=== PATIENT | female | born 1940 | race Caucasian/White ===

== ENCOUNTER 2023-02-26 08:36 | Outpatient (OUT) | payer MEDICARE, OTHER, SELFPAY ==
--- NOTE | 2023-02-26 09:23 | CA_ITS ---
Patient: JEMIMA BRADFORD Exam Date: 02/26/2023 : 1940 Gender:F Ordering : ARIES LOPEZ Admission #: [id number] Family : Order #: [id number] CLICK HERE TO VIEW EXAM ECHOCARDIOGRAM REPORT PROCEDURE: CA ECHO DOPPLER COMPLETE INDICATIONS: Aortic valve disease (AVR; 23mm Avalus pericardial), CABG, MAZE procedure (11/2019), ablation, breast cancer (05/2020), lumpectomy, radiation (ended 08/19/2020) COMPARISON: None. DESCRIPTION: COMPLETE ECHOCARDIOGRAM Real-time transthoracic echocardiography with 2D, M-mode, spectral and color flow Doppler performed. QUALITY: Technical quality was good. LEFT VENTRICLE: Mild dilatation. Proximal septal hypertrophy (sigmoid septum). LV EF: Normal left ventricular ejection fraction, (>55%). DIASTOLIC: Unable to assess diastolic function. ATRIAL SEPTUM: Visually appears intact. LEFT ATRIUM: Severe dilatation. RIGHT ATRIUM: Moderate dilatation. RIGHT VENTRICLE: Mildly enlarged. Systolic function appears preserved. TRICUSPID VALVE: Normal mobility and thickness. Mild regurgitation. Doppler studies reveal mildly (35-45) elevated right sided pressures. RVSP 35 mmHg MITRAL VALVE: Moderately thickened with decreased mobility. Mild mitral valve stenosis. Moderate mitral annular calcification. Mild mitral regurgitation. AORTIC VALVE: Bio-Prosthetic valve appears well seated in the aortic position with normal Doppler flow. DVI 0.7. Trivial aortic regurgitation. AORTIC ROOT: Normal diameter and appearance. PULMONIC VALVE: Normal thickness and mobility. No stenosis. Trivial regurgitation. PERICARDIUM: No evidence of pericardial effusion. IVC: IVC is normal in size with no collapse. CONCLUSION: 1. Global left ventricular systolic function is normal; visually estimated ejection fraction is 60 to 65%; no significant wall motion abnormalities 2. Unable to assess diastolic function 3. The right ventricle is mildly enlarged with normal systolic function 4. Biatrial enlargement 5. Mild tricuspid regurgitation; mildly elevated right ventricular systolic pressure 6. Mild mitral regurgitation; mild mitral valve stenosis 7. A bioprosthetic aortic valve is seen with normal Doppler flow Adult Echocardiography Procedure Report Left Ventricle LVEDD (3.7 - 5.6 cm): 5.53 cm LVESD (2.2 - 4.0 cm): 4.28 cm LVIVS thickness (0.6 - 1.2 cm): 2.09 cm LVPW thickness (0.5 - 1.0 cm): 1.21 cm LVOT Max Gradient: 5.02 mm[Hg] LVOT Area (cm2): 1.12 m/s Peak Velocity (LVOT): 1.12 m/s Mean Velocity (LVOT): 0.78 m/s LVOT Diameter 1.80 cm Left Atrium LA Volume Index (2D A2C): 50.18 ml/m2 Left Atrium Systolic Dimension: 5.51 cm Mitral Valve MV E to A Ratio: 5.27 Mitral Valve A-Wave Peak Velocity: 0.26 m/s Mitral Valve E-Wave Peak Velocity: 1.38 m/s Right Ventricle Aorta AO Root Diam: 2.98 cm Ascending Ao Diam: 3.04 cm Aortic Valve AoV Area (Peak Roscoe): 1.70 cm2, 1.70 cm2 AoV Area (VTI): 1.75 cm2, 1.75 cm2 Peak Velocity(Antegrade Flow): 1.68 m/s Peak Gradient(Antegrade Flow): 11.30 mm[Hg] Mean Velocity(Antegrade Flow): 1.19 m/s Mean Gradient(Antegrade Flow): 6.30 mm[Hg] Velocity Time Integral: 41.13 cm Tricuspid Valve Peak Velocity (Regurgitant Flow): 2.60 m/s Pulmonic Valve Peak Velocity: 1.20 m/s Peak Gradient: 5.79 mm[Hg], 5.70 mm[Hg] Right Atrium Right Atrium Systolic Pressure: 67.14 ml, 67.14 ml Dictated by: Kendy Wang M.D. on 02/27/2023 at 10:35 Approved by: Kendy Wang M.D. on 02/27/2023 at 10:40
== END 2023-02-26 08:37 | disposition home or self-care (01) ==
LOC: CARD 08:37
PROVIDERS: Visit Provider Nurse Practitioner
DX: I08.3 Combined rheumatic disorders of mitral, aortic and tricuspid valves (principal)
CPT/HCPCS: 93306

== ENCOUNTER 2023-06-26 18:45 | Emergency (ER) | payer MEDICARE, OTHER, SELFPAY ==
[2023-06-26] VITALS (7 sets, daily range): BP systolic 98–112; BP diastolic 54–76; PULSE 62–80; RESP 17–18; TEMP 36.9; O2SAT 97–98
--- NOTE | 2023-06-26 19:10 | ECG_ITS ---
[facility] Test Date: 2023-06-26 Pat Name: JEMIMA BRADFORD Department: Room: - Gender: Female [employer]pper: : 1940 Requested By: [id number] Order Number: [id number] Reading MD: RAIZA CLINTON Measurements Intervals Bude Rate: 67 P: 68 WA: 172 QRS: 46 QRSD: 90 T: 77 QT: 410 QTc: 426 Interpretive Statements 1100 Sinus rhythm 9110 normal ECG No previous ECG available for comparison Electronically Signed On 06-27-2023 7:13:33 EST by RAIZA CLINTON
--- NOTE | 2023-06-26 20:04 | ED_ITS ---
HPI - URI/Sore Throat General Chief Complaint: Upper Respiratory Infection Stated Complaint: SOB COVID + Time Seen by Provider: 06/26/23 19:08 Source: patient and family Limitations: no limitations History of Present Illness HPI Narrative: 83-year-old female with a history of asthma presents for evaluation of headache, body aches, chills and cough. She tested positive for Covid 19. She has had most of the vaccinations but has not had the last vaccination. Her daughter brought her to the emergency department after her father called her stating that he could not get the patient out of bed. The patient states that she took some Tylenol for her headache a while back and her headache is resolving. She has been sipping on 7-Up without recurrent vomiting. Earlier today she cannot keep anything down. She also has some bruising to her right lower extremity after hitting her lower leg on the bed last week. She hit the lower right tibbia- fibula on the bed and bruising has settled down into the foot and ankle area. She has no calf pain or swelling. She is on Eliquis. Related Data Home Medications Medication Instructions Recorded Confirmed anastrozole 1 mg tablet 1 mg PO DAILY 06/26/23 06/26/23 apixaban 5 mg tablet (Eliquis) 5 mg PO DAILY 06/26/23 06/26/23 aspirin 81 mg capsule 81 mg PO DAILY 06/26/23 06/26/23 bumetanide 1 mg tablet 1 mg PO DAILY 06/26/23 06/26/23 esomeprazole magnesium 40 mg 40 mg PO DAILY 06/26/23 06/26/23 capsule,delayed release esomeprazole magnesium 40 mg 40 mg PO DAILY 06/26/23 06/26/23 capsule,delayed release (Nexium) levothyroxine 50 mcg tablet 50 mcg PO DAILY 06/26/23 06/26/23 magnesium 250 mg tablet 250 mg PO DAILY 06/26/23 06/26/23 metoprolol tartrate 50 mg tablet 12.5 mg PO DAILY 06/26/23 06/26/23 (Lopressor) montelukast 10 mg tablet 10 mg PO DAILY 06/26/23 06/26/23 rosuvastatin 40 mg tablet 40 mg PO DAILY 06/26/23 06/26/23 spironolactone 25 mg tablet 25 mg PO DAILY 06/26/23 06/26/23 Allergies Allergy/AdvReac Type Severity Reaction Status Date / Time chlorpromazine Allergy Mild Hives Verified 06/26/23 19:14 [From Thorazine] hylan G-F 20 [From Synvisc] Allergy Mild swelling Verified 06/26/23 19:13 nitrous oxide AdvReac Mild Nausea Verified 06/26/23 19:14 byaxin Allergy Mild Uncoded 06/26/23 19:14 Review of Systems ROS Status of ROS 10 or more systems reviewed and unremark able except as noted in history and below Exam Narrative Exam Narrative: Nurses note and vital signs reviewed and patient is not hypoxic. General: The patient appears well and in no apparent distress. Patient is resting comfortably on cart. Skin: Warm, dry, no pallor noted. There is no rash noted. Head: Normocephalic, atraumatic Eye: Normal conjunctiva, no drainage, EOMI. PERRL Ears, Nose, Mouth, and Throat: Deferred, patient wearing mask Cardiovascular: Regular Rate and Rhythm Ejection murmur grade 2 out of 5, pulses are brisk and equal bilaterally Respiratory: Patient is in no distress, no accessory muscle use, lungs are Clear with occasional expiratory wheezing Back: non-tender, no CVA tenderness bilaterally to percussion. GI: Normal bowel sounds, no tenderness to palpation, no masses appreciated. No rebound, guarding, or rigidity noted. Musculoskeletal: The patient has no evidence of calf tenderness, Pitting edema noted, there is tenderness with bruising to the distal right fibula and lateral malleolus and medial aspect of the midfoot Neurological: A&O x4, normal speech Psychiatric: Cooperative Constitutional Vital Signs, click to edit/add: Last Vital Signs Temp 98.4 F 06/26/23 19:05 Pulse 70 06/26/23 20:04 Resp 18 06/26/23 20:04 BP 104/54 06/26/23 22:36 Pulse Ox 97 06/26/23 20:04 O2 Del Method Room Air 06/26/23 20:04 Course Vital Signs Vital signs: Vital Signs Temperature 98.4 F 06/26/23 19:05 Pulse Rate 62 06/26/23 19:05 Respiratory Rate 18 06/26/23 19:05 Blood Pressure 106/57 06/26/23 19:05 Pulse Oximetry 97 06/26/23 19:05 Oxygen Delivery Method Room Air 06/26/23 19:05 Temperature 98.4 F 06/26/23 19:05 Pulse Rate 70 06/26/23 20:04 Respiratory Rate 18 06/26/23 20:04 Blood Pressure 104/54 06/26/23 22:36 Pulse Oximetry 97 06/26/23 20:04 Oxygen Delivery Method Room Air 06/26/23 20:04 MDM - URI/Sore Throat MDM Narrative Medical decision making narrative: This 83-year-old female with a history of chronic renal disease 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 She tested positive for COVID 19 at home. Her lungs are clear. She have a history of asthma but was not wheezing. Her abdomen was soft. She is not vomiting in the emergency department but had been vomiting earlier in the day and was so weak that she could not get out of bed. She was brought emergency department by private vehicle. Her daughter is at her bedside. EKG done upon arrival was a sinus rhythm with no acute changes. IV was placed and she was medicated with IV fluids and Zofran and Given an albuterol MDI. Routine labs are reviewed. She has a normal white count and hemoglobin. Her creatinine is elevated and consistent with her chronic renal disease. She has an elevated d-dimer and CT of the chest does not show any acute pulmonary embolism but does show chronic changes of her lung resections and some changes in the right middle lobe which could be infectious or part of an atypical inflammatory process. He was given a 1st dose of Zithromax in the e mergency department and will be discharged home with a prescription for Zithromax use for the next 4 days in light of this abnormality in the right lung.I also x-rayed the right lower extremity because the patient had some bruising to the right lower 70 after hitting her leg on her bed frame. On reevaluation she is feeling better and wishes to be discharged home. She does request a prescription for Paxlovid renal dosing. Medical Records Medical records narrative: The [address] [address] XRay Report Signed Patient: JEMIMA BRADFORD MR#: [id number] : 1940 Acct:[id number] Age/Sex: 83 / F ADM Date: 06/26/23 Loc: ER Attending Dr: Ordering Physician: Karla Grace Date of Service: 06/26/23 Procedure(s): XR tibia fibula RT 2V Accession Number(s): [id number] cc: Karla Grace; Physician,Non-Staff Alfred~ [facility] [place] [id number] Patient Name: JEMIMA BRADFORD MRN: [id number] date: 1940 Sex: F Assigned Patient Location: ER Current Patient Location: ER Accession/Order Number: [id number] Exam Date: 06/26/2023 22:05 Report Date: 06/26/2023 22:27 At the request of: KARLA GRACE Procedure: XR tibia fibula RT 2V EXAM: XR tibia fibula RT 2V HISTORY: Leg pain COMPARISON: None. TECHNIQUE: 4 views FINDINGS: Status post long stem total knee replacement arthroplasty. The visualized prosthesis exhibits no abnormality. No lucency at the bone cement or cement prosthetic interfaces. No fracture, dislocation, subluxation or lesion of the osseous structures. The hindfoot joint spaces are unremarkable for patient's age. XR/XR tibia fibula RT 2V IMPRESSION: [place] [address] CT Scan Report Signed Patient: JEMIMA BRADFORD MR#: [id number] : 1940 Acct:[id number] Age/Sex: 83 / F ADM Date: 06/26/23 Loc: ER Attending Dr: Ordering Physician: Karla Grace Date of Service: 06/26/23 Procedure(s): CT angio chest Accession Number(s): [id number] cc: Physician,Non-Staff MKulwinder~ [facility] [place] [id number] Patient Name: JEMIMA BRADFORD MRN: [id number] date: 1940 Sex: F Assigned Patient Location: ER Current Patient Location: ER Accession/Order Number: [id number] Exam Date: 06/26/2023 21:50 Report Date: 06/26/2023 22:37 At the request of: KARLA MARKER Procedure: CT angio chest EXAM: CT angio chest TECHNIQUE: CT angiogram with contrast performed of the chest including multi planar reformatted images and maximum intensity projection images. 3-D volume rendering was created. Dose reduction techniques were achieved by using automated exposure control and/or adjustment of mA and/or kV according to patient size and/or use of iterative reconstruction technique. HISTORY: Covid positive yesterday. Headache. Weakness. Nausea, fatigue and fever. R/O PE COMPARISON: PET scan 04/11/2022 FINDINGS: Neck and Axilla: No lower neck or axillary lymphadenopathy. Mediastinum and Diamond: No hilar or mediastinal lymphadenopathy. Heart and Major Vessels: Coronary calcification. Atrial appendage clip noted. No pericardial effusion. 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 Thoracic aorta is normal caliber. Lung Alexis: Prior partial left pneumonectomy. Linear atelectasis and/or scarring in the lower lobes and right middle lobe. Mild hazy airspace opacity medially in the right middle lobe. Lung field evaluation is limited by breathing motion artifact. Pleural Spaces: No significant pleural effusion. No pneumothorax. Upper Abdomen: No acute abnormality identified. Chest Wall: No acute abnormality. CT/CT angio chest IMPRESSION: No evidence for acute pulmonary embolus. Small hazy airspace opacity medially in the right middle lobe. This is nonspecific but could represent an atypical inflammatory or infectious process. Electronically authenticated by: TAVARES PAYTON Date: 06/26/2023 22:37 Lab Data Labs: Lab Results 06/26/23 Range/Units 19:50 WBC 9.4 (4.0-11.0) 10^3/uL RBC 4.51 (4.20-5.40) 10^6/uL Hgb 12.8 (12.0-16.0) g/dL Hct 40.8 (36.0-48.0) % MCV 90.5 (81.0-99.0) fL MCH 28.4 (26.7-34.0) pg MCHC 31.4 (29.9-35.2) g/dL RDW 16.1 H (11.0-15.0) % Plt Count 135 L (150-450) 10^3/uL MPV 11.0 (9.5-13.5) fL Neut % (Auto) 75.7 H (43.0-75.0) % Lymph % (Auto) 10.7 L (20.5-60.0) % [place] % (Auto) 12.4 H (1.7-12.0) % Eos % (Auto) 0.3 L (0.9-7.0) % Baso % (Auto) 0.5 (0.2-2.0) % Neut # (Auto) 7.1 H (1.4-6.5) 10^3/uL Lymph # (Auto) 1.0 L (1.2-3.8) 10^3/uL [place] # (Auto) 1.2 H (0.3-0.8) 10^3/uL Eos # (Auto) 0.0 (0.0-0.7) 10^3/uL Baso # (Auto) 0.1 (0.0-0.1) 10^3/uL Abs Immat Gran (auto) 0.04 H (0.00-0.03) 10^3/uL Imm/Tot Granulo (auto) 0.4 (0.0-0.5) % D-Dimer 1.25 H* (<=0.59) mg/L FEU Sodium 137 (136-145) mmol/L Potassium 3.4 L (3.5-5.1) mmol/L Chloride 101 (98-107) mmol/L Carbon Dioxide 27.5 (21.0-32.0) mmol/L Anion Gap 11.9 BUN 23.0 H (7.0-18.0) mg/dL Creatinine 1.47 H (0.55-1.02) mg/dL Est GFR ( Amer) 41 L (>=60) Est GFR (Non-Af Amer) 34 L (>=60) BUN/Creatinine Ratio 15.6 Glucose 117 H (74-106) mg/dL Calcium 9.6 (8.5-10.1) mg/dL Total Bilirubin 0.6 (0.2-1.0) mg/dL AST 22 (15-37) U/L ALT 21 (14-59) U/L Alkaline Phosphatase 93 (46-116) U/L Troponin I High Sens 12.8 (4.0-51.3) pg/mL NT-Pro-B Natriuret Pep 1178.0 (<=1800.0) pg/mL Total Protein 7.5 (6.4-8.2) g/dL Albumin 3.7 (3.4-5.0) g/dL Globulin 3.8 g/dL Albumin/Globulin Ratio 1.0 ECG Data Attestation: I personally reviewed and interpreted this ECG as follows: (Sinus rhythm at 67 beats for minute, normal axis, normal intervals, no acute ST segment elevation or T-wave inversion) Discharge Plan Discharge Chief Complaint: Upper Respiratory Infection Clinical Impression: COVID-19, Chronic renal disease Patient Disposition: Home, Self-Care Time of Disposition Decision: 22:54 Condition: Good Prescriptions / Home Meds: No Action metoprolol tartrate [Lopressor] 50 mg tablet 12.5 mg PO DAILY anastrozole 1 mg tablet 1 mg PO DAILY Eliquis 5 mg tablet 5 mg PO DAILY bumetanide 1 mg tablet 1 mg PO DAILY esomeprazole magnesium 40 mg capsule,delayed release(DR/EC) 40 mg PO DAILY levothyroxine 50 mcg tablet 50 mcg PO DAILY montelukast 10 mg tablet 10 mg PO DAILY rosuvastatin 40 mg tablet 40 mg PO DAILY spironolactone 25 mg tablet 25 mg PO DAILY esomeprazole magnesium [Nexium] 40 mg capsule,delayed release(DR/EC) 40 mg PO DAILY aspirin 81 mg capsule 81 mg PO DAILY magnesium 250 mg tablet 250 mg PO DAILY Instructions: Chronic Kidney Disease (ED), COVID-19 (Coronavirus Disease 2019) (ED), COVID-19 and Chronic Health Conditions (ED), COVID-19: Slow the Coronavirus Spread (ED) Stand Alone Forms: Portal Instructions Referrals: Physician,Non-Staff, MD [Primary Care Provider] - 1 week
[2023-06-26] MEDS: 0.9 % SODIUM CHLORIDE 1,000 ML 1000 ML IV (20:17)
[2023-06-26] MEDS: ONDANSETRON PF 4 MG/2 ML VIAL IV (20:18)
[2023-06-26] MEDS: ALBUTEROL SULFATE 200 PUFF/6.7 GM INHALER IH (20:23)
[2023-06-26 20:55] LABS: Troponin I High Sensitivity 12.8 pg/mL (4.0-51.3)
--- NOTE | 2023-06-26 20:56 | XR_ITS ---
[facility] [place] [id number] Patient Name: JEMIMA BRADFORD MRN: [id number] date: 1940 Sex: F Assigned Patient Location: ER Current Patient Location: ER Accession/Order Number: [id number] Exam Date: 06/26/2023 22:05 Report Date: 06/26/2023 22:27 At the request of: LAUREN MARKER Procedure: XR tibia fibula RT 2V EXAM: XR tibia fibula RT 2V HISTORY: Leg pain COMPARISON: None. TECHNIQUE: 4 views FINDINGS: Status post long stem total knee replacement arthroplasty. The visualized prosthesis exhibits no abnormality. No lucency at the bone cement or cement prosthetic interfaces. No fracture, dislocation, subluxation or lesion of the osseous structures. The hindfoot joint spaces are unremarkable for patient's age. XR/XR tibia fibula RT 2V IMPRESSION: No visualized abnormality Electronically authenticated by: DYANA MORGAN Date: 06/26/2023 22:27
[2023-06-26 21:01] LABS: D Dimer 1.25 mg/L FEU (<=0.59)
[2023-06-26 21:12] LABS: Basophils Absolute Auto 0.1 10^3/uL (0.0-0.1); Basophils Percent Auto 0.5 % (0.2-2.0); Eosinophils Percent Auto 0.3 % (0.9-7.0); Hematocrit 40.8 % (36.0-48.0); Hemoglobin 12.8 g/dL (12.0-16.0); Immature Granulocytes Abs Auto 0.04 10^3/uL (0.00-0.03); Immature Granulocytes Pct Auto 0.4 % (0.0-0.5); Lymphocytes Percent Auto 10.7 % (20.5-60.0); Mean Corpuscular HGB Conc 31.4 g/dL (29.9-35.2); Mean Corpuscular Hemoglobin 28.4 pg (26.7-34.0); Mean Corpuscular Volume 90.5 fL (81.0-99.0); Monocytes Absolute Auto 1.2 10^3/uL (0.3-0.8); Monocytes Percent Auto 12.4 % (1.7-12.0); Neutrophils Absolute Auto 7.1 10^3/uL (1.4-6.5); Neutrophils Percent Auto 75.7 % (43.0-75.0); Platelet Count 135 10^3/uL (150-450); Red Blood Count 4.51 10^6/uL (4.20-5.40); Red Cell Distribution Width 16.1 % (11.0-15.0); White Blood Count 9.4 10^3/uL (4.0-11.0)
--- NOTE | 2023-06-26 21:22 | CT_ITS ---
[address] [address] Patient Name: JEMIMA BRADFORD MRN: [id number] date: 1940 Sex: F Assigned Patient Location: ER Current Patient Location: Accession/Order Number: [id number] Exam Date: 06/26/2023 21:50 Report Date: 06/26/2023 22:37 At the request of: LAUREN MARKER Procedure: CT angio chest EXAM: CT angio chest TECHNIQUE: CT angiogram with contrast performed of the chest including multi planar reformatted images and maximum intensity projection images. 3-D volume rendering was created. Dose reduction techniques were achieved by using automated exposure control and/or adjustment of mA and/or kV according to patient size and/or use of iterative reconstruction technique. HISTORY: Covid positive yesterday. Headache. Weakness. Nausea, fatigue and fever. R/O PE COMPARISON: PET scan 04/11/2022 FINDINGS: Neck and Axilla: No lower neck or axillary lymphadenopathy. Mediastinum and Diamond: No hilar or mediastinal lymphadenopathy. Heart and Major Vessels: Coronary calcification. Atrial appendage clip noted. No pericardial effusion. 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 Thoracic aorta is normal caliber. Lung Alexis: Prior partial left pneumonectomy. Linear atelectasis and/or scarring in the lower lobes and right middle lobe. Mild hazy airspace opacity medially in the right middle lobe. Lung field evaluation is limited by breathing motion artifact. Pleural Spaces: No significant pleural effusion. No pneumothorax. Upper Abdomen: No acute abnormality identified. Chest Wall: No acute abnormality. CT/CT angio chest IMPRESSION: No evidence for acute pulmonary embolus. Small hazy airspace opacity medially in the right middle lobe. This is nonspecific but could represent an atypical inflammatory or infectious process. Electronically authenticated by: TAVARES PAYTON Date: 06/26/2023 22:37
[2023-06-26 21:27] LABS: Alanine Aminotransferase 21 U/L (14-59); Albumin Level 3.7 g/dL (3.4-5.0); Alkaline Phosphatase 93 U/L (46-116); Anion Gap 11.9; Aspartate Amino Transferase 22 U/L (15-37); BUN Creatinine Ratio 15.6; Bilirubin Total 0.6 mg/dL (0.2-1.0); Calcium 9.6 mg/dL (8.5-10.1); Carbon Dioxide 27.5 mmol/L (21.0-32.0); Chloride 101 mmol/L (98-107); Estimated GFR (African America 41 (>=60); Estimated GFR (Non-African Ame 34 (>=60); Globulin 3.8 g/dL; Glucose 117 mg/dL (74-106); Potassium 3.4 mmol/L (3.5-5.1); Sodium 137 mmol/L (136-145); Total Protein 7.5 g/dL (6.4-8.2)
[2023-06-26] MEDS: 0.9 % SODIUM CHLORIDE 1,000 ML 125 ML IV (22:39)
[2023-06-26] MEDS: AZITHROMYCIN 250 MG TABLET 500 MG PO (23:40)
== END 2023-06-26 23:47 | disposition home or self-care (01) ==
PROVIDERS: Emergency Provider Emergency Medicine
DX: U07.1 COVID-19 (principal); R06.02 Shortness of breath; Z28.311 Partially vaccinated for COVID-19; Z79.82 Long term (current) use of aspirin; Z79.899 Other long term (current) drug therapy; N18.9 Chronic kidney disease, unspecified; Z85.118 Personal history of other malignant neoplasm of bronchus and lung; R42 Dizziness and giddiness; J45.909 Unspecified asthma, uncomplicated; R79.89 Other specified abnormal findings of blood chemistry
CPT/HCPCS: 36415; 71275; 73590; 80053; 83880; 84484; 85025; 85378; 93005; 94640; 96361; 96374; 99285; Q9967

== ENCOUNTER 2023-09-18 09:58 | Outpatient (OUT) | payer MEDICARE, OTHER, SELFPAY ==
[2023-09-18 11:09] LABS: Anion Gap 12.8; BUN Creatinine Ratio 18.4; Carbon Dioxide 29.6 mmol/L (21.0-32.0); Chloride 105 mmol/L (98-107); Estimated GFR (African America 45 (>=60); Estimated GFR (Non-African Ame 37 (>=60); Glucose 105 mg/dL (74-106); Potassium 4.4 mmol/L (3.5-5.1); Sodium 143 mmol/L (136-145)
[2023-09-18 11:11] LABS: Creatinine Urine Random 35.33 mg/dL (20.00-300.00); Total Protein Urine Random <6.0 mg/dL (<=11.9)
[2023-09-19 13:08] LABS: PTH, Intact 87 pg/mL (15-65)
[2023-09-19 15:08] LABS: Calcium, Ionized, Serum 5.1 mg/dL (4.5-5.6)
== END 2023-09-18 09:59 | disposition home or self-care (01) ==
LOC: LAB 09:59
DX: N18.30 Chronic kidney disease, stage 3 unspecified (principal)
CPT/HCPCS: 36415; 80048; 82306; 82330; 82570; 83970; 84156

== ENCOUNTER 2023-10-29 09:07 | Outpatient (OUT) | payer MEDICARE, OTHER, SELFPAY ==
--- NOTE | 2023-10-29 09:00 | CA_ITS ---
Patient Name: JEMIMA BRADFORD MR#: [id number] : 1940 Exam Date: 10/29/2023 Ordering Doctor: Cameron Pappas ECHOCARDIOGRAM REPORT PROCEDURE: CA ECHO DOPPLER COMPLETE INDICATIONS: AVR 23mm Avalus pericardial, CABG, MAZE procedure, ablations COMPARISON: None. DESCRIPTION: COMPLETE ECHOCARDIOGRAM Real-time transthoracic echocardiography with 2D, M-mode, spectral and color flow Doppler performed. QUALITY: Technical quality was good. 65 , 187#, BSA 1.92 m2 ,BP 138/64 LEFT VENTRICLE: Normal chamber size. Mildly increased left ventricular wall thickness with sigmoid septum. LV EF: Global left ventricular systolic function is normal; visually estimated ejection fraction is 55 to 60%. No obvious wall motion abnormalities. DIASTOLIC: Unable to assess diastolic function. ATRIAL SEPTUM: Visually appears intact. LEFT ATRIUM: Severe dilatation. RIGHT ATRIUM: Mild dilatation. RIGHT VENTRICLE: Normal chamber size. Right ventricular systolic function is reduced. TRICUSPID VALVE: Normal mobility and thickness. Mild regurgitation. Doppler studies reveal mildly (35-45) elevated right sided pressures. RVSP 35 mmHg MITRAL VALVE: Moderately thickened with decreased mobility. Moderate mitral annular calcification. Trivial mitral regurgitation. MVA 2.1 cm2 AORTIC VALVE: Bio-Prosthetic valve appears well seated in the aortic position with normal Doppler flow. No aortic regurgitation. AORTIC ROOT: Normal diameter and appearance. PULMONIC VALVE: Normal thickness and mobility. No stenosis. Trivial regurgitation. PERICARDIUM: No evidence of pericardial effusion. IVC: IVC does not collapse. CONCLUSION: 1. Global left ventricular systolic function is normal; visually estimated ejection fraction is 55 to 60% 2. The right ventricle is normal in size with reduced systolic function 3. Biatrial enlargement 4. Mild tricuspid regurgitation; mildly elevated right ventricular systolic pressure 5. A bioprosthetic aortic valve is seen with normal Doppler flow Adult Echocardiography Procedure Report Left Ventricle LVEDD (3.7 - 5.6 cm): 4.72 cm LVESD (2.2 - 4.0 cm): 2.71 cm LVIVS thickness (0.6 - 1.2 cm): 1.81 cm LVPW thickness (0.5 - 1.0 cm): 1.02 cm e': 0.14 m/s E - e': 8.76 LVOT Max Gradient: 3.12 mm[Hg] LVOT Area (cm2): 0.88 m/s Peak Velocity (LVOT): 0.88 m/s Mean Velocity (LVOT): 0.58 m/s LVOT Diameter 2.09 cm Left Atrium Left Atrium Systolic Dimension: 5.19 cm Mitral Valve MV E to A Ratio: 3.34 Mitral Valve A-Wave Peak Velocity: 0.35 m/s Mitral Valve E-Wave Peak Velocity: 1.18 m/s Right Ventricle Aorta AO Root Diam: 3.31 cm Aortic Valve AoV Area (Peak Roscoe): 1.95 cm2, 1.95 cm2 AoV Area (VTI): 2.40 cm2, 2.40 cm2 Peak Velocity(Antegrade Flow): 1.55 m/s Peak Gradient(Antegrade Flow): 9.57 mm[Hg] Mean Velocity(Antegrade Flow): 0.93 m/s Mean Gradient(Antegrade Flow): 4.28 mm[Hg] Velocity Time Integral: 31.75 cm Tricuspid Valve Peak Velocity (Regurgitant Flow): 2.09 m/s, 2.60 m/s Pulmonic Valve Peak Gradient: 5.88 mm[Hg], 6.63 mm[Hg] Right Atrium Dictated by: Kendy Wang M.D. on 10/31/2023 at 14:16 Approved by: Kendy Wang M.D. on 10/31/2023 at 14:22
== END 2023-10-29 09:08 | disposition home or self-care (01) ==
LOC: CARD 09:07
PROVIDERS: Visit Provider Internal Medicine Cardiovascular Disease
DX: I08.0 Rheumatic disorders of both mitral and aortic valves (principal)
CPT/HCPCS: 93306

== ENCOUNTER 2023-11-21 12:28 | Outpatient (OUT) | payer MEDICARE, OTHER, SELFPAY ==
[2023-11-21 14:46] LABS: Anion Gap 12.4; BUN Creatinine Ratio 16.9; Calcium 9.9 mg/dL (8.5-10.1); Carbon Dioxide 30.2 mmol/L (21.0-32.0); Chloride 102 mmol/L (98-107); Estimated GFR (African America 48 (>=60); Estimated GFR (Non-African Ame 39 (>=60); Glucose 85 mg/dL (74-106); Potassium 3.6 mmol/L (3.5-5.1); Sodium 141 mmol/L (136-145)
== END 2023-11-21 12:29 | disposition home or self-care (01) ==
LOC: LAB 12:30
DX: Z01.89 Encounter for other specified special examinations (principal); N18.9 Chronic kidney disease, unspecified; D63.1 Anemia in chronic kidney disease; E55.9 Vitamin D deficiency, unspecified
CPT/HCPCS: 36415; 80048

== ENCOUNTER 2024-02-11 14:59 | Outpatient (OUT) | payer MEDICARE, OTHER, SELFPAY ==
[2024-02-11 16:09] LABS: Creatinine Urine Random 32.12 mg/dL (20.00-300.00); Protein Creatinine Ratio Urine 0.21; Total Protein Urine Random 6.8 mg/dL (<=11.9)
[2024-02-11 16:22] LABS: BUN Creatinine Ratio 16.2; Calcium 8.8 mg/dL (8.5-10.1); Chloride 103 mmol/L (98-107); Estimated GFR (African America 54 (>=60); Estimated GFR (Non-African Ame 44 (>=60); Glucose 134 mg/dL (74-106); Sodium 141 mmol/L (136-145)
== END 2024-02-11 15:00 | disposition home or self-care (01) ==
LOC: LAB 15:01
DX: Z01.89 Encounter for other specified special examinations (principal); N18.9 Chronic kidney disease, unspecified; D63.1 Anemia in chronic kidney disease; E55.9 Vitamin D deficiency, unspecified
CPT/HCPCS: 36415; 80048; 82570; 84156

== ENCOUNTER 2024-07-08 12:40 | Outpatient (OUT) | payer MEDICARE, OTHER, SELFPAY ==
[2024-07-08 13:24] LABS: Anion Gap 13.8; BUN Creatinine Ratio 20.3; Calcium 9.6 mg/dL (8.5-10.1); Carbon Dioxide 31.6 mmol/L (21.0-32.0); Chloride 101 mmol/L (98-107); Creatinine Urine Random 226.64 mg/dL (20.00-300.00); Estimated GFR (African America 38 (>=60 mL/min/1.73m^2); Estimated GFR (Non-African Ame 31 (>=60 mL/min/1.73m^2); Glucose 128 mg/dL (74-106); Potassium 3.4 mmol/L (3.5-5.1); Sodium 143 mmol/L (136-145); Total Protein Urine Random 33.6 mg/dL (<=11.9)
== END 2024-07-08 12:41 | disposition home or self-care (01) ==
LOC: LAB 12:41
DX: N18.30 Chronic kidney disease, stage 3 unspecified (principal)
CPT/HCPCS: 36415; 80048; 82570; 84156

== ENCOUNTER 2024-11-10 09:43 | Outpatient (OUT) | payer MEDICARE, OTHER, SELFPAY ==
--- NOTE | 2024-11-10 09:00 | CA_ITS ---
Patient Name: JEMIMA BRADFORD MR#: [id number] : 1940 Exam Date: 11/10/2024 Ordering Doctor: SHARLA DE OLIVEIRA CORRECTION Corrected on: 11/16/2024; ECHOCARDIOGRAM REPORT PROCEDURE: CA ECHO DOPPLER COMPLETE INDICATIONS: Aortic valve stenosis COMPARISON: None. DESCRIPTION: COMPLETE ECHOCARDIOGRAM Real-time transthoracic echocardiography with 2D, M-mode, spectral and color flow Doppler performed. QUALITY: Technical quality was good. LEFT VENTRICLE: Normal chamber size. Thickened septal wall (1.6 cm). No significant left ventricular outflow obstruction. Normal systolic function. LV EF: Normal left ventricular ejection fraction, (65-70%). DIASTOLIC: ATRIAL SEPTUM: Visually appears intact. LEFT ATRIUM: Severe dilatation. RIGHT ATRIUM: Mild dilatation. RIGHT VENTRICLE: Normal chamber size. Normal right ventricular systolic function. TRICUSPID VALVE: Normal mobility and thickness. No stenosis with mild regurgitation. Doppler studies reveal moderately (45-60) elevated right sided pressures. RVSP 52 mmHg MITRAL VALVE: Mildly thickened with normal mobility. Mild mitral valve stenosis. MVA by PHT is 1.93 cm2. Moderate mitral annular calcification. Trivial mitral regurgitation. AORTIC VALVE: Normal trileaflet appearance. No visible sclerosis. Normal leaflet mobility. No evidence of aortic valve stenosis. No aortic regurgitation. AORTIC ROOT: Normal diameter and appearance. PULMONIC VALVE: Normal thickness and mobility. No stenosis. Trivial regurgitation. PERICARDIUM: No evidence of pericardial effusion. IVC: IVC is dilated (2.2 cm), does not fully collapse. PLEURA: CONCLUSION: 1. Moderate concentric left ventricular hypertrophy with increased thickness of the basal septum. No left ventricular outflow tract obstruction is seen. LVEF is 65-70%. 2. Normal right ventricular size and systolic function. 3. No aortic valve stenosis. 4. Mild mitral valve stenosis. 5. Severely dilated left atrium. 6. Mild tricuspid regurgitation. 7. Moderately elevated right sided pressures. RVSP is 52 mmHg. Adult Echocardiography Procedure Report Left Ventricle LVEDD (3.7 - 5.6 cm): 3.95 cm LVESD (2.2 - 4.0 cm): 2.60 cm LVIVS thickness (0.6 - 1.2 cm): 1.60 cm LVPW thickness (0.5 - 1.0 cm): 1.12 cm LVOT Max Gradient: 8.76 mm[Hg] LVOT Area (cm2): 1.48 m/s Peak Velocity (LVOT): 1.48 m/s Mean Velocity (LVOT): 1.08 m/s LVOT Diameter 1.86 cm Left Atrium LA Volume Index (2D A2C): 56.88 ml/m2 Left Atrium Systolic Dimension: 4.41 cm Mitral Valve MV E to A Ratio: 2.83 Mitral Valve A-Wave Peak Velocity: 0.50 m/s Mitral Valve E-Wave Peak Velocity: 1.41 m/s Right Ventricle Aorta AO Root Diam: 2.87 cm Aortic Valve AoV Area (Peak Roscoe): 1.95 cm2, 1.95 cm2 AoV Area (VTI): 1.86 cm2, 1.86 cm2 Peak Velocity(Antegrade Flow): 2.08 m/s, 1.79 m/s Peak Gradient(Antegrade Flow): 17.24 mm[Hg], 12.88 mm[Hg] Mean Velocity(Antegrade Flow): 1.39 m/s, 1.23 m/s Mean Gradient(Antegrade Flow): 9.13 mm[Hg], 6.93 mm[Hg] Velocity Time Integral: 51.47 cm, 45.14 cm Tricuspid Valve Peak Velocity (Regurgitant Flow): 2.54 m/s, 3.04 m/s Pulmonic Valve Mean Gradient: 5.47 mm[Hg] Mean Velocity: 1.09 m/s Peak Velocity: 1.65 m/s, 1.39 m/s Peak Gradient: 7.68 mm[Hg], 10.91 mm[Hg] Right Atrium Right Atrium Systolic Pressure: 68.83 ml, 68.83 ml Dictated by: Storm Blunt M.D. on 11/11/2024 at 14:53 Approved by: Storm Blunt M.D. on 11/11/2024 at 15:00 Dictated by: Storm Blunt M.D. on 11/16/2024 at 17:25 Approved by: Storm Blunt M.D. on 11/16/2024 at 17:25
== END 2024-11-10 09:44 | disposition home or self-care (01) ==
LOC: CARD 09:43
PROVIDERS: Visit Provider Internal Medicine Cardiovascular Disease
DX: I08.0 Rheumatic disorders of both mitral and aortic valves (principal); Z95.2 Presence of prosthetic heart valve
CPT/HCPCS: 93306

== ENCOUNTER 2024-11-19 09:44 | Outpatient (OUT) | payer MEDICARE, OTHER, SELFPAY ==
--- OUTSIDE RECORDS SUMMARY | 2023-06-26 15:00 | XMS_ITS ---
Author Organization [facility] Address [address] [place] [address] Care Team Providers Care Outpatient Coding Specialist Name Role Phone [facility], [facility] Unavailable [phone] REASON FOR VISIT COVID-19 Encounters Encounter Location Date Provider Diagnosis [facility] [address] [place] [address] 06/26/2023 [facility] Plan Of Treatment No Information Progress Notes * Lisa KENNYDOB:1940 (84 yo F)Acc No.[id number]:06/26/2023 IMPORT Patient: Lisa ARAIZA Provider: Abida KEVIN :1940 A ge:83 Y S ex:Female Date:06/26/2023 Phone: Address:[address] [place] [facility] Subjective: * Chief Complaints: * 1 . COVID-19. * Medical History: Objective: * Vitals: Assessment: Plan: * Treatment: * Billing Information: * Visit Code: * Procedure Codes: * Electronic signature of [facility] on 11/19/2024 at 09:47 AM EDT Sign off status: Pending * Provider: Abida DEAL [facility] Date: 1 08/27/2022 Generated for Herman flores/Waldemar/eTransmitting on: 0 11/19/2024 09:47 AM EDT
--- OUTSIDE RECORDS SUMMARY | 2024-11-05 10:30 | XMS_ITS | Encounter Summary ---
Author Organization [facility] Address [address] [place] [address] Care Team Providers Care Armature Inspector Name Role Phone Soraida Sethi MD Primary Care Provider [phone] Reason for Visit * Reason Comments Skin Check Encounter Details Date Type Department Care Team (Late st Contact Info) Description 11/05/2024 10:30 AM EDT Office Visit [facility] [address] [facility] [address] [place] [address] Dior Durand MD [address] [facility] [address] [place] [address] Seborrheic keratosis (Primary Dx); Lentigines; Angioma of skin; Capillary angioma; Seborrheic keratosis, inflamed Social History Tobacco Use Types Packs/Day Years Used Date Smoking Tobacco: Former Cigarettes Smokeless Tobacco: Never Alcohol Use Standard Drinks/Week Comments Never 0 (1 standard drink = 0.6 oz pur e alcohol) Comments No Sex and Gender Information Value Date Recorded Sex Assigned at Not on file Legal Sex Female 6:55 PM EDT Gender Identity Not on file Sexual Orientation Not on file documented as of this encounter Progress Notes * Dior Durand MD - 11/05/2024 10:30 AM EDT Skin Check Location: Patient requests a skin examination from the waist up Dermatologic history: no history of skin cancer, no family history of melanoma Last visit: 1 year ago Established patient Lesions: Location: face, neck and back Duration: year ago Quality: itchy Modifying factors: none Associated symptoms: rough Treatments: used OTC freeze off (neck) All pertinent medical history, medications, and allergies were reviewed. General Exam: alert, oriented to person, place, and time, normal affect, well appearing Unaccompanied A complete skin exam was offered, pt declined. Areas not examined despite medical recommendation: From the waist down Scalp, Examined Head, Face Examined Neck Examined Chest Examined Back Examined Abdomen Examined Right arm Examined Left arm Examined Hands Examined Digits,nails: Examined Patient wearing nail emirati, Denies dark streaks under finger nails Lymphatics: Not examined Skin Exam 1. SEBORRHEIC KERATOSIS (5) Chest (Upper Torso, Anterior), Head - Anterior (Face), Left Arm, Right Arm, Torso - Posterior (Back) Stuck on verrucous, davila-brown papules and plaques. Patient was counseled regarding these benign growths. Removal is normally not necessary, but they may be removed if they are symptomatic or for cosmetic reasons. 2. LENTIGINES Head - Anterior (Face) Scattered davila macules in sun-exposed areas. The patient was informed that lentigines are benign pigmented lesions that occur on sun-exposed andsun-damaged skin. No treatment is necessary. Recommended regular use of broad spectrum sunscreen SPF 30 or higher 3. ANGIOMA OF SKIN Generalized Scattered schultz-red papule(s). The patient was informed that angiomas are benign growths on the the skin. No treatment is necessary. 4. CAPILLARY ANGIOMA Left Buccal Cheek Scattered schultz-red papule(s). The patient was informed that angiomas are benign growths on the the skin. No treatment is necessary. 5. SEBORRHEIC KERATOSIS, INFLAMED (9) Left Flank, Left Lower Back (2), Left Congregation, Neck - Anterior, Neck - Posterior (4) Ulen and brown stuck on verrucous scaly papule with surrounding erythema The patient was informed that symptomatic seborrheic keratoses are benign growths that become inflamed, itchy, tender, traumatized, caught on clothing, or bleed. Symptomatic lesions can be treated with cryotherapy or curretage. Thicker lesions treated with cryotherapy may require more than one treatment. The patient was instructed to notify the office if abnormal redness or tenderness develops atthe treatment site. Cryotherapy today, see procedure note. Diagnosis: Inflamed seborrheic keratosis Indication: Inflamed Consent: Verbal consent was obtained and risks were discussed, including, but not limited to risks of scarring, darker or waterside worker pigmentary changes, recurrence, incomplete removal and infection. Method: Liquid nitrogen was used to treat the lesion(s) with two 5-10 second freeze-thaw cycles Number of lesions treated: 9 Post-procedure instructions: Instructions were given orally and in writing. The office will be contacted if the lesion fails to resolve despite treatment, or if a side effect develops such as abnormal crusting, scabbing, redness or tenderness Cryotherapy, skin lesion - Left Flank, Left Lower Back (2), Left Congregation, Neck - Anterior, Neck - Posterior (4) Next Visit: 1 year skin exam documented in this encounter Plan of Treatment Upcoming Encounters Date Type Department Care Team (Late st Contact Info) Description 02/18/2025 10:45 AM EDT Office Visit [facility] [address] [phone] Fred Frey, DO [address] [facility] [address] [place] [address] 11/09/2025 10:15 AM EDT Office Visit [facility] [address] [facility] [address] [place] [id number] Dior Durand MD [address] [facility] [address] [place] [address] documented as of this encounter Procedures Procedure Name Priority Date/Time Associated Diagnosis Comments CRYOTHERAPY SKIN LESION Routine 11/06/19 10:47 AM EDT Seborrheic keratosis, inflamed documented in this encounter Results * Cryotherapy, skin lesion (11/05/2024 10:47 AM EDT) us Dior Durand MD DERM PROCEDURE ORDERABLES Fin al Result documented in this encounter Visit Diagnoses Diagnosis Seborrheic keratosis- Primary Lentigines Angioma of skin Capillary angioma Nevus, non-neoplastic Seborrheic keratosis, inflamed documented in this encounter Care Teams Armature Inspector Relationship Specialty Start Date End Date Soraida Sethi MD [address] [place], [place] [id number] PCP - General Family Medicine 01/15/23 documented as of this encounter
--- OUTSIDE RECORDS SUMMARY | 2024-11-19 09:00 | XMS_ITS | Encounter Summary ---
Author Organization [facility] Address [address] [place] [address] Care Team Providers Care Top Waddy Name Role Phone Jasmyne Casillas MD Primary Care Provider [phone] Encounter Details Date Type Department Care Team (Late st Contact Info) Description 11/19/2024 9:00 AM EDT Office Visit [facility] Heart at [facility] [address] [place] [address] Kendy Wang MD [address] [facility] [place] [place] [address] Coronary arteriosclerosis (Primary Dx); Mitral valve problem; Nonrheumatic aortic valve stenosis; Atypical atrial flutter (CMS/HCC); History of aortic valve replacement; Aortic valve disorder; Shortness of breath Social History Tobacco Use Types Packs/Day Years Used Date Smoking Tobacco: Former Cigarettes 1 1972 Smokeless Tobacco: Never Alcohol Use Standard Drinks/Week Comments Not Currently 0 (1 standard drink = 0.6 oz pur e alcohol) [place] Safety & Environment Answer Date Rec orded Fear of Current or Ex-Partner Not on file Emotionally Abused Not on file 08/22/2023 Physically Abused Not on file 08/22/2023 Sexually Abused Not on file 08/22/2023 Physically or Sexually Abused Not on file Sex and Gender Information Value Date Recorded Sex Assigned at Not on file Gender Identity Not on file Sexual Orientation Not on file documented as of this encounter Last Filed Vital Signs Vital Sign Reading Time Taken Comments Blood Pressure 114/95 11/19/2024 9:08 AM EDT Pulse 55 11/19/2024 9:08 AM EDT Temperature - - Respiratory Rate - - Oxygen Saturation 97% 11/19/2024 9:08 AM EDT Inhaled Oxygen Concentration - - Weight 79.8 kg (176 lb) 11/19/2024 9:08 AM EDT Height 162.6 cm (5' 4 ) 11/19/2024 9:08 AM EDT Body Mass Index 30.21 11/19/2024 9:08 AM EDT documented in this encounter Progress Notes * Kendy Wang MD - 11/19/2024 9:00 AM EDT Images from the original note were not included. [facility] Follow up Prior HPI: Lisa Guzman is a 84 y.o. year old with past medical history of Aortic valve replacement with 23 mm Avalus pericardial valve, Breast CA s/p XRT, Coronary artery bypass grafting x1, LIMAto LAD + Extended left atrial CryoMaze procedure and exclusion of left atrial appendage using 45 mmAtriClip device, Aortic root enlargement with pericardial patch using Nicks technique with h/o of atrial fibrillation/ flutter with RVR who underwent left atrial flutter ablation. She has been in SR since. She was recently Dx with lung CA and BX proven for adeno CA. She is being planned for lobectomy at [facility] AV replacement+ MAZE, s/p Atypical LA flutter ablation 10/20/24 Pt doing well and recovering from knee Sx Pulse check: SR 04/07/24 Pt is here for edema. Pt denies chest pain, palpatations, and dizziness. she is supposed to get some injection for her left knee arthritis. Her pulse check revealed she is in sinus rhythm. She is currently taking Eliquis 5 mg alternating with 2.5 mg. Last creatinine on 02/11/2024 was normal. 01/14/24 Patient here for 3 mo follow up PAF, HFpEF, and valve disorder. She is very bruised from Eliquis and wants to know if she should be on the lower dose since she is over 81 years old. Denies chest pain, palpitations, and lightheadedness/syncope. Denies abnormal bleeding on Eliquis. She is taking Bumex every other day due to constipation she says. C/o worsening ROGEL but denies LE edema. she is planning to get the knee surgery done. patient had an echocardiogram in October 29, 2023 which revealed normal EF of 55 to 60% with mild TR and a bioprosthetic aortic valve was seen with good flow. 11/19/2024 She has noticed increased swelling in the lower extremities, 7 pound weight gain over multiple weeks, and worsening shortness of breath She denies chest pain No orthopnea, no paroxysmal, dyspnea Review of Systems Constitutional: Positive for malaise/fatigue. Cardiovascular: Positive for dyspnea on exertion and leg swelling. Respiratory: Positive for cough, shortness of breath and wheezing. ECHO 10/01) 10/15/23 Patient here for 6 mo follow up PAF, CAD, and hypertension. C/o SOB, LE edema, and weight gain. C/owheezing. Denies chest pain and bleeding on Eliquis. she is on Bumex 1 mg which has been replaced for Lasix. she is also on Aldactone. She states that she is not being diuresing as well and her last creatinine was 1.34 that was done at [facility] on 09/18/2023 Which is an improvement from 1.4 that was done in May 2023. EKG 06/26/23 SR. 04/01/23 Patient for follow-up of her echocardiogram aortic valve replacement is well- seated with no concerns EF 55% shows mildly elevated right-sided pressures. She states she has noticed about 2 to 3 pound weight gain over the last few weeks that she normally weighs about 179 pounds and has been weighing approximately 182 pounds per her home scale and per clinic scale 02/13/23: She is here for follow up d/t pcp noted her mumur sounds worse on ausculatation Discussed with patient we will consider echo to evaluate for worsening valvular abnormalities considering her hx of AVR 12/04/22 Patient had nuclear stress test which was negative for ischemia. she is supposed to follow-up with [facility] for her oncology follow-up. he tells me they have mentioned to him that she does not have any metastasis. 09/18/22 Patient has experienced shortness of breath since she had surgery. she was doing well prior to it but continues to have this. There is no swelling of the feet and she is in sinus rhythm but bradycardic. she has just finished a course of amiodarone. Patient underwent left robotic-assisted anatomic lingular sparing upper lobectomy: S1, S2, S3; Mediastinal lymph node dissection, nodes: 5, 7, 9, 10, 11 and 12; Cryoanalgesia procedure, interspaces 5- 7 on 06/13/22 for a Left upper lobe adenocarcinoma at [facility] ([place] this was complicated by left apical hydropneumothorax for which chest drain was placed. she had developed atrial fibrillation at the time and was discharged on Eliquis. she experienced shortness of breath which seems to have stayed the same. although she does walk on a treadmill she is able to do so for just 4 minutes and pulse oximetry reading at home shows saturation of 94 to 97%. he was evaluated by certified credit counselor for theabove and they had changed her medication from Accolate to Singulair for cost reasons. EKG 09/18/22 SR EK05/15/22 SR 02/27/22 SR 08/11/21 SR 05/30/21 SR 09/04/2020 A. fib 06/14/2020 shows sinus rhythm 03/22/2020 revealed sinus rhythm On prior studies from 2019 up to 2015 in our system reveals sinus rhythm EP Study 1. Persistent mitral isthumus atrial flutter s/p ablation to SR: anterior mitral line and blation of Mitral isthmus line (LIPV to MA). 2. Prior surgical cryo-PVI+ Mitral isthmus line ablation+ posterior box isolation+ JACKY ligation. 3. Ablation of CTI flutter. 4. EP study revealing no retrograde accessory pathway. 5. Elevated LA filling pressures. Echocardiogram 09/14/2020 bioprosthetic aortic valve with with severe left atrial dilatation and moderate right atrial dilatation Reveals ejection fraction of 55% DVI of 0.55 and no evidence of stenosis. Moderate TRseen 02/10/2020 reveals a normal EF of 60% Echocardiogram performed 10/12/2019 reveals a EF of 65% with a left atrium is moderately enlarged moderate to severe aortic stenosis prior to aortic valve replacement Cardiovascular Laboratory Report 11/18/2019 FINAL IMPRESSIONS: 1. Severe aortic valve stenosis as assessed by invasive hemodynamic study. 2. Moderate in-stent restenosis of the left anterior descending coronary artery. 3. Normal global left ventricular systolic function by noninvasive imaging. 4. Normal right-sided heart pressures. 5. Normal cardiac output/cardiac index. FINDINGS: Hemodynamics: RA 6. RV 33/2. RV 33/7 (70). PCWP 11. LV 183/7, 16. AO 129/64, (92). Aortic valve hemodynamics: Peak to peak gradient 51 mmHg. Mean gradient 47.4 mmHg. Aortic valve area 0.85 cm2. Aortic valve area index 0.43 cm2/m2. LEFT VENTRICULOGRAPHY: This was not performed. Ejection fraction is 65% by noninvasive imaging. CORONARY ARTERIES: Left main coronary artery: This arises from the left coronary cusp. It bifurcates into the left anterior descending and left circumflex coronaryartery. It is free of significant stenosis. Left anterior descending coronary artery: This shows mild plaque proximally, there is evidence of apreviously placed stent in the midportion of the vessel with a 50% stenosis just proximal to the stent extending into the stented segment. This appears unchanged when compared to prior angiography. The remainder of the vessel shows luminal irregularities and caliber reduction distally. Left circumflex coronary artery: This shows mild luminal irregularities. It gives rise to 2 small obtuse marginals followed by a moderate-sized 3rd obtuse marginal. There is 40% bifurcation stenosis with the 3rd obtuse marginal. It continues as a small caliber AV groove branch. Right coronary artery: This is a dominant vessel giving rise to the posterior descending and posterolateral branches. It shows proximal luminal irregularities and a 30% to 40% mid vessel stenosis. The distal \ vasculature shows caliber reduction. Limited femoral angiography that shows mild plaque and a low stick and anatomy suitable for closuredevice. Echo 10/12/2019 The right ventricle is normal in size. Normal right ventricular systolic function. Doppler studies suggest normal right side pressures. Left Atrium: The left atrium is moderately enlarged. Aortic Valve: Mild aortic valve regurgitation. Moderate to severe aortic stenosis. Overall Conclusions: Compared tp the previous study of 01/21/2019 there is worsening of aortic stenosis ( PG 65 mm Hg Vmax 4.02 m/s mean PG 37 LEATHA 1.22-1.33 cm^2 and VTI ratio 0.38) compared to current findings ( PG 85.93 Vmax 4.64 m/s mean PG 40.16 LEATHA 1.3cm^2 and VTI ratio 0.41) recommended invasive hemodynamic evaluation for further assessment of the severity of the aortic stenosis. Of notice there is mild dynamic LVOT obstruction. DATE OF SURGERY: 12/03/2019 OPERATIONS: 1. Aortic valve replacement with 23 mm Avalus pericardial valve. 2. Coronary artery bypass grafting x1, MARCUS to LAD. 3. Extended left atrial CryoMaze procedure and exclusion of left atrial appendage using 45 mm AtriClip device. 4. Aortic root enlargement with pericardial patch using Nicks technique. 5. Extra complexity because of the steel and nickel allergy requiring patient to undergo sternal closure with Synthes sternal plating system,which added much time and complexity to the case 6. Intraoperative independent interpretation of transesophageal echocardiogram. PMH: Past Medical History: Diagnosis Date Abnormal ECG Arrhythmia Atrial fibrillation (CMS/HCC) Cancer (CMS/HCC) Carotid artery stenosis Coronary artery disease Heart valve disease Hyperlipidemia Hypertension Sleep apnea Stroke (CMS/HCC) PSH: Past Surgical History: Procedure Laterality Date AORTIC VALVE REPLACEMENT CARDIAC CATHETERIZATION CARDIAC VALVE REPLACEMENT CORONARY STENT PLACEMENT CT GUIDED PERCUTANEOUS BIOPSY LUNG 04/25/2022 CT GUIDED PERCUTANEOUS BIOPSY LUNG 04/25/2022 SH: Social Determinants of Health Tobacco Use: Medium Risk (11/19/2024) Patient History Smoking Tobacco Use: Former Smokeless Tobacco Use: Never Passive Exposure: Not on file Alcohol Use: Not At Risk (11/11/2023) Received from [facility] Frequency of Alcohol Consumption: Never Average Number of Drinks: Patient does not drink Frequency of Binge Drinking: Never Financial Resource Strain: Low Risk (05/11/2024) Received from [facility] Overall Financial Resource Strain (CARDIA) Difficulty of Paying Living Expenses: Not hard at all Food Insecurity: No Food Insecurity (08/10/2024) Received from [facility] Hunger Vital Sign Worried About Running Out of Food in the Last Year: Never true Ran Out of Food in the Last Year: Never true Transportation Needs: No Transportation Needs (08/10/2024) Received from [facility] PRAPARE - Transportation Lack of Transportation (Medical): No Lack of Transportation (Non-Medical): No Physical Activity: Sufficiently Active (11/11/2023) Received from [facility] Exercise Vital Sign Days of Exercise per Week: 7 days Minutes of Exercise per Session: 30 min Stress: Not on file Social Connections: Not on file Intimate Partner Violence: Unknown (08/22/2023) [place] Safety & Environment Fear of Current or Ex-Partner: Not on file Emotionally Abused: Not on file Physically Abused: Not on file Sexually Abused: Not on file Physically or Sexually Abused: Not on file Depression: Not at risk (08/10/2024) Received from [facility] PHQ-2 PHQ-9 Total Score: 0 Housing Stability: Low Risk (08/10/2024) Received from [facility] Housing Stability Vital Sign Unable to Pay for Housing in the Last Year: No Number of Times Moved in the Last Year: 0 Homeless in the Last Year: No Utilities: Not At Risk (08/10/2024) Received from [facility] Utilities Threatened with loss of utilities: No Health Literacy: Not on file Meds: Current Outpatient Medications on File Prior to Visit Medication Sig Dispense Refill acetaminophen (Tylenol) 500 mg tablet Take 500 mg by mouth every 4 (four) hours if needed. albuterol 90 mcg/actuation inhaler INHALE 2 PUFFS BY MOUTH 4 TIMES DAILY NEEDED FOR WHEEZING apixaban (Eliquis) 5 mg tablet Take 1 tablet (5 mg) by mouth in the morning and at bedtime. 180 tablet 3 bumetanide (Bumex) 1 mg tablet Take 1 tablet (1 mg) by mouth in the morning. Take an extra tablet every 2-3 days as needed. (Patient taking differently: Take 1 mg by mouth in the morning.) 135 tablet3 calcium carbonate-vitamin D3 600 mg-5 mcg (200 unit) tablet Take 1 tablet by mouth in the morning. cholecalciferol (Vitamin D-3) 50 MCG (2000 UT) tablet in the morning. esomeprazole (NexIUM) [address] capsule TAKE 1 CAPSULE BY MOUTH ONCE DAILY FOR 90 DAYS fluticasone furoate-vilanteroL (Breo Elipta) 200-25 mcg/dose inhaler Inhale 1 puff in the morning. gabapentin (Neurontin) 300 mg capsule Take 300 mg by mouth two times daily. ipratropium (Atrovent) 0.02 % nebulizer solution 0.5 mg. levothyroxine (Synthroid, Levoxyl) 50 mcg tablet Take 1 tablet by mouth in the morning. magnesium oxide (Mag-Ox) 400 mg (241.3 mg magnesium) tablet Take 1 tablet every day by oral route. melatonin 10 mg capsule Take 1 capsule every day by oral route. metoprolol tartrate (Lopressor) 25 mg tablet Take 0.5 tablets (12.5 mg) by mouth in the morning andat bedtime. 90 tablet 3 montelukast (Singulair) 10 mg tablet Take 10 mg by mouth in the morning. nitroglycerin (Nitrostat) 0.4 mg SL tablet DISSOLVE ONE TABLET UNDER THE TONGUE EVERY 5 MINUTES NEEDED FOR CHEST PAIN. DO NOT EXCEED A TOTAL OF 3 DOSES IN 15 MINUTES CALL 911. rosuvastatin (Crestor) 40 mg tablet Take 1 tablet (40 mg) by mouth at bedtime. 90 tablet 3 spironolactone (Aldactone) 25 mg tablet Take 1 tablet (25 mg) by mouth once daily as directed. 90 tablet 3 Vitamin C 500 mg tablet Take 1 tablet by mouth in the morning. anastrozole (Arimidex) 1 mg chemo tablet Take 1 tablet by mouth in the morning aspirin 81 mg chewable tablet Chew 1 tablet every day by oral route. DULoxetine (Cymbalta) [address] capsule Take 30 mg by mouth in the morning. ferrous sulfate 325 (65 Fe) MG tablet Take 325 mg by mouth with breakfast. furosemide (Lasix) 40 mg tablet Take 1 tablet (40 mg) by mouth in the morning. (Patient not taking:Reported on 11/19/2024) 90 tablet 3 oxyCODONE (Roxicodone) 5 mg immediate release tablet Take 5 mg by mouth every 4 (four) hours if needed. traMADol (Ultram) 50 mg tablet 50 mg every 6 (six) hours if needed. No current facility-administered medications on file prior to visit. Physical Exam: BP (!) 114/95 (BP Location: Left arm, Patient Position: Sitting) Pulse 55 Ht 1.626 m (5' 4 ) Wt 79.8 kg (176 lb) SpO2 97% BMI 30.21 kg/m?? Constitutional General Appearance: well-nourished, well-developed, appears stated age Level of Distress: comfortable Psychiatric Mental Status: alert, normal affect Orientation: oriented to time, place, and person Insight: good judgement Eyes Lids and Conjunctivae: non-injected, no xanthelasma ENMT Ears: no lesions on external ear Nose: no lesions on external nose Oropharynx: no cyanosis, no pallor Neck Neck: supple, trachea midline Carotid Arteries: bilateral normal upstroke, no bruits Jugular Veins: normal jugular venous pressure Thyroid: not enlarged Lungs Respiratory Effort: unlabored Chest Exam: normal curvature, no thoracic deformity Auscultation: clear, no wheezing, no rales, no rhonchi Cardiovascular Precordial scar from CABG Rate And Rhythm: regular Heart Sounds: normal S1, normal s2, no gallop Systolic Murmur: 3/6 Aortic position Diastolic Murmur: not heard Extremities: no cyanosis, no edema, no peripheral signs of emboli Peripheral Pulses Radial Pulse: normal Abdomen Inspection and Palpation: soft, non distended, no bruit, non tender Musculoskeletal Inspection: no joint swelling Neurologic Gait: normal gait Skin Inspection and Palpation: warm and dry Nails: no clubbing Labs: @LABRESULTS@ EKG: No results found for this or any previous visit (from the past 4464 hour(s)). Echo: 01/2023 Echocardiogram 11/17/2024: Global left ventricular systolic function is normal; ejection fraction 65 to 70%. Moderate left ventricular hypertrophy. Normal right ventricular size and systolic function. No aortic valve stenosis.Mild mitral valve stenosis. Severely dilated left atrium. Mild tricuspid regurgitation. Moderately elevated right- sided pressures; RVSP 52 mmHg. Stress test: Coronary angiogram: Diagnostic Imaging: No images are attached to the encounter. Assessment and Plan: - SOB: likely from pulm pulmonary issues/ HFpEF patient is in sinus rhythm today. Stress test neg for ischmia - Atrial fibrillation+ Atypical LA flutter s/p ablation to SR. She is post cryomaze/ JACKY exclusion chads 2 vascular score of 6. She is in SR. She is on DOAC and I have advised her to take Eliquis 5 mg twice daily and will need this lifelong based on guidelines. She had significant scar and would benefit from PPM or PFA if she has recurrence occurs. - HFpEF: CT RF modification. adjust the Bumex dose based on weight. she will need to see a camera person to monitor kidney function - Recent Dx of Lung CA. Will proceed with lobectomy. - History of aortic valve replacement: Pericardial tissue valve.: ECHO to assess AV. -mitral valve regurg: mild per echo 02/26/23 -Obstructive sleep apnea syndrome: compliant w/ therapy - Coronary arteriosclerosis: No chest pain; on ASA/DOAC, statin, BB - Essential hypertension - Hyperlipidemia: Continue statin Plan: Continue optimal medical therapy for coronary artery disease including aspirin, Crestor 40 mg daily, a beta-ubaldo Continue Eliquis for anticoagulation given history of atrial fibrillation She is to take Bumex 1 mg PO BID x 3 days given her symptoms of weight gain and shortness of breath; she is to weigh herself daily and if she notices an increase in weight by 3 pounds or more she is to take an extra dose of Bumex Will check a CMP, CBC, and BNP today and repeat the BMP in a week Treat noncardiac comorbidities as clinically appropriate She will need serial monitoring for her valvular heart disease with annual echocardiograms Return to clinic in 1 month or sooner should problems arise Kendy Wang MD, MPH, [facility], [facility], [facility] Interventional Cardiology Pager Email: [email or web address] documented in this encounter Plan of Treatment Upcoming Encounters Date Type Department Care Team (Late st Contact Info) Description 12/15/2024 2:45 PM EDT Office Visit [facility] Heart [facility] [address] [place] [address] Kendy Wang MD [address] [facility] [address] [facility] [place] [address] Scheduled Orders Name Type Priority Associated Diagnoses Orde r Schedule Comprehensive metabolic panel Lab Routine Coronary arteriosclerosis Expected: 11/19/2024 (Approximate), Expires: 11/19/2025 CBC and differential Lab Routine Coronary arteriosclerosis Expected: 11/19/2024 (Approximate), Expires: 11/19/2025 B-type natriuretic peptide Lab Routine Coronary arteriosclerosis Shortness of breath Expected: 11/19/2024 (Approximate), Expires: 11/19/2025 Basic metabolic panel Lab Routine Coronary arteriosclerosis Shortness of breath Expected: 11/19/2024 (Approximate), Expires: 11/19/2025 documented as of this encounter Visit Diagnoses Diagnosis Coronary arteriosclerosis- Primary Coronary atherosclerosis of unspecified type of vessel, tribal or graft Mitral valve problem Other and unspecified mitral valve diseases Nonrheumatic aortic valve stenosis Atypical atrial flutter (CMS/HCC) History of aortic valve replacement Heart valve replaced by other means Aortic valve disorder Aortic valve disorders Shortness of breath documented in this encounter Care Teams Top Waddy Relationship Specialty Start Date End Date Jasmyne Casillas MD [address] [id number] PCP - General 05/15/22 documented as of this encounter
--- OUTSIDE RECORDS SUMMARY | 2024-11-19 09:47 | XMS_ITS | Encounter Summary ---
Author Organization [facility] Address [address] [place] [address] Care Team Providers Care Rn Mobile Name Role Phone Soraida Sethi MD Primary Care Provider [phone] Encounter Details Date Type Department Care Team (Late st Contact Info) Description 11/05/2024 Bamboo flowsheet [facility] [address] [facility] [address] [place] [address] Dior Durand MD [address] [facility] [address] [place] [address] Social History Tobacco Use Types Packs/Day Years [...] on file documented as of this encounter Plan of Treatment Upcoming Encounters Date Type Department Care Team (Late Contact Info) Description 02/18/2025 10:45 AM EDT Office Visit [facility] [address] [facility] [address] [place] [address] Fred Frey DO [address] [place] [address] 11/09/2025 10:15 AM EDT Office Visit [facility] [address] [place] [address] Dior Durand MD [address] [place] [address] documented as of this encounter Visit Diagnoses Not on filedocumented in this encounter Care Teams Rn Mobile Relationship Specialty Start Date End Date Soraida Sethi MD [address] [place] [address] PCP - General Family Medicine 01/15/23 documented as of this encounter
--- OUTSIDE RECORDS SUMMARY | 2024-11-19 09:47 | XMS_ITS | Encounter Summary ---
Author Organization [facility] Address [address] [place] [address] Care Team Providers Care Medical Radiation Dosimetrist Name Role Phone Vahe Gottlieb MD Unavailable [phone] Storm Alcazar MD, Tuan Gilbert Unavailable [phone] Ky Adan MD Unavailable [phone] Chelle Marin APRN.SHADOWGRAPH SCALE OPERATOR Unavailable [phone] Babatunde Pizarro MD Unavailable Jasmyne Casillas [facility] Primary Care Provider [phone] Cameron Papaps MD Unavailable Source Comments In the event this information is protected by the Federal Confidentiality of Alcohol and Drug AbusePatient Records regulations: The Federal rules restrict any use of the information to criminally investigate or prosecute any alcohol or drug abuse patient.[facility] Encounter Details Date Type Department Care Team (Late st Contact Info) Description 01/25/2023 Lab Requisition [facility] [address] [place] [address] Sai Caputo MD [address] [place] [address] Person encountering health services to consult on behalf of another person Social History Tobacco Use Types Packs/Day Years Used Date Smoking Tobacco: Former Cigarettes 0.5 8 1 08/17/1962 - 06/16/1971 Passive Smoke Exposure: Past Smokeless Tobacco: Never Alcohol Use Standard Drinks/Week Comments No 0 (1 standard drink = 0.6 oz pur e alcohol) Overall Financial Resource Strain (CARDIA) Answe r Date Recorded How hard is it for you to pa y for the very basics like food, housing, medical care, and heating? Not hard at all 06/14/2022 PHQ-2 Answer Date Recorded PHQ-2 score 0 11/13/2022 Hunger Vital Sign Answer Date Recorded Within the past 12 months, y ou worried that your food would run out before you got the money to buy more. Never true 06/14/20 22 Within the past 12 months, t he food you bought just didn't last and you didn't have money to get more. Never true 06/14/2022 PRAPARE - Transportation Answer Date Re corded In the past 12 months, has l ack of transportation kept you from medical appointments or from getting medications? No 05/31 In the past 12 months, has l ack of transportation kept you from meetings, work, or from getting things needed for daily living? No 06/14/2022 Housing Stability Vital Sign Answer Gregor e Recorded In the last 12 months, was t here a time when you were not able to pay the mortgage or rent on time? No 06/14/2022 In the last 12 months, how many places have you lived? 1 06/14/2022 In the last 12 months, was t here a time when you did not have a steady place to sleep or slept in a snf (including now)? No 06/14/2022 Area Deprivation Index Answer Date Juarez rded National Score (1-100), lowe r number is lower risk 39 11/13/2022 State Score (1-10), lower number is lower risk 2 11/13/2022 Data from: https://www.neighborhoodatlas.medicine.[facility].edu /. Last address used for calculation [address] 11/13/2022 Comments No Sex and Gender Information Value Date Recorded Sex Assigned at Not on file Legal Sex Female 2:14 PM EST Gender Identity Not on file Sexual Orientation Not on file Occupation Industry Job Start Date Job End Date retired Not on file Not on file Not on file documented as of this encounter Functional Status * Are you deaf or do you have serious difficulty hearing? Answer Date of Assessment Author No 06/24/2022 1:01 PM Karis Harrison RN * Are you blind or do you have serious difficulty seeing, even when wearing glasses? Answer Date of Assessment Author No 06/24/2022 1:01 PM Karis Harrison RN * Do you have serious difficulty walking or climbing stairs? Answer Date of Assessment Author No 06/24/2022 1:01 PM Karis Harrison RN * Do you have difficulty dressing or bathing? Answer Date of Assessment Author No 06/24/2022 1:01 PM Karis Harrison RN * Because of a physical, mental, or emotional condition, do you have difficulty doing errands alone such as visiting a doctor's office or shopping? Answer Date of Assessment Author No 06/24/2022 1:01 PM Karis Harrison RN documented as of this encounter Mental Status * Because of a physical, mental, or emotional condition, do you have serious difficulty concentrating, remembering, or making decisions? Answer Entry Date Author No 06/24/2022 1:01 PM Karis Harrison RN documented in this encounter Plan of Treatment Upcoming Encounters Date Type Department Care Team (Latest Contact Info) Description 02/15/2025 10:00 AM EDT Appointment Radiology Pet CT [address] [facility] [place] [address] pet 02/22/2025 11:00 AM EDT Visit (SP) Office Hematology/Oncology [address] [place] [address] Herbert Swenson MD [address] [facility] [place] [address] [address] Vernon / SURESH pt documented as of this encounter Procedures Procedure Name Priority Date/Time Associated Diagnosis Comments SURGICAL PATHOLOGY REFERENCE LAB CONSULT Routine 01/25/2023 3:24 PM EDT Person encountering health services to consult on behalf of another person documented in this encounter Results * SURGICAL PATHOLOGY REFERENCE LAB CONSULT (01/25/2023 3:24 PM EDT) Case Report Surgical Pathology Report Case: [id number] Authorizing Provider: Sai Caputo MD Collected: 01/25/2023 03:24 PM Ordering Location: [facility] Lab Main Received: 01/25/2023 03:22 PM Pathologist: Ra Cueva MD Specimen: SLIDE(S), 8 SLIDES ([id number]) 01/28/2023 2:19 PM EDT [facility] FINAL DIAGNOSIS 1. Stomach, antrum, biopsy (A): -Superficial fragment of antral mucosa with reactive gastropathy. -Negative for intestinal metaplasia or dysplasia. -Negative for H. pylori on H&E and immunohistochemical stains. 2. Esophagus, biopsy (B): -Squamous mucosa with active esophagitis, focal erosion and marked epithelial reactive changes. -Cardiofundic-type mucosa with intestinal metaplasia, negative for dysplasia. 01/28/2023 2:19 PM EDT [facility] at 1419 EDT Diagnosis Comment Thank you for allowing us the opportunity to review this case in consultation representing stomach and esophageal biopsies from an 82-year-old female patient with a history of dysphagia and vomiting. Examination of the esophageal biopsy (part B) shows squamous mucosa with active inflammation including intraepithelial neutrophils, associated with focal surface ulceration with fibropurulent debris. There is no fungal organisms or viral cytopathic effects evident on H&E stains. There is cardiofundic-type mucosa with intestinal metaplasia. We note the presence of atypical changes including enlarged and hyperchromatic nuclei, but this is considered to represent the reactive/regenerative type atypia in the context of intestinal metaplasia. Thank you for sending this case in consultation. Please do not hesitate to contact the GI Consultation Service at [phone] with questions or if additional follow up information becomes available. This case was reviewed in conjunction with the GI pathology fellow, Iker Flores MD. 01/28/2023 2:19 PM EDT [facility] Clinical History CONSULT REQUESTED 01/28/2023 2:19 PM EDT [facility] Performing Lab Diagnostic interpretation performed at [facility], [address] [place] [address] CLIA# [id number] Project Architect: Elroy Vuong M.D. 01/28/2023 2:19 PM EDT [facility] Blocks or Slides MICROSCOPE SLIDE / Unknown 01/25/2023 3:24 PM EDT 01/25/2023 3:22 PM EDT us Sai Caputo MD SURGICAL PATHOLOGY Final Resul t [address] [place] [address], documented in this encounter Visit Diagnoses Diagnosis Person encountering health services to consult on behalf of another person Other person consulting on behalf of another person documented in this encounter Care Teams Medical Radiation Dosimetrist Relationship Specialty Start Date End Date Jasmyne Casillas SHADOWGRAPH SCALE OPERATOR [address] [place] [address] PCP - General Family Medicine 04/06/21 Vahe Gottlieb MD [address] [place] [address] Cardiology 10/14/13 Tuan Inman Jr., MD [address] [place] [address] Orthopedics 07/19/15 Ky Adan MD [address] [place] [address] Physician Hematology/Oncology 07/06/20 Chelle Marin APRN.SHADOWGRAPH SCALE OPERATOR [address] [place] [address] Nurse Practitioner Hematology/Oncology 07/06/20 Babatunde Pizarro MD [address] [place] [address] Radiation Oncology 07/07/20 Cameron Pappas MD [address] [place] [phone] Cardiology 05/18/22 documented as of this encounter
--- OUTSIDE RECORDS SUMMARY | 2024-11-19 09:47 | XMS_ITS | Clinical Summary ---
Author Organization [facility] Address [address] [place] [address] Care Team Providers Care Logistics Engineering Manager Name Role Phone Soraida Sethi MD Primary Care Provider [phone] Allergies Active Allergy Reactions Criticality Noted Date Comments Chlorproethazine Unknown 03/29/2022 Other Reaction(s): abdominal pain Chlorpromazine Rash,Unknown Low 08/17/2011 Other Reaction(s): Hives, Not available Other Reaction(s): Hives Clarithromycin Unknown 08/17/2011 Other Reaction(s): Not available, Unknown Reaction Other Reaction(s): Unknown Reaction Collagen 02/07/2023 Other Reaction(s): the Sinvist collagen in the knee Doxycycline 09/09/2017 Other Reaction(s): Unknown Other Reaction(s): Not available Hylan G-F 20 Swelling,Unknown 03/06/2012 Other Reaction(s): Itching, Not available Other Reaction(s): Itching, swelling Iodides Anaphylaxis,Shortne ss of breath High 08/17/2011 Iodinated Contrast Media Shortness of breath High Other Reaction(s): Not available, Rash Other Reaction(s): Rash Leucine Medium 01/04/2021 Metal (Generic) 04/03/2023 Other Reaction(s): Edema Nickel Rash,Unknown Low 07/05/2020 Other Reaction(s): Not available Other Reaction(s): Unknown Reaction Nitrous Oxide GI intolerance,Nausea And Vomiting,Unknown Low 09/10/2012 Other Reaction(s): Not available, Vomiting Other Reaction(s): Vomiting Wound Dressing Adhesive 04/03/2023 Other Reaction(s): abdominal pain, Blister Other Reaction(s): Blister Medications anastrozole (Arimidex) 1 MG chemo tablet Take 1 tablet by mouth Daily. Active Eliquis 5 MG tablet Take 1 tablet by mouth in the morning and 1 tablet before bedtime. Active aspirin 81 MG chewable tablet Chew 1 tablet every day by oral route. Active Calcium Carbonate-Vitam in D 600-5 MG-MCG tablet Take 1 tablet by mouth in the morning. Active cholecalciferol (Vitamin D-3) 50 MCG (1999) tablet Take 1.5 tablets every day by oral route. Active Chromium Picolinate 500 MCG capsule Take 1 tablet by mouth in the morning. Active coenzyme Q-10 10 MG capsule 1 (one) time each day at the same time. Active levothyroxine (Synthroid, Levoxyl) 50 MCG tablet Take 1 tablet by mouth in the morning. 08/13/2022 Active Linzess 290 MCG capsule TAKE 1 CAPSULE BY MOUTH ONCE DAILY AT LEAST 30 MINUTES BEFORE THE FIRST MEAL OF THE DAY ON AN EMPTY STOMACH 03/29/2022 Active magnesium oxide (Mag-Ox) 400 MG tablet Take 1 tablet by mouth in the morning. Active Melatonin 10 MG capsule Take 1 capsule every day by oral route. Active metoprolol tartrate (Lopressor) 25 MG tablet Take 1 tablet by mouth in the morning and 1 tablet before bedtime. Active montelukast (Singulair) 10 MG tablet Take 10 mg by mouth in the morning. 07/23/2022 Active nitroglycerin (Nitrostat) 0.4 MG SL tablet DISSOLVE ONE TABLET UNDER THE TONGUE EVERY 5 MINUTES NEEDED FOR CHEST PAIN. DO NOT EXCEED A TOTAL OF 3 DOSES IN 15 MINUTES CALL 911. Active rosuvastatin (Crestor) 40 MG tablet Take 1 tablet by mouth in the morning. Active spironolactone (Aldactone) 25 MG tablet Take 1 tablet by mouth in the morning. Active bumetanide (Bumex) 1 MG tablet Take 1 mg by mouth in the morning. 2023 Active esomeprazole (NexIUM) [address] capsule TAKE 1 CAPSULE BY MOUTH ONCE DAILY FOR 90 DAYS 06/07/2023 Active acetaminophen (Tylenol) 500 MG tablet Every 6 hours 09/03/2023 Activ e Active Problems Problem Noted Date Diagnosed Date Left posterior capsular opacification 12/31/2023 Dry eyes 12/31/2023 Blepharitis of upper and lower eyelids of both e yes 12/31/2023 Closed left ankle fracture 08/15/2023 Edema leg 08/15/2023 Infection 08/15/2023 Non-healing surgical wound 08/15/2023 Positive colorectal cancer screening using Colog uard test 08/15/2023 Preoperative clearance 08/15/2023 Asymptomatic microscopic hematuria 02/07/2023 Heart disease 02/07/2023 Abnormal mammogram 02/06/2023 Acquired deformity of toe 02/06/2023 Age related osteoporosis 02/06/2023 Asthma 02/06/2023 Breast pain, right 02/06/2023 Callus 02/06/2023 Ductal carcinoma in situ (DCIS) of right breast 02/06/2023 Fibrocystic breast changes 02/06/2023 Hemorrhagic disorder due to extrinsic circulating anticoagulants 02/06/2023 Pain in female genitalia on intercourse 02/07/20 23 Pain in left ankle and joints of left foot 02/06 Postcoital bleeding 02/06/2023 Seroma of breast 02/06/2023 Stress incontinence of urine 12/04/2022 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 History of recurrent urinary tract infection 11/2022 Kidney stones 12/04/2022 Mitral valve problem 12/04/2022 Renal function test abnormal 12/04/2022 Right flank pain 12/04/2022 Obesity, Class I, BMI 30-34.9 06/24/2022 Former smoker 05/30/2022 Hx of aortic valve repair 05/30/2022 Malignant neoplasm of upper lobe of left lung Secondary hyperparathyroidism 2021 Vitamin D deficiency 10/17/2020 PMR (polymyalgia rheumatica) 07/18/2020 HX: breast cancer 07/18/2020 Chronic kidney disease 07/18/2020 Overview (08/15/2023): Baseline creatinine 1.2-1.4 Baseline creatinine 1.2-1.4 Baseline creatinine 1.2-1.4 Baseline creatinine 1.2-1.4 Baseline creatinine 1.2-1.4 History of polymyalgia rheumatica 02/02/2020 Dyspnea 01/21/2020 Low blood pressure 12/31/2019 Chronic diastolic (congestive) heart failure Aortic valve stenosis 11/04/2017 Over weight 11/04/2017 Arthritis 03/16/2016 Overview (08/15/2023): Thoracic Spine, Cervical Spine, Noah Knees Aphasia 03/16/2016 Cerebrovascular accident 03/16/2016 Hyperlipidemia 03/16/2016 Muscle weakness 03/16/2016 JENNIFER (obstructive sleep apnea) 03/16/2016 Current use of residential anticoagulation 016 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 02/23/2016 Prosthetic joint implant failure 07/27/2015 Mild persistent asthma 07/14/2015 Primary osteoarthritis of right knee 05/19/2014 GERD (gastroesophageal reflux disease) 3 Insomnia 01/02/2013 Paroxysmal atrial fibrillation 12/01/2012 Carotid atherosclerosis 12/01/2012 Sleep apnea 08/20/2011 Osteoporosis 07/01/2007 Encounters Date Type Department Care Team Description 11/05/2024 10:30 AM EDT Office Visit [facility] [address] [place] [phone] Dior Durand MD Seborrheic keratosis (Primary Dx); Lentigines; Angioma of skin; Capillary angioma; Seborrheic keratosis, inflamed 11/05/2024 Bamboo flowsheet [facility] [address] [place] [address] Dior Durand MD 11/05/2024 Travel from Last 3 Months Immunizations Immunization Administration Dates Next Due ABRYSVO - Respiratory syncyt ial virus (RSV), vaccine, bivalent, protein subunit RSV prefusion F, diluent reconstituted, 0.5 mL, PF 06/26/2023 AS03 Adjuvant 04/20/2020,04/30/2018 Influenza Nasal, Unspecified 05/01/2019, 04/30/2018,05/02/2015,04/22 Influenza Whole 05/02/2015,04/22/2014 Influenza, High Dose Seasona l, Preservative Free 05/05/2019 Influenza, High-dose Seasona l, Quadrivalent, Preservative Free 04/12/2022 Influenza, Seasonal, Quadriv alent, Adjuvanted 04/29/2023,04/24/2021,03/04/2019 Influenza, Unspecified 05/01/2019,05/10/2017 Influenza, injectable, quadrivalent 03/04/2019 Influenza, injectable, quadr ivalent, preservative free 04/20/2020,05/10/2017,05/28/2016 Influenza, live, intranasal, quadrivalent 04/24/2021 Influenza, seasonal, injectable 05/26/2013 Influenza, trivalent, adjuvanted 04/20/2020,04/02 Moderna Bivalent Booster Vaccination 04/19/2022 Pneumococcal Conjugate PCV 13 01/25/2016 Pneumococcal Conjugate PCV 20 05/29/2022 Pneumococcal Polysaccharide PPSV23 07/25/2017, SARS-CoV-2, Unspecified 08/19/2020,07/19/2020 Tdap 09/06/2021 Zoster, Recombinant 10/01/2018,07/23/2018 Zoster, live 10/26/2013,11/04/2012 Family History Medical History Relation Name Comments Pancreatic cancer Mother Breast cancer Sister Colon cancer Neg Hx Melanoma Neg Hx Ovarian cancer Neg Hx Relation Name Status Comments Brother 2 Father Mother Sister 2 Social History Tobacco Use Types Packs/Day Years Used Date Smoking Tobacco: Former Cigarettes Smokeless Tobacco: Never Tobacco Cessation:Counseling Given: Not Answered Alcohol Use Standard Drinks/Week Comments Never 0 (1 standard drink = 0.6 oz pur e alcohol) Comments No Sex and Gender Information Value Date Recorded Sex Assigned at Not on file Legal Sex Female 6:55 PM EDT Gender Identity Not on file Sexual Orientation Not on file Last Filed Vital Signs Vital Sign Reading Time Taken Comments Blood Pressure 120/66 08/20/2024 10:23 AM EST Pulse - - Temperature - - Respiratory Rate - - Oxygen Saturation - - Inhaled Oxygen Concentration - - Weight 77.3 kg (170 lb 6.4 oz) 08/20/2024 10:23 AM EST Height 165.1 cm (5' 5 ) 08/20/2024 10:23 AM EST Body Mass Index 28.36 08/20/2024 10:23 AM EST Plan of Treatment Upcoming Encounters Date Type Department Care Team (Late st Contact Info) Description 02/18/2025 10:45 AM EDT Office Visit [facility] [address] [place] [id number] Fred Frey DO [address] [place] [address] 11/09/2025 10:15 AM EDT Office Visit [facility] [address] [place] [address] Dior Durand MD [address] [place] [address] Health Maintenance Due Date Last Done Comments Pneumococcal Vaccine: 65+ Years Completed 05/29/2022, 07/25/2017, 01/25/2016, Additional history exists Influenza Vaccine Completed 05/11/2024, , 04/12/2022, Additional history exists Procedures Procedure Name Priority Date/Time Associated Diagnosis Comments CRYOTHERAPY SKIN LESION Routine 11/06/19 10:47 AM EDT Seborrheic keratosis, inflamed from Last 3 Months Results * Cryotherapy, skin lesion (11/05/2024 10:47 AM EDT) Dior Durand MD DERM PROCEDURE ORDERABLES Fin al Result from Last 3 Months [place] [phone] [employer] [id number] Care Teams Logistics Engineering Manager Relationship Specialty Start Date End Date Soraida Sethi MD [address] [place] [phone] PCP - General Family Medicine 01/15/23
--- OUTSIDE RECORDS SUMMARY | 2024-11-19 09:47 | XMS_ITS | Clinical Summary ---
Author Organization [facility] Address [id number] [address] [place] [address] Care Team Providers Care Grain Origination Specialist Name Role Phone Unavailable Primary Care Provider Unavailabl e Social History Tobacco Use Types Packs/Day Years Used Date Smoking Tobacco: Never Assessed Childcare Answer Date Recorded Childcare Unknown 12/08/2018 Employment Answer Date Recorded Employment Unknown 12/08/2018 Comments Unknown Sex and Gender Information Value Date Recorded Sex Assigned at Not on file Legal Sex Female 12:38 PM EDT Gender Identity Not on file Sexual Orientation Not on file Plan of Treatment Not on file Medical Devices Not on file
--- OUTSIDE RECORDS SUMMARY | 2024-11-19 09:47 | XMS_ITS | Clinical Summary ---
Author Organization [facility] Address [address] [place] [address] Care Team Providers Care Back Tacker Name Role Phone No, Physician Primary Care Provider Unavailabl e Allergies Active Allergy Reactions Criticality Noted Date Comments Ct: Iodinated Contrast- Oral And Iv Dye 04/12/2015 Nitrous Oxide 04/12/2015 Hylan G-F 20 04/12/2015 Medications No known medications Social History Tobacco Use Types Packs/Day Years Used Date Smoking Tobacco: Former Comments Unknown Sex and Gender Information Value Date Recorded Sex Assigned at Not on file Legal Sex Female 9:29 AM EDT Gender Identity Not on file Sexual Orientation Not on file Plan of Treatment Health Maintenance Due Date Last Done Comments Dexa Scan 1941 Tetanus: Every 10yrs 1941 Wellness Visit 1944 Depression Screening/Follow-Up (PHQ-2/9) 1953 Pneumococcal Vaccine: Age 50+ (1 of 1 - PCV) 1 Zoster Vaccines (1 of 2) 1991 Falls Risk Assessment 2006 Respiratory Syncytial Virus Immunization: Risk, 60-74 Risk, or 75+ (1 - 1-dose 75+ series) 2016 COVID-19 Vaccine ( - 2023- season) 2024 Influenza Vaccine (Season Ended) 2025 Insurance [employer]-[place] ONLY Care Teams Back Tacker Relationship Specialty Start Date End Date No, Physician [facility] PCP - General 04/12/15
--- OUTSIDE RECORDS SUMMARY | 2024-11-19 09:47 | XMS_ITS | Referral Summary ---
Author Organization [facility] Address [address] [address] Care Team Providers Care Farm Equipment Maintenance Supervisor Name Role Phone Jasmyne Casillas MD Primary Care Provider [phone] Encounters Date Type Department Care Team Description 11/19/2024 9:00 AM EDT Office Visit [address] [address] Kendy Wang MD Coronary arteriosclerosis (Primary Dx); Mitral valve problem; Nonrheumatic aortic valve stenosis; Atypical atrial flutter (CMS/HCC); History of aortic valve replacement; Aortic valve disorder; Shortness of breath 10/20/2024 1:45 PM EDT Office Visit [facility] [address] [place] [address] Cameron Pappas MD History of aortic valve replacement; Mitral valve stenosis and aortic valve stenosis 09/04/2024 Refill [facility] [address] [place] [address] Malina Hurt MA Paroxysmal atrial fibrillation (CMS/HCC) from Last 3 Months Allergies Active Allergy Reactions Criticality Noted Date Comments Adhesive Tape-Silicones Other 03/29/2022 Chlorproethazine Other 03/29/2022 Clarithromycin 03/29/2022 Collagen Unknown 02/07/2023 Other Reaction(s): the Sinvist collagen in the knee Doxycycline 03/29/2022 Iodides Anaphylaxis,Shortne ss of breath High 08/17/2011 Iodinated Contrast Media 03/29/2022 Leucine Unknown Medium 01/04/2021 Nickel 03/29/2022 Nitrous Oxide 03/29/2022 Hylan G-F 20 03/29/2022 Chlorpromazine 03/29/2022 Medications Medication Sig Dispensed Refills Start Date End Date Status albuterol 90 mcg/actuation inhaler INHALE 2 PUFFS BY MOUTH 4 TIMES DAILY NEEDED FOR WHEEZING Active anastrozole (Arimidex) 1 mg chemo tablet Take 1 tablet by mouth in the morning Active aspirin 81 mg chewable tablet Chew 1 tablet every day by oral route. Active levothyroxine (Synthroid, Levoxyl) 50 mcg tablet Take 1 tablet by mouth in the morning. Active magnesium oxide (Mag-Ox) 400 mg (241.3 mg magnesium) tablet Take 1 tablet every day by oral route. Active melatonin 10 mg capsule Take 1 capsule every day by oral route. Active nitroglycerin (Nitrostat) 0.4 mg SL tablet DISSOLVE ONE TABLET UNDER THE TONGUE EVERY 5 MINUTES NEEDED FOR CHEST PAIN. DO NOT EXCEED A TOTAL OF 3 DOSES IN 15 MINUTES CALL 911. Active montelukast (Singulair) 10 mg tablet Take 10 mg by mouth in the morning. 07/23/2022 Active calcium carbonate-vitamin D3 600 mg-5 mcg (200 unit) tablet Take 1 tablet by mouth in the morning. Active cholecalciferol (Vitamin D-3) 50 MCG (2000 UT) tablet in the morning. Active ipratropium (Atrovent) 0.02 % nebulizer solution 0.5 mg. 2021 Active esomeprazole (NexIUM) [address] capsule TAKE 1 CAPSULE BY MOUTH ONCE DAILY FOR 90 DAYS 03/13/2023 Active bumetanide (Bumex) 1 mg tabletIndications :Leg edema Take 1 tablet (1 mg) by mouth in the morning. Take an extra tablet every 2-3 days as needed. 135 tablet 3 10/29/2023 Active Additional Information Patient taking differently:1 mg oral Daily,(No instructions reported), Reported on 11/19/2024 metoprolol tartrate (Lopressor) 25 mg tabletIndications :Paroxysmal atrial fibrillation (CMS/HCC) Take 0.5 tablets (12.5 mg) by mouth in the morning and at bedtime. 90 tablet 3 01/27/2024 Active rosuvastatin (Crestor) 40 mg tabletIndications :Coronary artery disease due to lipid rich plaque Take 1 tablet (40 mg) by mouth at bedtime. 90 tablet 3 04/29/2024 Active spironolactone (Aldactone) 25 mg tabletIndications :Benign hypertensive heart disease with heart failure (CMS/HCC) Take 1 tablet (25 mg) by mouth once daily as directed. 90 tablet 3 05/04/2024 Active apixaban (Eliquis) 5 mg tabletIndications :Paroxysmal atrial fibrillation (CMS/HCC) Take 1 tablet (5 mg) by mouth in the morning and at bedtime. 180 tablet 3 09/04/2024 Active acetaminophen (Tylenol) 500 mg tablet Take 500 mg by mouth every 4 (four) hours if needed. 09/03/2023 Active Vitamin C 500 mg tablet Take 1 tablet by mouth in the morning. 08/14/2024 Active DULoxetine (Cymbalta) [address] capsule Take 30 mg by mouth in the morning. 06/08/2024 Active ferrous sulfate 325 (65 Fe) MG tablet Take 325 mg by mouth with breakfast. 07/30/2024 Active fluticasone furoate-vilantero L (Breo Elipta) 200-25 mcg/dose inhaler Inhale 1 puff in the morning. Active gabapentin (Neurontin) 300 mg capsule Take 300 mg by mouth two times daily. 09/29/2024 Active oxyCODONE (Roxicodone) 5 mg immediate release tablet Take 5 mg by mouth every 4 (four) hours if needed. 07/30/2024 Active traMADol (Ultram) 50 mg tablet 50 mg every 6 (six) hours if needed. 03/23/2024 Active furosemide (Lasix) 40 mg tabletIndications :Edema, unspecified type Take 1 tablet (40 mg) by mouth in the morning. 90 tablet 3 12/26/2022 Discontinue d(Therapy completed) Active Problems Problem Noted Date Diagnosed Date Right hip pain 01/14/2024 Blepharitis of upper and lower eyelids of both e yes 12/31/2023 Dry eyes 12/31/2023 Left posterior capsular opacification 12/31/2023 Chronic pain 10/15/2023 10/15/2023 Left knee pain 10/15/2023 10/15/2023 Adenocarcinoma of left lung 08/26/202309/29 Radiation fibrosis of lung 08/26/202310/14 Closed left ankle fracture 08/15/202310/14 Edema leg 08/15/2023 10/15/2023 Infection 08/15/2023 10/15/2023 Non-healing surgical wound 08/15/202310/14 Positive colorectal cancer screening using Colog uard test 08/15/2023 10/15/2023 Preoperative clearance 08/15/2023 Asymptomatic microscopic hematuria 02/07/2023 04/01/2023 Abnormal mammogram 02/06/2023 04/01/2023 Acquired deformity of toe 02/06/20232022 Age related osteoporosis 02/06/2023 023 Breast pain, right 02/06/2023 04/01/2023 Callus 02/06/2023 04/01/2023 Fibrocystic breast changes 02/06/202304/01 Hemorrhagic disorder due to extrinsic circulating anticoagulants 02/06/2023 04/01/2023 Pain in left ankle and joints of left foot 02/0604/01/2023 Postcoital bleeding 02/06/2023 04/01/2023 Seroma of breast 02/06/2023 04/01/2023 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 Pain in female genitalia on intercourse 12/05/19 Mitral valve problem 12/04/2022 Kidney stones 12/04/2022 History of recurrent urinary tract infection 11/2022 Stress incontinence of urine 12/04/2022 Right flank pain 12/04/2022 Renal function test abnormal 12/04/2022 Obesity, Class I, BMI 30-34.9 06/24/2022 Chronic congestive heart failure 05/30/2022 Hx of aortic valve repair 05/30/2022 Former smoker 05/30/2022 Malignant neoplasm of upper lobe of left lung Secondary hyperparathyroidism 2021 Vitamin D deficiency 10/17/2020 Paroxysmal atrial fibrillation 10/11/2020 PMR (polymyalgia rheumatica) 07/18/2020 HX: breast cancer 07/18/2020 Stage 3 chronic kidney disease 07/18/2020 Overview (12/04/2022): Baseline creatinine 1.2-1.4 Baseline creatinine 1.2-1.4 Ductal carcinoma in situ (DCIS) of right breast 05/31/2020 History of polymyalgia rheumatica 02/02/2020 Dyspnea 01/21/2020 Low blood pressure 12/31/2019 Coronary arteriosclerosis 11/30/2019 Aortic valve stenosis 06/29/2019 Carotid atherosclerosis 06/29/2019 Chronic diastolic (congestive) heart failure Over weight 11/04/2017 Aphasia 03/16/2016 Arthritis 03/16/2016 Asthma 03/16/2016 Cerebrovascular accident 03/16/2016 Gastroesophageal reflux disease 03/16/2016 Hyperlipidemia 03/16/2016 Muscle weakness 03/16/2016 Obstructive sleep apnea syndrome 03/16/2016 Current use of watcher automat long goods anticoagulation 016 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 02/23/2016 Prosthetic joint implant failure 07/27/2015 Mild persistent asthma without complication 07/01 Primary osteoarthritis of right knee 05/19/2014 Insomnia 01/02/2013 Osteoporosis 12/01/2012 Immunizations Name Administration Dates Next Due Influenza, Seasonal, Quadrivalent, Adjuvanted Social History Tobacco Use Types Packs/Day Years Used Date Smoking Tobacco: Former Cigarettes 1 966 - 1973 Smokeless Tobacco: Never Tobacco Cessation:Counseling Given: Not Answered Alcohol Use Standard Drinks/Week Comments Not Currently 0 (1 standard drink = 0.6 oz pur e alcohol) [place] Safety & Environment Answer Date Rec orded [...] Pulse 55 11/19/2024 9:08 AM EDT Temperature 36.7 C (98 F) 09/16/2020 11:22 AM EDT Respiratory Rate 16 09/16/2020 11:22 AM EDT Oxygen Saturation 97% 11/19/2024 9:08 AM EDT Inhaled Oxygen Concentration - - Weight 79.8 kg (176 lb) 11/19/2024 9:08 AM EDT Height 162.6 cm (5' 4 ) 11/19/2024 9:08 AM EDT Body Mass Index 30.21 11/19/2024 9:08 AM EDT Plan of Treatment Upcoming Encounters Date Type Department Care Team (Late st Contact Info) Description 12/15/2024 2:45 PM EDT Office Visit [facility] [address] [place] [address] Kendy Wang MD [address] [facility] [place] [address] Procedures Procedure Name Priority Date/Time Associated Diagnosis Comments HEMOGLOBIN A1C Routine 11/30/2019 12:14 PM EDT from Last 3 Months or Most Recently Relevant to Health Maintenance Results * Hemoglobin A1C (11/30/2019 12:14 PM EDT) Hemoglobin A1C 6.0 4.0 - 6.0 % LAB CONVERSIONS Estimated Average Glucose 126 70 - 126 mg/dL LAB CONVERSIONS 11/30/2019 12:1 4 PM EDT 11/30/2019 12:14 PM EDT Praful aMckay MD LAB BLOOD ORDERABLES LAB CONVERSIONS from Last 3 Months or Most Recently Relevant to Health Maintenance Care Teams Farm Equipment Maintenance Supervisor Relationship Specialty Start Date End Date Jasmyne Casillas MD [address] [place] [phone] PCP - General 05/15/22
--- OUTSIDE RECORDS SUMMARY | 2024-11-19 09:47 | XMS_ITS | Encounter Summary ---
Author Organization [facility] Address [facility] [place] [address] Care Team Providers Care Rn Shift Mgr Name Role Phone Vahe Gottlieb MD Unavailable [phone] Storm Alcazar MD, Tuan Gilbert Unavailable [phone] Ky Adan MD Unavailable [phone] 91 Chelle Marin APRN.MEDICAL REVIEWER Unavailable [phone] Babatunde Pizarro MD Unavailable Jasmyne Casillas [facility] Primary Care Provider [phone] Cameron Pappas MD Unavailable Source Comments In the event this information is protected by the Federal Confidentiality of Alcohol and Drug AbusePatient Records regulations: The Federal rules restrict any use of the information to criminally investigate or prosecute any alcohol or drug abuse patient.[facility] Encounter Details Date Type Department Care Team (Late st Contact Info) Description 06/22/2022 [place] [address] Provider, [facility] Actionable Imaging Result Notification Patient Outreach Social History Tobacco Use Types Packs/Day Years [...] PHQ-2 Answer Date Recorded PHQ-2 score 0 05/10/2022 Hunger Vital Sign Answer Date Recorded Within [...] place to sleep or slept in a long term (including now)? No 06/14/2022 Area Deprivation Index Answer Date Juarez rded National Score (1-100), lowe r number is lower risk 49 02/08/2022 State Score (1-10), lower number is lower risk N ot on file 02/08/2022 Data from: https://www.neighborhoodatlas.medicine.[facility].edu /. Last address used for calculation [address] 02/08/2022 Comments No Sex and Gender Information Value [...] suspected to have Coronavirus/COVID-19? No / Unsure 06/01/2022 8:51 AM EST documented as of this encounter Functional Status * Are you deaf or do you have serious difficulty hearing? Answer Date of Assessment Author No 07/30/2015 11:15 AM Brittany Colin RN * Are you blind or do you have serious difficulty seeing, even when wearing glasses? Answer Date of Assessment Author No 07/30/2015 11:15 AM Brittany Colin RN * Do you have serious difficulty walking or climbing stairs? Answer Date of Assessment Author Yes 07/30/2015 11:15 AM Brittany Colin RN * Do you have difficulty dressing or bathing? Answer Date of Assessment Author No 07/30/2015 11:15 AM Brittany Colin RN * Because of a physical, mental, or emotional condition, do you have difficulty doing errands alone such as visiting a doctor's office or shopping? Answer Date of Assessment Author No 07/30/2015 11:15 AM Brittany Colin RN documented as of this encounter Mental Status * Because of a physical, mental, or emotional condition, do you have serious difficulty concentrating, remembering, or making decisions? Answer Entry Date Author No 07/30/2015 11:15 AM Brittany Colin RN documented in this encounter Plan of Treatment Upcoming Encounters Date Type Department Care Team (Latest Contact Info) Description 02/15/2025 10:00 AM EDT Appointment Radiology Pet CT [address] [facility] [address] pet 02/22/2025 11:00 AM EDT Visit (SP) Office Hematology/Oncology [address] [facility] [place] [address] Herbert Swenson MD [address] [place] [address] [address] Vernon / SURESH pt documented as of this encounter Visit Diagnoses Not on filedocumented in this encounter Care Teams Rn Shift Mgr Relationship Specialty Start Date End Date Jasmyne Casillas MEDICAL REVIEWER [address] [place] [address] PCP - General Family Medicine 04/06/21 Vahe Gottlieb MD [address] [address] Cardiology 10/14/13 Tuan Inman Jr., MD [address] [place] [address] Orthopedics 07/19/15 Ky Adan MD [address] [place] [address] Physician Hematology/Oncology 07/06/20 Chelle Marin APRN.MEDICAL REVIEWER [address] [place] [address] Nurse Practitioner Hematology/Oncology 07/06/20 Babatunde Pizarro MD [address] [place] [address] Radiation Oncology 07/07/20 Cameron Pappas MD [address] [place] [address] Cardiology 05/18/22 documented as of this encounter
--- OUTSIDE RECORDS SUMMARY | 2024-11-19 09:47 | XMS_ITS | Clinical Summary ---
Author Organization [facility] Address [address] [facility] [place] [address] Phone Care Team Providers Care Windscreen Fitter Name Role Phone Unavailable Primary Care Provider Unavailabl e Social History Tobacco Use Types Packs/Day Years Used Date Smoking Tobacco: Never Assessed Comments Unknown Sex and Gender Information Value Date Recorded Sex Assigned at Not on file Legal Sex Female 11:05 PM EST Gender Identity Not on file Sexual Orientation Not on file Plan of Treatment Not on file
--- OUTSIDE RECORDS SUMMARY | 2024-11-19 09:47 | XMS_ITS | Encounter Summary ---
Author Organization [facility] Address [address] [place] [address] Care Team Providers Care Service Person Name Role Phone KarinaEleazar Ajay GONZALEZ Primary Care Provider [phone] Vahe Gottlieb MD Unavailable [phone] Alberto Salamanca Unavailable Storm Alcazar MD, Tuan Gilbert Unavailable [phone] Ky Adan MD Unavailable [phone] Chelle Marin APRN.[facility] Unavailable [phone] Jennifer Welch RN Unavailable [phone] Babatunde Pizarro MD Unavailable Jasmyne Casillas [facility] Primary Care Provider [phone] Cameron Pappas MD Unavailable Source Comments In the event this information is protected by the Federal Confidentiality of Alcohol and Drug AbusePatient Records regulations: The Federal rules restrict any use of the information to criminally investigate or prosecute any alcohol or drug abuse patient.[facility] Encounter Details Date Type Department Care Team (Late st Contact Info) Description 06/23/2015 Patient Msg Medical Records [address] [place] [address] Provider, Masha Your [facility] Procedure Social History Tobacco Use Types Packs/Day Years Used Date Smoking Tobacco: Former Cigarettes 0.5 8 1 08/17/1962 - 06/16/1971 Smokeless Tobacco: Never Alcohol Use Standard Drinks/Week Comments No 0 (1 standard drink = 0.6 oz pur e alcohol) Comments Unknown Sex and Gender Information Value [...] difficulty hearing? Answer Date of Assessment Author Yes 12/21/2014 9:15 AM Sri Curiel Ma * Are you blind or do you have serious difficulty seeing, even when wearing glasses? Answer Date of Assessment Author No 12/21/2014 9:15 AM Sri Curiel Ma * Do you have serious difficulty walking or climbing stairs? Answer Date of Assessment Author Yes 12/21/2014 9:15 AM Sri Curiel Ma * Do you have difficulty dressing or bathing? Answer Date of Assessment Author No 12/21/2014 9:15 AM Sri Curiel Ma * Because of a physical, mental, or emotional condition, do you have difficulty doing errands alone such as visiting a doctor's office or shopping? Answer Date of Assessment Author No 12/21/2014 9:15 AM Sri Curiel Ma documented as of this encounter Mental Status * Because of a physical, mental, or emotional condition, do you have serious difficulty concentrating, remembering, or making decisions? Answer Entry Date Author No 12/21/2014 9:15 AM Sri Curiel Ma documented in this encounter Plan of Treatment Upcoming Encounters Date Type Department Care Team (Latest Contact Info) Description 02/15/2025 10:00 AM EDT Appointment Radiology Pet CT [address] [place] [address] [place] [address] pet 02/22/2025 11:00 AM EDT Visit (SP) Office Hematology/Oncology [address] [place] [address] [place] [address] Herbert Swenson MD [address] [place] [address] [place] [address] [address] Vernon / SURESH pt documented as of this encounter Visit Diagnoses Not on filedocumented in this encounter Additional Health Concerns Infection Onset Date Last Indicated Resolved Time COVID-19 Rule-Out 06/13/2022 06/13/2022 06/13/2022 2:33 PM EST documented as of this encounter Care Teams Service Person Relationship Specialty Start Date End Date Karina Eleazar DO Ajay [address] [place] [address] PCP - General Family Medicine 06/09/13 04/05/21 Jasmyne Casillas CNP [address] [place] [address] [place] [address] PCP - General Family Medicine 04/06/21 Vahe Gottlieb MD [address] [facility] [place] [address] Cardiology 10/14/13 Ablerto Salamanca [address] [facility] [place] [address] Primary Staff Physician Cardiology 09/29/14 6 Tuan Inman Jr., MD [address] [place] [address] Orthopedics 07/19/15 Ky Adan MD [address] [place] [address] [place] [address] Physician Hematology/Oncology 07/06/20 Chelle Marin APRN.COMMUNITY ARTS WORKER [address] [facility] [place] [address] Nurse Practitioner Hematology/Oncology 07/06/20 Jennifer Welch, RN [address] [facility] [place] [address] Specialty Comic Book Designer Hematology/Oncology 07/06/20 11/01/20 Babatunde Pizarro MD [address] [facility] [place] [address] Radiation Oncology 07/07/20 Cameron Pappas MD [address] [place] [address] Cardiology 05/18/22 documented as of this encounter
--- OUTSIDE RECORDS SUMMARY | 2024-11-19 09:47 | XMS_ITS | Encounter Summary ---
Author Organization [facility] Address [address] [place] [address] Care Team Providers Care Engineered Wood Designer Name Role Phone Soraida Sethi MD Primary Care Provider [phone] Encounter Details Date Type Department Care Team (Latest Contact Info) Description 11/05/2024 Travel Social History Tobacco Use Types Packs/Day Years [...] EDT Office Visit [facility] [address] [facility] [address] [place] [address] Fred Frey DO [address] [facility] [address] [place] [address] 11/09/2025 10:15 AM EDT Office Visit [facility] [address] [place] [address] Dior Durand MD [address] [facility] [address] [place] [address] documented as of this encounter Visit Diagnoses Not on filedocumented in this encounter Care Teams Engineered Wood Designer Relationship Specialty Start Date End Date Soraida Sethi MD [address] [place] [address] PCP - General Family Medicine 01/15/23 documented as of this encounter
--- OUTSIDE RECORDS SUMMARY | 2024-11-19 09:47 | XMS_ITS | Encounter Summary ---
Author Organization [facility] Address [facility] [place] [address] Care Team Providers Care Sr. Director Name Role Phone Vahe Gottlieb MD Unavailable [phone] Storm Alcazar MD, Tuan Gilbert Unavailable [phone] Ky Adan MD Unavailable [phone] 27 Chelle Marin APRN.FAMILY COUNSELOR Unavailable [phone] Babatunde Pizarro MD Unavailable Jasmyne Casillas [facility] Primary Care Provider [phone] Cameron Pappas MD Unavailable Source Comments In the event this information is protected by the Federal Confidentiality of Alcohol and Drug AbusePatient Records regulations: The Federal rules restrict any use of the information to criminally investigate or prosecute any alcohol or drug abuse patient.[facility] Encounter Details Date Type Department Care Team (Late st Contact Info) Description 05/20/2024 [place] [address] Provider, [facility] Actionable Imaging Result Notification Patient [...] PHQ-2 Answer Date Recorded PHQ-2 score 0 05/28/2023 Hunger Vital Sign Answer Date Recorded Within [...] is lower risk 2 11/13/2022 Data from: https://www.neighborhoodatlas.medicine.[facility].edu /. Last address used for calculation [address] 11/13/2022 Comments No [...] AM EDT Appointment Radiology Pet CT [address] [place] [address] pet 02/22/2025 11:00 AM EDT Visit (SP) Office Hematology/Oncology [address] [place] [address] Herbert Sewnson MD [address] [place] [address] [address] Vernon / SURESH pt documented as of this encounter Visit Diagnoses Not on filedocumented in this encounter Care Teams Sr. Director Relationship Specialty Start Date End Date Jasmyne Casillas, FAMILY COUNSELOR [address] [place] [address] PCP - General Family Medicine 04/06/21 Vahe Gottlieb MD [address] [place] [address] Cardiology 10/14/13 Tuan Inman Jr., MD [address] [place] [address] Orthopedics 07/19/15 Ky Adan MD [address] [facility] [place] [address] Physician Hematology/Oncology 07/06/20 Chelle Marin APRN.FAMILY COUNSELOR [address] [facility] [place] [address] Nurse Practitioner Hematology/Oncology 07/06/20 Babatunde Pizarro MD [address] [facility] [place] [address] Radiation Oncology 07/07/20 Cameron Pappas MD [address] [place] [address] Cardiology 05/18/22 documented as of this encounter
--- OUTSIDE RECORDS SUMMARY | 2024-11-19 09:47 | XMS_ITS | Clinical Summary ---
Author Organization [facility] Address [address] [place] [address] Care Team Providers Care Manager Technical Support Name Role Phone Jasmyne Casillas MD Primary Care Provider Allergies Active Allergy Reactions Criticality Noted Date [...] mouth at bedtime. 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 02/23/2016 Prosthetic joint implant failure 07/27/2015 Mild persistent asthma without complication 07/01 Primary osteoarthritis of right knee 05/19/2014 Insomnia 01/02/2013 Osteoporosis 12/01/2012 Encounters Date Type Department Care Team Description 11/19/2024 9:00 AM EDT Office Visit [address] [address] Kendy Wang MD Coronary arteriosclerosis (Primary Dx); Mitral valve problem; Nonrheumatic aortic valve stenosis; Atypical atrial flutter (CMS/HCC); History of aortic valve replacement; Aortic valve disorder; Shortness of breath 10/20/2024 1:45 PM EDT Office Visit [address] [address] Cameron Pappas MD History of aortic valve replacement; Mitral valve stenosis and aortic valve stenosis 09/04/[address] [address] Malina Hurt MA Paroxysmal atrial fibrillation (CMS/HCC) from Last 3 Months Immunizations Name Administration Dates Next Due Influenza, Seasonal, Quadrivalent, Adjuvanted Family History Medical History Relation Name Comments CABG Brother pacemaker Brother CABG x5 Father Stroke Father carotid artery disease Father carotid artery disease Mother Breast cancer Sister Relation Name Status Comments Brother Alive Father Mother Sister Alive Social History Tobacco Use Types Packs/Day Years Used Date Smoking Tobacco: Former Cigarettes 1 966 - 1972 Smokeless Tobacco: Never Tobacco Cessation:Counseling Given: Not [...] Description 12/15/2024 2:45 PM EDT Office Visit [facility] [address] [place] [address] Kendy Wang MD [address] [facility] [place] [address] Health Maintenance Due Date Last Done Comments Medicare Annual Wellness (AWV) 1940 Diabetes: Retinopathy Screening 1951 Depression Screening 1953 Diabetes: Urine Protein Screening 1960 Fall Risk Screening 2006 Diabetes: Hemoglobin A1C 03/01/2020 11/30/2019 COVID-19 Vaccine ( season) 2024 03/10/2024, 04/19/2022, 01/19/2022, Additional history exists Adult Tetanus 09/07/2031 09/06/2021 Zoster Vaccines Completed 10/01/2018, 07/02, 10/26/2013, Additional history exists Pneumococcal Vaccine: 65+ Years Completed 05/29/2022, 07/25/2017, 01/25/2016, Additional history exists Influenza Vaccine Completed 05/11/2024, , 04/12/2022, Additional history exists HIB Vaccines Aged Out No longer eligi ble based on patient's age to complete this topic HPV Vaccines Aged Out No longer eligi ble based on patient's age to complete this topic IPV Vaccines Aged Out No longer eligi ble based on patient's age to complete this topic Meningococcal B Vaccine Aged Out No l onger eligible based on patient's age to complete this topic Meningococcal Vaccine Aged Out No miko kunal eligible based on patient's age to complete this topic Rotavirus Vaccines Aged Out No longer eligible based on patient's age to complete this topic Procedures Procedure Name Priority Date/Time Associated Diagnosis Comments HEMOGLOBIN A1C Routine 11/30/2019 12:14 PM EDT from Last 3 Months or Most Recently Relevant to Health Maintenance Results * Hemoglobin A1C (11/30/2019 12:14 PM EDT) Hemoglobin A1C 6.0 4.0 - 6.0 % LAB CONVERSIONS Estimated Average Glucose 126 70 - 126 mg/dL LAB CONVERSIONS 11/30/2019 12:1 4 PM EDT 11/30/2019 12:14 PM EDT Praful Mackay MD LAB BLOOD ORDERABLES LAB CONVERSIONS from Last 3 Months or Most Recently Relevant to Health Maintenance Care Teams Manager Technical Support Relationship Specialty Start Date End Date Jasmyne Casillas MD [address] [place] [address] PCP - General 05/15/22
--- OUTSIDE RECORDS SUMMARY | 2024-11-19 09:48 | XMS_ITS ---
Author Organization [facility] Address [address] [place] [address] Care Team Providers Care Vegetable Tier Name Role Phone Vahe Gottlieb MD Unavailable [phone] Storm Alcazar MD, Tuan Gilbert Unavailable [phone] Ky Adan MD Unavailable [phone] Chelle Marin APRN.SENIOR MAINTENANCE MECHANIC Unavailable Babatunde Pizarro MD Unavailable Jasmyne Casillas SENIOR MAINTENANCE MECHANIC Primary Care Provider [phone] Cameron Pappas MD Unavailable Active Problems Problem Noted Date Diagnosed Date Obesity, Class I, BMI 30-34.9 06/24/2022 Cerebrovascular accident (CVA) 05/30/2022 Former smoker 05/30/2022 JENNIFER (obstructive sleep apnea) 05/30/2022 Chronic congestive heart failure 05/30/2022 Chronic kidney disease 05/30/2022 Hx of aortic valve repair 05/30/2022 Malignant neoplasm of 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 Past Treatment and Therapy Plans No past plan information found. Treatment Summaries Ductal carcinoma in situ (DCIS) of right breast* Treatment Summary and Survivorship Care Plan for Breast Cancer Provided by: Chelle Marin APRN.CURTIS General Information Patient Name: Lisa Guzman Patient : 1940 Health Care Providers Primary Care Provider: Jasmyne Casillas NP, SENIOR MAINTENANCE MECHANIC Surgeon: Dr. Fred Frey Radiation Oncologist: Dr. Babatunde Pizarro Medical Oncologist: Dr. Ky Adan Other Providers: Chelle Marin APRN.CURTIS Treatment Summary Diagnosis Cancer Type/Histology Subtype: Right Breast Cancer- Ductal carcinoma in situ (DCIS) Diagnosis Date (year): May 25, 2020 Receptors: Estrogen positive and Progesterone positive Stage: Not applicable Treatment Completed Surgery: Yes Surgery Date(s) (year): June 21, 2020 Surgical procedure/findings: Right breast lumpectomy/wide local excision on 06/21/2020, and pathology confirmed a 1.3 cm low-grade DCIS that was ER/KY positive with negative but close margins (<1 millimeter posterior). Lymph node removal: No Radiation: Yes- Accelerated partial breast radiation (APBI) Body area treated: Right partial breast (E lower)/Lumpectomy cavity End Date (year): August 19, 2020 (August 08, 2020 through August 19, 2020) DELIVERED DOSE: Area: Right Partial Breast (Lower)/Lumpectomy Cavity 3000 cGy in 5 fractions, 2 VMAT/IMRT Alexis, 6X with CBCT guidance and DIBH delivered every other day. TOTAL : 3000 cGy in 5 fractions (APBI) Systemic Therapy (chemotherapy, hormonal therapy, other): Yes: After surgery Treatment Ongoing Endocrine Treatment: Anastrozole- Possible side effects: hot flashes, joint/muscle aches, vaginal dryness, bone loss, and hair thinning Persistent symptoms or side effects at completion of treatments: No Familial Cancer Risk Assessment Breast and or ovarian cancer in 1st or 2nd degree relatives: Unknown Received Genetic counseling: Yes Genetic testing: Yes Genetic testing results: Genetic testing revealed no evidence of deleterious mutations. Follow-up Care Plan Your follow-up care plan is design to inform you and primary care providers regarding the recommended and required follow-up, cancer screening and routine health maintenance that is needed to maintain optimal health. Possible late- and long-term effects that someone with this type of cancer and treatment may experience: Bones become weak and at risk for fracture (osteoporosis) It is important to remember that these symptoms can be due to other causes like diabetes or with normal age. If these or any other new symptoms occur bring these to attention of your health care provider. These symptoms should be brought to the attention of your provider: 1. Anything that represents a brand new symptom; 2. Anything that represents a persistent symptom; 3. Anything you are worried about that might be related to the cancer coming back. Please continue to see your primary care provider for all general health care recommended for a women your age such as routine immunizations, and routine non- breast cancer screening like colonoscopy or bone density exams. Consult with your health care provider about prevention and screening for bone loss using bone density tests. Schedule of clinical visits for cancer follow-up Follow-Up Item How often? Who's Responsible? Breast self-exam Monthly Patient Clinical breast exams Years from diagnosis 0-3 Every 3-6 months 3-5 Every 6 months Beyond 5 Annually Oncology Team (okay to alternate with oncology providers) Breast imaging (Mammogram unless otherwise indicated) Annually Medical Oncology Bone density (if on aromatase inhibitor or older than 65 years old) Every 2 years Medical oncology Cancer surveillance or other recommended related tests Coordinating Provider Test How Often Oncology Team Mammogram Annually RETORT FEEDER GROUND BONE or PCP Pap/pelvic exam As indicated by provider PCP Colonoscopy As indicated by provider PCP or Oncology Team- if on Aromatase Inhibitors Bone Density Every 2 years if on an aromatase inhibitor or as indicated by your provider. Breast cancer survivors may experience issues with the areas listed below. If you have any concernsin these or other areas, please speak with your doctors or nurses to find out how you can get help with them: anxiety or depression , emotional or mental health, fatigue, fertility, financial advice or assistance, insurance, memory or concentration loss, parenting, physicial functioning, school/work, and sexual functioning A number of lifestyle/behaviors can affect your ongoing health, including the risk for the cancer coming back or developing another cancer. Discuss these recommendations with your doctor or nurse: alcohol use, diet, management of medications, management of other illnesses, physical activity, sun screen use, tobacco use/cessation, and weight management (loss/gain) Resources you may be interested in: [employer] Entry Level Installation Technician Biomedical Technician Art Therapy [facility] [phone] Support Groups- Contact psychotherapist social worker for dates and times. Prepared by: Chelle Marin APRN.SENIOR MAINTENANCE MECHANIC Delivered on: April 06, 2021 - This Survivorship Care Plan is a cancer treatment summary and follow-up plan is provided to you to keep with your health care records and to share with your primary care provider. - This summary is a brief record of major aspects of your cancer treatment. You can share your copywith any of your doctors or nurses. However, this is not a detailed or comprehensive record of yourcare. Resolved Problems Problem Noted Date Diagnosed Date Resolved Date Mass of upper lobe of left lung 06/13/2022 06/22/2022
--- OUTSIDE RECORDS SUMMARY | 2024-11-19 09:48 | XMS_ITS | Clinical Summary ---
Author Organization [facility] Address [address] [place] [address] Care Team Providers Care Tractor Trailer Mechanic Name Role Phone Vahe Gottlieb MD Unavailable [phone] Storm Alcazar MD, Tuan Gilbert Unavailable [phone] Ky Adan MD Unavailable [phone] Chelle Marin APRN.DRY CLEANING TEACHER Unavailable [phone] Babatunde Pizarro MD Unavailable Jasmyne Casillas DRY CLEANING TEACHER Primary Care Provider [phone] Cameron Pappas MD Unavailable Allergies Active Allergy Reactions Criticality Noted Date Comments Clarithromycin Unknown 06/16/2013 Contrast Dye Shortness of Breath 06/16/2013 Nickel Unknown 07/05/2020 Nitrous Oxide Vomiting 12/21/2014 Hylan G-F 20 Swelling 06/16/2013 Chlorpromazine Rash 06/16/2013 Medications COQ10, UBIQUINOL, ORAL Take 1 tablet by mouth once daily. Active Chromium Picolinate 500 mcg cap Take 1 tablet by mouth once daily. Active MAGNESIUM ORAL Take 1 tablet by mouth once daily. 600mg Active nitroglycerin sublingual (NITROQUICK) 0.4 mg SL tablet Dissolve 1 tablet under the tongue every 5 minutes as needed. 1 Bottle of 25 0 5 Active esomeprazole (NEXIUM) 40 mg capsule Take 40 mg by mouth as directed. Twice per week Active rosuvastatin (CRESTOR) 40 mg tablet Take 40 mg by mouth once daily. Active spironolactone (ALDACTONE) 25 mg tablet Take 25 mg by mouth once daily. Active apixaban (ELIQUIS) 5 mg tab(s) Eliquis 5 mg tablet Take 1 tablet twice a day by oral route for 90 days. 1 Active calcium carbonate (CALTRATE) 600 mg calcium (1,500 mg) tab 600 mg. 0 Active melatonin 10 mg tab 10 mg. 8 Active levothyroxine (SYNTHROID) 50 mcg tablet levothyroxine 50 mcg tablet TAKE 1 TABLET BY MOUTH DAILY FOR HYPOTHYROIDISM 1 Active metoprolol tartrate, short acting, (LOPRESSOR) 25 mg tablet Take 1/2 tablet by mouth twice daily. 180 tablet 3 2 Active montelukast (SINGULAIR) 10 mg tablet Take 10 mg by mouth once daily. 3 Active bumetanide (BUMEX) 1 mg tablet Take 1 mg by mouth two times a day. 3 Active oxyCODONE IR (ROXICODONE) 5 mg immediate release tablet TAKE ONE TABLET BY MOUTH EVERY 6 HOURS NEEDED FOR MORE SEVERE PAIN 5 Active Active Problems Problem Noted Date Diagnosed Date Obesity, Class I, BMI 30-34.9 06/24/2022 Cerebrovascular accident (CVA) 05/30/2022 Former smoker 05/30/2022 JENNIFER (obstructive sleep apnea) 05/30/2022 Chronic congestive heart failure 05/30/2022 Chronic kidney disease 05/30/2022 Hx of aortic valve repair 05/30/2022 Malignant neoplasm of upper lobe of left lung Ductal carcinoma in situ (DCIS) of right breast 04/07/2021 Coronary artery disease invo lving [place] coronary artery without angina pectoris 07/28/2015 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 07/27/2015 Mild persistent asthma without complication 07/01 Atherosclerosis of [place] co ronary artery of [place] heart without angina pectoris 07/14/2015 Atrial fibrillation 06/15/2014 Arthritis Hypercholesteremia Mitral valve problem Kidney stones Resolved Problems Problem Noted Date Diagnosed Date Resolved Date Mass of upper lobe of left lung 06/13/2022 06/22/2022 Encounters Date Type Department Care Team Description 09/21/2024 11:00 AM EDT Visit (SP) Office Hematology/Oncology [address] [place] [address] [place] [address] Ky Adan MD Malignant neoplasm of upper lobe of left lung (HCC) (Primary Dx); Ductal carcinoma in situ (DCIS) of right breast; Age-related osteoporosis without current pathological fracture 09/21/2024 Travel from Last 3 Months Immunizations Immunization Administration Dates Next Due AS03 adjuvant 04/20/2020,04/30/2018 COVID-19 original vaccine, a ge 12+ yr, monovalent (PFIZER-BIONTECH - RAZO TOP) 01/19/2022 COVID-19 original vaccine, a ge 12+ yr, monovalent (PFIZER-BIONTECH - PURPLE TOP) 03/28/2021,08/19/2020,07/29/2020 COVID-19 vaccine, unspecifie d formulation 08/19/2020,07/19/2020 influenza (HD-IIV3) vaccine, age 65+ yr, high dose, trivalent, PF (FLUZONE HIGH-DOSE) 05/05/2019 influenza (HD-IIV4) vaccine, age 65+ yr, high dose, quadrivalent, PF (FLUZONE HIGH-DOSE) 04/12/2022 influenza (IIV3) vaccine, tr ivalent (AFLURIA, FLULAVAL, FLUVIRIN, FLUZONE) 05/26/2013 influenza (IIV4) vaccine, ag e 6 mo - 64 yr, quadrivalent (AFLURIA, FLULAVAL, FLUZONE) 03/04/2019 influenza (IIV4) vaccine, ag e 6 mo - 64 yr, quadrivalent, PF (AFLURIA, FLUARIX, FLULAVAL, FLUZONE) 04/20/2020,05/08/2017,05/28/2016 influenza (LAIV) vaccine, na brian, unspecified formulation 05/01/2019,04/30/2018,05/10/2017,05/02,04/22/2014 influenza (LAIV4) vaccine, quadrivalent, live, intranasal (FLUMIST) 04/24/2021 influenza (aIIV3) vaccine, a ge 65+ yr, trivalent, PF (FLUAD) 04/30/2018 influenza (aIIV4) vaccine, a ge 65+ yr, quadrivalent, PF (FLUAD QUAD) 04/29/2023,04/24/2021,03/04/2019 influenza vaccine, unspecifi ed formulation 05/01/2019 influenza vaccine, whole virus 05/02/2015,2013 pneumococcal conjugate (PCV1 3) vaccine, 13 valent (PREVNAR 13) 01/25/2016 pneumococcal conjugate (PCV2 0) vaccine, 20 valent (PREVNAR 20) 05/29/2022 pneumococcal polysaccharide (PPV23) vaccine, 23 valent (PNEUMOVAX 23) 07/25/2017,05/07/2014 tetanus diphtheria pertussis (Tdap) vaccine, age 7+ yr (ADACEL, BOOSTRIX) 09/06/2021 zoster (RZV) vaccine, recomb inant (SHINGRIX) 10/01/2018,07/23/2018 zoster (ZVL) vaccine, live (ZOSTAVAX) 10/26/2013 ,11/04/2012 Family History Medical History Relation Comments Arthritis Brother 1 Diabetes Brother 1 Bladder cancer Brother 2 Heart disease Brother 2 Diabetes Father Heart Father age 75 Stroke Father Pancreatic Cancer Maternal Aunt Coronary Artery Disease Mother Diabetes Mother Heart Mother age 89 Pancreatic Cancer Mother Breast Cancer Sister 1 Breast Cancer Sister 2 Relation Status Comments Brother 1 Brother 2 Father Maternal Aunt Mother Sister 1 Alive Sister 2 Alive Social History Tobacco Use Types Packs/Day Years Used Date Smoking Tobacco: Former Cigarettes 0.5 8 1 08/17/1962 - 06/16/1971 Passive Smoke Exposure: Past Smokeless Tobacco: Never Tobacco Cessation:Counseling Given: No Alcohol Use Standard Drinks/Week Comments No 0 [...] place to sleep or slept in a custodial (including now)? No 06/14/2022 Area Deprivation Index Answer Date Juarez rded National Score (1-100), lowe r number is lower risk 39 11/13/2022 State Score (1-10), lower number is lower risk 2 11/13/2022 Data from: https://www.neighborhoodatlas.medicine.[facility].edu /. Last address used for calculation [address] 11/13/2022 Comments No Sex and Gender Information Value Date Recorded Sex Assigned at Not on file Legal Sex Female 2:14 PM EST Gender Identity Not on file Sexual Orientation Not on file Occupation Industry Job Start Date Job End Date retired Not on file Not on file Not on file Last Filed Vital Signs Vital Sign Reading Time Taken Comments Blood Pressure 124/58 09/21/2024 10:57 AM EDT Pulse 68 09/21/2024 10:57 AM EDT Temperature 36.3 C (97.3 F) 09/21/2024 10:57 AM EDT Respiratory Rate 18 09/21/2024 10:5 7 AM EDT Oxygen Saturation 98% 09/21/2024 10: 57 AM EDT Inhaled Oxygen Concentration - - Weight 76.6 kg (168 lb 12.8 oz) 09/21/2024 10:57 AM EDT pt reported Height 165.1 cm (5' 5 ) 11/26/2023 10:0 8 AM EDT Body Mass Index 28.09 11/26/2023 10:08 AM EDT Plan of Treatment Upcoming Encounters Date Type Department Care Team (Latest Contact Info) Description 02/15/2025 10:00 AM EDT Appointment Radiology Pet [facility] [address] [facility] [place] [address] pet 02/22/2025 11:00 AM EDT Visit (SP) Office Hematology/Oncology [address] [facility] [address] Herbert Swenson MD [address] [facility] [place] [address] [address] Vernon / SURESH pt Health Maintenance Due Date Last Done Comments Anxiety Screening 1958 Depression Screening 1958 Advance Directive Discussion 07/01/2024 Covid-19 Vaccine (2023-2 5 season) 2024 03/10/2024, 04/19/2022, 01/19/2022, Additional history exists LDL Cholesterol 05/11/2025 05/11/2024, 10/29, 04/29/2023, Additional history exists Diabetes Screening 08/17/2027 08/17/2024, 1 07/11/2023, 11/26/2023, Additional history exists DTaP,Tdap,Td Vaccine (2 - Td or Tdap) 09/07/2031 09/06/2021 Cologuard (FIT-DNA) Discontinued 09/24/2018 Colorectal Cancer Screening Discontinued Shingrix Vaccine Completed 10/01/2018, , 10/26/2013, Additional history exists Pneumococcal Vaccine: 50+ Completed 2021, 07/25/2017, 01/25/2016, Additional history exists Bone Density Screening Completed , 05/31/2021, 05/31/2021, Additional history exists RSV Vaccine Completed 06/26/2023 Influenza Vaccine Completed 05/11/2024, , 04/12/2022, Additional history exists CT Colonography Discontinued Colonoscopy Discontinued Fecal Occult Blood Discontinued Sigmoidoscopy Discontinued Medical Devices Implanted Type Area Children'S Nursery Assistant Device Identifier Shelf Expiration Date Model / Serial / Lot Xtn-Wn-I-Kind Implant - [id number] Implanted:Qty: 3 on 07/27/2015 at [facility] Cement / Putty Right: Bone - Knee [employer] 01/28/2017 [id number] / / [id number] Description:Bone Cement Kml-Dc-C-Kind Implant - [id number] Implanted:Qty: 1 on 07/27/2015 at [facility] Implant Right: Bone - Knee [employer] 12/18/2024 [id number] / / [id number] Description:4mm Legion Offse t Fishing Floats Assembler Bix-Hj-A-Kind Implant - [id number] Implanted:Qty: 1 on 07/27/2015 at [facility] Implant Right: Bone - Knee [employer] 10/28/2024 [id number] / / [id number] Description:Legion Offset Co upler Vzf-Fp-X-Kind Implant - [id number] Implanted:Qty: 1 on 07/27/2015 at [facility] Implant Right: Bone - Knee [employer] 09/28/2023 [id number] / / [id number] Description:Femoral Componen t Wedge Legion 4 5mm Femoral Screw Knee - [id number] Implanted:Qty: 1 on 07/27/2015 at [facility] Implant Right: Bone - Knee [employer] 12/29/2023 [id number] / / [id number] Description:Femoral Screw Swx-Yd-P-Kind Implant - [id number] Implanted:Qty: 1 on 07/27/2015 at [facility] Implant Right: Bone - Knee [employer] 08/28/2024 [id number] / / [id number] Zfz-Cm-H-Kind Implant - [id number] Implanted:Qty: 1 on 07/27/2015 at [facility] Implant Right: Bone - Knee [employer] 09/27/2024 [id number] / / [id number] Description:Screw on tibial wedge Oqe-Cz-W-Kind Implant - [id number] Implanted:Qty: 1 on 06/13/2022 by Jacques Amaral MD at [facility] Implant Left: Lung [employer] 11/19/2022 [id number] / / [id number] Stem Legion 12mm 120mm Femoral Press Fit Knee - [id number] Implanted:Qty: 1 on 07/27/2015 at [facility] Joint - Knee Right: Bone - Knee [employer] 01/27/2025 [id number] / / [id number] Description:Stem Stem Legion 16mm 120mm Femoral Press Fit Knee - [id number] Implanted:Qty: 1 on 07/27/2015 at [facility] Joint - Knee Right: Bone - Knee [employer] 09/27/2021 [id number] / / [id number] Description:Stem Insert Legion 1-2 Xlpe 15mm Tibial Posterior Stabilized High Flexion Knee - [id number] Implanted:Qty: 1 on 07/27/2015 at [facility] Joint - Knee Right: Bone - Knee [employer] 02/27/2023 [id number] / / [id number] Description:Articular Insert Baseplate Legion 2 Tibial Revision Knee Right - [id number] Implanted:Qty: 1 on 07/27/2015 at [facility] Joint - Knee Right: Bone - Knee [employer] 04/30/2024 [id number] / / [id number] Description:Tibial Baseplate Restrictor Anderson 18.5mm 18.5 Cement Sterile Latex Free Femur Hip - [id number] Implanted:Qty: 1 on 07/27/2015 at [facility] Joint Right: Bone - Knee [employer] 04/14/2025 [id number] / / [id number] Description:Cement Restricto r Procedures Procedure Name Priority Date/Time Associated Diagnosis Comments COMPREHENSIVE METABOLIC PANEL Routine 08/17/2024 9:39 AM EST Malignant neoplasm of upper lobe of left lung (HCC) from Last 3 Months or Most Recently Relevant to Health Maintenance Results * (ABNORMAL) COMPREHENSIVE METABOLIC PANEL (08/17/2024 9:39 AM EST) Pathologist [facility] [place] Protein, Total 6.5 6.3 - 8.0 g/dL 08/17/2024 11:48 AM EST [facility] Albumin 4.3 3.9 - 4.9 g/dL 08/17/2024 11:48 AM [facility] Calcium, Total 10.0 8.5 - 10.2 mg/dL 08/17/2024 11:48 AM [facility] Bilirubin, Total 0.5 0.2 - 1.3 mg/dL 08/17/2024 11:48 AM [facility] Alkaline Phosphatase 118 34 - 123 U/L 08/17/2024 11:48 AM [facility] AST 17 13 - 35 U/L 08/17/2024 11:48 AM [facility] ALT 7 7 - 38 U/L 08/17/2024 11:48 AM [facility] Glucose 127(H) 74 - 99 mg/dL 08/17/2024 11:48 AM [facility] Comment: The [place] Diabetes Association (ADA) provides guidance for cutoff values for fasting glucose and random glucose. The ADA defines fasting as no caloric intake for at least 8 hours. Fasting plasma glucose results between 100 to 125 mg/dL indicate increased risk for diabetes (prediabetes). Fasting plasma glucose results greater than or equal to 126 mg/dL meet the criteria for diagnosis of diabetes. In the absence of unequivocal hyperglycemia, results should be confirmed by repeat testing. In a patient with classic symptoms of hyperglycemia or hyperglycemic crisis, random plasma glucose results greater than or equal to 200 mg/dL meet the criteria for diagnosis of diabetes. Reference: Standards of Medical Care in Diabetes 2016, [place] Diabetes Association. Diabetes Care. 2016.39(Suppl 1). BUN 20 7 - 21 mg/dL 08/17/2024 11:48 AM [facility] Creatinine 1.15(H) 0.58 - 0.96 mg/dL 08/17/2024 11:48 AM [facility] Sodium 143 136 - 144 mmol/L 08/17/2024 11:48 AM [facility] Potassium 3.6(L) 3.7 - 5.1 mmol/L 08/17/2024 11:48 AM [facility] Chloride 104 98 - 107 mmol/L 08/17/2024 11:48 AM EST [facility] CO2 27 22 - 30 mmol/L 08/17/2024 11:48 AM EST [facility] Anion Gap 12 8 - 15 mmol/L 08/17/2024 11:48 AM EST [facility] Estimated Glomerular Filtration Rate 47(L) >=60 mL/min/1. 73m 08/17/2024 11:48 AM EST [facility] Comment:Estimated Glomerular Filtration Rate (eGFR) is calculated using the 2020 CKD-EPI creatinine equation. This equation utilizes serum creatinine, sex, and age as parameters. The creatinine assay has traceable calibration to isotope dilution- mass spectrometry. Refer to KDIGO guidelines for clinical interpretation. In patients with unstable renal function, e.g. those with acute kidney injury, the eGFR may not accurately reflect actual GFR. Blood BLOOD SPECIMEN / Unknown Venipuncture / Unknown 08/17/2024 9:39 AM EST 08/17/2024 9:39 AM EST Ky Adan MD LABORATORY Final Result [facility] [address] [place] [address] from Last 3 Months or Most Recently Relevant to Health Maintenance Insurance MEDICARE RAILROAD MEDICARE [employer] PROTECT [place] [id number] Advance Directives Documents on File Type Date Recorded Patient Button Inspector Expl anation Advance Directive(s) 06/14/2022 2:09 PM Advance Directive(s) 07/27/2015 6:39 AM * Full Code (Latest Code Status on File) Date Activated Date Inactivated Comments 06/13/2022 5:25 PM 06/24/2022 4:08 PM Question Answer Comments Full Code Order Discussed With: Patient Care Teams Tractor Trailer Mechanic Relationship Specialty Start Date End Date Jasmyne Casillas CNP [address] [place] [address] PCP - General Family Medicine 04/06/21 Vahe Gottlieb MD [address] [place] [address] Cardiology 10/14/13 Tuan Inman Jr., MD [address] [place] [address] Orthopedics 07/19/15 Ky Adan MD [address] [facility] [place] [address] Physician Hematology/Oncology 07/06/20 Chelle Marin APRN.DRY CLEANING TEACHER [address] [facility] [place] [address] Nurse Practitioner Hematology/Oncology 07/06/20 Babatunde Pizarro MD [address] [facility] [place] [address] Radiation Oncology 07/07/20 Cameron Pappas MD [address] [place], [place] [address] [address] Cardiology 05/18/22
[2024-11-19 10:04] LABS: Basophils Absolute Auto 0.1 10^3/uL (0.0-0.1); Basophils Percent Auto 1.2 % (0.2-2.0); Eosinophils Absolute Auto 0.4 10^3/uL (0.0-0.7); Eosinophils Percent Auto 5.5 % (0.9-7.0); Hematocrit 28.5 % (36.0-48.0); Hemoglobin 8.7 g/dL (12.0-16.0); Immature Granulocytes Abs Auto 0.02 10^3/uL (0.00-0.03); Immature Granulocytes Pct Auto 0.3 % (0.0-0.5); Lymphocytes Absolute Auto 1.6 10^3/uL (1.2-3.8); Lymphocytes Percent Auto 23.5 % (20.5-60.0); Mean Corpuscular HGB Conc 30.5 g/dL (29.9-35.2); Mean Corpuscular Hemoglobin 27.2 pg (26.7-34.0); Mean Corpuscular Volume 89.1 fL (81.0-99.0); Mean Platelet Volume 9.9 fL (9.5-13.5); Monocytes Absolute Auto 0.6 10^3/uL (0.3-0.8); Monocytes Percent Auto 8.8 % (1.7-12.0); Neutrophils Absolute Auto 4.1 10^3/uL (1.4-6.5); Neutrophils Percent Auto 60.7 % (43.0-75.0); Platelet Count 229 10^3/uL (150-450); Red Cell Distribution Width 15.4 % (11.0-15.0); White Blood Count 6.7 10^3/uL (4.0-11.0)
[2024-11-19 10:54] LABS: Alanine Aminotransferase 21 U/L (14-59); Albumin Level 3.4 g/dL (3.4-5.0); Alkaline Phosphatase 100 U/L (46-116); Anion Gap 13.1; Aspartate Amino Transferase 24 U/L (15-37); BUN Creatinine Ratio 23.8; Bilirubin Total 0.3 mg/dL (0.2-1.0); Carbon Dioxide 29.4 mmol/L (21.0-32.0); Chloride 108 mmol/L (98-107); Estimated GFR (African America 49 (>=60 mL/min/1.73m^2); Estimated GFR (Non-African Ame 41 (>=60 mL/min/1.73m^2); Globulin 3.5 g/dL; Glucose 104 mg/dL (74-106); Potassium 4.5 mmol/L (3.5-5.1); Sodium 146 mmol/L (136-145); Total Protein 6.9 g/dL (6.4-8.2)
== END 2024-11-19 09:45 | disposition home or self-care (01) ==
LOC: LAB 09:45
PROVIDERS: Visit Provider Internal Medicine Interventional Cardiology
DX: I25.10 Atherosclerotic heart disease of native coronary artery without angina pectoris (principal); R06.02 Shortness of breath
CPT/HCPCS: 36415; 80053; 83880; 85025

== ENCOUNTER 2024-11-26 11:34 | Outpatient (OUT) | payer MEDICARE, OTHER, SELFPAY ==
--- OUTSIDE RECORDS SUMMARY | 2011-12-12 | XMS_ITS | Encounter Summary ---
Author Organization [facility] Address [address] [place] [address] Care Team Providers Care Supplier Diversity Director Name Role Phone Kenan Dias Primary Care Provider Jerrell muniz Encounter Details Date Type Department Care Team (Late st Contact Info) Description 12/12/2011 Hospital Encounter [facility] Department [address] [place] [address] Alberto Knowles, DO [address] [phone] Social History Tobacco Use Types Packs/Day Years Used Date Smoking Tobacco: Former Cigarettes 0.5 7 0 07/01/1963 - 07/01/1970 Smokeless Tobacco: Never Alcohol Use Standard Drinks/Week Comments No 0 (1 standard drink = 0.6 oz pur e alcohol) [facility] Utilities Answer Date Recorded In the past 12 months has [employer], gas, oil, or water [employer] threatened to shut off services in your home? No 08/10/2024 AUDIT-C Answer Date Recorded Q1: How often do you have a drink containing alcohol? Never 11/11/2023 Q2: How many drinks containi ng alcohol do you have on a typical day when you are drinking? Patient does not drink Q3: How often do you have si x or more drinks on one occasion? Never 11/11/2023 Overall Financial Resource Strain (CARDIA) Answe r Date Recorded How hard is it for you to pa y for the very basics like food, housing, medical care, and heating? Not hard at all 05/11/2024 PHQ-2 Answer Date Recorded PHQ-9 Total Score 0 08/10/2024 Exercise Vital Sign Answer Date Recorde d On average, how many days pe r week do you engage in moderate to strenuous exercise (like a brisk walk)? 7 days 11/11/2023 On average, how many minutes do you engage in exercise at this level? 30 min 11/11/2023 Hunger Vital Sign Answer Date Recorded Within the past 12 months, y ou worried that your food would run out before you got the money to buy more. Never true 08/10/19 25 Within the past 12 months, t he food you bought just didn't last and you didn't have money to get more. Never true 08/10/2024 PRAPARE - Transportation Answer Date Re corded In the past 12 months, has l ack of transportation kept you from medical appointments or from getting medications? No 08/01 In the past 12 months, has l ack of transportation kept you from meetings, work, or from getting things needed for daily living? No 08/10/2024 Housing Stability Vital Sign Answer Gregor e Recorded Unable to Pay for Housing in the Last Year Not o n file 04/29/2023 Number of Places Lived in the Last Year Not on f ile 04/29/2023 In the last 12 months, was t here a time when you did not have a steady place to sleep or slept in a prison (including now)? No 04/29/2023 Housing Stability Vital Sign Answer Gregor e Recorded In the last 12 months, was t here a time when you were not able to pay the mortgage or rent on time? No 08/10/2024 In the past 12 months, how m any times have you moved where you were living? 0 08/10/2024 At any time in the past 12 m [facility], were you homeless or living in a prison (including now)? No 08/10/2024 Food Insecurity Answer Date Recorded Within the past 12 months, y ou worried that your food would run out before you got the money to buy more. 1 08/10/2024 Within the past 12 months, t he food you bought just didn't last and you didn't have money to get more. 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 No / Unsure 04/25/2022 9:17 AM EDT documented as of this encounter Functional Status * Question Answer Date of Assessment Author Q1: How often do you have a drink containing alcohol? Never 11/11/2023 9:19 AM EDT Melisa Ogden LP N Q2: How many drinks containing alcohol do you have on a typical day when you are drinking? Patient does not drink 11/11/2023 9:19 AM EDT Melisa Ogden LPN Q3: How often do you have six or more drinks on one occasion? Never 11/11/2023 9:19 AM EDT Melisa Ogden LP N * Audit-C Score Answer Date of Assessment Author 0 11/11/2023 9:19 AM EDT Theo Ogden LPN documented as of this encounter Plan of Treatment Upcoming Encounters Date Type Department Care Team (Late st Contact Info) Description 11/30/2024 9:20 AM EDT Office Visit [facility] [address] [place] [phone] Jasmyne Casillas, ACID CONDITIONING WORKER - DISTANCE [place] [address] Yearly AWV 01/04/2025 9:45 AM EDT Office Visit [facility] PUL Part of [facility] [address] [place] [address] Tapan Ellsworth MD [address] [address] 6m f/u with download documented as of this encounter Visit Diagnoses Not on filedocumented in this encounter Additional Health Concerns Infection Onset Date Last Indicated Resolved Time COVID-19 (Rule Out) 11/11/2019 11/13/2019 11/13/19 20 10:14 PM EDT documented as of this encounter Care Teams Supplier Diversity Director Relationship Specialty Start Date End Date Kenan Dias [address] [place] [address] PCP - General 08/20/11 03/17/12 documented as of this encounter
--- OUTSIDE RECORDS SUMMARY | 2012-09-02 10:00 | XMS_ITS | Encounter Summary ---
Author Organization [facility] Address [address] [place] [address] Care Team Providers Care Greeting Card Maker Name Role Phone Eleazar Collins DO Primary Care Provider Unavailab le Encounter Details Date Type Department Care Team (Late st Contact Info) Description 09/02/2012 9:00 AM [facility] Hospital Encounter [facility] PRE ADMIT [address] [place] [address] Alberto Knowles DO [address] [phone] Social History Tobacco Use Types Packs/Day Years Used Date Smoking Tobacco: Former Cigarettes 0.5 7 0 07/01/1963 - 07/01/1970 Smokeless Tobacco: Never Alcohol Use Standard Drinks/Week Comments No 0 (1 standard drink = 0.6 oz pur e alcohol) [facility] Utilities Answer Date Recorded In the past 12 months has [email or web address], gas, oil, or water [employer] threatened to shut off services in your [...] place to sleep or slept in a alf (including now)? No 04/29/2023 Housing Stability Vital Sign Answer Gregor e Recorded In the last 12 months, was t here a time when you were not able to pay the mortgage or rent on time? No 08/10/2024 In the past 12 months, how m any times have you moved where you were living? 0 08/10/2024 At any time in the past 12 m [facility], were you homeless or living in a alf (including now)? No 08/10/2024 Food Insecurity Answer [...] AM EDT documented as of this encounter Last Filed Vital Signs Vital Sign Reading Time Taken Comments Blood Pressure 132/68 09/02/2012 9:36 AM EST Pulse 64 09/02/2012 9:36 AM EST Temperature 36.9 C (98.4 F) 09/02/2012 9:36 AM EST Respiratory Rate 16 09/02/2012 9:36 AM EST Oxygen Saturation 97% 09/02/2012 9:36 AM EST Inhaled Oxygen Concentration - - Weight 86.2 kg (190 lb) 09/02/2012 9:36 AM EST Height 165.1 cm (5' 5 ) 09/02/2012 9:36 AM EST Body Mass Index 31.62 09/02/2012 9:36 AM EST documented in this encounter Functional Status * Question Answer [...] occasion? Never 11/11/2023 9:19 AM EDT Melisa Ogdne LP N * Audit-C Score Answer Date of Assessment Author 0 11/11/2023 9:19 AM EDT Theo Ogden LPN documented as of this encounter Plan of Treatment Upcoming Encounters Date Type Department Care Team (Late st Contact Info) Description 11/30/2024 9:20 AM EDT Office Visit [address] [phone] Jasmyne Casillas, LANGUAGE TEACHER - PACKING MACHINE FEEDER [address] [place] [address] Yearly AWV 01/04/2025 9:45 AM EDT Office Visit [facility] PUL Part of [facility] [address] [place] [address] Tapan Ellsworth MD 2[address] [facility] [address] [place] [address] 6m f/u with download documented as of this encounter Visit Diagnoses Not on filedocumented in this encounter Additional Health Concerns Infection Onset Date Last Indicated Resolved Time COVID-19 (Rule Out) 11/11/2019 11/13/2019 11/13/19 20 10:14 PM EDT documented as of this encounter Care Teams Greeting Card Maker Relationship Specialty Start Date End Date Eleazar Collins DO PCP - General 09/02/12 06/14/14 documented as of this encounter
--- OUTSIDE RECORDS SUMMARY | 2013-05-14 09:44 | XMS_ITS | Encounter Summary ---
Author Organization [facility] [employer] [facility] Address [address] [place] [address] Care Team Providers Care Queen'S Counsel Name Role Phone Eleazar Collins DO Primary Care Provider Unavail le Encounter Details Date Type Department Care Team (Late st Contact Info) Description 05/14/2013 8:44 AM EST Hospital Encounter [facility] [address] [place] [address] Edmundo Miller MD [address] [phone] Social History Tobacco Use Types Packs/Day Years Used Date Smoking Tobacco: Former Cigarettes 0.5 7 0 07/01/1963 - 07/01/1970 Smokeless Tobacco: Never Alcohol Use Standard Drinks/Week Comments No 0 (1 standard drink = 0.6 oz pur e alcohol) [facility] Utilities Answer Date Recorded In the past 12 months has [employer], gas, oil, or water [employer] threatened to shut off services in your [...] place to sleep or slept in a care home (including now)? No 04/29/2023 Housing Stability Vital Sign Answer Gregor e Recorded In the last 12 months, was t here a time when you were not able to pay the mortgage or rent on time? No 08/10/2024 In the past 12 months, how m any times have you moved where you were living? 0 08/10/2024 At any time in the past 12 m [facility], were you homeless or living in a care home (including now)? No 08/10/2024 Food Insecurity Answer [...] Description 11/30/2024 9:20 AM EDT Office Visit [facility] [address] [place] [address] Jasmyne Casillas, BAILER OPERATORS SUPERVISOR - DIRECTOR OF [place] [address] Yearly AWV 01/04/2025 9:45 AM EDT Office Visit [facility] PUL Part of [address] [address] Tapan Ellsworth MD [address] [facility] [address] [place] [phone] 6m f/u with download documented as of this encounter Procedures Procedure Name Priority Date/Time Associated Diagnosis Comments GIAN DIGITAL SCREEN W OR WO CAD BILATERAL Routine 05/14/2013 9:15 AM EST documented in this encounter Results * GIAN Digital Screen Bilateral (05/14/2013 9:15 AM EST) Anatomical Region Laterality Modality Breast Bilateral Mammography 05/14/2013 9:15 AM EST Narrative 05/14/2013 7:12 PM EST FINAL Procedure: [facility] May 14 2013 9:15AM [id number] MAMMOGRAM DIGITAL SCREEN BILAT Reason for Exam: Screening FULL RESULT: HISTORY: Screening. Family history of breast carcinoma in patient's sister. TECHNIQUE: Bilateral digital screening mammogram with CAD. COMPARISON: 04/28/2012, 07/06/2010. FINDINGS: Heterogeneously dense fibroglandular tissue bilaterally symmetric. Scattered benign calcifications. No dominant mass or suspicious microcalcification. IMPRESSION: BI-RADS 2 - Benign, no evidence of malignancy. Normal interval followup is recommended in 12 months. OVERALL ASSESSMENT- BENIGN A letter of notification will be sent to the patient regarding the results. Transcribed by: [facility] on May 14 2013 7:09P Read by: Anjelica WHITEHEAD M.D. [id number] on May 14 2013 7:09P Electronically Signed by: DR. Anjelica WHITEHEAD M.D. on: May 14 2013 7:09P Procedure Note Colten Whitehead Jr., MD - 05/14/2013 FINAL Procedure: [facility] May 14 2013 9:15AM [id number] MAMMOGRAM DIGITAL SCREEN BILAT Reason for Exam: Screening FULL RESULT: HISTORY: Screening. Family history of breast carcinoma in patient's sister. TECHNIQUE: Bilateral digital screening mammogram with CAD. COMPARISON: 04/28/2012, 07/06/2010. FINDINGS: Heterogeneously dense fibroglandular tissue bilaterally symmetric. Scattered benign calcifications. No dominant mass or suspicious microcalcification. IMPRESSION: BI-RADS 2 - Benign, no evidence of malignancy. Normal interval followup is recommended in 12 months. OVERALL ASSESSMENT- BENIGN A letter of notification will be sent to the patient regarding the results. Transcribed by: [facility] on May 14 2013 7:09P Read by: Anjelica WHITEHEAD M.D. [id number] on May 14 2013 7:09P Electronically Signed by: DR. Anjelica WHITEHEAD M.D. on: May 14 2013 7:09P us Edmundo Miller MD IMG MAMMOGRAPHY ORDERABLES E dited Result - Final documented in this encounter Visit Diagnoses Not on filedocumented in this encounter Additional Health Concerns Infection Onset Date Last Indicated Resolved Time COVID-19 (Rule Out) 11/11/2019 11/13/2019 11/13/19 20 10:14 PM EDT documented as of this encounter Care Teams Queen'S Counsel Relationship Specialty Start Date End Date Eleazar Collins DO PCP - General 09/02/12 06/14/14 documented as of this encounter
--- OUTSIDE RECORDS SUMMARY | 2013-10-21 09:28 | XMS_ITS | Encounter Summary ---
Author Organization [facility] Address [address] [place] [address] Care Team Providers Care Hog Confinement System Manager Name Role Phone Eleazar Collins DO Primary Care Provider Unavailab le Encounter Details Date Type Department Care Team (Late st Contact Info) Description 10/21/2013 9:28 AM EDT Hospital Encounter [facility] RAD[facility] [address] [place] [address] Kaden Akers MD [address] [place] [address] Social History Tobacco Use Types Packs/Day Years Used Date Smoking Tobacco: Former Cigarettes 0.5 7 0 07/01/1963 - 07/01/1970 Smokeless Tobacco: Never Alcohol Use Standard Drinks/Week Comments No 0 (1 standard drink = 0.6 oz pur e alcohol) [facility] Utilities Answer Date Recorded In the past 12 months has [employer], gas, oil, or water [employer] threatened to shut off services in your [...] place to sleep or slept in a snf (including now)? No 04/29/2023 Housing Stability Vital Sign Answer Gregor e Recorded In the last 12 months, was t here a time when you were not able to pay the mortgage or rent on time? No 08/10/2024 In the past 12 months, how m any times have you moved where you were living? 0 08/10/2024 At any time in the past 12 m [facility], were you homeless or living in a snf (including now)? No 08/10/2024 Food Insecurity Answer [...] Description 11/30/2024 9:20 AM EDT Office Visit [facility] [address] [place] [phone] Jasmyne Casillas, ATLASSIAN ADMINISTRATOR - CERTIFIED MASTER SAFE TECHNICIAN [address] [phone] Yearly AWV 01/04/2025 9:45 AM EDT Office Visit [facility] PUL Part of [address] [address] Tapan Ellsworth MD [address] [facility] [address] [place] [address] 6m f/u with download documented as of this encounter Procedures Procedure Name Priority Date/Time Associated Diagnosis Comments RADIOLOGY REPORT 10/22/2013 10:5 1 AM EDT US RENAL COMPLETE Routine 10/21/2013 10: 02 AM EDT documented in this encounter Results * RADIOLOGY REPORT (10/22/2013 10:51 AM EDT) Anatomical Region Laterality Modality Radiographic Lolis ging Narrative Procedure Note SCANNING, [facility] - 10/22/2013 10:51 AM EDT us [facility] Scanning IMG DIAGNOSTIC IMAGING ORDERABLE S Final Result * US Renal Complete (10/21/2013 10:02 AM EDT) Anatomical Region Laterality Modality Abdomen Other 10/21/2013 10:0 2 AM EDT Narrative 10/21/2013 1:37 PM EDT FINAL Procedure: [facility] Oct 21 2013 10:02AM [id number] US RENAL KIDNEY Reason for Exam: renal calculus FULL RESULT: HISTORY: Renal calculus. TECHNIQUE: Renal ultrasound. COMPARISON: Renal ultrasound 04/09/2013. FINDINGS: RIGHT KIDNEY: 10 cm in length x 4.3 x 6.1 cm with resistive index 0.64, which is normal. Cortical thickness 13 mm. LEFT KIDNEY: 10.7 x 5.9 x 5.1 cm with mild elevation of resistive index 0.73. Cortical thickness 20 mm. No hydronephrosis. A 2.3 cm in greatest diameter cyst containing calcification is not significantly changed from a CT scan of 05/11/2011. IMPRESSION: Benign-appearing cyst with dependent calcification middle third right kidney not significantly changed. Transcribed by: [facility] on Oct 21 2013 1:35P Read by: Anjelica WHITEHEAD M.D. [id number] on Oct 21 2013 1:35P Electronically Signed by: DR. Anjelica WHITEHEAD M.D. on: Oct 21 2013 1:35P Procedure Note Colten Whitehead Jr., MD - 10/21/2013 FINAL Procedure: [facility] Oct 21 2013 10:02AM [id number] US RENAL KIDNEY Reason for Exam: renal calculus FULL RESULT: HISTORY: Renal calculus. TECHNIQUE: Renal ultrasound. COMPARISON: Renal ultrasound 04/09/2013. FINDINGS: RIGHT KIDNEY: 10 cm in length x 4.3 x 6.1 cm with resistive index 0.64, which is normal. Cortical thickness 13 mm. LEFT KIDNEY: 10.7 x 5.9 x 5.1 cm with mild elevation of resistive index 0.73. Cortical thickness 20 mm. No hydronephrosis. A 2.3 cm in greatest diameter cyst containing calcification is not significantly changed from a CT scan of 05/11/2011. IMPRESSION: Benign-appearing cyst with dependent calcification middle third right kidney not significantly changed. Transcribed by: [facility] on Oct 21 2013 1:35P Read by: Anjelica WHITEHEAD M.D. [id number] on Oct 21 2013 1:35P Electronically Signed by: DR. Anjelica WHITEHEAD M.D. on: Oct 21 2013 1:35P us Kaden Akers MD [facility] US ORDERABLES Edited Res ult - Final documented in this encounter Visit Diagnoses Not on filedocumented in this encounter Additional Health Concerns Infection Onset Date Last Indicated Resolved Time COVID-19 (Rule Out) 11/11/2019 11/13/2019 11/13/19 20 10:14 PM EDT documented as of this encounter Care Teams Hog Confinement System Manager Relationship Specialty Start Date End Date Eleazar Collins DO PCP - General 09/02/12 06/14/14 documented as of this encounter
--- OUTSIDE RECORDS SUMMARY | 2013-12-24 09:29 | XMS_ITS | Encounter Summary ---
Author Organization [facility] Address [address] [place] [address] Care Team Providers Care Regional Education Coordinator Name Role Phone Eleazar Collins DO Primary Care Provider Unavailab le Encounter Details Date Type Department Care Team (Late st Contact Info) Description 12/24/2013 9:29 AM EDT Hospital Encounter [facility] RADIOLOGY [address] [place] [address] Edmundo Miller MD [address] [phone] Social History Tobacco Use Types Packs/Day Years Used Date Smoking Tobacco: Former Cigarettes 0.5 7 0 07/01/1963 - 07/01/1970 Smokeless Tobacco: Never Alcohol Use Standard Drinks/Week Comments No 0 (1 standard drink = 0.6 oz pur e alcohol) [facility] Utilities Answer Date Recorded In the past 12 months has [employer], gas, oil, or water [employer] threatened to shut off services in your [...] place to sleep or slept in a retirement (including now)? No 04/29/2023 Housing Stability Vital Sign Answer Gregor e Recorded In the last 12 months, was t here a time when you were not able to pay the mortgage or rent on time? No 08/10/2024 In the past 12 months, how m any times have you moved where you were living? 0 08/10/2024 At any time in the past 12 m [facility], were you homeless or living in a retirement (including now)? No 08/10/2024 Food Insecurity Answer [...] Description 11/30/2024 9:20 AM EDT Office Visit [facility] [address] [place] [phone] Jasmyne Casillas, REFERRAL AND INFORMATION AIDE - [place] [address] Yearly AWV 01/04/2025 9:45 AM EDT Office Visit [facility] PUL Part of [facility] [address] [place] [address] Tapan Ellsworth MD [address] [facility] [address] [place] [phone] 6m f/u with download documented as of this encounter Procedures Procedure Name Priority Date/Time Associated Diagnosis Comments RADIOLOGY REPORT 12/25/2013 1:02 PM EDT US BREAST COMPLETE RIGHT Routine 12/24/2013 10:02 AM EDT documented in this encounter Results * RADIOLOGY REPORT (12/25/2013 1:02 PM EDT) Anatomical Region Laterality Modality Radiographic Lolis ging Narrative Procedure Note SCANNING, [facility] - 12/25/2013 1:02 PM EDT us [facility] Scanning IMG DIAGNOSTIC IMAGING ORDERABLE S Final Result * US Breast Right (12/24/2013 10:02 AM EDT) Anatomical Region Laterality Modality Breast Right Other 12/24/2013 10:0 2 AM EDT Narrative 12/24/2013 1:12 PM EDT FINAL Procedure: [facility] Dec 24 2013 10:02AM [id number] US BREAST RT Reason for Exam: MASTODYNIA FULL RESULT: HISTORY: Tenderness beneath the right areola, medially. TECHNIQUE: Focused right breast ultrasound. COMPARISON: Bilateral mammogram 05/14/2013. FINDINGS: There is no cyst, mass, or shadowing to suggest a malignancy or a cyst as the cause for the patient's pain. IMPRESSION: Normal focused right breast ultrasound over an area of tenderness beneath the medial right areola. I do not feel a definite lump on my physical exam. If this area persists, a mammogram can be obtained. The findings were discussed with the patient. Transcribed by: [facility] on Dec 24 2013 1:10P Read by: Anjelica WHITEHEAD M.D. [id number] on Dec 24 2013 1:10P Electronically Signed by: DR. Anjelica WHITEHEAD M.D. on: Dec 24 2013 1:10P Procedure Note Colten Whitehead Jr., MD - 12/24/2013 FINAL Procedure: [facility] Dec 24 2013 10:02AM [id number] US BREAST RT Reason for Exam: MASTODYNIA FULL RESULT: HISTORY: Tenderness beneath the right areola, medially. TECHNIQUE: Focused right breast ultrasound. COMPARISON: Bilateral mammogram 05/14/2013. FINDINGS: There is no cyst, mass, or shadowing to suggest a malignancy or a cyst as the cause for the patient's pain. IMPRESSION: Normal focused right breast ultrasound over an area of tenderness beneath the medial right areola. I do not feel a definite lump on my physical exam. If this area persists, a mammogram can be obtained. The findings were discussed with the patient. Transcribed by: [facility] on Dec 24 2013 1:10P Read by: Anjelica WHITEHEAD M.D. [id number] on Dec 24 2013 1:10P Electronically Signed by: DR. Anjelica WHITEHEAD M.D. on: Dec 24 2013 1:10P us Edmundo Miller MD G US ORDERABLES Edited Res ult - Final documented in this encounter Visit Diagnoses Not on filedocumented in this encounter Additional Health Concerns Infection Onset Date Last Indicated Resolved Time COVID-19 (Rule Out) 11/11/2019 11/13/2019 11/13/19 20 10:14 PM EDT documented as of this encounter Care Teams Regional Education Coordinator Relationship Specialty Start Date End Date Eleazar Collins DO PCP - General 09/02/12 06/14/14 documented as of this encounter
--- OUTSIDE RECORDS SUMMARY | 2014-04-20 09:00 | XMS_ITS | Encounter Summary ---
Author Organization [facility] Address [address] [place] [address] Care Team Providers Care Scientific Helper Name Role Phone Eleazar Collins DO Primary Care Provider Unavailab le Encounter Details Date Type Department Care Team (Late st Contact Info) Description 04/20/2014 9:00 AM EDT Hospital Encounter [facility] PRE ADMIT [address] [place] [address] Alberto Knowles DO [address] [phone] Social History Tobacco Use Types Packs/Day Years Used Date Smoking Tobacco: Former Cigarettes 0.5 7 0 07/01/1963 - 07/01/1970 Smokeless Tobacco: Never Alcohol Use Standard Drinks/Week Comments No 0 (1 standard drink = 0.6 oz pur e alcohol) [facility] Utilities Answer Date Recorded In the past 12 months has [employer], gas, oil, or water [employer] threatened to shut off services in your [...] place to sleep or slept in a skilled nursing (including now)? No 04/29/2023 Housing Stability Vital Sign Answer Gregor e Recorded In the last 12 months, was t here a time when you were not able to pay the mortgage or rent on time? No 08/10/2024 In the past 12 months, how m any times have you moved where you were living? 0 08/10/2024 At any time in the past 12 m [facility], were you homeless or living in a skilled nursing (including now)? No 08/10/2024 Food Insecurity Answer [...] Sign Reading Time Taken Comments Blood Pressure 153/73 04/20/2014 9:19 AM EDT Pulse 53 04/20/2014 9:19 AM EDT Temperature - - Respiratory Rate 20 04/20/2014 9:19 AM EDT Oxygen Saturation - - Inhaled Oxygen Concentration - - Weight 86.2 kg (190 lb) 04/20/2014 9:19 AM EDT Height 165.1 cm (5' 5 ) 04/20/2014 9:19 AM EDT Body Mass Index 31.62 04/20/2014 9:19 AM EDT documented in this encounter Functional Status * [...] Description 11/30/2024 9:20 AM EDT Office Visit [facility] [place] [address] [place] [phone] Jasmyne Casillas, DIE MAKER BENCH STAMPING - DIGITAL SALES EXECUTIVE [address] [place] [address] Yearly AWV 01/04/2025 9:45 AM EDT Office Visit [facility] Part of [facility] [address] [place] [address] Tapan Ellsworth MD [address] [facility] [address] [place] [address] 6m f/u with download documented as of this encounter Visit Diagnoses Not on filedocumented in this encounter Additional Health Concerns Infection Onset Date Last Indicated Resolved Time COVID-19 (Rule Out) 11/11/2019 11/13/2019 11/13/19 20 10:14 PM EDT documented as of this encounter Care Teams Scientific Helper Relationship Specialty Start Date End Date Eleazar Collins DO PCP - General 09/02/12 06/14/14 documented as of this encounter
--- OUTSIDE RECORDS SUMMARY | 2014-04-22 10:10 | XMS_ITS | Encounter Summary ---
Author Organization [facility] Address [address] [place] [address] Care Team Providers Care Tool Liaison Name Role Phone Eleazar Collins DO Primary Care Provider Unavailab le Encounter Details Date Type Department Care Team (Late st Contact Info) Description 04/22/2014 10:10 AM EDT Hospital Encounter [facility] [address] [place] [address] Kaden Akers MD [address] [place] [address] Social History Tobacco Use Types Packs/Day Years Used Date Smoking Tobacco: Former Cigarettes 0.5 7 0 07/01/1963 - 07/01/1970 Smokeless Tobacco: Never Alcohol Use Standard Drinks/Week Comments No 0 (1 standard drink = 0.6 oz pur e alcohol) [facility] Utilities Answer Date Recorded In the past 12 months has [employer], gas, oil, or water [employer] threatened to shut off services in your [...] place to sleep or slept in a longterm (including now)? No 04/29/2023 Housing Stability Vital Sign Answer Gregor e Recorded In the last 12 months, was t here a time when you were not able to pay the mortgage or rent on time? No 08/10/2024 In the past 12 months, how m any times have you moved where you were living? 0 08/10/2024 At any time in the past 12 m [facility], were you homeless or living in a longterm (including now)? No 08/10/2024 Food Insecurity Answer [...] Description 11/30/2024 9:20 AM EDT Office Visit [facility] [place] [address] [place] [phone] Jasmyne Casillas, EQUINE INTERNSHIP - CHEMIST ASSISTANT [address] [phone] Yearly AWV 01/04/2025 9:45 AM EDT Office Visit [facility] PUL Part of [address] [address] Tapan Ellsworth MD [address] [facility] [address] [place] [address] 6m f/u with download documented as of this encounter Procedures Procedure Name Priority Date/Time Associated Diagnosis Comments RADIOLOGY REPORT 04/23/2014 12:4 9 PM EDT US RENAL COMPLETE Routine 04/22/2014 11: 11 AM EDT documented in this encounter Results * RADIOLOGY REPORT (04/23/2014 12:49 PM EDT) Anatomical Region Laterality Modality Radiographic Lolis ging us IMG DIAGNOSTIC IMAGING ORDERABLE S Final Result * US Renal Complete (04/22/2014 11:11 AM EDT) Anatomical Region Laterality Modality Abdomen Other 04/22/2014 11:1 1 AM EDT Narrative 04/22/2014 1:41 PM EDT FINAL Procedure: WUS Apr 22 2014 11:11AM [id number] US RENAL KIDNEY Reason for Exam: renal calculus, renal cyst FULL RESULT: HISTORY: Renal calculus, renal cyst. Patient states prior lithotripsy right kidney. TECHNIQUE: Renal ultrasound. COMPARISON: 10/21/2013, 04/09/2013. FINDINGS: RIGHT KIDNEY: 9.8 cm in length x 4.7 x 5.2 cm with resistive index slightly elevated at 0.70. Cortical thickness, 11 mm. LEFT KIDNEY: 10.3 x 5.8 x 6.3 cm with resistive index normal at 0.67. Cortical thickness, 16 mm. Previously seen right renal cyst with layering dependent calcifications is completely stable with a smooth wall. It measures 1.5 cm in diameter. The technologist measured a subtle area of decreased echogenicity in the midpole left kidney but I do not believe this represents a true cyst or mass. No significant change from prior study. IMPRESSION: 1. Benign cyst in the right kidney, unchanged with dependent calcifications. 2. The technologist measured a subtle area of decreased echogenicity in the midpole left kidney but I do not believe this represents a true cyst or mass. 3. Overall, no significant change from previous study. Transcribed by: [facility] on Apr 22 2014 1:37P Read by: Anjelica WHITEHEAD M.D. [id number] on Apr 22 2014 1:37P Electronically Signed by: DR. Anjelica WHITEHEAD M.D. on: Apr 22 2014 1:37P Procedure Note Colten Whitehead Jr., MD - 04/22/2014 FINAL Procedure: WUS Apr 22 2014 11:11AM [id number] US RENAL KIDNEY Reason for Exam: renal calculus, renal cyst FULL RESULT: HISTORY: Renal calculus, renal cyst. Patient states prior lithotripsy right kidney. TECHNIQUE: Renal ultrasound. COMPARISON: 10/21/2013, 04/09/2013. FINDINGS: RIGHT KIDNEY: 9.8 cm in length x 4.7 x 5.2 cm with resistive index slightly elevated at 0.70. Cortical thickness, 11 mm. LEFT KIDNEY: 10.3 x 5.8 x 6.3 cm with resistive index normal at 0.67. Cortical thickness, 16 mm. Previously seen right renal cyst with layering dependent calcifications is completely stable with a smooth wall. It measures 1.5 cm in diameter. The technologist measured a subtle area of decreased echogenicity in the midpole left kidney but I do not believe this represents a true cyst or mass. No significant change from prior study. IMPRESSION: 1. Benign cyst in the right kidney, unchanged with dependent calcifications. 2. The technologist measured a subtle area of decreased echogenicity in the midpole left kidney but I do not believe this represents a true cyst or mass. 3. Overall, no significant change from previous study. Transcribed by: [facility] on Apr 22 2014 1:37P Read by: Anjelica WHITEHEAD M.D. [id number] on Apr 22 2014 1:37P Electronically Signed by: DR. Anjelica WHITEHEAD M.D. on: Apr 22 2014 1:37P us Kaden Akers MD [facility] US ORDERABLES Final Resu lt documented in this encounter Visit Diagnoses Not on filedocumented in this encounter Additional Health Concerns Infection Onset Date Last Indicated Resolved Time COVID-19 (Rule Out) 11/11/2019 11/13/2019 11/13/19 20 10:14 PM EDT documented as of this encounter Care Teams Tool Liaison Relationship Specialty Start Date End Date Eleazar Collins DO PCP - General 09/02/12 06/14/14 documented as of this encounter
--- OUTSIDE RECORDS SUMMARY | 2014-12-30 13:45 | XMS_ITS | Encounter Summary ---
Author Organization [facility] Address [address] [place] [address] Care Team Providers Care Farmworker Bulbs Name Role Phone Eleazar Collins DO Primary Care Provider Unavailab le Encounter Details Date Type Department Care Team (Late st Contact Info) Description 12/30/2014 1:45 PM EDT Hospital Encounter [facility] Physical Therapy [address] [place] [address] Alberto Knowles, DO [address] [place] [address] Lauren Sinclair, PT [address] [place] [address] Social History Tobacco Use Types Packs/Day Years Used Date Smoking Tobacco: Former Cigarettes 0.5 7 0 07/01/1963 - 07/01/1970 Smokeless Tobacco: Never Alcohol Use Standard Drinks/Week Comments No 0 (1 standard drink = 0.6 oz pur e alcohol) [facility] Utilities Answer Date Recorded In the past 12 months has [employer], gas, oil, or water company threatened to shut off services in your [...] any time in the past 12 m [facility], were you homeless or living in a [...] Recorded In the last 10 days, have sandhya u been in contact with someone who [...] [place] LPN documented as of this encounter Progress Notes * Lauren Sinclair, PT - 12/30/2014 3:30 PM EDT Images from the original note were not included. [facility] Outpatient Physical Therapy Daily Note Date: 12/30/2014 Patient Name: Lisa Guzman : 1940 (74 y.o.) Referring Practitioner: Dr. Knowles Referral Date : 12/22/14 Diagnosis: Right TKR; lumbar radiculopathy Treatment Diagnosis: Right TKR; lumbar radiculopathy Onset Date: 12/22/14 Per Physician Order Total # of Visits to Date: 3 No Show: 0 Canceled Appointment: 0 Pre-Treatment Pain: 07/10 Assessment Assessment: Noted increased soreness following last visit but decreased today. Tolerates prone quadstretch well with combined knee distraction. PROM pre treatment seated 102 deg.; post treatment 110deg. AROM seated 95 deg. Plan Plan: Continue with current plan Exercises/Modalities/Manual: See DocFlow Sheet Goals (Total # of Visits to Date: 3) Short Term Goals - Time Frame for Short term goals: 6 visits Short term goal 1: Educate on home program of lumbar stretches; right knee stretches Short term goal 2: AAROM right knee seated to 100 deg. to transfer sit to stand without deviation Medicine Aide Goals - Time Frame for skilled nursing goals : 12 visits skilled nursing goal 1: Upgrade home program to include trunk stab ex skilled nursing goal 2: AAROM seated right knee flexion 110 deg.so patient can climb steps reciprically without deviation skilled nursing goal 3: AAROM right knee 0 deg extension Post Treatment Pain: 07/10 Time In: 1340 Time Out: 1425 Timed Code Treatment Minutes: 40 Minutes Total Treatment Time: 45 Minutes LAUREN SINCLAIR Therapy License Number: [id number] Date: 12/30/2014 documented in this encounter Plan of Treatment Upcoming Encounters Date Type Department Care Team (Late st Contact Info) Description 11/30/2024 9:20 AM EDT Office Visit [facility] [address] [place] [phone] Jasmyne Casillas, SEWER AND DRAIN TECHNICIAN - MICROELECTRONICS TECHNICIAN [address] [phone] Yearly AWV 01/04/2025 9:45 AM EDT Office Visit [facility] Part of [facility] [address] [place] [address] Tapan Ellsworth MD [address] [facility] [address] [place] [phone] 6m f/u with download documented as of this encounter Visit Diagnoses Not on filedocumented in this encounter Additional Health Concerns Infection Onset Date Last Indicated Resolved Time COVID-19 (Rule Out) 11/11/2019 11/13/2019 11/13/19 20 10:14 PM EDT documented as of this encounter Care Teams Farmworker Bulbs Relationship Specialty Start Date End Date Eleazar Collins DO PCP - General 07/02/14 12/26/15 documented as of this encounter
--- OUTSIDE RECORDS SUMMARY | 2015-01-18 09:00 | XMS_ITS | Encounter Summary ---
Author Organization [facility] Address [address] [place] [address] Care Team Providers Care Tree Warden Name Role Phone Eleazar Collins DO Primary Care Provider Unavailab le Encounter Details Date Type Department Care Team (Late st Contact Info) Description 01/18/2015 9:00 AM EDT Hospital Encounter [facility] Physical Therapy [address] [place] [address] Alberto Knowles, DO [address] [place] [address] Lauren Sinclair, PT [address] [place] [address] Social History Tobacco Use Types Packs/Day Years Used Date Smoking Tobacco: Former Cigarettes 0.5 7 0 07/01/1963 - 07/01/1970 Smokeless Tobacco: Never Alcohol Use Standard Drinks/Week Comments No 0 (1 standard drink = 0.6 oz pur e alcohol) [facility] Utilities Answer Date Recorded In the past 12 months has [employer] gas, oil, or water company threatened to [...] place to sleep or slept in a jail (including now)? No 04/29/2023 Housing Stability Vital Sign Answer Gregor e Recorded In the last 12 months, was t here a time when you were not able to pay the mortgage or rent on time? No 08/10/2024 In the past 12 months, how m any times have you moved where you were living? 0 08/10/2024 At any time in the past 12 m [facility], were you homeless or living in a jail (including now)? No 08/10/2024 Food Insecurity Answer [...] Progress Notes * Lauren Sinclair, PT - 01/18/2015 10:00 AM EDT Images from the original note were not included. [facility] Outpatient Physical Therapy Daily Note Date: 01/18/2015 Patient Name: Lisa Guzman : 1940 (74 y.o.) Referring Practitioner: Dr. Knowles Referral Date : 12/22/14 Diagnosis: Right TKR; lumbar radiculopathy Treatment Diagnosis: Right TKR; lumbar radiculopathy Onset Date: 12/22/14 Per Physician Order Total # of Visits to Date: 6 No Show: 0 Canceled Appointment: 0 Pre-Treatment Pain: 08/10 Assessment Assessment: Patient noting increased lumbar discomfort with standing household tasks. Also reports right lateral calf pain intermittently. PROM seated 110 deg. ; AROM 100 deg. Discussed HS strengthening Plan Plan: Continue with current plan Exercises/Modalities/Manual: See DocFlow Sheet Goals (Total # of Visits to Date: 6) Short Term Goals - Time Frame for Short term goals: 6 visits Short term goal 1: Educate on home program of lumbar stretches; right knee stretches-met Short term goal 2: AAROM right knee seated to 100 deg. to transfer sit to stand without deviation-met Half-Way Goals - Time Frame for [facility] goals : 12 visits [facility] goal 1: Upgrade home program to include trunk stab ex extermination supervisor goal 2: AAROM seated right knee flexion 110 deg.so patient can climb steps reciprically without deviation [facility] goal 3: AAROM right knee 0 deg extension Post Treatment Pain: 08/10 Time In: 0900 Time Out: 0945 Timed Code Treatment Minutes: 40 Minutes Total Treatment Time: 45 Minutes LAUREN SINCLAIR Therapy License Number: [id number] Date: 01/18/2015 documented in this encounter Plan of Treatment Upcoming Encounters Date Type Department Care Team (Late st Contact Info) Description 11/30/2024 9:20 AM EDT Office Visit [facility] [address] [place] [phone] Jasmyne Casillas, WIRE ROLLER - JAVA PROGRAMMING PROFESSOR [address] [phone] Yearly AWV 01/04/2025 9:45 AM EDT Office Visit [facility] Part of [facility] [address] [place] [address] Tapan Ellsworth MD [address] [facility] [address] [place] [phone] 6m f/u with download documented as of this encounter Visit Diagnoses Not on filedocumented in this encounter Additional Health Concerns Infection Onset Date Last Indicated Resolved Time COVID-19 (Rule Out) 11/11/2019 11/13/2019 11/13/19 20 10:14 PM EDT documented as of this encounter Care Teams Tree Warden Relationship Specialty Start Date End Date Eleazar Collins DO PCP - General 07/02/14 12/26/15 documented as of this encounter
--- OUTSIDE RECORDS SUMMARY | 2016-01-11 10:23 | XMS_ITS | Encounter Summary ---
Author Organization [facility] Address [address] [place] [address] Care Team Providers Care Business Mgr Name Role Phone Jasmyne Casillas APRN - CURTIS Primary Care Provider Reason for Referral * Outpatient Service (Routine) - Closed Specialty Diagnoses / Procedures Referred By Franecs hayes Referred To Contact Cardiology Diagnoses Coronary artery disease due to lipid rich plaque Aortic stenosis, mild Procedures Echocardiogram complete Jasmyne Casillas APRN - CURTIS [address] [place] [address] Phone: tel: fax: Referral ID Status Reason Start Date Expiration Date Visits Re quested Visits Authorized [id number] Closed 01/09/2016 07/07/2016 1 1 Encounter Details Date Type Department Care Team (Latest Contact Info) Description 01/11/2016 10:23 AM EDT Hospital Encounter [facility] [address] [place] [address] Jasmyne Casillas APRN - NIGHT CLERK [address] [place] [address] Coronary artery disease due to lipid rich plaque; Aortic stenosis, mild Social History Tobacco Use Types Packs/Day Years Used Date Smoking Tobacco: Former Cigarettes 0.5 7 0 07/01/1963 - 07/01/1970 Smokeless Tobacco: Never Alcohol Use Standard Drinks/Week Comments No 0 (1 standard drink = 0.6 oz pur e alcohol) [facility] Utilities Answer Date Recorded In the past 12 months has th e electric, gas, oil, or water company threatened to [...] place to sleep or slept in a residential (including now)? No 04/29/2023 Housing Stability Vital Sign Answer Gregor e Recorded In the last 12 months, was t here a time when you were not able to pay the mortgage or rent on time? No 08/10/2024 In the past 12 months, how m any times have you moved where you were living? 0 08/10/2024 At any time in the past 12 m [facility], were you homeless or living in a residential (including now)? No 08/10/2024 Food Insecurity Answer [...] Description 11/30/2024 9:20 AM EDT Office Visit [address] [address] Jasmyne Casillas PAPER CONE MAKER - NIGHT CLERK [address] [place] [address] Yearly AWV 01/04/2025 9:45 AM EDT Office Visit [facility] [address] [place] [address] Tapan Ellsworth MD [address] [place] [address] 6m f/u with download documented as of this encounter Procedures Procedure Name Priority Date/Time Associated Diagnosis Comments ECHOCARDIOGRAM COMPLETE 2D W DOPPLER W COLOR Routine 01/11/2016 10:37 AM EDT Coronary artery disease due to lipid rich plaque Aortic stenosis, mild documented in this encounter Results * Echocardiogram complete (01/11/2016 10:37 AM EDT) 01/11/2016 10:3 7 AM EDT Narrative [facility] - 01/12/2016 6:26 AM EDT [facility] Transthoracic Echocardiography Report (TTE) Patient Name BORES Date of Study 01/11/2016 JEMIMA Rios Date of 1940 Gender Female Age 75 year(s) Race Room Number Height: 65 inch, 165.1 cm Corporate ID [id number] Weight: 183 pounds, 83 kg # Patient Acct [id number] BSA: 1.9 m^2 BMI: 30.45 # kg/m^2 MR # [id number] Multigrapher Marilou Daly, RT Interpreting Physician Chery Cotter Fellow Referring Nurse Practitioner Jasmyne Casillas CNP Interpreting Referring Physician Fellow Type of Study TTE procedure:2D Echocardiogram, M-Mode, Doppler, Color Doppler. Procedure Date Date: 01/11/2016 Start: 10:37 AM Study Location: [facility] Indications:Coronary artery disease and Aortic stenosis. Patient Status: Outpatient Height: 65 inches Weight: 183.01 pounds BSA: 1.9 m^2 BMI: 30.45 kg/m^2 CONCLUSIONS Summary Left ventricle is normal in size. Moderate to severe left ventricular hypertrophy. Asymmetric septal hypertrophy (ENRIQUETA) without left ventricular outflow obstruction. Left atrium is mildly dilated. Right atrium is normal in size. Normal right ventricular size and function. Aortic leaflet calcification with mild stenosis. Thickened mitral valve leaflets. Mild to moderate mitral regurgitation. She has very calcified AV, but still does not appear to have significant . She does have LVH, with ENRIQUETA, although does not appear to be obstructing outflow. Continue to monitor AV. Signature FINDINGS Left Atrium Left atrium is mildly dilated. Left Ventricle Left ventricle is normal in size. Moderate to severe left ventricular hypertrophy. Asymmetric septal hypertrophy (ENRIQUETA) without left ventricular outflow obstruction. Right Atrium Right atrium is normal in size. Right Ventricle Normal right ventricular size and function. Mitral Valve Thickened mitral valve leaflets. Mild to moderate mitral regurgitation. Aortic Valve Aortic leaflet calcification with mild stenosis. Tricuspid Valve Normal tricuspid valve leaflets. Mild tricuspid regurgitation. Pulmonic Valve The pulmonic valve is normal in structure. Pericardial Effusion No significant pericardial effusion is seen. Pleural Effusion No pleural effusion seen. Miscellaneous Normal aortic root dimension. M-mode / 2D Measurements & Calculations: LVIDd:4.72 cm(3.7 - 5.6 cm) Diastolic Volume:103.39 ml LVIDs:2.07 cm(2.2 - 4.0 cm) Aortic Root:2.58 cm(2.0 - 3.7 cm) IVSd:1.44 cm(0.6 - 1.1 cm) LA Dimension: 4.2 cm(1.9 - 4.0 cm) LVPWd:1.36 cm(0.6 - 1.1 cm) AV Cusp Separation: 1.64 cm Fractional Shortenin.14 % LVOT:2.37 cm Mitral: Aortic Valve Area (P1/2-Time): 2.03 cm^2 Peak Velocity: 1.92 m/s Peak E-Wave: 0.86 m/s Mean Velocity: 1.49 m/s Peak A-Wave: 1.13 m/s Peak Gradient: 14.69 mmHg E/A Ratio: 0.76 Mean Gradient: 9.41 mmHg Peak Gradient: 2.96 mmHg Deceleration Time: 374.09 msec P1/2t: 108.49 msec Area (continuity): 3.12 cm^2 AV VTI: 51.57 cm Tricuspid: Pulmonic: Estimated RVSP: 22.23 mmHg Peak Velocity: 1.14 m/s Peak TR Velocity: 2.06 m/s Peak Gradient: 5.24 mmHg Peak TR Gradient: 16.97255 mmHg Estimated RA Pressure: 5 mmHg Estimated PASP: 21.98 mmHg Diastology / Tissue Doppler Lateral Wall E' velocity:0.08 m/s Lateral Wall E/E':10.97 Procedure Note Camron Gottlieb MD - 01/12/2016 [facility] Transthoracic Echocardiography Report (TTE) Patient Name SUZETTE Date of Study 01/11/2016 JEMIMA Rios Date of 1940 Gender Female Age 75 year(s) Race Room Number Height: 65 inch, 165.1cm Corporate ID [id number] Weight: 183 pounds, 83kg # Patient Acct [id number] BSA: 1.9 m^2 BMI: 30.45 # kg/m^2 MR # [id number] Multigrapher RT Ayleen Interpreting Physician Chery Cotter Fellow Referring Nurse Practitioner Jasmyne Casillas CNP Interpreting Referring Physician Fellow Type of Study TTE procedure:2D Echocardiogram, M-Mode, Doppler, Color Doppler. Procedure Date Date: 01/11/2016 Start: 10:37 AM Study Location: [facility] Indications:Coronary artery disease and Aortic stenosis. Patient Status: Outpatient Height: 65 inches Weight: 183.01 pounds BSA: 1.9 m^2 BMI: 30.45 kg/m^2 CONCLUSIONS Summary Left ventricle is normal in size. Moderate to severe left ventricular hypertrophy. Asymmetric septal hypertrophy (ENRIQUETA) without left ventricular outflow obstruction. Left atrium is mildly dilated. Right atrium is normal in size. Normal right ventricular size and function. Aortic leaflet calcification with mild stenosis. Thickened mitral valve leaflets. Mild to moderate mitral regurgitation. She has very calcified AV, but still does not appear to have significantAS. She does have LVH, with ENRIQUETA, although does not appear to be obstructing outflow. Continue to monitor AV. Signature Electronically signed by RT Ayleen(R)(M)(CT)([facility])(Multigrapher)on 01/11/2016 11:20 AM FINDINGS Left Atrium Left atrium is mildly dilated. Left Ventricle Left ventricle is normal in size. Moderate to severe left ventricular hypertrophy. Asymmetric septal hypertrophy (ENRIQUETA) without left ventricular outflow obstruction. Right Atrium Right atrium is normal in size. Right Ventricle Normal right ventricular size and function. Mitral Valve Thickened mitral valve leaflets. Mild to moderate mitral regurgitation. Aortic Valve Aortic leaflet calcification with mild stenosis. Tricuspid Valve Normal tricuspid valve leaflets. Mild tricuspid regurgitation. Pulmonic Valve The pulmonic valve is normal in structure. Pericardial Effusion No significant pericardial effusion is seen. Pleural Effusion No pleural effusion seen. Miscellaneous Normal aortic root dimension. M-mode / 2D Measurements & Calculations: LVIDd:4.72 cm(3.7 - 5.6 cm) Diastolic Volume:103.39 ml LVIDs:2.07 cm(2.2 - 4.0 cm) Aortic Root:2.58 cm(2.0 - 3.7 cm) IVSd:1.44 cm(0.6 - 1.1 cm) LA Dimension: 4.2 cm(1.9 - 4.0 cm) LVPWd:1.36 cm(0.6 - 1.1 cm) AV Cusp Separation: 1.64 cm Fractional Shortenin.14 % LVOT:2.37 cm Mitral: Aortic Valve Area (P1/2-Time): 2.03 cm^2 Peak Velocity: 1.92 m/s Peak E-Wave: 0.86 m/s Mean Velocity: 1.49 m/s Peak A-Wave: 1.13 m/s Peak Gradient: 14.69 mmHg E/A Ratio: 0.76 Mean Gradient: 9.41 mmHg Peak Gradient: 2.96 mmHg Deceleration Time: 374.09 msec P1/2t: 108.49 msec Area (continuity): 3.12 cm^2 AV VTI: 51.57 cm Tricuspid: Pulmonic: Estimated RVSP: 22.23 mmHg Peak Velocity: 1.14 m/s Peak TR Velocity: 2.06 m/s Peak Gradient: 5.24 mmHg Peak TR Gradient: 16.73811 mmHg Estimated RA Pressure: 5 mmHg Estimated PASP: 21.98 mmHg Diastology / Tissue Doppler Lateral Wall E' velocity:0.08 m/s Lateral Wall E/E':10.97 Jasmyne Aguilera CNP ECHO ORDERABLES Final R esult [facility] documented in this encounter Visit Diagnoses Diagnosis Coronary artery disease due to lipid rich plaque Aortic stenosis, mild Aortic valve disorders documented in this encounter Additional Health Concerns Infection Onset Date Last Indicated Resolved Time COVID-19 (Rule Out) 11/11/2019 11/13/2019 11/13/19 20 10:14 PM EDT Assessment Noted Time A fall risk assessment has been complete d for the patient 11/09/2015 9:05 AM EDT documented as of this encounter Care Teams Business Mgr Relationship Specialty Start Date End Date Jasmyne Casillas APRN - CNP [address] [place] [address] PCP - General 12/27/15 documented as of this encounter
--- OUTSIDE RECORDS SUMMARY | 2023-06-26 15:00 | XMS_ITS ---
Author Organization [facility] Address [address] [place] [address] Care Team Providers Care Girl Friday Name Role Phone [facility], [facility] Unavailable [phone] REASON FOR VISIT COVID-19 Encounters Encounter Location Date Provider Diagnosis [facility] [address] [place] [address] 06/26/2023 [facility] Plan Of Treatment No Information Progress Notes * Lisa KENNYDOB:1940 (84 yo F)Acc No.[id number]:06/26/2023 IMPORT Patient: Lisa ARAIZA Provider: Abida KEVIN :1940 A ge:83 Y S ex:Female Date:06/26/2023 Phone: Address:[address] [place] [facility] Subjective: * Chief Complaints: * 1 . COVID-19. * Medical History: Objective: * Vitals: Assessment: Plan: * Treatment: * Billing Information: * Visit Code: * Procedure Codes: * Electronic signature of [facility] on 11/26/2024 at 11:39 AM EDT Sign off status: Pending * Provider: Abida DEAL [facility] Date: 1 08/27/2022 Generated for Herman ng/Fajc/eTransmitting on: 0 11/26/2024 11:39 AM EDT
--- OUTSIDE RECORDS SUMMARY | 2024-11-19 09:00 | XMS_ITS | Encounter Summary ---
Author Organization [facility] Address [address] [place] [address] Care Team Providers Care Charhouse Worker Name Role Phone Jasmyne Casillas MD Primary Care Provider [phone] Encounter Details Date Type Department Care Team (Late st Contact Info) Description 11/19/2024 9:00 AM EDT Office Visit [facility] [address] [place] [address] Kendy Wang [facility] [address] [facility] [address] [place] [address] Coronary arteriosclerosis (Primary Dx); Mitral valve problem; Nonrheumatic aortic valve stenosis; Atypical atrial flutter (CMS/HCC); History of aortic valve replacement; Aortic valve disorder; Shortness of breath Social History Tobacco Use Types Packs/Day Years Used Date Smoking Tobacco: Former Cigarettes 1 1972 Smokeless Tobacco: Never Alcohol Use Standard Drinks/Week Comments Not Currently 0 (1 standard drink = 0.6 oz pur e alcohol) [place] Safety & Environment Answer Date Rec orded [...] from the original note were not included. [facility] Follow up Prior HPI: Lisa Guzman is [...] planned for lobectomy at [facility] ([place]). AV replacement+ MAZE, s/p Atypical [place] flutter [...] creatinine was 1.34 that was done at [facility] on 09/18/2023 Which is an improvement from [...] ischemia. she is supposed to follow-up with [facility] for her oncology follow-up. 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 he was evaluated by parachute manufacturing supervisor for theabove and they had changed her [...] Use: Not At Risk (11/11/2023) Received from [facility] Frequency of Alcohol Consumption: Never Average Number of Drinks: Patient does not drink Frequency of Binge Drinking: Never Financial Resource Strain: Low Risk (05/11/2024) Received from [facility] Overall Financial Resource Strain (CARDIA) Difficulty of Paying Living Expenses: Not hard at all Food Insecurity: No Food Insecurity (08/10/2024) Received from [facility] Hunger Vital Sign Worried About Running Out of Food in the Last Year: Never true Ran Out of Food in the Last Year: Never true Transportation Needs: No Transportation Needs (08/10/2024) Received from [facility] PRAPARE - Transportation Lack of Transportation (Medical): No Lack of Transportation (Non-Medical): No Physical Activity: Sufficiently Active (11/11/2023) Received from [facility] Exercise Vital Sign Days of Exercise per Week: 7 days Minutes of Exercise per Session: 30 min Stress: Not on file Social Connections: Not on file Intimate Partner Violence: Unknown (08/22/2023) [place] Safety & Environment Fear of Current or Ex-Partner: Not on file Emotionally Abused: Not on file Physically Abused: Not on file Sexually Abused: Not on file Physically or Sexually Abused: Not on file Depression: Not at risk (08/10/2024) Received from [facility] PHQ-2 PHQ-9 Total Score: 0 Housing Stability: Low Risk (08/10/2024) Received from [facility] Housing Stability Vital Sign Unable to Pay for Housing in the Last Year: No Number of Times Moved in the Last Year: 0 Homeless in the Last Year: No Utilities: Not At Risk (08/10/2024) Received from [facility] Utilities Threatened with loss of utilities: [...] weight. she will need to see a pipe cleaning machine operator to monitor kidney function - Recent Dx [...] problems arise Kendy Wang MD, MPH, [facility], [facility], [facility] Interventional Cardiology Pager Email: [email or web address] documented in this encounter Plan of Treatment Upcoming Encounters Date Type Department Care Team (Late st Contact Info) Description 12/15/2024 2:45 PM EDT Office Visit [facility] [address] [place] [address] Kendy Wang MD [address] [facility] [address] [place] [address] Scheduled Orders Name Type Priority [...] Coronary atherosclerosis of unspecified type of vessel, afognak or graft Mitral valve problem Other and unspecified mitral valve diseases Nonrheumatic aortic valve stenosis Atypical atrial flutter (CMS/HCC) History of aortic valve replacement Heart valve replaced by other means Aortic valve disorder Aortic valve disorders Shortness of breath documented in this encounter Care Teams Charhouse Worker Relationship Specialty Start Date End Date Jasmyne Casillas MD [address] [id number] PCP - General 05/15/22 documented as of this encounter
--- OUTSIDE RECORDS SUMMARY | 2024-11-20 15:20 | XMS_ITS | Encounter Summary ---
Author Organization [facility]ier[facility] Address [address] [place] [address] Care Team Providers Care Lab Assistant Name Role Phone Jasmyne Casillas Ramy SHAH - HEALTH EDUCATION TEACHER Primary Care Provider Reason for Visit * Reason Comments Discuss Labs Patient is concerned with her elevated hemoglobin it is at 8.7 test was done 11/19/24. Patient did have a colonoscopy on 10/26 and had 8 polyps removed. Encounter Details Date Type Department Care Team (Late st Contact Info) Description 11/20/2024 3:20 PM EDT Office Visit [facility] [address] [place] [address] Nomi Beauchamp, DO [address] [place] [address] Normocytic anemia (Primary Dx) Social History Tobacco Use Types Packs/Day Years Used Date Smoking Tobacco: Former Cigarettes 0.5 7 0 07/01/1963 - 07/01/1970 Smokeless Tobacco: Never Alcohol Use Standard Drinks/Week Comments No 0 (1 standard drink = 0.6 oz pur e alcohol) [facility] Utilities Answer Date Recorded In [...] any time in the past 12 m [facility], were you homeless or living in [...] Sign Reading Time Taken Comments Blood Pressure 102/60 11/20/2024 3:25 PM EDT Pulse 59 11/20/2024 3:25 PM EDT Temperature - - Respiratory Rate - - Oxygen Saturation 94% 11/20/2024 3:25 PM EDT Inhaled Oxygen Concentration - - Weight 79.4 kg (175 lb) 11/20/2024 3:25 PM EDT Height - - Body Mass Index 29.12 09/07/2024 9:17 AM EDT documented in this encounter Patient Instructions * Patient Instructions* Camilla Medrano LPN - 11/20/2024 3:27 PM EDT SURVEY: You may be receiving a survey [facility] your [facility] today. You may get this in the mail, through your MyChart or in your email. Please complete the survey to enable us to provide the highest quality of care to you and your family. If you cannot score us as very good ( 5 Stars) on any question, please feel free to call the officeto discuss how we could have made your experience exceptional. Thank you. Clinical Care Team: DO Camilla Abernathy LPN Triage: Manisha Josue CMA Clerical Team: Manisha Huynh documented in this encounter Progress Notes * Nomi Beauchamp DO - 11/20/2024 3:37 PM EDT HPI Notes Name: Lisa Guzman : 1940 Chief Complaint: Chief Complaint Patient presents with Discuss Labs Patient is concerned with her elevated hemoglobin it is at 8.7 test was done 11/19/24. Patient did have a colonoscopy on 10/26 and had 8 polyps removed. History of Present Illness: HPI This is a 84-year-old woman presenting to discuss abnormal laboratory studies. She had laboratory studies done today which allegedly demonstrated a low hemoglobin of 8.7 g/dL. VS normal and patient feels well otherwise. Of note she recently had a colonoscopy on 10/26/2024 and had 8 polyps removed. Past Medical History: Past Medical History: Diagnosis Date A-fib ([facility]) Dr. Sena at [facility] with [facility] on Eliquis Achilles bursitis left Aortic stenosis, mild 11/30/2013 Asthma Atrial fibrillation ([facility]) Breast cancer ([facility]) Bronchial asthma 08/20/2011 CAD (coronary artery disease) Ductal carcinoma in situ (DCIS) of right breast 05/[address] 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, in utero ([facility]) 02/12/2016 [facility] and mechanical Thrombectomy MVP (mitral valve prolapse) Osteoarthritis Thoracic Spine, Cervical Spine, Noah Knees Osteopenia Osteopenia Dexa 10/2014 Sleep apnea 08/20/2011 uses CPap full mask Stroke ([facility]) 2016 is s/p thrombectomy, says only deficit is some voice changes at times Under care of team [facility] cardiology Unspecified sleep apnea Reviewed all health maintenance requirements and ordered appropriate tests Health Maintenance Due Topic Date Due Diabetic Alb to Cr ratio (uACR) test Never done COVID-19 Vaccine ( season) 2024 Annual Wellness Visit (Medicare) 11/11/2024 Past Surgical History: Past Surgical History: Procedure Laterality Date ANKLE FRACTURE SURGERY Left 02/07/[address] Aparicio [facility] APPENDECTOMY APPENDECTOMY 1972 ATRIAL ABLATION SURGERY 01/04/2021 BREAST LUMPECTOMY Right 06/21/2020 BUNIONECTOMY CABG WITH AORTIC VALVE REPLACEMENT 12/03/2019 [facility] CARPAL TUNNEL RELEASE Bilateral CARPAL TUNNEL RELEASE Bilateral CATARACT REMOVAL CATARACT REMOVAL WITH IMPLANT Right 2008 Dr. Moss CHOLECYSTECTOMY 2006 lap COLONOSCOPY 08/25/[address] Pierre due 08/2016 COLONOSCOPY W/ POLYPECTOMY 10/26/2024 8 polyps, severe melanosis coli, hemorrhoids, Dr. Domonique Taylor CORONARY ANGIOPLASTY WITH STENT PLACEMENT 2003 1 stent-LAD COSMETIC SURGERY [address] NEEDLE BIOPSY LUNG PERCUTANEOUS W IMAGING GUIDANCE 04/25/2022 CT NEEDLE BIOPSY LUNG PERCUTANEOUS 04/25/[address] SCAN CYSTOSCOPY DILATION AND CURETTAGE OF UTERUS ESOPHAGOGASTRODUODENOSCOPY 01/17/2023 esophageal dysmotility/spasm, large hiatal hernia, gastric polyp- Dr. Pierre ESOPHAGOGASTRODUODENOSCOPY 10/26/2024 Beck's, multiple gastric polyps , small hiatal hernia, Dr. Domonique Taylor FINGER TRIGGER RELEASE Left 09/10/2012 JOINT REPLACEMENT Right 07/27/2015 total knee-redone Dr. Inman [facility] KNEE ARTHROSCOPY Bilateral KNEE ARTHROSCOPY left KNEE ARTHROSCOPY Left Knowles-torn meniscus LITHOTRIPSY LUNG REMOVAL, PARTIAL Left 06/19/2022 TIMUR, Left robotic-assisted pneumolysis and anatomic lingular sparring upper lobectomy: S1, S2, S3. OTHER SURGICAL HISTORY R index finger [place] node removed TONSILLECTOMY AND ADENOIDECTOMY 2nd grade TOTAL KNEE ARTHROPLASTY Right 05/19/2014 Dr. Knowles TUBAL LIGATION 1976 UPPER GASTROINTESTINAL ENDOSCOPY Medications: Prior to Admission medications Medication Sig Start Date End Date Taking? Authorizing Provider gabapentin (NEURONTIN) 300 MG capsule Take 1 capsule by mouth nightly for 90 days. 11/05/24 02/03/25 Yes Jasmyne Casillas, MACHINE MAINTENANCE SUPERVISOR - HEALTH EDUCATION TEACHER DULoxetine (CYMBALTA) 30 MG extended release capsule Take 1 capsule by mouth daily Chronic musculoskeletal pain, insomnia, anxiety 09/07/24 Yes Jasmyne Casillas, MACHINE MAINTENANCE SUPERVISOR - HEALTH EDUCATION TEACHER FEROSUL 325 (65 Fe) MG tablet TAKE 1 TABLET BY MOUTH THREE TIMES DAILY FOR 30 DAYS 07/30/24 Yes ProviderJosé Miguel MD vitamin D (CHOLECALCIFEROL) 50 MCG (1999 UT) TABS tablet TAKE 1/2 (ONE-HALF) TABLET BY MOUTH ONCE DAILY 07/31/24 Yes Provider, MD José Miguel vitamin C (ASCORBIC ACID) 500 MG tablet Take 1 tablet by mouth daily 07/04/24 Yes Provider, MD José Miguel LINZESS 72 MCG CAPS capsule TAKE 1 CAPSULE BY MOUTH ONCE DAILY IN THE MORNING FOR 30 DAYS 06/16/24 Yes Provider, MD José Miguel blood glucose test strips (ASCENSIA AUTODISC ;ONE TOUCH ULTRA TEST ) strip 1 each by In Vitro route daily Contour one monitor checks daily and prn E 11.9 06/08/24 Yes Jasmyne Casillas APRN - CNP montelukast (SINGULAIR) 10 MG tablet Take 1 tablet by mouth daily 06/01/24 Yes Tapan Ellsworth MD Psyllium (ONELAX DAILY FIBER PO) Fiberone gummy- takes 1 per day Yes Provider, MD José Miguel levothyroxine (SYNTHROID) 50 MCG tablet Take 1 tablet by mouth daily For hypothyroidism 05/11/24 Yes Jasmyne Casillas APRN - CNP albuterol sulfate HFA (PROVENTIL;VENTOLIN;PROAIR) 108 (90 Base) MCG/ACT inhaler Inhale 2 puffs intothe lungs 4 times daily as needed for Wheezing 02/17/24 Yes Tapan Ellsworth MD fluticasone furoate-vilanterol (BREO ELLIPTA) 200-25 MCG/ACT AEPB inhaler Inhale 1 puff into the lungs daily 02/17/24 Yes Tapan Ellsworth MD esomeprazole (NEXIUM) 40 MG delayed release capsule TAKE 1 CAPSULE BY MOUTH ONCE DAILY FOR 90 DAYS 03/13/23 Yes Provider, MD José Miguel bumetanide (BUMEX) 1 MG tablet Take 1 tablet by mouth every morning 04/17/23 Yes Provider, HistoricalMD albuterol (PROVENTIL) (2.5 MG/3ML) 0.083% nebulizer solution Take 3 mLs by nebulization every 6 hours as needed for Wheezing or Shortness of Breath 04/17/21 Yes Jasmyne Casillas APRN - CNP ipratropium (ATROVENT) 0.02 % nebulizer solution Take 2.5 mLs by nebulization 4 times daily 04/17/21 Yes Jasmyne Casillas APRN - CNP apixaban (ELIQUIS) 5 MG TABS tablet Eliquis 5 mg tablet Take 1 tablet twice a day by oral route for 90 days. 09/14/20 Yes Provider, MD José Miguel spironolactone (ALDACTONE) 25 MG tablet TAKE 1 TABLET BY MOUTH ONCE DAILY 03/17/20 Yes José Miguel Becker MD Melatonin 5 MG CAPS 10 mg daily Yes José Miguel Becker MD rosuvastatin (CRESTOR) 40 MG tablet Crestor 40 mg tablet Take 1 tablet every day by oral route. Yes José Miguel Becker MD metoprolol tartrate (LOPRESSOR) 25 MG tablet Take 1 tablet by mouth 2 times daily Patient taking differently: Take 0.5 tablets by mouth 2 times daily 05/23/16 Yes Jasmyne Casillas APRN - CURTIS Magnesium 500 MG CAPS Take 1 tablet by mouth nightly. Yes José Miguel Becker MD Calcium Carb-Cholecalciferol (CALCIUM + D3) 600-200 MG-UNIT TABS Take 1 tablet by mouth daily Yes José Miguel Becker MD Chromium Picolinate 500 MCG CAPS Take 1 tablet by mouth daily. Yes José Miguel Becker MD Coenzyme Q10 (COQ-10 PO) Take 200 mg by mouth daily. Yes José Miguel Becker MD Allergies: Dye [iodides], Leucine, Biaxin [clarithromycin], Iodinated contrast media, Nickel, Other/food, Synvisc [hylan g-f 20], Nitrous oxide, Tape [adhesive tape], and Thorazine [chlorpromazine hcl] Social History: Tobacco: reports that she quit smoking about 54 years ago. Her smoking use included cigarettes. Shestarted smoking about 61 years ago. She has a 3.5 pack- year smoking history. She has never used smokeless tobacco. Alcohol: reports no history of alcohol use. Drug Use: reports no history of drug use. Family History: Family History Problem Relation Age of Onset High Cholesterol Mother High Cholesterol Father Heart Attack Father High Cholesterol Sister Breast Cancer Sister age 53 High Cholesterol Brother Other Brother agent [place] from [place] Diabetes type 2 Brother Heart Surgery Brother 48 High Cholesterol Brother Cancer Brother bladder High Cholesterol Sister Breast Cancer Sister age 67 Review of Systems: Review of Systems Constitutional: Negative for fever. HENT: Negative for rhinorrhea, sinus pain and sneezing. Respiratory: Negative for cough and wheezing. Cardiovascular: Negative for chest pain. Gastrointestinal: Negative for abdominal pain, diarrhea, nausea and vomiting. Musculoskeletal: Negative for back pain. Skin: Negative for rash. Neurological: Negative for headaches. Psychiatric/Behavioral: Negative for sleep disturbance. Physical Exam: Vitals: BP 102/60 Pulse 59 Wt 79.4 kg (175 lb) SpO2 94% BMI 29.12 kg/m?? Physical Exam Vitals and nursing note reviewed. Constitutional: General: She is not in acute distress. Appearance: Normal appearance. She is normal weight. Skin: General: Skin is warm and dry. Capillary Refill: Capillary refill takes less than 2 seconds. Neurological: General: No focal deficit present. Mental Status: She is alert and oriented to person, place, and time. Mental status is at baseline. Cranial Nerves: No cranial nerve deficit. Psychiatric: Mood and Affect: Mood normal. Behavior: Behavior normal. Thought Content: Thought content normal. Data: Lab Results Component Value Date/Time NA 139 07/28/2024 05:25 AM K 3.9 07/28/2024 05:25 AM CL 105 07/28/2024 05:25 AM CO2 26.8 07/28/2024 05:25 AM BUN 26 07/28/2024 05:25 AM CREATININE 1.37 07/28/2024 05:25 AM GLUCOSE 122 07/28/2024 05:25 AM GLUCOSE 119 01/12/2020 01:17 PM BILITOT 0.5 05/11/2024 11:16 AM ALKPHOS 91 05/11/2024 11:16 AM AST 24 05/11/2024 11:16 AM ALT 13 05/11/2024 11:16 AM Lab Results Component Value Date/Time WBC 7.7 07/28/2024 05:25 AM RBC 3.29 07/28/2024 05:25 AM RBC 4.72 11/30/2019 12:14 PM RBC 0-2 11/30/2019 12:14 PM HGB 9.4 07/28/2024 05:25 AM HCT 27.3 07/28/2024 05:25 AM MCV 83.0 07/28/2024 05:25 AM MCH 28.4 07/28/2024 05:25 AM MCHC 34.2 07/28/2024 05:25 AM RDW 17.6 07/28/2024 05:25 AM PLT 156 07/28/2024 05:25 AM MPV 7.9 07/28/2024 05:25 AM Lab Results Component Value Date/Time TSH 1.51 05/11/2024 11:16 AM Lab Results Component Value Date/Time CHOL 161 05/11/2024 11:16 AM LDL 85 05/11/2024 11:16 AM LDL 134.8 06/09/2019 12:00 AM HDL 44 05/11/2024 11:16 AM LABA1C 6.0 04/29/2023 09:29 AM Assessment & Plan Diagnosis Orders 1. Normocytic anemia Blood Occult Stool #1 Overall Lisa's vital signs are very healthy and her physical exam is surprisingly robust for such a low Hb value. I do not believe there is a brisk active bleed occurring and that we have time to work this up on an urgent but not emergent basis. Will have her get vitamin and iron studies from Jasmyne and add Hemoccult to check for microcytic blood in the stool as the normocytic component suggests anemia due to blood loss. Completed Refills Requested Prescriptions No prescriptions requested or ordered in this encounter No follow-ups on file. No orders of the defined types were placed in this encounter. Orders Placed This Encounter Procedures Blood Occult Stool #1 Standing Status: Future Expected Date: 12/11/2024 Expiration Date: 11/20/2025 Patient Instructions SURVEY: You may be receiving a survey from [facility] regarding your visit today. You may get this in the mail, through your MyChart or in your email. Please complete the survey to enable us to provide the highest quality of care to you and your family. If you cannot score us as very good ( 5 Stars) on any question, please feel free to call the officeto discuss how we could have made your experience exceptional. Thank you. Clinical Care Team: DO Camilla Abernathy LPN Triage: Manisha Josue CMA Clerical Team: Manisha Huynh Completed Refills Requested Prescriptions No prescriptions requested or ordered in this encounter documented in this encounter Plan of Treatment Upcoming Encounters Date Type Department Care Team (Late st Contact Info) Description 11/30/2024 9:20 AM EDT Office Visit [address] [address] Jasmyne Casillas, MACHINE MAINTENANCE SUPERVISOR - HEALTH EDUCATION TEACHER [address] [phone] Yearly AWV 01/04/2025 9:45 AM EDT Office Visit [facility] [address] [place] [address] Tapan Ellsworth MD [address] [facility] [address] [place] [address] 6m f/u with download documented as of this encounter Results * (ABNORMAL) Blood Occult Stool #1 (11/20/2024 4:15 PM EDT) Occult Blood, Stool #1 NEGATIVE NEGATIVE 11/20/2024 4:15 PM EDT [facility] Date, Stool #1 11/20/24 11/20/2024 4:15 PM EDT [facility] Time, Stool #1 1615 11/20/2024 4:15 PM EDT [facility] Occult Blood, Stool #2 NOT DONE(A) NEGATIVE 11/20/2024 4:15 PM EDT [facility] Occult Blood, Stool #3 NOT DONE(A) NEGATIVE 11/20/2024 4:15 PM EDT [facility] STOOL SPECIMEN / Unknown 11/20/2024 4:15 PM EDT 11/20/2024 4:16 PM EDT Nomi Beauchamp DO BODY FLUIDS AND STOOLS ZACK DE LA CRUZ Final Result [facility] [address] [place] [address], [facility] [phone] documented in this encounter Visit Diagnoses Diagnosis Normocytic anemia- Primary Anemia, unspecified documented in this encounter Additional Health Concerns Assessment Noted Time A fall risk assessment has been complete d for the patient 11/11/2023 9:17 AM EDT A Body Mass Index follow-up plan has been documented for the patient 07/24/2022 11:38 AM EST documented as of this encounter Care Teams Lab Assistant Relationship Specialty Start Date End Date Jasmyne Casillas, MACHINE MAINTENANCE SUPERVISOR - [place] [address] PCP - General 12/27/15 documented as of this encounter
--- OUTSIDE RECORDS SUMMARY | 2024-11-20 16:13 | XMS_ITS | Encounter Summary ---
Author Organization [facility] Address [address] [place] [address] Care Team Providers Care Pierogi Maker Name Role Phone Jasmyne Casillas APRN - HOSIERY REPAIRER Primary Care Provider Encounter Details Date Type Department Care Team (Latest Contact Info) Description 11/20/2024 4:13 PM EDT - 11/20/2024 11:59 PM EDT Hospital Encounter [facility] [address] [place] [address] Normocytic anemia; Other iron deficiency anemia Discharge Disposition: Home or Self Care Social History Tobacco Use Types Packs/Day Years Used Date Smoking Tobacco: Former Cigarettes 0.5 7 0 07/01/1963 - 07/01/1970 Smokeless Tobacco: Never Alcohol Use Standard Drinks/Week Comments No 0 (1 standard drink = 0.6 oz pur e alcohol) [facility] Utilities Answer Date Recorded In the past 12 months has [employer], gas, oil, or water [employer] threatened to shut off services in your [...] place to sleep or slept in a detention (including now)? No 04/29/2023 Housing Stability Vital Sign Answer Gregor e Recorded In the last 12 months, was t here a time when you were not able to pay the mortgage or rent on time? No 08/10/2024 In the past 12 months, how m any times have you moved where you were living? 0 08/10/2024 At any time in the past 12 m [facility], were you homeless or living in a detention (including now)? No 08/10/2024 Food Insecurity Answer [...] on file documented as of this encounter Medications at Time of Discharge gabapentin (NEURONTIN) 300 MG capsule Take 1 capsule by mouth nightly for 90 days. 90 capsule 5 02/04/20 25 DULoxetine (CYMBALTA) 30 MG extended release capsule Take 1 capsule by mouth daily Chronic musculoskeletal pain, insomnia, anxiety 30 capsule 1 5 FEROSUL 325 (65 Fe) MG tablet TAKE 1 TABLET BY MOUTH THREE TIMES DAILY FOR 30 DAYS 5 vitamin D (CHOLECALCIFEROL) 50 MCG (2000 UT) TABS tablet TAKE 1/2 (ONE-HALF) TABLET BY MOUTH ONCE DAILY 5 vitamin C (ASCORBIC ACID) 500 MG tablet Take 1 tablet by mouth daily 5 LINZESS 72 MCG CAPS capsule TAKE 1 CAPSULE BY MOUTH ONCE DAILY IN THE MORNING FOR 30 DAYS 4 blood glucose test strips (ASCENSIA AUTODISC ;ONE TOUCH ULTRA TEST ) stripIndications: Controlled type 2 diabetes mellitus without complication, without long-term current use of insulin (HCC) 1 each by In Vitro route daily Contour one monitor checks daily and prn E 11.9 200 each 3 4 montelukast (SINGULAIR) 10 MG tablet Take 1 tablet by mouth daily 90 tablet 3 4 Psyllium (ONELAX DAILY FIBER PO) Fiberone gummy- takes 1 per day levothyroxine (SYNTHROID) 50 MCG tablet Take 1 tablet by mouth daily For hypothyroidism 90 tablet 3 4 albuterol sulfate HFA (PROVENTIL;VENTOL IN;PROAIR) 108 (90 Base) MCG/ACT inhalerIndication s:Mild persistent asthma without complication Inhale 2 puffs into the lungs 4 times daily as needed for Wheezing 1 each 5 4 fluticasone furoate-vilantero l (BREO ELLIPTA) 200-25 MCG/ACT AEPB inhaler Inhale 1 puff into the lungs daily 1 each 5 4 esomeprazole (NEXIUM) 40 MG delayed release capsule TAKE 1 CAPSULE BY MOUTH ONCE DAILY FOR 90 DAYS 3 bumetanide (BUMEX) 1 MG tablet Take 1 tablet by mouth every morning 3 albuterol (PROVENTIL) (2.5 MG/3ML) 0.083% nebulizer solution Take 3 mLs by nebulization every 6 hours as needed for Wheezing or Shortness of Breath 125 each 1 1 ipratropium (ATROVENT) 0.02 % nebulizer solution Take 2.5 mLs by nebulization 4 times daily 150 mL 1 1 apixaban (ELIQUIS) 5 MG TABS tabletIndications :Paroxysmal atrial fibrillation (HCC) Eliquis 5 mg tablet Take 1 tablet twice a day by oral route for 90 days. 1 spironolactone (ALDACTONE) 25 MG tablet TAKE 1 TABLET BY MOUTH ONCE DAILY 0 Melatonin 5 MG CAPS 10 mg daily rosuvastatin (CRESTOR) 40 MG tablet Crestor 40 mg tablet Take 1 tablet every day by oral route. metoprolol tartrate (LOPRESSOR) 25 MG tablet Take 1 tablet by mouth 2 times daily 180 tablet 1 6 Magnesium 500 MG CAPS Take 1 tablet by mouth nightly. Calcium Carb-Cholecalcife rol (CALCIUM + D3) 600-200 MG-UNIT TABS Take 1 tablet by mouth daily Chromium Picolinate 500 MCG CAPS Take 1 tablet by mouth daily. Coenzyme Q10 (COQ-10 PO) Take 200 mg by mouth daily. documented as of this encounter Plan of Treatment Upcoming Encounters Date Type Department Care Team (Late st Contact Info) Description 11/30/2024 9:20 AM EDT Office Visit [facility] [address] [place] [address] Jasmyne Casillas, CERTIFIED LEGAL INVESTIGATOR - [place] [address] Yearly AWV 01/04/2025 9:45 AM EDT Office Visit [facility] Part of [address] [address] Tapan Ellsworth MD [address] [facility] [address] [place], [place] [id number] 6m f/u with download documented as of this encounter Procedures Procedure Name Priority Date/Time Associated Diagnosis Comments VITAMIN B12 & FOLATE Routine 11/20/2024 4:15 PM EDT Other iron deficiency anemia BLOOD OCCULT STOOL DIAGNOSTIC Routine 11/20/2024 4:15 PM EDT Normocytic anemia CBC WITH AUTO DIFFERENTIAL Routine 11/20/2024 4:15 PM EDT Other iron deficiency anemia IRON AND TIBC Routine 11/20/2024 4:15 PM EDT Other iron deficiency anemia FERRITIN Routine 11/20/2024 4:15 PM EDT Other iron deficiency anemia documented in this encounter Results * (ABNORMAL) CBC with Auto Differential (11/20/2024 4:15 PM EDT) WBC 6.5 3.5 - 11.0 k/uL 11/20/2024 4:15 PM EDT [facility] RBC 3.25(L) 4.00 - 5.20 m/uL 11/20/2024 4:15 PM EDT [facility] Hemoglobin 8.5(L) 12.0 - 16.0 g/dL 11/20/2024 4:15 PM EDT [facility] Hematocrit 27.7(L) 36.0 - 46.0 % 11/20/2024 4:15 PM EDT [facility] MCV 85.2 80.0 - 100.0 fL 11/20/2024 4:15 PM EDT [facility] MCH 26.2 26.0 - 34.0 pg 11/20/2024 4:15 PM EDT [facility] MCHC 30.7(L) 31.0 - 37.0 g/dL 11/20/2024 4:15 PM EDT [facility] RDW 15.6(H) 12.1 - 15.2 % 11/20/2024 4:15 PM EDT [facility] Platelets 229 140 - 450 k/uL 11/20/2024 4:15 PM EDT [facility] MPV 9.5 6.0 - 12.0 fL 11/20/2024 4:15 PM EDT [facility] Neutrophils % 58 47 - 75 % 11/20/2024 4:15 PM EDT [facility] Lymphocytes % 27 15 - 40 % 11/20/2024 4:15 PM EDT [facility] Monocytes % 10(H) 4 - 8 % 11/20/2024 4:15 PM EDT [facility] Eosinophils % 4 0 - 5 % 11/20/2024 4:15 PM EDT [facility] Basophils % 1 0 - 2 % 11/20/2024 4:15 PM EDT [facility] Immature Granulocytes % 0 0 - 5 % 11/20/2024 4:15 PM EDT [facility] Neutrophils Absolute 3.84 2.5 - 7.0 k/uL 11/20/2024 4:15 PM EDT [facility] Lymphocytes Absolute 1.76 1.00 - 4.80 k/uL 11/20/2024 4:15 PM EDT [facility] Monocytes Absolute 0.62 0.00 - 1.00 k/uL 11/20/2024 4:15 PM EDT [facility] Eosinophils Absolute 0.24 0.00 - 0.40 k/uL 11/20/2024 4:15 PM EDT [facility] Basophils Absolute 0.05 0.00 - 0.20 k/uL 11/20/2024 4:15 PM EDT [facility] Immature Granulocytes Absolute 0.01 0.00 - 0.30 k/uL 11/20/2024 4:15 PM EDT [facility] Blood BLOOD SPECIMEN / Unknown 11/20/2024 4:15 PM EDT 11/20/2024 4:17 PM EDT Jasmyne Casillas APRN - [facility] HEMATOLOGY ORDERABLES F inal Result Performing Organization Address City/[facility]/ZIP Co de Phone Number [facility] [address] [place] [address], [facility] [phone] * (ABNORMAL) Iron and TIBC (11/20/2024 4:15 PM EDT) Iron 179(H) 37 - 145 ug/dL 11/20/2024 4:15 PM EDT [facility] TIBC 367 250 - 450 ug/dL 11/20/2024 4:15 PM EDT [facility] Iron % Saturation 49 20 - 55 % 11/20/2024 4:15 PM EDT [facility] UIBC 188 112 - 347 ug/dL 11/20/2024 4:15 PM EDT [facility] Blood BLOOD SPECIMEN / Unknown 11/20/2024 4:15 PM EDT 11/20/2024 4:17 PM EDT Jasmyne Casillas CERTIFIED LEGAL INVESTIGATOR - HOSIERY REPAIRER CHEMISTRY ORDERABLES Fi nal Result Performing Organization Address [facility]/ZIP Co de Phone Number [facility] [address] [place] [address], [facility] [phone] [facility] [address] [place] [address], [facility] [phone] * Ferritin (11/20/2024 4:15 PM EDT) Ferritin 46 ng/mL 11/20/2024 4:15 PM EDT [facility] Comment:No reference range e stablished for this age/gender. Blood BLOOD SPECIMEN / Unknown 11/20/2024 4:15 PM EDT 11/20/2024 4:17 PM EDT Jasmyne Casillas CERTIFIED LEGAL INVESTIGATOR - HOSIERY REPAIRER CHEMISTRY ORDERABLES Fi nal Result Performing Organization Address City/[facility]/ZIP Co de Phone Number [facility] [address] [place] [address], [facility] [phone] [facility] [address] [place] [address], [facility] [phone] * Vitamin B12 & Folate (11/20/2024 4:15 PM EDT) Vitamin B-12 697 232 - 1245 pg/mL 11/20/2024 4:15 PM EDT [facility] Folate 11.2 4.8 - 24.2 ng/mL 11/20/2024 4:15 PM EDT [facility] Blood BLOOD SPECIMEN / Unknown 11/20/2024 4:15 PM EDT 11/20/2024 4:17 PM EDT Jasmyne Casillas APRN - HOSIERY REPAIRER CHEMISTRY ORDERABLES Fi nal Result [facility] [address] [place] [address], [facility] [phone] [place] [address], [facility] [phone] * (ABNORMAL) Blood Occult Stool #1 (11/20/2024 4:15 PM EDT) Occult Blood, Stool #1 NEGATIVE NEGATIVE 11/20/2024 4:15 PM EDT [facility] Date, Stool #1 11/20/24 11/20/2024 4:15 PM EDT [facility] Time, Stool #1 1615 11/20/2024 4:15 PM EDT [facility] Occult Blood, Stool #2 NOT DONE(A) NEGATIVE 11/20/2024 4:15 PM EDT [facility] Occult Blood, Stool #3 NOT DONE(A) NEGATIVE 11/20/2024 4:15 PM EDT [facility] STOOL SPECIMEN / Unknown 11/20/2024 4:15 PM EDT 11/20/2024 4:16 PM EDT Nomi Beauchamp DO BODY FLUIDS AND STOOLS ORDE RABLES Final Result [facility] [address] [place] [address] [phone] documented in this encounter Visit Diagnoses Diagnosis Normocytic anemia Anemia, unspecified Other iron deficiency anemia documented in this encounter Additional Health Concerns Assessment Noted Time A fall risk assessment has been complete d for the patient 11/11/2023 9:17 AM EDT A Body Mass Index follow-up plan has been documented for the patient 07/24/2022 11:38 AM EST documented as of this encounter Care Teams Pierogi Maker Relationship Specialty Start Date End Date Jasmyne Casillas APRN - HOSIERY REPAIRER [address] [place] [id number] PCP - General 12/27/15 documented as of this encounter
--- OUTSIDE RECORDS SUMMARY | 2024-11-26 11:37 | XMS_ITS | Encounter Summary ---
Author Organization [facility] Address [address] [place] [address] Care Team Providers Care Care Manager Cna Name Role Phone Sonja Jasmynestephen Mccann APRN - [employer] Primary Care Provider Reason for Referral * Imaging (Routine) - Closed Specialty Diagnoses / Procedures Referred By Contac t Referred To Contact Radiology Diagnoses Kidney stones N20.0 (ICD-10-CM) - Kidney stones Procedures US RENAL COMPLETE [place] US,RETROPERIT,REAL TIME,COMPLETE [address]9450 - [place] US,RETROPERIT,REAL TIME,COMPLETE Vahe Llanos MD [address] [place] [address] Phone: tel: fax: Referral ID Status Reason Start Date Expiration Date Visits Re quested Visits Authorized [id number] Closed 09/13/2021 09/13/2022 1 1 Encounter Details Date Type Department Care Team (Latest Contact Info) Description 09/13/2021 Transcribe Orders Latif Pre Access [address] [place] [address] Vahe Llanos MD [address] [place] [address] Kidney stones (Primary Dx) Social History Tobacco Use Types [...] care, and heating? Not hard at all 07/18/2020 PHQ-2 Answer Date Recorded PHQ-9 Total Score 0 2021 Hunger Vital Sign Answer Date Recorded Within the past 12 months, y ou worried that your food would run out before you got the money to buy more. Never true 07/18/19 21 Within the past 12 months, t he food you bought just didn't last and you didn't have money to get more. Never true 07/18/2020 PRAPARE - Transportation Answer Date Re corded In the past 12 months, has l ack of transportation kept you from medical appointments or from getting medications? No 07/01 In the past 12 months, has l ack of transportation kept you from meetings, work, or from getting things needed for daily living? No 07/18/2020 Comments No Sex and Gender Information Value [...] Description 11/30/2024 9:20 AM EDT Office Visit [facility] [address] [place] [address] Jasmyne Casillas, BARREL ENDSHAKER ADJUSTER - [employer] [address] [phone] Yearly AWV 01/04/2025 9:45 AM EDT Office Visit [facility] Part of [facility] [address] [place] [address] Tapan Ellsworth MD [address] [facility] [address] [place] [address] 6m f/u with download documented as of this encounter Results * US RENAL COMPLETE (10/04/2021 9:28 AM EDT) Anatomical Region Laterality Modality Abdomen Ultrasound 10/04/2021 10:0 1 AM EDT Impressions 10/04/2021 10:16 AM EDT Prevoid volume was 142 cc and post void residual was 11 cc. Graph impression: 1. Normal left kidney. 2. 1.1 cm cyst involving the midpole of the right kidney. There is also a 1.3 cm nonobstructing right renal calculus. A similar finding was noted on the previous exam. There does appear be an element of renal cortical thinning of the right kidney. 3. Normal-appearing filled bladder with bilateral ureteral jets. 4. Post void residual was 11 cc for a post void residual of approximately 8%. Narrative 10/04/2021 10:16 AM EDT EXAM: US RENAL COMPLETE HISTORY: N20.0 . COMPARISON: 05/06/2020 TECHNIQUE: James scale and color imaging was performed FINDINGS: Scanning of the right kidney demonstrates right kidney to measure 9 x 3.9 x 5.4 cm. There is a 1.1 x 1 cm cyst involving the midportion of the right kidney. There is a 1.3 cm echogenic focus with shadowing consistent with a nonobstructing calculus. No hydronephrosis is noted. There appears to be an element of renal cortical thinning of the right kidney. Left kidney measures 10 x 5.5 x 4.8 cm. No solid renal cortical masses or hydronephrosis is noted. The bladder appears normal with no masses or bladder wall thickening. Bilateral ureteral jets were noted. Procedure Note Eleazar Jacobs MD - 10/04/2021 EXAM: US RENAL COMPLETE HISTORY: N20.0 . COMPARISON: 05/06/2020 TECHNIQUE: James scale and color imaging was performed FINDINGS: Scanning of the right kidney demonstrates right kidney tomeasure 9 x 3.9 x 5.4 cm. There is a 1.1 x 1 cm cyst involving the midportion of theright kidney. There is a 1.3 cm echogenic focus with shadowing consistent with a nonobstructing calculus. No hydronephrosis is noted. There appears to toney element of renal cortical thinning of the right kidney. Left kidney measures 10 x 5.5 x 4.8 cm. No solid renal cortical masses or hydronephrosis is noted. The bladder appears normal with no masses or bladder wall thickening.Bilateral ureteral jets were noted. IMPRESSION: Prevoid volume was 142 cc and post void residual was 11 cc. Graphimpression: 1. Normal left kidney. 2. 1.1 cm cyst involving the midpole of the right kidney. There is also a1.3 cm nonobstructing right renal calculus. A similar finding was noted on the previous exam. There does appear be an element of renal cortical thinningof the right kidney. 3. Normal-appearing filled bladder with bilateral ureteral jets. 4. Post void residual was 11 cc for a post void residual of approximately8%. us Vahe Llanos MD IMG US ORDERABLES Final Res ult documented in this encounter Visit Diagnoses Diagnosis Kidney stones- Primary Calculus of kidney Kidney stones Calculus of kidney documented in this encounter Additional Health Concerns Assessment Noted Time A fall risk assessment has been complete d for the patient 2021 8:04 AM EDT A Body Mass Index follow-up plan has been documented for the patient 04/24/2021 11:32 AM EDT documented as of this encounter Care Teams Care Manager Cna Relationship Specialty Start Date End Date Jasmyne Casillas APRN - [employer] [address] [place] [address] PCP - General 12/27/15 documented as of this encounter
--- OUTSIDE RECORDS SUMMARY | 2024-11-26 11:37 | XMS_ITS | Encounter Summary ---
[facility] Organization [facility] Address [address] [place] [address] Care Team Providers [facility] Name Role Phone Jasmyne Casillas APRN - TELEMETRY TECH Primary Care Provider Reason for Referral * Outpatient Service (Routine) - Closed Specialty Diagnoses / Procedures Referred By Contmauri t Referred To Contact Cardiology Diagnoses Other form of dyspnea R06.09 (ICD-10-CM) - Other form of dyspnea Procedures ECHO Complete 2D W Doppler W Color PA ECHO HEART XTHORACIC,COMPLETE W DOPPLER [id number] - PA ECHO HEART XTHORACIC,COMPLETE W DOPPLER Karla Peña APRN - CNP [address] [place] [address] Phone: tel: fax: Referral ID Status Reason Start Date Expiration Date Visits Re quested Visits Authorized [id number] Closed 09/27/2021 09/27/2022 1 1 Encounter Details Date Type Department Care Team (Late st Contact Info) Description 09/27/2021 Transcribe Orders Bhavya Pre Access [address] [place] [id number] Karla Peña APRN - TELEMETRY TECH [address] [place] [address] Other form of dyspnea (Primary Dx) Social History Tobacco Use Types [...] Description 11/30/2024 9:20 AM EDT Office Visit [facility] [address] [place] [phone] Jasmyne Casillas, TEST PULLER [place] [address] Yearly AWV 01/04/2025 9:45 AM EDT Office Visit [facility] [place] [id number] Tapan Ellsworth MD [address] [facility] [address] [place] [address] 6m f/u with download documented as of this encounter Results * ECHO Complete 2D W Doppler W Color (10/04/2021 8:53 AM EDT) Left Ventricular Ejection Fraction 53 MH LVEF LVEF MODALITY ECHO LVEF 10/04/2021 8:53 AM EDT Narrative MH LVEF - 10/05/2021 6:[address] [facility] Transthoracic Echocardiography Report (TTE) Patient Name SUZETTE Date of Study 10/04/2021 JEMIMA Rios Date of 1940 Gender Female Age 81 year(s) Race Room Number Height: 66 inch, 167.64 cm Corporate ID [id number] Weight: 186 pounds, 84.4 kg # Patient Acct [id number] BSA: 1.94 m^2 BMI: 30.02 kg/m^2 # MR # [id number] [employer] Professional Marilou Daly, RT Interpreting Physician Chery Cotter Fellow Referring Nurse Jasmyne Casillas TELEMETRY TECH Practitioner Mariana Gomez NP Interpreting Referring Physician Fellow Type of Study TTE procedure:2D Echocardiogram, M-Mode, Doppler, Color Doppler. Procedure Date Date: 10/04/2021 Start: 08:53 AM Study Location: [facility] Indications:Dyspnea/SOB. Patient Status: Routine Height: 66 inches Weight: 186 pounds BSA: 1.94 m^2 BMI: 30.02 kg/m^2 CONCLUSIONS Summary Left ventricle is normal in size. Moderate to severe left ventricular hypertrophy. Global left ventricular systolic function is normal with an estimated ejection fraction of 50-55 % . Left atrium is severely dilated. Right atrium is moderately-severely dilated . Mildly dilated right ventricular cavity. Aortic leaflet calcification with mild stenosis. Peak instantaneous gradient 24 mmHg and mean gradient 14 mmHg. Thickened mitral valve leaflets. Mitral annular calcification is seen. Moderate to severe mitral regurgitation. Normal tricuspid valve leaflets. Moderate to severe tricuspid regurgitation. Estimated right ventricular systolic pressure is 45 mmHg. In summary, she has normal LV function with EF 50-55% Moderate severe LVH with diastolic dysfunction Mod-severe MR and TR Mild aortic stenosis with mean gradient of 14 mmHg Would repeat echo in 1 year. Signature Electronically signed by JENNIE Abbasi)Theresa)TAL)([facility])([employer] Professional) on 10/04/2021 11:36 AM FINDINGS Left Atrium Left atrium is severely dilated. Left Ventricle Left ventricle is normal in size. Moderate to severe left ventricular hypertrophy. Global left ventricular systolic function is normal with an estimated ejection fraction of 50-55 % . Right Atrium Right atrium is moderately-severely dilated . Right Ventricle Mildly dilated right ventricular cavity. Mitral Valve Thickened mitral valve leaflets. Mitral annular calcification is seen. Moderate to severe mitral regurgitation. Aortic Valve Aortic leaflet calcification with mild stenosis. Peak instantaneous gradient 24 mmHg and mean gradient 14 mmHg. Tricuspid Valve Normal tricuspid valve leaflets. Moderate to severe tricuspid regurgitation. Estimated right ventricular systolic pressure is 45 mmHg. Pulmonic Valve Technically difficult visualization of the pulmonic valve, no abnormality seen. Pericardial Effusion No significant pericardial effusion is seen. Pleural Effusion No pleural effusion seen. Miscellaneous Normal aortic root dimension. M-mode / 2D Measurements & Calculations: LVIDd:5.06 cm(3.7 - 5.6 cm) Diastolic Volume:121.73 ml LVIDs:2.84 cm(2.2 - 4.0 cm) Aortic Root:2.36 cm(2.0 - 3.7 cm) IVSd:0.98 cm(0.6 - 1.1 cm) LA Dimension: 5.32 cm(1.9 - 4.0 cm) LVPWd:1.09 cm(0.6 - 1.1 cm) AV Cusp Separation: 1.61 cm Fractional Shortenin.87 % LVOT:1.57 cm RVDd:3.53 cm Mitral: Aortic Valve Area (P1/2-Time): 1.44 cm^2 Peak Velocity: 2.47 m/s Peak E-Wave: 1.80 m/s Mean Velocity: 1.80 m/s Peak A-Wave: 0.01 m/s Peak Gradient: 24.4 mmHg E/A Ratio: 346.13 Mean Gradient: 14.16 mmHg Peak Gradient: 12.96 mmHg Deceleration Time: 526.2 msec P1/2t: 152.6 msec Area (continuity): 1.24 cm^2 AV VTI: 65.52 cm Tricuspid: Pulmonic: Estimated RVSP: 42.08 mmHg Peak Velocity: 1.35 m/s Peak TR Velocity: 3.04 m/s Peak Gradient: 7.29 mmHg Peak TR Gradient: 37.25261 mmHg Estimated RA Pressure: 5 mmHg Estimated PASP: 42.02 mmHg Diastology / Tissue Doppler Septal Wall E' velocity:0.06 m/s Lateral Wall E' velocity:0.09 m/s Lateral Wall E/E':20.29 Procedure Note Camron Gottlieb MD / Result, Unknown Provider - 10/05/[address] [facility] Transthoracic Echocardiography Report (TTE) Patient Name SUZETTE Date of Study 10/04/2021 JEMIMA Rios Date of 1940 Gender Female Age 81 year(s) Race Room Number Height: 66 inch, 167.64 cm Corporate ID [id number] Weight: 186 pounds, 84.4kg # Patient Acct [id number] BSA: 1.94 m^2 BMI: 30.02kg/m^2 # MR # [id number] [employer] Professional Marilou Daly, RT Interpreting Physician Chery Cotter Fellow Referring Nurse Jasmyne Casillas TELEMETRY TECH Practitioner Mariana Gomez NP Interpreting Referring Physician Fellow Type of Study TTE procedure:2D Echocardiogram, M-Mode, Doppler, Color Doppler. Procedure Date Date: 10/04/2021 Start: 08:53 AM Study Location: [facility] Indications:Dyspnea/SOB. Patient Status: Routine Height: 66 inches Weight: 186 pounds BSA: 1.94 m^2 BMI: 30.02 kg/m^2 CONCLUSIONS Summary Left ventricle is normal in size. Moderate to severe left ventricular hypertrophy. Global left ventricular systolic function is normal with an estimated ejection fraction of 50-55 % . Left atrium is severely dilated. Right atrium is moderately-severely dilated . Mildly dilated right ventricular cavity. Aortic leaflet calcification with mild stenosis. Peak instantaneous gradient 24 mmHg and mean gradient 14 mmHg. Thickened mitral valve leaflets. Mitral annular calcification is seen. Moderate to severe mitral regurgitation. Normal tricuspid valve leaflets. Moderate to severe tricuspid regurgitation. Estimated right ventricular systolic pressure is 45 mmHg. In summary, she has normal LV function with EF 50-55% Moderate severe LVH with diastolic dysfunction Mod-severe MR and TR Mild aortic stenosis with mean gradient of 14 mmHg Would repeat echo in 1 year. Signature Electronically signed by JENNIE Abbasi)Theresa)(MANN)(IBAN)([employer] Professional)on 10/04/2021 11:36 AM FINDINGS Left Atrium Left atrium is severely dilated. Left Ventricle Left ventricle is normal in size. Moderate to severe left ventricular hypertrophy. Global left ventricular systolic function is normal with an estimated ejection fraction of 50-55 % . Right Atrium Right atrium is moderately-severely dilated . Right Ventricle Mildly dilated right ventricular cavity. Mitral Valve Thickened mitral valve leaflets. Mitral annular calcification is seen. Moderate to severe mitral regurgitation. Aortic Valve Aortic leaflet calcification with mild stenosis. Peak instantaneous gradient 24 mmHg and mean gradient 14 mmHg. Tricuspid Valve Normal tricuspid valve leaflets. Moderate to severe tricuspid regurgitation. Estimated right ventricular systolic pressure is 45 mmHg. Pulmonic Valve Technically difficult visualization of the pulmonic valve, noabnormality seen. Pericardial Effusion No significant pericardial effusion is seen. Pleural Effusion No pleural effusion seen. Miscellaneous Normal aortic root dimension. M-mode / 2D Measurements & Calculations: LVIDd:5.06 cm(3.7 - 5.6 cm) Diastolic Volume:121.73 ml LVIDs:2.84 cm(2.2 - 4.0 cm) Aortic Root:2.36 cm(2.0 - 3.7 cm) IVSd:0.98 cm(0.6 - 1.1 cm) LA Dimension: 5.32 cm(1.9 - 4.0 cm) LVPWd:1.09 cm(0.6 - 1.1 cm) AV Cusp Separation: 1.61 cm Fractional Shortenin.87 % LVOT:1.57 cm RVDd:3.53 cm Mitral: Aortic Valve Area (P1/2-Time): 1.44 cm^2 Peak Velocity: 2.47 m/s Peak E-Wave: 1.80 m/s Mean Velocity: 1.80 m/s Peak A-Wave: 0.01 m/s Peak Gradient: 24.4 mmHg E/A Ratio: 346.13 Mean Gradient: 14.16 mmHg Peak Gradient: 12.96 mmHg Deceleration Time: 526.2 msec P1/2t: 152.6 msec Area (continuity): 1.24 cm^2 AV VTI: 65.52 cm Tricuspid: Pulmonic: Estimated RVSP: 42.08 mmHg Peak Velocity: 1.35 m/s Peak TR Velocity: 3.04 m/s Peak Gradient: 7.29 mmHg Peak TR Gradient: 37.46518 mmHg Estimated RA Pressure: 5 mmHg Estimated PASP: 42.02 mmHg Diastology / Tissue Doppler Septal Wall E' velocity:0.06 m/s Lateral Wall E' velocity:0.09 m/s Lateral Wall E/E':20.29 us Karla Aguilera CNP ECHO ORDERABLES Edited Result - Final LVEF documented in this encounter Visit Diagnoses Diagnosis Other form of dyspnea- Primary Other form of dyspnea documented in this encounter Additional Health Concerns Assessment Noted Time A fall risk assessment has been complete d for the patient 2021 8:04 AM EDT A Body Mass Index follow-up plan has been documented for the patient 04/24/2021 11:32 AM EDT documented as of this encounter Care Teams [employer] Relationship Specialty Start Date End Date Jasmyne Casillas APRN - CNP [address] [place] [address] PCP - General 12/27/15 documented as of this encounter
--- OUTSIDE RECORDS SUMMARY | 2024-11-26 11:38 | XMS_ITS | Clinical Summary ---
Author Organization [facility] Address [address] [place] [address] Care Team Providers Care Set Up Mechanic Automatic Line Name Role Phone Jasmyne Casillas APRN - HEALTHCARE ADMINISTRATOR Primary Care Provider Allergies Active Allergy Reactions Criticality Noted Date Comments Clarithromycin 08/17/2011 Iodides Anaphylaxis,Shortne ss Of Breath High 08/17/2011 Iodinated Contrast Media 03/29/2022 Leucine Medium 01/04/2021 Nickel 03/29/2022 Nitrous Oxide Nausea And Vomiting Low 09/10/2012 Other/Food 04/22/2014 Nickel- swelling fingers and knees, causes itching Hylan G-F 20 Swelling 03/06/2012 Adhesive Tape Rash Low 08/17/2011 Chlorpromazine Hcl Rash Low 08/17/2011 Medications Coenzyme Q10 (COQ-10 PO) Take 200 mg by mouth daily. Active Calcium Carb-Cholecalci ferol (CALCIUM + D3) 600-200 MG-UNIT TABS Take 1 tablet by mouth daily Active Chromium Picolinate 500 MCG CAPS Take 1 tablet by mouth daily. Active Magnesium 500 MG CAPS Take 1 tablet by mouth nightly. Active metoprolol tartrate (LOPRESSOR) 25 MG tablet Take 1 tablet by mouth 2 times daily 180 tablet 1 05/23/20 16 Active Additional Information Patient taking differently: 12.5 mgOral 2 TIMES DAILY, Reported on 11/20/2024 rosuvastatin (CRESTOR) 40 MG tablet Crestor 40 mg tablet Take 1 tablet every day by oral route. Active Melatonin 5 MG CAPS 10 mg daily Active spironolactone (ALDACTONE) 25 MG tablet TAKE 1 TABLET BY MOUTH ONCE DAILY 03/17/20 20 Active apixaban (ELIQUIS) 5 MG TABS tabletIndicatio ns:Paroxysmal atrial fibrillation (HCC) Eliquis 5 mg tablet Take 1 tablet twice a day by oral route for 90 days. 09/15/19 21 Active albuterol (PROVENTIL) (2.5 MG/3ML) 0.083% nebulizer solution Take 3 mLs by nebulization every 6 hours as needed for Wheezing or Shortness of Breath 125 each 1 04/17/20 21 Active ipratropium (ATROVENT) 0.02 % nebulizer solution Take 2.5 mLs by nebulization 4 times daily 150 mL 1 04/17/20 21 Active esomeprazole (NEXIUM) 40 MG delayed release capsule TAKE 1 CAPSULE BY MOUTH ONCE DAILY FOR 90 DAYS 03/13/20 23 Active bumetanide (BUMEX) 1 MG tablet Take 1 tablet by mouth every morning 04/17/20 23 Active albuterol sulfate HFA (PROVENTIL;VENT OBI;PROAIR) 108 (90 Base) MCG/ACT inhalerIndicati ons:Mild persistent asthma without complication Inhale 2 puffs into the lungs 4 times daily as needed for Wheezing 1 each 5 02/17/20 24 Active fluticasone furoate-vilante rol (BREO ELLIPTA) 200-25 MCG/ACT AEPB inhaler Inhale 1 puff into the lungs daily 1 each 5 02/17/20 24 Active levothyroxine (SYNTHROID) 50 MCG tablet Take 1 tablet by mouth daily For hypothyroidism 90 tablet 3 05/11/20 24 Active Psyllium (ONELAX DAILY FIBER PO) Fiberone gummy- takes 1 per day Active montelukast (SINGULAIR) 10 MG tablet Take 1 tablet by mouth daily 90 tablet 3 06/01/20 24 Active blood glucose test strips (ASCENSIA AUTODISC ;ONE TOUCH ULTRA TEST ) stripIndication s:Controlled type 2 diabetes mellitus without complication, without long-term current use of insulin (HCC) 1 each by In Vitro route daily Contour one monitor checks daily and prn E 11.9 200 each 3 06/08/20 24 Active FEROSUL 325 (65 Fe) MG tablet TAKE 1 TABLET BY MOUTH THREE TIMES DAILY FOR 30 DAYS 07/30/19 25 Active vitamin D (CHOLECALCIFERO L) 50 MCG (2000 UT) TABS tablet TAKE 1/2 (ONE-HALF) TABLET BY MOUTH ONCE DAILY 07/31/19 25 Active vitamin C (ASCORBIC ACID) 500 MG tablet Take 1 tablet by mouth daily 07/04/19 25 Active LINZESS 72 MCG CAPS capsule TAKE 1 CAPSULE BY MOUTH ONCE DAILY IN THE MORNING FOR 30 DAYS 06/16/20 24 Active DULoxetine (CYMBALTA) 30 MG extended release capsule Take 1 capsule by mouth daily Chronic musculoskeletal pain, insomnia, anxiety 30 capsule 1 09/08/19 25 Active gabapentin (NEURONTIN) 300 MG capsule Take 1 capsule by mouth nightly for 90 days. 90 capsule 11/06/19 25 025 Active gabapentin (NEURONTIN) 300 MG capsule Take 1 capsule by mouth nightly for 30 days. Intended supply: 30 days 30 capsule 09/30/19 25 025 Discontin ued([facility]) Active Problems Problem Noted Date Diagnosed Date Adenocarcinoma of left lung 08/26/2023 Radiation fibrosis of lung 08/26/2023 Chronic renal disease, stage III ([facility]) [617483] 10/23/2021 CKD (chronic kidney disease), stage III 04/24/20 21 Overview (04/24/2021): Baseline creatinine 1.2-1.4 Secondary hyperparathyroidism 2021 Vitamin D deficiency 10/17/2020 Hypercholesterolemia 10/17/2020 Chronic renal insufficiency, stage 3 (moderate) 07/18/2020 PMR (polymyalgia rheumatica) 07/18/2020 Mild persistent asthma 07/18/2020 HX: breast cancer 07/18/2020 Ductal carcinoma in situ (DCIS) of right breast 05/31/2020 Chronic diastolic (congestive) heart failure Aortic stenosis, moderate 11/04/2017 Over weight 11/04/2017 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 02/23/2016 Current use of intermediate accountant anticoagulation 016 Primary osteoarthritis of right knee 05/19/2014 Insomnia 01/02/2013 GERD (gastroesophageal reflux disease) 3 CAD (coronary artery disease) 12/01/2012 Osteoporosis 12/01/2012 Atrial fibrillation 12/01/2012 Sleep apnea 08/20/2011 Osteoarthritis Overview (07/18/2012): Thoracic Spine, Cervical Spine, Noah Knees Resolved Problems Problem Noted Date Diagnosed Date Resolved Date Pelvic lymphadenopathy 07/18/202010/17 Mastalgia 12/30/2013 02/27/2018 Aortic stenosis, mild 11/30/20132017 Constipation 01/02/2013 10/17/2020 Trigger finger, acquired 09/10/201201/2017 Bronchial asthma 08/20/2011 10/17/2020 Osteoarthritis 02/27/2018 Overview (07/18/2012): Thoracic Spine, Cervical Spine, Noah Knees Encounters Date Type Department Care Team Description 11/24/2024 Results Follow-Up [facility] [address] [place] [address] Nomi Beauchamp DO 11/24/2024 Orders Only [facility] [address] [place] [address] José Miguel Becker MD 11/20/2024 4:13 PM EDT - 11/20/2024 11:59 PM EDT Hospital Encounter [facility] [address] [place] [address] Normocytic anemia; Other iron deficiency anemia Discharge Disposition: Home or Self Care 11/20/2024 3:20 PM EDT Office Visit [facility] [address] [place] [address] Nomi Beauchamp DO Normocytic anemia (Primary Dx) 11/04/2024 Refill [facility] [address] [facility] [place] [address] Jasmyne Casillas APRN - CURTIS Medication Refill 10/27/2024 Orders Only [facility] [address] [place] [facility] [place] [address] José Miguel Becker MD 10/27/2024 Abstract [facility] [address] [place] [facility] [place] [address] Jasmyne Casillas, OPERATOR TECHNICIAN - HEALTHCARE ADMINISTRATOR 10/21/2024 Abstract [facility] [address] [place] [facility] [place] [address] Jasmyne Casillas, OPERATOR TECHNICIAN - HEALTHCARE ADMINISTRATOR 10/19/2024 Abstract [facility] [address] [place] [address] Jasmyne Casillas, OPERATOR TECHNICIAN - HEALTHCARE ADMINISTRATOR 09/29/2024 Abstract [facility] [address] [place] [address] Aaron Roberts MD 09/28/2024 Telephone [facility] [address] [place] [phone] Jasmyne Casillas, OPERATOR TECHNICIAN - HEALTHCARE ADMINISTRATOR Gabapentin 09/25/2024 Orders Only [facility] [address] [place] [facility] [place] [address] Jasmyne Casillas, OPERATOR TECHNICIAN - HEALTHCARE ADMINISTRATOR 09/25/2024 Telephone [facility] [address] [place] [facility] [place] [address] Jasmyne Casillas, OPERATOR TECHNICIAN - HEALTHCARE ADMINISTRATOR Restless legs 09/21/2024 Telephone [facility] [address] [place] [address] Jasmyne Casillas, OPERATOR TECHNICIAN - HEALTHCARE ADMINISTRATOR RLS 09/14/2024 Abstract [facility] [address] [place] [address] Jasmyne Casillas, OPERATOR TECHNICIAN - HEALTHCARE ADMINISTRATOR 09/14/2024 Abstract [facility] [address] [place] [address] Jasmyne Casillas, OPERATOR TECHNICIAN - HEALTHCARE ADMINISTRATOR 09/14/2024 Abstract [facility] [address] [place] [address] Jasmyne Casillas, OPERATOR TECHNICIAN - HEALTHCARE ADMINISTRATOR 09/14/2024 Orders Only [facility] [address] [place] [address] Kaden Tovar II, MD 09/09/2024 Abstract [facility] [address] [facility] [place] [address] Jasmyne Casillas APRN - CURTIS 09/09/2024 Abstract [facility] [address] [facility] [place] [address] Jasmyne Casillas APRN - CURTIS 09/07/2024 9:00 AM EDT Office Visit [facility] [address] [place] [phone] Jasmyne Casillas OPERATOR TECHNICIAN - CURTIS Paroxysmal atrial fibrillation (HCC) (Primary Dx); Stage 3 chronic kidney disease, unspecified whether stage 3a or 3b CKD (HCC); Hx of aortic valve replacement; S/P total knee arthroplasty, left; Mild persistent asthma without complication; Controlled type 2 diabetes mellitus without complication, without long-term current use of insulin (HCC); Hypercholesterolemia ; Adenocarcinoma of left lung (HCC); Hx of ischemic left MCA stroke; Hx of cancer of lung; Acquired hypothyroidism; Heart failure with preserved ejection fraction, unspecified HF chronicity (HCC); Primary hypertension; History of right breast cancer; Caregiver stress 09/07/2024 Refill [facility] [address] [facility] [place] [address] Jasmyne Casillas APRN - CURTIS Medication Refill 08/28/2024 Abstract [facility] [address] [facility] [place] [address] Jasmyne Casillas OPERATOR TECHNICIAN - CURTIS from Last 3 Months Immunizations Immunization Administration Dates Next Due COVID-19, PFIZER PURPLE top, DILUTE for use, (age 12 y+), 30mcg/0.3mL 03/28/2021,08/19/2020,07/29/2020 COVID-19, PFIZER, , ( age 12y+), IM, 30mcg/0.3mL 03/10/2024 Influenza 05/26/2013 Influenza Virus Vaccine 05/01/2019,04/30,05/10/2017,2014,04/22/2014,05/26/2013 Influenza, FLUAD, (age 65 y+ ), IM, Quadv, 0.5mL 04/29/2023,04/24/2021,03/04/2019 Influenza, FLUAD, (age 65 y+ ), IM, Trivalent PF, 0.5mL 05/11/2024,04/20/2020 Influenza, FLUARIX, FLULAVAL , FLUZONE (age 6 mo+) and AFLURIA, (age 3 y+), Quadv PF, 0.5mL 05/08/2017,05/28/2016 Influenza, FLUZONE High Dose (age 65 y+), IM, Quadv, 0.7mL 04/12/2022 Influenza, FLUZONE High Dose , (age 65 y+), IM, Trivalent PF, 0.5mL 05/05/2019 Pneumococcal, PCV-13, PREVNA R 13, (age 6w+), IM, 0.5mL 01/25/2016 Pneumococcal, PCV20, PREVNAR 20, (age 6w+), IM, 0.5mL 05/29/2022 Pneumococcal, PPSV23, PNEUMO VAX 23, (age 2y+), SC/IM, 0.5mL 07/25/2017,05/07/2014 RSV, ABRYSVO, ( or a ge 60y+), PF, IM, 0.5mL 06/26/2023 TDaP, ADACEL (age 10y-64y), BOOSTRIX (age 10y+), IM, 0.5mL 09/06/2021 Zoster Live (Zostavax) 10/26/2013,11/04/2012 Zoster Recombinant (Shingrix) 10/01/2018, 019 Family History Medical History Relation Name Comments Diabetes type 2 Brother 1 Michael High Cholesterol Brother 1 Michael Other Brother 1 Michael agent [place] Cancer Brother 2 Alfredo bladder Heart Surgery Brother 2 Alfredo High Cholesterol Brother 2 Alfredo Heart Attack Father Abdirahman High Cholesterol Father Abdirahman High Cholesterol Mother [place] Breast Cancer Sister 1 Gabriela age 53 High Cholesterol Sister 1 [place] Breast Cancer Sister 2 Coby age 67 High Cholesterol Sister 2 Coby Relation Name Status Comments Brother 1 Michael Alive Brother 2 Alfredo Alive Father Abdirahman (Age 76) heart Mother Tayler (Age 89) Cancer weeks creas Sister 1 Gabriela Alive Sister 2 Coby Alive Social History Tobacco Use Types Packs/Day Years Used Date Smoking Tobacco: Former Cigarettes 0.5 7 0 07/01/1963 - 07/01/1970 Smokeless Tobacco: Never Tobacco Cessation:Counseling Given: Not Answered Alcohol Use Standard Drinks/Week Comments No 0 (1 standard drink = 0.6 oz pur e alcohol) [facility] Utilities Answer Date Recorded In the past 12 months has th e [employer], gas, oil, or water [employer] threatened to shut off services in your [...] any time in the past 12 m [facility], were you homeless or living [...] Pulse 59 11/20/2024 3:25 PM EDT Temperature 36.2 C (97.1 F) 06/01/2024 1:47 PM EST Respiratory Rate 20 06/01/2024 1:47 PM EST Oxygen Saturation 94% 11/20/2024 3:25 PM EDT Inhaled Oxygen Concentration - - Weight 79.4 kg (175 lb) 11/20/2024 3:25 PM EDT Height 165.1 cm (5' 5 ) 09/07/2024 9:17 AM EDT Body Mass Index 29.12 09/07/2024 9:17 AM EDT Plan of Treatment Upcoming Encounters Date Type Department Care Team (Late st Contact Info) Description 11/30/2024 9:20 AM EDT Office Visit [facility] [address] [place] [address] Jasmyne Casillas, OPERATOR TECHNICIAN - HEALTHCARE ADMINISTRATOR [address] [place] [address] Yearly AWV 01/04/2025 9:45 AM EDT Office Visit [facility] [address] [place] [address] Tapan Ellsworth MD [address] [facility] [address] [place] [address] 6m f/u with download Health Maintenance Due Date Last Done Comments Diabetic Alb to Cr ratio (uACR) test 1959 COVID-19 Vaccine ( season) 2024 03/10/2024, 04/19/2022, 01/19/2022, Additional history exists Annual Wellness Visit (Medicare) 11/11/2024 11/11/2023, 04/29/2023, 04/23/2022, Additional history exists Lipids 05/11/2025 05/11/2024, 10/29, 04/29/2023, Additional history exists GFR test (Diabetes, CKD 3-4, OR last GFR 15-59) 07/28/2025 07/28/2024, 05/11/2024, 04/08/2023, Additional history exists Depression Screen 08/10/2025 08/10/2024, 08/10/2024 DTaP/Tdap/Td vaccine (2 - Td or Tdap) 09/07/2031 09/06/2021 Shingles vaccine Completed 10/01/2018, , 10/26/2013, Additional history exists Pneumococcal 50+ years Vaccine Completed 05/29/2022, 07/25/2017, 01/25/2016, Additional history exists DEXA (modify frequency per FRAX score) Completed 06/04/2023, 05/31/2021, 05/31/2021, Additional history exists Respiratory Syncytial Virus (RSV) or age 60 yrs+ Completed 06/26/2023 Flu vaccine Completed 05/11/2024, 04/02, 04/12/2022, Additional history exists Hepatitis A vaccine Aged Out No longe r eligible based on patient's age to complete this topic Hepatitis B vaccine Aged Out No longe r eligible based on patient's age to complete this topic Hib vaccine Aged Out No longer eligi ble based on patient's age to complete this topic Meningococcal (ACWY) vaccine Aged Out No longer eligible based on patient's age to complete this topic Meningococcal B vaccine Aged Out No l onger eligible based on patient's age to complete this topic Polio vaccine Aged Out No longer elig ible based on patient's age to complete this topic Procedures Procedure Name Priority Date/Time Associated Diagnosis Comments CBC WITH AUTO DIFFERENTIAL Routine 11/20/2024 4:15 PM EDT Other iron deficiency anemia IRON AND TIBC Routine 11/20/2024 4:15 PM EDT Other iron deficiency anemia FERRITIN Routine 11/20/2024 4:15 PM EDT Other iron deficiency anemia VITAMIN B12 & FOLATE Routine 11/20/2024 4:15 PM EDT Other iron deficiency anemia BLOOD OCCULT STOOL DIAGNOSTIC Routine 11/20/2024 4:15 PM EDT Normocytic anemia LAB RESULT Routine 11/19/2024 7:27 AM EDT EGD Routine 10/26/2024 12:10 PM EDT HM COLONOSCOPY Routine 10/26/2024 12:09 PM EDT BASIC METABOLIC PANEL Routine 07/28/2024 5:25 AM EST LIPID PANEL Routine 05/11/2024 11:16 AM EST Hypercholesterolemi a DEXA BONE DENSITY 2 SITES Routine 06/04/2023 10:03 AM EST Screening for osteoporosis Postmenopausal estrogen deficiency from Last 3 Months or Most Recently Relevant to Health Maintenance Results * Vitamin B12 & Folate (11/20/2024 4:15 PM EDT) Vitamin B-12 697 232 - 1245 pg/mL 11/20/2024 4:15 PM EDT [facility] Folate 11.2 4.8 - 24.2 ng/mL 11/20/2024 4:15 PM EDT [facility] Blood BLOOD SPECIMEN / Unknown 11/20/2024 4:15 PM EDT 11/20/2024 4:17 PM EDT Jasmyne Casillas APRN - HEALTHCARE ADMINISTRATOR CHEMISTRY ORDERABLES Fi nal Result Performing Organization Address City/[facility]/ZIP Co de Phone Number [facility] [address] [place] [address], [facility] [phone] [facility] [employer] [address] [place] [address] * (ABNORMAL) Blood Occult Stool #1 (11/20/2024 4:15 PM EDT) Pathologist [facility] Occult Blood, Stool #1 NEGATIVE NEGATIVE 11/20/2024 4:15 PM EDT [facility] Date, Stool #1 11/20/24 11/20/2024 4:15 PM EDT [facility] Time, Stool #1 [id number] 11/20/2024 4:15 PM EDT [facility] Occult Blood, Stool #2 NOT DONE(A) NEGATIVE 11/20/2024 4:15 PM EDT [facility] Occult Blood, Stool #3 NOT DONE(A) NEGATIVE 11/20/2024 4:15 PM EDT [facility] STOOL SPECIMEN / Unknown 11/20/2024 4:15 PM EDT 11/20/2024 4:16 PM EDT Nomi Beauchamp DO BODY FLUIDS AND STOOLS ORDE RABLES Final Result Performing Organization Address City/[facility]/ZIP Co de Phone Number [facility] [address] [place] [address], [facility] [phone] * (ABNORMAL) CBC with Auto Differential (11/20/2024 4:15 PM EDT) [facility] Signature WBC 6.5 3.5 - 11.0 k/uL 11/20/2024 4:15 PM EDT [facility] RBC 3.25(L) 4.00 - 5.20 m/uL 11/20/2024 4:15 PM EDT [facility] Hemoglobin 8.5(L) 12.0 - 16.0 g/dL 11/20/2024 4:15 PM EDT [facility] Hematocrit 27.7(L) 36.0 - 46.0 % 11/20/2024 4:15 PM EDT [facility] MCV 85.2 80.0 - 100.0 fL 11/20/2024 4:15 PM EDT [facility] MCH 26.2 26.0 - 34.0 pg 11/20/2024 4:15 PM EDT [facility] MCHC 30.7(L) 31.0 - 37.0 g/dL 11/20/2024 4:15 PM [facility] RDW 15.6(H) 12.1 - 15.2 % 11/20/2024 4:15 PM EDT [facility] Platelets 229 140 - 450 k/uL [facility]/20[facility] MPV 9.5 6.0 - 12.0 fL 11/20/2024 4:15 PM [facility] Neutrophils % 58 47 - 75 % 11/20/2024 4:15 PM EDT [facility] Lymphocytes % 27 15 - 40 % 11/20/2024 4:15 PM EDT [facility] [address] Monocytes % 10(H) 4 - 8 % 11/20/2024 4:15 PM EDT [facility] [address] Eosinophils % 4 0 - 5 % 11/20/2024 4[facility] Basophils % 1 0 - 2 % 11/20/2024 4:15 PM [facility] Immature Granulocytes % 0 0 - 5 % 11/20/2024 4:15 PM [facility] Neutrophils Absolute 3.84 2.5 - 7.0 k/uL 11/20/2024 4:15 PM EDT [facility] Lymphocytes Absolute 1.76 1.00 - 4.80 k/uL 11/20/2024 4:15 PM EDT [facility] Monocytes Absolute 0.62 0.00 - 1.00 k/uL 11/20/2024 4:15 PM EDT [facility] Eosinophils Absolute 0.24 0.00 - 0.40 k/uL 11/20/2024 4:15 PM EDT [facility] Basophils Absolute 0.05 0.00 - 0.20 k/uL 11/20/2024 4:15 PM EDT [facility] Immature Granulocytes Absolute 0.01 0.00 - 0.30 k/uL 11/20/2024 4:15 PM EDT [facility] Blood BLOOD SPECIMEN / Unknown 11/20/2024 4:15 PM EDT 11/20/2024 4:17 PM EDT Jasmyne Casillas OPERATOR TECHNICIAN - HEALTHCARE ADMINISTRATOR HEMATOLOGY ORDERABLES F inal Result Performing Organization Address City/State/[facility] Co de Phone Number [facility] [address] [place] [address], [facility] [phone] * (ABNORMAL) Iron and TIBC (11/20/2024 4:15 PM EDT) Iron 179(H) 37 - 145 ug/dL 11/20/2024 4:15 PM EDT [email or web address] TIBC 367 250 - 450 ug/dL 11/20/2024 4:15 PM EDT [facility] Iron % Saturation 49 20 - 55 % 11/20/2024 4:15 PM EDT [email or web address] UIBC 188 112 - 347 ug/dL 11/20/2024 4:15 PM EDT [facility] Blood BLOOD SPECIMEN / Unknown 11/20/2024 4:15 PM EDT 11/20/2024 4:17 PM EDT Jasmyne Casillas OPERATOR TECHNICIAN - HEALTHCARE ADMINISTRATOR CHEMISTRY ORDERABLES Fi nal Result Performing Organization Address City/[facility]/ZIP Co de Phone Number [facility] [address] [place] [address], [facility] [phone] [facility] [address] [place] [address], [facility] [phone] * Ferritin (11/20/2024 4:15 PM EDT) Ferritin 46 ng/mL 11/20/2024 4:15 PM EDT [facility] Comment:No reference range e stablished for this age/gender. Blood BLOOD SPECIMEN / Unknown 11/20/2024 4:15 PM EDT 11/20/2024 4:17 PM EDT Jasmyne Casillas APRN - [facility] CHEMISTRY ORDERABLES Fi nal Result Performing Organization Address [facility] Co de Phone Number [facility] [address] [place] [address], [facility] [phone] [facility] [address] [place] [address] * LAB RESULT (11/19/2024 7:27 AM EDT) Historical Provider CHEMISTRY ORDERABLES Dinorah l Result * EGD Routine (10/26/2024 12:10 PM EDT) Historical Provider ENDOSCOPY ORDERABLES Dinorah l Result * HM COLONOSCOPY (10/26/2024 12:09 PM EDT) Historical Provider HEALTH MAINTENANCE Final Result * Basic Metabolic Panel (07/28/2024 5:25 AM EST) Sodium 139 mmol/L Chloride 105 mmol/L Potassium 3.9 mmol/L BUN 26 mg/dL Creatinine 1.37 mg/dL Glucose 122 mg/dL CO2 26.8 mmol/L Calcium 8.9 mg/dL Est, Glom Filt Rate 38.312 Blood BLOOD SPECIMEN / Unknown 07/28/2024 5:25 AM EST Kaden Tovar II, MD CHEMISTRY ORDERABLE S Edited Result - Final * (ABNORMAL) Lipid Panel (05/11/2024 11:16 AM EST) Cholesterol, Total 161 0 - 199 mg/dL 05/11/2024 11:16 AM EST [facility] Comment: Cholesterol Guidelines: <200 Desirable 200-240 Borderline >240 Undesirable HDL 44 >40 mg/dL 05/11/2024 11:16 AM EST [facility] Comment: HDL Guidelines: <40 Undesirable 40-59 Borderline >59 Desirable LDL Cholesterol 85 0 - 100 mg/dL 05/11/2024 11:16 AM EST [facility] Comment: LDL Guidelines: <100 Desirable 100-129 Near to/above Desirable 130-159 Borderline >159 Undesirable Direct (measured) LDL and calculated LDL are not interchangeable tests. Chol/HDL Ratio 3.7 05/11/2024 11:16 AM EST [facility] Triglycerides 159(H) <150 mg/dL 05/11/2024 11:16 AM EST [facility] Comment: Triglyceride Guidelines: <150 Desirable 150-199 Borderline 200-499 High >499 Very high Based on AHA Guidelines for fasting triglyceride, March 2012. VLDL 32(H) 1 - 30 mg/dL 05/11/2024 11:16 AM EST [facility] Blood BLOOD SPECIMEN / Unknown 05/11/2024 11:16 AM EST 05/11/2024 11:17 AM EST Jasmyne Casillas OPERATOR TECHNICIAN - HEALTHCARE ADMINISTRATOR CHEMISTRY ORDERABLES Fi nal Result [facility] [address] [place] [address], [facility] [phone] [facility] [employer] [address] [place] [address], [facility] [phone] * DEXA BONE DENSITY 2 SITES (06/04/2023 10:03 AM EST) Anatomical Region Laterality Modality Radiographic Lolis ging 06/04/2023 10:0 3 AM EST Impressions 06/09/2023 8:29 AM EST 1. Bone mineral density by WHO criteria: Osteoporosis. Fracture risk high. WHO 10-year fracture risk assessment described above. 2. When compared with the most recent study 05/31/2021, there has been a 7.3% increase in bone mineral density of the lumbar spine, and a 3.1% decrease in bone mineral density at the left hip. REFERENCE: In postmenopausal women and males 50 or over, comparison of the measured bone mineral density with the average value in young normal subjects (the T-Score) has been found to be useful in assessing fracture risk. Fracture risk approximately doubles for each 1.0 standard deviation (SD) that the individuals hip or spine bone mineral density is below the average value of young normal subjects. The World Health Organization (WHO) has provided the following definitions: 1. Normal: T-Score within one standard deviation of young adult mean value (T-Score at or above -1.0). 2. Osteopenia (low bone mass): T-Score more than one standard deviation below the young adult mean but less than 2.5 standard deviations below the young adult mean (T-Score between -1.0 and -2.5). 3. Osteoporosis: T-Score at or more than 2.5 standard deviations below the young adult mean (T-Score at or less than -2.5). 4. Severe Osteoporosis (established osteoporosis): T-Score more than 2.5 standard deviations below young adult and one or more fragility fracture (T-Score less than -2.5 plus fragility fractures). FRAX assessment calculated fracture probability for an untreated patient. Fracture probability may be lower if the patient has received treatment. WHO Fracture risk assessment tool (FRAX) is typically not reported in patients already receiving therapy for osteoporosis, in patients with known vertebral or hip fractures, or in patients younger than 50. Narrative 06/09/2023 8:29 AM EST DEXA Bone Density Study with FRAX analysis CLINICAL:83 years Female. Evaluate bone mineral density. FINDINGS: The bone density study was assessed by dual-energy x-ray absorptiometry with the HoloKofikafe scanner. FRAX analysis also performed. The test results are expressed in T-Score, which is used for diagnosis for osteoporosis, and reflects the standard deviations from the mean peak bone mineral density in young adults. Additional information regarding the Z-Score reflects the standard deviations from the mean peak bone mineral density for age- and gender- matched subject. Lumbar Spine (L1-L4): BMD (gm/cm2): 1.261 T-Score: 0.7 Left TOTAL Hip: BMD (gm/cm2): 0.771 T-Score: -1.9 Left hip, NECK: BMD (gm/cm2): 0.754 T-Score: -2.0 Right TOTAL Hip: BMD (gm/cm2): 0.767 T-Score: -1.9 Right hip, NECK: BMD (gm/cm2): 0.695 T-Score: -2.5 FRAX analysis of 10-year fracture risk: Major osteoporotic fracture: 27.1% Hip fracture: 11.0% Fracture probability calculated for an untreated patient. Fracture probability may be lower if the patient has received treatment. Procedure Note Rudi Read MD - 06/09/2023 DEXA Bone Density Study with FRAX analysis CLINICAL:83 years Female. Evaluate bone mineral density. FINDINGS: The bone density study was assessed by dual-energy x-ray absorptiometry with the Hologic scanner. FRAX analysis also performed. The test results are expressed in T-Score, which is used for diagnosis for osteoporosis, and reflects the standard deviations from the mean peak bone mineral density in young adults. Additional information regarding theZ-Score reflects the standard deviations from the mean peak bone mineral densityfor age- and gender- matched subject. Lumbar Spine (L1-L4): BMD (gm/cm2): 1.261 T-Score: 0.7 Left TOTAL Hip: BMD (gm/cm2): 0.771 T-Score: -1.9 Left hip, NECK: BMD (gm/cm2): 0.754 T-Score: -2.0 Right TOTAL Hip: BMD (gm/cm2): 0.767 T-Score: -1.9 Right hip, NECK: BMD (gm/cm2): 0.695 T-Score: -2.5 FRAX analysis of 10-year fracture risk: Major osteoporotic fracture: 27.1% Hip fracture: 11.0% Fracture probability calculated for an untreated patient. Fractureprobability may be lower if the patient has received treatment. IMPRESSION: 1. Bone mineral density by WHO criteria: Osteoporosis. Fracture risk high.WHO 10-year fracture risk assessment described above. 2. When compared with the most recent study 05/31/2021, there has been a7.3% increase in bone mineral density of the lumbar spine, and a 3.1% decreasein bone mineral density at the left hip. REFERENCE: In postmenopausal women and males 50 or over, comparison of the measuredbone mineral density with the average value in young normal subjects (theT-Score) has been found to be useful in assessing fracture risk. Fracture risk approximately doubles for each 1.0 standard deviation (SD) that theindividuals hip or spine bone mineral density is below the average value of youngnormal subjects. The World Health Organization (WHO) has provided the following definitions: 1. Normal: T-Score within one standard deviation of young adult mean value (T-Score at or above -1.0). 2. Osteopenia (low bone mass): T-Score more than one standard deviationbelow the young adult mean but less than 2.5 standard deviations below the young adult mean (T-Score between -1.0 and -2.5). 3. Osteoporosis: T-Score at or more than 2.5 standard deviations below the young adult mean (T-Score at or less than -2.5). 4. Severe Osteoporosis (established osteoporosis): T-Score more than 2.5 standard deviations below young adult and one or more fragility fracture (T-Score less than -2.5 plus fragility fractures). FRAX assessment calculated fracture probability for an untreated patient. Fracture probability may be lower if the patient has received treatment. WHO Fracture risk assessment tool (FRAX) is typically not reported inpatients already receiving therapy for osteoporosis, in patients with knownvertebral or hip fractures, or in patients younger than 50. 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 Expl anation ACP-Do Not Resuscitate 05/14/2022 9:42 AM 05/14/22 DNR Comfort Care ACP-Advance Directive 05/24/2014 5:29 PM ACP-Power of Bull Gang Supervisor 05/24/2014 5:29 PM * Full Code (Latest Code Status on File) Date Activated Date Inactivated Comments 05/19/2014 3:15 PM 05/22/2014 6:14 PM * Full Code Date Activated Date Inactivated Comments 05/19/2014 8:24 AM 05/19/2014 3:07 PM * Full Code Date Activated Date Inactivated Comments 09/10/2012 1:53 PM 09/10/2012 5:09 PM Care Teams Set Up Mechanic Automatic Line Relationship Specialty Start Date End Date Jasmyne Casillas, OPERATOR TECHNICIAN - HEALTHCARE ADMINISTRATOR [address] [id number] PCP - General 12/27/15
--- OUTSIDE RECORDS SUMMARY | 2024-11-26 11:38 | XMS_ITS | Patient Health Record ---
Author Organization [facility] Address [address] [place] [address] Support Name Relationship Address Phone Lisa Botello Guarantor Unknown Unavailable Reason For Referral No Information Plan Of Treatment No Information
--- OUTSIDE RECORDS SUMMARY | 2024-11-26 11:38 | XMS_ITS | Encounter Summary ---
Author Organization [facility] Address [address] [place] [address] Care Team Providers Care Neonatal Nurse Name Role Phone Jasmyne Casillas APRN - NEWSPAPER PHOTO EDITOR Primary Care Provider Encounter Details Date Type Department Care Team (Late st Contact Info) Description 06/21/2021 Transcribe Orders Latif Pre Access [address] [id number] Edmundo Miller MD [address] [id number] Breast lump (Primary Dx) Social History Tobacco Use Types [...] Description 11/30/2024 9:20 AM EDT Office [place] [facility] [address] [place] [address] Jasmyne Casillas, EARLY CHILDHOOD SPECIALIST - NEWSPAPER PHOTO EDITOR [address] [place] [address] Yearly AWV 01/04/2025 9:45 AM EDT Office Visit [facility] of [facility] [address] [place] [address] Tapan Ellsworth MD [address] [address] 6m f/u with download documented as of this encounter Visit Diagnoses Diagnosis Breast lump- Primary Lump or mass in breast documented in this encounter Additional Health Concerns Assessment Noted Time A fall risk assessment has been complete d for the patient 2021 8:04 AM EDT A Body Mass Index follow-up plan has been documented for the patient 04/24/2021 11:32 AM EDT documented as of this encounter Care Teams Neonatal Nurse Relationship Specialty Start Date End Date Jasmyne Casillas, EARLY CHILDHOOD SPECIALIST - NEWSPAPER PHOTO EDITOR [address] [place] [address] PCP - General 12/27/15 documented as of this encounter
--- OUTSIDE RECORDS SUMMARY | 2024-11-26 11:38 | XMS_ITS | Encounter Summary ---
Author Organization [facility] Address [address] [place] [address] Care Team Providers Care Diesel Fleet Mechanic Name Role Phone Jasmyne Casillas APRN - SPECIAL FORCES MEDICAL SERGEANT Primary Care Provider Encounter Details Date Type Department Care Team (Late st Contact Info) Description 01/07/2020 Telephone [facility] [address] [place] [address] Selvin Johnston, RN Social History Tobacco Use Types Packs/Day Years Used Date Smoking Tobacco: Former Cigarettes 0.5 7 0 07/01/1963 - 07/01/1970 Smokeless Tobacco: Never Alcohol Use Standard Drinks/Week Comments No 0 (1 standard drink = 0.6 oz pur e alcohol) PHQ-2 Answer Date Recorded PHQ-2 Score 0 10/01/2018 Comments No Sex and Gender Information Value [...] Description 11/30/2024 9:20 AM EDT Office Visit [facility] [address] [place] [address] Jasmyne Casillas, CORE DRILL OPERATOR HELPER - SPECIAL FORCES MEDICAL SERGEANT [address] [place], [place] [phone] Yearly AWV 01/04/2025 9:45 AM EDT Office Visit [facility] of [facility] [address] [place] [address] Tapan Ellsworth MD [address] [address] 6m f/u with download documented as of this encounter Visit Diagnoses Not on filedocumented in this encounter Additional Health Concerns Assessment Noted Time A fall risk assessment has been complete d for the patient 09/10/2018 8:12 AM EDT documented as of this encounter Care Teams Diesel Fleet Mechanic Relationship Specialty Start Date End Date Jasmyne Casillas APRN - SPECIAL FORCES MEDICAL SERGEANT [address] [place] [id number] PCP - General 12/27/15 documented as of this encounter
--- OUTSIDE RECORDS SUMMARY | 2024-11-26 11:38 | XMS_ITS | Encounter Summary ---
Author Organization [facility] Address [facility] [place] [address] Care Team Providers Care Reclamation Furnace Operator Name Role Phone Vahe Gottlieb MD Unavailable [phone] Storm Alcazar MD, Tuan Gilbert Unavailable [phone] Ky Adan MD Unavailable [phone] Chelle Marin APRN.ELEVATOR TROUBLESHOOTER Unavailable [phone] Babatunde Pizarro MD Unavailable Jasmyne Casillas [facility] Primary Care Provider [phone] Cameron Pappas MD Unavailable Source Comments In the event this information is protected by the Federal Confidentiality of Alcohol and Drug AbusePatient Records regulations: The Federal rules restrict any use of the information to criminally investigate or prosecute any alcohol or drug abuse patient.[facility] Encounter Details Date Type Department Care Team (Late st Contact Info) Description 05/20/2024 [place] [address] Provider, Ccf Actionable Imaging Result Notification Patient [...] place to sleep or slept in a mcc (including now)? No 06/14/2022 Area Deprivation Index Answer Date Juarez rded National Score (1-100), lowe r number is lower risk 39 11/13/2022 State Score (1-10), lower number is lower risk 2 11/13/2022 Data from: https://www.neighborhoodatlas.medicine.[facility].edu /. Last address used for calculation [address] [...] Appointment Radiology [address] [place] [address] pet 02/22/2025 11:00 AM EDT Visit (SP) Office Hematology/Oncology [address] [place] [address] Herbert Swenson MD [address] [place] [address] [address] Vernon / SURESH pt documented as of this encounter Visit Diagnoses Not on filedocumented in this encounter Care Teams Reclamation Furnace Operator Relationship Specialty Start Date End Date Jasmyne Casillas, ELEVATOR TROUBLESHOOTER [address] [place] [address] PCP - General Family Medicine 04/06/21 Vahe Gottlieb MD [address] [place] [address] Cardiology 10/14/13 Tuan Inman Jr., MD [address] [place] [place] [address] Orthopedics 07/19/15 Ky Adan MD [address] [facility] [place] [address] Physician Hematology/Oncology 07/06/20 Chelle Marin APRN.ELEVATOR TROUBLESHOOTER [address] [facility] [place] [address] Nurse Practitioner Hematology/Oncology 07/06/20 Babatunde Pizarro MD [address] [facility] [place] [address] Radiation Oncology 07/07/20 Cameron Pappas MD [address] [place] [address] Cardiology 05/18/22 documented as of this encounter
--- OUTSIDE RECORDS SUMMARY | 2024-11-26 11:38 | XMS_ITS | Encounter Summary ---
Author Organization [facility] Address [address] [place] [address] Care Team Providers Care Mine Wedge Sawyer Name Role Phone Jasmyne Casillas APRN - PRODUCTION HONING MACHINE OPERATOR Primary Care Provider Encounter Details Date Type Department Care Team (Late st Contact Info) Description 06/21/2021 Transcribe Orders Latif Pre Access [address] [phone] Edmundo Miller MD [address] [phone] Breast lump (Primary Dx) Social History Tobacco [...] Description 11/30/2024 9:20 AM EDT Office Visit [facility] [address] [place] [address] Jasmyne Casillas, SPRINKLER FITTER - PRODUCTION HONING MACHINE OPERATOR [address] [place] [address] Yearly AWV 01/04/2025 9:45 AM EDT Office Visit [facility] Part of [facility] [address] [place] [address] Tapan Ellsworth MD [address] [address] 6m f/u with download documented as of [...] documented as of this encounter Care Teams Mine Wedge Sawyer Relationship Specialty Start Date End Date Jasmyne Casillas, SPRINKLER FITTER - PRODUCTION HONING MACHINE OPERATOR [address] [place] [address] PCP - General 12/27/15 documented as of this encounter
--- OUTSIDE RECORDS SUMMARY | 2024-11-26 11:38 | XMS_ITS | Encounter Summary ---
Author Organization [facility] Address [address] [place] [address] Care Team Providers Care Garment Worker Name Role Phone Vahe Gottlieb MD Unavailable [phone] Storm Alcazar MD, Tuan Gilbert Unavailable [phone] Ky Adan MD Unavailable [phone] Chelle Marin APRN.PLANT PHYSIOLOGY TEACHER Unavailable [phone] Babatunde Pizarro MD Unavailable Jasmyne Casillas [facility] Primary Care Provider [phone] Cameron Pappas MD Unavailable Source Comments In the event this information is protected by the Federal Confidentiality of Alcohol and Drug AbusePatient Records regulations: The Federal rules restrict any use of the information to criminally investigate or prosecute any alcohol or drug abuse patient.[facility] Encounter Details Date Type Department Care Team (Late st Contact Info) Description 01/25/2023 Lab Requisition [facility] [address] [place] [address] Sai Caputo MD [address] [place] [address] Person encountering health services to consult on [...] place to sleep or slept in a fpc (including now)? No 06/14/2022 Area Deprivation Index Answer Date Juarez rded National Score (1-100), lowe r number is lower risk 39 11/13/2022 State Score (1-10), lower number is lower risk 2 11/13/2022 Data from: https://www.neighborhoodatlas.medicine.[facility].edu /. Last address used for calculation [address] 11/13/2022 Comments No [...] AM EDT Appointment Radiology Pet CT [address] [facility] [employer] [employer] [facility] [place] [place] [address] pet 02/22/2025 11:00 AM EDT Visit (SP) Office Hematology/Oncology [address] [place] [address] Herbert Swenson MD [address] [facility] [place] [address] [address] Vernon / [...] EDT) Case Report Surgical Pathology Report Case: [id number] Authorizing Provider: Sai Caputo MD Collected: 01/25/2023 03:24 PM Ordering Location: [facility] Received: 01/25/2023 03:22 PM Pathologist: Ra Cueva MD Specimen: SLIDE(S), 8 SLIDES ([id number]) 01/28/2023 2:19 PM EDT [facility] FINAL DIAGNOSIS 1. Stomach, antrum, biopsy (A): -Superficial fragment of antral mucosa with reactive gastropathy. -Negative for intestinal metaplasia or dysplasia. -Negative for H. pylori on H&E and immunohistochemical stains. 2. Esophagus, biopsy (B): -Squamous mucosa with active esophagitis, focal erosion and marked epithelial reactive changes. -Cardiofundic-type mucosa with intestinal metaplasia, negative for dysplasia. 01/28/2023 2:19 PM EDT [facility] at 1419 EDT Diagnosis Comment [...] to contact the GI Consultation Service at [phone] with questions or if additional follow up information becomes available. This case was reviewed in conjunction with the GI pathology fellow, Iker Flores MD. 01/28/2023 2:19 PM EDT [facility] Clinical History CONSULT REQUESTED 01/28/2023 2:19 PM EDT [facility] Performing Lab Diagnostic interpretation performed at [facility], [address] [place] [address] CLIA# [id number] Welder And Fitter: Elroy Vuong M.D. 01/28/2023 2:19 PM EDT [facility] Blocks or Slides MICROSCOPE SLIDE / Unknown 01/25/2023 3:24 PM EDT 01/25/2023 3:22 PM EDT us Sai Caputo MD SURGICAL PATHOLOGY Final Resul t [address] [place] [address], documented in this encounter Visit Diagnoses Diagnosis Person encountering health services to consult on behalf of another person Other person consulting on behalf of another person documented in this encounter Care Teams Garment Worker Relationship Specialty Start Date End Date Jasmyne Casillas PLANT PHYSIOLOGY TEACHER [address] [place] [address] PCP - General Family Medicine 04/06/21 Vahe Gottlieb MD [address] [place] [address] Cardiology 10/14/13 Tuan Inman Jr., MD [address] [place] [address] Orthopedics 07/19/15 Ky Adan MD [address] [facility] [place] [place] [address] Physician Hematology/Oncology 07/06/20 Chelle Marin APRN.PLANT PHYSIOLOGY TEACHER [address] [facility] [place] [address] Nurse Practitioner Hematology/Oncology 07/06/20 Babatunde Pizarro MD [address] [facility] [place] [place] [address] Radiation Oncology 07/07/20 Caemron Pappas MD [address] [place] [phone] Cardiology 05/18/22 documented as of this encounter
--- OUTSIDE RECORDS SUMMARY | 2024-11-26 11:39 | XMS_ITS | Encounter Summary ---
Author Organization [facility] Address [address] [place] [address] Care Team Providers Care Trust Vault Clerk Name Role Phone Jasmyne Casillas APRN - WOUND CARE TECHNICIAN Primary Care Provider Encounter Details Date Type Department Care Team (Late st Contact Info) Description 11/24/2024 Results Follow-Up [facility] [address] [place] [address] Nomi Beauchamp, DO [address] [place] [address] Social History Tobacco Use Types Packs/Day Years Used Date Smoking Tobacco: Former Cigarettes 0.5 7 0 07/01/1963 - 07/01/1970 Smokeless Tobacco: Never Alcohol Use Standard Drinks/Week Comments No 0 (1 standard drink = 0.6 oz pur e alcohol) [facility] Utilities Answer Date Recorded In the past 12 months has [employer], gas, oil, or water [employer] threatened to shut off services in your [...] place to sleep or slept in a fci (including now)? No 04/29/2023 Housing Stability Vital Sign Answer Gregor e Recorded In the last 12 months, was t here a time when you were not able to pay the mortgage or rent on time? No 08/10/2024 In the past 12 months, how m any times have you moved where you were living? 0 08/10/2024 At any time in the past 12 m [facility], were you homeless or living in a fci (including now)? No 08/10/2024 Food Insecurity Answer [...] Description 11/30/2024 9:20 AM EDT Office Visit [facility] [address] [place] [address] Jasmyne Casillas APRN - W[place] [address] Yearly AWV 01/04/2025 9:45 AM EDT Office Visit [facility] Part of [facility] [address] [place] [address] Tapan Ellsworth MD [address] [facility] [address] [place] [address] 6m f/u with download Scheduled Orders Name Type Priority Associated Diagnoses Orde r Schedule Hemoglobin and Hematocrit Lab Routine Normocytic anemia Expected: 11/24/2024, Expires: 11/24/2025 documented as of this encounter Visit Diagnoses Diagnosis Normocytic anemia- Primary Anemia, unspecified documented in this encounter Additional Health Concerns Assessment Noted Time A fall risk assessment has been complete d for the patient 11/11/2023 9:17 AM EDT A Body Mass Index follow-up plan has been documented for the patient 07/24/2022 11:38 AM EST documented as of this encounter Care Teams Trust Vault Clerk Relationship Specialty Start Date End Date Jasmyne Casillas APRN - [place] [address] PCP - General 12/27/15 documented as of this encounter
--- OUTSIDE RECORDS SUMMARY | 2024-11-26 11:39 | XMS_ITS | Referral Summary ---
Author Organization [facility] Address [address] [place] [address] Care Team Providers Care Transplant Immunologist Name Role Phone Jasmyne Casillas MD Primary Care Provider [phone] Encounters Date Type Department Care Team Description 11/20/[address] [address] Malina Hurt MA 11/19/[address] [facility] Cardiology [address] [place] [address] Kendy Wang MD 11/19/2024 Orders Only [address] [address] Malina Hurt MA Coronary artery disease due to lipid rich plaque 11/19/[address] [address] Malina Hurt MA 11/19/2024 9:00 AM EDT Office Visit [address] [address] Kendy Wang MD Coronary arteriosclerosis (Primary Dx); Mitral valve problem; Nonrheumatic aortic valve stenosis; Atypical atrial flutter (CMS/HCC); History of aortic valve replacement; Aortic valve disorder; Shortness of breath 10/20/2024 1:45 PM EDT Office Visit [address] [address] Cameron Pappas MD History of aortic valve replacement; Mitral valve stenosis and aortic valve stenosis 09/04/2024 Refill [facility] Heart at [facility] [address] [place] [address] Malina Hurt MA Paroxysmal atrial [...] 6 (six) hours if needed. 03/23/2024 Active atorvastatin (Lipitor) 80 mg tabletIndications :Coronary artery disease due to lipid rich plaque Take 1 tablet (80 mg) by mouth in the morning. 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 Mild persistent asthma without complication 07/01 Primary osteoarthritis of right knee 05/19/2014 Insomnia 01/02/2013 Osteoporosis 12/01/2012 Immunizations Name Administration Dates Next Due Influenza, Seasonal, Quadrivalent, Adjuvanted Social History Tobacco Use Types Packs/Day Years Used Date Smoking Tobacco: Former Cigarettes 1 966 - 6787 Smokeless Tobacco: Never Tobacco Cessation:Counseling Given: Not [...] Description 12/15/2024 2:45 PM EDT Office Visit [facility] Heart at [facility] [address] [place] [address] Kendy Wang MD [address] [facility] [place] [address] Procedures Procedure Name Priority Date/Time Associated Diagnosis Comments COMPREHENSIVE METABOLIC PANEL Routine 11/19/2024 3:53 PM EDT B-TYPE NATRIURETIC PEPTIDE Routine 11/19/2024 3:53 PM EDT CBC Routine 11/19/2024 3:53 PM EDT HEMOGLOBIN A1C Routine 11/30/2019 12:14 PM EDT from Last 3 Months or Most Recently Relevant to Health Maintenance Results * CBC (11/19/2024 3:53 PM EDT) Blood Venous blood specimen / Unknown Kendy Wang MD LAB BLOOD ORDERABLES * B-type natriuretic peptide (11/19/2024 3:53 PM EDT) Blood Venous blood specimen / Unknown Kendy Wang MD LAB BLOOD ORDERABLES * Comprehensive metabolic panel (11/19/2024 3:53 PM EDT) Blood Venous blood specimen / Unknown Kendy Wang MD LAB BLOOD ORDERABLES * Hemoglobin A1C (11/30/2019 12:14 PM EDT) [facility] Hemoglobin A1C 6.0 4.0 - 6.0 % LAB CONVERSIONS Estimated Average Glucose 126 70 - 126 mg/dL LAB CONVERSIONS 11/30/2019 12:1 4 PM EDT 11/30/2019 12:14 PM EDT Praful Mackay MD LAB BLOOD ORDERABLES LAB CONVERSIONS from Last 3 Months or Most Recently Relevant to Health Maintenance Care Teams Transplant Immunologist Relationship Specialty Start Date End Date Jasmyne Casillas MD [address] [place] [address] PCP - General 05/15/22
--- OUTSIDE RECORDS SUMMARY | 2024-11-26 11:39 | XMS_ITS | Clinical Summary ---
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 Mild persistent asthma without complication 07/01 Primary osteoarthritis of right knee 05/19/2014 Insomnia 01/02/2013 Osteoporosis 12/01/2012 Encounters Date Type Department Care Team Description 11/20/[address] [address] Malina Hurt MA 11/19/2024 9:00 AM EDT Office Visit [address] [address] Kendy Wang MD Coronary arteriosclerosis (Primary Dx); Mitral valve problem; Nonrheumatic aortic valve stenosis; Atypical atrial flutter (CMS/HCC); History of aortic valve replacement; Aortic valve disorder; Shortness of breath 11/19/2024 Orders Only [facility] Cardiology [address] [place] [address] Kendy Wang MD 11/19/2024 Orders Only [address] [address] Malina Hurt MA Coronary artery disease due to lipid rich plaque 11/19/[address] [address] Malina Hurt MA 10/20/2024 1:45 PM EDT Office Visit [address] [address] Cameron Pappas MD History of aortic valve replacement; Mitral valve stenosis and aortic valve stenosis 09/04/[address] [address] Malina Hurt MA Paroxysmal atrial fibrillation [...] Former Cigarettes 1 1972 Smokeless Tobacco: Never Tobacco Cessation:Counseling Given: [...] Description 12/15/2024 2:45 PM EDT Office Visit [facility] Heart at [facility] [address] [place] [address] Kendy Wang MD [address] [facility] [place] [address] Health Maintenance Due Date Last Done Comments [...] Recently Relevant to Health Maintenance Care Teams Rv Mechanic Relationship Specialty Start Date End Date Jsamyne Casillas MD [address] [place] [address] PCP - General 05/15/22
--- OUTSIDE RECORDS SUMMARY | 2024-11-26 11:39 | XMS_ITS | Encounter Summary ---
Author Organization [facility] Address [address] [place] [address] Care Team Providers Care Car Shifter Name Role Phone Jasmyne Casillas APRN - EMPLOYMENT ADVISOR Primary Care Provider Encounter Details Date Type Department Care Team (Latest Contact Info) Description 01/23/2021 Transcribe Orders Lat[facility] Pre Access [address] [place] [address] Vahe Llanos MD [address] [place] [address] History of urinary tract infection (Primary Dx); Kidney stones; Chronic kidney disease, stage 3a (HCC) Social History Tobacco Use Types Packs/Day Years [...] Answer Date Recorded PHQ-9 Total Score 0 07/18/2020 Hunger Vital Sign Answer Date Recorded Within [...] Visit [facility] [address] [place] [phone] Jasmyne Casillas, SITE SUPERVISOR - EMPLOYMENT ADVISOR [address] [place] [address] Yearly AWV 01/04/2025 9:45 AM EDT Office Visit [facility] Part of [address] [address] Tapan Ellsworth MD [address] [facility] [address] [place] [address] 6m f/u with download documented as of this encounter Visit Diagnoses Diagnosis History of urinary tract infection- Primary Personal history of urinary (tract) infection Kidney stones Calculus of kidney Chronic kidney disease, stage 3a (HCC) documented in this encounter Additional Health Concerns Assessment Noted Time A fall risk assessment has been complete d for the patient 04/11/2020 6:33 PM EDT A Body Mass Index follow-up plan has been documented for the patient 10/17/2020 8:52 AM EDT documented as of this encounter Care Teams Car Shifter Relationship Specialty Start Date End Date Jasmyne Casillas APRN - EMPLOYMENT ADVISOR [address] [place] [address] PCP - General 12/27/15 documented as of this encounter
--- OUTSIDE RECORDS SUMMARY | 2024-11-26 11:39 | XMS_ITS | Encounter Summary ---
Author Organization [facility] Address [address] [place] [address] Care Team Providers Care Licensed Marriage And Family Therapist Name Role Phone Jasmyne Casillas Ramy SHAH - ELECTRIC FRYING PAN REPAIRER Primary Care Provider Reason for Referral * Imaging (Routine) - Closed Specialty Diagnoses / Procedures Referred By Contac t Referred To Contact Radiology Diagnoses Ductal carcinoma in situ of right breast Procedures GIAN CHRISSY DIGITAL DIAGNOSTIC BILATERAL GIAN DIGITAL DIAGNOSTIC W OR WO CAD BILATERAL Ky Adan MD [address] [place] [address] [place] [address] Phone: tel: fax: Referral ID Status Reason Start Date Expiration Date Visits Re quested Visits Authorized [id number] Closed 11/27/2023 11/26/2024 1 1 Encounter Details Date Type Department Care Team (Latest Contact Info) Description 11/27/2023 Transcribe Orders Latif Pre Access [address] [place], [place] [phone] Ky Adan MD [address] [place] [address] [place] [address] 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 Not hard at all 04/29/2023 PHQ-2 Answer Date Recorded PHQ-9 Total Score 0 11/11/2023 Exercise Vital Sign Answer Date Recorde d [...] the money to buy more. Never true 04/29/20 23 Within the past 12 months, t he food you bought just didn't last and you didn't have money to get more. Never true 04/29/2023 PRAPARE - Transportation Answer Date Re corded Lack of Transportation (Medical) Not on file 04/29/2023 In the past 12 months, has l ack of transportation kept you from meetings, work, or from getting things needed for daily living? No 04/29/2023 Housing Stability Vital Sign Answer Gregor e Recorded Unable to Pay for Housing in the Last Year Not o n file 04/29/2023 Number of Places Lived in the Last Year Not on f ile 04/29/2023 In the last 12 months, was t here a time when you did not have a steady place to sleep or slept in a half-way (including now)? No 04/29/2023 Food Insecurity Answer Date Recorded Within the past 12 months, y ou worried that your food would run out before you got the money to buy more. 1 04/29/2023 Within the past 12 months, t he food you bought just didn't last and you didn't have money to get more. 1 04/29/2023 Comments No Sex and Gender Information Value [...] Description 11/30/2024 9:20 AM EDT Office Visit [facility] [address] [place] [address] Jasmyne Casillas, VICE PRESIDENT RISK MANAGEMENT - ELECTRIC FRYING PAN REPAIRER [address] [place] [address] Yearly AWV 01/04/2025 9:45 AM EDT Office Visit [facility] Part of [facility] [address] [phone] Tapan Ellsworth MD [address] [facility] [address] [place] [address] 6m f/u with download documented as of this encounter Results * [facility] CHRISSY DIGITAL DIAGNOSTIC BILATERAL (04/28/2024 9:11 AM EDT) Anatomical Region Laterality Modality Breast Bilateral Mammography 04/28/2024 9:11 AM EDT Impressions 04/28/2024 4:18 PM EDT BIRADS: 2 - Benign, no evidence of malignancy. Normal interval followup is recommended in 12 months. OVERALL ASSESSMENT- BENIGN A letter of notification will be sent to the patient regarding the results. Performing Facility: [facility] [address] [phone] Narrative 04/28/2024 4:18 PM EDT EXAM: GIAN CHRISSY DIGITAL DIAGNOSTIC BILATERAL HISTORY: Ductal carcinoma in situ of right breast COMPARISON: Prior studies most recent of 04/30/2023, 04/05/2022 TECHNIQUE: 2-D images with 3-D tomography. CAD. FINDINGS: The breasts are heterogeneously dense, which may obscure small masses. Postoperative changes right breast without evidence of recurrent malignancy. Scattered benign calcifications bilaterally. Biopsy clip left breast. us Ky Adan MD IMG MAMMOGRAPHY ORDERABLES Fin al Result documented in this encounter Visit Diagnoses Diagnosis Ductal carcinoma in situ of right breast- Primary Carcinoma in situ of breast Ductal carcinoma in situ of right breast Carcinoma in situ of breast documented in this encounter Additional Health Concerns Assessment Noted Time A fall risk assessment has been complete d for the patient 11/11/2023 9:17 AM EDT A Body Mass Index follow-up plan has been documented for the patient 07/24/2022 11:38 AM EST documented as of this encounter Care Teams Licensed Marriage And Family Therapist Relationship Specialty Start Date End Date Jasymne Casillas, VICE PRESIDENT RISK MANAGEMENT - ELECTRIC FRYING PAN REPAIRER [address] [place], [place] [phone] PCP - General 12/27/15 documented as of this encounter
--- OUTSIDE RECORDS SUMMARY | 2024-11-26 11:39 | XMS_ITS | Encounter Summary ---
Author Organization [facility] Address [address] [place] [address] Care Team Providers Care Water Treatment Plant Mechanic Name Role Phone Jasmyne Casillas APRN - GAS FLOW REGULATOR Primary Care Provider Encounter Details Date Type Department Care Team ([facility] st Contact Info) Description 10/27/2024 Orders Only [facility] Primary Care [place] [address] [phone] Provider, MD José Miguel Social History Tobacco Use Types Packs/Day Years Used Date Smoking Tobacco: Former Cigarettes 0.5 7 0 07/01/1963 - 07/01/1970 Smokeless Tobacco: Never Alcohol Use Standard Drinks/Week Comments No 0 (1 standard drink = 0.6 oz pur e alcohol) [facility] Utilities Answer Date Recorded In the past 12 months has [employer], gas, oil, or water company threatened to [...] place to sleep or slept in a assisted (including now)? No 04/29/2023 Housing Stability Vital Sign Answer Gregor e Recorded In the last 12 months, was t here a time when you were not able to pay the mortgage or rent on time? No 08/10/2024 In the past 12 months, how m any times have you moved where you were living? 0 08/10/2024 At any time in the past 12 m [facility], were you homeless or living in a assisted (including now)? No 08/10/2024 Food Insecurity Answer [...] Upcoming Encounters Date Type Department Care Team ([facility] st Contact Info) Description 11/30/2024 9:20 AM EDT Office Visit [facility] [address] [place] [phone] Jasmyne Casillas, PARING MACHINE OPERATOR [place] [address] Yearly AWV 01/04/2025 9:45 AM EDT Office Visit [facility] Part of [address] [address] Tapan Ellsworth MD [address] [facility] [address] [place], [place] [phone] 6m f/u with download documented as of this encounter Procedures Procedure Name Priority Date/Time Associated Diagnosis Comments EGD Routine 10/26/2024 12:10 PM EDT HM COLONOSCOPY Routine 10/26/2024 12:09 PM EDT documented in this encounter Results * EGD Routine (10/26/2024 12:10 PM EDT) us Historical Provider ENDOSCOPY ORDERABLES Dinorah l Result * COLONOSCOPY (10/26/2024 12:09 PM EDT) us Historical Provider HEALTH MAINTENANCE Final Result documented in this encounter Visit Diagnoses Not on filedocumented in this encounter Additional Health Concerns Assessment Noted Time A fall risk assessment has been complete d for the patient 11/11/2023 9:17 AM EDT A Body Mass Index follow-up plan has been documented for the patient 07/24/2022 11:38 AM EST documented as of this encounter Care Teams Water Treatment Plant Mechanic Relationship Specialty Start Date End Date Jasmyne Casillas, PARING MACHINE OPERATOR [place] [address] PCP - General 12/27/15 documented as of this encounter
--- OUTSIDE RECORDS SUMMARY | 2024-11-26 11:39 | XMS_ITS | Encounter Summary ---
Author Organization [facility] Address [address] [place] [address] Care Team Providers Care Clothing Examiner Name Role Phone Jasmyne Casillas APRN - MIXER MACHINE FEEDER Primary Care Provider Encounter Details Date Type Department Care Team (Late st Contact Info) Description 11/24/2024 Orders Only [facility] [address] [place] [address] Provider, MD José Miguel Social History Tobacco Use Types Packs/Day Years Used Date Smoking Tobacco: Former Cigarettes 0.5 7 0 07/01/1963 - 07/01/1970 Smokeless Tobacco: Never Alcohol Use Standard Drinks/Week Comments No 0 (1 standard drink = 0.6 oz pur e alcohol) [facility] Utilities Answer Date Recorded In the past 12 months has [employer], gas, oil, or water company threatened [...] in a long term (including now)? No 04/29/2023 Housing Stability Vital [...] were you homeless or living in a long term (including now)? No 08/10/2024 Food Insecurity Answer [...] Description 11/30/2024 9:20 AM EDT Office [place] [facility] [address] [place] [address] Jasmyne Casillas, TRANSPLANT CASE MANAGER - [place] [address] Yearly AWV 01/04/2025 9:45 AM EDT Office Visit [facility] Part of [address] [address] Tapan Ellsworth MD [address] [facility] [address] [place], [place] [phone] 6m f/u with download documented as of this encounter Procedures Procedure Name Priority Date/Time Associated Diagnosis Comments LAB RESULT Routine 11/19/2024 7:27 AM EDT documented in this encounter Results * LAB RESULT (11/19/2024 7:27 AM EDT) us Historical Provider CHEMISTRY ORDERABLES Dinorah l Result documented in this encounter Visit Diagnoses Not on filedocumented in this encounter Additional Health Concerns Assessment Noted Time A fall risk assessment has been complete d for the patient 11/11/2023 9:17 AM EDT A Body Mass Index follow-up plan has been documented for the patient 07/24/2022 11:38 AM EST documented as of this encounter Care Teams Clothing Examiner Relationship Specialty Start Date End Date Jasmyne Casillas APRN - [place] [address] PCP - General 12/27/15 documented as of this encounter
--- OUTSIDE RECORDS SUMMARY | 2024-11-26 11:39 | XMS_ITS | Encounter Summary ---
Author Organization [facility] Address [address] [place] [address] Care Team Providers Care Operator Automated Process Name Role Phone Jasmyne Casillas APRN - WEAVER WIRE LOOM Primary Care Provider Encounter Details Date Type Department Care Team (Late st Contact Info) Description 06/05/2021 Transcribe Orders Latif Pre Access [address] [phone] Edmundo Miller MD [address] [phone] Breast lump (Primary Dx); Solitary cyst of right breast Social History Tobacco Use Types Packs/Day Years [...] Visit [facility] [address] [place] [address] Jasmyne Casillas, SNAKER TRACTOR DRIVER - WEAVER WIRE LOOM [address] [place] [address] Yearly AWV 01/04/2025 9:45 AM EDT Office Visit [facility] Part of [facility] [address] [place] [address] Tapan Ellsworth MD [address] [facility] [address] [place] [address] 6m f/u with download documented as of this encounter Visit Diagnoses Diagnosis Breast lump- Primary Lump or mass in breast Solitary cyst of right breast Solitary cyst of breast documented in this encounter Additional Health Concerns Assessment Noted Time A fall risk assessment has been complete d for the patient 2021 8:04 AM EDT A Body Mass Index follow-up plan has been documented for the patient 04/24/2021 11:32 AM EDT documented as of this encounter Care Teams Operator Automated Process Relationship Specialty Start Date End Date Jasmyne Casillas, SNAKER TRACTOR DRIVER - WEAVER WIRE LOOM [address] [place] [address] PCP - General 12/27/15 documented as of this encounter
--- OUTSIDE RECORDS SUMMARY | 2024-11-26 11:39 | XMS_ITS | Encounter Summary ---
Author Organization [facility] Address [address] [place] [address] Care Team Providers Care Template Storage Clerk Name Role Phone Jasmyne Casillas APRN - SHEAR GRINDER OPERATOR HELPER Primary Care Provider Encounter Details Date Type Department Care Team (Late st Contact Info) Description 06/05/2021 Transcribe Orders Latif Pre Access [address] [phone] Edmundo Miller MD [address] [phone] Breast lump (Primary Dx) Social History Tobacco [...] 9:20 AM EDT Office [place] [facility] [address] [place] [address] Jasmyne Casillas, SOCIAL WORK INSTRUCTOR - SHEAR GRINDER OPERATOR HELPER [address] [place] [address] Yearly AWV 01/04/2025 9:45 AM EDT Office Visit [facility] Part of [facility] [address] [place] [address] Tapan Ellsworth MD [address] [address] 6m f/u with download documented as of [...] documented as of this encounter Care Teams Template Storage Clerk Relationship Specialty Start Date End Date Jasmyne Casillas, SOCIAL WORK INSTRUCTOR - SHEAR GRINDER OPERATOR HELPER [address] [place] [address] PCP - General 12/27/15 documented as of this encounter
--- OUTSIDE RECORDS SUMMARY | 2024-11-26 11:39 | XMS_ITS | Encounter Summary ---
Author Organization [facility] Address [facility] [place] [address] Care Team Providers Care Pipeline Superintendent Name Role Phone Vahe Gottlieb MD Unavailable [phone] Storm Alcazar MD, Tuan Gilbert Unavailable [phone] Ky Adan MD Unavailable [phone] Chelle Marin APRN.DOCUMENT SCANNER Unavailable [phone] Babatunde Pizarro MD Unavailable Jasmyne Casillas [facility] Primary Care Provider [phone] Cameron Pappas MD Unavailable Source Comments In the event this information is protected by the Federal Confidentiality of Alcohol and Drug AbusePatient Records regulations: The Federal rules restrict any use of the information to criminally investigate or prosecute any alcohol or drug abuse patient.[facility] Encounter Details Date Type Department Care Team (Late st Contact Info) Description 06/22/2022 [place] [address] Provider, [facility] Actionable Imaging Result Notification Patient [...] slept in a jail (including now)? No 06/14/2022 Area Deprivation Index Answer Date Juarez rded National Score (1-100), lowe r number is lower risk 49 02/08/2022 State Score (1-10), lower number is lower risk N ot on file 02/08/2022 Data from: https://www.neighborhoodatlas.medicine.[facility].edu /. Last address used for calculation [...] AM EDT Appointment Radiology Pet CT [address] [facility] [place] [address] pet 02/22/2025 11:00 AM EDT Visit (SP) Office Hematology/Oncology [address] [place] [address] Herbert Sewnson MD [address] [facility] [address] [place] [address] Vernon / SURESH pt documented as of this encounter Visit Diagnoses Not on filedocumented in this encounter Care Teams Pipeline Superintendent Relationship Specialty Start Date End Date Jasmyne Casillas DOCUMENT SCANNER [address] [facility] [address] [place] [address] PCP - General Family Medicine 04/06/21 Vahe Gottlieb MD [address] [place] [address] Cardiology 10/14/13 Tuan Inman Jr., MD [address] [place] [address] Orthopedics 07/19/15 Ky Adan MD [address] [facility] [address] [place] [address] Physician Hematology/Oncology 07/06/20 Chelle Marin APRN.DOCUMENT SCANNER [address] [facility] [place] [address] Nurse Practitioner Hematology/Oncology 07/06/20 Babatunde Pizarro MD [address] [place] [address] Radiation Oncology 07/07/20 Cameron Pappas MD [address] [place] [phone] Cardiology 05/18/22 documented as of this encounter
--- OUTSIDE RECORDS SUMMARY | 2024-11-26 11:39 | XMS_ITS | Encounter Summary ---
Author Organization [facility] Address [address] [place] [address] Care Team Providers Care Maintenance Parts Technician Name Role Phone Sonja Jasmynestephen Mccann APRN - RESEARCH SUBJECT Primary Care Provider Reason for Referral * Imaging (Routine) - Closed Specialty Diagnoses / Procedures Referred By Contac t Referred To Contact Radiology Diagnoses Ductal carcinoma in situ of right breast Procedures GIAN DIGITAL DIAGNOSTIC W OR WO CAD BILATERAL Babatunde Pizarro MD [facility] [place] [address] Phone: tel: Referral ID Status Reason Start Date Expiration Date Visits Re quested Visits Authorized [id number] Closed 02/09/2021 02/09/2022 1 1 Encounter Details Date Type Department Care Team (Latest Contact Info) Description 02/09/2021 Transcribe Orders Latif Pre Access [address] [place] [address] Babatunde Pizarro MD [facility] [place] [address] Ductal carcinoma in situ of [...] Description 11/30/2024 9:20 AM EDT Office Visit [facility] [place] [address] [place] [phone] Jasmyne Casillas, RACEHORSE TRAINER - RESEARCH SUBJECT [address] [phone] Yearly AWV 01/04/2025 9:45 AM EDT Office Visit [facility] Part of [facility] [address] [place] [address] Tapan Ellsworth MD 2[address] [facility] [address] [place] [address] 6m f/u with download Scheduled Orders Name Type Priority Associated Diagnoses Orde r Schedule GIAN DIGITAL DIAGNOSTIC W OR WO CAD BILATERAL Imaging Routine Ductal carcinoma in situ of right breast Expected: 02/09/2021, Expires: 04/11/2022 documented as of this encounter Visit Diagnoses Diagnosis Ductal carcinoma in situ of right breast- Primary Carcinoma in situ of breast documented in this encounter Additional Health Concerns Assessment Noted Time A fall risk assessment has been complete d for the patient 04/11/2020 6:33 PM EDT A Body Mass Index follow-up plan has been documented for the patient 01/30/2021 3:00 PM EDT documented as of this encounter Care Teams Maintenance Parts Technician Relationship Specialty Start Date End Date Jasmyne Casillas [place] [address] PCP - General 12/27/15 documented as of this encounter
--- OUTSIDE RECORDS SUMMARY | 2024-11-26 11:39 | XMS_ITS | Encounter Summary ---
Author Organization Mik [facility] [employer]eli [facility] Address [address] [place] [address] Care Team Providers Care Secondary Set Up Man Name Role Phone Jasmyne Casillas APRN - TELEGRAPH AND TELETYPE OPERATOR Primary Care Provider Reason for Referral * Imaging (Routine) - Closed Specialty Diagnoses / Procedures Referred By Contac t Referred To Contact Radiology Diagnoses Osteoporosis screening Asymptomatic menopausal state Procedures DEXA BONE DENSITY AXIAL SKELETON Edmundo Miller MD [address] [place] [address] Phone: tel: Referral ID Status Reason Start Date Expiration Date Visits Re quested Visits Authorized [id number] Closed 05/17/2021 05/17/2022 1 1 Encounter Details Date Type Department Care Team (Late st Contact Info) Description 05/17/2021 Transcribe Orders Latif Pre Access [address] [place], [place] [phone] Edmundo Miller MD [address] [place] [address] Osteoporosis screening (Primary Dx); Asymptomatic menopausal state Social History Tobacco Use Types Packs/Day Years [...] Exposure Response Date Recorded In the last month, have you been in contact with someone who was confirmed or suspected to have Coronavirus / COVID-19? No / Unsure 05/01/2021 11:00 AM EDT documented as of this encounter Plan of Treatment Upcoming Encounters Date Type Department Care Team (Late st Contact Info) Description 11/30/2024 9:20 AM EDT Office Visit [facility] [address] [place] [address] Jasmyne Casillas, ENVIRONMENTAL CONSERVATION OFFICER - TELEGRAPH AND TELETYPE OPERATOR [address] [phone] Yearly AWV 01/04/2025 9:45 AM EDT Office Visit [facility] Part of [facility] [address] [place] [address] Tapan Ellsworth MD [address] [facility] [address] [place] [address] 6m f/u with download documented as of this encounter Results * DEXA BONE DENSITY AXIAL SKELETON (05/31/2021 9:54 AM EST) Anatomical Region Laterality Modality Head, C-spine, T-spine, L-spine, Chest Radiographic Imaging 05/31/2021 9:56 AM EST Impressions 05/31/2021 11:25 AM EST Increasing osteopenia in the hips. Significant loss of bone in the lumbar spine, while remaining within normal limits. The 10 year probability of major osteoporotic fracture is 24.1% and hip fracture risk is 8.4% with the included risk factor of chronic glucocorticoid therapy. This is elevated fracture risk. Narrative 05/31/2021 11:25 AM EST EXAM: DEXA BONE DENSITY AXIAL SKELETON HISTORY: Z13.820 81-year-old female, chronic glucocorticoids. COMPARISON: Prior studies most recent of 05/08/2019. TECHNIQUE: DXA scan lumbar spine and bilateral hips. Study obtained on Seatwave scanner 00510. FINDINGS: L1 through L4 bone mineral density 1.175 g/sq cm with a T-score of 0.0. This is normal, but shows a 9.3% decrease from the prior study. The bone mineral density of the hips is osteopenic at 0.794 g/sq cm with a T-score of -1.7. This shows a 4.9% decrease from 2019. Procedure Note Colten Whitehead Jr., MD - 05/31/2021 EXAM: DEXA BONE DENSITY AXIAL SKELETON HISTORY: Z13.820 81-year-old female, chronic glucocorticoids. COMPARISON: Prior studies most recent of 05/08/2019. TECHNIQUE: DXA scan lumbar spine and bilateral hips. Study obtained onMagnolia SolarF scanner [id number]. FINDINGS: L1 through L4 bone mineral density 1.175 g/sq cm with a T-scoreof 0.0. This is normal, but shows a 9.3% decrease from the prior study. The bone mineral density of the hips is osteopenic at 0.794 g/sq cm with a T-score of -1.7. This shows a 4.9% decrease from 2019. IMPRESSION: Increasing osteopenia in the hips. Significant loss of bone in the lumbar spine, while remaining within normal limits. The 10 year probability of major osteoporotic fracture is 24.1% and hip fracture risk is 8.4% with the included risk factor of chronicglucocorticoid therapy. This is elevated fracture risk. us Edmundo Miller MD IMG DEXA ORDERABLES Final Re sult documented in this encounter Visit Diagnoses Diagnosis Osteoporosis screening- Primary Special screening for osteoporosis Asymptomatic menopausal state Asymptomatic postmenopausal status (age-related) (natural) Osteoporosis screening Special screening for osteoporosis Asymptomatic menopausal state Asymptomatic postmenopausal status (age-related) (natural) documented in this encounter Additional Health Concerns Assessment Noted Time A fall risk assessment has been complete d for the patient 2021 8:04 AM EDT A Body Mass Index follow-up plan has been documented for the patient 04/24/2021 11:32 AM EDT documented as of this encounter Care Teams Secondary Set Up Man Relationship Specialty Start Date End Date Jasmyne Casillas, ENVIRONMENTAL CONSERVATION OFFICER - TELEGRAPH AND TELETYPE OPERATOR [address] [place] [address] PCP - General 12/27/15 documented as of this encounter
--- OUTSIDE RECORDS SUMMARY | 2024-11-26 11:39 | XMS_ITS | Encounter Summary ---
Author Organization [facility] Address [address] [place] [address] Care Team Providers Care Envelope Stuffer Name Role Phone Jasmyne Casillas APRN - BOX PULLER Primary Care Provider Encounter Details Date Type Department Care Team ([facility] st Contact Info) Description 04/07/2021 Abstract [facility] [place] [address] [place] [address] Ky Adan MD [address] [place] [address] [place] [address] Social History Tobacco Use Types [...] [facility] [address] [place] [address] Jasmyne Casillas, DAMPER MAKER - BOX PULLER [address] [place] [address] Yearly AWV 01/04/2025 9:45 AM EDT Office Visit [facility] Part of [facility] [address] [place] [address] Tapan Ellsworth MD [address] [facility] [address] [place] [address] 6m f/u with download documented as of this encounter Visit Diagnoses Not on filedocumented in this encounter Additional Health Concerns Assessment Noted Time A fall risk assessment has been complete d for the patient 04/11/2020 6:33 PM EDT A Body Mass Index follow-up plan has been documented for the patient 01/30/2021 3:00 PM EDT documented as of this encounter Care Teams Envelope Stuffer Relationship Specialty Start Date End Date Jasmyne Casillas, DAMPER MAKER - BOX PULLER [address] [place] [address] PCP - General 12/27/15 documented as of this encounter
--- OUTSIDE RECORDS SUMMARY | 2024-11-26 11:39 | XMS_ITS | Clinical Summary ---
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 Mild persistent asthma 07/14/2015 Primary osteoarthritis of right knee 05/19/2014 GERD (gastroesophageal reflux disease) 3 Insomnia 01/02/2013 Paroxysmal atrial fibrillation 12/01/2012 Carotid atherosclerosis 12/01/2012 Sleep apnea 08/20/2011 Osteoporosis 07/01/2007 Encounters Date Type Department Care Team Description 11/05/2024 10:30 AM EDT Office Visit [facility] [address] [place] [address] Dior Durand MD Seborrheic keratosis (Primary Dx); Lentigines; Angioma of skin; Capillary angioma; Seborrheic keratosis, inflamed 11/05/2024 Bamboo flowsheet [facility] [address] [place] [address] Dior Durand MD 11/05/2024 Travel from Last [...] [facility] [address] [place] [phone] Fred Frey DO [address] [place] [address] 11/09/2025 10:15 AM EDT Office Visit [facility] [address] [place] [address] Dior Durand MD [address] [place] [address] Health Maintenance Due Date Last [...] Result from Last 3 [place] [phone] [employer] [id number] Care Teams Property Supervisor Relationship Specialty Start Date End Date Soraida Sethi MD [address] [place] [address] PCP - General Family Medicine 01/15/23
--- OUTSIDE RECORDS SUMMARY | 2024-11-26 11:39 | XMS_ITS | Encounter Summary ---
Author Organization [facility] Address [address] [place] [address] Care Team Providers Care Hotshot Superintendent Name Role Phone Jasmyne Casillas APRN - BOILERS AND PRESSURE VESSELS INSPECTOR Primary Care Provider Encounter Details Date Type Department Care Team ([facility] st Contact Info) Description 03/31/2021 Abstract [facility] [place] [address] [place] [address] Mohamud Frey, DO [address] [address] Social History Tobacco Use Types Packs/Day Years [...] Description 11/30/2024 9:20 AM EDT Office Visit [facility] [address] [place] [address] Jasmyne Casillas, RN SUPPLEMENTAL - BOILERS AND PRESSURE VESSELS INSPECTOR [address] [place] [address] Yearly AWV 01/04/2025 9:45 AM EDT Office Visit [facility] of [facility] [address] [place] [address] Tapan Ellsworth MD 2222 [facility] [address] [place] [address] 6m f/u with download documented as of this encounter Visit Diagnoses Not on filedocumented in this encounter Additional Health Concerns Assessment Noted Time A fall risk assessment has been complete d for the patient 04/11/2020 6:33 PM EDT A Body Mass Index follow-up plan has been documented for the patient 01/30/2021 3:00 PM EDT documented as of this encounter Care Teams Hotshot Superintendent Relationship Specialty Start Date End Date Jasmyne Casillas, RN SUPPLEMENTAL - BOILERS AND PRESSURE VESSELS INSPECTOR [address] [place] [address] PCP - General 12/27/15 documented as of this encounter
--- OUTSIDE RECORDS SUMMARY | 2024-11-26 11:39 | XMS_ITS | Encounter Summary ---
Author Organization [facility] Address [address] [place] [address] Care Team Providers Care Auction Block Clerk Name Role Phone Jasmyne Casillas Ramy SHAH - FIVE PIECE EXPANSION MAKER HAND Primary Care Provider Reason for Referral * Imaging (Routine) - Closed Specialty Diagnoses / Procedures Referred By Contac t Referred To Contact Radiology Diagnoses Malignant neoplasm of lung, unspecified laterality, unspecified part of lung (HCC) Procedures MRI BRAIN W WO CONTRAST Ky Adan MD [address] [place] [address] [place] [address] Phone: tel: fax: Referral ID Status Reason Start Date Expiration Date Visits Re quested Visits Authorized [id number] Closed 05/01/2022 05/01/2023 1 1 Encounter Details Date Type Department Care Team (Latest Contact Info) Description 05/01/2022 Transcribe Orders Latif Pre Access [address] [place], [place] [phone] Ky Adan MD [address] [place] [address] [place] [address] Malignant neoplasm of lung, unspecified laterality, unspecified part of lung (HCC) (Primary Dx) Social History Tobacco Use Types Packs/Day Years Used Date Smoking Tobacco: Former Cigarettes 0.5 7 0 07/01/1963 - 07/01/1970 Smokeless Tobacco: Never Alcohol Use Standard Drinks/Week Comments No 0 (1 standard drink = 0.6 oz pur e alcohol) AUDIT-C Answer Date Recorded Q1: How often do you have a drink containing alcohol? Never 04/23/2022 Q2: How many drinks containi ng alcohol do you have on a typical day when you are drinking? Patient does not drink Q3: How often do you have si x or more drinks on one occasion? Never 04/23/2022 Overall Financial Resource Strain (CARDIA) Answe r Date Recorded How hard is it for you to pa y for the very basics like food, housing, medical care, and heating? Not hard at all 02/01/2022 PHQ-2 Answer Date Recorded PHQ-9 Total Score 0 04/23/2022 Exercise Vital Sign Answer Date Recorde d On average, how many days pe r week do you engage in moderate to strenuous exercise (like a brisk walk)? 7 days 04/23/2022 On average, how many minutes do you engage in exercise at this level? 30 min 04/23/2022 Hunger Vital Sign Answer Date Recorded Within the past 12 months, y ou worried that your food would run out before you got the money to buy more. Never true 02/02/20 22 Within the past 12 months, t he food you bought just didn't last and you didn't have money to get more. Never true 02/01/2022 PRAPARE - Transportation Answer Date Re corded [...] Description 11/30/2024 9:20 AM EDT Office Visit [facility] [place] [address] [place] [phone] Jasmyne Casillas, EXHAUST EMISSIONS AUTOMOTIVE TECHNICIAN - FIVE PIECE EXPANSION MAKER HAND [address] [place] [address] Yearly AWV 01/04/2025 9:45 AM EDT Office Visit [facility] Part of [facility] [address] [place], [place] [phone] Tapan Ellsworth MD 2[address] [facility] [address] [place], [place] [phone] 6m f/u with download documented as of this encounter Results * MRI BRAIN W WO CONTRAST (05/02/2022 2:03 PM EDT) Anatomical Region Laterality Modality Head Magnetic Resonan ce 05/02/2022 2:32 PM EDT Impressions 05/03/2022 1:41 PM EDT Brain MRI within limits of normal. No signs of acute restricted water diffusion focus, intracranial mass, hydrocephalus, or abnormal enhancement. Narrative 05/03/2022 1:41 PM EDT EXAM: MRI BRAIN W WO CONTRAST HISTORY: Malignant neoplasm of lung. Staging. COMPARISON: Imported images of prior brain MRI March 01, [address] head same date are reviewed. These were studies performed at [facility]. TECHNIQUE: Multisequence, multiplanar MRI studies of the brain were acquired including diffusion scans, standard T2-weighted images, with additional postcontrast enhanced images acquired after intravenous gadolinium contrast administration. FINDINGS: The intracranial midline markers are appropriately positioned and configured. Ventricles and cisterns appear to be normal size for age group. I am not identifying any restricted water diffusion focus. There are no signs of abnormal signal focus within the hemispheric eubanks matter or white matter, the brainstem, or posterior fossa structures. The postcontrast studies showed no signs of abnormal brain parenchymal, or extra-axial tissue enhancements. Procedure Note Derrick Muse DO - 05/03/2022 EXAM: MRI BRAIN W WO CONTRAST HISTORY: Malignant neoplasm of lung. Staging. COMPARISON: Imported images of prior brain MRI March 01, 2016 and CThead same date are reviewed. These were studies performed at [facility]. TECHNIQUE: Multisequence, multiplanar MRI studies of the brain wereacquired including diffusion scans, standard T2-weighted images, with additional postcontrast enhanced images acquired after intravenous gadoliniumcontrast administration. FINDINGS: The intracranial midline markers are appropriately positionedand configured. Ventricles and cisterns appear to be normal size for agegroup. I am not identifying any restricted water diffusion focus. There are nosigns of abnormal signal focus within the hemispheric eubanks matter or white matter,the brainstem, or posterior fossa structures. The postcontrast studies showedno signs of abnormal brain parenchymal, or extra-axial tissue enhancements. IMPRESSION: Brain MRI within limits of normal. No signs of acute restricted waterdiffusion focus, intracranial mass, hydrocephalus, or abnormal enhancement. us Ky Adan MD IMG MRI ORDERABLES Final Resul t documented in this encounter Visit Diagnoses Diagnosis Malignant neoplasm of lung, unspecified laterality, unspecified part of lung (HCC)- Primary Malignant neoplasm of lung, unspecified laterality, unspecified part of lung (HCC) documented in this encounter Additional Health Concerns Assessment Noted Time A fall risk assessment has been complete d for the patient 04/23/2022 8:11 AM EDT A Body Mass Index follow-up plan has been documented for the patient 03/19/2022 11:53 AM EDT documented as of this encounter Care Teams Auction Block Clerk Relationship Specialty Start Date End Date Jasmyne Casillas APRN - FIVE PIECE EXPANSION MAKER HAND [address] [place] [address] PCP - General 12/27/15 documented as of this encounter
--- OUTSIDE RECORDS SUMMARY | 2024-11-26 11:40 | XMS_ITS | Encounter Summary ---
Author Organization Mik [facility] Address [address] [place] [address] Care Team Providers Care Director Of Optimization Name Role Phone Jasmyne Casillas APRN - TOOL DESIGN ENGINEER Primary Care Provider Encounter Details Date Type Department Care Team (Latest Contact Info) Description 08/18/2020 Transcribe Orders Latif Pre Access [address] [place] [address] Babatunde Pizarro MD [address] [place] [address] [place] [address] Ductal carcinoma in situ of [...] or suspected to have Coronavirus / COVID-19? Unable to assess 08/19/2020 10:28 AM EST documented as of this encounter Plan of Treatment Upcoming Encounters Date Type Department Care Team ([facility] st Contact Info) Description 11/30/2024 9:20 AM EDT Office Visit [facility] [address] [place] [phone] Jasmyne Casillas, SUGAR GRINDER - TOOL DESIGN ENGINEER [address] [place] [address] Yearly AWV 01/04/2025 9:45 AM EDT Office Visit [facility] Part of [address] [address] Tapan Ellsworth MD 2[address] [facility] [address] [place] [address] 6m f/u with download documented as of this encounter Visit Diagnoses Diagnosis 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
--- OUTSIDE RECORDS SUMMARY | 2024-11-26 11:40 | XMS_ITS | Clinical Summary ---
Author Organization [facility] Address [address] [place] [address] Care Team Providers Care Outsole Paraffiner Name Role Phone Vahe Gottlieb MD Unavailable Storm Alcazar MD, Tuan Gilbert Unavailable [phone] Ky Adan MD Unavailable [phone] Chelle Marin APRN.AUTO ACCESSORIES INSTALLER Unavailable [phone] Babatunde Pizarro MD Unavailable Jasmyne Casillas AUTO ACCESSORIES INSTALLER Primary Care Provider [phone] Cameron Pappas MD Unavailable Allergies Active Allergy [...] breast 04/07/2021 Coronary artery disease invo lving [place] coronary artery without angina pectoris 07/28/2015 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 07/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 Mild persistent asthma without complication 07/01 Atherosclerosis of [place] co ronary artery of [place] heart without angina pectoris 07/14/2015 Atrial fibrillation 06/15/2014 Arthritis Hypercholesteremia Mitral valve problem Kidney stones Resolved Problems Problem Noted Date Diagnosed Date Resolved Date Mass of upper lobe of left lung 06/13/2022 06/22/2022 Encounters Date Type Department Care Team Description 09/21/2024 11:00 AM EDT Visit (SP) Office Hematology/Oncology [address] [place] [address] [place] [address] Ky Adan MD Malignant neoplasm of upper [...] place to sleep or slept in a [place] health care facility (including now)? No 06/14/2022 Area Deprivation Index Answer Date Juarez rded National Score (1-100), lowe r number is lower risk 39 11/13/2022 State Score (1-10), lower number is lower risk 2 11/13/2022 Data from: https://www.neighborhoodatlas.medicine.[facility].edu /. Last address used for calculation [...] AM EDT Appointment Radiology Pet CT [address] [place] [address] pet 02/22/2025 11:00 AM EDT Visit (SP) Office Hematology/Oncology [address] [place] [address] Herbert Swenson MD [address] [place] [address] [...] Sigmoidoscopy Discontinued Medical Devices Implanted Type Area Family Practice Physician Device Identifier Shelf Expiration Date Model / Serial / Lot Qon-Qr-F-Kind Implant - [id number] Implanted:Qty: 3 on 07/27/[address] [facility] Cement / Putty Right: Bone - Knee [employer] 01/28/2017 [id number] / / [id number] Description:Bone Cement Lrd-Xi-L-Kind Implant - [id number] Implanted:Qty: 1 on 07/27/[address] [facility] Implant Right: Bone - Knee [employer] 12/18/2024 [id number] / / [id number] Description:4mm Legion Offse t Trouble Shooting Mechanic Vug-On-Z-Kind Implant - [id number] Implanted:Qty: 1 on 07/27/[address] [facility] Implant Right: Bone - Knee [employer] 10/28/2024 [id number] / / [id number] Description:Legion Offset Co upler Mbv-Yb-P-Kind Implant - [id number] Implanted:Qty: 1 on 07/27/[address] [facility] Implant Right: Bone - Knee [employer] 09/28/2023 [id number] / / [id number] Description:Femoral Componen t Wedge Legion 4 5mm Femoral Screw Knee - [id number] Implanted:Qty: 1 on 07/27/[address] [facility] Implant Right: Bone - Knee [employer] 12/29/2023 [id number] / / [id number] Description:Femoral Screw Ysu-Jr-W-Kind Implant - [id number] Implanted:Qty: 1 on 07/27/[address] [facility] Implant Right: Bone - Knee [employer] 08/28/2024 [id number] / / [id number] Cmb-Eo-M-Kind Implant - [id number] Implanted:Qty: 1 on 07/27/[address] [facility] Implant Right: Bone - Knee [employer] 09/27/2024 [id number] / / [id number] Description:Screw on tibial wedge Hmt-Ut-V-Kind Implant - [id number] Implanted:Qty: 1 on 06/13/2022 by Jacques Amaral MD at [facility] Implant Left: Lung [employer] 11/19/2022 [id number] / / [id number] Stem Legion 12mm 120mm Femoral Press Fit Knee - [id number] Implanted:Qty: 1 on 07/27/[address] [facility] Joint - Knee Right: Bone - Knee [employer] 01/27/2025 [id number] / / [id number] Description:Stem Stem Legion 16mm 120mm Femoral Press Fit Knee - [id number] Implanted:Qty: 1 on 07/27/[address] [facility] Joint - Knee Right: Bone - Knee [employer] 09/27/2021 [id number] / / [id number] Description:Stem Insert Legion 1-2 Xlpe 15mm Tibial Posterior Stabilized High Flexion Knee - [id number] Implanted:Qty: 1 on 07/27/[address] [facility] Joint - Knee Right: Bone - Knee [employer] 02/27/2023 [id number] / / [id number] Description:Articular Insert Baseplate Legion 2 Tibial Revision Knee Right - [id number] Implanted:Qty: 1 on 07/27/[address] [facility] Joint - Knee Right: Bone - Knee [employer] 04/30/2024 [id number] / / [id number] Description:Tibial Baseplate Restrictor Anderson 18.5mm 18.5 Cement Sterile Latex Free Femur Hip - [id number] Implanted:Qty: 1 on 07/27/[address] [facility] Joint Right: Bone - Knee [employer] 04/14/2025 [id number] / / [id number] Description:Cement Restricto r Procedures Procedure Name Priority [...] - 8.0 g/dL 08/17/2024 11:48 AM EST [facility] Albumin 4.3 3.9 - 4.9 g/dL 08/17/2024 11:48 AM [facility] Calcium, Total 10.0 8.5 - 10.2 mg/dL 08/17/2024 11:48 AM [facility] Bilirubin, Total 0.5 0.2 - 1.3 mg/dL 08/17/2024 11:48 AM [facility] Alkaline Phosphatase 118 34 - 123 U/L 08/17/2024 11:48 AM [facility] AST 17 13 - 35 U/L 08/17/2024 11:48 AM [facility] ALT 7 7 - 38 U/L 08/17/2024 11:48 AM [facility] Glucose 127(H) 74 - 99 mg/dL 08/17/2024 11:48 AM [facility] Comment: The [place] Diabetes Association (ADA) provides guidance for cutoff [...] Standards of Medical Care in Diabetes 2016, Swedish Diabetes Association. Diabetes Care. 2016.39(Suppl 1). BUN 20 7 - 21 mg/dL 08/17/2024 11:48 AM [facility] Creatinine 1.15(H) 0.58 - 0.96 mg/dL 08/17/2024 11:48 AM [facility] Sodium 143 136 - 144 mmol/L 08/17/2024 11:48 AM [facility] Potassium 3.6(L) 3.7 - 5.1 mmol/L 08/17/2024 11:48 AM [facility] Chloride 104 98 - 107 mmol/L 08/17/2024 11:48 AM EST [facility] CO2 27 22 - 30 mmol/L 08/17/2024 11:48 AM EST [facility] Anion Gap 12 8 - 15 mmol/L 08/17/2024 11:48 AM EST [facility] Estimated Glomerular Filtration Rate 47(L) >=60 mL/min/1. 73m 08/17/2024 11:48 AM EST [facility] Comment:Estimated Glomerular Filtration Rate [...] EST Ky Adan MD LABORATORY Final Result [facility] [address] [place] [address] from Last 3 Months or Most Recently Relevant to Health Maintenance Insurance MEDICARE RAILROAD MEDICARE MED[employer] PROTECT LILOLINUS [id number] Advance Directives Documents on File Type Date Recorded Patient Cyanide Pot Tender Expl anation Advance Directive(s) 06/14/2022 2:09 PM Advance Directive(s) 07/27/2015 6:39 AM * Full Code (Latest Code Status on File) Date Activated Date Inactivated Comments 06/13/2022 5:25 PM 06/24/2022 4:08 PM Question Answer Comments Full Code Order Discussed With: Patient Care Teams Outsole Paraffiner Relationship Specialty Start Date End Date Jasmyne Casillas CNP [address] [place] [address] PCP - General Family Medicine 04/06/21 Vahe Gottlieb MD [address] [place] [address] Cardiology 10/14/13 Tuan Inman Jr., MD [address] [place] [address] Orthopedics 07/19/15 Ky Adan MD [address] [place] [address] Physician Hematology/Oncology 07/06/20 Chelle Marin APRN.AUTO ACCESSORIES INSTALLER [address] [place] [address] Nurse Practitioner Hematology/Oncology 07/06/20 Babatunde Pizarro MD [address] [place] [address] Radiation Oncology 07/07/20 Cameron Pappas MD [address] [place], [place] [address] [address] Cardiology 05/18/22
--- OUTSIDE RECORDS SUMMARY | 2024-11-26 11:40 | XMS_ITS | Encounter Summary ---
Author Organization [facility] Address [address] [place] [address] Care Team Providers Care Insurance Adjuster Name Role Phone Jasmyne Casillas MD Primary Care Provider [phone] Encounter Details Date Type Department Care Team (Late st Contact Info) Description 11/19/2024 Telephone [place] [address] [place] [address] Malina Hurt MA Social History Tobacco Use Types Packs/Day Years Used Date Smoking Tobacco: Former Cigarettes 1972 Smokeless Tobacco: Never Alcohol Use Standard [...] Description 12/15/2024 2:45 PM EDT Office Visit [place] [address] [place] [address] Kendy Wang MD [address] [place] [address] [facility] [place] [address] documented as of this encounter Visit Diagnoses Not on filedocumented in this encounter Care Teams Insurance Adjuster Relationship Specialty Start Date End Date Jasmyne Casillas MD [address] [place], [place] [phone] PCP - General 05/15/22 documented as of this encounter
--- OUTSIDE RECORDS SUMMARY | 2024-11-26 11:40 | XMS_ITS | Encounter Summary ---
Author Organization [facility] Address [address] [place] [address] Care Team Providers Care Line Up Machine Operator Name Role Phone Jasmyne Casillas APRN - TICKET CHOPPER ASSEMBLER Primary Care Provider Encounter Details Date Type Department Care Team (Late st Contact Info) Description 01/17/2023 Transcribe Orders [facility] General Surgery [address] [place] [address] Zaheer Zuñiga DO [address] [facility] [address] [facility] [address] [place] [address] Social History Tobacco Use Types Packs/Day Years [...] Description 11/30/2024 9:20 AM EDT Office Visit [facility] [address] [place] [address] Jasmyne Casillas, DOMESTIC TECHNICIAN - TICKET CHOPPER ASSEMBLER [address] [place] [address] Yearly AWV 01/04/2025 9:45 AM EDT Office Visit [facility] Part of [facility] [address] [place] [address] Tapan Ellsworth MD [address] [facility] [address] [place] [address] 6m f/u with download documented as of this encounter Visit Diagnoses Not on filedocumented in this encounter Additional Health Concerns Assessment Noted Time A fall risk assessment has been complete d for the patient 04/23/2022 8:11 AM EDT A Body Mass Index follow-up plan has been documented for the patient 07/24/2022 11:38 AM EST documented as of this encounter Care Teams Line Up Machine Operator Relationship Specialty Start Date End Date Jasmyne Casillas APRN - TICKET CHOPPER ASSEMBLER [address] [place] [phone] PCP - General 12/27/15 documented as of this encounter
--- OUTSIDE RECORDS SUMMARY | 2024-11-26 11:40 | XMS_ITS | Encounter Summary ---
Author Organization [facility] Address [address] [place] [address] Care Team Providers Care Tankage Grinder Operator Name Role Phone Jasmyne Casillas APRN - WELFARE ANALYST Primary Care Provider Encounter Details Date Type Department Care Team (Late st Contact Info) Description 03/12/2024 Orders Only [facility] [address] [place] [address] [place] [address] Provider, MD José Miguel Social History Tobacco [...] place to sleep or slept in a intermediate (including now)? No 04/29/2023 Food Insecurity Answer [...] 11/30/2024 9:20 AM EDT Office Visit [facility] [address] [place] [address] Jasmyne Casillas, SENIOR CREDIT OFFICER - WELFARE ANALYST [address] [place] [phone] Yearly AWV 01/04/2025 9:45 AM EDT Office Visit [facility] Part of [address] [address] Tapan Ellsworth MD [address] [facility] [address] [place] [address] 6m f/u with download documented as of this encounter Procedures Procedure Name Priority Date/Time Associated Diagnosis Comments BASIC METABOLIC PANEL Routine 02/12/2024 9:03 AM EDT documented in this encounter Results * Basic Metabolic Panel (02/12/2024 9:03 AM EDT) Blood BLOOD SPECIMEN / Unknown us Historical Provider CHEMISTRY ORDERABLES Dinorah l [...] documented as of this encounter Care Teams Tankage Grinder Operator Relationship Specialty Start Date End Date Jasmyne Casillas APRN - WELFARE ANALYST [address] [place] [address] PCP - General 12/27/15 documented as of this encounter
--- OUTSIDE RECORDS SUMMARY | 2024-11-26 11:40 | XMS_ITS ---
Author Organization [facility] Address [facility] [place] [address] Care Team Providers Care Technician Biological Health Name Role Phone Vahe Gottlieb MD Unavailable [phone] Storm Alcazar MD, Tuan Gilbert Unavailable [phone] Ky Adan MD Unavailable [phone] Chelle Marin APRN.MAINTENANCE GROUNDSKEEPER Unavailable Babatunde Pizarro MD Unavailable Jasmyne Casillas MAINTENANCE GROUNDSKEEPER Primary Care Provider Cameron Pappas MD Unavailable Active Problems Problem [...] breast 04/07/2021 Coronary artery disease invo lving [place] coronary artery without angina pectoris 07/28/2015 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 Fred Frey Radiation Oncologist: Dr. 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 Prepared by: Chelle Marin APRN.MAINTENANCE GROUNDSKEEPER Delivered on: April 06, 2021 - This [...]
--- OUTSIDE RECORDS SUMMARY | 2024-11-26 11:40 | XMS_ITS | Encounter Summary ---
Author Organization [facility] Address [address] [email or web address] [address] Care Team Providers Care Safety Trainer Name Role Phone Sonja Jasmynestephen Mccann APRN - ASBESTOS HANDLER Primary Care Provider Reason for Referral * Other (Routine) - Closed Specialty Diagnoses / Procedures Referred By Contac t Referred To Contact Radiology Diagnoses Intraductal carcinoma in situ of right breast Procedures GINA CHRISSY DIGITAL DIAGNOSTIC BILATERAL Babatunde Pizarro MD [facility] [place] [address] Phone: tel: Referral ID Status Reason Start Date Expiration Date Visits Re quested Visits Authorized [id number] Closed 02/20/2022 02/20/2023 1 1 Encounter Details Date Type Department Care Team (Latest Contact Info) Description 02/20/2022 Transcribe Orders [facility] [address] [place] [address] Babatunde Pizarro MD [facility] [place] [address] Intraductal carcinoma in situ of right breast (Primary [...] Answer Date Recorded PHQ-9 Total Score 0 02/01/2022 Hunger Vital Sign Answer Date Recorded Within [...] Description 11/30/2024 9:20 AM EDT Office Visit [facility] [address] [place] [address] Jasmyne Casillas, SALES COMPENSATION ANALYST - ASBESTOS HANDLER [address] [phone] Yearly AWV 01/04/2025 9:45 AM EDT Office Visit [facility] Part of [facility] [address] [place] [address] Tapan [place] MD [address] [facility] [address] [place], [place] [id number] 6m f/u with download documented as of this encounter Results * GIAN CHRISSY DIGITAL DIAGNOSTIC BILATERAL (04/05/2022 10:44 AM EDT) Anatomical Region Laterality Modality Breast Bilateral Mammography 04/05/2022 10:4 4 AM EDT Impressions 04/05/2022 3:30 PM EDT BI-RADS 2 - Benign, no evidence of malignancy. Normal interval followup is recommended in 12 months. OVERALL ASSESSMENT- BENIGN A letter of notification will be sent to the patient regarding the results. Narrative 04/05/2022 3:30 PM EDT EXAM: US BREAST LIMITED RIGHT, [facility] CHRISSY DIGITAL DIAGNOSTIC BILATERAL HISTORY: D05.11 Lump right breast at the site of prior treated breast carcinoma inferior right breast 5 o'clock 5 cm from the nipple. COMPARISON: Right breast ultrasound of the same region 06/08/2021. Bilateral mammogram 06/08/2021, CT chest 04/04/2022. TECHNIQUE: Right breast ultrasound. Bilateral digital diagnostic mammogram with CAD. 2-D images with 3-D tomography. FINDINGS: At the site of operative change 5 o'clock right breast. Corresponding with the palpable abnormality there is a solid 1.9 x 1.9 x 1.9 cm irregular hypoechoic mass with no internal color Doppler flow. This is minimally smaller in size compared to the ultrasound of 06/08/2021 at which time a considerable amount of fluid was contained within the structure. There is no internal color Doppler flow. There is some posterior side lobe shadowing and shadowing from surgical clips. The axilla was normal on ultrasound. The breasts otherwise show heterogeneously dense fibroglandular tissue which could obscure small masses. Scattered benign calcifications. Left breast negative. Procedure Note Colten Whitehead Jr., MD - 04/11/2022 EXAM: US BREAST LIMITED RIGHT, [facility] CHRISSY DIGITAL DIAGNOSTIC BILATERAL HISTORY: D05.11 Lump right breast at the site of prior treated breastcarcinoma inferior right breast 5 o'clock 5 cm from the nipple. COMPARISON: Right breast ultrasound of the same region 06/08/2021.Bilateral mammogram 06/08/2021, CT chest 04/04/2022. TECHNIQUE: Right breast ultrasound. Bilateral digital diagnostic mammogramwith CAD. 2-D images with 3-D tomography. FINDINGS: At the site of operative change 5 o'clock right breast.Corresponding with the palpable abnormality there is a solid 1.9 x 1.9 x 1.9 cmirregular hypoechoic mass with no internal color Doppler flow. This is minimallysmaller in size compared to the ultrasound of 06/08/2021 at which time aconsiderable amount of fluid was contained within the structure. There is no internalcolor Doppler flow. There is some posterior side lobe shadowing and shadowingfrom surgical clips. The axilla was normal on ultrasound. The breasts otherwise show heterogeneously dense fibroglandular tissuewhich could obscure small masses. Scattered benign calcifications. Left breast negative. IMPRESSION: BI-RADS 2 - Benign, no evidence of malignancy. Normal interval followup is recommended in 12 months. OVERALL ASSESSMENT- BENIGN A letter of notification will be sent to the patient regarding theresults. Babatunde Pizarro MD IMG MAMMOGRAPHY ORDERABLES Edite d Result - Final documented in this encounter Visit Diagnoses Diagnosis Intraductal carcinoma in situ of right breast- Primary Carcinoma in situ of breast Intraductal carcinoma in situ of right breast Carcinoma in situ of breast documented in this encounter Additional Health Concerns Assessment Noted Time A fall risk assessment has been complete d for the patient 2021 8:04 AM EDT A Body Mass Index follow-up plan has been documented for the patient 04/24/2021 11:32 AM EDT documented as of this encounter Care Teams Safety Trainer Relationship Specialty Start Date End Date Jasmyne Casillas APRN - [place] [address] [place] [address] PCP - General 12/27/15 documented as of this encounter
--- OUTSIDE RECORDS SUMMARY | 2024-11-26 11:40 | XMS_ITS | Encounter Summary ---
Author Organization [facility] Address [address] [place] [address] Care Team Providers Care Communications Tech Name Role Phone KarinaEleazar Ajay GONZALEZ Primary Care Provider [phone] Vahe Gottlieb MD Unavailable [phone] Alberto Salamanca Unavailable Storm Alcazar MD, Tuan Gilbert Unavailable [phone] Ky Adan MD Unavailable [phone] Chelle Marin APRN.[facility] Unavailable [phone] Jennifer Welch RN Unavailable [phone] Babatunde Pizarro MD Unavailable Jasmyne Casillas [facility] Primary Care Provider [phone] Cameron Pappas MD Unavailable Source Comments In the event this information is protected by the Federal Confidentiality of Alcohol and Drug AbusePatient Records regulations: The Federal rules restrict any use of the information to criminally investigate or prosecute any alcohol or drug abuse patient.[facility] Encounter Details Date Type Department Care Team (Late st Contact Info) Description 06/23/2015 Patient Msg Medical Records [address] [place] [address] Provider, Masha Your [facility]rella Medical Procedure Social [...] 10:00 AM EDT Appointment Radiology Pet CT [address] [place] [address] [place] [address] pet 02/22/2025 11:00 AM EDT Visit (SP) Office Hematology/Oncology [address] [place] [address] [place] [address] Herbert Swenson MD [address] [place] [address] [place] [address] [address] Vernon / SURESH pt documented as of this encounter Visit Diagnoses Not on filedocumented in this encounter Additional Health Concerns Infection Onset Date Last Indicated Resolved Time COVID-19 Rule-Out 06/13/2022 06/13/2022 06/13/2022 2:33 PM EST documented as of this encounter Care Teams Communications Tech Relationship Specialty Start Date End Date Karina Eleazar DO Ajay [address] [place] [address] PCP - General Family Medicine 06/09/13 04/05/21 Jasmyne Casillas CNP [address] [place] [address] [place] [address] PCP - General Family Medicine 04/06/21 Vahe Gottlieb MD [address] [facility] [address] Cardiology 10/14/13 Alberto Salamanca [address] [facility] [address] Primary Staff Physician Cardiology 09/29/14 6 Tuan Inman Jr., MD [address] [place] [address] Orthopedics 07/19/15 Ky Adan MD [address] [place] [address] [place] [address] Physician Hematology/Oncology 07/06/20 Chelle Marin APRN.STAFF NUCLEAR WEAPONS OFFICER [address] [place] [address] Nurse Practitioner Hematology/Oncology 07/06/20 Jennifer [place], RN [address] [place] [address] Specialty Commodity Analyst Hematology/Oncology 07/06/20 11/01/20 Babatunde Pizarro MD [address] [place] [address] Radiation Oncology 07/07/20 Cameron Pappas MD [address] [place] [address] Cardiology 05/18/22 documented as of this encounter
--- OUTSIDE RECORDS SUMMARY | 2024-11-26 11:40 | XMS_ITS | Encounter Summary ---
Author Organization [facility] Address [address] [place] [address] Care Team Providers Care Software Engineer Sales Name Role Phone Jasmyne Casillas APRN - SURGICAL SUPPLIES STERILIZER Primary Care Provider Encounter Details Date Type Department Care Team (Latest Contact Info) Description 02/20/2022 Transcribe Orders Latif Pre Access [address] [place] [address] Babatunde Pizarro MD [address] [place] [address] [place] [address] Intraductal carcinoma in situ of [...] Description 11/30/2024 9:20 AM EDT Office Visit [facility] [address] [place] [address] Jasmyne Casillas, EDUCATION SITE MANAGER - SURGICAL SUPPLIES STERILIZER [address] [place] [address] Yearly AWV 01/04/2025 9:45 AM EDT Office Visit [facility] Part of [facility] [address] [place] [address] Tapan Ellsworth MD [address] [facility] [address] [place], [place] [id number] 6m f/u with download documented as of this encounter Visit Diagnoses Diagnosis Intraductal carcinoma [...] documented as of this encounter Care Teams Software Engineer Sales Relationship Specialty Start Date End Date Jasmyne Casillas, EDUCATION SITE MANAGER - SURGICAL SUPPLIES STERILIZER [address] [place] [address] PCP - General 12/27/15 documented as of this encounter
--- OUTSIDE RECORDS SUMMARY | 2024-11-26 11:40 | XMS_ITS | Clinical Summary ---
Author Organization [facility] Address [id number] [address] [place] [address] Care Team Providers Care Alligator Hunter Name Role Phone Unavailable Primary Care Provider [...]
--- OUTSIDE RECORDS SUMMARY | 2024-11-26 11:40 | XMS_ITS | Encounter Summary ---
Author Organization [facility] Address [address] [place] [address] Care Team Providers Care Airport Location Manager Name Role Phone Jasmyne Casillas MD Primary Care Provider [phone] Encounter Details Date Type Department Care Team (Late st Contact Info) Description 11/19/2024 Orders Only [address] [address] Malina Hurt MA Coronary artery disease due to lipid rich plaque Social History Tobacco Use Types Packs/Day Years [...] Description 12/15/2024 2:45 PM EDT Office Visit [place] [address] [place] [address] Kendy Wang MD [address] [facility] [address] [facility] [place] [address] documented as of this encounter Procedures Procedure Name Priority Date/Time Associated Diagnosis Comments CBC Routine 11/19/2024 3:53 PM EDT B-TYPE NATRIURETIC PEPTIDE Routine 11/19/2024 3:53 PM EDT COMPREHENSIVE METABOLIC PANEL Routine 11/19/2024 3:53 PM EDT documented in this encounter Results * Comprehensive metabolic panel (11/19/2024 3:53 PM EDT) Blood Venous blood specimen / Unknown Kendy Wang MD LAB BLOOD ORDERABLES * B-type natriuretic peptide (11/19/2024 3:53 PM EDT) Blood Venous blood specimen / Unknown Kendy Wang MD LAB BLOOD ORDERABLES * CBC (11/19/2024 3:53 PM EDT) Blood Venous blood specimen / Unknown Kendy Wang MD LAB BLOOD ORDERABLES documented in this encounter Visit Diagnoses Diagnosis Coronary artery disease due to lipid rich plaque documented in this encounter Care Teams Airport Location Manager Relationship Specialty Start Date End Date Jasmyne Casillas MD [address] [place] [address] PCP - General 05/15/22 documented as of this encounter
--- OUTSIDE RECORDS SUMMARY | 2024-11-26 11:40 | XMS_ITS | Encounter Summary ---
Author Organization [facility] Address [address] [place] [address] Care Team Providers Care Heel Seater Name Role Phone Jasmyne Casillas MD Primary Care Provider [phone] Encounter Details Date Type Department Care Team (Late st Contact Info) Description 11/20/2024 Telephone [place] [address] [place] [address] Malina Hurt MA Social History [...] Description 12/15/2024 2:45 PM EDT Office Visit [place] [address] [place] [address] Kendy Wang MD [address] [facility] [place] [address] documented as of this encounter Visit Diagnoses Not on filedocumented in this encounter Care Teams Heel Seater Relationship Specialty Start Date End Date Jasmyne Casillas MD [address] [place], [place] [id number] PCP - General 05/15/22 documented as of this encounter
--- OUTSIDE RECORDS SUMMARY | 2024-11-26 11:40 | XMS_ITS | Encounter Summary ---
Author Organization [facility] Address [address] [place] [address] Care Team Providers Care Supervisor Bottle House Cleaners Name Role Phone Sonja Jasmynestephen Mccann APRN - TACTICAL DECEPTION PLANS OFFICER Primary Care Provider Reason for Referral * Other (Routine) - Closed Specialty Diagnoses / Procedures Referred By Contac t Referred To Contact Radiology Diagnoses Ductal carcinoma in situ of right breast Procedures GIAN CHRISSY DIGITAL DIAGNOSTIC BILATERAL Ky Adan MD [facility] [place] [address] Phone: tel: fax: Referral ID Status Reason Start Date Expiration Date Visits Re quested Visits Authorized [id number] Closed 01/18/2023 01/18/2024 1 1 Encounter Details Date Type Department Care Team (Latest Contact Info) Description 01/18/2023 Transcribe Orders Latif Pre Access [address] [place], [place] [id number] Ky Adan MD [facility] [address] [facility] [place] [address] Ductal carcinoma in situ of [...] Description 11/30/2024 9:20 AM EDT Office Visit [address] [address] Jasmyne Casillas, PICKER/PULLER - TACTICAL DECEPTION PLANS OFFICER [address] [place] [address] Yearly AWV 01/04/2025 9:45 AM EDT Office Visit [facility] Part of [address] [address] Tapan Ellsworth MD [address] [facility] [address] [place] [address] 6m f/u with download documented as of this encounter Results * [facility] CHRISSY DIGITAL DIAGNOSTIC BILATERAL (04/30/2023 12:10 PM EDT) Anatomical Region Laterality Modality Breast Bilateral Mammography 04/30/2023 12:2 6 PM EDT Impressions 04/30/2023 4:32 PM EDT BIRADS: 2 - Benign, no evidence of malignancy. Normal interval followup is recommended in 12 months. OVERALL ASSESSMENT- BENIGN A letter of notification will be sent to the patient regarding the results. No ultrasound needed Narrative 04/30/2023 4:32 PM EDT EXAM: GIAN CHRISSY DIGITAL DIAGNOSTIC BILATERAL HISTORY: Ductal carcinoma in situ of right breast COMPARISON: Prior studies most recent of 04/05/2022 TECHNIQUE: 2-D images with 3-D tomography. CAD. FINDINGS: Heterogeneously dense fibroglandular tissue bilaterally which could obscure small masses. Postoperative changes right breast without evidence of recurrent malignancy. Scattered benign calcifications bilaterally. us Ky Adan MD IM MAMMOGRAPHY ORDERABLES Fin al Result documented in [...] documented as of this encounter Care Teams Supervisor Bottle House Cleaners Relationship Specialty Start Date End Date Jasmyne Casillas APRN - TACTICAL [place]ION [place] [address] PCP - General 12/27/15 documented as of this encounter
--- OUTSIDE RECORDS SUMMARY | 2024-11-26 11:40 | XMS_ITS | Clinical Summary ---
Author Organization [facility] Address [address] [place] [address] Phone Care Team Providers Care Hydroelectric Station Operator Name Role Phone Unavailable Primary Care Provider [...]
--- OUTSIDE RECORDS SUMMARY | 2024-11-26 11:40 | XMS_ITS | Encounter Summary ---
Author Organization [facility] Address [address] [place] [address] Care Team Providers Care Light Bulb Tester Name Role Phone Sonja Jasmynestephen Mccann APRN - PRODUCT OPERATIONS ASSOCIATE Primary Care Provider Encounter Details Date Type Department Care Team (Latest Contact Info) Description 04/09/2023 Transcribe Orders Latif Pre Access [address] [place] [address] Ky Adan MD [address] [place] [address] [place] [address] Ductal carcinoma in situ of right breast (Primary Dx); Abnormal mammogram Social History Tobacco Use Types Packs/Day Years [...] Description 11/30/2024 9:20 AM EDT Office Visit [facility] [address] [place] [address] Jasmyne Casillas, MINING TECHNICIAN - PRODUCT OPERATIONS ASSOCIATE [address] [place] [address] Yearly AWV 01/04/2025 9:45 AM EDT Office Visit [facility] Part of [facility] [address] [place] [address] Tapan Ellsworth MD [address] [facility] [address] [place] [address] 6m f/u with download documented as of this encounter Visit Diagnoses Diagnosis Ductal carcinoma in situ of right breast- Primary Carcinoma in situ of breast Abnormal mammogram Abnormal mammogram, unspecified documented in this encounter Additional Health Concerns Assessment Noted Time A fall risk assessment has been complete d for the patient 04/23/2022 8:11 AM EDT A Body Mass Index follow-up plan has been documented for the patient 07/24/2022 11:38 AM EST documented as of this encounter Care Teams Light Bulb Tester Relationship Specialty Start Date End Date Jasmyne Casillas APRN - PRODUCT OPERATIONS ASSOCIATE [address] [place] [id number] PCP - General 12/27/15 documented as of this encounter
--- OUTSIDE RECORDS SUMMARY | 2024-11-26 11:40 | XMS_ITS | Encounter Summary ---
Author Organization [facility] Address [address] [place] [address] Care Team Providers Care Paid Search Manager Name Role Phone Jasmyne Casillas MD Primary Care Provider [phone] Encounter Details Date Type Department Care Team (Late st Contact Info) Description 11/19/2024 Orders Only [facility] [address] [address] Kendy Wang MD [address] [facility] [place] [address] Social History Tobacco Use Types Packs/Day Years Used Date Smoking Tobacco: Former Cigarettes 1 6 1972 Smokeless Tobacco: Never Alcohol Use Standard [...] Description 12/15/2024 2:45 PM EDT Office Visit [facility] [address] [place] [address] Kendy Wang MD [address] [facility] [place] [address] documented as of this encounter Visit Diagnoses Not on filedocumented in this encounter Care Teams Paid Search Manager Relationship Specialty Start Date End Date Jasmyne Casillas MD [address] [place], [place] [phone] PCP - General 05/15/22 documented as of this encounter
--- OUTSIDE RECORDS SUMMARY | 2024-11-26 11:40 | XMS_ITS | Encounter Summary ---
Author Organization [facility] 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 Procedures GIAN CHRISSY DIGITAL DIAGNOSTIC UNILATERAL RIGHT Mohamud Frey DO [address] [address] Phone: tel: fax: Referral ID Status Reason Start Date Expiration Date Visits Re quested Visits Authorized [id number] Closed 11/13/2021 11/13/2022 1 1 Encounter Details Date Type Department Care Team (Latest Contact Info) Description 11/13/2021 Transcribe Orders Latif Pre Access [address] [place] [id number] Mohamud Frey DO [address] [address] Intraductal carcinoma in situ of right breast (Primary Dx); Seroma of breast Social History Tobacco Use Types Packs/Day [...] suspected to have Coronavirus/COVID-19? No / Unsure 10/30/2021 10:23 AM EDT documented as of this encounter Plan of Treatment Upcoming Encounters Date Type Department Care Team (Late st Contact Info) Description 11/30/2024 9:20 AM EDT Office Visit [facility] [address] [place] [address] Jasmyne Casillas, SWIMMING COACH [place] [address] Yearly AWV 01/04/2025 9:45 AM EDT Office Visit [facility] Part of [address] [address] Tapan Ellsworth MD [address] [facility] [address] [place] [address] 6m f/u with download Scheduled Orders Name Type Priority Associated Diagnoses Orde r Schedule GIAN CHRISSY DIGITAL DIAGNOSTIC UNILATERAL RIGHT Imaging Routine 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 Expected: 11/13/2021, Expires: 11/13/2022 documented as of this encounter Visit Diagnoses Diagnosis Intraductal carcinoma in situ of right breast- Primary Carcinoma in situ of breast Seroma of breast documented in this encounter Additional Health Concerns Assessment Noted Time A fall risk assessment has been complete d for the patient 2021 8:04 AM EDT A Body Mass Index follow-up plan has been documented for the patient 04/24/2021 11:32 AM EDT documented as of this encounter Care Teams Clinical Laboratory Technician Relationship Specialty Start Date End Date Jasmyne Casillas APRN - PRODUCTION PROOFREADER [address] [place] [id number] PCP - General 12/27/15 documented as of this encounter
[2024-11-26 12:14] LABS: Anion Gap 14.2; BUN Creatinine Ratio 32.5; Calcium 9.4 mg/dL (8.5-10.1); Chloride 105 mmol/L (98-107); Estimated GFR (African America 51 (>=60 mL/min/1.73m^2); Estimated GFR (Non-African Ame 42 (>=60 mL/min/1.73m^2); Glucose 113 mg/dL (74-106); Potassium 4.2 mmol/L (3.5-5.1); Sodium 146 mmol/L (136-145)
== END 2024-11-26 11:35 | disposition home or self-care (01) ==
PROVIDERS: Visit Provider Internal Medicine Interventional Cardiology
DX: I25.10 Atherosclerotic heart disease of native coronary artery without angina pectoris (principal); R06.02 Shortness of breath
CPT/HCPCS: 36415; 80048

== ENCOUNTER 2025-04-07 10:39 | Outpatient (OUT) | payer MEDICARE, OTHER, SELFPAY ==
--- OUTSIDE RECORDS SUMMARY | 2025-04-07 10:52 | XMS_ITS | CCD ---
Author Organization [facility] Care Team Providers Care Histology Technician Name Role Phone Jasmyne Casillas Primary Care Provider [phone] Kosta Keene Attending Provider Jasmyne Casillas Primary Care Provider [phone] Sridevi Arguelles Attending Provider [phone] Sonja SWING FRAME GRINDER OPERATORJasmyne Manzanares CNP Primary Care Provider SHARLA DE OLIVEIRA Admitting Unavailable SHARLA DE OLIVEIRA Attending Unavailable JASMYNE CASILLAS Primary Care Unavailable JASMYNE CASILLAS Referring Unavailable UNKNOWN, PHYSICIAN Primary Care Unavailable AL-HOURSULY COELLO Admitting Unavailable AL-SULY LEIJA Attending Unavailable SELF, REFERRED Referring Unavailable Jasmyne Danielle APRN, CNP Primary Care Provider aJsmyne Danielle APRN, CNP Primary Care Provider JASMYNE CASILLAS Primary Care Physician Taz Pierre Unavailable Jasmyne Danielle APRN, CNP Primary Care Provider Vahe Gottlieb Unavailable [phone] Storm Alcazar MD, Tuan Gilbert Unavailable Loco PAPPAS, Bryanna Bach Unavailable Chelle Marin APRN.CNP Unavailable Juarez PAPPAS, Babatunde Unavailable Jasmyne Casillas CNP Primary Care Provider Linda Lobo Unavailable Jasmnye Danielle APRN, CNP Primary Care Provider MIGUEL, SHANIQUA Referring Unavailable JASMYNE CASILLAS Primary Care Unavailable Storm Alcazar MD, Tuan Gilbert Unavailable Sonja LAMBSKIN TRIMMERJasmyne Primary Care Provider Storm Alcazar MD, Tuan Gilbert Unavailable Vahe Gottlieb Unavailable Storm Alcazar MD, Tuan Gilbert Unavailable Bryanna Adan MD Unavailable [phone] Tomas SWING FRAME GRINDER OPERATOR.LAMBSKIN TRIMMER, Chelle Unavailable Juarez PAPPAS, Babatunde Unavailable Sonja LAMBSKIN TRIMMERJsamyne Primary Care Provider Sharla De Oliveira MD Unavailable JASMYNE CASILLAS Primary Care Unavailable WUDEL, MITZI Referring Unavailable JASMYNE CASILLAS Primary Care Unavailable WUCHELSEY, MITZI Referring Unavailable JASMYNE CASILLAS Primary Care Unavailable WUDEL MITZI Attending Unavailable JASMYNE CASILLAS Primary Care Unavailable WUDEL, IMTZI Referring Unavailable JASMYNE CASILLAS Primary Care Unavailable WUDEL, MITZI Admitting Unavailable JOEY, MITZI Attending Unavailable JASMYNE CASILLAS Primary Care Unavailable Delta SWING FRAME GRINDER OPERATOR - Jasmyne ACEVEDO Primary Care Provider ALYSSA Casillas Jasmyne Mccann Primary Care Provider MD Sridevi Arguelles Attending Provider MISC, DR MELGOZA Admitting Unavailable MISC, DR MELGOZA Attending Unavailable MISC, DR MELGOZA Primary Care Unavailable MISC, DR MELGOZA Consulting Unavailable ELTAHAWY, DR HARE Admitting Unavailable ELTAHAWY, DR HARE Attending Unavailable MISC, DR MELGOZA Primary Care Unavailable ELTAHAWY, DR HARE Consulting Unavailable REQUEST, DR WORRELL LISTED Consulting Unavaila ble MISC, DR MELGOZA Admitting Unavailable MISC, DR MELGOZA Attending Unavailable MISC, DR MELGOZA Primary Care Unavailable MISC, DR MELGOZA Consulting Unavailable SHARLA DE OLIVEIRA Admitting Unavailable SHARLA DE OLIVEIRA Attending Unavailable MISC, DR MELGOZA Primary Care Unavailable MARKO, DR ALISON Bach Consulting Unavailable SHARLA DE OLIVEIRA Consulting Unavailable Sridevi Tovar II Unavailable MIGUEL, SHANIQUA Referring Unavailable JASMYNE CASILLAS Primary Care Unavailable JASMYNE CASILLAS Primary Care Unavailable MIGUEL, SHANIQUA Referring Unavailable Shaniqua Ellsworth MD Referring Unavailaz Rose MD, Morales Barton Attending Unavailable Sonja SWING FRAME GRINDER OPERATOR Jasmyne Primary Care Provider MD Sridevi Tovar II Attending Provider MD Taz Pierre Attending Provider Delta [facility] Jasmyne Primary Care Provider MD Taz Pierre Attending Provider Eugene Mims Unavailable Jossie PAPPAS, Soraida Gomez Primary Care Provider Sonja Jasmyne ACEVEDO Primary Care Provider [phone] Sonja [facility] Jasmyne Primary Care Provider MD Eugene Mims Attending Provider Vahe Gottlieb MD Unavailable Delta [facility] Jasmyne Primary Care Provider MD Eugene Mims Attending Provider Sonja [facility] Jasmyne Primary Care Provider MD Eugene Mims Attending Provider Sonja SWING FRAME GRINDER OPERATOR Jasmyne ACEVEDO Primary Care Provider Sonja [facility] Jasmyne Primary Care Provider MD Eugene Mims Attending Provider Delta SWING FRAME GRINDER OPERATORJasmyne Primary Care Provider Eugene Mims MD Attending Provider Sridevi Tovar MD Attending Provider Domonique Taylor DO Attending Provider Sonja [facility] Primary Care Provider Angelita Duncan RN Other Provider Unavailable Keyona FERNANDEZ, Crarie Other Provider Unavailable Malissa Garcia RN Other Provider Unavailable Asya Cui RN Other Provider Unavailable Ada Hsu RN Other Provider Unavailable Jean Paul Chong DO Other Provider Rudolph PAPPAS, Samson Other Provider Zeus Gates DO Other Provider Jason Villanueva MD Other Provider Lilliam Stern MD Other Provider Giovani GONZALEZ, Roland Other Provider [phone] Redd PAPPAS, Dominic Other Provider Unavailable Melinda SHAH, Emily Other Provider Bennie PAPPAS, Agusto Other Provider Nick Hernández MD Other Provider Jv Rankin MD Other Provider Alma Delia Hazel MD Other Provider Kristi GONZALEZ, Roland Other Provider Mercedes Palumbo MD Other Provider Fermin Paredes MD Other Provider Debbie DRESSING ROOM ATTENDANT-C, Manisha Rios Other Provider Ahmet Castillo APRN Other Provider Unavailable Jose Thacker MD Other Provider Beau Valentine MD Other Provider Darnell Schofield MD Other Provider Mesha Asencio MD Other Provider Unavailable Otoniel Benavides MD Other Provider Marnie Aguilar DO Other Provider Vasyl Lynn DO Other Provider Jacquie Aggarwal APRN Other Provider Bib Lynne DO Other Provider [phone] Braeden PAPPAS, Emelia Mccann Other Provider [phone] Chyna Gannon APRN Other Provider Mohamed SWING FRAME GRINDER OPERATOR, Melisa C Other Provider [phone] Saleem PAPPAS, Brian Other Provider Azra PAPPAS, Jefry Rios Other Provider Chapman DO, Louis T Other Provider Edwin DOAndreina Other Provider Kanwal PAPPAS, Mitchell Daniel Other Provider Cheikh PAPPAS, Dino Moore Other Provider Borisoashanti SWING FRAME GRINDER OPERATOR, Emy Other Provider David PAPPAS, Bernadette Other Provider Jim PAPPAS, Dieter Other Provider Lorene PAPPAS, Tuan Mahoney Other Provider [phone] Deisi PAPPAS, Dominic Soto Other Provider Alexa PAPPAS, Froylan Other Provider Emmanuel SHAH, Apple Vinson Other Provider Bolzan-Brissa SHAH, Nicomykel Other Provider Melissa FERNANDEZ, Chhaya Other Provider Unavailable Tuan Farrell MD Other Provider Martha Haas MD Other Provider Celina SHAH, Alysia Other Provider [phone] Zack Belcher DO Other Provider Herb Lara MD Other Provider Jv Rankin MD Other Provider Unavailable Tuan Farrell MDit Provider Tuan Farrell MD Attending Provider [phone] Manny Dupree MD Other Provider Jasmyne Casillas APRN Primary Care Provider Domonique Taylor DO Attending Provider Sridevi Tovar MD Attending Provider Perla FERNANDEZ, Angelita Other Provider Unavailable Keyona FERNANDEZ, Carrie Other Provider Unavailable Jose RN, Malissa Other Provider Unavailable Basilia RN, Asya Other Provider Unavailable Shadi RN, Ada Other Provider Unavailable Jean Paul Chong DO Other Provider [phone] Samson Galdamez MD Other Provider Zeus Gates DO Other Provider [phone] Rich PAPPAS, Jason Other Provider Lilliam Stern MD Other Provider Roland Matute DO Other Provider Redd PAPPAS, Dominic Other Provider Unavailable Emily Lawrence APRN Other Provider Bennie PAPPAS, Agusto Other Provider Betty PAPPAS, Nick Other Provider Chucho PAPPAS, Jv Other Provider Unavailable Alma Delia Hazel MD Other Provider Roland Berry DO Other Provider Linwood PAPPAS, Mercedes Other Provider Lena PAPPAS, Fermin Other Provider Debbie DRESSING ROOM ATTENDANT-C, Manisha Rios Other Provider Ahmet Castillo APRN Other Provider Unavailable Kedar PAPPAS, Jose Frost Other Provider Beau Valentine MD Other Provider Darnell Schofield MD Other Provider Mesha Asencio MD Other Provider Unavailable Otoniel Benavides MD Other Provider Marnie Aguilar DO Other Provider Vasyl Lynn DO Other Provider Jacquie Aggarwal APRN Other Provider Bib Lynne DO Other Provider Braeden PAPPAS, Emelia Mccann Other Provider Chyna Gannon APRN Other Provider Melisa Melissa APRN Other Provider [phone] Saleem PAPPAS, Brian Other Provider Jefry Oquendo MD Other Provider Chapman DO, Louis T Other Provider Edwin DO Hildaantoinette Other Provider Kanwal PAPPAS, Mitchell Daniel Other Provider Dino Salamanca MD Other Provider Veronica SHAH, Emy Other Provider David PAPPAS, Bernadette Other Provider Jim PAPPAS, Dieter Other Provider Lorene PAPPAS, Tuan Mahoney Other Provider Deisi PAPPAS, Dominic Soto Other Provider Froylan Argueta MD Other Provider Emmanuel SHAH, Apple Vinson Other Provider [phone] Mellissa Lewis APRN Other Provider Melissa FERNANDEZ, Chhaya Other Provider Unavailable Tuan Farrell MD Other Provider Martha Haas MD Other Provider Alysia Patrick APRN Other Provider Zack Belcher DO Other Provider [phone] Herb Lara MD Other Provider Bud PAPPAS, Tuan Mclaughlinit Provider Tuan Farrell MD Attending Provider Manny Dupree MD Other Provider Sonja SHAH, Jasmyne Mccann Primary Care Provider Saleem PAPPAS, Brian Other Provider Unavailable Veronica SHAH, Emy Other Provider Unavailable Jasmyne Casillas APRN Primary Care Provider Guy PAPPAS, Sridevi Mccann Attending Provider Sonja SHAH, Jasmyne M Primary Care Provider Perla RN, Angelita Other Provider Unavailable Keyona RN, Carrie Other Provider Unavailable Jose RN, Malissa Other Provider Unavailable Basilia RN, Asya Other Provider Unavailable Shadi RN, Ada Other Provider Unavailable Jean Paul Chong DO Other Provider Rudolph PAPPAS, Samson Other Provider Zeus Gates DO Other Provider Rich PAPPAS, Jason Other Provider Leena PAPPAS, Lilliam Other Provider Roland Matute DO Other Provider Redd PAPPAS, Dominic Other Provider Unavailable Melinda SHAH, Emily Other Provider Bennie PAPPAS, Agusto Other Provider Nick Hernández MD Other Provider Chucho PAPPAS, Jv Other Provider Unavailable Alma Delia Hazel MD Other Provider Roland Berry DO Other Provider Linwood PAPPAS, Mercedes Other Provider Fermin Paredes MD Other Provider Debbie DRESSING ROOM ATTENDANT-C, Manisha Rios Other Provider Jonathan SWING FRAME GRINDER OPERATOR, Ahmet Mccann Other Provider Unavailable Kedar PAPPAS, Jose Frost Other Provider Beau Valentine MD Other Provider Darnell Scohfield MD Other Provider Mesha Asencio MD Other Provider Unavailable Makayla PAPPAS, Otoniel Other Provider Marnie Aguilar DO Other Provider Leah DO, Vasyl R Other Provider Jasen SHAH, Jacquie Other Provider Maged DOBib Other Provider Braeden PAPPAS, Emelia Mccann Other Provider Chyna Gannon APRN Other Provider Colin SHAH, Melisa Ferrer Other Provider Saleem PAPPAS, Brian Other Provider Unavailable Azra PAPPAS, Jefry Rios Other Provider Chapman DO, Louis T Other Provider Edwin DO, Yaantoinette Other Provider Kanwal PAPPAS, Mitchell Daniel Other Provider Dino Salamanca MD Other Provider Veronica SHAH, Emy Other Provider Unavailable David PAPPAS, Bernadette Other Provider Jim PAPPAS, Dieter Other Provider Tuan Paulson MD Other Provider Deisi PAPPAS, Dominic Soto Other Provider Froylan Argueta MD Other Provider Apple Benitez APRN Other Provider Mellissa Lewis APRN Other Provider [phone] Melissa FERNANDEZ, Chhaya Other Provider Unavailable Guy PAPPAS, Sridevi Mccann Attending Provider Domonique Taylor DO Attending Provider Sonja SWING FRAME GRINDER OPERATOR - Jasmyne ACEVEDO Primary Care Provider JAMES POSADAS Referring Unavailable JASMYNE CASILLAS Primary Care Unavailable JASMYNE CASILLAS Referring Unavailable JASMYNE CASILLAS Primary Care Unavailable LYNN ELLSWORTHNIVAS Referring Unavailable JASMYNE CASILLAS Primary Care Unavailable BRYANNA ADAN Referring Unavailable JASMYNE CASILLAS Primary Care Unavailable MIGUEL, SHANIQUA Referring Unavailable JASMYNE CASILLAS Primary Care Unavailable JASMYNE CASILLAS Referring Unavailable JASMYNE CASILLAS Primary Care Unavailable Storm Alcazar MD, Tuan Gilbert Unavailable GEMA SALAS Attending Unavailable JASMYNE CASILLAS Primary Care Unavailable Loco PAPPAS, Bryanna Unavailable Vahe Gottlieb MD Unavailable SHARLA DE OLIVEIRA Attending Unavailable KENDY FERRARI Attending Unavailable KENDY FERRARI Attending Unavailable SHARLA DE OLIVEIRA Attending Unavailable SHARLA DE OLIVEIRA Attending Unavailable Sonja SWING FRAME GRINDER OPERATORJasmyne Aparicio Primary Care Provider Katie Cook PA-C Attending Provider [phone] Eugene Mims Attending Unavailable Jasmyne Casillas Primary Care Unavailable Eugene Mims Admitting Unavailable Ly, Domonique Gomez Admitting Unavailable Ly, Domonique Gomez Attending Unavailable aJsmyne Casillas Primary Care Unavailable Converse II, Sridevi Ramy Admitting Unavailabl e Converse II, Sridevi Mccann Attending Unavailabl e Jasmyne Casillas Primary Care Unavailable Guy II, Sridevi Mccann Attending Unavailabl e Converse II, Sridevi Mccann Admitting Unavailabl e Jasmyne Casillas Primary Care Unavailable Ly, Domonique Gomez Attending Unavailable Ly, Domonique Gomez Admitting Unavailable Jasmyne Casillas Primary Care Unavailable Converse II, Sridevi M Admitting Unavailabl e Angelita Duncan Consulting Unavailable Converse II, Sridevi Mccann Attending Unavailabl e Jasmyne Casillas Primary Care Unavailable Carrie Rand Consulting Unavailable Malissa Garcia Consulting Unavailable Asya Cui Consulting Unavailable Ada Hsu Consulting Unavailable Jean Paul Chong Consulting Unavailable Samson Galdamez Consulting Unavailable Zeus Gates Consulting Unavailabl e Jason Villanueva Consulting Unavailable Lilliam Stern Consulting Unavailable Roland Matute Consulting Unavailable Dominic Rainey Consulting Unavailable Emily Lawrence Consulting Unavailabl e Agusto Avery Consulting Unavailable Nick Hernández Consulting Unavailable Jv Rankin Consulting Unavailable Alma Delia Hazel Consulting Unavailable Roland Berry Consulting Unavailable Mercedes Palumbo Consulting Unavailable Fermin Paredes Consulting Unavailable Manisha Lewis Consulting Unavailable Ahmet Castillo Consulting Unavailable Doamekpor, Jose E Consulting Unavailab Beau Small Consulting Unavailable Darnell Schofield Consulting Unavailable Mesha Asencio Consulting Unavailable Otoniel Benavides Consulting Unavailable Marnie Aguilar Consulting Unavailable Vasyl Lynn Consulting Unavailable Jacquie Aggarwal Consulting Unavailable Bib Lynne Consulting Unavailable DaromaEmelia bach Consulting Unavailable Chyna Gannon Consulting Unavailable Melisa Melissa Consulting Unavailable Brian Monge Consulting Unavailable Jefry Oquendo Consulting Unavailable Louis Chapman Consulting Unavailable Andreina Pineda Consulting Unavailable Mitchell Schofield Consulting Unavailable Dino Salamanca Consulting Unava michaelable Emy Martin Consulting Unavailable Bernadette Hernandez Consulting Unavailable Dieter Fernandez Consulting Unavailable Tuan Paulson Consulting Unavailable Dominic Lipscomb Consulting Unavailable Froylan Agrueta Consulting Unavailable Apple Benitez Consulting Unavailable BolMellissa Zuleta Consulting Unavaila Chhaya Agudelo Consulting Unavailable Tuan Farrell Consulting Unavailable Martha Haas Consulting Unavailable Alysia Patrick Consulting Unavailable Zack Belcher Jr Consulting UnavailHerb Ta Consulting Unavaila josemanuel Tovar II, Sridevi Mccann Attending Unavailmarisa Tovar II, Sridevi Mccann Admitting Unavailabl e Jasmyne Casillas Primary Care Unavailable Guy [place], Sridevi Mccann Attending Unavailabl santosh Tovar II, Sridevi Mccann Admitting Unavailabl e Jasmyne Casillas Primary Care Unavailable Guy [place], Sridevi Mccann Admitting Unavailabl e Converse II, Sridevi Mccann Attending Unavailabl e Jasmyne Casillas Primary Care Unavailable Katie Cook Admitting Unavailable Jasmyne Casillas Primary Care Unavailable Katie Cook Attending Unavailable Guy [place], Sridevi Mccann Attending Unavailmarisa e Guy [place], Sridevi Mccann Admitting Unavailabl e Jasmyne Casillas Primary Care Unavailable Tuan Farrell Admitting Unavailable Sonja, Jasmyne M Primary Care Unavailable Tuan Farrell Attending Unavailable Angelita Duncan Consulting Unavailable Carrie Rand Consulting Unavailable Malissa Garcia Consulting Unavailable Asya Cui Consulting Unavailable Ada Hsu Consulting Unavailable Manny Dupree Consulting Unavailable Jean Paul Chong Consulting Unavailable Samson Galdamez Consulting Unavailable Zeus Gates Consulting UnavailJason Smith Consulting Unavailable Lilliam Stern Consulting Unavailable Roland Matute Consulting Unavailable Dominic Rainey Consulting Unavailable Emily Lawrence Consulting Unavailabl Agusto Perdue Consulting Unavailable Nick Hernández Consulting Unavailable Jv Rankin Consulting Unavailable Alma Delia Hazel Consulting Unavailable Roland Berry Consulting Unavailable Mercedes Palumbo Consulting Unavailable Fermin Paredes Consulting Unavailable Manisha Lewis Consulting Unavailable Ahmet Castillo Consulting Unavailable Jose Thacker Consulting Unavailab Beau Small Consulting Unavailable Dranell Schofield Consulting Unavailable Mesha Asencio Consulting Unavailable Otoniel Benavides Consulting Unavailable Marnie Aguilar Consulting Unavailable Vasyl Lynn Consulting Unavailable ObJacquie de Consulting Unavailable Bib Lynne Consulting Unavailable Emelia Deras Consulting Unavailable Chyna Gannon Consulting Unavailable Melisa Melissa Consulting Unavailable Alahmad Alaa Consulting Unavailable Jefry Oquendo Consulting Unavailable Louis Chapman Consulting Unavailable Andreina Pineda Consulting Unavailable Mitchell Schofield Consulting Unavailable Dino Salamanca Consulting Unava ilable Emy Martin Consulting Unavailable Bernadette Hernandez Consulting Unavailable Dieter Fernandez Consulting Unavailable Tuan Paulson Consulting Unavailable Dominic Lipscomb S Consulting Unavailable Froylan Argueta Consulting Unavailable Apple Benitez Consulting Unavailable Bolzan-Brissa Nicolettgray Consulting Unavaila Chhaya Agudelo Consulting Unavailable JASMYNE CASILLAS Primary Care Unavailable KATIE COOK Referring Unavailable [facility] [place] Attending Unavailable JASMYNE CASILLAS Primary Care Unavailable BRYANNA ADAN Referring Unavailabl e JASMYNE CASILLAS Primary Care Unavailable BRYANNA ADAN Attending Unavailabl JASMYNE Awan Primary Care Unavailable JASMYNE CASILLAS Referring Unavailable KATIE COOK Attending Unavailable JASMYNE CASILLAS Primary Care Unavailable BRYANNA ADAN Referring Unavailabl BRYANNA Stokes Attending Unavailabl e JASMYNE CASILLAS Primary Care Unavailable BRYANNA ADAN Referring Unavailabl e KATIE COOK Referring Unavailable SONJA, JASMYNE M Primary Care Unavailable SONJA, JASMYNE M Primary Care Unavailable SONJA, JASMYNE M Primary Care Unavailable BRYANNA ADAN Referring Unavailabl e SONJA, JASMYNE M Primary Care Unavailable SONJA, JASMYNE M Referring Unavailable SONJA, JASMYNE M Primary Care Unavailable SONJA, JASMYNE M Primary Care Unavailable KATIE COOK Attending Unavailable KATIE COOK Referring Unavailable SONJA, JASMYNE M Primary Care Unavailable KATIE COOK Referring Unavailable SONJA, JASMYNE M Primary Care Unavailable SONJA, JASMYNE M Primary Care Unavailable KATIE COOK Attending Unavailable SONJA, JASMYNE M Primary Care Unavailable BRYANNA ADAN Referring Unavailabl e SONJA, JASMYNE M Primary Care Unavailable BRYANNA ADAN Referring Unavailabl e KARLEE KELLY Attending Unavailable SONJA, JASMYNE M Primary Care Unavailable SONJA, JASMYNE M Primary Care Unavailable BRYANNA ADAN Referring Unavailabl e BRYANNA ADAN Attending Unavailabl e SONJA, JASMYNE M Primary Care Unavailable BRYANNA ADAN Referring Unavailabl e KOSTA KEENE Attending Unavailable SUNITHA DURAND Attending Unavailable KOSTA KEENE Attending Unavailable JOVAN LEMA Attending Unavailable JOVAN ELMA Attending Unavailable SONJA, JASMYNE Primary Care Unavailable Jovan Lema Admitting Unavailable Jovan Lema Attending Unavailable Unavailable Unavailable Unavailable Allergies Allergy Classification Reported Allergen(s) Allergy Type Date of Onset Reaction(s) Facility Adhesive Tape (6 sources) Adhesive Tape Substance Allergy Rash [facility] chlorproMAZINE (6 sources) chlorproMAZINE Drug Allergy Rash [facility] Leucine (2 sources) Leucine Drug Allergy 021 [facility] Macrolides (antibiotic) (6 sources) Clarithromycin Drug Allergy Unknown Reaction [facility] nickel (1 source) nickel Drug Allergy 024 Unknown Reaction [facility] Nitrous Oxide (6 sources) Nitrous Oxide Drug Allergy 013 Nausea And Vomiting [facility] (20 sources) Adhesive Tape; Translations: [adhesive tape] Propensity to adverse reactions to drug Rash [facility] (20 sources) chlorproMAZINE; Translations: [chlorpromazine] Drug Allergy 012 Rash, Unknown [place], [place] (20 sources) Clarithromycin; Translations: [clarithromycin] Drug Allergy Unknown [place] (20 sources) Nitrous Oxide; Translations: [nitrous oxide] Drug Allergy Nausea And Vomiting, Vomiting [place] (20 sources) Iodides; Translations: [IODIDES] Propensity to adverse reactions to drug Anaphylaxis, Shortness Of Breath [place] (14 sources) Other Propensity to adverse reactions [place] (20 sources) Hylan G-F 20; Translations: [HYLAN G-F 20] Propensity to adverse reactions to drug 012 Swelling, Unknown [place] (20 sources) chlorproMAZINE; Translations: [CHLORPROMAZINE] Drug Allergy [facility] Repository (20 sources) Iodinated Contrast Media; Translations: [IODINATED CONTRAST MEDIA] Allergy to substance Shortness of breath [facility] Comment on above: breathing problems (20 sources) metal Allergy to substance [facility] (20 sources) Leucine; Translations: [LEUCINE] Drug Allergy [facility] (2 sources) chlorproethazine; Translations: [CHLORPROETHAZINE] Drug Allergy [facility] Repository (20 sources) chlorproMAZINE; Translations: [Thorazine] Drug Allergy Unknown [facility] Rep[facility] (3 sources) Clarithromycin; Translations: [Biaxin] Drug Allergy [facility] Rep[facility] (1 source) Contrast media Drug allergy (disorder) [facility] Rep[facility] (4 sources) Doxycycline; Translations: [DOXYCYCLINE] Drug Allergy [facility] (2 sources) HYLAN G-F 20 Drug Allergy [facility] (2 sources) Nitrous Oxide Drug Allergy 016 [facility] (2 sources) Adhesive bandage; Translations: [Adhesive Bandage] Drug allergy tape [facility] (16 sources) Collagen; Translations: [collagen] Drug Allergy 023 the Sinvist collagen in the knee [facility] (20 sources) Contrast media; Translations: [CONTRAST DYE] Drug allergy 013 Shortness of Breath [facility] (14 sources) Doxycycline; Translations: [doxycycline] Drug Allergy 018 Unknown [facility] (20 sources) nickel; Translations: [NICKEL] Drug Allergy 021 Cutaneous eruption (morphologic abnormality), Unknown, Rash, Swelling [facility] (19 sources) michael Propensity to adverse reactions Unknown [facility] Other (2 sources) nitrousoxyize Propensity to adverse reactions Unknown [facility] Other (2 sources) Most Tape Types Propensity to adverse reactions (Kaushal) 10/08/2011 welts/rash welts/rash [facility] Other (2 sources) Biaxin, Ivp Dye,thorazine Propensity to adverse reactions ([facility]) 06/08/2011 Asthma Asthma [facility] Other (20 sources) simvus Propensity to adverse reactions 024 Unknown, Unknown Reaction [facility] (20 sources) HYLAN G-F 20 Drug Allergy 013 Swelling [facility] (17 sources) Adhesive Tape Drug allergy Unknown [facility] [employer] Other (15 sources) Iodides Propensity to adverse reactions to drug 012 Anaphylaxis, Shortness Of Breath [facility] Work Phone: (1 source) Iodine (And Iodine Containting Drugs) Drug allergy (disorder) [facility] (13 sources) chlorproethazine Drug Allergy Unknown [facility] (13 sources) Clarithromycin Allergy to substance 012 Unknown [facility] (13 sources) Leucine Drug Allergy [facility] (13 sources) Nitrous Oxide Drug Allergy 013 Unknown, Nausea And Vomiting, GI intolerance [facility] (12 sources) Wound Dressing Adhesive Drug Allergy [facility] (10 sources) Metal (Generic) Environmental allergy [facility] (1 source) Other/Food Propensity to adverse reactions [facility] (1 source) ADHESIVE TAPE-SILICONES; Translations: [ADHESIVE TAPE-SILICONES] Propensity to adverse reactions to drug (disorder) [facility] Rep[facility] NEGATED: Highlighted row has been ruled out!Unclassified (20 sources) Other Propensity to adverse reactions [facility] Medications Current Medications Medication Drug Class(es) Dates Sig (Normalized) Sig (Original) acetaminophen 500 mg oral tablet (20 sources) Start: 09-09-2024 Start: 07-16-2024 End: 09-09-2024 take 2 tablets by mouth every eight hours Acetaminophen 500 mg tablet Discontinued 1000 MG PO Q8H 180 30 July 16, 2024 1:00am September 09, 2024 10:59am do not reconcile until DOS:07/27/24. MED TO BED Start: 07-13-2024 End: 07-30-2024 Acetaminophen (8 Hour Pain R eliever) 650 mg tablet extended release Discontinued 1300 MG PO Every 12 hours as needed for fever or pain July 13, 2024 1:00am July 30, 2024 2:09pm On Hold: Resume on 08/27/24. Start: 09-03-2023 End: 07-13-2024 acetaminophen (Tylenol) 500 MG tablet 09/03/2023 Active acetaminophen 500 mg / diphenhydrAMINE hydrochloride 25 mg oral tablet (1 source) Histamine-1 Receptor Antagonist take 25-500 mg by mouth once daily diphenhydrAMINE-APAP, sleep, (TYLENOL PM EXTRA STRENGTH) 25-500 MG tablet Take 1 tablet by mouth nightly 0 Active [id number] 200 actuat albuterol 0.09 mg/actuat metered dose inhaler (20 sources) beta2-Adrenergic Agonist Start: 2023 take 2 puff(s) by inhalation four times daily as needed for wheezing albuterol sulfate HFA (PROVENTIL;VENTOLIN;PROAIR ) 108 (90 Base) MCG/ACT inhaler Indications: Mild persistent asthma without complication Inhale 2 puffs into the lungs 4 times daily as needed for Wheezing 1 each 5 02/17/2024 Active Start: 01-14-2023 End: 08-15-2023 take 2 puff(s) by mouth four times daily as needed for wheezing albuterol HFA 90 mcg/act inhaler INHALE 2 PUFFS BY MOUTH 4 TIMES DAILY NEEDED FOR WHEEZING 0 01/14/2023 08/15/2023 Discontinued Start: 2021 End: 04-03-2023 take 2.5 mg by inhalation every six hours as needed for wheezing Albuterol Sulfate 2.5 mg /3 mL (0.083 %) Solution For Nebulization Discontinued 2.5 MG INHALATION Q6H as needed for Wheezing January 16, 2023 12:00am April 03, 2023 12:14pm Start: 10-17-2020 take 2 puff(s) by in halation four times daily as needed for wheezing albuterol sulfate HFA 108 (90 Base) MCG/ACT inhaler Indications: Mild persistent asthma without complication Inhale 2 puffs into the lungs 4 times daily as needed for Wheezing 1 Inhaler 3 10/17/2020 Active Start: 05-31-2019 take 2 puff(s) by in halation four times daily as needed for wheezing albuterol sulfate HFA 108 (90 Base) MCG/ACT inhaler Inhale 2 puffs into the lungs 4 times daily as needed for Wheezing 1 Inhaler 3 05/31/2019 Active Start: 02-06-2018 take 1 puff(s) by in halation every four to six hours Albuterol Sulfate Active 1 PUFF INHALATION EVERY 4-6 HOURS February 06, 2018 5:01pm Start: 02-06-2018 take 1 puff(s) by in halation every four to six hours as needed for wheezing Start: 02-06-2018 take 1 puff(s) by in halation every four to six hours Albuterol Sulfate Active 1 PUFF INHALATION EVERY 4-6 HOURS February 06, 2018 12:00am Start: 02-06-2018 take 1 puff(s) by in halation every four to six hours Albuterol Sulfate Active 1 PUFF INHALATION EVERY 4-6 HOURS February 05, 2018 11:00pm Start: 09-25-2017 take 2 puff(s) by in halation every six hours as needed for wheezing albuterol sulfate HFA (PROAIR HFA) 108 (90 Base) MCG/ACT inhaler Inhale 2 puffs into the lungs every 6 hours as needed for Wheezing 1 Inhaler 3 09/25/2017 Active Start: 07-06-2011 albuterol = 2 puff(s), PRN Wheezing, Refills(s) 0 Start Date: 07/06/11 Status: Ordered Comment on above: Use 2.5 mg via nebul izer every 6 hours as needed. Albuterol Sulfate 108 (90 Base) MCG/ACT (19 sources) take 1 puff(s) by inhalation every four hours as needed Albuterol Sulfate 108 (90 Base) MCG/ACT 1 puff as needed Inhalation every 4 hrs PRN Active take 1 puff(s) by in halation every four hours as needed Albuterol Sulfate 108 (90 Base) MCG/ACT 1 puff as needed Inhalation every 4 hrs Active Albuterol Sulfate 90 mcg/actuation Hfa Aerosol Inhaler (16 sources) Start: 02-06-2018 take 1 puff(s) by inhalation every four to six hours as needed for wheezing Albuterol Sulfate 90 mcg/actuation Hfa Aerosol Inhaler Active 1 PUFF INHALATION EVERY 4-6 HOURS as needed for Shortness Of Breath Or Wheezing February 06, 2018 12:00am Start: 02-06-2018 take 1 puff(s) by in halation every four to six hours as needed for wheezing Albuterol Sulfate 90 mcg/actuation Hfa Aerosol Inhaler Active 1 PUFF INHALATION EVERY 4-6 HOURS as needed for Shortness Of Breath Or Wheezing February 05, 2018 11:00pm albuterol sulfate HFA 108 (90 Base) MCG/ACT inhaler (11 sources) Start: 05-31-2019 take 2 puff(s) by inhalation four times daily as needed for wheezing albuterol sulfate HFA 108 (90 Base) MCG/ACT inhaler Inhale 2 puffs into the lungs 4 times daily as needed for Wheezing 1 Inhaler 3 05/31/2019 Active amiodarone hydrochloride 200 mg oral tablet (20 sources) Antiarrhythmic Start: 06-22-2022 take 1 tablet by mouth once daily amiodarone (CORDARONE) 200 MG tablet Take 1 tablet by mouth daily 06/22/2022 Active Start: 06-22-2022 End: 11-26-2023 take 2 tablets by mouth twice daily, then take 1 tablet by mouth twice daily, then take 1 tablet by mouth once daily amiodarone (PACERONE) 200 mg tablet Take 2 tablets by mouth twice daily for 5 days, THEN 1 tablet twice daily for 5 days, THEN 1 tablet once daily. 60 tablet 06/22/2022 11/26/2023 Discontinued (Discontinued by another Health Care Provider) Start: 09-16-2020 amiodarone (CO RDARONE) 200 MG tablet Indications: Paroxysmal atrial fibrillation (HCC) 200 mg daily 0 09/16/2020 Active Comment on above: Take 2 tablets by mo ut twice daily for 5 days, THEN 1 tablet twice daily for 5 days, THEN 1 tablet once daily. apixaban 5 mg oral tablet (20 sources) Factor Xa Inhibitor Start: 09-14-2020 take 1 tablet by mouth twice daily apixaban (ELIQUIS) 5 mg tab(s) Eliquis 5 mg tablet Take 1 tablet twice a day by oral route for 90 days. 09/14/2020 Active Start: 02-06-2018 End: 06-21-2020 take 1 tablet by mouth once daily Apixaban 5 mg tablet Discontinued 5 MG PO Daily February 06, 2018 12:00am June 21, 2020 12:18pm Comment on above: Eliquis 5 mg tablet Take 1 tablet twice a day by oral route for 90 days. Aspir-81 81 MG (19 sources) take 1 tablet by mouth once daily Aspir-81 81 MG 1 tablet Orally Once a day Active atorvastatin 80 mg oral tablet (20 sources) HMG-CoA Reductase Inhibitor Start: atorvastatin (Lipitor) 80 MG tablet Take 40 mg by mouth Daily 11/19/2024 Active Start: 11-19-2024 End: 11-19-2025 atorvastatin (LIPITOR) 80 mg tablet Take 80 mg by mouth. 11/19/2024 11/19/2025 Active Start: 02-06-2018 End: 11-10-2018 take 4 tablets by mouth once daily Atorvastatin 20 mg Tablet Discontinued 80 MG PO Daily February 06, 2018 12:00am November 10, 2018 11:19am Start: 02-06-2018 End: 11-10-2018 take 80 mg by mouth once daily Atorvastatin Discontinu ed 80 MG PO Daily February 05, 2018 11:00pm November 10, 2018 10:19am B Complex 100 oral tablet (1 source) Start: 07-06-2011 B Complex 100 oral tablet Oral, Daily, Refill(s) 0 Start Date: 07/06/11 Status: Ordered B Complex Vitamins (VITAMIN B COMPLEX) TABS (14 sources) take 1 tablet by mouth once daily B Complex Vitamins (VITAMIN B COMPLEX) TABS Take 1 tablet by mouth daily 0 Active B Complex Vitami ns (VITAMIN B COMPLEX) TABS Take 1 tablet by mouth 0 Active bumetanide 1 mg oral tablet (20 sources) Loop Diuretic Start: 09-04-2023 bumetanide Act jacinto 1 TAB PO September 04, 2023 12:00am orally once in the morning then everyother night; Start: 09-04-2023 bumetanide Act jacinto 1 TAB PO September 04, 2023 1:00am orally once in the morning then everyother night; Start: 09-04-2023 bumetanide (Bu carmencita) Active PO September 04, 2023 1:00am Start: 2023 End: 10-28-2024 take 1 tablet by mouth in the morning bumetanide (Bumex) 1 MG tablet Take 1 mg by mouth in the morning. 2023 Active Start: 2023 Calcium + D3 600-800 MG-UNIT (19 sources) take 600-800 tablets by mouth once daily Calcium + D3 600-800 MG-UNIT 1 tablet with a meal Orally Once a day Active calcium carbonate 1500 mg oral tablet (20 sources) Start: 06-13-2020 End: 07-13-2024 calcium carbonate (CALTRATE) 600 mg calcium (1,500 mg) tab 600 mg. 06/13/2020 Active Comment on above: 600 mg. calcium carbonate 1500 mg / cholecalciferol 200 unt oral capsule (20 sources) Vitamin D Start: 01-16-2023 take 1 capsule by mouth once daily Start: 02-06-2018 End: 06-13-2020 take 1200 mg by mouth once daily Calcium Carbonate-Vitamin D3 Discontinued 1200 MG PO Daily February 06, 2018 5:01pm June 13, 2020 5:17pm Start: 02-06-2018 End: 06-13-2020 take 1 tablet by mouth once daily Calcium Carbonate-Vitamin D3 500 mg(1,250mg) -400 unit Tablet Discontinued 1200 MG PO Daily February 06, 2018 12:00am June 13, 2020 6:17pm take 1 tablet by [place] [facility] once daily Calcium Carbonate-Vitamin D 600-5 MG-MCG tablet Take 1 tablet by mouth Daily Active take 1 tablet by [place] th once in the morning Calcium Carbonate-Vitamin D 600-5 MG-MCG tablet Take 1 tablet by mouth in the morning. Active cholecalciferol 0.05 mg oral capsule (20 sources) Vitamin D Start: 07-13-2024 End: 07-30-2024 take 1 capsule by mouth once daily Start: 07-13-2024 take 1 capsule by mo uth once daily Cholecalciferol (Vitamin D3) (Vitamin D3) 50 mcg (2,000 unit) capsule Active 50 MCG PO Daily July 13, 2024 12:00am Start: 02-06-2018 End: 01-16-2023 take 1 tablet by mouth once daily Cholecalciferol (Vitamin D3) (Vitamin D3) 1,000 unit Tablet Discontinued 1000 UNIT PO Daily February 06, 2018 12:00am January 16, 2023 11:59am cholecalciferol (Vitamin D-3) 50 MCG (2000 UT) tablet Active take 1.5 tablets by mouth once daily cholecalciferol (Vitamin D-3) 50 MCG (2000 UT) tablet Take 1.5 tablets every day by oral route. Active chromium picolinate 1 mg ora l tablet (20 sources) Start: 02-06-2018 take 1 tablet by [place] th once daily Start: 02-06-2018 take 500 ug by mouth once nadiya y Chromium Picolinate Active 500 MCG PO Daily February 05, 2018 11:00pm Start: 01-27-2015 chromium picol inate 500 microgram, Oral, Daily, Refills(s) 0 Start Date: 01/27/15 Status: Ordered take 1 tablet by [place] th in the morning Chromium Picolinate 500 MCG capsule Take 1 tablet by mouth in the morning. Active take 1 tablet by [place] th once daily Chromium Picolinate 500 MCG CAPS Take 1 tablet by mouth daily. Active take 1 tablet by [place] th once daily Chromium Picolinate 500 mcg cap Take 1 tablet by mouth once daily. Active take 1 tablet by [place] th in the morning Chromium Picolinate 500 MCG capsule Take 1 tablet by mouth in the morning. 0 Active Chromium Picolin ate 500 MCG Orally Active take 1 tablet by [place] th once daily Chromium Picolinate 500 mcg cap Take 1 tablet by mouth once daily. 0 Suspended take 1 tablet by [place] th once daily Chromium Picolinate 500 mcg cap Take 1 tablet by mouth once daily. 0 Active Chromium Picolin ate 500 MCG Orally Active take 1 tablet by [place] th once daily Chromium Picolinate 500 MCG CAPS Take 1 tablet by mouth daily. 0 Active Comment on above: Take 1 tablet by [place] once daily. clotrimazole 0.01 mg/mg topical ointment (3 sources) Azole Antifungal Start: 04-11-20 apply 56.7 g topically once daily Clotrimazole 1 % OINT Use topical to bilateral ears and hairline rash daily x 14 days. 56.7 g 0 04/11/2020 Active ubidecarenone 100 mg oral capsule (20 sources) Start: 06-13-20 20 Start: 02-06-2018 End: 06-13-2020 take 10 capsules by mouth once daily Coenzyme Q10 200 mg Capsule Discontinued 100 MG PO Daily February 06, 2018 12:00am June 13, 2020 6:18pm coenzyme Q-10 10 MG capsule 1 (one) time each day at the same time Active take 1 capsule by mo [facility] every twenty-four hours Coenzyme Q-10 200 MG 1 capsule with a meal Orally Once a day Active Coenzyme Q10 (COQ-10 PO) (20 sources) Coenzyme Q10 (CO Q-10 PO) Take 100 mg by mouth daily Active Coenzyme Q10 (CO Q-10 PO) Take 200 mg by mouth daily. Active Coenzyme Q10 (CO Q-10 PO) Take 200 mg by mouth daily. 0 Active CoQ10 (1 source) Start: 01-27-2015 take 100 mg by mouth once daily CoQ10 100 mg, Oral, Daily, Refills(s) 0 Start Date: 01/27/15 Status: Ordered dicyclomine hydrochloride 10 mg oral capsule (1 source) Anticholinergic Start: 12-19-2022 take 1 capsule by mouth every six hours Dicyclomine HCl 10 MG 1 capsule Orally Four times a day for 30 days Nov, Active diphenhydrAMINE hydrochloride 50 mg oral capsule (6 sources) Histamine-1 Receptor Antagonist Start: 02-16-2025 diphenhydrAMINE (BENADryl) 50 MG capsule Take 50 mg by mouth if needed 02/16/2025 Active DULoxetine 30 mg delayed release oral capsule (17 sources) Serotonin and Norepinephrine Reuptake Inhibitor Start: 07-13-2024 take 1 capsule by mouth once daily in the evening enteric contrast (will be provided with radiology test) (2 sources) Start: 08-17-2024 End: 08-17-2024 take 1 dose by mouth once, then take 1 dose by mouth once enteric contrast (will be provided with radiology test) Take 1 Each by mouth one time only for [address] Chest ABD/PEL WO Routine order Administer, As Directed One Time Only, via Oral, Rectal, both Oral and Rectal, Enteric Tube, Stoma or Indwelling Catheter, Enteric Contrast as designated per enteric contrast guidelines 1 Each 08/17/2024 08/17/2024 Active Start: 08-17-2024 End: 08-17-2024 enteric contrast (will be pr ovided with radiology test) For CT CHESTABD/PEL W IVCON Routine order Administer, As Directed One Time Only, via Oral, Rectal, both Oral and Rectal, Enteric Tube, Stoma or Indwelling Catheter, Enteric Contrast as designated per enteric contrast guidelines 1 Each 08/17/2024 08/17/2024 Discontinued esomeprazole 40 mg delayed release oral capsule (20 sources) Proton Pump Inhibitor Start: 03-13-2023 End: 12-14-2024 esomeprazole (NexIUM) [address] capsule 06/07/2023 Active Start: 07-18-2020 Nexium Oral, D aily, Refills(s) 0 Start Date: 07/18/20 Status: Ordered Start: 06-13-2020 End: 08-15-2023 take 1 capsule by mouth three times weekly Esomeprazole Magnesium (Nexium) 20 mg Capsule,Delayed Release(Dr/Ec) Discontinued 20 MG PO 3 Times a week June 13, 2020 1:00am January 16, 2023 11:59am Saturday, Saturday, Saturday take 1 capsule by mo ut two times weekly esomeprazole (NEXIUM) 40 mg capsule Take 40 mg by mouth as directed. Twice per week Active take 1 capsule by mo ut every twenty-four hours NexIUM 24HR 20 MG 1 capsule Orally Once a day Active take 1 capsule by mo uth two times weekly esomeprazole (NEXIUM) 20 mg capsule Take 20 mg by mouth as directed. Twice per week 0 Active take 20 mg by mouth once daily e someprazole Magnesium (NEXIUM) 20 MG PACK Take 20 mg by mouth daily 2 days a week. 0 Active Comment on above: Take 20 mg by mouth as directed. Twice per week Take 40 mg by mouth as directed. Twice per week estrogens, conjugated (residential) 0.625 mg/ml vaginal cream (14 sources) Estrogen Start: 05-12-2013 PREMARIN vaginal cream as needed. 0 05/12/2013 Active famotidine 40 mg oral tablet (1 source) Histamine-2 Receptor Antagonist Start: 01-23-2021 take 1 mg by mouth twice daily Pepcid 40 mg Tab mg tab(s), Oral, BID Start Date: 01/23/21 Status: Ordered ferrous sulfate 324 mg delayed release oral tablet (20 sources) Start: 07-30-2024 End: 09-09-2024 take 1 tablet by mouth once daily Start: 06-15-2024 End: 01-26-2025 take 1 tablet by mouth three times daily Ferrous Sulfate (Iron (Ferrous Sulfate)) 325 mg (65 mg iron) tablet Discontinued 325 MG PO tid 90 June 15, 2024 1:00am July 30, 2024 2:09pm Fluticasone Furoate-Vilanter ol (20 sources) Corticosteroid, beta2-Adrenergic Agonist Start: 07-13-2024 Start: 07-13-2024 Fluticasone Fu roate-Vilanterol (Breo Ellipta) 200-25 mcg/dose blister with device Active 1 INH INHALATION Every morning July 13, 2024 1:00am Start: 07-13-2024 Fluticasone Fu roate-Vilanterol (Breo Ellipta) 200-25 mcg/dose blister with device Active 1 INH INHALATION Every morning July 13, 2024 12:00am Start: 02-17-2024 take 1 puff(s) by in halation once daily fluticasone furoate-vilanterol (BREO ELLIPTA) 200-25 MCG/ACT AEPB inhaler Inhale 1 puff into the lungs daily 1 each 5 02/17/2024 Active 60 actuat formoterol fumarate 0.005 mg/actuat / mometasone furoate 0.2 mg/actuat metered dose inhaler (3 sources) Corticosteroid, beta2-Adrenergic Agonist Start: 02-17-2024 take 2 puff(s) by inhalation in the morning mometasone-formoterol (DULERA) 200-5 MCG/ACT inhaler Inhale 2 puffs into the lungs in the morning and 2 puffs in the evening. 1 each 02/17/2024 Active furosemide 40 mg oral tablet (20 sources) Loop Diuretic Start: 01-23-2021 End: 11-26-2023 take 1 tablet by mouth in the morning furosemide (Lasix) 40 MG tablet Take 1 tablet by mouth in the morning. 0 03/07/2022 08/15/2023 Discontinued Start: 11-11-2019 End: 09-04-2023 take 2 tablets by mouth once daily Furosemide (Lasix) 20 mg Tablet Discontinued 40 MG PO Daily June 13, 2020 1:00am September 04, 2023 10:41am Start: 11-11-2019 take 1 tablet by [place] th once daily Furosemide (Lasix) 20 mg Tablet Active 20 MG PO Daily June 13, 2020 12:00am Comment on above: Take 40 mg by mouth once daily. gabapentin 300 mg oral capsule (20 sources) Anti-epileptic Agent Start: 09-29-2024 End: 05-21-2025 take 1 capsule by mouth at bedtime gabapentin (Neurontin) 300 MG capsule Take 300 mg by mouth at bedtime 09/29/2024 05/21/2025 Active Start: 06-23-2022 End: 10-01-2022 take 1 capsule by mouth three times daily gabapentin (NEURONTIN) 300 mg capsule Take 1 capsule by mouth three times daily for 60 days. 90 capsule 1 06/23/2022 10/01/2022 Discontinued Start: 06-23-2022 End: 11-26-2023 take 1 capsule by mouth once daily at bedtime gabapentin (NEURONTIN) 300 mg capsule Take 1 capsule by mouth daily at bedtime for 90 days. 90 capsule 1 10/01/2022 11/26/2023 Discontinued (Discontinued by another Health Care Provider) Start: 06-22-2022 End: 06-23-2022 take 1 capsule by mouth twice daily gabapentin (NEURONTIN) 300 mg capsule Take 1 capsule by mouth twice daily for 30 days. 60 capsule 0 06/22/2022 06/23/2022 Discontinued Comment on above: Take 1 capsule by mo [facility] twice daily for 30 days. Take 1 capsule by [facility] three times daily for 60 days. Take 1 capsule by [facility] daily at bedtime for 90 days. Handicap Placard MISC (14 sources) Start: 019 Handicap Placard MISC Indications: Mild persistent asthma without complication , Aortic stenosis, moderate by Does not apply route 1 each 0 11/17/2018 Active hydroCHLOROthiazide 25 mg / spironolactone 25 mg oral tablet (1 source) Thiazide Diuretic, Aldosterone Antagonist Start: take 1 tablet by mouth once daily Aldactazide 25 mg-25 mg oral tablet tab(s), Oral, Daily, Refill(s) 0 Start Date: 03/09/20 Status: Ordered levothyroxine sodium 0.05 mg oral tablet (20 sources) l-Thyroxine Start: 021 take 1 tablet by mouth once daily levothyroxine (Synthroid, Levoxyl) 50 MCG tablet Take 1 tablet by mouth Daily 08/13/2022 Active take [facility] once daily in the morning Levothyroxine Sodium 50 MCG 1 tablet in the morning on an empty stomach Orally Once a day Active Comment on above: levothyroxine 50 mcg tablet TAKE 1 TABLET BY MOUTH DAILY FOR HYPOTHYROIDISM Magnesium (20 sources) Start: 01-16-2023 Start: 01-16-2023 Magnesium 250 mg Tablet Active 600 MG PO Daily January 16, 2023 12:00am Start: 01-16-2023 Magnesium 250 mg Tablet Active 600 MG PO Daily January 15, 2023 11:00pm Start: 01-16-2023 take 600 mg by mouth once nadiya y Magnesium Active 600 MG PO Daily January 15, 2023 11:00pm Start: 01-16-2023 take 600 mg by mouth once nadiya y Magnesium Active 600 MG PO Daily January 16, 2023 12:00am Start: 01-16-2023 take 500 mg by mouth once nadiya y Magnesium Active 500 MG PO Daily January 16, 2023 12:00am take 1 tablet by [place] th once daily MAGNESIUM ORAL Take 1 tablet by mouth once daily. 600mg Active take 1 tablet by [place] th once daily MAGNESIUM ORAL Take 1 tablet by mouth once daily. 600mg 0 Suspended take 1 tablet by [place] th once daily MAGNESIUM ORAL Take 1 tablet by mouth once daily. 600mg 0 Active take 1 tablet by [place] th once daily Magnesium 500 MG 1 tablet with a meal Orally Once a day Active Comment on above: Take 1 tablet by [place] th once daily. 600mg magnesium oxide 500 mg oral tablet (20 sources) Start: 01-27-2015 take 500 mg by mouth once daily at bedtime magnesium oxide 500 mg, Oral, Once a day (at bedtime), Refills(s) 0 Start Date: 01/27/15 Status: Ordered take 1 tablet by mouth once nadiya y magnesium oxide (Mag-Ox) 400 MG tablet Take 1 tablet by mouth Daily Active take 1 tablet by mouth once nadiya y Magnesium 500 MG CAPS Take 1 tablet by mouth nightly. Active melatonin 10 mg oral tablet (20 sources) Start: 02-06-2018 melatonin 10 m g tab 10 mg. 02/06/2018 Active Start: 02-06-2018 take 5 mg by mouth a t bedtime as needed for sleep Start: 02-06-2018 take 5 mg by mouth at bedtime Melatonin Active 5 MG PO Bedtime February 05, 2018 11:00pm Start: 01-27-2015 take 5 mg by mouth o nce daily at bedtime melatonin 5 mg, Oral, Once a day (at bedtime), Refills(s) 0 Start Date: 01/27/15 Status: Ordered Melatonin 10 MG capsule Active Melatonin 5 MG C APS 10 mg daily Active Melatonin 10 MG as directed Orally Active take 1 capsule by mo [facility] once daily Melatonin 5 MG CAPS Melatonin 5 mg capsule Take 1 capsule every day by oral route. 0 Active Comment on above: 10 mg. metoprolol tartrate 25 mg oral tablet (20 sources) beta-Adrenergic Choco Start: 06-26-2022 take 1 tablet by mouth twice daily metoprolol tartrate, short acting, (LOPRESSOR) 25 mg tablet Take 1/2 tablet by mouth twice daily. 180 tablet 3 06/26/2022 Active Start: 02-06-2018 Start: 02-06-2018 take 12.5 mg by mout h twice daily Metoprolol Tartrate Active 12.5 MG PO Twice daily February 05, 2018 11:00pm Start: 01-27-2015 End: 06-23-2022 take 1 tablet by mouth twice daily metoprolol tartrate, short acting, (LOPRESSOR) 25 mg tablet Take 1/2 tablet by mouth twice daily. 180 tablet 3 06/26/2022 Active take 0.5 tablet by m outh twice daily Metoprolol Tartrate 25 MG 1/2 tablet Orally Twice a day Active Comment on above: Take 1 tablet by [place] th twice daily. Take 1/2 tablet by m outh twice daily. metroNIDAZOLE 500 mg oral tablet (3 sources) Nitroimidazole Antimicrobial Start: 12-28-19 22 take 1 tablet by mouth every eight hours metroNIDAZOLE 500 MG 1 tablet Orally Three times a day for 10 day(s) Nov, Active montelukast 10 mg oral tablet (20 sources) Leukotriene Receptor Antagonist Start: 07-23-19 23 take 1 tablet by mouth in the morning montelukast (Singulair) 10 MG tablet Take 10 mg by mouth in the morning. 07/23/2022 Active Comment on above: Take 10 mg by mouth once daily. 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 1 Bottle of 25 0 12/24/2014 Active nitroglycerin (N itrostat) 0.4 MG SL tablet Active Comment on above: Dissolve 1 tablet un gwendolyn the tongue every 5 minutes as needed. omeprazole 40 mg oral tablet (20 sources) Proton Pump Inhibitor Start: 01-23-2021 take 40 mg by mouth once daily Prilosec 40 mg, Oral, Daily Start Date: 01/23/21 Status: Ordered Start: 02-06-2018 End: 06-13-2020 take 1 tablet by mouth once daily Omeprazole Magnesium (Prilosec Otc) 20 mg Tablet,Delayed Release (Dr/Ec) Discontinued 20 MG PO Daily February 06, 2018 12:00am June 13, 2020 6:20pm Start: 01-02-2013 take 1 capsule by de ut once daily omeprazole (PRILOSEC) 20 MG capsule Take 1 capsule by mouth daily. 90 capsule 1 01/02/2013 Active Outpatient PT (1 source) Start: 03-02-2016 Outpatient PT Outpatient PT, Eval and Tx Dx: Dizzyness, recent CVA, Right knee pain s/p TKA, Print Requisition, Supply Start Date: 03/02/16 Status: Ordered Mingleverse (16 sources) Synovex [facility] Active prednisoLONE 5 mg oral tablet (15 sources) Corticosteroid prednisoLONE 5 M G TABS Take by mouth 0 Active prednisoLONE (MO LLIPRED PO) Indications: PMR (polymyalgia rheumatica) ([facility]) prednisolone 4 mg 0 Active predniSONE 50 mg oral tablet (20 sources) Start: 02-16-2025 take 1 tablet by mouth once daily predniSONE (Deltasone) 50 MG tablet Take 50 mg by mouth Daily 02/16/2025 Active Start: 02-16-2025 End: 02-17-2025 predniSONE (DELTASONE) 50 mg Take 1 tablet by mouth every 6 hours for 3 doses. For prevention of contrast allergy given 13 hrs, 7 hrs, and 1 hr prior to exam. 3 tablet 02/16/2025 02/17/2025 Start: 07-16-2024 End: 07-30-2024 take 1 tablet by mouth once daily Prednisone 10 mg tablet Discontinued 10 MG PO daily 04 09July 16, 2024 1:00am July 30, 2024 2:09pm do not reconcile until DOS:07/27/24. MED TO BED Start: 10-11-2021 take 1 tablet by garland th once daily predniSONE 1 mg Tab 1 mg = 1 tab(s), Oral, Daily Start Date: 10/11/21 Status: Ordered Start: 01-17-2021 predniSONE (DE LTASONE) 1 MG tablet 1 mg daily 0 01/17/2021 Active Start: 01-17-2021 predniSONE (DE LTASONE) 1 MG tablet 2 mg daily 0 01/17/2021 Active Start: 07-20-2019 End: 01-16-2023 take 1 tablet by mouth once daily Prednisone 5 mg Tablet Discontinued 5 MG PO Daily June 13, 2020 1:00am January 16, 2023 11:59am take 1 tablet by garland th every other day predniSONE 2.5 MG 1 tablet Orally EVERY OTHER DAY 2 MG Active Comment on above: Take 1 mg by mouth o nce daily. 1 every other day Respiratory Therapy Supplies (NEBULIZER/TUBING/GARLAND THPIECE) KIT (12 sources) Start: 04-17-20 Respiratory Therapy Supplies (NEBULIZER/TUBING/M OUTHPIECE) KIT 1 kit by Does not apply route daily as needed (asthma shortness of breath) 1 kit 0 2021 Active rifAXIMin 550 mg oral tablet (3 sources) Rifamycin Antibacterial Start: 12-28-19 take 1 tablet by mouth every eight hours Xifaxan 550 MG 1 tablet Orally Three times a day for 14 day(s) Nov, Active rosuvastatin calcium 40 mg oral tablet (20 sources) HMG-CoA Reductase Inhibitor Start: 11-11-19 End: 12-08-19 take 1 tablet by mouth at bedtime Start: 01-27-2015 take 1 tablet by garland th once daily at bedtime Crestor 5 mg Tab 5 mg = 1 tab(s), Oral, Once a day (at bedtime), Refills(s) 0 Start Date: 01/27/15 Status: Suspended Comment on above: Take 40 mg by mouth once daily. spironolactone 25 mg oral tablet (20 sources) Aldosterone Antagonist Start: 0 take 1 tablet by mouth once daily Comment on above: Take 25 mg by mouth once daily. Stool Softener (19 sources) Stool Softener Active Sucralfate (1 source) Aluminum Complex Start: 1 take 1 g by mouth three times daily Carafate gm, Oral, TID Start Date: 01/23/21 Status: Ordered ubiquinol (20 sources) take 1 tablet by mouth once daily COQ10, UBIQUINOL, ORAL Take 1 tablet by mouth once daily. Active take 1 tablet by mouth once nadiya y COQ10, UBIQUINOL, ORAL Take 1 tablet by mouth once daily. 0 Suspended take 1 tablet by mouth once nadiya y COQ10, UBIQUINOL, ORAL Take 1 tablet by mouth once daily. 0 Active Comment on above: Take 1 tablet by garland th once daily. Vitamin B Complex (13 sources) Start: 02-06-2018 take 1 tablet by mouth once daily Vitamin B Complex Active 1 TAB PO Daily February 06, 2018 5:01pm Start: 02-06-2018 End: 01-16-2023 take 1 tablet by mouth once daily Vitamin B Complex Discontinued 1 TAB PO Daily February 05, 2018 11:00pm January 16, 2023 10:59am Start: 02-06-2018 End: 01-16-2023 take 1 tablet by mouth once daily Vitamin B Complex Discontinued 1 TAB PO Daily February 06, 2018 12:00am January 16, 2023 11:59am Start: 02-06-2018 take 1 tablet by garland th once daily Vitamin B Complex Active 1 TAB PO Daily February 05, 2018 11:00pm zafirlukast 20 mg oral tablet (20 sources) Leukotriene Receptor Antagonist Start: 04-22-2019 End: 01-25-2021 take 1 tablet by mouth twice daily zafirlukast (ACCOLATE) 20 MG tablet Indications: Mild persistent asthma without complication Take 1 tablet by mouth 2 times daily 60 tablet 3 01/26/2020 01/25/2021 Active Start: 07-06-2011 End: 01-16-2023 take 1 tablet by mouth once daily Zafirlukast 20 mg Tablet Discontinued 20 MG PO Daily February 06, 2018 12:00am January 16, 2023 12:02pm Comment on above: Take 20 mg by mouth once daily. Completed/Discontinued Medications Medication Drug Class(es) Dates Sig (Normalized) Sig (Original) acetaminophen 325 mg / oxyCODONE hydrochloride 5 mg oral tablet (20 sources) Opioid Agonist Start: 02-09-2018 End: 11-10-2018 take 1 tablet by mouth every four to six hours as needed for pain Oxycodone-Acetamin ophen 5-325 mg Tablet Discontinued 2 TAB PO Q4H as needed for Pain scale 6-10 February 09, 2018 November 10, 2018 11:21am 1 or 2 p.o. every 4-6 hours as needed ampicillin 500 mg oral capsule (20 sources) Penicillin-class Antibacterial Start: 03-24-2018 End: 04-03-2018 take 1 capsule by mouth every six hours Ampicillin 500 mg capsule Discontinued 500 MG PO Q6H 40 March 24, 2018 12:00am April 02, 2018 12:00am April 03, 2018 12:02am anastrozole 1 mg oral tablet (20 sources) Aromatase Inhibitor Start: 07-05-2020 End: 10-26-2024 take 1 tablet by mouth once daily Anastrozole 1 mg tablet Discontinued 1 MG PO Daily January 16, 2023 12:00am October 26, 2024 9:49am Comment on above: Take 1 tablet by garland th once daily. ascorbic acid 500 mg oral tablet (20 sources) Vitamin C Start: 06-15-2024 End: 10-15-2024 take 1 tablet by mouth once daily Ascorbic Acid (Vitamin C) (Vitamin C) 500 mg tablet Discontinued 500 MG PO daily 90 90 July 30, 2024 2:07pm October 15, 2024 7:55am aspirin 81 mg delayed release oral tablet (20 sources) Platelet Aggregation Inhibitor, Nonsteroidal Anti-inflammatory Drug Start: 02-06-2018 End: 05-26-2024 Aspirin (Caitie Low Dose Aspirin) 81 mg Tablet,Delayed Release (Dr/Ec) Discontinued 81 MG PO Daily February 06, 2018 12:00am April 21, 2024 7:41am Start: 07-06-2011 take 1 tablet by garland th at bedtime aspirin 81 mg oral tablet 81 mg = 1 tab(s), Oral, Bedtime, tab(s), Refills(s) 0 Start Date: 07/06/11 Status: Ordered aspirin 81 MG ch ewable tablet Active Comment on above: Take 81 mg by mouth once daily. cefadroxil 500 mg oral capsule (20 sources) Cephalosporin Antibacterial Start: End: take 1 capsule by mouth every twelve hours Cefadroxil 500 mg capsule Discontinued 500 MG PO Q12H 6 3 October 01, 2024 12:00am October 15, 2024 7:55am Start: 07-16-2024 End: 07-30-2024 take 1 capsule by mouth every twelve hours Cefadroxil 500 mg capsule Discontinued 500 MG PO Q12H 14 July 16, 2024 1:00am July 30, 2024 2:09pm do not reconcile until DOS:07/27/24. MED TO BED cetirizine hydrochloride 10 mg oral tablet (20 sources) Histamine-1 Receptor Antagonist Start: 02-06-2018 End: 01-16-2023 take 1 tablet by mouth once daily as needed Cetirizine (Zyrtec) 10 mg Tablet Discontinued 10 MG PO Daily as needed for allergies February 06, 2018 12:00am January 16, 2023 11:59am Comment on above: Cetirizine (Zyrtec) 10 mg Tablet Active 10 MG PO Daily February 06, 2018 5:01pm 24 hr dilTIAZem hydrochloride 180 mg extended release oral capsule (20 sources) Calcium Channel Choco Start: 02-06-2018 End: 02-10-2018 take 1 capsule by mouth once daily, then take 1 capsule by mouth every twenty-four hours Diltiazem Hcl (Cardizem Cd) 180 mg Capsule,Extended Release 24hr Discontinued 180 MG PO Daily February 06, 2018 12:00am February 10, 2018 4:13pm docusate sodium 50 mg / sennosides, residential 8.6 mg oral tablet (20 sources) Start: 07-16-2024 End: 10-15-2024 take 2 tablets by mouth once daily Sennosides-Docusate Sodium (Senokot-S) 8.6-50 mg tablet Discontinued 2 TAB PO daily 60 July 30, 2024 2:07pm October 15, 2024 7:58am do not reconcile until DOS:07/27/24. MED TO BED doxycycline hyclate 100 mg oral capsule (20 sources) Tetracycline-clas s Drug Start: 03-20-2018 End: 04-03-2018 take 1 capsule by mouth twice daily Doxycycline Hyclate 100 mg capsule Discontinued 100 MG PO Twice daily March 20, 2018 12:00am April 02, 2018 12:00am April 03, 2018 12:02am fludeoxyglucose F 18 injection 16.1 millicurie (1 source) Start: 04-11-2022 End: 04-11-2022 fludeoxyglucose F 18 injection 16.1 millicurie hyaluronate (20 sources) Start: 10-01-2018 Euflexxa Sep, 2 mL Start: 09-24-2018 Euflexxa 27 Ma r, 2018 2 mL Start: 09-17-2018 Euflexxa 20 Ma r, 2018 2 mL hydroxychloroquine sulfate 200 mg oral tablet (20 sources) Antimalarial, Antirheumatic Agent Start: 01-10-2022 End: 05-30-2022 take 1 tablet by mouth twice daily, then take 1 tablet by mouth once daily at mealtime hydrOXYchloroQUINE (PLAQUENIL) 200 mg tablet ALTERNATE BETWEEN 1 TABLET BY MOUTH TWICE DAILY AND 1 TABLET ONCE DAILY WITH FOOD. GET YEARLY EYE EXAM. 0 01/10/2022 05/30/2022 Discontinued (Course of therapy completed) Comment on above: ALTERNATE BETWEEN 1 TABLET BY MOUTH TWICE DAILY AND 1 TABLET ONCE DAILY WITH FOOD. GET YEARLY EYE EXAM. ibuprofen 600 mg oral tablet (20 sources) Nonsteroidal Anti-inflammatory Drug Start: 06-21-2020 End: 04-03-2023 take 4 tablets by mouth every twenty-four hours for pain Ibuprofen 600 mg tablet Discontinued 600 MG PO EVERY 4-6 HOURS as needed for pain 19 04June 21, 2020 1:00am April 03, 2023 12:15pm do not exceed 4 doses in a 24 hour period Inulin-Sorbitol (Fiber Supplement (Inulin)) 2 gram tablet,chewable (17 sources) Start: 07-13-2024 End: 09-09-2024 take 1 tablet by mouth once daily Inulin-Sorbitol (Fiber Supplement (Inulin)) 2 gram tablet,chewable Discontinued 5 TAB PO Daily July 13, 2024 1:00am September 09, 2024 10:57am Start: 07-13-2024 take 1 tablet by garland once daily Inulin-Sorbitol (Fiber Supplement (Inulin)) 2 gram tablet,chewable Active 5 TAB PO Daily July 13, 2024 12:00am ipratropium bromide 0.2 mg/ml inhalation solution (20 sources) Anticholinergic Start: 01-16-2023 End: 04-03-2023 take 1 mL by inhalation four times daily Ipratropium [place] 0.02 % Solution Discontinued 2.5 ML INHALATION Four times daily January 16, 2023 12:00am April 03, 2023 12:15pm Start: 01-16-2023 End: 04-03-2023 take 1 mL by inhalation four times daily Ipratropium [place] Discontinued 2.5 ML INHALATION Four times daily January 15, 2023 11:00pm April 03, 2023 11:15am Start: 2021 ipratropium (A TROVENT) 0.02 % nebulizer solution Take 2.5 mLs by nebulization 4 times daily 150 mL 1 2021 Active iron sucrose 300 mg in NaCl 0.9% 250 mL (VENOFER) (3 sources) Start: 01-06-2025 End: 01-06-2025 300 mg, INTRAVENOUS, at 166. 67 mL/hr, Administer over 90 Minutes, ONCE, 1 dose, On Sat01/06/25 at 1000, Please conduct a 30 minute post dose observation. Start: 12-30-2024 End: 12-30-2024 300 mg, INTRAVENOUS, at 166. 67 mL/hr, Administer over 90 Minutes, ONCE, 1 dose, On Sat12/30/24 at 0930, Please conduct a 30 minute post dose observation. Start: 12-22-2024 End: 12-22-2024 300 mg, INTRAVENOUS, at 166. 67 mL/hr, Administer over 90 Minutes, ONCE, 1 dose, On Sat12/22/24 at 1130, Please conduct a 30 minute post dose observation. iv contrast (will be provided with radiology test) (4 sources) Start: 02-16-2025 End: 02-17-2025 inject 1 dose intravenously once iv contrast (will be provided with radiology test) CTA ABD/PEL - No IV access, insert saline lock prior to the sedation, infusion, injection for imaging exam. Discontinue saline lock post exam. If Pt. has a central line or IVAD, may access for administration according to line specific nursing protocol. Once exam is complete flush line and de-access according to line specific nursing protocol in the CT contrast administration guidelines link. 1 each 02/16/2025 02/17/2025 Start: 08-17-2024 End: 08-17-2024 iv contrast (will be provide d with radiology test) CT Chest ABD/PEL-Inject, intravenously, once for 1 dose.No IV access, insert saline lock prior to the beginning of sedation, infusion, injection of imaging exam. Discontinue saline lock post exam. If Pt. has a central line or IVAD, may access for administration according to line specific nursing protocol. Once exam is complete flush line and de-access according to line specific nursing protocol in the CT contrast administration guidelines link. 1 Each 08/17/2024 08/17/2024 Discontinued Start: 05-01-2022 End: 05-02-2022 inject 1 dose intravenously once iv contrast (will be provided with radiology test) MRI Brain Inject, intravenously, once for 1 dose.No IV access, insert saline lock prior to beginning of sedation, infusion, injection of imaging exam.Discontinue saline lock post exam. If Pt. has a central line or IVAD, may access for administration according to line specific nursing protocol.Once exam is complete flush line and de-access according to line specific nursing protocol in the MR contrast administration guidelines link 1 Each 0 05/01/2022 05/02/2022 Active Comment on above: MRI Brain Inject, intravenously, once fo r 1 dose.No IV access, insert saline lock prior to beginning of sedation, infusion, injection of imaging exam.Discontinue saline lock post exam. If Pt. has a central line or IVAD, may access for administration according to line specific nursing protocol.Once exam is complete flush line and de-access according to line specific nursing protocol in the MR contrast administration guidelines link L.Rhamnosus-B.An imalis (Weave) 3 billion cell capsule (17 sources) Start: 06-15-20 24 End: 10-16-19 25 take 3 capsules by mouth once daily L.Rhamnosus-B.Animal is (Weave) 3 billion cell capsule Discontinued 1 CAP PO Daily June 15, 2024 1:00am October 15, 2024 7:57am Start: 06-15-2024 take 3 capsules by m outh once daily L.Rhamnosus-B.Animalis (IronPlanet [facility]) 3 billion cell capsule Active 1 CAP PO Daily June 15, 2024 1:00am Start: 06-15-2024 take 3 capsules by m outh once daily L.Rhamnosus-B.Animalis ([facility] [employer]) 3 billion cell capsule Active 1 CAP PO Daily June 15, 2024 12:00am linaclotide 0.072 mg oral capsule (20 sources) Guanylate Cyclase-C Agonist Start: 06-15-2024 End: 07-13-2024 take 1 capsule by mouth once daily in the morning Linaclotide (Linzess) 72 mcg capsule Discontinued 72 MCG PO Every morning June 15, 2024 1:00am July 13, 2024 12:48pm Start: 03-29-2022 End: 10-01-2024 Linzess 290 MCG capsule 03/02 Active Start: 03-28-2022 Linzess 290 MC G 1 capsule at least 30 minutes before the first meal of the day on an empty stomach Orally Once a day for 30 day(s) prn Mar, Active Linzess 72 MCG 1 capsule at least 30 minutes before the first meal of the day on an empty stomach Orally Once a day Active Linzess 72 MCG 1 capsule at least 30 minutes before the first meal of the day on an empty stomach Orally Once a day Active magnesium glycinate 100 mg oral tablet (20 sources) Start: 02-06-2018 End: 01-16-2023 Magnesium Glycinate 100 mg T ablet Discontinued 600 MG PO Daily at bedtime February 06, 2018 12:00am January 16, 2023 11:55am Start: 02-06-2018 End: 01-16-2023 take 600 mg by mouth once daily at bedtime Magnesium Glycinate Discontinued 600 MG PO Daily at bedtime February 05, 2018 11:00pm January 16, 2023 10:55am metFORMIN hydrochloride 500 mg oral tablet (20 sources) Biguanide Start: 02-06-2018 End: 11-10-2018 take 1 tablet by mouth once daily Metformin 500 mg Tablet Discontinued 500 MG PO Daily February 06, 2018 12:00am November 10, 2018 11:21am methylPREDNISolone 4 mg oral tablet (9 sources) Corticosteroid Start: 08-20-2024 End: 09-09-2024 Methylprednisolone (Medrol (Ranjith)) 4 mg tablets,dose pack Discontinued 4 MG PO as directed August 20, 2024 1:00am September 09, 2024 10:58am ondansetron 4 mg oral tablet (16 sources) Serotonin-3 Receptor Antagonist Start: 07-16-2024 End: 07-30-2024 take 1 tablet by mouth every eight hours as needed for nausea Ondansetron Hcl 4 mg tablet Discontinued 4 MG PO Q8H as needed for Nausea July 16, 2024 1:00am July 30, 2024 2:09pm do not reconcile until DOS:07/27/24. MED TO BED oxyCODONE hydrochloride 5 mg oral tablet (20 sources) Opioid Agonist Start: 07-30-2024 End: 12-07-2024 take 1 tablet by mouth every six hours as needed for pain Oxycodone 5 mg tablet Discontinued 5 MG PO Q6H as needed for Pain 20 August 07, 2024 October 01, 2024 9:44am Start: 07-16-2024 End: 07-30-2024 take 1 tablet by mouth every four hours as needed for pain Oxycodone 5 mg tablet Discontinued 5 MG PO Q4H as needed for Pain 42 July 16, 2024 July 30, 2024 2:08pm do not reconcile until DOS:07/27/24. MED TO BED polyethylene glycol 3350 81152 mg powder for oral solution (20 sources) Osmotic Laxative Start: 07-16-2024 End: 10-15-2024 Polyethylene Glycol 3350 (Miralax) 17 gram/dose powder Discontinued 17 GM PO daily 07 30July 30, 2024 2:07pm October 15, 2024 7:58am 1 packed mixed with 8 ounces of fluid. Rx Discharge Order Notice (11 sources) Start: 07-30-2024 End: 09-09-2024 Rx Discharge Order Notice Discontinued 1 EACH MISCELLANE Once July 30, 2024 1:00am September 09, 2024 10:59am Start: 07-30-2024 Rx Discharge O rder Notice Active 1 EACH MISCELLANE Once July 30, 2024 12:00am Start: 07-30-2024 Rx Discharge O rder Notice Active 1 ea miscellaneous Once July 30, 2024 12:00am sodium chloride 9 mg/ml inhalation solution (16 sources) End: 05-30-2022 sodium chloride 0.9 % nebulizer solution Use 3 mL via nebulizer as needed. 0 05/30/2022 Discontinued (Course of therapy completed) Comment on above: Use 3 mL via nebuliz er as needed. technetium 99m DTPA solution 35 millicurie (1 source) Start: 04-04-2022 End: 04-04-2022 technetium 99m DTPA solution 35 millicurie technetium albumin aggregated (MAA) solution 4 millicurie (1 source) Start: 04-04-2022 End: 04-04-2022 technetium albumin aggregated (MAA) solution 4 millicurie traMADol hydrochloride 50 mg oral tablet (20 sources) Opioid Agonist Start: 08-07-2024 End: 09-21-2024 take 1 tablet by mouth every six hours as needed for pain Tramadol 50 mg tablet Discontinued 50 MG PO q6h as needed for moderate Pain 30 August 07, 2024 1:00am September 09, 2024 10:59am Start: 07-16-2024 End: 07-30-2024 take 1 tablet by mouth every six hours as needed for pain Tramadol 50 mg tablet Discontinued 50 MG PO q6h as needed for Pain 28 July 16, 2024 1:00am July 30, 2024 2:09pm do not reconcile until DOS:07/27/24. MED TO BED Start: 03-23-2024 End: 04-21-2024 take 1 tablet by mouth twice daily as needed for pain Tramadol 50 mg tablet Discontinued 50 MG PO Twice daily as needed for pain 30 March 23, 2024 11:08am April 21, 2024 7:45am traZODone hydrochloride 50 mg oral tablet (20 sources) Serotonin Reuptake Inhibitor Start: 02-06-2018 End: 11-10-2018 take 1 tablet by mouth once daily at bedtime Trazodone 50 mg Tablet Discontinued 50 MG PO Daily at bedtime February 06, 2018 12:00am November 10, 2018 11:22am triamcinolone acetonide 40 mg/ml injectable suspension (20 sources) Corticosteroid Start: 01-10-2023 Kenalog-40 Mar, 120 mg Start: 11-16-2020 Kenalog -40 mg October, 40 mg Start: 10-01-2018 Kenalog -40 mg Sep, 40 mg Start: 08-05-2018 Kenalog -40 mg Aug, 40 mg Vitamin B Complex Tablet (17 sources) Start: 02-06-2018 End: 01-16-2023 take 1 tablet by mouth once daily Vitamin B Complex Tablet Discontinued 1 TAB PO Daily February 06, 2018 12:00am January 16, 2023 11:59am Start: 02-06-2018 End: 01-16-2023 take 1 tablet by mouth once daily Vitamin B Complex Tablet Discontinued 1 TAB PO Daily February 05, 2018 11:00pm January 16, 2023 10:59am Problems Active Problems Problem Classification Problem Date Documented Date Episodic/Chronic Abdominal hernia (1 source) Diaphragmatic hernia without obstruction or gangrene Episodic Acute and unspecified renal failure (2 sources) Acute injury of kidney; Translations: [JIMMIE (acute kidney injury) (HCC)] Acute cerebrovascular disease (20 sources) Cerebrovascular accident; Translations: [Cerebral infarction, unspecified] Onset: 6 03-01-2016 Chronic Aortic; peripheral; and visceral artery aneurysms (5 sources) Aneurysm of infrarenal abdominal aorta ; Translations: [Infrarenal abdominal aortic aneurysm (AAA) without rupture] 02-22-2025 Chronic Asthma (20 sources) Asthma; Translations: [Mild persistent asthma] Onset: 2 Resolved: 1 08-20-2011 Chronic Cancer of breast (20 sources) Intraductal carcinoma in situ of right breast; Translations: [Intraductal carcinoma in situ of right breast] Onset: 0 07-27-2020 Chronic Cancer of breast (2 sources) Intraductal carcinoma in situ of right breast; Translations: [Ductal carcinoma in situ (DCIS) of right breast] Onset: 0 07-27-2020 Cancer of bronchus; lung (20 sources) Malignant tumor of lung; Translations: [Malignant neoplasm of unspecified part of unspecified bronchus or lung] Onset: 2 Chronic Cancer of bronchus; lung (2 sources) History of malignant neoplasm of thoracic cavity structure; Translations: [Personal history of other malignant neoplasm of bronchus and lung] Onset: 5 02-22-2025 Episodic Cancer; other respiratory and intrathoracic (4 sources) Malignant neoplasm of lower respiratory tract 08-10-2024 Chronic Cardiac dysrhythmias (20 sources) Atrial fibrillation; Translations: [Unspecified atrial fibrillation] Onset: 3 12-01-2012 Chronic Cataract (11 sources) After-cataract of left eye; Translations: [Other secondary cataract, left eye] Onset: 4 12-31-2023 Chronic Chronic kidney disease (20 sources) Chronic kidney disease stage 3; Translations: [Chronic renal insufficiency, stage 3 (moderate)] Onset: 1 07-18-2020 Chronic Chronic kidney disease (2 sources) Chronic kidney disease; Translations: [Chronic kidney disease, stage 3 unspecified (HCC)] Onset: 2 Coagulation and hemorrhagic disorders (13 sources) Hemorrhagic disorder due to circulating anticoagulants; Translations: [Hemorrhagic disorder due to extrinsic circulating anticoagulants] Onset: 3 02-06-2023 Chronic Congestive heart failure; nonhypertensive (20 sources) Chronic diastolic heart failure; Translations: [Chronic diastolic (congestive) heart failure] Onset: 9 05-18-2019 Chronic Comment on above: since having the CAB G Coronary atherosclerosis and other heart disease (20 sources) Coronary arteriosclerosis; Translations: [Atherosclerotic heart disease of elem coronary artery without angina pectoris] Onset: 3 12-01-2012 Chronic Comment on above: Problem List clean-u p per request of Phys. EHR Cmte Deficiency and other anemia (6 sources) Iron deficiency anemia due to blood loss; Translations: [Iron deficiency anemia secondary to blood loss (chronic)] 12-14-2024 Chronic Deficiency and other anemia (1 source) Iron deficiency anemia secondary to blood loss (chronic); Translations: [Iron deficiency anemia due to chronic blood loss] Onset: 5 Chronic Deficiency and other anemia (20 sources) Anemia; Translations: [Anemia, unspecified] 06-15-2024 Episodic Deficiency and other anemia (20 sources) Anemia, unspecified; Translations: [Anemia, unspecified] Onset: 4 06-15-2024 Episodic Deficiency and other anemia (1 source) Normocytic anemia; Translations: [Anemia, unspecified] 11-30-2024 Episodic Deficiency and other anemia (15 sources) Iron deficiency anemia; Translations: [Other iron deficiency anemias] Onset: 5 11-30-2024 Episodic Deficiency and other anemia (1 source) Other iron deficiency anemias; Translations: [Other iron deficiency anemias] Onset: 5 Episodic Deficiency and other anemia (1 source) Iron deficiency anemia, unspecified; Translations: [Iron deficiency anemia, unspecified iron deficiency anemia type] Onset: 5 Episodic Diabetes mellitus without complication (2 sources) Type 2 diabetes mellitus; Translations: [Type 2 diabetes mellitus without complications] Onset: 5 11-30-2024 Chronic Disorders of lipid metabolism (20 sources) Hypercholesterolemia; Translations: [Pure hypercholesterolemia, unspecified] Onset: 3 10-17-2020 Chronic Esophageal disorders (20 sources) Gastroesophageal reflux disease; Translations: [Gastro-esophageal reflux disease without esophagitis] Onset: 3 01-02-2013 Chronic Essential hypertension (20 sources) Hypertensive disorder; Translations: [Essential (primary) hypertension] Onset: 5 01-28-2019 Chronic Gastritis and duodenitis (7 sources) Atrophic gastritis; Translations: [Unspecified chronic gastritis without bleeding] Chronic Gastrointestinal hemorrhage (19 sources) Gastrointestinal hemorrhage; Translations: [Hemorrhage of anus and rectum] Episodic Genitourinary symptoms and ill-defined conditions (17 sources) Stress incontinence (female) (male); Translations: [Urge incontinence] Onset: 2 Chronic Heart valve disorders (20 sources) Aortic valve stenosis; Translations: [Nonrheumatic aortic (valve) stenosis] Onset: 3 Resolved: 8 11-04-2017 Chronic Comment on above: Problem List clean-u p per request of Phys. 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; Translations: [Chronic and other pulmonary manifestations due to radiation] Onset: 4 08-26-2023 Chronic Nausea and vomiting (1 source) Vomiting, unspecified Episodic Nonmalignant breast conditions (13 sources) Fibrocystic disease of breast; Translations: [Diffuse cystic mastopathy of unspecified breast] Onset: 3 02-06-2023 Chronic Nonmalignant breast conditions (2 sources) Mastodynia of right breast; Translations: [Breast pain, right] Nonspecific chest pain (1 source) Chest wall pain; Translations: [Other chest pain] Episodic Nutritional deficiencies (20 sources) Vitamin D deficiency; Translations: [Vitamin D deficiency, unspecified] Onset: 1 10-17-2020 Chronic Occlusion or stenosis of precerebral arteries (15 sources) Bilateral stenosis of carotid arteries; Translations: [Occlusion and stenosis of bilateral carotid arteries] Onset: 3 Chronic Osteoarthritis (20 sources) Osteoarthritis; Translations: [Unspecified osteoarthritis, unspecified site] Onset: 4 Resolved: 8 02-27-2018 Chronic Comment on above: Risks, benefits, and alternatives of the procedure we explained to patient. Patient agrees to proceed. The skin over the left knee joint, was prepped using standard sterile technique. Using a 20g needle, Zilretta 32 MG was injected. Patient tolerated procedure well with no apparent complications. Osteoarthritis (13 sources) Osteoarthritis of right knee joint; Translations: [Primary osteoarthritis of right knee] Onset: 4 05-19-2014 Osteoporosis (20 sources) Osteoporosis; Translations: [Age-related osteoporosis without current pathological fracture] Onset: 8 12-01-2012 Chronic Other aftercare (10 sources) Patient encounter status; Translations: [Aftercare following joint replacement surgery] 08-17-2024 Chronic Other aftercare (20 sources) Aftercare following joint replacement surgery; Translations: [Aftercare following joint replacement] Onset: 5 08-19-2024 Chronic Other aftercare (2 sources) Patient encounter status; Translations: [Encounter for therapeutic drug level monitoring] Episodic Other aftercare (1 source) Post-discharge follow-up; Translations: [Encounter for follow-up examination after completed treatment for conditions other than malignant neoplasm] Episodic Other aftercare (17 sources) Long-term current use of drug therapy; Translations: [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] 06-02-2024 Episodic Other aftercare (1 source) [facility] (current) use of anticoagulants; Translations: [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] Onset: 5 Episodic Other and ill-defined heart disease (14 sources) Heart disease; Translations: [Heart disease, unspecified] Onset: 3 01-28-2019 Chronic Other and unspecified benign neoplasm (19 sources) Gastric polyp; Translations: [Polyp of stomach and duodenum] Episodic Other and unspecified benign neoplasm (19 sources) History of polyp of colon; Translations: [Personal history of colonic polyps] Episodic Other and unspecified benign neoplasm (1 source) Polyp of stomach and duodenum Episodic Other and unspecified benign neoplasm (2 sources) Skin lesion; Translations: [Hemangioma of skin and subcutaneous tissue] 11-05-2024 Episodic Other bone disease and musculoskeletal deformities (1 source) Osteochondropathy; Translations: [Osteochondropathy, unspecified of unspecified site] Onset: 8 02-06-2023 Chronic Other circulatory disease (1 source) Personal history of other diseases of the circulatory system; Translations: [Hx of aortic valve repair] Onset: 2 Episodic Other circulatory disease (2 sources) Spider nevus; Translations: [Nevus, non-neoplastic] 11-05-2024 Episodic Other connective tissue disease (20 sources) Polymyalgia rheumatica; Translations: [Polymyalgia rheumatica] Onset: 1 07-18-2020 Chronic Other connective tissue disease (20 sources) History of total knee arthroplasty; Translations: [Presence of unspecified artificial knee joint] 07-28-2024 Chronic Other connective tissue disease (11 sources) Presence of unspecified artificial knee joint; Translations: [Knee joint replacement] Onset: 5 07-28-2024 Chronic Other connective tissue disease (11 sources) History of revision of right total knee arthroplasty; Translations: [Presence of right artificial knee joint] 07-29-2024 Chronic Other connective tissue disease (20 sources) Presence of left artificial knee joint; Translations: [Knee joint replacement] Onset: 5 07-28-2024 Chronic Other connective tissue disease (11 sources) Presence of right artificial knee joint; Translations: [Knee joint replacement] Onset: 5 08-02-2024 Chronic Other connective tissue disease (1 source) Polymyalgia rheumatica; Translations: [Polymyalgia rheumatica] Onset: 1 Chronic Other diseases of kidney and ureters (20 sources) Secondary hyperparathyroidism; Translations: [Secondary hyperparathyroidism of renal origin] Onset: 1 2021 Chronic Other diseases of kidney and ureters (1 source) Acquired renal cyst without neoplastic change; Translations: [Cyst of kidney, acquired] Onset: 2 Episodic Other eye disorders (4 sources) Cyst of left lower eyelid; Translations: [Cysts of left lower eyelid] Onset: 5 03-09-2025 Episodic Other eye disorders (4 sources) Disorder of eyelid; Translations: [Other specified disorders of eyelid] Onset: 5 03-09-2025 Episodic Other female genital disorders (13 sources) Pain in female genitalia on intercourse; Translations: [Unspecified dyspareunia] Onset: 3 02-06-2023 Chronic Other female genital disorders (13 sources) Postcoital bleeding; Translations: [Postcoital and contact bleeding] Onset: 3 02-06-2023 Chronic Other gastrointestinal disorders (20 sources) Irritable bowel syndrome characterized by constipation; Translations: [Irritable bowel syndrome with constipation] 06-15-2024 Chronic Other gastrointestinal disorders (20 sources) Irritable bowel syndrome with constipation; Translations: [Irritable bowel syndrome] Onset: 5 Chronic Other gastrointestinal disorders (19 sources) Incontinence of feces; Translations: [Full incontinence of feces] Episodic Other gastrointestinal disorders (19 sources) Flatulence, eructation and gas pain; Translations: [Gas pain] Episodic Other gastrointestinal disorders (19 sources) Abnormal feces; Translations: [Other fecal abnormalities] Episodic Other gastrointestinal disorders (3 sources) Abdominal distension (gaseous) Episodic Other gastrointestinal disorders (1 source) Flatulence Episodic Other gastrointestinal disorders (12 sources) Dysphagia; Translations: [Dysphagia, unspecified] Episodic Other gastrointestinal disorders (1 source) Dysphagia, unspecified Episodic Other lower respiratory disease (2 sources) Nodule of lung; Translations: [Solitary pulmonary nodule] Episodic Other lower respiratory disease (2 sources) Solitary pulmonary nodule; Translations: [Solitary pulmonary nodule] Onset: 2 Episodic Other lower respiratory disease (7 sources) Shortness of breath; Translations: [Shortness of breath] Onset: 2 Episodic Other lower respiratory disease (1 source) Dyspnea on exertion; Translations: [Other forms of dyspnea] Episodic Other lower respiratory disease (2 sources) Other forms of dyspnea; Translations: [Other forms of dyspnea] Onset: 2 Episodic Other nervous system disorders (19 sources) Lesion of ulnar nerve, right upper limb; Translations: [Cubital tunnel syndrome on right] Chronic Other nervous system disorders (17 sources) Bilateral carpal tunnel syndrome; Translations: [Carpal tunnel syndrome, bilateral upper limbs] Chronic Other nervous system disorders (2 sources) Carpal tunnel syndrome, bilateral upper limbs Chronic Other nervous system disorders (20 sources) Chronic pain; Translations: [Other chronic pain] 09-10-2023 Chronic Other nervous system disorders (20 sources) Other chronic pain; Translations: [Other chronic pain] Onset: 5 Chronic Other nervous system disorders (13 sources) Aphasia; Translations: [Aphasia] Onset: 6 02-07-2023 Chronic Other nervous system disorders (1 source) Other acute postprocedural pain; Translations: [Post-op pain] Onset: 2 Episodic Other non-epithelial cancer of skin (2 sources) Basal cell carcinoma of lower eyelid; Translations: [Basal cell carcinoma of skin of left lower eyelid, including canthus] Onset: 5 03-26-2025 Episodic Other non-traumatic joint disorders (1 source) Acute arthritis 09-11-2013 Chronic Other non-traumatic joint disorders (1 source) Acute arthropathy; Translations: [Arthropathy, unspecified] Onset: 3 02-06-2023 Chronic Other non-traumatic joint disorders (1 source) Chronic ankle pain; Translations: [Pain in left ankle and joints of left foot] Episodic Other non-traumatic joint disorders (20 sources) Hip pain; Translations: [Pain in right hip] Episodic Other non-traumatic joint disorders (1 source) Finger joint stiff; Translations: [Stiffness of right hand, not elsewhere classified] Episodic Other non-traumatic joint disorders (4 sources) Pain in right hip; Translations: [Pain in joint, pelvic region and thigh] 12-12-2023 Episodic Other nutritional; endocrine; and metabolic disorders (13 sources) Overweight; Translations: [Over weight] Onset: 8 11-04-2017 Chronic Other nutritional; endocrine; and metabolic disorders (20 sources) Obese class I; Translations: [Body mass index (BMI) 31.0-31.9, adult] Onset: 2 Chronic Other nutritional; endocrine; and metabolic disorders (20 sources) Body mass index 30+ - obesity; Translations: [Body mass index (BMI) 32.0-32.9, adult] Onset: 3 10-11-2021 Chronic Other skin disorders (2 sources) Seborrheic keratosis; Translations: [Other seborrheic keratosis] 11-05-2024 Episodic Other skin disorders (2 sources) Lentiginosis; Translations: [Other melanin hyperpigmentation] 11-05-2024 Episodic Other skin disorders (2 sources) Inflamed seborrheic keratosis; Translations: [Inflamed seborrheic keratosis] 11-05-2024 Episodic Residual codes; unclassified (20 sources) Sleep apnea; Translations: [Sleep apnea, unspecified] Onset: 2 08-20-2011 Chronic Comment on above: uses C PAP cpap Residual codes; unclassified (20 sources) Obstructive sleep apnea syndrome; Translations: [Obstructive sleep apnea (adult) (pediatric)] Onset: 6 05-30-2022 Chronic Residual codes; unclassified (2 sources) Obstructive sleep apnea (adult) (pediatric); Translations: [JENNIFER (obstructive sleep apnea)] Onset: 2 Chronic Residual codes; unclassified (11 sources) Sleep apnea, unspecified; Translations: [Unspecified sleep apnea] Onset: 5 08-02-2024 Chronic Residual codes; unclassified (1 source) Postmenopausal state; Translations: [Asymptomatic age-related postmenopausal state] Episodic Residual codes; unclassified (1 source) Preoperative state; Translations: [Pre-operative clearance] Episodic Residual codes; unclassified (19 sources) Postprocedural state finding; Translations: [Other specified postprocedural states] Episodic Residual codes; unclassified (1 source) Other specified postprocedural states; Translations: [Hx of aortic valve repair] Onset: 2 Episodic Residual codes; unclassified (2 sources) Postoperative state; Translations: [Other specified postprocedural states] Episodic Residual codes; unclassified (2 sources) Localized edema; Translations: [Localized edema] Onset: 5 Episodic Residual codes; unclassified (1 source) Estrogen receptor positive status [ER+]; Translations: [Malignant neoplasm of right breast in female, estrogen receptor positive, unspecified site of breast (HCC)] Onset: 5 Episodic Thyroid disorders (20 sources) Acquired hypothyroidism; Translations: [Hypothyroidism, unspecified] Onset: 4 Chronic Unclassified (1 source) Asymptomatic microscopic hematuria 10-11-2021 Unclassified (1 source) Drug therapy finding 03-09-2020 Unclassified (3 sources) CHRN KIDNEY DISEASE STG 3 UNSP; Translations: [CHRN KIDNEY DISEASE STG 3 UNSP] Onset: 3 Unclassified (1 source) CONTACT W/AND (SUSP) EXPOS COVID-19; Translations: [CONTACT W/AND (SUSP) EXPOS COVID-19] Onset: 2 Unclassified (2 sources) Other persistent atrial fibrillation; Translations: [Other persistent atrial fibrillation] Onset: 4 Unclassified (1 source) Infrarenal abdominal aortic aneurysm (AAA) without rupture; Translations: [Infrarenal abdominal aortic aneurysm (AAA) without rupture] Onset: 5 Unclassified (1 source) Abdominal aortic aneurysm (AAA) without rupture, unspecified part; Translations: [Abdominal aortic aneurysm (AAA) without rupture, unspecified part] Onset: 5 Urinary tract infections (1 source) Chronic urinary tract infection 03-01-2016 Episodic Past or Other Problems Problem Classification Problem Date Documented Da te Episodic/Chronic Abdominal pain (16 sources) Right flank pain; Translations: [Unspecified abdominal pain] Onset: 12-04-2022 07-18-2020 Episodic Acquired foot deformities (13 sources) Acquired deformity of toe; Translations: [Acquired deformities of toe(s), unspecified, unspecified foot] Onset: 02-06-2023 02-06-2023 Episodic Administrative/social admission (20 sources) Other reduced mobility; Translations: [Impaired mobility and activities of daily living] Onset: 07-27-2024 07-28-2024 Episodic Calculus of urinary tract (20 sources) Kidney stone; Translations: [Calculus of kidney] Onset: 10-11-2021 Episodic Cancer of breast (20 sources) History of malignant neoplasm of breast; Translations: [Personal history of malignant neoplasm of breast] Onset: 07-18-2020 07-18-2020 Episodic Complication of device; implant or graft (20 sources) Prosthetic joint mechanical failure; Translations: [Broken internal joint prosthesis, other site, initial encounter] Onset: 07-27-2015 07-28-2015 Episodic Complications of surgical procedures or medical care (20 sources) Other complications of procedures, not elsewhere classified, initial encounter; Translations: [Non-healing surgical wound] Onset: 08-15-2023 03-18-2018 Episodic Fracture of lower limb (20 sources) Closed fracture of ankle; Translations: [Closed bimalleolar fracture] Onset: 08-15-2023 02-07-2018 Episodic Comment on above: Problem List clean-u p per request of Phys. EHR Cmte Genitourinary symptoms and ill-defined conditions (20 sources) Microscopic hematuria; Translations: [Other microscopic hematuria] Onset: 10-11-2021 Episodic Inflammation; infection of eye (except that caused by tuberculosis or sexually transmitteddisease) (11 sources) Blepharitis of upper and lower eyelids of bilateral eyes; Translations: [Unspecified blepharitis right eye, upper and lower eyelids] Onset: 12-31-2023 12-31-2023 Episodic Lymphadenitis (20 sources) Pelvic lymphadenopathy; Translations: [Lymphadenopathy] Onset: 07-18-2020 Resolved: 10-17-2020 07-18-2020 Episodic Nonmalignant breast conditions (20 sources) Pain of breast; Translations: [Mastodynia] Onset: 12-30-2013 Resolved: 02-27-2018 02-27-2018 Episodic Other aftercare (20 sources) Long-term current use of anticoagulant; Translations: [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] Onset: 02-23-2016 02-23-2016 Episodic Other aftercare (1 source) Other chcf (current) drug therapy; Translations: [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] Onset: 06-10-2024 Episodic Other circulatory disease (20 sources) History of cerebrovascular accident; Translations: [Personal history of transient ischemic attack (TIA), and cerebral infarction without residual deficits] Onset: 02-23-2016 02-23-2016 Episodic Other circulatory disease (12 sources) Low blood pressure; Translations: [Hypotension, unspecified] Onset: 12-31-2019 08-15-2023 Episodic Other connective tissue disease (20 sources) Acquired trigger finger; Translations: [Trigger finger, unspecified finger] Onset: 09-10-2012 Resolved: 05-08-2017 05-08-2017 Episodic Other connective tissue disease (1 source) Muscle pain Episodic Other connective tissue disease (1 source) Pain in limb; Translations: [Pain in unspecified limb] Onset: 02-06-2023 02-06-2023 Episodic Other connective tissue disease (13 sources) History of polymyalgia rheumatica; Translations: [Personal history of other diseases of the musculoskeletal system and connective tissue] Onset: 02-02-2020 02-07-2023 Episodic Other connective tissue disease (13 sources) Muscle weakness; Translations: [Muscle weakness (generalized)] Onset: 03-16-2016 02-07-2023 Episodic Other diseases of kidney and ureters (14 sources) Acquired renal cystic disease; Translations: [Cyst of kidney, acquired] Onset: 12-04-2022 10-11-2021 Episodic Other eye disorders (11 sources) Dry eyes; Translations: [Dry eye syndrome of bilateral lacrimal glands] Onset: 12-31-2023 12-31-2023 Episodic Other gastrointestinal disorders (20 sources) Constipation; Translations: [Constipation, unspecified] Onset: 01-02-2013 Resolved: 10-17-2020 01-02-2013 Episodic Other gastrointestinal disorders (1 source) Gas pain Onset: 12-27-2021 Resolved: 12-27-2021 Episodic Other gastrointestinal disorders (20 sources) Stool DNA-based colorectal cancer screening positive; Translations: [Other fecal abnormalities] Onset: 08-15-2023 11-19-2018 Episodic Comment on above: Problem List clean-u p per request of Phys. EHR Cmte Other infections; including parasitic (20 sources) Disorder due to infection; Translations: [Unspecified infectious disease] Onset: 08-15-2023 04-15-2018 Episodic Other lower respiratory disease (15 sources) Dyspnea; Translations: [Other forms of dyspnea] Onset: 01-21-2020 Episodic Other lower respiratory disease (20 sources) Lung mass; Translations: [Other nonspecific abnormal finding of lung field] Onset: 06-13-2022 Resolved: 06-22-2022 Episodic Other lower respiratory disease (4 sources) Dyspnea, unspecified; Translations: [DYSPNEA UNSPECIFIED] Onset: 11-08-2021 Episodic Other lower respiratory disease (1 source) Other nonspecific abnormal finding of lung field; Translations: [Other nonspecific abnormal finding of lung field] Onset: 04-25-2022 Episodic Other non-traumatic joint disorders (1 source) Shoulder pain Episodic Other non-traumatic joint disorders (20 sources) Pain in left knee; Translations: [Left knee pain] Onset: 07-27-2024 Episodic Other non-traumatic joint disorders (13 sources) Arthralgia of the ankle and/or foot; Translations: [Pain in left ankle and joints of left foot] Onset: 02-06-2023 02-06-2023 Episodic Other nutritional; endocrine; and metabolic disorders (20 sources) Overweight; Translations: [Overweight] Onset: 11-04-2017 11-04-2017 Episodic Other screening for suspected conditions (not mental disorders or infectious disease) (20 sources) Abnormal renal function; Translations: [Stool DNA-based colorectal cancer screening positive] Onset: 12-04-2022 03-09-2020 Episodic Other skin disorders (13 sources) Callosity; Translations: [Corns and callosities] Onset: 02-06-2023 02-06-2023 Episodic Residual codes; unclassified (20 sources) Insomnia; Translations: [Insomnia, unspecified] Onset: 01-02-2013 01-02-2013 Episodic Residual codes; unclassified (20 sources) Edema of lower extremity; Translations: [Localized edema] Onset: 08-15-2023 03-18-2018 Episodic Residual codes; unclassified (20 sources) History of aortic valve repair; Translations: [Other specified postprocedural states] Onset: 05-30-2022 05-30-2022 Episodic Residual codes; unclassified (1 source) Other specified health status; Translations: [Other specified health status] Onset: 07-27-2024 Episodic Screening and history of mental health and substance abuse codes (20 sources) Ex-smoker; Translations: [Personal history of nicotine dependence] Onset: 05-30-2022 03-09-2020 Episodic Unclassified (3 sources) Patient encounter status; Translations: [Encounter for imaging to assess osteoporosis] 02-24-2025 Unclassified (1 source) CHRN KIDNEY DISEASE STG 3 UNSP; Translations: [CHRN KIDNEY DISEASE STG 3 UNSP] Onset: 10-18-2022 Unclassified (1 source) Esophagitis K20.90 Unclassified (8 sources) Onset: 07-24-2022 Resolved: 11-11-2023 11-11-2023 Results Test Name Value Interpretation Reference Range Facility Surgical Pathology Reporton 03-31-2025 Surgical Pathology Report [address] [address]- Surgical Pathology Report Collected Date/Time: 03/26/2025 13:30 EDT Pathologist: Nico PAPPAS PhD, Mark Gomez Received Date/Time: 03/28/2025 18:00 EDT Jovan Lema DO, DO, Jonathan 07 Surgical Pathology Report - 03/31/2025 12:41 EDT - Auth (Verified) Final Diagnosis LESION, LEFT UPPER CHEEK, EXCISION: - BASAL CELL CARCINOMA, MICRONODULAR. - EXTENDING TO PERIPHERAL AND DEEP MARGIN. Comment: Tumor invades reticular dermis. No lymphovascular invasion is identified on submitted sections. This report was communicated to physicians office within 7 days after the procedure. PQRS: [id number] (Electronic Signature) Mark Walsh MD PhD 03/31/2025 12:41 Clinical Information Increased growth/scabbing - LLL Pre-Op Diagnosis: Suspicious lesion left upper cheek Procedure: Wedge incisional biopsy Post-Op Diagnosis: _ Specimen(s) Received Skin Lesion, left upper cheek Gross Description Received in formalin labeled with patient name, number, and no site identification is a partial ellipse of davila skin and soft tissue measuring 0.5 x 0.2 cm and contains approximately 0.1 cm of underlying tissue. The tissue has a davila smooth appearance. It is entirely submitted in one cassette. (DC) DC:[facility] Microscopic Description Microscopic examination performed unless gross only specified. Quality was accessed and acceptable. This report was transcribed using voice recognition technology and might contain unintended computerized sanforizer errors. Normal [facility] Comment on above: Performed By: #### [id number] #### [facility] [address] [place] [address] Excision of Benign Lesion < 0.5 cmon 03-26-2025 [facility] Radiology Study observation (narrative) [facility] CNOVon 02-26-2025 CNOV Office Visit ([facility] ) ----- JEMIMA BRADFORD ([id number]) 1940 F Date Time Provider Department 02/26/25 9:45 AM [facility] During your visit today, we recorded the following information about you: Binu Upton MD 02/26/2025 10:23 AM Signed [facility] [place] DEPARTMENT OF VASCULAR SURGERY OUTPATIENT VISIT TYPE CONSULTATION PRIMARY CARE PHYSICIAN: Jasmyne Casillas, JADON, LAMBSKIN TRIMMER REFERRING PROVIDER: Katie Cook [address] [place] [address] [place] [address] Consult requested for an opinion regarding the evaluation and treatment of the above. My final impression and recommendations will be communicated back to the requesting physician by way of the shared medical record or letter via US mail. CHIEF COMPLAINT AAA HISTORY OF PRESENT ILLNESS: The patient is an 84-year-old female with a history of cancer, presenting for evaluation of a penetrating atherosclerotic ulcer (KARINE) identified on a recent CT scan. The patient underwent a PET scan in 2021 for cancer follow-up, which revealed a KARINE. A recent CT scan confirmed the presence of the KARINE, measuring 8 mm in depth and 13 mm in length, with no significant growth observed over the past three years. She denies any symptoms such as abdominal pain, back pain, or flank pain. She has a history of smoking but has since quit. She denies any history of hypertension or diabetes. Tobacco Use: .5 packs/day, for 7 years. Quit 06/16/1971. 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 Aortic valve stenosis mild Arthritis Asthma controlled no inhalers Coronary artery disease Hypercholesteremia Hypertension Polymyalgia rheumatica (HCC) PAST SURGICAL HISTORY Procedure Laterality Date APPENDECTOMY 07/01/1978 ARTHROSCOPY KNEE MEDIAL RELEASE 2002,2010 rt AND Lt knee ARTHRP KNE CONDYLEANDPLATU MEDIALANDLAT COMPARTMENTS Right 07/01/2013 right x2 BREAST LUMPECTOMY HX BUNIONECTOMY, LAPIDUS-TYPE 07/01/2010 rt toe CHOLECYSTECTOMY 07/01/2005 COLONOSCOPY AND POLYPECTOMY 2004, 2005, 2009 x 3 CYSTO LASER TX URETERAL CALC 07/01/2009 stent placement CYSTO W/RETROGRADE x 6 DANDC (INCOMPLETE AB), ANY TRIMESTER 07/01/1974 EXCISE EXCESS SKIN TISSUE,ABDOMEN 07/01/1994 Abdominalplasty KNEE SURGERY HX Left 07/27/2024 LITHOTRIPSY PROC UNILATERAL 07/01/1985 rt kidney PAST SURGICAL HISTORY OF 12/03/2019 CABG 1v, cryomaze and AVr REMV CATARACT EXTRACAP,INSERT LENS STENT PLACEMENT 07/01/2003 LAD TONSILLECTOMY HX as child FAMILY HISTORY Problem Relation Age of Onset Heart Mother age 89 Diabetes Mother Coronary Artery Disease Mother Pancreatic Cancer Mother Heart Father age 75 Diabetes Father Stroke Father Breast Cancer Sister Breast Cancer Sister Arthritis Brother Diabetes Brother Heart disease Brother other (Bladder cancer) Brother Pancreatic Cancer Maternal Aunt SOCIAL HISTORY[1] Current Outpatient Medications Medication Sig Dispense Refill gabapentin (NEURONTIN) 300 mg capsule Take 300 mg by mouth. diphenhydrAMINE (BENADRYL) 50 mg capsule Take 1 capsule by mouth as directed for 1 dose. one (1) hour prior to exam. 1 capsule 0 atorvastatin (LIPITOR) 80 mg tablet Take 80 mg by mouth. bumetanide (BUMEX) 1 mg tablet Take 1 mg by mouth two times a day. montelukast (SINGULAIR) 10 mg tablet Take 10 mg by mouth once daily. metoprolol tartrate, short acting, (LOPRESSOR) 25 mg tablet Take 1/2 tablet by mouth twice daily. 180 tablet 3 levothyroxine (SYNTHROID) 50 mcg tablet levothyroxine 50 mcg tablet TAKE 1 TABLET BY MOUTH DAILY FOR HYPOTHYROIDISM apixaban (ELIQUIS) 5 mg tab(s) Eliquis 5 mg tablet Take 1 tablet twice a day by oral route for 90 days. calcium carbonate (CALTRATE) 600 mg calcium (1,500 mg) tab 600 mg. melatonin 10 mg tab 10 mg. spironolactone (ALDACTONE) 25 mg tablet Take 25 mg by mouth once daily. esomeprazole (NEXIUM) 40 mg capsule Take 40 mg by mouth as directed. Twice per week nitroglycerin sublingual (NITROQUICK) 0.4 mg SL tablet Dissolve 1 tablet under the tongue every 5 minutes as needed. 1 Bottle of 25 0 COQ10, UBIQUINOL, ORAL Take 1 tablet by mouth once daily. Chromium Picolinate 500 mcg cap Take 1 tablet by mouth once daily. MAGNESIUM ORAL Take 1 tablet by mouth once daily. 600mg No current facility-administered medications for this visit. ALLERGIES Allergen Reactions Biaxin [Clarithromy* Unknown Contrast Dye Shortness of Breath Nickel Unknown Nitrous Oxide Vomiting Synvisc [Hylan G-F * Swelling Thorazine [Chlorpro* Rash REVIEW OF SYSTEMS Negative unless specified in the HPI PHYSICAL EXAM Vitals: There were no vitals taken for this visit. General: Well developed, no acute distress Skin: No lesions; normal color, turgor HEENT: Normocephalic, atraumatic, e (more content not included)... Normal [facility] CT angio abdomen pelvison CT angio abdomen pelvis [facility] Main [place] [address] [place] [address] CT Scan Report Signed Patient: Jemima Bradford MR#: [id number] : 1940 Acct:[id number] Age/Sex: 84 / F ADM Date: 02/24/25 Loc: CT Room: Type: [facility] Attending Dr: Katie Cook PA-C Copies to: KATIE COOK PA-C Ordering Provider: KATIE COOK PA-C Date of Service: 02/24/25 CT/CT angio abdomen pelvis: Z01.818 CTA abdomen and pelvis . CLINICAL DATA: Newly diagnosed abdominal aortic aneurysm.. TECHNIQUE: CT of the abdomen and pelvis was initially performed without contrast. Intravenous contrast-enhanced CT angiography of the abdomen and pelvis was then performed. Axial, sagittal, coronal and volume-rendered three-dimensional reconstructions were created and reviewed. This CT exam was performed using one or more of the following dose reduction techniques: Automated exposure control, adjustment of the mA and/or kV according to patient size, or use of iterative reconstruction technique. COMPARISON: None. FINDINGS: Lung Bases: Respiratory motion. Bibasilar scarring. Organs:Gallbladder has been removed. Liver pancreas spleen and adrenal glands all appear unremarkable. Small cyst with layering calcification versus calyceal diverticulum right kidney. Left kidney demonstrates subcentimeter low attenuating lesion too small for accurate characterization. The abdominal aorta demonstrates moderate calcification with ectasia of the infrarenal abdominal aorta measuring 2.6 cm. No dissection or rupture is seen. No critical stenosis or occlusion is seen involving the major branch vessels of the abdominal aorta. There is mild diffuse sclerotic calcification of the branch vessels.[ GI: Small hiatal hernia. Distal stomach is grossly unremarkable. Small bowel appears nondilated. No acute colonic abnormality.[ Pelvis:[Urinary bladder is grossly unremarkable. Uterus is atrophic.] Peritoneum/Retroperitoneu m:No free air or free fluid or lymphadenopathy.[ Abd wall/Bones:No acute findings. Osseous structures demonstrate degenerative change.[ CT/CT angio abdomen pelvis IMPRESSION: Ectasia of the infrarenal abdominal aorta measuring 2.6 cm. No dissection or rupture is seen. No acute intra-abdominal pathology. Impression dictated by: Tuan Stubbs Jr., BekaOYasmin 02/24/2025 10:23 AM Dictation Location: [place] [address] Transcribed By: [facility] 02/24/25 1023 Dictated By: Tuan Stubbs Jr, DO 02/24/25 1019 Signed By: 02/24/25 1023 Normal [facility] Creatinineon 02-24-2025 GFR/1.73 sq M.predicted MDRD (S/P/Bld) [Vol rate/Area] 44.914 mL/min/{1.73_m2} Normal [facility] Comment on above: Result Comment: PERF ORMED BY: [place] [address] PATHOLOGIST TISSUE COORDINATOR CARLOS DE GUZMAN M.D. Performed By: #### C BC #### [address] #### FRUC #### [facility] , Creatinine [Mass/volume] in Serum or PlasmaOrdered By: KATIE COOK on 02-24-2025 Creatinine [Mass/Vol] 1.20 mg/dL Normal 0.60-1.20 [facility] Comment on above: Performed By: #### C BC #### [address] #### FRUC #### [facility] , Glomerular filtration rate [ Volume Rate/Area] in Serum, Plasma or Blood by CreatinineOrdered By: KATIE COOK on 02-24-2025 Glomerular filtration rate [Volume Rate/Area] in Serum, Plasma or Blood by Creatinine 44.914 mL/Min [facility] No Panel InformationOrdered By: KATIE COOK on 02-24-2025 Pharmacy Creatinine Clearance (Chem N/A [facility] CBC W Auto Differential pane l (Bld)on 02-22-2025 Basophils (Bld) [#/Vol] 0.05 10*3/uL [facility] Basophils/100 WBC (Bld) 0.7 % [facility] Differential cell count method Nom (Bld) Auto [facility] Eosinophils (Bld) [#/Vol] 0.20 10*3/uL [facility] Eosinophils/100 WBC (Bld) 3.0 % [facility] Erythrocyte distribution width (RBC) [Ratio] 17.5 % High 11.5 - 15.0 % [facility] Hematocrit (Bld) [Volume fraction] 28.3 % Low 36.0 - 46.0 % [facility] Hemoglobin (Bld) [Mass/Vol] 8.9 g/dL Low 11.5 - 15.5 g/dL [facility] Immature granulocytes (Bld) [#/Vol] [facility] Immature granulocytes/100 WBC (Bld) 0.1 % [facility] Lymphocytes (Bld) [#/Vol] 1.93 10*3/uL [facility] Lymphocytes/100 WBC (Bld) 28.7 % [facility] MCH (RBC) [Entitic mass] 27.3 pg 26.0 - 34.0 pg [facility] MCHC (RBC) [Mass/Vol] 31.4 g/dL 30.5 - 36.0 g/dL [facility] MCV (RBC) [Entitic vol] 86.8 fL 80.0 - 100.0 fL [facility] Monocytes (Bld) [#/Vol] 0.68 10*3/uL [facility] Monocytes/100 WBC (Bld) 10.1 % [facility] Neutrophils (Bld) [#/Vol] 3.85 10*3/uL [facility] Neutrophils/100 WBC (Bld) 57.4 % [facility] Nucleated RBC (Bld) [#/Vol] [facility] Nucleated RBC/100 WBC (Bld) [Ratio] 0.0 % /100 WBC [facility] Platelet mean volume (Bld) [Entitic vol] 9.4 fL 9.0 - 12.7 fL [facility] Platelets (Bld) [#/Vol] 208 10*3/uL [facility] Comment on above: Results checked and verified.No clot detected. RBC (Bld) [#/Vol] 3.26 10*6/uL Low 3.90 - 5.2 0 m/uL [facility] WBC (Bld) [#/Vol] 6.72 10*3/uL [facility] Basophils (Bld) [#/Vol] 0.05 10*3/uL Normal <0.11 [facility] Comment on above: Order Comment: Speci men Type: BLOOD SPECIMENOrdering Facility: [facility] Address: [address] [place] [address] Performed By: #### 5 7021-8, 21781-1 ####[facility] LABCLIA [id number] [place] [address] Basophils/100 WBC (Bld) 0.7 % Normal [facility] Comment on above: Order Comment: Speci men Type: BLOOD SPECIMENOrdering Facility: [facility] Address: [address] [place] [address] Performed By: #### 5 7021-8, 90685-3 ####[facility] LABCLIA [id number] [place] [address] Differential cell count method Nom (Bld) Auto Normal [facility] Comment on above: Order Comment: Speci men Type: BLOOD SPECIMENOrdering Facility: [facility] Address: [address] [place] [address] Performed By: #### 5 7021-8, 15792-7 ####[facility] LABCLIA [id number] [place] [address] Eosinophils (Bld) [#/Vol] 0.20 10*3/uL Normal <0.46 [facility] Comment on above: Order Comment: Speci men Type: BLOOD SPECIMENOrdering Facility: [facility] Address: [address] [place] [address] Performed By: #### 5 7021-8, 36276-7 ####[facility] LABCLIA [id number] [place] [address] Eosinophils/100 WBC (Bld) 3.0 % Normal [facility] Comment on above: Order Comment: Speci men Type: BLOOD SPECIMENOrdering Facility: [facility] Address: [address] [place] [address] Performed By: #### 5 7021-8, 77311-7 ####[facility] LABCLIA [id number] [place] [address] Erythrocyte distribution width (RBC) [Ratio] 17.5 % High 11.5-15.0 [facility] Comment on above: Order Comment: Speci men Type: BLOOD SPECIMENOrdering Facility: [facility] Address: [address] [place] [address] Performed By: #### 5 7021-8, 36462-5 ####[facility] LABCLIA [id number] [place] [address] Hematocrit (Bld) [Volume fraction] 28.3 % Low 36.0-46.0 [facility] Comment on above: Order Comment: Speci men Type: BLOOD SPECIMENOrdering Facility: [facility] Address: [address] [place] [address] Performed By: #### 5 7021-8, 63292-2 ####[facility] LABCLIA [id number] [place] [address] Hemoglobin (Bld) [Mass/Vol] 8.9 g/dL Low 11.5-15.5 [facility] Comment on above: Order Comment: Speci men Type: BLOOD SPECIMENOrdering Facility: [facility] Address: [address] [place] [address] Performed By: #### 5 7021-8, 06253-5 ####[facility] LABCLIA [id number] [place] [address] Immature granulocytes (Bld) [#/Vol] 10*3/uL Normal <0.10 [facility] Comment on above: Order Comment: Speci men Type: BLOOD SPECIMENOrdering Facility: [facility] Address: [address] [place] [address] Performed By: #### 5 7021-8, 50292-7 ####[facility] LABCLIA [id number] [place] [address] Immature granulocytes/100 WBC (Bld) 0.1 % Normal [facility] Comment on above: Order Comment: Speci men Type: BLOOD SPECIMENOrdering Facility: [facility] Address: [address] [place] [address] Performed By: #### 5 7021-8, 31168-3 ####[facility] LABCLIA [id number] [place] [address] Lymphocytes (Bld) [#/Vol] 1.93 10*3/uL Normal 1.00-4.00 [facility] Comment on above: Order Comment: Speci men Type: BLOOD SPECIMENOrdering Facility: [facility] Address: [address] [place] [address] Performed By: #### 5 7021-8, 35413-7 ####[facility] LABCLIA [id number] [place] [address] Lymphocytes/100 WBC (Bld) 28.7 % Normal [facility] Comment on above: Order Comment: Speci men Type: BLOOD SPECIMENOrdering Facility: [facility] Address: [address] [place] [address] Performed By: #### 5 7021-8, 17053-3 ####[facility] LABCLIA [id number] [place] [address] MCH (RBC) [Entitic mass] 27.3 pg Normal 26.0-34.0 [facility] Comment on above: Order Comment: Speci men Type: BLOOD SPECIMENOrdering Facility: [facility] Address: [address] [place] [address] Performed By: #### 5 7021-8, 78887-8 ####[facility] LABIA [id number] [place] [address] MCHC (RBC) [Mass/Vol] 31.4 g/dL Normal 30.5-36.0 [facility] Comment on above: Order Comment: Speci men Type: BLOOD SPECIMENOrdering Facility: [facility] Address: [address] [place] [address] Performed By: #### 5 7021-8, 26302-1 ####[facility] LABIA [id number] [place] [address] MCV (RBC) [Entitic vol] 86.8 fL Normal 80.0-100.0 [facility] Comment on above: Order Comment: Speci men Type: BLOOD SPECIMENOrdering Facility: [facility] Address: [address] [place] [address] Performed By: #### 5 7021-8, 88974-4 ####[facility] LABIA [id number] [place] [address] Monocytes (Bld) [#/Vol] 0.68 10*3/uL Normal <0.87 [facility] Comment on above: Order Comment: Speci men Type: BLOOD SPECIMENOrdering Facility: [facility] Address: [address] [place] [address] Performed By: #### 5 7021-8, 99763-8 ####[facility] LABCLIA [id number] [place] [address] Monocytes/100 WBC (Bld) 10.1 % Normal [facility] Comment on above: Order Comment: Speci men Type: BLOOD SPECIMENOrdering Facility: [facility] Address: [address] [place] [address] Performed By: #### 5 7021-8, 42391-1 ####[facility] LABCLIA [id number] [place] [address] Neutrophils (Bld) [#/Vol] 3.85 10*3/uL Normal 1.45-7.50 [facility] Comment on above: Order Comment: Speci men Type: BLOOD SPECIMENOrdering Facility: [facility] Address: [address] [place] [address] Performed By: #### 5 7021-8, 32138-0 ####[facility] LABIA [id number] [place] [address] Neutrophils/100 WBC (Bld) 57.4 % Normal [facility] Comment on above: Order Comment: Speci men Type: BLOOD SPECIMENOrdering Facility: [facility] Address: [address] [place], [place] [address] Performed By: #### 5 7021-8, 01466-3 ####[facility] LABCLIA [id number] [place] [address] Nucleated RBC (Bld) [#/Vol] 10*3/uL Normal <0.01 [facility] Comment on above: Order Comment: Speci men Type: BLOOD SPECIMENOrdering Facility: [facility] Address: [address] [place], [place] [address] Performed By: #### 5 7021-8, 86676-7 ####[facility] LABCLIA [id number] [place] [address] Nucleated RBC/100 WBC (Bld) [Ratio] 0.0 /100 WBC Normal [facility] Comment on above: Order Comment: Speci men Type: BLOOD SPECIMENOrdering Facility: [facility] Address: [address] [place] [address] Performed By: #### 5 7021-8, 29871-9 ####[facility] LABCLIA [id number] [place] [address] Platelet mean volume (Bld) [Entitic vol] 9.4 fL Normal 9.0-12.7 [facility] Comment on above: Order Comment: Speci men Type: BLOOD SPECIMENOrdering Facility: [facility] Address: [address] [place] [address] Performed By: #### 5 7021-8, 12763-2 ####[facility] LABCLIA [id number] [place] [address] Platelets (Bld) [#/Vol] 208 10*3/uL Normal 150-400 [facility] Comment on above: Order Comment: Speci men Type: BLOOD SPECIMENOrdering Facility: [facility] Address: [address] [place] [address] Result Comment: Resu lts checked and verified.No clot detected. Performed By: #### 5 7021-8, 79886-6 ####QUINEBAUGWILLIAM [facility] LABCLIA [id number] [place] [address] RBC (Bld) [#/Vol] 3.26 10*6/uL Low 3.90-5.20 [facility] Comment on above: Order Comment: Speci men Type: BLOOD SPECIMENOrdering Facility: [facility] Address: [address] [place] [address] Performed By: #### 5 7021-8, 36129-2 ####[facility] LABCLIA [id number] [place] [address] WBC (Bld) [#/Vol] 6.72 10*3/uL Normal 3.70-11.00 [facility] Comment on above: Order Comment: Speci men Type: BLOOD SPECIMENOrdering Facility: [facility] Address: [address] [place] [address] Performed By: #### 5 7021-8, 41922-1 ####[facility] LABCLIA [id number] [place] [address] CNOVSPon 02-22-2025 CNOVSP Visit (SP) Office (HEMASA) ----- SUZETTEJEMIMA J ([id number]) 1940 F Date Time Provider Department 02/22/25 3:00 PM KARLEE KELLY During your visit today, we recorded the following information about you: Temperature Pulse Respiration Blood pressure 97.7 degrees 74/minute 16/minute 132/72 Weight Height 75.9 kg 1.651 m Karlee Kelly MD 02/22/2025 8:55 PM Signed NAME: Jemima Bradford CLINIC NO.: [id number] DATE OF SERVICE: February 22, 2025 (Messi) Some elements in this clinic note that are critical to medical decision making have been carefully reviewed and included from a prior clinic note dated: January 26, 2025 (Joyce). Referring Provider: BRM Additional Clinicians involved in Jemima Bradford's care: Jasmyne Casillas CNP ([facility]), Dr. Keene, Dr. Ferrari ([facility] Cardiology, [place]), Dr. Pizarro, Dr. Arguelles, Dr. Shaniqua Ellsworth (Pulmonary, [place]), Dr. Mitzi Amaral, Dr. Tovar ([facility] orthopedic surgery) DIAGNOSIS: CASE SUMMARY / ASSESSMENT: 84 year old woman with: 1. 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 Status post lingular sparing left upper lobectomy and mediastinal lymph node dissection 06/13/2022. Pathology revealed the primary tumor was 2 cm, 0 of 15 lymph nodes involved, margins negative. The primary tumor was positive for ALK mutation, plus elevated PD-L1 expression. Postop it was elected not to treat with adjuvant chemotherapy or adjuvant radiation therapy, and routine follow-up recommended. Since initial diagnosis and surgery the patient has had no documented recurrence. Restaging chest CT 05/19/2024 revealed small left supraclavicular lymph nodes. Although subcentimeter in size, these were slightly increased in size when compared to 11/19/2023. The possibility of this representing metastatic adenopathy cannot be excluded given the change in size. Repeat chest CT 08/10/2024 stable. At this time, we plan to restage again at 6 months (January 2025) with a PET scan at her request. This is scheduled and she will need a transition of care visit following the PET scan. 2. 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 The patient presented with right breast pain and was found to have an abnormality in the retroareolar area of the right breast. A right breast breast biopsy obtained 05/25/2020 revealed a low-grade ER/HI positive DCIS. The patient also underwent a left breast biopsy on 06/06/2020 which was benign. Genetic testing revealed no evidence of deleterious mutations. The patient subsequently underwent a right breast lumpectomy on 06/21/2020, and pathology confirmed a 1.3 cm low-grade DCIS with negative margins. Adjuvant hormonal therapy with anastrozole started July 2020. The patient received adjuvant radiation therapy to the right breast 08/08/2020 through 08/19/2020 (3000 cGy in 5 fractions). Due to adverse effects (joint pain, restless legs) the patient discontinued anastrozole August 2024. Currently no evidence of disease. At this time will continue routine observation. Next surveillance mammogram due March 2025. 3. Heart disease - ICD9: 429.9, ICD10: I51.9 History of coronary artery disease and aortic valve stenosis. Status post CABG, aortic valve replacement and cardiac ablation November 2019. History of paroxysmal atrial fibrillation - resolved after her initial cardiac procedure in November 2019. Apparently the patient developed recurrent atrial fibrillation in August 2020 and underwent an additional ablation 01/04/2021. Currently on Eliquis and aspirin. Continue management per PCP/cardiology. 4. 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 Currently on Eliquis and aspirin. Continue management per PCP/neurology. 5. PMR Diagnosed approximately 2018. Currently not on treatment. Continue management per rheumatology. 6. Age-related osteoporosis - ICD9: 733.01, ICD10: M81.0 The patient has a long history of osteopenia. Most recent bone density DEXA May 2023 revealed bone loss in the left hip consistent with osteoporosis. Reviewed the need for Calcium and Vitamin D supplements and weight bearing exercise as tolerated. The patient will discuss with her PCP options for additional therapy including antiresorptive agents. 7. Normocytic anemia She has a worsening anemia, initially discovered in May 2024. Iron studies at that time were borderline low. She has been taking oral iron daily since that time, with her hemoglobin dropping from 11.3 in May 2024 to 8. (more content not included)... [facility] CNPN Telephone (NCCAP) ----- JEMIMA BRADFORD ([id number]) 1940 F Date Time Provider Department 02/22/25 KARLEE KELLY During your visit today, we recorded the following information about you: Adina Jenkins 02/22/2025 3:54 PM Signed Gia Clayton, REBECCA 02/24/2025 8:19 AM Signed Please review labs and advise. Last 3 dose Iron (300 mg/each) completed 01/06/25. REBECCA Messina Natalie, RN 02/24/2025 1:48 PM Signed Reviewed with Saulo. Pt will need additional IV Iron, as ordered. Repeat labs and see MARLYS in 8 weeks. Pt aware and agreeable to plan of care. Denies any questions, needs at this time. She completed her CTA today at [facility]. Toshia gave report to MM, and has requested the imaging. Pt Vascular surgeon appt Saturday02/26/25 at [facility]. Yas/Adina: Please call to schedule IV Iron, RTC with Labs 8 weeks REBECCA Messina Brittany 02/24/2025 5:07 PM Signed Can we changed orders for patient to receive Monoferric instead? Medicare insurance. Chelle Rondon APRN.CNP 02/24/2025 10:40 PM Signed Changed to Monoferric. Chelle Marin APRN.Kerry Padgett 02/25/2025 8:44 AM Addendum Call placed to patient - she states she does not want to schedule for Iron at this time stating she is seeing Vascular on Saturday and is pretty sure she will be scheduled for surgery after seeing her scan results. She will call back when she is ready to schedule. Kerry Ward Allergies As of Date: 02/22/2025 Noted Allergy Reaction BIAXIN (CLARITHROMYCIN) 06/16/2013 16 - Unknown CONTRAST DYE 06/16/2013 12 - Shortness of Breath NICKEL 07/05/2020 16 - Unknown NITROUS OXIDE 12/21/2014 11 - Vomiting SYNVISC (HYLAN G-F 20) 06/16/2013 7 - Swelling THORAZINE (CHLORPROMAZINE) 06/16/2013 2 - Rash Date Reviewed: 02/22/2025 Reviewed by: Terri Gannon MA - Fully Assessed Reason for Visit: Results [95] Prescriptions as of 03/04/2025 - gabapentin (NEURONTIN) 300 mg capsule Take 300 mg by mouth. - diphenhydrAMINE (BENADRYL) 50 mg capsule Take 1 capsule by mouth as directed for 1 dose. one (1) hour prior to exam. - atorvastatin (LIPITOR) 80 mg tablet Take 80 mg by mouth. - bumetanide (BUMEX) 1 mg tablet Take 1 mg by mouth two times a day. - montelukast (SINGULAIR) 10 mg tablet Take 10 mg by mouth once daily. - metoprolol tartrate, short acting, (LOPRESSOR) 25 mg tablet Take 1/2 tablet by mouth twice daily. - levothyroxine (SYNTHROID) 50 mcg tablet levothyroxine 50 mcg tablet TAKE 1 TABLET BY MOUTH DAILY FOR HYPOTHYROIDISM - apixaban (ELIQUIS) 5 mg tab(s) Eliquis 5 mg tablet Take 1 tablet twice a day by oral route for 90 days. - calcium carbonate (CALTRATE) 600 mg calcium (1,500 mg) tab 600 mg. - melatonin 10 mg tab 10 mg. - spironolactone (ALDACTONE) 25 mg tablet Take 25 mg by mouth once daily. - esomeprazole (NEXIUM) 40 mg capsule Take 40 mg by mouth as directed. Twice per week - nitroglycerin sublingual (NITROQUICK) 0.4 mg SL tablet Dissolve 1 tablet under the tongue every 5 minutes as needed. - COQ10, UBIQUINOL, ORAL Take 1 tablet by mouth once daily. - Chromium Picolinate 500 mcg cap Take 1 tablet by mouth once daily. - MAGNESIUM ORAL Take 1 tablet by mouth once daily. 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,*07/27/2015 Coronary artery disease involving elem ferguson*07/28/2015 Ductal carcinoma in situ (DCIS) of right breast*04/07/2021 Malignant neoplasm of upper lobe of left lung (*05/16/2022 Cerebrovascular accident (CVA) (HCC) [I63.9] 05/30/2022 Former smoker [Z87.891] 05/30/2022 JENNIFER (obstructive sleep apnea) [G47.33] 05/30/2022 Chronic congestive heart failure (HCC) [I50.9] 05/30/2022 Chronic kidney disease [N18.9] 05/30/2022 Hx of aortic valve repair [Z98.890, Z86.79] 05/30/2022 Mass of upper lobe of left lung [R91.8] 06/13/2022 06/22/2022 Obesity, Class I, BMI 30-34.9 [E66.811] 06/24/2022 Iron deficiency anemia [D50.9] 12/14/2024 Stage 3a chronic kidney disease (HCC) [N18.31] 01/26/2025 Encounter Status:Closed by ADINA JENKINS on 03/04/25 Normal [facility] Comprehensive metabolic 2000 panelon 02-22-2025 Albumin [Mass/Vol] 4.5 g/dL Normal 3.9-4.9 [facility] Comment on above: Order Comment: Speci men Type: BLOOD SPECIMENOrdering Facility: [facility] Address: [address] [place] [address] Performed By: #### 2 4323-8 ####[facility] [id number] [place] [address] ALP [Catalytic activity/Vol] 107 U/L Normal 34-123 [facility] Comment on above: Order Comment: Speci men Type: BLOOD SPECIMENOrdering Facility: [facility] Address: [address] [place] [address] Performed By: #### 2 4323-8 ####[facility]IA [id number] [place] [address] ALT [Catalytic activity/Vol] 13 U/L Normal 7-38 [facility] Comment on above: Order Comment: Speci men Type: BLOOD SPECIMENOrdering Facility: [facility] Address: [address] [place] [address] Performed By: #### 2 4323-8 ####[facility] [id number] [place] [address] Anion gap [Moles/Vol] 12 mmol/L Normal 8-15 [facility] Comment on above: Order Comment: Speci men Type: BLOOD SPECIMENOrdering Facility: [facility] Address: [address] [place] [address] Performed By: #### 2 4323-8 ####[facility]IA [id number] [place] [address] AST [Catalytic activity/Vol] 21 U/L Normal 13-35 [facility] Comment on above: Order Comment: Speci men Type: BLOOD SPECIMENOrdering Facility: [facility] Address: [address] [place] [address] Performed By: #### 2 4323-8 ####[facility] [id number] [place] [address] Bilirubin [Mass/Vol] 0.3 mg/dL Normal 0.2-1.3 [facility] Comment on above: Order Comment: Speci men Type: BLOOD SPECIMENOrdering Facility: [facility] Address: [address] [place] [address] Performed By: #### 2 4323-8 ####[facility] [id number] [place] [address] Calcium [Mass/Vol] 9.8 mg/dL Normal 8.5-10.2 [facility] Comment on above: Order Comment: Speci men Type: BLOOD SPECIMENOrdering Facility: [facility] Address: [address] [place] [address] Performed By: #### 2 4323-8 ####[facility]IA [id number] [place] [address] Chloride [Moles/Vol] 106 mmol/L Normal 98-107 [facility] Comment on above: Order Comment: Speci men Type: BLOOD SPECIMENOrdering Facility: [facility] Address: [address] [place] [address] Performed By: #### 2 4323-8 ####[facility] [id number] [place] [address] CO2 [Moles/Vol] 24 mmol/L Normal 22-30 [facility] Comment on above: Order Comment: Speci men Type: BLOOD SPECIMENOrdering Facility: [facility] Address: [address] [place] [address] Performed By: #### 2 4323-8 ####[facility]IA [id number] [place] [address] Creatinine [Mass/Vol] 1.24 mg/dL High 0.58-0.96 [facility] Comment on above: Order Comment: Speci men Type: BLOOD SPECIMENOrdering Facility: [facility] Address: [address] [place] [address] Performed By: #### 2 4323-8 ####[facility]IA [id number] [place] [address] eGFRcr SerPlBld CKD-EPI 2020 43 mL/min/1.73m??? Low >=60 [facility] Comment on above: Order Comment: Speci men Type: BLOOD SPECIMENOrdering Facility: [facility] Address: [address] [place] [address] Result Comment: Dee mated Glomerular Filtration Rate (eGFR) is calculated using the 2020 CKD-EPI creatinine equation. This equation utilizes serum creatinine, sex, and age as parameters. The creatinine assay has traceable calibration to isotope dilution-mass spectrometry. Refer to KDIGO guidelines for clinical interpretation. In patients with unstable renal function, e.g. those with acute kidney injury, the eGFR may not accurately reflect actual GFR. Performed By: #### 2 4323-8 ####[facility]CLIA [id number] [place] [address] Glucose [Mass/Vol] 113 mg/dL High 74-99 [facility] Comment on above: Order Comment: Speci men Type: BLOOD SPECIMENOrdering Facility: [facility] Address: [address] [place] [id number] Result Comment: The [place] Diabetes Association (ADA) provides guidance for cutoff [...] Standards of Medical Care in Diabetes 2016, [place] [employer]. Diabetes Care. 2016.39(Suppl 1). Performed By: #### 2 4323-8 ####[facility]CLIA [id number] [place] [address] Potassium [Moles/Vol] 4.2 mmol/L Normal 3.7-5.1 [facility] Comment on above: Order Comment: Speci men Type: BLOOD SPECIMENOrdering Facility: [facility] Address: [address] [place] [address] Performed By: #### 2 4323-8 ####[facility]CLIA [id number] [place] [address] Protein [Mass/Vol] 6.8 g/dL Normal 6.3-8.0 [facility] Comment on above: Order Comment: Speci men Type: BLOOD SPECIMENOrdering Facility: [facility] Address: [address] [place] [address] Performed By: #### 2 4323-8 ####[facility]CLIA [id number] [place] [address] Sodium [Moles/Vol] 142 mmol/L Normal 136-144 [facility] Comment on above: Order Comment: Speci men Type: BLOOD SPECIMENOrdering Facility: [facility] Address: [address] [id number] Performed By: #### 2 4323-8 ####[facility]CLIA [id number] [place] [address] Urea nitrogen [Mass/Vol] 42 mg/dL High 7-21 [facility] Comment on above: Order Comment: Speci men Type: BLOOD SPECIMENOrdering Facility: [facility] Address: [address] [place] [address] Performed By: #### 2 4323-8 ####[facility]CLIA [id number] [place] [address] EPO SerPl-aCncon 02-22-2025 Erythropoietin (EPO) Qn 44.9 mIU/mL High 2.6-18.5 [facility] Comment on above: Order Comment: Speci men Type: BLOOD SPECIMEN Ordering Facility: [facility] Address: [address] [place] [address] Performed By: #### 1 5061-5 #### [facility] CLIA [id number] [address] [place] [address] [place] Ferritin SerPl-mCncon 2024 Ferritin [Mass/Vol] 81.1 ng/mL Normal 14.7-205.1 [facility] Comment on above: Order Comment: Speci men Type: BLOOD SPECIMENOrdering Facility: [facility] Address: [address] [place] [address] Performed By: #### 5 0190-8, 2276-4, 4542-7 ####[facility]CLIA [id number] [place] [address] [place] Folate SerPl-mCncon 02-23-20 25 Folate [Mass/Vol] 13.4 ng/mL Normal >4.7 [facility] Comment on above: Order Comment: Speci men Type: BLOOD SPECIMEN Ordering Facility: [facility] Address: [address] [place] [address] Performed By: #### 1 5061-5 #### [facility] CLIA [id number] [address] [place], [place] [address] [place] Haptoglob SerPl-mCncon 02-22 Haptoglobin [Mass/Vol] 100 mg/dL Normal 31-238 [facility] Comment on above: Order Comment: Speci men Type: BLOOD SPECIMEN Ordering Facility: [facility] Address: [address] [place] [address] Performed By: #### 1 5061-5 #### [facility] CLIA [id number] [address] [place], [place] [address] [place] Iron and Iron binding capaci ty panelon 02-22-2025 Iron [Mass/Vol] 38 ug/dL Low 41-186 [facility] Comment on above: Order Comment: Speci men Type: BLOOD SPECIMENOrdering Facility: [facility] Address: [address] [place] [address] Performed By: #### 5 0190-8, 6-4, 454-7 ####[facility] LABCLIA [id number] [place] [address] [place] Iron binding capacity [Mass/Vol] 350 ug/dL Normal 232-386 [facility] Comment on above: Order Comment: Speci men Type: BLOOD SPECIMENOrdering Facility: [facility] Address: [address] [place] [address] Performed By: #### 5 0190-8, 6-4, 454-7 ####[facility] LABCLIA [id number] [place] [id number] [place] Iron/TIBC [Molar ratio] 10.9 % Low 15.0-57.0 [facility] Comment on above: Order Comment: Speci men Type: BLOOD SPECIMENOrdering Facility: [facility] Address: [address] [place] [address] Performed By: #### 5 0190-8, 6-4, 454-7 ####[facility]CLIA [id number] [facility]jel[facility] [place] [address] [place] No Panel Informationon 02-22 Interpretation and review of laboratory results Abnormal [facility] RETICULOCYTE COUNTon 025 Reticulocytes (Bld) [#/Vol] 0.086 10*3/uL [facility] Retics #on 02-22-2025 Reticulocytes (Bld) [#/Vol] 0.60311 10*3/uL Normal 0.018-0.100 [facility] Comment on above: Order Comment: Speci men Type: BLOOD SPECIMENOrdering Facility: [facility] Address: [address] [place] [address] Performed By: #### 5 7021-8, 86370-4 ####[facility] LABIA [id number] [place] [address] Reticulocytes (Bld) [#/Vol]o n 02-22-2025 Reticulocytes/100 RBC (Bld) 2.6 % High 0.4 - 2.0 % [facility] Reticulocytes/100 RBC (Bld) 2.6 % High 0.4-2.0 [facility] Comment on above: Order Comment: Speci men Type: BLOOD SPECIMENOrdering Facility: [facility] Address: [address] [place] [address] Performed By: #### 5 7021-8, 92099-8 ####[facility] LABIA [id number] [place] [address] Urinalysis complete panel (U )on 02-22-2025 Bacteria LM.HPF (Urine sed) [#/Area] Negative Negative /HPF [facility] Bilirubin Ql (U) Negative [facility] Clarity (Unsp spec) Clear Clear [facility] Color (U) Yellow Yellow [facility] Epithelial cells LM.HPF (Urine sed) [#/Area] None Seen /HPF [facility] Glucose Test strip (U) [Mass/Vol] Negative Negative [facility] Hemoglobin Ql (U) Negative [facility] Hyaline casts (Urine sed) [#/Area] 1-3 /LPF Abnormal 0 /LPF [facility] Interpretation and review of laboratory results Abnormal [facility] Ketones Ql (U) Negative Negative [facility] Leukocyte esterase Test strip Ql (U) Trace Abnormal Negative [facility] Nitrite Ql (U) Negative Negative [facility] pH (U) 6.0 [pH] 5.0 - 8.0 [facility] Protein (U) [Mass/Vol] Negative Negative [facility] RBC LM.HPF (Urine sed) [#/Area] 0-2 /HPF 0-2 /HPF [facility] Specific gravity (U) [Rel density] 1.013 1.005 - 1.030 [facility] Urobilinogen Ql (U) 0.2 EU/dL 0.2-1.0 EU/dL [facility] WBC LM.HPF (Urine sed) [#/Area] 0-5 /HPF 0-5 /HPF [facility] This test was develo ped and its performance characteristics determined by [facility]'s [facility] [place] ([facility]). It has not been cleared or approved by the FDA. [facility] is regulated under CLIA as qualified to perform high-complexity testing. This test is used for clinical purposes. It should not be regarded as investigational or for research. [facility] Bacteria LM.HPF (Urine sed) [#/Area] Negative Normal Negative [facility] Comment on above: Order Comment: Speci men Type: URINE SPECIMENOrdering Facility: [facility] Address: [address] [place] [address] Performed By: #### 2 4356-8 ####[facility] LABIA [id number] [place] [address] [place] Bilirubin Ql (U) Negative Normal Negative [facility] Comment on above: Order Comment: Speci men Type: URINE SPECIMENOrdering Facility: [facility] Address: [address] [place] [address] Performed By: #### 2 4356-8 ####[facility] LABIA [id number] [place] [address] [place] Clarity (Unsp spec) Clear Normal Clear [facility] Comment on above: Order Comment: Speci men Type: URINE SPECIMENOrdering Facility: [facility] Address: [address] [place] [address] Performed By: #### 2 4356-8 ####[facility] LABCLIA [id number] [facility] [address] [place] [address] [place] Color (U) Yellow Normal Yellow [facility] Comment on above: Order Comment: Speci men Type: URINE SPECIMENOrdering Facility: [facility] Address: [address] [place] [address] Performed By: #### 2 4356-8 ####[facility]CLIA [id number] [address] [place] [address] [place] Epithelial cells LM.HPF (Urine sed) [#/Area] None Seen Normal [facility] Comment on above: Order Comment: Speci men Type: URINE SPECIMENOrdering Facility: [facility] Address: [address] [place] [address] Performed By: #### 2 4356-8 ####[facility]CLIA [id number] [address] [place] [address] [place] Glucose Test strip (U) [Mass/Vol] Negative Normal Negative [facility] Comment on above: Order Comment: Speci men Type: URINE SPECIMENOrdering Facility: [facility] Address: [address] [place] [address] Performed By: #### 2 4356-8 ####[facility] LABCLIA [id number] [facility] [address] [place] [address] [place] Hemoglobin Ql (U) Negative Normal Negative [facility] Comment on above: Order Comment: Speci men Type: URINE SPECIMENOrdering Facility: [facility] Address: [address] [place], [place] [address] Performed By: #### 2 4356-8 ####[facility] LABCLIA [id number] [place] [address] [place] Hyaline casts (Urine sed) [#/Area] 1-3 /LPF Abnormal 0 /LPF [facility] Comment on above: Order Comment: Speci men Type: URINE SPECIMENOrdering Facility: [facility] Address: [address] [place] [address] Performed By: #### 2 4356-8 ####[facility]CLIA [id number] [address], [place] [address] [place] Ketones Ql (U) Negative Normal Negative [facility] Comment on above: Order Comment: Speci men Type: URINE SPECIMENOrdering Facility: [facility] Address: [address] [place] [address] Performed By: #### 2 4356-8 ####[facility]CLIA [id number] [place] [address] [place] Leukocyte esterase Test strip Ql (U) Trace Abnormal Negative [facility] Comment on above: Order Comment: Speci men Type: URINE SPECIMENOrdering Facility: [facility] Address: [address] [place] [address] Performed By: #### 2 4356-8 ####[facility]CLIA [id number] [address], [place] [address] [place] Nitrite Ql (U) Negative Normal Negative [facility] Comment on above: Order Comment: Speci men Type: URINE SPECIMENOrdering Facility: [facility] Address: [address] [place] [address] Performed By: #### 2 4356-8 ####[facility] LABCLIA [id number] [place] [id number] [place] pH (U) 6.0 [pH] Normal 5.0-8.0 [facility] Comment on above: Order Comment: Speci men Type: URINE SPECIMENOrdering Facility: [facility] Address: [address] [place] [address] Performed By: #### 2 4356-8 ####[facility] LABIA [id number] [place] [address] [place] Protein (U) [Mass/Vol] Negative Normal Negative [facility] Comment on above: Order Comment: Speci men Type: URINE SPECIMENOrdering Facility: [facility] Address: [address] [place] [address] Performed By: #### 2 4356-8 ####[facility] LABIA [id number] [place] [address] [place] RBC LM.HPF (Urine sed) [#/Area] 0-2 /HPF Normal 0-2 /HPF [facility] Comment on above: Order Comment: Speci men Type: URINE SPECIMENOrdering Facility: [facility] Address: [address] [place] [address] Performed By: #### 2 4356-8 ####[facility] [id number] [place] [address] [place] Specific gravity (U) [Rel density] 1.013 Normal 1.005-1.030 [facility] Comment on above: Order Comment: Speci men Type: URINE SPECIMENOrdering Facility: [facility] Address: [address] [place] [address] Performed By: #### 2 4356-8 ####[facility] [id number] [address] [place] Urobilinogen Ql (U) 0.2 EU/dL Normal 0.2-1.0 EU/dL [facility] Comment on above: Order Comment: Speci men Type: URINE SPECIMENOrdering Facility: [facility] Address: [address] [place] [address] Performed By: #### 2 4356-8 ####[facility] LABIA [id number] [place] [address] [place] WBC LM.HPF (Urine sed) [#/Area] 0-5 /HPF Normal 0-5 /HPF [facility] Comment on above: Order Comment: Speci men Type: URINE SPECIMENOrdering Facility: [facility] Address: [address] [place] [address] Performed By: #### 2 4356-8 ####[facility]CLIA [id number] [place] [address] [place] Vit B12 SerPl-mCncon 025 Cobalamin (Vitamin B12) [Mass/Vol] 663 pg/mL Normal 232-1245 [facility] Comment on above: Order Comment: Speci men Type: BLOOD SPECIMEN Ordering Facility: [facility] Address: [address] [place] [address] Performed By: #### 1 5061-5 #### [facility] CLIA [id number] [address] [place] [address] [place] GLUCOSE, BLOOD (POC)on 02-15 Glucose [Mass/Vol] 114 mg/dL Abnormal 74 - 99 mg/dL [facility] Comment on above: Location:[facility], [address] [place] [address] , [place], [place], [facility] The Accu-Chek Inform II glucose meter has not been approved for testing on patients receiving intensive medical intervention or therapy and results from this point of care glucose test should not be used for patient management decisions in these cases. Inaccurate results may also occur from other interfering factors, such as N-acetylcysteine (blood concentrations of greater than 5mg/dL), galactose, extremes of hematocrit (<10 or >65), or high doses of ascorbic acid (vitamin C) greater than 3mg/dL. Consider alternate testing mechanisms (e.g. core lab, blood gas instrument) in the above situations. Interpretation and review of laboratory results Abnormal [facility] NM PET/CT SKULL-THIGH SUBQon 02-15-2025 NM PET/CT SKULL-THIGH SUBQ * * *Final Report* * * DATE OF EXAM: Feb 15 2025 11:41AM NRN [id number] - NM PET/CT SKULL-THIGH SUBQ / PROCEDURE REASON: Malignant neoplasm of unspecified part of unspecified bronchus or lung (HCC) * * * * Physician Interpretation * * * * RESULT: EXAMINATION: BODY FDG PET-CT CLINICAL HISTORY: History of left upper lobe lung cancer status post lingular sparing left upper lobectomy and mediastinal lymph node dissection with postoperative adjuvant chemotherapy and radiation. EXAM CATEGORY: Subsequent treatment strategy. TECHNIQUE: Radiopharmaceutical was administered intravenously followed by PET imaging from the eyes to thighs. Free breathing, low dose CT of the same body region was acquired without IV contrast for attenuation correction and anatomic localization. Unenhanced imaging is limited for the evaluation of some pathology and the acquired CT was not designed to produce diagnostic CT scan quality. Physiologic/non-pathologi c uptake in some body regions could confound or obscure some pathology. * CT Dose-Length Product (DLP): 241 mGy*cm * CT Dose Reduction Employed: Yes * Blood glucose: 114 mg/dL * Injection site: Right Forearm-Antecubital * Injected activity: 9.5 mCi * Uptake Time: 0 minutes * Radiopharmaceutical: L04-Fnqdxzrswrqezdlopu (FDG) COMPARISON: Outside PET/CT 04/11/2022. CORRELATION: CT chest 08/10/2024 RESULT: REFERENCES: FDG uptake is used as a surrogate marker for glucose metabolism. All reported standardized uptake values represent maximum SUV (SUVmax) per body weight, unless otherwise specified. SUV reference values, as follows: * Blood Pool (Descending Aorta): SUVmax 2.6 * Background Liver: SUVmax 3.4; SUVmean 2.5 Localizer Images: No additional findings. HEAD AND NECK: Head: No radiotracer avid lesion or mass effect in the imaged intracranial compartment. Aerodigestive Tract: No radiotracer avid lesion along the mucosal space. Patent airway without an obstructive lesion. Lymph Nodes: No radiotracer avid lymphadenopathy. Neck Soft Tissues: No radiotracer avid thyroid nodule. CHEST: Lungs and Pleura: No radiotracer avid mass, nodule, or consolidation. No pleural effusion. Postsurgical changes from left upper lobe lobectomy Note, PET is often not sensitive for lung nodules smaller than 8 mm. Lymph Nodes: No radiotracer avid lymphadenopathy. Mediastinum: No radiotracer avid mass. Mediastinal surgical clips. Cardiovascular: Blood pool activity. No pericardial effusion. Normal heart size. Thoracic aortic and coronary artery calcifications. Left atrial appendage clip. Replaced aortic valve. Focal calcification in the right superior pulmonary vein is likely postoperative change from past ablations, with associated increased radiotracer uptake with maximal SUV 5.6 (6:34). Calcification appears stable on exams dating back to 2021. Chest Wall: No radiotracer avid soft tissue lesion. Median sternotomy with associated increased radiotracer uptake. Surgical changes from right breast lumpectomy. ABDOMEN AND PELVIS: Hepatobiliary: No radiotracer avid lesion. No measurable mass. Cholecystectomy. Spleen: No radiotracer avid lesion. No splenomegaly. Pancreas: No radiotracer avid lesion. Adrenals: No radiotracer avid nodule. Urinary Tract: Physiologic radiotracer excretion in the renal collecting systems and urinary bladder. No hydronephrosis. GI Tract: No radiotracer avid lesion. No bowel dilation. Small hiatal hernia. Peritoneum: No radiotracer avid lesion. No ascites. Lymph Nodes: No radiotracer avid lymphadenopathy. Vasculature: Blood pool activity. Focal soft tissue thickening/outpouching of the left infrarenal abdominal aorta beyond the intraluminal vascular calcifications measures approximately 7 mm and is concerning for possible penetrating atherosclerotic ulcer (6:174). Pelvic Organs: No radiotracer avid lesion. MUSCULOSKELETAL: Bones: No radiotracer avid lesion. No lytic or sclerotic lesion. Degenerative changes. Soft Tissues: No radiotracer avid lesion. IMPRESSION PRIMARY DISEASE SITE: * No evidence of metabolic recurrence. CARI DISEASE: * No metabolically active regional lymphadenopathy. METASTATIC DISEASE: * No metabolically active distant metastases. ADDITIONAL FINDINGS: * Focal outpouching in the left infrarenal abdominal aorta which extends beyond the intraluminal calcifications is concerning for possible penetrating atherosclerotic ulcer. Recommend dedicated CTA for better characterization. ACTIONABLE RESULT: FOLLOW-UP Acuity: Actionable Findings: Heart and Vascular system Routing Code: CV_1 Recommendation: CTA Abd/Pelvis Time Frame: At the discretion of the clinical team. COMMUNICATION: Results will be communicated with the ordering provider via [employer] staff message or phone message by [facility] within 2 business days of report finalization. --END OF FINDING-- (more content not included)... Invalid Interpretation Code [facility] ----- SUZETTEJEMIMA Rios ([id number]) 1940 F Date Time Provider Department 02/12/25 KATIE COOK During your visit today, we recorded the following information about you: Natalia Mcdonald RN 02/12/2025 11:51 AM Signed Please sign pended PET-MAGGIE from Dr. Adan Thank You! Natalia Mcdonald RN Allergies As of Date: 02/12/2025 Noted Allergy Reaction BIAXIN (CLARITHROMYCIN) 06/16/2013 16 - Unknown CONTRAST DYE 06/16/2013 12 - Shortness of Breath NICKEL 07/05/2020 16 - Unknown NITROUS OXIDE 12/21/2014 11 - Vomiting SYNVISC (HYLAN G-F 20) 06/16/2013 7 - Swelling THORAZINE (CHLORPROMAZINE) 06/16/2013 2 - Rash Date Reviewed: 01/26/2025 Reviewed by: Katie Cook, PAWillyC - Fully Assessed Reason for Visit: Orders [681] Primary Visit Diagnosis:Malignant neoplasm of unspecified part of unspecified bronchus or lung (HCC) [C34.90] Order(s):NM PET/CT SKULL-THIGH SUBSEQUENT [[id number]] Order #: [id number] FUTURE Prescriptions as of 02/12/2025 - atorvastatin (LIPITOR) 80 mg tablet Take 80 mg by mouth. - bumetanide (BUMEX) 1 mg tablet Take 1 mg by mouth two times a day. - montelukast (SINGULAIR) 10 mg tablet Take 10 mg by mouth once daily. - metoprolol tartrate, short acting, (LOPRESSOR) 25 mg tablet Take 1/2 tablet by mouth twice daily. - levothyroxine (SYNTHROID) 50 mcg tablet levothyroxine 50 mcg tablet TAKE 1 TABLET BY MOUTH DAILY FOR HYPOTHYROIDISM - apixaban (ELIQUIS) 5 mg tab(s) Eliquis 5 mg tablet Take 1 tablet twice a day by oral route for 90 days. - calcium carbonate (CALTRATE) 600 mg calcium (1,500 mg) tab 600 mg. - melatonin 10 mg tab 10 mg. - spironolactone (ALDACTONE) 25 mg tablet Take 25 mg by mouth once daily. - esomeprazole (NEXIUM) 40 mg capsule Take 40 mg by mouth as directed. Twice per week - nitroglycerin sublingual (NITROQUICK) 0.4 mg SL tablet Dissolve 1 tablet under the tongue every 5 minutes as needed. - COQ10, UBIQUINOL, ORAL Take 1 tablet by mouth once daily. - Chromium Picolinate 500 mcg cap Take 1 tablet by mouth once daily. - MAGNESIUM ORAL Take 1 tablet by mouth once daily. 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 Malignant neoplasm of upper lobe of left lung (*05/16/2022 Cerebrovascular accident (CVA) (HCC) [I63.9] 05/30/2022 Former smoker [Z87.891] 05/30/2022 JENNIFER (obstructive sleep apnea) [G47.33] 05/30/2022 Chronic congestive heart failure (HCC) [I50.9] 05/30/2022 Chronic kidney disease [N18.9] 05/30/2022 Hx of aortic valve repair [Z98.890, Z86.79] 05/30/2022 Mass of upper lobe of left lung [R91.8] 06/13/2022 06/22/2022 Obesity, Class I, BMI 30-34.9 [E66.811] 06/24/2022 Iron deficiency anemia [D50.9] 12/14/2024 Stage 3a chronic kidney disease (HCC) [N18.31] 01/26/2025 Encounter Status:Closed by KELSEY STUART on 02/12/25 Normal [facility] Office Visiton 02-09-2025 Follow-up visit [id number] Kaushal Bradford ra 1940 F Date Provider Department Center 02/09/2025 SHARLA LEON [facility] Family History Problem Relation Age of Onset Other Mother Stroke Father Other Father Other Father Breast cancer Sister Other Brother 50 Other Brother Family Status - Relation Status Age at Mother Father Sister Alive Brother Alive Level of Service:12220 HI OFFICE/OUTPATIENT ESTABLISHED LOW MDM 20 MIN Normal [facility] CBC W Auto Differential pane l (Bld)on 01-26-2025 Basophils (Bld) [#/Vol] 0.07 10*3/uL Normal <0.11 [facility] Comment on above: Order Comment: Speci men Type: BLOOD SPECIMENOrdering Facility: [facility] Address: [address] [place] [address] Performed By: #### 5 7021-8 ####[facility] LABCLIA [id number] [place] [address] Basophils/100 WBC (Bld) 1.3 % Normal [facility] Comment on above: Order Comment: Speci men Type: BLOOD SPECIMENOrdering Facility: [facility] Address: [address] [place] [address] Performed By: #### 5 7021-8 ####[facility] LABCLIA [id number] [place] [address] Differential cell count method Nom (Bld) Auto Normal [facility] Comment on above: Order Comment: Speci men Type: BLOOD SPECIMENOrdering Facility: [facility] Address: [address] [place] [address] Performed By: #### 5 7021-8 ####[facility] LABCLIA [id number] [place] [address] Eosinophils (Bld) [#/Vol] 0.26 10*3/uL Normal <0.46 [facility] Comment on above: Order Comment: Speci men Type: BLOOD SPECIMENOrdering Facility: [facility] Address: [address] [place] [address] Performed By: #### 5 7021-8 ####[facility] LABCLIA [id number] [place] [address] Eosinophils/100 WBC (Bld) 5.0 % Normal [facility] Comment on above: Order Comment: Speci men Type: BLOOD SPECIMENOrdering Facility: [facility] Address: [address] [place] [address] Performed By: #### 5 7021-8 ####[facility] LABCLIA [id number] [place] [address] Erythrocyte distribution width (RBC) [Ratio] 17.8 % High 11.5-15.0 [facility] Comment on above: Order Comment: Speci men Type: BLOOD SPECIMENOrdering Facility: [facility] Address: [address] [place] [address] Performed By: #### 5 7021-8 ####[facility] LABCLIA [id number] [place] [address] Hematocrit (Bld) [Volume fraction] 31.0 % Low 36.0-46.0 [facility] Comment on above: Order Comment: Speci men Type: BLOOD SPECIMENOrdering Facility: [facility] Address: [address] [place] [address] Performed By: #### 5 7021-8 ####[facility] LABCLIA [id number] [place] [address] Hemoglobin (Bld) [Mass/Vol] 9.8 g/dL Low 11.5-15.5 [facility] Comment on above: Order Comment: Speci men Type: BLOOD SPECIMENOrdering Facility: [facility] Address: [address] [place] [address] Performed By: #### 5 7021-8 ####[facility] LABCLIA [id number] [place] [address] Immature granulocytes (Bld) [#/Vol] 10*3/uL Normal <0.10 [facility] Comment on above: Order Comment: Speci men Type: BLOOD SPECIMENOrdering Facility: [facility] Address: [address] [place] [address] Performed By: #### 5 7021-8 ####[facility] LABCLIA [id number] [place] [address] Immature granulocytes/100 WBC (Bld) 0.4 % Normal [facility] Comment on above: Order Comment: Speci men Type: BLOOD SPECIMENOrdering Facility: [facility] Address: [address] [place] [address] Performed By: #### 5 7021-8 ####[facility] LABIA [id number] [place] [address] Lymphocytes (Bld) [#/Vol] 1.57 10*3/uL Normal 1.00-4.00 [facility] Comment on above: Order Comment: Speci men Type: BLOOD SPECIMENOrdering Facility: [facility] Address: [address] [place] [address] Performed By: #### 5 7021-8 ####[facility] LABCLIA [id number] [place] [address] Lymphocytes/100 WBC (Bld) 30.1 % Normal [facility] Comment on above: Order Comment: Speci men Type: BLOOD SPECIMENOrdering Facility: [facility] Address: [address] [place] [address] Performed By: #### 5 7021-8 ####[facility] LABIA [id number] [place] [address] MCH (RBC) [Entitic mass] 27.4 pg Normal 26.0-34.0 [facility] Comment on above: Order Comment: Speci men Type: BLOOD SPECIMENOrdering Facility: [facility] Address: [address] [place] [address] Performed By: #### 5 7021-8 ####[facility] LABCLIA [id number] [place] [address] MCHC (RBC) [Mass/Vol] 31.6 g/dL Normal 30.5-36.0 [facility] Comment on above: Order Comment: Speci men Type: BLOOD SPECIMENOrdering Facility: [facility] Address: [address] [place] [address] Performed By: #### 5 7021-8 ####[facility] LABCLIA [id number] [place] [address] MCV (RBC) [Entitic vol] 86.6 fL Normal 80.0-100.0 [facility] Comment on above: Order Comment: Speci men Type: BLOOD SPECIMENOrdering Facility: [facility] Address: [address] [place] [address] Performed By: #### 5 7021-8 ####[facility] LABCLIA [id number] [place] [address] Monocytes (Bld) [#/Vol] 0.48 10*3/uL Normal <0.87 [facility] Comment on above: Order Comment: Speci men Type: BLOOD SPECIMENOrdering Facility: [facility] Address: [address] [place] [address] Performed By: #### 5 7021-8 ####[facility] LABCLIA [id number] [place] [address] Monocytes/100 WBC (Bld) 9.2 % Normal [facility] Comment on above: Order Comment: Speci men Type: BLOOD SPECIMENOrdering Facility: [facility] Address: [address] [place] [address] Performed By: #### 5 7021-8 ####[facility] LABCLIA [id number] [place] [address] Neutrophils (Bld) [#/Vol] 2.81 10*3/uL Normal 1.45-7.50 [facility] Comment on above: Order Comment: Speci men Type: BLOOD SPECIMENOrdering Facility: [facility] Address: [address] [place] [address] Performed By: #### 5 7021-8 ####[facility] LABCLIA [id number] [place] [address] Neutrophils/100 WBC (Bld) 54.0 % Normal [facility] Comment on above: Order Comment: Speci men Type: BLOOD SPECIMENOrdering Facility: [facility] Address: [address] [place] [address] Performed By: #### 5 7021-8 ####[facility] LABCLIA [id number] [place] [address] Nucleated RBC (Bld) [#/Vol] 10*3/uL Normal <0.01 [facility] Comment on above: Order Comment: Speci men Type: BLOOD SPECIMENOrdering Facility: [facility] Address: [address] [place] [address] Performed By: #### 5 7021-8 ####[facility] LABCLIA [id number] [place] [address] Nucleated RBC/100 WBC (Bld) [Ratio] 0.0 /100 WBC Normal [facility] Comment on above: Order Comment: Speci men Type: BLOOD SPECIMENOrdering Facility: [facility] Address: [address] [place] [address] Performed By: #### 5 7021-8 ####[facility] LABCLIA [id number] [place] [address] Platelet mean volume (Bld) [Entitic vol] 9.7 fL Normal 9.0-12.7 [facility] Comment on above: Order Comment: Speci men Type: BLOOD SPECIMENOrdering Facility: [facility] Address: [address] [place] [address] Performed By: #### 5 7021-8 ####[facility] LABIA [id number] [place] [address] Platelets (Bld) [#/Vol] 158 10*3/uL Normal 150-400 [facility] Comment on above: Order Comment: Speci men Type: BLOOD SPECIMENOrdering Facility: [facility] Address: [address] [place] [address] Performed By: #### 5 7021-8 ####[facility] LABIA [id number] [place] [address] RBC (Bld) [#/Vol] 3.58 10*6/uL Low 3.90-5.20 [facility] Comment on above: Order Comment: Speci men Type: BLOOD SPECIMENOrdering Facility: [facility] Address: [address] [place] [address] Performed By: #### 5 7021-8 ####[facility] [id number] [place] [address] WBC (Bld) [#/Vol] 5.21 10*3/uL Normal 3.70-11.00 [facility] Comment on above: Order Comment: Speci men Type: BLOOD SPECIMENOrdering Facility: [facility] Address: [address] [place] [address] Performed By: #### 5 7021-8 ####[facility] [id number] [place] [address] CNOVSPon 01-26-2025 CNOVS Visit (SP) Office ([facility]) ----- JEMIMA BRADFORD ([id number]) 1940 F Date Time Provider Department 7/29/25 10:30 AM KATIE COOK During your visit today, we recorded the following information about you: Temperature Pulse Respiration Blood pressure 97.1 degrees 61/minute 16/minute 108/45 Weight Height 77.4 kg 1.651 m Katie Cook PA-C 01/26/2025 12:17 PM Signed PATIENT NAME: Jemima Bradford DATE: 01/26/2025 PRIMARY CARE PHYSICIAN: Jasmyne Casillas, [place] ([facility]) OTHER PHYSICIANS: Dr. Keene, Dr. Ferrari ([facility] Cardiology, [place]), Dr. Pizarro, Dr. Arguelles, Dr. Shaniqua Ellsworth (Pulmonary, [place]), Dr. Mitzi Amaral, Dr. Tovar ([facility] orthopedic surgery) Portions of this encounter note have been copied from the note from 12/14/2024 and has been updated where appropriate, and reflect my current medical decision making from today. 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 INTERIM HISTORY: Patient is an 84-year-old female with a history of DCIS, lung cancer, and mild renal insufficiency. Recently found to have iron deficiency anemia and she received Venofer 300 mg x 3 doses December 22-January 06, 2025. She feels better after receiving the iron. She does report that every 10-14 days she feels like her head swims and she has to hold on to something. She describes it as feeling like her head is going around and it lasts about 45 seconds. It has happened 5-6 times over the last few months. No headaches, double vision. MEDICATIONS: atorvastatin (LIPITOR) 80 mg tablet Take 80 mg by mouth. ferrous sulfate 325 mg (65 mg iron) tablet Take 325 mg by mouth. gabapentin (NEURONTIN) 300 mg capsule Take 300 mg by mouth. bumetanide (BUMEX) 1 mg tablet Take 1 mg by mouth two times a day. montelukast (SINGULAIR) 10 mg tablet Take 10 mg by mouth once daily. metoprolol tartrate, short acting, (LOPRESSOR) 25 mg tablet Take 1/2 tablet by mouth twice daily. levothyroxine (SYNTHROID) 50 mcg tablet levothyroxine 50 mcg tablet TAKE 1 TABLET BY MOUTH DAILY FOR HYPOTHYROIDISM apixaban (ELIQUIS) 5 mg tab(s) Eliquis 5 mg tablet Take 1 tablet twice a day by oral route for 90 days. calcium carbonate (CALTRATE) 600 mg calcium (1,500 mg) tab 600 mg. melatonin 10 mg tab 10 mg. spironolactone (ALDACTONE) 25 mg tablet Take 25 mg by mouth once daily. esomeprazole (NEXIUM) 40 mg capsule Take 40 mg by mouth as directed. Twice per week nitroglycerin sublingual (NITROQUICK) 0.4 mg SL tablet Dissolve 1 tablet under the tongue every 5 minutes as needed. COQ10, UBIQUINOL, ORAL Take 1 tablet by mouth once daily. Chromium Picolinate 500 mcg cap Take 1 tablet by mouth once daily. MAGNESIUM ORAL Take 1 tablet by mouth once daily. 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 Aortic valve stenosis mild Arthritis Asthma controlled no inhalers Coronary artery disease Hypercholesteremia Hypertension Polymyalgia rheumatica (HCC) PAST SURGICAL HISTORY: PAST SURGICAL HISTORY Procedure Laterality Date APPENDECTOMY 07/01/1978 ARTHROSCOPY KNEE MEDIAL RELEASE 2002,2010 rt AND Lt knee ARTHRP KNE CONDYLEANDPLATU MEDIALANDLAT COMPARTMENTS Right 07/01/2013 right x2 BREAST LUMPECTOMY HX BUNIONECTOMY, LAPIDUS-TYPE 07/01/2010 rt toe CHOLECYSTECTOMY 07/01/2005 COLONOSCOPY AND POLYPECTOMY 2004, 2005, 2009 x 3 CYSTO LASER TX URETERAL CALC 07/01/2009 stent placement CYSTO W/RETROGRADE x 6 DANDC (INCOMPLETE AB), ANY TRIMESTER 07/01/1974 EXCISE EXCESS SKIN TISSUE,ABDOMEN 07/01/1994 Abdominalplasty KNEE SURGERY HX Left 07/27/2024 LITHOTRIPSY PROC UNILATERAL 07/01/1985 rt kidney PAST SURGICAL HISTORY OF 12/03/2019 CABG 1v, cryomaze and AVr REMV CATARACT EXTRACAP,INSERT LENS STENT PLACEMENT 07/01/2003 LAD TONSILLECTOMY HX as child REVIEW OF SYSTEMS: GENERAL: No weight loss, malaise or fevers. +weakness and fatigue HEENT: Negative for frequent or significant headaches, No changes in hearing or vision, no nose bleeds or other nasal problems RESPIRATORY: Negative for cough, wheezing + ROGEL CARDIOVASCULAR: Negative for chest pain, leg swelling or palpitations. GI: Negative for abdominal discomfort, blood in stools or black stools or change in bowel habits : No history of dysuria, frequency or incontinence MUSCULOSKELETAL: Negative for: joint pain or swelling, back pain and muscle pain SKIN: Negative for lesions, rash, and itching. HEMATOLOGY/LYMPHOLOGY: Negative for prolonged bleeding, bruising easily or swollen nodes. NEURO: No history of headaches, syncope, paralysis, seizures or (more content not included)... Normal [facility] CNPNon 01-26-2025 CNPN Telephone ([facility]) ----- JEMIMA BRADFORD ([id number]) 1940 F Date Time Provider Department 01/26/25 GIA CLAYTON During your visit today, we recorded the following information about you: Gia Clayton RN 01/26/2025 2:00 PM Signed REBECCA Florez from [place] [facility] group at [facility] calling to clarify urgent visit to sales office manager, Dr Dan. Pt called to report Katie recommended pt to see them brenda, but pt could not explain why. Pt is scheduled with her regular cash posting specialist, Dr Ricci, Mar 29. MM: Please advise REBECCA Messina Mindy M, PA-C 01/26/2025 2:29 PM Signed I told the patient it would be a good idea to call her cash posting specialist with her new symptoms. She does report that every 10-14 days she feels like her head swims and she has to hold on to something. She describes it as feeling like her head is going around and it lasts about 45 seconds. It has happened 5-6 times over the last few months. I told her she should make sure cash posting specialist didn't feel it may be due to her underlying arrhythmia and/or leaky heart valve. HALI Montana Natalie, RN 01/26/2025 2:37 PM Signed VM left with response. Gia Clayton RN Allergies As of Date: 01/26/2025 Noted Allergy Reaction BIAXIN (CLARITHROMYCIN) 06/16/2013 16 - Unknown CONTRAST DYE 06/16/2013 12 - Shortness of Breath NICKEL 07/05/2020 16 - Unknown NITROUS OXIDE 12/21/2014 11 - Vomiting SYNVISC (HYLAN G-F 20) 06/16/2013 7 - Swelling THORAZINE (CHLORPROMAZINE) 06/16/2013 2 - Rash Date Reviewed: 01/26/2025 Reviewed by: Katie Cook PA-C - Fully Assessed Reason for Visit: Urgent visit [Other] Prescriptions as of 01/26/2025 - atorvastatin (LIPITOR) 80 mg tablet Take 80 mg by mouth. - gabapentin (NEURONTIN) 300 mg capsule Take 300 mg by mouth. - bumetanide (BUMEX) 1 mg tablet Take 1 mg by mouth two times a day. - montelukast (SINGULAIR) 10 mg tablet Take 10 mg by mouth once daily. - metoprolol tartrate, short acting, (LOPRESSOR) 25 mg tablet Take 1/2 tablet by mouth twice daily. - levothyroxine (SYNTHROID) 50 mcg tablet levothyroxine 50 mcg tablet TAKE 1 TABLET BY MOUTH DAILY FOR HYPOTHYROIDISM - apixaban (ELIQUIS) 5 mg tab(s) Eliquis 5 mg tablet Take 1 tablet twice a day by oral route for 90 days. - calcium carbonate (CALTRATE) 600 mg calcium (1,500 mg) tab 600 mg. - melatonin 10 mg tab 10 mg. - spironolactone (ALDACTONE) 25 mg tablet Take 25 mg by mouth once daily. - esomeprazole (NEXIUM) 40 mg capsule Take 40 mg by mouth as directed. Twice per week - nitroglycerin sublingual (NITROQUICK) 0.4 mg SL tablet Dissolve 1 tablet under the tongue every 5 minutes as needed. - COQ10, UBIQUINOL, ORAL Take 1 tablet by mouth once daily. - Chromium Picolinate 500 mcg cap Take 1 tablet by mouth once daily. - MAGNESIUM ORAL Take 1 tablet by mouth once daily. 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,*07/27/2015 Coronary artery disease involving elem ferguson*07/28/2015 Ductal carcinoma in situ (DCIS) of right breast*04/07/2021 Malignant neoplasm of upper lobe of left lung (*05/16/2022 Cerebrovascular accident (CVA) (HCC) [I63.9] 05/30/2022 Former smoker [Z87.891] 05/30/2022 JENNIFER (obstructive sleep apnea) [G47.33] 05/30/2022 Chronic congestive heart failure (HCC) [I50.9] 05/30/2022 Chronic kidney disease [N18.9] 05/30/2022 Hx of aortic valve repair [Z98.890, Z86.79] 05/30/2022 Mass of upper lobe of left lung [R91.8] 06/13/2022 06/22/2022 Obesity, Class I, BMI 30-34.9 [E66.811] 06/24/2022 Iron deficiency anemia [D50.9] 12/14/2024 Stage 3a chronic kidney disease (HCC) [N18.31] 01/26/2025 Encounter Status:Closed by GIA CLAYTON on 01/26/25 Normal [facility] Comprehensive metabolic 2000 panelon 01-26-2025 Albumin [Mass/Vol] 4.2 g/dL Normal 3.9-4.9 [facility] Comment on above: Order Comment: Speci men Type: BLOOD SPECIMENOrdering Facility: [facility] Address: [address] [place] [address] [place] [address] Performed By: #### 2 4323-8 ####[facility] LABCLIA [id number] [place] [address] ALP [Catalytic activity/Vol] 114 U/L Normal 34-123 [facility] Comment on above: Order Comment: Speci men Type: BLOOD SPECIMENOrdering Facility: [facility] Address: [address] [place] [address] Performed By: #### 2 4323-8 ####[facility] LABCLIA [id number] [place] [address] ALT [Catalytic activity/Vol] 13 U/L Normal 7-38 [facility] Comment on above: Order Comment: Speci men Type: BLOOD SPECIMENOrdering Facility: [facility] Address: [address] [place] [address] Performed By: #### 2 4323-8 ####[facility] LABCLIA [id number] [place] [address] Anion gap [Moles/Vol] 10 mmol/L Normal 8-15 [facility] Comment on above: Order Comment: Speci men Type: BLOOD SPECIMENOrdering Facility: [facility] Address: [address] [place] [address] Performed By: #### 2 4323-8 ####[facility] LABCLIA [id number] [place] [address] AST [Catalytic activity/Vol] 21 U/L Normal 13-35 [facility] Comment on above: Order Comment: Speci men Type: BLOOD SPECIMENOrdering Facility: [facility] Address: [address] [place] [address] Performed By: #### 2 4323-8 ####[facility] LABCLIA [id number] [place] [address] Bilirubin [Mass/Vol] 0.4 mg/dL Normal 0.2-1.3 [facility] Comment on above: Order Comment: Speci men Type: BLOOD SPECIMENOrdering Facility: [facility] Address: [address] [place], [place] [address] Performed By: #### 2 4323-8 ####[facility] LABCLIA [id number] [place] [address] Calcium [Mass/Vol] 9.5 mg/dL Normal 8.5-10.2 [facility] Comment on above: Order Comment: Speci men Type: BLOOD SPECIMENOrdering Facility: [facility] Address: [address] [place] [address] Performed By: #### 2 4323-8 ####[facility] LABCLIA [id number] [place] [address] Chloride [Moles/Vol] 104 mmol/L Normal 98-107 [facility] Comment on above: Order Comment: Speci men Type: BLOOD SPECIMENOrdering Facility: [facility] Address: [address] [place] [address] Performed By: #### 2 4323-8 ####[facility] LABCLIA [id number] [place] [address] CO2 [Moles/Vol] 27 mmol/L Normal 22-30 [facility] Comment on above: Order Comment: Speci men Type: BLOOD SPECIMENOrdering Facility: [facility] Address: [address] [place], [place] [address] Performed By: #### 2 4323-8 ####[facility] LABCLIA [id number] [place] [address] Creatinine [Mass/Vol] 1.26 mg/dL High 0.58-0.96 [facility] Comment on above: Order Comment: Speci men Type: BLOOD SPECIMENOrdering Facility: [facility] Address: [address] [place] [address] Performed By: #### 2 4323-8 ####[facility] LABCLIA [id number] [place] [address] eGFRcr SerPlBld CKD-EPI 2020 42 mL/min/1.73m??? Low >=60 [facility] Comment on above: Order Comment: Mary Kay rausch Type: BLOOD SPECIMENOrdering Facility: [facility] Address: [address] [place] [address] Result Comment: Dee mated Glomerular Filtration Rate (eGFR) is calculated using the 2020 CKD-EPI creatinine equation. This equation utilizes serum creatinine, sex, and age as parameters. The creatinine assay has traceable calibration to isotope dilution-mass spectrometry. Refer to KDIGO guidelines for clinical interpretation. In patients with unstable renal function, e.g. those with acute kidney injury, the eGFR may not accurately reflect actual GFR. Performed By: #### 2 4323-8 ####[facility] LABCLIA [id number] [place] [address] Glucose [Mass/Vol] 129 mg/dL High 74-99 [facility] Comment on above: Order Comment: Mary Kay rausch Type: BLOOD SPECIMENOrdering Facility: [facility] Address: [address] [id number] Result Comment: The [place] Diabetes Association (ADA) provides guidance for cutoff [...] Standards of Medical Care in Diabetes 2016, [place] [employer]. Diabetes Care. 2016.39(Suppl 1). Performed By: #### 2 4323-8 ####[facility] LABCLIA [id number] [place] [address] Potassium [Moles/Vol] 4.1 mmol/L Normal 3.7-5.1 [facility] Comment on above: Order Comment: Mary Kay rausch Type: BLOOD SPECIMENOrdering Facility: [facility] Address: [address] [place] [address] Performed By: #### 2 4323-8 ####[facility] LABCLIA [id number] [place] [address] Protein [Mass/Vol] 6.6 g/dL Normal 6.3-8.0 [facility] Comment on above: Order Comment: Speci men Type: BLOOD SPECIMENOrdering Facility: [facility] Address: [address] [place] [address] Performed By: #### 2 4323-8 ####[facility] LABCLIA [id number] [place] [address] Sodium [Moles/Vol] 141 mmol/L Normal 136-144 [facility] Comment on above: Order Comment: Speci men Type: BLOOD SPECIMENOrdering Facility: [facility] Address: [address] [place] [address] Performed By: #### 2 4323-8 ####[facility] LABCLIA [id number] [place] [address] Urea nitrogen [Mass/Vol] 33 mg/dL High 7-21 [facility] Comment on above: Order Comment: Speci men Type: BLOOD SPECIMENOrdering Facility: [facility] Address: [address] [place] [address] Performed By: #### 2 4323-8 ####[facility] LABCLIA [id number] [place] [address] Ferritin SerPl-mCnc 2024 Ferritin [Mass/Vol] 183.0 ng/mL Normal 14.7-205.1 [facility] Comment on above: Order Comment: Speci men Type: BLOOD SPECIMENOrdering Facility: [facility] Address: [address] [place] [address] Performed By: #### 5 0190-8, 2276-4 ####[facility] LABCLIA [id number] [place] [address] [place] Iron and Iron binding capaci ty panelon 01-26-2025 Iron [Mass/Vol] 48 ug/dL Normal 41-186 [facility] Comment on above: Order Comment: Speci men Type: BLOOD SPECIMENOrdering Facility: [facility] Address: [address] [place] [address] Performed By: #### 5 0190-8, 2276-4 ####[facility] LABCLIA [id number] [address] Iron binding capacity [Mass/Vol] 288 ug/dL Normal 232-386 [facility] Comment on above: Order Comment: Speci men Type: BLOOD SPECIMENOrdering Facility: [facility] Address: [address] [place] [address] Performed By: #### 5 0190-8, 6-4 ####[facility] LABIA [id number] [address] Iron/TIBC [Molar ratio] 16.7 % Normal 15.0-57.0 [facility] Comment on above: Order Comment: Speci men Type: BLOOD SPECIMENOrdering Facility: [facility] Address: [address] [place] [address] Performed By: #### 5 0190-8, 6-4 ####[facility] LABIA [id number] [address] [facility] Office Visiton 12-15-2024 Follow-up visit [id number] Kaushal Bradford ra 1940 F Date Provider Department Center 12/15/2024 271-VONDA, KENDY CARD Arianna Hos Family History Problem Relation Age of Onset Other Mother Stroke Father Other Father Other Father Breast cancer Sister Other Brother 50 Other Brother Family Status - Relation Status Age at Mother Father Sister Alive Brother Alive Level of Service:78740 HI OFFICE/OUTPATIENT ESTABLISHED MOD MDM 30 MIN Normal [facility] CBC W Auto Differential pane l (Bld)on 12-14-2024 Basophils (Bld) [#/Vol] 0.05 10*3/uL Normal <0.11 [facility] Comment on above: Order Comment: Speci men Type: BLOOD SPECIMENOrdering Facility: [facility] Address: [address] [place] [address] Performed By: #### 5 7021-8 ####[facility] LABCLIA [id number] [place] [address] Basophils/100 WBC (Bld) 0.8 % Normal [facility] Comment on above: Order Comment: Speci men Type: BLOOD SPECIMENOrdering Facility: [facility] Address: [address] [place] [address] Performed By: #### 5 7021-8 ####[facility] LABCLIA [id number] [place] [address] Differential cell count method Nom (Bld) Auto Normal [facility] Comment on above: Order Comment: Speci men Type: BLOOD SPECIMENOrdering Facility: [facility] Address: [address] [place] [address] Performed By: #### 5 7021-8 ####[facility] LABCLIA [id number] [place] [address] Eosinophils (Bld) [#/Vol] 0.30 10*3/uL Normal <0.46 [facility] Comment on above: Order Comment: Speci men Type: BLOOD SPECIMENOrdering Facility: [facility] Address: [address] [place] [address] Performed By: #### 5 7021-8 ####[facility] LABCLIA [id number] [place] [address] Eosinophils/100 WBC (Bld) 5.0 % Normal [facility] Comment on above: Order Comment: Speci men Type: BLOOD SPECIMENOrdering Facility: [facility] Address: [address] [place] [address] Performed By: #### 5 7021-8 ####[facility] LABCLIA [id number] [place] [address] Erythrocyte distribution width (RBC) [Ratio] 17.1 % High 11.5-15.0 [facility] Comment on above: Order Comment: Speci men Type: BLOOD SPECIMENOrdering Facility: [facility] Address: [address] [place] [address] Performed By: #### 5 7021-8 ####[facility] LABCLIA [id number] [place] [address] Hematocrit (Bld) [Volume fraction] 27.5 % Low 36.0-46.0 [facility] Comment on above: Order Comment: Speci men Type: BLOOD SPECIMENOrdering Facility: [facility] Address: [address] [place] [address] Performed By: #### 5 7021-8 ####[facility] LABCLIA [id number] [place] [address] Hemoglobin (Bld) [Mass/Vol] 8.4 g/dL Low 11.5-15.5 [facility] Comment on above: Order Comment: Speci men Type: BLOOD SPECIMENOrdering Facility: [facility] Address: [address] [place] [address] Performed By: #### 5 7021-8 ####[facility] LABCLIA [id number] [place] [address] Immature granulocytes (Bld) [#/Vol] 10*3/uL Normal <0.10 [facility] Comment on above: Order Comment: Speci men Type: BLOOD SPECIMENOrdering Facility: [facility] Address: [address] [place] [address] Performed By: #### 5 7021-8 ####[facility] LABIA [id number] [place] [address] Immature granulocytes/100 WBC (Bld) 0.2 % Normal [facility] Comment on above: Order Comment: Speci men Type: BLOOD SPECIMENOrdering Facility: [facility] Address: [address] [place] [address] Performed By: #### 5 7021-8 ####[facility] LABCLIA [id number] [place] [address] Lymphocytes (Bld) [#/Vol] 1.34 10*3/uL Normal 1.00-4.00 [facility] Comment on above: Order Comment: Speci men Type: BLOOD SPECIMENOrdering Facility: [facility] Address: [address] [place] [address] Performed By: #### 5 7021-8 ####[facility] LABCLIA [id number] [place] [address] Lymphocytes/100 WBC (Bld) 22.2 % Normal [facility] Comment on above: Order Comment: Speci men Type: BLOOD SPECIMENOrdering Facility: [facility] Address: [address] [place] [address] Performed By: #### 5 7021-8 ####[facility] LABCLIA [id number] [place] [address] MCH (RBC) [Entitic mass] 26.3 pg Normal 26.0-34.0 [facility] Comment on above: Order Comment: Speci men Type: BLOOD SPECIMENOrdering Facility: [facility] Address: [address] [place] [address] Performed By: #### 5 7021-8 ####[facility] LABCLIA [id number] [place] [address] MCHC (RBC) [Mass/Vol] 30.5 g/dL Normal 30.5-36.0 [facility] Comment on above: Order Comment: Speci men Type: BLOOD SPECIMENOrdering Facility: [facility] Address: [address] [place] [address] Performed By: #### 5 7021-8 ####[facility] LABCLIA [id number] [place] [address] MCV (RBC) [Entitic vol] 85.9 fL Normal 80.0-100.0 [facility] Comment on above: Order Comment: Speci men Type: BLOOD SPECIMENOrdering Facility: [facility] Address: [address] [place] [address] Performed By: #### 5 7021-8 ####[facility] LABCLIA [id number] [place] [address] Monocytes (Bld) [#/Vol] 0.49 10*3/uL Normal <0.87 [facility] Comment on above: Order Comment: Speci men Type: BLOOD SPECIMENOrdering Facility: [facility] Address: [address] [place] [address] Performed By: #### 5 7021-8 ####[facility] LABCLIA [id number] [place] [address] Monocytes/100 WBC (Bld) 8.1 % Normal [facility] Comment on above: Order Comment: Speci men Type: BLOOD SPECIMENOrdering Facility: [facility] Address: [address] [place] [address] Performed By: #### 5 7021-8 ####[facility] LABCLIA [id number] [place] [address] Neutrophils (Bld) [#/Vol] 3.85 10*3/uL Normal 1.45-7.50 [facility] Comment on above: Order Comment: Speci men Type: BLOOD SPECIMENOrdering Facility: [facility] Address: [address] [place] [address] Performed By: #### 5 7021-8 ####[facility] LABCLIA [id number] [place] [address] Neutrophils/100 WBC (Bld) 63.7 % Normal [facility] Comment on above: Order Comment: Speci men Type: BLOOD SPECIMENOrdering Facility: [facility] Address: [address] [place] [address] Performed By: #### 5 7021-8 ####[facility] LABCLIA [id number] [place] [address] Nucleated RBC (Bld) [#/Vol] 10*3/uL Normal <0.01 [facility] Comment on above: Order Comment: Speci men Type: BLOOD SPECIMENOrdering Facility: [facility] Address: [address] [place] [address] Performed By: #### 5 7021-8 ####[facility] LABCLIA [id number] [place] [address] Nucleated RBC/100 WBC (Bld) [Ratio] 0.0 /100 WBC Normal [facility] Comment on above: Order Comment: Speci men Type: BLOOD SPECIMENOrdering Facility: [facility] Address: [address] [place] [address] Performed By: #### 5 7021-8 ####[facility] LABCLIA [id number] [place] [address] Platelet mean volume (Bld) [Entitic vol] 10.1 fL Normal 9.0-12.7 [facility] Comment on above: Order Comment: Speci men Type: BLOOD SPECIMENOrdering Facility: [facility] Address: [address] [place] [address] Performed By: #### 5 7021-8 ####[facility] LABCLIA [id number] [place] [address] Platelets (Bld) [#/Vol] 196 10*3/uL Normal 150-400 [facility] Comment on above: Order Comment: Speci men Type: BLOOD SPECIMENOrdering Facility: [facility] Address: [address] [place] [address] Performed By: #### 5 7021-8 ####[facility] LABCLIA [id number] [place] [address] RBC (Bld) [#/Vol] 3.20 10*6/uL Low 3.90-5.20 [facility] Comment on above: Order Comment: Speci men Type: BLOOD SPECIMENOrdering Facility: [facility] Address: [address] [place] [address] Performed By: #### 5 7021-8 ####[facility]ITAL[facility]ENTERIA [id number] [place] [address] WBC (Bld) [#/Vol] 6.04 10*3/uL Normal 3.70-11.00 [facility] Comment on above: Order Comment: Speci men Type: BLOOD SPECIMENOrdering Facility: [facility] Address: [address] [place] [address] Performed By: #### 5 7021-8 ####[facility] LABIA [id number] [place] [address] CNOVSPon 12-14-2024 CNOVSP Visit (SP) Office (HE[place]AS[place]) ----- JEMIMA BRADFORD ([id number]) 1940 F Date Time Provider Department 12/14/24 10:00 AM KATIE COOK HEMASA During your visit today, we recorded the following information about you: Temperature Pulse Respiration Blood pressure 97.5 degrees 70/minute 16/minute 115/73 Weight Height 78.2 kg 1.651 m Katie Cook PA-C 12/14/2024 10:46 AM Signed PATIENT NAME: Jemima Bradford DATE: 12/14/2024 PRIMARY CARE PHYSICIAN: Jasmyne Casillas, [place] ([facility]) OTHER PHYSICIANS: Dr. Keene, Dr. Ferrari ([facility] Cardiology, [place]), Dr. Pizarro, Dr. Arguelles, Dr. Shaniqua Ellsworth (Pulmonary, [place]), Dr. Mitzi Dr. Guy Amaral ([facility] orthopedic surgery) Portions of this encounter note have been copied from the note from 12/07/2024 and has been updated where appropriate, and reflect my current medical decision making from today. 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 INTERIM HISTORY: Patient is an 84-year-old female with a history of DCIS, lung cancer, and mild renal insufficiency, currently managed with oral iron supplementation, presenting for evaluation of worsening anemia. In May 2024, labs revealed iron deficiency with a hemoglobin level of 11.4 g/dL. She was started on oral iron supplementation. By August, her hemoglobin decreased to 10.2 g/dL, and further declined to the 8 g/dL range during a cardiology visit in October 2024. A comprehensive GI workup, including endoscopy and colonoscopy, showed no significant findings to explain the anemia. Recent labs showed normal B12 and folate levels, and no evidence of hemolysis. M protein was negative. Iron studies were essentially normal, but ferritin was on the low end of normal. EPO level is pending. Patient reports no significant changes in how she feels and denies any new symptoms. She is scheduled to see her shake cutter this week. MEDICATIONS: atorvastatin (LIPITOR) 80 mg tablet Take 80 mg by mouth. ferrous sulfate 325 mg (65 mg iron) tablet Take 325 mg by mouth. gabapentin (NEURONTIN) 300 mg capsule Take 300 mg by mouth. bumetanide (BUMEX) 1 mg tablet Take 1 mg by mouth two times a day. montelukast (SINGULAIR) 10 mg tablet Take 10 mg by mouth once daily. metoprolol tartrate, short acting, (LOPRESSOR) 25 mg tablet Take 1/2 tablet by mouth twice daily. levothyroxine (SYNTHROID) 50 mcg tablet levothyroxine 50 mcg tablet TAKE 1 TABLET BY MOUTH DAILY FOR HYPOTHYROIDISM apixaban (ELIQUIS) 5 mg tab(s) Eliquis 5 mg tablet Take 1 tablet twice a day by oral route for 90 days. calcium carbonate (CALTRATE) 600 mg calcium (1,500 mg) tab 600 mg. melatonin 10 mg tab 10 mg. spironolactone (ALDACTONE) 25 mg tablet Take 25 mg by mouth once daily. esomeprazole (NEXIUM) 40 mg capsule Take 40 mg by mouth as directed. Twice per week nitroglycerin sublingual (NITROQUICK) 0.4 mg SL tablet Dissolve 1 tablet under the tongue every 5 minutes as needed. COQ10, UBIQUINOL, ORAL Take 1 tablet by mouth once daily. Chromium Picolinate 500 mcg cap Take 1 tablet by mouth once daily. MAGNESIUM ORAL Take 1 tablet by mouth once daily. 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 Aortic valve stenosis mild Arthritis Asthma controlled no inhalers Coronary artery disease Hypercholesteremia Hypertension Polymyalgia rheumatica (HCC) PAST SURGICAL HISTORY: PAST SURGICAL HISTORY Procedure Laterality Date APPENDECTOMY 07/01/1978 ARTHROSCOPY KNEE MEDIAL RELEASE 2002,2010 rt AND Lt knee ARTHRP KNE CONDYLEANDPLATU MEDIALANDLAT COMPARTMENTS Right 07/01/2013 right x2 BREAST LUMPECTOMY HX BUNIONECTOMY, LAPIDUS-TYPE 07/01/2010 rt toe CHOLECYSTECTOMY 07/01/2005 COLONOSCOPY AND POLYPECTOMY 2004, 2005, 2009 x 3 CYSTO LASER TX URETERAL CALC 07/01/2009 stent placement CYSTO W/RETROGRADE x 6 DANDC (INCOMPLETE AB), ANY TRIMESTER 07/01/1974 EXCISE EXCESS SKIN TISSUE,ABDOMEN 07/01/1994 Abdominalplasty KNEE SURGERY HX Left 07/27/2024 LITHOTRIPSY PROC UNILATERAL 07/01/1985 rt kidney PAST SURGICAL HISTORY OF 12/03/2019 CABG 1v, cryomaze and AVr REMV CATARACT EXTRACAP,INSERT LENS STENT PLACEMENT 07/01/2003 LAD TONSILLECTOMY HX as child REVIEW OF SYSTEMS: GENERAL: No weight loss, malaise or fevers. +weakness and fatigue HEENT: Negative for frequent or significant headaches, No changes in hearing or vision, no nose bleeds or other nasal problems RESPIRATORY: Negative for cough, wheezing + ROGEL CARDIOVASCULAR: Negative for chest pain, leg swelling or palpitations. GI: Negative for abdominal discomfort, blood i (more content not included)... Normal [facility] Comprehensive metabolic 2000 panelon 12-14-2024 Albumin [Mass/Vol] 4.4 g/dL Normal 3.9-4.9 [facility] Comment on above: Order Comment: Speci men Type: BLOOD SPECIMENOrdering Facility: [facility] Address: [address] [place] [address] Performed By: #### 2 4323-8 ####[facility] LABCLIA [id number] [place] [address] ALP [Catalytic activity/Vol] 114 U/L Normal 34-123 [facility] Comment on above: Order Comment: Speci men Type: BLOOD SPECIMENOrdering Facility: [facility] Address: [address] [place] [address] Performed By: #### 2 4323-8 ####[facility] LABCLIA [id number] [place] [address] ALT [Catalytic activity/Vol] 11 U/L Normal 7-38 [facility] Comment on above: Order Comment: Speci men Type: BLOOD SPECIMENOrdering Facility: [facility] Address: [address] [place] [address] Performed By: #### 2 4323-8 ####[facility] LABCLIA [id number] [place] [address] Anion gap [Moles/Vol] 12 mmol/L Normal 8-15 [facility] Comment on above: Order Comment: Speci men Type: BLOOD SPECIMENOrdering Facility: [facility] Address: [address] [place] [address] Performed By: #### 2 4323-8 ####[facility] LABCLIA [id number] [place] [address] AST [Catalytic activity/Vol] 20 U/L Normal 13-35 [facility] Comment on above: Order Comment: Speci men Type: BLOOD SPECIMENOrdering Facility: [facility] Address: [address] [place] [address] Performed By: #### 2 4323-8 ####[facility] LABCLIA [id number] [place] [address] Bilirubin [Mass/Vol] 0.4 mg/dL Normal 0.2-1.3 [facility] Comment on above: Order Comment: Speci men Type: BLOOD SPECIMENOrdering Facility: [facility] Address: [address] [place] [address] Performed By: #### 2 4323-8 ####[facility]ITAL[facility] LABCLIA [id number] [place] [address] Calcium [Mass/Vol] 9.6 mg/dL Normal 8.5-10.2 [facility] Comment on above: Order Comment: Speci men Type: BLOOD SPECIMENOrdering Facility: [facility] Address: [address] [place] [address] Performed By: #### 2 4323-8 ####[facility]ITAL[facility] LABCLIA [id number] [place] [address] Chloride [Moles/Vol] 104 mmol/L Normal 98-107 [facility] Comment on above: Order Comment: Speci men Type: BLOOD SPECIMENOrdering Facility: [facility] Address: [address] [place] [address] Performed By: #### 2 4323-8 ####[facility]CHIC[facility] LABCLIA [id number] [place] [address] CO2 [Moles/Vol] 25 mmol/L Normal 22-30 [facility] Comment on above: Order Comment: Speci men Type: BLOOD SPECIMENOrdering Facility: [facility] Address: [address] [place] [address] Performed By: #### 2 4323-8 ####[facility] LABCLIA [id number] [place] [address] Creatinine [Mass/Vol] 1.20 mg/dL High 0.58-0.96 [facility] Comment on above: Order Comment: Speci men Type: BLOOD SPECIMENOrdering Facility: [facility] Address: [address] [place] [address] Performed By: #### 2 4323-8 ####[facility] LABCLIA [id number] [place] [address] Creatinine and Glomerular filtration rate.predicted panel (S/P/Bld) 45 mL/min/1.73m??? Low >=60 [facility] Comment on above: Order Comment: Mary Kay rausch Type: BLOOD SPECIMENOrdering Facility: [facility] Address: [address] [place] [address] Result Comment: Dee mated Glomerular Filtration Rate (eGFR) is calculated using the 2020 CKD-EPI creatinine equation. This equation utilizes serum creatinine, sex, and age as parameters. The creatinine assay has traceable calibration to isotope dilution-mass spectrometry. Refer to KDIGO guidelines for clinical interpretation. In patients with unstable renal function, e.g. those with acute kidney injury, the eGFR may not accurately reflect actual GFR. Performed By: #### 2 4323-8 ####[facility] LABCLIA [id number] [place] [address] Glucose [Mass/Vol] 125 mg/dL High 74-99 [facility] Comment on above: Order Comment: Specjose rausch Type: BLOOD SPECIMENOrdering Facility: [facility] Address: [address] [place] [address] Result Comment: The [place] Diabetes Association (ADA) provides guidance for cutoff [...] Standards of Medical Care in Diabetes 2016, [place] [employer]. Diabetes Care. 2016.39(Suppl 1). Performed By: #### 2 4323-8 ####[facility] LABCLIA [id number] [place] [address] Potassium [Moles/Vol] 4.1 mmol/L Normal 3.7-5.1 [facility] Comment on above: Order Comment: Speci men Type: BLOOD SPECIMENOrdering Facility: [facility] Address: [address] [place] [address] Performed By: #### 2 4323-8 ####[facility] LABCLIA [id number] [place] [address] Protein [Mass/Vol] 6.7 g/dL Normal 6.3-8.0 [facility] Comment on above: Order Comment: Speci men Type: BLOOD SPECIMENOrdering Facility: [facility] Address: [address] [place] [address] Performed By: #### 2 4323-8 ####[facility] LABCLIA [id number] [place] [address] Sodium [Moles/Vol] 141 mmol/L Normal 136-144 [facility] Comment on above: Order Comment: Speci men Type: BLOOD SPECIMENOrdering Facility: [facility] Address: [address] [place] [address] Performed By: #### 2 4323-8 ####[facility] LABIA [id number] [place] [address] Urea nitrogen [Mass/Vol] 32 mg/dL High 7-21 [facility] Comment on above: Order Comment: Speci men Type: BLOOD SPECIMENOrdering Facility: [facility] Address: [address] [place] [address] Performed By: #### 2 4323-8 ####[facility] LABCLIA [id number] [place] [address] EPO SerPl[facility]Cn[facility] 12-14-2024 Erythropoietin (EPO) Qn 37.1 mIU/mL High 2.6-18.5 [facility] Comment on above: Order Comment: Speci men Type: BLOOD SPECIMEN [facility]ing [facility] Address: [address] [place] [address] Performed By: #### 1 5061-5 #### [facility] CLIA [id number] [address] [place] [address] [place] CBC W Auto Differential pane l (Bld)on 12-07-2024 Basophils (Bld) [#/Vol] 0.06 10*3/uL Normal <0.11 [facility] Comment on above: Order Comment: Speci men Type: BLOOD SPECIMEN [facility]ing [facility] Address: [address] [place] [address] Performed By: #### 1 5061-5 #### [facility] CLIA [id number] [address] [place] [address] [place] Basophils/100 WBC (Bld) 0.9 % Normal [facility] Comment on above: Order Comment: Speci men Type: BLOOD SPECIMEN [facility]ing [facility] Address: [address] [place] [address] Performed By: #### 1 506-5 #### [facility] CLIA [id number] [address] [place] [address] [place] Differential cell count method Nom (Bld) Auto Normal [facility] Comment on above: Order Comment: Speci men Type: BLOOD SPECIMEN [facility] Address: [address] [place] [address] Performed By: #### 1 5061-5 #### [facility] CLIA [id number] [address] [place] [address] [place] Eosinophils (Bld) [#/Vol] 0.22 10*3/uL Normal <0.46 [facility] Comment on above: Order Comment: Speci men Type: BLOOD SPECIMEN [facility] Address: [address] [place] [address] Performed By: #### 1 5061-5 #### [facility] CLIA [id number] [address] [id number] [address] [place] Eosinophils/100 WBC (Bld) 3.4 % Normal [facility] Comment on above: Order Comment: Speci men Type: BLOOD SPECIMEN [facility]ing Facility: [facility] Address: [address] [place] [address] Performed By: #### 1 5061-5 #### [facility] CLIA [id number] [address] [place] [address] [place] Erythrocyte distribution width (RBC) [Ratio] 16.5 % High 11.5-15.0 [facility] Comment on above: Order Comment: Speci men Type: BLOOD SPECIMEN [facility]ing [facility]: [facility] Address: [address] [place] [address] Performed By: #### 1 5061-5 #### [facility] CLIA [id number] [address] [place] [address] [place] Hematocrit (Bld) [Volume fraction] 27.6 % Low 36.0-46.0 [facility] Comment on above: Order Comment: Speci men Type: BLOOD SPECIMEN [facility]ing Facility: [facility] Address: [address] [place] [address] Performed By: #### 1 5061-5 #### [facility] CLIA [id number] [address] [place] [address] [place] Hemoglobin (Bld) [Mass/Vol] 8.4 g/dL Low 11.5-15.5 [facility] Comment on above: Order Comment: Speci men Type: BLOOD SPECIMEN [facility] Address: [address] [place] [address] Performed By: #### 1 5061-5 #### [facility] CLIA [id number] [address] [place] [address] [place] Immature granulocytes (Bld) [#/Vol] 10*3/uL Normal <0.10 [facility] Comment on above: Order Comment: Speci men Type: BLOOD SPECIMEN Ordering Facility: [facility] Address: [address] [place] [address] Performed By: #### 1 5061-5 #### [facility] CLIA [id number] [address] [place] [address] [place] Immature granulocytes/100 WBC (Bld) 0.3 % Normal [facility] Comment on above: Order Comment: Speci men Type: BLOOD SPECIMEN [facility]ing Facility: [facility] Address: [address] [place] [address] Performed By: #### 1 5061-5 #### [facility] CLIA [id number] [address] [place] [address] [place] Lymphocytes (Bld) [#/Vol] 1.62 10*3/uL Normal 1.00-4.00 [facility] Comment on above: Order Comment: Speci men Type: BLOOD SPECIMEN [facility]ing [facility]: [facility] Address: [address] [place] [address] Performed By: #### 1 506-5 #### [facility] CLIA [id number] [address] [place] [address] [place] Lymphocytes/100 WBC (Bld) 25.4 % Normal [facility] Comment on above: Order Comment: Speci men Type: BLOOD SPECIMEN [facility] Facility: [facility] Address: [address] [place] [address] Performed By: #### 1 5061-5 #### [facility] CLIA [id number] [address] [place] [address] [place] MCH (RBC) [Entitic mass] 26.0 pg Normal 26.0-34.0 [facility] Comment on above: Order Comment: Speci men Type: BLOOD SPECIMEN [facility] Address: [address] [place] [address] Performed By: #### 1 5061-5 #### [facility] CLIA [id number] [address] [place] [address] [place] MCHC (RBC) [Mass/Vol] 30.4 g/dL Low 30.5-36.0 [facility] Comment on above: Order Comment: Speci men Type: BLOOD SPECIMEN [facility] Facility: [facility] Address: [address] [place] [address] Performed By: #### 1 5061-5 #### [facility] CLIA [id number] [address] [place] [address] [place] MCV (RBC) [Entitic vol] 85.4 fL Normal 80.0-100.0 [facility] Comment on above: Order Comment: Speci men Type: BLOOD SPECIMEN [facility] Address: [address] [place] [address] Performed By: #### 1 5061-5 #### [facility] CLIA [id number] [address] [place] [address] [place] Monocytes (Bld) [#/Vol] 0.72 10*3/uL Normal <0.87 [facility] Comment on above: Order Comment: Speci men Type: BLOOD SPECIMEN [facility] Address: [address] [place] [address] Performed By: #### 1 5061-5 #### [facility] CLIA [id number] [address] [place] [address] [place] Monocytes/100 WBC (Bld) 11.3 % Normal [facility] Comment on above: Order Comment: Speci men Type: BLOOD SPECIMEN [facility] Address: [address] [place] [address] Performed By: #### 1 5061-5 #### [facility] CLIA [id number] [address] [place] [address] [place] Neutrophils (Bld) [#/Vol] 3.74 10*3/uL Normal 1.45-7.50 [facility] Comment on above: Order Comment: Speci men Type: BLOOD SPECIMEN [facility] Address: [address] [place] [address] Performed By: #### 1 5061-5 #### [facility] CLIA [id number] [address] [place] [address] [place] Neutrophils/100 WBC (Bld) 58.7 % Normal [facility] Comment on above: Order Comment: Speci men Type: BLOOD SPECIMEN [facility] Address: [address] [place] [address] Performed By: #### 1 5061-5 #### [facility] CLIA [id number] [address] [place] [address] [place] Nucleated RBC (Bld) [#/Vol] 10*3/uL Normal <0.01 [facility] Comment on above: Order Comment: Speci men Type: BLOOD SPECIMEN [facility] Address: [address] [place] [address] Performed By: #### 1 5061-5 #### [facility] CLIA [id number] [address] [place] [address] [place] Nucleated RBC/100 WBC (Bld) [Ratio] 0.0 /100 WBC Normal [facility] Comment on above: Order Comment: Speci men Type: BLOOD SPECIMEN [facility] Address: [address] [place] [address] Performed By: #### 1 5061-5 #### [facility] CLIA [id number] [address] [place] [address] [place] Platelet mean volume (Bld) [Entitic vol] 9.4 fL Normal 9.0-12.7 [facility] Comment on above: Order Comment: Speci men Type: BLOOD SPECIMEN [facility] Address: [address] [place] [address] Performed By: #### 1 5061-5 #### [facility] CLIA [id number] [address] [place] [address] [place] Platelets (Bld) [#/Vol] 212 10*3/uL Normal 150-400 [facility] Comment on above: Order Comment: Speci men Type: BLOOD SPECIMEN [facility] Address: [address] [place] [address] Performed By: #### 1 5061-5 #### [facility] CLIA [id number] [address] [place] [address] [place] RBC (Bld) [#/Vol] 3.23 10*6/uL Low 3.90-5.20 [facility] Comment on above: Order Comment: Speci men Type: BLOOD SPECIMEN [facility] Address: [address] [place] [address] Performed By: #### 1 5061-5 #### [facility] CLIA [id number] [address] [place] [address] [place] WBC (Bld) [#/Vol] 6.38 10*3/uL Normal 3.70-11.00 [facility] Comment on above: Order Comment: Speci men Type: BLOOD SPECIMEN [facility] Address: [address] [place] [address] Performed By: #### 1 5061-5 #### [facility] CLIA [id number] [address] [place] [address] [place] CNOVSPon 12-07-2024 CNOVSP Visit (SP) Office ([facility]) ----- JEMIMA BRADFORD ([id number]) 1940 F Date Time Provider Department 12/07/24 2:00 PM KATIE COOK During your visit today, we recorded the following information about you: Temperature Pulse Respiration Blood pressure 97.2 degrees 78/minute 18/minute 111/62 Weight 78.6 kg Katie Cook PA-C 12/07/2024 4:14 PM Signed PATIENT NAME: Jemima Bradford DATE: 12/07/2024 PRIMARY CARE PHYSICIAN: Jasmyne Casillas, [place] ([facility]) OTHER PHYSICIANS: Dr. Keene, Dr. Ferrari ([facility] Cardiology, [place]), Dr. Pizarro, Dr. Arguelles, Dr. Shaniqua Ellsworth (Pulmonary, [place]), Dr. Mitzi Amaral, Dr. Tovar ([facility] orthopedic surgery) Portions of this encounter note have been copied from the note from 09/21/2024 and has been updated where appropriate, and reflect my current medical decision making from today. 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 INTERIM HISTORY: Henrietta returns at the request of her PCP for worsening anemia. The patient reports that on June 10, 2024 her orthopedic surgeon noticed she was anemic with a pre-op hemoglobin of 11.3. He started her on OTC iron three times a day. She then saw Dr. Taylor who reportedly ordered iron studies, on 06/15/24 which showed a low iron saturation at 8.6%, ferritin of 20.3 and TIBC of 441. Her iron was decreased to once a day as well and she remains on that and is tolerating it well. Her anemia continued to worsen and on 10/26/24, Dr. Taylor did an EGD and colonoscopy. 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 Pathology with mild chronic gastritis and negative for helicobacter pylori and no evidence of celiac disease. The colonoscopy revealed three 3-5 mm sessile polyps in the transverse colon, five 3-5 mm sessile polyps in the descending colon and small internal hemorrhoids in the rectum. 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 She then had a negative stool for occult blood on 11/20/24. Her recent hemoglobin at her PCP office was 8.1 on 11/30/2024 with normal MCV of 85.2. Reticulocyte count of 2.8%, B12 697, folate 11.2, ferritin 46, iron saturation was improved to 49%. Today she reports that she has worsening shortness of breath with exertion and fatigue. Denies any dizziness, but has occasional lightheadedness. She was having some swelling in her legs, but this has improved. She denies any bleeding, but she is on Eliquis for her history of atrial fibrillation. She does report having had restless legs for 4-5 months. Her PCP gave her gabapentin for that which has helped. She is currently on On nexium 40 mg daily and has not started the Pepcid 40 mg daily recommended by her PCP. She denies any pain, cough, fever, chills, night sweats or weight loss. She denies any early satiety, except for last night. No diarrhea, constipation, nausea, vomiting, hematuria or other bleeding to report. She denies any chest pain. MEDICATIONS: oxyCODONE IR (ROXICODONE) 5 mg immediate release tablet TAKE ONE TABLET BY MOUTH EVERY 6 HOURS NEEDED FOR MORE SEVERE PAIN bumetanide (BUMEX) 1 mg tablet Take 1 mg by mouth two times a day. montelukast (SINGULAIR) 10 mg tablet Take 10 mg by mouth once daily. metoprolol tartrate, short acting, (LOPRESSOR) 25 mg tablet Take 1/2 tablet by mouth twice daily. levothyroxine (SYNTHROID) 50 mcg tablet levothyroxine 50 mcg tablet TAKE 1 TABLET BY MOUTH DAILY FOR HYPOTHYROIDISM apixaban (ELIQUIS) 5 mg tab(s) Eliquis 5 mg tablet Take 1 tablet twice a day by oral route for 90 days. calcium carbonate (CALTRATE) 600 mg calcium (1,500 mg) tab 600 mg. melatonin 10 mg tab 10 mg. rosuvastatin (CRESTOR) 40 mg tablet Take 40 mg by mouth once daily. spironolactone (ALDACTONE) 25 mg tablet Take 25 mg by mouth once daily. esomeprazole (NEXIUM) 40 mg capsule Take 40 mg by mouth as directed. Twice per week nitroglycerin sublingual (NITROQUICK) 0.4 mg SL tablet Dissolve 1 tablet under the tongue every 5 minutes as needed. COQ10, UBIQUINOL, ORAL Take 1 tablet by mouth once daily. Chromium Picolinate 500 mcg cap Take 1 tablet by mouth once daily. MAGNESIUM ORAL Take 1 tablet by mouth once daily. 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 Normal [facility] Comprehensive metabolic 2000 panelon 12-07-2024 Albumin [Mass/Vol] 4.4 g/dL Normal 3.9-4.9 [facility] Comment on above: Order Comment: Speci men Type: BLOOD SPECIMENOrdering Facility: [facility] Address: [address] [place] [address] Performed By: #### 2 532-0, 77347-5 ####[facility] [id number] [place] [address] ALP [Catalytic activity/Vol] 104 U/L Normal 34-123 [facility] Comment on above: Order Comment: Speci men Type: BLOOD SPECIMENOrdering Facility: [facility] Address: [address] [place] [address] Performed By: #### 2 532-0, ####[facility]CLIA [id number] [place] [address] ALT [Catalytic activity/Vol] 9 U/L Normal 7-38 [facility] Comment on above: Order Comment: Speci men Type: BLOOD SPECIMENOrdering Facility: [facility] Address: [address] [place] [address] Performed By: #### 2 532-0, 42339-0 ####[facility]CLIA [id number] [place] [address] Anion gap [Moles/Vol] 11 mmol/L Normal 8-15 [facility] Comment on above: Order Comment: Speci men Type: BLOOD SPECIMENOrdering Facility: [facility] Address: [address] [place] [address] Performed By: #### 2 532-0, ####[facility]IA [id number] [place] [address] AST [Catalytic activity/Vol] 17 U/L Normal 13-35 [facility] Comment on above: Order Comment: Speci men Type: BLOOD SPECIMENOrdering Facility: [facility] Address: [address] [place] [address] Performed By: #### 2 532-0, ####[facility] [id number] [place] [address] Bilirubin [Mass/Vol] 0.4 mg/dL Normal 0.2-1.3 [facility] Comment on above: Order Comment: Speci men Type: BLOOD SPECIMENOrdering Facility: [facility] Address: [address] [place] [address] Performed By: #### 2 532-0, ####[facility] [id number] [place] [address] Calcium [Mass/Vol] 9.5 mg/dL Normal 8.5-10.2 [facility] Comment on above: Order Comment: Speci men Type: BLOOD SPECIMENOrdering Facility: [facility] Address: [address] [place] [address] Performed By: #### 2 532-0, ####[facility] [id number] [place] [address] Chloride [Moles/Vol] 107 mmol/L Normal 98-107 [facility] Comment on above: Order Comment: Speci men Type: BLOOD SPECIMENOrdering Facility: [facility] Address: [address] [place] [address] Performed By: #### 2 532-0, 39028-3 ####[facility] [id number] [place] [address] CO2 [Moles/Vol] 25 mmol/L Normal 22-30 [facility] Comment on above: Order Comment: Speci men Type: BLOOD SPECIMENOrdering Facility: [facility] Address: [address] [place] [address] Performed By: #### 2 532-0, ####[facility] [id number] [place] [address] Creatinine [Mass/Vol] 1.22 mg/dL High 0.58-0.96 [facility] Comment on above: Order Comment: Speci men Type: BLOOD SPECIMENOrdering Facility: [facility] Address: [address] [place] [address] Performed By: #### 2 532-0, ####[facility] [id number] [place] [address] Creatinine and Glomerular filtration rate.predicted panel (S/P/Bld) 44 mL/min/1.73m??? Low >=60 [facility] Comment on above: Order Comment: Speci men Type: BLOOD SPECIMENOrdering Facility: [facility] Address: [address] [place] [address] Result Comment: Dee mated Glomerular Filtration Rate (eGFR) is calculated using the 2020 CKD-EPI creatinine equation. This equation utilizes serum creatinine, sex, and age as parameters. The creatinine assay has traceable calibration to isotope dilution-mass spectrometry. Refer to KDIGO guidelines for clinical interpretation. In patients with unstable renal function, e.g. those with acute kidney injury, the eGFR may not accurately reflect actual GFR. Performed By: #### 2 532-0, ####[facility] LABCLIA [id number] [place] [address] Glucose [Mass/Vol] 105 mg/dL High 74-99 [facility] Comment on above: Order Comment: Mary Kay rausch Type: BLOOD SPECIMENOrdering Facility: [facility] Address: [address] [place] [address] Result Comment: The [place] Diabetes Association (ADA) provides guidance for cutoff [...] Standards of Medical Care in Diabetes 2016, [place] [employer]. Diabetes Care. 2016.39(Suppl 1). Performed By: #### 2 532-0, 52007-6 ####[facility]CLIA [id number] [place] [address] Potassium [Moles/Vol] 4.1 mmol/L Normal 3.7-5.1 [facility] Comment on above: Order Comment: Mary Kay miracle Type: BLOOD SPECIMENOrdering Facility: [facility] Address: [address] [place] [address] Performed By: #### 2 532-0, ####[facility] LABCLIA [id number] [place] [address] Protein [Mass/Vol] 6.8 g/dL Normal 6.3-8.0 [facility] Comment on above: Order Comment: Mary Kay miracle Type: BLOOD SPECIMENOrdering Facility: [facility] Address: [address] [place], [place] [address] Performed By: #### 2 532-0, ####[facility] LABCLIA [id number] [place] [address] Sodium [Moles/Vol] 143 mmol/L Normal 136-144 [facility] Comment on above: Order Comment: Speci men Type: BLOOD SPECIMENOrdering Facility: [facility] Address: [address] [place] [address] Performed By: #### 2 532-0, 95261-1 ####[facility]CLIA [id number] [place] [address] Urea nitrogen [Mass/Vol] 32 mg/dL High 7-21 [facility] Comment on above: Order Comment: Speci men Type: BLOOD SPECIMENOrdering Facility: [facility] Address: [address] [place] [address] Performed By: #### 2 532-0, 53473-7 ####[facility]CLIA [id number] [place] [address] Ferritin SerPl-mCncon 2024 Ferritin [Mass/Vol] 43.7 ng/mL Normal 14.7-205.1 [facility] Comment on above: Order Comment: Speci men Type: BLOOD SPECIMENOrdering Facility: [facility] Address: [address] [place] [address] Performed By: #### 5 0190-8, 2276-4, 3016-3, 4542-7 ####[facility] LABCLIA [id number] [place] [address] [place] Folate SerPl-mCncon 12-08-19 25 Folate [Mass/Vol] 15.1 ng/mL Normal >4.7 [facility] Comment on above: Order Comment: Speci men Type: BLOOD SPECIMENOrdering Facility: [facility] Address: [address] [place], [place] [address] Performed By: #### 2 885-2, 2132-9, 2284-8 ####[facility] LABCLIA [id number] [place] [id number] [place] Haptoglob SerPl-mCncon 12-07 Haptoglobin [Mass/Vol] 157 mg/dL Normal 31-238 [facility] Comment on above: Order Comment: Speci men Type: BLOOD SPECIMENOrdering Facility: [facility] Address: [address] [place] [address] Performed By: #### 5 0190-8, 2276-4, 3016-3, 4542-7 ####[facility] LABCLIA [id number] [address] [place] [address] [place] IMMUNOFIXATION SCREEN, SERUM on 12-07-2024 INTERPRETATION (MPA) Poorly defined hannah on of restricted mobility in the lambda aryan. Pattern is less well defined or fainter than typically seen in monoclonal gammopathy. This could represent either an atypical presentation of polyclonal immunoglobulins or the presence of a low level lambda containing monoclonal gammopathy. If clinically indicated, urine monoclonal protein analysis and serum free light chain measurements are recommended to evaluate further for monoclonal gammopathy. Clinical correlation is necessary. Normal [facility] Comment on above: Order Comment: Specjose [facility] Type: BLOOD SPECIMENOrdering Facility: [facility] Address: [address] [place] [address] Performed By: #### I FESC ####[facility] LABIA [id number] [address] [address] [place] MPA RESULT A poorly defined reg ion of restricted mobility is present that may represent an M protein. Abnormal No M protein is identified. [facility] Comment on above: Order Comment: Speci men Type: BLOOD SPECIMENOrdering Facility: [facility] Address: [address] [place] [address] Performed By: #### I FESC ####[facility] LABCLIA [id number] [address] [place] [address] [facility] [place] STAFF REVIEW (MPA) Reviewed by Dr. Brooke Nevarez MD Normal [facility] Comment on above: Order Comment: Mary Kay men Type: BLOOD SPECIMENOrdering Facility: [facility] Address: [address] [place] [address] Performed By: #### I FESC ####[facility] LABIA [id number] [place] [address] [place] IMMUNOGLOBULINS,IGG,IGA,IGMo n 12-07-2024 IgA [Mass/Vol] 219 mg/dL Normal 70-400 [facility] Comment on above: Order Comment: Speci men Type: BLOOD SPECIMEN Ordering Facility: [facility] Address: [address] [place] [address] Performed By: #### 1 5061-5 #### [facility] CLIA [id number] [address] [place] [address] [place] IgG [Mass/Vol] 641 mg/dL Low 700-1600 [facility] Comment on above: Order Comment: Speci men Type: BLOOD SPECIMEN Ordering Facility: [facility] Address: [address] [place] [address] Performed By: #### 1 5061-5 #### [facility] CLIA [id number] [address] [place] [address] [place] IgM [Mass/Vol] 84 mg/dL Normal 40-230 [facility] Comment on above: Order Comment: Speci men Type: BLOOD SPECIMEN Ordering Facility: [facility] Address: [address] [place] [address] Performed By: #### 1 5061-5 #### [facility] CLIA [id number] [address] [place] [address] [place] Iron and Iron binding capaci ty panelon 12-07-2024 Iron [Mass/Vol] 218 ug/dL High 41-186 [facility] Comment on above: Order Comment: Speci men Type: BLOOD SPECIMENOrdering Facility: [facility] Address: [address] [place] [address] Performed By: #### 5 0190-8, 2276-4, 3016-3, 4542-7 ####[facility] LABCLIA [id number] [place] [address] [place] Iron binding capacity [Mass/Vol] 377 ug/dL Normal 232-386 [facility] Comment on above: Order Comment: Speci men Type: BLOOD SPECIMENOrdering Facility: [facility] Address: [address] [place] [address] Performed By: #### 5 0190-8, 2276-4, 3016-3, 4542-7 ####[facility] LABCLIA [id number] [place] [address] [place] Iron/TIBC [Molar ratio] 57.8 % High 15.0-57.0 [facility] Comment on above: Order Comment: Speci men Type: BLOOD SPECIMENOrdering Facility: [facility] Address: [address] [place] [address] Performed By: #### 5 0190-8, 2276-4, 3016-3, 4542-7 ####[facility] LABCLIA [id number] [place] [address] [place] KAPPA/ELIZALDE,FREE,SERon 2024 Immunoglobulin light chains.kappa.free (S) [Mass/Vol] 25.8 mg/L High 3.3-19.4 [facility] Comment on above: Order Comment: Speci men Type: BLOOD SPECIMEN Ordering Facility: [facility] Address: [address] [place] [address] Result Comment: Rare ly, increased serum free light chains levels may not be detected or accurately quantified due to prozone phenomenon or in high viscosity samples using this immunoturbidimetric assay. Correlation with other laboratory results and clinical findings is recommended. The Panacea Free Light Chain was performed using the Binding Site Optilite immunoturbidimetric method. Result obtained with different assay methods or kits cannot be used interchangeably. Performed By: #### K LFRS #### [facility] CLIA [id number] [address] [place] [address] [place] Immunoglobulin light chains.kappa/Immunogl obulin light chains.lambda (S) [Mass ratio] 1.44 Normal 0.26-1.65 [facility] Comment on above: Order Comment: Speci men Type: BLOOD SPECIMEN Ordering Facility: [facility] Address: [address] [place] [address] Performed By: #### K LFRS #### [facility] CLIA [id number] [address] [place] [address] [place] Immunoglobulin light chains.lambda.free [Mass/Vol] 17.9 mg/L Normal 5.7-26.3 [facility] Comment on above: Order Comment: Speci men Type: BLOOD SPECIMEN Ordering Facility: [facility] Address: [address] [place] [address] Result Comment: Rare ly, increased serum free light chains levels may not be detected or accurately quantified due to prozone phenomenon or in high viscosity samples using this immunoturbidimetric assay. Correlation with other laboratory results and clinical findings is recommended. The Lambda Free Light Chain was performed using the Binding Site Optilite immunoturbidimetric method. Result obtained with different assay methods or kits cannot be used interchangeably. Performed By: #### K LFRS #### [facility] CLIA [id number] [address] [place] [address] [place] LDH SerPl-cCncon 12-07-2024 LDH [Catalytic activity/Vol] 302 U/L High 135-214 [facility] Comment on above: Order Comment: Speci men Type: BLOOD SPECIMENOrdering Facility: [facility] Address: [address] [place] [address] Performed By: #### 2 532-0, 43736-1 ####[facility] LABCLIA [id number] [place] [id number] PROTEIN ELECTROPHORESIS SERU M (P)on 12-07-2024 Albumin [Mass/Vol] 3.99 g/dL Normal 3.43-5.41 [facility] Comment on above: Order Comment: Speci men Type: BLOOD SPECIMEN Ordering Facility: [facility] Address: [address] [place] [address] Performed By: #### 1 5061-5 #### [facility] CLIA [id number] [address] [place] [address] [place] Alpha 1 globulin Elph [Mass/Vol] 0.35 g/dL Normal 0.18-0.43 [facility] Comment on above: Order Comment: Speci men Type: BLOOD SPECIMEN Ordering Facility: [facility] Address: [address] [place] [address] Performed By: #### 1 5061-5 #### [facility] CLIA [id number] [address] [place] [address] [place] Alpha 2 globulin Elph [Mass/Vol] 0.81 g/dL Normal 0.42-0.98 [facility] Comment on above: Order Comment: Speci men Type: BLOOD SPECIMEN Ordering Facility: [facility] Address: [address] [place] [address] Performed By: #### 1 5061-5 #### [facility] CLIA [id number] [address] [place] [address] [place] Beta globulin Elph [Mass/Vol] 0.83 g/dL Normal 0.61-1.17 [facility] Comment on above: Order Comment: Speci men Type: BLOOD SPECIMEN Ordering Facility: [facility] Address: [address] [place] [address] Performed By: #### 1 5061-5 #### [facility] CLIA [id number] [address] [place] [address] [place] Gamma globulin Elph [Mass/Vol] 0.52 g/dL Low 0.53-1.51 [facility] Comment on above: Order Comment: Speci men Type: BLOOD SPECIMEN Ordering Facility: [facility] Address: [address] [place] [address] Performed By: #### 1 5061-5 #### [facility] CLIA [id number] [address] [place] [address] [place] INTERPRETATION COMMENT FOR PROTEIN ELECTROPHORESIS Hypogammaglobulinemia is present, which can be seen in the setting of monoclonal gammopathy. If clinically indicated, monoclonal protein analysis and serum free light chain analysis are suggested to evaluate further for monoclonal gammopathy. Normal [facility] Comment on above: Order Comment: Speci men Type: BLOOD SPECIMEN Ordering Facility: [facility] Address: [address] [place] [address] Performed By: #### 1 5061-5 #### [facility] CLIA [id number] [address] [place] [address] [place] M-PROTEIN LOCATION Normal [facility] Comment on above: Order Comment: Speci men Type: BLOOD SPECIMEN Ordering Facility: [facility] Address: [address] [place] [address] Result Comment: Not Applicable. Performed By: #### 1 5061-5 #### [facility] CLIA [id number] [address] [place] [address] [place] Protein Fractions [Interp] No definitive M protein is identified on protein electrophoresis. Normal No definitive M protein is identified on protein electrophor esis. [facility] Comment on above: Order Comment: Speci men Type: BLOOD SPECIMEN Ordering Facility: [facility] Address: [address] [place] [address] Performed By: #### 1 5061-5 #### [facility] CLIA [id number] [address] [place] [address] [place] Protein.monoclonal Elph [Mass/Vol] 0.00 g/dL Normal <=0.00 [facility] Comment on above: Order Comment: Speci men Type: BLOOD SPECIMEN Ordering Facility: [facility] Address: [address] [place] [address] Performed By: #### 1 5061-5 #### [facility] CLIA [id number] [address] [place] [address] [place] SPE STAFF REVIEW Reviewed by Dr. Brooke Nevarez MD Normal [facility] Comment on above: Order Comment: Speci men Type: BLOOD SPECIMEN Ordering Facility: [facility] Address: [address] [place] [address] Performed By: #### 1 5061-5 #### [facility] CLIA [id number] [address] [place] [address] [place] Prot SerPl-mCncon 12-07-2024 Protein [Mass/Vol] 6.5 g/dL Normal 6.3-8.0 [facility] Comment on above: Order Comment: Speci men Type: BLOOD SPECIMENOrdering Facility: [facility] Address: [address] [place] [address] Performed By: #### 2 885-2, 2132-03, 2284-01 ####[facility] LABCLIA [id number] [place] [address] [place] TSH SerPl-aCncon 12-07-2024 TSH Qn 1.190 m[IU]/L Normal 0.270-4.200 [facility] Comment on above: Order Comment: Speci men Type: BLOOD SPECIMENOrdering Facility: [facility] Address: [address] [place] [address] Performed By: #### 5 0190-8, 2276-4, 3016-3, 4542-7 ####[facility] LABCLIA [id number] [place] [id number] [place] Vit B12 SerPl-mCncon 025 Cobalamin (Vitamin B12) [Mass/Vol] 607 pg/mL Normal 232-1245 [facility] Comment on above: Order Comment: Speci men Type: BLOOD SPECIMENOrdering Facility: [facility] Address: [address] [place] [address] Performed By: #### 2 885-2, 2132-03, 2284-01 ####[facility] LABCLIA [id number] [place] [id number] [place] Orders Onlyon 12-03-2024 Orders Only [id number] Kaushal Bradford ra Rios 1940 F Date Provider Department Center 12/03/2024 Kandace-MALINA PALACIOS CARD [facility] Family History Problem Relation Age of Onset Other Mother Stroke Father Other Father Other Father Breast cancer Sister Other Brother 50 Other Brother Family Status - Relation Status Age at Mother Father Sister Alive Brother Alive Normal [facility] Albumin/Creat Ratio, Urineon 11-30-2024 Albumin,conc.[place] U <12 Normal 0-20 [facility] Comment on above: Performed By: #### U RNMAB #### [employer] [address] [place] [address] Geothermal Plant Manager: Mitzi Pack MD Albumin/Creat Ratio Can not be calculated Normal 0.0-2 5.0 [facility] Comment on above: Performed By: #### U RNMAB #### [employer] [address] [place], [place] [id number] Geothermal Plant Manager: Mitzi Pack MD Creatinine Conc. 25.9 mg/dL Low 28.0-217.0 [facility] Comment on above: Result Comment: Refe rence range defined for 1st morning urine Performed By: #### U RNMAB #### [facility] [employer] [address] [place] [address] Geothermal Plant Manager: Mitzi Pack MD Albumin/Creatinine Ratio, Ur ineon 11-30-2024 Albumin DL <= 20 mg/L (U) [Mass/Vol] mg/L 0 - 20 mg/L [facility] Albumin/Creatinine DL <= 20 mg/L (U) [Ratio] Can not be calculated [facility] Creatinine (U) [Mass/Vol] 25.9 mg/dL Low 28.0 - 217.0 mg/dL [facility] Comment on above: Reference range defi howard for 1st morning urine Interpretation and review of laboratory results Abnormal [facility] CNPStephanie 11-30-2024 CNPN Telephone (PATRICIA) ----- JEMIMA BRADFORD ([id number]) 1940 F Date Time Provider Department 11/30/24 GIA CLAYTON During your visit today, we recorded the following information about you: Gia Clayton, REBECCA 11/30/2024 1:32 PM Signed Jasmyne Casillas NP calling for pt to be seen for low Hgb: 8.1 today. Pt had recent scopes (EGD/Colonoscopy resulted Gaviria's esophagus/multiple polyps upper and lower without active bleeding ). Pt takes Nexium and Pepcid added today. Occult blood stools negative. Pt takes oral iron supplements daily. Recent iron labs normal. Pt has CKD and sees nephrology. Recent renal function unchanged from previous. 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 Records rec'd; Toshia scanning for review BRM: Please advise REBECCA Messina Natalie, REBECCA 11/30/2024 3:49 PM Signed PSS: Please call pt to schedule with BRM/MARLYS to discuss. REBECCA Messina Trisha 12/01/2024 10:21 AM Signed Patient is scheduled with Katie BLOOM on 12/07/24 at 2:00 PM [facility] PSS Gia Clayton RN 12/01/2024 10:24 AM Signed MM: Katie Vizcaino PA-C 12/01/2024 11:07 AM Signed Addended by: KATIE COOK on: 12/01/2024 11:07 AM Modules accepted: Orders Allergies As of Date: 11/30/2024 Noted Allergy Reaction BIAXIN (CLARITHROMYCIN) 06/16/2013 16 - Unknown CONTRAST DYE 06/16/2013 12 - Shortness of Breath NICKEL 07/05/2020 16 - Unknown NITROUS OXIDE 12/21/2014 11 - Vomiting SYNVISC (HYLAN G-F 20) 06/16/2013 7 - Swelling THORAZINE (CHLORPROMAZINE) 06/16/2013 2 - Rash Date Reviewed: 09/21/2024 Reviewed by: Maylin Black MA - Fully Assessed Reason for Visit: Hgb low [Other] Primary Visit Diagnosis:Anemia, unspecified type [D64.9] Order(s):COMPREHENSIVE METABOLIC PANEL [SQCMP] Order #: [id number] FUTURE IRON AND TIBC [SQIRON] Order #: [id number] FUTURE COMPLETE BLOOD COUNT AND DIFFERENTIAL [SQCBCDIF] Order #: [id number] FUTURE FERRITIN [SQFERR] Order #: [id number] FUTURE FOLATE, SERUM [SQSERFOL] Order #: [id number] FUTURE MONOCLONAL PROTEIN, SERUM (BLOOD) [SQSERMPA] Order #: [id number] FUTURE PROTEIN ELECTROPHORESIS SERUM W/INTERP [SQSEPG] Order #: [id number] FUTURE VITAMIN B12 [SQB12] Order #: [id number] FUTURE THYROID STIMULATING HORMONE [SQTSH] Order #: [id number] FUTURE HAPTOGLOBIN [SQHAPTO] Order #: [id number] FUTURE LACTATE DEHYDROGENASE [SQLD6] Order #: [id number] FUTURE Prescriptions as of 12/01/2024 - oxyCODONE IR (ROXICODONE) 5 mg immediate release tablet TAKE ONE TABLET BY MOUTH EVERY 6 HOURS NEEDED FOR MORE SEVERE PAIN - bumetanide (BUMEX) 1 mg tablet Take 1 mg by mouth two times a day. - montelukast (SINGULAIR) 10 mg tablet Take 10 mg by mouth once daily. - metoprolol tartrate, short acting, (LOPRESSOR) 25 mg tablet Take 1/2 tablet by mouth twice daily. - levothyroxine (SYNTHROID) 50 mcg tablet levothyroxine 50 mcg tablet TAKE 1 TABLET BY MOUTH DAILY FOR HYPOTHYROIDISM - apixaban (ELIQUIS) 5 mg tab(s) Eliquis 5 mg tablet Take 1 tablet twice a day by oral route for 90 days. - calcium carbonate (CALTRATE) 600 mg calcium (1,500 mg) tab 600 mg. - melatonin 10 mg tab 10 mg. - rosuvastatin (CRESTOR) 40 mg tablet Take 40 mg by mouth once daily. - spironolactone (ALDACTONE) 25 mg tablet Take 25 mg by mouth once daily. - esomeprazole (NEXIUM) 40 mg capsule Take 40 mg by mouth as directed. Twice per week - nitroglycerin sublingual (NITROQUICK) 0.4 mg SL tablet Dissolve 1 tablet under the tongue every 5 minutes as needed. - COQ10, UBIQUINOL, ORAL Take 1 tablet by mouth once daily. - Chromium Picolinate 500 mcg cap Take 1 tablet by mouth once daily. - MAGNESIUM ORAL Take 1 tablet by mouth once daily. 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,*07/27/2015 Coronary artery disease involving elem ferguson*07/28/2015 Ductal carcinoma in situ (DCIS) of right breast*04/07/2021 Malignant neoplasm of upper lobe of left lung (*05/16/2022 Cerebrovascular accident (CVA) (HCC) [I63.9] 05/30/2022 Former smoker [Z87.891] 05/30/2022 JENNIFER (obstructive sleep apnea) [G47.33] 05/30/2022 Chronic congestive heart failure (HCC) [I50.9] 05/30/2022 Chronic kidney disease [N18.9] 05/30/2022 Hx of aortic valve repair [Z98.890, Z86.79] 05/30/2022 Mass of upper lobe of left lung [R91.8] 06/13/2022 06/22/2022 Obesity, Class I, BMI 30-34.9 [E66.811] 06/24/2022 Encounter Sta (more content not included)... Normal [facility] Comp Metabolic Profon 2024 Albumin [Mass/Vol] 4.5 g/dL Normal 3.5-5.2 [facility] Comment on above: Performed By: #### R ETCT #### [place] [address] [place] [address] Geothermal Plant Manager: Mitzi Pack MD #### CP #### [facility] [address] [place] [address] Geothermal Plant Manager: Eleazar Olivia MD Albumin/Glob Ratio 1.7 Normal 1.0-2.5 [facility] Comment on above: Performed By: #### R ETCT #### [address] [address] Geothermal Plant Manager: Mitzi Pack MD #### CP #### [facility] [address] [place] [address] Geothermal Plant Manager: Eleazar Olivia MD Alkaline Phos 102 U/L Normal 35-104 [facility] Comment on above: Performed By: #### R ETCT #### [address] [address] Geothermal Plant Manager: Mitzi Pack MD #### CP #### [facility] [address] [place] [address] Geothermal Plant Manager: Eleazar Olivia MD ALT [Catalytic activity/Vol] 12 U/L Normal 5-33 [facility] Comment on above: Performed By: #### R ETCT #### [address] [address] Geothermal Plant Manager: Mitzi Pack MD #### CP #### [facility] [address] [place] [address] Geothermal Plant Manager: Eleazar Olivia MD Anion gap [Moles/Vol] 12 mmol/L Normal 9-[address] [facility] Comment on above: Performed By: #### R ETCT #### [address] [address] [address] [employer] Manager: Mitzi Pack MD #### CP #### [facility] [address] [place], [place] [id number] [employer]othermal Plant Manager: Eleazar Olivia MD AST [Catalytic activity/Vol] 26 U/L Normal <32 [facility] Comment on above: Performed By: #### R ETCT #### [address] [place] [address] [employer]othermal Plant Manager: Mitzi Pack MD #### CP #### [facility] [address] [place] [address] [employer]othermal Plant Manager: Eleazar Olivia MD Bilirubin [Mass/Vol] 0.4 mg/dL Normal 0.3-1.2 [facility] Comment on above: Performed By: #### R ETCT #### [address] [id number] [employer] Plant Manager: Mitzi Pack MD #### CP #### [facility] [address] [place] [address] [employer]othermal Plant Manager: Eleazar Olivia MD Calcium [Mass/Vol] 9.7 mg/dL Normal 8.6-10.4 [facility] Comment on above: Performed By: #### R ETCT #### [address] [address] [employer]othermal Plant Manager: Mitzi Pack MD #### CP #### [facility] [address] [place] [address] Geothermal Plant Manager: Eleazar Olivia MD Chloride [Moles/Vol] 106 mmol/L Normal 98-107 [facility] Comment on above: Performed By: #### R ETCT #### [address] [address] [employer]othermal Plant Manager: Mitzi Pack MD #### CP #### [facility] [address] [place], [place] [phone] Geothermal Plant Manager: Eleazar Olivia MD CO2 [Moles/Vol] 26 mmol/L Normal 20-31 [facility] Comment on above: Performed By: #### R ETCT #### [facility] [address] [place] [address] [employer]othermal Plant Manager: Mitzi Pack MD #### CP #### [facility] [address] [place], [place] [phone] [employer]othermal Plant Manager: Eleazar Olivia MD Creatinine [Mass/Vol] 1.3 mg/dL High 0.5-0.[address] [facility] Comment on above: Performed By: #### R ETCT #### [facility] [address] [place] [address] Geothermal Plant Manager: Mitzi Pack MD #### CP #### [facility] [address] [place], [place] [phone] [employer] Plant Manager: Eleazar Olivia MD GFR/1.73 sq M.predicted among non-blacks MDRD (S/P/Bld) [Vol rate/Area] 41 mL/min/{1.73_m2} Low >60 [facility] Comment on above: Result Comment: These results are not intended for use in patients <18 years of age. eGFR results are calculated without a race factor using the 2020 CKD-EPI equation. Careful clinical correlation is recommended, particularly when comparing to results calculated using previous equations. The CKD-EPI equation is less accurate in patients with extremes of muscle mass, extra-renal metabolism of creatine, excessive creatine ingestion, or following therapy that affects renal tubular secretion. Performed By: #### R ETCT #### [facility] [address] [place] [address] Geothermal Plant Manager: Mitzi Pack MD #### CP #### [facility] [address] [place], [place] [phone] Geothermal Plant Manager: Eleazar Olivia MD Glucose [Mass/Vol] 114 mg/dL High 70-99 [facility] Comment on above: Performed By: #### R ETCT #### [address] [address] Geothermal Plant Manager: Mitzi Pack MD #### CP #### [facility] [address] [place], [place] [phone] Geothermal Plant Manager: Eleazar Olivia MD Potassium [Moles/Vol] 4.6 mmol/L Normal 3.7-5.[address] [facility] Comment on above: Performed By: #### R ETCT #### [address] [address] Geothermal Plant Manager: Mitzi Pack MD #### CP #### [facility] [address] [place], [place] [id number] Geothermal Plant Manager: Eleazar Olivia MD Protein [Mass/Vol] 7.1 g/dL Normal 6.4-8.3 [facility] Comment on above: Performed By: #### R ETCT #### [address] [address] Geothermal Plant Manager: Mitzi Pack MD #### CP #### [facility] [address] [place] [address] Geothermal Plant Manager: Eleazar Olivia MD Sodium [Moles/Vol] 144 mmol/L Normal 135-144 [facility] Comment on above: Performed By: #### R ETCT #### [address] [address] Geothermal Plant Manager: Mitzi Pack MD #### CP #### [facility] [address] [place], [place] 0626[address] Geothermal Plant Manager: Eleazar Olivia MD Urea nitrogen [Mass/Vol] 36 mg/dL High 8-23 [facility] Comment on above: Performed By: #### R ETCT #### [address] [address] [employer]othermal Plant Manager: Mitzi Pack MD #### CP #### [facility] [address] [place] [address] [employer]othermal Plant Manager: Eleazar Olivia MD [facility] Metabolic [facility] 11-30-2024 Albumin [Mass/Vol] 4.5 g/dL 3.5 - 5.2 g/dL [facility] Albumin/Globulin [Mass ratio] 1.7 {ratio} 1.0 - 2.5 [facility] ALP [Catalytic activity/Vol] 102 U/L 35 - 104 U/L [facility] ALT [Catalytic activity/Vol] 12 U/L 5 - 33 U/L [facility] Anion gap [Moles/Vol] 12 mmol/L 9 - 17 mmol/L [facility] AST [Catalytic activity/Vol] 26 U/L NINF - 32 U/L [facility] Bilirubin [Mass/Vol] 0.4 mg/dL 0.3 - 1 .2 mg/dL [facility] Calcium [Mass/Vol] 9.7 mg/dL 8.6 - 10. 4 mg/dL [facility] Chloride [Moles/Vol] 106 mmol/L 98 - 10 7 mmol/L [facility] CO2 [Moles/Vol] 26 mmol/L 20 - 31 mmol/L [facility] Creatinine [Mass/Vol] 1.3 mg/dL High 0.5 - 0.9 mg/dL [facility] Est, Glom Filt Rate 41 Low - PINF [facility] Comment on above: These results are not intended for use in patients <18 years of age. eGFR results are calculated without a race factor using the 2020 CKD-EPI equation. Careful clinical correlation is recommended, particularly when comparing to results calculated using previous equations. The CKD-EPI equation is less accurate in patients with extremes of muscle mass, extra-renal metabolism of creatine, excessive creatine ingestion, or following therapy that affects renal tubular secretion. Glucose [Mass/Vol] 114 mg/dL High 70 - 99 mg/dL [facility] Interpretation and review of laboratory results Abnormal [facility] Potassium [Moles/Vol] 4.6 mmol/L 3.7 - 5.3 mmol/L [facility] Protein [Mass/Vol] 7.1 g/dL 6.4 - 8.3 g/dL [facility] Sodium [Moles/Vol] 144 mmol/L 135 - 144 mmol/L [facility] Urea nitrogen [Mass/Vol] 36 mg/dL High 8 - 23 mg/dL [facility] Hemoglobin and Hematocriton 11-30-2024 Hematocrit (Bld) [Volume fraction] 26.5 % Low 36.0 - 46.0 % [facility] Hemoglobin (Bld) [Mass/Vol] 8.1 g/dL Low 12.0 - 16.0 g/dL [facility] Interpretation and review of laboratory results Abnormal [facility] Hgb/Hcton 11-30-2024 Hematocrit (Bld) [Volume fraction] 26.5 % Low 36.0-46.0 [facility] Comment on above: Performed By: #### U RNMAB #### [address] [address] Geothermal Plant Manager: Mitzi Pack MD Hemoglobin (Bld) [Mass/Vol] 8.1 g/dL Low 12.0-16.0 [facility] Comment on above: Performed By: #### U RNMAB #### [address] [address] Geothermal Plant Manager: Mitzi Pack MD Retic Counton 11-30-2024 Absolute Retic 0.092 M/uL High 0.030-0.080 [facility] Comment on above: Performed By: #### R ETCT #### [address] [id number] [employer] Plant Manager: Mitzi Pack MD #### CP #### [facility] [address] [place] [address] Geothermal Plant Manager: Eleazar Olivia MD IRF 24.4 % High 2.7-18.3 [facility] Comment on above: Performed By: #### R ETCT #### [facility] [address] [place] [address] Geothermal Plant Manager: Mitzi Pack MD #### CP #### [facility] [address] [place], [place] [phone] Geothermal Plant Manager: Eleazar Olivia MD Retic Count 2.8 % High 0.5-1.9 [facility] Comment on above: Performed By: #### R ETCT #### [facility] [address] [place] [address] Geothermal Plant Manager: Mitzi Pack MD #### CP #### [facility] [address] [place], [place] [phone] Geothermal Plant Manager: Eleazar Olivia MD Retic Hemoglobin 23.5 pg Low 28.2-35.7 [facility] Comment on above: Performed By: #### R ETCT #### [facility] [address] [place] [address] Geothermal Plant Manager: Mitzi Pack MD #### CP #### [facility] [address] [place], [place] [phone] Geothermal Plant Manager: Eleazar Olivia MD Reticulocyteson 11-30-2024 Immature reticulocytes/Total reticulocytes (Bld) 24.4 % High 2.7 - 18.3 % [facility] Interpretation and review of laboratory results Abnormal [facility] Retic Hemoglobin 23.5 pg Low 28.2 - 35.7 pg [facility] Reticulocytes (Bld) [#/Vol] 0.092 10*3/uL High [facility] Reticulocytes/100 RBC (Bld) 2.8 % High 0.5 - 1.9 % [facility] 36on 11-26-2024 36 Regarding lab result s from 11/26/2024: MD Karis Bueno MA Let's please make sure she is back on the Bumex only once a day. Please repeat the BMP in 2 weeks. Thanks Spoke with patient and confirmed she is only taking Bumex once daily. She will have repeat BMP in 2 weeks. Order faxed to [facility]. Patient verbalized understanding. Normal [facility] Orders Onlyon 11-26-2024 Orders Only [id number] Kaushal Bradford ra Rios 1940 F Date Provider Department Center 11/26/2024 [id number], HISTORICAL CARD [facility] Family History Problem Relation Age of Onset Other Mother Stroke Father Other Father Other Father Breast cancer Sister Other Brother 50 Other Brother Family Status - Relation Status Age at Mother Father Sister Alive Brother Alive Normal [facility] B12/Folate Panelon Cobalamin (Vitamin B12) [Mass/Vol] 697 pg/mL Normal 232-1245 [facility] Comment on above: Performed By: #### F GUADALUPE, FEBC, B12FOL #### [facility] [address] [place] [address] [id number] [employer] Manager: Mitzi Pack MD #### CDP #### [facility] [address] [place] [address] Geothermal Plant Manager: Eleazar Olivia MD Folic Acid 11.2 ng/mL Normal 4.8-24.2 [facility] Comment on above: Performed By: #### F GUADALUPE, FEBC, B12FOL #### [address] [id number] Geothermal Plant Manager: Mitzi Pack MD #### CDP #### [facility] [address] [place], [place] [phone] Geothermal Plant Manager: Eleazar Olivia MD CBC with Diffon 11-20-2024 Abs. Basophil 0.05 k/uL Normal 0.00-0.20 [facility] Comment on above: Performed By: #### F GUADALUPE, FEBC, B12FOL #### [address] [id number] Geothermal Plant Manager: Mitzi Pack MD #### CDP #### [facility] [address] [place] [address] Geothermal Plant Manager: Eleazar Olivia MD Abs.Imm.Granulocyte 0.01 k/uL Normal 0.00-0.30 [facility] Comment on above: Performed By: #### F GUADALUPE, FEBC, B12FOL #### [address] [phone] Ge[employer] Plant Manager: Mitzi Pack MD #### CDP #### [facility] [address] [place] [address] Geothermal Plant Manager: Eleazar Olivia MD Abs.Neutrophil (Seg) 3.84 k/uL Normal 2.5-7.0 [facility] Comment on above: Performed By: #### F GUADALUPE, FEBC, B12FOL #### [address] [phone] Geothermal Plant Manager: Mitzi Pack MD #### CDP #### [facility] [address] [place] [address] ( Geothermal Plant Manager: Eleazar Olivia MD Basophils/100 WBC (Bld) 1 % Normal 0-2 [facility] Comment on above: Performed By: #### F GUADALUPE, FEBC, B12FOL #### [place] [id number] Geothermal Plant Manager: Mitzi Pack MD #### CDP #### [facility] [address] [place] [phone] Geothermal Plant Manager: Eleazar Olivia MD Eosinophils (Bld) [#/Vol] 0.24 10*3/uL Normal 0.00-0.40 [facility] Comment on above: Performed By: #### F GUADALUPE, FEBC, B12FOL #### [address] [phone] Ge[employer] Plant Manager: Mitzi Pack MD #### CDP #### [facility] [address] [place] [address] Geothermal Plant Manager: Eleazar Olivia MD Eosinophils/100 WBC (Bld) 4 % Normal 0-5 [facility] Comment on above: Performed By: #### F GUADALUPE, FEBC, B12FOL #### [address] [phone] Ge[employer] Plant Manager: Mitzi Pack MD #### CDP #### [facility] [address] [place] [address] Geothermal Plant Manager: Eleazar Olivia MD Erythrocyte distribution width (RBC) [Ratio] 15.6 % High 12.1-15.2 [facility] Comment on above: Performed By: #### F GUADALUPE, FEBC, B12FOL #### [address] [id number] Ge[employer] Plant Manager: Mitzi Pack MD #### CDP #### [facility] [address] [place] [address] Geothermal Plant Manager: Eleazar Olivia MD Hematocrit (Bld) [Volume fraction] 27.7 % Low 36.0-46.0 [facility] Comment on above: Performed By: #### F GUADALUPE, FEBC, B12FOL #### [address] [id number] Ge[employer] Plant Manager: Mitzi Pack MD #### CDP #### [facility] [address] [place] [address] Geothermal Plant Manager: Eleazar Olivia MD Hemoglobin (Bld) [Mass/Vol] 8.5 g/dL Low 12.0-16.0 [facility] Comment on above: Performed By: #### F GUADALUPE, FEBC, B12FOL #### [address] [id number] [employer] Plant Manager: Mitzi Pack MD #### CDP #### [facility] [address] [place] [address] Geothermal Plant Manager: Eleazar Olivia MD Immature granulocytes/100 WBC (Bld) 0 % Normal 0-5 [facility] Comment on above: Performed By: #### F GUADALUPE, FEBC, B12FOL #### [address] [phone] Ge[employer] Plant Manager: Mitzi Pack MD #### CDP #### [facility] [address] [place] [address] Geothermal Plant Manager: Eleazar Olivia MD Lymphocytes (Bld) [#/Vol] 1.76 10*3/uL Normal 1.00-4.80 [facility] Comment on above: Performed By: #### F GUADALUPE, FEBC, B12FOL #### [address] [id number] Geothermal Plant Manager: Mitzi Pack MD #### CDP #### [facility] [address] [place] [phone] Geothermal Plant Manager: Eleazar Olivia MD Lymphocytes/100 WBC (Bld) 27 % Normal 15-40 [facility] Comment on above: Performed By: #### F GUADALUPE, FEBC, B12FOL #### [address] [id number] Geothermal Plant Manager: Mitzi Pack MD #### CDP #### [facility] [address] [place], [place] [phone] Geothermal Plant Manager: Eleazar Olivai MD MCH (RBC) [Entitic mass] 26.2 pg Normal 26.0-34.0 [facility] Comment on above: Performed By: #### F GUADALUPE, FEBC, B12FOL #### [address] [phone] Ge[employer] Plant Manager: Mitzi Pack MD #### CDP #### [facility] [address] [place] [phone] Geothermal Plant Manager: Eleazar Olivia MD MCHC (RBC) [Mass/Vol] 30.7 g/dL Low 31.0-37.[address] [facility] Comment on above: Performed By: #### F GUADALUPE, FEBC, B12FOL #### [address] [id number] Geothermal Plant Manager: Mitzi Pack MD #### CDP #### [facility] [address] [place] [phone] Geothermal Plant Manager: Eleazar Olivia MD MCV (RBC) [Entitic vol] 85.2 fL Normal 80.0-100.0 [facility] Comment on above: Performed By: #### F GUADALUPE, FEBC, B12FOL #### [address] [phone] Ge[employer] Plant Manager: Mitzi Pack MD #### CDP #### [facility] [address] [place] [phone] Geothermal Plant Manager: Eleazar Olivia MD Monocytes (Bld) [#/Vol] 0.62 10*3/uL Normal 0.00-1.00 [facility] Comment on above: Performed By: #### F GUADALUPE, FEBC, B12FOL #### [address] [phone] Geothermal Plant Manager: Mitzi Pack MD #### CDP #### [facility] [address] [place] [phone] Geothermal Plant Manager: Eleazar Olivia MD Monocytes/100 WBC (Bld) 10 % High 4-8 [facility] Comment on above: Performed By: #### F GUADALUPE, FEBC, B12FOL #### [address] [phone] Geothermal Plant Manager: Mitzi Pack MD #### CDP #### [facility] [address] [place] [address] Geothermal Plant Manager: Eleazar Olivia MD Neutrophil (Seg) 58 % Normal 47-75 [facility] Comment on above: Performed By: #### F GUADALUPE, FEBC, B12FOL #### [address] [phone] Geothermal Plant Manager: Mitzi Pack MD #### CDP #### [facility] [address] [place], [place] [phone] Geothermal Plant Manager: Eleazar Olivia MD Platelet mean volume (Bld) [Entitic vol] 9.5 fL Normal 6.0-12.0 [facility] Comment on above: Performed By: #### F GUADALUPE, FEBC, B12FOL #### [address] [id number] Geothermal Plant Manager: Mitzi Pack MD #### CDP #### [facility] [address] [place], [place] 2052190 Geothermal Plant Manager: Eleazar Olivia MD Platelets (Bld) [#/Vol] 229 10*3/uL Normal 140-450 [facility] Comment on above: Performed By: #### F GUADALUPE, FEBC, B12FOL #### [address] [phone] Geothermal Plant Manager: Mitzi Pack MD #### CDP #### [facility] [address] [place], [place] [phone] Geothermal Plant Manager: Eleazar Olivia MD RBC (Bld) [#/Vol] 3.25 10*6/uL Low 4.00-5.20 [facility] Comment on above: Performed By: #### F GUADALUPE, FEBC, B12FOL #### [address] [place] [address] Geothermal Plant Manager: Mitzi Pack MD #### CDP #### [facility] [address] [place], [place] [phone] Geothermal Plant Manager: Eleazar Olivia MD WBC (Bld) [#/Vol] 6.5 10*3/uL Normal 3.5-11.0 [facility] Comment on above: Performed By: #### F GUADALUPE, FEBC, B12FOL #### [facility] [address] [place] [address] Geothermal Plant Manager: Mitzi Pack MD #### CDP #### [facility] [address] [place], [place] [phone] Geothermal Plant Manager: Eleazar Olivia MD Ferritinon 11-20-2024 Ferritin [Mass/Vol] 46 ng/mL Normal [facility] Comment on above: Result Comment: No r eference range established for this age/gender. Performed By: #### F GUADALUPE, FEBC, B12FOL #### [address] [place] [address] Geothermal Plant Manager: Mitzi Pack MD #### CDP #### [facility] [address] [place], [place] [phone] Geothermal Plant Manager: Eleazar Olivia MD Iron Binding Cap.on 11-21-19 25 % Fe Saturation 49 % Normal 20-55 [facility] Comment on above: Performed By: #### F GUADALUPE, FEBC, B12FOL #### [facility] [address] [place], [place] [phone] Geothermal Plant Manager: Mitzi Pack MD #### CDP #### [facility] [address] [place], [place] [phone] Geothermal Plant Manager: Eleazar Olivia MD Iron [Mass/Vol] 179 ug/dL High 37-145 [facility] Comment on above: Performed By: #### F GUADALUPE, FEBC, B12FOL #### [facility] [address] [place] [address] Geothermal Plant Manager: Mitzi Pack MD #### CDP #### [facility] [address] [place] [address] Geothermal Plant Manager: Eleazar Olivia MD Total Fe Binding Cap 367 ug/dL Normal 250-450 [facility] Comment on above: Performed By: #### F GUADALUPE, FEBC, B12FOL #### [facility] [address] [place] [address] Geothermal Plant Manager: Mitzi Pack MD #### CDP #### [facility] [address] [place] [address] Geothermal Plant Manager: Eleazar Olivia MD Unbound Fe Bind Cap 188 ug/dL Normal 112-347 [facility] Comment on above: Performed By: #### F GUADALUPE, FEBC, B12FOL #### [address] [address] Geothermal Plant Manager: Mitzi Pack MD #### CDP #### [facility] [address] [place] [address] Geothermal Plant Manager: Eleazar Olivia MD Occult Blood, Fecalon 2024 Occult Blood 1 Negative Normal [facility] Comment on above: Performed By: #### U RNMAB #### [address] [address] Geothermal Plant Manager: Mitzi Pack MD Occult Blood 2 NOT DONE Abnormal NEG [facility] Comment on above: Performed By: #### U RNMAB #### [facility] [address] [place] [address] Geothermal Plant Manager: Mitzi Pack MD Occult Blood 3 NOT DONE Abnormal NEG [facility] Comment on above: Performed By: #### U RNMAB #### [place] [place] [address] Geothermal Plant Manager: Mitzi Pack MD Specimen 1 Date 11/20/24 [facility] Comment on above: Performed By: #### U RNMAB #### [facility] [address] [place] [address] Geothermal Plant Manager: Mitzi Pack MD Specimen 1 Time 1615 Normal [facility] Comment on above: Performed By: #### U RNMAB #### [facility] [address] [place] [address] Geothermal Plant Manager: Mitzi Pack MD Office Visiton 11-19-2024 Follow-up visit [id number] Kaushal Bradford ra 1940 Date Provider Department Center 11/19/2024 KENDY RON MIKY [facility] Family History Problem Relation Age of Onset Other Mother Stroke Father Other Father Other Father Breast cancer Sister Other Brother 50 Other Brother Family Status - Relation Status Age at Mother Father Sister Alive Brother Alive Level of Service:50575 HI OFFICE/OUTPATIENT ESTABLISHED MOD MDM 30 MIN Normal [facility] Orders Onlyon 11-19-2024 Orders Only [id number] Kaushal Bradford ra 1940 Provider Department Center 11/19/2024 KENDY RON MIKY [facility] Family History Problem Relation Age of Onset Other Mother Stroke Father Other Father Other Father Breast cancer Sister Other Brother 50 Other Brother Family Status - Relation Status Age at Mother Father Sister Alive Brother Alive Normal [facility] No Panel Informationon 11-05 [facility] Pathology Request for Lab Co rpon 10-26-2024 Pathology Request for Lab Crista Normal [facility] Comment on above: Order Comment: GI SP ECIMEN Result Comment: See report. Scanned copy available in EMR. PERFORMED BY: [address] [place] [address] PATHOLOGIST TISSUE COORDINATOR COLIN MORGAN M.D. Performed By: #### C BC #### [facility] [address] [place] [id number] [facility] #### FRUC #### [facility] , X-ray reportOrdered By: Butch Chowdhury on 10-21-2024 Study report [facility] [address] [place] [id number] XRay Report Signed Patient: Jemima Bradford MR#: [id number] : 1940 Acct:[id number] Age/Sex: 84 / F ADM Date: 5 Loc: [facility] Room: Type: [facility] Attending Dr: Sridevi Tovar II, MD Copies to: Sridevi Tovar MD~ Ordering Provider: Sridevi Tovar MD Date of Service: 10/21/24 XR/XR tibia fibula LT 2V*: Z47.1 - Aftercare following joint replacement surgery ([id number]) XR/XR knee LT 2V: Z47.1 - Aftercare following joint replacement surgery ([id number]) XR/XR femur LT 2V*: Z47.1 - Aftercare following joint replacementsurgery Single frontal view left femur and left tibia-fibula and 2 views of the left knee. CLINICAL HISTORY: Left total knee arthroplasty 07/27/2024 COMPARISON: No recent comparisons FINDINGS: Total knee arthroplasty with well aligned osseous components. No periprosthetic lucency identified. Patellar resurfacing noted. Frontal view ofthe femur and the tibia demonstrate no fracture. Slight valgus deformity at theleft knee noted. The postsurgical changes at the level ankle status post placement of surgical screws right medial malleolus and surgical plate and screws lateral malleolus/fibula. XR/XR tibia fibula LT 2V* IMPRESSION: Posterior changes left total knee arthroplasty with slight valgus deformity. No fracture dislocation of the left femur or tibia-fibula on the single frontal projection. Impression dictated by: Anders Chowdhury M.D.10/21/2024 2:08 PM Dictation Location: [place] [address] Transcribed By: [facility] 10/21/24 1408 Dictated By: Anders Chowdhury MD 10/21/24 1405 Signed By: 10/21/24 1408 [facility] Work Phone: XR knee LT 2Von 10-21-2024 XR knee LT 2V [facility] [address] [place] [address] XRay Report Signed Patient: Jemima Bradford MR#: [id number] : 1940 Acct:[id number] Age/Sex: 84 / F ADM Date: 10/21/24 Loc: [facility] Room: Type: [facility] Attending Dr: Sridevi Tovar II, MD Copies to: Sridevi Tovar MD Ordering Provider: Sridevi Tovar MD Date of Service: 10/21/24 XR/XR tibia fibula LT 2V*: Z47.1 - Aftercare following joint replacement surgery ([id number]) XR/XR knee LT 2V: Z47.1 - Aftercare following joint replacement surgery ([id number]) XR/XR femur LT 2V*: Z47.1 - Aftercare following joint replacement surgery Single frontal view left femur and left tibia-fibula and 2 views of the left knee. CLINICAL HISTORY: Left total knee arthroplasty 07/27/2024 COMPARISON: No recent comparisons FINDINGS: Total knee arthroplasty with well aligned osseous components. No periprosthetic lucency identified. Patellar resurfacing noted. Frontal view of the femur and the tibia demonstrate no fracture. Slight valgus deformity at the left knee noted. The postsurgical changes at the level ankle status post placement of surgical screws right medial malleolus and surgical plate and screws lateral malleolus/fibula. XR/XR tibia fibula LT 2V* IMPRESSION: Posterior changes left total knee arthroplasty with slight valgus deformity. No fracture dislocation of the left femur or tibia-fibula on the single frontal projection. Impression dictated by: Anders Chowdhury M.D.10/21/2024 2:08 PM Dictation Location: [place] [address] Transcribed By: [facility] 10/21/24 1408 Dictated By: Anders Chowdhury MD 10/21/24 140 Signed By: 10/21/24 1408 Normal [facility] Office Visiton 10-20-2024 Follow-up visit [id number] Kaushal Bradford ra 1940 F Date Provider Department Center 10/20/2024 SHARLA LEON [facility] Arianna Hos Family History Problem Relation Age of Onset Other Mother Stroke Father Other Father Other Father Breast cancer Sister Other Brother 50 Other Brother Family Status - Relation Status Age at Mother Father Sister Alive Brother Alive Level of Service:60722 HI OFFICE/OUTPATIENT ESTABLISHED LOW MDM 20 MIN Normal [facility] CNOVSPon 09-21-2024 CNOVSP Visit (SP) Office ([place]) ----- JEMIMA BRADFORD ([id number]) 1940 F Date Time Provider Department 09/21/24 11:00 AM BRYANNA ADAN During your visit today, we recorded the following information about you: Temperature Pulse Respiration Blood pressure 97.3 degrees 68/minute 18/minute 124/58 Weight 76.6 kg Bryanna Adan MD 09/21/2024 8:43 PM Signed PATIENT NAME: Jemima Bradford DATE: 09/21/2024 PRIMARY CARE PHYSICIAN: Jasmyne Casillas CNP ([facility]) OTHER PHYSICIANS: Dr. Keene, Dr. Ferrari ([facility], [place]), Dr. Pizarro, Dr. Arguelles, [facility] Dr. Mitzi Amaral, Dr. Tovar ([facility] orthopedic surgery) Portions of this encounter note have been copied from the note from 08/17/2024 and has been updated where appropriate, and reflect my current medical decision making from today. 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 INTERIM HISTORY: Since the patient's last visit here she has remained on anastrozole for breast cancer risk reduction after the diagnosis of DCIS. Since her knee surgery July 2024 she has had significant restless legs . Apparently medications her PCP wishes to prescribe are not compatible with anastrozole. Subsequently the patient elected to discontinue anastrozole after completing slightly more than 4 years of treatment. Other than restless legs and joint pain she feels well. No changes in her breast. Mild shortness of breath is unchanged. No new pulmonary symptoms. MEDICATIONS: anastrozole (ARIMIDEX) 1 mg tablet Take 1 tablet by mouth once daily. oxyCODONE IR (ROXICODONE) 5 mg immediate release tablet TAKE ONE TABLET BY MOUTH EVERY 6 HOURS NEEDED FOR MORE SEVERE PAIN traMADol (ULTRAM) 50 mg tablet TAKE ONE TABLET BY MOUTH EVERY 6 HOURS NEEDED FOR MODERATE PAIN FOR 7 DAYS bumetanide (BUMEX) 1 mg tablet Take 1 mg by mouth two times a day. montelukast (SINGULAIR) 10 mg tablet Take 10 mg by mouth once daily. metoprolol tartrate, short acting, (LOPRESSOR) 25 mg tablet Take 1/2 tablet by mouth twice daily. levothyroxine (SYNTHROID) 50 mcg tablet levothyroxine 50 mcg tablet TAKE 1 TABLET BY MOUTH DAILY FOR HYPOTHYROIDISM apixaban (ELIQUIS) 5 mg tab(s) Eliquis 5 mg tablet Take 1 tablet twice a day by oral route for 90 days. calcium carbonate (CALTRATE) 600 mg calcium (1,500 mg) tab 600 mg. melatonin 10 mg tab 10 mg. rosuvastatin (CRESTOR) 40 mg tablet Take 40 mg by mouth once daily. spironolactone (ALDACTONE) 25 mg tablet Take 25 mg by mouth once daily. esomeprazole (NEXIUM) 40 mg capsule Take 40 mg by mouth as directed. Twice per week nitroglycerin sublingual (NITROQUICK) 0.4 mg SL tablet Dissolve 1 tablet under the tongue every 5 minutes as needed. COQ10, UBIQUINOL, ORAL Take 1 tablet by mouth once daily. Chromium Picolinate 500 mcg cap Take 1 tablet by mouth once daily. MAGNESIUM ORAL Take 1 tablet by mouth once daily. 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 Aortic valve stenosis mild Arthritis Asthma controlled no inhalers Coronary artery disease Hypercholesteremia Hypertension Polymyalgia rheumatica (HCC) PAST SURGICAL HISTORY: PAST SURGICAL HISTORY Procedure Laterality Date APPENDECTOMY 07/01/1978 ARTHROSCOPY KNEE MEDIAL RELEASE 2002,2010 rt AND Lt knee ARTHRP KNE CONDYLEANDPLATU MEDIALANDLAT COMPARTMENTS Right 07/01/2013 right x2 BREAST LUMPECTOMY HX BUNIONECTOMY, LAPIDUS-TYPE 07/01/2010 rt toe CHOLECYSTECTOMY 07/01/2005 COLONOSCOPY AND POLYPECTOMY 2004, 2005, 2009 x 3 CYSTO LASER TX URETERAL CALC 07/01/2009 stent placement CYSTO W/RETROGRADE x 6 DANDC (INCOMPLETE AB), ANY TRIMESTER 07/01/1974 EXCISE EXCESS SKIN TISSUE,ABDOMEN 07/01/1994 Abdominalplasty KNEE SURGERY HX Left 07/27/2024 LITHOTRIPSY PROC UNILATERAL 07/01/1985 rt kidney PAST SURGICAL HISTORY OF 12/03/2019 CABG 1v, cryomaze and AVr REMV CATARACT EXTRACAP,INSERT LENS STENT PLACEMENT 07/01/2003 LAD TONSILLECTOMY HX as child REVIEW OF SYSTEMS: GENERAL: No weight loss, malaise or fevers. HEENT: Negative for frequent or significant headaches, No changes in hearing or vision, no nose bleeds or other nasal problems RESPIRATORY: Negative for cough, wheezing or shortness of breath. CARDIOVASCULAR: Negative for chest pain, leg swelling or palpitations. GI: Negative for abdominal discomfort, blood in stools or black stools or change in bowel habits : No history of dysuria, frequency or incontinence MUSCULOSKELETAL: Negative for: joint pain or swelling, back pain and muscle pain SK (more content not included)... Normal [facility] X-ray reportOrdered By: David Stubbs on 09-09-2024 Study report [facility] [address] [place] [address] XRay Report Signed Patient: Jemima Bradford MR#: [id number] : 1940 Acct:[id number] Age/Sex: 84 / F ADM Date: 5 Loc: SOXD Room: Type: REG CLI Attending Dr: Sridevi Tovar II, MD Copies to: Sridevi Tovar MD~ Ordering Provider: Sridevi Tovar MD Date of Service: 09/09/24 XR/XR knee LT 3V - NOT FOR ER USE: Z96.652 - Presenceof left artificial knee joint LEFT KNEE - 3 views CLINICAL HISTORY: Follow-up left TKA. COMPARISON: Left knee 07/27/2024 FINDINGS: No hardware complication or acute bony process. XR/XR knee LT 3V - NOT FOR ER USE IMPRESSION: NO HARDWARE COMPLICATION. Impression dictated by: Tuan Stubbs Jr. D.O.09/09/2024 4:15 PM Dictation Location: RADIO-PC-19 Transcribed By: PWS 09/09/241614 Dictated By: Tuan Stubbs Jr, DO 09/09/241614 Signed By: 09/09/24 1615 [facility] XR knee LT 3V - NOT FOR ER U Malik 09-09-2024 XR knee LT 3V - NOT FOR ER USE [facility] [address] [place] [address] XRay Report Signed Patient: Jemima Bradford MR#: [id number] : 1940 Acct:[id number] Age/Sex: 84 / F ADM Date: 09/09/24 Loc: [facility] Room: Type: [facility] CLI Attending Dr: Sridevi Tovar II, MD Copies to: Sridevi Tovar MD Ordering Provider: Sridevi Tovar MD Date of Service: 09/09/24 XR/XR knee LT 3V - NOT FOR ER USE: Z96.652 - Presence of left artificial knee joint LEFT KNEE - 3 views CLINICAL HISTORY: Follow-up left TKA. COMPARISON: Left knee 07/27/2024 FINDINGS: No hardware complication or acute bony process. XR/XR knee LT 3V - NOT FOR ER USE IMPRESSION: NO HARDWARE COMPLICATION. Impression dictated by: Tuan Stubbs Jr. D.O.09/09/2024 4:15 PM Dictation Location: RADIO-PC-19 Transcribed By: PWS 09/09/241614 Dictated By: Tuan Stubbs Jr, 09/09/241614 Signed By: 09/09/24 161 Normal [facility] CBC W Auto Differential pane l (Bld)on 08-17-2024 Basophils (Bld) [#/Vol] 0.06 10*3/uL [facility] Basophils/100 WBC (Bld) 1 % [facility] Differential cell count method Nom (Bld) Auto [facility] Eosinophils (Bld) [#/Vol] 0.21 10*3/uL [facility] Eosinophils/100 WBC (Bld) 3.4 % [facility] Erythrocyte distribution width (RBC) [Ratio] 17.6 % High 11.5 - 15.0 % [facility] Hematocrit (Bld) [Volume fraction] 32.6 % Low 36.0 - 46.0 % [facility] Hemoglobin (Bld) [Mass/Vol] 10.2 g/dL Low 11.5 - 15.5 g/dL [facility] Immature granulocytes (Bld) [#/Vol] [facility] Immature granulocytes/100 WBC (Bld) 0.3 % [facility] Interpretation and review of laboratory results Abnormal [facility] Lymphocytes (Bld) [#/Vol] 1.67 10*3/uL [facility] Lymphocytes/100 WBC (Bld) 27.1 % [facility] MCH (RBC) [Entitic mass] 28 pg 26.0 - 34.0 pg [facility] MCHC (RBC) [Mass/Vol] 31.3 g/dL 30.5 - 36.0 g/dL [facility] MCV (RBC) [Entitic vol] 89.6 fL 80.0 - 100.0 fL [facility] Monocytes (Bld) [#/Vol] 0.37 10*3/uL [facility] Monocytes/100 WBC (Bld) 6 % [facility] Neutrophils (Bld) [#/Vol] 3.83 10*3/uL [facility] Neutrophils/100 WBC (Bld) 62.2 % [facility] Nucleated RBC (Bld) [#/Vol] [facility] Nucleated RBC/100 WBC (Bld) [Ratio] 0 % /100 WBC [facility] Platelet mean volume (Bld) [Entitic vol] 9.3 fL 9.0 - 12.7 fL [facility] Platelets (Bld) [#/Vol] 256 10*3/uL [facility] RBC (Bld) [#/Vol] 3.64 10*6/uL Low 3.90 - 5.2 0 m/uL [facility] WBC (Bld) [#/Vol] 6.16 10*3/uL [facility] Basophils (Bld) [#/Vol] 0.06 10*3/uL Normal <0.11 [facility] Comment on above: Order Comment: Speci men Type: BLOOD SPECIMEN Ordering Facility: [facility] Address: [address] [place] [address] Performed By: #### 1 5061-5 #### [facility] CLIA [id number] [address] [place] [address] [place] Basophils/100 WBC (Bld) 1.0 % Normal [facility] Comment on above: Order Comment: Speci men Type: BLOOD SPECIMEN Ordering Facility: [facility] Address: [address] [place] [address] Performed By: #### 1 5061-5 #### [facility] CLIA [id number] [address] [place] [address] [place] Differential cell count method Nom (Bld) Auto Normal [facility] Comment on above: Order Comment: Speci men Type: BLOOD SPECIMEN Ordering Facility: [facility] Address: [address] [place] [address] Performed By: #### 1 5061-5 #### [facility] CLIA [id number] [address] [place] [address] [place] Eosinophils (Bld) [#/Vol] 0.21 10*3/uL Normal <0.46 [facility] Comment on above: Order Comment: Speci men Type: BLOOD SPECIMEN Ordering Facility: [facility] Address: [address] [place] [address] Performed By: #### 1 5061-5 #### [facility] CLIA [id number] [address] [place] [address] [place] Eosinophils/100 WBC (Bld) 3.4 % Normal [facility] Comment on above: Order Comment: Speci men Type: BLOOD SPECIMEN Ordering Facility: [facility] Address: [address] [place] [address] Performed By: #### 1 5061-5 #### [facility] CLIA [id number] [address] [place] [address] [place] Erythrocyte distribution width (RBC) [Ratio] 17.6 % High 11.5-15.0 [facility] Comment on above: Order Comment: Speci men Type: BLOOD SPECIMEN Ordering Facility: [facility] Address: [address] [place] [address] Performed By: #### 1 5061-5 #### [facility] CLIA [id number] [address] [place] [address] [place] Hematocrit (Bld) [Volume fraction] 32.6 % Low 36.0-46.0 [facility] Comment on above: Order Comment: Speci men Type: BLOOD SPECIMEN Ordering Facility: [facility] Address: [address] [place] [address] Performed By: #### 1 5061-5 #### [facility] CLIA [id number] [address] [place] [address] [place] Hemoglobin (Bld) [Mass/Vol] 10.2 g/dL Low 11.5-15.5 [facility] Comment on above: Order Comment: Speci men Type: BLOOD SPECIMEN Ordering Facility: [facility] Address: [address] [place] [address] Performed By: #### 1 5061-5 #### [facility] CLIA [id number] [address] [place] [address] [place] Immature granulocytes (Bld) [#/Vol] 10*3/uL Normal <0.10 [facility] Comment on above: Order Comment: Speci men Type: BLOOD SPECIMEN Ordering Facility: [facility] Address: [address] [place] [address] Performed By: #### 1 5061-5 #### [facility] CLIA [id number] [address] [place] [address] [place] Immature granulocytes/100 WBC (Bld) 0.3 % Normal [facility] Comment on above: Order Comment: Speci men Type: BLOOD SPECIMEN Ordering Facility: [facility] Address: [address] [place] [address] Performed By: #### 1 5061-5 #### [facility] CLIA [id number] [address] [place] [address] [place] Lymphocytes (Bld) [#/Vol] 1.67 10*3/uL Normal 1.00-4.00 [facility] Comment on above: Order Comment: Speci men Type: BLOOD SPECIMEN Ordering Facility: [facility] Address: [address] [place] [address] Performed By: #### 1 5061-5 #### [facility] CLIA [id number] [address] [place] [address] [place] Lymphocytes/100 WBC (Bld) 27.1 % Normal [facility] Comment on above: Order Comment: Speci men Type: BLOOD SPECIMEN Ordering Facility: [facility] Address: [address] [place] [address] Performed By: #### 1 5061-5 #### [facility] CLIA [id number] [address] [place] [address] [place] MCH (RBC) [Entitic mass] 28.0 pg Normal 26.0-34.0 [facility] Comment on above: Order Comment: Speci men Type: BLOOD SPECIMEN Ordering Facility: [facility] Address: [address] [place] [address] Performed By: #### 1 5061-5 #### [facility] CLIA [id number] [address] [place] [address] [place] MCHC (RBC) [Mass/Vol] 31.3 g/dL Normal 30.5-36.0 [facility] Comment on above: Order Comment: Speci men Type: BLOOD SPECIMEN Ordering Facility: [facility] Address: [address] [place] [address] Performed By: #### 1 5061-5 #### [facility] CLIA [id number] [address] [place] [address] [place] MCV (RBC) [Entitic vol] 89.6 fL Normal 80.0-100.0 [facility] Comment on above: Order Comment: Speci men Type: BLOOD SPECIMEN Ordering Facility: [facility] Address: [address] [place] [address] Performed By: #### 1 5061-5 #### [facility] CLIA [id number] [address] [place] [address] [place] Monocytes (Bld) [#/Vol] 0.37 10*3/uL Normal <0.87 [facility] Comment on above: Order Comment: Speci men Type: BLOOD SPECIMEN Ordering Facility: [facility] Address: [address] [place] [address] Performed By: #### 1 5061-5 #### [facility] CLIA [id number] [address] [place] [address] [place] Monocytes/100 WBC (Bld) 6.0 % Normal [facility] Comment on above: Order Comment: Speci men Type: BLOOD SPECIMEN Ordering Facility: [facility] Address: [address] [place] [address] Performed By: #### 1 5061-5 #### [facility] CLIA [id number] [address] [place] [address] [place] Neutrophils (Bld) [#/Vol] 3.83 10*3/uL Normal 1.45-7.50 [facility] Comment on above: Order Comment: Speci men Type: BLOOD SPECIMEN Ordering Facility: [facility] Address: [address] [place] [address] Performed By: #### 1 5061-5 #### [facility] CLIA [id number] [address] [place] [address] [place] Neutrophils/100 WBC (Bld) 62.2 % Normal [facility] Comment on above: Order Comment: Speci men Type: BLOOD SPECIMEN Ordering Facility: [facility] Address: [address] [place] [address] Performed By: #### 1 5061-5 #### [facility] CLIA [id number] [address] [place] [address] [place] Nucleated RBC (Bld) [#/Vol] 10*3/uL Normal <0.01 [facility] Comment on above: Order Comment: Speci men Type: BLOOD SPECIMEN Ordering Facility: [facility] Address: [address] [place] [address] Performed By: #### 1 5061-5 #### [facility] CLIA [id number] [address] [place] [address] [place] Nucleated RBC/100 WBC (Bld) [Ratio] 0.0 /100 WBC Normal [facility] Comment on above: Order Comment: Speci men Type: BLOOD SPECIMEN Ordering Facility: [facility] Address: [address] [place] [address] Performed By: #### 1 5061-5 #### [facility] CLIA [id number] [address] [place] [address] [place] Platelet mean volume (Bld) [Entitic vol] 9.3 fL Normal 9.0-12.7 [facility] Comment on above: Order Comment: Speci men Type: BLOOD SPECIMEN Ordering Facility: [facility] Address: [address] [place] [address] Performed By: #### 1 5061-5 #### [facility] CLIA [id number] [address] [place] [address] [place] Platelets (Bld) [#/Vol] 256 10*3/uL Normal 150-400 [facility] Comment on above: Order Comment: Speci men Type: BLOOD SPECIMEN Ordering Facility: [facility] Address: [address] [place] [address] Performed By: #### 1 5061-5 #### [facility] CLIA [id number] [address] [place] [address] [place] RBC (Bld) [#/Vol] 3.64 10*6/uL Low 3.90-5.20 [facility] Comment on above: Order Comment: Speci men Type: BLOOD SPECIMEN Ordering Facility: [facility] Address: [address] [place] [address] Performed By: #### 1 5061-5 #### [facility] IA [id number] [address] [place] [address] [place] WBC (Bld) [#/Vol] 6.16 10*3/uL Normal 3.70-11.00 [facility] Comment on above: Order Comment: Speci men Type: BLOOD SPECIMEN Ordering Facility: [facility] Address: [address] [place] [address] Performed By: #### 1 5061-5 #### [facility] IA [id number] [address] [place] [address] [place] CNOVSPon 08-17-2024 CNOVSP Visit (SP) Office ([place]) ----- JEMIMA BRADFORD ([id number]) 1940 F Date Time Provider Department 08/17/24 10:00 AM BRYANNA ADAN During your visit today, we recorded the following information about you: Temperature Pulse Respiration Blood pressure 97.1 degrees 76/minute 18/minute 130/76 Weight 77.1 kg Bryanna Adan MD 08/17/2024 7:22 PM Signed PATIENT NAME: Jemima Bradford DATE: 08/17/2024 PRIMARY CARE PHYSICIAN: Jasmyne Casillas, CUR[place] ([facility]) OTHER PHYSICIANS: Dr. Keene, Dr. Ferrari ([facility], [place]), Dr. Pizarro, Dr. Arguelles, Dr. Shaniqua Ellsworth (Pulmonary, [place]), Dr. Mitzi Amaral, Dr. Tovar ([facility] orthopedic surgery) Portions of this encounter note have been copied from my note from 05/25/2024 and has been updated where appropriate, and reflect my current medical decision making from today. 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 INTERIM HISTORY: Since the patient's last visit here she underwent left knee replacement at [facility] per Dr. Tovar on 07/27/2024. She tolerated surgery well with no immediate complications. She has ongoing pain and swelling in the area, but symptoms not severe. Otherwise no significant medical changes. Chronic shortness of breath is unchanged. No new pulmonary symptoms. She has noticed no changes in her breasts. She remains on anastrozole and is tolerating it well. MEDICATIONS: oxyCODONE IR (ROXICODONE) 5 mg immediate release tablet TAKE ONE TABLET BY MOUTH EVERY 6 HOURS NEEDED FOR MORE SEVERE PAIN traMADol (ULTRAM) 50 mg tablet TAKE ONE TABLET BY MOUTH EVERY 6 HOURS NEEDED FOR MODERATE PAIN FOR 7 DAYS bumetanide (BUMEX) 1 mg tablet Take 1 mg by mouth two times a day. anastrozole (ARIMIDEX) 1 mg tablet Take 1 tablet by mouth once daily. montelukast (SINGULAIR) 10 mg tablet Take 10 mg by mouth once daily. metoprolol tartrate, short acting, (LOPRESSOR) 25 mg tablet Take 1/2 tablet by mouth twice daily. levothyroxine (SYNTHROID) 50 mcg tablet levothyroxine 50 mcg tablet TAKE 1 TABLET BY MOUTH DAILY FOR HYPOTHYROIDISM apixaban (ELIQUIS) 5 mg tab(s) Eliquis 5 mg tablet Take 1 tablet twice a day by oral route for 90 days. calcium carbonate (CALTRATE) 600 mg calcium (1,500 mg) tab 600 mg. melatonin 10 mg tab 10 mg. rosuvastatin (CRESTOR) 40 mg tablet Take 40 mg by mouth once daily. spironolactone (ALDACTONE) 25 mg tablet Take 25 mg by mouth once daily. esomeprazole (NEXIUM) 40 mg capsule Take 40 mg by mouth as directed. Twice per week nitroglycerin sublingual (NITROQUICK) 0.4 mg SL tablet Dissolve 1 tablet under the tongue every 5 minutes as needed. COQ10, UBIQUINOL, ORAL Take 1 tablet by mouth once daily. Chromium Picolinate 500 mcg cap Take 1 tablet by mouth once daily. MAGNESIUM ORAL Take 1 tablet by mouth once daily. 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 Aortic valve stenosis mild Arthritis Asthma controlled no inhalers Coronary artery disease Hypercholesteremia Hypertension Polymyalgia rheumatica (HCC) PAST SURGICAL HISTORY: PAST SURGICAL HISTORY Procedure Laterality Date APPENDECTOMY 07/01/1978 ARTHROSCOPY KNEE MEDIAL RELEASE 2002,2010 rt AND Lt knee ARTHRP KNE CONDYLEANDPLATU MEDIALANDLAT COMPARTMENTS Right 07/01/2013 right x2 BREAST LUMPECTOMY HX BUNIONECTOMY, LAPIDUS-TYPE 07/01/2010 rt toe CHOLECYSTECTOMY 07/01/2005 COLONOSCOPY AND POLYPECTOMY 2004, 2005, 2009 x 3 CYSTO LASER TX URETERAL CALC 07/01/2009 stent placement CYSTO W/RETROGRADE x 6 DANDC (INCOMPLETE AB), ANY TRIMESTER 07/01/1974 EXCISE EXCESS SKIN TISSUE,ABDOMEN 07/01/1994 Abdominalplasty KNEE SURGERY HX Left 07/27/2024 LITHOTRIPSY PROC UNILATERAL 07/01/1985 rt kidney PAST SURGICAL HISTORY OF 12/03/2019 CABG 1v, cryomaze and AVr REMV CATARACT EXTRACAP,INSERT LENS STENT PLACEMENT 07/01/2003 LAD TONSILLECTOMY HX as child REVIEW OF SYSTEMS: GENERAL: No weight loss, malaise or fevers. HEENT: Negative for frequent or significant headaches, No changes in hearing or vision, no nose bleeds or other nasal problems RESPIRATORY: Negative for cough, wheezing or shortness of breath. CARDIOVASCULAR: Negative for chest pain, leg swelling or palpitations. GI: Negative for abdominal discomfort, blood in stools or black stools or change in bowel habits : No history of dysuria, frequency or incontinence MUSCULOSKELETAL: Negative for: joint pain or swelling, back pain and muscle pain SKIN: Negative for lesions, rash, and itching. HEMATOLOGY/LYMPHOLOGY: Negative for prolonged bleeding, bruising (more content not included)... Normal [facility] Comprehensive metabolic 2000 panelOrdered By: Manisha Dover on 08-17-2024 Albumin [Mass/Vol] 4.3 g/dL 3.9 - 4.9 g/dL [facility] ALP [Catalytic activity/Vol] 118 U/L 34 - 123 U/L [facility] ALT [Catalytic activity/Vol] 7 U/L 7 - 38 U/L [facility] Anion gap [Moles/Vol] 12 mmol/L 8 - 15 mmol/L [facility] AST [Catalytic activity/Vol] 17 U/L 13 - 35 U/L [facility] Bilirubin [Mass/Vol] 0.5 mg/dL 0.2 - 1 .3 mg/dL [facility] Calcium [Mass/Vol] 10 mg/dL 8.5 - 10. 2 mg/dL [facility] Chloride [Moles/Vol] 104 mmol/L 98 - 10 7 mmol/L [facility] CO2 [Moles/Vol] 27 mmol/L 22 - 30 mmol/L [facility] Creatinine [Mass/Vol] 1.15 mg/dL High 0.58 - 0.96 mg/dL [facility] GFR/1.73 sq M.predicted among non-blacks MDRD (S/P/Bld) [Vol rate/Area] 47 mL/min/{1.73_m2} Low - PINF [facility] Comment on above: Estimated Glomerular Filtration Rate (eGFR) is calculated using the 2020 CKD-EPI creatinine equation. This equation utilizes serum creatinine, sex, and age as parameters. The creatinine assay has traceable calibration to isotope dilution-mass spectrometry. Refer to KDIGO guidelines for clinical interpretation. In patients with unstable renal function, e.g. those with acute kidney injury, the eGFR may not accurately reflect actual GFR. Glucose [Mass/Vol] 127 mg/dL High 74 - 99 mg/dL [facility] Comment on above: The [place] Diabete s Association (ADA) provides guidance for cutoff values [...] Standards of Medical Care in Diabetes 2016, [place] Diabetes Association. Diabetes Care. 2016.39(Suppl 1). Interpretation and review of laboratory results Abnormal [facility] Potassium [Moles/Vol] 3.6 mmol/L Low 3.7 - 5.1 mmol/L [facility] Protein [Mass/Vol] 6.5 g/dL 6.3 - 8.0 g/dL [facility] Sodium [Moles/Vol] 143 mmol/L 136 - 144 mmol/L [facility] Urea nitrogen [Mass/Vol] 20 mg/dL 7 - 21 mg/dL [facility] Comprehensive metabolic 2000 panelon 08-17-2024 Albumin [Mass/Vol] 4.3 g/dL Normal 3.9-4.9 [facility] Comment on above: Order Comment: Speci men Type: BLOOD SPECIMENOrdering Facility: [facility] Address: [address] [place] [address] Performed By: #### 2 4323-8 ####[facility] LABCLIA [id number] [place] [address] ALP [Catalytic activity/Vol] 118 U/L Normal 34-123 [facility] Comment on above: Order Comment: Shadii men Type: BLOOD SPECIMENOrdering Facility: [facility] Address: [address] [place] [address] Performed By: #### 2 4323-8 ####[facility] LABCLIA [id number] [place] [address] ALT [Catalytic activity/Vol] 7 U/L Normal 7-38 [facility] Comment on above: Order Comment: Speci men Type: BLOOD SPECIMENOrdering Facility: [facility] Address: [address] [place] [address] Performed By: #### 2 4323-8 ####[facility] LABCLIA [id number] [place] [address] Anion gap [Moles/Vol] 12 mmol/L Normal 8-15 [facility] Comment on above: Order Comment: Speci men Type: BLOOD SPECIMENOrdering Facility: [facility] Address: [address] [place] [address] Performed By: #### 2 4323-8 ####[facility] LABCLIA [id number] [place] [address] AST [Catalytic activity/Vol] 17 U/L Normal 13-35 [facility] Comment on above: Order Comment: Speci men Type: BLOOD SPECIMENOrdering Facility: [facility] Address: [address] [place] [address] Performed By: #### 2 4323-8 ####[facility] LABCLIA [id number] [place] [address] Bilirubin [Mass/Vol] 0.5 mg/dL Normal 0.2-1.3 [facility] Comment on above: Order Comment: Speci men Type: BLOOD SPECIMENOrdering Facility: [facility] Address: [address] [place], [place] [id number] Performed By: #### 2 4323-8 ####[facility] LABCLIA [id number] [place] [address] Calcium [Mass/Vol] 10.0 mg/dL Normal 8.5-10.2 [facility] Comment on above: Order Comment: Speci men Type: BLOOD SPECIMENOrdering Facility: [facility] Address: [address] [place] [address] Performed By: #### 2 4323-8 ####[facility] LABCLIA [id number] [place] [address] Chloride [Moles/Vol] 104 mmol/L Normal 98-107 [facility] Comment on above: Order Comment: Speci men Type: BLOOD SPECIMENOrdering Facility: [facility] Address: [address] [place] [address] Performed By: #### 2 4323-8 ####[facility] LABCLIA [id number] [place] [address] CO2 [Moles/Vol] 27 mmol/L Normal 22-30 [facility] Comment on above: Order Comment: Speci men Type: BLOOD SPECIMENOrdering Facility: [facility] Address: [address] [place] [address] Performed By: #### 2 4323-8 ####[facility] LABCLIA [id number] [place] [address] Creatinine [Mass/Vol] 1.15 mg/dL High 0.58-0.96 [facility] Comment on above: Order Comment: Speci men Type: BLOOD SPECIMENOrdering Facility: [facility] Address: [address] [place] [address] Performed By: #### 2 4323-8 ####[facility] LABCLIA [id number] [place] [address] Creatinine and Glomerular filtration rate.predicted panel (S/P/Bld) 47 mL/min/1.73m??? Low >=60 [facility] Comment on above: Order Comment: Speci men Type: BLOOD SPECIMENOrdering Facility: [facility] Address: [address] [place] [address] Result Comment: Dee mated Glomerular Filtration Rate (eGFR) is calculated using the 2020 CKD-EPI creatinine equation. This equation utilizes serum creatinine, sex, and age as parameters. The creatinine assay has traceable calibration to isotope dilution-mass spectrometry. Refer to KDIGO guidelines for clinical interpretation. In patients with unstable renal function, e.g. those with acute kidney injury, the eGFR may not accurately reflect actual GFR. Performed By: #### 2 4323-8 ####[facility] LABCLIA [id number] [place] [address] Glucose [Mass/Vol] 127 mg/dL High 74-99 [facility] Comment on above: Order Comment: Speci men Type: BLOOD SPECIMENOrdering Facility: [facility] Address: [address] [place] [address] Result Comment: The [place] Diabetes Association (ADA) provides guidance for cutoff [...] Standards of Medical Care in Diabetes 2016, [place] Diabetes Association. Diabetes Care. 2016.39(Suppl 1). Performed By: #### 2 4323-8 ####[facility] LABCLIA [id number] [place] [address] Potassium [Moles/Vol] 3.6 mmol/L Low 3.7-5.1 [facility] Comment on above: Order Comment: Speci men Type: BLOOD SPECIMENOrdering Facility: [facility] Address: [address] [place] [address] Performed By: #### 2 4323-8 ####[facility] LABCLIA [id number] [place] [address] Protein [Mass/Vol] 6.5 g/dL Normal 6.3-8.0 [facility] Comment on above: Order Comment: Speci men Type: BLOOD SPECIMENOrdering Facility: [facility] Address: [address] [place] [address] Performed By: #### 2 4323-8 ####[facility] LABCLIA [id number] [place] [address] Sodium [Moles/Vol] 143 mmol/L Normal 136-144 [facility] Comment on above: Order Comment: Speci men Type: BLOOD SPECIMENOrdering Facility: [facility] Address: [address] [place] [address] Performed By: #### 2 4323-8 ####[facility] LABCLIA [id number] [place] [address] Urea nitrogen [Mass/Vol] 20 mg/dL Normal 7-21 [facility] Comment on above: Order Comment: Speci men Type: BLOOD SPECIMENOrdering Facility: [facility] Address: [address] [place] [address] Performed By: #### 2 4323-8 ####[facility] LABCLIA [id number] [place] [address] CT CHEST WO IVCONon 08-10-19 CT CHEST WO IVCON * * *Final Report* * * DATE OF EXAM: Aug 10 2024 10:24AM [facility] 0541 - CT CHEST WO IVCON / PROCEDURE REASON: Malignant neoplasm of unspecified part of unspecified bronchus or lung (HCC) * * * * Physician Interpretation * * * * RESULT: EXAMINATION: CHEST CT WITHOUT CONTRAST CLINICAL HISTORY: Non-small cell lung cancer Technique: Spiral CT acquisition of the chest from the thoracic inlet to the upper abdomen without contrast. MQ: CTCWO_6 CT Radiation dose: Integrated Dose-length product (DLP) for this visit = 252 mGy*cm CT Dose Reduction Employed: Automated exposure control (AEC) Comparison: 05/19/24 RESULT: Limitations: None. Lines, tubes, and devices: None. Lung parenchyma and airways: Postoperative changes in the left upper lobe. Subcentimeter nodular opacities and groundglass opacities measuring up to 6 mm, stable. For example: Right upper lobe (4:33, 35) The central airways are patent. Pleural space: No pleural effusion. No pleural thickening. Lower neck, lymph nodes, and mediastinum: The imaged thyroid gland is normal. Subcentimeter left axillary lymph nodes are stable. Small hiatal hernia. Heart, pericardium, and thoracic vessels: The thoracic aorta is normal in caliber. Prominence of the main pulmonary artery measuring 3.2 cm in diameter can be associated with pulmonary hypertension. The cardiac chambers are normal in size. Postoperative changes of anterior chest. Left atrial appendage is noted. No pericardial effusion or thickening. Bones and soft tissues: No destructive bone lesion. Chest wall is unremarkable. Upper abdomen: No evidence of an adrenal mass. Localizer images: No additional findings. IMPRESSION: 1. No interval change since 05/19/24. 2. Subcentimeter nodular opacities and groundglass opacities, stable. 2. Subcentimeter thoracic lymph nodes, stable. Transcribe Date/Time: Aug 10 2024 12:06P Dictated by: JAMES ELY MD This examination was interpreted and the report reviewed and electronically signed by: JAMES ELY MD on Aug 10 2024 12:26PM EST Thank you for allowing us to participate in the care of your patient. Should there be any questions regarding this interpretation, please call [phone]. If you are unable to reach us at the number above, please feel free to contact [facility] at [phone]. [id number] Normal [facility] CT Chest WO contraston 08-10 IMPRESSION: 1. No interval change since 05/19/24. 2. Subcentimeter nodular opacities and groundglass opacities, stable. 2. Subcentimeter thoracic lymph nodes, stable. Transcribe Date/Time: Aug 10 2024 12:06P Dictated by: JAMES ELY MD This examination was interpreted and the report reviewed and electronically signed by: JAMES ELY MD on Aug 10 2024 12:26PM EST Thank you for allowing us to participate in the care of your patient. Should there be any questions regarding this interpretation, please call [phone]. If you are unable to reach us at the number above, please feel free to contact [facility] at [phone]. DIVISION OF RADIOLOGY * * *Final Report* * * DATE OF EXAM: Aug 10 2024 10:24AM [facility] 0541 - CT CHEST WO IVCON / PROCEDURE REASON: Malignant neoplasm of unspecified part of unspecified bronchus or lung (HCC) * * * * Physician Interpretation * * * * RESULT: EXAMINATION: CHEST CT WITHOUT CONTRAST CLINICAL HISTORY: Non-small cell lung cancer Technique: Spiral CT acquisition of the chest from the thoracic inlet to the upper abdomen without contrast. MQ: CTCWO_6 CT Radiation dose: Integrated Dose-length product (DLP) for this visit = 252 mGy*cm CT Dose Reduction Employed: Automated exposure control (AEC) Comparison: 05/19/24 RESULT: Limitations: None. Lines, tubes, and devices: None. Lung parenchyma and airways: Postoperative changes in the left upper lobe. Subcentimeter nodular opacities and groundglass opacities measuring up to 6 mm, stable. For example: Right upper lobe (4:33, 35) The central airways are patent. Pleural space: No pleural effusion. No pleural thickening. Lower neck, lymph nodes, and mediastinum: The imaged thyroid gland is normal. Subcentimeter left axillary lymph nodes are stable. Small hiatal hernia. Heart, pericardium, and thoracic vessels: The thoracic aorta is normal in caliber. Prominence of the main pulmonary artery measuring 3.2 cm in diameter can be associated with pulmonary hypertension. The cardiac chambers are normal in size. Postoperative changes of anterior chest. Left atrial appendage is noted. No pericardial effusion or thickening. Bones and soft tissues: No destructive bone lesion. Chest wall is unremarkable. Upper abdomen: No evidence of an adrenal mass. Localizer images: No additional findings. DIVISION OF RADIOLOGY [facility] 08/10/[facility]24 * * *Final Report* * * DATE OF EXAM: Aug 10 2024 10:24AM [facility] 0541 - CT CHEST WO IVCON / PROCEDURE REASON: Malignant neoplasm of unspecified part of unspecified bronchus or lung (HCC) * * * * Physician Interpretation * * * * RESULT: EXAMINATION: CHEST CT WITHOUT CONTRAST CLINICAL HISTORY: Non-small cell lung cancer Technique: Spiral CT acquisition of the chest from the thoracic inlet to the upper abdomen without contrast. MQ: CTCWO_6 CT Radiation dose: Integrated Dose-length product (DLP) for this visit = 252 mGy*cm CT Dose Reduction Employed: Automated exposure control (AEC) Comparison: 05/19/24 RESULT: Limitations: None. Lines, tubes, and devices: None. Lung parenchyma and airways: Postoperative changes in the left upper lobe. Subcentimeter nodular opacities and groundglass opacities measuring up to 6 mm, stable. For example: Right upper lobe (4:33, 35) The central airways are patent. Pleural space: No pleural effusion. No pleural thickening. Lower neck, lymph nodes, and mediastinum: The imaged thyroid gland is normal. Subcentimeter left axillary lymph nodes are stable. Small hiatal hernia. Heart, pericardium, and thoracic vessels: The thoracic aorta is normal in caliber. Prominence of the main pulmonary artery measuring 3.2 cm in diameter can be associated with pulmonary hypertension. The cardiac chambers are normal in size. Postoperative changes of anterior chest. Left atrial appendage is noted. No pericardial effusion or thickening. Bones and soft tissues: No destructive bone lesion. Chest wall is unremarkable. Upper abdomen: No evidence of an adrenal mass. Localizer images: No additional findings. IMPRESSION IMPRESSION: 1. No interval change since 05/19/24. 2. Subcentimeter nodular opacities and groundglass opacities, stable. 2. Subcentimeter thoracic lymph nodes, stable. Transcribe Date/Time: Aug 10 2024 12:06P Dictated by: JAMES ELY MD This examination was interpreted and the report reviewed and electronically signed by: JAMES ELY MD on Aug 10 2024 12:26PM EST Thank you for allowing us to participate in the care of your patient. Should there be any questions regarding this interpretation, please call [phone]. If you are unable to reach us at the number above, please feel free to contact [facility]Radiology at [phone]. [facility] Study observation (narrative) [facility] CT Chest WO contrastOrdered By: Ccf Provider on 08-10-2024 [facility] Basic Metabolic Panelon 02-0 Anion gap [Moles/Vol] 9.1 mmol/L Normal 6.0-15.0 [facility] Comment on above: Performed By: #### C BC #### [facility] [address] [place] [address] [place] #### FRUC #### [facility] , Calcium [Mass/Vol] 9.2 mg/dL Normal 8.6-10.3 [facility] Comment on above: Performed By: #### C BC #### [facility] [address] [place] [address] [place] #### FRUC #### [facility] , Chloride [Moles/Vol] 107 mmol/L Normal 98-107 [facility] Comment on above: Performed By: #### C BC #### [place] [address] [place] #### FRUC #### [facility] , CO2 [Moles/Vol] 29.9 mmol/L Normal 21.0-31.0 [facility] Comment on above: Performed By: #### C BC #### [address] #### FRUC #### [facility] , Creatinine [Mass/Vol] 1.17 mg/dL Normal 0.60-1.20 [facility] Comment on above: Performed By: #### C BC #### [place] [address] [place] #### FRUC #### [facility] , Creatinine Clr Calc Pharmacy 39.22 Normal [facility] Comment on above: Result Comment: PERF ORMED BY: [place] [address] PATHOLOGIST TISSUE COORDINATOR COLIN MORGAN M.D. Performed By: #### C BC #### [place] [address] [place] #### FRUC #### [facility] , Estimated GFR 46.300 mL/Min Normal [facility] Comment on above: Performed By: #### C BC #### [facility] [address] [place] [address] [place] #### FRUC #### [facility] , Glucose [Mass/Vol] 109 mg/dL High 70-100 [facility] Comment on above: Result Comment: [place] Glucose Reference Range is dependent on time and content of last meal. Glucose of more than 200 mg/dL in a nonstressed, ambulatory subject supports the diagnosis of Diabetes Mellitus. ADA recommended reference range Performed By: #### C BC #### [place] [address] [place] #### FRUC #### [facility] , Potassium [Moles/Vol] 4.0 mmol/L Normal 3.5-5.1 [facility] Comment on above: Performed By: #### C BC #### [place] [address] [place] #### FRUC #### [facility] , Sodium [Moles/Vol] 142 mmol/L Normal 136-145 [facility] Comment on above: Performed By: #### C BC #### [place] [address] [place] #### FRUC #### [facility] , Urea nitrogen [Mass/Vol] 29 mg/dL High 7-25 [facility] Comment on above: Performed By: #### C BC #### [facility] [address] [place] [address] [place] #### FRUC #### [facility] , Calcium [Mass/volume] in Ser um or PlasmaOrdered By: Tuan Farrell on 08-01-2024 Calcium [Mass/Vol] Calcium [Mass/volume ] in Serum or Plasma 8.6-10.3 [facility] Carbon dioxide, total [Moles /volume] in Serum or PlasmaOrdered By: Tuan Farrell on 08-01-2024 CO2 [Moles/Vol] Carbon dioxide, tota l [Moles/volume] in Serum or Plasma 21.0-31.0 [facility] Chloride [Moles/volume] in S manjula or PlasmaOrdered By: Tuan Farrell on 08-01-2024 Chloride [Moles/Vol] Chloride [Moles/vol ume] in Serum or Plasma 98-107 [facility] Creatinine [Mass/volume] in Serum or PlasmaOrdered By: Tuan Farrell on 08-01-2024 Creatinine [Mass/Vol] Creatinine [Mass/v olume] in Serum or Plasma 0.60-1.20 [facility] Glucose [Mass/volume] in Ser um or PlasmaOrdered By: Tuan Farrell on 08-01-2024 Glucose [Mass/Vol] Glucose [Mass/volume ] in Serum or Plasma High 70-100 [facility] Comment on above: ADA recommended refe rence rangeRandom Glucose Reference Range is dependent on time and content of last meal. Glucose of more than 200 mg/dL in a nonstressed, ambulatory subject supports the diagnosis of Diabetes Mellitus. No Panel InformationOrdered By: Tuan Farrell on 08-01-2024 Estimated GFR (CKD-EPI) 46.300 mL/Min [facility] Creatinine Clearance (Chem 39.22 [facility] Potassium [Moles/volume] in Serum or PlasmaOrdered By: Tuan Farrell on 08-01-2024 Potassium [Moles/Vol] Potassium [Moles/v olume] in Serum or Plasma 3.5-5.1 [facility] Serum or plasma anion gap de terminationOrdered By: Tuan Farrell on 08-01-2024 Anion gap [Moles/Vol] Serum or plasma an ion gap determination 6.0-15.0 [facility] Sodium [Moles/volume] in Ser um or PlasmaOrdered By: Tuan aFrrell on 08-01-2024 Sodium [Moles/Vol] Sodium [Moles/volume ] in Serum or Plasma 136-145 [facility] Urea nitrogen [Mass/volume] in Serum or PlasmaOrdered By: Tuan Farrell on 08-01-2024 Urea nitrogen [Mass/Vol] Urea nitrogen [Mass/volume] in Serum or Plasma High 7-25 [facility] Alanine aminotransferase [En zymatic activity/volume] in Serum or PlasmaOrdered By: Tuan Farrell on 07-29-2024 ALT [Catalytic activity/Vol] Alanine aminotransferase [Enzymatic activity/volume] in Serum or Plasma 7-52 [facility] Albumin [Mass/volume] in Ser um or Plasma by Bromocresol green (BCG) dye binding methoOrdered By: Tuan Farrell on 07-29-2024 Albumin BCG dye [Mass/Vol] Albumin [Mass/volume] in Serum or Plasma by Bromocresol green (BCG) dye binding metho 3.5-5.7 [facility] Alkaline phosphatase [Enzyma tic activity/volume] in Serum or PlasmaOrdered By: Tuan Farrell on 07-29-2024 ALP [Catalytic activity/Vol] Alkaline phosphatase [Enzymatic activity/volume] in Serum or Plasma 34-104 [facility] Aspartate aminotransferase [ Enzymatic activity/volume] in Serum or PlasmaOrdered By: Tuan Farrell on 07-29-2024 AST [Catalytic activity/Vol] Aspartate aminotransferase [Enzymatic activity/volume] in Serum or Plasma 13-39 [facility] Basophils Auto (Bld) [#/Vol] Ordered By: Tuan Farrell on 07-29-2024 Basophils (Bld) [#/Vol] Automated basophil count 0.0-0.2 [facility] Basophils/100 WBC Auto (Bld) Ordered By: Tuan Farrell on 07-29-2024 Basophils/100 WBC (Bld) Automated basophil % . [facility] Bilirubin.total [Mass/volume ] in Serum or PlasmaOrdered By: Tuan Farrell on 07-29-2024 Bilirubin [Mass/Vol] Bilirubin.total [Mass/volume] in Serum or Plasma 0.3-1.0 [facility] Complete Blood Count Auto Di ffon 07-29-2024 Basophils (Bld) [#/Vol] 0.0 10*3/uL Normal 0.0-0.2 [facility] Comment on above: Result Comment: PERF ORMED BY: [place] [address] PATHOLOGIST TISSUE COORDINATOR COLIN MORGAN M.D. Performed By: #### F E and TIBC, EMMY #### [address] Basophils/100 WBC (Bld) 0.6 % Normal . [facility] Comment on above: Performed By: #### F E and TIBC, EMMY #### [address] Eosinophils (Bld) [#/Vol] 0.1 10*3/uL Normal 0.0-0.45 [facility] Comment on above: Performed By: #### F E and TIBC, EMMY #### [address] Eosinophils/100 WBC (Bld) 1.4 % Normal . [facility] Comment on above: Performed By: #### F E and TIBC, EMMY #### [address] Erythrocyte distribution width (RBC) [Ratio] 18.1 % High 11.9-15.3 [facility] Comment on above: Performed By: #### F E and TIBC, EMMY #### [address] Hematocrit (Bld) [Volume fraction] 28.3 % Low 34.0-46.4 [facility] Comment on above: Performed By: #### F E and TIBC, EMMY #### [address] Hemoglobin (Bld) [Mass/Vol] 9.5 g/dL Low 11.8-15.4 [facility] Comment on above: Performed By: #### F E and TIBC, EMMY #### [address] Lymphocytes (Bld) [#/Vol] 1.7 10*3/uL Normal 1.00-4.8 [facility] Comment on above: Performed By: #### F E and TIBC, EMMY #### [address] Lymphocytes/100 WBC (Bld) 22.5 % Normal . [facility] Comment on above: Performed By: #### F E and TIBC, EMMY #### [address] MCH (RBC) [Entitic mass] 27.7 pg Normal 24.7-34.3 [facility] Comment on above: Performed By: #### F E and TIBC, EMMY #### [address] MCV (RBC) [Entitic vol] 82.7 fL Normal 80-100 [facility] Comment on above: Performed By: #### F E and TIBC, EMMY #### [address] Mean Corpuscular HGB Conc 33.5 g/dL Normal 32.0-35.0 [facility] Comment on above: Performed By: #### F E and TIBC, EMMY #### [address] Monocytes (Bld) [#/Vol] 1.0 10*3/uL High 0.0-0.8 [facility] Comment on above: Performed By: #### F E and TIBC, EMMY #### [address] Monocytes/100 WBC (Bld) 13.0 % Normal . [facility] Comment on above: Performed By: #### F E and TIBC, EMMY #### [address] Neutrophils (Bld) [#/Vol] 4.7 10*3/uL Normal 1.8-7.7 [facility] Comment on above: Performed By: #### F E and TIBC, EMMY #### [address] Neutrophils/100 WBC (Bld) 62.5 % Normal . [facility] Comment on above: Performed By: #### F E and TIBC, EMMY #### [address] NRBC% 0.1 /100{WBC} Normal 0-0.5 The [facility] Comment on above: Performed By: #### F E and TIBC, EMMY #### [address] Platelet mean volume (Bld) [Entitic vol] 8.3 fL Normal 6.3-10.7 The [facility] Comment on above: Performed By: #### F E and TIBC, EMMY #### [address] Platelets (Bld) [#/Vol] 149 10*3/uL Low 150-450 [facility] Comment on above: Performed By: #### F E and TIBC, EMMY #### [address] RBC (Bld) [#/Vol] 3.43 10*6/uL Low 3.60-5.00 The [facility] Comment on above: Performed By: #### F E and TIBC, EMMY #### [address] WBC (Bld) [#/Vol] 7.5 10*3/uL Normal 3.8-11.6 The [facility] Comment on above: Performed By: #### F E and TIBC, EMMY #### [address] Comprehensive Metabolic Pane alvarado 07-29-2024 Albumin [Mass/Vol] 3.6 g/dL Normal 3.5-5.7 [facility] Comment on above: Performed By: #### F E and TIBC, EMMY #### [address] Albumin/Globulin [Mass ratio] 1.6 {ratio} Normal [facility] Comment on above: Performed By: #### F E and TIBC, EMMY #### [address] ALP [Catalytic activity/Vol] 64 U/L Normal 34-104 [facility] Comment on above: Performed By: #### F E and TIBC, EMMY #### [address] ALT [Catalytic activity/Vol] 8 U/L Normal 7-52 [facility] Comment on above: Performed By: #### F E and TIBC, EMMY #### [facility] [address] Anion gap [Moles/Vol] 8.6 mmol/L Normal 6.0-15.0 [facility] Comment on above: Performed By: #### F E and TIBC, EMMY #### [facility] [address] AST [Catalytic activity/Vol] 20 U/L Normal 13-39 [facility] Comment on above: Performed By: #### F E and TIBC, EMMY #### [address] Bilirubin [Mass/Vol] 0.7 mg/dL Normal 0.3-1.0 [facility] Comment on above: Performed By: #### F E and TIBC, EMMY #### [address] Calcium [Mass/Vol] 9.0 mg/dL Normal 8.6-10.3 [facility] Comment on above: Performed By: #### F E and TIBC, EMMY #### [address] Chloride [Moles/Vol] 107 mmol/L Normal 98-107 [facility] Comment on above: Performed By: #### F E and TIBC, EMMY #### [place] [address] [place] CO2 [Moles/Vol] 29.2 mmol/L Normal 21.0-31.0 The [facility] Comment on above: Performed By: #### F E and TIBC, EMMY #### [place] [address] [place] Creatinine [Mass/Vol] 1.22 mg/dL High 0.60-1.20 [facility] Comment on above: Performed By: #### F E and TIBC, EMMY #### [place] [address] [place] Creatinine Clr Calc Pharmacy 37.33 Normal [facility] Comment on above: Performed By: #### F E and TIBC, EMMY #### [facility] [address] Estimated GFR 44.032 mL/Min Normal [facility] Comment on above: Performed By: #### F E and TIBC, EMMY #### [facility] [address] Globulin (S) [Mass/Vol] 2.3 g/dL Normal [facility] Comment on above: Performed By: #### F E and TIBC, EMMY #### [address] Glucose [Mass/Vol] 111 mg/dL High 70-100 The [facility] Comment on above: Result Comment: [place] Glucose Reference Range is dependent on time and content of last meal. Glucose of more than 200 mg/dL in a nonstressed, ambulatory subject supports the diagnosis of Diabetes Mellitus. ADA recommended reference range Performed By: #### F E and TIBC, EMMY #### [address] Potassium [Moles/Vol] 3.8 mmol/L Normal 3.5-5.1 [facility] Comment on above: Performed By: #### F E and TIBC, EMMY #### [address] Protein [Mass/Vol] 5.9 g/dL Low 6.4-8.9 [facility] Comment on above: Performed By: #### F E and TIBC, EMMY #### [address] Sodium [Moles/Vol] 141 mmol/L Normal 136-145 [facility] Comment on above: Performed By: #### F E and TIBC, EMMY #### [address] Urea nitrogen [Mass/Vol] 26 mg/dL High 7-25 [facility] Comment on above: Performed By: #### F E and TIBC, EMMY #### [facility] [address] [place] [id number] [facility] Eosinophils Auto (Bld) [#/Vo l]Ordered By: Tuan Farrell on 07-29-2024 Eosinophils (Bld) [#/Vol] Automated eosinophil count 0.0-0.45 [facility] Eosinophils/100 WBC Auto (Bl d)Ordered By: Tuan Farrell on 07-29-2024 Eosinophils/100 WBC (Bld) Automated eosinophil % . [facility] Erythrocyte distribution wid th Auto (RBC) [Ratio]Ordered By: Tuan Farrell on 07-29-2024 Erythrocyte distribution width (RBC) [Ratio] Erythrocyte distribution width [Ratio] by Automated count High 11.9-15.3 [facility] Globulin Calc (S) [Mass/Vol] Ordered By: Tuan Farrell on 07-29-2024 Globulin (S) [Mass/Vol] Serum globulin measurement by calculation (mass/volume) [facility] Hematocrit Auto (Bld) [Volum e fraction]Ordered By: Tuan Farrell on 07-29-2024 Hematocrit (Bld) [Volume fraction] Hematocrit [Volume Fraction] of Blood by Automated count Low 34.0-46.4 [facility] Hemoglobin [Mass/volume] in BloodOrdered By: Tuan Farrell on 07-29-2024 Hemoglobin (Bld) [Mass/Vol] Hemoglobin [Mass/volume] in Blood Low 11.8-15.4 [facility] Leukocytes [#/volume] correc sol for nucleated erythrocytes in Blood by Automated counOrdered By: Tuan Farrell on 07-29-2024 WBC corrected for nucl RBC Auto (Bld) [#/Vol] Leukocytes [#/volume] corrected for nucleated erythrocytes in Blood by Automated coun 3.8-11.6 [facility] Lymphocytes Auto (Bld) [#/Vo l]Ordered By: Tuan Farrell on 07-29-2024 Lymphocytes (Bld) [#/Vol] Lymphocytes [#/volume] in Blood by Automated count 1.00-4.8 [facility] Lymphocytes/100 WBC Auto (Bl d)Ordered By: uTan Farrell on 07-29-2024 Lymphocytes/100 WBC (Bld) Lymphocytes/100 leukocytes in Blood by Automated count . [facility] MCH Auto (RBC) [Entitic mass ]Ordered By: Tuan Farrell on 07-29-2024 MCH (RBC) [Entitic mass] MCH [Entitic mass] by Automated count 24.7-34.3 [facility] MCHC Auto (RBC) [Mass/Vol]Or dered By: Tuan Farrell on 07-29-2024 MCHC (RBC) [Mass/Vol] MCHC [Mass/volume] by Automated count 32.0-35.0 [facility] MCV Auto (RBC) [Entitic vol] Ordered By: Tuan Farrell on 07-29-2024 MCV (RBC) [Entitic vol] MCV [Entitic volume] by Automated count 80-100 [facility] Monocytes Auto (Bld) [#/Vol] Ordered By: Tuan Farrell on 07-29-2024 Monocytes (Bld) [#/Vol] Automated blood monocyte count High 0.0-0.8 [facility] Monocytes/100 WBC Auto (Bld) Ordered By: Tuan Farrell on 07-29-2024 Monocytes/100 WBC (Bld) Automated monocyte % . [facility] Neutrophils Auto (Bld) [#/Vo l]Ordered By: Tuan Farrell on 07-29-2024 Neutrophils (Bld) [#/Vol] Neutrophils [#/volume] in Blood by Automated count 1.8-7.7 [facility] Neutrophils/100 WBC Auto (Bl d)Ordered By: Tuan Farrell on 07-29-2024 Neutrophils/100 WBC (Bld) Automated neutrophil % . [facility] Nucleated erythrocytes [Pres ence] in Blood by Automated countOrdered By: Tuan Farrell on 07-29-2024 Nucleated RBC Auto Ql (Bld) Nucleated erythrocytes [Presence] in Blood by Automated count 0-0.5 [facility] Platelet mean volume Auto (B ld) [Entitic vol]Ordered By: Tuan Farrell on 07-29-2024 Platelet mean volume (Bld) [Entitic vol] Platelet mean volume [Entitic volume] in Blood by Automated count 6.3-10.7 [facility] Platelets Auto (Bld) [#/Vol] Ordered By: Tuan Farrell on 07-29-2024 Platelets (Bld) [#/Vol] Platelets [#/volume] in Blood by Automated count Low 150-450 [facility] Prealbuminon 07-29-2024 Prealbumin [Mass/Vol] 18.3 mg/dL Normal 17.0-34.0 [facility] Comment on above: Result Comment: PERF ORMED BY: [place] [address] PATHOLOGIST TISSUE COORDINATOR COLIN MORGAN M.D. Performed By: #### F E and TIBC, EMMY #### [facility] [address] [place] [address] Prealbumin [Mass/volume] in Serum or PlasmaOrdered By: Tuan Farrell on 07-29-2024 Prealbumin [Mass/Vol] Prealbumin [Mass/v olume] in Serum or Plasma 17.0-34.0 [facility] Protein [Mass/volume] in Ser um or PlasmaOrdered By: Tuan Farrell on 07-29-2024 Protein [Mass/Vol] Protein [Mass/volume ] in Serum or Plasma Low 6.4-8.9 [facility] RBC Auto (Bld) [#/Vol]Ordere d By: Tuan Farrell on 07-29-2024 RBC (Bld) [#/Vol] Erythrocytes [#/volu me] in Blood by Automated count Low 3.60-5.00 [facility] Serum or plasma albumin/glob ulin mass ratioOrdered By: Tuan Farrell on 07-29-2024 Albumin/Globulin [Mass ratio] Serum or plasma albumin/globulin mass ratio [facility] WBC Auto (Bld) [#/Vol]Ordere d By: Tuan Farrell on 07-29-2024 WBC (Bld) [#/Vol] Leukocytes [#/volume ] in Blood by Automated count 3.8-11.6 [facility] Basic Metabolic Panelon 07-02 Anion gap [Moles/Vol] 11.1 mmol/L Normal 6.0-15.0 [facility] e [facility] Comment on above: Performed By: #### C BC #### [facility] [address] [place] [address] [place] #### FRUC #### [facility] , Calcium [Mass/Vol] 8.9 mg/dL Normal 8.6-10.3 [facility] Comment on above: Performed By: #### C BC #### [place] [address] [place] #### FRUC #### [facility] , Chloride [Moles/Vol] 105 mmol/L Normal 98-107 [facility] Comment on above: Performed By: #### C BC #### [place] [address] [place] #### FRUC #### [facility] , CO2 [Moles/Vol] 26.8 mmol/L Normal 21.0-31.0 [facility] Comment on above: Performed By: #### C BC #### [address] #### FRUC #### [facility] , Creatinine [Mass/Vol] 1.37 mg/dL High 0.60-1.20 [facility] Comment on above: Performed By: #### C BC #### [address] #### FRUC #### [facility] , Creatinine Clr Calc Pharmacy 32.71 Normal [facility] Comment on above: Result Comment: PERF ORMED BY: [place] [address] PATHOLOGIST TISSUE COORDINATOR COLIN MORGAN M.D. Performed By: #### C BC #### [place] [address] [place] #### FRUC #### [facility] , Estimated GFR 38.312 mL/Min Normal [facility] Comment on above: Performed By: #### C BC #### [place] [address] [place] #### FRUC #### [facility] , Glucose [Mass/Vol] 122 mg/dL High 70-100 [facility] Comment on above: Result Comment: [facility] Glucose Reference Range is dependent on time and content of last meal. Glucose of more than 200 mg/dL in a nonstressed, ambulatory subject supports the diagnosis of Diabetes Mellitus. ADA recommended reference range Performed By: #### C BC #### [place] [address] [place] #### FRUC #### [facility] , Potassium [Moles/Vol] 3.9 mmol/L Normal 3.5-5.1 [facility] Comment on above: Performed By: #### C BC #### [place] [address] [place] #### FRUC #### [facility] , Sodium [Moles/Vol] 139 mmol/L Normal 136-145 [facility] Comment on above: Performed By: #### C BC #### [place] [address] [place] #### FRUC #### [facility] , Urea nitrogen [Mass/Vol] 26 mg/dL High 7-25 [facility] Comment on above: Performed By: #### C BC #### [place] [address] [place] #### FRUC #### [facility] , Basophils Auto (Bld) [#/Vol] Ordered By: Sridevi Tovar on 07-28-2024 Basophils (Bld) [#/Vol] Automated basophil count 0.0-0.2 [facility] Basophils/100 WBC Auto (Bld) Ordered By: Sridevi Tovar on 07-28-2024 Basophils/100 WBC (Bld) Automated basophil % . [facility] Calcium [Mass/volume] in Ser um or PlasmaOrdered By: Sridevi Tovar on 07-28-2024 Calcium [Mass/Vol] Calcium [Mass/volume ] in Serum or Plasma 8.6-10.3 [facility] Carbon dioxide, total [Moles /volume] in Serum or PlasmaOrdered By: Sridevi Tovar on 07-28-2024 CO2 [Moles/Vol] Carbon dioxide, tota l [Moles/volume] in Serum or Plasma 21.0-31.0 [facility] Chloride [Moles/volume] in S manjula or PlasmaOrdered By: Sridevi Tovar on 07-28-2024 Chloride [Moles/Vol] Chloride [Moles/vol ume] in Serum or Plasma 98-107 [facility] Complete Blood Count Auto Di ffon 07-28-2024 Basophils (Bld) [#/Vol] 0.0 10*3/uL Normal 0.0-0.2 [facility] Comment on above: Result Comment: PERF ORMED BY: [place] [address] PATHOLOGIST TISSUE COORDINATOR COLIN MORGAN M.D. Performed By: #### C BC #### [address] #### FRUC #### [facility] , Basophils/100 WBC (Bld) 0.2 % Normal . [facility] Comment on above: Performed By: #### C BC #### [address] #### FRUC #### [facility] , Eosinophils (Bld) [#/Vol] 0.0 10*3/uL Normal 0.0-0.45 [facility] Comment on above: Performed By: #### C BC #### [place] [address] [place] #### FRUC #### [facility] , Eosinophils/100 WBC (Bld) 0.0 % Normal . [facility] Comment on above: Performed By: #### C BC #### [place] [address] [place] #### FRUC #### [facility] , Erythrocyte distribution width (RBC) [Ratio] 17.6 % High 11.9-15.3 [facility] Comment on above: Performed By: #### C BC #### [place] [address] [place] #### FRUC #### [facility] , Hematocrit (Bld) [Volume fraction] 27.3 % Low 34.0-46.4 [facility] Comment on above: Performed By: #### C BC #### [place] [address] [place] #### FRUC #### [facility] , Hemoglobin (Bld) [Mass/Vol] 9.4 g/dL Low 11.8-15.4 [facility] Comment on above: Performed By: #### C BC #### [address] #### FRUC #### [facility] , Lymphocytes (Bld) [#/Vol] 1.3 10*3/uL Normal 1.00-4.8 [facility] Comment on above: Performed By: #### C BC #### [place] [address] [place] #### FRUC #### [facility] , Lymphocytes/100 WBC (Bld) 16.3 % Normal . [facility] Comment on above: Performed By: #### C BC #### [place] [address] [place] #### FRUC #### [facility] , MCH (RBC) [Entitic mass] 28.4 pg Normal 24.7-34.3 [facility] Comment on above: Performed By: #### C BC #### [place] [address] [place] #### FRUC #### [facility] , MCV (RBC) [Entitic vol] 83.0 fL Normal 80-100 [facility] Comment on above: Performed By: #### C BC #### [place] [address] [place] #### FRUC #### [facility] , Mean Corpuscular HGB Conc 34.2 g/dL Normal 32.0-35.0 [facility] Comment on above: Performed By: #### C BC #### [place] [address] [place] #### FRUC #### [facility] , Monocytes (Bld) [#/Vol] 0.7 10*3/uL Normal 0.0-0.8 [facility] Comment on above: Performed By: #### C BC #### [place] [address] [place] #### FRUC #### [facility] , Monocytes/100 WBC (Bld) 9.3 % Normal . [facility] Comment on above: Performed By: #### C BC #### [place] [address] [place] #### FRUC #### [facility] , Neutrophils (Bld) [#/Vol] 5.7 10*3/uL Normal 1.8-7.7 [facility] Comment on above: Performed By: #### C BC #### [place] [address] [place] #### FRUC #### [facility] , Neutrophils/100 WBC (Bld) 74.2 % Normal . [facility] Comment on above: Performed By: #### C BC #### [place] [address] [place] #### FRUC #### [facility] , NRBC% 0.0 /100{WBC} Normal 0-0.5 [facility] Comment on above: Performed By: #### C BC #### [address] #### FRUC #### [facility] , Platelet mean volume (Bld) [Entitic vol] 7.9 fL Normal 6.3-10.7 [facility] Comment on above: Performed By: #### C BC #### [facility] [address] [place] [address] [place] #### FRUC #### [facility] , Platelets (Bld) [#/Vol] 156 10*3/uL Normal 150-450 [facility] Comment on above: Performed By: #### C BC #### [facility] [address] [place] [address] [place] #### FRUC #### [facility] , RBC (Bld) [#/Vol] 3.29 10*6/uL Low 3.60-5.00 [facility] Comment on above: Performed By: #### C BC #### [facility] [address] [place] [address] [place] #### FRUC #### [facility] , WBC (Bld) [#/Vol] 7.7 10*3/uL Normal 3.8-11.6 [facility] Comment on above: Performed By: #### C BC #### [place] [address] [place] #### FRUC #### [facility] , Creatinine [Mass/volume] in Serum or PlasmaOrdered By: Sridevi Tovar on 07-28-2024 Creatinine [Mass/Vol] Creatinine [Mass/v olume] in Serum or Plasma High 0.60-1.20 [facility] Eosinophils Auto (Bld) [#/Vo l]Ordered By: Sridevi Tovar on 07-28-2024 Eosinophils (Bld) [#/Vol] Automated eosinophil count 0.0-0.45 [facility] Eosinophils/100 WBC Auto (Bl d)Ordered By: Sridevi Tovar on 07-28-2024 Eosinophils/100 WBC (Bld) Automated eosinophil % . [facility] Erythrocyte distribution wid th Auto (RBC) [Ratio]Ordered By: Sridevi Tovar on 07-28-2024 Erythrocyte distribution width (RBC) [Ratio] Erythrocyte distribution width [Ratio] by Automated count High 11.9-15.3 [facility] Glucose [Mass/volume] in Ser um or PlasmaOrdered By: Sridevi Tovar on 07-28-2024 Glucose [Mass/Vol] Glucose [Mass/volume ] in Serum or Plasma High 70-100 [facility] Comment on above: ADA recommended refe rence rangeRandom Glucose Reference Range is dependent on time and content of last meal. Glucose of more than 200 mg/dL in a nonstressed, ambulatory subject supports the diagnosis of Diabetes Mellitus. Hematocrit Auto (Bld) [Volum e fraction]Ordered By: Sridevi Tovar on 07-28-2024 Hematocrit (Bld) [Volume fraction] Hematocrit [Volume Fraction] of Blood by Automated count Low 34.0-46.4 [facility] Hemoglobin [Mass/volume] in BloodOrdered By: Sridevi Tovar on 07-28-2024 Hemoglobin (Bld) [Mass/Vol] Hemoglobin [Mass/volume] in Blood Low 11.8-15.4 [facility] Leukocytes [#/volume] correc sol for nucleated erythrocytes in Blood by Automated counOrdered By: Sridevi Tovar on 07-28-2024 WBC corrected for nucl RBC Auto (Bld) [#/Vol] Leukocytes [#/volume] corrected for nucleated erythrocytes in Blood by Automated coun 3.8-11.6 [facility] Lymphocytes Auto (Bld) [#/Vo l]Ordered By: Sridevi Tovar on 07-28-2024 Lymphocytes (Bld) [#/Vol] Lymphocytes [#/volume] in Blood by Automated count 1.00-4.8 [facility] Lymphocytes/100 WBC Auto (Bl d)Ordered By: Sridevi Tovar on 07-28-2024 Lymphocytes/100 WBC (Bld) Lymphocytes/100 leukocytes in Blood by Automated count . [facility] MCH Auto (RBC) [Entitic mass ]Ordered By: Sridevi Tovar on 07-28-2024 MCH (RBC) [Entitic mass] MCH [Entitic mass] by Automated count 24.7-34.3 [facility] MCHC Auto (RBC) [Mass/Vol]Or dered By: Sridevi Tovar on 07-28-2024 MCHC (RBC) [Mass/Vol] MCHC [Mass/volume] by Automated count 32.0-35.0 [facility] MCV Auto (RBC) [Entitic vol] Ordered By: Sridevi Tovar on 07-28-2024 MCV (RBC) [Entitic vol] MCV [Entitic volume] by Automated count 80-100 [facility] Monocytes Auto (Bld) [#/Vol] Ordered By: Sridevi Tovar on 07-28-2024 Monocytes (Bld) [#/Vol] Automated blood monocyte count 0.0-0.8 [facility] Monocytes/100 WBC Auto (Bld) Ordered By: Sridevi Tovar on 07-28-2024 Monocytes/100 WBC (Bld) Automated monocyte % . [facility] Neutrophils Auto (Bld) [#/Vo l]Ordered By: Sridevi Tovar on 07-28-2024 Neutrophils (Bld) [#/Vol] Neutrophils [#/volume] in Blood by Automated count 1.8-7.7 [facility] Neutrophils/100 WBC Auto (Bl d)Ordered By: Sridevi Tovar on 07-28-2024 Neutrophils/100 WBC (Bld) Automated neutrophil % . [facility] No Panel InformationOrdered By: Sridevi Tovar on 07-28-2024 Estimated GFR (CKD-EPI) 38.312 mL/Min [facility] Creatinine Clearance (Chem 32.71 [facility] Nucleated erythrocytes [Pres ence] in Blood by Automated countOrdered By: Sridevi Tovar on 07-28-2024 Nucleated RBC Auto Ql (Bld) Nucleated erythrocytes [Presence] in Blood by Automated count 0-0.5 [facility] Platelet mean volume Auto (B ld) [Entitic vol]Ordered By: Sridevi Tovar on 07-28-2024 Platelet mean volume (Bld) [Entitic vol] Platelet mean volume [Entitic volume] in Blood by Automated count 6.3-10.7 [facility] Platelets Auto (Bld) [#/Vol] Ordered By: Sridevi Tovar on 07-28-2024 Platelets (Bld) [#/Vol] Platelets [#/volume] in Blood by Automated count 150-450 [facility] Potassium [Moles/volume] in Serum or PlasmaOrdered By: Sridevi Tovar on 07-28-2024 Potassium [Moles/Vol] Potassium [Moles/v olume] in Serum or Plasma 3.5-5.1 [facility] RBC Auto (Bld) [#/Vol]Ordere d By: Sridevi Tovar on 07-28-2024 RBC (Bld) [#/Vol] Erythrocytes [#/volu me] in Blood by Automated count Low 3.60-5.00 [facility] Serum or plasma anion gap de terminationOrdered By: Sridevi Tovar on 07-28-2024 Anion gap [Moles/Vol] Serum or plasma an ion gap determination 6.0-15.0 [facility] Sodium [Moles/volume] in Ser um or PlasmaOrdered By: Sridevi Tovar on 07-28-2024 Sodium [Moles/Vol] Sodium [Moles/volume ] in Serum or Plasma 136-145 [facility] Urea nitrogen [Mass/volume] in Serum or PlasmaOrdered By: Sridevi Tovar on 07-28-2024 Urea nitrogen [Mass/Vol] Urea nitrogen [Mass/volume] in Serum or Plasma High 7-25 [facility] WBC Auto (Bld) [#/Vol]Ordere d By: Sridevi Tovar on 07-28-2024 WBC (Bld) [#/Vol] Leukocytes [#/volume ] in Blood by Automated count 3.8-11.6 [facility] Alvarado 07-27-2024 L ----- Specimen: [id number] Received: 07/27/24 Status: MAGNUS Berrios Num: [id number] Spec Type: Surgical Subm Dr: Sridevi Tovar MD Tissues: A Joint/Knee (L KNEE) Procedures: HE, Gross/Micro L4, Decalcification Age/ Patient Sex Location Account Attending Physician Jemima Bradford 84/F DC [id number] Sridevi Tovar MD SPEC NUM: [id number] RECD: 07/27/24 STATUS: MAGNUS ELSA NUM: [id number] LORETTA: 07/27/24- [facility] DR: Sridevi Tovar MD ENTERED: 07/27/[address] [facility] [address]: SPEC TYPE: Surgical DEPT: S ENTERED BY: [id number] RECV BY: [id number] ORDERED: ELISE, Gross/Micro L4, Decalcification ORDERED: HE, Gross/Micro L4, Decalcification Pathological Diagnosis Bone and tissue, left knee, arthroplasty: Degenerative changes consistent with osteoarthritis. Clinical Information L knee pain and osteoarthritis Gross Description Part A is received in formalin labeled with the patients name, date of , and bone and tissue L knee are velasco-davila, granular bone fragments, 7 x 5.5 x 3.5 cm in aggregate with detached fragments of fibrofatty tissue, 6 x 3.5 x 1.5 cm in aggregate. The bone is consistent with portions of femoral condyle and tibial plateau. The articular surfaces are remarkable for granular degeneration and eburnation. The medullary bone is davila, firm and uniform. The fibrofatty tissue is sectioned to reveal velasco-pink to yellow-davila, glistening, and uniform cut surfaces. Veterinary Anatomist sections of the bone are submitted in a single cassette after decalcification. (1, , [id number] A) CPT Codes 23340 Specimen: [id number] Received: 07/27/24 Status: MAGNUS Berrios Num: [id number] Spec Type: Surgical Subm Dr: Sridvei Tovar MD Tissues: A Joint/Knee (L KNEE) Procedures: ELISE, Gross/Micro L4, Decalcification Patient: Jemima Bradford [id number] (Continued) Signed (signature on file) Colin Morgan MD 07/30/24 1517 Normal [facility] X-ray reportOrdered By: David Stubbs on 07-27-2024 [place] [address] XRay Report Signed Patient: Jemima Bradford MR#: [id number] : 1940 Acct:[id number] Age/Sex: 84 / F ADM Date: 5 Loc: [place] Room: Type: [facility] Attending Dr: Sridevi Tovar II, MD Copies to: Sridevi Tovar MD~ Ordering Provider: Sridevi Tovar MD Date of Service: 07/27/24 XR/XR knee LT 2V: Total or partial knee, do in PACU LEFT KNEE - 2 views CLINICAL HISTORY: Postop left TKA COMPARISON: None FINDINGS: Soft tissues demonstrate postoperative changes. No hardware complication. XR/XR knee LT 2V IMPRESSION: NO HARDWARE COMPLICATION. Impression dictated by: Tuan Stubbs Jr., D.OYasmin07/27/2024 2:24 PM Dictation Location: [place] [address] Transcribed By: [facility] 07/27/24 142 Dictated By: Tuan Stubbs Jr, DO 07/27/24 1420 Signed By: 07/27/24 1424 [facility] XR knee LT 2Von 07-27-2024 XR knee LT 2V [address] [address] XRay Report Signed Patient: Jemima Bradford MR#: [id number] 632 : 1940 Acct:[id number] Age/Sex: 84 / F ADM Date: 07/27/24 Loc: [place] Room: Type: [facility] Attending Dr: Sridevi Tovar II, MD Copies to: Sridevi Tovar MD Ordering Provider: Sridevi Tovar MD Date of Service: 07/27/24 XR/XR knee LT 2V: Total or partial knee, do in PACU LEFT KNEE - 2 views CLINICAL HISTORY: Postop left TKA COMPARISON: None FINDINGS: Soft tissues demonstrate postoperative changes. No hardware complication. XR/XR knee LT 2V IMPRESSION: NO HARDWARE COMPLICATION. Impression dictated by: Tuan Stubbs Jr., D.O.07/27/2024 2:24 PM Dictation Location: [place] [address] Transcribed By: [facility] 07/27/24 1424 Dictated By: Tuan Stubbs Jr, DO 07/27/24 1420 Signed By: 07/27/24 1424 Normal [facility] X-ray reportOrdered By: Denzel Osullivan on 07-16-2024 Study report [facility] [address] [place] [address] XRay Report Signed Patient: Jemima Bradford MR#: [id number] : 1940 Acct:[id number] Age/Sex: 84 / F ADM Date: 5 Loc: [facility] Room: Type: [facility] Attending Dr: Sridevi Tovar II, MD Copies to: Sridevi Tovar MD~ Ordering Provider: Sridevi Tovar MD Date of Service: 07/16/24 XR/XR femur LT 2V*: M17.12 - Unilateral primary osteoarthritis, left knee ([id number]) XR/XR tibia fibula LT 2V*: M17.12 - Unilateral primary osteoarthritis, left knee Plain film imaging of left femur and tibia and fibula HISTORY: Preop assessment for left total knee arthroplasty Right knee arthroplasty present. Valgus deformity of the left knee. Extensive lateral degeneration of the left knee. Mild hip degeneration. Intact femur. Intact tibia and fibula. Ankle fixation hardware. XR/XR femur LT 2V* IMPRESSION: Left knee valgus deformity. Extensive lateral degeneration. Impression dictated by: Kenan Osullivan M.D.07/16/2024 3:22 PM Dictation [facility] Transcribed By: MERRITT 07/16/24 152 Dictated By: Kenan Osullivan DO 07/16/24 152 Signed By: 07/16/24 1522 [facility] XR tibia fibula LT 2V*on XR tibia fibula LT 2V* [facility] [address] [place] [address] XRay Report Signed Patient: Jemima Bradford MR#: [id number] 632 : 1940 Acct:[id number] Age/Sex: 84 / F ADM Date: 07/16/24 Loc: [facility] Room: Type: [facility] Attending Dr: Sridevi Tovar II, MD Copies to: Sridevi Tovar MD Ordering Provider: Sridevi Tovar MD Date of Service: 07/16/24 XR/XR femur LT 2V*: M17.12 - Unilateral primary osteoarthritis, left knee ([id number]) XR/XR tibia fibula LT 2V*: M17.12 - Unilateral primary osteoarthritis, left knee Plain film imaging of left femur and tibia and fibula HISTORY: Preop assessment for left total knee arthroplasty Right knee arthroplasty present. Valgus deformity of the left knee. Extensive lateral degeneration of the left knee. Mild hip degeneration. Intact femur. Intact tibia and fibula. Ankle fixation hardware. XR/XR femur LT 2V* IMPRESSION: Left knee valgus deformity. Extensive lateral degeneration. Impression dictated by: Kenan Osullivan M.D.07/16/2024 3:22 PM Dictation [facility] Transcribed By: MERRITT 07/16/24 152 Dictated By: Kenan Osullivan DO 07/16/24 152 Signed By: 07/16/24 152 Normal [facility] Appearance of UrineOrdered B y: Sridevi Tovar on 07-13-2024 Appearance (U) Urine appearance Clear [facility] Bacteria [Presence] in Urine by AutomatedOrdered By: Sridevi Tovar on 07-13-2024 Bacteria Auto Ql (U) Bacteria [Presence] in Urine by Automated None Seen [facility] Basophils Auto (Bld) [#/Vol] Ordered By: Sridevi Tovar on 07-13-2024 Basophils (Bld) [#/Vol] Automated basophil count 0.0-0.2 [facility] Basophils/100 WBC Auto (Bld) Ordered By: Sridevi Tovar on 07-13-2024 Basophils/100 WBC (Bld) Automated basophil % . [facility] Bilirubin Test strip Ql (U)O rdered By: Sridevi Tovar on 07-13-2024 Bilirubin Ql (U) Bilirubin.total [Presence] in Urine by Test strip Negative [facility] Color Auto (U)Ordered By: Dorota Tvoar on 07-13-2024 Color (U) Color of Urine by Auto Yellow Fi [facility] Complete Blood Count Auto Di ffon 07-13-2024 Basophils (Bld) [#/Vol] 0.1 10*3/uL Normal 0.0-0.2 [facility] Comment on above: Result Comment: PERF ORMED BY: [place] [address] PATHOLOGIST TISSUE COORDINATOR COLIN MORGAN M.D. Performed By: #### C BC #### [address] #### FRUC #### [facility] , Basophils/100 WBC (Bld) 0.9 % Normal . [facility] Comment on above: Performed By: #### C BC #### [place] [address] [place] #### FRUC #### [facility] , Eosinophils (Bld) [#/Vol] 0.1 10*3/uL Normal 0.0-0.45 [facility] Comment on above: Performed By: #### C BC #### [place] [address] [place] #### FRUC #### [facility] , Eosinophils/100 WBC (Bld) 1.9 % Normal . [facility] Comment on above: Performed By: #### C BC #### [place] [address] [place] #### FRUC #### [facility] , Erythrocyte distribution width (RBC) [Ratio] 17.2 % High 11.9-15.3 [facility] Comment on above: Performed By: #### C BC #### [place] [address] [place] #### FRUC #### [facility] , Hematocrit (Bld) [Volume fraction] 34.4 % Normal 34.0-46.4 [facility] Comment on above: Performed By: #### C BC #### [place] [address] [place] #### FRUC #### [facility] , Hemoglobin (Bld) [Mass/Vol] 11.7 g/dL Low 11.8-15.4 [facility] Comment on above: Performed By: #### C BC #### [place] [address] [place] #### FRUC #### [facility] , Lymphocytes (Bld) [#/Vol] 1.5 10*3/uL Normal 1.00-4.8 [facility] Comment on above: Performed By: #### C BC #### [place] [address] [place] #### FRUC #### [facility] , Lymphocytes/100 WBC (Bld) 22.8 % Normal . [facility] Comment on above: Performed By: #### C BC #### [place] [address] [place] #### FRUC #### [facility] , MCH (RBC) [Entitic mass] 28.1 pg Normal 24.7-34.3 [facility] Comment on above: Performed By: #### C BC #### [place] [address] [place] #### FRUC #### [facility] , MCV (RBC) [Entitic vol] 82.8 fL Normal 80-100 [facility] Comment on above: Performed By: #### C BC #### [place] [address] [place] #### FRUC #### [facility] , Mean Corpuscular HGB Conc 34.0 g/dL Normal 32.0-35.0 [facility] Comment on above: Performed By: #### C BC #### [place] [address] [place] #### FRUC #### [facility] , Monocytes (Bld) [#/Vol] 0.6 10*3/uL Normal 0.0-0.8 [facility] Comment on above: Performed By: #### C BC #### [place] [address] [place] #### FRUC #### [facility] , Monocytes/100 WBC (Bld) 9.1 % Normal . [facility] Comment on above: Performed By: #### C BC #### [place] [address] [place] #### FRUC #### [facility] , Neutrophils (Bld) [#/Vol] 4.2 10*3/uL Normal 1.8-7.7 [facility] Comment on above: Performed By: #### C BC #### [place] [address] [place] #### FRUC #### [facility] , Neutrophils/100 WBC (Bld) 65.3 % Normal . [facility] Comment on above: Performed By: #### C BC #### [address] #### FRUC #### [facility] , NRBC% 0.1 /100{WBC} Normal 0-0.5 [facility] Comment on above: Performed By: #### C BC #### [address] #### FRUC #### [facility] , Platelet mean volume (Bld) [Entitic vol] 8.5 fL Normal 6.3-10.7 [facility] Comment on above: Performed By: #### C BC #### [address] #### FRUC #### [facility] , Platelets (Bld) [#/Vol] 180 10*3/uL Normal 150-450 [facility] Comment on above: Performed By: #### C BC #### [address] #### FRUC #### [facility] , RBC (Bld) [#/Vol] 4.16 10*6/uL Normal 3.60-5.00 [facility] Comment on above: Performed By: #### C BC #### [address] #### FRUC #### [facility] , WBC (Bld) [#/Vol] 6.4 10*3/uL Normal 3.8-11.6 [facility] Comment on above: Performed By: #### C BC #### [place] [address] [place] #### FRUC #### [facility] , Dipstick and Microscopicon 0 07-13-2024 Appearance (U) Clear Normal Clear The [facility] Comment on above: Order Comment: Name Collection Type:: Clean-Voided Midstream Performed By: #### A DDONUAPLUS, CUU #### [address] Bacteria,Urine None Seen Normal None Seen [facility] Comment on above: Order Comment: Name Collection Type:: Clean-Voided Midstream Performed By: #### A DDONUAPLUS, CUU #### [address] Bilirubin,Urine Negative Normal Negative [facility] Comment on above: Order Comment: Name Collection Type:: Clean-Voided Midstream Performed By: #### A DDONUAPLUS, CUU #### [address] Color (U) Colorless Normal Yellow [facility] Comment on above: Order Comment: Name Collection Type:: Clean-Voided Midstream Performed By: #### A DDONUAPLUS, CUU #### [address] Glucose Ql (U) Normal Normal Normal [facility] Comment on above: Order Comment: Name Collection Type:: Clean-Voided Midstream Performed By: #### A DDONUAPLUS, CUU #### [place] [address] [place] Hyaline Casts,Urine 9 [LPF] High 0-8 [facility] Comment on above: Order Comment: Name Collection Type:: Clean-Voided Midstream Performed By: #### A DDONUAPLUS, CUU #### [address] Ketones Ql (U) Negative Normal Negative [facility] Comment on above: Order Comment: Name Collection Type:: Clean-Voided Midstream Performed By: #### A DDONUAPLUS, CUU #### [address] Leukocyte esterase Test strip Ql (U) 3+ High Negative [facility] Comment on above: Order Comment: Name Collection Type:: Clean-Voided Midstream Performed By: #### A DDONUAPLUS, CUU #### [place] [address] [place] Mucus,Urine Rare Normal [facility] Comment on above: Order Comment: Name Collection Type:: Clean-Voided Midstream Result Comment: PERF ORMED BY: [place] [address] PATHOLOGIST TISSUE COORDINATOR COLIN MORGAN M.D. Performed By: #### A DDONUAPLUS, CUU #### [place] [address] [place] Nitrite,Urine Negative Normal Negative [facility] Comment on above: Order Comment: Name Collection Type:: Clean-Voided Midstream Performed By: #### A DDONUAPLUS, CUU #### [address] Occult Blood,Urine Negative Normal Negative [facility] Comment on above: Order Comment: Name Collection Type:: Clean-Voided Midstream Result Comment: PERF ORMED BY: [place] [address] PATHOLOGIST TISSUE COORDINATOR COLIN MORGAN M.D. Performed By: #### A DDONUAPLUS, CUU #### [place] [address] [place] pH (U) 7.0 [pH] Normal 5.0-9.0 [facility] Comment on above: Order Comment: Name Collection Type:: Clean-Voided Midstream Performed By: #### A DDONUAPLUS, CUU #### [place] [address] [place] Protein,Urine Negative Normal Negative The [facility] Comment on above: Order Comment: Name Collection Type:: Clean-Voided Midstream Performed By: #### A DDONUAPLUS, CUU #### [address] RBC,Urine 1 [HPF] Normal 0-4 [facility] Comment on above: Order Comment: Name Collection Type:: Clean-Voided Midstream Performed By: #### A DDONUAPLUS, CUU #### [facility] [address] Specificy [place],Urine 1.009 Normal 1.001-1.030 [facility] Comment on above: Order Comment: Name Collection Type:: Clean-Voided Midstream Performed By: #### A DDONUAPLUS, CUU #### [address] Squamous Epithelial Cell,Urine 1 [HPF] Normal 0-2 [facility] Comment on above: Order Comment: Name Collection Type:: Clean-Voided Midstream Performed By: #### A DDONUAPLUS, CUU #### [address] Urobilinogen,Urine Normal Normal Normal [facility] Comment on above: Order Comment: Name Collection Type:: Clean-Voided Midstream Performed By: #### A DDONUAPLUS, CUU #### [address] WBC,Urine 5 [HPF] High 0-4 [facility] Comment on above: Order Comment: Name Collection Type:: Clean-Voided Midstream Performed By: #### A DDONUAPLUS, CUU #### [address] ECG 12 lead ECGon 07-13-2024 ECG 12 lead ECG [facility] [place] [address] [place] [address] Electrocardiograph Report Signed Patient: Jemima Bradford MR#: [id number] 632 : 1940 Acct:[id number] Age/Sex: 84 / F ADM Date: 07/13/24 Loc: [place] Room: Type: [facility] Attending Dr: Sridevi Tovar II, MD Ordering Provider: Sridevi Tovar MD Date of Service: 07/13/24 ECG/ECG 12 lead ECG: preop Copies to: Test Reason : Blood Pressure : */* mmHG Vent. Rate : 63 BPM Atrial Rate : 63 BPM P-R Int : 176 ms QRS Dur : 90 ms QT Int : 434 ms P-R-T Axes : 86 35 47 degrees QTcB Int : 444 ms Sinus rhythm with premature atrial complexes Nonspecific ST abnormality Borderline ECG When compared with ECG of 16-Jan-2023 13:30, premature atrial complexes are now present ST abnormality is now noted Confirmed by GENEVIEVE PAPPAS [facility], SANDRA ([id number]) on 07/13/2024 7:34:45 PM Referred By: Electronically Signed By: SANDRA VALLEJO MD [facility] Transcribed By: MUS Signed By Sandra Vallejo MD, [facility] 07/13/24 1934 Normal [facility] Eosinophils Auto (Bld) [#/Vo l]Ordered By: Sridevi Tovar on 07-13-2024 Eosinophils (Bld) [#/Vol] Automated eosinophil count 0.0-0.45 [facility] Eosinophils/100 WBC Auto (Bl d)Ordered By: Sridevi Tovar on 07-13-2024 Eosinophils/100 WBC (Bld) Automated eosinophil % . [facility] Epithelial cells.squamous [# /area] in Urine sediment by Automated countOrdered By: Sridevi Tovar on 07-13-2024 Epithelial cells.squamous Auto (Urine sed) [#/Area] Epithelial cells.squamous [#/area] in Urine sediment by Automated count 0-2 [facility] Erythrocyte distribution wid th Auto (RBC) [Ratio]Ordered By: Sridevi Tovar on 07-13-2024 Erythrocyte distribution width (RBC) [Ratio] Erythrocyte distribution width [Ratio] by Automated count High 11.9-15.3 [facility] Erythrocytes [#/area] in Uri ne sediment by Automated countOrdered By: Sridevi Tovar on 07-13-2024 RBC Auto (Urine sed) [#/Area] Erythrocytes [#/area] in Urine sediment by Automated count 0-4 [facility] Fructosamineon 07-13-2024 Fructosamine 246 umol/L Normal 0-285 [facility] Comment on above: Result Comment: Publ ished reference interval for apparently healthy subjects between age 20 and 60 is 205 - 285 umol/L and in a poorly controlled diabetic population is 228 - 563 umol/L with a mean of 396 umol/L. Performed at: [facility] [address] [id number] [employer] Manager: Alexander Sweet PhD, Phone: [phone] PERFORMED BY: [place] [address] PATHOLOGIST TISSUE COORDINATOR COLIN MORGAN M.D. Performed By: #### C BC #### [place] [address] [place] #### FRUC #### [facility] , Fructosamine [Moles/volume] in Serum or PlasmaOrdered By: Sridevi Tovar on 07-13-2024 Fructosamine [Moles/Vol] Fructosamine [Moles/volume] in Serum or Plasma 0-285 [facility] Comment on above: Published reference interval for apparently healthysubjects between age 20 and 60 is 205 - 285 umol/L and in apoorly controlled diabetic population is 228 - 563 umol/Lwith a mean of 396 umol/L.Performed at: - [facility] [place] [address]Lab Director: Alexander Sweet PhD, Phone: [phone] Glucose [Mass/volume] in Uri ne by Test stripOrdered By: Sridevi Tovar on 07-13-2024 Glucose Test strip (U) [Mass/Vol] Glucose [Mass/volume] in Urine by Test strip Normal [facility] Hematocrit Auto (Bld) [Volum e fraction]Ordered By: Sridevi Tovar on 07-13-2024 Hematocrit (Bld) [Volume fraction] Hematocrit [Volume Fraction] of Blood by Automated count 34.0-46.4 [facility] Hemoglobin Test strip Ql (U) Ordered By: Sridevi Tovar on 07-13-2024 Hemoglobin Ql (U) Hemoglobin [Presence ] in Urine by Test strip Negative [facility] Hemoglobin [Mass/volume] in BloodOrdered By: Sridevi Tovar on 07-13-2024 Hemoglobin (Bld) [Mass/Vol] Hemoglobin [Mass/volume] in Blood Low 11.8-15.4 [facility] Hyaline casts [#/area] in Ur ine sediment by Automated countOrdered By: Sridevi Tovar on 07-13-2024 Hyaline casts Auto (Urine sed) [#/Area] Hyaline casts [#/area] in Urine sediment by Automated count High 0-8 [facility] Ketones Test strip Ql (U)Ord ered By: Sridevi Tovar on 07-13-2024 Ketones Ql (U) Ketones [Presence] i n Urine by Test strip Negative [facility] [facility] Leukocyte esterase [Presence ] in Urine by Test stripOrdered By: Sridevi Tovar on 07-13-2024 Leukocyte esterase Test strip Ql (U) Leukocyte esterase [Presence] in Urine by Test strip High Negative [facility] Leukocytes [#/area] in Urine sediment by Automated countOrdered By: Sridevi Tovar on 07-13-2024 WBC Auto (Urine sed) [#/Area] Leukocytes [#/area] in Urine sediment by Automated count High 0-4 [facility] Leukocytes [#/volume] correc sol for nucleated erythrocytes in Blood by Automated counOrdered By: Sridevi Tovar on 07-13-2024 WBC corrected for nucl RBC Auto (Bld) [#/Vol] Leukocytes [#/volume] corrected for nucleated erythrocytes in Blood by Automated coun 3.8-11.6 [facility] Lymphocytes Auto (Bld) [#/Vo l]Ordered By: Sridevi Tovar on 07-13-2024 Lymphocytes (Bld) [#/Vol] Lymphocytes [#/volume] in Blood by Automated count 1.00-4.8 [facility] Lymphocytes/100 WBC Auto (Bl d)Ordered By: Sridevi Tovar on 07-13-2024 Lymphocytes/100 WBC (Bld) Lymphocytes/100 leukocytes in Blood by Automated count . [facility] MCH Auto (RBC) [Entitic mass ]Ordered By: Sridevi Tovar on 07-13-2024 MCH (RBC) [Entitic mass] MCH [Entitic mass] by Automated count 24.7-34.3 [facility] MCHC Auto (RBC) [Mass/Vol]Or dered By: Sridevi Tovar on 07-13-2024 MCHC (RBC) [Mass/Vol] MCHC [Mass/volume] by Automated count 32.0-35.0 [facility] MCV Auto (RBC) [Entitic vol] Ordered By: Sridevi Tovar on 07-13-2024 MCV (RBC) [Entitic vol] MCV [Entitic volume] by Automated count 80-100 [facility] Monocytes Auto (Bld) [#/Vol] Ordered By: Sridevi Tovar on 07-13-2024 Monocytes (Bld) [#/Vol] Automated blood monocyte count 0.0-0.8 [facility] Monocytes/100 WBC Auto (Bld) Ordered By: Sridevi Tovar on 07-13-2024 Monocytes/100 WBC (Bld) Automated monocyte % . [facility] Mucus [Presence] in Urine by AutomatedOrdered By: Sridevi Tovar on 07-13-2024 Mucus Auto Ql (U) Mucus [Presence] in Urine by Automated [facility] Neutrophils Auto (Bld) [#/Vo l]Ordered By: Sridevi Tovar on 07-13-2024 Neutrophils (Bld) [#/Vol] Neutrophils [#/volume] in Blood by Automated count 1.8-7.7 [facility] Neutrophils/100 WBC Auto (Bl d)Ordered By: Sridevi Tovar on 07-13-2024 Neutrophils/100 WBC (Bld) Automated neutrophil % . [facility] Nitrite Test strip Ql (U)Ord ered By: Sridevi Tovar on 07-13-2024 Nitrite Ql (U) Nitrite [Presence] i n Urine by Test strip Negative [facility] Nucleated erythrocytes [Pres ence] in Blood by Automated countOrdered By: Sridevi Tovar on 07-13-2024 Nucleated RBC Auto Ql (Bld) Nucleated erythrocytes [Presence] in Blood by Automated count 0-0.5 [facility] Platelet mean volume Auto (B ld) [Entitic vol]Ordered By: Sridevi Tovar on 07-13-2024 Platelet mean volume (Bld) [Entitic vol] Platelet mean volume [Entitic volume] in Blood by Automated count 6.3-10.7 [facility] Platelets Auto (Bld) [#/Vol] Ordered By: Sridevi Tovar on 07-13-2024 Platelets (Bld) [#/Vol] Platelets [#/volume] in Blood by Automated count 150-450 [facility] Protein Test strip (U) [Mass /Vol]Ordered By: Sridevi Tovar on 07-13-2024 Protein (U) [Mass/Vol] Protein [Mass/volume] in Urine by Test strip Negative [facility] RBC Auto (Bld) [#/Vol]Ordere d By: Sridevi Tovar on 07-13-2024 RBC (Bld) [#/Vol] Erythrocytes [#/volu me] in Blood by Automated count 3.60-5.00 [facility] Specific gravity Test strip (U) [Rel density]Ordered By: Sridevi Tovar on 07-13-2024 Specific gravity (U) [Rel density] Specific gravity of Urine by Test strip 1.001-1.030 [facility] Urine Cultureon 07-13-2024 Bacteria identified Cx Nom (U) <9,000 colonies/ml mixed bacterial skin contaminants 2 Days PERFORMED BY: [place] [address] PATHOLOGIST TISSUE COORDINATOR COLIN MORGAN M.D. Normal [facility] Comment on above: Performed By: #### A DDONUAPLUS, CUU #### [address] Urine cultureOrdered By: Pacheco Tovar on 07-13-2024 Bacteria identified Cx Nom (U) Urine culture [facility] Bacteria identified Cx Nom (U) Urine culture [facility] Urobilinogen Test strip (U) [Mass/Vol]Ordered By: Sridevi Tovar on 07-13-2024 Urobilinogen (U) [Mass/Vol] Urobilinogen [Mass/volume] in Urine by Test strip Normal [facility] WBC Auto (Bld) [#/Vol]Ordere d By: Sridevi Tovar on 07-13-2024 WBC (Bld) [#/Vol] Leukocytes [#/volume ] in Blood by Automated count 3.8-11.6 [facility] pH Test strip (U)Ordered By: Sridevi Tovar on 07-13-2024 pH (U) pH of Urine by Test strip 5.0-9.0 [facility] Ferritinon 06-15-2024 Ferritin [Mass/Vol] 20.3 ng/mL Normal 11.0-306.8 [facility] Comment on above: Result Comment: PERF ORMED BY: [place] [address] PATHOLOGIST TISSUE COORDINATOR COLIN MORGAN M.D. Performed By: #### F E and TIBC, EMMY #### [address] Ferritin [Mass/volume] in Se rum or PlasmaOrdered By: Domonique Taylor on 06-15-2024 Ferritin [Mass/Vol] Ferritin [Mass/volum e] in Serum or Plasma 11.0-306.8 [facility] Iron [Mass/volume] in Serum or PlasmaOrdered By: Domonique Taylor on 06-15-2024 Iron [Mass/Vol] Iron [Mass/volume] i n Serum or Plasma Low 50-212 [facility] Iron and TIBC Profileon 05-31-2023 % Iron Saturation 8.6 % Low 20-50 [facility] Comment on above: Performed By: #### F E and TIBC, EMMY #### [address] Iron [Mass/Vol] 38 ug/dL Low 50-212 [facility] Comment on above: Performed By: #### F E and TIBC, EMMY #### [address] Total Iron Binding Capacity 441 ug/dL Normal 255-450 [facility] Comment on above: Performed By: #### F E and TIBC, EMMY #### [place] [id number] [facility] Transferrin [Mass/Vol] 315 mg/dL Normal 203-362 [facility] Comment on above: Performed By: #### F E and TIBC, EMMY #### [address] Serum or plasma iron binding capacity measurement (mass/volume)Ordered By: Domonique Taylor on 06-15-2024 Iron binding capacity [Mass/Vol] Iron binding capacity [Mass/volume] in Serum or Plasma 255-450 [facility] Serum or plasma iron saturat ion measurement (mass fraction)Ordered By: Domonique Taylor on 06-15-2024 Iron saturation [Mass fraction] Iron saturation [Mass Fraction] in Serum or Plasma Low 20-50 [facility] Transferrin [Mass/volume] in Serum or PlasmaOrdered By: Domonique Taylor on 06-15-2024 Transferrin [Mass/Vol] Transferrin [Mass/volume] in Serum or Plasma 203-362 [facility] A1C with Estimated Average G luon 06-10-2024 Glucose [Mass/Vol] 120 mg/dL Normal [facility] Comment on above: Result Comment: PERF ORMED BY: [place] [address] PATHOLOGIST TISSUE COORDINATOR COLIN MORGAN M.D. Performed By: #### H GB, [id number], CUMRSA, ALB, A1C WTH eA #### [address] #### NICOTINE #### [facility] , HbA1c (Bld) [Mass fraction] 5.8 % High 4.3-5.6 [facility] Comment on above: Result Comment: Incr eased risk for diabetes: 5.7 - 6.4 diabetes: >6.4 glycemic control for adults with diabetes: <7.0 Performed By: #### H GB, [id number], CUMRSA, ALB, A1C WTH eA #### [place] [address] [place] #### NICOTINE #### [facility] , Albumin Levelon 06-10-2024 Albumin [Mass/Vol] 4.3 g/dL Normal 3.5-5.7 [facility] Comment on above: Performed By: #### H GB, [id number], CUMRSA, ALB, A1C WTH eA #### [place] [address] [place] #### NICOTINE #### [facility] , Albumin [Mass/volume] in Ser um or Plasma by Bromocresol green (BCG) dye binding methoOrdered By: Sridevi Tovar on 06-10-2024 Albumin BCG dye [Mass/Vol] Albumin [Mass/volume] in Serum or Plasma by Bromocresol green (BCG) dye binding metho 3.5-5.7 [facility] Blood estimated average gluc ose determination by estimation from glycated hemoglobinOrdered By: Sridevi Tovar on 06-10-2024 Average glucose Estimated from glycated hemoglobin (Bld) [Mass/Vol] Glucose mean value [Mass/volume] in Blood Estimated from glycated hemoglobin [facility] Cotinine [Mass/volume] in Se rum or PlasmaOrdered By: Sridevi Tovar on 06-10-2024 Cotinine [Mass/Vol] Cotinine [Mass/volum e] in Serum or Plasma . [facility] Comment on above: This test was develo ped and its performance characteristicsdetermined by [employer]. It has not been cleared orapproved by the Food and Drug Administration.Cotinine levels greater than 20.0 are consistent with theuse of tobacco or tobacco cessation products.Performed at: [address] [id number] Director: Richard Burnett MD, Phone: [phone] Hemoglobinon 06-10-2024 Hemoglobin (Bld) [Mass/Vol] 11.3 g/dL Low 11.8-15.4 [facility] Comment on above: Result Comment: PERF ORMED BY: [facility] [address] [place] [address] PATHOLOGIST TISSUE COORDINATOR COLIN MORGAN M.D. Performed By: #### H GB, [id number], CUMRSA, ALB, [facility]1C [facility] #### [facility] [address] [place] [address] [place] #### NICOTINE #### [facility] , Hemoglobin A1c/Hemoglobin.to carley in BloodOrdered By: Sridevi Tovar on 06-10-2024 HbA1c (Bld) [Mass fraction] Hemoglobin A1c percentage High 4.3-5.6 [facility] Comment on above: Increased risk for d iabetes: 5.7 - 6.4diabetes: >6.4glycemic control for adults with diabetes: <7.0 Hemoglobin [Mass/volume] in BloodOrdered By: Sridevi Tovar on 06-10-2024 Hemoglobin (Bld) [Mass/Vol] Hemoglobin [Mass/volume] in Blood Low 11.8-15.4 [facility] MRSA Cultureon 06-10-2024 MRSA Culture No MRSA Isolated 2 D ays PERFORMED BY: [place] [address] PATHOLOGIST TISSUE COORDINATOR COLIN MORGAN M.D. Normal [facility] Comment on above: Performed By: #### C BC #### [facility] [address] [place] [address] #### FRUC #### [facility] , Nicotine [Mass/volume] in Se rum or PlasmaOrdered By: Sridevi Tovar on 06-10-2024 Nicotine [Mass/Vol] Nicotine [Mass/volum e] in Serum or Plasma . [facility] Comment on above: This test was develo ped and its performance characteristicsdetermined by [facility]. It has not been cleared orapproved by the Food and Drug Administration.Nicotine levels greater than 2.0 are consistent with theuse of tobacco or tobacco cessation products. Nicotine/Cotinine Bloodon Cotinine, Blood <1.0 Normal . [facility] Comment on above: Result Comment: This test was developed and its performance characteristics determined by [facility]. It has not been cleared or approved by the Food and Drug Administration. Cotinine levels greater than 20.0 are consistent with the use of tobacco or tobacco cessation products. Performed at: [facility] [id number] [employer] Manager: Richard Burnett MD, Phone: [phone] PERFORMED BY: [place] [address] PATHOLOGIST TISSUE COORDINATOR COLIN MORGAN M.D. Performed By: #### C BC #### [place] [address] [place] #### FRUC #### [facility] , Nicotine, Blood <1.0 Normal . [facility] Comment on above: Result Comment: This test was developed and its performance characteristics determined by [facility]. It has not been cleared or approved by the Food and Drug Administration. Nicotine levels greater than 2.0 are consistent with the use of tobacco or tobacco cessation products. Performed By: #### C BC #### [place] [address] [place] #### FRUC #### [facility] , Vitamin D 25 Hydroxy Totalon 06-10-2024 Vitamin D 25 Hydroxy Total 89.1 ng/mL Normal 30-100 [facility] Comment on above: Result Comment: SANA MIN D STATUS 25(OH)VITAMIN D RANGE (ng/mL) Deficient <20 Insufficient 20 to <30 Sufficient 30 to 100 Reference: Yesenia Justice, Roz [place], et al. Evaluation,treatment, and prevention of vitamin D deficiency; an Endocrine Society clinical practice guideline. JCEM. 2010; 96(7):1911-30. PERFORMED BY: [place] [address] PATHOLOGIST TISSUE COORDINATOR COLIN MORGAN M.D. Performed By: #### H GB, [id number], CUMRSA, ALB, A1C WTH eA #### [address] #### NICOTINE #### [facility] , Vitamin D+Metabolites [Mass/ volume] in Serum or PlasmaOrdered By: Sridevi Tovar on 06-10-2024 Vitamin D+Metabolites [Mass/Vol] Vitamin D+Metabolites [Mass/volume] in Serum or Plasma 30-100 [facility] Comment on above: VITAMIN D STATUS 25( OH)VITAMIN D RANGE (ng/mL) Deficient <20 Insufficient 20 to <30Sufficient 30 to 100Reference: Yesenia Justice, Roz [place], et al. Evaluation,treatment, and prevention of vitamin D deficiency; an Endocrine Society clinical practice guideline. JCEM. 2010; 96(7):1911-30. Wound methicillin resistant Staphylococcus aureus (MRSA) cultureOrdered By: Sridevi Tovar on 06-10-2024 MRSA isol Org specific cx Ql (Unsp spec) Wound methicillin resistant Staphylococcus aureus (MRSA) culture [facility] CNPNon 06-08-2024 CNPN Telephone ([place]) ----- JEMIMA BRADFORD ([id number]) 1940 [address]* Date Time Provider Department 06/08/24 GIA CLAYTON During your visit today, we recorded the following information about you: Gia Clayton RN 06/08/2024 10:59 AM Signed Christa calvin (Dr Tovar) calling for medical clearance to schedule L total knee replacement. Please fax letter to [phone] 05/25/24 BRM office note: Since the patient's last visit here she has had she has had progressive left knee pain, and currently is contemplating knee replacement per Dr. Tovar at [facility]. She was cleared by cardiology. She is scheduled to see her high school tutor to obtain surgical clearance. BRM: please advise REBECCA Messina Natalie, RN 06/08/2024 11:27 AM Signed Letter completed and faxed to number requested Gia Clayton RN Allergies As of Date: 06/08/2024 Noted Allergy Reaction BIAXIN (CLARITHROMYCIN) 06/16/2013 16 - Unknown CONTRAST DYE 06/16/2013 12 - Shortness of Breath NICKEL 07/05/2020 16 - Unknown NITROUS OXIDE 12/21/2014 11 - Vomiting SYNVISC (HYLAN G-F 20) 06/16/2013 7 - Swelling THORAZINE (CHLORPROMAZINE) 06/16/2013 2 - Rash Date Reviewed: 05/25/2024 Reviewed by: Maylin Black MA - Fully Assessed Reason for Visit: Medical clearance for L total knee replacement [Other] Prescriptions as of 06/08/2024 - bumetanide (BUMEX) 1 mg tablet Take 1 mg by mouth two times a day. - anastrozole (ARIMIDEX) 1 mg tablet Take 1 tablet by mouth once daily. - montelukast (SINGULAIR) 10 mg tablet Take 10 mg by mouth once daily. - metoprolol tartrate, short acting, (LOPRESSOR) 25 mg tablet Take 1/2 tablet by mouth twice daily. - levothyroxine (SYNTHROID) 50 mcg tablet levothyroxine 50 mcg tablet TAKE 1 TABLET BY MOUTH DAILY FOR HYPOTHYROIDISM - apixaban (ELIQUIS) 5 mg tab(s) Eliquis 5 mg tablet Take 1 tablet twice a day by oral route for 90 days. - calcium carbonate (CALTRATE) 600 mg calcium (1,500 mg) tab 600 mg. - melatonin 10 mg tab 10 mg. - rosuvastatin (CRESTOR) 40 mg tablet Take 40 mg by mouth once daily. - spironolactone (ALDACTONE) 25 mg tablet Take 25 mg by mouth once daily. - esomeprazole (NEXIUM) 40 mg capsule Take 40 mg by mouth as directed. Twice per week - nitroglycerin sublingual (NITROQUICK) 0.4 mg SL tablet Dissolve 1 tablet under the tongue every 5 minutes as needed. - COQ10, UBIQUINOL, ORAL Take 1 tablet by mouth once daily. - Chromium Picolinate 500 mcg cap Take 1 tablet by mouth once daily. - MAGNESIUM ORAL Take 1 tablet by mouth once daily. 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 (*05/16/2022 Cerebrovascular accident (CVA) (HCC) [I63.9] 05/30/2022 Former smoker [Z87.891] 05/30/2022 JENNIFER (obstructive sleep apnea) [G47.33] 05/30/2022 Chronic congestive heart failure (HCC) [I50.9] 05/30/2022 Chronic kidney disease [N18.9] 05/30/2022 Hx of aortic valve repair [Z98.890, Z86.79] 05/30/2022 Mass of upper lobe of left lung [R91.8] 06/13/2022 06/22/2022 Obesity, Class I, BMI 30-34.9 [E66.811] 06/24/2022 Letter Text Encounter Status:Closed by GIA CLAYTON on 06/08/24 [facility] CNOVSPon 05-25-2024 CNOVSP Visit (SP) Office ([place]) ----- JEMIMA BRADFORD ([id number]) 1940 [address]* Date Time Provider Department 05/25/24 11:20 AM BRYANNA ADAN During your visit today, we recorded the following information about you: Temperature Pulse Respiration Blood pressure 97.4 degrees 66/minute 20/minute 126/77 Weight 83.1 kg Bryanna Adan MD 05/26/2024 7:16 AM Signed PATIENT NAME: Jemima Bradford DATE: 05/25/2024 PRIMARY CARE PHYSICIAN: Jasmyne Casillas CNP ([facility]) OTHER PHYSICIANS: Dr. Keene, Dr. Ferrari ( [facility] Cardiology, [place]), Dr. Pizarro, Dr. Arguelles, Dr. Shaniqua Ellsworth (Pulmonary, [place]), Dr. Mitzi Amaral Portions of this encounter note have been copied from my note from 11/26/2023 and has been updated where appropriate, and reflect my current medical decision making from today. 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 INTERIM HISTORY: Since the patient's last visit here she has had she has had progressive left knee pain, and currently is contemplating knee replacement per Dr. Tovar at [facility]. She was cleared by cardiology. She is scheduled to see her high school tutor to obtain surgical clearance. Otherwise she has had no significant medical changes. Chronic shortness of breath is very minimal. No new pulmonary symptoms. No unusual pain. She has noticed no changes in her breasts. She remains on anastrozole and is tolerating it well. MEDICATIONS: bumetanide (BUMEX) 1 mg tablet Take 1 mg by mouth two times a day. anastrozole (ARIMIDEX) 1 mg tablet Take 1 tablet by mouth once daily. montelukast (SINGULAIR) 10 mg tablet Take 10 mg by mouth once daily. metoprolol tartrate, short acting, (LOPRESSOR) 25 mg tablet Take 1/2 tablet by mouth twice daily. levothyroxine (SYNTHROID) 50 mcg tablet levothyroxine 50 mcg tablet TAKE 1 TABLET BY MOUTH DAILY FOR HYPOTHYROIDISM apixaban (ELIQUIS) 5 mg tab(s) Eliquis 5 mg tablet Take 1 tablet twice a day by oral route for 90 days. calcium carbonate (CALTRATE) 600 mg calcium (1,500 mg) tab 600 mg. melatonin 10 mg tab 10 mg. rosuvastatin (CRESTOR) 40 mg tablet Take 40 mg by mouth once daily. spironolactone (ALDACTONE) 25 mg tablet Take 25 mg by mouth once daily. esomeprazole (NEXIUM) 40 mg capsule Take 40 mg by mouth as directed. Twice per week nitroglycerin sublingual (NITROQUICK) 0.4 mg SL tablet Dissolve 1 tablet under the tongue every 5 minutes as needed. COQ10, UBIQUINOL, ORAL Take 1 tablet by mouth once daily. Chromium Picolinate 500 mcg cap Take 1 tablet by mouth once daily. MAGNESIUM ORAL Take 1 tablet by mouth once daily. 600mg aspirin, enteric coated (ASPIRIN, ENTERIC COATED) 81 mg EC tablet Take 81 mg by mouth once daily. 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 Aortic valve stenosis mild Arthritis Asthma controlled no inhalers Coronary artery disease Hypercholesteremia Hypertension Polymyalgia rheumatica (HCC) PAST SURGICAL HISTORY: PAST SURGICAL HISTORY Procedure Laterality Date APPENDECTOMY 07/01/1978 ARTHROSCOPY KNEE MEDIAL RELEASE 2002,2010 rt AND Lt knee ARTHRP KNE CONDYLEANDPLATU MEDIALANDLAT COMPARTMENTS Right 07/01/2013 right x2 BREAST LUMPECTOMY HX BUNIONECTOMY, LAPIDUS-TYPE 07/01/2010 rt toe CHOLECYSTECTOMY 07/01/2005 COLONOSCOPY AND POLYPECTOMY 2004, 2005, 2009 x 3 CYSTO LASER TX URETERAL CALC 07/01/2009 stent placement CYSTO W/RETROGRADE x 6 DANDC (INCOMPLETE AB), ANY TRIMESTER 07/01/1974 EXCISE EXCESS SKIN TISSUE,ABDOMEN 07/01/1994 Abdominalplasty LITHOTRIPSY PROC UNILATERAL 07/01/1985 rt kidney PAST SURGICAL HISTORY OF 12/03/2019 CABG 1v, cryomaze and AVr REMV CATARACT EXTRACAP,INSERT LENS STENT PLACEMENT 07/01/2003 LAD TONSILLECTOMY HX as child REVIEW OF SYSTEMS: GENERAL: No weight loss, malaise or fevers. HEENT: Negative for frequent or significant headaches, No changes in hearing or vision, no nose bleeds or other nasal problems RESPIRATORY: Negative for cough, wheezing or shortness of breath. CARDIOVASCULAR: Negative for chest pain, leg swelling or palpitations. GI: Negative for abdominal discomfort, blood in stools or black stools or change in bowel habits : No history of dysuria, frequency or incontinence MUSCULOSKELETAL: Negative for: joint pain or swelling, back pain and muscle pain SKIN: Negative for lesions, rash, and itching. HEMATOLOGY/LYMPHOLOGY: Negative for prolonged bleeding, bruising easily or swollen nodes. NEURO: No history of headaches, syncope, paralysis, seizures or tremors PHYSICAL EXAM: Vitals: BP 126/77 Pulse (more content not included)... Normal [facility] CT CHEST WO IVCONon 05-19-20 CT CHEST WO IVCON * * *Final Report* * * DATE OF EXAM: May 19 2024 9:54AM [facility] 0541 - CT CHEST WO IVCON / PROCEDURE REASON: Malignant neoplasm of unspecified part of unspecified bronchus or lung (HCC) * * * * Physician Interpretation * * * * RESULT: EXAMINATION: CHEST CT WITHOUT CONTRAST CLINICAL HISTORY: Non-small cell lung cancer. Technique: Spiral CT acquisition of the chest from the thoracic inlet to the upper abdomen without contrast. MQ: [id number] CT Radiation dose: Integrated Dose-length product (DLP) for this visit = 273 mGy*cm CT Dose Reduction Employed: Automated exposure control (AEC) Comparison: Chest CT without contrast from 11/19/2023. RESULT: Limitations: None. Lines, tubes, and devices: None. Lung parenchyma and airways: Surgical changes compatible with left upper lobectomy. Stable 6 mm solid nodule in the apex of the right upper lobe on slice 26 of series 3. Stable 5 mm groundglass nodule in the lateral right upper lobe on slice 29 of series 3. Scattered areas of discoid atelectasis. Pleural space: Stable trace pleural fluid at the left apex. Lower neck, lymph nodes, and mediastinum: No suspicious axillary or mediastinal lymphadenopathy. Small left supraclavicular lymph nodes. For example, there is a 9 x 8 mm left supraclavicular lymph node on slice 50 of series 2 and a 9 x 5 mm left supraclavicular lymph node on slice 52 of series 2. These are slightly increased in size when compared to 11/19/2023. Heart, pericardium, and thoracic vessels: No pericardial effusion. Aorta valve replacement. Left atrial appendage ligation device. Moderate to marked coronary artery calcification. Plate and screw fixation along the sternum. Bones and soft tissues: No destructive bone lesion. Chest wall is unremarkable. Upper abdomen: Limited images through the upper abdomen demonstrate cholecystectomy clips. Small cyst along the medial upper pole of the right kidney. Small hiatal hernia. Localizer images: No additional findings. IMPRESSION: 1. Small left supraclavicular lymph nodes. Although subcentimeter in size, these are slightly increased in size when compared to 11/19/2023. The possibility of this representing metastatic adenopathy cannot be excluded given the change in size. Would advise further evaluation with either a PET/CT at this time or a short-term follow-up chest CT with contrast in 3 months. 2. Stable subcentimeter pulmonary nodules. ACTIONABLE RESULT: FOLLOW-UP Acuity: Actionable Findings: Lymphatic System Routing Code: Lymph_1 Recommendation: Unlisted Recommendation (see report) Time Frame: Additional evaluation as described in the impression COMMUNICATION: Results will be communicated with the ordering provider via [employer] staff message or phone message by [facility] within 2 business days of report finalization. --END OF FINDING-- Algorithms for management of incidental imaging findings can be found on the [facility] Intranet Sharepoint site at: [email or web address] ging%20Incidental%20Findi ngs%20at%20Imaging/Forms/ [email or web address] Transcribe Date/Time: May 19 2024 11:16A Dictated by: ROLAND VALDOVINOS MD This examination was interpreted and the report reviewed and electronically signed by: ROLAND VALDOVINOS MD on May 19 2024 11:30AM EST Thank you for allowing us to participate in the care of your patient. Should there be any questions regarding this interpretation, please call [phone]. If you are unable to reach us at the number above, please feel free to contact [facility] at [phone]. [id number] ACTIONABLE Invalid Interpretation Code [facility] CT Chest WO contrastOrdered By: [facility] Provider on 05-19-2024 Interpretation and review of laboratory results Abnormal [facility] Result ACTIONABLE Abnormal [facility] Comment on above: This report contains an incidental or actionable finding. This finding may be a new finding separate from the reason your provider ordered the imaging test or it may be an already known finding that needs additional or continued follow-up. Because of this incidental or actionable finding, you may need another test (imaging or a different type of test). Please contact your provider for the next steps. [facility] CT Chest WO contraston 05-19 IMPRESSION: 1. Small left supraclavicular lymph nodes. Although subcentimeter in size, these are slightly increased in size when compared to 11/19/2023. The possibility of this representing metastatic adenopathy cannot be excluded given the change in size. Would advise further evaluation with either a PET/CT at this time or a short-term follow-up chest CT with contrast in 3 months. 2. Stable subcentimeter pulmonary nodules. ACTIONABLE RESULT: FOLLOW-UP Acuity: Actionable Findings: Lymphatic System Routing Code: Lymph_1 Recommendation: Unlisted Recommendation (see report) Time Frame: Additional evaluation as described in the impression COMMUNICATION: Results will be communicated with the ordering provider via [employer]iders staff message or phone message by [facility] within 2 business days of report finalization. --END OF FINDING-- Algorithms for management of incidental imaging findings can be found on the [facility] Intranet Sharepoint site at: [email or web address] [email or web address]%20Findi ngs%20at%20Imaging/Forms/ [email or web address] Transcribe Date/Time: May 19 2024 11:16A Dictated by: ROLAND VALDOVINOS MD This examination was interpreted and the report reviewed and electronically signed by: ROLAND VALDOVINOS MD on May 19 2024 11:30AM EST Thank you for allowing us to participate in the care of your patient. Should there be any questions regarding this interpretation, please call [phone]. If you are unable to reach us at the number above, please feel free to contact [facility] at [phone]. DIVISION OF RADIOLOGY * * *Final Report* * * DATE OF EXAM: May 19 2024 9:54AM [facility] 0541 - CT CHEST WO IVCON / PROCEDURE REASON: Malignant neoplasm of unspecified part of unspecified bronchus or lung (HCC) * * * * Physician Interpretation * * * * RESULT: EXAMINATION: CHEST CT WITHOUT CONTRAST CLINICAL HISTORY: Non-small cell lung cancer. Technique: Spiral CT acquisition of the chest from the thoracic inlet to the upper abdomen without contrast. MQ: CTCWO_6 CT Radiation dose: Integrated Dose-length product (DLP) for this visit = 273 mGy*cm CT Dose Reduction Employed: Automated exposure control (AEC) Comparison: Chest CT without contrast from 11/19/2023. RESULT: Limitations: None. Lines, tubes, and devices: None. Lung parenchyma and airways: Surgical changes compatible with left upper lobectomy. Stable 6 mm solid nodule in the apex of the right upper lobe on slice 26 of series 3. Stable 5 mm groundglass nodule in the lateral right upper lobe on slice 29 of series 3. Scattered areas of discoid atelectasis. Pleural space: Stable trace pleural fluid at the left apex. Lower neck, lymph nodes, and mediastinum: No suspicious axillary or mediastinal lymphadenopathy. Small left supraclavicular lymph nodes. For example, there is a 9 x 8 mm left supraclavicular lymph node on slice 50 of series 2 and a 9 x 5 mm left supraclavicular lymph node on slice 52 of series 2. These are slightly increased in size when compared to 11/19/2023. Heart, pericardium, and thoracic vessels: No pericardial effusion. Aorta valve replacement. Left atrial appendage ligation device. Moderate to marked coronary artery calcification. Plate and screw fixation along the sternum. Bones and soft tissues: No destructive bone lesion. Chest wall is unremarkable. Upper abdomen: Limited images through the upper abdomen demonstrate cholecystectomy clips. Small cyst along the medial upper pole of the right kidney. Small hiatal hernia. Localizer images: No additional findings. DIVISION OF RADIOLOGY Provider, [facility] - 05/19/2024 * * *Final Report* * * DATE OF EXAM: May 19 2024 9:54AM [facility] 0541 - CT CHEST WO IVCON / PROCEDURE REASON: Malignant neoplasm of unspecified part of unspecified bronchus or lung (HCC) * * * * Physician Interpretation * * * * RESULT: EXAMINATION: CHEST CT WITHOUT CONTRAST CLINICAL HISTORY: Non-small cell lung cancer. Technique: Spiral CT acquisition of the chest from the thoracic inlet to the upper abdomen without contrast. MQ: CTCWO_6 CT Radiation dose: Integrated Dose-length product (DLP) for this visit = 273 mGy*cm CT Dose Reduction Employed: Automated exposure control (AEC) Comparison: Chest CT without contrast from 11/19/2023. RESULT: Limitations: None. Lines, tubes, and devices: None. Lung parenchyma and airways: Surgical changes compatible with left upper lobectomy. Stable 6 mm solid nodule in the apex of the right upper lobe on slice 26 of series 3. Stable 5 mm groundglass nodule in the lateral right upper lobe on slice 29 of series 3. Scattered areas of discoid atelectasis. Pleural space: Stable trace pleural fluid at the left apex. Lower neck, lymph nodes, and mediastinum: No suspicious axillary or mediastinal lymphadenopathy. Small left supraclavicular lymph nodes. For example, there is a 9 x 8 mm left supraclavicular lymph node on slice 50 of series 2 and a 9 x 5 mm left supraclavicular lymph node on slice 52 of series 2. These are slightly increased in size when compared to 11/19/2023. Heart, pericardium, and thoracic vessels: No pericardial effusion. Aorta valve replacement. Left atrial appendage ligation device. Moderate to marked coronary artery calcification. Plate and screw fixation along the sternum. Bones and soft tissues: No destructive bone lesion. Chest wall is unremarkable. Upper abdomen: Limited images through the upper abdomen demonstrate cholecystectomy clips. Small cyst along the medial upper pole of the right kidney. Small hiatal hernia. Localizer images: No additional findings. IMPRESSION IMPRESSION: 1. Small left supraclavicular lymph nodes. Although subcentimeter in size, these are slightly increased in size when compared to 11/19/2023. The possibility of this representing metastatic adenopathy cannot be excluded given the change in size. Would advise further evaluation with either a PET/CT at this time or a short-term follow-up chest CT with contrast in 3 months. 2. Stable subcentimeter pulmonary nodules. ACTIONABLE RESULT: FOLLOW-UP Acuity: Actionable Findings: Lymphatic System Routing Code: Lymph_1 Recommendation: Unlisted Recommendation (see report) Time Frame: Additional evaluation as described in the impression COMMUNICATION: Results will be communicated with the ordering provider via iGuiders staff message or phone message by [facility] Support Services within 2 business days of report finalization. --END OF FINDING-- Algorithms for management of incidental imaging findings can be found on the [facility] Intranet Sharepoint site at: [email or web address] ging%20Incidental%20Findi ngs%20at%20Imaging/Forms/ AllItems.aspx Transcribe Date/Time: May 19 2024 11:16A Dictated by: ROLAND VALDOVINOS MD This examination was interpreted and the report reviewed and electronically signed by: ROLAND VALDOVINOS MD on May 19 2024 11:30AM EST Thank you for allowing us to participate in the care of your patient. Should there be any questions regarding this interpretation, please call [phone]. If you are unable to reach us at the number above, please feel free to contact [facility] at [phone]. [facility] Study observation (narrative) [facility] Comp Metabolic Profon 2023 Albumin [Mass/Vol] 4.4 g/dL Normal 3.5-5.2 [facility] Comment on above: Performed By: #### L IPR #### [id number] [place] [address] [employer] Manager: Mitzi Pack MD #### TSHX, CP #### [facility] [address] [place] [address] [employer]othermal Plant Manager: Eleazar Olivia MD Alkaline Phos 91 U/L Normal 35-104 [facility] Comment on above: Performed By: #### L IPR #### [facility] [address] [place] [address] [employer] Manager: Mitzi Pack MD #### TSHX, CP #### [facility] [address] [place] [address] [employer] Manager: Eleazar Olivia MD ALT [Catalytic activity/Vol] 13 U/L Normal 5-33 [facility] Comment on above: Performed By: #### L IPR #### [facility] [address] [place] [address] [employer]othermal Plant Manager: Mitzi Pack MD #### TSHX, CP #### [facility] [address] [place], [place] [id number] [employer] Plant Manager: Eleazar Olivia MD Anion gap [Moles/Vol] 11 mmol/L Normal 9-[address] [facility] Comment on above: Performed By: #### L IPR #### [facility] [address] [place] [address] [employer]othermal Plant Manager: Mitzi Pack MD #### TSHX, CP #### [facility] [address] [place], [place] [id number] [employer] Plant Manager: Eleazar Olivia MD AST [Catalytic activity/Vol] 24 U/L Normal <32 [facility] Comment on above: Performed By: #### L IPR #### [address] [address] [employer] Manager: Mitzi Pack MD #### TSHX, CP #### [facility] [address] [place] [address] [employer] Plant Manager: Eleazar Olivia MD Bilirubin [Mass/Vol] 0.5 mg/dL Normal 0.3-1.2 [facility] Comment on above: Performed By: #### L IPR #### [facility] [address] [place] [address] [employer] Manager: Mitzi Pack MD #### TSHX, CP #### [facility] [address] [place] [address] [employer]othermal Plant Manager: Eleazar Olivia MD BUN/CRE Ratio 17 Normal 9-20 [facility] Comment on above: Performed By: #### L IPR #### [address] [address] [employer] Manager: Mitzi Pack MD #### TSHX, CP #### [facility] [address] [place], [place] [phone] [employer] Plant Manager: Eleazar Olivia MD Calcium [Mass/Vol] 9.5 mg/dL Normal 8.6-10.4 [facility] Comment on above: Performed By: #### L IPR #### [facility] [address] [place] [address] [employer]othermal Plant Manager: Mitzi Pack MD #### TSHX, CP #### [facility] [address] [place], [place] [id number] [employer] Plant Manager: Eleazar Olivia MD Chloride [Moles/Vol] 103 mmol/L Normal 98-107 [facility] Comment on above: Performed By: #### L IPR #### [address] [address] [employer] Manager: Mitzi Pack MD #### TSHX, CP #### [facility] [address] [place], [place] [id number] [employer] Plant Manager: Eleazar Oilvia MD CO2 [Moles/Vol] 30 mmol/L Normal 20-31 [facility] Comment on above: Performed By: #### L IPR #### [facility] [address] [place] [address] [employer] Manager: Mitzi Pack MD #### TSHX, CP #### [facility] [address] [place], [place] [phone] Geothermal Plant Manager: Eleazar Olivia MD Creatinine [Mass/Vol] 1.3 mg/dL High 0.5-0.[address] [facility] Comment on above: Performed By: #### L IPR #### [facility] [address] [place] [address] [employer] Manager: Mitzi Pack MD #### TSHX, CP #### [facility] [address] [place], [place] [phone] [employer] Plant Manager: Eleazar Olivia MD GFR/1.73 sq M.predicted among non-blacks MDRD (S/P/Bld) [Vol rate/Area] 41 mL/min/{1.73_m2} Low >60 [facility] Comment on above: Result Comment: These results are not intended for use in patients <18 years of age. eGFR results are calculated without a race factor using the 2020 CKD-EPI equation. Careful clinical correlation is recommended, particularly when comparing to results calculated using previous equations. The CKD-EPI equation is less accurate in patients with extremes of muscle mass, extra-renal metabolism of creatine, excessive creatine ingestion, or following therapy that affects renal tubular secretion. Performed By: #### L IPR #### [address] [address] [employer] Manager: Mitzi Pack MD #### TSHX, CP #### [facility] [address] [place], [place] [phone] [employer] Plant Manager: Eleazar Olivia MD Glucose [Mass/Vol] 107 mg/dL High 70-99 [facility] Comment on above: Performed By: #### L IPR #### [address] [address] [employer] Plant Manager: Mitzi Pack MD #### TSHX, CP #### [facility] [address] [place] [address] [employer]othermal Plant Manager: Eleazar Olivia MD Potassium [Moles/Vol] 3.8 mmol/L Normal 3.7-5.[address] [facility] Comment on above: Performed By: #### L IPR #### [address] [address] [employer] Plant Manager: Mitzi Pack MD #### TSHX, CP #### [facility] [address] [place], [place] [phone] [employer] Plant Manager: Eleazar Olivia MD Protein [Mass/Vol] 7.3 g/dL Normal 6.4-8.3 [facility] Comment on above: Performed By: #### L IPR #### [address] [id number] [employer] Manager: Mitzi Pack MD #### TSHX, CP #### [facility] [address] [place] [address] Geothermal Plant Manager: Eleazar Olivia MD Sodium [Moles/Vol] 144 mmol/L Normal 135-144 [facility] Comment on above: Performed By: #### L IPR #### [facility] [place], [place] [id number] [employer] Manager: Mitzi Pack MD #### TSHX, CP #### [facility] [address] [place] [address] [employer]othermal Plant Manager: Eleazar Olivia MD Urea nitrogen [Mass/Vol] 22 mg/dL Normal 8-23 [facility] Comment on above: Performed By: #### L IPR #### [address] [id number] [employer] Manager: Mitzi Pack MD #### TSHX, CP #### [facility] [address] [place] [address] [employer]othermal Plant Manager: Eleazar Olivia MD [facility] Metabolic [facility] 05-11-2024 Albumin [Mass/Vol] 4.4 g/dL 3.5 - 5.2 g/dL [facility] ALP [Catalytic activity/Vol] 91 U/L 35 - 104 U/L [facility] ALT [Catalytic activity/Vol] 13 U/L 5 - 33 U/L [facility] Anion gap [Moles/Vol] 11 mmol/L 9 - 17 mmol/L [facility] AST [Catalytic activity/Vol] 24 U/L NINF - 32 U/L [facility] Bilirubin [Mass/Vol] 0.5 mg/dL 0.3 - 1 .2 mg/dL [facility] Calcium [Mass/Vol] 9.5 mg/dL 8.6 - 10. 4 mg/dL [facility] Chloride [Moles/Vol] 103 mmol/L 98 - 10 7 mmol/L [facility] CO2 [Moles/Vol] 30 mmol/L 20 - 31 mmol/L [facility] Creatinine [Mass/Vol] 1.3 mg/dL High 0.5 - 0.9 mg/dL [facility] Damion Bobo Rate 41 Low - PINF [facility] Comment on above: These results are not intended for use in patients <18 years of age. eGFR results are calculated without a race factor using the 2020 CKD-EPI equation. Careful clinical correlation is recommended, particularly when comparing to results calculated using previous equations. The CKD-EPI equation is less accurate in patients with extremes of muscle mass, extra-renal metabolism of creatine, excessive creatine ingestion, or following therapy that affects renal tubular secretion. Glucose [Mass/Vol] 107 mg/dL High 70 - 99 mg/dL [facility] Interpretation and review of laboratory results Abnormal [facility] Potassium [Moles/Vol] 3.8 mmol/L 3.7 - 5.3 mmol/L [facility] Protein [Mass/Vol] 7.3 g/dL 6.4 - 8.3 g/dL [facility] Sodium [Moles/Vol] 144 mmol/L 135 - 144 mmol/L [facility] Urea nitrogen [Mass/Vol] 22 mg/dL 8 - 23 mg/dL [facility] Urea nitrogen/Creatinine [Mass ratio] 17 mg/mg 9 - 20 [facility] Lipid Panelon 05-11-2024 Cholesterol [Mass/Vol] 161 mg/dL 0 - 199 mg/dL [facility] Comment on above: Cholesterol Guidelines: <200 Desirable 200-240 Borderline >240 Undesirable Cholesterol in HDL [Mass/Vol] 44 mg/dL 40 - PINF mg/dL [facility] Comment on above: HDL Guidelines: <40 Undesirable 40-59 Borderline >59 Desirable Cholesterol in LDL [Mass/Vol] 85 mg/dL 0 - 100 mg/dL [facility] Comment on above: LDL Guidelines: <100 Desirable 100-129 Near to/above Desirable 130-159 Borderline >159 Undesirable Direct (measured) LDL and calculated LDL are not interchangeable tests. Cholesterol in VLDL [Mass/Vol] 32 mg/dL High 1 - 30 mg/dL [facility] Cholesterol.total/Cho lesterol in HDL [Mass ratio] 3.7 {ratio} [facility] Interpretation and review of laboratory results Abnormal [facility] Triglyceride [Mass/Vol] 159 mg/dL High NINF - 150 mg/dL [facility] Comment on above: Triglyceride Guidelines: <150 Desirable 150-199 Borderline 200-499 High >499 Very high Based on AHA Guidelines for fasting triglyceride, March 2012. [facility] Lipid Profileon 05-11-2024 Cholesterol [Mass/Vol] 161 mg/dL Normal 0-199 [facility] Comment on above: Result Comment: Cholesterol Guidelines: <200 Desirable 200-240 Borderline >240 Undesirable Performed By: #### U RNMAB #### [facility] [address] [place] [address] [id number] [employer] Manager: Mitzi Pack MD Cholesterol in HDL [Mass/Vol] 44 mg/dL Normal >40 [facility] Comment on above: Result Comment: HDL Guidelines: <40 Undesirable 40-59 Borderline >59 Desirable Performed By: #### U RNMAB #### [employer] [address] [place] [address] [id number] [employer] Manager: Mitzi Pack MD Cholesterol in LDL [Mass/Vol] 85 mg/dL Normal 0-100 [facility] Comment on above: Result Comment: LDL Guidelines: <100 Desirable 100-129 Near to/above Desirable 130-159 Borderline >159 Undesirable Direct (measured) LDL and calculated LDL are not interchangeable tests. Performed By: #### U RNMAB #### [employer] [address] [place] [id number] [employer] Manager: Mitzi Pack MD Cholesterol in VLDL [Mass/Vol] 32 mg/dL High 1-30 [facility] Comment on above: Performed By: #### U RNMAB #### [employer] [address] [place] [id number] [employer] Manager: Mitzi Pack MD Cholesterol.total/Cho lesterol in HDL [Mass ratio] 3.7 {ratio} Normal [facility] Comment on above: Performed By: #### U RNMAB #### [facility] [address] [place], [place] [phone] [employer] Manager: Mitzi Pack MD Triglyceride [Mass/Vol] 159 mg/dL High <150 [facility] Comment on above: Result Comment: Triglyceride Guidelines: <150 Desirable 150-199 Borderline 200-499 High >499 Very high Based on AHA Guidelines for fasting triglyceride, March 2012. Performed By: #### U RNMAB #### [facility] [address] [place] [address] Geothermal Plant Manager: Mitzi Pack MD No Panel Informationon 05-11 [facility] TSH With Reflex Ft4on 2023 TSH Qn 1.51 m[IU]/L [facility] TSH w/reflex to FT4on 2023 Thyroid Stim. Horm. 1.51 uIU/mL Normal 0.30-5.00 [facility] Comment on above: Performed By: #### L IPR #### [facility] [address] [place], [place] [phone] [employer] Manager: Mitzi Pack MD #### TSHX, CP #### [facility] [address] [place] [address] Geothermal Plant Manager: Eleazar Olivia MD DBT Breast - bilateral diagn osticon 04-28-2024 BIRADS: 2 - Benign, no evidence of malignancy. Normal interval followup is recommended in 12 months. OVERALL ASSESSMENT- BENIGN A letter of notification will be sent to the patient regarding the results. 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 CAD. FINDINGS: The breasts are heterogeneously dense, which may obscure small masses. Postoperative changes right breast without evidence of recurrent malignancy. Scattered benign calcifications bilaterally. Biopsy clip left breast. [facility] RIS CONSOLIDATED Radiology Study observation (narrative) [facility] DBT Breast - bilateral diagn osticOrdered By: Colten Whitehead on 04-28-2024 [facility] Work Phone: KAYLAH CHRISSY DIGITAL DIAGNOSTIC BILATERALon 04-28-2024 KAYLAH CHRISSY DIGITAL DIAGNOSTIC BILATERAL EXAM: KAYLAH CHRISSY DIGITAL DIAGNOSTIC BILATERAL HISTORY: Ductal carcinoma in situ of right breast COMPARISON: Prior studies most recent of 04/30/2023, 04/05/2022 TECHNIQUE: 2-D images with 3-D tomography. CAD. FINDINGS: The breasts are heterogeneously dense, which may obscure small masses. Postoperative changes right breast without evidence of recurrent malignancy. Scattered benign calcifications bilaterally. Biopsy clip left breast. IMPRESSION: BIRADS: 2 - Benign, no evidence of malignancy. Normal interval followup is recommended in 12 months. OVERALL ASSESSMENT- BENIGN A letter of notification will be sent to the patient regarding the results. Performing Facility: [place] [address] Interpreted by: Colten Whitehead Jr., MD Signed by: Colten Whitehead Jr., MD 04/28/24 Final result Normal [facility] Office Visiton 04-07-2024 Follow-up visit [id number] Kaushal Bradford ra 1940 F Date Provider Department Center 04/07/2024 Edith-SHARLA DE OLIVEIRA CARD Arianna [facility] Family History Problem Relation Age of Onset Other Mother Stroke Father Other Father Other Father Breast cancer Sister Other Brother 50 Other Brother Family Status - Relation Status Age at Mother Father Sister Brother Level of Service:57778 HI OFFICE/OUTPATIENT ESTABLISHED LOW MDM 20 MIN Normal [facility] CBC W Auto Differential pane l (Bld)on 11-26-2023 Basophils (Bld) [#/Vol] 0.06 10*3/uL [facility] Basophils/100 WBC (Bld) 1.0 % [facility] Differential cell count method Nom (Bld) Auto [facility] Eosinophils (Bld) [#/Vol] 0.31 10*3/uL [facility] Eosinophils/100 WBC (Bld) 5.0 % [facility] Erythrocyte distribution width (RBC) [Ratio] 14.7 % 11.5 - 15.0 % [facility] Hematocrit (Bld) [Volume fraction] 38.0 % 36.0 - 46.0 % [facility] Hemoglobin (Bld) [Mass/Vol] 12.5 g/dL 11.5 - 15.5 g/dL [facility] Immature granulocytes (Bld) [#/Vol] [facility] Immature granulocytes/100 WBC (Bld) 0.2 % [facility] Lymphocytes (Bld) [#/Vol] 1.85 10*3/uL [facility] Lymphocytes/100 WBC (Bld) 30.1 % [facility] MCH (RBC) [Entitic mass] 28.7 pg 26.0 - 34.0 pg [facility] MCHC (RBC) [Mass/Vol] 32.9 g/dL 30.5 - 36.0 g/dL [facility] MCV (RBC) [Entitic vol] 87.2 fL 80.0 - 100.0 fL [facility] Monocytes (Bld) [#/Vol] 0.60 10*3/uL [facility] Monocytes/100 WBC (Bld) 9.8 % [facility] Neutrophils (Bld) [#/Vol] 3.32 10*3/uL [facility] Neutrophils/100 WBC (Bld) 53.9 % [facility] Nucleated RBC (Bld) [#/Vol] [facility] Nucleated RBC/100 WBC (Bld) [Ratio] 0.0 % /100 WBC [facility] Platelet mean volume (Bld) [Entitic vol] 10.5 fL 9.0 - 12.7 fL [facility] Platelets (Bld) [#/Vol] 150 10*3/uL [facility] RBC (Bld) [#/Vol] 4.36 10*6/uL 3.90 - 5.2 0 m/uL [facility] WBC (Bld) [#/Vol] 6.15 10*3/uL [facility] Comprehensive metabolic 2000 panelOrdered By: Mykel Mejia on 11-26-2023 Albumin [Mass/Vol] 4.4 g/dL 3.9 - 4.9 g/dL [facility] ALP [Catalytic activity/Vol] 91 U/L 34 - 123 U/L [facility] ALT [Catalytic activity/Vol] 13 U/L 7 - 38 U/L [facility] Anion gap [Moles/Vol] 13 mmol/L 9 - 18 mmol/L [facility] AST [Catalytic activity/Vol] 23 U/L 13 - 35 U/L [facility] Bilirubin [Mass/Vol] 0.4 mg/dL 0.2 - 1 .3 mg/dL [facility] Calcium [Mass/Vol] 10.2 mg/dL 8.5 - 10. 2 mg/dL [facility] Chloride [Moles/Vol] 103 mmol/L 97 - 10 5 mmol/L [facility] CO2 [Moles/Vol] 29 mmol/L 22 - 30 mmol/L [facility] Creatinine [Mass/Vol] 1.49 mg/dL High 0.58 - 0.96 mg/dL [facility] GFR/1.73 sq M.predicted among non-blacks MDRD (S/P/Bld) [Vol rate/Area] 35 mL/min/{1.73_m2} Low - PINF [facility] Comment on above: Estimated Glomerular Filtration Rate (eGFR) is calculated using the 2020 CKD-EPI creatinine equation. This equation utilizes serum creatinine, sex, and age as parameters. The creatinine assay has traceable calibration to isotope dilution-mass spectrometry. Refer to KDIGO guidelines for clinical interpretation. In patients with unstable renal function, e.g. those with acute kidney injury, the eGFR may not accurately reflect actual GFR. Glucose [Mass/Vol] 133 mg/dL High 74 - 99 mg/dL [facility] Comment on above: The [place] Diab[employer] Association (ADA) provides guidance for cutoff values [...] Standards of Medical Care in Diabetes 2016, [place] [employer]. Diabetes Care. 2016.39(Suppl 1). Interpretation and review of laboratory results Abnormal [facility] Potassium [Moles/Vol] 3.7 mmol/L 3.7 - 5.1 mmol/L [facility] Protein [Mass/Vol] 7.2 g/dL 6.3 - 8.0 g/dL [facility] Sodium [Moles/Vol] 145 mmol/L High 136 - 144 mmol/L [facility] Urea nitrogen [Mass/Vol] 25 mg/dL High 7 - 21 mg/dL [facility] CT Chest WO contraston 11-18 IMPRESSION: 1. Surgical changes compatible with left upper lobectomy with stable appearance when compared to the prior exam. No significant thoracic adenopathy. Stable subcentimeter solid nodule in groundglass nodule in the right upper lobe of the lungs. Would advise continued imaging surveillance. Transcribe Date/Time: Nov 19 2023 1:09P Dictated by: ROLAND VALDOVINOS MD This examination was interpreted and the report reviewed and electronically signed by: RLOAND VALDOVINOS MD on Nov 19 2023 1:23PM EST Thank you for allowing us to participate in the care of your patient. Should there be any questions regarding this interpretation, please call [phone]. If you are unable to reach us at the number above, please feel free to contact [facility] at [phone]. DIVISION OF RADIOLOGY * * *Final Report* * * DATE OF EXAM: Nov 19 2023 9:37AM [facility] 0541 - CT CHEST WO IVCON / PROCEDURE REASON: Malignant neoplasm of unspecified part of unspecified bronchus or lung (HCC) * * * * Physician Interpretation * * * * RESULT: EXAMINATION: CHEST CT WITHOUT CONTRAST CLINICAL HISTORY: Nonsmall cell lung cancer. Technique: Spiral CT acquisition of the chest from the thoracic inlet to the upper abdomen without contrast. MQ: CTCWO_6 CT Radiation dose: Integrated Dose-length product (DLP) for this visit = 253 mGy*cm CT Dose Reduction Employed: Automated exposure control (AEC) Comparison: Chest CT without contrast from 05/21/2023 RESULT: Limitations: None. Lines, tubes, and devices: None. Lung parenchyma and airways: Surgical changes compatible with left upper lobectomy. Stable 6 mm solid nodule in the apex of the right upper lobe on slice 29 of series 4. Stable 5 mm groundglass opacity in the lateral right upper lobe on slice 32 of series 4. Scattered areas of discoid atelectasis. Pleural space: Stable loculated pleural fluid at the apex of the left upper lung. Lower neck, lymph nodes, and mediastinum: No significant axillary or mediastinal lymphadenopathy. Heart, pericardium, and thoracic vessels: Median sternotomy wires. Aortic valve replacement. Left atrial appendage ligation device. Moderate to marked coronary artery calcification. No pericardial effusion. Bones and soft tissues: No destructive bone lesion. Stable nodular lesion in the right breast with adjacent surgical clips. Upper abdomen: Limited images to the upper abdomen demonstrate cholecystectomy clips. Mild bilateral renal cortical atrophy. Small exophytic cyst arising from the medial upper pole of the right kidney. Small hiatal hernia. Localizer images: No additional findings. DIVISION OF RADIOLOGY Provider, [facility] - 11/19/2023 * * *Final Report* * * DATE OF EXAM: Nov 19 2023 9:37AM [facility] 0541 - CT CHEST WO IVCON / PROCEDURE REASON: Malignant neoplasm of unspecified part of unspecified bronchus or lung (HCC) * * * * Physician Interpretation * * * * RESULT: EXAMINATION: CHEST CT WITHOUT CONTRAST CLINICAL HISTORY: Nonsmall cell lung cancer. Technique: Spiral CT acquisition of the chest from the thoracic inlet to the upper abdomen without contrast. MQ: CTCWO_6 CT Radiation dose: Integrated Dose-length product (DLP) for this visit = 253 mGy*cm CT Dose Reduction Employed: Automated exposure control (AEC) Comparison: Chest CT without contrast from 05/21/2023 RESULT: Limitations: None. Lines, tubes, and devices: None. Lung parenchyma and airways: Surgical changes compatible with left upper lobectomy. Stable 6 mm solid nodule in the apex of the right upper lobe on slice 29 of series 4. Stable 5 mm groundglass opacity in the lateral right upper lobe on slice 32 of series 4. Scattered areas of discoid atelectasis. Pleural space: Stable loculated pleural fluid at the apex of the left upper lung. Lower neck, lymph nodes, and mediastinum: No significant axillary or mediastinal lymphadenopathy. Heart, pericardium, and thoracic vessels: Median sternotomy wires. Aortic valve replacement. Left atrial appendage ligation device. Moderate to marked coronary artery calcification. No pericardial effusion. Bones and soft tissues: No destructive bone lesion. Stable nodular lesion in the right breast with adjacent surgical clips. Upper abdomen: Limited images to the upper abdomen demonstrate cholecystectomy clips. Mild bilateral renal cortical atrophy. Small exophytic cyst arising from the medial upper pole of the right kidney. Small hiatal hernia. Localizer images: No additional findings. IMPRESSION IMPRESSION: 1. Surgical changes compatible with left upper lobectomy with stable appearance when compared to the prior exam. No significant thoracic adenopathy. Stable subcentimeter solid nodule in groundglass nodule in the right upper lobe of the lungs. Would advise continued imaging surveillance. Transcribe Date/Time: Nov 19 2023 1:09P Dictated by: ROLAND VALDOVINOS MD This examination was interpreted and the report reviewed and electronically signed by: ROLAND VALDOVINOS MD on Nov 19 2023 1:23PM EST Thank you for allowing us to participate in the care of your patient. Should there be any questions regarding this interpretation, please call [phone]. If you are unable to reach us at the number above, please feel free to contact [facility] at [phone]. [facility] Radiology Study observation (narrative) [facility] CT Chest WO contrastOrdered By: [facility] Provider on 11-19-[address] [facility] [address] Chest WO contraston 05-21 IMPRESSION: 1. Postoperative changes involving left hemithorax, stable in appearance from prior examination of 01/10/2023. 2. Subcentimeter right upper lobe nodules, unchanged. 3. No substantial intrathoracic adenopathy is appreciated. 3. Newly apparent subacute/healing fractures involving the right 5th through 7th ribs are appreciated. COMMUNICATION:? Results will be communicated with the ordering provider via [employer] staff message by [facility] within 2 business days of report finalization. Transcribe Date/Time: May 21 2023 2:26P Dictated by: MIRIAN PETTIT MD This examination was interpreted and the report reviewed and electronically signed by: MIRIAN PETTIT MD on May 21 2023 3:18PM EST Thank you for allowing us to participate in the care of your patient. Should there be any questions regarding this interpretation, please call [phone]. If you are unable to reach us at the number above, please feel free to contact [facility] at [phone]. DIVISION OF RADIOLOGY * * *Final Report* * * DATE OF EXAM: May 21 2023 10:04AM [facility] 0541 - CT CHEST WO IVCON / PROCEDURE REASON: Malignant neoplasm of unspecified part of unspecified bronchus or lung (HCC) * * * * Physician Interpretation * * * * RESULT: EXAMINATION: CHEST CT WITHOUT CONTRAST CLINICAL HISTORY: Lung carcinoma. Technique: Spiral CT acquisition of the chest from the thoracic inlet to the upper abdomen without contrast. MQ: CTCWOR_4 CT Dose-Length Product: 242 mGy*cm CT Dose Reduction Employed: Automated exposure control (AEC) Comparison: CT chest 01/10/2023 RESULT: Limitations: None. Lines, tubes, and devices: Atrial appendage clip remains in place. Lung parenchyma , airways, and pleural space: Postoperative changes, compatible with prior left upper lobectomy. Partially loculated left apical/upper lobe pleural effusion, unchanged. Volume loss involving the left hemithorax, stable. Left perihilar atelectasis/scarring, unchanged. Additional areas of atelectasis/scarring within the left lower lobe, the right middle lobe and right lower lobe, unchanged. The trachea and major airways appear patent. Right upper lobe subcentimeter nodularity, larger measuring 7 mm, images 26 and 28, series 4, stable. Lower neck, lymph nodes, and mediastinum: The visualized thyroid gland is stable. No substantial supraclavicular or axillary lymphadenopathy is identified. Subcentimeter mediastinal lymph nodes are appreciated, none of which appear pathologically enlarged. Postoperative changes at the left hilum are identified. No substantial hilar adenopathy is appreciated on these unenhanced images. Heart, pericardium, and thoracic vessels: Coronary artery calcification is noted. The thoracic aorta is normal in caliber. No substantial pericardial effusion is appreciated. Small hiatal hernia, stable. Bones/Soft Tissues: Mild degenerative change within the thoracic spine. Postoperative changes, compatible with prior median sternotomy, stable. Subacute/healing fractures involving the right 5th through 7th ribs are appreciated, a new finding. Nodular mass within the posterior right breast with associated surgical clips, stable. Upper Abdomen: Limited unenhanced images through the upper abdomen are stable. Surgical clips within the right upper quadrant are noted. 1.4 cm exophytic upper pole right renal hypodensity likely relates to a cyst, stable. Machine Brush Maker (topogram) images: No additional findings. DIVISION OF RADIOLOGY Provider, [facility] - 05/21/2023 * * *Final Report* * * DATE OF EXAM: May 21 2023 10:04AM [facility] 0541 - CT CHEST WO IVCON / PROCEDURE REASON: Malignant neoplasm of unspecified part of unspecified bronchus or lung (HCC) * * * * Physician Interpretation * * * * RESULT: EXAMINATION: CHEST CT WITHOUT CONTRAST CLINICAL HISTORY: Lung carcinoma. Technique: Spiral CT acquisition of the chest from the thoracic inlet to the upper abdomen without contrast. MQ: CTCWOR_4 CT Dose-Length Product: 242 mGy*cm CT Dose Reduction Employed: Automated exposure control (AEC) Comparison: CT chest 01/10/2023 RESULT: Limitations: None. Lines, tubes, and devices: Atrial appendage clip remains in place. Lung parenchyma , airways, and pleural space: Postoperative changes, compatible with prior left upper lobectomy. Partially loculated left apical/upper lobe pleural effusion, unchanged. Volume loss involving the left hemithorax, stable. Left perihilar atelectasis/scarring, unchanged. Additional areas of atelectasis/scarring within the left lower lobe, the right middle lobe and right lower lobe, unchanged. The trachea and major airways appear patent. Right upper lobe subcentimeter nodularity, larger measuring 7 mm, images 26 and 28, series 4, stable. Lower neck, lymph nodes, and mediastinum: The visualized thyroid gland is stable. No substantial supraclavicular or axillary lymphadenopathy is identified. Subcentimeter mediastinal lymph nodes are appreciated, none of which appear pathologically enlarged. Postoperative changes at the left hilum are identified. No substantial hilar adenopathy is appreciated on these unenhanced images. Heart, pericardium, and thoracic vessels: Coronary artery calcification is noted. The thoracic aorta is normal in caliber. No substantial pericardial effusion is appreciated. Small hiatal hernia, stable. Bones/Soft Tissues: Mild degenerative change within the thoracic spine. Postoperative changes, compatible with prior median sternotomy, stable. Subacute/healing fractures involving the right 5th through 7th ribs are appreciated, a new finding. Nodular mass within the posterior right breast with associated surgical clips, stable. Upper Abdomen: Limited unenhanced images through the upper abdomen are stable. Surgical clips within the right upper quadrant are noted. 1.4 cm exophytic upper pole right renal hypodensity likely relates to a cyst, stable. Machine Brush Maker (topogram) images: No additional findings. IMPRESSION IMPRESSION: 1. Postoperative changes involving left hemithorax, stable in appearance from prior examination of 01/10/2023. 2. Subcentimeter right upper lobe nodules, unchanged. 3. No substantial intrathoracic adenopathy is appreciated. 3. Newly apparent subacute/healing fractures involving the right 5th through 7th ribs are appreciated. COMMUNICATION:? Results will be communicated with the ordering provider via [employer] staff message by [facility] within 2 business days of report finalization. Transcribe Date/Time: May 21 2023 2:26P Dictated by: MIRIAN PETTIT MD This examination was interpreted and the report reviewed and electronically signed by: MIRIAN PETTIT MD on May 21 2023 3:18PM EST Thank you for allowing us to participate in the care of your patient. Should there be any questions regarding this interpretation, please call [phone]. If you are unable to reach us at the number above, please feel free to contact [facility] at [phone]. [facility] Radiology Study observation (narrative) [facility] CT Chest WO contrastOrdered By: [facility]cf Provider on 05-21-[address] [facility] [address] Chest WO contraston 01-10 IMPRESSION: 1. Postoperative changes involving left hemithorax, as above. Improving loculated left apical pleural effusion and adjacent left perihilar atelectasis, as above. Patchy left upper lung zone groundglass opacities are identified on today's examination. 2. Subcentimeter right upper lobe nodules, larger measuring 7 mm, stable. 3. No substantial intrathoracic adenopathy is appreciated. Transcribe Date/Time: Jan 10 2023 1:41P Dictated by: MIRIAN PETTIT MD This examination was interpreted and the report reviewed and electronically signed by: MIRIAN PETTIT MD on Jan 10 2023 4:16PM EST Thank you for allowing us to participate in the care of your patient. Should there be any questions regarding this interpretation, please call [phone]. If you are unable to reach us at the number above, please feel free to contact [facility] at [phone]. DIVISION OF RADIOLOGY * * *Final Report* * * DATE OF EXAM: Jan 10 2023 11:06AM [facility] 0541 - CT CHEST WO IVCON / PROCEDURE REASON: Non-small cell lung cancer (NSCLC), monitor * * * * Physician Interpretation * * * * RESULT: EXAMINATION: CHEST CT WITHOUT CONTRAST CLINICAL HISTORY: Non-small cell lung carcinoma Technique: Spiral CT acquisition of the chest from the thoracic inlet to the upper abdomen without contrast. MQ: CTCWOR_4 CT Dose-Length Product: 236 mGy*cm CT Dose Reduction Employed: Automated exposure control (AEC) Comparison: CT chest 07/12/2022 RESULT: Limitations: None. Lines, tubes, and devices: None. Lung parenchyma , airways, and pleural space: Postoperative changes, compatible with prior left upper lobectomy. Improving partially loculated anterior left upper lung effusion. Bilateral streaky atelectasis/scarring, stable. Left perihilar atelectasis, improved. Patchy groundglass opacity within the left upper lung zone is appreciated on today's examination. Bibasilar areas of atelectasis/scarring, unchanged. Mild, diffuse bronchial wall thickening is noted. The trachea and major airways appear patent. Left upper lobe subcentimeter nodularity, larger measuring 7 mm, images 27 and 31, series 4 are again appreciated, stable. Lower neck, lymph nodes, and mediastinum: The visualized thyroid gland is stable. No substantial supraclavicular or axillary lymphadenopathy is identified. No substantial mediastinal or hilar adenopathy is definitively identified on these small hiatal hernia, stable. Heart, pericardium, and thoracic vessels: The thoracic aorta is normal in caliber. Coronary artery calcification is appreciated. No substantial pericardial effusion. Left atrial appendage clip remains in place. Bones/Soft Tissues: Degenerative change involving the thoracic spine is appreciated. Postoperative changes, compatible with prior median sternotomy is again appreciated. Upper Abdomen: Limited unenhanced images through the upper abdomen appears stable. Surgical clips within the gallbladder fossa are again noted. Machine Brush Maker (topogram) images: No additional findings. DIVISION OF RADIOLOGY Provider, [facility] - 01/10/2023 * * *Final Report* * * DATE OF EXAM: Jan 10 2023 11:06AM [facility] 0541 - CT CHEST WO IVCON / PROCEDURE REASON: Non-small cell lung cancer (NSCLC), monitor * * * * Physician Interpretation * * * * RESULT: EXAMINATION: CHEST CT WITHOUT CONTRAST CLINICAL HISTORY: Non-small cell lung carcinoma Technique: Spiral CT acquisition of the chest from the thoracic inlet to the upper abdomen without contrast. MQ: CTCWOR_4 CT Dose-Length Product: 236 mGy*cm CT Dose Reduction Employed: Automated exposure control (AEC) Comparison: CT chest 07/12/2022 RESULT: Limitations: None. Lines, tubes, and devices: None. Lung parenchyma , airways, and pleural space: Postoperative changes, compatible with prior left upper lobectomy. Improving partially loculated anterior left upper lung effusion. Bilateral streaky atelectasis/scarring, stable. Left perihilar atelectasis, improved. Patchy groundglass opacity within the left upper lung zone is appreciated on today's examination. Bibasilar areas of atelectasis/scarring, unchanged. Mild, diffuse bronchial wall thickening is noted. The trachea and major airways appear patent. Left upper lobe subcentimeter nodularity, larger measuring 7 mm, images 27 and 31, series 4 are again appreciated, stable. Lower neck, lymph nodes, and mediastinum: The visualized thyroid gland is stable. No substantial supraclavicular or axillary lymphadenopathy is identified. No substantial mediastinal or hilar adenopathy is definitively identified on these small hiatal hernia, stable. Heart, pericardium, and thoracic vessels: The thoracic aorta is normal in caliber. Coronary artery calcification is appreciated. No substantial pericardial effusion. Left atrial appendage clip remains in place. Bones/Soft Tissues: Degenerative change involving the thoracic spine is appreciated. Postoperative changes, compatible with prior median sternotomy is again appreciated. Upper Abdomen: Limited unenhanced images through the upper abdomen appears stable. Surgical clips within the gallbladder fossa are again noted. Machine Brush Maker (topogram) images: No additional findings. IMPRESSION IMPRESSION: 1. Postoperative changes involving left hemithorax, as above. Improving loculated left apical pleural effusion and adjacent left perihilar atelectasis, as above. Patchy left upper lung zone groundglass opacities are identified on today's examination. 2. Subcentimeter right upper lobe nodules, larger measuring 7 mm, stable. 3. No substantial intrathoracic adenopathy is appreciated. Transcribe Date/Time: Jan 10 2023 1:41P Dictated by: MIRIAN PETTIT MD This examination was interpreted and the report reviewed and electronically signed by: MIRIAN PETTIT MD on Jan 10 2023 4:16PM EST Thank you for allowing us to participate in the care of your patient. Should there be any questions regarding this interpretation, please call [phone]. If you are unable to reach us at the number above, please feel free to contact [facility] at [phone]. [facility] Radiology Study observation (narrative) [facility] CT Chest WO contrastOrdered By: Ccf Provider on 01-10-2023 [facility] XR knee LT 4V*on 12-07-2022 XR knee LT 4V* [facility] [employer] Other XR knee LT 4V* [facility] [employer] Other XR knee LT 4V* [address] [place] [address] [employer] Other XR knee LT 4V* [place] [address] No rt [employer] Other XR knee LT 4V* XRay Report [employer] Experience Other XR knee LT 4V* Signed [employer] Other XR knee LT 4V* Patient: Kaushal Bradford ra MR#: [id number] [employer] Other XR knee LT 4V* 632 [employer] Other XR knee LT 4V* : 1940 Acct:[id number] [employer] Other XR knee LT 4V* Age/Sex: 82 / F ADM Date: 12/07/22 RSB SPINE Other XR knee LT 4V* Loc: [facility] Room: Type : [facility] RSB SPINE Other XR knee LT 4V* Attending Dr: Sridevi Tovar II, MD RSB SPINE Other XR knee LT 4V* Copies to: Sridevi Tovar MD RSB SPINE Other XR knee LT 4V* Ordering Provider: Mikala Tovar MD RSB SPINE Other XR knee LT 4V* Date of Service: 12/07/22 RSB SPINE Other XR knee LT 4V* XR/XR knee LT 4V*: Acute pain of left knee RSB SPINE Other XR knee LT 4V* [address] left knee [address] ain film RSB SPINE Other XR knee LT 4V* COMPARISON: 08/05/2018 RSB SPINE Other XR knee LT 4V* HISTORY: Left anteri or knee pain for years. RSB SPINE Other XR knee LT 4V* ACUTE FINDINGS: None RSB SPINE Other XR knee LT 4V* DEGENERATIVE CHANGE: Moderate lateral compartment joint space tiny marginal spurring. Patellofemoral RSB SPINE Other XR knee LT 4V* degenerative changes . Valgus deformity of the knee. RSB SPINE Other XR knee LT 4V* SOFT TISSUE FINDINGS : Unremarkable RSB SPINE Other XR knee LT 4V* JOINT EFFUSION: None RSB SPINE Other XR knee LT 4V* POSTOP CHANGES: None RSB SPINE Other XR knee LT 4V* BONE MINERALIZATION: Adequate RSB SPINE Other XR knee LT 4V* X R/XR knee LT 4V* RSB SPINE Other XR knee LT 4V* Impression dictated by: Kenan Osullivan M.D.12/07/2022 4:14 PM RSB SPINE Other XR knee LT 4V* Dictation Location: RADIO-PC-12 RSB SPINE Other XR knee LT 4V* Transcribed By: PWS 12/07/22 1614 RSB SPINE Other XR knee LT 4V* Dictated By: Eliazar Osullivan DO 12/07/22 1609 RSB SPINE Other XR knee LT 4V* Signed By: [employer] Other XR knee LT 4V* 12/07/22 1614 [employer] Other XR pelvis 1-2Von 12-07-2022 XR pelvis 1-2V XR/XR pelvis 1-2V: Acute pain of left knee RSB SPINE Other XR pelvis 1-2V XR pelvis 1-2V 023 2:27 PM RSB SPINE Other XR pelvis 1-2V SIGNS AND SYMPTOMS: Left anterior and medial knee pain RSB SPINE Other XR pelvis 1-2V PROTOCOL: Frontal radiograph of the pelvis RSB SPINE Other XR pelvis 1-2V COMPARISON: None [facility] [employer] Other XR pelvis 1-2V FINDINGS: [employer] Other XR pelvis 1-2V There is narrowing o f the joint spaces of the hips. The bony ring of the pelvis is intact. No RSB SPINE Other XR pelvis 1-2V evidence of dislocat ion. There is mild enthesophyte formation at the greater trochanters and ischial RSB SPINE Other XR pelvis 1-2V tuberosities, right greater than left. RSB SPINE Other XR pelvis 1-2V X R/XR pelvis 1-2V RSB SPINE Other XR pelvis 1-2V IMPRESSION: S[employer] Experience Other XR pelvis 1-2V No fracture or dislocation. RSB SPINE Other XR pelvis 1-2V Mild degenerative ch anges are noted in the hips bilaterally. RSB SPINE Other XR pelvis 1-2V Impression dictated by: Aaron Whittington M.D.12/07/2022 4:16 PM RSB SPINE Other XR pelvis 1-2V Dictation Location: [facility]-- RSB SPINE Other XR pelvis 1-2V Transcribed By: [facility] 12/07/22 [facility] RSB SPINE Other XR pelvis 1-2V Dictated By: Aaron Whittington II, MD 12/07/22 [facility] RSB SPINE Other XR pelvis 1-2V Signed By: [employer] Other XR pelvis 1-2V 12/07/22 [facility] [employer] Other CREATININE URINEon 3 URINE CREAT 133.91 mg/dL Normal 20.00-300.0 0 [facility] Comment on above: Performed By: #### P CHANEL LUO #### [facility] [address] [place] [address] Dr. Mark Walsh PROF CHEM 8 (BAS METB)on Anion gap [Moles/Vol] 12.3 mmol/L Normal [facility] Comment on above: Performed By: #### B MP #### [facility] [address] [place] [address] Dr. Mark Walsh Calcium [Mass/Vol] 9.3 mg/dL Normal 8.5-10.1 [facility] Comment on above: Performed By: #### B MP #### [facility] [address] [place] [address] Dr. Mark Walsh Chloride [Moles/Vol] 105 mmol/L Normal 98-107 [facility] Comment on above: Performed By: #### B MP #### [facility] [address] [address] [address] Mark Walsh CO2 [Moles/Vol] 28.6 mmol/L Normal 21.0-32.0 [facility] Comment on above: Performed By: #### B MP #### [facility] [address] [address] [address] Mark Walsh Creatinine [Mass/Vol] 1.21 mg/dL Critically high 0.55-1.02 [facility] Comment on above: Performed By: #### B MP #### [facility] [address] [place] [address] Dr. Mark Walsh EGFR-AF GUINEAN 52 mL/min/1.73m2 Critically low >=60 [facility] Comment on above: Performed By: #### B MP #### [facility] [address] [address] [address] Mark Walsh EGFR-NON AF GUINEAN 43 mL/min/1.73m2 Critically low >=60 [facility] Comment on above: Performed By: #### B MP #### [facility] [address] [place] [address] Dr. Mark Walsh Glucose [Mass/Vol] 103 mg/dL Normal 74-106 [facility] Comment on above: Performed By: #### B MP #### [facility] [address] [address] [address] Mark Walsh Potassium [Moles/Vol] 3.9 mmol/L Normal 3.5-5.1 [facility] Comment on above: Performed By: #### B MP #### [facility] [address] [place] [address] Dr. Mark Walsh Sodium [Moles/Vol] 142 mmol/L Normal 136-145 [facility] Comment on above: Performed By: #### B MP #### [facility] [address] [place] [address] Dr. Mark Walsh Urea nitrogen [Mass/Vol] 21.0 mg/dL Critically high 7.0-18.0 [facility] Comment on above: Performed By: #### B MP #### [facility] [address] [place] [address] Dr. Mark Walsh Urea nitrogen/Creatinine [Mass ratio] 17.4 mg/mg Normal [facility] Comment on above: Performed By: #### B MP #### [facility] [address] [address] [address] Mark Walsh PROTEIN RAND URINEon 023 UR PROT 13.4 mg/dL Critically high <=11.9 [facility] Comment on above: Performed By: #### P CHANEL LUO #### [facility] [address] [place] [address] Dr. Mark Walsh NM STRESS/REST MULTIon 10-16 NM STRESS/REST MULTI Patient: HENRRY BRADFORD Exam Date: 10/16/2022 : 1940 Gender:F Ordering : SHARLA DE OLIVEIRA Admission #: [id number] Family : Order #: [id number] CLICK HERE TO VIEW EXAM RADIOLOGY REPORT PROCEDURE: RADIONUCLIDE IMAGING STRESS/REST MULTI COMPARISON: None. INDICATIONS: Dyspnea TECHNIQUE: Exam Description: Stress/Rest two day protocol gated SPECT Rest Imagin.0 mCi Tc-99m Cardiolite IV on 10/16/2022 Stress Imaging 31.2 mCi Tc-99m Cardiolite IV on 10/16/2022 Exercise Protocol: 0.4 mg Lexiscan given IV Heart Rate (bpm): Rest: 49 Max: 68 PMHR: 48 Blood Pressure: Rest: 136/72 Max: 150/76 Symptoms: Rest and peak stress ECG findings were normal and the exercise portion of the study was normal per attending physician Dr. De Oliveira . For more details please see separate cardiac stress test report. FINDINGS: QUALITY OF STUDY: Excellent. PERFUSION DEFECT: None. LOCATION: N/A SIZE: N/A. SEVERITY: N/A. TYPE: N/A. WALL MOTION: Normal. LV SIZE: Normal. 63 mL. TID / TCD: None; 0.8 LVEF: Normal. Calculated EF 76%. SUMMARY: Myocardial perfusion imaging study is NORMAL. CONCLUSION: 1. Normal nuclear medicine myocardial perfusion scan. Dictated by: Alison Rizvi M.D. on 10/17/2022 at 12:19 Approved by: Alison Rizvi M.D. on 10/17/2022 at 12:23 Normal [facility] CBC W Auto Differential pane l (Bld)on 10-01-2022 Basophils (Bld) [#/Vol] 0.06 10*3/uL <0.11 k/uL [facility] Basophils/100 WBC (Bld) 1.0 % [facility] Differential cell count method Nom (Bld) Auto [facility] Eosinophils (Bld) [#/Vol] 0.37 10*3/uL <0.46 k/uL [facility] Eosinophils/100 WBC (Bld) 6.0 % [facility] Erythrocyte distribution width (RBC) [Ratio] 16.4 % High 11.5 - 15.0 % [facility] Hematocrit (Bld) [Volume fraction] 39.6 % 36.0 - 46.0 % [facility] Hemoglobin (Bld) [Mass/Vol] 12.3 g/dL 11.5 - 15.5 g/dL [facility] Immature granulocytes (Bld) [#/Vol] <0.10 k/uL [facility] Immature granulocytes/100 WBC (Bld) 0.3 % [facility] Lymphocytes (Bld) [#/Vol] 1.92 10*3/uL 1.00 - 4.00 k/uL [facility] Lymphocytes/100 WBC (Bld) 31.0 % [facility] MCH (RBC) [Entitic mass] 26.7 pg 26.0 - 34.0 pg [facility] MCHC (RBC) [Mass/Vol] 31.1 g/dL 30.5 - 36.0 g/dL [facility] MCV (RBC) [Entitic vol] 85.9 fL 80.0 - 100.0 fL [facility] Monocytes (Bld) [#/Vol] 0.64 10*3/uL <0.87 k/uL [facility] Monocytes/100 WBC (Bld) 10.3 % [facility] Neutrophils (Bld) [#/Vol] 3.19 10*3/uL 1.45 - 7.50 k/uL [facility] Neutrophils/100 WBC (Bld) 51.4 % [facility] Nucleated RBC (Bld) [#/Vol] <0.01 k/uL [facility] Nucleated RBC/100 WBC (Bld) [Ratio] 0.0 /100 WBC [facility] Platelet mean volume (Bld) [Entitic vol] 9.9 fL 9.0 - 12.7 fL [facility] Platelets (Bld) [#/Vol] 155 10*3/uL 150 - 400 k/uL [facility] RBC (Bld) [#/Vol] 4.61 10*6/uL 3.90 - 5.2 0 m/uL [facility] WBC (Bld) [#/Vol] 6.20 10*3/uL 3.70 - 11.00 k/uL [facility] Comprehensive metabolic 2000 panelon 10-01-2022 Albumin [Mass/Vol] 4.4 g/dL 3.9 - 4.9 g/dL [facility] ALP [Catalytic activity/Vol] 101 U/L 34 - 123 U/L [facility] ALT [Catalytic activity/Vol] 13 U/L 7 - 38 U/L [facility] Anion gap [Moles/Vol] 11 mmol/L 9 - 18 mmol/L [facility] AST [Catalytic activity/Vol] 22 U/L 13 - 35 U/L [facility] Bilirubin [Mass/Vol] 0.4 mg/dL 0.2 - 1 .3 mg/dL [facility] Calcium [Mass/Vol] 9.7 mg/dL 8.5 - 10. 2 mg/dL [facility] Chloride [Moles/Vol] 103 mmol/L 97 - 10 5 mmol/L [facility] CO2 [Moles/Vol] 27 mmol/L 22 - 30 mmol/L [facility] Creatinine [Mass/Vol] 1.26 mg/dL High 0.58 - 0.96 mg/dL [facility] Estimated Glomerular Filtration Rate 43 mL/min/1.73m Low >=60 mL/min/1.73 m [facility] Glucose [Mass/Vol] 97 mg/dL 74 - 99 mg/dL [facility] Potassium [Moles/Vol] 4.3 mmol/L 3.7 - 5.1 mmol/L [facility] Protein [Mass/Vol] 7.5 g/dL 6.3 - 8.0 g/dL [facility] Sodium [Moles/Vol] 141 mmol/L 136 - 144 mmol/L [facility] Urea nitrogen [Mass/Vol] 23 mg/dL High 7 - 21 mg/dL [facility] LD LACTATE DEHYDROon 023 LDH [Catalytic activity/Vol] 326 U/L High 135 - 214 U/L [facility] C reactive protein [Mass/vol ume] in Serum or PlasmaOrdered By: Sridevi Arguelles on 08-13-2022 CRP [Mass/Vol] 0.5 mg/dL 0.0-1.0 [facility] Erythrocyte sedimentation ra te by Photometric methodOrdered By: Sridevi Arguelles on 08-13-2022 ESR Photometric method (Bld) [Velocity] 33 mm/hr 0-29 [facility] 6 Minute Walk TestOrdered By : Ra Wild on 07-23-2022 Distance Walked 788 ft [employer] SpO2 N/A % [facility] [employer] [facility] 6 Minute Walk Teston 023 [facility] Cardiopulmonary Services [address] [place] [address] A six minute evaluation has been completed. SpO2 was 98% on room air at rest. Patient was walked for 6 minutes on room air. SpO2 was 97-99% on room air during walking. Simple [employer] Work Phone: CT Chest WO contraston 07-12 IMPRESSION: 1. Since 06/19/2022, removal of left anterior pleural catheter and left basilar chest tubes. Increase in size of anterior pleural effusion within the lobectomy cavity and left basilar small pleural effusion. Resolution of previously seen pneumothorax component. 2. Stable regions of atelectasis/scarring involving the left lung and anterior right middle lobe. No new airspace consolidation. 3. Unchanged indeterminate 0.7 cm right upper lobe pulmonary nodule. Continued attention on subsequent studies is suggested. 4. No progressive lymphadenopathy. Transcribe Date/Time: Jul 12 2022 4:15P Dictated by: ALEXA DUVAL MD This examination was interpreted and the report reviewed and electronically signed by: ALEXA DUVAL MD on Jul 12 2022 4:27PM EST Thank you for allowing us to participate in the care of your patient. Should there be any questions regarding this interpretation, please call [phone]. If you are unable to reach us at the number above, please feel free to contact [facility] at [phone]. DIVISION OF RADIOLOGY * * *Final Report* * * DATE OF EXAM: Jul 12 2022 2:46PM [facility] 0541 - CT CHEST WO IVCON / PROCEDURE REASON: Post-operative state * * * * Physician Interpretation * * * * RESULT: EXAMINATION: CHEST CT WITHOUT CONTRAST CLINICAL HISTORY: Interstitial lung disease. Left upper lobe adenocarcinoma, status post left upper lobectomy. Technique: Spiral CT acquisition of the chest from the thoracic inlet to the upper abdomen without contrast. MQ: CTCWO_6 CT Radiation dose: Integrated Dose-length product (DLP) for this visit = 232 mGy*cm Comparison: CT chest 06/21/2022; 06/18/2022 RESULT: Limitations: None. Lines, tubes, and devices: Interval removal of left anterior approach upper pleural catheter and left basilar chest tubes. Lung parenchyma and airways: Operative changes reflect lingula sparing left upper lobectomy. There is mild subsegmental atelectasis within the remaining lingula, and left lower lobe. Bandlike regions of scarring/atelectasis are also present along the anterior inferior aspect of the right middle lobe. No new airspace consolidation is identified. The central tracheobronchial tree is patent. A 0.7 cm right upper lobe nodule (series 4, image 27) is unchanged. No enlarging suspicious pulmonary nodule is identified. Pleural space: A large left anterior pleural effusion within the lobectomy cavity is present. Previously seen pneumothorax component has resolved. Increase in size of a small dependent left pleural effusion. Lower neck, lymph nodes, and mediastinum: The imaged thyroid is unremarkable. No supraclavicular, axillary, mediastinal or hilar lymphadenopathy. Heart, pericardium, and thoracic vessels: Left atrial appendage occlusion device is noted. Status post aortic repair. The thoracic aorta and main pulmonary artery are normal in caliber. The cardiac chambers are normal in size. Coronary artery atherosclerotic calcifications are noted, although the study is not optimized for coronary assessment. No pericardial effusion or thickening. Bones and soft tissues: Multiple healing left posterior inferior rib fractures, likely related to postoperative state. Degenerative changes involve the thoracic spine. Operative changes reflect sternotomy with anterior instrumented fixation. Post-surgical changes involving the right breast are again noted. Upper abdomen: No abnormality in the imaged upper abdomen. There is a small hiatal hernia. Machine Brush Maker (topogram) images: No additional findings. DIVISION OF RADIOLOGY Provider, [facility] - 07/12/2022 * * *Final Report* * * DATE OF EXAM: Jul 12 2022 2:46PM [facility] 0541 - CT CHEST WO IVCON / PROCEDURE REASON: Post-operative state * * * * Physician Interpretation * * * * RESULT: EXAMINATION: CHEST CT WITHOUT CONTRAST CLINICAL HISTORY: Interstitial lung disease. Left upper lobe adenocarcinoma, status post left upper lobectomy. Technique: Spiral CT acquisition of the chest from the thoracic inlet to the upper abdomen without contrast. MQ: CTCWO_6 CT Radiation dose: Integrated Dose-length product (DLP) for this visit = 232 mGy*cm Comparison: CT chest 06/21/2022; 06/18/2022 RESULT: Limitations: None. Lines, tubes, and devices: Interval removal of left anterior approach upper pleural catheter and left basilar chest tubes. Lung parenchyma and airways: Operative changes reflect lingula sparing left upper lobectomy. There is mild subsegmental atelectasis within the remaining lingula, and left lower lobe. Bandlike regions of scarring/atelectasis are also present along the anterior inferior aspect of the right middle lobe. No new airspace consolidation is identified. The central tracheobronchial tree is patent. A 0.7 cm right upper lobe nodule (series 4, image 27) is unchanged. No enlarging suspicious pulmonary nodule is identified. Pleural space: A large left anterior pleural effusion within the lobectomy cavity is present. Previously seen pneumothorax component has resolved. Increase in size of a small dependent left pleural effusion. Lower neck, lymph nodes, and mediastinum: The imaged thyroid is unremarkable. No supraclavicular, axillary, mediastinal or hilar lymphadenopathy. Heart, pericardium, and thoracic vessels: Left atrial appendage occlusion device is noted. Status post aortic repair. The thoracic aorta and main pulmonary artery are normal in caliber. The cardiac chambers are normal in size. Coronary artery atherosclerotic calcifications are noted, although the study is not optimized for coronary assessment. No pericardial effusion or thickening. Bones and soft tissues: Multiple healing left posterior inferior rib fractures, likely related to postoperative state. Degenerative changes involve the thoracic spine. Operative changes reflect sternotomy with anterior instrumented fixation. Post-surgical changes involving the right breast are again noted. Upper abdomen: No abnormality in the imaged upper abdomen. There is a small hiatal hernia. Machine Brush Maker (topogram) images: No additional findings. IMPRESSION IMPRESSION: 1. Since 06/19/2022, removal of left anterior pleural catheter and left basilar chest tubes. Increase in size of anterior pleural effusion within the lobectomy cavity and left basilar small pleural effusion. Resolution of previously seen pneumothorax component. 2. Stable regions of atelectasis/scarring involving the left lung and anterior right middle lobe. No new airspace consolidation. 3. Unchanged indeterminate 0.7 cm right upper lobe pulmonary nodule. Continued attention on subsequent studies is suggested. 4. No progressive lymphadenopathy. Transcribe Date/Time: Jul 12 2022 4:15P Dictated by: ALEXA DUVAL MD This examination was interpreted and the report reviewed and electronically signed by: ALEXA DUVAL MD on Jul 12 2022 4:27PM EST Thank you for allowing us to participate in the care of your patient. Should there be any questions regarding this interpretation, please call [phone]. If you are unable to reach us at the number above, please feel free to contact [facility] at [phone]. [facility] Study observation (narrative) [facility] CT Chest WO contrastOrdered By: [facility]cf Provider on 07-12-2022 [facility] CBC W Auto Differential pane l (Bld)on 07-03-2022 Basophils (Bld) [#/Vol] 0.08 10*3/uL <0.11 k/uL [facility] Basophils/100 WBC (Bld) 1.1 % [facility] Differential cell count method Nom (Bld) Auto [facility] Eosinophils (Bld) [#/Vol] 0.26 10*3/uL <0.46 k/uL [facility] Eosinophils/100 WBC (Bld) 3.6 % [facility] Erythrocyte distribution width (RBC) [Ratio] 15.7 % High 11.5 - 15.0 % [facility] Hematocrit (Bld) [Volume fraction] 31.2 % Low 36.0 - 46.0 % [facility] Hemoglobin (Bld) [Mass/Vol] 9.6 g/dL Low 11.5 - 15.5 g/dL [facility] Immature granulocytes (Bld) [#/Vol] 0.03 10*3/uL <0.10 k/uL [facility] Immature granulocytes/100 WBC (Bld) 0.4 % [facility] Lymphocytes (Bld) [#/Vol] 1.55 10*3/uL 1.00 - 4.00 k/uL [facility] Lymphocytes/100 WBC (Bld) 21.5 % [facility] MCH (RBC) [Entitic mass] 27.5 pg 26.0 - 34.0 pg [facility] MCHC (RBC) [Mass/Vol] 30.8 g/dL 30.5 - 36.0 g/dL [facility] MCV (RBC) [Entitic vol] 89.4 fL 80.0 - 100.0 fL [facility] Monocytes (Bld) [#/Vol] 0.65 10*3/uL <0.87 k/uL [facility] Monocytes/100 WBC (Bld) 9.0 % [facility] Neutrophils (Bld) [#/Vol] 4.65 10*3/uL 1.45 - 7.50 k/uL [facility] Neutrophils/100 WBC (Bld) 64.4 % [facility] Nucleated RBC (Bld) [#/Vol] <0.01 k/uL [facility] Nucleated RBC/100 WBC (Bld) [Ratio] 0.0 /100 WBC [facility] Platelet mean volume (Bld) [Entitic vol] 8.7 fL Low 9.0 - 12.7 fL [facility] Platelets (Bld) [#/Vol] 436 10*3/uL High 150 - 400 k/uL [facility] RBC (Bld) [#/Vol] 3.49 10*6/uL Low 3.90 - 5.2 0 m/uL [facility] WBC (Bld) [#/Vol] 7.22 10*3/uL 3.70 - 11.00 k/uL [facility] Comprehensive metabolic 2000 panelon 07-03-2022 Albumin [Mass/Vol] 3.4 g/dL Low 3.9 - 4.9 g/dL [facility] ALP [Catalytic activity/Vol] 115 U/L 34 - 123 U/L [facility] ALT [Catalytic activity/Vol] 13 U/L 7 - 38 U/L [facility] Anion gap [Moles/Vol] 9 mmol/L 9 - 18 mmol/L [facility] AST [Catalytic activity/Vol] 23 U/L 13 - 35 U/L [facility] Bilirubin [Mass/Vol] 0.4 mg/dL 0.2 - 1 .3 mg/dL [facility] Calcium [Mass/Vol] 9.2 mg/dL 8.5 - 10. 2 mg/dL [facility] Chloride [Moles/Vol] 102 mmol/L 97 - 10 5 mmol/L [facility] CO2 [Moles/Vol] 26 mmol/L 22 - 30 mmol/L [facility] Creatinine [Mass/Vol] 1.36 mg/dL High 0.58 - 0.96 mg/dL [facility] Estimated Glomerular Filtration Rate 39 mL/min/1.73m Low >=60 mL/min/1.73 m [facility] Glucose [Mass/Vol] 132 mg/dL High 74 - 99 mg/dL [facility] Potassium [Moles/Vol] 4.1 mmol/L 3.7 - 5.1 mmol/L [facility] Protein [Mass/Vol] 6.3 g/dL 6.3 - 8.0 g/dL [facility] Sodium [Moles/Vol] 137 mmol/L 136 - 144 mmol/L [facility] Urea nitrogen [Mass/Vol] 23 mg/dL High 7 - 21 mg/dL [facility] ALLIED HEALTHon 06-24-2022 [facility] HNO ID: [id number] Author: RT Shakira(R) Service: ? Author Type: Technologist Type: Allied Health Filed: 06/24/2022 7:18 AM Note Text: Radiology Service Progress Note PATIENT NAME: Jemima Bradford DATE OF SERVICE: June 24, 2022 TIME: 7:18 AM PATIENT IDENTITY VERIFICATION COMPLETED USING TWO (2) IDENTIFIERS: Name and Date of confirmed by patient verbally and Name and Date of confirmed by identification band. FALL SCREENING: Has the patient had 2 falls in the last year or 1 fall with injury or currently using an Ambulatory Assistive Device (Walker, Cane, Wheelchair, Crutches, etc.)? Inpatient: Screened on floor PATIENT GENDER DATA: Female. status: : No status: NO. PATIENT RELEVANT IMPLANT DATA REVIEWED: Not Applicable RADIOLOGY DEPARTMENT: General X-ray: Exam(s) Completed: Chest X-Ray PERIPHERAL IV DATA: Not applicable SIGNED BY: Karis Zambrano RT(R) June 24, 2022 7:18 AM Normal [facility] CBC panel Auto (Bld)on 06-24 Erythrocyte distribution width (RBC) [Ratio] 15.7 % High 11.5-15.0 [facility] Comment on above: Order Comment: Speci men Type: BLOOD SPECIMEN Ordering Facility: [facility] Address: [address] [place] [address] Performed By: #### 5 8410-2 #### [facility] CLIA [id number] [address] [place] [address] [place] Hematocrit (Bld) [Volume fraction] 25.9 % Low 36.0-46.0 [facility] Comment on above: Order Comment: Speci men Type: BLOOD SPECIMEN Ordering Facility: [facility] Address: [address] [place] [address] Performed By: #### 5 8410-2 #### [facility] CLIA [id number] [address] [place] [address] [place] Hemoglobin (Bld) [Mass/Vol] 8.4 g/dL Low 11.5-15.5 [facility] Comment on above: Order Comment: Speci men Type: BLOOD SPECIMEN Ordering Facility: [facility] Address: [address] [place] [address] Performed By: #### 5 8410-2 #### [facility] CLIA [id number] [address] [place] [address] [place] MCH (RBC) [Entitic mass] 28.4 pg Normal 26.0-34.0 [facility] Comment on above: Order Comment: Speci men Type: BLOOD SPECIMEN Ordering Facility: [facility] Address: [address] [place] [address] Performed By: #### 5 8410-2 #### [facility] CLIA [id number] [address] [place] [address] [place] MCHC (RBC) [Mass/Vol] 32.4 g/dL Normal 30.5-36.0 [facility] Comment on above: Order Comment: Speci men Type: BLOOD SPECIMEN Ordering Facility: [facility] Address: [address] [address] Performed By: #### 5 8410-2 #### [facility] CLIA [id number] [address] [place] [address] [place] MCV (RBC) [Entitic vol] 87.5 fL Normal 80.0-100.0 [facility] Comment on above: Order Comment: Speci men Type: BLOOD SPECIMEN Ordering Facility: [facility] Address: [address] [place] [address] Performed By: #### 5 8410-2 #### [facility] CLIA [id number] [address] [place] [address] [place] Nucleated RBC (Bld) [#/Vol] 10*3/uL Normal <0.01 [facility] Comment on above: Order Comment: Speci men Type: BLOOD SPECIMEN Ordering Facility: [facility] Address: [address] [address] Performed By: #### 5 8410-2 #### [facility] CLIA [id number] [address] [place] [address] [place] Platelet mean volume (Bld) [Entitic vol] 9.1 fL Normal 9.0-12.7 [facility] Comment on above: Order Comment: Speci men Type: BLOOD SPECIMEN Ordering Facility: [facility] Address: [address] [address] Performed By: #### 5 8410-2 #### [facility] CLIA [id number] [address] [place] [address] [place] Platelets (Bld) [#/Vol] 341 10*3/uL Normal 150-400 [facility] Comment on above: Order Comment: Speci men Type: BLOOD SPECIMEN Ordering Facility: [facility] Address: [address] [address] Performed By: #### 5 8410-2 #### [facility] CLIA [id number] [address] [place] [address] [place] RBC (Bld) [#/Vol] 2.96 10*6/uL Low 3.90-5.20 [facility] Comment on above: Order Comment: Specjose men Type: BLOOD SPECIMEN Ordering Facility: [facility] Address: [address] [address] Performed By: #### 5 8410-2 #### [facility] CLIA [id number] [place] [address] OF [facility] WBC (Bld) [#/Vol] 7.67 10*3/uL Normal 3.70-11.00 [facility] Comment on above: Order Comment: Specjose men Type: BLOOD SPECIMEN Ordering Facility: [facility] Address: [address] [place] [address] Performed By: #### 5 8410-2 #### [facility] CLIA [id number] [address] [place] [address] CNDSon 06-24-2022 [facility] HNO ID: [id number] Author: Louis العلي PA-C Service: Thoracic Surgery Author Type: Physician Semiconductor Processing Technician Type: Discharge Summary Filed: 06/24/2022 9:56 AM Note Text: ----- Attestation signed by Mitzi Amaral MD at 06/26/2022 8:01 AM Attending Note I have personally performed a face to face assessment of the patient and have reviewed the MARLYS note. I performed a substantive portion of the visit including all aspects of the following. My chua findings include: The patient's post-operative course has been remarkable for the development of a left apical hydropneumothorax after operation. A small bore chest drain was placed by interventional radiology. The patient then developed a fluid collection in this space thought to represent clot/retained hemothorax. The patient also developed atrial fibrillation requiring medication to convert/control her rate. However, the patient is doing well. All of the patient's tubes, lines and drains have been removed. The patient has good pain control with oral analgesics. The patient is ambulatory and independent. The patient is tolerating a regular diet. This patient is stable for discharge to home. Other additions or changes: The patient has been given written discharge instructions. The patient has been encouraged to call for any changes, concerns or questions. I will see the patient in follow up in 4 weeks with a chest x-ray. Signature: Mitzi Amaral MD Date: 06/26/2022 Time: 7:59 AM ----- Department of Thoracic Surgery Discharge Summary (Template ID [id number]) PATIENT NAME: Jemima Bradford ADMISSION DATE: 06/13/2022 DISCHARGE DATE: 06/24/2022 Attending Physician: Mitzi Amaral MD Code Status: Full Code Primary Service: Mitzi Amaral MD Admission Diagnosis: Adenocarcinoma of left lung Discharge Diagnosis: Adenocarcinoma of left lung s/p left robotic-assisted anatomic lingular sparring upper lobectomy Reason for Hospitalization: Jemima Bradford is a very pleasant 82-year old female who is a former 3.5+ pack year smoker. She has a history of DCIS breast cancer. She had a CT chest on 04/04/22 that showed a scarlike opacity in the left upper lobe measuring 1.5 x 1.3 cm. Comparison with a CT chest in December 2019 revealed a scarlike lesion in the area measuring 1.1 x 0.8 cm. PET scan on 04/16/22 showed that the left upper lobe nodule was hypermetabolic, SUV 3.7. 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 MRI brain on 05/02/22 shows no evidence for metastatic disease. Operations during Hospitalization: Left robotic-assisted pneumolysis. Left robotic-assisted anatomic lingular sparring upper lobectomy: S1, S2, S3. Mediastinal lymph node dissection, nodes: 5, 7, 9, 10, 11 and 12. Cryoanalgesia procedure, interspaces 5 - 7. (Total time 10 minutes) Left regional intercostal nerve block, interspaces 5 - 7. (Marcaine) Chest tube placement x 1 (#24-St Helenian chest tube). Hospital Course: * How was the Reason for Hospitalization Addressed: Patient presented to on 06/19/2022 for Left uppper lobectomy by Dr. Amaral. Patient underwent Left robotic-assisted pneumolysis; Left robotic-assisted anatomic lingular sparring upper lobectomy: S1, S2, S3; Mediastinal lymph node dissection, nodes: 5, 7, 9, 10, 11 and 12; Cryoanalgesia procedure, interspaces 5 - 7. (Total time 10 minutes); Left regional intercostal nerve block, interspaces 5 - 7. (Marcaine); Chest tube placement x 1 (#24-[facility] [place]ian chest tube) by Dr. Amaral without complication on 06/19/2022. She spent 0 days in the ICU for hemodynamic and respiratory support. Patient length of stay complicated by urinary retention, atrial fibrillation, and opacification of Left upper lobe on CXR. Patient was started on amiodarone gtt on POD#5 and has since been converted to PO amio. Second chest tube placed by IR on POD#7. Both chest tubes removed on POD#8. Evidence of minor bleeding from secondary chest tube site on imaging - stable x 3 days. Patient walking the halls with minimal assistance, not requiring supplemental oxygen, eating meals, and moving bowels. Patient is medically cleared as discussed and approved by the physician, and will be discharged to home with no needs as patient declined home health care. Patient to discharge home in stable condition. Patient discharged on Amiodarone and home medications. Thorough discharge instructions were provided and personally reviewed with the patient prior to discharge. Patient to follow up with Thoracic surgery in one month with CT chest. * What were the Active Issues: Residual postoperative PTX, pain control, atrial fibrillation, urinary retention * Hospital Course Complicated by: R (more content not included)... Normal [facility] CONSULT PROGon 06-24-2022 CONSULT PROG HNO ID: [id number] Author: Selvin Salazar PA-C Service: Pain Management Author Type: Physician Semiconductor Processing Technician Type: Consult Progress Note Filed: 06/24/2022 7:48 AM Note Text: APMS PROGRESS NOTE PATIENT NAME: Jemima Bradford SERVICE DATE: 06/24/2022 SERVICE TIME: 7:44 AM ASSESSMENT Jemima Bradford is a 82 year old female S/P VATS and mediastinal lymph node dissection on 06/13/22 .with Paravertebral nerve blocks at T5 and T7 single injections were performed preoperatively using exparel. L pigtail placed on POD# 10 by primary team. Ms. Bradford today is sitting up in bed NAD. She reports her pain is better controlled today 4/10 and she is to be discharged today. PLAN/Recs: Pain controlled with medical regimen patient to be discharged, APMS will sign off please reconsult if needed. The plan was discussed in detail with patient +/- family, bedside RN, APMS staff and primary service, who expressed agreement, understanding and comfort with the plan. Thank you for including us in her care. Please call us with any questions or concerns. SUBJECTIVE CHIEF COMPLAINT: left sided pain/post op pain PRIMARY SERVICE: Thoracic Surgery INTERVAL HPI: Jemima Bradford is a 82 year old female S/P VATS and mediastinal lymph node dissection on 06/13/22 .with Paravertebral nerve blocks at T5 and T7 single injections were performed preoperatively using exparel. L pigtail placed on POD# 10 by primary team, Pain level is 4 at rest 7 with ambulation on a scale of 0-10. Is the patient tolerating Physical Therapy?: yes Pain at surgical site? Yes L chest Character: ache Duration: intermittent Radiation: No Relieved: yes Is patient satisfied with pain control: yes Overnight Events: None Overnight Pain Interventions: no Allergy: ALLERGIES Allergen Reactions Biaxin [Clarithromy* Unknown Contrast Dye Shortness of Breath Nickel Unknown Nitrous Oxide Vomiting Synvisc [Hylan G-F * Swelling Thorazine [Chlorpro* Rash MEDICATIONS: Current Facility-Administered Medications Medication Dose Route Frequency rosuvastatin 40 mg tab(s) (CRESTOR) 40 mg ORAL DAILY anastrozole 1 mg tab(s) (ARIMIDEX) 1 mg ORAL DAILY calcium carbonate 1,250 mg tab(s) (OS-MARIA FERNANDA 500) 1,250 mg ORAL DAILY zafirlukast 20 mg tab(s) (ACCOLATE) 20 mg ORAL DAILY melatonin 9 mg tab(s) 9 mg ORAL AT BEDTIME PRN aspirin, enteric coated 81 mg tab(s) 81 mg ORAL DAILY pantoprazole DR 20 mg tab(s) (PROTONIX) 20 mg ORAL BEFORE BREAKFAST DAILY levothyroxine 50 mcg tab(s) (SYNTHROID) 50 mcg ORAL DAILY (6 AM) nitroglycerin sublingual 0.4 mg tab(s) (NITROQUICK) 0.4 mg SUBLINGUAL q 5 MIN PRN ondansetron (PF) 4 mg injection (ZOFRAN) 4 mg INTRAVENOUS q 6 H PRN enoxaparin 40 mg injection (LOVENOX) 40 mg SUBCUTANEOUS q 24 HR NaCl 0.9% iv flush bag 20 mL INTRAVENOUS PRN oxyCODONE IR 5-10 mg tab(s) (ROXICODONE) 5-10 mg ORAL q 4 H PRN ipratropium-albuterol 3 mL nebulizer solution (DUONEB) 3 mL INHALATION TID polyethylene glycol 3350 17 g packet (MIRALAX, GLYCOLAX) 17 g ORAL DAILY PRN potassium chloride ER 20 mEq tab(s) (K-DUR, KLOR-CON) 20 mEq ORAL BID amiodarone 400 mg tab(s) (PACERONE) 400 mg ORAL BID guaiFENesin 600 mg ER tab(s) (MUCINEX) 600 mg ORAL q 12 H spironolactone 25 mg tab(s) (ALDACTONE) 25 mg ORAL DAILY acetaminophen 650 mg tab(s) (TYLENOL) 650 mg ORAL q 6 H diclofenac 1 % 4 g topical gel (VOLTAREN) 4 g TOPICAL QID lidocaine 4 % 2 Patch (SALONPAS) 2 Patch TRANSDERMAL DAILY AT 9 PM And lidocaine patch - REMOVE OTHER DAILY And lidocaine - VERIFY PATCH OTHER AT BEDTIME methocarbamol 500 mg tab(s) (ROBAXIN) 500 mg ORAL TID senna-docusate 8.6-50 mg 1 tablet (SENNA-S) 1 tablet ORAL BID bisacodyl EC 5 mg tab(s) (DULCOLAX) 5 mg ORAL DAILY PRN furosemide 40 mg tab(s) (LASIX) 40 mg ORAL DAILY gabapentin 300 mg cap(s) (NEURONTIN) 300 mg ORAL TID OBJECTIVE: PHYSICAL EXAM: No data found. Affect: awake, alert, and oriented General Impression: appears comfortable Respiratory Exam: Respirations: Breathing appears normal Thoracostomy tube?: No Gastrointestinal Exam: Abdomen: deferred NG: NO DATA: Lab Results APTT 25.6 05/30/2022 PT Sec 11.3 05/30/2022 PT INR 1.1 05/30/2022 Hemoglobin 8.4 06/24/2022 Hematocrit 25.9 06/24/2022 Platelet Count 341 06/24/2022 SIGNATURE: Selvin Salazar PA-C PATIENT NAME: Jemima Bradford DATE: June 24, 2022 TIME: 7:44 AM PAGER/CONTACT #: OCTAVIO [phone] Normal [facility] XR CHEST 1V FRONTAL PORTon 1 08-25-2021 XR CHEST 1V FRONTAL PORT * * *Final Report* * * DATE OF EXAM: Jun 24 2022 7:17AM FVX [id number] - XR CHEST 1V FRONTAL PORT / PROCEDURE REASON: Post-operative / post-procedure assessment, asymptomatic * * * * Physician Interpretation * * * * FRONTAL CHEST RADIOGRAPH HISTORY: Post-operative / post-procedure assessment, asymptomatic. TECHNIQUE: Frontal view of the chest was obtained. COMPARISON: 06/22/2022 RESULT: Cardiomediastinal silhouette is normal. Hazy opacity throughout the left lung with associated small left pleural effusion and postsurgical changes. Subcutaneous emphysema left chest wall. No pneumothorax. Patchy right basilar opacity. IMPRESSION: See result. Physical Chemistry Professor: PSCB Transcribe Date/Time: Jun 24 2022 7:22A Dictated by : KINJAL MARIE MD This examination was interpreted and the report reviewed and electronically signed by: KINJAL MARIE MD on Jun 24 2022 7:25AM EST [id number] Normal [facility] Basic metabolic 2000 panelon 06-23-2022 Anion gap [Moles/Vol] 11 mmol/L Normal 9-18 [facility] Comment on above: Order Comment: Speci men Type: BLOOD SPECIMEN Ordering Facility: [facility] Address: [address] [place] [id number] Performed By: #### 5 8410-2 #### [facility] CLIA [id number] [place] [address] [place] Calcium [Mass/Vol] 8.6 mg/dL Normal 8.5-10.2 [facility] Comment on above: Order Comment: Speci men Type: BLOOD SPECIMEN Ordering Facility: [facility] Address: [address] [address] Performed By: #### 5 8410-2 #### [facility] CLIA [id number] [address] [place] [address] [place] Chloride [Moles/Vol] 103 mmol/L Normal 97-105 [facility] Comment on above: Order Comment: Speci men Type: BLOOD SPECIMEN Ordering Facility: [facility] Address: [address] [place] [address] Performed By: #### 5 8410-2 #### [facility] CLIA [id number] [address] [place] [address] [place] CO2 [Moles/Vol] 26 mmol/L Normal 22-30 [facility] Comment on above: Order Comment: Speci men Type: BLOOD SPECIMEN Ordering Facility: [facility] Address: [address] [place] [address] Performed By: #### 5 8410-2 #### [facility] CLIA [id number] [address] [place] [address] [place] Creatinine [Mass/Vol] 1.24 mg/dL High 0.58-0.96 [facility] Comment on above: Order Comment: Speci men Type: BLOOD SPECIMEN Ordering Facility: [facility] Address: [address] [place] [address] Performed By: #### 5 8410-2 #### [facility] CLIA [id number] [address] [place] [address] [place] ESTIMATED GLOMERULAR FILTRATION RATE 44 mL/min/1.73m??? Low >=60 [facility] Comment on above: Order Comment: Speci men Type: BLOOD SPECIMEN Ordering Facility: [facility] Address: [address] [place] [address] Result Comment: Dee mated Glomerular Filtration Rate (eGFR) is calculated using the 2020 CKD-EPI creatinine equation. This equation utilizes serum creatinine, sex, and age as parameters. The creatinine assay has traceable calibration to isotope dilution-mass spectrometry. Refer to KDIGO guidelines for clinical interpretation. In patients with unstable renal function, e.g. those with acute kidney injury, the eGFR may not accurately reflect actual GFR. Performed By: #### 5 8410-2 #### [facility] CLIA [id number] [address] [place] [address] [place] Glucose [Mass/Vol] 107 mg/dL High 74-99 [facility] Comment on above: Order Comment: Mary Kay rausch Type: BLOOD SPECIMEN Ordering Facility: [facility] Address: [address] [place] [address] Result Comment: The [place] Diabetes Association (ADA) provides guidance for cutoff [...] Standards of Medical Care in Diabetes 2016, [place] [employer] Association. Diabetes Care. 2016.39(Suppl 1). Performed By: #### 5 8410-2 #### [facility] CLIA [id number] [address] [place] [address] [place] Potassium [Moles/Vol] 4.3 mmol/L Normal 3.7-5.1 [facility] Comment on above: Order Comment: Mary Kay rausch Type: BLOOD SPECIMEN Ordering Facility: [facility] Address: [address] [id number] Performed By: #### 5 8410-2 #### [facility] CLIA [id number] [place] [address] [place] Sodium [Moles/Vol] 140 mmol/L Normal 136-144 [facility] Comment on above: Order Comment: Speci men Type: BLOOD SPECIMEN Ordering Facility: [facility] Address: [address] [address] Performed By: #### 5 8410-2 #### [facility] CLIA [id number] [address] [place] [address] STATES OF [facility] Urea nitrogen [Mass/Vol] 21 mg/dL Normal 7-21 [facility] Comment on above: Order Comment: Speci men Type: BLOOD SPECIMEN Ordering Facility: [facility] Address: [address] [address] Performed By: #### 5 8410-2 #### [facility] CLIA [id number] [address] [place] [address] CBC panel Auto (Bld)on 06-23 Erythrocyte distribution width (RBC) [Ratio] 15.8 % High 11.5-15.0 [facility] Comment on above: Order Comment: Speci men Type: BLOOD SPECIMEN Ordering Facility: [facility] Address: [address] [place] [address] Performed By: #### 5 8410-2 #### [facility] CLIA [id number] [address] [place] [address] Hematocrit (Bld) [Volume fraction] 27.0 % Low 36.0-46.0 [facility] Comment on above: Order Comment: Speci men Type: BLOOD SPECIMEN Ordering Facility: [facility] Address: [address] [place] [address] Performed By: #### 5 8410-2 #### [facility] CLIA [id number] [address] [place] [address] [place] Hemoglobin (Bld) [Mass/Vol] 8.6 g/dL Low 11.5-15.5 [facility] Comment on above: Order Comment: Speci men Type: BLOOD SPECIMEN Ordering Facility: [facility] Address: [address] [place] [address] Performed By: #### 5 8410-2 #### [facility] CLIA [id number] [address] [place] [address] STATES [facility] MCH (RBC) [Entitic mass] 28.2 pg Normal 26.0-34.0 [facility] Comment on above: Order Comment: Speci men Type: BLOOD SPECIMEN Ordering Facility: [facility] Address: [address] [address] Performed By: #### 5 8410-2 #### [facility] CLIA [id number] [address] [place] [address] [place] MCHC (RBC) [Mass/Vol] 31.9 g/dL Normal 30.5-36.0 [facility] Comment on above: Order Comment: Speci men Type: BLOOD SPECIMEN Ordering Facility: [facility] Address: [address] [place] [address] Performed By: #### 5 8410-2 #### [facility] CLIA [id number] [address] [place] [address] [place] MCV (RBC) [Entitic vol] 88.5 fL Normal 80.0-100.0 [facility] Comment on above: Order Comment: Speci men Type: BLOOD SPECIMEN Ordering Facility: [facility] Address: [address] [address] Performed By: #### 5 8410-2 #### [facility] CLIA [id number] [address] [place] [address] [place] Nucleated RBC (Bld) [#/Vol] 10*3/uL Normal <0.01 [facility] Comment on above: Order Comment: Speci men Type: BLOOD SPECIMEN Ordering Facility: [facility] Address: [address] [address] Performed By: #### 5 8410-2 #### [facility] CLIA [id number] [address] [place] [address] OF [place] Platelet mean volume (Bld) [Entitic vol] 9.4 fL Normal 9.0-12.7 [facility] Comment on above: Order Comment: Speci men Type: BLOOD SPECIMEN Ordering Facility: [facility] Address: [address] [address] Performed By: #### 5 8410-2 #### [facility] CLIA [id number] [place] [address] [place] Platelets (Bld) [#/Vol] 303 10*3/uL Normal 150-400 [facility] Comment on above: Order Comment: Speci men Type: BLOOD SPECIMEN Ordering Facility: [facility] Address: [address] [place] [address] Performed By: #### 5 8410-2 #### [facility] CLIA [id number] [address] [place] [address] [place] RBC (Bld) [#/Vol] 3.05 10*6/uL Low 3.90-5.20 [facility] Comment on above: Order Comment: Speci men Type: BLOOD SPECIMEN Ordering Facility: [facility] Address: [address] [place] [address] Performed By: #### 5 8410-2 #### [facility] CLIA [id number] [address] [place] [address] [place] WBC (Bld) [#/Vol] 6.56 10*3/uL Normal 3.70-11.00 [facility] Comment on above: Order Comment: Speci men Type: BLOOD SPECIMEN Ordering Facility: [facility] Address: [address] [place] [address] Performed By: #### 5 8410-2 #### [facility] CLIA [id number] [address] [place] [address] [place] CONSULT PROGon 06-23-2022 CONSULT PROG HNO ID: [id number] Author: Selvin Salazar PA-C Service: Pain Management Author Type: Physician Semiconductor Processing Technician Type: Consult Progress Note Filed: 06/23/2022 10:01 AM Note Text: APMS PROGRESS NOTE PATIENT NAME: Jemima Bradford SERVICE DATE: 06/23/2022 SERVICE TIME: 8:33 AM ASSESSMENT Jemima Bradford is a 82 year old female S/P VATS and mediastinal lymph node dissection on 06/13/22 .with Paravertebral nerve blocks at T5 and T7 single injections were performed preoperatively using exparel. L pigtail placed on POD# 9 by primary team, APMS re consulted today to aid in post op pain control. Ms. Bradford is sitting up in bed NAD. Pain still to L lateral chest reports tolerable 5/10 pain level. Reports Robaxin is effective for improving her pain. She denies any side effects on current regimen. PLAN/Recs: Continue Acetaminophen to 650 mg PO Q 6 h while inpatient, May change to PRN at time of discharge Continue Diclofenac gel QID to L chest for 3-5 days Continue Lidocaine patch to 2 patches QHS while inpatient Continue Robaxin 500mg PO Q 8hr with holding parameters for muscle spasms for 3-5 days Continue Oxycodone 5-10 mg PO Q 4 H PRN for moderate to severe pain may change to Q 6 h PRN at discharge Continue Gabapentin 300 mg Q 12 h Estimated Creatinine Clearance: 38 mL/min (A) (based on SCr of 1.22 mg/dL (H)). For 15 days titrate to off Continue bowel regimen as long as taking opioids The plan was discussed in detail with patient +/- family, bedside RN, APMS staff and primary service, who expressed agreement, understanding and comfort with the plan. Thank you for including us in her care. Please call us with any questions or concerns. APMS will continue to follow. SUBJECTIVE CHIEF COMPLAINT: left sided pain/post op pain PRIMARY SERVICE: Thoracic Surgery INTERVAL HPI: Jemima Bradford is a 82 year old female S/P VATS and mediastinal lymph node dissection on 06/13/22 .with Paravertebral nerve blocks at T5 and T7 single injections were performed preoperatively using exparel. L pigtail placed on POD# 9 by primary team, APMS re consulted today to aid in post op pain control. Pain level is 5 at rest 7-10 with ambulation on a scale of 0-10. Is the patient tolerating Physical Therapy?: yes Pain at surgical site? Yes L chest Character: sharp Duration: consistent Radiation: No Relieved: yes Is patient satisfied with pain control: yes Overnight Events: None Overnight Pain Interventions: no Allergy: ALLERGIES Allergen Reactions Biaxin [Clarithromy* Unknown Contrast Dye Shortness of Breath Nickel Unknown Nitrous Oxide Vomiting Synvisc [Hylan G-F * Swelling Thorazine [Chlorpro* Rash MEDICATIONS: Current Facility-Administered Medications Medication Dose Route Frequency rosuvastatin 40 mg tab(s) (CRESTOR) 40 mg ORAL DAILY anastrozole 1 mg tab(s) (ARIMIDEX) 1 mg ORAL DAILY calcium carbonate 1,250 mg tab(s) (OS-MARIA FERNANDA 500) 1,250 mg ORAL DAILY zafirlukast 20 mg tab(s) (ACCOLATE) 20 mg ORAL DAILY melatonin 9 mg tab(s) 9 mg ORAL AT BEDTIME PRN aspirin, enteric coated 81 mg tab(s) 81 mg ORAL DAILY pantoprazole DR 20 mg tab(s) (PROTONIX) 20 mg ORAL BEFORE BREAKFAST DAILY levothyroxine 50 mcg tab(s) (SYNTHROID) 50 mcg ORAL DAILY (6 AM) nitroglycerin sublingual 0.4 mg tab(s) (NITROQUICK) 0.4 mg SUBLINGUAL q 5 MIN PRN ondansetron (PF) 4 mg injection (ZOFRAN) 4 mg INTRAVENOUS q 6 H PRN enoxaparin 40 mg injection (LOVENOX) 40 mg SUBCUTANEOUS q 24 HR NaCl 0.9% iv flush bag 20 mL INTRAVENOUS PRN oxyCODONE IR 5-10 mg tab(s) (ROXICODONE) 5-10 mg ORAL q 4 H PRN gabapentin 300 mg cap(s) (NEURONTIN) 300 mg ORAL q 12 H ipratropium-albuterol 3 mL nebulizer solution (DUONEB) 3 mL INHALATION TID polyethylene glycol 3350 17 g packet (MIRALAX, GLYCOLAX) 17 g ORAL DAILY PRN potassium chloride ER 20 mEq tab(s) (K-DUR, KLOR-CON) 20 mEq ORAL BID amiodarone 400 mg tab(s) (PACERONE) 400 mg ORAL BID guaiFENesin 600 mg ER tab(s) (MUCINEX) 600 mg ORAL q 12 H furosemide 40 mg injection (LASIX) 40 mg INTRAVENOUS DAILY spironolactone 25 mg tab(s) (ALDACTONE) 25 mg ORAL DAILY acetaminophen 650 mg tab(s) (TYLENOL) 650 mg ORAL q 6 H diclofenac 1 % 4 g topical gel (VOLTAREN) 4 g TOPICAL QID lidocaine 4 % 2 Patch (SALONPAS) 2 Patch TRANSDERMAL DAILY AT 9 PM And lidocaine patch - REMOVE OTHER DAILY And lidocaine - VERIFY PATCH OTHER AT BEDTIME methocarbamol 500 mg tab(s) (ROBAXIN) 500 mg ORAL TID senna-docusate 8.6-50 mg 1 tablet (SENNA-S) 1 tablet ORAL BID bisacodyl EC 5 mg tab(s) (DULCOLAX) 5 mg ORAL DAILY PRN OBJECTIVE: PHYSICAL EXAM: Patient Vitals for the past 3 hrs: BP Temp Temp src Pulse Resp SpO2 06/23/22 0751 115/52 36.9 ?C (98.4 ?F) Oral 65 16 93 % 06/23/22 0730 -- -- -- 64 18 96 % Affect: awake, alert, and oriented General Impression: appears comfortable Respiratory Exam: Respirations: Breathing appears normal Thoracostomy tube?: No (more content not included)... Normal [facility] Magnesium SerPl-mCncon 06-23 Magnesium [Mass/Vol] 2.1 mg/dL Normal 1.7-2.3 [facility] Comment on above: Order Comment: Specjose rausch Type: BLOOD SPECIMEN Ordering Facility: [facility] Address: [address] [place] [address] Performed By: #### 5 8410-2 #### [facility] CLIA [id number] [address] [place] [address] ALLIED HEALTH 06-22-2022 ALLIED HEALTH HNO ID: [id number] Author: Chaplain Carmen Service: Spiritual Care Author Type: Railroad Track Mechanic Type: Allied Health Filed: 06/22/2022 3:11 PM Note Text: SPIRITUAL CARE PROGRESS NOTE SERVICE DATE: 06/22/2022 SERVICE TIME: 1440 Introductory spiritual care visit from registration request. Patient was getting ready to get a shower.Railroad Track Mechanic supports will be available in-house on Saturday. To contact the Spiritual Care Department: Please call [phone]. SIGNATURE: Chaplain Héctor, Victoria, [facility] PATIENT NAME: Jemima Bradford DATE: June 22, 2022 TIME: 3:10 PM PAGER/CONTACT #: [phone] [facility] Basic metabolic 2000 panelon 06-22-2022 Anion gap [Moles/Vol] 7 mmol/L Low 9-18 [facility] Comment on above: Order Comment: Speci men Type: BLOOD SPECIMEN Ordering Facility: [facility] Address: [address] [address] Performed By: #### 2 4320-2, #### [facility] CLIA [id number] [address] [place] [address] [place] Calcium [Mass/Vol] 8.7 mg/dL Normal 8.5-10.2 [facility] Comment on above: Order Comment: Speci men Type: BLOOD SPECIMEN Ordering Facility: [facility] Address: [address] [address] Performed By: #### 2 2, #### [facility] CLIA [id number] [address] [place] [address] [place] Chloride [Moles/Vol] 102 mmol/L Normal 97-105 [facility] Comment on above: Order Comment: Speci men Type: BLOOD SPECIMEN Ordering Facility: [facility] Address: [address] [address] Performed By: #### 2 4320-08, #### [facility] CLIA [id number] [address] [place] [address] [place] CO2 [Moles/Vol] 27 mmol/L Normal 22-30 [facility] Comment on above: Order Comment: Speci men Type: BLOOD SPECIMEN Ordering Facility: [facility] Address: [address] [address] Performed By: #### 2 4320-08, #### [facility] CLIA [id number] [address] [place] [address] [place] Creatinine [Mass/Vol] 1.22 mg/dL High 0.58-0.96 [facility] Comment on above: Order Comment: Speci men Type: BLOOD SPECIMEN Ordering Facility: [facility] Address: [address] [place] [address] Performed By: #### 2 2, #### [facility] CLIA [id number] [address] [place] [address] [place] ESTIMATED GLOMERULAR FILTRATION RATE 45 mL/min/1.73m??? Low >=60 [facility] Comment on above: Order Comment: Mary Kay rausch Type: BLOOD SPECIMEN Ordering Facility: [facility] Address: [address] [phone] Result Comment: Ede mated Glomerular Filtration Rate (eGFR) is calculated using the 2020 CKD-EPI creatinine equation. This equation utilizes serum creatinine, sex, and age as parameters. The creatinine assay has traceable calibration to isotope dilution-mass spectrometry. Refer to KDIGO guidelines for clinical interpretation. In patients with unstable renal function, e.g. those with acute kidney injury, the eGFR may not accurately reflect actual GFR. Performed By: #### 2 4321-2, #### [facility] CLIA [id number] [place] [address] [place] Glucose [Mass/Vol] 126 mg/dL High 74-99 [facility] Comment on above: Order Comment: Mary Kay rausch Type: BLOOD SPECIMEN Ordering Facility: [facility] Address: [place] [address] Result Comment: The [place] Diabetes Association (ADA) provides guidance for cutoff [...] Standards of Medical Care in Diabetes 2016, [place] [employer]. Diabetes Care. 2016.39(Suppl 1). Performed By: #### 2 4321-2, #### [facility] CLIA [id number] [place] [address] [place] Potassium [Moles/Vol] 4.7 mmol/L Normal 3.7-5.1 [facility] Comment on above: Order Comment: Mary Kay rausch Type: BLOOD SPECIMEN Ordering Facility: [facility] Address: [address] [id number] Performed By: #### 2 4321-2, #### [facility] CLIA [id number] [address] [place] [address] [place] Sodium [Moles/Vol] 136 mmol/L Normal 136-144 [facility] Comment on above: Order Comment: Speci men Type: BLOOD SPECIMEN Ordering Facility: [facility] Address: [address] [address] Performed By: #### 2 432-2, #### [facility] CLIA [id number] [address] [place] [address] [place] Urea nitrogen [Mass/Vol] 20 mg/dL Normal 7-21 [facility] Comment on above: Order Comment: Speci men Type: BLOOD SPECIMEN Ordering Facility: [facility] Address: [address] [place] [address] Performed By: #### 2 43207-02, #### [facility] CLIA [id number] [address] [place] [address] OF [facility] CASE MANAGEMon 06-22-2022 CASE MANAGEM HNO ID: [id number] Author: Katie Damon RN Service: ? Author Type: Registered Nurse Type: Care Mgt Progress Note Filed: 06/22/2022 11:57 AM Note Text: CARE MANAGEMENT WEEKEND PLANNING NOTE DISCHARGE OR POSSIBLE DISCHARGE Date/Time: 11:53 AM Disposition: home no needs Transport: Car dtr Other Concerns: none Weekend Bench Technician Pager #: [phone] SIGNATURE: Katie Damon RN PATIENT NAME: Jemima Bradford DATE: June 22, 2022 TIME: 11:53 AM PAGER/CONTACT #: [phone] Normal [facility] CBC panel Auto (Bld)on 06-22 Erythrocyte distribution width (RBC) [Ratio] 15.5 % High 11.5-15.0 [facility] Comment on above: Order Comment: Speci men Type: BLOOD SPECIMEN Ordering Facility: [facility] Address: [address] [place] [address] Performed By: #### 5 8410-2 #### [facility] CLIA [id number] [address] [place] [address] Hematocrit (Bld) [Volume fraction] 25.7 % Low 36.0-46.0 [facility] Comment on above: Order Comment: Speci men Type: BLOOD SPECIMEN Ordering Facility: [facility] Address: [address] [place] [address] Performed By: #### 5 8410-2 #### [facility] CLIA [id number] [address] [place] [address] OF [place] Hemoglobin (Bld) [Mass/Vol] 8.2 g/dL Low 11.5-15.5 [facility] Comment on above: Order Comment: Speci men Type: BLOOD SPECIMEN Ordering Facility: [facility] Address: [address] [place] [address] Performed By: #### 5 8410-2 #### [facility] CLIA [id number] [address] [place] [address] MCH (RBC) [Entitic mass] 28.1 pg Normal 26.0-34.0 [facility] Comment on above: Order Comment: Speci men Type: BLOOD SPECIMEN Ordering Facility: [facility] Address: [address] [place] [address] Performed By: #### 5 8410-2 #### [facility] CLIA [id number] [address] [place] [address] OF [place] MCHC (RBC) [Mass/Vol] 31.9 g/dL Normal 30.5-36.0 [facility] Comment on above: Order Comment: Speci men Type: BLOOD SPECIMEN Ordering Facility: [facility] Address: [address] [place] [address] Performed By: #### 5 8410-2 #### [facility] CLIA [id number] [address] [place] [address] MCV (RBC) [Entitic vol] 88.0 fL Normal 80.0-100.0 [facility] Comment on above: Order Comment: Speci men Type: BLOOD SPECIMEN Ordering Facility: [facility] Address: [address] [address] Performed By: #### 5 8410-2 #### [facility] CLIA [id number] [address] [place] [address] [place] Nucleated RBC (Bld) [#/Vol] 10*3/uL Normal <0.01 [facility] Comment on above: Order Comment: Speci men Type: BLOOD SPECIMEN Ordering Facility: [facility] Address: [address] [address] Performed By: #### 5 8410-2 #### [facility] CLIA [id number] [address] [place] [address] [place] Platelet mean volume (Bld) [Entitic vol] 9.6 fL Normal 9.0-12.7 [facility] Comment on above: Order Comment: Speci men Type: BLOOD SPECIMEN Ordering Facility: [facility] Address: [address] [address] Performed By: #### 5 8410-2 #### [facility] CLIA [id number] [address] [place] [address] [place] Platelets (Bld) [#/Vol] 259 10*3/uL Normal 150-400 [facility] Comment on above: Order Comment: Speci men Type: BLOOD SPECIMEN Ordering Facility: [facility] Address: [address] [address] Performed By: #### 5 8410-2 #### [facility] CLIA [id number] [address] [place] [address] [place] RBC (Bld) [#/Vol] 2.92 10*6/uL Low 3.90-5.20 [facility] Comment on above: Order Comment: Speci men Type: BLOOD SPECIMEN Ordering Facility: [facility] Address: [address] [place] [address] Performed By: #### 5 8410-2 #### [facility] CLIA [id number] [address] [place] [address] [place] WBC (Bld) [#/Vol] 6.70 10*3/uL Normal 3.70-11.00 [facility] Comment on above: Order Comment: Speci men Type: BLOOD SPECIMEN Ordering Facility: [facility] Address: [place] [address] Performed By: #### 5 8410-2 #### [facility] CLIA [id number] [address] [id number] [place] [facility] CONSULT PROGon 06-22-2022 CONSULT PROG HNO ID: [id number] Author: Sydni Wolf APRN.CURTIS Service: Pain Management Author Type: Nurse Practitioner Type: Consult Progress Note Filed: 06/22/2022 11:08 AM Note Text: APMS PROGRESS NOTE PATIENT NAME: Jemima Bradford SERVICE DATE: 06/22/2022 SERVICE TIME: 8:20 AM ASSESSMENT Jemima Bradford is a 82 year old female S/P VATS and mediastinal lymph node dissection on 06/13/22 .with Paravertebral nerve blocks at T5 and T7 single injections were performed preoperatively using exparel. L pigtail placed on POD# 8 by primary team, APMS re consulted today to aid in post op pain control. Ms. Bradford is OOB to chair, CT removed. She reports improvement in pain control. She denies any side effects on current regimen. PLAN/Recs: Continue Acetaminophen to 650 mg PO Q 6 h while inpatient, May change to PRN at time of discharge Continue Diclofenac gel QID to L chest for 3-5 days Continue Lidocaine patch to 2 patches QHS while inpatient Continue 500mg PO Q 8hr with holding parameters for muscle spasms for 3-5 days Continue Oxycodone 5-10 mg PO Q 4 H PRN for moderate to severe pain may change to Q 6 h PRN at discharge Continue Gabapentin 300 mg Q 8 h Estimated Creatinine Clearance: 38 mL/min (A) (based on SCr of 1.22 mg/dL (H)). For 15 days titrate to off Continue bowel regimen as long as taking opioids The plan was discussed in detail with patient +/- family, bedside RN, APMS staff and primary service, who expressed agreement, understanding and comfort with the plan. Thank you for including us in her care. Please call us with any questions or concerns. APMS will continue to follow. SUBJECTIVE CHIEF COMPLAINT: left sided pain/post op pain PRIMARY SERVICE: Thoracic Surgery INTERVAL HPI: Jemima Bradford is a 82 year old female S/P VATS and mediastinal lymph node dissection on 06/13/22 .with Paravertebral nerve blocks at T5 and T7 single injections were performed preoperatively using exparel. L pigtail placed on POD# 8 by primary team, APMS re consulted today to aid in post op pain control. Pain level is 4 at rest 7-10 with ambulation on a scale of 0-10. Is the patient tolerating Physical Therapy?: yes Pain at surgical site? Yes L chest Character: sharp Duration: consistent Radiation: No Relieved: yes Is patient satisfied with pain control: yes Overnight Events: None Overnight Pain Interventions: no Allergy: ALLERGIES Allergen Reactions Biaxin [Clarithromy* Unknown Contrast Dye Shortness of Breath Nickel Unknown Nitrous Oxide Vomiting Synvisc [Hylan G-F * Swelling Thorazine [Chlorpro* Rash MEDICATIONS: Adjuvant Pain Medication: See below. Current Facility-Administered Medications Medication Dose Route Frequency rosuvastatin 40 mg tab(s) (CRESTOR) 40 mg ORAL DAILY anastrozole 1 mg tab(s) (ARIMIDEX) 1 mg ORAL DAILY calcium carbonate 1,250 mg tab(s) (OS-MARIA FERNANDA 500) 1,250 mg ORAL DAILY zafirlukast 20 mg tab(s) (ACCOLATE) 20 mg ORAL DAILY melatonin 9 mg tab(s) 9 mg ORAL AT BEDTIME PRN aspirin, enteric coated 81 mg tab(s) 81 mg ORAL DAILY pantoprazole DR 20 mg tab(s) (PROTONIX) 20 mg ORAL BEFORE BREAKFAST DAILY levothyroxine 50 mcg tab(s) (SYNTHROID) 50 mcg ORAL DAILY (6 AM) nitroglycerin sublingual 0.4 mg tab(s) (NITROQUICK) 0.4 mg SUBLINGUAL q 5 MIN PRN ondansetron (PF) 4 mg injection (ZOFRAN) 4 mg INTRAVENOUS q 6 H PRN enoxaparin 40 mg injection (LOVENOX) 40 mg SUBCUTANEOUS q 24 HR NaCl 0.9% iv flush bag 20 mL INTRAVENOUS PRN oxyCODONE IR 5-10 mg tab(s) (ROXICODONE) 5-10 mg ORAL q 4 H PRN gabapentin 300 mg cap(s) (NEURONTIN) 300 mg ORAL q 12 H ipratropium-albuterol 3 mL nebulizer solution (DUONEB) 3 mL INHALATION TID polyethylene glycol 3350 17 g packet (MIRALAX, GLYCOLAX) 17 g ORAL DAILY PRN metoprolol tartrate (short acting) 25 mg tab(s) (LOPRESSOR) 25 mg ORAL q 12 H potassium chloride ER 20 mEq tab(s) (K-DUR, KLOR-CON) 20 mEq ORAL BID amiodarone 400 mg tab(s) (PACERONE) 400 mg ORAL BID guaiFENesin 600 mg ER tab(s) (MUCINEX) 600 mg ORAL q 12 H furosemide 40 mg injection (LASIX) 40 mg INTRAVENOUS DAILY spironolactone 25 mg tab(s) (ALDACTONE) 25 mg ORAL DAILY acetaminophen 650 mg tab(s) (TYLENOL) 650 mg ORAL q 6 H diclofenac 1 % 4 g topical gel (VOLTAREN) 4 g TOPICAL QID lidocaine 4 % 2 Patch (SALONPAS) 2 Patch TRANSDERMAL DAILY AT 9 PM And lidocaine patch - REMOVE OTHER DAILY And lidocaine - VERIFY PATCH OTHER AT BEDTIME methocarbamol 500 mg tab(s) (ROBAXIN) 500 mg ORAL TID senna-docusate 8.6-50 mg 1 tablet (SENNA-S) 1 tablet ORAL BID bisacodyl EC 5 mg tab(s) (DULCOLAX) 5 mg ORAL DAILY PRN OBJECTIVE: PHYSICAL EXAM: BP (!) 107/44 Pulse (!) 58 Temp 36.9 ?C (98.4 ?F) (Oral) Resp 16 Wt 84.2 kg (185 lb 9.6 oz) SpO2 96% BMI 31.86 kg/m? Affect: awake, alert, and oriented General Impression: appears comfortable Respiratory Exam: Respirations: Breathing appears normal Thor (more content not included)... Normal [facility]esium [facility] [Mass/Vol] 2.1 mg/dL Normal 1.7-2.3 [facility] Comment on above: Order Comment: Speci men Type: BLOOD SPECIMEN Ordering Facility: [facility] Address: [address] [place] [address] Performed By: #### 2 4321-2, 43216-3 #### [facility] [id number] [address] OF [facility] NURSING PROGon 06-22-2022 NURSING PROG HNO ID: [id number] Author: Aaron Rodriguez RN Service: ? Author Type: Registered Nurse Type: Nursing Progress Note Filed: 06/22/2022 6:44 PM Note Text: Other: 1125 Patient sinus nixon on telemetry. A/Ox3, continues to complain of left sided pain, robaxin and oxy given as ordered. Na 136, K 4.7, bun/creat 20/1.22, Mg 2.1, WBC 6.70, HH 8.2/25.7, platelets 259. Ambulated entire pod 2 consecutive times this AM. IS encouraged. [address]sg's intact. Okay to shower this afternoon per thoracic PA Reynaldo. 2 lap sites REBECCA with topical skin glue. PAS raymundo bilaterally as ordered. 2 view CXR completed this AM. Potential discharge to home tomorrow per thoracic team. VSS, meds given as ordered. Patient in no distress, will continue to closely monitor and assess. 1205 Bradycardic today, HR 40s at times while sleeping, asymptomatic. Poor air exchange on the left on auscultation. IS encouraged. 1415 Patient ambulated entire pod on her own multiple times with no assistive device. Reynaldo BLOOM aware that patient has been bradycardic, appears junctional at times with no p-wave. HR 60s now with definitive p-waves. 1530 Patient showered, dressings changed. Tolerated well. 1845 Ambulated entire pod again on her own. SR on telemetry. Oxy IR given for pain. Assessment unchanged, patient in no distress. Normal [facility] XR CHEST 2V FRONTAL/LATon XR CHEST 2V FRONTAL/LAT * * *Final Report* * * DATE OF EXAM: Jun 22 2022 8:56AM FVX [id number] - XR CHEST 2V FRONTAL/LAT / PROCEDURE REASON: Post-operative / post-procedure assessment, asymptomatic * * * * Physician Interpretation * * * * FRONTAL AND LATERAL CHEST RADIOGRAPHS HISTORY: Post-operative / post-procedure assessment, asymptomatic. TECHNIQUE: Frontal and lateral views of the chest were obtained. COMPARISON: Chest CT previous day RESULT: Status post median sternotomy. Left upper lobectomy. Left-sided chest tube no longer seen. Left-sided pleural effusion unchanged. Atelectasis left lung. Right lung clear. No definite pneumothorax. Left chest wall emphysema. IMPRESSION: Please see result. Physical Chemistry Professor: AB Transcribe Date/Time: Jun 22 2022 1:44P Dictated by : KINJAL MARIE MD This examination was interpreted and the report reviewed and electronically signed by: KINJAL MARIE MD on Jun 22 2022 1:45PM EST [id number] [facility] HNO ID: [id number] Author: ABBIE Chang Service: ? Author Type: Technologist Type: [facility] Filed: 06/21/2022 11:24 AM Note Text: Radiology Service Progress Note PATIENT NAME: Jemima Bradford DATE OF SERVICE: June 21, 2022 TIME: 11:24 AM PATIENT IDENTITY VERIFICATION COMPLETED USING TWO (2) IDENTIFIERS: Name and Date of confirmed by patient verbally. FALL SCREENING: Has the patient had 2 falls in the last year or 1 fall with injury or currently using an Ambulatory Assistive Device (Walker, Cane, Wheelchair, Crutches, etc.)? Inpatient: Screened on floor PATIENT GENDER DATA: Female. status: : No status: NO. PATIENT RELEVANT IMPLANT DATA REVIEWED: Not Applicable RADIOLOGY DEPARTMENT: CT; Exam(s) Completed: Chest PERIPHERAL IV DATA: Not applicable SIGNED BY: ABBIE Chang June 21, 2022 11:24 AM [facility] HNO ID: [id number] Author: RT Phoenix(Mikala) Service: ? Author Type: Technologist Type: Allied Health Filed: 06/21/2022 7:51 AM Note Text: Radiology Service Progress Note PATIENT NAME: Jemima Bradford DATE OF SERVICE: June 21, 2022 TIME: 7:51 AM PATIENT IDENTITY VERIFICATION COMPLETED USING TWO (2) IDENTIFIERS: Name and Date of confirmed by patient verbally and Name and Date of confirmed by identification band. FALL SCREENING: Has the patient had 2 falls in the last year or 1 fall with injury or currently using an Ambulatory Assistive Device (Walker, Cane, Wheelchair, Crutches, etc.)? Inpatient: Screened on floor PATIENT GENDER DATA: Female. status: : No status: NO. PATIENT RELEVANT IMPLANT DATA REVIEWED: Not Applicable RADIOLOGY DEPARTMENT: General X-ray: Exam(s) Completed: Chest X-Ray PERIPHERAL IV DATA: Not applicable SIGNED BY: Sri Cheatham RT(R) June 21, 2022 7:51 AM Normal [facility] Basic metabolic 2000 panelon 06-21-2022 Anion gap [Moles/Vol] 9 mmol/L Normal 9-18 [facility] Comment on above: Order Comment: Speci men Type: BLOOD SPECIMEN Ordering Facility: [facility] Address: [address] [place] [address] Performed By: #### 5 8410-2 #### [facility] CLIA [id number] [address] [place] [address] [place] Calcium [Mass/Vol] 8.8 mg/dL Normal 8.5-10.2 [facility] Comment on above: Order Comment: Speci men Type: BLOOD SPECIMEN Ordering Facility: [facility] Address: [address] [place] [address] Performed By: #### 5 8410-2 #### [facility] CLIA [id number] [address] [place] [address] [place] Chloride [Moles/Vol] 100 mmol/L Normal 97-105 [facility] Comment on above: Order Comment: Speci men Type: BLOOD SPECIMEN Ordering Facility: [facility] Address: [address] [place] [address] Performed By: #### 5 8410-2 #### [facility] CLIA [id number] [address] [place] [address] [place] CO2 [Moles/Vol] 27 mmol/L Normal 22-30 [facility] Comment on above: Order Comment: Speci men Type: BLOOD SPECIMEN Ordering Facility: [facility] Address: [address] [place] [address] Performed By: #### 5 8410-2 #### [facility] CLIA [id number] [address] [place] [address] [place] Creatinine [Mass/Vol] 1.13 mg/dL High 0.58-0.96 [facility] Comment on above: Order Comment: Mary Kay rausch Type: BLOOD SPECIMEN Ordering Facility: [facility] Address: [address] [address] Performed By: #### 5 8410-2 #### [facility] CLIA [id number] [address] [place] [address] [place] ESTIMATED GLOMERULAR FILTRATION RATE 49 mL/min/1.73m??? Low >=60 [facility] Comment on above: Order Comment: Mary Kay rausch Type: BLOOD SPECIMEN Ordering Facility: [facility] Address: [address] [place] [address] Result Comment: Dee mated Glomerular Filtration Rate (eGFR) is calculated using the 2020 CKD-EPI creatinine equation. This equation utilizes serum creatinine, sex, and age as parameters. The creatinine assay has traceable calibration to isotope dilution-mass spectrometry. Refer to KDIGO guidelines for clinical interpretation. In patients with unstable renal function, e.g. those with acute kidney injury, the eGFR may not accurately reflect actual GFR. Performed By: #### 5 8410-2 #### [facility] CLIA [id number] [address] [place] [address] [place] Glucose [Mass/Vol] 116 mg/dL High 74-99 [facility] Comment on above: Order Comment: Mary Kay rausch Type: BLOOD SPECIMEN Ordering Facility: [facility] Address: [address] [place] [address] Result Comment: The [place] Diabetes Association (ADA) provides guidance for cutoff [...] Standards of Medical Care in Diabetes 2016, [place] [employer]. Diabetes Care. 2016.39(Suppl 1). Performed By: #### 5 8410-2 #### [facility] CLIA [id number] [address] [place] [address] [place] Potassium [Moles/Vol] 4.3 mmol/L Normal 3.7-5.1 [facility] Comment on above: Order Comment: Mary Kay rausch Type: BLOOD SPECIMEN Ordering Facility: [facility] Address: [address] [place] [address] Performed By: #### 5 8410-2 #### [facility] CLIA [id number] [address] [place] [address] [place] Sodium [Moles/Vol] 136 mmol/L Normal 136-144 [facility] Comment on above: Order Comment: Mary Kay rausch Type: BLOOD SPECIMEN Ordering Facility: [facility] Address: [address] [place] [address] Performed By: #### 5 8410-2 #### [facility] CLIA [id number] [address] [place] [address] [place] Urea nitrogen [Mass/Vol] 20 mg/dL Normal 7-21 [facility] Comment on above: Order Comment: Mary Kay rausch Type: BLOOD SPECIMEN Ordering Facility: [facility] Address: [address] [place] [address] Performed By: #### 5 8410-2 #### [facility] CLIA [id number] [address] [place] [address] OF [place] CASE MANAGEMon 06-21-2022 CASE MANAGEM HNO ID: [id number] Author: Katie Damon RN Service: ? Author Type: Registered Nurse Type: Care Mgt Progress Note Filed: 06/21/2022 10:06 AM Note Text: CARE MANAGEMENT PROGRESS NOTE SERVICE DATE: 06/21/2022 SERVICE TIME: 10:03 AM LOS: 8 days Needs Prior to Discharge: Discharge Prescriptions Discussed dc plan with pt and Pa Whitfield. At this time no hhc will likely be needed. She still has two chest tubes. Walking the unit many times daily. Pt agrees with the plan has supportive dtr and . Canceled hhc ref. SIGNATURE: Katie Damon RN PATIENT NAME: Jemima Bradford DATE: June 21, 2022 TIME: 10:03 AM PAGER/CONTACT #: [phone] Normal [facility] CBC panel Auto (Bld)on 06-21 Erythrocyte distribution width (RBC) [Ratio] 15.9 % High 11.5-15.0 [facility] Comment on above: Order Comment: Speci men Type: BLOOD SPECIMEN Ordering Facility: [facility] Address: [address] [place] [address] Performed By: #### 5 8410-2 #### [facility] CLIA [id number] [address] [place] [address] [place] Hematocrit (Bld) [Volume fraction] 26.9 % Low 36.0-46.0 [facility] Comment on above: Order Comment: Speci men Type: BLOOD SPECIMEN Ordering Facility: [facility] Address: [address] [place] [address] Performed By: #### 5 8410-2 #### [facility] CLIA [id number] [address] [place] [address] [place] Hemoglobin (Bld) [Mass/Vol] 9.1 g/dL Low 11.5-15.5 [facility] Comment on above: Order Comment: Speci men Type: BLOOD SPECIMEN Ordering Facility: [facility] Address: [address] [place] [address] Performed By: #### 5 8410-2 #### [facility] CLIA [id number] [address] [place] [address] [place] MCH (RBC) [Entitic mass] 29.6 pg Normal 26.0-34.0 [facility] Comment on above: Order Comment: Speci men Type: BLOOD SPECIMEN Ordering Facility: [facility] Address: [address] [place] [address] Performed By: #### 5 8410-2 #### [facility] CLIA [id number] [address] [place] [address] [place] MCHC (RBC) [Mass/Vol] 33.8 g/dL Normal 30.5-36.0 [facility] Comment on above: Order Comment: Speci men Type: BLOOD SPECIMEN Ordering Facility: [facility] Address: [address] [address] Performed By: #### 5 8410-2 #### [facility] CLIA [id number] [address] [place] [address] [place] MCV (RBC) [Entitic vol] 87.6 fL Normal 80.0-100.0 [facility] Comment on above: Order Comment: Speci men Type: BLOOD SPECIMEN Ordering Facility: [facility] Address: [address] [address] Performed By: #### 5 8410-2 #### [facility] CLIA [id number] [address] [place] [address] [place] Nucleated RBC (Bld) [#/Vol] 0.02 10*3/uL High <0.01 [facility] Comment on above: Order Comment: Speci men Type: BLOOD SPECIMEN Ordering Facility: [facility] Address: [address] [address] Performed By: #### 5 8410-2 #### [facility] CLIA [id number] [address] [place] [address] [place] Platelet mean volume (Bld) [Entitic vol] 11.1 fL Normal 9.0-12.7 [facility] Comment on above: Order Comment: Speci men Type: BLOOD SPECIMEN Ordering Facility: [facility] Address: [address] [address] Performed By: #### 5 8410-2 #### [facility] CLIA [id number] [address] [place] [address] [place] Platelets (Bld) [#/Vol] 236 10*3/uL Normal 150-400 [facility] Comment on above: Order Comment: Speci men Type: BLOOD SPECIMEN Ordering Facility: [facility] Address: [address] [address] Performed By: #### 5 8410-2 #### [facility] CLIA [id number] [address] [place] [address] [place] RBC (Bld) [#/Vol] 3.07 10*6/uL Low 3.90-5.20 [facility] Comment on above: Order Comment: Speci men Type: BLOOD SPECIMEN Ordering Facility: [facility] Address: [address] [place] [address] Performed By: #### 5 8410-2 #### [facility] CLIA [id number] [address] [place] WBC (Bld) [#/Vol] 7.03 10*3/uL Normal 3.70-11.00 [facility] Comment on above: Order Comment: Speci men Type: BLOOD SPECIMEN Ordering Facility: [facility] Address: [address] [place] [address] Performed By: #### 5 8410-2 #### [facility] CLIA [id number] [address] [place] [address] CONSULT PROGon 06-21-2022 CONSULT PROG HNO ID: [id number] Author: Sydni Wolf APRN.LAMBSKIN TRIMMER Service: Pain Management Author Type: Nurse Practitioner Type: Consult Progress Note Filed: 06/21/2022 1:06 PM Note Text: APMS PROGRESS NOTE PATIENT NAME: Jemima Bradford SERVICE DATE: 06/21/2022 SERVICE TIME: 09:55 AM ASSESSMENT Jemima Bradford is a 82 year old female S/P VATS and mediastinal lymph node dissection on 06/13/22 .with Paravertebral nerve blocks at T5 and T7 single injections were performed preoperatively using exparel. L pigtail placed on POD# 7 by primary team, APMS re consulted today to aid in post op pain control. Ms. Bradford is OOB to chair, family at bedside, she reports aching and constant pain around CT site + tightness on surrounding muscles. She is able to ambulate in the unit, she is currently in RA PLAN/Recs: Changed Acetaminophen to 650 mg PO Q 6 h Changed flector patch BID to Diclofenac gel QID to L chest Increased lidocaine patch to 2 patches QHS Added Robaxin 500mg IV X 2 does then 500mg PO q8hr with holding parameters for muscle spasms Continue Oxycodone 5-10 mg PO Q 4 H PRN for moderate to severe pain Continue Gabapentin 300 mg Q 12 h Estimated Creatinine Clearance: 41 mL/min (A) (based on SCr of 1.13 mg/dL (H)). Continue bowel regimen as long as taking opioids The plan was discussed in detail with patient +/- family, bedside RN, APMS staff and primary service, who expressed agreement, understanding and comfort with the plan. Thank you for including us in her care. Please call us with any questions or concerns. APMS will continue to follow. SUBJECTIVE CHIEF COMPLAINT: left sided pain PRIMARY SERVICE: Thoracic Surgery INTERVAL HPI: Jemima Bradford is a 82 year old female S/P VATS and mediastinal lymph node dissection on 06/13/22 .with Paravertebral nerve blocks at T5 and T7 single injections were performed preoperatively using exparel. L pigtail placed on POD# 7 by primary team, APMS re consulted today to aid in post op pain control. Pain level is 4 at rest 7-10 with ambulation on a scale of 0-10. Is the patient tolerating Physical Therapy?: yes Pain at surgical site? Yes L chest Character: sharp Duration: consistent Radiation: No Relieved: yes Is patient satisfied with pain control: yes Overnight Events: None Overnight Pain Interventions: no Allergy: ALLERGIES Allergen Reactions Biaxin [Clarithromy* Unknown Contrast Dye Shortness of Breath Nickel Unknown Nitrous Oxide Vomiting Synvisc [Hylan G-F * Swelling Thorazine [Chlorpro* Rash MEDICATIONS: Adjuvant Pain Medication: See below. Current Facility-Administered Medications Medication Dose Route Frequency rosuvastatin 40 mg tab(s) (CRESTOR) 40 mg ORAL DAILY anastrozole 1 mg tab(s) (ARIMIDEX) 1 mg ORAL DAILY calcium carbonate 1,250 mg tab(s) (OS-MARIA FERNANDA 500) 1,250 mg ORAL DAILY zafirlukast 20 mg tab(s) (ACCOLATE) 20 mg ORAL DAILY melatonin 9 mg tab(s) 9 mg ORAL AT BEDTIME PRN aspirin, enteric coated 81 mg tab(s) 81 mg ORAL DAILY pantoprazole DR 20 mg tab(s) (PROTONIX) 20 mg ORAL BEFORE BREAKFAST DAILY levothyroxine 50 mcg tab(s) (SYNTHROID) 50 mcg ORAL DAILY (6 AM) nitroglycerin sublingual 0.4 mg tab(s) (NITROQUICK) 0.4 mg SUBLINGUAL q 5 MIN PRN docusate sodium 100 mg cap(s) (COLACE) 100 mg ORAL BID ondansetron (PF) 4 mg injection (ZOFRAN) 4 mg INTRAVENOUS q 6 H PRN enoxaparin 40 mg injection (LOVENOX) 40 mg SUBCUTANEOUS q 24 HR NaCl 0.9% iv flush bag 20 mL INTRAVENOUS PRN oxyCODONE IR 5-10 mg tab(s) (ROXICODONE) 5-10 mg ORAL q 4 H PRN gabapentin 300 mg cap(s) (NEURONTIN) 300 mg ORAL q 12 H ipratropium-albuterol 3 mL nebulizer solution (DUONEB) 3 mL INHALATION TID polyethylene glycol 3350 17 g packet (MIRALAX, GLYCOLAX) 17 g ORAL DAILY PRN metoprolol tartrate (short acting) 25 mg tab(s) (LOPRESSOR) 25 mg ORAL q 12 H potassium chloride ER 20 mEq tab(s) (K-DUR, KLOR-CON) 20 mEq ORAL BID amiodarone 400 mg tab(s) (PACERONE) 400 mg ORAL BID guaiFENesin 600 mg ER tab(s) (MUCINEX) 600 mg ORAL q 12 H furosemide 40 mg injection (LASIX) 40 mg INTRAVENOUS DAILY spironolactone 25 mg tab(s) (ALDACTONE) 25 mg ORAL DAILY acetaminophen 650 mg tab(s) (TYLENOL) 650 mg ORAL q 6 H diclofenac 1 % 4 g topical gel (VOLTAREN) 4 g TOPICAL QID lidocaine 4 % 2 Patch (SALONPAS) 2 Patch TRANSDERMAL DAILY AT 9 PM And [START ON 06/22/2022] lidocaine patch - REMOVE OTHER DAILY And lidocaine - VERIFY PATCH OTHER AT BEDTIME methocarbamol 0.5 g injection (ROBAXIN) 0.5 g INTRAVENOUS q 8 H [START ON 06/22/2022] methocarbamol 500 mg tab(s) (ROBAXIN) 500 mg ORAL TID OBJECTIVE: PHYSICAL EXAM: BP 101/59 Pulse 67 Temp 36.8 ?C (98.2 ?F) (Oral) Resp 18 Wt 84.2 kg (185 lb 9.6 oz) SpO2 94% BMI 31.86 kg/m? Affect: awake, alert, and oriented General Impression: appears comfortable Respiratory Exam: Respirations: Breathing appears normal Thoracostomy tube?: Yes, how m (more content not included)... Normal [facility] CT CHEST WO IVCONon 06-21-20 CT CHEST WO IVCON * * *Final Report* * * DATE OF EXAM: Jun 21 2022 11:31AM [facility] 0541 - CT CHEST WO IVCON / PROCEDURE REASON: Aspiration * * * * Physician Interpretation * * * * EXAMINATION: CHEST CT WITHOUT CONTRAST CLINICAL HISTORY: Aspiration Technique: Spiral CT acquisition of the chest from the thoracic inlet to the upper abdomen without contrast. MQ: [id number]_6 CT Radiation dose: Integrated Dose-length product (DLP) for this visit = 259 mGy*cm CT Dose Reduction Employed: Automated exposure control (AEC) Comparison: 06/18/2022 RESULT: Limitations: None. Lines, tubes, and devices: There are left-sided chest tube and a new pigtail catheter extending into the anterior left upper chest. Lung parenchyma, pleura and airways: There are postsurgical changes from a left upper lobectomy. The previous examination demonstrated a large hydropneumothorax. The pneumothorax component demonstrates near complete resolution and replaced by complex fluid. There are foci of air within the left pleural cavity in this patient with multiple chest tubes and recent surgery. The previously identified lingular opacification demonstrates improvement. The right lung is demonstrates a stable 7 mm apical nodule image 5:35 (no change previous image 30). Lower neck, lymph nodes, and mediastinum: There is no mediastinal lymphadenopathy by size criteria. Heart, pericardium, and thoracic vessels: The thoracic aorta and main pulmonary artery are normal in caliber. The cardiac chambers are normal in size. Coronary artery atherosclerotic calcifications are noted, although the study is not optimized for coronary assessment. No pericardial effusion or thickening. Bones and soft tissues: There is subcutaneous air along the left lateral chest wall, the left supraclavicular region and the left axilla. There are degenerative changes. There are no aggressive osseous lesions identified. There is a stable left seventh rib fracture. Upper abdomen: There is a hiatal hernia. Machine Brush Maker (topogram) images: IMPRESSION: 1. The previously identified left hydropneumothorax demonstrate improvement of the pneumothorax component with near complete resolution. This has been replaced by complex fluid presumably hemorrhagic in nature. The patient is status post interval placement of a left anterior and superior pigtail catheter. 2. No significant interval change 7 mm right apical nodule. Consider follow-up examination in 3 months. 3. Interval improvement of lingular opacification. ACTIONABLE RESULT: FOLLOW-UP Acuity: Actionable Findings: Thoracic-Other Routing Code: CT_1 Recommendation: CT Chest WO IVCON Time Frame: Additional evaluation as described in the impression COMMUNICATION: Results will be communicated with the ordering provider via [employer] staff message or phone message by Imaging Support Services within 2 business days of report finalization. Algorithms for management of incidental imaging findings can be found on the [facility] Intranet Sharepoint site at: [email or web address] [email or web address] Physical Chemistry Professor: AB Transcribe Date/Time: Jun 21 2022 11:33A Dictated by : STEVEN FOSTER MD This examination was interpreted and the report reviewed and electronically signed by: STEVEN FOSTER MD on Jun 21 2022 11:46AM EST [id number] ACTIONABLE Invalid Interpretation Code [facility] Magnesium SerPl-mCncon 06-21 Magnesium [Mass/Vol] 2.1 mg/dL Normal 1.7-2.3 [facility] Comment on above: Order Comment: Speci men Type: BLOOD SPECIMEN Ordering Facility: [facility] Address: [address] [place] [id number] Performed By: #### 5 8410-2 #### [facility] CLIA [id number] [place] [address] [place] NURSING PROGon 06-21-2022 NURSING PROG HNO ID: [id number] Author: Stacie Bradford RN Service: ? Author Type: Registered Nurse Type: Nursing Progress Note Filed: 06/21/2022 9:37 AM Note Text: 0936 - Pt completed 5 laps around pod on room air, pulse ox read 95% upon returning to room. Pt up to chair to have breakfast at this time. Normal [facility] THERAPY NTon 06-21-2022 THERAPY NT HNO ID: [id number] Author: Asya Alaniz OT/L Service: Occupational Therapy Author Type: Occupational Therapist Type: Therapy (PT/OT/Speech/Resp) Filed: 06/21/2022 1:09 PM Note Text: Occupational Therapy Treatment SERVICE DATE: 06/21/2022 SERVICE TIME: 1201 to 1225 ROOM: [place] [address] Recommended Discharge Disposition: Home Recommended Discharge Disposition Comments: Patient goals met; spouse to assist at home PRN. Anticipated Discharge Needs: Physical Assist at Home Physical Assist at Home for: Cleaning;Laundry;Meals;Se lf Care;Shopping;Transportat ion Recommended Discharge Equipment: Sock Aid (Patient denies need - reports spouse to assist.) OT 6 Clicks Score: 22 Precautions/Activity Restrictions: Bed/Chair Alarm;Abdominal;Fall Risk;Lines/Tubes/Drains Precaution/Activity Restriction Comments: chest tube Isolation Type: None Current Hospital Course: s/p robotic thoracoscopy/lobectomy with cryoanalgesia procedure segments 5-7 Reason for Hospital Admission: Left upper lobe adenocarcinoma Relevant Past Medical History: HTN, CAD, arthritis, asthma, right TKR, JENNIFER, CVA, aortic valve repair Response to Therapy Interventions: Good participation in activities, Pain Occupational Therapy Problem List: Pain;Impaired Self Care;Functional Mobility Impairment Treatment Interventions: Education;Self Care / Home Management;Energy Conservation Training;Joint Mobility;Functional Mobility Training;Pain Management Home Environment Patient Lives With: Significant Other Assistance Available: 24-Hour Entry To Home: Stairs;With Rail Number Of Stairs Into Home: 8 Number Of Stairs To Bed/Bath: 0 Tub/Shower Type: tub shower (has tub bench but not currently using). Laundry: basement - patient completes Equipment Owned: Cane;Wheeled Walker;Shower Chair;Elevated Toilet Seat;Wheelchair - Manual;Long Handled Shoe Horn;Grab Bars-Shower;Grab Bars-Toilet;Hand Held Shower;Foreign Language Interpreter;Long Handled Sponge Prior Functional Level: Within Functional Limits Prior Functional Level Comments: Patient reports previous independence with ADLs/IADLs, ambulates without AD, drives Baseline Cognition: Oriented to self;Oriented to place;Oriented to time Occupational Factors Life Roles: Spouse/Significant Other Identified Strengths: Good Support System Identified Barriers: Difficulty with ADLs/IADLs Patient Report: Patient agreeable to OT tx tasks. CURRENT FUNCTIONAL STATUS: Most recent performance Current Activities of Daily Living Assist Level Additional Information Feeding Modified Independent Grooming Stand By Assistance (standing at sink; hand hygiene and oral care.) Bathing Upper Body Supervision Bathing Lower Body Minimal Assistance (uses LH sponge at home.) Dressing Upper Body Set Up Dressing Lower Body Minimal Assistance (has research epidemiologist and LH shoehorn at home; denies need for sock aid - reports spouse to assist.) Toileting Stand By Assistance Instrumental Activities of Daily Living Assist Level Additional Information Meal/Beverage Prep Cleaning Laundry Medication Management with Strategies Functional Mobility Assist Level Additional Information Rolling Supine to Sit Sit to Supine Scooting Sit to Stand Supervision Stand to Sit Supervision Bed to Chair Stand By Assistance Stepping Wheeled Walker Toilet/Commode Minimal Assistance (ETS placed over toilet after assist level - patient reports she has an ETS over her toilet at home as well.) Shower Functional Mobility Stand By Assistance Wheeled Walker Blank borrero indicate activity not attempted Learning/Educational Needs: Discharge Plan;Functional Activities/Mobility;Plan of Care;Precautions;Self Care Goals for Plan of Care: Patient/Caregiver Goals: Reduce ADL/IADL barriers Goals: Patient will demonstrate progress with self-care, cognitive and/or coping needs identified to allow safe discharge to home with available support and/or physical assistance. Progress Toward Goals: Progressing as expected Rehab Potential: Good Patient will be discontinued from Occupational Therapy when no further skilled needs are identified in this setting. PLAN: OT Frequency: Discontinue therapy services Reasons Therapy Services Discontinued: Goals met Plan of Care developed with: Patient;Family TREATMENT INTERVENTIONS: Therapy Diagnosis: Reduced mobility-other;Decreased activities of daily living (ADL) Interventions Provided: Self Correction Management (66492) Self Correction Management (66070) Treatment Minutes: 24 $ Self Correction Management (43154) Billed Units: 2 units Training AND education provided in: Activity adaption / compensatory strategies, Adaptive equipment / DME, Benefits of in-hospital mobility, Discharge planning, Functional mobility involving ADLs, Energy conservation, Lower extremity dressing, Lower extremity bathing, Role of Occupational Therapy, Toileting , Transfer - Bed to chair, Transfer - Sit to (more content not included)... Normal [facility] THERAPY NT HNO ID: [id number] Author: Juan David Meredith, PT Service: Physical Therapy Author Type: Physical Therapist Type: Therapy (PT/OT/Speech/Resp) Filed: 06/21/2022 1:02 PM Note Text: Physical Therapy Treatment SERVICE DATE: 06/21/2022 SERVICE TIME: 1142 to 1154 ROOM: [place] [address] Recommended Discharge Disposition: Home Recommended Discharge Disposition Comments: Patient ambulating well independently with no need for future PT Anticipated Discharge Needs: Physical Assist at Home Physical Assist at Home for: Meals;Shopping;Transporta tion;Laundry;Cleaning PT 6 Clicks Score: 24 Precautions/Activity Restrictions: Bed/Chair Alarm;Abdominal;Fall Risk;Lines/Tubes/Drains Precaution/Activity Restriction Comments: chest tube Isolation Type: None Current Hospital Course: s/p robotic thoracoscopy/lobectomy with cryoanalgesia procedure segments 5-7 Reason for Hospital Admission: Left upper lobe adenocarcinoma Relevant Past Medical History: HTN, CAD, arthritis, asthma, right TKR, JENNIFER, CVA, aortic valve repair Response to Therapy Interventions: Good participation in activities, Improved tolerance for activity, Notable progression with functional activities/skills Assessment Comments: Patient demonstrating functional independence at this time and very self motivated ambulating frequently with nursing staff. Patient does not present with any further skilled PT needs at this time. Continue skilled needs due to: Continued monitoring of vital signs during mobility required, Functional mobility/skill impairments Physical Therapy Problem List: Pain;Decreased Activity Tolerance;Decreased Range Of Motion;Decreased Strength;Functional Mobility Impairment;Balance Impaired Treatment Interventions: Education;Strengthening;F unctional Mobility Training;Balance Training;Neuromuscular Re-education;Pain Management;Energy Conservation Training Plan for next visit: Bed mobility, Fall prevention, Gait training, Exercise instruction/handout, Pre-gait activities, Sit to Stand Transfers, Standing Tolerance, Sitting balance, Standing Balance, Walker Training Home Environment Patient Lives With: Significant Other Assistance Available: 24-Hour Entry To Home: Stairs;With Rail Number Of Stairs Into Home: 8 Number Of Stairs To Bed/Bath: 0 Tub/Shower Type: tub shower (has tub bench but not currently using). Laundry: basement - patient completes Equipment Owned: Cane;Wheeled Walker;Shower Chair;Elevated Toilet Seat;Wheelchair - Manual;Long Handled Shoe Horn;Grab Bars-Shower;Grab Bars-Toilet;Hand Held Shower;Foreign Language Interpreter;Long Handled Sponge Prior Functional Level: Within Functional Limits Prior Functional Level Comments: Patient reports previous independence with ADLs/IADLs, ambulates without AD, drives Baseline Cognition: Oriented to self;Oriented to place;Oriented to time Patient Report: Patient pleasant and agreeable to PT treatment CURRENT FUNCTIONAL STATUS: Most recent performance Current Functional Mobility Assist Level Additional Information Rolling Stand By Assistance Supine to Sit Minimal Assistance (handheld assist for uprighting of trunk) Sit to Supine Scooting Stand By Assistance Sit to Stand Stand By Assistance Stand to Sit Stand By Assistance Bed to Chair Toilet/Commode Gait Stand By Assistance Gait Device: Wheeled Walker Gait Distance (feet): 1000 ft (5 laps) Stairs Curb Step Car Transfer Blank borrero indicate activity not attempted General Deviations/Observations: [place] decreased;Difficulty changing direction/turning;Flexed trunk posture;Step length decreased Balance: Static Sitting;Dynamic Sitting;Static Standing;Dynamic Standing Static Sitting Balance: Normal Patient able to maintain steady balance without handhold support Dynamic Sitting Balance: Good Patient accepts moderate challenge, able to maintain balance while picking up object off floor Static Standing Balance: Good Patient able to maintain balance without handhold support, limited postural sway Dynamic Standing Balance: Good Patient accepts moderate challenge, able to maintain balance while picking up object off floor Activity Tolerance: Standing Activity Standing Activity: gait Standing Activity Tolerance (in minutes): 10 JH-HLM: 8: Walk 250 feet or more Learning/Educational Needs: Discharge Plan;Functional Activities/Mobility;Pain Management;Plan of Care;Precautions;Rehabili tation Techniques and Procedures;Safety Goals for Plan of Care: Patient /Caregiver Goals: Go Home Goals: Patient will demonstrate progress with functional mobility to allow safe discharge to home with available support and/or physical assistance. Transfer Supine to/from Sit with: Stand By Assistance Transfer Sit to/from Stand with: Stand By Assistance Ambulate with: Stand By Assistance Distance: 100 ft Device: Wheeled Walker Ambulate Up and Down Steps with: Contact Guard Assistance Number of Steps: 8 Device: Samson (more content not included)... Normal [facility] XR CHEST 1V FRONTALon 2021 XR CHEST 1V FRONTAL * * *Final Report* * * DATE OF EXAM: Jun 21 2022 7:51AM FVX 5290 - XR CHEST 1V FRONTAL / PROCEDURE REASON: Post-operative / post-procedure assessment, asymptomatic * * * * Physician Interpretation * * * * EXAMINATION: CHEST RADIOGRAPH (SINGLE VIEW AP OR PA) CLINICAL HISTORY: Post-operative / post-procedure assessment, asymptomatic MQ: XC1_5 Comparison: Chest x-ray 06/20/2022 RESULT: Lines, tubes, and devices: Left-sided chest tube with tip overlying the apex. Other chest tube overlying the mid lung. Postoperative changes in the sternum. Lungs and pleura: No obvious pneumothorax. Opacification throughout the left hemithorax is again seen. Right lung is clear. Cardiomediastinal silhouette: Cardiomegaly Other: Subcutaneous gas in the left chest wall. IMPRESSION: Diffuse opacification of the left hemithorax is again seen. No obvious pneumothorax. Physical Chemistry Professor: PSCTodd Transcribe Date/Time: Jun 21 2022 8:14A Dictated by : MIRANDA LOCKE MD This examination was interpreted and the report reviewed and electronically signed by: MIRANDA LOCKE MD on Jun 21 2022 8:16AM EST [id number] [facility] 06-20-2022 ALLIED HEALTH HNO ID: [id number] Author: Raymond Anderson RT(R) Service: Radiology Author Type: Technologist Type: Allied Health Filed: 06/20/2022 8:40 AM Note Text: Radiology Service Progress Note PATIENT NAME: Jemima Bradford DATE OF SERVICE: June 20, 2022 TIME: 8:40 AM PATIENT IDENTITY VERIFICATION COMPLETED USING TWO (2) IDENTIFIERS: Name and Date of confirmed by patient verbally and Name and Date of confirmed by identification band. FALL SCREENING: Has the patient had 2 falls in the last year or 1 fall with injury or currently using an Ambulatory Assistive Device (Walker, Cane, Wheelchair, Crutches, etc.)? Inpatient: Screened on floor PATIENT GENDER DATA: Female. status: : No status: N/A PATIENT RELEVANT IMPLANT DATA REVIEWED: Not Applicable RADIOLOGY DEPARTMENT: General X-ray: Exam(s) Completed: Chest X-Ray PERIPHERAL IV DATA: Not applicable SIGNED BY: Raymond Anderson, RT(R) June 20, 2022 8:40 AM Normal [facility] Basic metabolic 2000 panelon 06-20-2022 Anion gap [Moles/Vol] 10 mmol/L Normal 9-18 [facility] Comment on above: Order Comment: Speci men Type: BLOOD SPECIMEN Ordering Facility: [facility] Address: [address] [place] [address] Performed By: #### 5 8410-2 #### [facility] CLIA [id number] [address] [place] [address] [place] Calcium [Mass/Vol] 9.0 mg/dL Normal 8.5-10.2 [facility] Comment on above: Order Comment: Speci men Type: BLOOD SPECIMEN Ordering Facility: [facility] Address: [address] [place] [address] Performed By: #### 5 8410-2 #### [facility] CLIA [id number] [address] [place] [address] [place] Chloride [Moles/Vol] 100 mmol/L Normal 97-105 [facility] Comment on above: Order Comment: Speci men Type: BLOOD SPECIMEN Ordering Facility: [facility] Address: [address] [place] [address] Performed By: #### 5 8410-2 #### [facility] CLIA [id number] [address] [place] [address] [place] CO2 [Moles/Vol] 28 mmol/L Normal 22-30 [facility] Comment on above: Order Comment: Speci men Type: BLOOD SPECIMEN Ordering Facility: [facility] Address: [address] [place] [address] Performed By: #### 5 8410-2 #### [facility] CLIA [id number] [address] [place] [address] [place] Creatinine [Mass/Vol] 1.06 mg/dL High 0.58-0.96 [facility] Comment on above: Order Comment: Speci men Type: BLOOD SPECIMEN Ordering Facility: [facility] Address: [address] [place], [place] [address] Performed By: #### 5 8410-2 #### [facility] CLIA [id number] [address] [place] [address] [place] ESTIMATED GLOMERULAR FILTRATION RATE 53 mL/min/1.73m??? Low >=60 [facility] Comment on above: Order Comment: Mary Kay rausch Type: BLOOD SPECIMEN Ordering Facility: [facility] Address: [address] [address] Result Comment: Dee mated Glomerular Filtration Rate (eGFR) is calculated using the 2020 CKD-EPI creatinine equation. This equation utilizes serum creatinine, sex, and age as parameters. The creatinine assay has traceable calibration to isotope dilution-mass spectrometry. Refer to KDIGO guidelines for clinical interpretation. In patients with unstable renal function, e.g. those with acute kidney injury, the eGFR may not accurately reflect actual GFR. Performed By: #### 5 8410-2 #### [facility] CLIA [id number] [address] [place] [address] [place] Glucose [Mass/Vol] 126 mg/dL High 74-99 [facility] Comment on above: Order Comment: Mary Kay rausch Type: BLOOD SPECIMEN Ordering Facility: [facility] Address: [address] [place] [address] Result Comment: The [place] Diabetes Association (ADA) provides guidance for cutoff [...] Standards of Medical Care in Diabetes 2016, [place] [employer]. Diabetes Care. 2016.39(Suppl 1). Performed By: #### 5 8410-2 #### [facility] CLIA [id number] [address] [place] [address] [place] Potassium [Moles/Vol] 4.2 mmol/L Normal 3.7-5.1 [facility] Comment on above: Order Comment: Speci men Type: BLOOD SPECIMEN Ordering Facility: [facility] Address: [address] [place] [address] Performed By: #### 5 8410-2 #### [facility] CLIA [id number] [address] [place] [address] [place] Sodium [Moles/Vol] 138 mmol/L Normal 136-144 [facility] Comment on above: Order Comment: Speci men Type: BLOOD SPECIMEN Ordering Facility: [facility] Address: [address] [address] Performed By: #### 5 8410-2 #### [facility] CLIA [id number] [address] [place] [address] [place] Urea nitrogen [Mass/Vol] 18 mg/dL Normal 7-21 [facility] Comment on above: Order Comment: Speci men Type: BLOOD SPECIMEN Ordering Facility: [facility] Address: [address] [place] [address] Performed By: #### 5 8410-2 #### [facility] CLIA [id number] [address] [place] [address] [place] CBC panel Auto (Bld)on 06-20 Erythrocyte distribution width (RBC) [Ratio] 15.8 % High 11.5-15.0 [facility] Comment on above: Order Comment: Speci men Type: BLOOD SPECIMEN Ordering Facility: [facility] Address: [address] [address] Performed By: #### 5 8410-2 #### [facility] CLIA [id number] [address] [place] [address] [place] Hematocrit (Bld) [Volume fraction] 27.6 % Low 36.0-46.0 [facility] Comment on above: Order Comment: Speci men Type: BLOOD SPECIMEN Ordering Facility: [facility] Address: [address] [place] [address] Performed By: #### 5 8410-2 #### [facility] CLIA [id number] [address] [place] [address] OF [facility] Hemoglobin (Bld) [Mass/Vol] 9.0 g/dL Low 11.5-15.5 [facility] Comment on above: Order Comment: Speci men Type: BLOOD SPECIMEN Ordering Facility: [facility] Address: [address] [address] Performed By: #### 5 8410-2 #### [facility] CLIA [id number] [address] [place] [address] [place] MCH (RBC) [Entitic mass] 28.8 pg Normal 26.0-34.0 [facility] Comment on above: Order Comment: Speci men Type: BLOOD SPECIMEN Ordering Facility: [facility] Address: [address] [address] Performed By: #### 5 8410-2 #### [facility] CLIA [id number] [address] [place] [address] [place] MCHC (RBC) [Mass/Vol] 32.6 g/dL Normal 30.5-36.0 [facility] Comment on above: Order Comment: Speci men Type: BLOOD SPECIMEN Ordering Facility: [facility] Address: [address] [place] [address] Performed By: #### 5 8410-2 #### [facility] CLIA [id number] [address] [place] [address] [place] MCV (RBC) [Entitic vol] 88.5 fL Normal 80.0-100.0 [facility] Comment on above: Order Comment: Speci men Type: BLOOD SPECIMEN Ordering Facility: [facility] Address: [address] [address] Performed By: #### 5 8410-2 #### [facility] CLIA [id number] [address] [place] [address] [place] Nucleated RBC (Bld) [#/Vol] 10*3/uL Normal <0.01 [facility] Comment on above: Order Comment: Speci men Type: BLOOD SPECIMEN Ordering Facility: [facility] Address: [address] [place] [address] Performed By: #### 5 8410-2 #### [facility] CLIA [id number] [address] [place] [address] [place] Platelet mean volume (Bld) [Entitic vol] 9.7 fL Normal 9.0-12.7 [facility] Comment on above: Order Comment: Speci men Type: BLOOD SPECIMEN Ordering Facility: [facility] Address: [address] [place] [address] Performed By: #### 5 8410-2 #### [facility] CLIA [id number] [address] [place] [address] [place] Platelets (Bld) [#/Vol] 224 10*3/uL Normal 150-400 [facility] Comment on above: Order Comment: Speci men Type: BLOOD SPECIMEN Ordering Facility: [facility] Address: [address] [place] [address] Performed By: #### 5 8410-2 #### [facility] CLIA [id number] [address] [place] [address] [place] RBC (Bld) [#/Vol] 3.12 10*6/uL Low 3.90-5.20 [facility] Comment on above: Order Comment: Speci men Type: BLOOD SPECIMEN Ordering Facility: [facility] Address: [address] [place] [address] Performed By: #### 5 8410-2 #### [facility] CLIA [id number] [address] [place] [address] [place] WBC (Bld) [#/Vol] 6.41 10*3/uL Normal 3.70-11.00 [facility] Comment on above: Order Comment: Speci men Type: BLOOD SPECIMEN Ordering Facility: [facility] Address: [address] [place] [address] Performed By: #### 5 8410-2 #### [facility] CLIA [id number] [place] [address] [place] Magnesium SerPl-mCncon 06-20 Magnesium [Mass/Vol] 2.2 mg/dL Normal 1.7-2.3 [facility] Comment on above: Order Comment: Speci men Type: BLOOD SPECIMEN Ordering Facility: [facility] Address: [place] [address] Performed By: #### 5 8410-2 #### [facility] CLIA [id number] [address] [place] NURSING PROGon 06-20-2022 NURSING PROG HNO ID: [id number] Author: Aaron Rodriguez, REBECCA Service: ? Author Type: Registered Nurse Type: Nursing Progress Note Filed: 06/20/2022 6:38 PM Note Text: Other: 1130 Patient SR on telemetry, occasional PACs. A/Ox3, complains of CT insertion site pain, Oxy IR given. Tolerates HH diet. Ambulated entire pod 4 consecutive times with this RN, SOB at end of walk, pulse ox 93% RA. 2 CTs to wall suction, -20, no air leak detected. Lap sites [employer] with glue. no crepitus noted. PAS on bilaterally as ordered. IS encouraged. Poor inspiratory effort, shallow breathing at times. VSS, meds given as ordered. Patient in no distress, will continue to closely monitor and assess. 1400 SR on telemetry. Has not voided since IV lasix given, will monitor. Sitting in chair in no distress, using IS. 1440 Ambulated entire pod 4 consecutive times again with this RN, tolerated well. 1740 Ambulated entire pod 4 consecutive times again(12 total this shift). Currently sitting in chair in no distress. 1845 SR on telemetry, assessment unchanged, patient in no distress. Normal [facility] NUTRITIONon 06-20-2022 NUTRITION HNO ID: [id number] Author: Antionette Squires DTR Service: Nutrition Therapy Author Type: Technical Writer And Editor Type: Nutrition Filed: 06/20/2022 10:43 AM Note Text: NUTRITION THERAPY MACHINE FELLER NOTE SERVICE DATE: 06/20/2022 SERVICE TIME: 10:30 AM Visit Type: Length of Stay Plan of Care: Follow-Up: Tech Reassessment Nursing Admission Assessment Malnutrition Score: 0 Nutrition Intake: Diet Orders (From admission, onward) Start Ordered 06/19/22 1600 DIET HEART HEALTHY START NOW Question: Heart Healthy Answer: 2 GM SODIUM (LOW SAT FAT) 06/19/22 1555 Appetite: Fair, seen eating breakfast at time of visit. Patient reports eating less due to dislikes hospital food. Supplements: declined GI Symptoms: None. No nausea, vomiting, constipation or diarrhea interfering with appetite. Anthropometrics: Last Weight: 190 lb Body mass index is 32.75 kg/m?. Loss of lean body mass/visual muscle wasting: No Weight Change: Stable MNT Billing: $ Routine Care : 1-15 minutes SIGNATURE: Antionette Squires DTR PATIENT NAME: Jemima Bradford DATE: June 20, 2022 TIME: 10:41 AM Normal [facility] THERAPY NTon 06-20-2022 THERAPY NT HNO ID: [id number] Author: Asya Alaniz OT/L Service: Occupational Therapy Author Type: Occupational Therapist Type: Therapy (PT/OT/Speech/Resp) Filed: 06/20/2022 3:49 PM Note Text: OCCUPATIONAL THERAPY MISSED VISIT SERVICE DATE: 06/20/2022 SERVICE TIME: 1545 to 1545 ROOM: [place] [address] Patient not seen due to Declined. SIGNATURE: Asya Alaniz OT/Jaosn PATIENT NAME: Jemima Bradford DATE: June 20, 2022 TIME: 3:49 PM [facility] XR CHEST 1V FRONTALon 2021 XR CHEST 1V FRONTAL * * *Final Report* * * DATE OF EXAM: Jun 20 2022 8:36AM FVX 5290 - XR CHEST 1V FRONTAL / PROCEDURE REASON: Post-operative / post-procedure assessment, asymptomatic * * * * Physician Interpretation * * * * EXAMINATION: CHEST RADIOGRAPH (SINGLE VIEW AP OR PA) CLINICAL HISTORY: Post-operative / post-procedure assessment, asymptomatic MQ: XC1_5 Comparison: 06/19/2022 RESULT: See impression IMPRESSION: Lines, tubes, and devices: Interval placement of a pigtail catheter in the left lung apex. Large bore chest tube also in place. Lungs and pleura: Resolution of the gas seen in the left lung apex. Persistent opacification is noted in the left lung apex. Small left effusion is noted. Right lung appears grossly clear. Cardiomediastinal silhouette: Poorly evaluated cardiomediastinal silhouette. Other: . Physical Chemistry Professor: AB Transcribe Date/Time: Jun 20 2022 9:11A Dictated by : ERICKA BUSTILLO MD This examination was interpreted and the report reviewed and electronically signed by: ERICKA BUSTILLO MD on Jun 20 2022 9:12AM EST [id number] [facility] ALLIED HEALTHon 06-19-2022 ALLIED HEALTH HNO ID: [id number] Author: ABBIE Chang Service: ? Author Type: Technologist Type: Allied Health Filed: 06/19/2022 3:20 PM Note Text: Radiology Service Progress Note PATIENT NAME: Jemima Bradford DATE OF SERVICE: June 19, 2022 TIME: 3:20 PM PATIENT IDENTITY VERIFICATION COMPLETED USING TWO (2) IDENTIFIERS: Name and Date of confirmed by patient verbally. FALL SCREENING: Has the patient had 2 falls in the last year or 1 fall with injury or currently using an Ambulatory Assistive Device (Walker, Cane, Wheelchair, Crutches, etc.)? Inpatient: Screened on floor PATIENT GENDER DATA: Female. status: : No status: NO. PATIENT RELEVANT IMPLANT DATA REVIEWED: Not Applicable RADIOLOGY DEPARTMENT: Biopsy PERIPHERAL IV DATA: Site assessment: Clean,Dry and Intact, Site disposition Left in for next appointment SIGNED BY: ABBIE Chang June 19, 2022 3:20 PM [facility] BRIEF OP NOTon 06-19-2022 BRIEF OP NOT HNO ID: [id number] Author: Miranda Locke MD, MD Service: Radiology Author Type: Physician Type: Brief Op Note Filed: 06/19/2022 3:45 PM Note Text: Radiology Post Procedure Progress Note Pre-Procedure Diagnosis: L sided hydropneumothorax Procedure Performed: CT guided chest tube placement Post-Procedure Diagnosis: Same Significant Findings: Hydropneumothorax Required (same as procedure diagnosis) Specimen Obtained: 20 cc of bloody fluid aspirated Anesthesia: 50 mcg of Fentanyl Estimated Blood Loss: Minimal Complication: None SIGNATURE: Miranda Locke MD PATIENT NAME: Jemima Bradford DATE: June 19, 2022 TIME: 3:44 PM PAGER/CONTACT #: [facility] Basic metabolic 2000 panelon 06-19-2022 Anion gap [Moles/Vol] 14 mmol/L Normal 9-18 [facility] Comment on above: Order Comment: Speci men Type: BLOOD SPECIMEN Ordering Facility: [facility] Address: [address] [address] Performed By: #### 1 9123-03, #### [facility] CLIA [id number] [address] [place] [address] [place] Calcium [Mass/Vol] 8.6 mg/dL Normal 8.5-10.2 [facility] Comment on above: Order Comment: Speci men Type: BLOOD SPECIMEN Ordering Facility: [facility] Address: [address] [place] [address] Performed By: #### 1 9123-03, #### [facility] CLIA [id number] [address] [place] [address] [place] Chloride [Moles/Vol] 99 mmol/L Normal 97-105 [facility] Comment on above: Order Comment: Speci men Type: BLOOD SPECIMEN Ordering Facility: [facility] Address: [address] [address] Performed By: #### 1 9123-03, #### [facility] CLIA [id number] [address] [place] [address] [place] CO2 [Moles/Vol] 24 mmol/L Normal 22-30 [facility] Comment on above: Order Comment: Speci men Type: BLOOD SPECIMEN Ordering Facility: [facility] Address: [address] [address] Performed By: #### 1 9123-03, #### [facility] CLIA [id number] [address] [place] [address] [place] Creatinine [Mass/Vol] 0.95 mg/dL Normal 0.58-0.96 [facility] Comment on above: Order Comment: Speci men Type: BLOOD SPECIMEN Ordering Facility: [facility] Address: [address] [address] Performed By: #### 1 9123-03, 28255-0 #### [facility] CLIA [id number] [address] [place] [address] [place] ESTIMATED GLOMERULAR FILTRATION RATE 60 mL/min/1.73m??? Normal >=60 [facility] Comment on above: Order Comment: Shadijose rausch Type: BLOOD SPECIMEN Ordering Facility: [facility] Address: [address] [place] [address] Result Comment: Dee mated Glomerular Filtration Rate (eGFR) is calculated using the 2020 CKD-EPI creatinine equation. This equation utilizes serum creatinine, sex, and age as parameters. The creatinine assay has traceable calibration to isotope dilution-mass spectrometry. Refer to KDIGO guidelines for clinical interpretation. In patients with unstable renal function, e.g. those with acute kidney injury, the eGFR may not accurately reflect actual GFR. Performed By: #### 1 9123-9, 38289-7 #### [facility] CLIA [id number] [address] [place] [address] [place] Glucose [Mass/Vol] 185 mg/dL High 74-99 [facility] Comment on above: Order Comment: Mary Kay rausch Type: BLOOD SPECIMEN Ordering Facility: [facility] Address: [address] [place] [address] Result Comment: The [place] Diabetes Association (ADA) provides guidance for cutoff [...] Standards of Medical Care in Diabetes 2016, [place] [employer]. Diabetes Care. 2016.39(Suppl 1). Performed By: #### 1 9123-9, 53138-0 #### [facility] CLIA [id number] [address] [place] [address] [place] Potassium [Moles/Vol] 3.8 mmol/L Normal 3.7-5.1 [facility] Comment on above: Order Comment: Speci men Type: BLOOD SPECIMEN Ordering Facility: [facility] Address: [address] [place] [address] Performed By: #### 1 9123-9, 39631-6 #### [facility] CLIA [id number] [address] [place] [address] [place] Sodium [Moles/Vol] 137 mmol/L Normal 136-144 [facility] Comment on above: Order Comment: Speci men Type: BLOOD SPECIMEN Ordering Facility: [facility] Address: [address] [place] [address] Performed By: #### 1 9123-9, 64036-4 #### [facility] CLIA [id number] [address] [place] [address] [place] Urea nitrogen [Mass/Vol] 19 mg/dL Normal 7-21 [facility] Comment on above: Order Comment: Speci men Type: BLOOD SPECIMEN Ordering Facility: [facility] Address: [address] [place] [address] Performed By: #### 1 9123-9, 39300-2 #### [facility] CLIA [id number] [address] [place] [address] OF [place] CASE MANAGEMon 06-19-2022 CASE MANAGEM HNO ID: [id number] Author: Katie Damon RN Service: ? Author Type: Registered Nurse Type: Care Mgt Progress Note Filed: 06/19/2022 5:01 PM Note Text: CARE MANAGEMENT PROGRESS NOTE SERVICE DATE: 06/19/2022 SERVICE TIME: 4:59 PM LOS: 6 days Needs Prior to Discharge: Home Care Order;Facility or Agency Choices;Discharge Prescriptions Has two atriums- had pigtail inserted today. . c that she picked can't take until Saturday. Will follow up with other choices. SIGNATURE: Katie Damon RN PATIENT NAME: Jemima Bradford DATE: June 19, 2022 TIME: 4:59 PM PAGER/CONTACT #: [phone] [facility] [address] [facility] ORGA N BIon 06-19-[address] [facility]GAN BI * * *Final Report* * * DATE OF EXAM: Jun 19 2022 3:35PM FVC 2021 - CT DRAIN PLACE VISCERAL ORGAN BI / PROCEDURE REASON: Pneumothorax * * * * Physician Interpretation * * * * PROCEDURE: CT GUIDED LEFT-SIDED CHEST TUBE PLACEMENT INDICATION: The patient is a 82 years year old Female who presented with left-sided hydropneumothorax. CONSENT: The risks, benefits, treatment options, potential complications and personnel to be involved were discussed (including the risks of radiation exposure, contrast and anesthesia administration) with the patient. All of their questions were answered and consent was obtained. The patient indicated they were willing to proceed. GENERAL: a) Medication Reconciliation: The patient's medications and allergies were reviewed in the electronic medical record and reconciled to the proposed procedure/treatment. b) Pre-procedure Sign-in: Safety Checklist Performed Yes c) Positioning: The patient was placed Supine on the CT table. TIME OUT: An audible time out was performed immediately prior to procedure start with the entire nursing and radiology team, correctly identifying the patient name, date of , procedure, anatomy (including marking of site and side), type of procedure to be performed, patient position, procedure consent form, relevant diagnostic and radiology test results, antibiotic administration, safety precautions, and procedure-specific equipment needs. Procedure Start Time / Timeout Time: 1502; Procedure End Time: 1531 ANESTHESIA: a) Local anesthesia: 2% Buffered Lidocaine b) Anesthesia Type: local anesthesia only. c) Anesthesia Medications: 50 mcg fentanyl ; d) Patient monitoring:I personally supervised and directed an independent trained observer who assisted in monitoring the patient?s level of consciousness and physiological status throughout the procedure. TECHNIQUE: a) A high-resolution ikg-cormhwjn-uuegyczi helical CT of the chest was performed. Left-sided hydropneumothorax was localized under CT and skin overlying the hydropneumothorax was marked. The patient was prepped and draped using all elements of maximal sterile barrier technique (cap, mask, sterile gown, sterile gloves, a large sterile sheet, hand hygiene and cutaneous antisepsis). After local anesthesia, a 17-gauge guide needle was placed into the hydropneumothorax under CT guidance. Through the guiding needle, the guidewire was placed. Guidewire removed. Subsequently 8 St Helenian dilator passed over guidewire. Dilator removed and 8 St Helenian catheter passed over guidewire. Guidewire removed. b) Afsaneh-Procedure Medications: None c) Estimated Blood Loss: 0 mls d) Contrast: None e) Radiation: Dose-Length Product (DLP): 468mGy*cm CT Dose Reduction Employed: Automated exposure control (AEC) RESULT: a) Pre-procedure CT of the chest demonstrated left-sided hydropneumothorax. Post procedure CT of the chest demonstrate chest tube in hydropneumothorax.. b) Medications: None c) Hemostasis: Hemostasis was achieved using Manual Compression. d) Sign-out: Communication Performed Yes e) Complications: The patient tolerated the procedure well. There were no significant complications during the procedure. f) Conclusion: The patient was transferred to the inpatient room in stable condition. IMPRESSION: CT-guided placement of left-sided chest tube and aspiration of 20 cc of bloody fluid The procedure was performed by the: attending radiologist, without an urgent care physician assistant. The attending radiologist performed the following procedural activities: All Physical Chemistry Professor: PSCTodd Transcribe Date/Time: Jun 19 2022 3:47P Dictated by : MIRANDA LOCKE MD This examination was interpreted and the report reviewed and electronically signed by: MIRANDA LOCKE MD on Jun 19 2022 4:05PM EST [id number] [facility] HISTORY PHYSICALon HISTORY PHYSICAL HNO ID: [id number] Author: Miranda Locke MD, MD Service: Radiology Author Type: Physician Type: HANDP Filed: 06/19/2022 2:33 PM Note Text: UPDATED PROCEDURAL SEDATION HISTORY AND PHYSICAL EXAMINATION SERVICE DATE: 06/19/2022 SERVICE TIME: 3 PHYSICAL EXAM MUST BE COMPLETED ON ADMISSION PROCEDURE: CT guided L sided chest tube placement Procedure Indications: L sided hydropneumothorax The History and Physical (completed in the past 30 days) has been reviewed and the patient has been examined. The contents accurately reflect the patient's condition with the following additions or revisions since the HANDP was completed. ASA Class: ASA Class:: Patient with mild systemic disease Examination indicates no changes. AIRWAY: Airway Visualization of Uvula: Yes Mouth opening greater than 2 fingerbreadths: Yes Provisional Diagnosis/Treatment Plan: CT guided L sided chest tube placement SEDATION GOAL: Moderate This HANDP can be found in the Electronic Medical Record dated 05/30/2022 . SIGNATURE: Miranda Locke MD PATIENT NAME: Jemima Bradford DATE: June 19, 2022 TIME: 2:32 PM [facility] Magnesium SerPl-mCncon 06-19 Magnesium [Mass/Vol] 2.4 mg/dL High 1.7-2.3 [facility] Comment on above: Order Comment: Speci men Type: BLOOD SPECIMEN Ordering Facility: [facility] Address: [address] [place], [place] [id number] Performed By: #### 1 9123-9, 42370-4 #### [facility] CLIA [id number] [place] [address] OF [facility] NURSING PROGon 06-19-2022 NURSING PROG HNO ID: [id number] Author: Maeve Monique RN Service: Nursing Author Type: Registered Nurse Type: Nursing Progress Note Filed: 06/19/2022 4:30 PM Note Text: DAILY NOTE: 8275 Paged Los Jacobs PA-C, Pt asking to speak with Dr. Amaral himself today. Says she hasn't seen him since to surgery. Also wants to hear results of the xray and CT. 726 Los Jacobs PA-C paged back, he will pass on the message to Dr. Amaral. 1100 Pt going to IR today for chest tube placement, report given. 1543 REBECCA Torres called report. 1550 Pt back on unit, tele back on pt. 1613 paged Louis العلي [id number] Jemima Bradford, Pt back from IR, IR stated CT surgery to manage drain. Do you want pt on suction? Thank you, REBECCA Mcfarlane [phone] Louis العلي called back, chest tube to be at wall suction -[address] Fowler at bedside. [facility] PT EDon 06-19-2022 PT ED HNO ID: [id number] Author: Melissa Encarnacion RN Service: Radiology Author Type: Registered Nurse Type: Patient Education Filed: 06/19/2022 3:13 PM Note Text: PATIENT EDUCATION TOPIC: PROCEDURE / SURGERY: Procedure/Surgery: chest tube insertion PATIENT NAME: Jemima Bradford PATIENT LOCATION: [facility]* READINESS TO LEARN COGNITIVE ABILITY: Alert and oriented MOTIVATION TO LEARN: Interested FAMILY SUPPORT: Unable to assess - Family not present INSTRUCTION PROVIDED TO: Patient PATIENT LEARNS BEST BY: Individual Instruction Written Instruction - Hand-outs Verbal Instruction FACTORS AFFECTING LEARNING: None PHYSICAL LIMITATIONS AFFECTING LEARNING: None LEARNING RESPONSE DIAGNOSIS: ADULT: chest tube insertion PATIENT/FAMILY RESPONSE: Verbalizes understanding of: POST-PROCEDURE INSTRUCTIONS-Correct actions to take to reduce post procedure complications PRE-PROCEDURE INSTRUCTIONS-Correct action to take to follow pre-procedure instructions METHOD OF INSTRUCTION: Individual instruction Written instruction - handouts Verbal instruction FOLLOW-UP PLAN: Follow-up with Primary Care INSTRUCTIONAL AIDS USED: NA SUPPLEMENTAL MATERIAL PROVIDED TO PATIENT: None REFERRAL (RECOMMENDATION): None Electronically Signed By: Melissa Encarnacion [facility] THERAPY NTon 06-19-2022 THERAPY NT HNO ID: [id number] Author: Asya Alaniz OT/Jason Service: Occupational Therapy Author Type: Occupational Therapist Type: Therapy (PT/OT/Speech/Resp) Filed: 06/19/2022 2:39 PM Note Text: OCCUPATIONAL THERAPY MISSED VISIT SERVICE DATE: 06/19/2022 SERVICE TIME: 1439 to 1439 ROOM: IR [place] ( [facility]) Patient not seen due to Test/Procedure. SIGNATURE: VINCE Garcia PATIENT NAME: Jemima Bradford DATE: June 19, 2022 TIME: 2:39 PM [facility] XR CHEST 1V FRONTALon 2021 XR CHEST 1V FRONTAL * * *Final Report* * * DATE OF EXAM: Jun 19 2022 8:20AM FVX 5290 - XR CHEST 1V FRONTAL / PROCEDURE REASON: Pneumothorax * * * * Physician Interpretation * * * * EXAMINATION: CHEST RADIOGRAPH (SINGLE VIEW AP OR PA) CLINICAL HISTORY: Pneumothorax MQ: XC1_5 Comparison: 06/18/2022 at 7:38 AM; CT chest 06/18/2022 at 2:30 PM RESULT: Lines, tubes, and devices: Stable left-sided chest tube. Lungs and pleura: Redemonstrated moderate to large left hydropneumothorax Cardiomediastinal silhouette: Median sternotomy. Stable cardiomediastinal silhouette. Other: Redemonstrated subcutaneous emphysema along the left chest wall. IMPRESSION: Redemonstrated moderate to large left hydropneumothorax, similar to chest CT 06/18/2022. Physical Chemistry Professor: AB Transcribe Date/Time: Jun 19 2022 8:28A Dictated by : DAVID BERRY MD This examination was interpreted and the report reviewed and electronically signed by: DAVID BERRY MD on Jun 19 2022 8:30AM EST [id number] [facility] HNO ID: [id number] Author: ABBIE Chang Service: ? Author Type: Technologist Type: [facility] Filed: 06/18/2022 2:30 PM Note Text: Radiology Service Progress Note PATIENT NAME: Jemima Bradford DATE OF SERVICE: June 18, 2022 TIME: 2:30 PM PATIENT IDENTITY VERIFICATION COMPLETED USING TWO (2) IDENTIFIERS: Name and Date of confirmed by patient verbally. FALL SCREENING: Has the patient had 2 falls in the last year or 1 fall with injury or currently using an Ambulatory Assistive Device (Walker, Cane, Wheelchair, Crutches, etc.)? Inpatient: Screened on floor PATIENT GENDER DATA: Female. status: : No status: NO. PATIENT RELEVANT IMPLANT DATA REVIEWED: Not Applicable RADIOLOGY DEPARTMENT: CT; Exam(s) Completed: Chest PERIPHERAL IV DATA: Not applicable SIGNED BY: ABBIE Chang June 18, 2022 2:30 PM [facility] HNO ID: [id number] Author: RT Gustavo(R) Service: ? Author Type: Protection Agent Type: [facility] Filed: 06/18/2022 8:12 AM Note Text: Radiology Service Progress Note PATIENT NAME: Jemmia Bradford DATE OF SERVICE: June 18, 2022 TIME: 8:12 AM PATIENT IDENTITY VERIFICATION COMPLETED USING TWO (2) IDENTIFIERS: Name and Date of confirmed by patient verbally and Name and Date of confirmed by identification band. FALL SCREENING: Has the patient had 2 falls in the last year or 1 fall with injury or currently using an Ambulatory Assistive Device (Walker, Cane, Wheelchair, Crutches, etc.)? Inpatient: Screened on floor PATIENT GENDER DATA: Female. status: : No status: NO. PATIENT RELEVANT IMPLANT DATA REVIEWED: Not Applicable RADIOLOGY DEPARTMENT: General X-ray: Exam(s) Completed: Chest X-Ray PERIPHERAL IV DATA: Not applicable SIGNED BY: RT Gustavo(R) June 18, 2022 8:12 AM Normal [facility] Basic metabolic 2000 panelon 06-18-2022 Anion gap [Moles/Vol] 13 mmol/L Normal - [facility] Comment on above: Order Comment: Speci men Type: BLOOD SPECIMEN Ordering Facility: [facility] Address: [address] [place] [address] Performed By: #### 5 8410-2 #### [facility] CLIA [id number] [address] [place] [address] [place] Calcium [Mass/Vol] 8.7 mg/dL Normal 8.5-10.2 [facility] Comment on above: Order Comment: Speci men Type: BLOOD SPECIMEN Ordering Facility: [facility] Address: [address] [place] [address] Performed By: #### 5 8410-2 #### [facility] CLIA [id number] [address] [place] [address] [place] Chloride [Moles/Vol] 97 mmol/L Normal 97-105 [facility] Comment on above: Order Comment: Speci men Type: BLOOD SPECIMEN Ordering Facility: [facility] Address: [address] [place] [address] Performed By: #### 5 8410-2 #### [facility] CLIA [id number] [address] [place] [address] [place] CO2 [Moles/Vol] 26 mmol/L Normal 22-30 [facility] Comment on above: Order Comment: Speci men Type: BLOOD SPECIMEN Ordering Facility: [facility] Address: [address] [place] [address] Performed By: #### 5 8410-2 #### [facility] CLIA [id number] [address] [place] [address] [place] Creatinine [Mass/Vol] 1.07 mg/dL High 0.58-0.96 [facility] Comment on above: Order Comment: Mary Kay rausch Type: BLOOD SPECIMEN Ordering Facility: [facility] Address: [address] [address] Performed By: #### 5 8410-2 #### [facility] CLIA [id number] [address] [place] [address] [place] ESTIMATED GLOMERULAR FILTRATION RATE 52 mL/min/1.73m??? Low >=60 [facility] Comment on above: Order Comment: Mary Kay rausch Type: BLOOD SPECIMEN Ordering Facility: [facility] Address: [address] [address] Result Comment: Dee mated Glomerular Filtration Rate (eGFR) is calculated using the 2020 CKD-EPI creatinine equation. This equation utilizes serum creatinine, sex, and age as parameters. The creatinine assay has traceable calibration to isotope dilution-mass spectrometry. Refer to KDIGO guidelines for clinical interpretation. In patients with unstable renal function, e.g. those with acute kidney injury, the eGFR may not accurately reflect actual GFR. Performed By: #### 5 8410-2 #### [facility] CLIA [id number] [address] [place] [address] [place] Glucose [Mass/Vol] 114 mg/dL High 74-99 [facility] Comment on above: Order Comment: Mary Kay rausch Type: BLOOD SPECIMEN Ordering Facility: [facility] Address: [address] [address] Result Comment: The [place] Diabetes Association (ADA) provides guidance for cutoff [...] Standards of Medical Care in Diabetes 2016, [place] [employer]. Diabetes Care. 2016.39(Suppl 1). Performed By: #### 5 8410-2 #### [facility] CLIA [id number] [address] [place] [address] [place] Potassium [Moles/Vol] 4.0 mmol/L Normal 3.7-5.1 [facility] Comment on above: Order Comment: Speci men Type: BLOOD SPECIMEN Ordering Facility: [facility] Address: [address] [address] Performed By: #### 5 8410-2 #### [facility] CLIA [id number] [address] [place] [address] [place] Sodium [Moles/Vol] 136 mmol/L Normal 136-144 [facility] Comment on above: Order Comment: Shadii miracle Type: BLOOD SPECIMEN Ordering Facility: [facility] Address: [address] [place] [address] Performed By: #### 5 8410-2 #### [facility] CLIA [id number] [address] [place] [address] [place] Urea nitrogen [Mass/Vol] 24 mg/dL High 7-21 [facility] Comment on above: Order Comment: Shadii miracle Type: BLOOD SPECIMEN Ordering Facility: [facility] Address: [address] [place] [address] Performed By: #### 5 8410-2 #### [facility] CLIA [id number] [address] [place] [address] [place] CT CHEST WO IVCONon 06-18-[address] CHEST WO IVCON * * *Final Report* * * DATE OF EXAM: Jun 18 2022 2:32PM FVC 0541 - CT CHEST WO IVCON / PROCEDURE REASON: Interstitial lung disease * * * * Physician Interpretation * * * * EXAMINATION: CHEST CT WITHOUT CONTRAST CLINICAL HISTORY: Interstitial lung disease, 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 MQ: CTCWO_6 CT Radiation dose: Integrated Dose-length product (DLP) for this visit = 237 mGy*cm CT Dose Reduction Employed: Automated exposure control (AEC) Comparison: X-ray 06/18/2022 RESULT: Limitations: None. Lines, tubes, and devices: Chest tube with tip in the left midlung posteriorly Lung parenchyma and airways: Patient status post left upper lobectomy. Moderate to large left sided pneumothorax. Layering fluid is present. Anteriorly and inferiorly, there is slightly more hyperdense material. Unclear whether this reflects collapsed lung or blood products. Patchy opacities in the left in what appears to be the remnants of the lingula. 0.7 cm groundglass opacity in the right apex (image 30, 4). Pleural space: Moderate pleural effusion Lower neck, lymph nodes, and mediastinum: The imaged thyroid gland is normal. No axillary, or mediastinal lymphadenopathy. Evaluation for hilar lymph nodes limited due to lack of IV contrast. Heart, pericardium, and thoracic vessels: Prosthetic aortic valve. Thoracic aorta and main pulmonary artery are normal in caliber. Heart is normal in size. Extensive coronary artery calcifications. Left atrial appendage occlusion device. Small amount of pneumomediastinum. Bones and soft tissues: Subcutaneous emphysema in the left chest wall. Sternotomy wires. No suspicious osseous lesions. Nondisplaced fracture of the seventh rib on the left. Multilevel degenerative changes throughout the thoracic spine. Upper abdomen: Gallbladder surgically absent. 1.1 cm right renal cyst. Small hiatal hernia. Machine Brush Maker (topogram) images: No additional findings. IMPRESSION: 1. Moderate to large left-sided hydropneumothorax. 2. Anteriorly and inferiorly there is a slightly more hyperdense area. Unclear whether this reflects blood products versus collapsed lung. 3. Extensive postsurgical changes including pneumomediastinum and subcutaneous gas. 4. Patchy airspace disease in what appears to be the remnant of the lingula, likely postoperative. 5. 0.7 cm on left nodule in the right apex, nonspecific recommend attention on follow-up. 6. Nondisplaced fracture of the seventh rib on the left. Physical Chemistry Professor: AB Transcribe Date/Time: Jun 18 2022 2:46P Dictated by : MIRANDA LOCKE MD This examination was interpreted and the report reviewed and electronically signed by: MIRANDA LOCKE MD on Jun 18 2022 3:03PM EST [id number] [facility] ECG COMPLETEon 06-18-2022 ECG COMPLETE Ventricular Rate : 1 16 BPM Atrial Rate : 128 BPM P-R Interval : 139 ms QRS Duration : 85 ms Q-T Interval : 340 ms QTC Calculation(Bazett) : 473 ms Calculated P Alma : -163 degrees Calculated R Alma : 21 degrees Calculated T Alma : 2 degrees Atrial flutter ( atypical) VS ectopic atrial tachycardia Abnormal ECG Confirmed by MANDEEP PIÑA MD ([id number]) on 06/19/2022 8:19:24 AM NAME : JEMIMA BRADFORD PID : [id number] : 1940 Gender : Female Race : ORD : [id number] Procedure Date : Jun 18 2022 17:41:55 Edit Date : Jun 19 2022 08:19:27 Diagnosis: Atrial flutter ( atypical) VS ectopic atrial tachycardia Abnormal ECG Confirmed by MANDEEP PIÑA MD ([id number]) on 06/19/2022 8:19:24 AM Test Reason : Arrhythmia Location : [address] Overread By : MANDEEP PIÑA MD Edited By : MANDEEP PIÑA MD Referred By : , Acquired by : MACARENA PRATHER [facility] Magnesium SerPl-mCncon 06-18 Magnesium [Mass/Vol] 2.5 mg/dL High 1.7-2.3 [facility] Comment on above: Order Comment: Speci men Type: BLOOD SPECIMEN Ordering Facility: [facility] Address: [address] [place] [address] Performed By: #### 5 8410-2 #### [facility] CLIA [id number] [address] [place] [address] [place] NURSING PROGon 06-18-2022 NURSING PROG HNO ID: [id number] Author: Maeve Monique RN Service: Nursing Author Type: Registered Nurse Type: Nursing Progress Note Filed: 06/18/2022 6:51 PM Note Text: DAILY NOTE: 1600 [facility] changed, volume 2000 cc. 1718 Pt flipped into Afib. Paged CT surgery, Kehinde Samples. 1726 Larry B Samples, PA-C ordered STAT EKG and IV metoprolol see MAR. Possible Amio gtt. 1758 Larry oRusseau PA-C rounded on pt, ordered Amio gtt and decreased wall suction to negative 10. Normal [facility] THERAPY NTon 06-18-2022 THERAPY NT HNO ID: [id number] Author: Juan David Meredith, PT Service: Physical Therapy Author Type: Physical Therapist Type: Therapy (PT/OT/Speech/Resp) Filed: 06/18/2022 10:54 AM Note Text: Physical Therapy Treatment SERVICE DATE: 06/18/2022 SERVICE TIME: 1000 to 1018 ROOM: [place] [address] Recommended Discharge Disposition: Home PT Recommended Discharge Disposition Comments: Patient will benefit from home PT for strengthening and improvement in activity tolerance. Anticipated Discharge Needs: Physical Assist at Home Physical Assist at Home for: Meals;Shopping;Transporta tion;Laundry;Cleaning PT 6 Clicks Score: 22 Precautions/Activity Restrictions: Bed/Chair Alarm;Abdominal;Fall Risk;Lines/Tubes/Drains Precaution/Activity Restriction Comments: chest tube Isolation Type: None Current Hospital Course: s/p robotic thoracoscopy/lobectomy with cryoanalgesia procedure segments 5-7 Reason for Hospital Admission: Left upper lobe adenocarcinoma Relevant Past Medical History: HTN, CAD, arthritis, asthma, right TKR, JENNIFER, CVA, aortic valve repair Response to Therapy Interventions: Good participation in activities, Improved tolerance for activity, Notable progression with functional activities/skills Assessment Comments: Patient tolerating long bouts of ambulation well without signs of discomfort, SOB or pain. Continue skilled needs due to: Continued monitoring of vital signs during mobility required, Functional mobility/skill impairments Physical Therapy Problem List: Pain;Decreased Activity Tolerance;Decreased Range Of Motion;Decreased Strength;Functional Mobility Impairment;Balance Impaired Treatment Interventions: Education;Strengthening;F unctional Mobility Training;Balance Training;Neuromuscular Re-education;Pain Management;Energy Conservation Training Plan for next visit: Bed mobility, Fall prevention, Gait training, Exercise instruction/handout, Pre-gait activities, Sit to Stand Transfers, Standing Tolerance, Sitting balance, Standing Balance, Walker Training Home Environment Patient Lives With: Significant Other Assistance Available: 24-Hour Entry To Home: Stairs;With Rail Number Of Stairs Into Home: 8 Number Of Stairs To Bed/Bath: 0 Tub/Shower Type: tub shower (has tub bench but not currently using). Laundry: basement - patient completes Equipment Owned: Cane;Wheeled Walker;Shower Chair;Elevated Toilet Seat;Wheelchair - Manual;Long Handled Shoe Horn;Grab Bars-Shower;Grab Bars-Toilet;Hand Held Shower;Foreign Language Interpreter;Long Handled Sponge Prior Functional Level: Within Functional Limits Prior Functional Level Comments: Patient reports previous independence with ADLs/IADLs, ambulates without AD, drives Baseline Cognition: Oriented to self;Oriented to place;Oriented to time Patient Report: Patient pleasant and agreeable to PT treatment CURRENT FUNCTIONAL STATUS: Most recent performance Current Functional Mobility Assist Level Additional Information Rolling Stand By Assistance Supine to Sit Minimal Assistance (handheld assist for uprighting of trunk) Sit to Supine Scooting Stand By Assistance Sit to Stand Stand By Assistance Stand to Sit Stand By Assistance Bed to Chair Toilet/Commode Gait Contact Guard Assistance Gait Device: Wheeled Walker Gait Distance (feet): 800 ft (4 laps) Stairs Curb Step Car Transfer Blank borrero indicate activity not attempted General Deviations/Observations: [place] decreased;Difficulty changing direction/turning;Flexed trunk posture;Step length decreased Balance: Static Sitting;Dynamic Sitting;Static Standing;Dynamic Standing Static Sitting Balance: Normal Patient able to maintain steady balance without handhold support Dynamic Sitting Balance: Good Patient accepts moderate challenge, able to maintain balance while picking up object off floor Static Standing Balance: Good Patient able to maintain balance without handhold support, limited postural sway Dynamic Standing Balance: Fair Patient accepts minimal challenge, able to maintain balance while turning head/trunk Activity Tolerance: Standing Activity Standing Activity: sit to stand, gait Standing Activity Tolerance (in minutes): 15 JH-HLM: 8: Walk 250 feet or more Learning/Educational Needs: Discharge Plan;Functional Activities/Mobility;Pain Management;Plan of Care;Precautions;Rehabili tation Techniques and Procedures;Safety Goals for Plan of Care: Patient /Caregiver Goals: Go Home Goals: Patient will demonstrate progress with functional mobility to allow safe discharge to home with available support and/or physical assistance. Transfer Supine to/from Sit with: Stand By Assistance Transfer Sit to/from Stand with: Stand By Assistance Ambulate with: Stand By Assistance Distance: 100 ft Device: Wheeled Walker Ambulate Up and Down Steps with: Contact Guard Assistance Number of Steps: 8 Device: Rail Progress Toward Goals: Progressing as expected Rehab Potential: G (more content not included)... Normal [facility] WBC Auto (Bld) [#/Vol]on WBC (Bld) [#/Vol] 6.99 10*3/uL Normal 3.70-11.00 [facility] Comment on above: Order Comment: Speci men Type: BLOOD SPECIMENOrdering Facility: [facility] Address: [address] [place] [address] Performed By: #### 6 690-2 ####[facility]ORATORYCLIA [id number] [place] [id number] [facility] XR CHEST 1V FRONTALon 2021 XR CHEST 1V FRONTAL * * *Final Report* * * DATE OF EXAM: Jun 18 2022 8:09AM FVX 5290 - XR CHEST 1V FRONTAL / PROCEDURE REASON: Pneumothorax * * * * Physician Interpretation * * * * FRONTAL CHEST RADIOGRAPH HISTORY: Pneumothorax . TECHNIQUE: Frontal view of the chest was obtained. COMPARISON: 06/17/2022 RESULT: Status post median sternotomy. Left-sided chest tube. Subcutaneous emphysema left chest wall. Cardiomediastinal silhouette is unchanged. Patchy left perihilar opacity persists. Right lung is clear. No definite pleural effusion or pneumothorax. IMPRESSION: See result. Physical Chemistry Professor: AB Transcribe Date/Time: Jun 18 2022 8:34A Dictated by : KINJAL MARIE MD This examination was interpreted and the report reviewed and electronically signed by: KINJAL MARIE MD on Jun 18 2022 8:36AM EST [id number] Normal [facility] ALLIED HEALTHon 06-17-2022 ALLIED HEALTH HNO ID: [id number] Author: RT Thao(R) Service: ? Author Type: Technologist Type: Allied Health Filed: 06/17/2022 8:30 AM Note Text: Radiology Service Progress Note PATIENT NAME: Jemima Bradford DATE OF SERVICE: June 17, 2022 TIME: 8:30 AM PATIENT IDENTITY VERIFICATION COMPLETED USING TWO (2) IDENTIFIERS: Name and Date of confirmed by patient verbally. FALL SCREENING: Has the patient had 2 falls in the last year or 1 fall with injury or currently using an Ambulatory Assistive Device (Walker, Cane, Wheelchair, Crutches, etc.)? Inpatient: Screened on floor PATIENT GENDER DATA: Female. status: : No status: NO. PATIENT RELEVANT IMPLANT DATA REVIEWED: Not Applicable RADIOLOGY DEPARTMENT: General X-ray: Exam(s) Completed: Chest X-Ray PERIPHERAL IV DATA: Not applicable SIGNED BY: Lewis Bae RT(R) June 17, 2022 8:30 AM Normal [facility] Basic metabolic 2000 panelon 06-17-2022 Anion gap [Moles/Vol] 12 mmol/L Normal 03-18 [facility] Comment on above: Order Comment: Speci men Type: BLOOD SPECIMENOrdering Facility: [facility] Address: [address] [place] [address] Performed By: #### 2 4321-2 ####[facility] LABORATORYCLIA [id number] [place] [address] [place] Calcium [Mass/Vol] 8.7 mg/dL Normal 8.5-10.2 [facility] Comment on above: Order Comment: Speci men Type: BLOOD SPECIMENOrdering Facility: [facility] Address: [address] [address] Performed By: #### 2 4321-2 ####[facility] LABORATORYCLIA [id number] [place] [address] [place] Chloride [Moles/Vol] 100 mmol/L Normal 97-105 [facility] Comment on above: Order Comment: Speci men Type: BLOOD SPECIMENOrdering Facility: [facility] Address: [address] [place] [address] Performed By: #### 2 4321-2 ####[facility]ORATORYCLIA [id number] [place] [address] [place] CO2 [Moles/Vol] 25 mmol/L Normal 22-30 [facility] Comment on above: Order Comment: Speci men Type: BLOOD SPECIMENOrdering Facility: [facility] Address: [address] [place] [address] Performed By: #### 2 4321-2 ####[facility]ORATORYCLIA [id number] [place] [id number] [place] Creatinine [Mass/Vol] 1.07 mg/dL High 0.58-0.96 [facility] Comment on above: Order Comment: Mary Kay miracle Type: BLOOD SPECIMENOrdering Facility: [facility] Address: [address] [id number] Performed By: #### 2 4321-2 ####[facility] LABORATORYCLIA [id number] [place] [id number] [place] ESTIMATED GLOMERULAR FILTRATION RATE 52 mL/min/1.73m??? Low >=60 [facility] Comment on above: Order Comment: Mary Kay miracle Type: BLOOD SPECIMENOrdering Facility: [facility] Address: [address] [place] [address] Result Comment: Dee mated Glomerular Filtration Rate (eGFR) is calculated using the 2020 CKD-EPI creatinine equation. This equation utilizes serum creatinine, sex, and age as parameters. The creatinine assay has traceable calibration to isotope dilution-mass spectrometry. Refer to KDIGO guidelines for clinical interpretation. In patients with unstable renal function, e.g. those with acute kidney injury, the eGFR may not accurately reflect actual GFR. Performed By: #### 2 4321-2 ####[facility]ORATORYCLIA [id number] [place] [id number] [place] Glucose [Mass/Vol] 136 mg/dL High 74-99 [facility] Comment on above: Order Comment: Mary Kay miracle Type: BLOOD SPECIMENOrdering Facility: [facility] Address: [address] [place] [address] Result Comment: The [place] Diabetes Association (ADA) provides guidance for cutoff [...] Standards of Medical Care in Diabetes 2016, [place] [employer]. Diabetes Care. 2016.39(Suppl 1). Performed By: #### 2 4321-2 ####[facility]ORATORYCLIA [id number] [place] [address] [place] Potassium [Moles/Vol] 4.0 mmol/L Normal 3.7-5.1 [facility] Comment on above: Order Comment: Speci men Type: BLOOD SPECIMENOrdering Facility: [facility] Address: [address] [place] [address] Performed By: #### 2 4321-2 ####[facility]ORATORYCLIA [id number] [place] [address] [place] Sodium [Moles/Vol] 137 mmol/L Normal 136-144 [facility] Comment on above: Order Comment: Speci men Type: BLOOD SPECIMENOrdering Facility: [facility] Address: [address] [place] [address] Performed By: #### 2 4321-2 ####[facility]ORATORYCLIA [id number] [address] [place] Urea nitrogen [Mass/Vol] 23 mg/dL High 7-21 [facility] Comment on above: Order Comment: Speci men Type: BLOOD SPECIMENOrdering Facility: [facility] Address: [address] [place] [address] Performed By: #### 2 4321-2 ####[facility]ORATORYCLIA [id number] [place] [id number] [place] CBC panel Auto (Bld)on 06-17 Erythrocyte distribution width (RBC) [Ratio] 15.2 % High 11.5-15.0 [facility] Comment on above: Order Comment: Speci men Type: BLOOD SPECIMEN Ordering Facility: [facility] Address: [address] [place] [address] Performed By: #### 5 8410-2 #### [facility] CLIA [id number] [place] Hematocrit (Bld) [Volume fraction] 29.8 % Low 36.0-46.0 [facility] Comment on above: Order Comment: Speci men Type: BLOOD SPECIMEN Ordering Facility: [facility] Address: [address] [address] Performed By: #### 5 8410-2 #### [facility] CLIA [id number] [address] [place] [address] [place] Hemoglobin (Bld) [Mass/Vol] 10.0 g/dL Low 11.5-15.5 [facility] Comment on above: Order Comment: Speci men Type: BLOOD SPECIMEN Ordering Facility: [facility] Address: [address] [address] Performed By: #### 5 8410-2 #### [facility] CLIA [id number] [address] [place] [address] [place] MCH (RBC) [Entitic mass] 29.3 pg Normal 26.0-34.0 [facility] Comment on above: Order Comment: Speci men Type: BLOOD SPECIMEN Ordering Facility: [facility] Address: [address] [address] Performed By: #### 5 8410-2 #### [facility] CLIA [id number] [address] [place] [address] [place] MCHC (RBC) [Mass/Vol] 33.6 g/dL Normal 30.5-36.0 [facility] Comment on above: Order Comment: Speci men Type: BLOOD SPECIMEN Ordering Facility: [facility] Address: [address] [address] Performed By: #### 5 8410-2 #### [facility] CLIA [id number] [address] [place] [address] [place] MCV (RBC) [Entitic vol] 87.4 fL Normal 80.0-100.0 [facility] Comment on above: Order Comment: Speci men Type: BLOOD SPECIMEN Ordering Facility: [facility] Address: [address] [place] [address] Performed By: #### 5 8410-2 #### [facility] CLIA [id number] [address] [place] [address] [place] Nucleated RBC (Bld) [#/Vol] 10*3/uL Normal <0.01 [facility] Comment on above: Order Comment: Speci men Type: BLOOD SPECIMEN Ordering Facility: [facility] Address: [address] [address] Performed By: #### 5 8410-2 #### [facility] CLIA [id number] [address] [place] [address] [place] Platelet mean volume (Bld) [Entitic vol] 11.0 fL Normal 9.0-12.7 [facility] Comment on above: Order Comment: Speci men Type: BLOOD SPECIMEN Ordering Facility: [facility] Address: [address] [place] [address] Performed By: #### 5 8410-2 #### [facility] CLIA [id number] [address] [place] [address] [place] Platelets (Bld) [#/Vol] 152 10*3/uL Normal 150-400 [facility] Comment on above: Order Comment: Speci men Type: BLOOD SPECIMEN Ordering Facility: [facility] Address: [address] [place] [address] Performed By: #### 5 8410-2 #### [facility] CLIA [id number] [address] [place] [address] [place] RBC (Bld) [#/Vol] 3.41 10*6/uL Low 3.90-5.20 [facility] Comment on above: Order Comment: Speci men Type: BLOOD SPECIMEN Ordering Facility: [facility] Address: [address] [address] Performed By: #### 5 8410-2 #### [facility] CLIA [id number] [address] [place] [address] [place] WBC (Bld) [#/Vol] 7.71 10*3/uL Normal 3.70-11.00 [facility] Comment on above: Order Comment: Speci men Type: BLOOD SPECIMEN Ordering Facility: [facility] Address: [address] [place] [address] Performed By: #### 5 8410-2 #### [facility] CLIA [id number] [place] NURSING PROGon 06-17-2022 NURSING PROG HNO ID: [id number] Author: Celena Magdaleno RN Service: Nursing Author Type: Registered Nurse Type: Nursing Progress Note Filed: 06/17/2022 6:47 PM Note Text: Other: 1845 Pt walked the pod four times today, and is using IS. Chest tube remains to suction, draining serro sang, no air leak noted. Pt remains on RA, in no distress. Tele and safety maintained, call light within reach, will continue to assess. Normal [facility] THERAPY NTon 06-17-2022 THERAPY NT HNO ID: [id number] Author: Gabriela Conroy OTR/L Service: Occupational Therapy Author Type: Occupational Therapist Type: Therapy (PT/OT/Speech/Resp) Filed: 06/17/2022 3:21 PM Note Text: Occupational Therapy Treatment SERVICE DATE: 06/17/2022 SERVICE TIME: 1429 to 1459 ROOM: [place] [address] Recommended Discharge Disposition: Home OT Anticipated Discharge Needs: Physical Assist at Home Physical Assist at Home for: Meals;Shopping;Transporta tion;Laundry;Cleaning Recommended Discharge Equipment: Dressing Stick;Sock Aid (states she has trouble with LB dressing) OT 6 Clicks Score: 22 Precautions/Activity Restrictions: Bed/Chair Alarm;Abdominal;Fall Risk;Lines/Tubes/Drains Precaution/Activity Restriction Comments: chest tube Current Hospital Course: s/p robotic thoracoscopy/lobectomy with cryoanalgesia procedure segments 5-7 Reason for Hospital Admission: Left upper lobe adenocarcinoma Relevant Past Medical History: HTN, CAD, arthritis, asthma, right TKR, JENNIFER, CVA, aortic valve repair Response to Therapy Interventions: Good participation in activities, Pain Continue skilled needs due to: Functional impairment Occupational Therapy Problem List: Pain;Functional Mobility Impairment;Impaired Self Care Cognition/Communication Deficits Responsiveness: Alert, Awake Follows Commands: 3-step Commands Treatment Interventions: Education;Self Care / Home Management;Energy Conservation Training;Strengthening;[place] a[place]a Training;Functional Mobility Training;Pain Management Plan for next visit: Chair/commode transfer training, Dressing training Home Environment Patient Lives With: Significant Other Assistance Available: 24-Hour Entry To Home: Stairs;With Rail Number Of Stairs Into Home: 8 Number Of Stairs To Bed/Bath: 0 Tub/Shower Type: tub shower (has tub bench but not currently using). Laundry: basement - patient completes Equipment Owned: Cane;Wheeled Walker;Shower Chair;Elevated Toilet Seat;Wheelchair - Manual;Long Handled Shoe Horn;Grab Bars-Shower;Grab Bars-Toilet;Hand Held Shower;Foreign Language Interpreter;Long Handled Sponge Prior Functional Level: Within Functional Limits Prior Functional Level Comments: Patient reports previous independence with ADLs/IADLs, ambulates without AD, drives Baseline Cognition: Oriented to self;Oriented to place;Oriented to time Occupational Factors Life Roles: Spouse/Significant Other Identified Strengths: Good Support System Identified Barriers: Difficulty with ADLs/IADLs Patient Report: I have asthma so the breathing exercises will help. I have trouble with getting my socks on and off. CURRENT FUNCTIONAL STATUS: Most recent performance Current Activities of Daily Living Assist Level Additional Information Feeding Modified Independent Grooming Supervision Bathing Upper Body Supervision Bathing Lower Body Minimal Assistance Dressing Upper Body Set Up Dressing Lower Body Minimal Assistance Toileting Supervision Instrumental Activities of Daily Living Assist Level Additional Information Meal/Beverage Prep Cleaning Laundry Medication Management with Strategies Functional Mobility Assist Level Additional Information Rolling Supine to Sit Sit to Supine Scooting Sit to Stand Supervision Stand to Sit Supervision Bed to Chair Contact Guard Assistance Stepping Wheeled Walker Toilet/Commode Minimal Assistance (reports having ETS for home use.) Shower Functional Mobility Supervision Wheeled Walker (250' x 2 laps) Blank borrero indicate activity not attempted Learning/Educational Needs: Discharge Plan;Functional Activities/Mobility;Plan of Care;Precautions;Self Care Goals for Plan of Care: Patient/Caregiver Goals: Reduce ADL/IADL barriers Goals: Patient will demonstrate progress with self-care, cognitive and/or coping needs identified to allow safe discharge to home with available support and/or physical assistance. Progress Toward Goals: Progressing as expected Rehab Potential: Good Patient will be discontinued from Occupational Therapy when no further skilled needs are identified in this setting. PLAN: OT Frequency: 3 times per week Plan of Care developed with: Patient TREATMENT INTERVENTIONS: Therapy Diagnosis: Reduced mobility-other;Decreased activities of daily living (ADL) Interventions Provided: Therapeutic Exercise (74935);Therapeutic Activity (41566);Self Correction Management (72262) Therapeutic Exercise (20712) Treatment Minutes: 10 $ Therapeutic Exercise (79445) Billed Units: 1 unit OT educated patient on AROM Bilateral UEs Pt performed shoulder IR/ER, elbow and wrist extension/flexion, hand extension/flexion, forearm supination/pronation and chest press Demonstration provided Issued literature Therapeutic Activity (04189) Treatment Minutes: 5 $ Therapeutic Activity (46584) Billed Units: 0 units OT educated patient on sit<>stand technique with proper hand placement and body positioning at (more content not included)... [facility] XR CHEST 1V FRONTALon 2021 XR CHEST 1V FRONTAL * * *Final Report* * * DATE OF EXAM: Jun 17 2022 8:25AM FVX 5290 - XR CHEST 1V FRONTAL / PROCEDURE REASON: Post-operative / post-procedure assessment, asymptomatic * * * * Physician Interpretation * * * * FRONTAL CHEST RADIOGRAPH HISTORY: Post-operative / post-procedure assessment, asymptomatic. TECHNIQUE: Frontal view of the chest was obtained. COMPARISON: 06/15/2022 RESULT: Status post median sternotomy. Left-sided chest tube. Subcutaneous emphysema left chest wall. Cardiomediastinal silhouette is unchanged. Patchy left perihilar opacity persists. Right lung is clear. No definite pleural effusion or pneumothorax. IMPRESSION: See result. Physical Chemistry Professor: AB Transcribe Date/Time: Jun 18 2022 7:49A Dictated by : KINJAL MARIE MD This examination was interpreted and the report reviewed and electronically signed by: KINJAL MARIE MD on Jun 18 2022 7:50AM EST [id number] [facility] ALLIED HEALTHon 06-15-2022 ALLIED HEALTH HNO ID: [id number] Author: RT Gustavo(R) Service: ? Author Type: Protection Agent Type: Allied Health Filed: 06/15/2022 12:15 PM Note Text: Radiology Service Progress Note PATIENT NAME: Jemima Bradford DATE OF SERVICE: June 15, 2022 TIME: 12:14 PM PATIENT IDENTITY VERIFICATION COMPLETED USING TWO (2) IDENTIFIERS: Name and Date of confirmed by patient verbally and Name and Date of confirmed by identification band. FALL SCREENING: Has the patient had 2 falls in the last year or 1 fall with injury or currently using an Ambulatory Assistive Device (Walker, Cane, Wheelchair, Crutches, etc.)? Inpatient: Screened on floor PATIENT GENDER DATA: Female. status: : No status: NO. PATIENT RELEVANT IMPLANT DATA REVIEWED: Not Applicable RADIOLOGY DEPARTMENT: General X-ray: Exam(s) Completed: Chest X-Ray PERIPHERAL IV DATA: Not applicable SIGNED BY: RT Gustavo(R) June 15, 2022 12:14 PM [facility] CASE MANAGEMon 06-15-2022 CASE MANAGEM HNO ID: [id number] Author: Katie Damon RN Service: ? Author Type: Registered Nurse Type: Care Mgt Progress Note Filed: 06/15/2022 1:44 PM Note Text: CARE MANAGEMENT PROGRESS NOTE SERVICE DATE: 06/15/2022 SERVICE TIME: 1:43 PM LOS: 2 days [place] Choice Given: Yes Level of Care Discussed: Home Care Provider List: Home Care Discussed [facility]. Prefers nori bryant. Has had in the past. SIGNATURE: Katie Damon RN PATIENT NAME: Jemima Bradford DATE: June 15, 2022 TIME: 1:42 PM PAGER/CONTACT #: [phone] [facility] CONSULT PROGon 06-15-2022 CONSULT PROG HNO ID: [id number] Author: Sydni Wolf APRN.CNP Service: Pain Management Author Type: Nurse Practitioner Type: Consult Progress Note Filed: 06/15/2022 1:06 PM Note Text: APMS PROGRESS NOTE PATIENT NAME: Jemima Bradford SERVICE DATE: 06/15/2022 SERVICE TIME: 09:55 AM ASSESSMENT Jemima Bradford is a 82 year old female who is POD# 2, S/P VATS and mediastinal lymph node dissection. Pain team was consulted for surgical site pain. Paravertebral nerve blocks at T5 and T7 single injections were performed yesterday preoperatively using exparel. This morning Ma. Bradford is resting in bed family at bedside, she reports improved pain control with current regimen Denies nay side effects PLAN/Recs: Continue flector patch BID may switch to Diclofenac gel at time of discharge Change lidocaine patch to qhs Continue robaxin 500mg q8hr with holding parameters Continue Oxycodone 5-10 mg PO Q 4 H PRN for moderate to severe pain Continue bowel regimen as long as taking opioids The plan was discussed in detail with patient +/- family, bedside RN, APMS staff and primary service, who expressed agreement, understanding and comfort with the plan. APMS will sign off and defer further management to primary team. If pain worsens or difficulties arise please reconsult APMS. Thank you for including us in her care. SUBJECTIVE CHIEF COMPLAINT: left sided pain PRIMARY SERVICE: Thoracic Surgery INTERVAL HPI: Jemima Bradford is a 82 year old female who is POD 2, S/P VATS with paravertebral nerve blocks. Pain level is 4 at rest 7 with ambulation on a scale of 0-10. Is the patient tolerating Physical Therapy?: yes Pain at surgical site? Yes improved Character: sharp Duration: consistent Radiation: No Relieved: yes Is patient satisfied with pain control: yes Overnight Events: None Overnight Pain Interventions: no Allergy: ALLERGIES Allergen Reactions Biaxin [Clarithromy* Unknown Contrast Dye Shortness of Breath Nickel Unknown Nitrous Oxide Vomiting Synvisc [Hylan G-F * Swelling Thorazine [Chlorpro* Rash MEDICATIONS: Adjuvant Pain Medication: See below. Current Facility-Administered Medications Medication Dose Route Frequency rosuvastatin 40 mg tab(s) (CRESTOR) 40 mg ORAL DAILY anastrozole 1 mg tab(s) (ARIMIDEX) 1 mg ORAL DAILY calcium carbonate 1,250 mg tab(s) (OS-MARIA FERNANDA 500) 1,250 mg ORAL DAILY zafirlukast 20 mg tab(s) (ACCOLATE) 20 mg ORAL DAILY furosemide 40 mg tab(s) (LASIX) 40 mg ORAL DAILY melatonin 9 mg tab(s) 9 mg ORAL AT BEDTIME PRN aspirin, enteric coated 81 mg tab(s) 81 mg ORAL DAILY pantoprazole DR 20 mg tab(s) (PROTONIX) 20 mg ORAL BEFORE BREAKFAST DAILY levothyroxine 50 mcg tab(s) (SYNTHROID) 50 mcg ORAL DAILY (6 AM) nitroglycerin sublingual 0.4 mg tab(s) (NITROQUICK) 0.4 mg SUBLINGUAL q 5 MIN PRN docusate sodium 100 mg cap(s) (COLACE) 100 mg ORAL BID metoprolol tartrate (short acting) 12.5 mg tab(s) (LOPRESSOR) 12.5 mg ORAL q 12 H ondansetron (PF) 4 mg injection (ZOFRAN) 4 mg INTRAVENOUS q 6 H PRN enoxaparin 40 mg injection (LOVENOX) 40 mg SUBCUTANEOUS q 24 HR NaCl 0.9% iv flush bag 20 mL INTRAVENOUS PRN acetaminophen 1,000 mg tab(s) (TYLENOL) 1,000 mg ORAL q 6 H oxyCODONE IR 5-10 mg tab(s) (ROXICODONE) 5-10 mg ORAL q 4 H PRN gabapentin 300 mg cap(s) (NEURONTIN) 300 mg ORAL q 12 H ipratropium-albuterol 3 mL nebulizer solution (DUONEB) 3 mL INHALATION TID methocarbamol 0.5 g injection (ROBAXIN) 0.5 g INTRAVENOUS q 8 H diclofenac 1.3 % 1 Patch (FLECTOR) 1 Patch TRANSDERMAL BID And diclofenac - REMOVE PATCH OTHER BID And diclofenac - VERIFY PATCH OTHER q 8 H lidocaine - VERIFY PATCH OTHER AT BEDTIME And lidocaine 4 % 1 Patch (SALONPAS) 1 Patch TRANSDERMAL DAILY AT 9 PM And lidocaine patch - REMOVE OTHER DAILY magnesium hydroxide 400 mg/5 mL 30 mL (MOM) 30 mL ORAL BID OBJECTIVE: PHYSICAL EXAM: BP 98/53 Pulse 88 Temp 37.2 ?C (99 ?F) (Oral) Resp 20 SpO2 91% Affect: awake, alert, and oriented General Impression: appears comfortable Respiratory Exam: Respirations: Breathing appears normal Thoracostomy tube?: Yes, how many? 1 Gastrointestinal Exam: Abdomen: deferred DATA: Lab Results Component Latest Ref Rng AND Units 06/14/2022 Glucose 74 - 99 mg/dL 124 (H) BUN 7 - 21 mg/dL 26 (H) Creatinine 0.58 - 0.96 mg/dL 1.06 (H) Sodium 136 - 144 mmol/L 138 Potassium 3.7 - 5.1 mmol/L 4.5 Chloride 97 - 105 mmol/L 105 CO2 22 - 30 mmol/L 25 Anion Gap 9 - 18 mmol/L 8 (L) Calcium 8.5 - 10.2 mg/dL 8.7 eGFR >=60 mL/min/1.73mA? 53 (L) Component Latest Ref Rng AND Units 06/14/2022 Glucose 74 - 99 mg/dL 124 (H) BUN 7 - 21 mg/dL 26 (H) Creatinine 0.58 - 0.96 mg/dL 1.06 (H) Sodium 136 - 144 mmol/L 138 Potassium 3.7 - 5.1 mmol/L 4.5 Chloride 97 - 105 mmol/L 105 CO2 22 - 30 mmol/L 25 Anion Gap 9 - 18 mmol/L 8 (L) Calcium 8.5 - 10.2 mg/dL 8.7 eGFR >=60 mL/min/1.73mA? 53 (L) SIG (more content not included)... [facility] NURSING PROGon 06-15-2022 NURSING PROG HNO ID: [id number] Author: Kaitlin Vázquez RN Service: ? Author Type: Registered Nurse Type: Nursing Progress Note Filed: 06/15/2022 7:04 AM Note Text: 191 Spoke to CTS orders received to straight cath patient x1 and will reevaluate in AM. Two unsuccessful attempts to straight cath patient. Purple team paged. 2014 Purple team at bedside. Straight cath pt. 900mL output. Pt tolerated procedure well. No complaints from pt at this time. Will continue to monitor. 0630 Multiple unsuccessful attempts to start IV. Critical Response RN called to start IV. [facility] THERAPY NTon 06-15-2022 THERAPY NT HNO ID: [id number] Author: Asya Alaniz OT/L Service: Occupational Therapy Author Type: Occupational Therapist Type: Therapy (PT/OT/Speech/Resp) Filed: 06/15/2022 1:27 PM Note Text: Occupational Therapy Evaluation SERVICE DATE: 06/15/2022 SERVICE TIME: 1200 to 1227 ROOM: [place] [address] Recommended Discharge Disposition: Home OT Anticipated Discharge Needs: Physical Assist at Home Physical Assist at Home for: Cleaning;Laundry;Meals;Sh opping;Transportation Recommended Discharge Equipment: No equipment needs anticipated OT 6 Clicks Score: 19 Precautions/Activity Restrictions: Bed/Chair Alarm;Abdominal;Fall Risk;Lines/Tubes/Drains Current Hospital Course: s/p robotic thoracoscopy/lobectomy with cryoanalgesia procedure segments 5-7 Reason for Hospital Admission: Left upper lobe adenocarcinoma Relevant Past Medical History: HTN, CAD, arthritis, asthma, right TKR, EJNNIFER, CVA, aortic valve repair Response to Therapy Interventions: Good participation in activities Continue skilled needs due to: Functional impairment Occupational Therapy Problem List: Pain;Decreased Activity Tolerance;Decreased Strength;Functional Mobility Impairment;Impaired Self Care Cognition/Communication Deficits Responsiveness: Alert, Awake Treatment Interventions: Education;Self Care / Home Management;Energy Conservation Training;Strengthening;Fu nctional Mobility Training Plan for next visit: Chair/commode transfer training, Sit to stand transfers Home Environment Patient Lives With: Significant Other Assistance Available: 24-Hour Entry To Home: Stairs;With Rail Number Of Stairs Into Home: 8 Number Of Stairs To Bed/Bath: 0 Tub/Shower Type: tub shower (has shower chair but not currently using). Laundry: basement - patient completes Equipment Owned: Cane;Wheeled Walker;Shower Chair;Elevated Toilet Seat;Wheelchair - Manual;Long Handled Shoe Horn;Grab Bars-Shower;Grab Bars-Toilet;Hand Held Shower;Foreign Language Interpreter Prior Functional Level: Within Functional Limits Prior Functional Level Comments: Patient reports previous independence with ADLs/IADLs, ambulates without AD, drives CURRENT FUNCTIONAL STATUS: Most recent performance Current Activities of Daily Living Assist Level Additional Information Feeding Set Up Grooming Contact Guard Assistance (standing at sink.) Bathing Upper Body Stand By Assistance Bathing Lower Body Minimal Assistance Dressing Upper Body Set Up Dressing Lower Body Moderate Assistance (declines AE - spouse to assist at home.) Toileting Contact Guard Assistance Instrumental Activities of Daily Living Assist Level Additional Information Meal/Beverage Prep Cleaning Laundry Medication Management with Strategies Functional Mobility Assist Level Additional Information Rolling Supine to Sit Sit to Supine Scooting Sit to Stand Contact Guard Assistance Stand to Sit Contact Guard Assistance Bed to Chair Contact Guard Assistance Stepping Wheeled Walker Toilet/Commode Minimal Assistance (reports having ETS for home use.) Shower Functional Mobility Contact Guard Assistance (Functional mobility in room/BR with CGA with FWW.) Wheeled Walker Blank borrero indicate activity not attempted Learning/Educational Needs: Discharge Plan;Functional Activities/Mobility;Plan of Care;Precautions;Self Care Goals for Plan of Care: Patient/Caregiver Goals: Reduce ADL/IADL barriers Goals: Patient will demonstrate progress with self-care, cognitive and/or coping needs identified to allow safe discharge to home with available support and/or physical assistance. Rehab Potential: Good Patient will be discontinued from Occupational Therapy when no further skilled needs are identified in this setting. PLAN: OT Frequency: 3 times per week Plan of Care developed with: Patient;Family TREATMENT INTERVENTIONS: Therapy Diagnosis: Reduced mobility-other;Decreased activities of daily living (ADL) Interventions Provided: Evaluation;Self Correction Management (48992) $ Evaluation-Moderate (16992) Billed Units: 1 unit Self Correction Management (81763) Treatment Minutes: 8 $ Self Correction Management (12695) Billed Units: 1 unit Training AND education provided in: Activity adaption / compensatory strategies, Adaptive equipment / DME, Benefits of in-hospital mobility, Discharge planning, Functional mobility involving ADLs, Energy conservation, Lower extremity dressing, Precautions/restrictions, Role of Occupational Therapy, Toileting , Transfer - Bed to chair, Transfer - Sit to stand, Transfer - Toilet/commode The following therapeutic skills were used: Activity dosing, Cuing verbal, Movement facilitation, Muscle activation facilitation, Physical assist, Therapeutic use of self Timed Code Treatment (minutes): 8 Skilled Treatment Time (minutes): 23 Please see discipline specific clinical documentation flowsheet for complete details for this therapy evaluation/treatment. SIGNA (more content not included)... Normal [facility] THERAPY NT HNO ID: [id number] Author: Juan David Meredith, PT Service: Physical Therapy Author Type: Physical Therapist Type: Therapy (PT/OT/Speech/Resp) Filed: 06/15/2022 11:21 AM Note Text: Physical Therapy Treatment SERVICE DATE: 06/15/2022 SERVICE TIME: 1036 to 1106 ROOM: [place] [address] Recommended Discharge Disposition: Home PT Recommended Discharge Disposition Comments: Patient will benefit from home PT for strengthening and improvement in activity tolerance. Anticipated Discharge Needs: Physical Assist at Home Physical Assist at Home for: Cleaning;Laundry;Meals;Sh opping;Transportation PT 6 Clicks Score: 19 Precautions/Activity Restrictions: Bed/Chair Alarm;Abdominal;Fall Risk;Lines/Tubes/Drains Current Hospital Course: s/p robotic thoracoscopy/lobectomy with cryoanalgesia procedure segments 5-7 Reason for Hospital Admission: Left upper lobe adenocarcinoma Relevant Past Medical History: HTN, CAD, arthritis, asthma, right TKR, JENNIFER, CVA, aortic valve repair Response to Therapy Interventions: Good participation in activities, Improved tolerance for activity, Notable progression with functional activities/skills Assessment Comments: Patient tolerating ambulation well without supplemental O2. Patient initially on 1.5L via NC during ambulation with RN present deciding to take patient off O2. Patient maintained SpO2 in the low 90s on RA for remaining 200 ft of ambulation. Continue skilled needs due to: Continued monitoring of vital signs during mobility required, Functional mobility/skill impairments Physical Therapy Problem List: Pain;Decreased Activity Tolerance;Decreased Range Of Motion;Decreased Strength;Functional Mobility Impairment;Balance Impaired Treatment Interventions: Education;Strengthening;F unctional Mobility Training;Balance Training;Neuromuscular Re-education;Pain Management;Energy Conservation Training Plan for next visit: Bed mobility, Fall prevention, Gait training, Exercise instruction/handout, Pre-gait activities, Sit to Stand Transfers, Standing Tolerance, Sitting balance, Standing Balance, Walker Training Home Environment Patient Lives With: Significant Other Assistance Available: PRN Entry To Home: Stairs;With Rail Number Of Stairs Into Home: 8 Number Of Stairs To Bed/Bath: 0 Tub/Shower Type: tubshower Laundry: basement - patient completes Equipment Owned: Cane;Wheeled Walker Prior Functional Level: Within Functional Limits Prior Functional Level Comments: Patient reports previous independence with ADLs/IADLs, ambulates without AD, drives Patient Report: Patient pleasant and agreeable to PT treatment CURRENT FUNCTIONAL STATUS: Most recent performance Current Functional Mobility Assist Level Additional Information Rolling Stand By Assistance Supine to Sit Minimal Assistance (handheld assist for uprighting of trunk) Sit to Supine Scooting Moderate Assistance Sit to Stand Minimal Assistance (x2 trials one for bed and one from chair. Verbal cues for hand placement. Patient requires additional time to complete) Stand to Sit Contact Guard Assistance Bed to Chair Toilet/Commode Gait Contact Guard Assistance Gait Device: Wheeled Walker Gait Distance (feet): 15 ft to bed + 250 ft Stairs Curb Step Car Transfer Blank borrero indicate activity not attempted General Deviations/Observations: [place] decreased;Difficulty changing direction/turning;Flexed trunk posture;Step length decreased Balance: Static Sitting;Dynamic Sitting;Static Standing;Dynamic Standing Static Sitting Balance: Normal Patient able to maintain steady balance without handhold support Dynamic Sitting Balance: Good Patient accepts moderate challenge, able to maintain balance while picking up object off floor Static Standing Balance: Good Patient able to maintain balance without handhold support, limited postural sway Dynamic Standing Balance: Fair Patient accepts minimal challenge, able to maintain balance while turning head/trunk Activity Tolerance: Standing Activity Standing Activity: sit to stand, gait Standing Activity Tolerance (in minutes): 8 JH-HLM: 8: Walk 250 feet or more Learning/Educational Needs: Discharge Plan;Functional Activities/Mobility;Pain Management;Plan of Care;Precautions;Rehabili tation Techniques and Procedures;Safety Goals for Plan of Care: Patient /Caregiver Goals: Go Home Goals: Patient will demonstrate progress with functional mobility to allow safe discharge to home with available support and/or physical assistance. Transfer Supine to/from Sit with: Stand By Assistance Transfer Sit to/from Stand with: Stand By Assistance Ambulate with: Stand By Assistance Distance: 100 ft Device: Wheeled Walker Ambulate Up and Down Steps with: Contact Guard Assistance Number of Steps: 8 Device: Rail Progress Toward Goals: Progressing as expected Rehab Potential: Good Patient will be discontinued from Physical Therapy when no furth (more content not included)... Normal [facility] XR CHEST 1V FRONTALon 2021 XR CHEST 1V FRONTAL * * *Final Report* * * DATE OF EXAM: Jun 15 2022 12:15PM FVX 5290 - XR CHEST 1V FRONTAL / PROCEDURE REASON: Post-operative / post-procedure assessment, asymptomatic * * * * Physician Interpretation * * * * EXAMINATION: CHEST RADIOGRAPH (SINGLE VIEW AP OR PA) CLINICAL HISTORY: Post-operative / post-procedure assessment, asymptomatic MQ: XC1_5 Comparison: Chest x-ray 06/13/20202021 RESULT: Lines, tubes, and devices: Left-sided chest tube. Sternotomy wires. Lungs and pleura: Lucency in the left apex although pleural line not seen. Atelectasis in lung bases bilaterally. No pleural effusions. Cardiomediastinal silhouette: Cardiomegaly Other: Subcutaneous gas in the left chest wall. IMPRESSION: Lucency in the left apex although pleural line not seen. Findings could reflect a moderate apical pneumothorax. Recommend continued follow-up. Atelectasis in the lung bases bilaterally. Physical Chemistry Professor: AB Transcribe Date/Time: Jun 15 2022 1:00P Dictated by : MIRANDA LOCKE MD This examination was interpreted and the report reviewed and electronically signed by: MIRANDA LOCKE MD on Jun 15 2022 1:03PM EST [id number] Normal [facility] Basic metabolic 2000 panelon 06-14-2022 Anion gap [Moles/Vol] 8 mmol/L Low 9-18 [facility] Comment on above: Order Comment: Speci men Type: BLOOD SPECIMENOrdering Facility: [facility] Address: [address] [place] [place] [address] Performed By: #### 2 4321-2 ####[facility]ATORYCLIA [id number] [place] [address] [place] Calcium [Mass/Vol] 8.7 mg/dL Normal 8.5-10.2 [facility] Comment on above: Order Comment: Speci men Type: BLOOD SPECIMENOrdering Facility: [facility] Address: [address] [place] [address] Performed By: #### 2 4321-2 ####[facility]ORYCLIA [id number] [place] [address] [place] Chloride [Moles/Vol] 105 mmol/L Normal 97-105 [facility] Comment on above: Order Comment: Speci men Type: BLOOD SPECIMENOrdering Facility: [facility] Address: [address] [place] [place] [address] Performed By: #### 2 4321-2 ####[facility]ORYCLIA [id number] [place] [address] [place] CO2 [Moles/Vol] 25 mmol/L Normal 22-30 [facility] Comment on above: Order Comment: Speci men Type: BLOOD SPECIMENOrdering Facility: [facility] Address: [address] [place] [place] [address] Performed By: #### 2 4321-2 ####[facility]ATORYCLIA [id number] [place] [address] [place] Creatinine [Mass/Vol] 1.06 mg/dL High 0.58-0.96 [facility] Comment on above: Order Comment: Speci men Type: BLOOD SPECIMENOrdering Facility: [facility] Address: [address] [place] [address] Performed By: #### 2 4321-2 ####[facility]ATORYCLIA [id number] [place] [address] [place] ESTIMATED GLOMERULAR FILTRATION RATE 53 mL/min/1.73m??? Low >=60 [facility] Comment on above: Order Comment: Mary Kay rausch Type: BLOOD SPECIMENOrdering Facility: [facility] Address: [address] [place] [address] Result Comment: Dee mated Glomerular Filtration Rate (eGFR) is calculated using the 2020 CKD-EPI creatinine equation. This equation utilizes serum creatinine, sex, and age as parameters. The creatinine assay has traceable calibration to isotope dilution-mass spectrometry. Refer to KDIGO guidelines for clinical interpretation. In patients with unstable renal function, e.g. those with acute kidney injury, the eGFR may not accurately reflect actual GFR. Performed By: #### 2 4321-2 ####[facility]ATORYCLIA [id number] [place] [address] [place] Glucose [Mass/Vol] 124 mg/dL High 74-99 [facility] Comment on above: Order Comment: Specjose rausch Type: BLOOD SPECIMENOrdering Facility: [facility] Address: [address] [place] [address] Result Comment: The [place] Diabetes Association (ADA) provides guidance for cutoff [...] Standards of Medical Care in Diabetes 2016, [place] [employer]. Diabetes Care. 2016.39(Suppl 1). Performed By: #### 2 4321-2 ####[facility]ORYCLIA [id number] [place] [id number] [place] Potassium [Moles/Vol] 4.5 mmol/L Normal 3.7-5.1 [facility] Comment on above: Order Comment: Speci men Type: BLOOD SPECIMENOrdering Facility: [facility] Address: [address] [address] Performed By: #### 2 4321-2 ####[facility] LABORATORYCLIA [id number] [place] [id number] [place] Sodium [Moles/Vol] 138 mmol/L Normal 136-144 [facility] Comment on above: Order Comment: Speci men Type: BLOOD SPECIMENOrdering Facility: [facility] Address: [address] [place] [address] Performed By: #### 2 4321-2 ####[facility]ATORYCLIA [id number] [place] [id number] [place] Urea nitrogen [Mass/Vol] 26 mg/dL High 7-21 [facility] Comment on above: Order Comment: Speci men Type: BLOOD SPECIMENOrdering Facility: [facility] Address: [address] [place] [address] Performed By: #### 2 4321-2 ####[facility]ORYCLIA [id number] [address] [place] CASE MGT INIT ASSESon 2021 CASE MGT INIT ASSES HNO ID: [id number] Author: Katie Damon RN Service: ? Author Type: Registered Nurse Type: Care Mgt Initial Assessment Filed: 06/14/2022 2:28 PM Note Text: CARE MANAGEMENT: ASSESSMENT AND DISCHARGE PLAN SERVICE DATE: June 14, 2022 SERVICE TIME: 2:25 PM PRIMARY CARE PHYSICIAN: Jasmyne Casillas NP, LAMBSKIN TRIMMER Primary Contact: Extended Emergency Contact Information Primary Emergency Contact: Lucia Mueller Mobile Relation: Daughter Secondary Emergency Contact: Triston Bradford Mobile Relation: Son ADMISSION STATUS: Inpatient Insurance Provider: MEDICARE A AND B NEEDS PRIOR TO DISCHARGE Needs Prior to Discharge: Discharge Prescriptions;Desat Study POTENTIAL TRANSITION PLANS No Services Indicated Based on clinical judgement, Care Management will address the following needs: No transitional/discharge planning needs at this time Patient's perception of need for this admission: lung mass ADVANCE DIRECTIVES Current Advance Directive: Health Care Power of Bed Teacher;Living Will In Chart: Yes Up To Date and Valid: Yes MS/BEHAVIOR Baseline Mental Status Prior to this Illness what was the patient's Baseline Mental Status?: Alert AND Oriented Prior to this illness, has anyone described the patient having any of the following behaviors?: Not Applicable Relationship of the informant to the patient:: Daughter Name of Informant: : Lucia Mueller (Daughter) READMISSION Last Discharge Date: 07/30/15 Is this Within the Past 30 days? 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 scores in the EMR?: No Any potential risks related to substance abuse and/or behavioral health?: No Based on clinical judgement, Care Management will address the following needs: No transitional/discharge planning needs at this time CAREGIVER ASSESSMENT Caregiver is ready, willing and able to meet the patient's needs as recommended by the inter-professional team:: No Caregiver needed Patient's transition needs and plan for meeting these needs: have asked for PT OT to see. per nursing assessment she has had decline in mobility. Lives with dtr at bedside MEDICAL Medical Needs: Two or more chronic diseases Health Issues Impacting Discharge Plan: Chronic;Newly diagnosed Newly Diagnosed: lung mass LEFT ROBOTIC ASSISTED UPPER LOBE SEGMENTECTOMY, LEFT UPPER LOBECTOMY, MEDIASTINAL LYMPH NODE DISSECTION Chronic: cva cad breast CA ckd JENNIFER Medication Adherance I am convinced of the importance of my prescription medication: 0 - Agree Completely I worry that my prescription medication will do more harm than good to me : 0 - Disagree Completely I feel financially burdened by my psa-sr-ytmtjd expenses for my prescription medication:: 0 - Disagree Completely Risk Score: 0 Patient is categorized as: Low risk < 2 FREEDOM OF CHOICE EXPLAINED: [place] of Choice Given: No Reason Not Given: No placements necessary Are you interested in bedside delivery of your medications? Yes Is Patient Psychosocially Complex?: No ASSESSMENT AND PLAN: Pt lives with her who has early dementia. Pt has completed new poa papers and made her dtr 1#. They were scanned into the computer. SIGNATURE: Katie Damon RN PATIENT NAME: Jemima Bradford DATE: June 14, 2022 TIME: 2:24 PM CONTACT #: [phone] Normal [facility] CBC panel Auto (Bld)on 06-14 Erythrocyte distribution width (RBC) [Ratio] 14.8 % Normal 11.5-15.0 [facility] Comment on above: Order Comment: Mary Kay rausch Type: BLOOD SPECIMEN Ordering Facility: [facility] Address: [address] [place] [address] Performed By: #### 5 8410-2 #### [facility] CLIA [id number] [address] [place] [address] [place] Hematocrit (Bld) [Volume fraction] 32.4 % Low 36.0-46.0 [facility] Comment on above: Order Comment: Mary Kay rausch Type: BLOOD SPECIMEN Ordering Facility: [facility] Address: [address] [place] [address] Performed By: #### 5 8410-2 #### [facility] CLIA [id number] [address] [place] [address] [place] Hemoglobin (Bld) [Mass/Vol] 10.6 g/dL Low 11.5-15.5 [facility] Comment on above: Order Comment: Mary Kay rausch Type: BLOOD SPECIMEN Ordering Facility: [facility] Address: [address] [place] [address] Performed By: #### 5 8410-2 #### [facility] CLIA [id number] [address] [place] [address] [place] MCH (RBC) [Entitic mass] 28.6 pg Normal 26.0-34.0 [facility] Comment on above: Order Comment: Shadii miracle Type: BLOOD SPECIMEN Ordering Facility: [facility] Address: [address] [address] Performed By: #### 5 8410-2 #### [facility] CLIA [id number] [address] [place] [address] [place] MCHC (RBC) [Mass/Vol] 32.7 g/dL Normal 30.5-36.0 [facility] Comment on above: Order Comment: Speci men Type: BLOOD SPECIMEN Ordering Facility: [facility] Address: [address] [address] Performed By: #### 5 8410-2 #### [facility] CLIA [id number] [address] [place] [address] [facility] [place] MCV (RBC) [Entitic vol] 87.3 fL Normal 80.0-100.0 [facility] Comment on above: Order Comment: Speci men Type: BLOOD SPECIMEN Ordering Facility: [facility] Address: [address] [address] Performed By: #### 5 8410-2 #### [facility] CLIA [id number] [address] [place] [address] [place] Nucleated RBC (Bld) [#/Vol] 10*3/uL Normal <0.01 [facility] Comment on above: Order Comment: Speci men Type: BLOOD SPECIMEN Ordering Facility: [facility] Address: [address] [address] Performed By: #### 5 8410-2 #### [facility] CLIA [id number] [address] [place] [address] [place] Platelet mean volume (Bld) [Entitic vol] 10.6 fL Normal 9.0-12.7 [facility] Comment on above: Order Comment: Speci men Type: BLOOD SPECIMEN Ordering Facility: [facility] Address: [address] [address] Performed By: #### 5 8410-2 #### [facility] CLIA [id number] [address] [place] [address] [place] Platelets (Bld) [#/Vol] 121 10*3/uL Low 150-400 [facility] Comment on above: Order Comment: Speci men Type: BLOOD SPECIMEN Ordering Facility: [facility] Address: [address] [place] [address] Performed By: #### 5 8410-2 #### [facility] CLIA [id number] [address] [place] [address] [place] RBC (Bld) [#/Vol] 3.71 10*6/uL Low 3.90-5.20 [facility] Comment on above: Order Comment: Speci men Type: BLOOD SPECIMEN Ordering Facility: [facility] Address: [address] [place] [address] Performed By: #### 5 8410-2 #### [facility] CLIA [id number] [address] [place] [address] [place] WBC (Bld) [#/Vol] 7.45 10*3/uL Normal 3.70-11.00 [facility] Comment on above: Order Comment: Speci men Type: BLOOD SPECIMEN Ordering Facility: [facility] Address: [address] [place] [address] Performed By: #### 5 8410-2 #### [facility] CLIA [id number] [address] [place] [address] CONSULT PROGon 06-14-2022 CONSULT PROG HNO ID: [id number] Author: Derrick Bloom DO Service: Pain Management Author Type: Anesthesiologist Type: Consult Progress Note Filed: 06/14/2022 2:50 PM Note Text: APMS PROGRESS NOTE PATIENT NAME: Jemima Bradford SERVICE DATE: 06/14/2022 SERVICE TIME: 10:45 AM ASSESSMENT Jemima Bradford is a 82 year old female who is POD# 1, S/P VATS and mediastinal lymph node dissection. Pain team was consulted for surgical site pain. Paravertebral nerve blocks at T5 and T7 single injections were performed yesterday preoperatively using exparel. She stated that her pain was controlled until 9AM this morning. Patient is not a candidate for a reblock at this time 2/2 use of exparel. We will medically manage with the regimen below. Patient did have cryo performed intraoperatively which should take effect within the next 24-48 hours. PLAN Add flector patch Change lidocaine patch to qhs Add robaxin 500mg q8hr Cont oxy 5-10 mg Patient received block with exparel, yesterday not a candidate for re-block SUBJECTIVE CHIEF COMPLAINT: left sided pain PRIMARY SERVICE: Thoracic Surgery INTERVAL HPI: Jemima Bradford is a 82 year old female who is POD 1, S/P VATS with paravertebral nerve blocks. Pain level is 8 at rest 9 with ambulation on a scale of 0-10. Is the patient tolerating Physical Therapy?: No - pain Pain at surgical site? Yes Character: sharp Duration: consistent Radiation: No Relieved: pain was relieved until PNB ended, adjusted patient pain regimen Is patient satisfied with pain control: No Overnight Events: None Overnight Pain Interventions: no Allergy: ALLERGIES Allergen Reactions Biaxin [Clarithromy* Unknown Contrast Dye Shortness of Breath Nickel Unknown Nitrous Oxide Vomiting Synvisc [Hylan G-F * Swelling Thorazine [Chlorpro* Rash MEDICATIONS: Adjuvant Pain Medication: See below. Current Facility-Administered Medications Medication Dose Route Frequency rosuvastatin 40 mg tab(s) (CRESTOR) 40 mg ORAL DAILY anastrozole 1 mg tab(s) (ARIMIDEX) 1 mg ORAL DAILY calcium carbonate 1,250 mg tab(s) (OS-MARIA FERNANDA 500) 1,250 mg ORAL DAILY zafirlukast 20 mg tab(s) (ACCOLATE) 20 mg ORAL DAILY furosemide 40 mg tab(s) (LASIX) 40 mg ORAL DAILY melatonin 9 mg tab(s) 9 mg ORAL AT BEDTIME PRN aspirin, enteric coated 81 mg tab(s) 81 mg ORAL DAILY pantoprazole DR 20 mg tab(s) (PROTONIX) 20 mg ORAL BEFORE BREAKFAST DAILY levothyroxine 50 mcg tab(s) (SYNTHROID) 50 mcg ORAL DAILY (6 AM) nitroglycerin sublingual 0.4 mg tab(s) (NITROQUICK) 0.4 mg SUBLINGUAL q 5 MIN PRN docusate sodium 100 mg cap(s) (COLACE) 100 mg ORAL BID metoprolol tartrate (short acting) 12.5 mg tab(s) (LOPRESSOR) 12.5 mg ORAL q 12 H ondansetron (PF) 4 mg injection (ZOFRAN) 4 mg INTRAVENOUS q 6 H PRN enoxaparin 40 mg injection (LOVENOX) 40 mg SUBCUTANEOUS q 24 HR NaCl 0.9% iv flush bag 20 mL INTRAVENOUS PRN dextrose 5% in NaCl 0.45% with 20 mEq/L KCl iv infusion 80 mL/hr INTRAVENOUS CONTINUOUS acetaminophen 1,000 mg tab(s) (TYLENOL) 1,000 mg ORAL q 6 H oxyCODONE IR 5-10 mg tab(s) (ROXICODONE) 5-10 mg ORAL q 4 H PRN gabapentin 300 mg cap(s) (NEURONTIN) 300 mg ORAL q 12 H ipratropium-albuterol 3 mL nebulizer solution (DUONEB) 3 mL INHALATION TID lactated ringers iv infusion 30 mL/hr INTRAVENOUS CONTINUOUS lidocaine 4 % 1 Patch (SALONPAS) 1 Patch TRANSDERMAL DAILY AT 9 PM And lidocaine patch - REMOVE OTHER DAILY And lidocaine - VERIFY PATCH OTHER q 8 H OBJECTIVE: PHYSICAL EXAM: BP (!) 100/40 Pulse 61 Temp 37.3 ?C (99.1 ?F) (Oral) Resp 16 SpO2 94% Affect: awake, alert, and oriented General Impression: appears uncomfortable Catheter site is NA. Sensory exam: Surgical limb: intact Other limb: deferred Motor Exam: Surgical limb: NA Other limb: NA Respiratory Exam: Respirations: Breathing appears normal Thoracostomy tube?: Yes, how many? 1 Gastrointestinal Exam: Abdomen: deferred DATA: Lab Results APTT 25.6 05/30/2022 PT Sec 11.3 05/30/2022 PT INR 1.1 05/30/2022 Hemoglobin 10.6 06/14/2022 Hematocrit 32.4 06/14/2022 Platelet Count 121 06/14/2022 Discussed the patient?s progress and plan of care with Dr. Bloom. SIGNATURE:Darryn Bernal DO PATIENT NAME: Jemima Bradford DATE: June 14, 2022 TIME: 10:45 AM PAGER/CONTACT #: [facility] [phone] Attending Note TEACHING PHYSICIAN NOTE OF PERSONAL INVOLVEMENT IN CARE: I have personally seen and examined the patient and performed the medical decision-making components. I have reviewed the resident's documentation and verified the findings in the note as written. Any additions or changes have been made by myself. Signature: Derrick Bloom, Date: 06/14/2022 Time: 2:50 PM [facility] NURSING PROGon 06-14-2022 NURSING PROG HNO ID: [id number] Author: Suha Gold, REBECCA Service: Nursing Author Type: Registered Nurse Type: Nursing Progress Note Filed: 06/14/2022 6:31 PM Note Text: Other: daily note: received order to DC Cho, catheter removed pt denies any pain/burning at this time. Attempted to get patient up to sit in chair, she c/o dizziness and pain, pain med given per order, pain management resident at bed side, new orders received, see AUG. Pt back in bed now, female external cath on because pt unable to get out of bed. Pt resting in bed, call light in reach 1830 paging to cardio thoracic-Ks, Mrs Bradford, cho removed this AM at 1140, she has not void yet, bladder scan shown >300, please advise. thank you [facility] THERAPY NTon 06-14-2022 THERAPY NT HNO ID: [id number] Author: Juan David Meredith, PT Service: Physical Therapy Author Type: Physical Therapist Type: Therapy (PT/OT/Speech/Resp) Filed: 06/14/2022 4:59 PM Note Text: Physical Therapy Evaluation SERVICE DATE: 06/14/2022 SERVICE TIME: 1533 to 1605 ROOM: [place] [address] Recommended Discharge Disposition: Home PT Recommended Discharge Disposition Comments: Patient will benefit from home PT for strengthening and improvement in activity tolerance. Anticipated Discharge Needs: Physical Assist at Home Physical Assist at Home for: Cleaning;Laundry;Meals;Sh opping;Transportation PT 6 Clicks Score: 17 Precautions/Activity Restrictions: Bed/Chair Alarm;Abdominal;Fall Risk;Lines/Tubes/Drains Current Hospital Course: s/p robotic thoracoscopy/lobectomy with cryoanalgesia procedure segments 5-7 Reason for Hospital Admission: Left upper lobe adenocarcinoma Relevant Past Medical History: HTN, CAD, arthritis, asthma, right TKR, JENNIFER, CVA, aortic valve repair Response to Therapy Interventions: Good participation in activities, Pain, Requires additional time to complete activities, Low activity tolerance, Multiple ongoing medical issues Assessment Comments: Patient tolerating mobility to chair well this date with minimal increase in SOB. Patient expected to progress well during hospital stay and be safe to return home. RN present during ambulation to chair and allowed patient to take supplemental O2 off during mobility. Continue skilled needs due to: Continued monitoring of vital signs during mobility required, Functional mobility/skill impairments Physical Therapy Problem List: Pain;Decreased Activity Tolerance;Decreased Range Of Motion;Decreased Strength;Functional Mobility Impairment;Balance Impaired Treatment Interventions: Education;Strengthening;F unctional Mobility Training;Balance Training;Neuromuscular Re-education;Pain Management;Energy Conservation Training Plan for next visit: Bed mobility, Fall prevention, Gait training, Exercise instruction/handout, Pre-gait activities, Sit to Stand Transfers, Standing Tolerance, Sitting balance, Standing Balance, Walker Training Home Environment Patient Lives With: Significant Other Assistance Available: PRN Entry To Home: Stairs;With Rail Number Of Stairs Into Home: 8 Number Of Stairs To Bed/Bath: 0 Tub/Shower Type: tubshower Laundry: basement - patient completes Equipment Owned: Cane;Wheeled Walker Prior Functional Level: Within Functional Limits Prior Functional Level Comments: Patient reports previous independence with ADLs/IADLs, ambulates without AD, drives Patient Report: Patient pleasant and agreeable to PT evaluation CURRENT FUNCTIONAL STATUS: Most recent performance Current Functional Mobility Assist Level Additional Information Rolling Stand By Assistance Supine to Sit Minimal Assistance (handheld assist for uprighting of trunk) Sit to Supine Scooting Moderate Assistance Sit to Stand Moderate Assistance (verbal cues for hand placement and anterior weight shift) Stand to Sit Contact Guard Assistance (verbal cues to reach back with both hands to chair) Bed to Chair Toilet/Commode Gait Contact Guard Assistance (verbal cues for upright posture and increased step length) Gait Device: Wheeled Walker Gait Distance (feet): 15 ft around bed to chair Stairs Curb Step Car Transfer Blank borrero indicate activity not attempted General Deviations/Observations: [place] decreased;Difficulty changing direction/turning;Flexed trunk posture;Step length decreased Balance: Static Sitting;Dynamic Sitting;Static Standing;Dynamic Standing Static Sitting Balance: Normal Patient able to maintain steady balance without handhold support Dynamic Sitting Balance: Good Patient accepts moderate challenge, able to maintain balance while picking up object off floor Static Standing Balance: Fair Patient able to maintain balance with handhold support, may require occasional minimal assistance Dynamic Standing Balance: Fair Patient accepts minimal challenge, able to maintain balance while turning head/trunk Activity Tolerance: Standing Activity Standing Activity: sit to stand, gait Standing Activity Tolerance (in minutes): 3 JH-HLM: 6: Walk 10 steps or more Learning/Educational Needs: Discharge Plan;Functional Activities/Mobility;Pain Management;Plan of Care;Precautions;Rehabili tation Techniques and Procedures;Safety Goals for Plan of Care: Patient /Caregiver Goals: Go Home Goals: Patient will demonstrate progress with functional mobility to allow safe discharge to home with available support and/or physical assistance. Transfer Supine to/from Sit with: Stand By Assistance Transfer Sit to/from Stand with: Stand By Assistance Ambulate with: Stand By Assistance Distance: 100 ft Device: Wheeled Walker Ambulate Up and Down Steps with: Contact Guard Assistance Number of Steps: 8 Device: Rail Rehab Pote (more content not included)... Normal [facility] ALK (D5F3)on 06-13-2022 ALK-D5F3 [facility] Comment on above: Order Comment: Speci men Type: BLOOD SPECIMEN Ordering Facility: [facility] Address: [address] [place] [id number] Result Comment: Lung Biomarkers ALK (D5F3) IMMUNOHISTOCHEMISTRY ASSAY Results: Interpretation: Positive Tissue Analyzed: Lung Block evaluated: I7 Reference range for ALK (D5F3): Positive: strong and diffuse cytoplasmic staining in any number of tumor cells Equivocal: weak and/or focal cytoplasmic staining Negative: absence of cytoplasmic staining tumor cells. Interpretation comments: As fluorescent in situ hybridization can be useful in resolving equivocal IHC results, any equivocal results will be reflexed to ALK-FISH. The results of the molecular study will be reported separately. METHODS: Immunohistochemistry was performed on formalin fixed paraffin-embedded tissue using the rabbit monoclonal antibody D5F3 ([employer], [place], [place]) followed by ultrasensitive bright field detection (Optiview with amplification [[employer], [place], [place]]). Laboratory Developed Test (LDT) Disclaimer: Performance characteristics of immunohistochemical, immunofluorescent and chromogenic in-situ hybridization tests have been determined by the performing laboratory within [facility] [place] ([facility], [facility], [facility] or [facility]) in a manner consistent with CLIA requirements. One or more of these tests have not been cleared or approved by the FDA. [facility] is regulated under CLIA as qualified to perform high-complexity testing. These tests are used for clinical purposes. They should not be regarded as investigational or for research. Positive and negative controls stain appropriately. Reference: Artie M, Sanchez LR, K, et al. A novel, highly sensitive antibody allows for the routine detection of ALK- rearranged lung adenocarcinomas by standard immunohistochemistry. Clin Cancer Res; 16 (5): 1561-71, 2010. The diagnostic interpretation was performed at [place] [address] CLIA# [id number] Electronically signed out by: Jasper Lim MD Performed By: #### 2 4321-2, 61070-5 #### [facility] CLIA [id number] [address] [place] [address] ANES POSTPROC EVALon 022 ANES POSTPROC EVAL HNO ID: [id number] Author: Ra Starr DO Service: Anesthesiology Author Type: Anesthesiologist Type: Anesthesia Postprocedure Evaluation Filed: 06/13/2022 2:41 PM Note Text: POST ANESTHESIA EVALUATION NOTE : 1940 Procedure Summary Date: 06/13/22 Room / Location: [place] [address] / OR Anesthesia Start: 45 Anesthesia Stop: 1343 Procedure: ROBOTIC THORACOSCOPY; LOBECTOMY, TOTAL OR SEGMENTAL (Left: Chest) Diagnosis: Malignant neoplasm of upper lobe of left lung (HCC) (Malignant neoplasm of upper lobe of left lung (HCC) [C34.12]) Surgeons: Mitzi Amaral MD Responsible Provider: Ra Starr DO Anesthesia Type: general ASA Status: 3 Anesthesia Type: general Airway Type: ETT Last Vitals Vitals Value Taken Time BP 122/66 06/13/22 1430 Temp 36.5 ?C (97.7 ?F) 06/13/22 1338 Pulse 64 06/13/22 1440 Resp 21 06/13/22 1440 SpO2 96 % 06/13/22 1440 Vitals shown include unvalidated device data. Post Anesthesia Patient Status Patient Evaluation: PACU. PACU/ICU Patient Condition: stable. Anticipated Disposition: inpatient floor planned admission. Neurological Status: sleepy but arousable. Pulmonary Status: breathing comfortably on supplemental oxygen Airway Control: returned to baseline unsupported. Cardiovascular Status: stable. Pain Management: clinically adequate - multimodal analgesia pain management approach Postoperative Hydration: acceptable. Intraoperative Events: no significant anesthesia events Post Operative Nausea/Vomiting Status: no significant post operative nausea or vomiting Recommendation: continue current plan of care and further care per PACU/ICU/floor team. Anesthesia Observations No Documentation SIGNATURE: Ra Starr DO PATIENT NAME: Jemima Bradford DATE: June 13, 2022 TIME: 2:40 PM CSN: [id number] [facility] ANES PRE-OPon 06-13-2022 ANES PRE-OP HNO ID: [id number] Author: Ra Starr DO Service: Anesthesiology Author Type: Anesthesiologist Type: Anesthesia Preprocedure Evaluation Filed: 06/13/2022 8:34 AM Note Text: ANESTHESIOLOGY DAY OF SURGERY NOTE : 1940 Procedure Information Anesthesia Start Date/Time: 06/13/22 0745 Procedures: ROBOTIC THORACOSCOPY; LOBECTOMY, TOTAL OR SEGMENTAL (Left: Chest) - UPPER LOBE SEGMENTECTOMY, POSSIBLE LEFT UPPER LOBECTOMY, MEDIASTINAL LYMPH NODE DISSECTION THORACOTOMY ADULT (Left: Chest) - Atricure Cryoablation Location: [facility] OR10 / [facility] OR Surgeons: Mitzi Amaral MD Estimated body mass index is 30.9 kg/m? as calculated from the following: Height as of 06/01/22: 162.6 cm (5' 4 ). Weight as of 06/01/22: 81.6 kg (180 lb). Most recent hematocrit and potassium results: Hemoglobin (g/dL) Date Value 05/30/2022 12.7 08/10/2021 11.5 Hematocrit (%) Date Value 05/30/2022 39.4 08/10/2021 35.0 WBC (k/uL) Date Value 05/30/2022 6.51 08/10/2021 5.13 Platelet Count (k/uL) Date Value 05/30/2022 177 08/10/2021 133 CMP: Glucose 102 05/30/2022 BUN 21 05/30/2022 Creatinine 1.25 05/30/2022 Sodium 142 05/30/2022 Potassium 3.9 05/30/2022 Chloride 101 05/30/2022 CO2 30 05/30/2022 Protein, Total 7.6 05/30/2022 Albumin 4.7 05/30/2022 Calcium 9.9 05/30/2022 Alkaline Phosphatase 101 05/30/2022 Bilirubin, Total 0.6 05/30/2022 AST 26 05/30/2022 ALT 14 05/30/2022 Echo reviewed Relevant Problems ANESTHESIA (+) JENNIFER (obstructive sleep apnea) CARDIO (+) Atherosclerosis of elem coronary artery of elem heart without angina pectoris (+) Atrial fibrillation (HCC) (+) Chronic congestive heart failure (HCC) (+) Coronary artery disease involving elem coronary artery without angina pectoris -RENAL (+) Chronic kidney disease (+) Kidney stones NEURO-PSYCH (+) Cerebrovascular accident (CVA) (HCC) PULMONARY (+) Mild persistent asthma without complication (+) JENNIFER (obstructive sleep apnea) Cardiovascular (+) Hypercholesteremia (+) Mitral valve problem Other (+) Arthritis I - PHYSICAL EVALUATION AIRWAY Patient intubated: No. Tracheostomy tube not present Mallampati: II. TM distance: >3 FB. Neck ROM: limited extension. Mouth opening: adequate. Short neck: no. Thick neck: no Garcia present: no DENTAL Dental findings: poor dentition. II - ANESTHESIA PLAN ASA Score: 3 Anesthetic Plan: general Airway type: ETT The patient is not a current smoker. NPO Status: adequate Beta Choco Monitoring Plan Monitoring plan: standard ASA and invasive hemodynamic monitoring. Monitoring method: arterial Line Post Procedure Analgesic Plan Postoperative analgesic plan: parenteral or oral opioids, multimodal analgesia, per surgical service and peripheral nerve block. Informed Consent Anesthetic risks, benefits, alternatives, personnel and consent discussed: yes. Patient / Responsible Green Party agrees to proceed: yes Patient / Surrogate agrees to blood products: Yes DNR status not reviewed with patient and/or family prior to surgery. Significant changes in the patient condition since the History and Physical, not otherwise documented in primary service progress note: no. Potential Anesthesia issues that may suggest increased risk of complications or contraindication to planned procedure: none. Vitals Value Taken Time BP 93/62 06/13/22 0735 Pulse 56 06/13/22 0743 Resp 20 06/13/22 0743 Temp 36.7 ?C (98.1 ?F) 06/13/22 0702 SpO2 97 % 06/13/22 0743 Vitals shown include unvalidated device data. Facility-Administered Medications as of 06/13/2022 Medication Dose Route Frequency - [COMPLETED] midazolam (PF) 1-2 mg injection (VERSED) 1-2 mg INTRAVENOUS ONCE Outpatient Medications as of 06/13/2022 Medication Sig - anastrozole (ARIMIDEX) 1 mg tablet Take 1 tablet by mouth once daily. - levothyroxine (SYNTHROID) 50 mcg tablet levothyroxine 50 mcg tablet TAKE 1 TABLET BY MOUTH DAILY FOR HYPOTHYROIDISM - calcium carbonate (CALTRATE) 600 mg calcium (1,500 mg) tab 600 mg. - melatonin 10 mg tab 10 mg. - rosuvastatin (CRESTOR) 40 mg tablet Take 40 mg by mouth once daily. - furosemide (LASIX) 40 mg tablet Take 40 mg by mouth once daily. - spironolactone (ALDACTONE) 25 mg tablet Take 25 mg by mouth once daily. - metoprolol tartrate, short acting, (LOPRESSOR) 25 mg tablet Take 1 tablet by mouth twice daily. - COQ10, UBIQUINOL, ORAL Take 1 tablet by mouth once daily. - Chromium Picolinate 500 mcg cap Take 1 tablet by mouth once daily. - MAGNESIUM ORAL Take 1 tablet by mouth once daily. 600mg - ZAFIRLUKAST 20 mg tablet Take 20 mg by mouth once daily. - apixaban (ELIQUIS) 5 mg tab(s) Eliquis 5 mg tablet Take 1 tablet twice a day by oral route for 90 days. - aspirin, enteric coated (ASPIRIN, ENTERIC COATED) 81 mg EC tablet Take 81 mg by mouth once daily. - esomeprazole (NEXIUM) 20 mg capsule Take 20 mg by mouth as directed. (more content not included)... [facility] BRIEF OP NOTon 06-13-2022 BRIEF OP NOT HNO ID: [id number] Author: Mitzi Amaral MD Service: Thoracic Surgery Author Type: Physician Type: Brief Op Note Filed: 06/13/2022 1:11 PM Note Text: BRIEF OPERATIVE / PROCEDURE NOTE LOG ID: [id number] SURGERY/PROCEDURE DATE: 06/13/2022 INCISION/PROCEDURE START TIME: 9:00 AM INCISION CLOSE/PROCEDURE END TIME: SURGEON(S)/PROCEDURALIST( S) AND FLOCCULATOR OPERATOR(S): Surgeon(s) and Role: * Mitzi Amaral MD - Primary Physician Semiconductor Processing Technician: Lior Whitfield PA-C SURGERY/PROCEDURE(S): Left robotic-assisted pneumolysis. Left robotic-assisted anatomic lingular sparring upper lobectomy: S1, S2, S3. Mediastinal lymph node dissection, nodes: 5, 7, 9, 10, 11 and 12. Cryoanalgesia procedure, interspaces 5 - 7. (Total time 10 minutes) Left regional intercostal nerve block, interspaces 5 - 7. (Marcaine) Chest tube placement x 1 (#24-St Helenian chest tube). ANESTHESIA: General FINDINGS: Severe adhesions between the left upper lobe, mediastinum and chest wall. Emphysematous left lung parenchyma. Reactive and scarred left hilum. Tumor in the apical posterior portion of the left upper lobe. ESTIMATED BLOOD LOSS: < 5 mL. SPECIMENS: Anatomic lingular sparring left upper lobectomy, segments S1, S2, S3. Nodes: 5, 7, 9, 10, 11 and 12 COMPLICATIONS: None. 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 POST-OP/POST-PROCEDURE DIAGNOSIS: Severe adhesions between the left upper lobe, mediastinum and chest wall. Emphysematous left lung parenchyma. Reactive and scarred left hilum. Tumor in the apical posterior portion of the left upper lobe. SIGNATURE: Mitzi Amaral MD PATIENT NAME: Jemima Bradford DATE: June 13, 2022 TIME: 1:07 PM Normal [facility] Basic metabolic 2000 panelon 06-13-2022 Anion gap [Moles/Vol] 10 mmol/L Normal 9-18 [facility] Comment on above: Order Comment: Speci men Type: BLOOD SPECIMEN Ordering Facility: [facility] Address: [address] [place] [address] Performed By: #### 5 8410-2 #### [facility] CLIA [id number] [address] [place] [address] [place] Calcium [Mass/Vol] 9.1 mg/dL Normal 8.5-10.2 [facility] Comment on above: Order Comment: Speci men Type: BLOOD SPECIMEN Ordering Facility: [facility] Address: [address] [place] [address] Performed By: #### 5 8410-2 #### [facility] CLIA [id number] [address] [place] [address] [place] Chloride [Moles/Vol] 105 mmol/L Normal 97-105 [facility] Comment on above: Order Comment: Speci men Type: BLOOD SPECIMEN Ordering Facility: [facility] Address: [address] [place] [address] Performed By: #### 5 8410-2 #### [facility] CLIA [id number] [address] [place] [address] [place] CO2 [Moles/Vol] 24 mmol/L Normal 22-30 [facility] Comment on above: Order Comment: Speci men Type: BLOOD SPECIMEN Ordering Facility: [facility] Address: [address] [place] [address] Performed By: #### 5 8410-2 #### [facility] CLIA [id number] [address] [place] [address] [place] Creatinine [Mass/Vol] 1.10 mg/dL High 0.58-0.96 [facility] Comment on above: Order Comment: Speci men Type: BLOOD SPECIMEN Ordering Facility: [facility] Address: [address] [place] [address] Performed By: #### 5 8410-2 #### [facility] CLIA [id number] [address] [place] [address] [place] ESTIMATED GLOMERULAR FILTRATION RATE 51 mL/min/1.73m??? Low >=60 [facility] Comment on above: Order Comment: Speci men Type: BLOOD SPECIMEN Ordering Facility: [facility] Address: [address] [place] [address] Result Comment: Dee mated Glomerular Filtration Rate (eGFR) is calculated using the 2020 CKD-EPI creatinine equation. This equation utilizes serum creatinine, sex, and age as parameters. The creatinine assay has traceable calibration to isotope dilution-mass spectrometry. Refer to KDIGO guidelines for clinical interpretation. In patients with unstable renal function, e.g. those with acute kidney injury, the eGFR may not accurately reflect actual GFR. Performed By: #### 5 8410-2 #### [facility] CLIA [id number] [address] [place] [address] [place] Glucose [Mass/Vol] 150 mg/dL High 74-99 [facility] Comment on above: Order Comment: Mary Kay rausch Type: BLOOD SPECIMEN Ordering Facility: [facility] Address: [address] [place] [address] Result Comment: The [place] Diabetes Association (ADA) provides guidance for cutoff [...] Standards of Medical Care in Diabetes 2016, [place] [employer]. Diabetes Care. 2016.39(Suppl 1). Performed By: #### 5 8410-2 #### [facility] CLIA [id number] [address] [place] [address] [place] Potassium [Moles/Vol] 3.9 mmol/L Normal 3.7-5.1 [facility] Comment on above: Order Comment: Mary Kay rausch Type: BLOOD SPECIMEN Ordering Facility: [facility] Address: [address] [place] [address] Performed By: #### 5 8410-2 #### [facility] CLIA [id number] [address] [place] [address] [place] Sodium [Moles/Vol] 139 mmol/L Normal 136-144 [facility] Comment on above: Order Comment: Mary Kay rausch Type: BLOOD SPECIMEN Ordering Facility: [facility] Address: [address] [place] [address] Performed By: #### 5 8410-2 #### [facility] CLIA [id number] [address] [place] [address] [place] Urea nitrogen [Mass/Vol] 27 mg/dL High 7-21 [facility] Comment on above: Order Comment: Speci men Type: BLOOD SPECIMEN Ordering Facility: [facility] Address: [address] [place] [address] Performed By: #### 5 8410-2 #### [facility] CLIA [id number] [address] [place] [address] [place] CBC panel Auto (Bld)on 06-13 Erythrocyte distribution width (RBC) [Ratio] 14.7 % Normal 11.5-15.0 [facility] Comment on above: Order Comment: Speci men Type: BLOOD SPECIMEN Ordering Facility: [facility] Address: [address] [place] [address] Performed By: #### 5 8410-2 #### [facility] CLIA [id number] [address] [place] [address] OF [facility] Hematocrit (Bld) [Volume fraction] 34.1 % Low 36.0-46.0 [facility] Comment on above: Order Comment: Speci men Type: BLOOD SPECIMEN Ordering Facility: [facility] Address: [address] [address] Performed By: #### 5 8410-2 #### [facility] CLIA [id number] [address] [place] [address] [place] Hemoglobin (Bld) [Mass/Vol] 11.4 g/dL Low 11.5-15.5 [facility] Comment on above: Order Comment: Speci men Type: BLOOD SPECIMEN Ordering Facility: [facility] Address: [address] [address] Performed By: #### 5 8410-2 #### [facility] CLIA [id number] [address] [place] [address] [place] MCH (RBC) [Entitic mass] 29.2 pg Normal 26.0-34.0 [facility] Comment on above: Order Comment: Speci men Type: BLOOD SPECIMEN Ordering Facility: [facility] Address: [address] [place] [address] Performed By: #### 5 8410-2 #### [facility] CLIA [id number] [address] [place] [address] [place] MCHC (RBC) [Mass/Vol] 33.4 g/dL Normal 30.5-36.0 [facility] Comment on above: Order Comment: Speci men Type: BLOOD SPECIMEN Ordering Facility: [facility] Address: [address] [place] [address] Performed By: #### 5 8410-2 #### [facility] CLIA [id number] [address] [place] [address] [place] MCV (RBC) [Entitic vol] 87.2 fL Normal 80.0-100.0 [facility] Comment on above: Order Comment: Speci men Type: BLOOD SPECIMEN Ordering Facility: [facility] Address: [address] [place] [address] Performed By: #### 5 8410-2 #### [facility] CLIA [id number] [address] [place] [address] [place] Nucleated RBC (Bld) [#/Vol] 10*3/uL Normal <0.01 [facility] Comment on above: Order Comment: Speci men Type: BLOOD SPECIMEN Ordering Facility: [facility] Address: [address] [place] [address] Performed By: #### 5 8410-2 #### [facility] CLIA [id number] [address] [place] [address] [place] Platelet mean volume (Bld) [Entitic vol] 10.7 fL Normal 9.0-12.7 [facility] Comment on above: Order Comment: Speci men Type: BLOOD SPECIMEN Ordering Facility: [facility] Address: [address] [place] [address] Performed By: #### 5 8410-2 #### [facility] CLIA [id number] [address] [place] [address] [place] Platelets (Bld) [#/Vol] 131 10*3/uL Low 150-400 [facility] Comment on above: Order Comment: Speci men Type: BLOOD SPECIMEN Ordering Facility: [facility] Address: [address] [place] [address] Performed By: #### 5 8410-2 #### [facility] CLIA [id number] [address] [place] [address] [place] RBC (Bld) [#/Vol] 3.91 10*6/uL Normal 3.90-5.20 [facility] Comment on above: Order Comment: Speci men Type: BLOOD SPECIMEN Ordering Facility: [facility] Address: [address] [place] [address] Performed By: #### 5 8410-2 #### [facility] [place] [id number] [address] [id number] [place] WBC (Bld) [#/Vol] 10.53 10*3/uL Normal 3.70-11.00 [facility] Comment on above: Order Comment: Speci men Type: BLOOD SPECIMEN Ordering Facility: [facility] Address: [address] [place] [address] Performed By: #### 5 8410-2 #### [facility] IA [id number] [place] [address] [place] FISH FOR RET (10Q11)on 06-13 FISH FOR RET (10Q11) Normal [facility] Comment on above: Order Comment: Speci men Type: BLOOD SPECIMEN Ordering Facility: [facility] Address: [address] [place] [address] Result Comment: FISH for RET (10q11) Laboratory Accession Number: [id number] Case: [id number] Block: I7 Sample Type: FFPET Sample Description: LEFT LUNG LOBECTOMY, LEFT LINGULAR SPARING UPPER LOBE Received Date: 06/20/2022 Number of nuclei scored: 50 RESULT: Result Reference Range RET Rearrangement 0% (0-14%) INTERPRETATION: A rearrangement involving the RET gene at 10q11.21 was not detected. Clinical and pathological correlation is recommended. METHODOLOGY: A dual color, break apart probe specific to the RET gene at 10q11.21 ([employer], [place], [place]) was used in this interphase FISH assay to detect the presence of a RET rearrangement. The slides were scored manually. REFERENCES: Solomon Savaeg, Андрей Gomez, Juawn A, et al. Response to Cabozantinib in patients with RET fusion-positive lung adenocarcinomas. Cancer Discov 2013;3:630-5 2. Mery CASSIDY. RET revisited: expanding the oncogenic portfolio. Florencia Rev Cancer 2014;14:173-86 3. Patrick Ferrer, et al. Molecular methods for somatic mutation testing in lung adenocarcinoma: EGFR and beyond. Trans Lung Cancer Res 2015;4:126-41 4. National Comprehensive Cancer Network (NCCN) Clinical Practice Guidelines in Oncology, Non-Small Cell Lung Cancer, Available at NCCN.org LIMITATIONS: This test will not identify all rearrangements in RET. Rare, cryptic abnormalities may be below the resolution of the assay, or may otherwise be undetected. Specimen size, quality or representativeness can affect the quality of the results. This assay has been validated for tissues fixed with neutral buffered formalin. Decalcification agents and fixation agents containing heavy metals, e.g. B5, or harsh acid or base components (e.g. Bouin's solution) can adversely impact assay performance. DISCLAIMER: This test was developed and its performance characteristics determined by the [facility] [place] ([facility]). It has not been cleared or approved by the FDA. [facility] is regulated under CLIA as qualified to perform high- complexity testing. This test is used for clinical purposes. It should not be regarded as investigational or for research. Interpretation performed at [facility], [address] [place] [address]. CLIA Number: [id number] As reviewed by Roland Torre MD, PhD Performed By: #### 5 8410-2 #### [facility] IA [id number] [address] [place] [address] [place] HISTORY PHYSICALon HISTORY PHYSICAL HNO ID: [id number] Author: Lior Whitfield PA-C Service: Cardiac Surgery Author Type: Physician Semiconductor Processing Technician Type: HANDP Filed: 06/13/2022 7:35 AM Note Text: UPDATED HISTORY AND PHYSICAL EXAMINATION SERVICE DATE: 06/13/2022 SERVICE TIME: 7:35 AM PHYSICAL EXAM MUST BE COMPLETED ON ADMISSION The History and Physical (completed in the past 30 days) has been reviewed and the patient has been examined. The contents accurately reflect the patient's condition with the following additions or revisions since the HANDP was completed. Examination indicates no changes. Sitting up in bed. NAD. Afebrile, vital signs stable. Breathing comfortably on RA. Lungs CTAB Abd soft, NT, +BS Regular rate and rhythm, normal S1 and S2, no murmurs This HANDP can be found in the Electronic Medical Record dated 05/30/22. SIGNATURE: Lior Whitfield PA-C PATIENT NAME: Jemima Bradford DATE: June 13, 2022 TIME: 7:30 AM Normal [facility] LUNG CANCER HOTSPOT GENE PHILLIPS Diane 06-13-2022 LUNG CANCER HOTSPOT GENE PANEL Normal [facility] Comment on above: Order Comment: Speci men Type: BLOOD SPECIMEN Ordering Facility: [facility] Address: [address] [place] [id number] Result Comment: Lung Cancer Hotspot Gene Panel Laboratory Accession Number: [id number] Case #: [id number] Block #: I7 Sample Type: FFPET % Tumor: 80 Result: BRAF - No variant detected [Reference Sequence: (NM_004333.4)]. EGFR - No variant detected [Reference Sequence: (NM_005228.3)]. HER2 (ERBB2) - No variant detected [Reference Sequence: (NM_004448.2)]. KRAS - No variant detected [Reference Sequence: (NM_004985.3)]. MET - No variant detected [Reference Sequence: (NM_000254.2)]. Interpretation: No cancer-related sequence changes were identified in mutation hotspots within the BRAF, EGFR, KRAS, MET, and HER2 (ERBB2) genes. These include common therapy-related mutations in BRAF exon 15, including codon 600, EGFR exons 18-21, KRAS exons 2, 3, 4, including codons 12, 13, 61, and others (e.g. 117, 146), MET exon 14 splicing site mutations and HER2 (ERBB2) exons 18-21. BRAF (B-Mike kathryn-oncogene, serine/threonine kinase) encodes a serine threonine kinase that is part of the mitogen-activated protein kinase (MAPK) signaling pathway, which promotes cellular growth and survival. Mutations in BRAF codon V600 in exon 15 are present in 1-5% of lung adenocarcinomas, and result in constitutive activation of the enzyme. V600E, which describes the substitution of glutamic acid (E) for valine (V) at position 600, represents approximately 50% of V600 mutations in lung cancer, and is associated with light or never smoking women whose tumors have micropapillary histology. BRAF V600 mutations in lung adenocarcinomas may predict responsiveness to BRAF inhibitor therapies such as vemurafinib and debrafenib (Lucian Savage et al. J Clin Oncol 2011;29:3574:79; Renee Dejesus. et al. N Engl J Med 2015;373:726-36). EGFR (epidermal growth factor receptor) encodes a receptor tyrosine kinase that is a member of the ERBB family. Receptor dimerization activates the downstream DEVYN/MIKE/MEK and PI3K/AKT/mTOR pathways, which promote cellular growth and survival. EGFR mutations are identified in approximately 16% of lung adenocarcinomas, are most commonly found in Asians, women and non-smokers. In-frame deletions within exon 19 and the [id number] mutation in exon 21 account for 90% of EGFR mutations. Exon 19 deletions, and mutations in exons 18 and 21 typically predict responsiveness to reversible small molecule EGFR tyrosine kinase inhibitors such as gefitinib and erlotinib, as well as irreversible inhibitors such as neratinib, dacomitinib, and afatinib. Exon 20 insertions and the T790M mutation are associated with resistance to EGFR tyrosine kinase inhibitors. (NCCN Clinical Practice Guidelines in Oncology: Non-Small Cell Lung Cancer, available at NCCN.org; Austin ROBLES, Guru PT. Verde MB, et al. J Mol Diagn 2013;15:415-53; Lucindaa S, Segundo D, Everardo R. Lancet Oncol 2015;16:e342-51; Boolell V, Markr M, Davis DN, et al. Cancers 2015;7:1815-46; FEBS J 2010;277:301-8; Josi Price. Cancer. Clin Cancer Res 2015;21:2221-6; Patrick C, Anselmo BYRD, Justice A, et al. Transl Lung Cancer Res 2015;4:126-41; Eunice Amaro, Malatesta S, et al. J Clin Oncol 2011;29:3574-9; Paddy CISNEROS, Lupe Rios, Meka W. Proc Am Thorac Soc 2009;6:201-5.) HER2, now known as ERBB2 (erb-b2 receptor tyrosine kinase 2), encodes a receptor tyrosine kinase that lacks a known ligand. HER2 receptor dimerization activates downstream signaling through the PI3K/AKT/mTOR and MEK/ERK pathways, promoting cellular proliferation, differentiation, and migration, and mediating sensitivity of EGFR- mutant lung tumors to anti-EGFR therapy. Activating HER2 mutations are found in approximately 2 - 4% of NSCLC patients, occurring most commonly in non-smoking women with adenocarcinoma. HER2 gene mutations in NSCLC typically occur in exons 18 - 21, with an in-frame insertion in exon 20 most frequently identified, and result in constitutive activation of the enzyme. They are typically mutually exclusive with EGFR, KRAS, and ALK mutations, and may predict response to anti-HER2 inhibitor therapies such as traztuzumab or afatinib (Nohemy J, et al. J Clin Oncol 2013;31:5756-7408; Steffanie SDuc S. Malina Oncol 2012;23(March (Suppl. 10)):g951-0964. Meka W, Arian Aparicio. Lancet Oncol 2011;12:175-80) refs 16, 22.). KRAS (Kathia rat sarcoma viral oncogene homolog) encodes a small self-inactivating GTP-ase that is a member of the DEVYN family of oncogenes, and serves as a signal transducer in response to stimuli from upstream cell-surface receptors. Activating mutations in KRAS are identified in 20-25% of lung adenocarcinomas. The majority of KRAS mutations in lung cancer are found in codons 12 and 13 in exon 2, and less frequently in codon 61 in exon 3. KRAS mutations are more often found in smokers, and less commonly in Asians. Mutations in KRAS are rarely found in combination with other driver material handler mutations such as EGFR, BRAF, HER2, A (more content not included)... Performed By: #### 5 8410-2 #### [facility] IA [id number] [address] [place] [address] [place] Magnesium [facility] 06-13 Magnesium [Mass/Vol] 2.2 mg/dL Normal 1.7-2.3 [facility] Comment on above: Order Comment: Speci men Type: BLOOD SPECIMEN Ordering Facility: [facility] Address: [address] [place] [address] [place] [address] Performed By: #### 5 8410-2 #### [facility] CLIA [id number] [address] [place] [address] [place] NURSING PROGon 06-13-2022 NURSING PROG HNO ID: [id number] Author: Marysol Scott RN Service: Nursing Author Type: Registered Nurse Type: Nursing Progress Note Filed: 06/13/2022 6:09 PM Note Text: Other: 1745- pt arrived from PACU in stable condition. Pt a AND o x3. Complaining of 9/10 pain to her incision site. Tele placed. Pt SR. 2 l NC. Chest tube hooked to sxn. Pt resting in bed with belongings at side and call light within reach. Medication given for pain. Pt food tray ordered. Pt denies any further needs at this time. Will continue to monitor. [facility] NURSING PROG HNO ID: [id number] Author: Andie Nava RN Service: ? Author Type: Registered Nurse Type: Nursing Progress Note Filed: 06/13/2022 7:05 AM Note Text: PATIENT EDUCATION TOPIC: PROCEDURE / SURGERY: Pre-op Teaching: Logistics Protocols PATIENT NAME: Jemima Bradford PATIENT LOCATION: [facility] OR POOL/[facility] OR POOL READINESS TO LEARN COGNITIVE ABILITY: Alert and oriented MOTIVATION TO LEARN: Eager FAMILY SUPPORT: None - Unavailable/disinterested INSTRUCTION PROVIDED TO: Patient PATIENT LEARNS BEST BY: Individual Instruction FACTORS AFFECTING LEARNING: None PHYSICAL LIMITATIONS AFFECTING LEARNING: None LEARNING RESPONSE DIAGNOSIS: ADULT: Well Adult PATIENT/FAMILY RESPONSE: Verbalizes understanding of: PRE-OPERATIVE INSTRUCTIONS-Correct action to take to follow pre-operative instructions METHOD OF INSTRUCTION: Individual instruction FOLLOW-UP PLAN: Complete - No need for follow-up INSTRUCTIONAL AIDS USED: NA SUPPLEMENTAL MATERIAL PROVIDED TO PATIENT: None REFERRAL (RECOMMENDATION): None Electronically Signed By: Andie Nava [facility] OPERATIVE NOon 06-13-2022 OPERATIVE NO HNO ID: [id number] Author: Mitzi Amaral MD Service: Thoracic Surgery Author Type: Physician Type: Operative Report Filed: 06/13/2022 1:24 PM Note Text: DATE: June 13, 2022 NAME: JEMIMA BRADFORD MR# [id number] PREOPERATIVE DIAGNOSIS: Left upper lobe adenocarcinoma. POSTOPERATIVE DIAGNOSIS: Severe adhesions between the left upper lobe, mediastinum and chest wall. Emphysematous left lung parenchyma. Reactive and scarred left hilum. Tumor in the apical posterior portion of the left upper lobe. PROCEDURES PERFORMED: Left robotic-assisted pneumolysis. Left robotic-assisted anatomic lingular sparring upper lobectomy: S1, S2, S3. Mediastinal lymph node dissection, nodes: 5, 7, 9, 10, 11 and 12. Cryoanalgesia procedure, interspaces 5 - 7. (Total time 10 minutes) Left regional intercostal nerve block, interspaces 5 - 7. (Marcaine) Chest tube placement x 1 (#24-St Helenian chest tube). SURGEON: Mitzi Amaral Jr., M.D. FLOCCULATOR OPERATOR: Lior Whitfield PA-C. ANESTHESIA: General endotracheal anesthesia. FINDINGS: Severe adhesions between the left upper lobe, mediastinum and chest wall. Emphysematous left lung parenchyma. Reactive and scarred left hilum. Tumor in the apical posterior portion of the left upper lobe. I was present for and performed the chua and critical portions of the operation including: Left robotic-assisted pneumolysis. Left robotic-assisted anatomic lingular sparring upper lobectomy: S1, S2, S3. Mediastinal lymph node dissection, nodes: 5, 7, 9, 10, 11 and 12. Cryoanalgesia procedure, interspaces 5 - 7. (Total time 10 minutes) Left regional intercostal nerve block, interspaces 5 - 7. (Marcaine) Chest tube placement x 1 (#24-St Helenian chest tube). The physician assistants participated in transporting the patient to and from the operating room, positioning of the patient, creation of robotic port sites, port placement and docking the robotic patient cart, bedside urgent care physician assistant duties, changing instruments, passing materials into and out of the hemithorax, extraction of the specimen(s), chest tube placement, closure of incisions. INDICATIONS FOR OPERATION: Jemima Bradford is a very pleasant 82-year old female who is a former 3.5+ pack year smoker. She has a history of DCIS breast cancer. She also has a long history of intermittent shortness of breath. Recently, she noticed increasing shortness of breath/dyspnea on exertion. On 04/04/2022 she had a chest x-ray and VQ scan which were not revealing. She had a CT chest on 04/04/22 that showed a scarlike opacity in the left upper lobe measuring 1.5 x 1.3 cm. Comparison with a CT chest in December 2019 revealed a scarlike lesion in the area measuring 1.1 x 0.8 cm. PET scan on 04/16/22 showed that the left upper lobe nodule was hypermetabolic, SUV 3.7. There was no other uptake appreciated. 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 MRI brain on 05/02/22 shows no evidence for metastatic disease. The patient was referred to me to discuss potential surgical resection of her newly diagnosed clinical stage I adenocarcinoma in her left upper lobe. The patient was agreeable to surgical resection. 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 I personally reviewed all available diagnostic studies and documentation. 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 I am recommending surgical resection. Specifically, I discussed left robotic-assisted anatomic left upper lobe segmental resection, possible anatomic left upper lobectomy, mediastinal lymph node dissection, cryoanalgesia procedure possible conversion to left thoracotomy and possible blood transfusion. I did discuss the risks, options, benefits and alternatives in detail with the patient. The patient understands the risks and complications and would like to undergo surgical resection. All of her questions were answered today. The patient signed consent forms for operation. OPERATION AND FINDINGS: After informed consent, the patient was transported to the main operating room and placed supine on the operative table. A timeout was called verifying the correct patient, procedure, operative site, positioning, and the need for any special equipment. After the induction of satisfactory general endotracheal anesthesia, the patient was intubated with a dual lumen endotracheal tube. Flexible fiberoptic bronchoscopy was performed. What could be visualized of the trachea appeared normal. The tesha appeared sharp. Examination of the right side showed the right main stem bronchus, right upper lobe bronchus, bronchus intermedius, right middle lobe bronchus, right lower l (more content not included)... [facility] PD-L1 22C3on 06-13-2022 PD-L1 BY IMMUNOHISTOCHEMISTY [facility] Comment on above: Order Comment: Speci men Type: BLOOD SPECIMEN Ordering Facility: [facility] Address: [address] [place] [address] Result Comment: Immu nohistochemistry for PD-L1 expression Tumor Cells Positive: 70% Block Analyzed: I7 PD-L1 Clone: 22C3 Comment: N/A Immunohistochemistry was performed on formalin fixed paraffin-embedded tissue using the mouse monoclonal antibody 22C3 ([employer]; [place], [place]) followed by ultrasensitive bright field detection (Optiview with amplification [[employer], [place]]). Criteria for interpretation require that tumor cells show membrane staining of any intensity for PD-L1. Laboratory Developed Test (LDT) Disclaimer: Performance characteristics of immunohistochemical, immunofluorescent and chromogenic in-situ hybridization tests have been determined by the performing laboratory within [facility]???[facility] Pathology and Laboratory Medicine [place] ([facility], [facility], [facility] or [facility]) in a manner consistent with CLIA requirements. One or more of these tests have not been cleared or approved by the FDA. [facility] is regulated under CLIA as qualified to perform high-complexity testing. These tests are used for clinical purposes. They should not be regarded as investigational or for research. Positive and negative controls stain appropriately. Electronically signed out by: Jasper Lim MD Performed By: #### 2 4321-2, 21193-7 #### [facility] CLIA [id number] [address] [place] [address] [place] ROS1 GENE REARRANGEMENTon FISH FOR ROS1 (6Q22) Normal [facility] Comment on above: Order Comment: Speci men Type: BLOOD SPECIMEN Ordering Facility: [facility] Address: [address] [place] [phone] Result Comment: FISH for ROS1(6q22) Laboratory Accession Number: [id number] Case: Block: I7 Sample Type: FFPET Sample Description: LEFT LUNG LOBECTOMY, LEFT LINGULAR SPARING UPPER LOBE Received Date: 06/20/2022 Number of nuclei scored: 50 RESULT: Result Reference Range ROS1 Rearrangement 0% (0-14%) INTERPRETATION: A rearrangement involving the ROS1 gene at 6q22.1 was not detected. Clinical and pathological correlation is recommended. METHODOLOGY: A dual color, break apart probe specific to the ROS1 gene at 6q22.1 ([employer], [place], [place]) was used in this interphase FISH assay to detect the presence of a ROS1 rearrangement. The slides were scored manually. REFERENCES: 1) Tiffanie KONG, Gerson BERNSTEIN. Molecular Pathways: ROS1 Fusion Proteins in Cancer. Clin Cancer Res 2013;15:1-6. Bradley Cloud Tung-Jue B, et al. Crizotinib in Ros1-Rearranged Non-Small Cell Lung Cancer. New Encl J Med 2014;21:1963-71 2) Bradley Cloud Yung-Jue B, et al. Crizotinib in ROS1-Rearranged Non-Small Lung Cancer. New Engl J Med 2014;21:1963-71 3) Patrick Ferrer, et al. Molecular methods for somatic mutation testing in lung adenocarcinoma: EGFR and beyond. Transl Lung Cacer Res 2015;4:126-41 4) Caitlin M, Terri Savage, Nayeli Ferrer, et al. ROS1 rearrangements in lung adenocarcinoma: prognostic impact, therapeutic options and genetic variability. Oncotarget 2015; e-pub ahead of print, September 22, 2014. 5) National Comprehensive Cancer Network (NCCN) Clinical Practice Guidelines in Oncology, Non-Small Cell Lung Cancer. Available at NCCN.org LIMITATIONS: This test will not identify all rearrangements in ROS1. Rare, cryptic abnormalities may be below the resolution of the assay, or may otherwise be undetected. Specimen size, quality or representativeness can affect the quality of the results. This assay has been validated for tissues fixed with neutral buffered formalin. Decalcification agents and fixation agents containing heavy metals, e.g. B5, or harsh acid or base components (e.g. Bouin's solution) can adversely impact assay performance. DISCLAIMER: This test was developed and its performance characteristics determined by the [facility]'s [facility] Pathology and Laboratory Medicine [place] ([facility]). It has not been cleared or approved by the FDA. [facility] is regulated under CLIA as qualified to perform high- complexity testing. This test is used for clinical purposes. It should not be regarded as investigational or for research. Interpretation performed at [facility], [address] [place] [address] [place]ie, [place] [address]. CLIA Number: [id number] As reviewed by Roland Torre MD, PhD Performed By: #### 5 8410-2 #### [facility] CLIA [id number] OF [place] SARS-CoV-2 RNA Resp Ql YANELIS+p robeon 06-13-2022 SARS-CoV-2 (COVID-19) RNA YANELIS+probe Ql (Resp) COVID 19 RESULT: SARS-CoV-2 (Agent of COVID-19) Not Detected by RT-PCR or equivalent method. This test has been authorized by FDA under an Emergency Use Authorization (EUA). Normal [facility] Comment on above: Performed By: #### 9 4500-6 ####[facility] [id number] [address] SURGICAL PATHOLOGYon 022 CASE REPORT Normal [facility] Comment on above: Order Comment: Speci men Type: BLOOD SPECIMEN Ordering Facility: [facility] Address: [address] [place] [address] Result Comment: Surg ical Pathology Report Case: [id number] Authorizing Provider: Mitzi Amaral MD Collected: 06/13/2022 10:22 AM Ordering Location: [facility] Received: 06/13/2022 03:29 PM Operating Room Pathologist: Jasper Lim MD Specimens: A) - LYMPH NODE, Level 9 B) - LYMPH NODE, 12 central C) - LYMPH NODE, 11 anterior D) - LYMPH NODE, 11 posterior E) - LYMPH NODE, Another 11 posterior F) - LYMPH NODE, 10 G) - LYMPH NODE, 5 H) - LYMPH NODE, 7 I) - LUNG LOBECTOMY LEFT, left lingular sparing upper lobe+ Performed By: #### 2 4321-2, 77596-7 #### [facility] CLIA [id number] CLINICAL HISTORY Normal [facility] Comment on above: Order Comment: Speci men Type: BLOOD SPECIMEN Ordering Facility: [facility] Address: [address] [place] [address] Result Comment: UPPE R LOBE SEGMENTECTOMY, POSSIBLE LEFT UPPER LOBECTOMY, MEDIASTINAL LYMPH NODE DISSECTION; ATRICTURE CRYOABLATION Pre-op diagnosis: Malignant neoplasm of upper lobe of left lung (HCC) [C34.12] Performed By: #### 2 4321-2, 03541-8 #### [facility] CLIA [id number] [address] [place] [address] OF [facility] FINAL DIAGNOSIS Normal [facility] Comment on above: Order Comment: Speci men Type: BLOOD SPECIMEN Ordering Facility: [facility] Address: [address] [address] Result Comment: A. L ymph node, level 9, excision: - Negative for tumor (0/1). B. Lymph node, 12 central, excision: - Negative for tumor (0/1). C. Lymph node, 11 anterior, excision: - Negative for tumor (0/1). D. Lymph node, 11 posterior, excision: - Negative for tumor (0/1). E. Lymph node, another 11 posterior, excision: - Negative for tumor (0/1). F. Lymph node, 10, excision: - Negative for tumor (0/1). G. Lymph node, 5, excision: - Negative for tumor (0/1). H. Lymph node, 7, excision: - Negative for tumor (0/1). I. Lung, left upper lobe, lingula-sparing left upper lobectomy: - Adenocarcinoma (2 cm), micropapillary predominant (70%), with additional papillary (20%), and acinar (10%) patterns (See synoptic template). - Seven hilar/peribronchial lymph nodes, negative for tumor (0/7). - Margins negative. Performed By: #### 2 4321-2, 21485-9 #### [facility] CLIA [id number] [address] [place] [address] OF [facility] FINAL PERFORMING LAB Normal [facility] Comment on above: Order Comment: Speci men Type: BLOOD SPECIMEN Ordering Facility: [facility] Address: [address] [id number] Result Comment: Diag nostic interpretation performed at [facility], [address] [facility] [address] CLIA# [id number] Client Project Coordinator: Elroy Vuong M.D. Performed By: #### 2 4321-2, 48502-6 #### [facility] CLIA [id number] [address] [place] [address] [place] GROSS DESCRIPTION A. LYMPH NODE Normal [facility] Comment on above: Order Comment: Speci men Type: BLOOD SPECIMEN Ordering Facility: [facility] Address: [address] [phone] Result Comment: Rece ived in formalin designated level 9 is a davila-velasco lymph node that measures 0.3 x 0.2 x 0.1 cm. The lymph node is entirely submitted in 1 cassette. WE June 14, 2022 8:32 AM Gross examination performed at [facility], [address] [place] [address] B. LYMPH NODE Received in formalin designated 12 central is a davila-velasco lymph node that measures 0.6 x 0.4 x 0.2 cm. The lymph node is entirely submitted in 1 cassette. WE June 14, 2022 8:33 AM Gross examination performed at [facility], [address] [place] [address] C. LYMPH NODE Received in formalin designated 11 anterior are 2 davila-velasco fragments of a lymph node that aggregate to 1.2 x 1 x 0.4 cm. The lymph node is entirely submitted in 1 cassette. WE June 14, 2022 8:36 AM Gross examination performed at [facility], [address] [place] [address] D. LYMPH NODE Received in formalin designated 11 posterior is a davila-velasco lymph node measures 0.6 x 0.5 x 0.4 cm. The lymph node is entirely submitted in 1 cassette. WE June 14, 2022 8:37 AM Gross examination performed at [facility], [address] [place] [address] E. LYMPH NODE Received in formalin designated another 11 posterior are 3 davila-velasco fragments of a lymph node that aggregate to 0.9 x 0.9 x 0.3 cm. The lymph node is entirely submitted in 1 cassette. WE June 14, 2022 8:38 AM Gross examination performed at [facility], [address] [place] [address] F. LYMPH NODE Received in formalin designated 10 is a davila-velasco lymph node that measures 1.5 x 0.6 x 0.5 cm. The lymph node is entirely submitted in 1 cassette. WE June 14, 2022 8:43 AM Gross examination performed at [facility], [address] [place] [address] G. LYMPH NODE Received in formalin designated 5 is a davila-velasco lymph node that measures 1.5 x 1 x 0.6 cm. The lymph node is entirely submitted in 1 cassette. WE June 14, 2022 8:43 AM Gross examination performed at [facility], [address] [place] [address] H. LYMPH NODE Received in formalin designated 7 is a davila-velasco lymph node that measures 1 x 0.6 x 0.3 cm. The lymph node is entirely submitted in 1 cassette. WE June 14, 2022 8:43 AM Gross examination performed at [facility], [address] [place] [address] I. LUNG LOBECTOMY LEFT Received in formalin, labeled left lingular sparing upper lobe + is a lung segmentectomy specimen, weighing 109.6 g, and measuring 13.7 x 8.3 x 2.7 cm. The pleura is purple-davila with diffuse, marked adhesions. Sectioning reveals a rubbery, davila nodule-defined, lobulated mass measuring 2.0 x 1.7 x 1.4 cm, which extends to within 0.2 cm of the pleura, 1.3 cm of the bronchial margin, 1.4 cm of the parenchymal margin and 1.7 cm of the vascular margins. The remainder of the cut surfaces consist of spongy, davila-pink and brown parenchyma with mild emphysematous change, most prominent at the peripheral aspects of the specimen. Palpation and dissection reveals 9 possible lymph nodes, ranging from 0.2 cm to 0.6 cm in greatest dimension. Veterinary Anatomist sections are submitted, as follows: I1: Bronchial margin (en face), I2: Vascular margins (en face), I3: Mass to closest pleura, I4: Mass to closest parenchymal margin, I5: Mass to bronchus and vasculature, I6-I8: Remainder of mass, I9: Uninvolved parenchyma, I10: Pleural adhesions, I11: six intact possible lymph nodes, I12: three intact possible lymph nodes AKA June 14, 2022 12:51 PM Gross examination performed at [facility], [address] [place] [address] Performed By: #### 2 4321-2, 77042-5 #### [facility] CLIA [id number] [address] [place] SYNOPTIC REPORT LUNG Normal [facility] Comment on above: Order Comment: Speci men Type: BLOOD SPECIMEN Ordering Facility: [facility] Address: [address] [place] [address] Result Comment: LUNG , RESECTION - All Specimens 8th Edition - Protocol posted: 01/24/2021 SPECIMEN Procedure: lingula-sparing lobectomy Specimen Laterality: Left TUMOR Tumor Focality: Single focus Tumor Site: Upper lobe of lung Tumor Size: Total Tumor Size (size of entire tumor): Greatest Dimension (Centimeters): 2 cm Additional Dimension (Centimeters): 1.7 cm Additional Dimension (Centimeters): 1.4 cm Histologic Type: Invasive micropapillary adenocarcinoma Histologic Patterns Present: Acinar: 10 Histologic Patterns Present: Papillary: 20 Histologic Patterns Present: Micropapillary: 70 Histologic Grade: G3, poorly differentiated Spread Through Air Spaces (ANNEL): Present Visceral Pleura Invasion: Not identified Direct Invasion of Adjacent Structures: Not applicable (no adjacent structures present) Treatment Effect: No known presurgical therapy Lymphovascular Invasion: Present MARGINS Margin Status for Invasive Carcinoma: All margins negative for invasive carcinoma Closest Margin(s) to Invasive Carcinoma: Bronchial Distance from Invasive Carcinoma to Closest Margin: 1.3 cm Margin Status for Non-Invasive Tumor: Not applicable REGIONAL LYMPH NODES Lymph Node(s) from Prior Procedures: No known prior lymph node sampling performed Regional Lymph Node Status: : All regional lymph nodes negative for tumor Number of Lymph Nodes Examined: 15 Cari Site(s) Examined: 7: Subcarinal Cari Site(s) Examined: 5: Subaortic / aortopulmonary (AP) / AP window Cari Site(s) Examined: 9L: Pulmonary ligament Cari Site(s) Examined: 10L: Hilar Cari Site(s) Examined: 11L: Interlobar Cari Site(s) Examined: 12L: Lobar Cari Site(s) Examined: Left: hilar/peribronchial PATHOLOGIC STAGE CLASSIFICATION (pTNM, AJCC 8th Edition) The suffix m (or a specific number) should only be used in the setting of multifocal ground-glass / lepidic nodules that histologically present as adenocarcinomas with prominent lepidic component or multifocal tumors of same histologic type that are too numerous for individual separate synoptic report and that are not better classified as intrapulmonary metastases (e.g. numerous carcinoid tumors). Multiple primary lung cancers showing different histologic type or different morphology based on comprehensive histologic subtyping are better staged as independent tumors without m suffix. pT Category: pT1b pN Category: pN0 ADDITIONAL FINDINGS Additional Findings: None identified Performed By: #### 2 4321-2, 29194-0 #### [id number] [address] [place] [address] OF [facility] XR CHEST 1V FRONTALon 2021 XR CHEST 1V FRONTAL * * *Final Report* * * DATE OF EXAM: Jun 13 2022 2:03PM FVO 5290 - XR CHEST 1V FRONTAL / PROCEDURE REASON: Post-operative / post-procedure assessment, asymptomatic * * * * Physician Interpretation * * * * EXAMINATION: CHEST RADIOGRAPH (SINGLE VIEW AP OR PA) CLINICAL HISTORY: Post-operative / post-procedure assessment, asymptomatic MQ: XC1_5 Comparison: None RESULT: Lines, tubes, and devices: Left-sided chest tube overlying the apex. Postoperative changes in the sternum. Lungs and pleura: Moderate left-sided pneumothorax measuring 4.4 cm in thickness. No pleural effusions. Atelectasis in the lung bases. Possible vascular congestion. Cardiomediastinal silhouette: Cardiomegaly Other: Subcutaneous emphysema changes in the left. IMPRESSION: Moderate-sized left sided pneumothorax. Chest tube is present. Physical Chemistry Professor: PSCB Transcribe Date/Time: Jun 13 2022 4:08P Dictated by : MIRANDA LOCKE MD This examination was interpreted and the report reviewed and electronically signed by: MIRANDA LOCKE MD on Jun 13 2022 4:10PM EST [id number] [facility] ----- JEMIMA BRADFORD ([id number]) 1940 [address] [place] [employer]* Date Time Provider Department 06/11/22 DILEEP LUNA During your visit today, we recorded the following information about you: Deandra Melchor 06/11/2022 2:59 PM Signed IRB # [id number] Tight perioperative blood pressure management to reduce serious cardiovascular, renal, and cognitive complications: The GUARDIAN trial PI: Dileep Luna MD, ALF, FASA. Outcomes Research Department. Anesthesia [place]. [facility]. This is a research study note. Patient assessments recorded here should not guide either clinical care or clinical decision-making. I spoke with Jemima Bradford regarding eligibility for the Guardian study. The background, rationale, hypotheses, study related procedures, known risks, potential benefits, and alternatives to research participation were discussed at length per the study phone script. The patient will consider participating in the study and would like to read the study related materials to know more details about the study. I have confirmed that the e-mail address on file is the current one and is okay to receive study related materials there. We will send the informed consent today. Deandra Melchor Research Semiconductor Processing Technician Department of OUTCOMES RESEARCH Anesthesiology [place] Allergies As of Date: 06/11/2022 Noted Allergy Reaction BIAXIN (CLARITHROMYCIN) 06/16/2013 16 - Unknown CONTRAST DYE 06/16/2013 12 - Shortness of Breath NICKEL 07/05/2020 16 - Unknown NITROUS OXIDE 12/21/2014 11 - Vomiting SYNVISC (HYLAN G-F 20) 06/16/2013 7 - Swelling THORAZINE (CHLORPROMAZINE) 06/16/2013 2 - Rash Date Reviewed: 06/01/2022 Reviewed by: MANN Veronica - Fully Assessed Reason for Visit: Research Outreach [Other] Prescriptions as of 06/11/2022 - anastrozole (ARIMIDEX) 1 mg tablet Take 1 tablet by mouth once daily. - levothyroxine (SYNTHROID) 50 mcg tablet levothyroxine 50 mcg tablet TAKE 1 TABLET BY MOUTH DAILY FOR HYPOTHYROIDISM - apixaban (ELIQUIS) 5 mg tab(s) Eliquis 5 mg tablet Take 1 tablet twice a day by oral route for 90 days. - calcium carbonate (CALTRATE) 600 mg calcium (1,500 mg) tab 600 mg. - melatonin 10 mg tab 10 mg. - aspirin, enteric coated (ASPIRIN, ENTERIC COATED) 81 mg EC tablet Take 81 mg by mouth once daily. - rosuvastatin (CRESTOR) 40 mg tablet Take 40 mg by mouth once daily. - furosemide (LASIX) 40 mg tablet Take 40 mg by mouth once daily. - spironolactone (ALDACTONE) 25 mg tablet Take 25 mg by mouth once daily. - esomeprazole (NEXIUM) 20 mg capsule Take 20 mg by mouth as directed. Twice per week - metoprolol tartrate, short acting, (LOPRESSOR) 25 mg tablet Take 1 tablet by mouth twice daily. - nitroglycerin sublingual (NITROQUICK) 0.4 mg SL tablet Dissolve 1 tablet under the tongue every 5 minutes as needed. - COQ10, UBIQUINOL, ORAL Take 1 tablet by mouth once daily. - Chromium Picolinate 500 mcg cap Take 1 tablet by mouth once daily. - MAGNESIUM ORAL Take 1 tablet by mouth once daily. 600mg - ZAFIRLUKAST 20 mg tablet Take 20 mg by mouth once daily. 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,*07/27/2015 Coronary artery disease involving elem ferguson*07/28/2015 Ductal carcinoma in situ (DCIS) of right breast*04/07/2021 Malignant neoplasm of upper lobe of left lung (*05/16/2022 Cerebrovascular accident (CVA) (HCC) [I63.9] 05/30/2022 Former smoker [Z87.891] 05/30/2022 JENNIFER (obstructive sleep apnea) [G47.33] 05/30/2022 Chronic congestive heart failure (HCC) [I50.9] 05/30/2022 Chronic kidney disease [N18.9] 05/30/2022 Hx of aortic valve repair [Z98.890, Z86.79] 05/30/2022 Encounter Status:Closed by DEANDRA MELCHOR on 06/11/22 Normal [facility] Covid-19 PCR (CVDTBH)on 05-31 SARS-CoV-2 (COVID-19) RNA YANELIS+probe Ql (Unsp spec) Not detected Normal NOT DETECTED [facility] Comment on above: Result Comment: This test is not yet approved or cleared by the [place] FDA. When there are no FDA-approved or cleared tests available, and other criteria are met, FDA can make tests available under an emergency access mechanism called an Emergency Use Authorization (EUA). The EUA for this test is supported by the Clean Rice Grader [employer] Reel Tender of Health and Human Service's (HHS's) declaration that circumstances exist to justify the emergency use of in vitro diagnostics for the detection and/or diagnosis of the virus that causes COVID-19. This EUA will remain in effect (meaning this test can be used) for the duration of the COVID-19 declaration justifying emergency of IVDs, unless it is terminated or revoked by FDA (after which the test may no longer be used). When diagnostic testing is negative, the possibility of a false negative should be considered in the context of a patient's recent exposures and the presence of clinical signs and symptoms consistent with SARS-CoV-2. Performed By: #### [facility] #### [facility] [address] [place] [address] Dr. Mark Walsh NM LUNG QUANT PERFUSIONon NM LUNG QUANT PERFUSION * * *Final Report* * * DATE OF EXAM: Jun 01 2022 9:57AM FVN 0030 - NM LUNG QUANT PERFUSION / PROCEDURE REASON: multiple diagnoses * * * * Physician Interpretation * * * * QUANTITATIVE PERFUSION STUDY CLINICAL INFORMATION: Preoperative evaluation. TECHNIQUE: 6.0 mCi technetium 99 MAA IV. Imaging of lungs in anterior and posterior projections RESULT: There is heterogeneous tracer uptake throughout the lungs on perfusion scans. Quantitative values are as follows: Right upper lung mean: 34% Right lower lung mean: 23% Total pulmonary perfusion to the right lun%. Left upper lung mean: 23% Left lower lung mean: 16% Total pulmonary perfusion to the left lun%. IMPRESSION: QUANTITATIVE PERFUSION SCAN, DETAILED ABOVE. Physical Chemistry Professor: PSCTodd Transcribe Date/Time: Jun 01 2022 10:13A Dictated by : MIRIAN ABRAHAM MD This examination was interpreted and the report reviewed and electronically signed by: MIRIAN ABRAHAM MD on Jun 01 2022 10:13AM EST [id number] Normal [facility] US CAROTID ARTERIES JOVANA VAS LABon 06-01-2022 US CAROTID ARTERIES [facility]NA VAS LAB Non-Invasive Vascular Laboratory [facility] Carotid Duplex Bilateral/Complete Date of service/time: 06/01/2022 8:56:36 AM Name: JEMIMA BRADFORD Date of : 1940 Age: 82 years Gender: F Clinical Indication Cerebrovascular accident. TECHNIQUE -------- A carotid duplex ultrasound examination was performed, including grayscale imaging and color Doppler and spectral Doppler examination of the below mentioned arteries. FINDINGS -------- RIGHT SIDE Common carotid artery: Origin: PSV: 92 cm/s. EDV: 12 cm/s. Proximal: PSV: 89 cm/s. EDV: 24 cm/s. Mid: PSV: 90 cm/s. EDV: 26 cm/s. Distal: PSV: 81 cm/s. EDV: 22 cm/s. Mild heterogeneous plaque at distal. Internal carotid artery: Origin: PSV: 67 cm/s. EDV: 22 cm/s. Proximal: PSV: 78 cm/s. EDV: 24 cm/s. Mid: PSV: 73 cm/s. EDV: 20 cm/s. Distal: PSV: 80 cm/s. EDV: 22 cm/s. Mild heterogeneous plaque at origin. ICA/CCA Ratio: 1.0 External carotid artery: Proximal: PSV: 78 cm/s. EDV: 11 cm/s. Subclavian artery: Origin: PSV: 144 cm/s. EDV: 0 cm/s. Mild heterogeneous plaque at origin. Innominate artery: PSV: 226 cm/s. EDV: 0 cm/s. Mild heterogeneous plaque at distal. Vertebral artery: PSV: 32 cm/s. EDV: 6 cm/s. LEFT SIDE Common carotid artery: Proximal: PSV: 106 cm/s. EDV: 29 cm/s. Mid: PSV: 95 cm/s. EDV: 27 cm/s. Distal: PSV: 73 cm/s. EDV: 18 cm/s. Mild heterogeneous plaque at distal. Internal carotid artery: Origin: PSV: 64 cm/s. EDV: 13 cm/s. Proximal: PSV: 64 cm/s. EDV: 15 cm/s. Mid: PSV: 78 cm/s. EDV: 24 cm/s. Distal: PSV: 74 cm/s. EDV: 21 cm/s. Mild heterogeneous plaque at origin. ICA/CCA Ratio: 1.1 External carotid artery: Proximal: PSV: 82 cm/s. EDV: 10 cm/s. Mild heterogeneous plaque at origin. Subclavian artery: Proximal: PSV: 130 cm/s. EDV: 0 cm/s. Vertebral artery: PSV: 48 cm/s. EDV: 17 cm/s. IMPRESSION RIGHT SIDE Common carotid artery: Plaque visualized without evidence of hemodynamically significant stenosis. Internal carotid artery: 20-39% stenosis. Vertebral artery: Patent and antegrade flow noted. Innominate artery: Plaque visualized without evidence of hemodynamically significant stenosis. Subclavian artery: Plaque visualized without evidence of hemodynamically significant stenosis. LEFT SIDE Common carotid artery: Plaque visualized without evidence of hemodynamically significant stenosis. Internal carotid artery: 20-39% stenosis. Vertebral artery: Patent and antegrade flow noted. Subclavian artery: Patent. Technologist: Glenys Zhong [facility] Ordering physician: Mitzi Amaral MD Interpreting physician: Triston Jules MD Final CC [employer] : [id number] See Link below for Image Normal [facility] Trace 05-31-2022 CNPN Telephone (DANIELAFV) ----- JEMIMA BRADFORD ([id number]) 1940 F [place] [employer]* Date Time Provider Department 05/31/22 DAINA SOW SOBIA During your visit today, we recorded the following information about you: Allergies As of Date: 05/31/2022 Noted Allergy Reaction BIAXIN (CLARITHROMYCIN) 06/16/2013 16 - Unknown CONTRAST DYE 06/16/2013 12 - Shortness of Breath NICKEL 07/05/2020 16 - Unknown NITROUS OXIDE 12/21/2014 11 - Vomiting SYNVISC (HYLAN G-F 20) 06/16/2013 7 - Swelling THORAZINE (CHLORPROMAZINE) 06/16/2013 2 - Rash Date Reviewed: 05/30/2022 Reviewed by: Ambreen Still PA-C - Fully Assessed Reason for Visit: Appointment [186] Cmt: Confirmed appt with patient Prescriptions as of 05/31/2022 - anastrozole (ARIMIDEX) 1 mg tablet Take 1 tablet by mouth once daily. - levothyroxine (SYNTHROID) 50 mcg tablet levothyroxine 50 mcg tablet TAKE 1 TABLET BY MOUTH DAILY FOR HYPOTHYROIDISM - apixaban (ELIQUIS) 5 mg tab(s) Eliquis 5 mg tablet Take 1 tablet twice a day by oral route for 90 days. - calcium carbonate (CALTRATE) 600 mg calcium (1,500 mg) tab 600 mg. - melatonin 10 mg tab 10 mg. - aspirin, enteric coated (ASPIRIN, ENTERIC COATED) 81 mg EC tablet Take 81 mg by mouth once daily. - rosuvastatin (CRESTOR) 40 mg tablet Take 40 mg by mouth once daily. - furosemide (LASIX) 40 mg tablet Take 40 mg by mouth once daily. - spironolactone (ALDACTONE) 25 mg tablet Take 25 mg by mouth once daily. - esomeprazole (NEXIUM) 20 mg capsule Take 20 mg by mouth as directed. Twice per week - metoprolol tartrate, short acting, (LOPRESSOR) 25 mg tablet Take 1 tablet by mouth twice daily. - nitroglycerin sublingual (NITROQUICK) 0.4 mg SL tablet Dissolve 1 tablet under the tongue every 5 minutes as needed. - COQ10, UBIQUINOL, ORAL Take 1 tablet by mouth once daily. - Chromium Picolinate 500 mcg cap Take 1 tablet by mouth once daily. - MAGNESIUM ORAL Take 1 tablet by mouth once daily. 600mg - ZAFIRLUKAST 20 mg tablet Take 20 mg by mouth once daily. 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/2021 Malignant neoplasm of upper lobe of left lung (*05/16/2022 Cerebrovascular accident (CVA) (HCC) [I63.9] 05/30/2022 Former smoker [Z87.891] 05/30/2022 JENNIFER (obstructive sleep apnea) [G47.33] 05/30/2022 Chronic congestive heart failure (HCC) [I50.9] 05/30/2022 Chronic kidney disease [N18.9] 05/30/2022 Hx of aortic valve repair [Z98.890, Z86.79] 05/30/2022 Encounter Status:Closed by DAINA SOW on 05/31/22 [facility] Bacteria Ur Culton 2 Bacteria identified Cx Nom (U) ORGANISM ID: 1 <10,000 CFU/ml Normal urogenital amena Normal [facility] Comment on above: Performed By: #### 6 30-4 #### [facility] CLIA [id number] [facility] [id number] [place] CBC W Auto Differential pane l (Bld)on 05-30-2022 Basophils (Bld) [#/Vol] 0.07 10*3/uL Normal <0.11 [facility] Comment on above: Order Comment: Speci men Type: BLOOD SPECIMEN Ordering Facility: [facility] Address: [address] [address] Performed By: #### 5 7021-8 #### [facility] CLIA [id number] [place] [address] [place] Basophils/100 WBC (Bld) 1.1 % Normal [facility] Comment on above: Order Comment: Speci men Type: BLOOD SPECIMEN Ordering Facility: [facility] Address: [address] [address] Performed By: #### 5 7021-8 #### [facility] [place] [id number] [place] Differential cell count method Nom (Bld) Auto Normal [facility] Comment on above: Order Comment: Speci men Type: BLOOD SPECIMEN Ordering Facility: [facility] Address: [address] [address] Performed By: #### 5 7021-8 #### [facility] CLIA [id number] [address] [place] [address] [place] Eosinophils (Bld) [#/Vol] 0.30 10*3/uL Normal <0.46 [facility] Comment on above: Order Comment: Speci men Type: BLOOD SPECIMEN Ordering Facility: [facility] Address: [address] [address] Performed By: #### 5 7021-8 #### [facility] CLIA [id number] [place] [address] [place] Eosinophils/100 WBC (Bld) 4.6 % Normal [facility] Comment on above: Order Comment: Speci men Type: BLOOD SPECIMEN Ordering Facility: [facility] Address: [address] [address] Performed By: #### 5 7021-8 #### [facility] CLIA [id number] [place] Erythrocyte distribution width (RBC) [Ratio] 14.9 % Normal 11.5-15.0 [facility] Comment on above: Order Comment: Speci men Type: BLOOD SPECIMEN Ordering Facility: [facility] Address: [address] [address] Performed By: #### 5 7021-8 #### [facility] CLIA [id number] [address] [place] Hematocrit (Bld) [Volume fraction] 39.4 % Normal 36.0-46.0 [facility] Comment on above: Order Comment: Speci men Type: BLOOD SPECIMEN Ordering Facility: [facility] Address: [address] [address] Performed By: #### 5 7021-8 #### [facility] CLIA [id number] [place] Hemoglobin (Bld) [Mass/Vol] 12.7 g/dL Normal 11.5-15.5 [facility] Comment on above: Order Comment: Speci men Type: BLOOD SPECIMEN Ordering Facility: [facility] Address: [address] [address] Performed By: #### 5 7021-8 #### [facility] CLIA [id number] [address] [place] Immature granulocytes (Bld) [#/Vol] 10*3/uL Normal <0.10 [facility] Comment on above: Order Comment: Speci men Type: BLOOD SPECIMEN Ordering Facility: [facility] Address: [address] Performed By: #### 5 7021-8 #### [facility] IA [id number] [address] [place] Immature granulocytes/100 WBC (Bld) 0.3 % Normal [facility] Comment on above: Order Comment: Speci men Type: BLOOD SPECIMEN Ordering Facility: [facility] Address: [address] [address] Performed By: #### 5 7021-8 #### [facility] IA [id number] [address] [place] [address] [place] Lymphocytes (Bld) [#/Vol] 1.78 10*3/uL Normal 1.00-4.00 [facility] Comment on above: Order Comment: Speci men Type: BLOOD SPECIMEN Ordering Facility: [facility] Address: [address] [address] Performed By: #### 5 7021-8 #### [facility] IA [id number] [place] [address] [place] Lymphocytes/100 WBC (Bld) 27.3 % Normal [facility] Comment on above: Order Comment: Speci men Type: BLOOD SPECIMEN Ordering Facility: [facility] Address: [address] [address] Performed By: #### 5 7021-8 #### [facility] IA [id number] [address] [place] [address] [place] MCH (RBC) [Entitic mass] 28.5 pg Normal 26.0-34.0 [facility] Comment on above: Order Comment: Speci men Type: BLOOD SPECIMEN Ordering Facility: [facility] Address: [address] [address] Performed By: #### 5 7021-8 #### [facility] IA [id number] [place] MCHC (RBC) [Mass/Vol] 32.2 g/dL Normal 30.5-36.0 [facility] Comment on above: Order Comment: Speci men Type: BLOOD SPECIMEN Ordering Facility: [facility] Address: [address] [address] Performed By: #### 5 7021-8 #### [facility] IA [id number] [address] [place] [address] [place] MCV (RBC) [Entitic vol] 88.3 fL Normal 80.0-100.0 [facility] Comment on above: Order Comment: Speci men Type: BLOOD SPECIMEN Ordering Facility: [facility] Address: [address] [address] Performed By: #### 5 7021-8 #### [facility] IA [id number] [address] [place] [address] [place] Monocytes (Bld) [#/Vol] 0.68 10*3/uL Normal <0.87 [facility] Comment on above: Order Comment: Speci men Type: BLOOD SPECIMEN Ordering Facility: [facility] Address: [address] [address] Performed By: #### 5 7021-8 #### [facility] IA [id number] [address] [place] [address] [place] Monocytes/100 WBC (Bld) 10.4 % Normal [facility] Comment on above: Order Comment: Speci men Type: BLOOD SPECIMEN Ordering Facility: [facility] Address: [address] [address] Performed By: #### 5 7021-8 #### [facility] IA [id number] [address] [place] [address] [place] Neutrophils (Bld) [#/Vol] 3.66 10*3/uL Normal 1.45-7.50 [facility] Comment on above: Order Comment: Speci men Type: BLOOD SPECIMEN Ordering Facility: [facility] Address: [address] [address] Performed By: #### 5 7021-8 #### [facility] IA [id number] [address] [place] [address] [place] Neutrophils/100 WBC (Bld) 56.3 % Normal [facility] Comment on above: Order Comment: Speci men Type: BLOOD SPECIMEN Ordering Facility: [facility] Address: [address] Performed By: #### 5 7021-8 #### [facility] CLIA [id number] [address] [place] [address] [place] Nucleated RBC (Bld) [#/Vol] 10*3/uL Normal <0.01 [facility] Comment on above: Order Comment: Speci men Type: BLOOD SPECIMEN Ordering Facility: [facility] Address: [address] Performed By: #### 5 7021-8 #### [facility] IA [id number] [place] [address] [place] Nucleated RBC/100 WBC (Bld) [Ratio] 0.0 /100 WBC Normal [facility] Comment on above: Order Comment: Speci men Type: BLOOD SPECIMEN Ordering Facility: [facility] Address: [address] Performed By: #### 5 7021-8 #### [facility] IA [id number] [place] [address] [place] Platelet mean volume (Bld) [Entitic vol] 10.4 fL Normal 9.0-12.7 [facility] Comment on above: Order Comment: Speci men Type: BLOOD SPECIMEN Ordering Facility: [facility] Address: [address] Performed By: #### 5 7021-8 #### [facility] CLIA [id number] [address] [place] [address] [place] Platelets (Bld) [#/Vol] 177 10*3/uL Normal 150-400 [facility] Comment on above: Order Comment: Speci men Type: BLOOD SPECIMEN Ordering Facility: [facility] Address: [address] Performed By: #### 5 7021-8 #### [facility] CLIA [id number] [address] [place], [place] [address] [place] [address] OF [facility] RBC (Bld) [#/Vol] 4.46 10*6/uL Normal 3.90-5.20 [facility] Comment on above: Order Comment: Speci men Type: BLOOD SPECIMEN Ordering Facility: [facility] Address: [address] [address] Performed By: #### 5 7021-8 #### [facility] CLIA [id number] [address] WBC (Bld) [#/Vol] 6.51 10*3/uL Normal 3.70-11.00 [facility] Comment on above: Order Comment: Speci men Type: BLOOD SPECIMEN Ordering Facility: [facility] Address: [address] [address] Performed By: #### 5 7021-8 #### [facility] IA [id number] [address] OF [facility] Comprehensive metabolic 2000 panelon 05-30-2022 Albumin [Mass/Vol] 4.7 g/dL Normal 3.9-4.9 [facility] Comment on above: Order Comment: Speci men Type: BLOOD SPECIMEN Ordering Facility: [facility] Address: [address] [address] Performed By: #### 2 4323-8 #### [facility] IA [id number] [place] ALP [Catalytic activity/Vol] 101 U/L Normal 34-123 [facility] Comment on above: Order Comment: Speci men Type: BLOOD SPECIMEN Ordering Facility: [facility] Address: [address] [address] Performed By: #### 2 4323-8 #### [facility] IA [id number] [address] OF [facility] ALT [Catalytic activity/Vol] 14 U/L Normal 7-38 [facility] Comment on above: Order Comment: Speci men Type: BLOOD SPECIMEN Ordering Facility: [facility] Address: [address] [address] Performed By: #### 2 4323-8 #### [facility] CLIA [id number] [address] [place] [address] [place] Anion gap [Moles/Vol] 11 mmol/L Normal 9-18 [facility] Comment on above: Order Comment: Speci men Type: BLOOD SPECIMEN Ordering Facility: [facility] Address: [address] [address] Performed By: #### 2 4323-8 #### [facility] CLIA [id number] [address] [place] [address] [place] AST [Catalytic activity/Vol] 26 U/L Normal 13-35 [facility] Comment on above: Order Comment: Speci men Type: BLOOD SPECIMEN Ordering Facility: [facility] Address: [address] [address] Performed By: #### 2 4323-8 #### [facility] IA [id number] [address] [place] [address] [place] Bilirubin [Mass/Vol] 0.6 mg/dL Normal 0.2-1.3 [facility] Comment on above: Order Comment: Speci men Type: BLOOD SPECIMEN Ordering Facility: [facility] Address: [address] [address] Performed By: #### 2 4323-8 #### [facility] CLIA [id number] [address] [place] [address] [place] Calcium [Mass/Vol] 9.9 mg/dL Normal 8.5-10.2 [facility] Comment on above: Order Comment: Speci men Type: BLOOD SPECIMEN Ordering Facility: [facility] Address: [address] [address] Performed By: #### 2 4323-8 #### [facility] CLIA [id number] [address] [place] [address] [place] Chloride [Moles/Vol] 101 mmol/L Normal 97-105 [facility] Comment on above: Order Comment: Speci men Type: BLOOD SPECIMEN Ordering Facility: [facility] Address: [address] [address] Performed By: #### 2 4323-8 #### [facility] CLIA [id number] [address] [place] [address] [place] CO2 [Moles/Vol] 30 mmol/L Normal 22-30 [facility] Comment on above: Order Comment: Speci men Type: BLOOD SPECIMEN Ordering Facility: [facility] Address: [address] [address] Performed By: #### 2 4323-8 #### [facility] CLIA [id number] [address] [place] [address] [place] Creatinine [Mass/Vol] 1.25 mg/dL High 0.58-0.96 [facility] Comment on above: Order Comment: Speci men Type: BLOOD SPECIMEN Ordering Facility: [facility] Address: [address] [address] Performed By: #### 2 4323-8 #### [facility] CLIA [id number] [address] [place] ESTIMATED GLOMERULAR FILTRATION RATE 43 mL/min/1.73m??? Low >=60 [facility] Comment on above: Order Comment: Speci men Type: BLOOD SPECIMEN Ordering Facility: [facility] Address: [address] [place] [address] Result Comment: Dee mated Glomerular Filtration Rate (eGFR) is calculated using the 2020 CKD-EPI creatinine equation. This equation utilizes serum creatinine, sex, and age as parameters. The creatinine assay has traceable calibration to isotope dilution-mass spectrometry. Refer to KDIGO guidelines for clinical interpretation. In patients with unstable renal function, e.g. those with acute kidney injury, the eGFR may not accurately reflect actual GFR. Performed By: #### 2 4323-8 #### [facility] CLIA [id number] [address] [place] [address] [place] Glucose [Mass/Vol] 102 mg/dL High 74-99 [facility] Comment on above: Order Comment: Speci men Type: BLOOD SPECIMEN Ordering Facility: [facility] Address: [address] [place] [address] Result Comment: The [place] Diabetes Association (ADA) provides guidance for cutoff [...] Standards of Medical Care in Diabetes 2016, [place] [employer]. Diabetes Care. 2016.39(Suppl 1). Performed By: #### 2 4323-8 #### [facility] CLIA [id number] [address] [place] [address] [place] Potassium [Moles/Vol] 3.9 mmol/L Normal 3.7-5.1 [facility] Comment on above: Order Comment: Shadii men Type: BLOOD SPECIMEN Ordering Facility: [facility] Address: [address] [place] [address] Performed By: #### 2 4323-8 #### [facility] CLIA [id number] [address] [place] [address] [place] Protein [Mass/Vol] 7.6 g/dL Normal 6.3-8.0 [facility] Comment on above: Order Comment: Speci men Type: BLOOD SPECIMEN Ordering Facility: [facility] Address: [address] [address] Performed By: #### 2 4323-8 #### [facility] CLIA [id number] [address] [place] [address] [place] Sodium [Moles/Vol] 142 mmol/L Normal 136-144 [facility] Comment on above: Order Comment: Speci men Type: BLOOD SPECIMEN Ordering Facility: [facility] Address: [address] [place] [address] Performed By: #### 2 4323-8 #### [facility] CLIA [id number] [address] [place] [address] [facility] Urea nitrogen [Mass/Vol] 21 mg/dL Normal 7-21 [facility] Comment on above: Order Comment: Speci men Type: BLOOD SPECIMEN Ordering Facility: [facility] Address: [address] [facility] [place] [address] Performed By: #### 2 4323-8 #### [facility] CLIA [id number] [address] [place] [address] [place] HISTORY PHYSICALon HISTORY PHYSICAL HNO ID: [id number] Author: Ambreen Still PA-C Service: ? Author Type: Physician Semiconductor Processing Technician Type: HANDP Filed: 06/01/2022 11:13 AM Note Text: HISTORY AND PHYSICAL EXAMINATION SERVICE DATE: 05/30/2022 SERVICE TIME: 1:42 PM PRIMARY CARE PHYSICIAN: Jasmyne Casillas, JADON, LAMBSKIN TRIMMER REASON FOR VISIT: Jemima Bradford is a 82 year old female who is scheduled for LEFT ROBOTIC ASSISTED UPPER LOBE SEGMENTECTOMY, POSSIBLE LEFT UPPER LOBECTOMY, MEDIASTINAL LYMPH NODE DISSECTION at the request of Dr. Amaral for consultation. My final recommendation will be communicated back to the requesting physician by way of shared medical record or letter. 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 Patient has lung CA with c/o of SOB since 03/2022. Hx BrCA 05/2020 s/p lumpectomy, radiation and currently taking Anastrozole (Arimidex) . denies other CA. positive hx asthma, JENNIFER compliant with CPAP and former cig smoker quit 1970 with 35 pk/years. Recommended for above surgery. PAST MEDICAL HISTORY Diagnosis Date Aortic valve stenosis mild Arthritis Asthma controlled no inhalers Coronary artery disease Hypercholesteremia Hypertension Polymyalgia rheumatica (HCC) PAST SURGICAL HISTORY Procedure Laterality Date APPENDECTOMY 07/01/1978 ARTHROSCOPY KNEE MEDIAL RELEASE 2002,2010 rt AND Lt knee ARTHRP KNE CONDYLEANDPLATU MEDIALANDLAT COMPARTMENTS Right 07/01/2013 right x2 BREAST LUMPECTOMY HX BUNIONECTOMY, LAPIDUS-TYPE 07/01/2010 rt toe CHOLECYSTECTOMY 07/01/2005 COLONOSCOPY AND POLYPECTOMY 2004, 2005, 2009 x 3 CYSTO LASER TX URETERAL CALC 07/01/2009 stent placement CYSTO W/RETROGRADE x 6 DANDC (INCOMPLETE AB), ANY TRIMESTER 07/01/1974 EXCISE EXCESS SKIN TISSUE,ABDOMEN 07/01/1994 Abdominalplasty LITHOTRIPSY PROC UNILATERAL 07/01/1985 rt kidney PAST SURGICAL HISTORY OF 12/03/2019 CABG 1v, cryomaze and AVr REMV CATARACT EXTRACAP,INSERT LENS STENT PLACEMENT 07/01/2003 LAD TONSILLECTOMY HX as child FAMILY HISTORY Problem Relation Age of Onset Heart Mother age 89 Diabetes Mother Coronary Artery Disease Mother Pancreatic Cancer Mother Heart Father age 75 Diabetes Father Stroke Father Breast Cancer Sister Breast Cancer Sister Arthritis Brother Diabetes Brother Heart disease Brother other (Bladder cancer) Brother Pancreatic Cancer Maternal Aunt SOCIAL HISTORY: Social History Tobacco Use Smoking status: Former Packs/day: 0.50 Years: 7.00 Pack years: 3.50 Types: Cigarettes Start date: 06/16/1963 Quit date: 06/16/1971 Years since quittin.9 Passive exposure: Past Smokeless tobacco: Never Vaping Use Vaping Use: Never used Substance Use Topics Alcohol use: No Drug use: No MEDICATIONS: Prior to Admission medications as of 05/30/22 1349 Medication Sig Last Dose Taking anastrozole (ARIMIDEX) 1 mg tablet Take 1 tablet by mouth once daily. Taking Yes levothyroxine (SYNTHROID) 50 mcg tablet levothyroxine 50 mcg tablet TAKE 1 TABLET BY MOUTH DAILY FOR HYPOTHYROIDISM Taking Yes apixaban (ELIQUIS) 5 mg tab(s) Eliquis 5 mg tablet Take 1 tablet twice a day by oral route for 90 days. Taking Yes calcium carbonate (CALTRATE) 600 mg calcium (1,500 mg) tab 600 mg. Taking Yes melatonin 10 mg tab 10 mg. Taking Yes aspirin, enteric coated (ASPIRIN, ENTERIC COATED) 81 mg EC tablet Take 81 mg by mouth once daily. Taking Yes rosuvastatin (CRESTOR) 40 mg tablet Take 40 mg by mouth once daily. Taking Yes furosemide (LASIX) 40 mg tablet Take 40 mg by mouth once daily. Taking Yes spironolactone (ALDACTONE) 25 mg tablet Take 25 mg by mouth once daily. Taking Yes esomeprazole (NEXIUM) 20 mg capsule Take 20 mg by mouth as directed. Twice per week Taking Yes metoprolol tartrate, short acting, (LOPRESSOR) 25 mg tablet Take 1 tablet by mouth twice daily. Taking Yes nitroglycerin sublingual (NITROQUICK) 0.4 mg SL tablet Dissolve 1 tablet under the tongue every 5 minutes as needed. Taking Yes COQ10, UBIQUINOL, ORAL Take 1 tablet by mouth once daily. Taking Yes Chromium Picolinate 500 mcg cap Take 1 tablet by m (more content not included)... Normal [facility] PT panel Coag (PPP)on 2021 INR Coag (PPP) [Relative time] 1.1 {INR} Normal 0.9-1.3 [facility] Comment on above: Order Comment: Speci men Type: BLOOD SPECIMEN Ordering Facility: [facility] Address: [address] [place] [address] Result Comment: Sana min K Antagonist (VKA) Therapeutic Range: INR 2 to 3 (Target INR of 2.5) Note: For patients treated with VKA drugs, such as warfarin, the [place] [employer] 2012 Guideline recommends a therapeutic INR range of 2 to 3 (target INR of 2.5). This recommendation includes high-risk patients with antiphospholipid syndrome with previous arterial or venous thromboembolism, current-generation mechanical or bioprosthetic aortic heart valve replacement. Note: Patients with mechanical aortic valve replacement and additional risk factors for thromboembolic events (atrial fibrillation, previous thromboembolism, LV dysfunction, hypercoagulable conditions) or an older generation mechanical AVR (i.e., ball in-Cage) or any mechanical MVR should have a INR therapeutic range of 2.5 to 3.5 (target INR of 3). Guyatt GH, et al. Chest 2012, 141:7S-47S Lisa RA, et al. [facility] 2017, 70: 252-289 Performed By: #### 3 4528-0, 49884-4 #### [facility] CLIA [id number] [place] PT Coag (PPP) [Time] 11.3 s Normal 9.7-13.0 [facility] Comment on above: Order Comment: Speci men Type: BLOOD SPECIMEN Ordering Facility: [facility] Address: [address] [address] Performed By: #### 3 4528-0, 48052-5 #### [facility] CLIA [id number] TYPE AND SCREEN,30 DAYon ABO A Normal [facility] Comment on above: Order Comment: Speci men Type: BLOOD SPECIMEN Ordering Facility: [facility] Address: [address] [address] Performed By: #### T SCR30 #### [facility] CLIA [id number] HISTORICAL AB SCR STATUS Negative [facility] Comment on above: Order Comment: Speci men Type: BLOOD SPECIMEN Ordering Facility: [facility] Address: [address] [address] Performed By: #### T SCR30 #### [facility] CLIA [id number] [place] Rh Nom (Bld) Negative Normal [facility] l Comment on above: Order Comment: Speci men Type: BLOOD SPECIMEN Ordering Facility: [facility] Address: [address] [address] Performed By: #### T SCR30 #### [facility] CLIA [id number] OF [place] URINALYSIS, DIPSTICK ONLYon 05-30-2022 Bilirubin Ql (U) Negative Normal Negative [facility] Comment on above: Order Comment: Speci men Type: URINE SPECIMEN Ordering Facility: [facility] Address: [address] [address] Performed By: #### U A #### [facility] [id number] [address] [place] [id number] [place] Clarity (Unsp spec) Clear Normal Clear [facility] Comment on above: Order Comment: Speci men Type: URINE SPECIMEN Ordering Facility: [facility] Address: [address] [address] Performed By: #### U A #### [facility] [id number] [address] [place] [id number] [place] Color (U) Yellow Normal Yellow [facility] Comment on above: Order Comment: Speci men Type: URINE SPECIMEN Ordering Facility: [facility] Address: [address] [place] [address] Performed By: #### U A #### [facility] [id number] [address] [place] [address] [place] Glucose Test strip (U) [Mass/Vol] Negative Normal Negative [facility] Comment on above: Order Comment: Speci men Type: URINE SPECIMEN Ordering Facility: [facility] Address: [address] [place] [address] Performed By: #### U A #### [facility] [id number] [address] [place] [address] [place] Hemoglobin Ql (U) Negative Normal Negative [facility] Comment on above: Order Comment: Speci men Type: URINE SPECIMEN Ordering Facility: [facility] Address: [address] [address] Performed By: #### U A #### [facility] [id number] [address] [place] [address] [place] Ketones Ql (U) Negative Normal Negative [facility] Comment on above: Order Comment: Speci men Type: URINE SPECIMEN Ordering Facility: [facility] Address: [address] [place] [address] Performed By: #### U A #### [facility] [id number] [address] [place] [address] Leukocyte esterase Test strip Ql (U) Negative Normal Negative [facility] Comment on above: Order Comment: Speci men Type: URINE SPECIMEN Ordering Facility: [facility] Address: [address] [address] Performed By: #### U A #### [facility] [id number] [address] [place] [address] [place] Nitrite Ql (U) Negative Normal Negative [facility] Comment on above: Order Comment: Speci men Type: URINE SPECIMEN Ordering Facility: [facility] Address: [address] [place] [address] Performed By: #### U A #### [facility] [id number] [address] [place] [address] [place] pH (U) 7.5 [pH] Normal 5.0-8.0 [facility] Comment on above: Order Comment: Speci men Type: URINE SPECIMEN Ordering Facility: [facility] Address: [address] [address] Performed By: #### U A #### [facility] [id number] [address] [place] [address] [place] Protein (U) [Mass/Vol] Negative Normal Negative [facility] Comment on above: Order Comment: Speci men Type: URINE SPECIMEN Ordering Facility: [facility] Address: [address] [address] Performed By: #### U A #### [facility] [id number] [address] [place] [address] [place] Specific gravity (U) [Rel density] 1.009 Normal 1.005-1.030 [facility] Comment on above: Order Comment: Speci men Type: URINE SPECIMEN Ordering Facility: [facility] Address: [address] [place] [address] Performed By: #### U A #### [facility] CLIA [id number] Urobilinogen Ql (U) 0.2 EU/dL Normal 0.2-1.0 EU/dL [facility] Comment on above: Order Comment: Speci men Type: URINE SPECIMEN Ordering Facility: [facility] Address: [address] [place] [address] Performed By: #### U A #### [facility] CLIA [id number] aPTT PPPon 05-30-2022 aPTT Coag (PPP) [Time] 25.6 s Normal 23.0-32.4 [facility] Comment on above: Order Comment: Speci men Type: BLOOD SPECIMEN Ordering Facility: [facility] Address: [address] [place] [address] Performed By: #### 3 4528-0, 61084-8 #### [facility] [place] [id number] OF [facility] CNPNon 05-23-2022 CNPN Telephone ([place]) ----- JEMIMA BRADFORD ([id number]) 1940 [address] Date Time Provider Department 05/23/22 MITZI AMARAL [place] During your visit today, we recorded the following information about you: Lauren Velasco 05/23/2022 4:29 PM Signed Pt called and wanted her covid test moved to [facility] since it is closer for her. Sent order for pre-procedural covid test via fax 05/23/2022 (scanned in chart). Lauren Velasco Allergies As of Date: 05/23/2022 Noted Allergy Reaction BIAXIN (CLARITHROMYCIN) 06/16/2013 16 - Unknown CONTRAST DYE 06/16/2013 12 - Shortness of Breath NICKEL 07/05/2020 16 - Unknown NITROUS OXIDE 12/21/2014 11 - Vomiting SYNVISC (HYLAN G-F 20) 06/16/2013 7 - Swelling THORAZINE (CHLORPROMAZINE) 06/16/2013 2 - Rash Date Reviewed: 05/16/2022 Reviewed by: Jazmine Bills - Fully Assessed Reason for Visit: Orders [681] Prescriptions as of 05/23/2022 - hydrOXYchloroQUINE (PLAQUENIL) 200 mg tablet ALTERNATE BETWEEN 1 TABLET BY MOUTH TWICE DAILY AND 1 TABLET ONCE DAILY WITH FOOD. GET YEARLY EYE EXAM. - cetirizine (ZYRTEC) 10 mg tablet Cetirizine (Zyrtec) 10 mg Tablet Active 10 MG PO Daily February 06, 2018 5:01pm - anastrozole (ARIMIDEX) 1 mg tablet Take 1 tablet by mouth once daily. - levothyroxine (SYNTHROID) 50 mcg tablet levothyroxine 50 mcg tablet TAKE 1 TABLET BY MOUTH DAILY FOR HYPOTHYROIDISM - apixaban (ELIQUIS) 5 mg tab(s) Eliquis 5 mg tablet Take 1 tablet twice a day by oral route for 90 days. - calcium carbonate (CALTRATE) 600 mg calcium (1,500 mg) tab 600 mg. - melatonin 10 mg tab 10 mg. - predniSONE (DELTASONE) 5 mg tablet Take 1 mg by mouth once daily. 1 every other day - aspirin, enteric coated (ASPIRIN, ENTERIC COATED) 81 mg EC tablet Take 81 mg by mouth once daily. - rosuvastatin (CRESTOR) 40 mg tablet Take 40 mg by mouth once daily. - furosemide (LASIX) 40 mg tablet Take 40 mg by mouth once daily. - spironolactone (ALDACTONE) 25 mg tablet Take 25 mg by mouth once daily. - esomeprazole (NEXIUM) 20 mg capsule Take 20 mg by mouth as directed. Twice per week - metoprolol tartrate, short acting, (LOPRESSOR) 25 mg tablet Take 1 tablet by mouth twice daily. - nitroglycerin sublingual (NITROQUICK) 0.4 mg SL tablet Dissolve 1 tablet under the tongue every 5 minutes as needed. - COQ10, UBIQUINOL, ORAL Take 1 tablet by mouth once daily. - Chromium Picolinate 500 mcg cap Take 1 tablet by mouth once daily. - MAGNESIUM ORAL Take 1 tablet by mouth once daily. 600mg - ZAFIRLUKAST 20 mg tablet Take 20 mg by mouth once daily. - sodium chloride 0.9 % nebulizer solution Use 3 mL via nebulizer as needed. - albuterol 2.5 mg /3 mL (0.083 %) nebulizer solution Use 2.5 mg via nebulizer every 6 hours as needed. 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/07/2021 Malignant neoplasm of upper lobe of left lung (*05/16/2022 Encounter Status:Closed by LAUREN VELASCO on 05/23/22 [facility] 05-16-2022 [facility] Office Visit ([place] ) ----- JEMIMA BRADFORD ([id number]) 1940 F Date Time Provider Department 05/16/22 10:00 AM MITZI AMARAL [place] During your visit today, we recorded the following information about you: Pulse Blood pressure Weight Height 56/minute 137/72 83.9 kg 1.651 m Mitzi Amaral MD 05/16/2022 2:44 PM Signed REASON FOR EVALUATION: Clinical stage I adenocarcinoma in the left upper lobe. HPI: Jemima Bradford is a very pleasant 82-year old female who is a former 3.5+ pack year smoker. She has a history of DCIS breast cancer. She also has a long history of intermittent shortness of breath. Recently, she noticed increasing shortness of breath/dyspnea on exertion. On 04/04/2022 she had a chest x-ray and VQ scan which were not revealing. She had a CT chest on 04/04/22 that showed a scarlike opacity in the left upper lobe measuring 1.5 x 1.3 cm. Comparison with a CT chest in December 2019 revealed a scarlike lesion in the area measuring 1.1 x 0.8 cm. PET scan on 04/16/22 showed that the left upper lobe nodule was hypermetabolic, SUV 3.7. There was no other uptake appreciated. 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 MRI brain on 05/02/22 shows no evidence for metastatic disease. The patient has been referred to me today to discuss potential surgical resection of her newly diagnosed clinical stage I adenocarcinoma in her left upper lobe. Clinically the patient feels fairly well. Her main complaint is chronic shortness of breath or dyspnea exertion. Occasional dry cough, no hemoptysis. No unusual pain or weight loss. ALLERGIES: No known drug allergies MEDICATIONS: Current Outpatient Medications on File Prior to Visit Medication Sig hydrOXYchloroQUINE (PLAQUENIL) 200 mg tablet ALTERNATE BETWEEN 1 TABLET BY MOUTH TWICE DAILY AND 1 TABLET ONCE DAILY WITH FOOD. GET YEARLY EYE EXAM. (Patient not taking: No sig reported) cetirizine (ZYRTEC) 10 mg tablet Cetirizine (Zyrtec) 10 mg Tablet Active 10 MG PO Daily February 06, 2018 5:01pm (Patient not taking: Reported on 05/10/2022) anastrozole (ARIMIDEX) 1 mg tablet Take 1 tablet by mouth once daily. levothyroxine (SYNTHROID) 50 mcg tablet levothyroxine 50 mcg tablet TAKE 1 TABLET BY MOUTH DAILY FOR HYPOTHYROIDISM apixaban (ELIQUIS) 5 mg tab(s) Eliquis 5 mg tablet Take 1 tablet twice a day by oral route for 90 days. calcium carbonate (CALTRATE) 600 mg calcium (1,500 mg) tab 600 mg. melatonin 10 mg tab 10 mg. predniSONE (DELTASONE) 5 mg tablet Take 1 mg by mouth once daily. 1 every other day (Patient not taking: No sig reported) aspirin, enteric coated (ASPIRIN, ENTERIC COATED) 81 mg EC tablet Take 81 mg by mouth once daily. rosuvastatin (CRESTOR) 40 mg tablet Take 40 mg by mouth once daily. furosemide (LASIX) 40 mg tablet Take 40 mg by mouth once daily. spironolactone (ALDACTONE) 25 mg tablet Take 25 mg by mouth once daily. esomeprazole (NEXIUM) 20 mg capsule Take 20 mg by mouth as directed. Twice per week metoprolol tartrate, short acting, (LOPRESSOR) 25 mg tablet Take 1 tablet by mouth twice daily. nitroglycerin sublingual (NITROQUICK) 0.4 mg SL tablet Dissolve 1 tablet under the tongue every 5 minutes as needed. COQ10, UBIQUINOL, ORAL Take 1 tablet by mouth once daily. Chromium Picolinate 500 mcg cap Take 1 tablet by mouth once daily. MAGNESIUM ORAL Take 1 tablet by mouth once daily. 600mg ZAFIRLUKAST 20 mg tablet Take 20 mg by mouth once daily. sodium chloride 0.9 % nebulizer solution Use 3 mL via nebulizer as needed. albuterol 2.5 mg /3 mL (0.083 %) nebulizer solution Use 2.5 mg via nebulizer every 6 hours as needed. No current facility-administered medications on file prior to visit. PAST MEDICAL HISTORY: HISTORIES PAST MEDICAL HISTORY Diagnosis Date Aortic valve stenosis mild Arthritis Asthma controlled no inhalers Coronary artery disease Hypercholesteremia Hypertension Polymyalgia rheumatica (HCC) PAST SURGICAL HISTORY Procedure Laterality Date APPENDECTOMY 07/01/1978 ARTHROSCOPY KNEE MEDIAL RELEASE 2002,2010 rt AND Lt knee ARTHRP KNE CONDYLEANDPLATU MEDIALANDLAT COMPARTMENTS Right 07/01/2013 right x2 BREAST LUMPECTOMY HX BUNIONECTOMY, LAPIDUS-TYPE 07/01/2010 rt toe CHOLECYSTECTOMY 07/01/2005 COLONOSCOPY AND POLYPECTOMY 2004, 2005, 2009 x 3 CYSTO LASER TX URETERAL CALC 07/01/2009 stent placement CYSTO W/RETROGRADE x 6 DANDC (INCOMPLETE AB), ANY TRIMESTER 07/01/1974 EXCISE EXCESS SKIN TISSUE,ABDOMEN 07/01/1994 Abdominalplasty LITHOTRIPSY PROC UNILATERAL 07/01/1985 rt kidney REMV CATARACT EXTRACAP,INSERT LENS STENT PLACEMENT 07/01/2003 LAD TONSILLECTOMY HX as child Social History Tobacco Use Smoking status: Former Packs/day: 0.50 Years: 7.00 Pack years: 3.50 Types: [employer]ig[employer] (more content not included)... Normal [facility] APTTon 04-25-2022 aPTT Coag (Bld) [Time] 18.4 s Low 20.5-30.5 [facility] Comment on above: Result Comment: IV Heparin Therapy Range: 48.6-77.8 No clot found in specimen, results questionable. No clot found in specimen, results questionable. Performed By: #### P T, PTT, PLT #### [address] [id number] [employer] Manager: Mitzi Pack MD PTon 04-25-2022 INR Coag (PPP) [Relative time] 1.0 {INR} Normal [facility] Comment on above: Result Comment: Therapeutic Range: Moderate Anticoagulant Intensity: INR = 2.0-3.0 High Anticoagulant Intensity: INR = 2.5-3.5 No clot found in specimen, results questionable. Performed By: #### P T, PTT, PLT #### [address] [id number] [employer] Manager: Mitzi Pack MD PT Coag (PPP) [Time] 10.8 s Normal 9.1-12.3 [facility] Comment on above: Result Comment: No c lot found in specimen, results questionable. Performed By: #### P T, PTT, PLT #### [address] [address] [employer] Manager: Mitzi Pack MD Platelet Counton 04-25-2022 Platelets (Bld) [#/Vol] 148 10*3/uL Normal 138-453 [facility] Comment on above: Performed By: #### P T, PTT, PLT #### [address] [address] [employer] Manager: Mitzi Pack MD Surgical Pathologyon 022 Surgical Pathology (NOTE) -- Diagnosis -- LEFT LUNG, UPPER LOBE, CT-GUIDED CORE NEEDLE BIOPSY: - INVASIVE ADENOCARCINOMA CONSISTENT WITH LUNG PRIMARY. 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 Martinez Thompson M.D. Electronically Signed Out [facility]/04/26/2022 Clinical Information Pre-op Diagnosis: LEFT LUNG NODULE, HX: BREAST CA RT SIDE, FORMER SMOKER (1971), PTT 18.4; PT 10.8; INR 1; PLATELET 148 Source of Specimen A: LEFT LUNG NODULE Gross Description JEMIMA BRADFORD, LEFT LUNG Three core needle biopsies, 0.1, 0.2 and 0.2 cm, and < 0.1 cm in diameter. Entirely 1cs. ep tm Intraoperative Diagnosis Immediate Evaluation of Core Biopsy: Adequate material. Procedure terminated after one pass by Radiologist due to hemoptysis. ([facility]) Microscopic Description The biopsy pieces demonstrate involvement by adenocarcinoma with mucinous and nonmucinous features. A component of the tumor has a lepidic growth pattern, but another portion demonstrates invasive features with associated fibrous reaction. Nonneoplastic alveolar lung tissue is also present in the biopsy. With immunostains (controls appropriate), the neoplastic cells express TTF-1 and cytokeratin 7 and are negative for GATA3 (breast marker), consistent with primary pulmonary adenocarcinoma. SURGICAL PATHOLOGY CONSULTATION Patient Name: JEMIMA BRADFORD [facility] Rec: [id number] Path Number: [id number] [employer] [facility] ANATOMIC PATHOLOGY [address] [place] [phone] Normal [facility] Comment on above: Performed By: #### P PPVS #### [employer] [address] [place] [address] [id number] [employer] Manager: Mitzi Pack MD XR CHEST PORTABLEon 04-25-20 XR CHEST PORTABLE EXAMINATION: ONE XRAY VIEW OF THE CHEST 04/25/2022 12:57 pm COMPARISON: April 04, 2022 HISTORY: ORDERING SYSTEM PROVIDED HISTORY: S/P left lung bx TECHNOLOGIST PROVIDED HISTORY: S/P left lung bx Reason for Exam: s/p left lung BX port upr at 1245pm FINDINGS: The patient is status post left upper lobe nodule biopsy. Increased ill-defined opacity in the lateral left upper lobe is the site of biopsy. No pneumothorax. Emphysematous changes of the lungs redemonstrated. No sizable pleural effusion. Stable cardiomediastinal silhouette. No significant pulmonary edema. IMPRESSION: Status post left upper lobe biopsy with small surrounding parenchymal hematoma. No pneumothorax. Interpreted by: Adi John MD Signed by: Adi John MD 04/25/22 Final result Normal [facility] Basic Metabolic Panelon 10-2 Anion gap [Moles/Vol] 10 mmol/L 9 - 17 mmol/L [facility] [employer] Calcium [Mass/Vol] 9.4 mg/dL 8.6 - 10. 4 mg/dL [facility] [employer] Chloride [Moles/Vol] 103 mmol/L 98 - 10 7 mmol/L [facility] [employer] CO2 [Moles/Vol] 29 mmol/L 20 - 31 mmol/L [facility] Creatinine [Mass/Vol] 1.12 mg/dL High 0.50 - 0.90 mg/dL [facility] GFR/1.73 sq M.predicted MDRD (S/P/Bld) [Vol rate/Area] 49 mL/min/{1.73_m2} Low - PINF [facility] Comment on above: Effective Apr 02, 2022 These results are not intended for use in patients <18 years of age. eGFR results are calculated without a race factor using the 2020 CKD-EPI equation. Careful clinical correlation is recommended, particularly when comparing to results calculated using previous equations. The CKD-EPI equation is less accurate in patients with extremes of muscle mass, extra-renal metabolism of creatine, excessive creatine ingestion, or following therapy that affects renal tubular secretion. Glucose [Mass/Vol] 114 mg/dL High 70 - 99 mg/dL [facility] Interpretation and review of laboratory results Abnormal [facility] [employer] Potassium [Moles/Vol] 4.2 mmol/L 3.7 - 5.3 mmol/L [facility] [employer] Sodium [Moles/Vol] 142 mmol/L 135 - 144 mmol/L [facility] Urea nitrogen (BldV) [Mass/Vol] 20 mg/dL 8 - 23 mg/dL [facility] Urea nitrogen/Creatinine (Bld) [Mass ratio] 18 9 - 20 [facility] CBC with Auto Differentialon 04-23-2022 Absolute Eos # 0.30 [facility] Absolute Lymph # 1.50 [facility] Absolute Dundy # 0.50 [facility] Basophils (Bld) [#/Vol] 0.10 10*3/uL [facility] Basophils/100 WBC (Bld) 1 % 0 - 2 % [facility] Differential Type YES [facility] Eosinophils/100 WBC (Bld) 6 % High 0 - 5 % [facility] Hematocrit (Bld) [Volume fraction] 33.7 % Low 36 - 46 % [facility] Hemoglobin (Bld) [Mass/Vol] 11.5 g/dL Low 12.0 - 16.0 g/dL [facility] Interpretation and review of laboratory results Abnormal [facility] Lymphocytes/100 WBC (Bld) 27 % 15 - 40 % [facility] MCH (RBC) [Entitic mass] 28.6 pg 26 - 34 pg [facility] MCHC (RBC) [Mass/Vol] 34.1 g/dL 31 - 3 7 g/dL [facility] MCV (RBC) [Entitic vol] 83.8 fL 80 - 100 fL [facility] Monocytes/100 WBC (Bld) 9 % High 4 - 8 % [facility] Platelet distribution width (Bld) [Ratio] 16.8 % High 12.1 - 15.2 % [facility] Platelets (Bld) [#/Vol] 156 10*3/uL [facility] RBC (Bld) [#/Vol] 4.02 10*6/uL 4.0 - 5.2 m/uL [facility] Segmented neutrophils/100 WBC (Bld) 57 % 47 - 75 % [facility] Segs Absolute 3.20 [facility] WBC (Bld) [#/Vol] 5.6 10*3/uL [facility] Hepatic Function Panelon Albumin [Mass/Vol] 4.2 g/dL 3.5 - 5.2 g/dL [facility] ALP (Bld) [Catalytic activity/Vol] 84 U/L 35 - 104 U/L [facility] ALT [Catalytic activity/Vol] 15 U/L 5 - 33 U/L [facility] AST [Catalytic activity/Vol] 25 U/L NINF - 32 U/L [facility] [employer] Bilirubin [Mass/Vol] 0.5 mg/dL 0.30 - 1.20 mg/dL [facility] [employer] Bilirubin, Indirect Can not be calculated 0.00 - 1.00 mg/dL [facility] [employer] Bilirubin.indirect [Mass/Vol] mg/dL NINF - 0.31 mg/dL [facility] [employer] Protein [Mass/Vol] 6.8 g/dL 6.4 - 8.3 g/dL [facility] [employer] Lipid Panelon 04-23-2022 Cholesterol [Mass/Vol] 153 mg/dL NINF - 200 mg/dL [facility] [employer] Comment on above: Cholesterol Guidelines: <200 Desirable 200-240 Borderline >240 Undesirable Cholesterol in HDL [Mass/Vol] 35 mg/dL Low 40 - PINF mg/dL [facility] [employer] Comment on above: HDL Guidelines: <40 Undesirable 40-59 Borderline >59 Desirable Cholesterol in LDL [Mass/Vol] 86 mg/dL 0 - 130 mg/dL [facility] [employer] Comment on above: LDL Guidelines: <100 Desirable 100-129 Near to/above Desirable 130-159 Borderline >159 Undesirable Direct (measured) LDL and calculated LDL are not interchangeable tests. Cholesterol.total/Cho lesterol in HDL [Mass ratio] 4.4 {ratio} NINF - 5 [facility] Interpretation and review of laboratory results Abnormal [facility] Triglyceride [Mass/Vol] 162 mg/dL High NINF - 150 mg/dL [facility] [employer] Comment on above: Triglyceride Guidelines: <150 Desirable 150-199 Borderline 200-499 High >499 Very high Based on AHA Guidelines for fasting triglyceride, March 2012. [facility] [employer] No Panel Informationon 04-23 [facility] [employer] Patient Fasting?on 2 Patient Fasting? YES [facility] TSH with Reflexon 04-23-2022 TSH Qn 3.79 m[IU]/L [facility] Vitamin D 25 Hydroxyon 04-23 Vit D, 25-Hydroxy 107.9 ng/mL 29.9 - PIN F ng/mL [facility] Comment on above: Reference Range: Vitamin D status Range Deficiency <20 ng/mL Mild Deficiency 20-30 ng/mL Sufficiency 30-100 ng/mL Toxicity >100 ng/mL [facility] Basic Metabolic Panelon Anion gap [Moles/Vol] 9 mmol/L 9 - 17 mmol/L [facility] Calcium [Mass/Vol] 9.8 mg/dL 8.6 - 10. 4 mg/dL [facility] Chloride [Moles/Vol] 102 mmol/L 98 - 10 7 mmol/L [facility] CO2 [Moles/Vol] 31 mmol/L 20 - 31 mmol/L [facility] Creatinine [Mass/Vol] 1.26 mg/dL High 0.5 - 0.9 mg/dL [facility] GFR/1.73 sq M.predicted MDRD (S/P/Bld) [Vol rate/Area] 43 mL/min/{1.73_m2} Low - PINF [facility] Comment on above: Effective Apr 02, 2022 These results are not intended for use in patients <18 years of age. eGFR results are calculated without a race factor using the 2020 CKD-EPI equation. Careful clinical correlation is recommended, particularly when comparing to results calculated using previous equations. The CKD-EPI equation is less accurate in patients with extremes of muscle mass, extra-renal metabolism of creatine, excessive creatine ingestion, or following therapy that affects renal tubular secretion. Glucose [Mass/Vol] 113 mg/dL High 70 - 99 mg/dL [facility] Interpretation and review of laboratory results Abnormal [facility] Potassium [Moles/Vol] 4.1 mmol/L 3.7 - 5.3 mmol/L [facility] Sodium [Moles/Vol] 142 mmol/L 135 - 144 mmol/L [facility] Urea nitrogen (BldV) [Mass/Vol] 22 mg/dL 8 - 23 mg/dL [facility] Urea nitrogen/Creatinine (Bld) [Mass ratio] 17 9 - 20 [facility] CH[facility] DIGITAL DIAGNOSTIC BILATERALon 04-05-2022 BI-RADS 2 - Benign, no evidence of malignancy. Normal interval followup is recommended in 12 months. OVERALL ASSESSMENT- BENIGN A letter of notification will be sent to the patient regarding the results. [facility] EXAM: US BREAST LIMI SOL RIGHT, [facility] CHRISSY DIGITAL DIAGNOSTIC BILATERAL HISTORY: D05.11 Lump [...] masses. Scattered benign calcifications. Left breast negative. [facility] Radiology Study observation (narrative) [facility] Work Phone: [facility] [employer] DIAGNOSTIC BILATERALOrdered By: Colten Whitehead on 04-05-2022 [facility] Work Phone: CT CHEST HIGH RESOLUTIONon 1 Suspicious nodule increased in size and irregular nodularity. Neoplasm possible. Consider PET/CT or biopsy. Mild linear radiation change in the anterior right upper lobe likely secondary to prior right breast carcinoma therapy. [facility] EXAMINATION: CT CHES T HIGH RESOLUTION HISTORY: R94.2, 81-year-old female decreased diffusion capacity. Lung nodule. Ex-smoker. Prior right breast carcinoma. Shortness of breath on exertion. COMPARISON: CT scan chest, [place], 01/23/2020. TECHNIQUE: High-resolution CT scan chest. Prone and supine images. Dose reduction techniques were achieved by using automated exposure control and/or adjustment of mA and/or kV according to patient size and/or use of iterative reconstruction technique. FINDINGS: PERTINENT POSITIVES: Previous linear scarlike opacity in the left upper lobe measuring 11 x 8 mm in 2019 is now more irregularly lobulated and measures 1.5 x 1.3 cm and is suspicious. PERTINENT NEGATIVES: Prior pleural effusions have resolved. COINCIDENTAL FINDINGS: Postoperative changes right breast. Previous internal fixation sternum. Left atrial appendage clip. Aortic valve prosthesis. Mild radiation change in the right upper lobe is new. Cholecystectomy. Small hiatal hernia. ROUTINE EXAMINATION: Degenerative changes in the spine. No adenopathy. [facility] Colten Whitehead Jr., MD - 04/04/2022 EXAMINATION: CT CHEST HIGH RESOLUTION HISTORY: R94.2, 81-year-old female decreased diffusion capacity. Lung nodule. Ex-smoker. Prior right breast carcinoma. Shortness of breath on exertion. COMPARISON: CT scan chest, [place], 01/23/2020. TECHNIQUE: High-resolution CT scan chest. Prone and supine images. Dose reduction techniques were achieved by using automated exposure control and/or adjustment of mA and/or kV according to patient size and/or use of iterative reconstruction technique. FINDINGS: PERTINENT POSITIVES: Previous linear scarlike opacity in the left upper lobe measuring 11 x 8 mm in 2019 is now more irregularly lobulated and measures 1.5 x 1.3 cm and is suspicious. PERTINENT NEGATIVES: Prior pleural effusions have resolved. COINCIDENTAL FINDINGS: Postoperative changes right breast. Previous internal fixation sternum. Left atrial appendage clip. Aortic valve prosthesis. Mild radiation change in the right upper lobe is new. Cholecystectomy. Small hiatal hernia. ROUTINE EXAMINATION: Degenerative changes in the spine. No adenopathy. IMPRESSION: Suspicious nodule increased in size and irregular nodularity. Neoplasm possible. Consider PET/CT or biopsy. Mild linear radiation change in the anterior right upper lobe likely secondary to prior right breast carcinoma therapy. [employer] Work Phone: Radiology Study observation (narrative) [employer] Phone: CT CHEST HIGH RESOLUTIONOrde red By: Colten Whitehead on 04-04-2022 [employer] Phone: NM LUNG VENT/PERFUSION (VQ)o n 04-04-2022 Normal VQ scan. [facility] NUCLEAR MEDICINE V/Q SCAN HISTORY: Shortness of breath. COMPARISON: Chest X-ray 04/04/2022. METHOD: For the ventilation portion of the study, the patient inhaled 4.3 mCi of Tc-99m-DTPA in aerosol form and ventilation images in multiple projections was performed. For the perfusion portion of the study, the patient was injected intravenously with 35.8 mCi of Tc-99m-MAA and perfusion images of the lungs in multiple projections were again performed. FINDINGS: There are no perfusion defects. There are no ventilation/perfusion mismatches. [facility] Dontrell Hatfield MD - 04/04/2022 NUCLEAR MEDICINE V/Q SCAN HISTORY: Shortness of breath. COMPARISON: Chest X-ray 04/04/2022. METHOD: For the ventilation portion of the study, the patient inhaled 4.3 mCi of Tc-99m-DTPA in aerosol form and ventilation images in multiple projections was performed. For the perfusion portion of the study, the patient was injected intravenously with 35.8 mCi of Tc-99m-MAA and perfusion images of the lungs in multiple projections were again performed. FINDINGS: There are no perfusion defects. There are no ventilation/perfusion mismatches. IMPRESSION: Normal VQ scan. [employer] Phone: Radiology Study observation (narrative) [employer] Phone: NM LUNG VENT/PERFUSION (VQ)O rdered By: Dontrell Hatfield on 04-04-2022 [employer] Phone: XR CHEST (2 VW)on 04-04-2022 Prior internal fixation sternum with left atrial appendage clip. [facility] EXAM: XR CHEST (2 VW ) HISTORY: Reason for exam:->dyspnea, lung nodule or mass COMPARISON: Chest 04/20/2014. CT chest dictated separately today. TECHNIQUE: 2 views chest. FINDINGS: PERTINENT POSITIVES: Multilevel plate and screw fixation sternum. Left atrial appendage clip. PERTINENT NEGATIVES: No suspicious mass or nodule. COINCIDENTAL FINDINGS: Age expected degenerative changes in the spine. ROUTINE EXAMINATION: No effusion or pneumothorax. [facility] Colten Salazar Jr., MD - 04/04/2022 EXAM: XR CHEST (2 VW) HISTORY: Reason for exam:->dyspnea, lung nodule or mass COMPARISON: Chest 04/20/2014. CT chest dictated separately today. TECHNIQUE: 2 views chest. FINDINGS: PERTINENT POSITIVES: Multilevel plate and screw fixation sternum. Left atrial appendage clip. PERTINENT NEGATIVES: No suspicious mass or nodule. COINCIDENTAL FINDINGS: Age expected degenerative changes in the spine. ROUTINE EXAMINATION: No effusion or pneumothorax. IMPRESSION: Prior internal fixation sternum with left atrial appendage clip. [employer] Work Phone: Radiology Study observation (narrative) [employer] Work Phone: XR CHEST (2 VW)Ordered By: Anjelica Whitehead on 04-04-2022 [employer] Work Phone: C-Reactive Proteinon 022 CRP [Mass/Vol] mg/L 0 - 5 mg/L [employer] [place] Sedimentation Rateon 022 Sed Rate 12 [employer] HEMOGLOBINon 11-08-2021 Hemoglobin (Bld) [Mass/Vol] 11.9 g/dL Critically low 12.0-16.0 [facility] Comment on above: Performed By: #### H GB #### [facility] [address] [place] [address] Dr. Mark Walsh RENAL COMPLETEon 10-05-19 22 Prevoid volume was 1 42 cc and post void residual was 11 [...] a post void residual of approximately 8%. [facility] EXAM: US RENAL COMPL ETE HISTORY: N20.0 . COMPARISON: 05/06/2020 TECHNIQUE: Velasco scale and color imaging was performed FINDINGS: [...] wall thickening. Bilateral ureteral jets were noted. [facility] Eleazar Jacobs MD - 10/04/2021 EXAM: US RENAL COMPLETE HISTORY: N20.0 . COMPARISON: 05/06/2020 TECHNIQUE: Velasco scale and color imaging was performed FINDINGS: [...] wall thickening. Bilateral ureteral jets were noted. IMPRESSION: Prevoid volume [...] a post void residual of approximately 8%. [employer] Phone: Radiology Study observation (narrative) [employer] Phone: RENAL COMPLETEOrdered By: Eleazar Jacobs on 10-04-2021 [employer] Phone: Basic Metabolic PanelOrdered By: Jasmyne Casillas on 2021 Anion gap [Moles/Vol] 6 mmol/L Low 9 - 17 mmol/L [employer] Phone: Calcium [Mass/Vol] 9.1 mg/dL 8.6 - 10. 4 mg/dL [employer] Phone: Chloride [Moles/Vol] 107 mmol/L 98 - 10 7 mmol/L [employer] Phone: CO2 [Moles/Vol] 29 mmol/L 20 - 31 mmol/L [employer] Phone: Creatinine [Mass/Vol] 1.25 mg/dL High 0.50 - 0.90 mg/dL [employer] Phone: GFR 50 mL/min Low >60 [employer] Phone: GFR Non- 41 mL/min Low >60 [employer] Phone: GFR/1.73 sq M.predicted MDRD (S/P/Bld) [Vol rate/Area] [employer] Phone: Comment on above: Average GFR for 70 o r more years old: 75 mL/min/1.73sq m Chronic Kidney Disease: <60 mL/min/1.73sq m Kidney failure: <15 mL/min/1.73sq m eGFR calculated using average adult body mass. Additional eGFR calculator available at: http://www.[employer]/multiple_crcl_2012.htm GFR/1.73 sq M.predicted MDRD (S/P/Bld) [Vol rate/Area] NOT REPORTED [employer] Phone: Glucose [Mass/Vol] 109 mg/dL High 70 - 99 mg/dL [employer] Phone: Interpretation and review of laboratory results Abnormal [employer] Phone: Potassium [Moles/Vol] 4.1 mmol/L 3.7 - 5.3 mmol/L [employer] Phone: Sodium [Moles/Vol] 142 mmol/L 135 - 144 mmol/L [employer] Phone: Urea nitrogen (BldV) [Mass/Vol] 22 mg/dL 8 - 23 mg/dL [employer] Phone: Urea nitrogen/Creatinine (Bld) [Mass ratio] 18 [employer] Work Phone: [employer] Work Phone: Brain Natriuretic PeptideOrd ered By: Jasmyne Casillas on 02-02-2021 BNP Interpretation Pro-BNP Reference Range: [employer] Phone: Comment on above: Rule Out: <300 Jones Zone: Age <50 300-450 Age 50-75 300-900 Age >75 300-1800 Usually represents mild to moderate HF but other cardiopulmonary causes cannot be ruled out. Rule In: Age <50 >450 Age 50-75 >900 Age >75 >1800 Interpretation and review of laboratory results Abnormal [employer] Phone: Natriuretic peptide B (Bld) [Mass/Vol] 540 pg/mL High <300 [employer] Phone: Comment on above: Pro-BNP results sapna ot be compared to BNP results. [employer] Work Phone: CBC Auto DifferentialOrdered By: Jasmyne Casillas on 02-02-2021 [employer] # 0.20 [employer] [facility] Work Phone: Absolute Immature Granulocyte NOT REPORTED [employer] Work Phone: Absolute Lymph # 1.20 [employer] [facility] Work Phone: [employer] Dundy # 0.60 [employer] [facility] Work Phone: Basophils (Bld) [#/Vol] 0.00 10*3/uL [facility] Work Phone: Basophils/100 WBC (Bld) 1 % 0 - 2 % [email or web address] Phone: Differential Type YES [facility] Work Phone: Eosinophils/100 WBC (Bld) 4 % 0 - 5 % [employer] Work Phone: Hematocrit (Bld) [Volume fraction] 36.0 % 36 - 46 % [email or web address] Phone: Hemoglobin.gastrointe stinal spec 1 Ql (Stl) 12.3 g/dL 12.0 - 16.0 g/dL [employer] Phone: Immature Granulocytes NOT REPORTED 0 % [facility] Work Phone: Interpretation and review of laboratory results Abnormal [employer] Phone: Lymphocytes/100 WBC (Bld) 22 % 15 - 40 % [employer] Phone: MCH (RBC) [Entitic mass] 29.2 pg 26 - 34 pg [employer] Phone: MCHC (RBC) [Mass/Vol] 34.2 g/dL 31 - 3 7 g/dL [employer] Phone: MCV (RBC) [Entitic vol] 85.3 fL 80 - 100 fL [employer] Phone: Monocytes/100 WBC (Bld) 11 % High 4 - 8 % [employer] Phone: NRBC Automated NOT REPORTED per 100 WBC [employer]ries [employer] Work Phone: Platelet distribution width (Bld) [Ratio] 17.5 % High 12.1 - 15.2 % [employer] Phone: Platelet Estimate NOT REPORTED [employer] Phone: Platelet mean volume (Bld) [Entitic vol] NOT REPORTED 6.0 - 12.0 fL [employer] Phone: Platelets (Bld) [#/Vol] 122 10*3/uL Low [employer] Phone: RBC (Bld) [#/Vol] 4.22 10*6/uL 4.0 - 5.2 m/uL [employer] Phone: RBC (Bld) [#/Vol] NOT REPORTED [employer] Phone: Segmented neutrophils/100 WBC (Bld) 62 % 47 - 75 % [employer] Phone: Segs [employer] 3.30 [employer] Work Phone: WBC (Bld) [#/Vol] 5.3 10*3/uL [employer] Phone: WBC (Bld) [#/Vol] NOT REPORTED [employer] Phone: [employer] Phone: [facility] CHRISSY DIGITAL DIAGNOSTIC BILATERALOrdered By: Babatunde Pizarro on 02-02-2021 BI-RADS 2 - Benign, no evidence of malignancy. Normal interval followup is recommended in 12 months. OVERALL ASSESSMENT- BENIGN A letter of notification will be sent to the patient regarding the results. Findings were discussed with the patient. [employer] Phone: HISTORY: Screening. TECHNIQUE: Bilateral digital screening mammogram with CAD. 2-D and 3-D tomography. FINDINGS: Two views of each breast show heterogeneously dense fibroglandular tissue, which may obscure small masses, bilaterally symmetric. Scattered benign calcifications. Bilateral biopsy markers. Postoperative changes inferior right breast at the site of a prior malignancy treated with lumpectomy and radiation. Patient is tender about the area with no visible mass. No evidence of recurrent or residual malignancy. No other significant change from 05/05/2020 right mammogram, bilateral mammogram 05/08/2019. Suspicious calcifications: None. Suspicious mass: None. (If skin markers were applied, circles represent skin lesions and linear markers represent scars.) [employer] Work Phone: [employer] Work Phone: BASIC METABOLIC PANELon 07 Calcium [Mass/Vol] 9.7 mg/dL Normal 8.6-10.3 [facility] Comment on above: Order Comment: No: D o not add to previous draw Performed By: #### 1 69, [id number] #### [facility] [address] [place] [address], [place] Chloride [Moles/Vol] 104 mmol/L Normal 98-107 [facility] Comment on above: Order Comment: No: D o not add to previous draw Performed By: #### 1 69, [id number] #### [facility] [address] [place] [address], [place] CO2 [Moles/Vol] 28 mmol/L Normal 21-31 [facility] Comment on above: Order Comment: No: D o not add to previous draw Performed By: #### 1 69, [id number] #### [facility] [address] [place] [address], [place] Creatinine [Mass/Vol] 1.24 mg/dL High 0.60-1.20 [facility] Comment on above: Order Comment: No: D o not add to previous draw Performed By: #### 1 69, 62000 #### [facility] [address] [place] [address], [place] eGFR- 50 ml/min/1.73sq m Abnormal >60 [facility] Comment on above: Order Comment: No: D o not add to previous draw Result Comment: Calc ulation may not be valid for patients over 70 years Performed By: #### 1 69, [id number] #### [facility] [address] [place] [address], [place] eGFR- non- 42 ml/min/1.73sq m Abnormal >60 [facility] Comment on above: Order Comment: No: D o not add to previous draw Result Comment: Calc ulation may not be valid for patients over 70 years Performed By: #### 1 69, 75530 #### [facility] [address] [place] [address], [facility] Glucose [Mass/Vol] 120 mg/dL High 70-100 [facility] Comment on above: Order Comment: No: D o not add to previous draw Performed By: #### 1 69, 03765 #### [facility] [address] [place] [address], [facility] Potassium [Moles/Vol] 3.6 mmol/L Normal 3.5-5.1 [facility] Comment on above: Order Comment: No: D o not add to previous draw Performed By: #### 1 69, [id number] #### [facility] [address] [place] [id number], [facility] Sodium [Moles/Vol] 140 mmol/L Normal 136-145 [facility] Comment on above: Order Comment: No: D o not add to previous draw Performed By: #### 1 69, [id number] #### [facility] [address] [place] [id number], [facility] Urea nitrogen [Mass/Vol] 28 mg/dL High 7-25 [facility] Comment on above: Order Comment: No: D o not add to previous draw Performed By: #### 1 69, 48765 #### [facility] [address] [place] [id number], [facility] CBC W/DIFFon 01-09-2021 ABS IMM GRANS 0.0 10*3/uL Normal 0.0-0.2 [facility] Comment on above: Performed By: #### 1 69, [id number] #### [facility] [address] [place] [address], [facility] ABS NEUTROPHILS 4.4 10*3/uL Normal 1.6-7.6 [facility] Comment on above: Performed By: #### 1 69, 85350 #### [facility] [address] [facility] [place] [address], [facility] Basophils (Bld) [#/Vol] 0.1 10*3/uL Normal 0.0-0.2 [facility] Comment on above: Performed By: #### 1 69, 96039 #### [facility] [address] [facility] [place] [address], [facility] Basophils/100 WBC (Bld) 0.8 % Normal 0.0-1.0 [facility] Comment on above: Performed By: #### 1 69, 13303 #### [facility] [address] [facility] [place] [address], [facility] Eosinophils (Bld) [#/Vol] 0.2 10*3/uL Normal 0.0-0.5 [facility] Comment on above: Performed By: #### 1 69, 34778 #### [facility] [address] [facility] [place] [address], [facility] Eosinophils/100 WBC (Bld) 3.2 % Normal 0.0-6.0 [facility] Comment on above: Performed By: #### 1 69, 74195 #### [facility] [address] [facility]. [address] Erythrocyte distribution width (RBC) [Ratio] 17.4 % High 11.5-15.0 [facility] Comment on above: Performed By: #### 1 69, 62889 #### [facility] [address] [facility] [place] [address], [facility] Hematocrit (Bld) [Volume fraction] 39.7 % Normal 36.0-45.0 [facility] Comment on above: Performed By: #### 1 69, 81911 #### [facility] [address] Hemoglobin (Bld) [Mass/Vol] 12.7 g/dL Normal 12.0-15.0 [facility] Comment on above: Performed By: #### 1 69, 07066 #### [facility] [address] [place] [address], [facility] IMMATURE GRANS 0.5 % Normal 0.0-1.0 [facility] Comment on above: Performed By: #### 1 69, 99599 #### [facility] [address] [place] [address], [facility] Lymphocytes (Bld) [#/Vol] 1.0 10*3/uL Low 1.2-4.0 [facility] Comment on above: Performed By: #### 1 69, 09850 #### [facility] [address] Lymphocytes/100 WBC (Bld) 16.1 % Low 20.0-45.0 [facility] Comment on above: Performed By: #### 1 69, 63209 #### [facility] [address] MCH (RBC) [Entitic mass] 28.5 pg Normal 27.0-33.0 [facility] Comment on above: Performed By: #### 1 69, 94691 #### [facility] [address] MCHC (RBC) [Mass/Vol] 32.0 g/dL Normal 32.0-35.0 [facility] Comment on above: Performed By: #### 1 69, 18212 #### [facility] [address] [place] [address], [facility] MCV (RBC) [Entitic vol] 89.2 fL Normal 82.0-98.0 [facility] Comment on above: Performed By: #### 1 69, 89727 #### [facility] [address] [facility] [address], [facility] Monocytes (Bld) [#/Vol] 0.8 10*3/uL Normal 0.1-1.0 [facility] Comment on above: Performed By: #### 1 69, 61699 #### [facility] [address] [facility] [place] [address], [facility] MONOS 12.2 % High 5.0-12.0 [facility] Comment on above: Performed By: #### 1 69, 80407 #### [facility] [address] [place] [address], [facility] Neutrophils/100 WBC (Bld) 67.2 % Normal 40.0-72.0 [facility] Comment on above: Performed By: #### 1 69, 38780 #### [facility] [address] [place] [address], [facility] Nucleated RBC/100 WBC (Bld) [Ratio] 0 % Normal 0-0 [facility] Comment on above: Performed By: #### 1 69, 04177 #### [facility] [address] [facility] [place] [address], [facility] PLAT CNT 161 10*3/uL Normal 150-400 [facility] Comment on above: Performed By: #### 1 69, 72288 #### [facility] [facility] [address] [facility] [place] [address], [facility] RBC (Bld) [#/Vol] 4.45 10*6/uL Normal 3.80-5.00 [facility] Comment on above: Performed By: #### 1 69, 85112 #### [facility] [address] [facility] [place] [address], [facility] WBC (Bld) [#/Vol] 6.47 10*3/uL Normal 4.00-10.60 [facility] Comment on above: Performed By: #### 1 69, 47988 #### [facility] [address] [place] [address], [facility] MAGNESIUM BLOODon 01-09-2020 Magnesium [Mass/Vol] 2.0 mg/dL Normal 1.9-2.7 [facility] Comment on above: Order Comment: No: D o not add to previous draw Performed By: #### 1 69, 25986 #### [facility] [address] [place] [address], [facility] BASIC METABOLIC PANELon 12-29 Calcium [Mass/Vol] 9.0 mg/dL Normal 8.6-10.3 [facility] Comment on above: Order Comment: No: D o not add to previous draw Performed By: #### 4 999, , 34892 #### [facility] [address] [place] [address], [place] Chloride [Moles/Vol] 103 mmol/L Normal 98-107 [facility] Comment on above: Order Comment: No: D o not add to previous draw Performed By: #### 4 999, , 60272 #### [facility] [address] [place] [address], [facility] CO2 [Moles/Vol] 32 mmol/L High 21-31 [facility] Comment on above: Order Comment: No: D o not add to previous draw Performed By: #### 4 999, , 82232 #### [facility] [address] [place] [address], [place] Creatinine [Mass/Vol] 1.15 mg/dL Normal 0.60-1.20 [facility] Comment on above: Order Comment: No: D o not add to previous draw Performed By: #### 4 1000, , 44086 #### [facility] [address] [place] [address], [place] eGFR- 55 ml/min/1.73sq m Abnormal >60 [facility] Comment on above: Order Comment: No: D o not add to previous draw Result Comment: Calc ulation may not be valid for patients over 70 years Performed By: #### 4 1000, , 26155 #### [facility] [address] [place] [address], [place] eGFR- non- 45 ml/min/1.73sq m Abnormal >60 [facility] Comment on above: Order Comment: No: D o not add to previous draw Result Comment: Calc ulation may not be valid for patients over 70 years Performed By: #### 4 1000, , 20622 #### [facility] [address] [place] [address], [place] Glucose [Mass/Vol] 116 mg/dL High 70-100 [facility] Comment on above: Order Comment: No: D o not add to previous draw Performed By: #### 4 1000, , 08188 #### [facility] [address] [place] [address], [place] Potassium [Moles/Vol] 3.6 mmol/L Normal 3.5-5.1 [facility] Comment on above: Order Comment: No: D o not add to previous draw Performed By: #### 4 1000, , 72411 #### [facility] [address] [place] [address], [place] Sodium [Moles/Vol] 141 mmol/L Normal 136-145 [facility] Comment on above: Order Comment: No: D o not add to previous draw Performed By: #### 4 1000, , 11572 #### [facility] [address] [place] [address], [place] Urea nitrogen [Mass/Vol] 23 mg/dL Normal 7-25 [facility] Comment on above: Order Comment: No: D o not add to previous draw Performed By: #### 4 1000, , 11320 #### [facility] [address] CBC COMPLETE BLOOD COUNTon 0 01-07-2021 Erythrocyte distribution width (RBC) [Ratio] 18.3 % High 11.5-15.0 [facility] Comment on above: Order Comment: No: D o not add to previous draw Performed By: #### 5 0608 #### [facility] [address] [facility] [place] [address], [facility] Hematocrit (Bld) [Volume fraction] 35.6 % Low 36.0-45.0 [facility] Comment on above: Order Comment: No: D o not add to previous draw Performed By: #### 5 0608 #### [facility] [address] Hemoglobin (Bld) [Mass/Vol] 11.4 g/dL Low 12.0-15.0 [facility] Comment on above: Order Comment: No: D o not add to previous draw Performed By: #### 5 0608 #### [facility] [address] [place] [address], [facility] MCH (RBC) [Entitic mass] 28.4 pg Normal 27.0-33.0 [facility] Comment on above: Order Comment: No: D o not add to previous draw Performed By: #### 5 0608 #### [facility] [address] [facility] [address], [facility] MCHC (RBC) [Mass/Vol] 32.0 g/dL Normal 32.0-35.0 [facility] Comment on above: Order Comment: No: D o not add to previous draw Performed By: #### 5 0608 #### [facility] [address] [place] [address], [facility] MCV (RBC) [Entitic vol] 88.8 fL Normal 82.0-98.0 [facility] Comment on above: Order Comment: No: D o not add to previous draw Performed By: #### 5 0608 #### [facility] [address] [place] [address], [facility] Nucleated RBC/100 WBC (Bld) [Ratio] 0 % Normal 0-0 [facility] Comment on above: Order Comment: No: D o not add to previous draw Performed By: #### 5 0608 #### [facility] [address] [place] [address], [facility] PLAT CNT 110 10*3/uL Low 150-400 [facility] Comment on above: Order Comment: No: D o not add to previous draw Performed By: #### 5 0608 #### [facility] [address] [facility] [place] [address], [facility] RBC (Bld) [#/Vol] 4.01 10*6/uL Normal 3.80-5.00 [facility] Comment on above: Order Comment: No: D o not add to previous draw Performed By: #### 5 0608 #### [facility] [address] [facility] [place] [address], [facility] WBC (Bld) [#/Vol] 7.10 10*3/uL Normal 4.00-10.60 [facility] Comment on above: Order Comment: No: D o not add to previous draw Performed By: #### 5 0608 #### [facility] [address] [facility] [place] [address], [facility] MAGNESIUM BLOODon 01-07-2021 Magnesium [Mass/Vol] 1.9 mg/dL Normal 1.9-2.7 [facility] Comment on above: Order Comment: No: D o not add to previous draw Performed By: #### 4 1000, 00468, 42945 #### [facility] [address] [facility] [place] [address], [facility] PHOSPHORUS BLOODon Phosphate [Mass/Vol] 2.2 mg/dL Low 2.5-5.0 [facility] Comment on above: Order Comment: No: D o not add to previous draw Performed By: #### 4 1000, 54640, 99313 #### [facility] [address] [place] [address], [place] BASIC METABOLIC PANELon 07-0 Calcium [Mass/Vol] 9.2 mg/dL Normal 8.6-10.3 [facility] Comment on above: Performed By: #### 1 69, 36509 #### [facility] [address] [place] [address], [place] Chloride [Moles/Vol] 103 mmol/L Normal 98-107 [facility] Comment on above: Performed By: #### 1 69, 29040 #### [facility] [address] [place] [address], [place] CO2 [Moles/Vol] 31 mmol/L Normal 21-31 [facility] Comment on above: Performed By: #### 1 69, 60455 #### [facility] [address] [place] [address], [place] Creatinine [Mass/Vol] 1.25 mg/dL High 0.60-1.20 [facility] Comment on above: Performed By: #### 1 69, 76665 #### [facility] [address] [place] [address], [place] eGFR- 50 ml/min/1.73sq m Abnormal >60 [facility] Comment on above: Result Comment: Calc ulation may not be valid for patients over 70 years Performed By: #### 1 69, 25390 #### [facility] [address] [place] [address], [place] eGFR- non- 42 ml/min/1.73sq m Abnormal >60 [facility] Comment on above: Result Comment: Calc ulation may not be valid for patients over 70 years Performed By: #### 1 69, 11038 #### [facility] [address] [place] [address], [place] Glucose [Mass/Vol] 125 mg/dL High 70-100 [facility] Comment on above: Performed By: #### 1 69, 58664 #### [facility] [address] Potassium [Moles/Vol] 4.4 mmol/L Normal 3.5-5.1 [facility] Comment on above: Performed By: #### 1 69, 08130 #### [facility] [address] Sodium [Moles/Vol] 140 mmol/L Normal 136-145 [facility] Comment on above: Performed By: #### 1 69, 32385 #### [facility] [address] Urea nitrogen [Mass/Vol] 25 mg/dL Normal 7-25 [facility] Comment on above: Performed By: #### 1 69, 71993 #### [facility] [address] BNP EDon 01-06-2021 Natriuretic peptide B (Bld) [Mass/Vol] 447 pg/mL High 0-100 [facility] Comment on above: Result Comment: Give n the appropriate clinical setting a BNP result of >100 pg/mL indicates congestive heart failure. Performed By: #### 3 0935 #### [facility] [address] [facility] [place] [address], [facility] CBC W/DIFFon 01-06-2021 ABS NEUTROPHILS 9.9 10*3/uL High 1.6-7.6 [facility] Comment on above: Performed By: #### 1 69, 70989 #### [facility] [address] Basophils (Bld) [#/Vol] 0.1 10*3/uL Normal 0.0-0.2 [facility] Comment on above: Performed By: #### 1 0070, 06039 #### [facility] [address] [facility] [address], [facility] Basophils/100 WBC (Bld) 0.9 % Normal 0.0-1.0 [facility] Comment on above: Performed By: #### 1 #### [facility] [address] [facility] [place] [address], [facility] Eosinophils (Bld) [#/Vol] 0.0 10*3/uL Normal 0.0-0.5 [facility] Comment on above: Performed By: #### 1 69, #### [facility] [address] [place] [address], [facility] Eosinophils/100 WBC (Bld) 0.0 % Normal 0.0-6.0 [facility] Comment on above: Performed By: #### 1 69, #### [facility] [address] Erythrocyte distribution width (RBC) [Ratio] 18.2 % High 11.5-15.0 [facility] Comment on above: Performed By: #### 1 69, #### [facility] [address] GIANT PLATELETS Present Normal [facility] Comment on above: Performed By: #### 1 69, #### [facility] [address] Hematocrit (Bld) [Volume fraction] 38.3 % Normal 36.0-45.0 [facility] Comment on above: Performed By: #### 1 69, 52405 #### [facility] [address] Hemoglobin (Bld) [Mass/Vol] 12.2 g/dL Normal 12.0-15.0 [facility] Comment on above: Performed By: #### 1 71 #### [facility] [address] [facility] [address], [facility] Lymphocytes (Bld) [#/Vol] 1.0 10*3/uL Low 1.2-4.0 [facility] Comment on above: Performed By: #### 1 69, 44618 #### [facility] [address] [facility] [place] [address], [facility] Lymphocytes/100 WBC (Bld) 8.2 % Low 20.0-45.0 [facility] Comment on above: Performed By: #### 1 69, 98238 #### [facility] [address] [place] [address], [facility] MCH (RBC) [Entitic mass] 28.8 pg Normal 27.0-33.0 [facility] Comment on above: Performed By: #### 1 69, 10577 #### [facility] [address] MCHC (RBC) [Mass/Vol] 31.9 g/dL Low 32.0-35.0 [facility] Comment on above: Performed By: #### 1 69, #### [facility] [address] [facility] [address], [facility] MCV (RBC) [Entitic vol] 90.5 fL Normal 82.0-98.0 [facility] Comment on above: Performed By: #### 1 69, 12719 #### [facility] [address] [place] [address], [facility] Monocytes (Bld) [#/Vol] 1.0 10*3/uL Normal 0.1-1.0 [facility] Comment on above: Performed By: #### 1 69, 96469 #### [facility] [address] [place] [address], [facility] MONOS 8.3 % Normal 5.0-12.0 [facility] Comment on above: Performed By: #### 1 69, 74240 #### [facility] [address] [facility] [address], [facility] Neutrophils/100 WBC (Bld) 82.6 % High 40.0-72.0 [facility] Comment on above: Performed By: #### 1 69, 59357 #### [facility] [address] [facility] [place] [address], [facility] NRBC SCAN Present Normal [facility] Comment on above: Performed By: #### 1 69, 81503 #### [facility] [address] [facility]. [address] Nucleated RBC/100 WBC (Bld) [Ratio] 0 % Normal 0-0 [facility] Comment on above: Performed By: #### 1 69, 19381 #### [facility] [address] [facility]. [address] PLAT CNT 135 10*3/uL Low 150-400 [facility] Comment on above: Performed By: #### 1 69, 77440 #### [facility] [address] [facility] [place] [address], [facility] RBC (Bld) [#/Vol] 4.23 10*6/uL Normal 3.80-5.00 [facility] Comment on above: Performed By: #### 1 69, 97277 #### [facility] [address] [facility] [place] [address], [facility] WBC (Bld) [#/Vol] 12.03 10*3/uL High 4.00-10.60 [facility] Comment on above: Performed By: #### 1 69, 95167 #### [facility] [address] POC SARS COV2 ANTIGEN NEGATI VEon 01-06-2021 POC SARS COV2 ANTIGEN NEG Negative Normal NEGATIVE [facility] Comment on above: Result Comment: Nega tive results from patients with symptom onset beyond seven days, should be treated presumptive and confirmation with a molecular assay, if necessary, for patient management, may be performed. Negative results do not rule out SARS-CoV-2 infection and should not be used as the sole basis for treatment or patient management decisions, including infection control decisions. Negative results should be considered in the context of a patient?s recent exposures, history and the presence of clinical signs and symptoms consistent with COVID-19. The [employer] COVID-19 Ag Card is a lateral flow immunoassay intended for the qualitative detection of nucleocapsid protein antigen from SARS-CoV-2 in direct nasal swabs from individuals within the first seven days of symptom onset. Testing is limited to laboratories certified under the Clinical Laboratory Improvement Amendments of 1988 (CLIA), 42 U.S.C. ???263a, that meet the requirements to perform moderate, high or waived complexity tests. This test is authorized for use at the Point of Care (POC), i.e., in patient care settings operating under a CLIA Certificate of Waiver, Certificate of Compliance, or Certificate of Accreditation. Performed By: #### 1 0070, 19535 #### [address] PORTABLE CHEST 1 VIEWon PORTABLE CHEST 1 VIEW [facility] Department of Radiology [address] [place] [id number] Patient Name: JEMIMA BRADFORD : 1940 Sex: F Age: Race: White Pt. Location: [facility] Patient Status: E Ordered Date: 01/06/2021 2:25:00 PM Completed Date: 01/06/2021 02:50 PM Requesting Provider: SADNIE MURILLO Attending Provider: LITO SHEFFIELD Report Copy To: Signs & Symptoms: Hemoptysis History: Comments: evaluate for Aspiration Exam: PORTABLE CHEST 1 VIEW PORTABLE CHEST 1 VIEW 01/06/2021 2:50 PM CLINICAL INDICATIONS: Hemoptysis TECHNOLOGIST COMMENTS: Pt complains of shortness of breath. History of open heart surgery. QUESTION FOR THE RADIOLOGIST: evaluate for Aspiration * PROTOCOL: AP(PA) view was obtained. COMPARISON: January 12, 2020. FINDINGS: Blunting of the right costophrenic angle is present consistent with right-sided pleural effusion with linear atelectasis adjacent to the right hemidiaphragm. The heart remains enlarged. The pulmonary vascularity appears prominent. Fixation for the sternum as well as a clip on the left atrial appendage are redemonstrated. IMPRESSION: * Cardiomegaly with prominent pulmonary vascularity and right-sided pleural effusion suggest CHF. * Linear atelectasis over right hemidiaphragm. Electronically signed: Sridevi Lance. Transcribed by: [email or web address], User Resident: Electronically Signed by: SRIDEVI LANCE @ 01/06/2021 03:16 PM Normal [facility] Comment on above: Order Comment: evalu ate for Aspiration ARTERIAL BLOOD GAS W/COOXon 01-04-2021 BASE EXCESS 0 mmol/L Normal -2-3 [facility] Comment on above: Performed By: #### 1 007, 45011 #### [facility] [address] [place] [address], [facility] COHB 1.2 % Normal 0.0-1.5 [facility] Comment on above: Performed By: #### 1 0070, 27882 #### [facility] [address] [place] [address], [place] DELIVERY SYSTEMS OR VENT Normal [facility] Comment on above: Performed By: #### 1 0070, 08990 #### [facility] [address] [place] [address], [place] HCO3 (Bld) [Moles/Vol] 24 mmol/L Normal 21-28 [facility] Comment on above: Performed By: #### 1 69, 66691 #### [facility] [address] [place] [address], [place] METHB 0.8 % Normal 0.0-1.5 [facility] Comment on above: Performed By: #### 1 69, 37946 #### [facility] [address] [place] [address], [place] MODALITY OR VENT Normal [facility] Comment on above: Performed By: #### 1 69, 54632 #### [facility] [address] [place] [address], [place] Oxygen (Bld) [Partial pressure] 327 mm[Hg] Critically high 83-108 [facility] Comment on above: Performed By: #### 1 69, #### [facility] [address] [place] [address], [place] Oxygen saturation in Blood 98.1 % High 94.0-97.0 [facility] Comment on above: Performed By: #### 1 69, #### [facility] [address] [place] [address], [place] PCO2 35 mmHg Normal 35-45 [facility] Comment on above: Performed By: #### 1 69, #### [facility] [address] [place] [address], [place] pH (Bld) 7.44 [pH] Normal 7.35-7.45 [facility] Comment on above: Performed By: #### 1 69, 90668 #### [facility] [address] [place] [address], [place] THB 11.4 g/dL Low 12.0-16.3 [facility] Comment on above: Performed By: #### 1 0070, 21335 #### [facility] [address] [facility]. [address] CALCIUM IONIZED CBGLon 01-04 IONIZED CALCIUM 1.13 mmol/L Normal 1.13-1.32 [facility] Comment on above: Performed By: #### 1 0070, 52351 #### [facility] [address] [facility]. [address] Cardiovascular Lab Reporton 01-04-2021 Cardiovascular Lab Report [facility] #: [id number] Physician: Sharla De Oliveira MD Department of Service Date: 01/04/2021 Medicine Birthdate: 1940 Division of Room #: Cardiology Adult Cardiovascular Services [place] [address] Cardiovascular Laboratory Report ATYPICAL ATRIAL FLUTTER ABLATION PROCEDURE NOTE DATE OF PROCEDURE: 01/04/2021 PERFORMING PHYSICIAN: Dr. Sharla De Oliveira CONSENT: Patient NAME OF THE PROCEDURE: CTI ablation and Comprehensive EP study. INDICATIONS FOR PROCEDURE: 1. Persistent atrial flutter non responsive to pharmacologic therapy. 2. H/o of prior surgical RF-PVI+ Mitral isthmus line ablation+ posterior box isolation+ JACKY ligation. PROCEDURES PERFORMED: 1. Sonosite guided venous access as noted below and images stored in PACS. 2. Comprehensive EP study and catheter ablation for persistent atrial flutter. This includes right atrial recording and pacing, His bundle recording and right ventricular recording and pacing. 3. Intracardiac EP 3D mapping. 4. Intracardiac echocardiogram 5. Left atrial and coronary sinus recording and pacing to assess ablation results. 6. Left heart pressure measurements and LV pacing and recording. 7. Induction of arrhythmia and testing of ablation results using intravenous adenosine infusion. 8. Fluroscopy. FLUOROSCOPY: 9min 59sec/91mGray PROCEDURE NOTE: 80-year-old lady with a history of aortic valve replacement with aortic root surgery as well as CryoMaze surgery with atrial clip placement, who had presented with atrial flutter. Given her symptomatic flutter, decision was made to proceed with ablation. Risks, benefits and alternatives of the procedure were discussed with the patient and family who agreed to proceed. Please refer to my consult note for details of the discussion and of indications The patient was brought to the EP lab and a procedural pause was performed identifying the patient, the procedure. ICE imaging was used to rule out JACKY clot. Atrial flutter with atrial cycle length was noted to be 260 milliseconds and GORDO ruled out any LA thrombus and she had no remnant JACKY stump. Both the groins were then prepared and draped. Ultrasound was used to determine the course and patency of the femoral veins on both sides and they were noted to be patent and the image stored in Merge. After infiltration with 1% lidocaine,4 venous sheaths were placed in the right as noted below and a radial arterial line was placed by Anesthesia team. RFV: 8Fx4 [employer] ThermoCool SF Bi-Directional over SL1/ Vizigo, BRK: Pentaray, ICE catheter, Catheter (EZ Steer). Heparin bolus was given followed by continuous intravenous drip to target ACT around 350. An intracardiac ultrasound catheter was inserted into the right atrium to examine the right atrial anatomy, atrial septum, pulmonary vein anatomy and to monitor for pericardial effusion and guide transseptal access. At baseline, there was no pericardial effusion and no JACKY clot and CS os was mapped using the [employer] DataUND 3D mapping software. Attempt at advancing the CS catheter was difficult despite multiple attempts and would not advance beyond the proximal part. This had revealed a very organized rhythm with a tachycardia cycle length of 260 milliseconds. Thereafter, I performed entrainment, which showed that the post pacing interval from CS1 was 264ms, (proximal CS, which was more so in the right side), right atrial aspect was 305 milliseconds, from the lateral RA it was 440ms. This proved that atrial flutter was left-sided. Hence, I decided to proceed with transseptal puncture. Double transseptal access technique was used to cross to the left side. Following the first transeptal access, which was achieved via puncture of the thinner aspect of the septum using Zena needle over SL-1 sheath. Mean LA pressures were noted to 31/11 ([id number]) at baseline in tachycardia. Second transseptal was again performed, which showed 37/11, mean of 20mmHg. Following this, the pentaray mapping catheter was advanced and mapping was performed meticulously. This showed a circuit that appeared to be mitral anulus dependent. I then exchanged SL1 for Vizigo sheath and an irrigated Thermocool ablation catheter was advanced and the entrainment was attempted from the anterior mitral aspect. However, despite having a good contact and EGM, I could not capture the atrial tissue and so our entrainment to confirm the mitral isthmus flutter was not successful. Given the fact that the CARTO 3 D mapping and propagation revealed mitral annular flutter. The pulmonary veins was isolated with what appeared to be a leak in the isthmus line. Bipolar voltage revealed there was area of scar extending from the anterior LA to the mitral annulus anteriorly. Ablation catheter was a (more content not included)... Normal [facility] POC GLUCOSE LABon 01-04-2021 Glucose [Mass/Vol] 99 mg/dL Normal 70-100 [facility] Comment on above: Performed By: #### 1 69, [id number] #### [facility] [address] [place] [address], [facility] POTASSIUM WHOLE BLOOD CBGLon 01-04-2021 Potassium [Moles/Vol] 3.9 mmol/L Normal 3.4-5.2 [facility] Comment on above: Performed By: #### 1 69, [id number] #### [facility] [address] [place] [address], [facility] RBC'S 2 UNITSon 01-04-2021 CROSSMATCH INTERP 1 COMP Normal [facility] Comment on above: Performed By: #### 8 [id number] #### [facility] [address] [place] [address], [place] CROSSMATCH INTERP 2 COMP Normal [facility] Comment on above: Performed By: #### 8 [id number] #### [facility] [address] [place] [address], [facility] PRODUCT CODE 1 E0336 Normal [facility] Comment on above: Performed By: #### 8 [id number] #### [facility] [address] [place] [address], [place] PRODUCT CODE 2 E0336 Normal [facility] Comment on above: Performed By: #### 8 [id number] #### [facility] [address] [place] [address], [place] PRODUCT STATUS 1 RE Normal [facility] Comment on above: Result Comment: Resu lt changed by IF on 01/08/2021 06:45. The previous value was XM. Performed By: #### 8 [id number] #### [facility] [address] [place] [address], [place] PRODUCT STATUS 2 RE Normal [facility] Comment on above: Result Comment: Resu lt changed by IF on 01/08/2021 06:45. The previous value was XM. Performed By: #### 8 [id number] #### [facility] [address] [place] [address], [place] UNIT ABO 1 A Normal [facility] Comment on above: Performed By: #### 8 [id number] #### [facility] [address] [place] [address], [place] UNIT ABO 2 A Normal [facility] Comment on above: Performed By: #### 8 [id number] #### [facility] [address] [place] [address], [place] UNIT ID 1 [id number] Normal [facility] Comment on above: Performed By: #### 8 [id number] #### [facility] [address] [place] [address], [place] UNIT ID 2 [id number] Normal [facility] Comment on above: Performed By: #### 8 [id number] #### [facility] [address] [place] [address], [place] UNIT RH 1 Negative Normal [facility] Comment on above: Performed By: #### 8 [id number] #### [facility] [address] [place] [address], [facility] UNIT RH 2 Negative Normal [facility] Comment on above: Performed By: #### 8 [id number] #### [facility] [address] [place] [address], [facility] SODIUM WHOLE BLOOD CBGLon Sodium [Moles/Vol] 138.0 mmol/L Normal 136.0-146.0 [facility] Comment on above: Performed By: #### 1 0070, [id number] #### [facility] [address] [place] [address], [facility] TYPE AND CROSSMATCHon 2020 ABO INTERPRETATION A Normal [facility] Comment on above: Performed By: #### 1 0070, [id number] #### [facility] [address] RH INTERPRETATION Negative Normal [facility] Comment on above: Performed By: #### 1 0070, [id number] #### [facility] [address] PROTHROMBIN TIMEon 1 INR Coag (PPP) [Relative time] 1.08 {INR} Normal 0.91-1.16 [facility] Comment on above: Result Comment: ACCC P RECOMMENDED INR FOR WARFARIN THERAPY -------- ------- CONDITION INR PROPHYLAXIS OF VENOUS THROMBOSIS 2-3 (HIGH-RISK SURGERY) TREATMENT OF VENOUS THROMBOSIS 2-3 TREATMENT OF PULMONARY EMBOLISM 2-3 PREVENTION OF SYSTEMIC EMBOLISM: 2-3 ACUTE MYOCARDIAL INFARCTION TISSUE HEART VALVES VALVULAR HEART DISEASE ATRIAL FIBRILLATION RECURRENT SYSTEMIC EMBOLISM MECHANICAL HEART VALVE 2.5-3.5 FROM: ORAL ANTICOAGULANTS. MECHANISM OF ACTION, CLINICAL EFFECTIVENESS, AND OPTIMAL THERAPEUTIC RANGE. CHEST 1995;108:231S-246S. Performed By: #### 1 0070, [id number] #### [facility] [address] [place] [address], [facility] PT Coag (PPP) [Time] 14.0 s Normal 12.3-14.8 [facility] Comment on above: Result Comment: ALL RESULTS MUST BE INTERPRETED WITH RESPECT TO BLOOD DRAWING ARTIFACT OR DILUTION ERROR OF ANTICOAGULANT AT THE TIME OF SAMPLING. Performed By: #### 1 69, [id number] #### [facility] [address] [facility] [place] [address], [facility] T4, FreeOrdered By: Jasmyne ruiz on 12-13-2020 Thyroxine, Free 1.59 ng/dL 0.93 - 1.70 ng/dL [employer] Phone: [employer] Phone: TSH with ReflexOrdered By: Brittany Casillas on 12-13-2020 Interpretation and review of laboratory results Abnormal [employer] Phone: TSH Qn 5.19 m[IU]/L High [employer] Phone: [employer] Phone: XR ANKLE LEFT (MIN 3 VIEWS)O rdered By: Jasmyne Csaillas on 11-14-2020 Prior ORIF of distal tibia and fibula. No acute osseous abnormality. Mild ankle degenerative changes are present. No prominent focal soft tissue swelling is seen. [facility] Phone: EXAM: XR ANKLE LEFT (MIN 3 VIEWS) HISTORY: 2018 left ankle fracture with screws and plate present, pain with walking. COMPARISON: Left ankle 08/05/2018 TECHNIQUE: AP, lateral, and oblique views of the left ankle FINDINGS: No acute fracture or dislocation is seen. Prior fixation with distal fibular metallic segmented plate and multiple screws and 2 medial malleolar obliquely oriented screws is again seen. These appear stable and intact. There is mild talotibial joint space narrowing and posterior spurring consistent mild degenerative change. Broad-based small heel spur seen at the plantar fascial attachment and Achilles insertion calcifications are present. Mild posterior tibial artery vascular calcification is present. No prominent focal soft tissue swelling is seen. [facility] Phone: Shayan, [employer] Incoming Radiant Results From [employer] - 11/14/2020 1:42 PM EDT EXAM: XR ANKLE LEFT (MIN 3 VIEWS) HISTORY: 2018 left ankle fracture with screws and plate present, pain with walking. COMPARISON: Left ankle 08/05/2018 TECHNIQUE: AP, lateral, and oblique views of the left ankle FINDINGS: No acute fracture or dislocation is seen. Prior fixation with distal fibular metallic segmented plate and multiple screws and 2 medial malleolar obliquely oriented screws is again seen. These appear stable and intact. There is mild talotibial joint space narrowing and posterior spurring consistent mild degenerative change. Broad-based small heel spur seen at the plantar fascial attachment and Achilles insertion calcifications are present. Mild posterior tibial artery vascular calcification is present. No prominent focal soft tissue swelling is seen. IMPRESSION: Prior ORIF of distal tibia and fibula. No acute osseous abnormality. Mild ankle degenerative changes are present. No prominent focal soft tissue swelling is seen. [employer] Phone: [employer] Phone: Basic Metabolic Panelon 02-2 Anion gap [Moles/Vol] 9 mmol/L 9 - 17 mmol/L [employer] Phone: Bun/Cre Ratio 21 High [employer] Phone: Calcium [Mass/Vol] 9.4 mg/dL 8.6 - 10. 4 mg/dL [employer] Phone: Chloride [Moles/Vol] 100 mmol/L 98 - 10 7 mmol/L [employer] Phone: CO2 [Moles/Vol] 29 mmol/L 20 - 31 mmol/L [employer] Phone: Creatinine [Mass/Vol] 1.12 mg/dL High 0.5 - 0.9 mg/dL [employer] Phone: GFR 57 mL/min Low >60 [employer] Phone: GFR Non- 47 mL/min Low >60 [facility] Phone: Glucose [Mass/Vol] 130 mg/dL High 70 - 99 mg/dL [employer] Phone: Interpretation and review of laboratory results Abnormal [employer] Phone: Potassium [Moles/Vol] 4.4 mmol/L 3.7 - 5.3 mmol/L [employer] Phone: Sodium [Moles/Vol] 138 mmol/L 135 - 144 mmol/L [employer] Phone: Urea nitrogen [Mass/Vol] 24 mg/dL High 8 - 23 mg/dL [facility] Phone: Creatinine, Random Urineon 0 08-22-2020 Creatinine, Ur 50.7 mg/dL 28 - 217 mg/dL [employer] Phone: Metabolic Panelon 08-22-2020 GFR/1.73 sq M predicted among non-blacks MDRD (S/P/Bld) [Vol rate/Area] [employer] Phone: Comment on above: Stage 1: Some kidney damage normal GFR Stage 2: Mild kidney damage GFR 60-89 Stage 3: Moderate kidney damage GFR 30-59 Stage 4: Severe kidney damage GFR 15-29 Stage 5: Severe kidney damage GFR <15 ESRD - chronic treatment by dialysis or transplant Average GFR for 70 o r more years old: 75 mL/min/1.73sq m Chronic Kidney Disease: <60 mL/min/1.73sq m Kidney failure: <15 mL/min/1.73sq m eGFR calculated using average adult body mass. Additional eGFR calculator available at: http://www.OmniStrat/multiple_crcl_2012.htm PTH, INTACT WITH IONIZED MARIA FERNANDA CIUMon 08-22-2020 Calcium [Mass/Vol] 1.22 mmol/L 1.13 - 1. 33 mmol/L [employer] Phone: Interpretation and review of laboratory results Abnormal [employer] Phone: Pth Intact 73.01 pg/mL High 15 - 65 pg/mL [employer] Phone: Comment on above: SAMPLES FROM PATIENT S ROUTINELY RECEIVING HIGH DOSE BIOTIN THERAPY MAY SHOW FALSELY DEPRESSED RESULTS. ADDITIONAL INFORMATION MAY BE REQUIRED FOR DIAGNOSIS. Phosphoruson 08-22-2020 Phosphate [Mass/Vol] 3.1 mg/dL 2.6 - 4 .5 mg/dL [employer] Phone: Protein, urine, randomon Protein (U) [Mass/Vol] mg/dL mg/dL [employer] Phone: Comment on above: No normal range esta blished. Otheron 07-25-2020 Normal postmenopausa l pelvic ultrasound. [facility] [place] EXAM: US PELVIS COMP LETE HISTORY: 80-year-old female pelvic adenopathy. Normal Pap May 2020. Breast carcinoma. COMPARISON: None. TECHNIQUE: Transabdominal and transvaginal scan pelvis FINDINGS: Postmenopausal normal uterus 4.7 cm length by 1.8 x 2.9 cm. The endometrium is normal 2 mm. Right ovary: 3.4 x 2.0 x 2.3 cm. Left ovary: 2.0 x 1.7 x 1.5 cm. No abnormal adenopathy. [facility] [place] Shayan, Mhpn Incoming Radiant Results From [employer] - 07/26/2020 8:13 AM EST EXAM: US PELVIS COMPLETE HISTORY: 80-year-old female pelvic adenopathy. Normal Pap May 2020. Breast carcinoma. COMPARISON: None. TECHNIQUE: Transabdominal and transvaginal scan pelvis FINDINGS: Postmenopausal normal uterus 4.7 cm length by 1.8 x 2.9 cm. The endometrium is normal 2 mm. Right ovary: 3.4 x 2.0 x 2.3 cm. Left ovary: 2.0 x 1.7 x 1.5 cm. No abnormal adenopathy. IMPRESSION: Normal postmenopausal pelvic ultrasound. [place] COVID-19 Positive/Negativeon 06-17-2020 COVID-19 Positive/Negative Negative Negative [facility] Comment on above: Testing for SARS-CoV -2 by RT-PCRThis test was developed and its performance characteristics determined by [employer] and validated at the [facility]. This test has not been FDA cleared or approved. This test has been authorized by FDA under an Emergency Use Authorization (EUA). This test has been validated in accordance with the FDA's Guidance Document (Policy for Diagnostics Testing in Laboratories Certified to Perform High Complexity Testing under CLIA prior to Emergency Use Authorization for Coronavirus Disease-2019 during the Public Health Emergency) issued on October 01, 2019. This test is only authorized for the duration of time the declaration that circumstances exist justifying the authorization of the emergency use of in vitro diagnostic tests for detection of SARS-CoV-2 virus and/or diagnosis of COVID-19 infection under section 564(b)(1) of the Act, 21 U.S.C. 360bbb-3(b)(1), unless the authorization is terminated or revoked sooner. Otheron 06-17-2020 Coronavirus 2019 PCR Interp N/A [facility] Basic Metabolic Panelon 05-31 Anion gap [Moles/Vol] 11 mmol/L 9 - 17 mmol/L [place] Bun/Cre Ratio 23 [place] Calcium [Mass/Vol] 9.7 mg/dL 8.6 - 10. 4 mg/dL [place] Chloride [Moles/Vol] 103 mmol/L 98 - 10 7 mmol/L [place] CO2 [Moles/Vol] 29 mmol/L 20 - 31 mmol/L [place] Creatinine [Mass/Vol] 1.2 mg/dL High 0.5 - 0.9 mg/dL [place] GFR 53 mL/min Low >60 [place] GFR Non- 43 mL/min Low >60 [place] Glucose [Mass/Vol] 113 mg/dL High 70 - 99 mg/dL [place] Interpretation and review of laboratory results Abnormal [place] Potassium [Moles/Vol] 4.2 mmol/L 3.7 - 5.3 mmol/L [place] Sodium [Moles/Vol] 143 mmol/L 135 - 144 mmol/L [place] Urea nitrogen [Mass/Vol] 27 mg/dL High 8 - 23 mg/dL [place] C3 Complementon 06-13-2020 Complement C3 162 mg/dL 90 - 180 mg/dL [place] C4 Complementon 06-13-2020 Complement C4 24 mg/dL 10 - 40 mg/dL [place] CBC Auto Differentialon 05-31 Basophils (Bld) [#/Vol] 0.05 10*3/uL [place] Basophils/100 WBC (Bld) 1 % 0 - 2 % [place] Differential Type NOT REPORTED [place] Eosinophils (Bld) [#/Vol] 0.15 10*3/uL [place] Eosinophils/100 WBC (Bld) 2 % 1 - 4 % [place] Erythrocyte distribution width (RBC) [Ratio] 15.8 % High 11.8 - 14.4 % [place] Hematocrit (Bld) [Volume fraction] 40.9 % 36.3 - 47.1 % [place] Hemoglobin (Bld) [Mass/Vol] 12.6 g/dL 11.9 - 15.1 g/dL [place] Immature granulocytes (Bld) [#/Vol] 0.09 10*3/uL [place] Immature granulocytes (Bld) [#/Vol] 1 % High 0 [place] Interpretation and review of laboratory results Abnormal [place] Lymphocytes (Bld) [#/Vol] 1.39 10*3/uL [place] Lymphocytes/100 WBC (Bld) 17 % Low 24 - 43 % [place] MCH (RBC) [Entitic mass] 27.9 pg 25.2 - 33.5 pg [place] MCHC (RBC) [Mass/Vol] 30.8 g/dL 28.4 - 34.8 g/dL [place] MCV (RBC) [Entitic vol] 90.5 fL 82.6 - 102.9 fL [place] Monocytes (Bld) [#/Vol] 0.67 10*3/uL [place] Monocytes/100 WBC (Bld) 8 % 3 - 12 % [place] Platelet mean volume (Bld) [Entitic vol] 11.3 fL 8.1 - 13.5 fL [place] Platelets (Bld) [#/Vol] 212 10*3/uL [place] Platelets (Bld) [#/Vol] NOT REPORTED [place] RBC (Bld) [#/Vol] 4.52 10*6/uL 3.95 - 5.1 1 m/uL [place] RBC morphology finding Nom (Bld) NOT REPORTED [place] Segmented neutrophils/100 WBC (Bld) 71 % High 36 - 65 % [place] Segs Absolute 5.75 [place] WBC (Bld) [#/Vol] 8.1 10*3/uL [place] WBC (Bld) [#/Vol] 0.0 10*3/uL 0.0 per 10 0 WBC [place] WBC Morphology NOT REPORTED [place] Creatinine, Random Urineon 1 08-14-2019 Creatinine, Ur 14.5 mg/dL Low 28 - 217 mg/dL [place] Interpretation and review of laboratory results Abnormal [place] Panacea/Lambda Free Lt Chains, Serum Quanton 06-13-2020 Free Panacea/Lambda Ratio 0.99 [place] Panacea Free Light Chains QNT 1.65 mg/dL 0.37 - 1.94 mg/dL [place] Lambda Free Light Chains QNT 1.66 mg/dL 0.57 - 2.63 mg/dL [place] Metabolic Panelon 06-13-2020 GFR/1.73 sq M predicted among non-blacks MDRD (S/P/Bld) [Vol rate/Area] [place] Comment on above: Stage 1: Some kidney damage normal GFR Stage 2: Mild kidney damage GFR 60-89 Stage 3: Moderate kidney damage GFR 30-59 Stage 4: Severe kidney damage GFR 15-29 Stage 5: Severe kidney damage GFR <15 ESRD - chronic treatment by dialysis or transplant Average GFR for 70 o r more years old: 75 mL/min/1.73sq m Chronic Kidney Disease: <60 mL/min/1.73sq m Kidney failure: <15 mL/min/1.73sq m eGFR calculated using average adult body mass. Additional eGFR calculator available at: http://www.OmniStrat/SimpleDeal_crcl_2012.htm Protein, urine, randomon Protein (U) [Mass/Vol] mg/dL mg/dL [place] Comment on above: No normal range esta blished. Sodium, urine, randomon 05-31 Sodium (U) [Moles/Vol] 78 mmol/L [place] Comment on above: No normal range esta blished. Urinalysison 06-13-2020 Bilirubin Urine Negative NEGATIVE [place] Color, UA YELLOW YELLOW [place] Glucose, Ur Negative NEGATIVE [place] Ketones Ql (U) Negative NEGATIVE [place] Leukocyte esterase Test strip Ql (U) Negative NEGATIVE [place] Nitrite, Urine Negative NEGATIVE [place] pH, UA 6.5 [place] Protein (U) [Mass/Vol] Negative NEGATIVE [place] Specific [place], UA 1.010 [place] Turbidity UA CLEAR CLEAR [place] Urinalysis Comments NOT REPORTED [place] Urine Hgb Negative NEGATIVE [place] Urobilinogen, Urine Normal Normal [place] Erythrocyte sedimentation ra te by Photometric methodon 06-07-2020 ESR Photometric method (Bld) [Velocity] 22 mm/hr 0-29 [facility] Serum or plasma C reactive p rotein measurement (mass/volume)on 06-07-2020 CRP [Mass/Vol] 0.6 mg/dL 0.0-1.0 [facility] Otheron 05-05-2020 BI-RADS 4 - Findings demonstrate a suspicious abnormality. Biopsy is indicated. OVERALL ASSESSMENT- SUSPICIOUS A letter of notification will be sent to the patient regarding the results. The findings were discussed with the patient. Due to the depth of this lesion against the chest wall, I would recommend an MRI be performed prior to attempting a biopsy. [place] EXAM: US BREAST COMP LETE RIGHT, KAYLAH CHRISSY DIGITAL DIAGNOSTIC UNILATERAL RIGHT HISTORY: 80-year-old female with breast pain. COMPARISON: Right breast ultrasound 11/26/2019, right mammogram 11/26/2019, bilateral mammogram 05/08/2019, 05/06/2018, 05/18/2016. TECHNIQUE: Right breast ultrasound, right digital diagnostic mammogram with CAD, 2-D and 3-D tomographic images. FINDINGS: The right breast ultrasound was negative and failed to demonstrate any abnormality responsible for right nipple or anterior breast pain and it also did not identify any lesion in the deep breast against the chest wall. The right axilla was normal. The mammographic images, which included 2-D and 3-D images +90 degree mediolateral view demonstrates a developing asymmetry in the deep one-third right breast, 6 mm diameter, against the chest wall which has never been identifiable on prior mammograms and for which an MRI is recommended for further evaluation. The remainder of the right breast shows heterogeneously dense glandular tissue which could obscure small masses. Benign atherosclerotic vascular calcifications and scattered benign calcifications are unchanged. [place] Shayan, Mhpn Incoming Radiant Results From [employer] - 05/06/2020 8:49 AM EST EXAM: US BREAST COMPLETE RIGHT, KAYLAH CHRISSY DIGITAL DIAGNOSTIC UNILATERAL RIGHT HISTORY: 80-year-old female with breast pain. COMPARISON: Right breast ultrasound 11/26/2019, right mammogram 11/26/2019, bilateral mammogram 05/08/2019, 05/06/2018, 05/18/2016. TECHNIQUE: Right breast ultrasound, right digital diagnostic mammogram with CAD, 2-D and 3-D tomographic images. FINDINGS: The right breast ultrasound was negative and failed to demonstrate any abnormality responsible for right nipple or anterior breast pain and it also did not identify any lesion in the deep breast against the chest wall. The right axilla was normal. The mammographic images, which included 2-D and 3-D images +90 degree mediolateral view demonstrates a developing asymmetry in the deep one-third right breast, 6 mm diameter, against the chest wall which has never been identifiable on prior mammograms and for which an MRI is recommended for further evaluation. The remainder of the right breast shows heterogeneously dense glandular tissue which could obscure small masses. Benign atherosclerotic vascular calcifications and scattered benign calcifications are unchanged. IMPRESSION: BI-RADS 4 - Findings demonstrate a suspicious abnormality. Biopsy is indicated. OVERALL ASSESSMENT- SUSPICIOUS A letter of notification will be sent to the patient regarding the results. The findings were discussed with the patient. Due to the depth of this lesion against the chest wall, I would recommend an MRI be performed prior to attempting a biopsy. 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 New small benign simple cyst in the superior pole on the right measures 1.4 cm in diameter. 34 mL postvoid residual. [place] EXAM: US RENAL COMPL ETE HISTORY: 80-year-old female with abnormal renal function test. COMPARISON: CT abdomen and pelvis 05/08/2017, renal ultrasound 06/13/2016. TECHNIQUE: Renal ultrasound. 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 A new small 1.4 cm cyst is present in the superior pole cortex on the right. Right kidney: 9.8 x 4.7 x 5.6 cm with cortical thickness 8 mm. Left kidney: 9.9 x 4.2 x 5.7 cm. Scattered punctate echo reflectors are present in the left kidney without shadowing, unlikely to represent stones. No hydronephrosis. Both ureteral jets are identified at the bladder. The bladder volume is 309 mL. Postvoid residual 35 mL. [place] Shayan, Mhpn Incoming Radiant Results From [facility] - 05/06/2020 8:49 AM EST EXAM: US RENAL COMPLETE HISTORY: 80-year-old female with abnormal renal function test. COMPARISON: CT abdomen and pelvis 05/08/2017, renal ultrasound 06/13/2016. TECHNIQUE: Renal ultrasound. 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 A new small 1.4 cm cyst is present in the superior pole cortex on the right. Right kidney: 9.8 x 4.7 x 5.6 cm with cortical thickness 8 mm. Left kidney: 9.9 x 4.2 x 5.7 cm. Scattered punctate echo reflectors are present in the left kidney without shadowing, unlikely to represent stones. No hydronephrosis. Both ureteral jets are identified at the bladder. The bladder volume is 309 mL. Postvoid residual 35 mL. 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 New small benign simple cyst in the superior pole on the right measures 1.4 cm in diameter. 34 mL postvoid residual. [facility], [place] Basic Metabolic Panelon 06-2 0-2020 Anion gap [Moles/Vol] 14 mmol/L Normal 9-15 [facility] Comment on above: Order Comment: CALL doctor [id number] tel. [phone], FAX [phone] Performed By: #### B MP #### [facility] [address] [facility] [address] Calcium [Mass/Vol] 9.2 mg/dL Normal 8.5-9.9 [facility] Comment on above: Order Comment: CALL doctor [id number] tel. [phone], FAX [phone] Performed By: #### B MP #### [facility] [address] [facility] [address] Chloride [Moles/Vol] 100 mmol/L Normal 95-107 [facility] Comment on above: Order Comment: CALL doctor [id number] tel. [phone], FAX [phone] Performed By: #### B MP #### [facility] [address] [facility] [address] CO2 [Moles/Vol] 23 mmol/L Normal 20-31 [facility] Comment on above: Order Comment: CALL doctor [id number] tel. [phone], FAX [phone] Performed By: #### B MP #### [facility] [address] [place] [address] Creatinine [Mass/Vol] 0.87 mg/dL Normal 0.50-0.90 [facility] Comment on above: Order Comment: CALL doctor [id number] tel. [phone], FAX [phone] Performed By: #### B MP #### [facility] [address] [place] [address] GFR/1.73 sq M predicted among blacks MDRD (S/P/Bld) [Vol rate/Area] mL/min/{1.73_m2} Normal >60 [facility] Comment on above: Order Comment: CALL doctor [id number] tel. [phone], FAX [phone] Result Comment: >60 mL/min/1.73m2 EGFR, calc. for ages 18 and older using the MDRD formula (not corrected for weight), is valid for stable renal function. Performed By: #### B MP #### [facility] [address] [place] [address] GFR/1.73 sq M.predicted MDRD (S/P/Bld) [Vol rate/Area] mL/min/{1.73_m2} Normal >60 [facility] Comment on above: Order Comment: CALL doctor [id number] tel. [phone], FAX [phone] Result Comment: >60 mL/min/1.73m2 EGFR, calc. for ages 18 and older using the MDRD formula (not corrected for weight), is valid for stable renal function. Performed By: #### B MP #### [facility] [address] [place] [address] Glucose [Mass/Vol] 161 mg/dL Critically high 70-99 [facility] Comment on above: Order Comment: CALL doctor [id number] tel. [phone], FAX [phone] Performed By: #### B MP #### [facility] [address] [place] [address] Potassium [Moles/Vol] 3.1 mmol/L Low 3.4-4.9 [facility] Comment on above: Order Comment: CALL doctor [id number] tel. [phone], FAX [phone] Performed By: #### B MP #### [facility] [address] [place] [address] Sodium [Moles/Vol] 137 mmol/L Normal 135-144 [facility] Comment on above: Order Comment: CALL doctor [id number] tel. [phone], FAX [phone] Performed By: #### B MP #### [facility] [address] [place] [address] Urea nitrogen [Mass/Vol] 19 mg/dL Normal 8-23 [facility] Comment on above: Order Comment: CALL doctor [id number] tel. [phone], FAX [phone] Performed By: #### B MP #### [facility] [address] [place] [address] CBC With Platelet No Differe ntialon 12-19-2019 Erythrocyte distribution width (RBC) [Ratio] 17.2 % Critically high 11.5-14.5 [facility] Comment on above: Order Comment: CALL doctor [id number] tel. [phone], FAX [phone] Performed By: #### C BCND #### [facility] [address] [place] [address] Hematocrit (Bld) [Volume fraction] 32.6 % Low 37.0-47.0 [facility] Comment on above: Order Comment: CALL doctor [id number] tel. [phone], FAX [phone] Performed By: #### C BCND #### [facility] [address] [place] [address] Hemoglobin (Bld) [Mass/Vol] 10.6 g/dL Low 12.0-16.0 [facility] Comment on above: Order Comment: CALL doctor [id number] tel. [phone], FAX [phone] Performed By: #### C BCND #### [facility] [address] [place] [address] MCH (RBC) [Entitic mass] 28.7 pg Normal 27.0-31.3 [facility] Comment on above: Order Comment: CALL doctor [id number] tel. [phone], FAX [phone] Performed By: #### C BCND #### [facility] [address] [place] [address] MCHC (RBC) [Mass/Vol] 32.5 % Low 33.0-37.0 [facility] Comment on above: Order Comment: CALL doctor [id number] tel. [phone], FAX [phone] Performed By: #### C BCND #### [facility] [address] [place] [address] MCV (RBC) [Entitic vol] 88.2 fL Normal 82.0-100.0 [facility] Comment on above: Order Comment: CALL doctor [id number] tel. [phone], FAX [phone] Performed By: #### C BCND #### [facility] [address] [place] [address] Platelets (Bld) [#/Vol] 462 10*3/uL Critically high 130-400 [facility] Comment on above: Order Comment: CALL doctor [id number] tel. [phone], FAX [phone] Performed By: #### C BCND #### [facility] [address] [place] [address] RBC (Bld) [#/Vol] 3.70 10*6/uL Low 4.20-5.40 [facility] Comment on above: Order Comment: CALL doctor [id number] tel. [phone], FAX [phone] Performed By: #### C BCND #### [facility] [address] [place] [address] WBC (Bld) [#/Vol] 7.8 10*3/uL Normal 4.8-10.8 [facility] Comment on above: Order Comment: CALL doctor [id number] tel. [phone], FAX [phone] Performed By: #### C BCND #### [facility] [address] [place] [address] Liver Panelon 12-19-2019 Albumin [Mass/Vol] 3.1 g/dL Low 3.5-4.6 [facility] Comment on above: Order Comment: CALL doctor [id number] tel. [phone], FAX [phone] Performed By: #### L IVER #### [facility] [address] [place] [address] ALP [Catalytic activity/Vol] 82 U/L Normal 40-130 [facility] Comment on above: Order Comment: CALL doctor [id number] tel. [phone], FAX [phone] Performed By: #### L IVER #### [facility] [address] [place] [address] ALT [Catalytic activity/Vol] 17 U/L Normal 0-33 [facility] Comment on above: Order Comment: CALL doctor [id number] tel. [phone], FAX [phone] Performed By: #### L IVER #### [facility] [address] [place] [address] AST [Catalytic activity/Vol] 20 U/L Normal 0-35 [facility] Comment on above: Order Comment: CALL doctor [id number] tel. [phone], FAX [phone] Performed By: #### L IVER #### [facility] [address] [place] [address] Bilirubin [Mass/Vol] 0.4 mg/dL Normal 0.2-0.7 [facility] Comment on above: Order Comment: CALL doctor [id number] tel. [phone], FAX [phone] Performed By: #### L IVER #### [facility] [address] [place] [address] Bilirubin Indirect see below Normal 0.0-0.6 [facility] Comment on above: Order Comment: CALL doctor [id number] tel. [phone], FAX [phone] Result Comment: Natalia rect Bilirubin cannot be calculated since Total Bilirubin and/or Direct Bilirubin is below measurable range. Performed By: #### L IVER #### [facility] [address] [place] [address] Bilirubin.direct [Mass/Vol] mg/dL Normal 0.0-0.4 [facility] Comment on above: Order Comment: CALL doctor L9632 tel. [phone], FAX [phone] Performed By: #### L IVER #### [facility] [address] [facility] [place] [address] Protein [Mass/Vol] 6.2 g/dL Low 6.3-8.0 [facility] Comment on above: Order Comment: CALL doctor [id number] tel. [phone], FAX [phone] Performed By: #### L IVER #### [facility] [address] [facility] [address] Otheron 11-26-2019 1. Tiny nonpalpable cyst in the 3-o'clock right breast does not require imaging follow up. This is not clinically palpable. 2. No mammographic evidence for malignancy in the right breast. BI-RADS 2 - Benign, no evidence of malignancy. Recommendation for screening mammography in May 2020 OVERALL ASSESSMENT- BENIGN A letter of notification will be sent to the patient regarding the results. [facility] [place], [place] EXAMINATION: US KASH ST COMPLETE RIGHT, KAYLAH DIGITAL DIAGNOSTIC W OR WO CAD RIGHT CLINICAL DATA: Nipple pain. No discharge or mass. TECHNIQUE: 2-D mammography of the right breast. Limited physical examination right breast and targeted right breast ultrasound. FINDINGS: The breast tissue is heterogeneously dense. There is no evidence for mass, microcalcifications, skin thickening, nipple retraction, or enlarged lymph nodes. On physical examination, there is no redness or retraction of the nipple. No palpable mass in the subareolar breast. The ultrasound demonstrates normal ducts and surrounding fibrous tissue. A small cyst is identified in the 3-o'clock retroareolar right breast. This is not clinically palpable. No solid or shadowing masses. The right axilla is unremarkable. [place] Shayan, Mhpn Incoming Radiant Results From [facility] - 11/26/2019 10:52 AM EDT EXAMINATION: US BREAST COMPLETE RIGHT, KAYLAH DIGITAL DIAGNOSTIC W OR WO CAD RIGHT CLINICAL DATA: Nipple pain. No discharge or mass. TECHNIQUE: 2-D mammography of the right breast. Limited physical examination right breast and targeted right breast ultrasound. FINDINGS: The breast tissue is heterogeneously dense. There is no evidence for mass, microcalcifications, skin thickening, nipple retraction, or enlarged lymph nodes. On physical examination, there is no redness or retraction of the nipple. No palpable mass in the subareolar breast. The ultrasound demonstrates normal ducts and surrounding fibrous tissue. A small cyst is identified in the 3-o'clock retroareolar right breast. This is not clinically palpable. No solid or shadowing masses. The right axilla is unremarkable. IMPRESSION: 1. Tiny nonpalpable cyst in the 3-o'clock right breast does not require imaging follow up. This is not clinically palpable. 2. No mammographic evidence for malignancy in the right breast. BI-RADS 2 - Benign, no evidence of malignancy. Recommendation for screening mammography in May 2020 OVERALL ASSESSMENT- BENIGN A letter of notification will be sent to the patient regarding the results. [place] Basic Metabolic Panelon 10-29 Anion gap [Moles/Vol] 8 mmol/L Low 9 - 17 mmol/L [place] Bun/Cre Ratio 19 [place] Calcium [Mass/Vol] 9.9 mg/dL 8.6 - 10. 4 mg/dL [place] Chloride [Moles/Vol] 107 mmol/L 98 - 10 7 mmol/L [place] CO2 [Moles/Vol] 28 mmol/L 20 - 31 mmol/L [place] Creatinine [Mass/Vol] 0.99 mg/dL High 0.5 - 0.9 mg/dL [place] GFR >60 >60 mL/min [place] GFR Non- 54 mL/min Low >60 [place] GFR/1.73 sq M predicted among non-blacks MDRD (S/P/Bld) [Vol rate/Area] NOT REPORTED [place] GFR/1.73 sq M predicted among non-blacks MDRD (S/P/Bld) [Vol rate/Area] [place] Comment on above: Average GFR for 70 o r more years old: 75 mL/min/1.73sq m Chronic Kidney Disease: <60 mL/min/1.73sq m Kidney failure: <15 mL/min/1.73sq m eGFR calculated using average adult body mass. Additional eGFR calculator available at: http://www.[employer]/multiple_crcl_2012.htm Glucose [Mass/Vol] 112 mg/dL High 70 - 99 mg/dL [place] Interpretation and review of laboratory results Abnormal [place] Potassium [Moles/Vol] 4.0 mmol/L 3.7 - 5.3 mmol/L [place] Sodium [Moles/Vol] 143 mmol/L 135 - 144 mmol/L [place] Urea nitrogen [Mass/Vol] 19 mg/dL 8 - 23 mg/dL [place] CBCon 11-13-2019 Erythrocyte distribution width (RBC) [Ratio] 16.4 % High 12.1 - 15.2 % [place] Hematocrit (Bld) [Volume fraction] 41.8 % 36 - 46 % [place] Hemoglobin (Bld) [Mass/Vol] 14.1 g/dL 12 - 16 g/dL [place] Interpretation and review of laboratory results Abnormal [place] MCH (RBC) [Entitic mass] 29.2 pg 26 - 34 pg [place] MCHC (RBC) [Mass/Vol] 33.7 g/dL 31 - 3 7 g/dL [place] MCV (RBC) [Entitic vol] 86.7 fL 80 - 100 fL [place] Platelet mean volume (Bld) [Entitic vol] NOT REPORTED 6 - 12 fL [place], [place] Platelets (Bld) [#/Vol] 193 10*3/uL [place] RBC (Bld) [#/Vol] 4.82 10*6/uL 4 - 5.2 m/uL [place] WBC (Bld) [#/Vol] NOT REPORTED per 100 WBC [place] WBC (Bld) [#/Vol] 6.3 10*3/uL [place] COVID-19on 11-13-2019 SARS-CoV-2 Not Detected Not Detected [place] Comment on above: The specimen is NEGATIVE for SARS-CoV-2, the novel coronavirus associated with COVID-19. A negative result does not rule out COVID-19. This test has been authorized by the FDA under an Emergency Use Authorization (EUA) for use by authorized laboratories. Fact sheet for Healthcare Providers: https://www.fda.gov/media/091166/download Fact sheet for Patients: https://www.fda.gov/media/948034/download METHODOLOGY: RT-PCR SARS-CoV-2, PCR [place], [place] SARS-CoV-2, [place], [place] Source .NASOPHARYNGEAL SWAB [place] C-Reactive Proteinon 020 CRP [Mass/Vol] 2.3 mg/L 0 - 5 mg/L [place] Rheumatoid Factoron 08-25-19 20 Rheumatoid Factor <10 <14 IU/mL [place], [place] Sedimentation Rateon 020 Sed Rate 10 mm 0 - 20 mm [place], [place] Vitamin D 25 HydroxyOrdered By: Jasmyne Casillas on 06-09-2019 Vit D, 25-Hydroxy 80.4 ng/mL 30 - 100 ng/mL [facility] Work Phone: Comment on above: Reference Range: Vitamin D status Range Deficiency <20 ng/mL Mild Deficiency 20-30 ng/mL Sufficiency 30-100 ng/mL Toxicity >100 ng/mL C-Reactive ProteinOrdered By : Jasmyne Casillas on 06-08-2019 CRP [Mass/Vol] 7.2 mg/L High 0 - 5 mg/L [employer] [facility] Work Phone: Interpretation and review of laboratory results Abnormal [facility] Work Phone: CBC Auto DifferentialOrdered By: Jasmyne Casillas on 06-08-2019 Absolute Eos # 0.20 [employer] [facility] Work Phone: Absolute Immature Granulocyte NOT REPORTED [facility] Work Phone: Absolute Lymph # 1.80 [employer] [facility] Work Phone: Absolute Dundy # 0.60 [employer] [facility] Work Phone: Basophils (Bld) [#/Vol] 0.10 10*3/uL [employer] Work Phone: Basophils/100 WBC (Bld) 1 % 0 - 2 % [employer] Work Phone: Differential Type YES [facility] Work Phone: Eosinophils/100 WBC (Bld) 3 % 0 - 5 % [employer] Work Phone: Erythrocyte distribution width (RBC) [Ratio] 15.2 % 12.1 - 15.2 % [employer] Work Phone: Hematocrit (Bld) [Volume fraction] 40.4 % 36 - 46 % [employer] Work Phone: Hemoglobin (Bld) [Mass/Vol] 13.6 g/dL 12 - 16 g/dL [employer] Work Phone: Immature Granulocytes NOT REPORTED 0 % M [facility] Work Phone: Interpretation and review of laboratory results Abnormal [employer] Work Phone: Lymphocytes/100 WBC (Bld) 30 % 15 - 40 % [employer] Work Phone: MCH (RBC) [Entitic mass] 28.9 pg 26 - 34 pg [employer] Work Phone: MCHC (RBC) [Mass/Vol] 33.7 g/dL 31 - 3 7 g/dL [employer] Work Phone: MCV (RBC) [Entitic vol] 85.7 fL 80 - 100 fL [employer] Work Phone: Monocytes/100 WBC (Bld) 10 % High 4 - 8 % [employer] Work Phone: MPV NOT REPORTED 6 - 12 fL [employer] Work Phone: NRBC Automated NOT REPORTED per 100 WBC [facility] Work Phone: Platelet Estimate NOT REPORTED [employer] Work Phone: Platelets (Bld) [#/Vol] 236 10*3/uL [employer] Work Phone: RBC (Bld) [#/Vol] 4.72 10*6/uL 4 - 5.2 m/uL [employer] Work Phone: RBC morphology finding Nom (Bld) NOT REPORTED [employer] Work Phone: Segmented neutrophils/100 WBC (Bld) 56 % 47 - 75 % [employer] Work Phone: Segs Absolute 3.50 [facility] Work Phone: WBC (Bld) [#/Vol] 6.2 10*3/uL [employer] Work Phone: WBC Morphology NOT REPORTED [employer] [facility] Work Phone: CKOrdered By: Jasmyne Casillas on 06-08-2019 CK [Catalytic activity/Vol] 98 U/L 26 - 192 U/L [employer] Work Phone: Comprehensive Metabolic Pane lOrdered By: Jasmyne Casillas on 06-08-2019 Albumin [Mass/Vol] 4.3 g/dL 3.5 - 5.2 g/dL [employer] Work Phone: Albumin/Globulin Ratio NOT REPORTED [employer] Phone: ALP [Catalytic activity/Vol] 97 U/L 35 - 104 U/L [employer] Phone: ALT [Catalytic activity/Vol] 22 U/L 5 - 33 U/L [employer] Phone: Anion gap [Moles/Vol] 11 mmol/L 9 - 17 mmol/L [employer] Phone: AST [Catalytic activity/Vol] 24 U/L <32 [employer] Phone: Bilirubin [Mass/Vol] 0.47 mg/dL 0.3 - 1 .2 mg/dL [employer] Phone: Bun/Cre Ratio 19 [employer] Work Phone: Calcium [Mass/Vol] 10.4 mg/dL 8.6 - 10. 4 mg/dL [employer] Phone: Chloride [Moles/Vol] 102 mmol/L 98 - 10 7 mmol/L [employer] Phone: CO2 [Moles/Vol] 27 mmol/L 20 - 31 mmol/L [employer] Phone: Creatinine [Mass/Vol] 0.94 mg/dL High 0.5 - 0.9 mg/dL [employer] Phone: GFR >60 >60 mL/min [employer] Phone: GFR Comment [employer] Phone: Comment on above: Average GFR for 70 o r more years old: 75 mL/min/1.73sq m Chronic Kidney Disease: <60 mL/min/1.73sq m Kidney failure: <15 mL/min/1.73sq m eGFR calculated using average adult body mass. Additional eGFR calculator available at: http://www.[employer]/multiple_crcl_2012.htm GFR Non- 58 mL/min Low >60 [employer] Work Phone: GFR Staging NOT REPORTED [facility] Work Phone: Glucose [Mass/Vol] 111 mg/dL High 70 - 99 mg/dL [facility] Work Phone: Interpretation and review of laboratory results Abnormal [facility] Work Phone: Potassium [Moles/Vol] 4.7 mmol/L 3.7 - 5.3 mmol/L [facility] Work Phone: Protein [Mass/Vol] 7.5 g/dL 6.4 - 8.3 g/dL [facility] Work Phone: Sodium [Moles/Vol] 140 mmol/L 135 - 144 mmol/L [facility] Work Phone: Urea nitrogen [Mass/Vol] 18 mg/dL 8 - 23 mg/dL [facility] Work Phone: Rheumatoid FactorOrdered By: Jasmyne Casillas on 06-08-2019 Rheumatoid Factor <10 <14 IU/mL [facility] Work Phone: Sedimentation RateOrdered By : Jasmyne Casillas on 06-08-2019 Interpretation and review of laboratory results Abnormal [facility] Work Phone: Sed Rate 35 mm High 0 - 30 mm [facility] Work Phone: Urinalysis Reflex to Culture Ordered By: Jasmyne Casillas on 06-08-2019 Bilirubin Urine Negative NEGATIVE [employer] [facility] Work Phone: Color, UA YELLOW YELLOW [facility] Work Phone: Glucose, Ur Negative NEGATIVE [employer] [facility] Work Phone: Ketones Ql (U) Negative NEGATIVE [facility] Work Phone: Leukocyte esterase Test strip Ql (U) Negative NEGATIVE [facility] Work Phone: Nitrite, Urine Negative NEGATIVE [facility] Work Phone: pH, UA 6.5 [employer] Phone: Protein, UA Negative NEGATIVE [employer] Phone: Specific [place], UA 1.010 [employer] Phone: Turbidity UA CLEAR CLEAR [employer] Phone: Urinalysis Comments [employer] Phone: Urine Hgb Negative NEGATIVE [employer] Phone: Urobilinogen, Urine Normal Normal [employer] Phone: DEXA BONE DENSITY 2 SITESon 05-08-2019 1. Osteopenia in the hips. 2. Compared to 2017 DXA scan the lumbar spine and the hips show less than 2% change. 3. The 10 year probability of major osteoporotic fracture is 14.6% and hip fracture risk is 4.2%. [place] EXAM: DEXA BONE DENS ITY 2 SITES HISTORY: Z13.820 79-year-old white female screening for osteoporosis. COMPARISON: DXA scan 05/22/2017 on the same machine. TECHNIQUE: DXA scan lumbar spine and bilateral hips [employer] scanner serial number [id number]. FINDINGS: L1 through L4 bone mineral density normal at 1.295 g/sq cm with a T-score of 1.0. Bone mineral density of the hips 0.835 g/sq cm with a T-score of -1.4. Femoral neck mean bone mineral density 0.793 g/sq cm with a T-score of -1.8. [place], [place]hpn Incoming Radiant Results From [facility] - 05/08/2019 11:07 AM EST EXAM: DEXA BONE DENSITY 2 SITES HISTORY: Z13.820 79-year-old white female screening for osteoporosis. COMPARISON: DXA scan 05/22/2017 on the same machine. TECHNIQUE: DXA scan lumbar spine and bilateral hips [employer] scanner serial number [id number]. FINDINGS: L1 through L4 bone mineral density normal at 1.295 g/sq cm with a T-score of 1.0. Bone mineral density of the hips 0.835 g/sq cm with a T-score of -1.4. Femoral neck mean bone mineral density 0.793 g/sq cm with a T-score of -1.8. IMPRESSION: 1. Osteopenia in the hips. 2. Compared to 2017 DXA scan the lumbar spine and the hips show less than 2% change. 3. The 10 year probability of major osteoporotic fracture is 14.6% and hip fracture risk is 4.2%. [place] Vital Signs Date Time Vital Sign Value Performing Clinician Facility 02-22-2025 14:59-0400 Body height 165.1 cm Karlee Kelly MD Work Phone: [facility] 02-22-2025 14:59-0400 Body mass index (BMI) [Ratio] 27.86 kg/m2 Karlee Kelly MD Work Phone: [facility] 02-22-2025 14:59-0400 Body temperature 97.7 [degF] Karlee Kelly MD Work Phone: [facility] 02-22-2025 14:59-0400 Body weight 75.93 kg Karlee Kelly MD Work Phone: [facility] 02-22-2025 14:59-0400 Diastolic blood pressure 72 mm[Hg] Karlee Kelly MD Work Phone: [facility] 02-22-2025 14:59-0400 Heart rate 74 /min Karlee Kelly MD Work Phone: [facility] 02-22-2025 14:59-0400 Respiratory rate 16 /min Karlee Kelly MD Work Phone: [facility] 02-22-2025 14:59-0400 SaO2% (BldA) [Mass fraction] 100 % Karlee Kelly MD Work Phone: [facility] 02-22-2025 14:59-0400 Systolic blood pressure 132 mm[Hg] Karlee Kelly MD Work Phone: [facility] 02-18-2025 10:52-0400 Body mass index (BMI) [Ratio] 28.09 kg/m2 Kosta Itzkowitz DO Work Phone: [facility] 02-18-2025 10:52-0400 Body weight 76.57 kg Kosta Itzkowitz DO Work Phone: [facility] 02-18-2025 10:52-0400 Diastolic blood pressure 62 mm[Hg] Kosta Itzkowitz DO Work Phone: [facility] 02-18-2025 10:52-0400 Systolic blood pressure 118 mm[Hg] Kosta Itzkowitz DO Work Phone: [facility] 01-26-2025 10:25-0400 Body height 165.1 cm Katie Joyce PA-C Work Phone: [facility] 01-26-2025 10:25-0400 Body mass index (BMI) [Ratio] 28.39 kg/m2 Katie Joyce PA-C Work Phone: [facility] 01-26-2025 10:25-0400 Body temperature 97.11 [degF] Katie Joyce PA-C Work Phone: [facility] 01-26-2025 10:25-0400 Body weight 77.38 kg Katie Joyce PA-C Work Phone: [facility] Comment on above: per patient 01-26-2025 10:25-0400 Diastolic blood pressure 45 mm[Hg] Katie Joyce PA-C Work Phone: [facility] 01-26-2025 10:25-0400 Heart rate 61 /min Katie Joyce PA-C Work Phone: [facility] 01-26-2025 10:25-0400 Respiratory rate 16 /min Katie Joyce PA-C Work Phone: [facility] 01-26-2025 10:25-0400 SaO2% (BldA) [Mass fraction] 99 % Katie Joyce PA-C Work Phone: [facility] 01-26-2025 10:25-0400 Systolic blood pressure 108 mm[Hg] Katie Cook PA-C Work Phone: [facility] 01-06-2025 09:46-0400 Body temperature 97.9 [degF] Chair Nemacolin Work Phone: [facility] 01-06-2025 09:46-0400 Diastolic blood pressure 61 mm[Hg] Chair Christa Work Phone: [facility] 01-06-2025 09:46-0400 Heart rate 58 /min Chair Christa Work Phone: [facility] 01-06-2025 09:46-0400 Respiratory rate 16 /min Chair Nemacolin Work Phone: [facility] 01-06-2025 09:46-0400 SaO2% (BldA) [Mass fraction] 99 % Chair Christa Work Phone: [facility] 01-06-2025 09:46-0400 Systolic blood pressure 114 mm[Hg] Chair Nemacolin Work Phone: [facility] 12-30-2024 09:19-0400 Body temperature 97.9 [degF] Chair Nemacolin Work Phone: [facility] 12-30-2024 09:19-0400 Diastolic blood pressure 65 mm[Hg] Chair Christa Work Phone: [facility] 12-30-2024 09:19-0400 Heart rate 63 /min Chair Christa Work Phone: [facility] 12-30-2024 09:19-0400 Respiratory rate 18 /min Chair Christa Work Phone: [facility] 12-30-2024 09:19-0400 SaO2% (BldA) [Mass fraction] 100 % Chair Nemacolin Work Phone: [facility] 12-30-2024 09:19-0400 Systolic blood pressure 109 mm[Hg] Chair Nemacolin Work Phone: [facility] 12-22-2024 11:42-0400 Body temperature 97.9 [degF] Chair Christa Work Phone: [facility] 12-22-2024 11:42-0400 Diastolic blood pressure 64 mm[Hg] Chair Nemacolin Work Phone: [facility] 12-22-2024 11:42-0400 Heart rate 56 /min Chair Nemacolin Work Phone: [facility] 12-22-2024 11:42-0400 Respiratory rate 16 /min Chair Christa Work Phone: [facility] 12-22-2024 11:42-0400 SaO2% (BldA) [Mass fraction] 98 % Chair Christa Work Phone: [facility] 12-22-2024 11:42-0400 Systolic blood pressure 108 mm[Hg] Chair Nemacolin Work Phone: [facility] 12-14-2024 10:38-0400 Body height 165.1 cm Katie Joyce PA-C Work Phone: [facility] 12-14-2024 10:38-0400 Body mass index (BMI) [Ratio] 28.69 kg/m2 Aktie Joyce PA-C Work Phone: [facility] 12-14-2024 10:38-0400 Body temperature 97.5 [degF] Katie Joyce PA-C Work Phone: [facility] 12-14-2024 10:38-0400 Body weight 78.2 kg Katie Joyce PA-C Work Phone: [facility] Comment on above: Verbal per patient 12-14-2024 10:38-0400 Diastolic blood pressure 73 mm[Hg] Katie Joyce PA-C Work Phone: [facility] 12-14-2024 10:38-0400 Heart rate 70 /min Katie Joyce PA-C Work Phone: [facility] 12-14-2024 10:38-0400 Respiratory rate 16 /min Katie Joyce PA-C Work Phone: [facility] 12-14-2024 10:38-0400 SaO2% (BldA) [Mass fraction] 98 % Katie Joyce PA-C Work Phone: [facility] 12-14-2024 10:38-0400 Systolic blood pressure 115 mm[Hg] Katie Joyce PA-C Work Phone: [facility] 12-07-2024 14:03-0400 Body mass index (BMI) [Ratio] 28.82 kg/m2 Katie Joyce PA-C Work Phone: [facility] 12-07-2024 14:03-0400 Body temperature 97.2 [degF] Katie Joyce PA-C Work Phone: [facility] 12-07-2024 14:03-0400 Body weight 78.56 kg Katie Joyce PA-C Work Phone: [facility] Comment on above: per patient 12-07-2024 14:03-0400 Diastolic blood pressure 62 mm[Hg] Katie Joyce PA-C Work Phone: [facility] 12-07-2024 14:03-0400 Heart rate 78 /min Katie Joyce PA-C Work Phone: [facility] 12-07-2024 14:03-0400 Respiratory rate 18 /min Katie Joyce PA-C Work Phone: [facility] 12-07-2024 14:03-0400 SaO2% (BldA) [Mass fraction] 97 % Katie Joyce PA-C Work Phone: [facility] 12-07-2024 14:03-0400 Systolic blood pressure 111 mm[Hg] Katie Joyce PA-C Work Phone: [facility] 10-26-2024 11:00-0400 Diastolic blood pressure 60 mm[Hg] Jasmyne Casillas SWING FRAME GRINDER OPERATOR Work Phone: [facility] 10-26-2024 11:00-0400 Heart rate 60 /min Jasmyne Casillas SWING FRAME GRINDER OPERATOR Work Phone: [facility] 10-26-2024 11:00-0400 Respiratory rate 16 /min Jasmyne Casillas SWING FRAME GRINDER OPERATOR Work Phone: [facility] 10-26-2024 11:00-0400 SaO2% (BldA) [Mass fraction] 100 % Jasmyne Casillas SWING FRAME GRINDER OPERATOR Work Phone: [facility] 10-26-2024 11:00-0400 Systolic blood pressure 110 mm[Hg] Jasmyne Casillas SWING FRAME GRINDER OPERATOR Work Phone: [facility] 10-26-2024 09:43-0400 Body height 165.1 cm Jasmyne Casillas SWING FRAME GRINDER OPERATOR Work Phone: [facility] 10-26-2024 09:43-0400 Body weight 77.11 kg Jasmyne Casillas APRN Work Phone: [facility] 09-21-2024 10:57-0400 Body mass index (BMI) [Ratio] 28.09 kg/m2 Bryanna Adan MD Work Phone: [facility] 09-21-2024 10:57-0400 Body temperature 97.3 [degF] Bryanna Adan MD Work Phone: [facility] 09-21-2024 10:57-0400 Body weight 76.57 kg Bryanna Adan MD Work Phone: [facility] Comment on above: pt reported 09-21-2024 10:57-0400 Diastolic blood pressure 58 mm[Hg] Bryanna Adan MD Work Phone: [facility] 09-21-2024 10:57-0400 Heart rate 68 /min Bryanna Adan MD Work Phone: [facility] 09-21-2024 10:57-0400 Respiratory rate 18 /min Bryanna Adan MD Work Phone: [facility] 09-21-2024 10:57-0400 SaO2% (BldA) [Mass fraction] 98 % Bryanna Adan MD Work Phone: [facility] 09-21-2024 10:57-0400 Systolic blood pressure 124 mm[Hg] Bryanna Adan MD Work Phone: [facility] 09-09-2024 10:54-0400 Body height 165.1 cm Jasmyne Casillas SWING FRAME GRINDER OPERATOR Work Phone: [facility] 09-09-2024 10:54-0400 Body mass index (BMI) [Ratio] 31.5 kg/m2 Jasmyne Casillas SWING FRAME GRINDER OPERATOR Work Phone: [facility] 09-09-2024 10:54-0400 Body weight 86 kg Jasmyne Casillas SWING FRAME GRINDER OPERATOR Work Phone: [facility] 08-20-2024 10:23-0500 Body height 165.1 cm Kosta Itzkowitz DO Work Phone: [facility] 08-20-2024 10:23-0500 Body mass index (BMI) [Ratio] 28.36 kg/m2 Kosta Itzkowitz DO Work Phone: [facility] 08-20-2024 10:23-0500 Body weight 77.29 kg Kosta Itzkowitz DO Work Phone: [facility] 08-20-2024 10:23-0500 Diastolic blood pressure 66 mm[Hg] Kosta Itzkowitz DO Work Phone: [facility] 08-20-2024 10:23-0500 Systolic blood pressure 120 mm[Hg] Kosta Itzkowitz DO Work Phone: [facility] 08-17-2024 09:43-0500 Body mass index (BMI) [Ratio] 28.29 kg/m2 Bryanna Adan MD Work Phone: [facility] 08-17-2024 09:43-0500 Body temperature 97.11 [degF] Bryanna Adan MD Work Phone: [facility] 08-17-2024 09:43-0500 Body weight 77.11 kg Bryanna Adan MD Work Phone: [facility] Comment on above: pt reported 08-17-2024 09:43-0500 Diastolic blood pressure 76 mm[Hg] Bryanna Adan MD Work Phone: [facility] 08-17-2024 09:43-0500 Heart rate 76 /min Bryanna Adan MD Work Phone: [facility] 08-17-2024 09:43-0500 Respiratory rate 18 /min Bryanna Adan MD Work Phone: [facility] 08-17-2024 09:43-0500 SaO2% (BldA) [Mass fraction] 100 % Bryanna Adan MD Work Phone: [facility] 08-17-2024 09:43-0500 Systolic blood pressure 130 mm[Hg] Bryanna Adan MD Work Phone: [facility] 08-02-2024 06:34-0500 Body temperature 98.1 [degF] Jasmyne Casillas APRN Work Phone: [facility] 08-02-2024 06:34-0500 Diastolic blood pressure 68 mm[Hg] Jasmyne Casillas APRN Work Phone: [facility] 08-02-2024 06:34-0500 Heart rate 74 /min Jasmyne Casillas APRN Work Phone: [facility] 08-02-2024 06:34-0500 Respiratory rate 20 /min Jasmyne Casillas APRN Work Phone: [facility] 08-02-2024 06:34-0500 SaO2% (BldA) [Mass fraction] 98 % Jasmyne Casillas APRN Work Phone: [facility] 08-02-2024 06:34-0500 Systolic blood pressure 133 mm[Hg] Jasmyne Casillas APRN Work Phone: [facility] 08-02-2024 06:30-0500 Body weight 86.9 kg Jasmyne Casillas SWING FRAME GRINDER OPERATOR Work Phone: 7(643)673-878543 [place] [address] 07-29-2024 11:33-0500 Body height 165.1 cm Jasmyne Casillas SWING FRAME GRINDER OPERATOR Work Phone: 2(314)263-750443 [place] [address] 07-28-2024 12:09-0500 Body temperature 98.8 [degF] Jasmyne Casillas SWING FRAME GRINDER OPERATOR Work Phone: 0(552)637-847543 [place] [address] 07-28-2024 12:09-0500 Diastolic blood pressure 71 mm[Hg] Jasmyne Sonja SWING FRAME GRINDER OPERATOR Work Phone: 1(669)518-225643 [place] [address] 07-28-2024 12:09-0500 Heart rate 69 /min Jasmyne Sonja SWING FRAME GRINDER OPERATOR Work Phone: 3(676)550-922716 [address] 07-28-2024 12:09-0500 Respiratory rate 16 /min Jasmyne Casillas SWING FRAME GRINDER OPERATOR Work Phone: 6(194)904-456443 [place] [address] 07-28-2024 12:09-0500 SaO2% (BldA) [Mass fraction] 96 % Jasmyne Casillas SWING FRAME GRINDER OPERATOR Work Phone: 3(415)452-472243 [place] [address] 07-28-2024 12:09-0500 Systolic blood pressure 131 mm[Hg] Jasmyne Casillas SWING FRAME GRINDER OPERATOR Work Phone: 3(105)671-298543 [place] [address] 07-27-2024 19:19-0500 Inhaled oxygen flow rate 2 L/min Jasmyne Casillas SWING FRAME GRINDER OPERATOR Work Phone: 2(041)697-207443 [place] [address] 07-27-2024 10:33-0500 Body height 165.1 cm Jasmyne Sonja SWING FRAME GRINDER OPERATOR Work Phone: 2(612)386-649143 [place] [address] 07-27-2024 10:33-0500 Body weight 81 kg Jasmyne Sonja SWING FRAME GRINDER OPERATOR Work Phone: 0(465)297-084443 [place] [address] 06-15-2024 14:06-0500 Body height 165.1 cm Jasmyne Sonja SWING FRAME GRINDER OPERATOR Work Phone: 6(656)527-947143 [place] [address] 06-15-2024 14:06-0500 Body mass index (BMI) [Ratio] 29.5 kg/m2 Jasmyne Sonja SWING FRAME GRINDER OPERATOR Work Phone: [facility] 06-15-2024 14:06-0500 Body weight 80.39 kg Jasmyne Casillas SWING FRAME GRINDER OPERATOR Work Phone: [facility] 06-15-2024 14:06-0500 Diastolic blood pressure 62 mm[Hg] Jasmyne Casillas SWING FRAME GRINDER OPERATOR Work Phone: [facility] 06-15-2024 14:06-0500 Heart rate 61 /min Jasmyne Casillas SWING FRAME GRINDER OPERATOR Work Phone: [facility] 06-15-2024 14:06-0500 Systolic blood pressure 115 mm[Hg] Jasmyne Casillas SWING FRAME GRINDER OPERATOR Work Phone: [facility] 05-25-2024 10:59-0500 Body mass index (BMI) [Ratio] 30.49 kg/m2 Bryanna Adan MD Work Phone: [facility] 05-25-2024 10:59-0500 Body temperature 97.39 [degF] Bryanna Adan MD Work Phone: [facility] 05-25-2024 10:59-0500 Body weight 83.1 kg Bryanna Adan MD Work Phone: [facility] Comment on above: per patient 05-25-2024 10:59-0500 Diastolic blood pressure 77 mm[Hg] Bryanna Adan MD Work Phone: [facility] 05-25-2024 10:59-0500 Heart rate 66 /min Bryanna Adan MD Work Phone: [facility] 05-25-2024 10:59-0500 Respiratory rate 20 /min Bryanna Adan MD Work Phone: [facility] 05-25-2024 10:59-0500 SaO2% (BldA) [Mass fraction] 99 % Bryanna Adan MD Work Phone: [facility] 05-25-2024 10:59-0500 Systolic blood pressure 126 mm[Hg] Bryanna Adan MD Work Phone: [facility] 04-21-2024 09:04-0400 Diastolic blood pressure 58 mm[Hg] SWING FRAME GRINDER OPERATOR Jasmyne Casillas Work Phone: [facility] 04-21-2024 09:04-0400 Heart rate 63 /min SWING FRAME GRINDER OPERATOR Jasmyne Casillas Work Phone: [facility] 04-21-2024 09:04-0400 Respiratory rate 16 /min SWING FRAME GRINDER OPERATORCali Casillas Work Phone: [facility] 04-21-2024 09:04-0400 SaO2% (BldA) [Mass fraction] 96 % SWING FRAME GRINDER OPERATOR Jasmyne Casillas Work Phone: [facility] 04-21-2024 09:04-0400 Systolic blood pressure 120 mm[Hg] SWING FRAME GRINDER OPERATOR Jasmyne Casillas Work Phone: [facility] 04-21-2024 08:20-0400 Inhaled oxygen flow rate 3 L/min SWING FRAME GRINDER OPERATOR Jasmyne Casillas Work Phone: [facility] 04-21-2024 07:23-0400 Body height 165.1 cm SWING FRAME GRINDER OPERATORCali Casillas Work Phone: [facility] 04-21-2024 07:23-0400 Body weight 83.68 kg SWING FRAME GRINDER OPERATORCali Casillas Work Phone: [facility] 03-25-2024 20:00-0400 Body height 165.1 cm Mwhz Schedule [facility] [employer] [facility] 03-25-2024 20:00-0400 Body mass index (BMI) [Ratio] 30.95 kg/m2 [facility] [employer] 03-25-2024 20:00-0400 Body weight 84.37 kg [facility] 11-26-2023 10:08-0400 Body height 165.1 cm Bryanna Adan MD Work Phone: [facility] 11-26-2023 10:08-0400 Body temperature 97.2 [degF] Bryanna Adan MD Work Phone: [facility] 11-26-2023 10:08-0400 Diastolic blood pressure 67 mm[Hg] Bryanna Adan MD Work Phone: [facility] 11-26-2023 10:08-0400 Heart rate 69 /min Bryanna Adan MD Work Phone: [facility] 11-26-2023 10:08-0400 Respiratory rate 18 /min Brynana Adan MD Work Phone: [facility] 11-26-2023 10:08-0400 SaO2% (BldA) [Mass fraction] 98 % Bryanna Adan MD Work Phone: [facility] 11-26-2023 10:08-0400 Systolic blood pressure 110 mm[Hg] Bryanna Adan MD Work Phone: [facility] 09-04-2023 09:39-0500 Body weight 81.3 kg [facility] 09-04-2023 09:39-0500 Diastolic blood pressure 65 mm[Hg] [facility] 09-04-2023 09:39-0500 Heart rate 57 /min [facility] 09-04-2023 09:39-0500 Systolic blood pressure 115 mm[Hg] [facility] 08-15-2023 09:05-0500 Body height 165.1 cm [employer] DO Work Phone: [facility] 08-15-2023 09:05-0500 Body mass index (BMI) [Ratio] 28.99 kg/m2 [employer] DO Work Phone: [facility] 08-15-2023 09:05-0500 Body weight 79.02 kg [employer] DO Work Phone: [facility] 07-11-2023 09:15-0500 Body height 165.1 cm Sridevi Tovar II Other [facility] 07-11-2023 09:15-0500 Body mass index (BMI) [Ratio] 29.95 kg/m2 Sridevi Tovar II Other [employer] Other 07-11-2023 09:15-0500 Body weight 81.65 kg Sridevi Converse II Other [employer] [facility] [employer] Other 07-11-2023 09:15-0500 Body weight 81.64 kg [facility] 05-15-2023 10:45-0500 Body height 165.1 cm Sridevi Guy II Other [employer] Other 05-15-2023 10:45-0500 Body mass index (BMI) [Ratio] 29.98 kg/m2 Sridevi Converse II Other [employer] Other 05-15-2023 10:45-0500 Body weight 81.74 kg Sridevi Converse II Other [employer] Other 04-11-2023 09:45-0400 Body height 165.1 cm Sridevi Converse II Other [employer] Other 04-11-2023 09:45-0400 Body mass index (BMI) [Ratio] 30.28 kg/m2 Sridevi Guy II Other [employer] Other 04-11-2023 09:45-0400 Body weight 82.56 kg Sridevi Guy II Other [employer] Other 04-03-2023 13:57-0400 Diastolic blood pressure 61 mm[Hg] ALYSSA Casillas Work Phone: [facility] 04-03-2023 13:57-0400 Heart rate 50 /min SWING FRAME GRINDER OPERATORCali Casillas Work Phone: [facility] 04-03-2023 13:57-0400 Respiratory rate 16 /min SWING FRAME GRINDER OPERATORCali Casillas Work Phone: [facility] 04-03-2023 13:57-0400 SaO2% (BldA) [Mass fraction] 98 % SWING FRAME GRINDER OPERATORCali Casillas Work Phone: [facility] 04-03-2023 13:57-0400 Systolic blood pressure 113 mm[Hg] SWING FRAME GRINDER OPERATORCali Medley Sonja Work Phone: [facility] 04-03-2023 12:05-0400 Body height 165.1 cm SWING FRAME GRINDER OPERATOR Jasmyne Casillas Work Phone: [facility] 04-03-2023 12:05-0400 Body temperature 98 [degF] SWING FRAME GRINDER OPERATORCali Medley Sonja Work Phone: [facility] 04-03-2023 12:05-0400 Body weight 82.1 kg SWING FRAME GRINDER OPERATORCali Medley Sonja Work Phone: [facility] 03-13-2023 10:00-0400 Body height 165.1 cm Taz Pierre Other [employer] [facility] [employer] Other 03-13-2023 10:00-0400 Body mass index (BMI) [Ratio] 30.28 kg/m2 Taz Pierre Other [employer] [facility] [employer] Other 03-13-2023 10:00-0400 Body weight 82.56 kg Taz Pierre Other [employer] Other 03-13-2023 10:00-0400 Diastolic blood pressure 63 mm[Hg] Taz Pierre Other [employer] Other 03-13-2023 10:00-0400 Systolic blood pressure 117 mm[Hg] Taz Pierre Other [employer] Other 01-16-2023 13:48-0400 Diastolic blood pressure 66 mm[Hg] ALYSSA Medley Sonja Work Phone: [facility] 01-16-2023 13:48-0400 Heart rate 50 /min SWING FRAME GRINDER OPERATORCali Casillas Work Phone: [facility] 01-16-2023 13:48-0400 Respiratory rate 16 /min SWING FRAME GRINDER OPERATOR Jasmyne Casillas Work Phone: [facility] 01-16-2023 13:48-0400 SaO2% (BldA) [Mass fraction] 97 % SWING FRAME GRINDER OPERATORCali Casillas Work Phone: [facility] 01-16-2023 13:48-0400 Systolic blood pressure 124 mm[Hg] SWING FRAME GRINDER OPERATOR Jasmyne Casillas Work Phone: [facility] 01-16-2023 12:08-0400 Body height 165.1 cm SWING FRAME GRINDER OPERATOR Jasmyne Casillas Work Phone: [facility] 01-16-2023 12:08-0400 Body temperature 98 [degF] ALYSSA Casillas Work Phone: [facility] 01-16-2023 12:08-0400 Body weight 81.37 kg SWING FRAME GRINDER OPERATOR Jasmyne Casillas Work Phone: [facility] 01-15-2023 13:28-0400 Body height 165.1 cm Bryanna Adan MD Work Phone: [facility] 01-15-2023 13:28-0400 Body temperature 97.9 [degF] Bryanna Adan MD Work Phone: [facility] 01-15-2023 13:28-0400 Body weight 89.54 kg Bryanna Adan MD Work Phone: [facility] 01-15-2023 13:28-0400 Diastolic blood pressure 55 mm[Hg] Bryanna Adan MD Work Phone: [facility] 01-15-2023 13:28-0400 Heart rate 52 /min Bryanna Adan MD Work Phone: [facility] 01-15-2023 13:28-0400 Respiratory rate 18 /min Bryanna Adan MD Work Phone: [facility] 01-15-2023 13:28-0400 SaO2% (BldA) [Mass fraction] 97 % Bryanna Adan MD Work Phone: [facility] 01-15-2023 13:28-0400 Systolic blood pressure 120 mm[Hg] Bryanna Adan MD Work Phone: [facility] 12-19-2022 09:30-0400 Body height 165.1 cm Taz Pierre Other [employer] Other 12-19-2022 09:30-0400 Body mass index (BMI) [Ratio] 29.62 kg/m2 Taz Pierre Other [employer] Other 12-19-2022 09:30-0400 Body weight 80.74 kg Taz Pierre Other [employer] Other 12-19-2022 09:30-0400 Diastolic blood pressure 60 mm[Hg] Taz Pierre Other [employer] Other 12-19-2022 09:30-0400 Systolic blood pressure 112 mm[Hg] Taz Pierre Other [employer] Other 12-07-2022 13:30-0400 Body height 165.1 cm Sridevi Converse II Other [employer] Other 12-07-2022 13:30-0400 Body mass index (BMI) [Ratio] 30.08 kg/m2 Sridevi Converse II Other [employer] Other 12-07-2022 13:30-0400 Body weight 82.01 kg Sridevi Converse II Other [employer] Other 10-01-2022 10:16-0400 Body temperature 97.81 [degF] Bryanna Adan MD Work Phone: [facility] 10-01-2022 10:16-0400 Diastolic blood pressure 53 mm[Hg] Bryanna Adan MD Work Phone: [facility] 10-01-2022 10:16-0400 Heart rate 52 /min Bryanna Adan MD Work Phone: [facility] 10-01-2022 10:16-0400 Respiratory rate 20 /min Bryanna Adan MD Work Phone: [facility] 10-01-2022 10:16-0400 SaO2% (BldA) [Mass fraction] 99 % Bryanna Adan MD Work Phone: [facility] 10-01-2022 10:16-0400 Systolic blood pressure 144 mm[Hg] Bryanna Adan MD Work Phone: [facility] 09-17-2022 11:00-0400 Body height 165.1 cm Taz Ignacio Other [employer] Other 09-17-2022 11:00-0400 Body mass index (BMI) [Ratio] 29.32 kg/m2 Taz Pierre Other [employer] Other 09-17-2022 11:00-0400 Body weight 79.92 kg Taz Pierre Other [employer] Other 09-17-2022 11:00-0400 Diastolic blood pressure 64 mm[Hg] Taz Pierre Other [employer] Other 09-17-2022 11:00-0400 Systolic blood pressure 123 mm[Hg] Taz Pierre Other [employer] Other 07-13-2022 10:51-0500 Body height 165.1 cm Lior Whitfield PA-C Work Phone: [facility] 07-13-2022 10:51-0500 Body weight 78.93 kg Lior Whitfield PA-C Work Phone: [facility] 07-13-2022 10:51-0500 Diastolic blood pressure 56 mm[Hg] Lior Whitfield PA-C Work Phone: [facility] 07-13-2022 10:51-0500 Heart rate 50 /min Lior Whitfield PA-C Work Phone: [facility] 07-13-2022 10:51-0500 SaO2% (BldA) [Mass fraction] 96 % Lior Whitfield PA-C Work Phone: [facility] 07-13-2022 10:51-0500 Systolic blood pressure 131 mm[Hg] Lior Whitfield PA-C Work Phone: [facility] 07-03-2022 10:12-0500 Body height 162.6 cm Bryanna Adan MD Work Phone: [facility] 07-03-2022 10:12-0500 Body temperature 97.7 [degF] Bryanna Adan MD Work Phone: [facility] 07-03-2022 10:12-0500 Body weight 79.2 kg Bryanna Adan MD Work Phone: [facility] 07-03-2022 10:12-0500 Diastolic blood pressure 44 mm[Hg] Bryanna Adan MD Work Phone: [facility] 07-03-2022 10:12-0500 Heart rate 55 /min Bryanna Adan MD Work Phone: [facility] 07-03-2022 10:12-0500 Respiratory rate 16 /min Bryanna Adan MD Work Phone: [facility] 07-03-2022 10:12-0500 SaO2% (BldA) [Mass fraction] 97 % Bryanna Adan MD Work Phone: [facility] 07-03-2022 10:12-0500 Systolic blood pressure 113 mm[Hg] Bryanna Adan MD Work Phone: [facility] 06-01-2022 11:15-0500 Body height 162.6 cm Mitzi Amaral MD Work Phone: [facility] 06-01-2022 11:15-0500 Body weight 81.65 kg Mitzi Amaral MD Work Phone: [facility] 06-01-2022 11:15-0500 Diastolic blood pressure 53 mm[Hg] Mitzi Amaral MD Work Phone: [facility] 06-01-2022 11:15-0500 Heart rate 58 /min Mitzi Amaral MD Work Phone: [facility] 06-01-2022 11:15-0500 SaO2% (BldA) [Mass fraction] 97 % Mitzi Amaral MD Work Phone: [facility] 06-01-2022 11:15-0500 Systolic blood pressure 119 mm[Hg] Mitzi Amaral MD Work Phone: [facility] 05-30-2022 16:00-0500 Body height 163.8 cm Pulm Rej Work Phone: [facility] 05-30-2022 16:00-0500 Body weight 84.1 kg Pulm Rej Work Phone: [facility] 05-30-2022 13:39-0500 Body height 162.6 cm Pacc 1 Other Phone: [facility] 05-30-2022 13:39-0500 Body temperature 98.8 [degF] Pacc 1 Other Phone: [facility] 05-30-2022 13:39-0500 Body weight 83.01 kg Pacc 1 Other Phone: [facility] 05-30-2022 13:39-0500 Diastolic blood pressure 74 mm[Hg] Pacc 1 Other Phone: [facility] 05-30-2022 13:39-0500 Heart rate 55 /min Pacc 1 Other Phone: [facility] 05-30-2022 13:39-0500 Respiratory rate 18 /min Pacc 1 Other Phone: [facility] 05-30-2022 13:39-0500 SaO2% (BldA) [Mass fraction] 98 % Pacc 1 Other Phone: [facility] 05-30-2022 13:39-0500 Systolic blood pressure 115 mm[Hg] Pacc 1 Other Phone: [facility] 05-16-2022 10:03-0500 Body height 165.1 cm Mitzi Amaral MD Work Phone: [facility] 05-16-2022 10:03-0500 Body weight 83.87 kg Mitzi Amaral MD Work Phone: [facility] 05-16-2022 10:03-0500 Diastolic blood pressure 72 mm[Hg] Mitzi Amaral MD Work Phone: [facility] 05-16-2022 10:03-0500 Heart rate 56 /min Mitzi Amaral MD Work Phone: [facility] 05-16-2022 10:03-0500 SaO2% (BldA) [Mass fraction] 98 % Mitzi Amaral MD Work Phone: [facility] 05-16-2022 10:03-0500 Systolic blood pressure 137 mm[Hg] Mitzi Amaral MD Work Phone: [facility] 05-10-2022 12:56-0500 Body height 165.1 cm Bryanna Adan MD Work Phone: [facility] 05-10-2022 12:56-0500 Body temperature 97.39 [degF] Bryanna Adan MD Work Phone: [facility] 05-10-2022 12:56-0500 Body weight 82.01 kg Bryanna Adan MD Work Phone: [facility] 05-10-2022 12:56-0500 Diastolic blood pressure 58 mm[Hg] Bryanna Adan MD Work Phone: [facility] 05-10-2022 12:56-0500 Heart rate 52 /min Bryanna Adan MD Work Phone: [facility] 05-10-2022 12:56-0500 Respiratory rate 18 /min Bryanna Adan MD Work Phone: [facility] 05-10-2022 12:56-0500 SaO2% (BldA) [Mass fraction] 96 % Bryanna Adan MD Work Phone: [facility] 05-10-2022 12:56-0500 Systolic blood pressure 125 mm[Hg] Bryanna Adan MD Work Phone: [facility] 04-12-2022 10:31-0400 Body height 165.1 cm Bryanna Adan MD Work Phone: [facility] 04-12-2022 10:31-0400 Body temperature 97.81 [degF] Bryanna Adan MD Work Phone: [facility] 04-12-2022 10:31-0400 Body weight 82.28 kg Bryanna Adan MD Work Phone: [facility] 04-12-2022 10:31-0400 Diastolic blood pressure 63 mm[Hg] Bryanna Adan MD Work Phone: [facility] 04-12-2022 10:31-0400 Heart rate 57 /min Bryanna Adan MD Work Phone: [facility] 04-12-2022 10:31-0400 Respiratory rate 16 /min Bryanna Adan MD Work Phone: [facility] 04-12-2022 10:31-0400 SaO2% (BldA) [Mass fraction] 98 % Bryanna dAan MD Work Phone: [facility] 04-12-2022 10:31-0400 Systolic blood pressure 130 mm[Hg] Bryanna Adan MD Work Phone: [facility] 03-28-2022 10:15-0400 Body height 165.1 cm Taz Pierre Other [facility] Other 03-28-2022 10:15-0400 Body mass index (BMI) [Ratio] 30.12 kg/m2 Taz Pierre Other [facility] Other 03-28-2022 10:15-0400 Body weight 82.1 kg Taz Pierre Other [facility] Other 03-28-2022 10:15-0400 Diastolic blood pressure 68 mm[Hg] Taz Pierre Other [facility] Other 03-28-2022 10:15-0400 Systolic blood pressure 144 mm[Hg] Taz Pierre Other [facility] Other 02-08-2022 10:22-0400 Body height 165.1 cm Babatunde Pizarro MD Work Phone: [facility] 02-08-2022 10:22-0400 Body temperature 98.1 [degF] Babatunde Pizarro MD Work Phone: [facility] 02-08-2022 10:22-0400 Body weight 82.37 kg Babatunde Pizarro MD Work Phone: [facility] 02-08-2022 10:22-0400 Diastolic blood pressure 59 mm[Hg] Babatunde Pizarro MD Work Phone: [facility] 02-08-2022 10:22-0400 Heart rate 51 /min Babatunde Pizarro MD Work Phone: [facility] 02-08-2022 10:22-0400 Respiratory rate 16 /min Babatunde Pizarro MD Work Phone: [facility] 02-08-2022 10:22-0400 SaO2% (BldA) [Mass fraction] 96 % Babatunde Pizarro MD Work Phone: [facility] 02-08-2022 10:22-0400 Systolic blood pressure 108 mm[Hg] Babatunde Pizarro MD Work Phone: [facility] 12-27-2021 10:15-0400 Body height 165.1 cm Taz Pierre Other [facility] [employer] Other 12-27-2021 10:15-0400 Body mass index (BMI) [Ratio] 30.12 kg/m2 Taz Pierre Other [facility] [employer] Other 12-27-2021 10:15-0400 Body weight 82.1 kg Taz Pierre Other [facility] [employer] Other 10-11-2021 08:15-0400 Blood Pressure Location Vahe LLANOS [facility] 10-11-2021 08:15-0400 Diastolic blood pressure 62 mm[Hg] Vahe LLANOS [facility] 10-11-2021 08:15-0400 Heart rate 55 /min Vahe LLANOS [facility] 10-11-2021 08:15-0400 Respiratory rate 16 /min Vahe LLANOS [facility] 10-11-2021 08:15-0400 Systolic blood pressure 132 mm[Hg] Vahe LLANOS [facility] 06-06-2020 08:35-0500 Body Temperature 96 [degF] [facility] 06-06-2020 08:35-0500 BP Diastolic 66 mm[Hg] [facility] 06-06-2020 08:35-0500 BP Systolic 125 mm[Hg] Kosta Tk [facility] 06-06-2020 08:35-0500 Pulse (Heart Rate) 67 /min Kosta Tk [facility] 06-06-2020 08:35-0500 Pulse Oximetry 100 % Kosta [email or web address] [facility] 06-06-2020 08:35-0500 Respiratory Rate 16 /[facility] Encounters Encounter Date Encounter Type Care Provider Facility Start: 03-26-2025 End: 03-26-2025 ambulatory JOVAN LEMA Not Available Start: 03-26-2025 End: 03-26-2025 Patient encounter procedure Jovan Lema DO Work Phone: [facility] Comment on above: Cyst of left lower e yelid (Primary Dx); Pain, eyelid; Basal cell carcinoma (BCC) of left lower eyelid Start: 03-09-2025 End: 03-09-2025 ambulatory JOVAN LEMA Not Available Start: 03-09-2025 End: 03-09-2025 Bamboo flowsheet Jovan Lema DO Work Phone: [facility] Start: 03-09-2025 End: 03-09-2025 Bamboo flowsheet Jovan Lema DO Work Phone: [facility] Start: 02-26-2025 End: 02-26-2025 ambulatory JASMYNE CASILLAS Facility:[facility] Start: 02-26-2025 End: 02-26-2025 Patient encounter procedure Binu Upton MD Work Phone: Vascular Surgery Comment on above: Penetrating atherosc lerotic ulcer of aorta Start: 02-24-2025 End: 02-24-2025 Patient encounter procedure KATIE Mccann PA-C -CT Scan [facility] [place] Work Phone: Start: 02-24-2025 End: 02-24-2025 ambulatory Jasmyne Casillas SWING FRAME GRINDER OPERATOR Work Phone: [facility] Work Phone: Start: 02-22-2025 End: 02-22-2025 Office outpatient visit 25 minutes Karlee Kelly MD Work Phone: Hematology/Oncology Comment on above: Iron deficiency anem ia due to chronic blood loss (Primary Dx); Malignant neoplasm of lung, unspecified laterality, unspecified part of lung (HCC); History of ductal carcinoma in situ (DCIS) of breast; Infrarenal abdominal aortic aneurysm (AAA) without rupture; Stage 3a chronic kidney disease (HCC); Ductal carcinoma in situ (DCIS) of right breast; Flank pain; Malignant neoplasm of upper lobe of left lung (HCC); Abdominal aortic aneurysm (AAA) without rupture, unspecified part; Iron deficiency anemia, unspecified iron deficiency anemia type; 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; Primary malignant neoplasm of left lung (HCC); Personal history of malignant neoplasm of lung; Personal history of malignant neoplasm of breast; Malignant neoplasm of right breast in female, estrogen receptor positive, unspecified site of breast (HCC) Start: 02-22-2025 End: 02-22-2025 ambulatory JASMYNE CASILLAS Facility:[facility] Start: 02-22-2025 End: 03-04-2025 Telephone encounter Karlee Kelly MD Work Phone: [facility] Comment on above: Results Start: 02-18-2025 End: 02-18-2025 ambulatory KOSTA KEENE Not Available Start: 02-18-2025 End: 02-18-2025 Office outpatient visit 25 minutes Kosta Keene DO Work Phone: [facility] Comment on above: Ductal carcinoma in situ (DCIS) of right breast (Primary Dx) Start: 02-16-2025 End: 02-24-2025 Follow-up encounter Katie Cook PA-C Work Phone: Hematology/Oncology Start: 02-16-2025 End: 02-24-2025 Patient encounter status Katie Cook PA-C Work Phone: [facility] Start: 02-15-2025 ambulatory JASMYNE CASILLAS Facility: [facility] Start: 02-15-2025 End: 02-15-2025 Subsequent hospital visit by physician Arrival Time Radiology Work Phone: [facility] Comment on above: Malignant neoplasm o f unspecified part of unspecified bronchus or lung (HCC) [C34.90] Start: 02-12-2025 End: 02-12-2025 Telephone encounter Katie Cook PA-C Work Phone: Hematology/Oncology Comment on above: Orders Start: 02-09-2025 End: 02-09-2025 ambulatory [facility] Start: 01-27-2025 End: 01-27-2025 Follow-up encounter Katie Cook PA-C Work Phone: Hematology/Oncology Comment on above: Results Start: 01-26-2025 End: 01-26-2025 Telephone encounter Gia Clayton RN Hematology/Oncology Comment on above: Urgent visit Start: 01-26-2025 End: 01-26-2025 Office outpatient visit 25 minutes Katie Cook PA-C Work Phone: Hematology/Oncology Comment on above: Stage 3a chronic kid isabelle disease (HCC) (Primary Dx); Iron deficiency anemia due to chronic blood loss; Ductal carcinoma in situ (DCIS) of right breast Start: 01-26-2025 End: 01-26-2025 ambulatory JASMYNE CASILLAS Facility:[facility] Start: 01-06-2025 End: 01-06-2025 ambulatory Chair 11 [place] Work Phone: Hematology/Oncology Comment on above: Iron deficiency anem ia due to chronic blood loss (Primary Dx) Start: 12-30-2024 End: 12-30-2024 ambulatory Chair 11 Christa Work Phone: Hematology/Oncology Comment on above: Iron deficiency anem ia due to chronic blood loss (Primary Dx) Start: 12-22-2024 End: 12-23-2024 ambulatory Chair 11 [place] Work Phone: Hematology/Oncology Comment on above: Iron deficiency anem ia due to chronic blood loss (Primary Dx) Start: 12-15-2024 End: 12-15-2024 ambulatory [facility] Start: 12-14-2024 End: 12-14-2024 Office outpatient visit 25 minutes Katie WALDENC Work Phone: Hematology/Oncology Comment on above: Iron deficiency anem ia due to chronic blood loss (Primary Dx); Anemia, unspecified type; Chronic kidney disease, stage 1; Ductal carcinoma in situ (DCIS) of right breast; Malignant neoplasm of upper lobe of left lung (HCC) Start: 12-14-2024 End: 12-14-2024 ambulatory JASMYNE CASILLAS Facility:[facility] Start: 12-07-2024 End: 12-07-2024 Office outpatient visit 40 minutes Katie WALDENC Work Phone: Hematology/Oncology Comment on above: Malignant neoplasm o f upper lobe of left lung (HCC) (Primary Dx); Dysuria; Anemia, unspecified type; Ductal carcinoma in situ (DCIS) of right breast Start: 12-07-2024 End: 12-07-2024 ambulatory JASMYNE CASILLAS Facility:[facility] Start: 11-30-2024 End: 12-01-2024 Telephone encounter Gia Clayton RN Hematology/Oncology Comment on above: Hgb low Start: 11-30-2024 End: 11-30-2024 [facility] Start: 11-30-2024 End: 11-30-2024 Subsequent hospital visit by physician Jasmyne Casillas SWING FRAME GRINDER OPERATOR - LAMBSKIN TRIMMER Work Phone: [facility] Comment on above: Normocytic anemia; Other iron deficiency anemia; Stage 3 chronic kidney disease, unspecified whether stage 3a or 3b CKD (HCC); Controlled type 2 diabetes mellitus without complication, without long-term current use of insulin (HCC) Start: 11-20-2024 End: 11-20-2024 ambulatory [facility] Start: 11-19-2024 End: 11-19-2024 ambulatory [facility] Start: 11-05-2024 End: 11-05-2024 Bamboo flowsheet Sunitha Durand MD Work Phone: [facility] Start: 11-05-2024 End: 11-05-2024 Bamboo flowsheet Sunitha Durand MD Work Phone: [facility] Start: 11-05-2024 End: 11-05-2024 ambulatory SUNITHA DURAND Not Available Start: 11-05-2024 End: 11-05-2024 Office outpatient visit 15 minutes Sunitha Durand MD Work Phone: [facility] Comment on above: Seborrheic keratosis (Primary Dx); Lentigines; Angioma of skin; Capillary angioma; Seborrheic keratosis, inflamed Start: 10-26-2024 Non-patient / Non-visit Jasmyne Casillas APRN Work Phone: [facility] Physician [facility] Work Phone: Start: 10-26-2024 End: 10-26-2024 Admission to same day surgery center Jasmyne Casillas APRN Work Phone: [facility] Work Phone: Start: 10-26-2024 End: 10-26-2024 ambulatory Jasmyne Casillas APRN Work Phone: [facility] Work Phone: Start: 10-21-2024 End: 10-21-2024 ambulatory Jasmyne Casillas APRN Work Phone: [facility] Work Phone: Start: 10-21-2024 End: 10-21-2024 Patient encounter procedure Jasmyne Casillas APRN Work Phone: [facility] Physician [facility] Work Phone: Start: 10-21-2024 End: 10-21-2024 Patient encounter procedure Jasmyne Casillas APRN Work Phone: [facility] [place] [facility] Start: 10-21-2024 End: 10-21-2024 ambulatory Jasmyne Casillas SWING FRAME GRINDER OPERATOR Work Phone: [facility] Work Phone: Start: 10-20-2024 End: 10-20-2024 ambulatory SHARLA [facility] Start: 10-01-2024 End: 10-01-2024 ambulatory Jasmyne Mccann Sonja SWING FRAME GRINDER OPERATOR Work Phone: [facility] Work Phone: Start: 10-01-2024 End: 10-01-2024 Patient encounter procedure Jasmyne Casillas SWING FRAME GRINDER OPERATOR Work Phone: [facility] Physician [facility] Work Phone: Start: 09-21-2024 End: 09-21-2024 ambulatory JASMYNE Ramy SONJA Facility:[facility] Start: 09-21-2024 End: 09-21-2024 Office outpatient visit 25 minutes Bryanna Adan MD Work Phone: Hematology/Oncology Comment on above: Malignant neoplasm o f upper lobe of left lung (HCC) (Primary Dx); Ductal carcinoma in situ (DCIS) of right breast; Age-related osteoporosis without current pathological fracture Start: 09-09-2024 End: 09-09-2024 ambulatory Jasmyne Casillas SWING FRAME GRINDER OPERATOR Work Phone: [facility] Work Phone: Start: 09-09-2024 End: 09-09-2024 Patient encounter procedure Jasmyne Sonja SWING FRAME GRINDER OPERATOR Work Phone: [facility] Physician [facility] Work Phone: Start: 09-09-2024 End: 09-09-2024 ambulatory Jasmyne Mccann Sonja SWING FRAME GRINDER OPERATOR Work Phone: [facility] Work Phone: Start: 09-09-2024 End: 09-09-2024 Patient encounter procedure Jasmyne Sonja SWING FRAME GRINDER OPERATOR Work Phone: [facility] Physician [facility] Work Phone: Start: 08-26-2024 End: 08-26-2024 ambulatory Jasmyne Casillas SWING FRAME GRINDER OPERATOR Work Phone: [facility] Work Phone: Start: 08-26-2024 End: 08-26-2024 Patient encounter procedure Jasmyne Casillas SWING FRAME GRINDER OPERATOR Work Phone: [facility] Physician [facility] Work Phone: Start: 08-20-2024 End: 08-20-2024 ambulatory KOSTA Hemphill ITZDARELLRENETTA Not Available Start: 08-20-2024 End: 08-20-2024 Office outpatient visit 15 minutes Kosta Joby Itzkofrancistz DO Work Phone: [facility] Comment on above: Ductal carcinoma in situ (DCIS) of right breast (Primary Dx) Start: 08-19-2024 End: 08-19-2024 ambulatory Jasmyne Casillas SWING FRAME GRINDER OPERATOR Work Phone: [facility] Work Phone: Start: 08-19-2024 End: 08-19-2024 Patient encounter procedure Jasmyne Casillas SWING FRAME GRINDER OPERATOR Work Phone: [facility] Physician [facility] Work Phone: Start: 08-18-2024 End: 08-18-2024 Refill Bryanna Adan MD Work Phone: Hematology/Oncology Comment on above: Refill Request Start: 08-17-2024 End: 08-17-2024 Office outpatient visit 15 minutes Bryanna Adan MD Work Phone: Hematology/Oncology Comment on above: Malignant neoplasm o f upper lobe of left lung (HCC) (Primary Dx); Ductal carcinoma in situ (DCIS) of right breast; Age-related osteoporosis without current pathological fracture Start: 08-17-2024 End: 08-17-2024 ambulatory JASMYNE CASILLAS Facility:[facility] Start: 08-13-2024 End: 08-13-2024 Follow-up encounter Bryanna Adan MD Work Phone: Hematology/Oncology Start: 08-10-2024 End: 08-10-2024 ambulatory JASMYNE Ramy SONJA Facility:[facility] Start: 08-10-2024 End: 08-10-2024 Subsequent hospital visit by physician Arrival Time Radiology Work Phone: [facility] Start: 07-29-2024 Non-patient / Non-visit Jasmyne Sonja GRIFFITHN Work Phone: [facility] Physician [facility] Work Phone: Start: 07-28-2024 End: 08-02-2024 Evaluation and management of inpatient Jasmyne Sonja SHAH Work Phone: [facility] [place] [facility] Work Phone: Start: 07-28-2024 Non-patient / Non-visit Jasmyne Sonja GRIFFITHN Work Phone: [facility] Physician [facility] Work Phone: Start: 07-27-2024 End: 07-28-2024 Admission to same day surgery center Jasmyne Sonja SWING FRAME GRINDER OPERATOR Work Phone: [facility]-Surgery [facility] [place] Start: 07-27-2024 End: 07-28-2024 ambulatory Jasmyne Mccann Sonja SWING FRAME GRINDER OPERATOR Work Phone: [facility] Work Phone: Start: 07-27-2024 Non-patient / Non-visit Jasmyne Casillas APRN Work Phone: [facility] Physician [facility] Work Phone: Start: 07-17-2024 End: 07-17-2024 ambulatory Jasmyne Mccann Sonja SWING FRAME GRINDER OPERATOR Work Phone: [facility] Work Phone: Start: 07-17-2024 End: 07-17-2024 Patient encounter procedure Jasmyne Sonja SWING FRAME GRINDER OPERATOR Work Phone: [facility] Physician [facility] Work Phone: Start: 07-16-2024 End: 07-16-2024 Discharged Recurring Jasmyne Casillas SWING FRAME GRINDER OPERATOR Work Phone: [facility]-Physical Therapy [place] Start: 07-16-2024 Registered Recurring Jasmynestephen prasad SWING FRAME GRINDER OPERATOR Work Phone: [facility]-Physical Therapy [place] Start: 07-16-2024 End: 07-16-2024 ambulatory Jasmyne Mccann Sonja SWING FRAME GRINDER OPERATOR Work Phone: [facility] Work Phone: Start: 07-16-2024 Encounter for other preprocedural examination Sridevi Tovar II [facility] Start: 07-16-2024 End: 07-16-2024 ambulatory Jasmyne Ramy Sonja SWING FRAME GRINDER OPERATOR Work Phone: [facility] Work Phone: Start: 07-16-2024 End: 07-16-2024 Patient encounter procedure Jasmyne Casillas SWING FRAME GRINDER OPERATOR Work Phone: [facility] Work Phone: Start: 07-16-2024 End: 07-16-2024 Patient encounter procedure Jasmyne Sonja SWING FRAME GRINDER OPERATOR Work Phone: [facility] [place] Start: 07-16-2024 End: 07-16-2024 ambulatory Jasmyne Ramy Sonja SWING FRAME GRINDER OPERATOR Work Phone: [facility] Work Phone: Start: 07-13-2024 End: 07-13-2024 Patient encounter procedure Jasmyne Sonja SWING FRAME GRINDER OPERATOR Work Phone: [facility] Work Phone: Start: 07-13-2024 End: 07-13-2024 ambulatory Jasmyne Ramy Sonja SWING FRAME GRINDER OPERATOR Work Phone: [facility] Work Phone: Start: 06-15-2024 End: 06-15-2024 ambulatory Domonique Taylor Facility:[facility] Start: 06-15-2024 End: 06-15-2024 Patient encounter procedure Jasmyne Sonja SWING FRAME GRINDER OPERATOR Work Phone: [facility] [place] Work Phone: Start: 06-10-2024 End: 06-10-2024 Patient encounter procedure Jasmyne Casillas APRN Work Phone: [facility] [place] Work Phone: Start: 06-10-2024 End: 06-10-2024 ambulatory Sridevi Tovar II Facility:[facility] Start: 06-08-2024 End: 06-08-2024 Patient encounter procedure [facility] Provider [facility] inic Department Start: 06-08-2024 End: 06-08-2024 Telephone encounter Gia Clayton RN Hematology/Oncology Comment on above: Medical clearance fo r L total knee replacement Start: 06-02-2024 End: 06-02-2024 Patient encounter procedure Jasmyne Casillas APRN Work Phone: [facility] Work Phone: Start: 05-26-2024 End: 05-26-2024 ambulatory Eri Patterson [facility] Work Phone: Hematology/Oncology Start: 05-25-2024 End: 05-25-2024 Office outpatient visit 15 minutes Bryanna Adan MD Work Phone: Hematology/Oncology Comment on above: Malignant neoplasm o f upper lobe of left lung (HCC) (Primary Dx); Ductal carcinoma in situ (DCIS) of right breast Start: 05-25-2024 End: 05-25-2024 ambulatory JASMYNE CASILLAS Facility:[facility] Start: 05-19-2024 End: 05-19-2024 ambulatory JASMYNE CASILLAS Facility:[facility] Start: 05-19-2024 End: 05-19-2024 Subsequent hospital visit by physician Arrival Time Radiology Work Phone: Radiology [facility] Start: 05-11-2024 End: 05-11-2024 [facility] Start: 05-11-2024 End: 05-11-2024 Subsequent hospital visit by physician Jasmyne Casillas SWING FRAME GRINDER OPERATOR - LAMBSKIN TRIMMER Work Phone: [facility] Laboratory Comment on above: Hypercholesterolemia ; Acquired hypothyroidism; Paroxysmal atrial fibrillation (HCC); PMR (polymyalgia rheumatica) (HCC) Start: 05-06-2024 End: 05-06-2024 ambulatory ALYSSA Casillas Work Phone: [facility] Work Phone: Start: 05-06-2024 End: 05-06-2024 Patient encounter procedure SWING FRAME GRINDER OPERATORCali Casillas Work Phone: [facility] Work Phone: Start: 04-28-2024 End: 04-30-2024 ambulatory BRYANNA ADAN [facility] Start: 04-28-2024 End: 04-30-2024 Subsequent hospital visit by physician Sameer Dyer Radiologist [facility] Comment on above: Ductal carcinoma in situ of right breast Start: 04-21-2024 Non-patient / Non-visit ALYSSA Casillas Work Phone: [facility] Work Phone: Start: 04-21-2024 End: 04-21-2024 Admission to same day surgery center ALYSSA Casillas Work Phone: [facility]ive [facility] Work Phone: Start: 04-21-2024 End: 04-21-2024 ambulatory ALYSSA Casillas Work Phone: [facility] [facility] Work Phone: Start: 04-07-2024 End: 04-07-2024 ambulatory [facility] Start: 04-01-2024 End: 04-01-2024 ambulatory ALYSSA Casillas Work Phone: [facility] Work Phone: Start: 04-01-2024 End: 04-01-2024 Patient encounter procedure ALYSSA Casillas Work Phone: [facility] Work Phone: Start: 03-31-2024 End: 03-31-2024 ambulatory [facility] Start: 03-25-2024 End: 03-25-2024 ambulatory [facility] Start: 03-25-2024 End: 03-25-2024 Subsequent hospital visit by physician [facility] Schedule [facility] Comment on above: Obstructive sleep ap bernice syndrome Start: 03-23-2024 End: 03-23-2024 ambulatory SWING FRAME GRINDER OPERATORCali Casillas Work Phone: [facility] Work Phone: Start: 03-23-2024 End: 03-23-2024 Patient encounter procedure ALYSSA Casillas Work Phone: [facility] Work Phone: Start: 01-08-2024 End: 01-08-2024 ambulatory ALYSSA Casillas Work Phone: [facility] Work Phone: Start: 01-08-2024 End: 01-08-2024 Patient encounter procedure SWING FRAME GRINDER OPERATORCali Casillas Work Phone: [facility] Work Phone: Start: 12-12-2023 End: 12-12-2023 ambulatory ALYSSA Casillas Work Phone: [facility] Work Phone: Start: 12-12-2023 End: 12-12-2023 Patient encounter procedure ALYSSA Medley Sonja Work Phone: [facility] Work Phone: Start: 11-26-2023 End: 11-26-2023 ambulatory Bryanna Adan MD Work Phone: Hematology/Oncology Comment on above: Malignant neoplasm o f upper lobe of left lung (HCC) (Primary Dx); Ductal carcinoma in situ (DCIS) of right breast; Age-related osteoporosis without current pathological fracture Start: 11-26-2023 End: 11-26-2023 Patient encounter procedure Bryanna Adan MD Work Phone: Hematology/Oncology Start: 11-19-2023 End: 11-19-2023 Subsequent hospital visit by physician Arrival Time Radiology Work Phone: Radiology Pet CT Start: 10-04-2023 Refill Bryanna Adan MD Work Phone: Hematology/Oncology Comment on above: Refill Request Start: 09-25-2023 Telephone encounter Louisa stone SWING FRAME GRINDER OPERATOR.LAMBSKIN TRIMMER Work Phone: Endocrinology Comment on above: Opened In Error (Ope howard in error/) Start: 09-12-2023 End: 09-12-2023 ambulatory [facility] Work Phone: Start: 09-12-2023 End: 09-12-2023 Patient encounter procedure [facility] Work Phone: Start: 09-04-2023 End: 09-04-2023 Patient encounter procedure [facility] Gastroenterology Work Phone: Start: 09-03-2023 End: 09-03-2023 Patient encounter procedure [facility] Work Phone: Start: 08-15-2023 Preoperative state Kosta Rubin kowitz DO Work Phone: [facility] Start: 08-15-2023 End: 08-15-2023 Office outpatient visit 25 minutes Kosta H Itzkowitz DO Work Phone: [facility] Comment on above: Ductal carcinoma in situ (DCIS) of right breast (Primary Dx) Start: 08-14-2023 Chart abstracting Kosta H Itzkowitz DO Work Phone: [facility] Start: 08-12-2023 End: 08-12-2023 ambulatory Eugene Mims Other [facility] Other Start: 08-12-2023 Office outpatient vi sit 15 minutes Eugene Mims [facility] [place] Start: 07-29-2023 (Procedure) Rosina Mims [facility] Start: 07-29-2023 End: 07-29-2023 ambulatory Eugene Mims Other [facility] Other Start: 07-17-2023 End: 07-17-2023 ambulatory Eugene Mims Other [facility] Other Start: 07-17-2023 Office outpatient vi sit 25 minutes Eugene Mims [facility] [place] Start: 07-11-2023 End: 07-11-2023 ambulatory Sridevi Tovar II Other [facility] Other Start: 07-11-2023 Office outpatient vi sit 15 minutes Sridevi Martínezle II [facility] Start: 07-11-2023 End: 07-11-2023 Patient encounter procedure [facility] Work Phone: Start: 07-10-2023 (Procedure) Rosina Mims [facility] Start: 07-10-2023 End: 07-10-2023 ambulatory Eugene Mims Other [facility] Other Start: 06-19-2023 End: 06-19-2023 ambulatory Eugene Mims Other [facility] Other Start: 06-19-2023 Office outpatient vi sit 25 minutes Eugene Mims [facility] [place] Start: 06-12-2023 (Procedure) Rosina Mims [facility] Start: 06-12-2023 End: 06-12-2023 ambulatory Eugene Johnstoner Other [facility] Other Start: 05-30-2023 End: 05-30-2023 ambulatory Eugene Johnstoner Other [facility] Other Start: 05-30-2023 Office outpatient ne w 45 minutes Eugene Mims [facility] [place] Start: 05-21-2023 End: 05-21-2023 Subsequent hospital visit by physician Arrival Time Radiology Work Phone: Radiology Pet CT Start: 05-15-2023 Office outpatient vi sit 15 minutes Sridevi Converse II [facility] Start: 05-15-2023 End: 05-15-2023 Orders Only Bryanna Adan MD Work Phone: Hematology/Oncology Comment on above: Malignant neoplasm o f upper lobe of left lung (HCC) (Primary Dx) Start: 04-24-2023 Telephone encounter Gia Aparicio Hematology/Oncology Start: 04-11-2023 End: 04-11-2023 ambulatory Sridevi Converse II Other [facility] Other Start: 04-11-2023 Office outpatient vi sit 25 minutes Sridevi Converse II [facility] Start: 04-08-2023 Telephone encounter Gia Aparicio Hematology/Oncology Comment on above: Orders Start: 04-03-2023 End: 04-03-2023 Admission to same day surgery center SWING FRAME GRINDER OPERATORCali Casillas Work Phone: [facility] Work Phone: Start: 04-03-2023 End: 04-03-2023 ambulatory ALYSSA Casillas Work Phone: [facility] Work Phone: Start: 03-13-2023 End: 03-13-2023 ambulatory Taz Pierre Other [facility] Other Start: 03-13-2023 Office outpatient vi sit 15 minutes Taz Pierre [facility] Start: 01-16-2023 ambulatory Shaniqua Ellsworth MD Facility[facility] Start: 01-16-2023 End: 01-16-2023 Admission to same day surgery center SWING FRAME GRINDER OPERATORCali Casillas Work Phone: [facility] Work Phone: Start: 01-16-2023 End: 01-16-2023 ambulatory ALYSSA Casillas Work Phone: [facility] Work Phone: Start: 01-15-2023 End: 01-15-2023 ambulatory Bryanna Adan MD Work Phone: Hematology/Oncology Comment on above: Malignant neoplasm o f upper lobe of left lung (HCC) (Primary Dx); History of ductal carcinoma in situ (DCIS) of breast Start: 01-15-2023 End: 01-15-2023 Patient encounter procedure Bryanna Adan MD Work Phone: [facility] Start: 01-10-2023 End: 01-10-2023 Subsequent hospital visit by physician Arrival Time Radiology Work Phone: Radiology Pet CT Start: 12-19-2022 End: 12-19-2022 ambulatory Taz Pierre Other [facility] Other Start: 12-19-2022 Office outpatient vi sit 25 minutes Taz Pierre [facility] Start: 12-07-2022 End: 12-07-2022 ambulatory Sridevi Converse II Other [facility] Other Start: 12-07-2022 Office outpatient ne w 45 minutes Sridevi Guy II [facility] Start: 12-07-2022 End: 12-07-2022 Patient encounter procedure ALYSSA Casillas Work Phone: [facility] Start: 10-18-2022 End: 10-19-[address] DOCTOR NOLASCO Facility:[facility] Start: 10-16-2022 End: 10-17-2022 ambulatory SHARLA DE OLIVEIRA Facility:[facility] Start: 10-01-2022 End: 10-01-2022 Admission to same day surgery center Bryanna Adan MD Work Phone: Hematology/Oncology Comment on above: Malignant neoplasm o f upper lobe of left lung (HCC) (Primary Dx); Chest wall pain following surgery; History of ductal carcinoma in situ (DCIS) of breast Start: 10-01-2022 End: 10-01-2022 Patient encounter procedure Bryanna Adan MD Work Phone: [facility] Start: 09-17-2022 End: 09-17-2022 ambulatory Taz gInacio Other [facility] Other Start: 09-17-2022 Office outpatient vi sit 15 minutes Taz Pierre [facility] Gastro[facility] Start: 08-13-2022 End: 08-13-2022 ambulatory SWING FRAME GRINDER OPERATORCali Casillas Work Phone: [facility] Work Phone: Start: 08-13-2022 End: 08-13-2022 Patient encounter procedure ALYSSA Casillas Work Phone: [facility] [address] Work Phone: Start: 07-23-2022 End: 07-23-2022 Subsequent hospital visit by physician [facility] Pulmonary Function Room [facility] Comment on above: Exertional dyspnea Start: 07-13-2022 End: 07-13-2022 Patient encounter procedure Lior Whitfield PA-C Work Phone: Cardiothoracic Comment on above: Adenocarcinoma of le ft lung, stage 1 (HCC) (Primary Dx) Start: 07-12-2022 End: 07-12-2022 Subsequent hospital visit by physician Arrival Time Radiology Work Phone: Radiology Pet CT Comment on above: Post-operative state [Z98.890] Start: 07-03-2022 End: 07-03-2022 ambulatory Bryanna Adan MD Work Phone: Hematology/Oncology Comment on above: Malignant neoplasm o f upper lobe of left lung (HCC) (Primary Dx) Start: 07-03-2022 End: 07-03-2022 Patient encounter procedure Bryanna Adan MD Work Phone: [facility] Start: 06-26-2022 Telephone encounter Mitzi croft MD Work Phone: Cardiothoracic Comment on above: Appointment Start: 06-22-2022 Orders Only [place] [facility] Work Phone: Cardiothoracic Comment on above: Post-operative state (Primary Dx) Start: 06-19-2022 ambulatory Mitzi Amaral MD Work Phone: Thoracic Surgery Comment on above: Final Pathology Repo rt Start: 06-19-2022 E-mail encounter fro m caregiver Mitzi Amaral MD Work Phone: [facility] Start: 06-16-2022 Encounter for prepro cedural laboratory examination DR DOCTOR NOLASCO [facility] Start: 06-14-2022 Follow-up encounter Mitzi croft MD Work Phone: Thoracic Surgery Comment on above: Hospital discharge f ollow-up (Primary Dx) Start: 06-13-2022 End: 06-24-2022 Evaluation and management of inpatient MITZI AMARAL Facility:[facility] Start: 06-11-2022 Telephone encounter Dileep Luna MD Work Phone: [facility] [place] Comment on above: [facility] Start: 06-11-2022 End: 06-12-[address] DOCTOR NOLASCO Facility:[facility] Start: 06-11-2022 End: 06-12-2022 Encounter for preprocedural laboratory examination DR DOCTOR NOLASCO Facility:[facility] Start: 06-01-2022 Telephone encounter Natasha Aparicio Pre Anesthesia Comment on above: Follow Up Start: 06-01-2022 End: 06-01-2022 Patient encounter procedure Mitzi Amaral MD Work Phone: Thoracic Surgery Comment on above: Malignant neoplasm o f upper lobe of left lung (HCC) (Primary Dx) Start: 06-01-2022 ambulatory MITZI AMARAL Facility: [facility] Start: 06-01-2022 End: 06-01-2022 Patient encounter status [facility] Work Phone: [facility] Start: 06-01-2022 End: 06-01-2022 Subsequent hospital visit by physician [facility] Work Phone: [phone] [place] [address] Comment on above: Preoperative testing [Z01.818] Bilateral carotid ar herber stenosis [I65.23] Start: 05-31-2022 Telephone encounter Daina Lora [facility] Comment on above: Appointment (Confirm ed appt with patient) Start: 05-30-2022 End: 05-31-2022 ambulatory MITZI AMARAL Facility:[facility] Start: 05-30-2022 Encounter for other preprocedural examination JASMYNE [facility] Start: 05-30-2022 End: 05-30-2022 Admission to establishment [address] Other Phone: [facility] Start: 05-30-2022 End: 05-30-[address] Other Phone: Pre Anesthesia Comment on above: Pre-op examination ( Primary Dx); Cerebrovascular accident (CVA), unspecified mechanism (HCC); Former smoker; JENNIFER (obstructive sleep apnea); Mild persistent asthma without complication; Chronic congestive heart failure, unspecified heart failure type (HCC); Atherosclerosis of elem coronary artery of elem heart without angina pectoris; Hypercholesteremia; Paroxysmal atrial fibrillation (HCC); Hx of aortic valve repair; Mitral valve problem; Chronic kidney disease, unspecified CKD stage; Ductal carcinoma in situ (DCIS) of right breast Start: 05-30-2022 End: 05-30-2022 Preprocedural examination done [address] Other Phone: Pre Anesthesia Start: 05-30-2022 End: 05-30-2022 ambulatory Pulm Rej Work Phone: Pulmonary Medicine Comment on above: Spirometry Start: 05-30-2022 End: 05-30-2022 Patient encounter procedure Pulm Lab [facility] Rej Work Phone: DEANDRA NAIK [facility] Start: 05-30-2022 End: 05-30-2022 Patient encounter status Pulm Rej Work Phone: Pulmonary Medicine Start: 05-23-2022 Telephone encounter Mitzi croft MD Work Phone: Thoracic Surgery Comment on above: Patient Update Orders Start: 05-17-2022 Telephone encounter Jennifer pedro RN Work Phone: Hematology/Oncology Comment on above: Care Coordination (V accine Question) Start: 05-16-2022 Admission to [facility] Mitzi Amaral MD Work Phone: Thoracic Surgery Comment on above: Upcoming Lung Surger y Start: 05-16-2022 E-mail encounter fro m caregiver Mitzi Amaral MD Work Phone: [facility] Start: 05-16-2022 End: 05-16-2022 ambulatory MITZI AMARAL Facility:[facility] Start: 05-16-2022 Encounter for other preprocedural examination [facility] Start: 05-16-2022 Encounter for prepro cedural cardiovascular examination [facility] Start: 05-16-2022 End: 05-16-2022 Patient encounter procedure Mitzi Amaral MD Work Phone: Thoracic Surgery Comment on above: Preoperative testing (Primary Dx); Bilateral carotid artery stenosis; Malignant neoplasm of upper lobe of left lung (HCC); Encounter for preoperative vascular examination; Shortness of breath Start: 05-16-2022 End: 05-16-2022 Patient encounter status Mitzi Amaral MD Work Phone: Thoracic Surgery Start: 05-10-2022 Telephone encounter Bryanna lomeli MD Work Phone: Cancer [facility] Comment on above: Appointment Start: 05-10-2022 End: 05-10-2022 ambulatory Bryanna Adan MD Work Phone: Hematology/Oncology Comment on above: Malignant neoplasm o f upper lobe of left lung (HCC) (Primary Dx) Start: 05-10-2022 End: 05-10-2022 Patient encounter procedure Bryanna Adan MD Work Phone: [facility] Start: 05-01-2022 Telephone encounter Gia Aparicio Hematology/Oncology Comment on above: Orders Start: 04-27-2022 Telephone encounter Janneth Bhatti RN Work Phone: Hematology/Oncology Comment on above: Patient Update (Biop sy results); Results Start: 04-25-2022 End: 04-28-2022 ambulatory JASMYNE CASILLAS [facility] Start: 04-25-2022 End: 04-28-2022 ambulatory SHANIQUA THAKKARADDA [facility] Start: 04-23-2022 End: 04-23-2022 Subsequent hospital visit by physician Jasmyne Casillas SWING FRAME GRINDER OPERATOR - LAMBSKIN TRIMMER Work Phone: [facility] Comment on above: PMR (polymyalgia rhe umatica) (HCC); Paroxysmal atrial fibrillation (HCC); Secondary hyperparathyroidism (HCC); Acquired hypothyroidism; Hypercholesterolemia Start: 04-18-2022 End: 04-18-2022 ambulatory Linda Lobo Other [facility] Other Start: 04-18-2022 Office outpatient vi sit 15 minutes Linda Lobo [facility] Start: 04-16-2022 Telephone encounter Jennifer Welch Hematology/Oncology Comment on above: Care Coordination (P ulmonolgy Follow Up) Start: 04-12-2022 End: 04-12-2022 ambulatory Bryanna Adan MD Work Phone: Hematology/Oncology Comment on above: Mass of upper lobe o f left lung (Primary Dx); Ductal carcinoma in situ (DCIS) of right breast; Need for influenza vaccination Start: 04-12-2022 End: 04-12-2022 Patient encounter procedure Bryanna Adan MD Work Phone: [facility] Start: 04-11-2022 [facility] Start: 04-11-2022 End: 04-13-2022 Subsequent hospital visit by physician [facility] Pet Scan Room At [facility] PET Scan Comment on above: Lung nodule seen on imaging study Start: 04-10-2022 Telephone encounter Gia Aparicio Hematology/Oncology Comment on above: Appointment Start: 04-05-2022 End: 04-07-2022 Subsequent hospital visit by physician [facility] Mammography Room [facility] Comment on above: Stage 3 chronic kidn ey disease, unspecified whether stage 3a or 3b CKD (HCC) Intraductal carcinom a in situ of right breast Start: 04-04-2022 End: 04-06-2022 Subsequent hospital visit by physician Sameer Additional Xray At [facility] Radiology Comment on above: Decreased diffusion capacity Start: 04-04-2022 End: 04-06-2022 Subsequent hospital visit by physician Sameer Cat Scan Room [facility] CT Scan Comment on above: Decreased diffusion capacity Lung nodule seen on imaging study Start: 03-28-2022 End: 03-28-2022 ambulatory Taz Pierre Other [facility] Other Start: 03-28-2022 Patient encounter procedure Taz Pierre [facility] Gastroenterology Start: 03-20-2022 End: 03-20-2022 ambulatory Linda Lobo Other [facility] Other Start: 03-20-2022 Office outpatient ne w 30 minutes Linda Lobo [facility] Orthopedics Start: 02-20-2022 Telephone encounter Babatunde Pizarro MD Work Phone: Radiation Oncology Comment on above: Future Appointment; Orders Start: 02-09-2022 Telephone encounter Babatunde Pizarro MD Work Phone: Cancer [facility]ts Comment on above: Patient Update Start: 02-08-2022 End: 02-08-2022 Patient encounter procedure Babatunde Pizarro MD Work Phone: Radiation Oncology Comment on above: Ductal carcinoma in situ (DCIS) of right breast (Primary Dx) Start: 02-01-2022 End: 02-01-2022 Subsequent hospital visit by physician Jasmyne Casillas APRN - LAMBSKIN TRIMMER Work Phone: [facility] Comment on above: Stiffness of finger joint of right hand Start: 12-27-2021 End: 12-27-2021 ambulatory Taz Pierre Other [facility] Other Start: 12-27-2021 Office outpatient ne w 45 minutes Taz Pierre [facility] Gastroenterology Start: 12-27-2021 Telephone encounter Taz baird [facility] Gastroenterology Start: 11-08-2021 End: 11-09-[address] KENDY FERRARI Facility:[facility] Start: 10-11-2021 End: 10-11-2021 Patient encounter procedure Vahe Fredy LLANOS [facility] Start: 10-04-2021 End: 10-06-2021 Subsequent hospital visit by physician [facility] Echo Room [facility] ECHO Comment on above: Other form of dyspne a Kidney stones Start: 2021 End: 2021 Subsequent hospital visit by physician Jasmyne Casillas SWING FRAME GRINDER OPERATOR - LAMBSKIN TRIMMER Work Phone: [facility] Comment on above: Paroxysmal atrial fi brillation (HCC); Encounter for monitoring diuretic therapy Start: 02-02-2021 End: 02-04-2021 Subsequent hospital visit by physician Sameer Dyer Radiologist [facility] Laboratory Comment on above: Paroxysmal atrial fi brillation (HCC); Encounter for monitoring diuretic therapy; 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 Start: 01-06-2021 End: 01-09-2021 Evaluation and management of inpatient PHYSICIAN PIPPA Facility:[facility] Start: 01-04-2021 End: 01-05-2021 ambulatory SHARLA DE OLIVEIRA Facility:[facility] Start: 12-13-2020 End: 12-13-2020 Subsequent hospital visit by physician Jasmyne Casillas SWING FRAME GRINDER OPERATOR - LAMBSKIN TRIMMER Work Phone: [facility] Comment on above: Acquired hypothyroid ism Start: 11-14-2020 End: 11-16-2020 Subsequent hospital visit by physician Sameer Dig Rad 1 [facility] Radiology Comment on above: Chronic pain of left ankle; Arthritis of left ankle Start: 08-22-2020 End: 08-22-2020 Subsequent hospital visit by physician Jasmyne Casillas [facility] Laboratory Comment on above: JIMMIE (acute kidney in jury) (HCC) Start: 07-25-2020 End: 07-27-2020 Subsequent hospital visit by physician Favian Ultrasound Room [facility] Ultrasound Comment on above: HX: breast cancer; Pelvic lymphadenopathy; Enlarged lymph nodes Start: 06-17-2020 End: 06-17-2020 Patient encounter procedure Kosta Keene -Pre-Surgica l Testing Start: 06-13-2020 End: 06-13-2020 Patient encounter procedure Kosta Keene -Pre-Surgica l Testing Start: 06-13-2020 End: 06-13-2020 Subsequent hospital visit by physician Jasmyne Casillas [facility] Laboratory Comment on above: JIMMIE (acute kidney in jury) ([facility]) Start: 06-07-2020 End: 06-07-2020 Patient encounter procedure Kosta Leivatroy -Lab Strub R d Start: 06-06-2020 End: 06-06-2020 Admission to day surgery Kosta Mechellerenetta -Ultrasound Cnt r for Breast Car Start: 06-02-2020 End: 06-02-2020 Patient encounter procedure Kosta Tk -Ultrasound Cntr for Breast Car Start: 06-01-2020 End: 06-01-2020 Patient encounter [facility] Start: 05-25-2020 End: 05-25-2020 Admission to day surgery [facility] Start: 05-05-2020 End: 05-07-2020 Subsequent hospital visit by physician [facility] Ultrasound Room [facility] Ultrasound Comment on above: Abnormal kidney func tion Breast pain Start: 11-26-2019 End: 11-28-2019 Subsequent hospital visit by physician [facility] Mammography Room [facility] Mammography Comment on above: Breast pain, right Start: 11-13-2019 End: 11-13-2019 Subsequent hospital visit by physician Jasmyne Casillas [facility] Laboratory Start: 11-13-2019 End: 11-13-2019 Subsequent hospital visit by physician [facility] Covid19 Pat Screening Schedule [facility] PRE ADMIT Comment on above: Arrived Start: 08-25-2019 End: 08-25-2019 Subsequent hospital visit by physician Jasmyne Casillas [facility] Laboratory Comment on above: PMR (polymyalgia rhe umatica) ([facility]) Start: 06-08-2019 End: 06-08-2019 Subsequent hospital visit by physician Jasmyne Casillas SWING FRAME GRINDER OPERATOR - LAMBSKIN TRIMMER Work Phone: [facility] Comment on above: Acute pain of both s houlders; Myalgia; Acute pain of both hips; Paroxysmal atrial fibrillation ([facility]); Coronary artery disease involving elem heart without angina pectoris, unspecified vessel or lesion type; Mild persistent asthma, unspecified whether complicated; Vitamin D deficiency Start: 05-08-2019 End: 05-10-2019 Subsequent hospital visit by physician Sameer Dexa Room At [facility] Dexa Scan Comment on above: Encounter for clarice kenney to assess osteoporosis; Asymptomatic age-related postmenopausal state Breast cancer screen ing by mammogram Start: 02-07-2018 Preoperative state SWING FRAME GRINDER OPERATOR Jasmyne Casillas Work Phone: [facility] Comment on above: Problem List clean-u p per request of Phys. EHR Cmte Procedures Date Procedure Procedure Detail Performing Clinician Start: 03-26-2025 Exc b9 lesion mrgn xcp sk tg f/e/e/n/l/m 0.5cm/< Jovan Lema DO Work Phone: Start: 03-09-2025 End: 03-09-2025 Ophth medical xm&eval comprhnsv estab pt 1/> Left posterior capsular opacification Jovan Lema DO Work Phone: Comment on above: Left posterior capsular opacification (P rimary Dx); Dry eyes; Blepharitis of upper and lower eyelids of both eyes, unspecified type; Cyst of left lower eyelid; Pain, eyelid Start: 02-24-2025 Computed tomography of abdomen and pelvis with contrast Jasmyne Casillas APRN Work Phone: Start: 02-15-2025 Gluc bld gluc mntr dev cleared fda spec home use [facility] Provider Start: 11-30-2024 Comprehensive metabolic panel Jasmyne ruiz SWING FRAME GRINDER OPERATOR - LAMBSKIN TRIMMER Work Phone: Start: 11-30-2024 Urine albumin quantitative Jasmyne Casillas SWING FRAME GRINDER OPERATOR - LAMBSKIN TRIMMER Work Phone: Start: 11-30-2024 Blood count hemoglobin Jasmyne Casillas SWING FRAME GRINDER OPERATOR - LAMBSKIN TRIMMER Work Phone: Start: 11-05-2024 CRYOTHERAPY SKIN LESION Sunitha Durand MD Work Phone: Start: 10-26-2024 Esophagogastroduodenoscopy Jasmyne JOHN Work Phone: Start: 10-21-2024 Plain X-ray of left femur Jasmyne WHITNEY RN Work Phone: Start: 10-21-2024 Plain X-ray of left tibia and left fibula Jasmyne Casillas SWING FRAME GRINDER OPERATOR Work Phone: Start: 10-21-2024 X-ray of left knee, two views Jasmyne soto SWING FRAME GRINDER OPERATOR Work Phone: Start: 09-09-2024 X-ray of left knee, three views Jasmyne ruiz SWING FRAME GRINDER OPERATOR Work Phone: Start: 08-10-2024 Ct thorax w/o contrast material Bryanna Adan MD Work Phone: Start: 07-27-2024 X-ray of left knee, two views Jasmyne soto SWING FRAME GRINDER OPERATOR Work Phone: Start: 07-27-2024 Total replacement of left knee joint Jasmyne Casillas SWING FRAME GRINDER OPERATOR Work Phone: Start: 07-16-2024 Plain X-ray of left femur Jasmyne WHITNEY RN Work Phone: Start: 07-16-2024 Plain X-ray of left tibia and left fibula Jasmyne Casillas SWING FRAME GRINDER OPERATOR Work Phone: Start: 07-13-2024 Urine culture Jasmyne Casillas APRN Work Phone: Start: 06-10-2024 Methicillin resistant Staphylococcus aureus culture Jasmyne Casillas SWING FRAME GRINDER OPERATOR Work Phone: Start: 05-19-2024 Ct thorax w/o contrast material Bryanna Adan MD Work Phone: Start: 05-11-2024 Comprehensive metabolic panel Jasmyne Gaona joseph SWING FRAME GRINDER OPERATOR - LAMBSKIN TRIMMER Work Phone: Start: 05-11-2024 Lipid panel Jasmyne Casillas SWING FRAME GRINDER OPERATOR - LAMBSKIN TRIMMER Work Phone: Start: 04-28-2024 Diagnostic mammography computer-aided detcj bi Bryanna Adan MD Work Phone: Start: 04-21-2024 Radiofrequency destruction of peripheral nerve ALYSSA Jasmyne Casillas Work Phone: Start: 07-10-2024 X-ray of left knee SWING FRAME GRINDER OPERATOR Jasmyne Casillas Work Phone: Start: 12-12-2023 Plain X-ray of right hip SWING FRAME GRINDER OPERATOR Jasmyne Prashant s Work Phone: Start: 11-19-2023 Ct thorax w/o contrast material Bryanna Adan MD Work Phone: Start: 05-21-2023 Ct thorax w/o contrast material Bryanna Adan MD Work Phone: Start: 04-03-2023 Esophagogastroduodenoscopy SWING FRAME GRINDER OPERATOR Jasmyne Jimenez ebs Work Phone: Start: 01-16-2023 Esophagogastroduodenoscopy SWING FRAME GRINDER OPERATOR Jasmyne Jimenez ebs Work Phone: Start: 01-10-2023 Ct thorax w/o contrast material Bryanna Adan MD Work Phone: Start: 12-07-2022 Pelvis X-ray SWING FRAME GRINDER OPERATOR Jasmyne Sonja Work Phone: Start: 12-07-2022 Radiologic examination of knee SWING FRAME GRINDER OPERATOR Jone cali Casillas Work Phone: Start: 07-23-2022 Pulmonary stress testing Gibson Singh SWING FRAME GRINDER OPERATOR - LAMBSKIN TRIMMER Work Phone: Start: 07-12-2022 Ct thorax w/o contrast material Luther BLOOM Work Phone: Start: 06-01-2022 Quant differential pulm perfusion w/wo imaging Mizti Amaral MD Work Phone: Start: 06-01-2022 Duplex scan extracranial art compl bi study Mitzi Amaral MD Work Phone: Start: 05-30-2022 Antibody screen JASMYNE CASILLAS Comment on above: Order Comment: Specimen Type: BLOOD SPEC IMEN Ordering Facility: [facility] Address: [address] [place] [address] [place] [address] Performed By: #### T [id number] #### [facility] CLIA [id number] [place] [address] [facility] Start: 05-30-2022 Pulmonary stress testing Mitzi Dejesus Work Phone: Start: 05-30-2022 Spmtry w/vc expiratory ranjeet w/wo mxml vol vntj Mitzi Amaral MD Work Phone: Start: 04-23-2022 Basic metabolic panel calcium total Jasmyne Casillas SWING FRAME GRINDER OPERATOR - LAMBSKIN TRIMMER Work Phone: Start: 04-23-2022 Lipid panel Jasmyne Casillas SWING FRAME GRINDER OPERATOR - LAMBSKIN TRIMMER Work Phone: Start: 04-23-2022 PATIENT FASTING? Jsamyne Casillas SWING FRAME GRINDER OPERATOR - LAMBSKIN TRIMMER Work Phone: Start: 04-05-2022 Basic metabolic panel calcium total Lalo Chen MD Work Phone: Start: 04-05-2022 Diagnostic mammography computer-aided detcj bi Babatunde Pizarro MD Work Phone: Start: 04-04-2022 Pulmonary ventilation & perfusion imaging Shaniqua Ellsworth MD Work Phone: Start: 04-04-2022 Radiologic exam chest 2 views Shaniqua Ellsworth MD Work Phone: Start: 04-04-2022 Ct thorax w/o contrast material Shaniqua Ellsworth MD Work Phone: Start: 02-01-2022 C-reactive protein Jasmyne Casillas SWING FRAME GRINDER OPERATOR - LAMBSKIN TRIMMER Work Phone: Start: 02-01-2022 Sedimentation rate rbc automated Jasmyne Casillas SWING FRAME GRINDER OPERATOR - LAMBSKIN TRIMMER Work Phone: Start: 10-04-2021 Us retroperitoneal real time w/image complete Vahe Llanos MD Work Phone: Start: 2021 Basic metabolic panel calcium total Jasmyne Casillas SWING FRAME GRINDER OPERATOR - LAMBSKIN TRIMMER Work Phone: Start: 02-09-2021 Adult depression screening assessment Babatunde Pizarro MD Work Phone: Start: 02-02-2021 Natriuretic peptide Jasmyne Casillas SWING FRAME GRINDER OPERATOR - LAMBSKIN TRIMMER Work Phone: Start: 02-02-2021 Diagnostic mammography computer-aided detcj bi Babatunde Pizarro MD Work Phone: Start: 01-04-2021 Antibody screen SHARLA DE OLIVEIRA Comment on above: Performed By: #### [id number], [id number] #### [facility] [address] [place] [address], [facility] Start: 01-04-2021 Destructive procedure Vahe LLANOS Start: 12-13-2020 Assay of free thyroxine Jasmyne Casillas SWING FRAME GRINDER OPERATOR - LAMBSKIN TRIMMER Work Phone: Start: 11-14-2020 Radex ankle complete minimum 3 views Jasmyne Casillas SWING FRAME GRINDER OPERATOR - LAMBSKIN TRIMMER Work Phone: Start: 08-22-2020 Creatinine other source Lalo Kasmani Work Phone: Start: 08-22-2020 Protein total xcpt refractometry urine Lalo Kasmani Work Phone: Start: 08-22-2020 Assay of phosphorus inorganic Lalo Kasm ani Work Phone: Start: 08-22-2020 Basic metabolic panel calcium total Lalo Kasmani Work Phone: Start: 08-22-2020 Cell count misc body fluids w/differential count Lalo Kasmani Work Phone: Start: 07-25-2020 Us pelvic nonobstetric real-time image complete Jasmyne Casillas Work Phone: Start: 07-25-2020 Us transvaginal Jasmyne Casillas Work Phone: Start: 06-13-2020 Assay of urine sodium Lalo Kasmani Work Phone: Start: 06-13-2020 Creatinine other source Lalo Kasmani Work Phone: Start: 06-13-2020 Urnls dip stick/tablet rgnt auto w/o microscopy Lalo Kasmani Work Phone: Start: 06-13-2020 Protein total xcpt refractometry urine Lalo Kasmani Work Phone: Start: 06-13-2020 Assay of nephelometry each analyte chaim Lalo Chen Work Phone: Start: 06-13-2020 Basic metabolic panel calcium total Lalo Chen Work Phone: Start: 06-13-2020 Blood count complete auto&auto difrntl wbc Lalo Chen Work Phone: Start: 06-13-2020 Complement antigen each component Lalo Chen Work Phone: Start: 06-06-2020 Mammography Kosta Itzkowitz Start: 06-06-2020 Core needle biopsy of breast Kosta Rubin kowitz Start: 06-02-2020 Ultrasonography of left breast Kosta I tzkowitz Start: 06-01-2020 Screening mammography Kosta Itzkowitz Start: 05-25-2020 Mammography Kosta Itzkowitz Start: 05-25-2020 Biopsy of breast Kosta Itzkowitz Start: 05-05-2020 Us breast uni real time with image complete Lincoln Itzkowitz Work Phone: Start: 05-05-2020 Diagnostic mammography computer-aided detcj uni Lincoln Itzkowitz Work Phone: Start: 05-05-2020 Us retroperitoneal real time w/image complete Vahe Llanos Work Phone: Start: 12-03-2019 Open heart surgery Vahe LLANOS Start: 11-26-2019 Us breast uni real time with image complete Jovan Miller Work Phone: Start: 11-26-2019 Diagnostic mammography computer-aided detcj uni Jovan Miller Work Phone: Start: 11-13-2019 Basic metabolic panel calcium total Ehab A Eltahawy Work Phone: Start: 11-13-2019 Blood count complete automated Ehab A El tahawy Work Phone: Start: 11-13-2019 COVID-19 Ehab A Eltahawraquel Work Phone: Start: 08-25-2019 C-reactive protein Jasymne Casillas Work Phone: Start: 08-25-2019 Rheumatoid factor quantitative Jasmyne skelton Work Phone: Start: 08-25-2019 Sedimentation rate rbc automated Jasmyne Casillas Work Phone: Start: 06-08-2019 Urnls dip stick/tablet rgnt auto w/o microscopy Jasmyne Casillas SWING FRAME GRINDER OPERATOR - LAMBSKIN TRIMMER Work Phone: Start: 06-08-2019 C-reactive protein Jasmyne Casillas SWING FRAME GRINDER OPERATOR - LAMBSKIN TRIMMER Work Phone: Start: 06-08-2019 Comprehensive metabolic panel Jasmyne Gaona joseph SWING FRAME GRINDER OPERATOR - LAMBSKIN TRIMMER Work Phone: Start: 05-08-2019 Dxa bone density study 1/> sites axial skel Jovan Miller Work Phone: Start: 02-10-2016 Angioplasty of blood vessel Vahe LLANOS Comment on above: 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 knee TKA Start: 07-01-2011 Extraction of cataract Vahe LLANOS Comment on above: Right Abdominoplasty Vahe LLANOS Appendectomy Vahe LLANOS Cardiac catheterization Camron LLANOS Comment on above: times two with stent in LAD with 2nd one Cholecystocolostomy Vahe LLANOS Colonoscopy Vahe LLANOS Comment on above: with polyp removal x3 Cystoscopic lithotri psy of ureteric calculus Vahe LLANOS Dilation and curettage of uterus Vahe LLANOS Excision of bunion Vahe LONG Comment on above: right toe Injection of collagen Demetrio LLANOS stent in LAD Vahe LLANOS Tear of meniscus of knee (disorder) Vahe LLANOS Comment on above: bilateral knee, arthorplasty Tonsillectomy and adenoidectomy Vahe LLANOS Plan of Treatment Date Care Activity Detail Author Start: 09-07-2031 DTaP/Tdap/Td vaccine (2 - Td or Tdap) DTaP/Tdap/Td vaccine (2 - Td or Tdap) [employer] Start: 09-07-2031 Urine microalbumin profile [facility] Start: 02-23-2028 Diabetes Screening Diabetes Screening [facility] Start: 01-27-2028 Diabetes Screening Diabetes Screening [facility] Start: 12-15-2027 Diabetes Screening Diabetes Screening [facility] Start: 12-08-2027 Diabetes Screening Diabetes Screening [facility] Start: 08-17-2027 Diabetes Screening Diabetes Screening [facility] Start: 05-11-2027 Diabetes Screening Diabetes Screening [facility] Start: 11-25-2026 Diabetes Screening Diabetes Screening [facility] Start: 05-21-2026 Diabetes Screening Diabetes Screening [facility] Start: 03-15-2026 End: 03-15-2026 Patient encounter procedure 03/15/2026 9:15 AM EDT Office Visit [facility] [address] [place] [id number] Jovan Lema DO [address] [place] [address] [facility] Start: 01-10-2026 DIABETES SCREEN DIABETES SCREEN [facility] Start: 01-10-2026 Diabetes Screening Diabetes Screening [facility] Start: 12-01-2025 Annual Wellness Visit (Medicare) Annual Wellness Visit (Medicare) [facility] Start: 11-30-2025 Depression Screen Depression Screen [facility] Start: 11-30-2025 GFR test (Diabetes, CKD 3-4, OR last GFR 15-59) GFR test (Diabetes, CKD 3-4, OR last GFR 15-59) [facility] [employer] [facility] Start: 11-30-2025 Urine screening for protein Diabetic Alb to Cr ratio (uACR) test [facility] [employer] [facility] Start: 11-09-2025 End: 11-09-2025 Patient encounter procedure ARA COON Start: 10-01-2025 DIABETES SCREEN DIABETES SCREEN [facility] Start: 08-23-2025 End: 08-23-2025 Follow-up encounter 08/23/2025 2:00 PM EST Visit (SP) Office Hematology/Oncology [address] [place] [address] Karlee Kelly MD [address] [place] [address] 6 month follow up after ct and lab Hematology/Oncology Comment on above: 6 month follow up after ct and lab Start: 08-19-2025 End: 08-19-2025 Patient encounter procedure 08/19/2025 9:30 AM EST [facility] [address] [facility] [address] [place] [address] Kosta Keene DO [address] [facility] [address] [place] [address] [facility] Start: 08-16-2025 End: 08-16-2025 Patient encounter procedure 08/16/2025 1:45 PM EST Appointment Radiology Pet [facility] [address] [place] [address] Ct CAP with contrast and lab Radiology Pet CT Comment on above: Ct CAP with contrast and lab Start: 07-03-2025 DIABETES SCREEN DIABETES SCREEN [facility] Start: 06-23-2025 DIABETES SCREEN DIABETES SCREEN [facility] Start: 06-19-2025 DIABETES SCREEN DIABETES SCREEN [facility] Start: 06-14-2025 DIABETES SCREEN DIABETES SCREEN [facility] Start: 05-30-2025 DIABETES SCREEN DIABETES SCREEN [facility] Start: 05-11-2025 Hepatitis B surface antibody level LDL Cholesterol [facility] Start: 05-11-2025 Lipid panel Lipids [facility] Start: 04-28-2025 End: 04-20-2026 DBT Breast - bilateral diagnostic Bilateral diagnostic mammogram with tomosynthesis Imaging Routine Ductal carcinoma in situ (DCIS) of right breast Expected: 04/28/2025 (Approximate), Expires: 04/20/2026 [facility] [employer] Work Phone: Comment on above: Expected: 04/28/2025 (Approximate), Expi res: 04/20/2026 Start: 04-28-2025 End: 04-20-2026 US Breast - right limited Right breast US limited Imaging Routine Ductal carcinoma in situ (DCIS) of right breast Expected: 04/28/2025, Expires: 04/20/2026 [facility] [employer] Comment on above: Expected: 04/28/2025, Expires: Start: 03-23-2025 End: 06-22-2025 CBC W Auto Differential panel - Blood COMPLETE BLOOD COUNT AND DIFFERENTIAL Lab Routine Stage 3a chronic kidney disease (HCC) Iron deficiency anemia due to chronic blood loss Ductal carcinoma in situ (DCIS) of right breast Expected: 03/23/2025 (Approximate), Expires: 06/22/2025 [facility] Comment on above: Expected: 03/23/2025 (Approximate), Expi res: 06/22/2025 Start: 03-23-2025 End: 06-22-2025 Comprehensive metabolic 2000 panel - Serum or Plasma COMPREHENSIVE METABOLIC PANEL Lab Routine Stage 3a chronic kidney disease (HCC) Iron deficiency anemia due to chronic blood loss Ductal carcinoma in situ (DCIS) of right breast Expected: 03/23/2025 (Approximate), Expires: 06/22/2025 [facility] Work Phone: Comment on above: Expected: 03/23/2025 (Approximate), Expi res: 06/22/2025 Start: 03-23-2025 End: 06-22-2025 Erythropoietin (EPO) [Units/volume] in Serum or Plasma ERYTHROPOIETIN/EPO Lab Routine Stage 3a chronic kidney disease (HCC) Iron deficiency anemia due to chronic blood loss Ductal carcinoma in situ (DCIS) of right breast Expected: 03/23/2025 (Approximate), Expires: 06/22/2025 [facility] Comment on above: Expected: 03/23/2025 (Approximate), Expi res: 06/22/2025 Start: 03-23-2025 End: 06-22-2025 Ferritin [Mass/volume] in Serum or Plasma FERRITIN Lab Routine Stage 3a chronic kidney disease (HCC) Iron deficiency anemia due to chronic blood loss Ductal carcinoma in situ (DCIS) of right breast Expected: 03/23/2025 (Approximate), Expires: 06/22/2025 [facility] Comment on above: Expected: 03/23/2025 (Approximate), Expi res: 06/22/2025 Start: 03-23-2025 End: 06-22-2025 Iron and Iron binding capacity panel - Serum or Plasma IRON AND TIBC Lab Routine Stage 3a chronic kidney disease (HCC) Iron deficiency anemia due to chronic blood loss Ductal carcinoma in situ (DCIS) of right breast Expected: 03/23/2025 (Approximate), Expires: 06/22/2025 [facility] Comment on above: Expected: 03/23/2025 (Approximate), Expi res: 06/22/2025 Start: 03-23-2025 End: 03-23-2025 Follow-up encounter 03/23/2025 11:00 AM EDT Visit (SP) Office Hematology/Oncology [address] [place] [address] Katie Cook PA-C [address] [place] [address] 8 week follow up with lab Hematology/Oncology Comment on above: 8 week follow up with lab Start: 03-23-2025 End: 03-23-2025 Patient encounter procedure 03/23/2025 10:45 AM EDT Office Visit [facility] [address] [place] [address] 8 week follow up with lab [facility] Comment on above: 8 week follow up with lab Start: 03-16-2025 End: 03-16-2025 Patient encounter procedure 03/16/2025 9:45 AM EDT [facility] [address] [place] [phone] Jovan Lema, DO [address] [place] [address] [facility] Start: 03-09-2025 End: 03-09-2025 Patient encounter procedure 03/09/2025 2:15 PM EDT Office Visit [facility] [address] [place] [phone] Jovan Lema, DO [address] [place] [address] Arrived [facility] Comment on above: Arrived Start: 03-08-2025 End: 03-08-2025 Patient encounter procedure 03/08/2025 9:00 AM EDT Office [place] [facility] [address] [place] [address] Jasmyne Casillas, SWING FRAME GRINDER OPERATOR - LAMBSKIN TRIMMER [address] [place] [address] 3 month follow up [facility] Comment on above: 3 month follow up Start: 03-01-2025 Influenza vaccination Influenza Vaccine (#1) [facility] Start: 02-26-2025 End: 02-26-2025 Patient encounter procedure Vascular Surgery Comment on above: Dx: Infrarenal abdominal aortic aneurysm (AAA) without rupture [I71.43] AAA Pt had CTA on bringing disk Start: 02-22-2025 End: 02-22-2026 Cobalamin (Vitamin B12) [Mass/volume] in Serum or Plasma [facility] Comment on above: Expected: 02/22/2025, Expires: Start: 02-22-2025 End: 02-22-2026 Comprehensive metabolic 2000 panel - Serum or Plasma [facility] Work Phone: Comment on above: Expected: 02/22/2025, Expires: Start: 02-22-2025 End: 05-24-2025 Erythropoietin (EPO) [Units/volume] in Serum or Plasma [facility] Comment on above: Expected: 02/22/2025, Expires: Start: 02-22-2025 End: 02-22-2026 Ferritin [Mass/volume] in Serum or Plasma [facility] Comment on above: Expected: 02/22/2025, Expires: Start: 02-22-2025 End: 02-22-2026 Folate [Mass/volume] in Serum or Plasma [facility] Comment on above: Expected: 02/22/2025, Expires: Start: 02-22-2025 End: 05-24-2025 Haptoglobin [Mass/volume] in Serum or Plasma [facility] Comment on above: Expected: 02/22/2025, Expires: Start: 02-22-2025 End: 02-22-2026 Iron and Iron binding capacity panel - Serum or Plasma [facility] Comment on above: Expected: 02/22/2025, Expires: Start: 02-22-2025 End: 02-22-2025 ambulatory Hematology/Oncology Comment on above: [address] Vernon / USRESH pt 6/5-L/M For Pt To Ca ll Our Office Back Need To R/S This Appt Start: 02-18-2025 End: 02-18-2025 Patient encounter procedure 02/18/2025 10:45 AM EDT Office Visit [facility] [address] [address] Kosta Keene DO [address] [facility] [address] [place] [address] [facility] Start: 02-15-2025 End: 02-15-2025 Patient encounter procedure Radiology Pet CT Comment on above: CT CAP with contrast and lab pet Start: 02-01-2025 DIABETES SCREEN DIABETES SCREEN [facility] Start: 01-26-2025 End: 01-26-2025 Follow-up encounter 01/26/2025 10:30 AM EDT Visit (SP) Office Hematology/Oncology [address] [place] [address] [place] [address] Katie Cook PA-C [address] [place] [address] 6 week follow up with lab Hematology/Oncology Comment on above: 6 week follow up with lab Start: 01-26-2025 End: 01-26-2025 Patient encounter procedure 01/26/2025 10:15 AM EDT Office Visit [facility] [address] [address] 1 week follow up labs [facility] Comment on above: 1 week follow up labs Start: 01-25-2025 End: 04-26-2025 CBC W Auto Differential panel - Blood COMPLETE BLOOD COUNT AND DIFFERENTIAL Lab Routine Iron deficiency anemia due to chronic blood loss Expected: 01/25/2025 (Approximate), Expires: 04/26/2025 [facility] Comment on above: Expected: 01/25/2025 (Approximate), Expi res: 04/26/2025 Start: 01-25-2025 End: 04-26-2025 Comprehensive metabolic 2000 panel - Serum or Plasma COMPREHENSIVE METABOLIC PANEL Lab Routine Iron deficiency anemia due to chronic blood loss Expected: 01/25/2025 (Approximate), Expires: 04/26/2025 [facility] Work Phone: Comment on above: Expected: 01/25/2025 (Approximate), Expi res: 04/26/2025 Start: 01-25-2025 End: 04-26-2025 Ferritin [Mass/volume] in Serum or Plasma FERRITIN Lab Routine Iron deficiency anemia due to chronic blood loss Expected: 01/25/2025 (Approximate), Expires: 04/26/2025 [facility] Comment on above: Expected: 01/25/2025 (Approximate), Expi res: 04/26/2025 Start: 01-25-2025 End: 04-26-2025 Iron and Iron binding capacity panel - Serum or Plasma IRON AND TIBC Lab Routine Iron deficiency anemia due to chronic blood loss Expected: 01/25/2025 (Approximate), Expires: 04/26/2025 [facility] Comment on above: Expected: 01/25/2025 (Approximate), Expi res: 04/26/2025 Start: 01-06-2025 End: 01-06-2025 ambulatory 01/06/2025 9:15 AM EDT Infusion Center Hematology/Oncology [address] [place] [address] Weekly Venofer x 3 doses Hematology/Oncology Comment on above: Weekly Venofer x 3 doses Start: 01-04-2025 End: 01-04-2025 Patient encounter procedure 01/04/2025 9:45 AM EDT Office Visit [facility] [address] [place] [address] Shaniqua Ellsworth MD [address] [address] 6m f/u with download [facility] Comment on above: 6m f/u with download Start: 12-30-2024 End: 12-30-2024 ambulatory 12/30/2024 9:15 AM EDT Infusion Center Hematology/Oncology [address] [facility] [place] [address] Weekly Venofer x 3 doses Hematology/Oncology Comment on above: Weekly Venofer x 3 doses Start: 12-22-2024 End: 12-22-2024 ambulatory 12/22/2024 10:45 AM EDT Infusion Center Hematology/Oncology [address] [place] [address] Weekly Venofer x 3 doses Hematology/Oncology Comment on above: Weekly Venofer x 3 doses Start: 12-14-2024 End: 12-14-2024 Follow-up encounter 12/14/2024 10:00 AM EDT Visit (SP) Office Hematology/Oncology [address] [place] [address] Katie Cook, PA-C [address] [address] 1 week follow up labs Hematology/Oncology Comment on above: 1 week follow up labs Start: 12-14-2024 End: 12-14-2024 Patient encounter procedure 12/14/2024 9:45 AM EDT Office Visit [facility] [address] [place] [address] 1 week follow up labs [facility] Comment on above: 1 week follow up labs Start: 12-07-2024 End: 12-07-2024 ambulatory 12/07/2024 2:00 PM EDT Visit (SP) Office Hematology/Oncology [address] [place] [address] Katie Cook PA-C [address] [address] per phone encounter Jasmyne Cerda pt HGB is 8.1 needs to be seen Hematology/Oncology Comment on above: per phone encounter Jasmyne Gradytodd pt HGB is 8.1 needs to be seen Start: 12-07-2024 End: 03-08-2025 CBC W Auto Differential panel - Blood COMPLETE BLOOD COUNT AND DIFFERENTIAL Lab Routine Dysuria Anemia, unspecified type Malignant neoplasm of upper lobe of left lung (HCC) Ductal carcinoma in situ (DCIS) of right breast Expected: 12/07/2024, Expires: 03/08/2025 [facility] Comment on above: Expected: 12/07/2024, Expires: Start: 12-07-2024 End: 03-08-2025 Comprehensive metabolic 2000 panel - Serum or Plasma COMPREHENSIVE METABOLIC PANEL Lab Routine Dysuria Anemia, unspecified type Malignant neoplasm of upper lobe of left lung (HCC) Ductal carcinoma in situ (DCIS) of right breast Expected: 12/07/2024, Expires: 03/08/2025 [facility] Comment on above: Expected: 12/07/2024, Expires: Start: 12-01-2024 End: 03-02-2025 CBC W Auto Differential panel - Blood COMPLETE BLOOD COUNT AND DIFFERENTIAL Lab Routine Anemia, unspecified type Expected: 12/01/2024, Expires: 03/02/2025 [facility] Comment on above: Expected: 12/01/2024, Expires: Start: 12-01-2024 End: 03-02-2025 Cobalamin (Vitamin B12) [Mass/volume] in Serum or Plasma VITAMIN B12 Lab Routine Anemia, unspecified type Expected: 12/01/2024, Expires: 03/02/2025 [facility] Comment on above: Expected: 12/01/2024, Expires: Start: 12-01-2024 End: 03-02-2025 Comprehensive metabolic 2000 panel - Serum or Plasma COMPREHENSIVE METABOLIC PANEL Lab Routine Anemia, unspecified type Expected: 12/01/2024, Expires: 03/02/2025 [facility] Work Phone: Comment on above: Expected: 12/01/2024, Expires: Start: 12-01-2024 End: 03-02-2025 Ferritin [Mass/volume] in Serum or Plasma FERRITIN Lab Routine Anemia, unspecified type Expected: 12/01/2024, Expires: 03/02/2025 [facility] Comment on above: Expected: 12/01/2024, Expires: Start: 12-01-2024 End: 03-02-2025 Folate [Mass/volume] in Serum or Plasma FOLATE, SERUM Lab Routine Anemia, unspecified type Expected: 12/01/2024, Expires: 03/02/2025 [facility] Comment on above: Expected: 12/01/2024, Expires: Start: 12-01-2024 End: 03-02-2025 Haptoglobin [Mass/volume] in Serum or Plasma HAPTOGLOBIN Lab Routine Anemia, unspecified type Expected: 12/01/2024, Expires: 03/02/2025 [facility] Comment on above: Expected: 12/01/2024, Expires: Start: 12-01-2024 End: 03-02-2025 Iron and Iron binding capacity panel - Serum or Plasma IRON AND TIBC Lab Routine Anemia, unspecified type Expected: 12/01/2024, Expires: 03/02/2025 [facility] Comment on above: Expected: 12/01/2024, Expires: Start: 12-01-2024 End: 03-02-2025 Lactate dehydrogenase [Enzymatic activity/volume] in Serum or Plasma LACTATE DEHYDROGENASE Lab Routine Anemia, unspecified type Expected: 12/01/2024, Expires: 03/02/2025 [facility] Comment on above: Expected: 12/01/2024, Expires: Start: 12-01-2024 End: 03-02-2025 MONOCLONAL PROTEIN, SERUM (BLOOD) MONOCLONAL PROTEIN, SERUM (BLOOD) Lab Routine Anemia, unspecified type Expected: 12/01/2024, Expires: 03/02/2025 [facility] Comment on above: Expected: 12/01/2024, Expires: Start: 12-01-2024 End: 03-02-2025 PROTEIN ELECTROPHORESIS SERUM W/INTERP PROTEIN ELECTROPHORESIS SERUM W/INTERP Lab Routine Anemia, unspecified type Expected: 12/01/2024, Expires: 03/02/2025 [facility] Comment on above: Expected: 12/01/2024, Expires: Start: 12-01-2024 End: 03-02-2025 Thyrotropin [Units/volume] in Serum or Plasma THYROID STIMULATING HORMONE Lab Routine Anemia, unspecified type Expected: 12/01/2024, Expires: 03/02/2025 [facility] Comment on above: Expected: 12/01/2024, Expires: Start: 11-30-2024 End: 11-30-2024 Patient encounter procedure 11/30/2024 9:20 AM EDT Office Visit [facility] [address] [place] [id number] Jasmyne Casillas, SWING FRAME [place] [address] Yearly AWV [facility] Comment on above: Yearly AWV Start: 11-11-2024 Annual Wellness Visit (Medicare) Annual Wellness Visit (Medicare) [facility] Start: 11-10-2024 Depression Screen Depression Screen [facility] Start: 11-10-2024 Hepatitis B surface antibody level LDL Cholesterol [facility] Start: 11-10-2024 Lipid panel Lipids [facility] Start: 11-05-2024 End: 11-05-2024 Patient encounter procedure 11/05/2024 10:30 AM EDT Office Visit [facility] [address] [place] [address] Sunitha Durand MD [address] [place] [address] [facility] Start: 10-26-2024 End: 10-26-2024 [facility] Start: 10-21-2024 Plain X-ray of left femur XR femur LT 2V* [facility] Start: 10-21-2024 Plain X-ray of left tibia and left fibula XR tibia fibula LT 2V* [facility] Start: 10-21-2024 X-ray of left knee, two views XR knee LT 2V [facility] Start: 10-21-2024 XR Femur - left 2 Views [facility] Start: 10-21-2024 XR Knee - left 2 Views [facility] Start: 10-21-2024 XR Tibia and Fibula - left 2 Views [facility] Start: 09-09-2024 X-ray of left knee, three views XR knee LT 3V - NOT FOR ER USE [facility] Start: 09-09-2024 XR Knee - left 3 Views [facility] Start: 09-07-2024 COVID-19 Vaccine ( season) COVID-19 Vaccine ( season) [facility] Start: 09-07-2024 Covid-19 Vaccine ( season) Covid-19 Vaccine ( season) [facility] Start: 08-31-2024 End: 08-31-2024 Patient encounter procedure 08/31/2024 9:15 AM EST Office Visit [facility] Part of [address] [address] Shaniqua Ellsworth MD [address] [facility] [address] [place], [place] [id number] Adenocarcinoma of left lung, JENNIFER with Download [facility] Comment on above: Adenocarcinoma of left lung, JENNIFER with Do wnload Start: 08-17-2024 End: 08-17-2024 Follow-up encounter 08/17/2024 10:00 AM EST Visit (SP) Office Hematology/Oncology [address] [facility] [place] [address] Bryanna Adan MD [address] [place] [address] [address] MON[address] FOLLOW UP AFTER CT SCAN Hematology/Oncology Comment on above: [address] MON[address] FOLLOW UP AFTER CT SCAN Start: 08-17-2024 End: 08-17-2024 Patient encounter procedure 08/17/2024 9:45 AM EST Office Visit [facility] [address] [place] [address] [address] MON[address] FOLLOW UP AFTER [address] SCAN [facility] Comment on above: 3 MONTH FOLLOW UP AFTER CT SCAN Start: 08-10-2024 End: 08-10-2024 Patient encounter procedure 08/10/2024 9:45 AM EST Appointment Radiology Pet CT [address] 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 [facility] Start: 07-27-2024 Referral to rehabilitation physician [facility] Start: 07-27-2024 End: 07-27-2024 Physical therapy procedure [facility] Start: 07-22-2024 End: 07-22-2024 Patient encounter procedure 07/22/2024 9:20 AM EST Office Visit [facility] [address] [place] [address] Lalo Chen MD [address] [facility] [place] [address] [facility] Start: 07-16-2024 Plain X-ray of left femur XR femur LT 2V* [facility] Start: 07-16-2024 Plain X-ray of left tibia and left fibula XR tibia fibula LT 2V* [facility] Start: 07-16-2024 XR Femur - left 2 Views [facility] Start: 07-16-2024 XR Tibia and Fibula - left 2 Views [facility] Start: 07-13-2024 Bacteria identified in Urine by Culture Urine Culture [facility] Start: 07-13-2024 Urine culture [facility] Start: 07-13-2024 [facility] Start: 07-10-2024 COVID-19 Vaccine ( season) COVID-19 Vaccine ( season) [facility] Start: 07-01-2024 Advance Directive Discussion Advance Directive Discussion [facility] Start: 06-01-2024 End: 06-01-2024 Patient encounter procedure [facility] Comment on above: New CPAP, medicare states she must be se en when receiving new machine New CPAP received Yasmin Yeager Start: 05-25-2024 End: 05-25-2024 Follow-up encounter 05/25/2024 11:20 AM EST Visit (SP) Office Hematology/Oncology [address] [place] [address] Bryanna Adan MD [address] [place] [address] [place] [address] 26 week follow up with lab [facility] Comment on above: 26 week follow up with lab Start: 05-25-2024 End: 05-25-2024 Follow-up encounter 05/25/2024 10:15 AM EST Visit (SP) Office Hematology/Oncology [address] [place] [address] Braynna Adan MD [address] [place] [address] [place] [address] 26 week follow up with lab [facility] Comment on above: 26 week follow up with lab Start: 05-25-2024 End: 05-25-2024 Patient encounter procedure [facility] Comment on above: 26 week follow up with lab Start: 05-19-2024 End: 05-19-2024 Patient encounter procedure 05/19/2024 9:45 AM EST Appointment Radiology Pet CT [address] [place] [address] 26 week follow up with lab [facility]iology Pet [facility] Comment on above: 26 week follow up with lab Start: 05-11-2024 End: 05-11-2024 Patient encounter procedure 05/11/2024 10:00 AM EST Office [place] [facility] [address] [place] [phone] Jasmyne Casillas, SWING FRAME GRINDER OPERATOR - [employer] [address] [place] [address] 6 months (around 05/13/2024) for diabetes, hypercholesterolemia, HTN check. [facility] Comment on above: 6 months (around 05/13/2024) for diabete s, hypercholesterolemia, HTN check. Start: 04-29-2024 Hepatitis B surface antibody level LDL Cholesterol [facility] Start: 04-28-2024 End: 04-28-2024 Patient encounter procedure 04/28/2024 9:00 AM EDT Appointment [facility] [address] [place] [address] Radiologist, Sameer Dyer Media sched w/pt TL [facility] Comment on above: Media sched w/pt TL Start: 04-22-2024 End: 04-22-2024 Patient encounter procedure 04/22/2024 10:30 AM EDT Office Visit [facility] [address] [place] [address] Lalo Chen MD [address] [facility] [place] [address] I HAVE LEFT TWO MESSAGES ON HER VOICEMAIL REG. CHANGE OF APPT. LAST MESSAGE ON 03/16/24 [facility] Comment on above: I HAVE LEFT TWO MESSAGES ON HER VOICEMAI L REG. CHANGE OF APPT. LAST MESSAGE ON 03/16/24 Start: 04-21-2024 [facility] Start: 03-01-2024 Covid-19 Vaccine ( season) Covid-19 Vaccine ( season) [facility] Start: 03-01-2024 Covid-19 Vaccine () Covid-19 Vaccine () [facility] Start: 03-01-2024 Influenza vaccination Influenza Vaccine (#1) [facility] Start: 01-30-2024 Influenza vaccination Flu vaccine (#1) [facility] Start: 01-08-2024 X-ray of left knee XR knee LT 2V [facility] Start: 01-08-2024 XR Knee - left 2 Views [facility] Start: 12-12-2023 Plain X-ray of right hip XR hip RT min 2V(w/wo pelvis)* [facility] Start: 12-12-2023 XR Hip - right 2 Views [facility] Start: 08-15-2023 End: 08-15-2023 Patient encounter procedure 08/15/2023 9:00 AM EST Office Visit [facility] [address] [place] [address] Kosta Keene DO [address] [place] [address] [facility] Start: 07-01-2023 Advance Directive Discussion Advance Directive Discussion [facility] Start: 07-01-2023 Behavioral Health Screening Behavioral Health Screening [facility] Start: 07-01-2023 Depression Assessment Depression Assessment [facility] Start: 05-21-2023 End: 08-20-2023 CBC W Auto Differential panel - Blood CBC + DIFF Lab Routine Malignant neoplasm of upper lobe of left lung (HCC) Expected: 05/21/2023, Expires: 08/20/2023 [facility] Work Phone: Comment on above: Expected: 05/21/2023, Expires: 4 Start: 05-21-2023 End: 08-20-2023 Comprehensive metabolic 2000 panel - Serum or Plasma COMP METABOLIC PANEL Lab Routine Malignant neoplasm of upper lobe of left lung (HCC) Expected: 05/21/2023, Expires: 08/20/2023 [facility] Work Phone: Comment on above: Expected: 05/21/2023, Expires: 4 Start: 04-29-2023 End: 04-29-2023 Patient encounter procedure 04/29/2023 Office Visit Family Medicine Jasmyne Casillas, SWING FRAME GRINDER OPERATOR - [facility] [address] [place] [address] [facility] Start: 04-24-2023 Annual Wellness Visit (AWV) Annual Wellness Visit (AWV) [facility] Start: 04-23-2023 Depression Screen Depression Screen [facility] Start: 04-23-2023 Hepatitis B surface antibody level LDL CHOLESTEROL [facility] Start: 04-23-2023 Lipid panel Lipids [facility] Start: 04-03-2023 [facility] Start: 03-01-2023 Covid-19 Vaccine ( season) Covid-19 Vaccine () [facility] Start: 03-01-2023 Influenza vaccination [facility] Start: 02-01-2023 Depression Screen Depression Screen [facility] Start: 01-16-2023 End: 01-16-2023 [facility] Start: 01-14-2023 End: 01-14-2023 Patient encounter procedure 01/14/2023 Office Visit Pulmonology Shaniqua Ellsworth MD [address] [address] [facility] Start: 10-24-2022 End: 10-24-2022 Patient encounter procedure 10/24/2022 Office Visit Nephrology Lalo Chen MD [address] [facility] [place] [address] [facility] Start: 10-22-2022 End: 10-22-2022 Patient encounter procedure 10/22/2022 Office Visit Nephrology Lalo Chen MD [address] [facility] [place] [address] [facility] Start: 10-04-2022 Creatinine measurement Creatinine monitoring [facility] Start: 10-04-2022 Lipid panel [facility] Start: 10-04-2022 Potassium monitoring Potassium monitoring [facility] Start: 08-20-2022 COVID-19 VACCINE (7 - Pfizer series) COVID-19 VACCINE (7 - Pfizer series) [facility] Start: 07-23-2022 End: 07-23-2022 Patient encounter procedure 07/23/2022 Office Visit Family Medicine Jasmyne Casillas, SWING FRAME GRINDER OPERATOR - [employer] [address] [place] [address] [facility] Start: 07-13-2022 End: 07-15-2023 Radiologic exam chest 2 views XR CHEST 2V FRONTAL/LAT Radiology Routine Hospital discharge follow-up Expected: 07/13/2022, Expires: 07/15/2023 [facility] Work Phone: Comment on above: Expected: 07/13/2022, Expires: Start: 07-01-2022 ADVANCE DIRECTIVE DISCUSSION ADVANCE DIRECTIVE DISCUSSION [facility] Start: 07-01-2022 DEPRESSION ASSESSMENT DEPRESSION ASSESSMENT [facility] Start: 05-30-2022 End: 11-16-2023 aPTT in Platelet poor plasma by Coagulation assay ACTIVATED PTT Lab STAT Preoperative testing Shortness of breath Expected: 05/30/2022, Expires: 05/16/2023 [facility] Work Phone: Comment on above: Expected: 05/30/2022, Expires: 3 Start: 05-30-2022 End: 07-30-2022 Bacteria identified in Urine by Culture [facility] Work Phone: Comment on above: Expected: 05/30/2022, Expires: 3 Start: 05-30-2022 End: 05-16-2023 CBC W Auto Differential panel - Blood CBC + DIFF Lab STAT Preoperative testing Expected: 05/30/2022, Expires: 05/16/2023 [facility] Work Phone: Comment on above: Expected: 05/30/2022, Expires: 3 Start: 05-30-2022 End: 05-16-2023 Comprehensive metabolic 2000 panel - Serum or Plasma COMP METABOLIC PANEL Lab STAT Preoperative testing Expected: 05/30/2022, Expires: 05/16/2023 [facility] Work Phone: Comment on above: Expected: 05/30/2022, Expires: 3 Start: 05-30-2022 End: 05-16-2023 CONFIRM BLOOD TYPE CONFIRM BLOOD TYPE Blood Bank Routine Preoperative testing Expected: 05/30/2022, Expires: 05/16/2023 [facility] Work Phone: Comment on above: Expected: 05/30/2022, Expires: 3 Start: 05-30-2022 End: 05-16-2023 ECG COMPLETE ECG COMPLETE ECG Routine Preoperative testing Expected: 05/30/2022, Expires: 05/16/2023 [facility] Work Phone: Comment on above: Expected: 05/30/2022, Expires: 3 Start: 05-30-2022 End: 05-16-2023 PT panel - Platelet poor plasma by Coagulation assay PROTHROMBIN TIME/PT Lab STAT Preoperative testing Shortness of breath Expected: 05/30/2022, Expires: 05/16/2023 [facility] Work Phone: Comment on above: Expected: 05/30/2022, Expires: 3 Start: 05-30-2022 End: 07-30-2022 TYPE AND SCREEN,30 DAY TYPE AND SCREEN,30 DAY Blood Bank Routine Preoperative testing Expected: 05/30/2022, Expires: 07/30/2022 [facility] Work Phone: Comment on above: Expected: 05/30/2022, Expires: 3 Start: 05-30-2022 End: 05-16-2023 URINALYSIS, DIPSTICK ONLY URINALYSIS, DIPSTICK ONLY Lab STAT Preoperative testing Expected: 05/30/2022, Expires: 05/16/2023 [facility] Work Phone: Comment on above: Expected: 05/30/2022, Expires: 3 Start: 05-16-2022 End: 05-16-2023 SARS-CoV-2 (COVID-19) RNA [Presence] in Respiratory specimen by YANELIS with probe detection PRE-PROCEDURE & PRE-OPERATIVE COVID Microbiology Routine Preoperative testing Expected: 05/16/2022, Expires: 05/16/2023 [facility] Work Phone: Comment on above: Expected: 05/16/2022, Expires: 3 Start: 05-07-2022 End: 05-07-2022 Patient encounter procedure 05/07/2022 Office Visit Pulmonology Shaniqua Ellsworth MD [address] [place] [address] [facility] Start: 04-25-2022 End: 04-25-2022 Patient encounter procedure 04/25/2022 Appointment Radiology Radiologist, Alice Interventional [facility] CT Scan Start: 04-23-2022 End: 04-23-2022 Patient encounter procedure 04/23/2022 Office Visit Family Medicine Jasmyne Casillas, SWING FRAME GRINDER OPERATOR - [employer] [address] [place] [address] [facility] Start: 04-18-2022 Annual Wellness Visit (AWV) Annual Wellness Visit (AWV) [facility] Start: 2022 Creatinine measurement Creatinine monitoring [employer] Phone: Start: 2022 Depression Screen Depression Screen [facility] Start: 2022 Lipid panel Lipid screen [facility] Start: 2022 Potassium monitoring Potassium monitoring [email or web address] Phone: Start: 03-16-2022 COVID-19 VACCINE (6 - Booster) COVID-19 VACCINE (6 - Booster) [facility] Start: 03-01-2022 Influenza vaccination [facility] Start: 02-09-2022 Adult depression screening assessment DEPRESSION SCREENING [facility] Start: 01-29-2022 Influenza vaccination Flu vaccine (#1) [facility] Start: 12-13-2021 Thyroid stimulating hormone measurement TSH testing [employer] Phone: Start: 10-30-2021 End: 10-30-2021 Patient encounter procedure 10/30/2021 Office Visit Pulmonology Shaniqua Ellsworth MD [address] [facility] [address] [place] [address] [facility] Start: 10-23-2021 End: 10-23-2021 Patient encounter procedure 10/23/2021 Office Visit Nephrology Lalo Chen MD [address] [facility] [place] [address] [facility] Start: 10-17-2021 Lipid panel Lipid screen [employer] Phone: Start: 10-17-2021 Thyroid stimulating hormone measurement TSH testing [employer] Phone: Start: 08-22-2021 Creatinine measurement Creatinine monitoring [employer] Phone: Start: 08-22-2021 Potassium monitoring Potassium monitoring [employer] Phone: Start: 07-01-2021 ADVANCE DIRECTIVE DISCUSSION ADVANCE DIRECTIVE DISCUSSION [facility] Start: 07-01-2021 DEPRESSION ASSESSMENT DEPRESSION ASSESSMENT [facility] Start: 06-13-2021 Creatinine measurement Creatinine monitoring [facility] [place] Start: 06-13-2021 Potassium monitoring Potassium monitoring [facility] [place] Start: 05-01-2021 End: 05-01-2021 Patient encounter procedure 05/01/2021 Office Visit Pulmonology Shaniqua Ellsworth MD [address] [facility] [address] [place], [place] [id number] [facility] Start: 04-24-2021 End: 04-24-2021 Office Visit 04/24/2021 Office Visit Nephrology Lalo Chen MD [address] [facility] [place], [place] [id number] [facility] Start: 2021 End: 2021 Patient encounter procedure 2021 Office Visit Family Medicine Jasmyne Casillas, SWING FRAME GRINDER OPERATOR - [employer] [address] [place], [place] [id number] [facility] Start: 04-12-2021 Annual Wellness Visit (AWV) Annual Wellness Visit (AWV) [facility], [place]IE Start: 03-01-2021 Influenza vaccination Flu vaccine (#1) [facility] Phone: Start: 02-02-2021 End: 02-02-2021 Appointment 02/02/2021 Appointment Radiology Radiologist, Sameer Dyer [facility] Start: 01-11-2021 Creatinine measurement Creatinine monitoring [facility] [place] Start: 01-11-2021 Potassium monitoring Potassium monitoring [facility] [place], [place] Start: 10-17-2020 End: 10-17-2020 Office Visit 10/17/2020 Office Visit Family Jasmyne Lee, SWING FRAME GRINDER OPERATOR - [employer] [address] [place] [address] [phone] [facility] Start: 08-22-2020 End: 08-22-2020 Office Visit 08/22/2020 Office Visit NephLalo Gonzalez MD [address] [facility] [address] [address] [phone] [facility] Start: 07-18-2020 End: 07-18-2020 Office Visit 07/18/2020 Office Visit Family Jasmyne Lee, SWING FRAME GRINDER OPERATOR [place] [address] [phone] [facility] Start: 06-13-2020 End: 06-13-2020 Office Visit 06/13/2020 Office Visit NephLalo Gonzalez MD [address] [facility] [place] [address] [phone] [facility] Start: 06-09-2020 Lipid panel Lipid screen [facility], [place] Start: 06-09-2020 Lipid screen Lipid screen [facility], [place] Start: 12-21-2019 End: 12-21-2019 Office Visit 12/21/2019 Office Visit Family Jasmyne Lee, SWING FRAME GRINDER OPERATOR [place] [address] [phone] [facility] [facility] [place] Start: 11-16-2019 End: 11-16-2019 Office Visit 11/16/2019 Office Visit Pulmonology Shaniqua Ellsworth MD [address] [facility] [address] [place] [address] [phone] [facility] Start: 10-26-2019 End: 10-26-2019 Office Visit 10/26/2019 Office Visit Family Jasmyne Lee, SWING FRAME GRINDER OPERATOR - LAMBSKIN TRIMMER [address] [place] [address] [phone] [facility] Start: 09-14-2019 End: 09-14-2019 Office Visit 09/14/2019 Office Visit Family Medicine Sonja Jasmyne Mccann, SWING FRAME GRINDER OPERATOR - LAMBSKIN TRIMMER [address] [place] [address] [phone] [facility] Start: 09-11-2019 Annual Wellness Visit (AWV) Annual Wellness Visit (AWV) [place] Start: 09-10-2019 Annual Wellness Visit (AWV) Annual Wellness Visit (AWV) [place] Start: 05-18-2019 End: 05-18-2019 Office Visit 05/18/2019 Office Visit Pulmonology Shaniqua Ellsworth MD [address] [facility] [address] [place] [address] [phone] Specialist Out[facility] [place] Start: 03-01-2019 Influenza vaccination Flu vaccine (#1) [place] Start: 12-03-2018 Lipid screen Lipid screen [place] Start: 11-26-2018 Annual Wellness Visit (AWV) Annual Wellness Visit (AWV) [place] Start: 2006 BONE DENSITY BONE DENSITY [facility] Start: 2006 Bone Density Screening Bone Density Screening [facility] Start: 2006 Screening for osteoporosis Bone Density Screening [facility] Start: 03-31-2006 Medicare Annual Wellness Visit Medicare Annual Wellness Visit [facility] Start: 2001 RSV Vaccine (1 - 1-dose 60+ series) RSV Vaccine (1 - 1-dose 60+ series) [facility] Start: 1960 DTaP/Tdap/Td vaccine (1 - Tdap) DTaP/Tdap/Td vaccine (1 - Tdap) [place] Start: 1959 ANNUAL PCP TEAM CHRONIC DISEASE VISIT ANNUAL PCP TEAM CHRONIC DISEASE VISIT [facility] Start: 1959 Anxiety Screening Anxiety Screening [facility] Start: 1959 Depression Screening Depression Screening [facility] Start: 1959 Hepatitis B surface antibody level LDL CHOLESTEROL [facility] Start: 1959 SPIROMETRY SPIROMETRY [facility] Start: 1957 COVID-19 Vaccine (1 of 2) COVID-19 Vaccine (1 of 2) [employer] [place] Start: 1952 DTaP/Tdap/Td vaccine (1 - Tdap) DTaP/Tdap/Td vaccine (1 - Tdap) [employer] Phone: Start: 1941 Hepatitis C screening Hepatitis C screen [facility] [place] End: 06-13-2020 GUILHERME Screen with Reflex GUILHERME Screen with Reflex Lab Routine JIMMIE (acute kidney injury) (HCC) 1 Occurrences starting 06/13/2020 until 06/13/2020 [facility] [place] Comment on above: 1 Occurrences starting 06/13/2020 until 06/13/2020 GUILHERME Screen with Reflex [employer] Phone: End: 06-08-2019 GUILHERME Screen With Reflex GUILHERME Screen With Reflex Lab Routine Acute pain of both shoulders Myalgia Acute pain of both hips 1 Occurrences starting 06/08/2019 until 06/08/2019 [employer] Phone: Comment on above: 1 Occurrences starting 06/08/2019 until 06/08/2019 End: 03-25-2024 Baseline Diagnostic Sleep Study Baseline Diagnostic Sleep Study Sleep Center Routine Obstructive sleep apnea syndrome 1 Occurrences starting 03/25/2024 until 03/25/2024 [facility] Comment on above: 1 Occurrences starting 03/25/2024 until 03/25/2024 End: 09-16-2025 CT Abdomen and Pelvis WO contrast CT ABD/PEL WO IVCON Radiology Routine Malignant neoplasm of upper lobe of left lung (HCC) 1 Occurrences starting 08/17/2024 until 09/16/2025 [facility] Comment on above: 1 Occurrences starting 08/17/2024 until 09/16/2025 End: 04-04-2022 CT CHEST LOW DOSE (LDCT) CT CHEST LOW DOSE (LDCT) Imaging Routine Lung nodule seen on imaging study 1 Occurrences starting 04/04/2022 until 04/04/2022 [employer] Phone: Comment on above: 1 Occurrences starting 04/04/2022 until 04/04/2022 End: 12-25-2024 CT Chest WO contrast CT CHEST WO IVCON Radiology Routine 1 Occurrences starting 11/26/2023 until 12/25/2024 [facility] Comment on above: 1 Occurrences starting 11/26/2023 until 12/25/2024 End: 06-24-2025 CT Chest WO contrast CT CHEST WO IVCON Radiology Routine 1 Occurrences starting 05/25/2024 until 06/24/2025 [facility] Work Phone: Comment on above: 1 Occurrences starting 05/25/2024 until 06/24/2025 End: 09-16-2025 CT Chest WO contrast CT CHEST WO IVCON Radiology Routine 1 Occurrences starting 08/17/2024 until 09/16/2025 [facility] Work Phone: Comment on above: 1 Occurrences starting 08/17/2024 until 09/16/2025 End: 07-22-2023 Ct thorax w/o contrast material CT CHEST WO IVCON Radiology Routine Post-operative state 1 Occurrences starting 06/22/2022 until 07/22/2023 [facility] Work Phone: Comment on above: 1 Occurrences starting 06/22/2022 until 07/22/2023 End: 02-14-2024 Ct thorax w/o contrast material CT CHEST WO IVCON Radiology Routine 1 Occurrences starting 01/15/2023 until 02/14/2024 [facility] Work Phone: Comment on above: 1 Occurrences starting 01/15/2023 until 02/14/2024 End: 03-18-2026 CTA Abdominal vessels and Pelvis vessels W contrast IV CTA ABD/PEL W IVCON Radiology Routine Encounter for other preprocedural examination 1 Occurrences starting 02/16/2025 until 03/18/2026 [facility] Work Phone: Comment on above: 1 Occurrences starting 02/16/2025 until 03/18/2026 End: 06-08-2019 Cyclic Citrul Peptide Antibody, IgG Cyclic Citrul Peptide Antibody, IgG Lab Routine Acute pain of both shoulders Myalgia 1 Occurrences starting 06/08/2019 until 06/08/2019 [employer] Work Phone: Comment on above: 1 Occurrences starting 06/08/2019 until 06/08/2019 Cyclic Citrul Peptid e Antibody, IgG Cyclic Citrul Peptide Antibody, IgG Lab Routine Acute pain of both shoulders Myalgia 06/08/2019 1:55 PM [employer] Phone: End: 03-22-2023 Diagnostic mammography computer-aided detcj bi [facility] Radiology Routine Ductal carcinoma in situ (DCIS) of right breast 1 Occurrences starting 02/20/2022 until 03/22/2023 [facility] [employer] Work Phone: Comment on above: 1 Occurrences starting 02/20/2022 until 03/22/2023 End: 10-04-2021 ECHO Complete 2D W Doppler W Color ECHO Complete 2D W Doppler W Color Echocardiography Routine Other form of dyspnea 1 Occurrences starting 10/04/2021 until 10/04/2021 [employer] Work Phone: Comment on above: 1 Occurrences starting 10/04/2021 until 10/04/2021 End: 06-13-2020 Immunofixation serum profile Immunofixation serum profile Lab Routine JIMMIE (acute kidney injury) (HCC) 1 Occurrences starting 06/13/2020 until 06/13/2020 [employer] Comment on above: 1 Occurrences starting 06/13/2020 until 06/13/2020 Immunofixation serum profile Immunofixation serum profile Lab Routine JIMMIE (acute kidney injury) (HCC) 06/13/2020 12:41 PM EST [employer] End: 06-15-2023 LUNG DIFFUSION CAPACITY (DLCO) LUNG DIFFUSION CAPACITY (DLCO) PFT Routine Preoperative testing 1 Occurrences starting 05/16/2022 until 06/15/[address] [employer] [facility] [employer] Work Phone: Comment on above: 1 Occurrences starting 05/16/2022 until 06/15/2023 End: 02-14-2024 [facility]LAH DIAGNOSTIC BILATERAL [facility] B[facility] Radiology Routine 1 Occurrences starting 01/15/2023 until 02/14/[address] [facility] [employer] Work Phone: Comment on above: 1 Occurrences starting 01/15/2023 until 02/14/2024 End: 05-08-2019 KAYLAH DIGITAL SCREEN W CAD BILATERAL KAYLAH DIGITAL SCREEN W CAD BILATERAL Imaging Routine Breast cancer screening by mammogram 1 Occurrences starting 05/08/2019 until 05/08/2019 [facility] Comment on above: 1 Occurrences starting 05/08/2019 until 05/08/2019 KAYLAH DIGITAL SCREEN W CAD BILATERAL [facility] DIGITAL SCREEN W CAD BILATERAL Imaging Routine Breast cancer screening by mammogram 05/08/2019 10:12 AM EST [facility] [place] End: 12-25-2024 MG Breast - bilateral Diagnostic [facility] B[facility] Radiology Routine Ductal carcinoma in situ (DCIS) of right breast 1 Occurrences starting 11/26/2023 until 12/25/2024 [facility] Work Phone: Comment on above: 1 Occurrences starting 11/26/2023 until 12/25/2024 End: 09-16-2025 MG Breast - bilateral Diagnostic [facility] BILATERAL Radiology Routine Ductal carcinoma in situ (DCIS) of right breast 1 Occurrences starting 08/17/2024 until 09/16/2025 [facility] Comment on above: 1 Occurrences starting 08/17/2024 until 09/16/2025 End: 05-31-2023 Mri brain brain stem w/o w/contrast material MRI BRAIN WO/W IVCON Radiology Routine Malignant neoplasm of lung, unspecified laterality, unspecified part of lung (HCC) 1 Occurrences starting 05/01/2022 until 05/31/2023 [facility] Work Phone: Comment on above: 1 Occurrences starting 05/01/2022 until 05/31/2023 [facility] Work Phone: Patient referral [facility] Work Phone: End: 04-11-[address] SKULL BASE TO MID THIGH [facility] Work Phone: Comment on above: 1 Occurrences starting 04/11/2022 until 04/11/2022 End: 10-21-2025 PET+CT Guidance for localization of tumor of Skull base to mid-thigh-- W 18F-FDG IV NM PET/CT SKULL-THIGH SUBSEQUENT Radiology Routine 1 Occurrences starting 09/21/2024 until 10/21/2025 [facility] Work Phone: Comment on above: 1 Occurrences starting 09/21/2024 until 10/21/2025 End: 03-14-2026 PET+CT Guidance for localization of tumor of Skull base to mid-thigh-- W 18F-FDG IV NM PET/CT SKULL-THIGH SUBSEQUENT Radiology Routine Malignant neoplasm of unspecified part of unspecified bronchus or lung (HCC) 1 Occurrences starting 02/12/2025 until 03/14/2026 [facility] Work Phone: Comment on above: 1 Occurrences starting 02/12/2025 until 03/14/2026 PET+CT Guidance for localization of tumor of Skull base to mid-thigh-- W 18F-FDG IV NM PET/CT SKULL-THIGH SUBSEQUENT Radiology Routine Malignant neoplasm of unspecified part of unspecified bronchus or lung (HCC) 02/15/2025 11:41 AM EDT [facility] Work Phone: End: 06-15-2023 Quant differential pulm perfusion w/wo imaging NM LUNG QUANT PERFUSION Radiology Routine Preoperative testing Encounter for preoperative vascular examination 1 Occurrences starting 05/16/2022 until 06/15/2023 [facility] Work Phone: Comment on above: 1 Occurrences starting 05/16/2022 until 06/15/2023 End: 06-15-2023 SIX MINUTE WALK SIX MINUTE WALK PFT Routine Preoperative testing 1 Occurrences starting 05/16/2022 until 06/15/2023 [facility] Work Phone: Comment on above: 1 Occurrences starting 05/16/2022 until 06/15/2023 SIX MINUTE WALK SIX MINUTE WALK PFT Routine Preoperative testing 05/30/2022 4:08 PM EST [facility] Work Phone: End: 06-15-2023 SPIROMETRY BASELINE ONLY SPIROMETRY BASELINE ONLY PFT Routine Preoperative testing 1 Occurrences starting 05/16/2022 until 06/15/2023 [facility] Work Phone: Comment on above: 1 Occurrences starting 05/16/2022 until 06/15/2023 SPIROMETRY BASELINE ONLY SPIROME TRY BASELINE ONLY PFT Routine Preoperative testing 05/30/2022 12:45 PM EST [facility] Work Phone: UA DIP B/O UA DIP B/O Lab R outine Dysuria Ordered: 12/07/2024 [facility] Work Phone: Comment on above: Ordered: 12/07/2024 End: 05-07-2024 US BREAST LTD LEFT US BREAST LTD LEFT Radiology Routine Ductal carcinoma in situ (DCIS) of right breast Abnormal mammogram 1 Occurrences starting 04/08/2023 until 05/07/2024 [facility] Work Phone: Comment on above: 1 Occurrences starting 04/08/2023 until 05/07/2024 End: 05-07-2024 US BREAST LTD RIGHT US BREAST LTD RIGHT Radiology Routine Ductal carcinoma in situ (DCIS) of right breast Abnormal mammogram 1 Occurrences starting 04/08/2023 until 05/07/2024 [facility] Work Phone: Comment on above: 1 Occurrences starting 04/08/2023 until 05/07/2024 End: 05-16-2023 US CAROTID ARTERIES [facility] US CAROTID ARTERIES [facility] Vascular Lab Routine Bilateral carotid artery stenosis 1 Occurrences starting 05/16/2022 until 05/16/2023 [facility] Work Phone: Comment on above: 1 Occurrences starting 05/16/2022 until 05/16/2023 [facility] IR [facility] Immunizations Immunization Date Immunization Notes Care Provider [facility] 05-11-2024 Seasonal trivalent influenza vaccine, adjuvanted, preservative free Jasmyne Casillas SWING FRAME GRINDER OPERATOR - LAMBSKIN TRIMMER Work Phone: [facility] 05-11-2024 influenza virus vacc ine, unspecified formulation Chair Christa Work Phone: [facility] 03-10-2024 COVID-19 (PFIZER) 12Y and older Jasmyne Casillas APRN Work Phone: [facility] 06-26-2023 ABRYSVO - Respirator y syncytial virus (RSV), vaccine, bivalent, protein subunit RSV prefusion F, diluent reconstituted, 0.5 mL, PF Kosta Itzkowitz DO Work Phone: [facility] 04-29-2023 Influenza, Seasonal, Quadrivalent, Adjuvanted Kosta Itzkowitz DO Work Phone: [facility] 04-29-2023 influenza virus vacc ine, unspecified formulation [facility] Work Phone: [facility] 05-29-2022 pneumococcal (PCV20) vaccine, 20 valent (PREVNAR 20) Bryanna Adan MD Work Phone: [facility] 04-19-2022 Moderna Bivalent [facility] Vaccination Kosta Itzkowitz DO Work Phone: [facility] 04-12-2022 influenza, high-dose , quadrivalent vaccine (FLUZONE HIGH DOSE QUADRIVALENT) Bryanna Adan MD Work Phone: [facility] 04-12-2022 influenza virus vacc ine, unspecified formulation Gia Clayton RN [facility] 01-19-2022 COVID-19 original vaccine, age 12+ yr, monovalent (PFIZER-BIONTECH - JONES TOP) Bryanna Adan MD Work Phone: [facility] 09-06-2021 tetanus toxoid, redu bri diphtheria toxoid, and acellular pertussis vaccine, adsorbed [facility] Work Phone: 04-24-2021 influenza, live, intranasal, quadrivalent Kosta Itzkowitz DO Work Phone: [facility] 04-24-2021 Influenza, Quadv, adjuvanted, 65 yrs +, IM, PF (Fluad) [facility] 03-28-2021 COVID-19, Pfizer, PF , 30mcg/0.3mL Jasmyne Casillas APRN - LAMBSKIN TRIMMER Work Phone: [facility] 08-19-2020 COVID-19 vaccine (UNSPECIFIED) Babatunde Pizarro MD Work Phone: [facility] 08-19-2020 COVID-19, Pfizer, PF , 30mcg/0.3mL Jasmyne FoKo SWING FRAME GRINDER OPERATOR - LAMBSKIN TRIMMER Work Phone: [facility] Work Phone: 07-29-2020 COVID-19, Pfizer, PF , 30mcg/0.3mL Jasmyne Delta SWING FRAME GRINDER OPERATOR - LAMBSKIN TRIMMER Work Phone: [facility] Work Phone: 07-19-2020 COVID-19 vaccine (UNSPECIFIED) Babatunde Pizarro MD Work Phone: [facility] 04-20-2020 AS03 adjuvant Babatunde Pizarro MD Work Phone: [facility] 04-20-2020 influenza, injectabl e, quadrivalent, preservative free Babatunde Pizarro MD Work Phone: [facility] 04-20-2020 Seasonal trivalent influenza vaccine, adjuvanted, preservative free [facility] [place] 05-05-2019 influenza, high dose seasonal, preservative-free Jasmyne Casillas SWING FRAME GRINDER OPERATOR - LAMBSKIN TRIMMER Work Phone: [facility] Work Phone: 05-01-2019 influenza nasal, unspecified formulation Bryanna Adan MD Work Phone: [facility] 05-01-2019 influenza virus vacc ine, unspecified formulation Jasmyne FoKo SWING FRAME GRINDER OPERATOR - LAMBSKIN TRIMMER Work Phone: [facility] Work Phone: 03-04-2019 Influenza, FLUAD, (a ge 65 y+), Adjuvanted, 0.5mL [facility] Work Phone: 03-04-2019 influenza, injectabl e, quadrivalent, contains preservative Babatunde Pizarro MD Work Phone: [facility] 10-01-2018 zoster vaccine recombinant [facility], [place] 07-23-2018 zoster vaccine recombinant [facility], [place] 04-30-2018 AS03 adjuvant Kosta Itzkow rubin DO Work Phone: [facility] 04-30-2018 influenza nasal, unspecified formulation Bryanna Adan MD Work Phone: [facility] 04-30-2018 influenza virus vacc ine, unspecified formulation [facility] 04-30-2018 Seasonal trivalent influenza vaccine, adjuvanted, preservative free Babatunde Pizarro MD Work Phone: [facility] 07-25-2017 pneumococcal polysaccharide vaccine, [address] [facility], [place] 05-10-2017 influenza nasal, unspecified formulation Bryanna Adan MD Work Phone: [facility] 05-10-2017 influenza virus vacc ine, unspecified formulation [facility] Work Phone: 05-10-2017 influenza, injectabl e, quadrivalent, preservative free Kosta Itzkowitz DO Work Phone: [facility] 05-08-2017 influenza, injectabl e, quadrivalent, preservative free [facility], [place] 05-28-2016 influenza, injectabl e, quadrivalent, preservative free [facility] 01-25-2016 pneumococcal conjuga te vaccine, 13 valent [facility] 05-02-2015 influenza nasal, unspecified formulation Bryanna Adan MD Work Phone: [facility] 05-02-2015 influenza virus vacc ine, unspecified formulation [facility] 05-02-2015 influenza virus vacc ine, whole virus Babatunde Pizarro MD Work Phone: [facility] 05-07-2014 pneumococcal polysaccharide vaccine, [address] [facility], [place] 04-22-2014 influenza nasal, unspecified formulation Bryanna Adan MD Work Phone: [facility] 04-22-2014 influenza virus vacc ine, unspecified formulation [facility] , [place] 04-22-2014 influenza virus vacc ine, whole virus Babatunde Pizarro MD Work Phone: [facility] 10-26-2013 zoster vaccine, live [place], [place] 05-26-2013 influenza virus vacc ine, unspecified formulation [facility] 05-26-2013 influenza, seasonal, injectable Babatunde Pizarro MD Work Phone: [facility] 11-04-2012 zoster vaccine, live [place] Payers Date Payer Category Payer Unknown [id number] 2014 Unknown [place] [employer] [facility] xxxxxxxxxx 2014-Present [address] [address] [place] [address] xxxxxxxxxx [id number] 2014 Medicare MEDICARE [facility] MEDICARE xxxxxxxxxxx 2014-Present [phone] [address] [address] [place] [address] xxxxxxxxxxx [id number] 2010 Private Health Insurance [id number] 2010 Unknown [id number] 1.13.159.2. [id number] 2006 Medicare [id number]. [id number] 1959 Medicare [id number]. [id number] 1959 Unknown [id number] [id number]. [id number] 1941 Unknown [id number] 2.16.840.1.735487.3.579.2. 647 1941 Unknown [id number] 2.16.840.1.317220.3.579.2. 647 1941 Unknown [id number] 2.16.840.1.704418.3.579.2. 173 1941 Unknown [id number] 2.16.840.1.152767.3.579.2. 593 1941 Unknown [id number] 2.16.840.1.367015.3.579.2. 593 1941 Unknown [id number] 2.16.840.1.689548.3.579.2. 593 1941 Unknown [id number] 2.16.840.1.781791.3.579.2. 593 1941 Unknown [id number] 2.16.840.1.470518.3.579.2. 175 1941 Unknown [id number] 2.16.840.1.762767.3.579.2. 175 1941 Unknown [id number] 2.16.840.1.398175.3.579.2. 174 1941 Unknown [id number] 2.16.840.1.905664.3.579.2. 174 1941 Unknown [id number] 2.16.840.1.214912.3.579.2. 174 1941 Unknown [id number] 2.16.840.1.153347.3.579.2. 174 1941 Unknown [id number] 2.16.840.1.855404.3.579.2. 174 1941 Unknown [id number] 2.16.840.1.767395.3.579.2. 174 1941 Unknown [id number] 2.16.840.1.087094.3.579.2. 1282 1941 Unknown [id number] 2.16.840.1.688227.3.579.2. 1259 1941 Unknown [id number] 2.16.840.1.590967.3.579.2. 1259 1941 Unknown [id number] 2.16.840.1.149111.3.579.2. 1259 1941 Unknown [id number] 2.16.840.1.258120.3.579.2. 1259 1941 Unknown [id number] 2.16.840.1.943343.3.579.2. 1259 1941 Unknown [id number] 2.16.840.1.848763.3.579.2. 727 Medicare [id number] Self-pay Self Pay [id number] Unknown [id number] Social History Date Type Detail Facility Start: 03-09-2019 End: 02-07-2023 Tobacco smoking status NHIS Former smoker [place] Comment on above: pt quit smoking 50 y ears ago Start: 06-16-1963 End: 06-16-1971 History of tobacco use Current sm[place] Start: 06-16-1963 End: 06-16-1971 History of tobacco use Cigarette Sm[place] Start: 03-09-2019 End: 03-09-2025 Cigarettes smoked current (pack per day) - Reported [facility] Start: 03-09-2019 End: 02-22-2025 Alcohol intake Current non-drinker of alcohol (finding) [place] Start: 1940 Sex Assigned At Not on file [place] Start: 12-10-2019 End: 02-07-2023 Tobacco use and exposure Never used [employer] Start: 01-29-2022 End: 06-01-2022 Exposure to SARS-CoV-2 (event) Not sure [employer] Start: 1940 Sex Assigned At Female F [facility] Start: 07-18-2020 End: 06-14-2022 History SDOH Financial 5 [employer] Start: 07-18-2020 End: 06-14-2022 History SDOH Food Worry 1 [employer] Start: 07-18-2020 End: 06-14-2022 History SDOH Transport Med 2 [facility] [place] Exposure to SARS-CoV -2 (event) Unable to assess [employer] Work Phone: Start: 06-08-2013 Tobacco smoking status Never [facility] Comment on above: pt quit smoking 50 y ears ago Start: 01-15-2023 End: 03-09-2025 Sex Assigned At Female [facility] History of tobacco use Passive smoker [facility] Start: 04-23-2022 History SDOH Alcohol Std Drinks 0 [employer] Work Phone: Start: 04-23-2022 History SDOH Physica l Activity DPW 7 [employer] Work Phone: Start: 04-23-2022 History SDOH Physica l Activity MPS 3 [employer] Work Phone: (I/We) worried wheth er (my/our) food would run out before (I/we) got money to buy more. Never true [facility] In the past 12 month s, was there a time when you were not able to pay the mortgage or rent on time? No [facility] Start: 08-13-2023 End: 03-09-2025 Alcohol intake Lifetime non-drinker (finding) [facility] How often to you hav e a drink containing alcohol? Never [employer] Start: 08-10-2012 End: 07-14-2024 Sex Female (finding) [facility] Medical Equipment Procedure Code Equipment Code Equipment Origin al Text Equipment Identifier Dates ORIF, fracture, ankle PLATE2.7MM/3.5MM LCP LATERAL FDA Start: 02-07-2018 ORIF, fracture, ankle PLATE2.7MM/3.5MM LCP LATERAL FDA Start: 02-07-2018 ORIF, fracture, ankle PLATE2.7MM/3.5MM LCP LATERAL FDA Start: 02-07-2018 ORIF, fracture, ankle PLATE2.7MM/3.5MM LCP LATERAL FDA Start: 02-07-2018 ORIF, fracture, ankle PLATE2.7MM/3.5MM LCP LATERAL FDA Start: 02-07-2018 ORIF, fracture, ankle PLATE2.7MM/3.5MM LCP LATERAL FDA Start: 02-07-2018 ORIF, fracture, ankle PLATE2.7MM/3.5MM LCP LATERAL FDA Start: 02-07-2018 ORIF, fracture, ankle PLATE2.7MM/3.5MM LCP LATERAL FDA Start: 02-07-2018 ORIF, fracture, ankle PLATE2.7MM/3.5MM LCP LATERAL FDA Start: 02-07-2018 ORIF, fracture, ankle PLATE2.7MM/3.5MM LCP LATERAL FDA Start: 02-07-2018 ORIF, fracture, ankle PLATE2.7MM/3.5MM LCP LATERAL FDA Start: 02-07-2018 ORIF, fracture, ankle PLATE2.7MM/3.5MM LCP LATERAL FDA Start: 02-07-2018 ORIF, fracture, ankle PLATE2.7MM/3.5MM LCP LATERAL FDA Start: 02-07-2018 ORIF, fracture, ankle PLATE2.7MM/3.5MM LCP LATERAL FDA Start: 02-07-2018 ORIF, fracture, ankle PLATE2.7MM/3.5MM LCP LATERAL FDA Start: 02-07-2018 ORIF, fracture, ankle PLATE2.7MM/3.5MM LCP LATERAL FDA Start: 02-07-2018 ORIF, fracture, ankle SCREW LOCKING 3.5MM X 14MM FDA Start: 02-07-2018 ORIF, fracture, ankle SCREW LOCKING 3.5MM X 14MM FDA Start: 02-07-2018 ORIF, fracture, ankle SCREW LOCKING 3.5MM X 16MM FDA Start: 02-07-2018 ORIF, fracture, ankle SCREW LOCKING 3.5MM X 16MM FDA Start: 02-07-2018 ORIF, fracture, ankle SCREW LOCKING 3.5MM X 18MM FDA Start: 02-07-2018 ORIF, fracture, ankle SCREW LOCKING 3.5MM X 18MM FDA Start: 02-07-2018 ORIF, fracture, ankle SCREW CANNULATED 4.0 X 40MM FDA Start: 02-07-2018 ORIF, fracture, ankle SCREW CANNULATED 4.0 X 40MM FDA Start: 02-07-2018 ORIF, fracture, ankle SCREW CORTEX 3.5MM X 12MM FDA Start: 02-07-2018 ORIF, fracture, ankle SCREW CORTEX 3.5MM X 12MM FDA Start: 02-07-2018 ORIF, fracture, ankle SCREW CORTEX 3.5MM X 12MM FDA Start: 02-07-2018 ORIF, fracture, ankle SCREW CORTEX 3.5MM X 16MM FDA Start: 02-07-2018 ORIF, fracture, ankle SCREW CORTEX 3.5MM X 20MM FDA Start: 02-07-2018 ORIF, fracture, ankle SCREW LOCKING 3.5MM X 12MM FDA Start: 02-07-2018 ORIF, fracture, ankle PLATE2.7MM/3.5MM LCP LATERAL FDA Start: 02-07-2018 ORIF, fracture, ankle SCREW LOCKING 3.5MM X 14MM FDA Start: 02-07-2018 ORIF, fracture, ankle SCREW LOCKING 3.5MM X 14MM FDA Start: 02-07-2018 ORIF, fracture, ankle SCREW LOCKING 3.5MM X 16MM FDA Start: 02-07-2018 ORIF, fracture, ankle SCREW LOCKING 3.5MM X 16MM FDA Start: 02-07-2018 ORIF, fracture, ankle SCREW LOCKING 3.5MM X 18MM FDA Start: 02-07-2018 ORIF, fracture, ankle SCREW LOCKING 3.5MM X 18MM FDA Start: 02-07-2018 ORIF, fracture, ankle SCREW CANNULATED 4.0 X 40MM FDA Start: 02-07-2018 ORIF, fracture, ankle SCREW CANNULATED 4.0 X 40MM FDA Start: 02-07-2018 ORIF, fracture, ankle SCREW CORTEX 3.5MM X 12MM FDA Start: 02-07-2018 ORIF, fracture, ankle SCREW CORTEX 3.5MM X 12MM FDA Start: 02-07-2018 ORIF, fracture, ankle SCREW CORTEX 3.5MM X 12MM FDA Start: 02-07-2018 ORIF, fracture, ankle SCREW CORTEX 3.5MM X 16MM FDA Start: 02-07-2018 ORIF, fracture, ankle SCREW CORTEX 3.5MM X 20MM FDA Start: 02-07-2018 ORIF, fracture, ankle SCREW LOCKING 3.5MM X 12MM FDA Start: 02-07-2018 ORIF, fracture, ankle PLATE2.7MM/3.5MM LCP LATERAL FDA Start: 02-07-2018 ORIF, fracture, ankle SCREW LOCKING 3.5MM X 14MM FDA Start: 02-07-2018 ORIF, fracture, ankle SCREW LOCKING 3.5MM X 14MM FDA Start: 02-07-2018 ORIF, fracture, ankle SCREW LOCKING 3.5MM X 16MM FDA Start: 02-07-2018 ORIF, fracture, ankle SCREW LOCKING 3.5MM X 16MM FDA Start: 02-07-2018 ORIF, fracture, ankle SCREW LOCKING 3.5MM X 18MM FDA Start: 02-07-2018 ORIF, fracture, ankle SCREW LOCKING 3.5MM X 18MM FDA Start: 02-07-2018 ORIF, fracture, ankle SCREW CANNULATED 4.0 X 40MM FDA Start: 02-07-2018 ORIF, fracture, ankle SCREW CANNULATED 4.0 X 40MM FDA Start: 02-07-2018 ORIF, fracture, ankle SCREW CORTEX 3.5MM X 12MM FDA Start: 02-07-2018 ORIF, fracture, ankle SCREW CORTEX 3.5MM X 12MM FDA Start: 02-07-2018 ORIF, fracture, ankle SCREW CORTEX 3.5MM X 12MM FDA Start: 02-07-2018 ORIF, fracture, ankle SCREW CORTEX 3.5MM X 16MM FDA Start: 02-07-2018 ORIF, fracture, ankle SCREW CORTEX 3.5MM X 20MM FDA Start: 02-07-2018 ORIF, fracture, ankle SCREW LOCKING 3.5MM X 12MM FDA Start: 02-07-2018 ORIF, fracture, ankle PLATE2.7MM/3.5MM LCP LATERAL FDA Start: 02-07-2018 ORIF, fracture, ankle SCREW LOCKING 3.5MM X 14MM FDA Start: 02-07-2018 ORIF, fracture, ankle SCREW LOCKING 3.5MM X 14MM FDA Start: 02-07-2018 ORIF, fracture, ankle SCREW LOCKING 3.5MM X 16MM FDA Start: 02-07-2018 ORIF, fracture, ankle SCREW LOCKING 3.5MM X 16MM FDA Start: 02-07-2018 ORIF, fracture, ankle SCREW LOCKING 3.5MM X 18MM FDA Start: 02-07-2018 ORIF, fracture, ankle SCREW LOCKING 3.5MM X 18MM FDA Start: 02-07-2018 ORIF, fracture, ankle SCREW CANNULATED 4.0 X 40MM FDA Start: 02-07-2018 ORIF, fracture, ankle SCREW CANNULATED 4.0 X 40MM FDA Start: 02-07-2018 ORIF, fracture, ankle SCREW CORTEX 3.5MM X 12MM FDA Start: 02-07-2018 ORIF, fracture, ankle SCREW CORTEX 3.5MM X 12MM FDA Start: 02-07-2018 ORIF, fracture, ankle SCREW CORTEX 3.5MM X 12MM FDA Start: 02-07-2018 ORIF, fracture, ankle SCREW CORTEX 3.5MM X 16MM FDA Start: 02-07-2018 ORIF, fracture, ankle SCREW CORTEX 3.5MM X 20MM FDA Start: 02-07-2018 ORIF, fracture, ankle SCREW LOCKING 3.5MM X 12MM FDA Start: 02-07-2018 ORIF, fracture, ankle PLATE2.7MM/3.5MM LCP LATERAL FDA Start: 02-07-2018 ORIF, fracture, ankle SCREW LOCKING 3.5MM X 14MM FDA Start: 02-07-2018 ORIF, fracture, ankle SCREW LOCKING 3.5MM X 14MM FDA Start: 02-07-2018 ORIF, fracture, ankle SCREW LOCKING 3.5MM X 16MM FDA Start: 02-07-2018 ORIF, fracture, ankle SCREW LOCKING 3.5MM X 16MM FDA Start: 02-07-2018 ORIF, fracture, ankle SCREW LOCKING 3.5MM X 18MM FDA Start: 02-07-2018 ORIF, fracture, ankle SCREW LOCKING 3.5MM X 18MM FDA Start: 02-07-2018 ORIF, fracture, ankle SCREW CANNULATED 4.0 X 40MM FDA Start: 02-07-2018 ORIF, fracture, ankle SCREW CANNULATED 4.0 X 40MM FDA Start: 02-07-2018 ORIF, fracture, ankle SCREW CORTEX 3.5MM X 12MM FDA Start: 02-07-2018 ORIF, fracture, ankle SCREW CORTEX 3.5MM X 12MM FDA Start: 02-07-2018 ORIF, fracture, ankle SCREW CORTEX 3.5MM X 12MM FDA Start: 02-07-2018 ORIF, fracture, ankle SCREW CORTEX 3.5MM X 16MM FDA Start: 02-07-2018 ORIF, fracture, ankle SCREW CORTEX 3.5MM X 20MM FDA Start: 02-07-2018 ORIF, fracture, ankle SCREW LOCKING 3.5MM X 12MM FDA Start: 02-07-2018 ORIF, fracture, ankle PLATE2.7MM/3.5MM LCP LATERAL FDA Start: 02-07-2018 ORIF, fracture, ankle SCREW LOCKING 3.5MM X 14MM FDA Start: 02-07-2018 ORIF, fracture, ankle SCREW LOCKING 3.5MM X 14MM FDA Start: 02-07-2018 ORIF, fracture, ankle SCREW LOCKING 3.5MM X 16MM FDA Start: 02-07-2018 ORIF, fracture, ankle SCREW LOCKING 3.5MM X 16MM FDA Start: 02-07-2018 ORIF, fracture, ankle SCREW LOCKING 3.5MM X 18MM FDA Start: 02-07-2018 ORIF, fracture, ankle SCREW LOCKING 3.5MM X 18MM FDA Start: 02-07-2018 ORIF, fracture, ankle SCREW CANNULATED 4.0 X 40MM FDA Start: 02-07-2018 ORIF, fracture, ankle SCREW CANNULATED 4.0 X 40MM FDA Start: 02-07-2018 ORIF, fracture, ankle SCREW CORTEX 3.5MM X 12MM FDA Start: 02-07-2018 ORIF, fracture, ankle SCREW CORTEX 3.5MM X 12MM FDA Start: 02-07-2018 ORIF, fracture, ankle SCREW CORTEX 3.5MM X 12MM FDA Start: 02-07-2018 ORIF, fracture, ankle SCREW CORTEX 3.5MM X 16MM FDA Start: 02-07-2018 ORIF, fracture, ankle SCREW CORTEX 3.5MM X 20MM FDA Start: 02-07-2018 ORIF, fracture, ankle SCREW LOCKING 3.5MM X 12MM FDA Start: 02-07-2018 ORIF, fracture, ankle PLATE2.7MM/3.5MM LCP LATERAL FDA Start: 02-07-2018 ORIF, fracture, ankle SCREW LOCKING 3.5MM X 14MM FDA Start: 02-07-2018 ORIF, fracture, ankle SCREW LOCKING 3.5MM X 14MM FDA Start: 02-07-2018 ORIF, fracture, ankle SCREW LOCKING 3.5MM X 16MM FDA Start: 02-07-2018 ORIF, fracture, ankle SCREW LOCKING 3.5MM X 16MM FDA Start: 02-07-2018 ORIF, fracture, ankle SCREW LOCKING 3.5MM X 18MM FDA Start: 02-07-2018 ORIF, fracture, ankle SCREW LOCKING 3.5MM X 18MM FDA Start: 02-07-2018 ORIF, fracture, ankle SCREW CANNULATED 4.0 X 40MM FDA Start: 02-07-2018 ORIF, fracture, ankle SCREW CANNULATED 4.0 X 40MM FDA Start: 02-07-2018 ORIF, fracture, ankle SCREW CORTEX 3.5MM X 12MM FDA Start: 02-07-2018 ORIF, fracture, ankle SCREW CORTEX 3.5MM X 12MM FDA Start: 02-07-2018 ORIF, fracture, ankle SCREW CORTEX 3.5MM X 12MM FDA Start: 02-07-2018 ORIF, fracture, ankle SCREW CORTEX 3.5MM X 16MM FDA Start: 02-07-2018 ORIF, fracture, ankle SCREW CORTEX 3.5MM X 20MM FDA Start: 02-07-2018 ORIF, fracture, ankle SCREW LOCKING 3.5MM X 12MM FDA Start: 02-07-2018 ORIF, fracture, ankle PLATE2.7MM/3.5MM LCP LATERAL FDA Start: 02-07-2018 ORIF, fracture, ankle SCREW LOCKING 3.5MM X 14MM FDA Start: 02-07-2018 ORIF, fracture, ankle SCREW LOCKING 3.5MM X 14MM FDA Start: 02-07-2018 ORIF, fracture, ankle SCREW LOCKING 3.5MM X 16MM FDA Start: 02-07-2018 ORIF, fracture, ankle SCREW LOCKING 3.5MM X 16MM FDA Start: 02-07-2018 ORIF, fracture, ankle SCREW LOCKING 3.5MM X 18MM FDA Start: 02-07-2018 ORIF, fracture, ankle SCREW LOCKING 3.5MM X 18MM FDA Start: 02-07-2018 ORIF, fracture, ankle SCREW CANNULATED 4.0 X 40MM FDA Start: 02-07-2018 ORIF, fracture, ankle SCREW CANNULATED 4.0 X 40MM FDA Start: 02-07-2018 ORIF, fracture, ankle SCREW CORTEX 3.5MM X 12MM FDA Start: 02-07-2018 ORIF, fracture, ankle SCREW CORTEX 3.5MM X 12MM FDA Start: 02-07-2018 ORIF, fracture, ankle SCREW CORTEX 3.5MM X 12MM FDA Start: 02-07-2018 ORIF, fracture, ankle SCREW CORTEX 3.5MM X 16MM FDA Start: 02-07-2018 ORIF, fracture, ankle SCREW CORTEX 3.5MM X 20MM FDA Start: 02-07-2018 ORIF, fracture, ankle SCREW LOCKING 3.5MM X 12MM FDA Start: 02-07-2018 ORIF, fracture, ankle PLATE2.7MM/3.5MM LCP LATERAL FDA Start: 02-07-2018 ORIF, fracture, ankle SCREW LOCKING 3.5MM X 14MM FDA Start: 02-07-2018 ORIF, fracture, ankle SCREW LOCKING 3.5MM X 14MM FDA Start: 02-07-2018 ORIF, fracture, ankle SCREW LOCKING 3.5MM X 16MM FDA Start: 02-07-2018 ORIF, fracture, ankle SCREW LOCKING 3.5MM X 16MM FDA Start: 02-07-2018 ORIF, fracture, ankle SCREW LOCKING 3.5MM X 18MM FDA Start: 02-07-2018 ORIF, fracture, ankle SCREW LOCKING 3.5MM X 18MM FDA Start: 02-07-2018 ORIF, fracture, ankle SCREW CANNULATED 4.0 X 40MM FDA Start: 02-07-2018 ORIF, fracture, ankle SCREW CANNULATED 4.0 X 40MM FDA Start: 02-07-2018 ORIF, fracture, ankle SCREW CORTEX 3.5MM X 12MM FDA Start: 02-07-2018 ORIF, fracture, ankle SCREW CORTEX 3.5MM X 12MM FDA Start: 02-07-2018 ORIF, fracture, ankle SCREW CORTEX 3.5MM X 12MM FDA Start: 02-07-2018 ORIF, fracture, ankle SCREW CORTEX 3.5MM X 16MM FDA Start: 02-07-2018 ORIF, fracture, ankle SCREW CORTEX 3.5MM X 20MM FDA Start: 02-07-2018 ORIF, fracture, ankle SCREW LOCKING 3.5MM X 12MM FDA Start: 02-07-2018 ORIF, fracture, ankle PLATE2.7MM/3.5MM LCP LATERAL FDA Start: 02-07-2018 ORIF, fracture, ankle SCREW LOCKING 3.5MM X 14MM FDA Start: 02-07-2018 ORIF, fracture, ankle SCREW LOCKING 3.5MM X 14MM FDA Start: 02-07-2018 ORIF, fracture, ankle SCREW LOCKING 3.5MM X 16MM FDA Start: 02-07-2018 ORIF, fracture, ankle SCREW LOCKING 3.5MM X 16MM FDA Start: 02-07-2018 ORIF, fracture, ankle SCREW LOCKING 3.5MM X 18MM FDA Start: 02-07-2018 ORIF, fracture, ankle SCREW LOCKING 3.5MM X 18MM FDA Start: 02-07-2018 ORIF, fracture, ankle SCREW CANNULATED 4.0 X 40MM FDA Start: 02-07-2018 ORIF, fracture, ankle SCREW CANNULATED 4.0 X 40MM FDA Start: 02-07-2018 ORIF, fracture, ankle SCREW CORTEX 3.5MM X 12MM FDA Start: 02-07-2018 ORIF, fracture, ankle SCREW CORTEX 3.5MM X 12MM FDA Start: 02-07-2018 ORIF, fracture, ankle SCREW CORTEX 3.5MM X 12MM FDA Start: 02-07-2018 ORIF, fracture, ankle SCREW CORTEX 3.5MM X 16MM FDA Start: 02-07-2018 ORIF, fracture, ankle SCREW CORTEX 3.5MM X 20MM FDA Start: 02-07-2018 ORIF, fracture, ankle SCREW LOCKING 3.5MM X 12MM FDA Start: 02-07-2018 ORIF, fracture, ankle PLATE2.7MM/3.5MM LCP LATERAL FDA Start: 02-07-2018 ORIF, fracture, ankle SCREW LOCKING 3.5MM X 14MM FDA Start: 02-07-2018 ORIF, fracture, ankle SCREW LOCKING 3.5MM X 14MM FDA Start: 02-07-2018 ORIF, fracture, ankle SCREW LOCKING 3.5MM X 16MM FDA Start: 02-07-2018 ORIF, fracture, ankle SCREW LOCKING 3.5MM X 16MM FDA Start: 02-07-2018 ORIF, fracture, ankle SCREW LOCKING 3.5MM X 18MM FDA Start: 02-07-2018 ORIF, fracture, ankle SCREW LOCKING 3.5MM X 18MM FDA Start: 02-07-2018 ORIF, fracture, ankle SCREW CANNULATED 4.0 X 40MM FDA Start: 02-07-2018 ORIF, fracture, ankle SCREW CANNULATED 4.0 X 40MM FDA Start: 02-07-2018 ORIF, fracture, ankle SCREW CORTEX 3.5MM X 12MM FDA Start: 02-07-2018 ORIF, fracture, ankle SCREW CORTEX 3.5MM X 12MM FDA Start: 02-07-2018 ORIF, fracture, ankle SCREW CORTEX 3.5MM X 12MM FDA Start: 02-07-2018 ORIF, fracture, ankle SCREW CORTEX 3.5MM X 16MM FDA Start: 02-07-2018 ORIF, fracture, ankle SCREW CORTEX 3.5MM X 20MM FDA Start: 02-07-2018 ORIF, fracture, ankle SCREW LOCKING 3.5MM X 12MM FDA Start: 02-07-2018 ORIF, fracture, ankle PLATE2.7MM/3.5MM LCP LATERAL FDA Start: 02-07-2018 ORIF, fracture, ankle SCREW LOCKING 3.5MM X 14MM FDA Start: 02-07-2018 ORIF, fracture, ankle SCREW LOCKING 3.5MM X 14MM FDA Start: 02-07-2018 ORIF, fracture, ankle SCREW LOCKING 3.5MM X 16MM FDA Start: 02-07-2018 ORIF, fracture, ankle SCREW LOCKING 3.5MM X 16MM FDA Start: 02-07-2018 ORIF, fracture, ankle SCREW LOCKING 3.5MM X 18MM FDA Start: 02-07-2018 ORIF, fracture, ankle SCREW LOCKING 3.5MM X 18MM FDA Start: 02-07-2018 ORIF, fracture, ankle SCREW CANNULATED 4.0 X 40MM FDA Start: 02-07-2018 ORIF, fracture, ankle SCREW CANNULATED 4.0 X 40MM FDA Start: 02-07-2018 ORIF, fracture, ankle SCREW CORTEX 3.5MM X 12MM FDA Start: 02-07-2018 ORIF, fracture, ankle SCREW CORTEX 3.5MM X 12MM FDA Start: 02-07-2018 ORIF, fracture, ankle SCREW CORTEX 3.5MM X 12MM FDA Start: 02-07-2018 ORIF, fracture, ankle SCREW CORTEX 3.5MM X 16MM FDA Start: 02-07-2018 ORIF, fracture, ankle SCREW CORTEX 3.5MM X 20MM FDA Start: 02-07-2018 ORIF, fracture, ankle SCREW LOCKING 3.5MM X 12MM FDA Start: 02-07-2018 ORIF, fracture, ankle PLATE2.7MM/3.5MM LCP LATERAL FDA Start: 02-07-2018 ORIF, fracture, ankle SCREW LOCKING 3.5MM X 14MM FDA Start: 02-07-2018 ORIF, fracture, ankle SCREW LOCKING 3.5MM X 14MM FDA Start: 02-07-2018 ORIF, fracture, ankle SCREW LOCKING 3.5MM X 16MM FDA Start: 02-07-2018 ORIF, fracture, ankle SCREW LOCKING 3.5MM X 16MM FDA Start: 02-07-2018 ORIF, fracture, ankle SCREW LOCKING 3.5MM X 18MM FDA Start: 02-07-2018 ORIF, fracture, ankle SCREW LOCKING 3.5MM X 18MM FDA Start: 02-07-2018 ORIF, fracture, ankle SCREW CANNULATED 4.0 X 40MM FDA Start: 02-07-2018 ORIF, fracture, ankle SCREW CANNULATED 4.0 X 40MM FDA Start: 02-07-2018 ORIF, fracture, ankle SCREW CORTEX 3.5MM X 12MM FDA Start: 02-07-2018 ORIF, fracture, ankle SCREW CORTEX 3.5MM X 12MM FDA Start: 02-07-2018 ORIF, fracture, ankle SCREW CORTEX 3.5MM X 12MM FDA Start: 02-07-2018 ORIF, fracture, ankle SCREW CORTEX 3.5MM X 16MM FDA Start: 02-07-2018 ORIF, fracture, ankle SCREW CORTEX 3.5MM X 20MM FDA Start: 02-07-2018 ORIF, fracture, ankle SCREW LOCKING 3.5MM X 12MM FDA Start: 02-07-2018 ORIF, fracture, ankle PLATE2.7MM/3.5MM LCP LATERAL FDA Start: 02-07-2018 ORIF, fracture, ankle SCREW LOCKING 3.5MM X 14MM FDA Start: 02-07-2018 ORIF, fracture, ankle SCREW LOCKING 3.5MM X 14MM FDA Start: 02-07-2018 ORIF, fracture, ankle SCREW LOCKING 3.5MM X 16MM FDA Start: 02-07-2018 ORIF, fracture, ankle SCREW LOCKING 3.5MM X 16MM FDA Start: 02-07-2018 ORIF, fracture, ankle SCREW LOCKING 3.5MM X 18MM FDA Start: 02-07-2018 ORIF, fracture, ankle SCREW LOCKING 3.5MM X 18MM FDA Start: 02-07-2018 ORIF, fracture, ankle SCREW CANNULATED 4.0 X 40MM FDA Start: 02-07-2018 ORIF, fracture, ankle SCREW CANNULATED 4.0 X 40MM FDA Start: 02-07-2018 ORIF, fracture, ankle SCREW CORTEX 3.5MM X 12MM FDA Start: 02-07-2018 ORIF, fracture, ankle SCREW CORTEX 3.5MM X 12MM FDA Start: 02-07-2018 ORIF, fracture, ankle SCREW CORTEX 3.5MM X 12MM FDA Start: 02-07-2018 ORIF, fracture, ankle SCREW CORTEX 3.5MM X 16MM FDA Start: 02-07-2018 ORIF, fracture, ankle SCREW CORTEX 3.5MM X 20MM FDA Start: 02-07-2018 ORIF, fracture, ankle SCREW LOCKING 3.5MM X 12MM FDA Start: 02-07-2018 ORIF, fracture, ankle PLATE2.7MM/3.5MM LCP LATERAL FDA Start: 02-07-2018 ORIF, fracture, ankle SCREW LOCKING 3.5MM X 14MM FDA Start: 02-07-2018 ORIF, fracture, ankle SCREW LOCKING 3.5MM X 14MM FDA Start: 02-07-2018 ORIF, fracture, ankle SCREW LOCKING 3.5MM X 16MM FDA Start: 02-07-2018 ORIF, fracture, ankle SCREW LOCKING 3.5MM X 16MM FDA Start: 02-07-2018 ORIF, fracture, ankle SCREW LOCKING 3.5MM X 18MM FDA Start: 02-07-2018 ORIF, fracture, ankle SCREW LOCKING 3.5MM X 18MM FDA Start: 02-07-2018 ORIF, fracture, ankle SCREW CANNULATED 4.0 X 40MM FDA Start: 02-07-2018 ORIF, fracture, ankle SCREW CANNULATED 4.0 X 40MM FDA Start: 02-07-2018 ORIF, fracture, ankle SCREW CORTEX 3.5MM X 12MM FDA Start: 02-07-2018 ORIF, fracture, ankle SCREW CORTEX 3.5MM X 12MM FDA Start: 02-07-2018 ORIF, fracture, ankle SCREW CORTEX 3.5MM X 12MM FDA Start: 02-07-2018 ORIF, fracture, ankle SCREW CORTEX 3.5MM X 16MM FDA Start: 02-07-2018 ORIF, fracture, ankle SCREW CORTEX 3.5MM X 20MM FDA Start: 02-07-2018 ORIF, fracture, ankle SCREW LOCKING 3.5MM X 12MM FDA Start: 02-07-2018 ORIF, fracture, ankle PLATE2.7MM/3.5MM LCP LATERAL FDA Start: 02-07-2018 ORIF, fracture, ankle SCREW LOCKING 3.5MM X 14MM FDA Start: 02-07-2018 ORIF, fracture, ankle SCREW LOCKING 3.5MM X 14MM FDA Start: 02-07-2018 ORIF, fracture, ankle SCREW LOCKING 3.5MM X 16MM FDA Start: 02-07-2018 ORIF, fracture, ankle SCREW LOCKING 3.5MM X 16MM FDA Start: 02-07-2018 ORIF, fracture, ankle SCREW LOCKING 3.5MM X 18MM FDA Start: 02-07-2018 ORIF, fracture, ankle SCREW LOCKING 3.5MM X 18MM FDA Start: 02-07-2018 ORIF, fracture, ankle SCREW CANNULATED 4.0 X 40MM FDA Start: 02-07-2018 ORIF, fracture, ankle SCREW CANNULATED 4.0 X 40MM FDA Start: 02-07-2018 ORIF, fracture, ankle SCREW CORTEX 3.5MM X 12MM FDA Start: 02-07-2018 ORIF, fracture, ankle SCREW CORTEX 3.5MM X 12MM FDA Start: 02-07-2018 ORIF, fracture, ankle SCREW CORTEX 3.5MM X 12MM FDA Start: 02-07-2018 ORIF, fracture, ankle SCREW CORTEX 3.5MM X 16MM FDA Start: 02-07-2018 ORIF, fracture, ankle SCREW CORTEX 3.5MM X 20MM FDA Start: 02-07-2018 ORIF, fracture, ankle SCREW LOCKING 3.5MM X 12MM FDA Start: 02-07-2018 ORIF, fracture, ankle PLATE2.7MM/3.5MM LCP LATERAL FDA Start: 02-07-2018 ORIF, fracture, ankle SCREW LOCKING 3.5MM X 14MM FDA Start: 02-07-2018 ORIF, fracture, ankle SCREW LOCKING 3.5MM X 14MM FDA Start: 02-07-2018 ORIF, fracture, ankle SCREW LOCKING 3.5MM X 16MM FDA Start: 02-07-2018 ORIF, fracture, ankle SCREW LOCKING 3.5MM X 16MM FDA Start: 02-07-2018 ORIF, fracture, ankle SCREW LOCKING 3.5MM X 18MM FDA Start: 02-07-2018 ORIF, fracture, ankle SCREW LOCKING 3.5MM X 18MM FDA Start: 02-07-2018 ORIF, fracture, ankle SCREW CANNULATED 4.0 X 40MM FDA Start: 02-07-2018 ORIF, fracture, ankle SCREW CANNULATED 4.0 X 40MM FDA Start: 02-07-2018 ORIF, fracture, ankle SCREW CORTEX 3.5MM X 12MM FDA Start: 02-07-2018 ORIF, fracture, ankle SCREW CORTEX 3.5MM X 12MM FDA Start: 02-07-2018 ORIF, fracture, ankle SCREW CORTEX 3.5MM X 12MM FDA Start: 02-07-2018 ORIF, fracture, ankle SCREW CORTEX 3.5MM X 16MM FDA Start: 02-07-2018 ORIF, fracture, ankle SCREW CORTEX 3.5MM X 20MM FDA Start: 02-07-2018 ORIF, fracture, ankle SCREW LOCKING 3.5MM X 12MM FDA Start: 02-07-2018 ORIF, fracture, ankle PLATE2.7MM/3.5MM LCP LATERAL FDA Start: 02-07-2018 ORIF, fracture, ankle SCREW LOCKING 3.5MM X 14MM FDA Start: 02-07-2018 ORIF, fracture, ankle SCREW LOCKING 3.5MM X 14MM FDA Start: 02-07-2018 ORIF, fracture, ankle SCREW LOCKING 3.5MM X 16MM FDA Start: 02-07-2018 ORIF, fracture, ankle SCREW LOCKING 3.5MM X 16MM FDA Start: 02-07-2018 ORIF, fracture, ankle SCREW LOCKING 3.5MM X 18MM FDA Start: 02-07-2018 ORIF, fracture, ankle SCREW LOCKING 3.5MM X 18MM FDA Start: 02-07-2018 ORIF, fracture, ankle SCREW CANNULATED 4.0 X 40MM FDA Start: 02-07-2018 ORIF, fracture, ankle SCREW CANNULATED 4.0 X 40MM FDA Start: 02-07-2018 ORIF, fracture, ankle SCREW CORTEX 3.5MM X 12MM FDA Start: 02-07-2018 ORIF, fracture, ankle SCREW CORTEX 3.5MM X 12MM FDA Start: 02-07-2018 ORIF, fracture, ankle SCREW CORTEX 3.5MM X 12MM FDA Start: 02-07-2018 ORIF, fracture, ankle SCREW CORTEX 3.5MM X 16MM FDA Start: 02-07-2018 ORIF, fracture, ankle SCREW CORTEX 3.5MM X 20MM FDA Start: 02-07-2018 ORIF, fracture, ankle SCREW LOCKING 3.5MM X 12MM FDA Start: 02-07-2018 ORIF, fracture, ankle PLATE2.7MM/3.5MM LCP LATERAL FDA Start: 02-07-2018 ORIF, fracture, ankle SCREW LOCKING 3.5MM X 14MM FDA Start: 02-07-2018 ORIF, fracture, ankle SCREW LOCKING 3.5MM X 14MM FDA Start: 02-07-2018 ORIF, fracture, ankle SCREW LOCKING 3.5MM X 16MM FDA Start: 02-07-2018 ORIF, fracture, ankle SCREW LOCKING 3.5MM X 16MM FDA Start: 02-07-2018 ORIF, fracture, ankle SCREW LOCKING 3.5MM X 18MM FDA Start: 02-07-2018 ORIF, fracture, ankle SCREW LOCKING 3.5MM X 18MM FDA Start: 02-07-2018 ORIF, fracture, ankle SCREW CANNULATED 4.0 X 40MM FDA Start: 02-07-2018 ORIF, fracture, ankle SCREW CANNULATED 4.0 X 40MM FDA Start: 02-07-2018 ORIF, fracture, ankle SCREW CORTEX 3.5MM X 12MM FDA Start: 02-07-2018 ORIF, fracture, ankle SCREW CORTEX 3.5MM X 12MM FDA Start: 02-07-2018 ORIF, fracture, ankle SCREW CORTEX 3.5MM X 12MM FDA Start: 02-07-2018 ORIF, fracture, ankle SCREW CORTEX 3.5MM X 16MM FDA Start: 02-07-2018 ORIF, fracture, ankle SCREW CORTEX 3.5MM X 20MM FDA Start: 02-07-2018 ORIF, fracture, ankle SCREW LOCKING 3.5MM X 12MM FDA Start: 02-07-2018 ORIF, fracture, ankle PLATE2.7MM/3.5MM LCP LATERAL FDA Start: 02-07-2018 ORIF, fracture, ankle SCREW LOCKING 3.5MM X 14MM FDA Start: 02-07-2018 ORIF, fracture, ankle SCREW LOCKING 3.5MM X 14MM FDA Start: 02-07-2018 ORIF, fracture, ankle SCREW LOCKING 3.5MM X 16MM FDA Start: 02-07-2018 ORIF, fracture, ankle SCREW LOCKING 3.5MM X 16MM FDA Start: 02-07-2018 ORIF, fracture, ankle SCREW LOCKING 3.5MM X 18MM FDA Start: 02-07-2018 ORIF, fracture, ankle SCREW LOCKING 3.5MM X 18MM FDA Start: 02-07-2018 ORIF, fracture, ankle SCREW CANNULATED 4.0 X 40MM FDA Start: 02-07-2018 ORIF, fracture, ankle SCREW CANNULATED 4.0 X 40MM FDA Start: 02-07-2018 ORIF, fracture, ankle SCREW CORTEX 3.5MM X 12MM FDA Start: 02-07-2018 ORIF, fracture, ankle SCREW CORTEX 3.5MM X 12MM FDA Start: 02-07-2018 ORIF, fracture, ankle SCREW CORTEX 3.5MM X 12MM FDA Start: 02-07-2018 ORIF, fracture, ankle SCREW CORTEX 3.5MM X 16MM FDA Start: 02-07-2018 ORIF, fracture, ankle SCREW CORTEX 3.5MM X 20MM FDA Start: 02-07-2018 ORIF, fracture, ankle SCREW LOCKING 3.5MM X 12MM FDA Start: 02-07-2018 ORIF, fracture, ankle PLATE2.7MM/3.5MM LCP LATERAL FDA Start: 02-07-2018 ORIF, fracture, ankle SCREW LOCKING 3.5MM X 14MM FDA Start: 02-07-2018 ORIF, fracture, ankle SCREW LOCKING 3.5MM X 14MM FDA Start: 02-07-2018 ORIF, fracture, ankle SCREW LOCKING 3.5MM X 16MM FDA Start: 02-07-2018 ORIF, fracture, ankle SCREW LOCKING 3.5MM X 16MM FDA Start: 02-07-2018 ORIF, fracture, ankle SCREW LOCKING 3.5MM X 18MM FDA Start: 02-07-2018 ORIF, fracture, ankle SCREW LOCKING 3.5MM X 18MM FDA Start: 02-07-2018 ORIF, fracture, ankle SCREW CANNULATED 4.0 X 40MM FDA Start: 02-07-2018 ORIF, fracture, ankle SCREW CANNULATED 4.0 X 40MM FDA Start: 02-07-2018 ORIF, fracture, ankle SCREW CORTEX 3.5MM X 12MM FDA Start: 02-07-2018 ORIF, fracture, ankle SCREW CORTEX 3.5MM X 12MM FDA Start: 02-07-2018 ORIF, fracture, ankle SCREW CORTEX 3.5MM X 12MM FDA Start: 02-07-2018 ORIF, fracture, ankle SCREW CORTEX 3.5MM X 16MM FDA Start: 02-07-2018 ORIF, fracture, ankle SCREW CORTEX 3.5MM X 20MM FDA Start: 02-07-2018 ORIF, fracture, ankle SCREW LOCKING 3.5MM X 12MM FDA Start: 02-07-2018 ORIF, fracture, ankle PLATE2.7MM/3.5MM LCP LATERAL FDA Start: 02-07-2018 ORIF, fracture, ankle SCREW LOCKING 3.5MM X 14MM FDA Start: 02-07-2018 ORIF, fracture, ankle SCREW LOCKING 3.5MM X 14MM FDA Start: 02-07-2018 ORIF, fracture, ankle SCREW LOCKING 3.5MM X 16MM FDA Start: 02-07-2018 ORIF, fracture, ankle SCREW LOCKING 3.5MM X 16MM FDA Start: 02-07-2018 ORIF, fracture, ankle SCREW LOCKING 3.5MM X 18MM FDA Start: 02-07-2018 ORIF, fracture, ankle SCREW LOCKING 3.5MM X 18MM FDA Start: 02-07-2018 ORIF, fracture, ankle SCREW CANNULATED 4.0 X 40MM FDA Start: 02-07-2018 ORIF, fracture, ankle SCREW CANNULATED 4.0 X 40MM FDA Start: 02-07-2018 ORIF, fracture, ankle SCREW CORTEX 3.5MM X 12MM FDA Start: 02-07-2018 ORIF, fracture, ankle SCREW CORTEX 3.5MM X 12MM FDA Start: 02-07-2018 ORIF, fracture, ankle SCREW CORTEX 3.5MM X 12MM FDA Start: 02-07-2018 ORIF, fracture, ankle SCREW CORTEX 3.5MM X 16MM FDA Start: 02-07-2018 ORIF, fracture, ankle SCREW CORTEX 3.5MM X 20MM FDA Start: 02-07-2018 ORIF, fracture, ankle SCREW LOCKING 3.5MM X 12MM FDA Start: 02-07-2018 ORIF, fracture, ankle PLATE2.7MM/3.5MM LCP LATERAL FDA Start: 02-07-2018 ORIF, fracture, ankle SCREW LOCKING 3.5MM X 14MM FDA Start: 02-07-2018 ORIF, fracture, ankle SCREW LOCKING 3.5MM X 14MM FDA Start: 02-07-2018 ORIF, fracture, ankle SCREW LOCKING 3.5MM X 16MM FDA Start: 02-07-2018 ORIF, fracture, ankle SCREW LOCKING 3.5MM X 16MM FDA Start: 02-07-2018 ORIF, fracture, ankle SCREW LOCKING 3.5MM X 18MM FDA Start: 02-07-2018 ORIF, fracture, ankle SCREW LOCKING 3.5MM X 18MM FDA Start: 02-07-2018 ORIF, fracture, ankle SCREW CANNULATED 4.0 X 40MM FDA Start: 02-07-2018 ORIF, fracture, ankle SCREW CANNULATED 4.0 X 40MM FDA Start: 02-07-2018 ORIF, fracture, ankle SCREW CORTEX 3.5MM X 12MM FDA Start: 02-07-2018 ORIF, fracture, ankle SCREW CORTEX 3.5MM X 12MM FDA Start: 02-07-2018 ORIF, fracture, ankle SCREW CORTEX 3.5MM X 12MM FDA Start: 02-07-2018 ORIF, fracture, ankle SCREW CORTEX 3.5MM X 16MM FDA Start: 02-07-2018 ORIF, fracture, ankle SCREW CORTEX 3.5MM X 20MM FDA Start: 02-07-2018 ORIF, fracture, ankle SCREW LOCKING 3.5MM X 12MM FDA Start: 02-07-2018 ORIF, fracture, ankle PLATE2.7MM/3.5MM LCP LATERAL FDA Start: 02-07-2018 ORIF, fracture, ankle SCREW LOCKING 3.5MM X 14MM FDA Start: 02-07-2018 ORIF, fracture, ankle SCREW LOCKING 3.5MM X 14MM FDA Start: 02-07-2018 ORIF, fracture, ankle SCREW LOCKING 3.5MM X 16MM FDA Start: 02-07-2018 ORIF, fracture, ankle SCREW LOCKING 3.5MM X 16MM FDA Start: 02-07-2018 ORIF, fracture, ankle SCREW LOCKING 3.5MM X 18MM FDA Start: 02-07-2018 ORIF, fracture, ankle SCREW LOCKING 3.5MM X 18MM FDA Start: 02-07-2018 ORIF, fracture, ankle SCREW CANNULATED 4.0 X 40MM FDA Start: 02-07-2018 ORIF, fracture, ankle SCREW CANNULATED 4.0 X 40MM FDA Start: 02-07-2018 ORIF, fracture, ankle SCREW CORTEX 3.5MM X 12MM FDA Start: 02-07-2018 ORIF, fracture, ankle SCREW CORTEX 3.5MM X 12MM FDA Start: 02-07-2018 ORIF, fracture, ankle SCREW CORTEX 3.5MM X 12MM FDA Start: 02-07-2018 ORIF, fracture, ankle SCREW CORTEX 3.5MM X 16MM FDA Start: 02-07-2018 ORIF, fracture, ankle SCREW CORTEX 3.5MM X 20MM FDA Start: 02-07-2018 ORIF, fracture, ankle SCREW LOCKING 3.5MM X 12MM FDA Start: 02-07-2018 ORIF, fracture, ankle PLATE2.7MM/3.5MM LCP LATERAL FDA Start: 02-07-2018 ORIF, fracture, ankle SCREW LOCKING 3.5MM X 14MM FDA Start: 02-07-2018 ORIF, fracture, ankle SCREW LOCKING 3.5MM X 14MM FDA Start: 02-07-2018 ORIF, fracture, ankle SCREW LOCKING 3.5MM X 16MM FDA Start: 02-07-2018 ORIF, fracture, ankle SCREW LOCKING 3.5MM X 16MM FDA Start: 02-07-2018 ORIF, fracture, ankle SCREW LOCKING 3.5MM X 18MM FDA Start: 02-07-2018 ORIF, fracture, ankle SCREW LOCKING 3.5MM X 18MM FDA Start: 02-07-2018 ORIF, fracture, ankle SCREW CANNULATED 4.0 X 40MM FDA Start: 02-07-2018 ORIF, fracture, ankle SCREW CANNULATED 4.0 X 40MM FDA Start: 02-07-2018 ORIF, fracture, ankle SCREW CORTEX 3.5MM X 12MM FDA Start: 02-07-2018 ORIF, fracture, ankle SCREW CORTEX 3.5MM X 12MM FDA Start: 02-07-2018 ORIF, fracture, ankle SCREW CORTEX 3.5MM X 12MM FDA Start: 02-07-2018 ORIF, fracture, ankle SCREW CORTEX 3.5MM X 16MM FDA Start: 02-07-2018 ORIF, fracture, ankle SCREW CORTEX 3.5MM X 20MM FDA Start: 02-07-2018 ORIF, fracture, ankle SCREW LOCKING 3.5MM X 12MM FDA Start: 02-07-2018 ORIF, fracture, ankle PLATE2.7MM/3.5MM LCP LATERAL FDA Start: 02-07-2018 ORIF, fracture, ankle SCREW LOCKING 3.5MM X 14MM FDA Start: 02-07-2018 ORIF, fracture, ankle SCREW LOCKING 3.5MM X 14MM FDA Start: 02-07-2018 ORIF, fracture, ankle SCREW LOCKING 3.5MM X 16MM FDA Start: 02-07-2018 ORIF, fracture, ankle SCREW LOCKING 3.5MM X 16MM FDA Start: 02-07-2018 ORIF, fracture, ankle SCREW LOCKING 3.5MM X 18MM FDA Start: 02-07-2018 ORIF, fracture, ankle SCREW LOCKING 3.5MM X 18MM FDA Start: 02-07-2018 ORIF, fracture, ankle SCREW CANNULATED 4.0 X 40MM FDA Start: 02-07-2018 ORIF, fracture, ankle SCREW CANNULATED 4.0 X 40MM FDA Start: 02-07-2018 ORIF, fracture, ankle SCREW CORTEX 3.5MM X 12MM FDA Start: 02-07-2018 ORIF, fracture, ankle SCREW CORTEX 3.5MM X 12MM FDA Start: 02-07-2018 ORIF, fracture, ankle SCREW CORTEX 3.5MM X 12MM FDA Start: 02-07-2018 ORIF, fracture, ankle SCREW CORTEX 3.5MM X 16MM FDA Start: 02-07-2018 ORIF, fracture, ankle SCREW CORTEX 3.5MM X 20MM FDA Start: 02-07-2018 ORIF, fracture, ankle SCREW LOCKING 3.5MM X 12MM FDA Start: 02-07-2018 ORIF, fracture, ankle PLATE2.7MM/3.5MM LCP LATERAL FDA Start: 02-07-2018 ORIF, fracture, ankle SCREW LOCKING 3.5MM X 14MM FDA Start: 02-07-2018 ORIF, fracture, ankle SCREW LOCKING 3.5MM X 14MM FDA Start: 02-07-2018 ORIF, fracture, ankle SCREW LOCKING 3.5MM X 16MM FDA Start: 02-07-2018 ORIF, fracture, ankle SCREW LOCKING 3.5MM X 16MM FDA Start: 02-07-2018 ORIF, fracture, ankle SCREW LOCKING 3.5MM X 18MM FDA Start: 02-07-2018 ORIF, fracture, ankle SCREW LOCKING 3.5MM X 18MM FDA Start: 02-07-2018 ORIF, fracture, ankle SCREW CANNULATED 4.0 X 40MM FDA Start: 02-07-2018 ORIF, fracture, ankle SCREW CANNULATED 4.0 X 40MM FDA Start: 02-07-2018 ORIF, fracture, ankle SCREW CORTEX 3.5MM X 12MM FDA Start: 02-07-2018 ORIF, fracture, ankle SCREW CORTEX 3.5MM X 12MM FDA Start: 02-07-2018 ORIF, fracture, ankle SCREW CORTEX 3.5MM X 12MM FDA Start: 02-07-2018 ORIF, fracture, ankle SCREW CORTEX 3.5MM X 16MM FDA Start: 02-07-2018 ORIF, fracture, ankle SCREW CORTEX 3.5MM X 20MM FDA Start: 02-07-2018 ORIF, fracture, ankle SCREW LOCKING 3.5MM X 12MM FDA Start: 02-07-2018 ORIF, fracture, ankle PLATE2.7MM/3.5MM LCP LATERAL FDA Start: 02-07-2018 ORIF, fracture, ankle SCREW LOCKING 3.5MM X 14MM FDA Start: 02-07-2018 ORIF, fracture, ankle SCREW LOCKING 3.5MM X 14MM FDA Start: 02-07-2018 ORIF, fracture, ankle SCREW LOCKING 3.5MM X 16MM FDA Start: 02-07-2018 ORIF, fracture, ankle SCREW LOCKING 3.5MM X 16MM FDA Start: 02-07-2018 ORIF, fracture, ankle SCREW LOCKING 3.5MM X 18MM FDA Start: 02-07-2018 ORIF, fracture, ankle SCREW LOCKING 3.5MM X 18MM FDA Start: 02-07-2018 ORIF, fracture, ankle SCREW CANNULATED 4.0 X 40MM FDA Start: 02-07-2018 ORIF, fracture, ankle SCREW CANNULATED 4.0 X 40MM FDA Start: 02-07-2018 ORIF, fracture, ankle SCREW CORTEX 3.5MM X 12MM FDA Start: 02-07-2018 ORIF, fracture, ankle SCREW CORTEX 3.5MM X 12MM FDA Start: 02-07-2018 ORIF, fracture, ankle SCREW CORTEX 3.5MM X 12MM FDA Start: 02-07-2018 ORIF, fracture, ankle SCREW CORTEX 3.5MM X 16MM FDA Start: 02-07-2018 ORIF, fracture, ankle SCREW CORTEX 3.5MM X 20MM FDA Start: 02-07-2018 ORIF, fracture, ankle SCREW LOCKING 3.5MM X 12MM FDA Start: 02-07-2018 ORIF, fracture, ankle PLATE2.7MM/3.5MM LCP LATERAL FDA Start: 02-07-2018 ORIF, fracture, ankle SCREW LOCKING 3.5MM X 14MM FDA Start: 02-07-2018 ORIF, fracture, ankle SCREW LOCKING 3.5MM X 14MM FDA Start: 02-07-2018 ORIF, fracture, ankle SCREW LOCKING 3.5MM X 16MM FDA Start: 02-07-2018 ORIF, fracture, ankle SCREW LOCKING 3.5MM X 16MM FDA Start: 02-07-2018 ORIF, fracture, ankle SCREW LOCKING 3.5MM X 18MM FDA Start: 02-07-2018 ORIF, fracture, ankle SCREW LOCKING 3.5MM X 18MM FDA Start: 02-07-2018 ORIF, fracture, ankle SCREW CANNULATED 4.0 X 40MM FDA Start: 02-07-2018 ORIF, fracture, ankle SCREW CANNULATED 4.0 X 40MM FDA Start: 02-07-2018 ORIF, fracture, ankle SCREW CORTEX 3.5MM X 12MM FDA Start: 02-07-2018 ORIF, fracture, ankle SCREW CORTEX 3.5MM X 12MM FDA Start: 02-07-2018 ORIF, fracture, ankle SCREW CORTEX 3.5MM X 12MM FDA Start: 02-07-2018 ORIF, fracture, ankle SCREW CORTEX 3.5MM X 16MM FDA Start: 02-07-2018 ORIF, fracture, ankle SCREW CORTEX 3.5MM X 20MM FDA Start: 02-07-2018 ORIF, fracture, ankle SCREW LOCKING 3.5MM X 12MM FDA Start: 02-07-2018 Biopsy, breast, with lumpectomy Imaging lesion localization marker, implantable ()[id number] FDA Start: 06-21-2020 Arthroplasty, knee, total, minimally invasive Orthopaedic cement, non-medicated ()[id number])[id number] FDA Start: 07-27-2024 Arthroplasty, knee, total, minimally invasive Uncoated knee femur prosthesis ()[id number] FDA Start: 07-27-2024 Arthroplasty, knee, total, minimally invasive Tibial insert ()[id number] FDA Start: 07-27-2024 Arthroplasty, knee, total, minimally invasive Polyethylene patella prosthesis ()[id number] FDA Start: 07-27-2024 Arthroplasty, knee, total, minimally invasive Knee stem ()[id number] FDA Start: 07-27-2024 Arthroplasty, knee, total, minimally invasive Uncoated knee tibia prosthesis, metallic ()[id number])[id number] FDA Start: 07-27-2024 [id number] FDA Start: 08-10-2016 1 each by In Vit ro route daily Contour one monitor checks daily and prn E 11.9 [id number] Start: 07-08-2019 Lrn-Kl-M-Kind Implant - [id number] Start: 07-27-2015 Comment on above: Description: Bone Ce ment Pou-Kb-T-Kind Implant - [id number] Start: 07-27-2015 Comment on above: Description: Femoral Component Baseplate Legion 2 Tibial Revision Knee Right - [id number] Start: 07-27-2015 Comment on above: Description: Tibial Baseplate Restrictor Anderson 18.5mm 18.5 Cement Sterile Latex Free Femur Hip - [id number] Start: 07-27-2015 Comment on above: Description: Cement Restrictor Mhz-If-H-Kind Implant - [id number] Start: 06-13-2022 Gxl-Eu-I-Kind Implant - [id number] Start: 07-27-2015 Comment on above: Description: 4mm Leg ion Offset Insurance Claims Analyst Klz-Hj-E-Kind Implant - [id number] Start: 07-27-2015 Comment on above: Description: Legion Offset Insurance Claims Analyst Wedge Legion 4 5 mm Femoral Screw Knee - [id number] Start: 07-27-2015 Comment on above: Description: Femoral Screw Prk-Nm-E-Kind Implant - [id number] Start: 07-27-2015 Xwp-Jg-Z-Kind Implant - [id number] Start: 07-27-2015 Comment on above: Description: Screw o n tibial wedge Stem Legion 12mm 120mm Femoral Press Fit Knee - [id number] Start: 07-27-2015 Comment on above: Description: Stem Stem Legion 16mm 120mm Femoral Press Fit Knee - [id number] Start: 07-27-2015 Comment on above: Description: Stem Insert Legion 1- 2 Xlpe 15mm Tibial Posterior Stabilized High Flexion Knee - [id number] Start: 07-27-2015 Comment on above: Description: Articul ar Insert 1 each by In Vit ro route daily Contour one monitor checks daily and prn E 11.9 [id number] Start: 06-08-2024 Goals Date Patient Goal Desired Activity /State Personal health goal Functional Status Date Assessment Result Facility 11-30-2024 Total score [AUDIT-C] 0 12/01/19 9:40 AM Dionna Sage MA [facility] 08-02-2024 Functional status Patient at Baseline [facility] Work Phone: 07-28-2024 Functional status Patient is Pro gressing Toward Baseline [facility] Work Phone: 06-24-2022 Are you deaf, or do you have serious difficulty hearing No 06/24/2022 1:01 PM Karis Harrison, REBECCA No [facility] 06-24-2022 Are you blind, or do you have serious difficulty seeing, even when wearing glasses No 06/24/2022 1:01 PM Karis Harrison, RN No [facility] 06-24-2022 Do you have serious difficulty walking or climbing stairs No 06/24/2022 1:01 PM Karis Harrison, RN No [facility] 06-24-2022 Do you have difficul ty dressing or bathing No 06/24/2022 1:01 PM Karis Harrison, RN [facility] 06-24-2022 Because of a physica l, mental, or emotional condition, do you have difficulty doing errands alone such as visiting a physician's office or shopping No 06/24/2022 1:01 PM Karis Harrison, RN No [facility] Mental Status Date Assessment Result Facility 08-02-2024 Cognitive function Cognitive Sta tus Patient at Baseline [facility] Work Phone: 07-28-2024 Cognitive function Cognitive Sta tus Patient at Baseline [facility] Work Phone: 06-24-2022 Because of a physica l, mental, or emotional condition, do you have serious difficulty concentrating, remembering, or making decisions No 06/24/2022 1:01 PM Karis Harrison, RN No [facility] Clinical Notes 08-01-2013 to 03-26-2025 Jovan Lema DO - 03/26/2025 1:00 PM EDTJovan Lema, DO - 03/09/2025 2:15 PM Binu Angel MD - 02/26/2025 10:00 AM EDTTelephone Encounter - Kerry Ward - 02/25/2025 8:42 AM EDT Note Date & Type Note Facility 03-26-2025 Note Pre-op Diagnosis: Be nign Lesion Post-op Diagnosis: Same Procedure: Lesion Excision Anesthesia: Local EBL: Minimal Complications: None Procedure: The patient was brought to the surgical suite and pt as well as site identification was performed. R/B/A/E were provided for the procedure above and consent was obtained. Local anesthesia was performed with 2%lidocaine with epi. Approximately, 0.4ccs was applied beneath the lesion. The eye was then prepped and draped in a sterile ophthalmic fashion. The top of the lesion was grasped with forceps and the lesion amputated with gee scissors. The base of the wound was cauterized or hemostasis. Tobradex was applied to the wound and the pt was sent to the waiting room in satisfactory condition. [facility] 03-26-2025 History of Present illness Narrative Images from the original note were not included. Assessment/Plan Diagnoses and all orders for this visit: Cyst of left lower eyelid - The patient has a growth on the eyelid that has benign characteristics. However, the pt notes that it has grown and at times causes irritation and itches. They requested its removal. R/B/A/E provided for excision. - Excision of Benign Lesion < 0.5 cm Pre-op Diagnosis: Benign Lesion Post-op Diagnosis: Same Procedure: Lesion Excision Anesthesia: Local EBL: Minimal Complications: None Procedure: The patient was brought to the surgical suite and pt as well as site identification was performed. R/B/A/E were provided for the procedure above and consent was obtained. Local anesthesia was performed with 2%lidocaine with epi. Approximately, 0.4ccs was applied beneath the lesion. The eye was then prepped and draped in a sterile ophthalmic fashion. The top of the lesion was grasped with forceps and the lesion amputated with gee scissors. The base of the wound was cauterized or hemostasis. Tobradex was applied to the wound and the pt was sent to the waiting room in satisfactory condition. Basal cell carcinoma (BCC) of left lower eyelid - At the time of the planned above procedure, Ms. Bradford pointed out the presence of a nodular lesion inferior to the lid cyst. This was palpated and examined and believed to be suspicious for malignancy - basal cell carcinoma. Given the size and characteristics of the lesion, I advised for an incisional biopsy. R/B/A/E provided for the procedure above. Incision was performed with a #15 blade in a wedge fashion after local anesthesia was applied sub-lesionally. The specimen was sent to pathology for identification. The wound base was cauterized and Emycin venkat was applied. documented in this encounter [facility] 03-09-2025 History of Present illness Narrative Images from the original note were not included. Assessment/Plan Diagnoses and all orders for this visit: Left posterior capsular opacification - PCO OS: (Posterior Capsule Opacification) Can be observed without intervention if PCO is not visually significant. Nd:YAG laser capsulotomy may be considered if impairment of vision rises to a level that dose not meet the patient's functional needs or interferes with activities of daily living. Risks, benefits and alternatives to the procedure will be reviewed. If the patient has undergone Nd:YAG laser capsulotomy, they are to notify their door framer promptly if they have a significant change in symptoms, such as flashes of light (photopsia), an increase in floaters, loss of visual field or decrease in visual acuity. Dry eyes - Dry Eyes OU -- Environmental changes to minimize dryness and exposure and the use of artificial tears were recommended. Blepharitis of upper and lower eyelids of both eyes, unspecified type - Blepharitis, posterior type OU - The patient exhibits inspissated meibomian glands. Warm compresses, lid massage and lid scrubs were recommended. Cyst of left lower lid (LLL): - The patient has a growth on the eyelid that has benign characteristics. However, the pt notes that it has grown and at times causes irritation and itches. They requested its removal. R/B/A/E provided for excision. documented in this encounter [facility] 02-26-2025 Note HNO ID: [id number] Author: BINU UPTON MD Service: ? Author Type: Physician Type: Progress Notes Filed: 02/26/2025 10:23 Note Text: [facility] [place] DEPARTMENT OF VASCULAR SURGERY OUTPATIENT VISIT TYPE CONSULTATION PRIMARY CARE PHYSICIAN: Jasmyne Casillas, DRESSING ROOM ATTENDANT, LAMBSKIN TRIMMER REFERRING PROVIDER: Katie Cook [address] [place] [address] [place] [address] Consult requested for an opinion regarding the evaluation and treatment of the above. My final impression and recommendations will be communicated back to the requesting physician by way of the shared medical record or letter via [place] mail. CHIEF COMPLAINT AAA HISTORY OF PRESENT ILLNESS: The patient is an 84-year-old female with a history of cancer, presenting for evaluation of a penetrating atherosclerotic ulcer (KARINE) identified on a recent CT scan. The patient underwent a PET scan in 2021 for cancer follow-up, which revealed a KARINE. A recent CT scan confirmed the presence of the KARINE, measuring 8 mm in depth and 13 mm in length, with no significant growth observed over the past three years. She denies any symptoms such as abdominal pain, back pain, or flank pain. She has a history of smoking but has since quit. She denies any history of hypertension or diabetes. Tobacco Use: .5 packs/day, for 7 years. Quit 06/16/1971. 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 Aortic valve stenosis mild Arthritis Asthma controlled no inhalers Coronary artery disease Hypercholesteremia Hypertension Polymyalgia rheumatica (HCC) PAST SURGICAL HISTORY Procedure Laterality Date APPENDECTOMY 07/01/1978 ARTHROSCOPY KNEE MEDIAL RELEASE 2002,2010 rt AND Lt knee ARTHRP KNE CONDYLEANDPLATU MEDIALANDLAT COMPARTMENTS Right 07/01/2013 right x2 BREAST LUMPECTOMY HX BUNIONECTOMY, LAPIDUS-TYPE 07/01/2010 rt toe CHOLECYSTECTOMY 07/01/2005 COLONOSCOPY AND POLYPECTOMY 2004, 2005, 2009 x 3 CYSTO LASER TX URETERAL CALC 07/01/2009 stent placement CYSTO W/RETROGRADE x 6 DANDC (INCOMPLETE AB), ANY TRIMESTER 07/01/1974 EXCISE EXCESS SKIN TISSUE,ABDOMEN 07/01/1994 Abdominalplasty KNEE SURGERY HX Left 07/27/2024 LITHOTRIPSY PROC UNILATERAL 07/01/1985 rt kidney PAST SURGICAL HISTORY OF 12/03/2019 CABG 1v, cryomaze and AVr REMV CATARACT EXTRACAP,INSERT LENS STENT PLACEMENT 07/01/2003 LAD TONSILLECTOMY HX as child FAMILY HISTORY Problem Relation Age of Onset Heart Mother age 89 Diabetes Mother Coronary Artery Disease Mother Pancreatic Cancer Mother Heart Father age 75 Diabetes Father Stroke Father Breast Cancer Sister Breast Cancer Sister Arthritis Brother Diabetes Brother Heart disease Brother other (Bladder cancer) Brother Pancreatic Cancer Maternal Aunt SOCIAL HISTORY[1] Current Outpatient Medications Medication Sig Dispense Refill gabapentin (NEURONTIN) 300 mg capsule Take 300 mg by mouth. diphenhydrAMINE (BENADRYL) 50 mg capsule Take 1 capsule by mouth as directed for 1 dose. one (1) hour prior to exam. 1 capsule 0 atorvastatin (LIPITOR) 80 mg tablet Take 80 mg by mouth. bumetanide (BUMEX) 1 mg tablet Take 1 mg by mouth two times a day. montelukast (SINGULAIR) 10 mg tablet Take 10 mg by mouth once daily. metoprolol tartrate, short acting, (LOPRESSOR) 25 mg tablet Take 1/2 tablet by mouth twice daily. 180 tablet 3 levothyroxine (SYNTHROID) 50 mcg tablet levothyroxine 50 mcg tablet TAKE 1 TABLET BY MOUTH DAILY FOR HYPOTHYROIDISM apixaban (ELIQUIS) 5 mg tab(s) Eliquis 5 mg tablet Take 1 tablet twice a day by oral route for 90 days. calcium carbonate (CALTRATE) 600 mg calcium (1,500 mg) tab 600 mg. melatonin 10 mg tab 10 mg. spironolactone (ALDACTONE) 25 mg tablet Take 25 mg by mouth once daily. esomeprazole (NEXIUM) 40 mg capsule Take 40 mg by mouth as directed. Twice per week nitroglycerin sublingual (NITROQUICK) 0.4 mg SL tablet Dissolve 1 tablet under the tongue every 5 minutes as needed. 1 Bottle of 25 0 COQ10, UBIQUINOL, ORAL Take 1 tablet by mouth once daily. Chromium Picolinate 500 mcg cap Take 1 tablet by mouth once daily. MAGNESIUM ORAL Take 1 tablet by mouth once daily. 600mg No current facility-administered medications for this visit. ALLERGIES Allergen Reactions Biaxin [Clarithromy* Unknown Contrast Dye Shortness of Breath Nickel Unknown Nitrous Oxide Vomiting Synvisc [Hylan G-F * Swelling Thorazine [Chlorpro* Rash REVIEW OF SYSTEMS Negative unless specified in the HPI PHYSICAL EXAM Vitals: There were no vitals taken for this visit. General: Well developed, no acute distress Skin: No lesions; normal color, turgor HEENT: Normocephalic, atraumatic, extraocular movements intact. Pulmonary: Equal chest rise bilaterally, normal effort LABS Creatinine Date Value Ref Range Status 02/22/2025 1.24 (H) 0.58 - 0.96 mg/dL Final 01/26/2025 1 (more content not included)... [facility] 02-26-2025 History of Present illness Narrative Images from the original note were not included. [facility] [place] DEPARTMENT OF VASCULAR SURGERY OUTPATIENT VISIT TYPE CONSULTATION PRIMARY CARE PHYSICIAN: Jasmyne Casillas, DRESSING ROOM ATTENDANT, LAMBSKIN TRIMMER REFERRING PROVIDER: Katie Cook [address] [place] [address] [place] [address] Consult requested for an opinion regarding the evaluation and treatment of the above. My final impression and recommendations will be communicated back to the requesting physician by way of the shared medical record or letter via [place] mail. CHIEF COMPLAINT AAA HISTORY OF PRESENT ILLNESS: The patient is an 84-year-old female with a history of cancer, presenting for evaluation of a penetrating atherosclerotic ulcer (KARINE) identified on a recent CT scan. The patient underwent a PET scan in 2021 for cancer follow-up, which revealed a KARINE. A recent CT scan confirmed the presence of the KARINE, measuring 8 mm in depth and 13 mm in length, with no significant growth observed over the past three years. She denies any symptoms such as abdominal pain, back pain, or flank pain. She has a history of smoking but has since quit. She denies any history of hypertension or diabetes. Tobacco Use: .5 packs/day, for 7 years. Quit 06/16/1971. 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 Aortic valve stenosis mild Arthritis Asthma controlled no inhalers Coronary artery disease Hypercholesteremia Hypertension Polymyalgia rheumatica (HCC) PAST SURGICAL HISTORY Procedure Laterality Date APPENDECTOMY 07/01/1978 ARTHROSCOPY KNEE MEDIAL RELEASE 2002,2010 rt & Lt knee ARTHRP KNE CONDYLE&PLATU MEDIAL&LAT COMPARTMENTS Right 07/01/2013 right x2 BREAST LUMPECTOMY HX BUNIONECTOMY, LAPIDUS-TYPE 07/01/2010 rt toe CHOLECYSTECTOMY 07/01/2005 COLONOSCOPY & POLYPECTOMY 2004, 2005, 2009 x 3 CYSTO LASER TX URETERAL CALC 07/01/2009 stent placement CYSTO W/RETROGRADE x 6 D&C (INCOMPLETE AB), ANY TRIMESTER 07/01/1974 EXCISE EXCESS SKIN TISSUE,ABDOMEN 07/01/1994 Abdominalplasty KNEE SURGERY HX Left 07/27/2024 LITHOTRIPSY PROC UNILATERAL 07/01/1985 rt kidney PAST SURGICAL HISTORY OF 12/03/2019 CABG 1v, cryomaze and AVr REMV CATARACT EXTRACAP,INSERT LENS STENT PLACEMENT 07/01/2003 LAD TONSILLECTOMY HX as child FAMILY HISTORY Problem Relation Age of Onset Heart Mother age 89 Diabetes Mother Coronary Artery Disease Mother Pancreatic Cancer Mother Heart Father age 75 Diabetes Father Stroke Father Breast Cancer Sister Breast Cancer Sister Arthritis Brother Diabetes Brother Heart disease Brother other (Bladder cancer) Brother Pancreatic Cancer Maternal Aunt SOCIAL HISTORY[1] Current Outpatient Medications Medication Sig Dispense Refill gabapentin (NEURONTIN) 300 mg capsule Take 300 mg by mouth. diphenhydrAMINE (BENADRYL) 50 mg capsule Take 1 capsule by mouth as directed for 1 dose. one (1) hour prior to exam. 1 capsule 0 atorvastatin (LIPITOR) 80 mg tablet Take 80 mg by mouth. bumetanide (BUMEX) 1 mg tablet Take 1 mg by mouth two times a day. montelukast (SINGULAIR) 10 mg tablet Take 10 mg by mouth once daily. metoprolol tartrate, short acting, (LOPRESSOR) 25 mg tablet Take 1/2 tablet by mouth twice daily. 180 tablet 3 levothyroxine (SYNTHROID) 50 mcg tablet levothyroxine 50 mcg tablet TAKE 1 TABLET BY MOUTH DAILY FOR HYPOTHYROIDISM apixaban (ELIQUIS) 5 mg tab(s) Eliquis 5 mg tablet Take 1 tablet twice a day by oral route for 90 days. calcium carbonate (CALTRATE) 600 mg calcium (1,500 mg) tab 600 mg. melatonin 10 mg tab 10 mg. spironolactone (ALDACTONE) 25 mg tablet Take 25 mg by mouth once daily. esomeprazole (NEXIUM) 40 mg capsule Take 40 mg by mouth as directed. Twice per week nitroglycerin sublingual (NITROQUICK) 0.4 mg SL tablet Dissolve 1 tablet under the tongue every 5 minutes as needed. 1 Bottle of 25 0 COQ10, UBIQUINOL, ORAL Take 1 tablet by mouth once daily. Chromium Picolinate 500 mcg cap Take 1 tablet by mouth once daily. MAGNESIUM ORAL Take 1 tablet by mouth once daily. 600mg No current facility-administered medications for this visit. ALLERGIES Allergen Reactions Biaxin [Clarithromy* Unknown Contrast Dye Shortness of Breath Nickel Unknown Nitrous Oxide Vomiting Synvisc [Hylan G-F * Swelling Thorazine [Chlorpro* Rash REVIEW OF SYSTEMS Negative unless specified in the HPI PHYSICAL EXAM Vitals: There were no vitals taken for this visit. General: Well developed, no acute distress Skin: No lesions; normal color, turgor HEENT: Normocephalic, atraumatic, extraocular movements intact. Pulmonary: Equal chest rise bilaterally, normal effort LABS Creatinine Date Value Ref Range Status 02/22/2025 1.24 (H) 0.58 - 0.96 mg/dL Final 01/26/2025 1.26 (H) 0.58 - 0.96 mg/dL Final 12/14/2024 1.20 (H) 0.58 - 0.96 mg/dL Final 12/07/2024 1.22 (H) 0.58 - 0.96 mg/dL Final No results found for: CHOL , HDL , LDL , TG Glucose Date Value Ref Range Status 02/22/2025 113 (H) 74 - 99 mg/dL Final Comment: The [place] Diabetes Association (ADA) provides guidance for cutoff [...] Standards of Medical Care in Diabetes 2016, [place] [employer]. Diabetes Care. 2016.39(Suppl 1). Lab Results Component Value Date HBA1C 5.9 07/14/2015 ASSESSMENT Jemima Bradford is a 84 year old female with a <1cm KARINE of the infrarenal abdominal aorta. External notes: I have personally reviewed the following notes: Karlee Kelly MD Progress note Imaging studies: I have personally viewed the following images/data: Imaging: - (CT Scan): Penetrating atherosclerotic ulcer in the thoracic aorta measuring 8 mm in depth and 13 mm in length. - (2021) PET Scan: Small outpouching in the aorta consistent with a penetrating atherosclerotic ulcer, unchanged from prior imaging. PLAN/RECOMMENDATIONS I had a thorough discussion with the patient regarding their imaging findings and my clinical impression. 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 Reviewed prior PET scan from 2021, which showed the same lesion with no significant interval growth over 3 years. Lesion size is well below the threshold for surgical intervention; risk of rupture is estimated to be very low (approximately 1%). - Order CTA in 1 year to monitor for interval growth. - Educated patient on the nature of KARINE, distinction from aneurysm, and very low risk of rupture. - Advised on importance of blood pressure and diabetes control to prevent progression. - Instructed patient to seek immediate emergency care if experiencing severe abdominal, back, or flank pain, dizziness, or lightheadedness, and to request a CT scan with contrast of the aorta. - Discussed that, in the unlikely event of rupture, endovascular repair with a covered stent would be possible. - Provided contact information for any further questions or concerns. There were no barriers to communication or education today and the patient knows to call with any questions that may arise. Binu Upton MD Staff Surgeon, Vascular Surgery This note was partially generated using [email or web address] voice recognition system, and there may be some incorrect words, spellings, and punctuation that were not noted in checking the note before saving. Medical Decision Making: Medical Decision Making Level: 1 - N/A [1] Social History Tobacco Use Smoking status: Former Current packs/day: 0.00 Average packs/day: 0.5 packs/day for 8.0 years (4.0 ttl pk-yrs) Types: Cigarettes Start date: 06/16/1963 Quit date: 06/16/1971 Years since quittin.7 Passive exposure: Past Smokeless tobacco: Never Vaping Use Vaping status: Never Used Substance Use Topics Alcohol use: No Drug use: No documented in this encounter [facility] 02-25-2025 Telephone encounter Note Call placed to patient - she states she does not want to schedule for Iron at this time stating she is seeing Vascular on Saturday and is pretty sure she will be scheduled for surgery after seeing her scan results. She will call back when she is ready to schedule. Kerry Ward [facility] 02-25-2025 Miscellaneous Notes Call placed to patient - she states she does not want to schedule for Iron at this time stating she is seeing Vascular on Saturday and is pretty sure she will be scheduled for surgery after seeing her scan results. She will call back when she is ready to schedule. Kerry Ward Changed to Monoferric. Chelle Marin APRN.CNP Can we changed orders for patient to receive Monoferric instead? Medicare insurance. Kerry Ward Reviewed with Saulo. Pt will need additional IV Iron, as ordered. Repeat labs and see MARLYS in 8 weeks. Pt aware and agreeable to plan of care. Denies any questions, needs at this time. She completed her CTA today at [facility]. Toshia gave report to MM, and has requested the imaging. Pt Vascular surgeon appt Saturday02/26/25 at [facility]. Yas/Adina: Please call to schedule IV Iron, RTC with Labs 8 weeks Gia Clayton, RN Please review labs and advise. Last 3 dose Iron (300 mg/each) completed 01/06/25. Gia Clayton RN Images from the original note were not included. documented in this encounter [facility] 02-24-2025 Telephone encounter Note Changed to Monoferric. Chelle Marin APRN.LAMBSKIN TRIMMER [facility] 02-24-2025 Telephone encounter Note Can we changed orders for patient to receive Monoferric instead? Medicare insurance. Kerry Ward [facility] 02-24-2025 Telephone encounter Note CTA report scanned and images requested. [facility] 02-24-2025 Miscellaneous Notes CTA report scanned and images requested. Patient has been scheduled on Saturday, 02/26 at . Per patient, [facility] called her and have her scheduled for CTA on 02/24 @ 7:30 am. Made patient aware we can not do CTA's here as patient was inquiring why we can not do this CT here. Thanks! Left message w/ Christa Sharp to let them know to cancel consult. Kerry Ward Pt requesting Vascular surgery at [facility]. Pt is awaiting authorization through [facility] for CTA to be scheduled. She will call with date, once received PSS: Please call to schedule vascular surgery (prefers [facility] if possible) Gia Clayton, REBECCA Received a call from [facility] Vascular pharmacy benefits coordinator Javier she received this referral. She stated pt needs a CTA done first. I called and left message for Javier that our office faxed CTA order to [facility] scheduling on 02/17. Xenia Araujo Records faxed to Christa Sharp. PET images being pushed to [facility]. Toshia: Information ready for you. Xenia Araujo Faxed CTA to [facility] Pt aware of results, need for CTA and Vascular surgery referral. She prefers to go to [facility] for both, as travel to [place] is difficult. Called and spoke with radiology nurse, Irais. IV fluids orders need to be in comment section of CTA orders. 1 Liter NS over 1 hour to be given prior to scan. PSS: Please arrange for scans at [facility] Toshia/Obed: Please forward vascular surgery referral to [facility] MM: Please complete orders with above request for IV hydration Pt requests pre meds to Arianna Brownlee RN Please call and inform patient that PET shows concern for possible penetrating atherosclerotic ulcer of infrarenal abdominal aorta. She needs a CTA abd/pelvis and vascular surgery consult. Patient has ckd and ct dye allergy so will need fluids and premeds per protocol of the facility this is scheduled at. Katie Cook PA-C documented in this encounter [facility] 02-24-2025 Telephone encounter Note Reviewed with Saulo. Pt will need additional IV Iron, as ordered. Repeat labs and see MARLYS in 8 weeks. Pt aware and agreeable to plan of care. Denies any questions, needs at this time. She completed her CTA today at [facility]. Toshia gave report to MM, and has requested the imaging. Pt Vascular surgeon appt Saturday02/26/25 at [facility]. Yas/Adina: Please call to schedule IV Iron, RTC with Labs 8 weeks Gia Clayton RN [facility] 02-24-2025 Radiology Diagnostic study note [facility] [place] [address] [place] [address] CT Scan Report Signed Patient: Jemima Bradford MR#: [id number] : 1940 Acct:[id number] Age/Sex: 84 / F ADM Date: 5 Loc: CT Room: Type: [facility] Attending Dr: Katie Cook PA-C Copies to: KATIE COOK PA-C~ Ordering Provider: KATIE COOK PA-C Date of Service: 02/24/25 CT/CT angio abdomen pelvis: Z01.818 CTA abdomen and pelvis . CLINICAL DATA: Newly diagnosed abdominal aortic aneurysm.. TECHNIQUE: CT of the abdomen and pelvis was initially performed without contrast. Intravenous contrast-enhanced CT angiography of the abdomen and pelviswas then performed. Axial, sagittal, coronal and volume-rendered three-dimensional reconstructions were created and reviewed. This CT exam was performed using one or more of the following dose reduction techniques: Automated exposure control, adjustment of the mA and/or kV according to patient size, or use of iterative reconstruction technique. COMPARISON: None. FINDINGS: Lung Bases: Respiratory motion. Bibasilar scarring. Organs:Gallbladder has been removed. Liver pancreas spleen and adrenal glands all appear unremarkable. Small cyst with layering calcification versus calycealdiverticulum right kidney. Left kidney demonstrates subcentimeter low attenuating lesion too small for accurate characterization. The abdominal aorta demonstrates moderate calcification with ectasia of the infrarenal abdominal aorta measuring 2.6 cm. No dissection or rupture is seen. No critical stenosis or occlusion is seen involving the major branch vessels of the abdominal aorta. There is mild diffuse sclerotic calcification of the branch vessels.[ GI: Small hiatal hernia. Distal stomach is grossly unremarkable. Small bowel appears nondilated. No acute colonic abnormality.[ Pelvis:[Urinary bladder is grossly unremarkable. Uterus is atrophic.] Peritoneum/Retroperitoneum:No free air or free fluid or lymphadenopathy.[ Abd wall/Bones:No acute findings. Osseous structures demonstrate degenerative change.[ CT/CT angio abdomen pelvis IMPRESSION: Ectasia of the infrarenal abdominal aorta measuring 2.6 cm. No dissection or rupture is seen. No acute intra-abdominal pathology. Impression dictated by: Tuan Stubbs Jr., BekaOYasmin 02/24/2025 10:23 AM Dictation Location: [place] [address] Transcribed By: [facility] 02/24/25 1023 Dictated By: Tuan Stubbs Jr DO 02/24/25 1019 Signed By: 02/24/25 1023 [facility] 02-24-2025 Telephone encounter Note Please review labs and advise. Last 3 dose Iron (300 mg/each) completed 01/06/25. Gia Clayton RN [facility] 02-22-2025 Telephone encounter Note Images from the original note were not included. [facility] 02-22-2025 Instructions Karlee Kelly MD - 02/22/2025 3:33 PM EDT Labs today - triage please call results CT CAP in 6 months with labs RTC 1 week after. We discussed your lung cancer: - Your recent PET scan shows no evidence of recurrence in the left lung, no active regional lymph nodes, and no metabolically active distant metastasis. This is excellent news, and there is no concern for disease recurrence at this time. We discussed your abdominal aortic aneurysm: - The PET scan noted a focal outpouching in the left infrarenal abdominal aorta, concerning for a possible penetrating atherosclerotic ulcer. A dedicated CT angiogram (CTA) has been recommended for further evaluation. - You are scheduled to see Dr. Corbett, a vascular surgeon, on March 29, to address this issue. Please follow up with him as planned. We discussed your anemia: - Your hemoglobin level was previously 9.8 on January 26, but you mentioned it had dropped to 8.0. We will draw labs today to reassess your anemia. - Our triage nurse will call you with the results of your labs once they are available. We discussed your back pain: - You reported back pain and are unsure if it is related to your kidneys. A urine test will be performed today to check for any signs of infection or kidney issues. - If you experience worsening pain, fever, or other concerning symptoms, please let us know immediately. We discussed your history of breast cancer: - You were treated for breast cancer approximately 20 years ago on the right side and completed nearly five years of endocrine therapy (Arimidex/Anastrozole), which was discontinued due to joint pain. Plan: - Repeat labs and imaging in six months to monitor your health. - Follow up with Dr. Corbett on March 29 regarding your abdominal aortic aneurysm. - Await a call from our triage nurse with your lab and urine test results. - If you have any new or worsening symptoms, please contact our office promptly. documented in this encounter [facility] 02-22-2025 History of Present illness Narrative Images from the original note were not included. NAME: Jemima Bradford CLINIC NO.: [id number] DATE OF SERVICE: February 22, 2025 (Messi) Some elements in this clinic note that are critical to medical decision making have been carefully reviewed and included from a prior clinic note dated: January 26, 2025 (Joyce). Referring Provider: [facility] Additional Clinicians involved in Jemima Bradford's care: Jasmyne Casillas CNP ([facility]), Dr. Keene, Dr. Ferrari ([facility] Cardiology, [place]), Dr. Pizarro, Dr. Arguelles, Dr. Shaniqua Ellsworth (Pulmonary, [place]), Dr. Mitzi Amaral, Dr. Tovar ([facility] orthopedic surgery) DIAGNOSIS: CASE SUMMARY / ASSESSMENT: 84 year old woman with: 1. 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 Status post lingular sparing left upper lobectomy and mediastinal lymph node dissection 06/13/2022. Pathology revealed the primary tumor was 2 cm, 0 of 15 lymph nodes involved, margins negative. The primary tumor was positive for ALK mutation, plus elevated PD-L1 expression. Postop it was elected not to treat with adjuvant chemotherapy or adjuvant radiation therapy, and routine follow-up recommended. Since initial diagnosis and surgery the patient has had no documented recurrence. Restaging chest CT 05/19/2024 revealed small left supraclavicular lymph nodes. Although subcentimeter in size, these were slightly increased in size when compared to 11/19/2023. The possibility of this representing metastatic adenopathy cannot be excluded given the change in size. Repeat chest CT 08/10/2024 stable. At this time, we plan to restage again at 6 months (January 2025) with a PET scan at her request. This is scheduled and she will need a transition of care visit following the PET scan. 2. 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 The patient presented with right breast pain and was found to have an abnormality in the retroareolar area of the right breast. A right breast breast biopsy obtained 05/25/2020 revealed a low-grade ER/HI positive DCIS. The patient also underwent a left breast biopsy on 06/06/2020 which was benign. Genetic testing revealed no evidence of deleterious mutations. The patient subsequently underwent a right breast lumpectomy on 06/21/2020, and pathology confirmed a 1.3 cm low-grade DCIS with negative margins. Adjuvant hormonal therapy with anastrozole started July 2020. The patient received adjuvant radiation therapy to the right breast 08/08/2020 through 08/19/2020 (3000 cGy in 5 fractions). Due to adverse effects (joint pain, restless legs) the patient discontinued anastrozole August 2024. Currently no evidence of disease. At this time will continue routine observation. Next surveillance mammogram due March 2025. 3. Heart disease - ICD9: 429.9, ICD10: I51.9 History of coronary artery disease and aortic valve stenosis. Status post CABG, aortic valve replacement and cardiac ablation November 2019. History of paroxysmal atrial fibrillation - resolved after her initial cardiac procedure in November 2019. Apparently the patient developed recurrent atrial fibrillation in August 2020 and underwent an additional ablation 01/04/2021. Currently on Eliquis and aspirin. Continue management per PCP/cardiology. 4. 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 Currently on Eliquis and aspirin. Continue management per PCP/neurology. 5. PMR Diagnosed approximately 2018. Currently not on treatment. Continue management per rheumatology. 6. Age-related osteoporosis - ICD9: 733.01, ICD10: M81.0 The patient has a long history of osteopenia. Most recent bone density DEXA May 2023 revealed bone loss in the left hip consistent with osteoporosis. Reviewed the need for Calcium and Vitamin D supplements and weight bearing exercise as tolerated. The patient will discuss with her PCP options for additional therapy including antiresorptive agents. 7. Normocytic anemia She has a worsening anemia, initially discovered in May 2024. Iron studies at that time were borderline low. She has been taking oral iron daily since that time, with her hemoglobin dropping from 11.3 in May 2024 to 8.4. She had a negative EGD and colonoscopy without evidence for a bleeding. She received IV Venofer 300 mg x 3 doses December 22- January 06, 2025. Her hemoglobin has improved slightly. Will see her back in 6-8 weeks with repeat labs. If no significant improvement, will consider EPO injections versus bone marrow biopsy to rule out MDS. She will return in about 8 weeks to repeat labs. SUMMARIZED PLAN OF CARE: Labs today - triage please call results CT CAP in 6 months with labs RTC 1 week after. AI Assisted A/P: 1. Iron deficiency anemia due to chronic blood loss (D50.0) 2. Iron deficiency anemia, unspecified iron deficiency anemia type (D50.9) Hemoglobin decreased from 9.8 on January 26 to 8.x; prior iron supplementation administered. - Order repeat labs today to reassess anemia status. - Triage nurse to call patient with lab results. 3. Malignant neoplasm of lung, unspecified laterality, unspecified part of lung (HCC) (C34.90) 4. Malignant neoplasm of upper lobe of left lung (HCC) (C34.12) 5. Primary malignant neoplasm of left lung (HCC) (C34.92) 6. Personal history of malignant neoplasm of lung (Z85.118) Recent PET scan shows no evidence of recurrence at the primary site, no active regional lymph nodes, and no metabolically active distant metastasis. - Repeat scan and labs in 6 months. 7. History of ductal carcinoma in situ (DCIS) of breast (Z86.000) 8. Ductal carcinoma in situ (DCIS) of right breast (D05.11) 9. Malignant neoplasm of right breast in female, estrogen receptor positive, unspecified site of breast (HCC) (C50.911) 10. Personal history of malignant neoplasm of breast (Z85.3) Patient completed nearly 5 years of endocrine therapy (Arimidex) for right-sided DCIS, discontinued due to joint pain. - No additional interventions at this time. 11. Infrarenal abdominal aortic aneurysm (AAA) without rupture (I71.43) 12. Abdominal aortic aneurysm (AAA) without rupture, unspecified part (I71.40) PET scan flagged a focal outpouching in the left infrarenal abdominal aorta, concerning for possible penetrating atherosclerotic ulcer; dedicated CTA recommended for better characterization. - Patient to follow up with Dr. Corbett (vascular surgeon) at [place] on the . 13. Stage 3a chronic kidney disease (HCC) (N18.31) 14. Flank pain (R10.9) Patient reports back pain, uncertain if musculoskeletal or renal in origin. - Order urinalysis to evaluate for possible pyelonephritis. 15. [facility] (current) use of anticoagulants (Z79.01) Patient is on long-term anticoagulation; advised to consult with vascular surgeon regarding perioperative management. - Patient to discuss anticoagulation management with Dr. Corbett during upcoming vascular surgery consultation. CASE HISTORY: Reverse Chronological Order 08/10/2024 CT chest IMPRESSION: 1. No interval change since 05/19/24. 2. Subcentimeter nodular opacities and groundglass opacities, stable. 2. Subcentimeter thoracic lymph nodes, stable. 05/19/2024 CT chest IMPRESSION: 1. Small left supraclavicular lymph nodes. Although subcentimeter in size, these are slightly increased in size when compared to 11/19/2023. The possibility of this representing metastatic adenopathy cannot be excluded given the change in size. Would advise further evaluation with either a PET/CT at this time or a short-term follow-up chest CT with contrast in 3 months. 2. Stable subcentimeter pulmonary nodules. 04/28/2024 Bilateral diagnostic mammogram ([facility]) Benign, no evidence of malignancy. Normal interval follow-up at 12 months. 11/19/2023 CT chest IMPRESSION: 1. Surgical changes compatible with left upper lobectomy with stable appearance when compared to the prior exam. No significant thoracic adenopathy. Stable subcentimeter solid nodule in groundglass nodule in the right upper lobe of the lungs. Would advise continued imaging surveillance. 06/04/2023 Bone density DEXA 1. Bone mineral density by WHO criteria: Osteoporosis. Fracture risk high. WHO 10-year fracture risk assessment described above. 2. When compared with the most recent study 05/31/2021, there has been a 7.3% increase in bone mineral density of the lumbar spine, and a 3.1% decrease in bone mineral density at the left hip. 05/21/2023 CT chest IMPRESSION: 1. Postoperative changes involving left hemithorax, stable in appearance from prior examination of 01/10/2023. 2. Subcentimeter right upper lobe nodules, unchanged. 3. No substantial intrathoracic adenopathy is appreciated. 3. Newly apparent subacute/healing fractures involving the right 5th through 7th ribs are appreciated. 04/30/2023 Bilateral diagnostic mammogram ([facility]) Benign, no evidence of malignancy. Normal interval follow-up at 12 months. 01/10/2023 CT chest IMPRESSION: 1. Postoperative changes involving left hemithorax, as above. Improving loculated left apical pleural effusion and adjacent left perihilar atelectasis, as above. Patchy left upper lung zone groundglass opacities are identified on today's examination. 2. Subcentimeter right upper lobe nodules, larger measuring 7 mm, stable. 3. No substantial intrathoracic adenopathy is appreciated. 07/12/2022 CT chest IMPRESSION: 1. Since 06/19/2022, removal of left anterior pleural catheter and left basilar chest tubes. Increase in size of anterior pleural effusion within the lobectomy cavity and left basilar small pleural effusion. Resolution of previously seen pneumothorax component. 2. Stable regions of atelectasis/scarring involving the left lung and anterior right middle lobe. No new airspace consolidation. 3. Unchanged indeterminate 0.7 cm right upper lobe pulmonary nodule. Continued attention on subsequent studies is suggested. 4. No progressive lymphadenopathy. 05/02/2022 Brain MRI ([facility]) Brain MRI within limits of normal. No signs of intracranial mass or abnormal enhancement. 04/11/2022 PET scan ([facility]) Nodular opacity in the left upper lobe demonstrates moderate uptake. No signs of distant metastases. 04/04/2022 High-resolution chest CT ([facility]) Previous linear scarlike opacity left upper lobe measuring 11 x 8 mm in December 2019 is now irregularly lobulated and measures 1.5 x 1.3 cm and is suspicious. PET scan or biopsy recommended. 06/08/2021 Diagnostic right mammogram and right breast ultrasound ([facility]) 2.2 cm complex fluid collection in the lumpectomy bed at the 5 o'clock position. Could be a postoperative seroma, old hematoma, or abscess. No finding to suggest malignancy in the right breast. 05/31/2021 Bone density DEXA ([facility]) Increasing osteopenia in the hips. Significant loss of bone in the lumbar spine, while remaining within normal limits 06/13/2022 Left upper lobectomy and regional lymph node dissection A. Lymph node, level 9, excision: - Negative for tumor (0/1). B. Lymph node, 12 central, excision: - Negative for tumor (0/1). C. Lymph node, 11 anterior, excision: - Negative for tumor (0/1). D. Lymph node, 11 posterior, excision: - Negative for tumor (0/1). E. Lymph node, another 11 posterior, excision:- Negative for tumor (0/1). F. Lymph node, 10, excision: - Negative for tumor (0/1). G. Lymph node, 5, excision:- Negative for tumor (0/1). H. Lymph node, 7, excision: - Negative for tumor (0/1). I. Lung, left upper lobe, lingula-sparing left upper lobectomy: - Adenocarcinoma (2 cm), micropapillary predominant (70%), with additional papillary (20%), and acinar (10%) patterns (See synoptic template). - Seven hilar/peribronchial lymph nodes, negative for tumor (0/7). - Margins negative. ALK (D5F3) IMMUNOHISTOCHEMISTRY ASSAY Results: Positive Immunohistochemistry for PD-L1 expression Tumor Cells Positive: 70% ROS1 Rearrangement 0% RET Rearrangement 0% BRAF - No variant detected [Reference Sequence: ([id number])]. EGFR - No variant detected [Reference Sequence: ([id number])]. HER2 (ERBB2) - No variant detected [Reference Sequence: ([id number])]. KRAS - No variant detected [Reference Sequence: ([id number])]. MET - No variant detected [Reference Sequence: ([id number])]. 04/25/2022 CT directed biopsy left upper lung mass ([facility]) Adenocarcinoma consistent with lung primary 06/21/2020 Right breast lumpectomy ([facility]) Ductal carcinoma in situ, low nuclear grade, cribriform and solid types, 1.3 cm in greatest dimension. Posterior margin is within 1 mm from DCIS. ER 99%, HI 99% 06/06/2020 Left breast biopsy ([facility]) Columnar cell change/hyperplasia. Usual ductal hyperplasia. 05/25/2020 Right breast biopsy ([facility]) Ductal carcinoma in situ, nuclear grade 1. ER positive (99%, HI positive (99%) HPI: Updated Visit, February 22, 2025: Patient is a female with a history of left lung cancer and right breast cancer, currently managed with surveillance and iron supplementation for anemia. She was diagnosed with right breast cancer approximately 20 years ago and completed nearly five years of adjuvant endocrine therapy with anastrozole, which was discontinued in August 2024 due to joint pain. She was later diagnosed with left lung cancer. Recent PET scan showed no evidence of recurrence in the left lung, no active regional lymph nodes, and no metabolically active distant metastasis. The PET scan also revealed a focal outpouching in the left infrarenal abdominal aorta, concerning for a possible penetrating atherosclerotic ulcer. She is scheduled to see a vascular surgeon, Dr. Corbett, on the 29 of March for further evaluation. She has been receiving iron supplementation for anemia. Her hemoglobin was 9.8 g/dL on January 26, but she reports it decreased to 8 g/dL recently. She also reports back pain and is uncertain if it is musculoskeletal or related to a potential kidney issue. She has a history of frequent UTIs and is concerned about the possibility of pyelonephritis. (Today) PET Scan: No evidence of recurrence in the left lung. No metabolically active regional lymph nodes. No metabolically active distant metastasis. Focal outpouching in the left infrarenal abdominal aorta concerning for a penetrating atherosclerotic ulcer. CTA recommended. (01/26) CBC: Hemoglobin: 9.8 g/dL Updated Visit, January 26, 2025: This is an 84 year old female with a history of DCIS and lung cancer, seen for scheduled follow-up. Patient is an 84-year-old female with a history of DCIS, lung cancer, and mild renal insufficiency. Recently found to have iron deficiency anemia and she received Venofer 300 mg x 3 doses December 22-January 06, 2025. She feels better after receiving the iron. She does report that every 10-14 days she feels like her head swims and she has to hold on to something. She describes it as feeling like her head is going around and it lasts about 45 seconds. It has happened 5-6 times over the last few months. No headaches, double vision. REVIEW OF SYSTEMS Per HPI and otherwise negative by full review of organ systems. Musculoskeletal: (+) back pain ECOG PERFORMANCE STATUS: 1 PHYSICAL EXAMINATION: Vitals: BP 132/72 Pulse 74 Temp (Src) 97.7 (Temporal) Resp 16 Ht 5' 5 (1.65m) Wt 167 lb 6.4 oz (75.9kg) SpO2 100% BMI 27.86 kg/(m^2). Body surface area is 1.87 meters squared. Exam limited to gross visualization where appropriate. Gen.: This is an age-appropriate patient in no acute distress. Head: Appears atraumatic with no visible lesions. Eyes: Pupils equally round and reactive to light, extraocular muscles are intact. Neck: Supple. Respiratory: Appears to be respiring comfortably. Neurologic: Nonfocal to gross visualization. Alert and oriented 3. Psychiatric: No evidence of inappropriate anxiety or depression. Skin: Visible areas of skin without rash, lesions, wounds or petechiae. ALLERGIES: ALLERGIES Allergen Reactions Biaxin [Clarithromy* Unknown Contrast Dye Shortness of Breath Nickel Unknown Nitrous Oxide Vomiting Synvisc [Hylan G-F * Swelling Thorazine [Chlorpro* Rash MEDICATIONS: gabapentin (NEURONTIN) 300 mg capsule Take 300 mg by mouth. diphenhydrAMINE (BENADRYL) 50 mg capsule Take 1 capsule by mouth as directed for 1 dose. one (1) hour prior to exam. atorvastatin (LIPITOR) 80 mg tablet Take 80 mg by mouth. bumetanide (BUMEX) 1 mg tablet Take 1 mg by mouth two times a day. montelukast (SINGULAIR) 10 mg tablet Take 10 mg by mouth once daily. metoprolol tartrate, short acting, (LOPRESSOR) 25 mg tablet Take 1/2 tablet by mouth twice daily. levothyroxine (SYNTHROID) 50 mcg tablet levothyroxine 50 mcg tablet TAKE 1 TABLET BY MOUTH DAILY FOR HYPOTHYROIDISM apixaban (ELIQUIS) 5 mg tab(s) Eliquis 5 mg tablet Take 1 tablet twice a day by oral route for 90 days. calcium carbonate (CALTRATE) 600 mg calcium (1,500 mg) tab 600 mg. melatonin 10 mg tab 10 mg. spironolactone (ALDACTONE) 25 mg tablet Take 25 mg by mouth once daily. esomeprazole (NEXIUM) 40 mg capsule Take 40 mg by mouth as directed. Twice per week nitroglycerin sublingual (NITROQUICK) 0.4 mg SL tablet Dissolve 1 tablet under the tongue every 5 minutes as needed. COQ10, UBIQUINOL, ORAL Take 1 tablet by mouth once daily. Chromium Picolinate 500 mcg cap Take 1 tablet by mouth once daily. MAGNESIUM ORAL Take 1 tablet by mouth once daily. 600mg LABORATORY VALUES: WBC (k/uL) Date Value 02/22/2025 6.72 RBC (m/uL) Date Value 02/22/2025 3.26 (L) Hemoglobin (g/dL) Date Value 02/22/2025 8.9 (L) Hematocrit (%) Date Value 02/22/2025 28.3 (L) MCV (fL) Date Value 02/22/2025 86.8 MCH (pg) Date Value 02/22/2025 27.3 MCHC (g/dL) Date Value 02/22/2025 31.4 RDW-CV (%) Date Value 02/22/2025 17.5 (H) Platelet Count (k/uL) Date Value 02/22/2025 208 MPV (fL) Date Value 02/22/2025 9.4 Glucose (mg/dL) Date Value 01/26/2025 129 (H) BUN (mg/dL) Date Value 01/26/2025 33 (H) Creatinine (mg/dL) Date Value 01/26/2025 1.26 (H) Sodium (mmol/L) Date Value 01/26/2025 141 Potassium (mmol/L) Date Value 01/26/2025 4.1 Chloride (mmol/L) Date Value 01/26/2025 104 CO2 (mmol/L) Date Value 01/26/2025 27 Protein, Total (g/dL) Date Value 01/26/2025 6.6 Albumin (g/dL) Date Value 01/26/2025 4.2 Calcium, Total (mg/dL) Date Value 01/26/2025 9.5 Alkaline Phosphatase (U/L) Date Value 01/26/2025 114 Bilirubin, Total (mg/dL) Date Value 01/26/2025 0.4 AST (U/L) Date Value 01/26/2025 21 ALT (U/L) Date Value 01/26/2025 13 DIAGNOSIS: (D50.0) Iron deficiency anemia due to chronic blood loss (primary encounter diagnosis) Plan: COMPLETE BLOOD COUNT AND DIFFERENTIAL, COMPREHENSIVE METABOLIC PANEL, IRON AND TIBC, FERRITIN, VITAMIN B12, FOLATE, SERUM, RETICULOCYTE COUNT, ERYTHROPOIETIN/EPO, HAPTOGLOBIN (C34.90) Malignant neoplasm of lung, unspecified laterality, unspecified part of lung (HCC) Plan: COMPLETE BLOOD COUNT AND DIFFERENTIAL, COMPREHENSIVE METABOLIC PANEL, IRON AND TIBC, FERRITIN, VITAMIN B12, FOLATE, SERUM, RETICULOCYTE COUNT, ERYTHROPOIETIN/EPO, HAPTOGLOBIN (Z86.000) History of ductal carcinoma in situ (DCIS) of breast Plan: COMPLETE BLOOD COUNT AND DIFFERENTIAL, COMPREHENSIVE METABOLIC PANEL, IRON AND TIBC, FERRITIN, VITAMIN B12, FOLATE, SERUM, RETICULOCYTE COUNT, ERYTHROPOIETIN/EPO, HAPTOGLOBIN (I71.43) Infrarenal abdominal aortic aneurysm (AAA) without rupture Plan: COMPLETE BLOOD COUNT AND DIFFERENTIAL, COMPREHENSIVE METABOLIC PANEL, IRON AND TIBC, FERRITIN, VITAMIN B12, FOLATE, SERUM, RETICULOCYTE COUNT, ERYTHROPOIETIN/EPO, HAPTOGLOBIN (N18.31) Stage 3a chronic kidney disease (HCC) Plan: COMPLETE BLOOD COUNT AND DIFFERENTIAL, COMPREHENSIVE METABOLIC PANEL, IRON AND TIBC, FERRITIN, VITAMIN B12, FOLATE, SERUM, RETICULOCYTE COUNT, ERYTHROPOIETIN/EPO, HAPTOGLOBIN (D05.11) Ductal carcinoma in situ (DCIS) of right breast Plan: COMPLETE BLOOD COUNT AND DIFFERENTIAL, COMPREHENSIVE METABOLIC PANEL, IRON AND TIBC, FERRITIN, VITAMIN B12, FOLATE, SERUM, RETICULOCYTE COUNT, ERYTHROPOIETIN/EPO, HAPTOGLOBIN (R10.9) Flank pain Plan: URINALYSIS (WITH MICROSCOPIC) WITH CULTURE IF INDICATED (C34.12) Malignant neoplasm of upper lobe of left lung (HCC) (I71.40) Abdominal aortic aneurysm (AAA) without rupture, unspecified part (D50.9) Iron deficiency anemia, unspecified iron deficiency anemia type (Z79.01) 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 (C34.92) Primary malignant neoplasm of left lung (HCC) (Z85.118) Personal history of malignant neoplasm of lung (Z85.3) Personal history of malignant neoplasm of breast (C50.911, Z17.0) Malignant neoplasm of right breast in female, estrogen receptor positive, unspecified site of breast (HCC) PAST MEDICAL HISTORY Diagnosis Date Adenocarcinoma of lung, left (HCC) s/p TIMUR trisegmentectomy 05/2022 Aortic valve stenosis mild Arthritis Asthma controlled no inhalers Coronary artery disease Hypercholesteremia Hypertension Polymyalgia rheumatica (HCC) PAST SURGICAL HISTORY Procedure Laterality Date APPENDECTOMY 07/01/1978 ARTHROSCOPY KNEE MEDIAL RELEASE 2002,2010 rt & Lt knee ARTHRP KNE CONDYLE&PLATU MEDIAL&LAT COMPARTMENTS Right 07/01/2013 right x2 BREAST LUMPECTOMY HX BUNIONECTOMY, LAPIDUS-TYPE 07/01/2010 rt toe CHOLECYSTECTOMY 07/01/2005 COLONOSCOPY & POLYPECTOMY 2004, 2005, 2009 x 3 CYSTO LASER TX URETERAL CALC 07/01/2009 stent placement CYSTO W/RETROGRADE x 6 D&C (INCOMPLETE AB), ANY TRIMESTER 07/01/1974 EXCISE EXCESS SKIN TISSUE,ABDOMEN 07/01/1994 Abdominalplasty KNEE SURGERY HX Left 07/27/2024 LITHOTRIPSY PROC UNILATERAL 07/01/1985 rt kidney PAST SURGICAL HISTORY OF 12/03/2019 CABG 1v, cryomaze and AVr REMV CATARACT EXTRACAP,INSERT LENS STENT PLACEMENT 07/01/2003 LAD TONSILLECTOMY HX as child SOCIAL HISTORY[1] FAMILY HISTORY Problem Relation Age of Onset Heart Mother age 89 Diabetes Mother Coronary Artery Disease Mother Pancreatic Cancer Mother Heart Father age 75 Diabetes Father Stroke Father Breast Cancer Sister Breast Cancer Sister Arthritis Brother Diabetes Brother Heart disease Brother other (Bladder cancer) Brother Pancreatic Cancer Maternal Aunt I spent a total of 30 minutes on the date of the service which included preparing to see the patient, [id number] patient care, completing clinical documentation, obtaining and/or reviewing separately obtained history, performing a medically appropriate examination, counseling and educating the patient/family/caregiver, ordering medications, tests, or procedures, independently interpreting results (not separately reported), communicating results to the patient/family/caregiver, and care coordination (not separately reported). Karlee Kelly MD, CPE Hematology and Oncology Services Provided at: [place], [place] CC: Jasmyne Casillas, DRESSING ROOM ATTENDANT, [employer] [address] [facility] [id number] [1] Social History Tobacco Use Smoking status: Former Current packs/day: 0.00 Average packs/day: 0.5 packs/day for 8.0 years (4.0 ttl pk-yrs) Types: Cigarettes Start date: 06/16/1963 Quit date: 06/16/1971 Years since quittin.7 Passive exposure: Past Smokeless tobacco: Never Vaping Use Vaping status: Never Used Substance Use Topics Alcohol use: No Drug use: No documented in this encounter [facility] 02-22-2025 Note HNO ID: [id number] Author: KARLEE KELLY MD Service: ? Author Type: Physician Type: Progress Notes Filed: 02/22/2025 20:55 Note Text: NAME: Jemima Bradford [facility] NO.: [id number] DATE OF SERVICE: February 22, 2025 (Messi) Some elements in this clinic note that are critical to medical decision making have been carefully reviewed and included from a prior clinic note dated: January 26, 2025 (Joyce). Referring Provider: BR Additional Clinicians involved in Jemima Bradford's care: Jasmyne Casillas CNP ([facility]), Dr. Keene, Dr. Ferrari ([facility] Cardiology, [place]), Dr. Pizarro, Dr. Arguelles, Dr. Shaniqua Ellsworth (Pulmonary, [place]), Dr. Mitzi Amaral, Dr. Tovar ([facility] orthopedic surgery) DIAGNOSIS: CASE SUMMARY / ASSESSMENT: 84 year old woman with: 1. 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 Status post lingular sparing left upper lobectomy and mediastinal lymph node dissection 06/13/2022. Pathology revealed the primary tumor was 2 cm, 0 of 15 lymph nodes involved, margins negative. The primary tumor was positive for ALK mutation, plus elevated PD-L1 expression. Postop it was elected not to treat with adjuvant chemotherapy or adjuvant radiation therapy, and routine follow-up recommended. Since initial diagnosis and surgery the patient has had no documented recurrence. Restaging chest CT 05/19/2024 revealed small left supraclavicular lymph nodes. Although subcentimeter in size, these were slightly increased in size when compared to 11/19/2023. The possibility of this representing metastatic adenopathy cannot be excluded given the change in size. Repeat chest CT 08/10/2024 stable. At this time, we plan to restage again at 6 months (January 2025) with a PET scan at her request. This is scheduled and she will need a transition of care visit following the PET scan. 2. 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 The patient presented with right breast pain and was found to have an abnormality in the retroareolar area of the right breast. A right breast breast biopsy obtained 05/25/2020 revealed a low-grade ER/HI positive DCIS. The patient also underwent a left breast biopsy on 06/06/2020 which was benign. Genetic testing revealed no evidence of deleterious mutations. The patient subsequently underwent a right breast lumpectomy on 06/21/2020, and pathology confirmed a 1.3 cm low-grade DCIS with negative margins. Adjuvant hormonal therapy with anastrozole started July 2020. The patient received adjuvant radiation therapy to the right breast 08/08/2020 through 08/19/2020 (3000 cGy in 5 fractions). Due to adverse effects (joint pain, restless legs) the patient discontinued anastrozole August 2024. Currently no evidence of disease. At this time will continue routine observation. Next surveillance mammogram due March 2025. 3. Heart disease - ICD9: 429.9, ICD10: I51.9 History of coronary artery disease and aortic valve stenosis. Status post CABG, aortic valve replacement and cardiac ablation November 2019. History of paroxysmal atrial fibrillation - resolved after her initial cardiac procedure in November 2019. Apparently the patient developed recurrent atrial fibrillation in August 2020 and underwent an additional ablation 01/04/2021. Currently on Eliquis and aspirin. Continue management per PCP/cardiology. 4. 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 Currently on Eliquis and aspirin. Continue management per PCP/neurology. 5. PMR Diagnosed approximately 2018. Currently not on treatment. Continue management per rheumatology. 6. Age-related osteoporosis - ICD9: 733.01, ICD10: M81.0 The patient has a long history of osteopenia. Most recent bone density DEXA May 2023 revealed bone loss in the left hip consistent with osteoporosis. Reviewed the need for Calcium and Vitamin D supplements and weight bearing exercise as tolerated. The patient will discuss with her PCP options for additional therapy including antiresorptive agents. 7. Normocytic anemia She has a worsening anemia, initially discovered in May 2024. Iron studies at that time were borderline low. She has been taking oral iron daily since that time, with her hemoglobin dropping from 11.3 in May 2024 to 8.4. She had a negative EGD and colonoscopy without evidence for a bleeding. She received IV Venofer 300 mg x 3 doses December 22- January 06, 2025. Her hemoglobin has improved slightly. Will see her back in 6-8 weeks with repeat labs. If no significant improvement, will consider EPO injections versus bone marrow biopsy (more content not included)... [facility] 02-22-2025 Telephone encounter Note Patient has been scheduled on Saturday, 02/26 at . Per patient, [facility] called her and have her scheduled for CTA on 02/24 @ 7:30 am. Made patient aware we can not do CTA's here as patient was inquiring why we can not do this CT here. Thanks! Left message w/ [facility] to let them know to cancel consult. Kerry Ward [facility] 02-19-2025 Telephone encounter Note Pt requesting Vascular surgery at [place]. Pt is awaiting authorization through [facility] for CTA to be scheduled. She will call with date, once received PSS: Please call to schedule vascular surgery (prefers [facility] if possible) Gia Clayton, RN [facility] 02-18-2025 Telephone encounter Note Received a call from [facility] pharmacy benefits coordinator Javier she received this referral. She stated pt needs a CTA done first. I called and left message for Javier that our office faxed CTA order to [facility] scheduling on 02/17. Xenia Bright Pss [facility] 02-18-2025 Telephone encounter Note Records faxed to [facility]. PET images being pushed to [facility]. [facility] 02-18-2025 History of Present illness Narrative Images from the original note were not included. Jemima Bradford 1940 Jemima Bradford is a 84 y.o. female presents with chief complaint of 4yr. 8mos. Rt. lumpectomy HPI: HPI Jemima is 5 yrs 8 mths post Rt lumpectomy, her mamm's are due in March. She had a PET on 02/15/25 and reports finding a hard area in the right breast surgical scar about 1 month ago. It has been stable since. SUBJECTIVE: MEDICATIONS: ALLERGIES Current Outpatient Medications Medication Instructions acetaminophen (Tylenol) 500 MG tablet Every 6 hours anastrozole (Arimidex) 1 MG chemo tablet 1 tablet, Daily aspirin 81 MG chewable tablet Chew 1 tablet every day by oral route. bumetanide (BUMEX) 1 mg, Every morning Calcium Carbonate-Vitamin D 600-5 MG-MCG tablet 1 tablet, Daily cholecalciferol (Vitamin D-3) 50 MCG (1999) tablet Take 1.5 tablets every day by oral route. Chromium Picolinate 500 MCG capsule 1 tablet, Daily RT coenzyme Q-10 10 MG capsule Every 24 hours Eliquis 5 MG tablet 1 tablet, 2 times daily esomeprazole (NexIUM) [address] capsule TAKE 1 CAPSULE BY MOUTH ONCE DAILY FOR 90 DAYS levothyroxine (Synthroid, Levoxyl) 50 MCG tablet 1 tablet, Daily Linzess 290 MCG capsule TAKE 1 CAPSULE BY MOUTH ONCE DAILY AT LEAST 30 MINUTES BEFORE THE FIRST MEAL OF THE DAY ON AN EMPTY STOMACH magnesium oxide (Mag-Ox) 400 MG tablet 1 tablet, Daily Melatonin 10 MG capsule Take 1 capsule every day by oral route. metoprolol tartrate (Lopressor) 25 MG tablet 1 tablet, 2 times daily montelukast (SINGULAIR) 10 mg, Daily RT nitroglycerin (Nitrostat) 0.4 MG SL tablet DISSOLVE ONE TABLET UNDER THE TONGUE EVERY 5 MINUTES NEEDED FOR CHEST PAIN. DO NOT EXCEED A TOTAL OF 3 DOSES IN 15 MINUTES CALL 911. rosuvastatin (Crestor) 40 MG tablet 1 tablet, Daily spironolactone (Aldactone) 25 MG tablet 1 tablet, Daily Allergies Allergen Reactions Iodides Anaphylaxis and Shortness of breath Iodinated Contrast Media Shortness of breath Other Reaction(s): Not available, Rash Other Reaction(s): Rash Leucine Chlorproethazine Unknown Other Reaction(s): abdominal pain Clarithromycin Unknown Other Reaction(s): Not available, Unknown Reaction Other Reaction(s): Unknown Reaction Collagen Other Reaction(s): the Sinvist collagen in the knee Doxycycline Other Reaction(s): Unknown Other Reaction(s): Not available Hylan G-F 20 Swelling and Unknown Other Reaction(s): Itching, Not available Other Reaction(s): Itching, swelling Metal (Generic) Other Reaction(s): Edema Wound Dressing Adhesive Other Reaction(s): abdominal pain, Blister Other Reaction(s): Blister Chlorpromazine Rash and Unknown Other Reaction(s): Hives, Not available Other Reaction(s): Hives Nickel Rash and Unknown Other Reaction(s): Not available Other Reaction(s): Unknown Reaction Nitrous Oxide GI intolerance, Nausea And Vomiting and Unknown Other Reaction(s): Not available, Vomiting Other Reaction(s): Vomiting PAST MEDICAL HISTORY: SOCIAL HISTORY SURGICAL HISTORY: Past Medical History: Diagnosis Date Acute tonsillitis Adenocarcinoma (HCC) Ankle fracture Aortic stenosis Appendicitis Arthritis Asthma (HCC) Atrial fibrillation (HCC) Blepharitis Breast pain, right Bunion CAD (coronary artery disease) Carpal tunnel syndrome Cataracts, bilateral Cerebrovascular accident (HCC) DCIS (ductal carcinoma in situ) of breast Right ER/HI+ Dry eyes Esophageal ulcer Family history of cancer H/O abdominoplasty Heart disease Hiatal hernia History of colonic polyps Hyperlipidemia Hypertension Migraines Mitral valve prolapse Nephrolithiasis PCO (posterior capsular opacification) Sleep apnea Torn meniscus Social History Tobacco Use Smoking status: Former Types: Cigarettes Smokeless tobacco: Never Vaping Use Vaping status: Never Used Substance Use Topics Alcohol use: Never Drug use: Never Past Surgical History: Procedure Laterality Date BI US GUIDED BREAST LOCALIZATION AND BIOPSY LEFT Left 06/06/2020 BI US GUIDED BREAST LOCALIZATION AND BIOPSY LEFT NOMS DATA LEGACY BREAST LUMPECTOMY Right 05/2020 BUNIONECTOMY CARDIAC CATHETERIZATION CARPAL TUNNEL RELEASE CATARACT EXTRACTION EXTRACAPSULAR W/ INTRAOCULAR LENS IMPLANTATION Bilateral 2011 CHOLECYSTECTOMY COLONOSCOPY W/ BIOPSIES AND POLYPECTOMY 2019 CORONARY ARTERY BYPASS GRAFT 2019 CT GUIDED ABSCESS FLUID COLLECTION DRAINAGE 06/19/2022 CT GUIDED ABSCESS FLUID COLLECTION DRAINAGE 06/19/2022 CYSTOSCOPY W/ LASER LITHOTRIPSY 1985 CYSTOSCOPY W/ RETROGRADES 2009 LUNG REMOVAL, PARTIAL REPLACEMENT TOTAL KNEE ONCOLOGIC Left July 2024 TOTAL KNEE ARTHROPLASTY 2014 Left knee replacement 07/27/24 FAMILY HISTORY Family History Problem Relation Name Age of Onset Pancreatic cancer Mother Breast cancer Sister Colon cancer Neg Hx Ovarian cancer Neg Hx Melanoma Neg Hx REVIEW OF SYMPTOMS: Review of Systems Constitutional: Negative for diaphoresis and unexpected weight change. HENT: Negative for hearing loss, tinnitus and voice change. Respiratory: Positive for shortness of breath. Cardiovascular: Negative for chest pain and palpitations. Musculoskeletal: Negative for arthralgias. Neurological: Negative for dizziness, seizures and headaches. All other systems reviewed and are negative. Hematological: Negative for adenopathy. Does not bruise/bleed easily. OBJECTIVE: Visit Vitals OB Status Postmenopausal Smoking Status Former Physical Exam Exam conducted with a pipeliner present. HENT: Head: Normocephalic. Cardiovascular: Rate and Rhythm: Normal rate and regular rhythm. Pulmonary: Effort: Pulmonary effort is normal. Breath sounds: Normal breath sounds. Chest: Comments: Bilateral subclavicular, infraclavicular and axillary lymph nodes were normal. Each breast was examined in the sitting and supine position. There was no evidence of abnormal masses, skin dimpling or nipple discharge in either breast. The right breast has the well healed surgical scar in the inframammary fold, in the medial corner of the incision at the 5:00 postion at the inframamary fold is a 1 cm mass that has been noted in the past. Abdominal: General: Abdomen is flat. Bowel sounds are normal. Palpations: Abdomen is soft. Skin: General: Skin is warm and dry. Neurological: Mental Status: She is alert. ASSESSMENT AND PLAN: Assessment/Plan Diagnoses and all orders for this visit: Ductal carcinoma in situ (DCIS) of right breast Jemima is doing well, she had a PET on 02/15/25 that was negative. Concerning the right breast mass in the incision I believe it is scar tissue but will get an US of the area when they do her mamm's in March. I'll see her in 6 mths for follow up and will call her with the results of the imaging. documented in this encounter [facility] 02-17-2025 Telephone encounter Note Toshia: Information ready for you. Xenia Bright Pss [facility] 02-17-2025 Telephone encounter Note Faxed CTA to [facility] 02-16-2025 Telephone encounter Note Pt aware of results, need for CTA and Vascular surgery referral. She prefers to go to [facility] for both, as travel to [facility] is difficult. Called and spoke with radiology nurse, Irais. IV fluids orders need to be in comment section of CTA orders. 1 Liter NS over 1 hour to be given prior to scan. PSS: Please arrange for scans at [facility] Toshia/Obed: Please forward vascular surgery referral to [facility] MM: Please complete orders with above request for IV hydration Pt requests pre meds to [facility] Arianna Jane RN [facility] 02-16-2025 Telephone encounter Note Please call and inform patient that PET shows concern for possible penetrating atherosclerotic ulcer of infrarenal abdominal aorta. She needs a CTA abd/pelvis and vascular surgery consult. Patient has ckd and ct dye allergy so will need fluids and premeds per protocol of the facility this is scheduled at. Katie Cook PA-C [facility] 02-15-2025 History of Present illness Narrative Radiology Service Progress Note DATE OF SERVICE: February 15, 2025 TIME: 10:09 AM PATIENT IDENTITY VERIFICATION COMPLETED USING TWO (2) STANDARD IDENTIFIERS: Name and Date of confirmed by patient verbally. FALL SCREENING: Has the patient had 2 falls in the last year or 1 fall with injury or currently using an Ambulatory Assistive Device (Walker, Cane, Wheelchair, Crutches, etc.)? No PATIENT GENDER DATA: Assigned female at . status: : No status: NO. EXAM: CT -CONTRAST INDUCED NEPHROPATHY RISK FACTORS: Not applicable CREATININE: Creatinine Date Value Ref Range Status 01/26/2025 1.26 (H) 0.58 - 0.96 mg/dL Final 12/14/2024 1.20 (H) 0.58 - 0.96 mg/dL Final 12/07/2024 1.22 (H) 0.58 - 0.96 mg/dL Final Estimated Glomerular Filtration Rate Date Value Ref Range Status 01/26/2025 42 (L) >=60 mL/min/1.73m Final Comment: Estimated Glomerular Filtration Rate (eGFR) is calculated using the 2020 CKD-EPI creatinine equation. This equation utilizes serum creatinine, sex, and age as parameters. The creatinine assay has traceable calibration to isotope dilution-mass spectrometry. Refer to KDIGO guidelines for clinical interpretation. In patients with unstable renal function, e.g. those with acute kidney injury, the eGFR may not accurately reflect actual GFR. eGFR- Date Value Ref Range Status 08/10/2021 49 Final P.O.C.T. RESULTS: POC done: Yes, See Lab Tab February 15, 2025 TREATMENT: N/A IV SITE: Ambulatory: A peripheral IV was started in the Right antecubital site with a Angio cath: 22 gauge. IV SITE APPEARANCE: Clean,Dry and Intact SIGNATURE: Natalia Mcdonald RN PATIENT NAME: Jemima Bradford DATE: February 15, 2025 TIME: 10:09 AM RADIOLOGY SERVICE PROGRESS NOTE SERVICE DATE: 02/15/2025 SERVICE TIME: 12:26 PM PATIENT IDENTITY VERIFICATION COMPLETED USING TWO (2) STANDARD IDENTIFIERS: Name and Date of confirmed by patient verbally POST EXAM PIV STATUS: Discontinued PROCEDURE TYPE: NM INJECT: PET/CT BODY SCAN. 9.5 mCi F18 FDG. Administered By: . No other medications given.. ADMINISTRATION TIME: 1009 PATIENT DISCHARGED TO: Ambulatory patient, left [place] department area. Is this a therapy: No A Diagnostic radioactive procedure has taken place, with no further precautions necessary other than routine body substance precautions. More information regarding radiation safety can be found using this link: [email or web address] %[email or web address] SIGNATURE: JENNIE Rodriguez) PATIENT NAME: Jemima Bradford DATE: February 15, 2025 TIME: 12:26 PM PAGER/CONTACT #: documented in this encounter [facility] 02-15-2025 Note HNO ID: [id number] Author: JENNIFER ANDERSON RT(R) Service: ? Author Type: Technologist Type: Progress Notes Filed: 02/15/2025 12:26 Note Text: RADIOLOGY SERVICE PROGRESS NOTE SERVICE DATE: 02/15/2025 SERVICE TIME: 12:26 PM PATIENT IDENTITY VERIFICATION COMPLETED USING TWO (2) STANDARD IDENTIFIERS: Name and Date of confirmed by patient verbally POST EXAM PIV STATUS: Discontinued PROCEDURE TYPE: NM INJECT: PET/CT BODY SCAN. 9.5 mCi F18 FDG. Administered By: . No other medications given.. ADMINISTRATION TIME: 1009 PATIENT DISCHARGED TO: Ambulatory patient, left [place] department area. Is this a therapy: No A Diagnostic radioactive procedure has taken place, with no further precautions necessary other than routine body substance precautions. More information regarding radiation safety can be found using this link: [email or web address] 20Diagnostic%20Nuclear%20Medicine% 20Procedures.[email or web address] SIGNATURE: RT Michael(R) PATIENT NAME: Jemima Bradford DATE: February 15, 2025 TIME: 12:26 PM PAGER/CONTACT #: [facility] 02-15-2025 Note HNO ID: [id number] Author: NATALIA MCDONALD RN Service: ? Author Type: Registered Nurse Type: Progress Notes Filed: 02/15/2025 10:09 Note Text: Radiology Service Progress Note DATE OF SERVICE: February 15, 2025 TIME: 10:09 AM PATIENT IDENTITY VERIFICATION COMPLETED USING TWO (2) STANDARD IDENTIFIERS: Name and Date of confirmed by patient verbally. FALL SCREENING: Has the patient had 2 falls in the last year or 1 fall with injury or currently using an Ambulatory Assistive Device (Walker, Cane, Wheelchair, Crutches, etc.)? No PATIENT GENDER DATA: Assigned female at . status: : No status: NO. EXAM: CT -CONTRAST INDUCED NEPHROPATHY RISK FACTORS: Not applicable CREATININE: Creatinine Date Value Ref Range Status 01/26/2025 1.26 (H) 0.58 - 0.96 mg/dL Final 12/14/2024 1.20 (H) 0.58 - 0.96 mg/dL Final 12/07/2024 1.22 (H) 0.58 - 0.96 mg/dL Final Estimated Glomerular Filtration Rate Date Value Ref Range Status 01/26/2025 42 (L) >=60 mL/min/1.73m? Final Comment: Estimated Glomerular Filtration Rate (eGFR) is calculated using the 2020 CKD-EPI creatinine equation. This equation utilizes serum creatinine, sex, and age as parameters. The creatinine assay has traceable calibration to isotope dilution-mass spectrometry. Refer to KDIGO guidelines for clinical interpretation. In patients with unstable renal function, e.g. those with acute kidney injury, the eGFR may not accurately reflect actual GFR. eGFR- Date Value Ref Range Status 08/10/2021 49 Final P.O.C.T. RESULTS: POC done: Yes, See Lab Tab February 15, 2025 TREATMENT: N/A IV SITE: Ambulatory: A peripheral IV was started in the Right antecubital site with a Angio cath: 22 gauge. IV SITE APPEARANCE: Clean,Dry and Intact SIGNATURE: Natalia Mcdonald RN PATIENT NAME: Jemima Bradford DATE: February 15, 2025 TIME: 10:09 AM [facility] 02-12-2025 Telephone encounter Note Please sign pended PET-MAGGIE from Dr. Adan Thank You! Natalia Mcdonald RN [facility] 02-12-2025 Miscellaneous Notes Please sign pended PET-MAGGIE from Dr. Adan Thank You! Natalia Mcdonald RN documented in this encounter [facility] 02-09-2025 Note [facility] Electrophysiology Consult Note Reason for Consultation: AV repalcement+ MAZE, s/p Atypical LA flutter ablation 02/09/2025 Patient is here today per [facility] wanting her seen due to dizziness, feeling fuzzy which they feel could be heart related. Patient complains of dizziness, fuzziness, unable to focus eyes, when episodes occur she usually grabs on to something and the episode passes in a minute. 10/20/24 Pt doing well and recovering from [...] aortic valve was seen with good flow. ECHO 10/15/23 Patient here for 6 mo follow up PAF, CAD, and hypertension. C/o SOB, LE edema, and weight gain. C/o wheezing. Denies chest pain and bleeding on Eliquis. she is on Bumex 1 mg which has been replaced for Lasix. she is also on Aldactone. She states that she is not being diuresing as well and her last creatinine was 1.34 that was done at [facility] on 09/18/2023 Which is an improvement from 1.4 that was done in May 2023. EKG 06/26/23 SR. 04/01/23 Patient for follow-up of her echocardiogram aortic valve replacement is well-seated with no concerns EF 55% shows mildly [...] ischemia. she is supposed to follow-up with [facility] for her oncology follow-up. he tells me [...] 10, 11 and 12; Cryoanalgesia procedure, interspaces 5 - 7 on 06/13/22 for a Left upper lobe adenocarcinoma at [facility] this was complicated by left apical hydropneumothorax [...] 94 to 97%. he was evaluated by high school tutor for the above and they had changed her medication from Accolate to Singulair for cost reasons. EKG 09/18/22 SR Prior HPI: Jemima Bradford is a 84 y.o. year old with past medical history of Aortic valve replacement with 23 mm Avalus pericardial valve, Breast CA s/p XRT, Coronary artery bypass grafting x1, MARCUS to LAD + Extended left atrial CryoMaze procedure and exclusion of left atrial appendage using 45 mm AtriClip device, Aortic root enlargement with pericardial patch using Nicks technique with h/o of atrial fibrillation/ flutter with RVR who underwent left atrial flutter ablation. She has been in SR since. She was recently Dx with lung CA and BX proven for adeno CA. She is being planned for lobectomy at [facility] EK05/15/22 SR 02/27/22 SR 08/11/21 SR 05/30/21 [...] 3. Ablation of CTI flutter. 4. EP (more content not included)... [facility] 01-27-2025 Telephone encounter Note VM left for pt with MM message below. Encouraged to call with any questions, needs or concerns. Follow up appointment date and time provided. Gia Clayton RN [facility] 01-27-2025 Miscellaneous Notes VM left for pt with MM message below. Encouraged to call with any questions, needs or concerns. Follow up appointment date and time provided. Gia Clayton RN documented in this encounter [facility] 01-26-2025 Telephone encounter Note JACQUES left with response. Gia Clayton RN [facility] 01-26-2025 Miscellaneous Notes JACQUES left with response. Gia Clayton RN I told the patient it would be a good idea to call her cash posting specialist with her new symptoms. She does report that every 10-14 days she feels like her head swims and she has to hold on to something. She describes it as feeling like her head is going around and it lasts about 45 seconds. It has happened 5-6 times over the last few months. I told her she should make sure cash posting specialist didn't feel it may be due to her underlying arrhythmia and/or leaky heart valve. Katie Cook PA-C REBECCA Florez from [place] [facility] at [facility] calling to clarify urgent visit to sales office manager, Dr Dan. Pt called to report Katie recommended pt to see them brenda, but pt could not explain why. Pt is scheduled with her regular cash posting specialist, Dr Ricci, Mar 29. MM: Please advise Gia Clayton RN documented in this encounter [facility] 01-26-2025 Telephone encounter Note I told the patient it would be a good idea to call her cash posting specialist with her new symptoms. She does report that every 10-14 days she feels like her head swims and she has to hold on to something. She describes it as feeling like her head is going around and it lasts about 45 seconds. It has happened 5-6 times over the last few months. I told her she should make sure cash posting specialist didn't feel it may be due to her underlying arrhythmia and/or leaky heart valve. Katie Cook PA-C [facility] 01-26-2025 Telephone encounter Note REBECCA Florez from [place] [facility] at [facility] calling to clarify urgent visit to sales office manager, Dr Dan. Pt called to report Katie recommended pt to see them brenda, but pt could not explain why. Pt is scheduled with her regular cash posting specialist, Dr Ricci, Mar 29. MM: Please advise Gia Clayton RN [facility] 01-26-2025 History of Present illness Narrative PATIENT NAME: Jemima Bradford DATE: 01/26/2025 PRIMARY CARE PHYSICIAN: Jasmyne Casillas CNP ([facility]) OTHER PHYSICIANS: Dr. Keene, Dr. Ferrari ([facility] Cardiology, [place]), Dr. Pizarro, Dr. Arguelles, Dr. Shaniqua Ellsworth (Pulmonary, [place] [place]), Dr. Mitzi Amaral, Dr. Tovar ([facility] orthopedic surgery) Portions of this encounter note have been copied from the note from 12/14/2024 and has been updated where appropriate, and reflect my current medical decision making from today. 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 INTERIM HISTORY: Patient is an 84-year-old female with a history of DCIS, lung cancer, and mild renal insufficiency. Recently found to have iron deficiency anemia and she received Venofer 300 mg x 3 doses December 22-January 06, 2025. She feels better after receiving the iron. She does report that every 10-14 days she feels like her head swims and she has to hold on to something. She describes it as feeling like her head is going around and it lasts about 45 seconds. It has happened 5-6 times over the last few months. No headaches, double vision. MEDICATIONS: atorvastatin (LIPITOR) 80 mg tablet Take 80 mg by mouth. ferrous sulfate 325 mg (65 mg iron) tablet Take 325 mg by mouth. gabapentin (NEURONTIN) 300 mg capsule Take 300 mg by mouth. bumetanide (BUMEX) 1 mg tablet Take 1 mg by mouth two times a day. montelukast (SINGULAIR) 10 mg tablet Take 10 mg by mouth once daily. metoprolol tartrate, short acting, (LOPRESSOR) 25 mg tablet Take 1/2 tablet by mouth twice daily. levothyroxine (SYNTHROID) 50 mcg tablet levothyroxine 50 mcg tablet TAKE 1 TABLET BY MOUTH DAILY FOR HYPOTHYROIDISM apixaban (ELIQUIS) 5 mg tab(s) Eliquis 5 mg tablet Take 1 tablet twice a day by oral route for 90 days. calcium carbonate (CALTRATE) 600 mg calcium (1,500 mg) tab 600 mg. melatonin 10 mg tab 10 mg. spironolactone (ALDACTONE) 25 mg tablet Take 25 mg by mouth once daily. esomeprazole (NEXIUM) 40 mg capsule Take 40 mg by mouth as directed. Twice per week nitroglycerin sublingual (NITROQUICK) 0.4 mg SL tablet Dissolve 1 tablet under the tongue every 5 minutes as needed. COQ10, UBIQUINOL, ORAL Take 1 tablet by mouth once daily. Chromium Picolinate 500 mcg cap Take 1 tablet by mouth once daily. MAGNESIUM ORAL Take 1 tablet by mouth once daily. 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 Aortic valve stenosis mild Arthritis Asthma controlled no inhalers Coronary artery disease Hypercholesteremia Hypertension Polymyalgia rheumatica (HCC) PAST SURGICAL HISTORY: PAST SURGICAL HISTORY Procedure Laterality Date APPENDECTOMY 07/01/1978 ARTHROSCOPY KNEE MEDIAL RELEASE 2002,2010 rt & Lt knee ARTHRP KNE CONDYLE&PLATU MEDIAL&LAT COMPARTMENTS Right 07/01/2013 right x2 BREAST LUMPECTOMY HX BUNIONECTOMY, LAPIDUS-TYPE 07/01/2010 rt toe CHOLECYSTECTOMY 07/01/2005 COLONOSCOPY & POLYPECTOMY 2004, 2005, 2009 x 3 CYSTO LASER TX URETERAL CALC 07/01/2009 stent placement CYSTO W/RETROGRADE x 6 D&C (INCOMPLETE AB), ANY TRIMESTER 07/01/1974 EXCISE EXCESS SKIN TISSUE,ABDOMEN 07/01/1994 Abdominalplasty KNEE SURGERY HX Left 07/27/2024 LITHOTRIPSY PROC UNILATERAL 07/01/1985 rt kidney PAST SURGICAL HISTORY OF 12/03/2019 CABG 1v, cryomaze and AVr REMV CATARACT EXTRACAP,INSERT LENS STENT PLACEMENT 07/01/2003 LAD TONSILLECTOMY HX as child REVIEW OF SYSTEMS: GENERAL: No weight loss, malaise or fevers. +weakness and fatigue HEENT: Negative for frequent or significant headaches, No changes in hearing or vision, no nose bleeds or other nasal problems RESPIRATORY: Negative for cough, wheezing + ROGEL CARDIOVASCULAR: Negative for chest pain, leg swelling or palpitations. GI: Negative for abdominal discomfort, blood in stools or black stools or change in bowel habits : No history of dysuria, frequency or incontinence MUSCULOSKELETAL: Negative for: joint pain or swelling, back pain and muscle pain SKIN: Negative for lesions, rash, and itching. HEMATOLOGY/LYMPHOLOGY: Negative for prolonged bleeding, bruising easily or swollen nodes. NEURO: No history of headaches, syncope, paralysis, seizures or tremors PHYSICAL EXAM: Vitals: BP (!) 108/45 Pulse 61 Temp 36.2 C (97.1 F) (Temporal) Resp 16 Ht 165.1 cm (5' 5 ) Wt 77.4 kg (170 lb 9.6 oz) SpO2 99% BMI 28.39 kg/m General: Alert and oriented, no distress, pleasant and cooperative. Heart: Regular, normal S1 and S2, no rubs, or gallops +murmur Lungs: Clear to auscultation bilaterally Abdomen: Benign, no HSM Extremities: Feet/ankles with minimal edema Lymph: no cervical, SC or axillary nodes palpable on exam PATHOLOGY: 06/13/2022 Left upper lobectomy and regional lymph node dissection A. Lymph node, level 9, excision: - Negative for tumor (0/1). B. Lymph node, 12 central, excision: - Negative for tumor (0/1). C. Lymph node, 11 anterior, excision: - Negative for tumor (0/1). D. Lymph node, 11 posterior, excision: - Negative for tumor (0/1). E. Lymph node, another 11 posterior, excision: - Negative for tumor (0/1). F. Lymph node, 10, excision: - Negative for tumor (0/1). G. Lymph node, 5, excision: - Negative for tumor (0/1). H. Lymph node, 7, excision: - Negative for tumor (0/1). I. Lung, left upper lobe, lingula-sparing left upper lobectomy: - Adenocarcinoma (2 cm), micropapillary predominant (70%), with additional papillary (20%), and acinar (10%) patterns (See synoptic template). - Seven hilar/peribronchial lymph nodes, negative for tumor (0/7). - Margins negative. ALK (D5F3) IMMUNOHISTOCHEMISTRY ASSAY Results: Positive Immunohistochemistry for PD-L1 expression Tumor Cells Positive: 70% ROS1 Rearrangement 0% RET Rearrangement 0% BRAF - No variant detected [Reference Sequence: ([id number])]. EGFR - No variant detected [Reference Sequence: ([id number])]. HER2 (ERBB2) - No variant detected [Reference Sequence: ([id number])]. KRAS - No variant detected [Reference Sequence: ([id number])]. MET - No variant detected [Reference Sequence: ([id number])]. 04/25/2022 CT directed biopsy left upper lung mass ([facility]) Adenocarcinoma consistent with lung primary 06/21/2020 Right breast lumpectomy ([facility]) Ductal carcinoma in situ, low nuclear grade, cribriform and solid types, 1.3 cm in greatest dimension. Posterior margin is within 1 mm from DCIS. ER 99%, HI 99% 06/06/2020 Left breast biopsy ([facility]) Columnar cell change/hyperplasia. Usual ductal hyperplasia. 05/25/2020 Right breast biopsy ([facility]) Ductal carcinoma in situ, nuclear grade 1. ER positive (99%, HI positive (99%) RADIOLOGY/OTHER STUDIES: 08/10/2024 CT chest IMPRESSION: 1. No interval change since 05/19/24. 2. Subcentimeter nodular opacities and groundglass opacities, stable. 2. Subcentimeter thoracic lymph nodes, stable. 05/19/2024 CT chest IMPRESSION: 1. Small left supraclavicular lymph nodes. Although subcentimeter in size, these are slightly increased in size when compared to 11/19/2023. The possibility of this representing metastatic adenopathy cannot be excluded given the change in size. Would advise further evaluation with either a PET/CT at this time or a short-term follow-up chest CT with contrast in 3 months. 2. Stable subcentimeter pulmonary nodules. 04/28/2024 Bilateral diagnostic mammogram ([facility]) Benign, no evidence of malignancy. Normal interval follow-up at 12 months. 11/19/2023 CT chest IMPRESSION: 1. Surgical changes compatible with left upper lobectomy with stable appearance when compared to the prior exam. No significant thoracic adenopathy. Stable subcentimeter solid nodule in groundglass nodule in the right upper lobe of the lungs. Would advise continued imaging surveillance. 06/04/2023 Bone density DEXA 1. Bone mineral density by WHO criteria: Osteoporosis. Fracture risk high. WHO 10-year fracture risk assessment described above. 2. When compared with the most recent study 05/31/2021, there has been a 7.3% increase in bone mineral density of the lumbar spine, and a 3.1% decrease in bone mineral density at the left hip. 05/21/2023 CT chest IMPRESSION: 1. Postoperative changes involving left hemithorax, stable in appearance from prior examination of 01/10/2023. 2. Subcentimeter right upper lobe nodules, unchanged. 3. No substantial intrathoracic adenopathy is appreciated. 3. Newly apparent subacute/healing fractures involving the right 5th through 7th ribs are appreciated. 04/30/2023 Bilateral diagnostic mammogram ([facility]) Benign, no evidence of malignancy. Normal interval follow-up at 12 months. 01/10/2023 CT chest IMPRESSION: 1. Postoperative changes involving left hemithorax, as above. Improving loculated left apical pleural effusion and adjacent left perihilar atelectasis, as above. Patchy left upper lung zone groundglass opacities are identified on today's examination. 2. Subcentimeter right upper lobe nodules, larger measuring 7 mm, stable. 3. No substantial intrathoracic adenopathy is appreciated. 07/12/2022 CT chest IMPRESSION: 1. Since 06/19/2022, removal of left anterior pleural catheter and left basilar chest tubes. Increase in size of anterior pleural effusion within the lobectomy cavity and left basilar small pleural effusion. Resolution of previously seen pneumothorax component. 2. Stable regions of atelectasis/scarring involving the left lung and anterior right middle lobe. No new airspace consolidation. 3. Unchanged indeterminate 0.7 cm right upper lobe pulmonary nodule. Continued attention on subsequent studies is suggested. 4. No progressive lymphadenopathy. 05/02/2022 Brain MRI ([facility]) Brain MRI within limits of normal. No signs of intracranial mass or abnormal enhancement. 04/11/2022 PET scan ([facility]) Nodular opacity in the left upper lobe demonstrates moderate uptake. No signs of distant metastases. 04/04/2022 High-resolution chest CT ([facility]) Previous linear scarlike opacity left upper lobe measuring 11 x 8 mm in December 2019 is now irregularly lobulated and measures 1.5 x 1.3 cm and is suspicious. PET scan or biopsy recommended. 06/08/2021 Diagnostic right mammogram and right breast ultrasound ([facility]) 2.2 cm complex fluid collection in the lumpectomy bed at the 5 o'clock position. Could be a postoperative seroma, old hematoma, or abscess. No finding to suggest malignancy in the right breast. 05/31/2021 Bone density DEXA ([facility]) Increasing osteopenia in the hips. Significant loss of bone in the lumbar spine, while remaining within normal limits LABORATORY DATA: Hemoglobin (g/dL) Date Value 01/26/2025 9.8 08/10/2021 11.5 Hematocrit (%) Date Value 01/26/2025 31.0 08/10/2021 35.0 WBC (k/uL) Date Value 01/26/2025 5.21 08/10/2021 5.13 Platelet Count (k/uL) Date Value 01/26/2025 158 08/10/2021 133 ASSESSMENT/PLAN: 1. 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 Status post lingular sparing left upper lobectomy and mediastinal lymph node dissection 06/13/2022. Pathology revealed the primary tumor was 2 cm, 0 of 15 lymph nodes involved, margins negative. The primary tumor was positive for ALK mutation, plus elevated PD-L1 expression. Postop it was elected not to treat with adjuvant chemotherapy or adjuvant radiation therapy, and routine follow-up recommended. Since initial diagnosis and surgery the patient has had no documented recurrence. Restaging chest CT 05/19/2024 revealed small left supraclavicular lymph nodes. Although subcentimeter in size, these were slightly increased in size when compared to 11/19/2023. The possibility of this representing metastatic adenopathy cannot be excluded given the change in size. Repeat chest CT 08/10/2024 stable. At this time, we plan to restage again at 6 months (January 2025) with a PET scan at her request. This is scheduled and she will need a transition of care visit following the PET scan. 2. 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 The patient presented with right breast pain and was found to have an abnormality in the retroareolar area of the right breast. A right breast breast biopsy obtained 05/25/2020 revealed a low-grade ER/HI positive DCIS. The patient also underwent a left breast biopsy on 06/06/2020 which was benign. Genetic testing revealed no evidence of deleterious mutations. The patient subsequently underwent a right breast lumpectomy on 06/21/2020, and pathology confirmed a 1.3 cm low-grade DCIS with negative margins. Adjuvant hormonal therapy with anastrozole started July 2020. The patient received adjuvant radiation therapy to the right breast 08/08/2020 through 08/19/2020 (3000 cGy in 5 fractions). Due to adverse effects (joint pain, restless legs) the patient discontinued anastrozole August 2024. Currently no evidence of disease. At this time will continue routine observation. Next surveillance mammogram due March 2025. 3. Heart disease - ICD9: 429.9, ICD10: I51.9 History of coronary artery disease and aortic valve stenosis. Status post CABG, aortic valve replacement and cardiac ablation November 2019. History of paroxysmal atrial fibrillation - resolved after her initial cardiac procedure in November 2019. Apparently the patient developed recurrent atrial fibrillation in August 2020 and underwent an additional ablation 01/04/2021. Currently on Eliquis and aspirin. Continue management per PCP/cardiology. 4. 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 Currently on Eliquis and aspirin. Continue management per PCP/neurology. 5. PMR Diagnosed approximately 2018. Currently not on treatment. Continue management per rheumatology. 6. Age-related osteoporosis - ICD9: 733.01, ICD10: M81.0 The patient has a long history of osteopenia. Most recent bone density DEXA May 2023 revealed bone loss in the left hip consistent with osteoporosis. Reviewed the need for Calcium and Vitamin D supplements and weight bearing exercise as tolerated. The patient will discuss with her PCP options for additional therapy including antiresorptive agents. 7. Normocytic anemia She has a worsening anemia, initially discovered in May 2024. Iron studies at that time were borderline low. She has been taking oral iron daily since that time, with her hemoglobin dropping from 11.3 in May 2024 to 8.4. She had a negative EGD and colonoscopy without evidence for a bleeding. She received IV Venofer 300 mg x 3 doses December 22- January 06, 2025. Her hemoglobin has improved slightly. Will see her back in 6-8 weeks with repeat labs. If no significant improvement, will consider EPO injections versus bone marrow biopsy to rule out MDS. She will return in about 8 weeks to repeat labs. Katie Cook PA-C I spent a total of 30 minutes on the date of the service which included preparing to see the patient, [id number] patient care, completing clinical documentation, performing a medically appropriate examination, counseling and educating the patient/family/caregiver, ordering medications, tests, or procedures, independently interpreting results (not separately reported), communicating results to the patient/family/caregiver, and care coordination (not separately reported). documented in this encounter [facility] 01-26-2025 Note HNO ID: [id number] Author: KATIE COOK PA-C Service: ? Author Type: Physician Semiconductor Processing Technician Type: Progress Notes Filed: 01/26/2025 12:17 Note Text: PATIENT NAME: Jemima Bradford DATE: 01/26/2025 PRIMARY CARE PHYSICIAN: Jasmyne Casillas, CURTIS ([facility]) OTHER PHYSICIANS: Dr. Keene, Dr. Ferrari ([facility] Cardiology, [place]), Dr. Pizarro, Dr. Arguelles, Dr. Shaniqua Ellsworth (Pulmonary, [place]), Dr. Mitzi Amaral, Dr. Tovar ([facility] orthopedic surgery) Portions of this encounter note have been copied from the note from 12/14/2024 and has been updated where appropriate, and reflect my current medical decision making from today. 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 INTERIM HISTORY: Patient is an 84-year-old female with a history of DCIS, lung cancer, and mild renal insufficiency. Recently found to have iron deficiency anemia and she received Venofer 300 mg x 3 doses December 22-January 06, 2025. She feels better after receiving the iron. She does report that every 10-14 days she feels like her head swims and she has to hold on to something. She describes it as feeling like her head is going around and it lasts about 45 seconds. It has happened 5-6 times over the last few months. No headaches, double vision. MEDICATIONS: atorvastatin (LIPITOR) 80 mg tablet Take 80 mg by mouth. ferrous sulfate 325 mg (65 mg iron) tablet Take 325 mg by mouth. gabapentin (NEURONTIN) 300 mg capsule Take 300 mg by mouth. bumetanide (BUMEX) 1 mg tablet Take 1 mg by mouth two times a day. montelukast (SINGULAIR) 10 mg tablet Take 10 mg by mouth once daily. metoprolol tartrate, short acting, (LOPRESSOR) 25 mg tablet Take 1/2 tablet by mouth twice daily. levothyroxine (SYNTHROID) 50 mcg tablet levothyroxine 50 mcg tablet TAKE 1 TABLET BY MOUTH DAILY FOR HYPOTHYROIDISM apixaban (ELIQUIS) 5 mg tab(s) Eliquis 5 mg tablet Take 1 tablet twice a day by oral route for 90 days. calcium carbonate (CALTRATE) 600 mg calcium (1,500 mg) tab 600 mg. melatonin 10 mg tab 10 mg. spironolactone (ALDACTONE) 25 mg tablet Take 25 mg by mouth once daily. esomeprazole (NEXIUM) 40 mg capsule Take 40 mg by mouth as directed. Twice per week nitroglycerin sublingual (NITROQUICK) 0.4 mg SL tablet Dissolve 1 tablet under the tongue every 5 minutes as needed. COQ10, UBIQUINOL, ORAL Take 1 tablet by mouth once daily. Chromium Picolinate 500 mcg cap Take 1 tablet by mouth once daily. MAGNESIUM ORAL Take 1 tablet by mouth once daily. 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 Aortic valve stenosis mild Arthritis Asthma controlled no inhalers Coronary artery disease Hypercholesteremia Hypertension Polymyalgia rheumatica (HCC) PAST SURGICAL HISTORY: PAST SURGICAL HISTORY Procedure Laterality Date APPENDECTOMY 07/01/1978 ARTHROSCOPY KNEE MEDIAL RELEASE 2002,2010 rt AND Lt knee ARTHRP KNE CONDYLEANDPLATU MEDIALANDLAT COMPARTMENTS Right 07/01/2013 right x2 BREAST LUMPECTOMY HX BUNIONECTOMY, LAPIDUS-TYPE 07/01/2010 rt toe CHOLECYSTECTOMY 07/01/2005 COLONOSCOPY AND POLYPECTOMY 2004, 2005, 2009 x 3 CYSTO LASER TX URETERAL CALC 07/01/2009 stent placement CYSTO W/RETROGRADE x 6 DANDC (INCOMPLETE AB), ANY TRIMESTER 07/01/1974 EXCISE EXCESS SKIN TISSUE,ABDOMEN 07/01/1994 Abdominalplasty KNEE SURGERY HX Left 07/27/2024 LITHOTRIPSY PROC UNILATERAL 07/01/1985 rt kidney PAST SURGICAL HISTORY OF 12/03/2019 CABG 1v, cryomaze and AVr REMV CATARACT EXTRACAP,INSERT LENS STENT PLACEMENT 07/01/2003 LAD TONSILLECTOMY HX as child REVIEW OF SYSTEMS: GENERAL: No weight loss, malaise or fevers. +weakness and fatigue HEENT: Negative for frequent or significant headaches, No changes in hearing or vision, no nose bleeds or other nasal problems RESPIRATORY: Negative for cough, wheezing + ROGEL CARDIOVASCULAR: Negative for chest pain, leg swelling or palpitations. GI: Negative for abdominal discomfort, blood in stools or black stools or change in bowel habits : No history of dysuria, frequency or incontinence MUSCULOSKELETAL: Negative for: joint pain or swelling, back pain and muscle pain SKIN: Negative for lesions, rash, and itching. HEMATOLOGY/LYMPHOLOGY: Negative for prolonged bleeding, bruising easily or swollen nodes. NEURO: No history of headaches, syncope, paralysis, seizures or tremors PHYSICAL EXAM: Vitals: BP (!) 108/45 Pulse 61 Temp 36.2 ?C (97.1 ?F) (Temporal) Resp 16 Ht 165.1 cm (5' 5 ) Wt 77.4 kg (170 lb 9.6 oz) SpO2 99% BMI 28.39 kg/m? General: Alert and oriented, no distress, pleasant and cooperative. Heart: Regular, normal S1 and S2, no rubs, or gallop (more content not included)... [facility] 01-26-2025 Evaluation note Diagnosis Stage 3a chronic kidney disease (HCC)- Primary Iron deficiency anemia due to chronic blood loss Iron deficiency anemia secondary to blood loss (chronic) Ductal carcinoma in situ (DCIS) of right breast documented in this encounter [facility]. Patient states chest pain comes and goes and SOB and ROGEL. Review of Systems Cardiovascular: Positive for chest pain and dyspnea on exertion. Respiratory: Positive for shortness of breath. Prior HPI: Jemima Bradford is a 84 y.o. year old with past medical history of Aortic valve replacement with 23 mm Avalus pericardial valve, Breast CA s/p XRT, Coronary artery bypass grafting x1, MARCUS to LAD + Extended left atrial CryoMaze procedure and exclusion of left atrial appendage using 45 mm AtriClip device, Aortic root enlargement with pericardial patch using Nicks technique with h/o of atrial fibrillation/ flutter with RVR who underwent left atrial flutter ablation. She has been in SR since. She was recently Dx with lung CA and BX proven for adeno CA. She is being planned for lobectomy at [facility] AV replacement+ MAZE, s/p Atypical LA flutter [...] chest pain No orthopnea, no paroxysmal, dyspnea Follow-up 12/15/2024: Doing okay; shortness of breath on and off [place] that she felt improved after increased dose of Lasix for 3 days Has not had increased weight or leg swelling Notably, she has a history of left lung lobectomy and significant anemia for which she is currently being treated with IV iron Review of Systems Constitutional: Positive for malaise/fatigue. Cardiovascular: Positive for dyspnea on exertion and leg swelling. Respiratory: Positive for cough, shortness of breath and wheezing. ECHO 10/01) 10/15/23 Patient here for 6 mo follow up PAF, CAD, and hypertension. C/o SOB, LE edema, and weight gain. C/o wheezing. Denies chest pain and bleeding on Eliquis. she is on Bumex 1 mg which has been replaced for Lasix. she is also on Aldactone. She states that she is not being diuresing as well and her last creatinine was 1.34 that was done at [facility] on 09/18/2023 Which is an improvement from 1.4 that was done in May 2023. EKG 06/26/23 SR. 04/01/23 Patient for follow-up of her echocardiogram aortic valve replacement is well-seated with no concerns EF 55% shows mildly [...] ischemia. she is supposed to follow-up with [facility] for her oncology follow-up. he tells me [...] 10, 11 and 12; Cryoanalgesia procedure, interspaces 5 - 7 on 06/13/22 for a Left upper lobe adenocarcinoma at [facility] ([place]). this was complicated by left apical hydropneumothorax [...] 94 to 97%. he was evaluated by high school tutor for the above a (more content not included)...[facility]06-16-2025 History of Present illness Narrative* Katie Cook PA-C - 12/14/2024 10:00 AM EDT PATIENT NAME: Jemima Bradford DATE: 12/14/2024 PRIMARY CARE PHYSICIAN: Jasmyne Casillas CNP ([facility]) OTHER PHYSICIANS: Dr. Keene, Dr. Ferrari ([facility] Cardiology, [place]), Dr. Pizarro, Dr. Arguelles, Dr. Shaniqua Ellsworth (Pulmonary, [place]), Dr. Mitzi Amaral, Dr. Tovar ([facility] orthopedicsurgery) Portions of this encounter note have been copied from the note from 12/07/2024 and has been updated where appropriate, and reflect my current medical decision making from today. 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 INTERIM HISTORY: Patient is an 84-year-old female with a history of DCIS, lung cancer, and mild renal insufficiency, currently managed with oral iron supplementation, presenting for evaluation of worsening anemia. In May 2024, labs revealed iron deficiency with a hemoglobin level of 11.4 g/dL. She was started on oral iron supplementation. By August, her hemoglobin decreased to 10.2 g/dL, and further declined to the 8 g/dL range during a cardiology visit in October 2024. A comprehensive GI workup, including endoscopy and colonoscopy, showed no significant findings to explain the anemia. Recent labs showed normal B12 and folate levels, and no evidence of hemolysis. M protein was negative. Iron studies were essentially normal, but ferritin was on the low end of normal. EPO level is pending. Patient reports no significant changes in how she feels and denies any new symptoms. She is scheduled to see her shake cutter this week. MEDICATIONS: atorvastatin (LIPITOR) 80 mg tablet Take 80 mg by mouth. ferrous sulfate 325 mg (65 mg iron) tablet Take 325 mg by mouth. gabapentin (NEURONTIN) 300 mg capsule Take 300 mg by mouth. bumetanide (BUMEX) 1 mg tablet Take 1 mg by mouth two times a day. montelukast (SINGULAIR) 10 mg tablet Take 10 mg by mouth once daily. metoprolol tartrate, short acting, (LOPRESSOR) 25 mg tablet Take 1/2 tablet by mouth twice daily. levothyroxine (SYNTHROID) 50 mcg tablet levothyroxine 50 mcg tablet TAKE 1 TABLET BY MOUTH DAILY FOR HYPOTHYROIDISM apixaban (ELIQUIS) 5 mg tab(s) Eliquis 5 mg tablet Take 1 tablet twice a day by oral route for 90 days. calcium carbonate (CALTRATE) 600 mg calcium (1,500 mg) tab 600 mg. melatonin 10 mg tab 10 mg. spironolactone (ALDACTONE) 25 mg tablet Take 25 mg by mouth once daily. esomeprazole (NEXIUM) 40 mg capsule Take 40 mg by mouth as directed. Twice per week nitroglycerin sublingual (NITROQUICK) 0.4 mg SL tablet Dissolve 1 tablet under the tongue every 5 minutes as needed. COQ10, UBIQUINOL, ORAL Take 1 tablet by mouth once daily. Chromium Picolinate 500 mcg cap Take 1 tablet by mouth once daily. MAGNESIUM ORAL Take 1 tablet by mouth once daily. 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 Aortic valve stenosis mild Arthritis Asthma controlled no inhalers Coronary artery disease Hypercholesteremia Hypertension Polymyalgia rheumatica (HCC) PAST SURGICAL HISTORY: PAST SURGICAL HISTORY Procedure Laterality Date APPENDECTOMY 07/01/1978 ARTHROSCOPY KNEE MEDIAL RELEASE 2002,2010 rt & Lt knee ARTHRP KNE CONDYLE&PLATU MEDIAL&LAT COMPARTMENTS Right 07/01/2013 right x2 BREAST LUMPECTOMY HX BUNIONECTOMY, LAPIDUS-TYPE 07/01/2010 rt toe CHOLECYSTECTOMY 07/01/2005 COLONOSCOPY & POLYPECTOMY 2004, 2005, 2009 x 3 CYSTO LASER TX URETERAL CALC 07/01/2009 stent placement CYSTO W/RETROGRADE x 6 D&C (INCOMPLETE AB), ANY TRIMESTER 07/01/1974 EXCISE EXCESS SKIN TISSUE,ABDOMEN 07/01/1994 Abdominalplasty KNEE SURGERY HX Left 07/27/2024 LITHOTRIPSY PROC UNILATERAL 07/01/1985 rt kidney PAST SURGICAL HISTORY OF 12/03/2019 CABG 1v, cryomaze and AVr REMV CATARACT EXTRACAP,INSERT LENS STENT PLACEMENT 07/01/2003 LAD TONSILLECTOMY HX as child REVIEW OF SYSTEMS: GENERAL: No weight loss, malaise or fevers. +weakness and fatigue HEENT: Negative for frequent or significant headaches, No changes in hearing or vision, no nose bleeds or other nasal problems RESPIRATORY: Negative for cough, wheezing + ROGEL CARDIOVASCULAR: Negative for chest pain, leg swelling or palpitations. GI: Negative for abdominal discomfort, blood in stools or black stools or change in bowel habits : No history of dysuria, frequency or incontinence MUSCULOSKELETAL: Negative for: joint pain or swelling, back pain and muscle pain SKIN: Negative for lesions, rash, and itching. HEMATOLOGY/LYMPHOLOGY: Negative for prolonged bleeding, bruising easily or swollen nodes. NEURO: No history of headaches, syncope, paralysis, seizures or tremors PHYSICAL EXAM: Vitals: BP 115/73 Pulse 70 Temp 36.4 C (97.5 F) (Temporal) Resp 16 Ht 165.1 cm (5' 5 ) Wt78.2 kg (172 lb 6.4 oz) SpO2 98% BMI 28.69 kg/m General: Alert and oriented, no distress, pleasant and cooperative. Heart: Regular, normal S1 and S2, no rubs, or gallops +murmur Lungs: Clear to auscultation bilaterally Abdomen: Benign, no HSM Extremities: Feet/ankles with minimal edema Lymph: no cervical, SC or axillary nodes palpable on exam PATHOLOGY: 06/13/2022 Left upper lobectomy and regional lymph node dissection A. Lymph node, level 9, excision: - Negative for tumor (0/1). B. Lymph node, 12 central, excision: - Negative for tumor (0/1). C. Lymph node, 11 anterior, excision: - Negative for tumor (0/1). D. Lymph node, 11 posterior, excision: - Negative for tumor (0/1). E. Lymph node, another 11 posterior, excision: - Negative for tumor (0/1). F. Lymph node, 10, excision: - Negative for tumor (0/1). G. Lymph node, 5, excision: - Negative for tumor (0/1). H. Lymph node, 7, excision: - Negative for tumor (0/1). I. Lung, left upper lobe, lingula-sparing left upper lobectomy: - Adenocarcinoma (2 cm), micropapillary predominant (70%), with additional papillary (20%), and acinar (10%) patterns (See synoptic template). - Seven hilar/peribronchial lymph nodes, negative for tumor (0/7). - Margins negative. ALK (D5F3) IMMUNOHISTOCHEMISTRY ASSAY Results: Positive Immunohistochemistry for PD-L1 expression Tumor Cells Positive: 70% ROS1 Rearrangement 0% RET Rearrangement 0% BRAF - No variant detected [Reference Sequence: ([id number])]. EGFR - No variant detected [Reference Sequence: ([id number])]. HER2 (ERBB2) - No variant detected [Reference Sequence: ([id number])]. KRAS - No variant detected [Reference Sequence: ([id number])]. MET - No variant detected [Reference Sequence: ([id number])]. 04/25/2022 CT directed biopsy left upper lung mass ([facility]) Adenocarcinoma consistent with lung primary 06/21/2020 Right breast lumpectomy ([facility]) Ductal carcinoma in situ, low nuclear grade, cribriform and solid types, 1.3 cm in greatest dimension. Posterior margin is within 1 mm from DCIS. ER 99%, HI 99% 06/06/2020 Left breast biopsy ([facility]) Columnar cell change/hyperplasia. Usual ductal hyperplasia. 05/25/2020 Right breast biopsy ([facility]) Ductal carcinoma in situ, nuclear grade 1. ER positive (99%, HI positive (99%) RADIOLOGY/OTHER STUDIES: 08/10/2024 CT chest IMPRESSION: 1. No interval change since 05/19/24. 2. Subcentimeter nodular opacities and groundglass opacities, stable. 2. Subcentimeter thoracic lymph nodes, stable. 05/19/2024 CT chest IMPRESSION: 1. Small left supraclavicular lymph nodes. Although subcentimeter in size, these are slightly increased in size when compared to 11/19/2023. The possibility of this representing metastatic adenopathy cannot be excluded given the change in size. Would advise further evaluation with either a PET/CT at this time or a short-term follow-up chest CT with contrast in 3 months. 2. Stable subcentimeter pulmonary nodules. 04/28/2024 Bilateral diagnostic mammogram ([facility]) Benign, no evidence of malignancy. Normal interval follow-up at 12 months. 11/19/2023 CT chest IMPRESSION: 1. Surgical changes compatible with left upper lobectomy with stable appearance when compared to the prior exam. No significant thoracic adenopathy. Stable subcentimeter solid nodule in groundglass nodule in the right upper lobe of the lungs. Would advise continued imaging surveillance. 06/04/2023 Bone density DEXA 1. Bone mineral density by WHO criteria: Osteoporosis. Fracture risk high. WHO 10-year fracture risk assessment described above. 2. When compared with the most recent study 05/31/2021, there has been a 7.3% increase in bone mineral density of the lumbar spine, and a 3.1% decrease in bone mineral density at the left hip. 05/21/2023 CT chest IMPRESSION: 1. Postoperative changes involving left hemithorax, stable in appearance from prior examination of 01/10/2023. 2. Subcentimeter right upper lobe nodules, unchanged. 3. No substantial intrathoracic adenopathy is appreciated. 3. Newly apparent subacute/healing fractures involving the right 5th through 7th ribs are appreciated. 04/30/2023 Bilateral diagnostic mammogram ([facility]) Benign, no evidence of malignancy. Normal interval follow-up at 12 months. 01/10/2023 CT chest IMPRESSION: 1. Postoperative changes involving left hemithorax, as above. Improving loculated left apical pleural effusion and adjacent left perihilar atelectasis, as above. Patchy left upper lung zone groundglass opacities are identified on today's examination. 2. Subcentimeter right upper lobe nodules, larger measuring 7 mm, stable. 3. No substantial intrathoracic adenopathy is appreciated. 07/12/2022 CT chest IMPRESSION: 1. Since 06/19/2022, removal of left anterior pleural catheter and left basilar chest tubes. Increase in size of anterior pleural effusion within the lobectomy cavity and left basilar small pleural effusion. Resolution of previously seen pneumothorax component. 2. Stable regions of atelectasis/scarring involving the left lung and anterior right middle lobe. No new airspace consolidation. 3. Unchanged indeterminate 0.7 cm right upper lobe pulmonary nodule. Continued attention on subsequent studies is suggested. 4. No progressive lymphadenopathy. 05/02/2022 Brain MRI ([facility]) Brain MRI within limits of normal. No signs of intracranial mass or abnormal enhancement. 04/11/2022 PET scan ([facility]) Nodular opacity in the left upper lobe demonstrates moderate uptake. No signs of distant metastases. 04/04/2022 High-resolution chest CT ([facility]) Previous linear scarlike opacity left upper lobe measuring 11 x 8 mm in December 2019 is now irregularly lobulated and measures 1.5 x 1.3 cm and is suspicious. PET scan or biopsy recommended. 06/08/2021 Diagnostic right mammogram and right breast ultrasound ([facility]) 2.2 cm complex fluid collection in the lumpectomy bed at the 5 o'clock position. Could be a postoperative seroma, old hematoma, or abscess. No finding to suggest malignancy in the right breast. 05/31/2021 Bone density DEXA ([facility]) Increasing osteopenia in the hips. Significant loss of bone in the lumbar spine, while remaining within normal limits LABORATORY DATA: Hemoglobin (g/dL) Date Value 12/14/2024 8.4 08/10/2021 11.5 Hematocrit (%) Date Value 12/14/2024 27.5 08/10/2021 35.0 WBC (k/uL) Date Value 12/14/2024 6.04 08/10/2021 5.13 Platelet Count (k/uL) Date Value 12/14/2024 196 08/10/2021 133 ASSESSMENT/PLAN: 1. 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 Status post lingular sparing left upper lobectomy and mediastinal lymph nodedissection 06/13/2022. Pathology revealed the primary tumor was 2 cm, 0 of 15 lymph nodes involved,margins negative. The primary tumor was positive for ALK mutation, plus elevated PD-L1 expression. Postop it was elected not to treat with adjuvant chemotherapy or adjuvant radiation therapy, and routine follow-up recommended. Since initial diagnosis and surgery the patient has had no documented recurrence. Restaging chest CT 05/19/2024 revealed small left supraclavicular lymph nodes. Although subcentimeter in size, these were slightly increased in size when compared to 11/19/2023. The possibility of this representing metastatic adenopathy cannot be excluded given the change in size. Repeat chest CT 03/2025 stable. At this time, we plan to restage again at 6 months (January 2025) with a PET scan at her request. Discussed new anemia diagnosis with Dr. Adan who did not feel a need to move up her PET scan. 2. 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 The patient presented with right breast pain and was found to have an abnormality in the retroareolar area of the right breast. A right breast breast biopsy obtained 05/25/2020 revealed a low-grade ER/HI positive DCIS. The patient also underwent a left breast biopsy on 06/06/2020 which was benign. Genetic testing revealed no evidence of deleterious mutations. 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 Adjuvant hormonal therapy with anastrozole started July 2020. The patient received adjuvant radiation therapy to the right breast 08/08/2020 through 08/19/2020 (3000 cGy in 5 fractions). Due to adverse effects (jointpain, restless legs) the patient discontinued anastrozole August 2024. Currently no evidence of disease. At this time will continue routine observation. Next surveillance mammogram due March 2025. 3. Heart disease - ICD9: 429.9, ICD10: I51.9 History of coronary artery disease and aortic valve stenosis. Status post CABG, aortic valve replacement and cardiac ablation November 2019. History of paroxysmal atrial fibrillation - resolved after herinitial cardiac procedure in November 2019. Apparently the patient developed recurrent atrial fibrillation in August 2020 and underwent an additional ablation 01/04/2021. Currently on Eliquis and aspirin. Co ntinue management per PCP/cardiology. 4. 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 Currently on Eliquis and aspirin. Continue management per PCP/neurology. 5. PMR Diagnosed approximately 2018. Currently not on treatment. Continue management per rheumatology. 6. Age-related osteoporosis - ICD9: 733.01, ICD10: M81.0 The patient has a long history of osteopenia. Most recent bone density DEXA May 2023 revealed bone loss in the left hip consistent with osteoporosis. Reviewed the need for Calcium and Vitamin D supplements and weight bearing exercise as tolerated. The patient will discuss with her PCP options for additional therapy including antiresorptive agents. 7. Normocytic anemia She has a worsening anemia, initially discovered in May 2024. Iron studies at that time were borderline low. She has been taking oral iron daily since that time, with her hemoglobin dropping from 11.3 in May 2024 to 8.4. She had a negative EGD and colonoscopy without evidence for a bleeding. Anemia work up is negative thus far. Today we discussed her results and I reviewed her case with Dr. Adan as well. We will proceed with a trial of IV iron. If this does not successfully improve her anemia, then we will consider bone marrow biopsy to rule out MDS. I have also checked an EPO level and if low, she may benefit from erythropoietin therapy given her underlying chronic kidney disease. She will return in about 6 weeks to repeat labs after she has completed her IV Iron trial. She was advised to discontinue her oral iron as well. Katie Cook PA-C I spent a total of 30 minutes on the date of the service which included preparing to see the patient, [id number] patient care, completing clinical documentation, performing a medically appropriate examination, counseling and educating the patient/family/caregiver, ordering medications, tests, or p rocedures, independently interpreting results (not separately reported), communicating results to the patient/family/caregiver, and care coordination (not separately reported). [facility] NoteHNO ID: [id number] Author: KAITE COOK PA-C Service: ? Author Type: Physician Semiconductor Processing Technician Type: Progress Notes Filed: 12/14/2024 10:46 Note Text: PATIENT NAME: Jemima Bradford DATE: 12/14/2024 PRIMARY CARE PHYSICIAN: Jasmyne Casillas, CURTIS ([facility]) OTHER PHYSICIANS: Dr. Keene, Dr. Ferrari ([facility] Cardiology, [place]), Dr. Pizarro, Dr. Arguelles, Dr. Shaniqua Ellsworth (Pulmonary, [place]), Dr. Mitzi Amaral, Dr. Tovar ([facility] orthopedic surgery) Portions of this encounter note have been copied from the note from 12/07/2024 and has been updated where appropriate, and reflect my current medical decision making from today. 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 INTERIM HISTORY: Patient is an 84-year-old female with a history of DCIS, lung cancer, and mild renal insufficiency, currently managed with oral iron supplementation, presenting for evaluation of worsening anemia. In May 2024, labs revealed iron deficiency with a hemoglobin level of 11.4 g/dL. She was started on oral iron supplementation. By August, her hemoglobin decreased to 10.2 g/dL, and further declined to the 8 g/dL range during a cardiology visit in October 2024. A comprehensive GI workup, including endoscopy and colonoscopy, showed no significant findings to explain the anemia. Recent labs showed normal B12 and folate levels, and no evidence of hemolysis. M protein was negative. Iron studies were essentially normal, but ferritin was on the low end of normal. EPO level is pending. Patient reports no significant changes in how she feels and denies any new symptoms. She is scheduled to see her shake cutter this week. MEDICATIONS: atorvastatin (LIPITOR) 80 mg tablet Take 80 mg by mouth. ferrous sulfate 325 mg (65 mg iron) tablet Take 325 mg by mouth. gabapentin (NEURONTIN) 300 mg capsule Take 300 mg by mouth. bumetanide (BUMEX) 1 mg tablet Take 1 mg by mouth two times a day. montelukast (SINGULAIR) 10 mg tablet Take 10 mg by mouth once daily. metoprolol tartrate, short acting, (LOPRESSOR) 25 mg tablet Take 1/2 tablet by mouth twice daily. levothyroxine (SYNTHROID) 50 mcg tablet levothyroxine 50 mcg tablet TAKE 1 TABLET BY MOUTH DAILY FOR HYPOTHYROIDISM apixaban (ELIQUIS) 5 mg tab(s) Eliquis 5 mg tablet Take 1 tablet twice a day by oral route for 90 days. calcium carbonate (CALTRATE) 600 mg calcium (1,500 mg) tab 600 mg. melatonin 10 mg tab 10 mg. spironolactone (ALDACTONE) 25 mg tablet Take 25 mg by mouth once daily. esomeprazole (NEXIUM) 40 mg capsule Take 40 mg by mouth as directed. Twice per week nitroglycerin sublingual (NITROQUICK) 0.4 mg SL tablet Dissolve 1 tablet under the tongue every 5 minutes as needed. COQ10, UBIQUINOL, ORAL Take 1 tablet by mouth once daily. Chromium Picolinate 500 mcg cap Take 1 tablet by mouth once daily. MAGNESIUM ORAL Take 1 tablet by mouth once daily. 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 Aortic valve stenosis mild Arthritis Asthma controlled no inhalers Coronary artery disease Hypercholesteremia Hypertension Polymyalgia rheumatica (HCC) PAST SURGICAL HISTORY: PAST SURGICAL HISTORY Procedure Laterality Date APPENDECTOMY 07/01/1978 ARTHROSCOPY KNEE MEDIAL RELEASE 2002,2010 rt AND Lt knee ARTHRP KNE CONDYLEANDPLATU MEDIALANDLAT COMPARTMENTS Right 07/01/2013 right x2 BREAST LUMPECTOMY HX BUNIONECTOMY, LAPIDUS-TYPE 07/01/2010 rt toe CHOLECYSTECTOMY 07/01/2005 COLONOSCOPY AND POLYPECTOMY 2004, 2005, 2009 x 3 CYSTO LASER TX URETERAL CALC 07/01/2009 stent placement CYSTO W/RETROGRADE x 6 DANDC (INCOMPLETE AB), ANY TRIMESTER 07/01/1974 EXCISE EXCESS SKIN TISSUE,ABDOMEN 07/01/1994 Abdominalplasty KNEE SURGERY HX Left 07/27/2024 LITHOTRIPSY PROC UNILATERAL 07/01/1985 rt kidney PAST SURGICAL HISTORY OF 12/03/2019 CABG 1v, cryomaze and AVr REMV CATARACT EXTRACAP,INSERT LENS STENT PLACEMENT 07/01/2003 LAD TONSILLECTOMY HX as child REVIEW OF SYSTEMS: GENERAL: No weight loss, malaise or fevers. +weakness and fatigue HEENT: Negative for frequent or significant headaches, No changes in hearing or vision, no nose bleeds or other nasal problems RESPIRATORY: Negative for cough, wheezing + ROGEL CARDIOVASCULAR: Negative for chest pain, leg swelling or palpitations. GI: Negative for abdominal discomfort, blood in stools or black stools or change in bowel habits : No history of dysuria, frequency or incontinence MUSCULOSKELETAL: Negative for: joint pain or swelling, back pain and muscle pain SKIN: Negative for lesions, rash, and itching. HEMATOLOGY/LYMPHOLOGY: Negative for prolonged bleeding, bruising easily o (more content not included)...[facility]06-09-2025 NoteHNO ID: [id number] Author: ARNALDO ALDRICH MA Service: ? Author Type: Credit Or Loans Officer Type: Progress Notes Filed: 12/07/2024 16:14 Note Text: Patient states that she is short of breath x2 weeks (since CHF acting up). Patient also states that she was sent here due to hemoglobin being low, so she would like to know levels also and if she needs blood transfusion. Arnaldo Aldrich [facility]06-09-2025 History of Present illness Narrative* Arnaldo Aldrich MA - 12/07/2024 2:07 PM EDT Patient states that she is short of breath x2 weeks (since CHF acting up). Patient also states thatshe was sent here due to hemoglobin being low, so she would like to know levels also and if she needs blood transfusion. Arnaldo Aldrich MA * Katie Cook PA-C - 12/07/2024 2:00 PM EDT PATIENT NAME: Jemima Bradford DATE: 12/07/2024 PRIMARY CARE PHYSICIAN: Jasmyne Casillas CNP ([facility]) OTHER PHYSICIANS: Dr. Keene, Dr. Ferrari ([facility] Cardiology, [place]), Dr. Pizarro, Dr. Arguelles, Dr. Shaniqua Ellsworth (Pulmonary, [place]), Dr. Mitzi Amaral, Dr. Tovar ([facility] orthopedicsurgery) Portions of this encounter note have been copied from the note from 09/21/2024 and has been updated where appropriate, and reflect my current medical decision making from today. 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 INTERIM HISTORY: Henrietta returns at the request of her PCP for worsening anemia. The patient reports that on June 10, 2024 her orthopedic surgeon noticed she was anemic with a pre-op hemoglobin of 11.3. He started her on OTC iron three times a day. She then saw Dr. Taylor who reportedly ordered iron studies, on 06/15/24 which showed a low iron saturation at 8.6%, ferritin of 20.3 and TIBC of 441. Her iron was decreased to once a day as well and she remains on that and is tolerating it well. Her anemia continued to worsen and on 10/26/24, Dr. Taylor did an EGD and colonoscopy. 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 Pathology with mild chronic gastritis and negativefor helicobacter pylori and no evidence of celiac disease. The colonoscopy revealed three 3-5 mm sessile polyps in the transverse colon, five 3-5 mm sessile polyps in the descending colon and small internal hemorrhoids in the rectum. 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 She then had a negative stool for occult blood on 11/20/24. Her recent hemoglobin at her PCP office was 8.1 on 11/30/2024 with normal MCV of 85.2. Reticulocyte count of 2.8%, B12 697, folate 11.2, ferritin 46, iron saturation was improved to 49%. Today she reports that she has worsening shortness of breath with exertion and fatigue. Denies any dizziness, but has occasional lightheadedness. She was having some swelling in her legs, but this has improved. She denies any bleeding, but she is on Eliquis for her history of atrial fibrillation. She does report having had restless legs for 4-5 months. Her PCP gave her gabapentin for that which has helped. She is currently on On nexium 40 mg daily and has not started the Pepcid 40 mg daily recommended byher PCP. She denies any pain, cough, fever, chills, night sweats or weight loss. She denies any early satiety, except for last night. No diarrhea, constipation, nausea, vomiting, hematuria or other bleeding to report. She denies any chest pain. MEDICATIONS: oxyCODONE IR (ROXICODONE) 5 mg immediate release tablet TAKE ONE TABLET BY MOUTH EVERY 6 HOURS NEEDED FOR MORE SEVERE PAIN bumetanide (BUMEX) 1 mg tablet Take 1 mg by mouth two times a day. montelukast (SINGULAIR) 10 mg tablet Take 10 mg by mouth once daily. metoprolol tartrate, short acting, (LOPRESSOR) 25 mg tablet Take 1/2 tablet by mouth twice daily. levothyroxine (SYNTHROID) 50 mcg tablet levothyroxine 50 mcg tablet TAKE 1 TABLET BY MOUTH DAILY FOR HYPOTHYROIDISM apixaban (ELIQUIS) 5 mg tab(s) Eliquis 5 mg tablet Take 1 tablet twice a day by oral route for 90 days. calcium carbonate (CALTRATE) 600 mg calcium (1,500 mg) tab 600 mg. melatonin 10 mg tab 10 mg. rosuvastatin (CRESTOR) 40 mg tablet Take 40 mg by mouth once daily. spironolactone (ALDACTONE) 25 mg tablet Take 25 mg by mouth once daily. esomeprazole (NEXIUM) 40 mg capsule Take 40 mg by mouth as directed. Twice per week nitroglycerin sublingual (NITROQUICK) 0.4 mg SL tablet Dissolve 1 tablet under the tongue every 5 minutes as needed. COQ10, UBIQUINOL, ORAL Take 1 tablet by mouth once daily. Chromium Picolinate 500 mcg cap Take 1 tablet by mouth once daily. MAGNESIUM ORAL Take 1 tablet by mouth once daily. 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 Aortic valve stenosis mild Arthritis Asthma controlled no inhalers Coronary artery disease Hypercholesteremia Hypertension Polymyalgia rheumatica (HCC) PAST SURGICAL HISTORY: PAST SURGICAL HISTORY Procedure Laterality Date APPENDECTOMY 07/01/1978 ARTHROSCOPY KNEE MEDIAL RELEASE 2002,2010 rt & Lt knee ARTHRP KNE CONDYLE&PLATU MEDIAL&LAT COMPARTMENTS Right 07/01/2013 right x2 BREAST LUMPECTOMY HX BUNIONECTOMY, LAPIDUS-TYPE 07/01/2010 rt toe CHOLECYSTECTOMY 07/01/2005 COLONOSCOPY & POLYPECTOMY 2004, 2005, 2009 x 3 CYSTO LASER TX URETERAL CALC 07/01/2009 stent placement CYSTO W/RETROGRADE x 6 D&C (INCOMPLETE AB), ANY TRIMESTER 07/01/1974 EXCISE EXCESS SKIN TISSUE,ABDOMEN 07/01/1994 Abdominalplasty KNEE SURGERY HX Left 07/27/2024 LITHOTRIPSY PROC UNILATERAL 07/01/1985 rt kidney PAST SURGICAL HISTORY OF 12/03/2019 CABG 1v, cryomaze and AVr REMV CATARACT EXTRACAP,INSERT LENS STENT PLACEMENT 07/01/2003 LAD TONSILLECTOMY HX as child REVIEW OF SYSTEMS: GENERAL: No weight loss, malaise or fevers. +weakness and fatigue HEENT: Negative for frequent or significant headaches, No changes in hearing or vision, no nose bleeds or other nasal problems RESPIRATORY: Negative for cough, wheezing + ROGEL CARDIOVASCULAR: Negative for chest pain, leg swelling or palpitations. GI: Negative for abdominal discomfort, blood in stools or black stools or change in bowel habits : No history of dysuria, frequency or incontinence MUSCULOSKELETAL: Negative for: joint pain or swelling, back pain and muscle pain SKIN: Negative for lesions, rash, and itching. HEMATOLOGY/LYMPHOLOGY: Negative for prolonged bleeding, bruising easily or swollen nodes. NEURO: No history of headaches, syncope, paralysis, seizures or tremors PHYSICAL EXAM: Vitals: BP 111/62 Pulse 78 Temp 36.2 C (97.2 F) (Temporal) Resp 18 Wt 78.6 kg (173 lb 3.2 oz) SpO2 97% BMI 28.82 kg/m General: Alert and oriented, no distress, pleasant and cooperative. Heart: Regular, normal S1 and S2, no rubs, or gallops +murmur Lungs: Clear to auscultation bilaterally Abdomen: Benign, no HSM Extremities: Feet/ankles with minimal edema Lymph: no cervical, SC or axillary nodes palpable on exam PATHOLOGY: 06/13/2022 Left upper lobectomy and regional lymph node dissection A. Lymph node, level 9, excision: - Negative for tumor (0/1). B. Lymph node, 12 central, excision: - Negative for tumor (0/1). C. Lymph node, 11 anterior, excision: - Negative for tumor (0/1). D. Lymph node, 11 posterior, excision: - Negative for tumor (0/1). E. Lymph node, another 11 posterior, excision: - Negative for tumor (0/1). F. Lymph node, 10, excision: - Negative for tumor (0/1). G. Lymph node, 5, excision: - Negative for tumor (0/1). H. Lymph node, 7, excision: - Negative for tumor (0/1). I. Lung, left upper lobe, lingula-sparing left upper lobectomy: - Adenocarcinoma (2 cm), micropapillary predominant (70%), with additional papillary (20%), and acinar (10%) patterns (See synoptic template). - Seven hilar/peribronchial lymph nodes, negative for tumor (0/7). - Margins negative. ALK (D5F3) IMMUNOHISTOCHEMISTRY ASSAY Results: Positive Immunohistochemistry for PD-L1 expression Tumor Cells Positive: 70% ROS1 Rearrangement 0% RET Rearrangement 0% BRAF - No variant detected [Reference Sequence: ([id number])]. EGFR - No variant detected [Reference Sequence: ([id number])]. HER2 (ERBB2) - No variant detected [Reference Sequence: ([id number])]. KRAS - No variant detected [Reference Sequence: ([id number])]. MET - No variant detected [Reference Sequence: ([id number])]. 04/25/2022 CT directed biopsy left upper lung mass ([facility]) Adenocarcinoma consistent with lung primary 06/21/2020 Right breast lumpectomy ([facility]) Ductal carcinoma in situ, low nuclear grade, cribriform and solid types, 1.3 cm in greatest dimension. Posterior margin is within 1 mm from DCIS. ER 99%, HI 99% 06/06/2020 Left breast biopsy ([facility]) Columnar cell change/hyperplasia. Usual ductal hyperplasia. 05/25/2020 Right breast biopsy ([facility]) Ductal carcinoma in situ, nuclear grade 1. ER positive (99%, HI positive (99%) RADIOLOGY/OTHER STUDIES: 08/10/2024 CT chest IMPRESSION: 1. No interval change since 05/19/24. 2. Subcentimeter nodular opacities and groundglass opacities, stable. 2. Subcentimeter thoracic lymph nodes, stable. 05/19/2024 CT chest IMPRESSION: 1. Small left supraclavicular lymph nodes. Although subcentimeter in size, these are slightly increased in size when compared to 11/19/2023. The possibility of this representing metastatic adenopathy cannot be excluded given the change in size. Would advise further evaluation with either a PET/CT at this time or a short-term follow-up chest CT with contrast in 3 months. 2. Stable subcentimeter pulmonary nodules. 04/28/2024 Bilateral diagnostic mammogram ([facility]) Benign, no evidence of malignancy. Normal interval follow-up at 12 months. 11/19/2023 CT chest IMPRESSION: 1. Surgical changes compatible with left upper lobectomy with stable appearance when compared to the prior exam. No significant thoracic adenopathy. Stable subcentimeter solid nodule in groundglass nodule in the right upper lobe of the lungs. Would advise continued imaging surveillance. 06/04/2023 Bone density DEXA 1. Bone mineral density by WHO criteria: Osteoporosis. Fracture risk high. WHO 10-year fracture risk assessment described above. 2. When compared with the most recent study 05/31/2021, there has been a 7.3% increase in bone mineral density of the lumbar spine, and a 3.1% decrease in bone mineral density at the left hip. 05/21/2023 CT chest IMPRESSION: 1. Postoperative changes involving left hemithorax, stable in appearance from prior examination of 01/10/2023. 2. Subcentimeter right upper lobe nodules, unchanged. 3. No substantial intrathoracic adenopathy is appreciated. 3. Newly apparent subacute/healing fractures involving the right 5th through 7th ribs are appreciated. 04/30/2023 Bilateral diagnostic mammogram ([facility]) Benign, no evidence of malignancy. Normal interval follow-up at 12 months. 01/10/2023 CT chest IMPRESSION: 1. Postoperative changes involving left hemithorax, as above. Improving loculated left apical pleural effusion and adjacent left perihilar atelectasis, as above. Patchy left upper lung zone groundglass opacities are identified on today's examination. 2. Subcentimeter right upper lobe nodules, larger measuring 7 mm, stable. 3. No substantial intrathoracic adenopathy is appreciated. 07/12/2022 CT chest IMPRESSION: 1. Since 06/19/2022, removal of left anterior pleural catheter and left basilar chest tubes. Increase in size of anterior pleural effusion within the lobectomy cavity and left basilar small pleural effusion. Resolution of previously seen pneumothorax component. 2. Stable regions of atelectasis/scarring involving the left lung and anterior right middle lobe. No new airspace consolidation. 3. Unchanged indeterminate 0.7 cm right upper lobe pulmonary nodule. Continued attention on subsequent studies is suggested. 4. No progressive lymphadenopathy. 05/02/2022 Brain MRI ([facility]) Brain MRI within limits of normal. No signs of intracranial mass or abnormal enhancement. 04/11/2022 PET scan ([facility]) Nodular opacity in the left upper lobe demonstrates moderate uptake. No signs of distant metastases. 04/04/2022 High-resolution chest CT ([facility]) Previous linear scarlike opacity left upper lobe measuring 11 x 8 mm in December 2019 is now irregularly lobulated and measures 1.5 x 1.3 cm and is suspicious. PET scan or biopsy recommended. 06/08/2021 Diagnostic right mammogram and right breast ultrasound ([facility]) 2.2 cm complex fluid collection in the lumpectomy bed at the 5 o'clock position. Could be a postoperative seroma, old hematoma, or abscess. No finding to suggest malignancy in the right breast. 05/31/2021 Bone density DEXA ([facility]) Increasing osteopenia in the hips. Significant loss of bone in the lumbar spine, while remaining within normal limits LABORATORY DATA: Hemoglobin (g/dL) Date Value 12/07/2024 8.4 08/10/2021 11.5 Hematocrit (%) Date Value 12/07/2024 27.6 08/10/2021 35.0 WBC (k/uL) Date Value 12/07/2024 6.38 08/10/2021 5.13 Platelet Count (k/uL) Date Value 12/07/2024 212 08/10/2021 133 ASSESSMENT/PLAN: 1. 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 Status post lingular sparing left upper lobectomy and mediastinal lymph nodedissection 06/13/2022. Pathology revealed the primary tumor was 2 cm, 0 of 15 lymph nodes involved,margins negative. The primary tumor was positive for ALK mutation, plus elevated PD-L1 expression. Postop it was elected not to treat with adjuvant chemotherapy or adjuvant radiation therapy, and routine follow-up recommended. Since initial diagnosis and surgery the patient has had no documented recurrence. Restaging chest CT 05/19/2024 revealed small left supraclavicular lymph nodes. Although subcentimeter in size, these were slightly increased in size when compared to 11/19/2023. The possibility of this representing metastatic adenopathy cannot be excluded given the change in size. Repeat chest CT 03/2025 stable. At this time, we plan to restage again at 6 months (January 2025) with a PET scan at her request. However, if her anemia work up is negative, we may move the PET scan up sooner. 2. 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 The patient presented with right breast pain and was found to have an abnormality in the retroareolar area of the right breast. A right breast breast biopsy obtained 05/25/2020 revealed a low-grade ER/HI positive DCIS. The patient also underwent a left breast biopsy on 06/06/2020 which was benign. Genetic testing revealed no evidence of deleterious mutations. 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 Adjuvant hormonal therapy with anastrozole started July 2020. The patient received adjuvant radiation therapy to the right breast 08/08/2020 through 08/19/2020 (3000 cGy in 5 fractions). Due to adverse effects (jointpain, restless legs) the patient discontinued anastrozole August 2024. Currently no evidence of disease. At this time will continue routine observation. Next surveillance mammogram due March 2025. 3. Heart disease - ICD9: 429.9, ICD10: I51.9 History of coronary artery disease and aortic valve stenosis. Status post CABG, aortic valve replacement and cardiac ablation November 2019. History of paroxysmal atrial fibrillation - resolved after herinitial cardiac procedure in November 2019. Apparently the patient developed recurrent atrial fibrillation in August 2020 and underwent an additional ablation 01/04/2021. Currently on Eliquis and aspirin. Co ntinue management per PCP/cardiology. 4. 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 Currently on Eliquis and aspirin. Continue management per PCP/neurology. 5. PMR Diagnosed approximately 2018. Currently not on treatment. Continue management per rheumatology. 6. Age-related osteoporosis - ICD9: 733.01, ICD10: M81.0 The patient has a long history of osteopenia. Most recent bone density DEXA May 2023 revealed bone loss in the left hip consistent with osteoporosis. Reviewed the need for Calcium and Vitamin D supplements and weight bearing exercise as tolerated. The patient will discuss with her PCP options for additional therapy including antiresorptive agents. 7. Normocytic anemia She has a worsening anemia, initially discovered in May 2024. Iron studies at that time were borderline low. She has been taking oral iron daily since that time, with her hemoglobin dropping from 11.3 in May 2024 to 8.4 today. She had a negative EGD and colonoscopy without evidence for a bleeding. She is symptomatic and a transfusion was offered due to her underlying cardiac disease, however she has elected to wait until her hemoglobin drops below 8.0. At this time, I have initiated an anemia work up. If negative, I would consider repeating her PET scan and scheduling a possible bone marrow biopsy to rule out other causes of her anemia. Katie Cook PA-C I spent a total of 45 minutes on the date of the service which included preparing to see the patient, [id number] patient care, completing clinical documentation, obtaining and/or reviewing separately obtained history, performing a medically appropriate examination, counseling and educating the pat ient/family/caregiver, ordering medications, tests, or procedures, communicating with other HCPs (not separately reported), independently interpreting results (not separately reported), communicatingresults to the patient/family/caregiver, and care coordination (not separately reported). documented in this encounterK[facility]06-[facility]-2025 NoteHNO ID: [id number] Author: KATIE COOK PA-C Service: ? Author Type: Physician Semiconductor Processing Technician Type: Progress Notes Filed: 12/07/2024 16:14 Note Text: PATIENT NAME: Jemima Bradford DATE: 12/07/2024 PRIMARY CARE PHYSICIAN: Jasmyne Casillas CNP ([facility]) OTHER PHYSICIANS: Dr. Keene, Dr. Ferrari ([facility] Cardiology, [place]), Dr. Pizarro, Dr. Arguelles, Dr. Shaniqua Ellsworth (Pulmonary, [place]), Dr. Mitzi Amaral, Dr. Tovar ([facility] orthopedic surgery) Portions of this encounter note have been copied from the note from 09/21/2024 and has been updated where appropriate, and reflect my current medical decision making from today. 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 INTERIM HISTORY: Henrietta returns at the request of her PCP for worsening anemia. The patient reports that on June 10, 2024 her orthopedic surgeon noticed she was anemic with a pre-op hemoglobin of 11.3. He started her on OTC iron three times a day. She then saw Dr. Taylor who reportedly ordered iron studies, on 06/15/24 which showed a low iron saturation at 8.6%, ferritin of 20.3 and TIBC of 441. Her iron was decreased to once a day as well and she remains on that and is tolerating it well. Her anemia continued to worsen and on 10/26/24, Dr. Taylor did an EGD and colonoscopy. 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 Pathology with mild chronic gastritis and negative for helicobacter pylori and no evidence of celiac disease. The colonoscopy revealed three 3-5 mm sessile polyps in the transverse colon, five 3-5 mm sessile polyps in the descending colon and small internal hemorrhoids in the rectum. 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 She then had a negative stool for occult blood on 11/20/24. Her recent hemoglobin at her PCP office was 8.1 on 11/30/2024 with normal MCV of 85.2. Reticulocyte count of 2.8%, B12 697, folate 11.2, ferritin 46, iron saturation was improved to 49%. Today she reports that she has worsening shortness of breath with exertion and fatigue. Denies any dizziness, but has occasional lightheadedness. She was having some swelling in her legs, but this has improved. She denies any bleeding, but she is on Eliquis for her history of atrial fibrillation. She does report having had restless legs for 4-5 months. Her PCP gave her gabapentin for that which has helped. She is currently on On nexium 40 mg daily and has not started the Pepcid 40 mg daily recommended by her PCP. She denies any pain, cough, fever, chills, night sweats or weight loss. She denies any early satiety, except for last night. No diarrhea, constipation, nausea, vomiting, hematuria or other bleeding to report. She denies any chest pain. MEDICATIONS: oxyCODONE IR (ROXICODONE) 5 mg immediate release tablet TAKE ONE TABLET BY MOUTH EVERY 6 HOURS NEEDED FOR MORE SEVERE PAIN bumetanide (BUMEX) 1 mg tablet Take 1 mg by mouth two times a day. montelukast (SINGULAIR) 10 mg tablet Take 10 mg by mouth once daily. metoprolol tartrate, short acting, (LOPRESSOR) 25 mg tablet Take 1/2 tablet by mouth twice daily. levothyroxine (SYNTHROID) 50 mcg tablet levothyroxine 50 mcg tablet TAKE 1 TABLET BY MOUTH DAILY FOR HYPOTHYROIDISM apixaban (ELIQUIS) 5 mg tab(s) Eliquis 5 mg tablet Take 1 tablet twice a day by oral route for 90 days. calcium carbonate (CALTRATE) 600 mg calcium (1,500 mg) tab 600 mg. melatonin 10 mg tab 10 mg. rosuvastatin (CRESTOR) 40 mg tablet Take 40 mg by mouth once daily. spironolactone (ALDACTONE) 25 mg tablet Take 25 mg by mouth once daily. esomeprazole (NEXIUM) 40 mg capsule Take 40 mg by mouth as directed. Twice per week nitroglycerin sublingual (NITROQUICK) 0.4 mg SL tablet Dissolve 1 tablet under the tongue every 5 minutes as needed. COQ10, UBIQUINOL, ORAL Take 1 tablet by mouth once daily. Chromium Picolinate 500 mcg cap Take 1 tablet by mouth once daily. MAGNESIUM ORAL Take 1 tablet by mouth once daily. 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 Aortic valve stenosis mild Arthritis Asthma controlled no inhalers Coronary artery disease Hypercholesteremia Hypertension Polymyalgia rheumatica (HCC) PAST SURGICAL HISTORY: PAST SURGICAL HISTORY Procedure Laterality Date APPENDECTOMY 07/01/1978 ARTHROSCOPY KNEE MEDIAL RELEASE 2002,2010 rt AND Lt knee ARTHRP KNE CONDYLEANDPLATU MEDIALANDLAT COMPARTMENTS Right 07/01/2013 rig (more content not included)...[facility]06-03-2025 Note* Addendum Note - Katie Cook PA-C - 12/01/2024 11:07 AM EDTAddended by: KATIE COOK on: 12/01/2024 11:07 AM Modules accepted: Orders [facility]06-03-2025 Miscellaneous Notes* Addendum Note - Katie Cook PA-C - 12/01/2024 11:07 AM EDTAddended by: KATIE COOK on: 12/01/2024 11:07 AM Modules accepted: Orders * Telephone Encounter - Gia Clayton RN - 12/01/2024 10:23 AM EDT MM: FYI * Telephone Encounter - Morenita Siddiqui - 12/01/2024 10:21 AM EDT Patient is scheduled with Katie BLOOM on 12/07/24 at 2:00 PM Morenita B PSS * Telephone Encounter - Gia Clayton RN - 11/30/2024 3:49 PM EDT PSS: Please call pt to schedule with BRM/MARLYS to discuss. Gia Clayton RN * Telephone Encounter - Gia Clayton RN - 11/30/2024 1:13 PM EDT Jasmyne Casillas NP calling for pt to be seen for low Hgb: 8.1 today. Pt had recent scopes (EGD/Colonoscopy resulted Gaviria's esophagus/multiple polyps upper and lower without active bleeding ). Pt takes Nexium and Pepcid added today. Occult blood stools negative. Pt takes oral iron supplements daily. Recent iron labs normal. Pt has CKD and sees nephrology. Recent renal function unchanged from previous. 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 Records rec'd; Toshia scanning for review BRM: Please advise Gia Clayton RN documented in this [facility]06-[facility]-2025 Telephone encounter Note * Telephone Encounter - Gia Clayton RN - 12/01/2024 10:23 AM EDT MM: FYI [facility]06-03-[facility] Telephone encounter Note* Telephone Encounter - Morenita Siddiqui - 12/01/2024 10:21 AM EDT Patient is scheduled with Katie BLOOM on 12/07/24 at 2:00 PM Morenita Brooks PSS [facility]06-02-2025 Telephone encounter Note* Telephone Encounter - Gia Clayton RN - 11/30/2024 3:49 PM EDT PSS: Please call pt to schedule with BRM/MARLYS to discuss. Gia Clayton RN [facility]06-02-2025 Telephone encounter Note* Telephone Encounter - Gia Clayton RN - 11/30/2024 1:13 PM EDT Jasmyne Casillas NP calling for pt to be seen for low Hgb: 8.1 today. Pt had recent scopes (EGD/Colonoscopy resulted Gaviria's esophagus/multiple polyps upper and lower without active bleeding ). Pt takes Nexium and Pepcid added today. Occult blood stools negative. Pt takes oral iron supplements daily. Recent iron labs normal. Pt has CKD and sees nephrology. Recent renal function unchanged from previous. 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 Records rec'd; Toshia scanning for review BRM: Please advise Gia Clayton RN [facility] HPI: Jemima Bradford is a 84 y.o. year old with past medical history of Aortic valve replacement with 23 mm Avalus pericardial valve, Breast CA s/p XRT, Coronary artery bypass grafting x1, MARCUS to LAD + Extended left atrial CryoMaze procedure and exclusion of left atrial appendage using 45 mm AtriClip device, Aortic root enlargement with pericardial patch using Nicks technique with h/o of atrial fibrillation/ flutter with RVR who underwent left atrial flutter ablation. She has been in SR since. She was recently Dx with lung CA and BX proven for adeno CA. She is being planned for lobectomy at [facility] ([place] AV replacement+ MAZE, s/p Atypical LA flutter [...] cough, shortness of breath and wheezing. ECHO /) 10/15/23 Patient here for 6 mo follow up PAF, CAD, and hypertension. C/o SOB, LE edema, and weight gain. C/o wheezing. Denies chest pain and bleeding on Eliquis. she is on Bumex 1 mg which has been replaced for Lasix. she is also on Aldactone. She states that she is not being diuresing as well and her last creatinine was 1.34 that was done at [facility] on 09/18/2023 Which is an improvement from 1.4 that was done in May 2023. EKG 06/26/23 SR. 04/01/23 Patient for follow-up of her echocardiogram aortic valve replacement is well-seated with no concerns EF 55% shows mildly [...] ischemia. she is supposed to follow-up with [facility] for her oncology follow-up. he tells me [...] 10, 11 and 12; Cryoanalgesia procedure, interspaces 5 - 7 on 06/13/22 for a Left upper lobe adenocarcinoma at [facility] ([place]). this was complicated by left apical hydropneumothorax [...] 94 to 97%. he was evaluated by high school tutor for the above and they had changed her medication from [...] 2. Prior surgical cryo-PVI+ Mitral isthmus line ablati (more content not included)...[facility]05-[facility] History of Present illness Narrative* Sunitha Durand MD - 11/05/2024 10:30 AM EDT [...] Hands Examined Digits,nails: Examined Patient wearing nail tanzanian, Denies dark streaks under finger nails Lymphatics: [...] Left Flank, Left Lower Back (2), Left [place], Neck - Anterior, Neck - Posterior (4) [place] and brown stuck on verrucous scaly papule [...] limited to risks of scarring, darker or drywall installer pigmentary changes, recurrence, incomplete removal and infection. [...] Left Flank, Left Lower Back (2), Left [place], Neck - Anterior, Neck - Posterior (4) Next Visit: 1 year skin exam documented in this encounterMer[facility] [id number] [place] [address] Colonoscopy Procedure Report Signed Patient: Jemima Bradford MR#: [id number] : 1940 Acct:[id number] Age/Sex: 84 / F Adm Date: 5 Loc: Room: Type: [facility] Attending Dr: Domonique Taylor DO Copies to: DO Jasmyne Peace, SWING FRAME GRINDER OPERATOR, LAMBSKIN TRIMMER~ Colonoscopy Date/Provider 10/26/2024 Domonique Taylor DO Narrative Procedure: Colonoscopy with standard forceps polypectomy Indication: Iron deficiency anemia, IBS-C. Last colonoscopy in 2019. Pre-operative diagnosis: Iron deficiency anemia, IBS-C. Post-operative diagnosis: 8 polyps removed, severe melanosis coli throughout thecolon, internal hemorrhoids, otherwise normal colon Sedation: propofol per anesthesia dept O2 oximetry, hemodynamic monitoring was performed pre, during, and post procedure. Patient was identified, H&P completed, patient was given full explanation of the procedure as well as associatedrisks and written consent wasobtained prior to procedure. Patient expressed complete understanding of the procedure as well as alternatives to the procedure and to anesthesia and agreed to proceed with the procedure as indicated. Patient was immediately reassessed prior to IV sedation. Under IV sedation, patient was placed in the left lateral decubitus position. Digital rectal exam was performed and normal. Colonoscope was inserted and passed proximally to the cecum, which was identified by the ileocecal valve, appendiceal orifice and cecal floor. Colonoscope was slowly withdrawnwith the findings as below. [place] bowel prep score was adequate. Findings: Cecum: Normal. Ascending colon: Normal. Hepatic flexure: Normal. Transverse colon: Three 3-5 mm sessile polyps removed with standard forceps and sent to pathology. Splenic flexure: Normal. Descending colon: Five 3-5 mm sessile polyps removed with standard forceps and sent to pathology. Sigmoid colon: Normal. Rectum: Normal. Retroflexed views: Rectum did show small internal hemorrhoids.] There was severe melanosis coli throughout the entire examined colon. Biopsy taken: Yes Complications: None EBL: Minimal Recommendations: -Repeat colonoscopy pending bx results -Follow up pathology -Fiber rich diet and increased water intake -Continue bowel regimen -Follow up in the office in 4 months -Follow up with PCP Following a period of recovery, patient was seen and given full explanation of the procedure. Patient tolerated the procedure well and will be discharged in satisfactory, stable condition. Domonique Taylor DO Documented By: Domonique Taylor DO 10/26/24 0942 Signed By: 10/26/24 1030 [facility]04-28-2025 [facility] [address] [place] [address] EGD Procedure Note Signed Patient: Jemima Bradford MR#: [id number] : 1940 Acct:[id number] Age/Sex: 84 / F Adm Date: 5 Loc: Room: Type: [facility] Attending Dr: Domonique Taylor DO Copies to: DO Jasmyne Peace APRN, LAMBSKIN TRIMMER~ Esophagogastroduodenoscopy Date/Provider Date: 10/26/2024 Domonique Taylor DO Narrative Narrative: Procedure: EGD with biopsy Indication: GERD, dysphagia, history of Gaviria's, iron deficiency anemia Pre-operative diagnosis: GERD, dysphagia, history of Gaviria's, iron deficiency anemia Post-operative diagnosis: 1 tongue and island of salmon colored mucosa extending1 cm above GEJ consistent with known hx of Gaviria's esophagus s/p bx, small hiatal hernia, many gastric polyps-suspectfundic gland, gastritis, otherwise normal EGD s/p small bowel and gastric biopsy obtained. Sedation: propofol per anesthesia dept O2 oximetry, hemodynamic monitoring was performed pre, during, and post procedure. Patient was identified, H&P completed, patient was given full explanation of the procedure as well as associatedrisks and written consent wasobtained prior to procedure. Patient expressed complete understanding of the procedure as well as alternatives to the procedure and to anesthesia and agreed to proceed with the procedure as indicated. Patient was immediately reassessed prior to IV sedation. Following IV sedation, patient was placed in the left lateral decubitus position. Bite block was inserted. Endoscope was passed through the mouth, into the esophagus. Endoscope was advanced into the stomach through the pyloricchannel and into the 2nd portion of duodenum by direct visualization. Endoscopewas withdrawn into the stomach and retroflexion was performed. The endoscope was straightened,the stomach was decompressed. Endoscope was withdrawn into the esophagus then completely removed with the findings as below. Findings: DUODENUM: The bulb and descending portion appeared normal. Biopsies were obtained from the small bowel for histology and to rule out Celiac disease. STOMACH: Retroflexed views revealed a small hiatal hernia. There were many small sessile polyps in the gastric fundus, suspect benign fundic land polyps. There is moderate erythema in the gastric antrum. The stomach was otherwise normal. Biopsies were obtained from the gastric antrum and body for histology and to rule out H. Pylori. ESOPHAGUS: GE junction (upper margin of gastric folds) was at 36 cm from incisors. There was a single tongue an island of salmon-colored mucosa consistent with patient's known Gaviria's esophagus status post biopsy obtained with standard forceps and sent to pathology. The esophagus was otherwise normal Biopsy taken: Yes Complications: None EBL: Minimal Recommendations: -Follow up pathology -Resume normal diet -Continue PPI and lifestyle modifications for GERD -Follow up in the office in 4 months -repeat EGD pending biopsy results -Follow up with PCP Following a period of recovery, patient was seen and given full explanation of the procedure. Patient tolerated the procedure well and will be discharged in satisfactory, stable condition. Domonique Taylor DO Documented By: Domonique Taylor DO 10/26/24 0941 Signed By: 10/26/[address] [place], [place] 9344004-28-2025 [place] [address] Gastroenterology H&P Signed Patient: Jemima Bradford MR#: [id number] : 1940 Acct:[id number] Age/Sex: 84 / F Adm Date: 5 Loc: Room: Type: [facility] Attending Dr: Domonique Taylor DO Copies to: DO Jasmyne Peace, SWING FRAME GRINDER OPERATOR, LAMBSKIN TRIMMER~ Date of Service: 10/26/2024 HISTORY & PHYSICAL: Patient's history with special attention to the cardiovascular, pulmonary systems and the current problem was reviewed with the patient immediately prior to the procedure. Present medications and doses reviewed in the EMR. Allergies and pertinent laboratory tests were also re viewedat this time in the EMR. The physical examination, as below, was then performed. Indication, assessment and HPI: 84-year-old female who presents for EGD and colonoscopy for iron deficiency anemia, dysphagia, GERD, history of Gaviria's, IBS-C. Last colonoscopy in 2019. Last colon EGD in 2022 Family history of GI malignancy? No PHYSICAL EXAMINATION General appearance: cooperative, NAD Skin: No jaundice, no rash or lesions Head: NCAT Eyes: Anicteric Neck: Supple Lungs: Normal respiratory effort, no use of accessory muscles Abdomen: Soft, nondistended Neuro: No focal deficits, Ox3. REVIEW OF SYSTEMS Constitutional: Denies malaise, fevers Cardiovascular: Denies chest pain, palpitations Respiratory: Denies shortness of breath, wheezing Gastrointestinal: As per HPI Genitourinary: Denies dysuria, polyuria Musculoskeletal: Denies joint swelling, joint stiffness Neurological: Denies confusion, numbness, tingling Endocrine: Denies fatigue Written informed consent obtained from the patient. Risks (including but not limited to perforation, infection, bloating, bleeding, need for emergent surgeryand loss of life), benefits and alternatives explained and questions answered. The patient verbalized understanding. Based on history patient is an appropriate candidate for the procedure. Domonique Taylor DO Present medication and doses reviewed in the EMR Documented By: Domonique Taylor DO 10/26/24 0940 Signed By: 10/26/24 0958 [facility]04-22-2025 NoteUT Electrophysiology Consult Note Reason for Consultation: AV repalcement+ MAZE, s/p Atypical LA flutter ablation 10/20/24 [...] aortic valve was seen with good flow. ECHO 10/15/23 Patient here for 6 mo follow up PAF, CAD, and hypertension. C/o SOB, LE edema, and weight gain. C/o wheezing. Denies chest pain and bleeding on Eliquis. she is on Bumex 1 mg which has been replaced for Lasix. she is also on Aldactone. She states that she is not being diuresing as well and her last creatinine was 1.34 that was done at [facility] on 09/18/2023 Which is an improvement from 1.4 that was done in May 2023. EKG 06/26/23 SR. 04/01/23 Patient for follow-up of her echocardiogram aortic valve replacement is well-seated with no concerns EF 55% shows mildly [...] ischemia. she is supposed to follow-up with [facility] for her oncology follow-up. he tells me [...] 10, 11 and 12; Cryoanalgesia procedure, interspaces 5 - 7 on 06/13/22 for a Left upper lobe adenocarcinoma at [facility] this was complicated by left apical hydropneumothorax [...] 94 to 97%. he was evaluated by high school tutor for the above and they had changed her medication from Accolate to Singulair for cost reasons. EKG 09/18/22 SR Prior HPI: Jemima Bradford is a 84 y.o. year old with past medical history of Aortic valve replacement with 23 mm Avalus pericardial valve, Breast CA s/p XRT, Coronary artery bypass grafting x1, MARCUS to LAD + Extended left atrial CryoMaze procedure and exclusion of left atrial appendage using 45 mm AtriClip device, Aortic root enlargement with pericardial patch using Nicks technique with h/o of atrial fibrillation/ flutter with RVR who underwent left atrial flutter ablation. She has been in SR since. She was recently Dx with lung CA and BX proven for adeno CA. She is being planned for lobectomy at [facility] EK05/15/22 SR 02/27/22 SR 08/11/21 SR 05/30/21 [...] 0.55 and no evidence of stenosis. Moderate TR (more content not included)... [facility]04-02-2025 History and physical note Author Domonique Taylor [facility] Note Date/Time October 26, 2024 9:5 8am [facility] [address] [place] [address] Gastroenterology H&P Signed Patient: Jemima Bradford MR#: [id number] : 1940 Acct:[id number] Age/Sex: 84 / F Adm Date: 5 Loc: Room: Type: [facility] Attending Dr: Domonique Taylor DO Copies to: DO Jasmyne Peace APRN, LAMBSKIN TRIMMER~ Date of Service: 10/26/2024 HISTORY & PHYSICAL: Patient's history with special attention to the cardiovascular, pulmonary systems and the current problem was reviewed with the patient immediately prior to the procedure. Present medications and doses reviewed in the EMR. Allergies and pertinent laboratory tests were also reviewedat this time in the EMR. The physical examination, as below, was then performed. Indication, assessment and HPI: 84-year-old female who presents for EGD and colonoscopy for iron deficiency anemia, dysphagia, GERD, history of Gaviria's, IBS-C. Last colonoscopy in 2018. Last colon EGD in 2022 Family history of GI malignancy? No PHYSICAL EXAMINATION General appearance: cooperative, NAD Skin: No jaundice, no rash or lesions Head: NCAT Eyes: Anicteric Neck: Supple Lungs: Normal respiratory effort, no use of accessory muscles Abdomen: Soft, nondistended Neuro: No focal deficits, Ox3. REVIEW OF SYSTEMS Constitutional: Denies malaise, fevers Cardiovascular: Denies chest pain, palpitations Respiratory: Denies shortness of breath, wheezing Gastrointestinal: As per HPI Genitourinary: Denies dysuria, polyuria Musculoskeletal: Denies joint swelling, joint stiffness Neurological: Denies confusion, numbness, tingling Endocrine: Denies fatigue Written informed consent obtained from the patient. Risks (including but not limited to perforation, infection, bloating, bleeding, need for emergent surgeryand loss of life), benefits and alternatives explained and questions answered. The patient verbalized understanding. Based on history patient is an appropriate candidate for the procedure. Domonique Taylor DO Present medication and doses reviewed in the EMR Documented By: Domonique Taylor DO 10/26/24 0940 Signed By: <Electronically signed by Domonique Taylor DO> 10/26/24 0958 [facility] Work Phone: 1([phone]) 135-994103-22-2025 NoteHNO ID: [id number] Author: BRYANNA ADAN MD Service: ? Author Type: Physician Type: Progress Notes Filed: 09/21/2024 20:43 Note Text: PATIENT NAME: Jemima Bradford DATE: 09/21/2024 PRIMARY CARE PHYSICIAN: Jasmyne Casillas, CURTIS ([facility]) OTHER PHYSICIANS: Dr. Keene, Dr. Ferrari ([facility], [place]), Dr. Pizarro, Dr. Arguelles, Dr. Shaniqua Ellsworth (Pulmonary, [place]), Dr. Mitzi Amaral, Dr. Tovar ([facility] orthopedic surgery) Portions of this encounter note have been copied from the note from 08/17/2024 and has been updated where appropriate, and reflect my current medical decision making from today. 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 INTERIM HISTORY: Since the patient's last visit here she has remained on anastrozole for breast cancer risk reduction after the diagnosis of DCIS. Since her knee surgery July 2024 she has had significant restless legs . Apparently medications her PCP wishes to prescribe are not compatible with anastrozole. Subsequently the patient elected to discontinue anastrozole after completing slightly more than 4 years of treatment. Other than restless legs and joint pain she feels well. No changes in her breast. Mild shortness of breath is unchanged. No new pulmonary symptoms. MEDICATIONS: anastrozole (ARIMIDEX) 1 mg tablet Take 1 tablet by mouth once daily. oxyCODONE IR (ROXICODONE) 5 mg immediate release tablet TAKE ONE TABLET BY MOUTH EVERY 6 HOURS NEEDED FOR MORE SEVERE PAIN traMADol (ULTRAM) 50 mg tablet TAKE ONE TABLET BY MOUTH EVERY 6 HOURS NEEDED FOR MODERATE PAIN FOR 7 DAYS bumetanide (BUMEX) 1 mg tablet Take 1 mg by mouth two times a day. montelukast (SINGULAIR) 10 mg tablet Take 10 mg by mouth once daily. metoprolol tartrate, short acting, (LOPRESSOR) 25 mg tablet Take 1/2 tablet by mouth twice daily. levothyroxine (SYNTHROID) 50 mcg tablet levothyroxine 50 mcg tablet TAKE 1 TABLET BY MOUTH DAILY FOR HYPOTHYROIDISM apixaban (ELIQUIS) 5 mg tab(s) Eliquis 5 mg tablet Take 1 tablet twice a day by oral route for 90 days. calcium carbonate (CALTRATE) 600 mg calcium (1,500 mg) tab 600 mg. melatonin 10 mg tab 10 mg. rosuvastatin (CRESTOR) 40 mg tablet Take 40 mg by mouth once daily. spironolactone (ALDACTONE) 25 mg tablet Take 25 mg by mouth once daily. esomeprazole (NEXIUM) 40 mg capsule Take 40 mg by mouth as directed. Twice per week nitroglycerin sublingual (NITROQUICK) 0.4 mg SL tablet Dissolve 1 tablet under the tongue every 5 minutes as needed. COQ10, UBIQUINOL, ORAL Take 1 tablet by mouth once daily. Chromium Picolinate 500 mcg cap Take 1 tablet by mouth once daily. MAGNESIUM ORAL Take 1 tablet by mouth once daily. 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 Aortic valve stenosis mild Arthritis Asthma controlled no inhalers Coronary artery disease Hypercholesteremia Hypertension Polymyalgia rheumatica (HCC) PAST SURGICAL HISTORY: PAST SURGICAL HISTORY Procedure Laterality Date APPENDECTOMY 07/01/1978 ARTHROSCOPY KNEE MEDIAL RELEASE 2002,2010 rt AND Lt knee ARTHRP KNE CONDYLEANDPLATU MEDIALANDLAT COMPARTMENTS Right 07/01/2013 right x2 BREAST LUMPECTOMY HX BUNIONECTOMY, LAPIDUS-TYPE 07/01/2010 rt toe CHOLECYSTECTOMY 07/01/2005 COLONOSCOPY AND POLYPECTOMY 2004, 2005, 2009 x 3 CYSTO LASER TX URETERAL CALC 07/01/2009 stent placement CYSTO W/RETROGRADE x 6 DANDC (INCOMPLETE AB), ANY TRIMESTER 07/01/1974 EXCISE EXCESS SKIN TISSUE,ABDOMEN 07/01/1994 Abdominalplasty KNEE SURGERY HX Left 07/27/2024 LITHOTRIPSY PROC UNILATERAL 07/01/1985 rt kidney PAST SURGICAL HISTORY OF 12/03/2019 CABG 1v, cryomaze and AVr REMV CATARACT EXTRACAP,INSERT LENS STENT PLACEMENT 07/01/2003 LAD TONSILLECTOMY HX as child REVIEW OF SYSTEMS: GENERAL: No weight loss, malaise or fevers. HEENT: Negative for frequent or significant headaches, No changes in hearing or vision, no nose bleeds or other nasal problems RESPIRATORY: Negative for cough, wheezing or shortness of breath. CARDIOVASCULAR: Negative for chest pain, leg swelling or palpitations. GI: Negative for abdominal discomfort, blood in stools or black stools or change in bowel habits : No history of dysuria, frequency or incontinence MUSCULOSKELETAL: Negative for: joint pain or swelling, back pain and muscle pain SKIN: Negative for lesions, rash, and itching. HEMATOLOGY/LYMPHOLOGY: Negative for prolonged bleeding, bruising easily or swollen nodes. NEURO: No history of headaches, syncope, paralysis, seizures or tremors PHYSICAL EXAM: Vitals: BP 124/58 Pulse 68 Temp 36.3 ?C (97.3 ?F) (Temporal) Resp 18 (more content not included)...[facility]03-22-2025 History of Present illness Narrative* Bryanna Adan MD - 09/19/2024 5:13 PM EDT PATIENT NAME: Jemima Bradford DATE: 09/21/2024 PRIMARY CARE PHYSICIAN: Jasmyne Casillas CNP ([facility]) OTHER PHYSICIANS: Dr. Keene, Dr. Ferrari ([facility], [place]), Dr. Pizarro, Dr. Arguelles, Dr. Shaniqua Ellsworth (Pulmonary, [place]), Dr. Mitzi Amaral, Dr. Tovar ([facility] orthopedicsurgery) Portions of this encounter note have been copied from the note from 08/17/2024 and has been updated where appropriate, and reflect my current medical decision making from today. 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 INTERIM HISTORY: Since the patient's last visit here she has remained on anastrozole for breast cancer risk reduction after the diagnosis of DCIS. Since her knee surgery July 2024 she has had significant restless legs . Apparently medications her PCP wishes to prescribe are not compatible with a nastrozole. Subsequently the patient elected to discontinue anastrozole after completing slightly more than 4 years of treatment. Other than restless legs and joint pain she feels well. No changes in her breast. Mild shortness ofbreath is unchanged. No new pulmonary symptoms. MEDICATIONS: anastrozole (ARIMIDEX) 1 mg tablet Take 1 tablet by mouth once daily. oxyCODONE IR (ROXICODONE) 5 mg immediate release tablet TAKE ONE TABLET BY MOUTH EVERY 6 HOURS NEEDED FOR MORE SEVERE PAIN traMADol (ULTRAM) 50 mg tablet TAKE ONE TABLET BY MOUTH EVERY 6 HOURS NEEDED FOR MODERATE PAIN FOR 7 DAYS bumetanide (BUMEX) 1 mg tablet Take 1 mg by mouth two times a day. montelukast (SINGULAIR) 10 mg tablet Take 10 mg by mouth once daily. metoprolol tartrate, short acting, (LOPRESSOR) 25 mg tablet Take 1/2 tablet by mouth twice daily. levothyroxine (SYNTHROID) 50 mcg tablet levothyroxine 50 mcg tablet TAKE 1 TABLET BY MOUTH DAILY FOR HYPOTHYROIDISM apixaban (ELIQUIS) 5 mg tab(s) Eliquis 5 mg tablet Take 1 tablet twice a day by oral route for 90 days. calcium carbonate (CALTRATE) 600 mg calcium (1,500 mg) tab 600 mg. melatonin 10 mg tab 10 mg. rosuvastatin (CRESTOR) 40 mg tablet Take 40 mg by mouth once daily. spironolactone (ALDACTONE) 25 mg tablet Take 25 mg by mouth once daily. esomeprazole (NEXIUM) 40 mg capsule Take 40 mg by mouth as directed. Twice per week nitroglycerin sublingual (NITROQUICK) 0.4 mg SL tablet Dissolve 1 tablet under the tongue every 5 minutes as needed. COQ10, UBIQUINOL, ORAL Take 1 tablet by mouth once daily. Chromium Picolinate 500 mcg cap Take 1 tablet by mouth once daily. MAGNESIUM ORAL Take 1 tablet by mouth once daily. 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 Aortic valve stenosis mild Arthritis Asthma controlled no inhalers Coronary artery disease Hypercholesteremia Hypertension Polymyalgia rheumatica (HCC) PAST SURGICAL HISTORY: PAST SURGICAL HISTORY Procedure Laterality Date APPENDECTOMY 07/01/1978 ARTHROSCOPY KNEE MEDIAL RELEASE 2002,2010 rt & Lt knee ARTHRP KNE CONDYLE&PLATU MEDIAL&LAT COMPARTMENTS Right 07/01/2013 right x2 BREAST LUMPECTOMY HX BUNIONECTOMY, LAPIDUS-TYPE 07/01/2010 rt toe CHOLECYSTECTOMY 07/01/2005 COLONOSCOPY & POLYPECTOMY 2004, 2005, 2009 x 3 CYSTO LASER TX URETERAL CALC 07/01/2009 stent placement CYSTO W/RETROGRADE x 6 D&C (INCOMPLETE AB), ANY TRIMESTER 07/01/1974 EXCISE EXCESS SKIN TISSUE,ABDOMEN 07/01/1994 Abdominalplasty KNEE SURGERY HX Left 07/27/2024 LITHOTRIPSY PROC UNILATERAL 07/01/1985 rt kidney PAST SURGICAL HISTORY OF 12/03/2019 CABG 1v, cryomaze and AVr REMV CATARACT EXTRACAP,INSERT LENS STENT PLACEMENT 07/01/2003 LAD TONSILLECTOMY HX as child REVIEW OF SYSTEMS: GENERAL: No weight loss, malaise or fevers. HEENT: Negative for frequent or significant headaches, No changes in hearing or vision, no nose bleeds or other nasal problems RESPIRATORY: Negative for cough, wheezing or shortness of breath. CARDIOVASCULAR: Negative for chest pain, leg swelling or palpitations. GI: Negative for abdominal discomfort, blood in stools or black stools or change in bowel habits : No history of dysuria, frequency or incontinence MUSCULOSKELETAL: Negative for: joint pain or swelling, back pain and muscle pain SKIN: Negative for lesions, rash, and itching. HEMATOLOGY/LYMPHOLOGY: Negative for prolonged bleeding, bruising easily or swollen nodes. NEURO: No history of headaches, syncope, paralysis, seizures or tremors PHYSICAL EXAM: Vitals: BP 124/58 Pulse 68 Temp 36.3 C (97.3 F) (Temporal) Resp 18 Wt 76.6 kg (168 lb 12.8 oz) SpO2 98% BMI 28.09 kg/m General appearance: well appearing, alert, in no acute distress, well-hydrated, well nourished Skin: skin color, texture, turgor normal, no suspicious rashes or lesions Head: normal Eyes: Anicteric sclera. Pupils are equally round and reactive to light. Extraocular movements are intact. Ears: negative findings: external ears normal to inspection and palpation Oropharynx: negative Neck: Supple, no adenopathy; thyroid symmetric, normal size Lymph Nodes: No Submandibular, cervical, supraclavicular, axillary, or inguinal lymphadenopathy present Breast: Not examined today Back: no tenderness to palpation Lungs: clear to auscultation, no wheezing or rhonchi Heart: Negative. RRR without murmur, gallop, or rubs. No ectopy. Abdomen: Normal abdominal exam, Abdomen soft, non-tender. Bowel sounds normal. No masses, organomegaly Rectal: Not done Extremities: Extremities normal. No deformities, edema, or skin discoloration. Good capillary refill. Musculoskeletal: No joint swelling, deformity, or tenderness. Peripheral pulses: Normal PATHOLOGY: 06/13/2022 Left upper lobectomy and regional lymph node dissection A. Lymph node, level 9, excision: - Negative for tumor (0/1). B. Lymph node, 12 central, excision: - Negative for tumor (0/1). C. Lymph node, 11 anterior, excision: - Negative for tumor (0/1). D. Lymph node, 11 posterior, excision: - Negative for tumor (0/1). E. Lymph node, another 11 posterior, excision: - Negative for tumor (0/1). F. Lymph node, 10, excision: - Negative for tumor (0/1). G. Lymph node, 5, excision: - Negative for tumor (0/1). H. Lymph node, 7, excision: - Negative for tumor (0/1). I. Lung, left upper lobe, lingula-sparing left upper lobectomy: - Adenocarcinoma (2 cm), micropapillary predominant (70%), with additional papillary (20%), and acinar (10%) patterns (See synoptic template). - Seven hilar/peribronchial lymph nodes, negative for tumor (0/7). - Margins negative. ALK (D5F3) IMMUNOHISTOCHEMISTRY ASSAY Results: Positive Immunohistochemistry for PD-L1 expression Tumor Cells Positive: 70% ROS1 Rearrangement 0% RET Rearrangement 0% BRAF - No variant detected [Reference Sequence: ([id number])]. EGFR - No variant detected [Reference Sequence: ([id number])]. HER2 (ERBB2) - No variant detected [Reference Sequence: ([id number])]. KRAS - No variant detected [Reference Sequence: ([id number])]. MET - No variant detected [Reference Sequence: ([id number])]. 04/25/2022 CT directed biopsy left upper lung mass ([facility]) Adenocarcinoma consistent with lung primary 06/21/2020 Right breast lumpectomy ([facility]) Ductal carcinoma in situ, low nuclear grade, cribriform and solid types, 1.3 cm in greatest dimension. Posterior margin is within 1 mm from DCIS. ER 99%, HI 99% 06/06/2020 Left breast biopsy ([facility]) Columnar cell change/hyperplasia. Usual ductal hyperplasia. 05/25/2020 Right breast biopsy ([facility]) Ductal carcinoma in situ, nuclear grade 1. ER positive (99%, HI positive (99%) RADIOLOGY/OTHER STUDIES: 08/10/2024 CT chest IMPRESSION: 1. No interval change since 05/19/24. 2. Subcentimeter nodular opacities and groundglass opacities, stable. 2. Subcentimeter thoracic lymph nodes, stable. 05/19/2024 CT chest IMPRESSION: 1. Small left supraclavicular lymph nodes. Although subcentimeter in size, these are slightly increased in size when compared to 11/19/2023. The possibility of this representing metastatic adenopathy cannot be excluded given the change in size. Would advise further evaluation with either a PET/CT at this time or a short-term follow-up chest CT with contrast in 3 months. 2. Stable subcentimeter pulmonary nodules. 04/28/2024 Bilateral diagnostic mammogram ([facility]) Benign, no evidence of malignancy. Normal interval follow-up at 12 months. 11/19/2023 CT chest IMPRESSION: 1. Surgical changes compatible with left upper lobectomy with stable appearance when compared to the prior exam. No significant thoracic adenopathy. Stable subcentimeter solid nodule in groundglass nodule in the right upper lobe of the lungs. Would advise continued imaging surveillance. 06/04/2023 Bone density DEXA 1. Bone mineral density by WHO criteria: Osteoporosis. Fracture risk high. WHO 10-year fracture risk assessment described above. 2. When compared with the most recent study 05/31/2021, there has been a 7.3% increase in bone mineral density of the lumbar spine, and a 3.1% decrease in bone mineral density at the left hip. 05/21/2023 CT chest IMPRESSION: 1. Postoperative changes involving left hemithorax, stable in appearance from prior examination of 01/10/2023. 2. Subcentimeter right upper lobe nodules, unchanged. 3. No substantial intrathoracic adenopathy is appreciated. 3. Newly apparent subacute/healing fractures involving the right 5th through 7th ribs are appreciated. 04/30/2023 Bilateral diagnostic mammogram ([facility]) Benign, no evidence of malignancy. Normal interval follow-up at 12 months. 01/10/2023 CT chest IMPRESSION: 1. Postoperative changes involving left hemithorax, as above. Improving loculated left apical pleural effusion and adjacent left perihilar atelectasis, as above. Patchy left upper lung zone groundglass opacities are identified on today's examination. 2. Subcentimeter right upper lobe nodules, larger measuring 7 mm, stable. 3. No substantial intrathoracic adenopathy is appreciated. 07/12/2022 CT chest IMPRESSION: 1. Since 06/19/2022, removal of left anterior pleural catheter and left basilar chest tubes. Increase in size of anterior pleural effusion within the lobectomy cavity and left basilar small pleural effusion. Resolution of previously seen pneumothorax component. 2. Stable regions of atelectasis/scarring involving the left lung and anterior right middle lobe. No new airspace consolidation. 3. Unchanged indeterminate 0.7 cm right upper lobe pulmonary nodule. Continued attention on subsequent studies is suggested. 4. No progressive lymphadenopathy. 05/02/2022 Brain MRI ([facility]) Brain MRI within limits of normal. No signs of intracranial mass or abnormal enhancement. 04/11/2022 PET scan ([facility]) Nodular opacity in the left upper lobe demonstrates moderate uptake. No signs of distant metastases. 04/04/2022 High-resolution chest CT ([facility]) Previous linear scarlike opacity left upper lobe measuring 11 x 8 mm in December 2019 is now irregularly lobulated and measures 1.5 x 1.3 cm and is suspicious. PET scan or biopsy recommended. 06/08/2021 Diagnostic right mammogram and right breast ultrasound ([facility]) 2.2 cm complex fluid collection in the lumpectomy bed at the 5 o'clock position. Could be a postoperative seroma, old hematoma, or abscess. No finding to suggest malignancy in the right breast. 05/31/2021 Bone density DEXA ([facility]) Increasing osteopenia in the hips. Significant loss of bone in the lumbar spine, while remaining within normal limits LABORATORY DATA: Hemoglobin (g/dL) Date Value 08/17/2024 10.2 08/10/2021 11.5 Hematocrit (%) Date Value 08/17/2024 32.6 08/10/2021 35.0 WBC (k/uL) Date Value 08/17/2024 6.16 08/10/2021 5.13 Platelet Count (k/uL) Date Value 08/17/2024 256 08/10/2021 133 ASSESSMENT/PLAN: 1. 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 Status post lingular sparing left upper lobectomy and mediastinal lymph nodedissection 06/13/2022. Pathology revealed the primary tumor was 2 cm, 0 of 15 lymph nodes involved,margins negative. The primary tumor was positive for ALK mutation, plus elevated PD-L1 expression. Postop it was elected not to treat with adjuvant chemotherapy or adjuvant radiation therapy, and routine follow-up recommended. Since initial diagnosis and surgery the patient has had no documented recurrence. Restaging chest CT 05/19/2024 revealed small left supraclavicular lymph nodes. Although subcentimeter in size, these were slightly increased in size when compared to 11/19/2023. The possibility of this representing metastatic adenopathy cannot be excluded given the change in size. Repeat chest CT 03/2025 stable. Options for management were discussed at length with the patient and her . As planned we will restage again at 6 months (January 2025). However, per patient request we will arrange for a PET scan rather than CT scans. She will return for follow-up 1 week after her scans. 2. 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 The patient presented with right breast pain and was found to have an abnormality in the retroareolar area of the right breast. A right breast breast biopsy obtained 05/25/2020 revealed a low-grade ER/HI positive DCIS. The patient also underwent a left breast biopsy on 06/06/2020 which was benign. Genetic testing revealed no evidence of deleterious mutations. 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 Adjuvant hormonal therapy with anastrozole started July 2020. The patient received adjuvant radiation therapy to the right breast 08/08/2020 through 08/19/2020 (3000 cGy in 5 fractions). Due to adverse effects (jointpain, restless legs) the patient discontinued anastrozole August 2024. Currently no evidence of disease. At this time will continue routine observation. Next surveillance mammogram due March 2025. 3. Heart disease - ICD9: 429.9, ICD10: I51.9 History of coronary artery disease and aortic valve stenosis. Status post CABG, aortic valve replacement and cardiac ablation November 2019. History of paroxysmal atrial fibrillation - resolved after herinitial cardiac procedure in November 2019. Apparently the patient developed recurrent atrial fibrillation in August 2020 and underwent an additional ablation 01/04/2021. Currently on Eliquis and aspirin. Co ntinue management per PCP/cardiology. 4. 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 Currently on Eliquis and aspirin. Continue management per PCP/neurology. 5. PMR Diagnosed approximately 2018. Currently not on treatment. Continue management per rheumatology. 6. Age-related osteoporosis - ICD9: 733.01, ICD10: M81.0 The patient has a long history of osteopenia. Most recent bone density DEXA May 2023 revealed bone loss in the left hip consistent with osteoporosis. Reviewed the need for Calcium and Vitamin D supplements and weight bearing exercise as tolerated. The patient will discuss with her PCP options for additional therapy including antiresorptive agents. Bryanna Adan MD [facility] History of Present illness Narrative* Kosta Keene, DO - 08/20/2024 10:15 AM EST Images from the original note were not included. Jemima Bradford 1940 Jemima Bradford is a 84 y.o. female presents with chief complaint of 4yr. 2mos. Rt. lumpectomy HPI: HPI Jemima is 5 yrs 2 mths post Rt. Lumpectomy. Her mamm's are due in March SUBJECTIVE: MEDICATIONS: ALLERGIES Current Outpatient Medications Medication Instructions acetaminophen (Tylenol) 500 MG tablet Every 6 hours anastrozole (Arimidex) 1 MG chemo tablet 1 tablet, Oral, Daily aspirin 81 MG chewable tablet Chew 1 tablet every day by oral route. bumetanide (BUMEX) 1 mg, Oral, Every morning Calcium Carbonate-Vitamin D 600-5 MG-MCG tablet 1 tablet, Oral, Daily cholecalciferol (Vitamin D-3) 50 MCG (1999 UT) tablet Take 1.5 tablets every day by oral route. Chromium Picolinate 500 MCG capsule 1 tablet, Oral, Daily RT coenzyme Q-10 10 MG capsule Every 24 hours Eliquis 5 MG tablet 1 tablet, Oral, 2 times daily esomeprazole (NexIUM) [address] capsule TAKE 1 CAPSULE BY MOUTH ONCE DAILY FOR 90 DAYS levothyroxine (Synthroid, Levoxyl) 50 MCG tablet 1 tablet, Oral, Daily Linzess 290 MCG capsule TAKE 1 CAPSULE BY MOUTH ONCE DAILY AT LEAST 30 MINUTES BEFORE THE FIRST MEAL OF THE DAY ON AN EMPTY STOMACH magnesium oxide (Mag-Ox) 400 MG tablet 1 tablet, Oral, Daily Melatonin 10 MG capsule Take 1 capsule every day by oral route. metoprolol tartrate (Lopressor) 25 MG tablet 1 tablet, Oral, 2 times daily montelukast (SINGULAIR) 10 mg, Oral, Daily RT nitroglycerin (Nitrostat) 0.4 MG SL tablet DISSOLVE ONE TABLET UNDER THE TONGUE EVERY 5 MINUTES NEEDED FOR CHEST PAIN. DO NOT EXCEED A TOTAL OF 3 DOSES IN 15 MINUTES CALL 911. rosuvastatin (Crestor) 40 MG tablet 1 tablet, Oral, Daily spironolactone (Aldactone) 25 MG tablet 1 tablet, Oral, Daily Allergies Allergen Reactions Iodides Anaphylaxis and Shortness of breath Iodinated Contrast Media Shortness of breath Other Reaction(s): Not available, Rash Other Reaction(s): Rash Leucine Chlorproethazine Unknown Other Reaction(s): abdominal pain Clarithromycin Unknown Other Reaction(s): Not available, Unknown Reaction Other Reaction(s): Unknown Reaction Collagen Other Reaction(s): the Sinvist collagen in the knee Doxycycline Other Reaction(s): Unknown Other Reaction(s): Not available Hylan G-F 20 Swelling and Unknown Other Reaction(s): Itching, Not available Other Reaction(s): Itching, swelling Metal (Generic) Other Reaction(s): Edema Wound Dressing Adhesive Other Reaction(s): abdominal pain, Blister Other Reaction(s): Blister Chlorpromazine Rash and Unknown Other Reaction(s): Hives, Not available Other Reaction(s): Hives Nickel Rash and Unknown Other Reaction(s): Not available Other Reaction(s): Unknown Reaction Nitrous Oxide GI intolerance, Nausea And Vomiting and Unknown Other Reaction(s): Not available, Vomiting Other Reaction(s): Vomiting PAST MEDICAL HISTORY: SOCIAL HISTORY SURGICAL HISTORY: Past Medical History: Diagnosis Date Acute tonsillitis Adenocarcinoma (CMS/HCC) Ankle fracture Aortic stenosis Appendicitis Arthritis Asthma (CMS/HCC) Atrial fibrillation (CMS/HCC) Blepharitis Breast pain, right Bunion CAD (coronary artery disease) (CMS/HCC) Carpal tunnel syndrome Cataracts, bilateral Cerebrovascular accident (CMS/HCC) DCIS (ductal carcinoma in situ) of breast Right ER/HI+ Dry eyes Esophageal ulcer Family history of cancer H/O abdominoplasty Heart disease Hiatal hernia History of colonic polyps Hyperlipidemia (CMS/HCC) Hypertension (CMS/HCC) Migraines (CMS/HCC) Mitral valve prolapse Nephrolithiasis PCO (posterior capsular opacification) Sleep apnea Torn meniscus Social History Tobacco Use Smoking status: Former Types: Cigarettes Smokeless tobacco: Never Vaping Use Vaping status: Never Used Substance Use Topics Alcohol use: Never Drug use: Never Past Surgical History: Procedure Laterality Date BI US GUIDED BREAST LOCALIZATION AND BIOPSY LEFT Left 06/06/2020 BI US GUIDED BREAST LOCALIZATION AND BIOPSY LEFT [facility] BREAST LUMPECTOMY Right 05/2020 BUNIONECTOMY CARDIAC CATHETERIZATION CARPAL TUNNEL RELEASE CATARACT EXTRACTION EXTRACAPSULAR W/ INTRAOCULAR LENS IMPLANTATION Bilateral 2011 CHOLECYSTECTOMY COLONOSCOPY W/ BIOPSIES AND POLYPECTOMY 2019 CORONARY ARTERY BYPASS GRAFT 2019 CT GUIDED ABSCESS FLUID COLLECTION DRAINAGE 06/19/2022 CT GUIDED ABSCESS FLUID COLLECTION DRAINAGE 06/19/2022 CYSTOSCOPY W/ LASER LITHOTRIPSY 1985 CYSTOSCOPY W/ RETROGRADES 2009 LUNG REMOVAL, PARTIAL TOTAL KNEE ARTHROPLASTY 2013 FAMILY HISTORY Family History Problem Relation Name Age of Onset Pancreatic cancer Mother Breast cancer Sister Colon cancer Neg Hx Ovarian cancer Neg Hx REVIEW OF SYMPTOMS: Review of Systems Constitutional: Negative for diaphoresis and unexpected weight change. HENT: Negative for hearing loss, tinnitus and voice change. Respiratory: Positive for shortness of breath. Cardiovascular: Negative for chest pain and palpitations. Musculoskeletal: Positive for arthralgias. Neurological: Negative for dizziness, seizures and headaches. All other systems reviewed and are negative. Hematological: Negative for adenopathy. Does not bruise/bleed easily. OBJECTIVE: Visit Vitals OB Status Postmenopausal Smoking Status Former Physical Exam Exam conducted with a pipeliner present. HENT: Head: Normocephalic. Cardiovascular: Rate and Rhythm: Normal rate and regular rhythm. Pulmonary: Effort: Pulmonary effort is normal. Breath sounds: Normal breath sounds. Chest: Comments: Bilateral subclavicular, infraclavicular and axillary lymph nodes were normal. Each breast was examined in the sitting and supine position. There was no evidence of abnormal masses, skin dimpling or nipple discharge in either breast. The right breast has the well healed surgical scar in the inframammary fold, in the medial corner of the incision at the 5:00 postion at the inframamary fold is a mobile 1 cm mass consistent with the area of the seroma. Abdominal: General: Abdomen is flat. Bowel sounds are normal. Palpations: Abdomen is soft. Skin: General: Skin is warm and dry. Neurological: Mental Status: She is alert. ASSESSMENT AND PLAN: Assessment/Plan Problem List Items Addressed This Visit Ductal carcinoma in situ (DCIS) of right breast - Primary Jemima is doing well, the nodule in the IM right breast above the incision is unchanged. I'll see her in 6 months and she is due for mamm's in March. documented in this encounterMer[facility] [id number] Telephone encounter Note* Telephone Encounter - Katie Cook PA-C - 08/18/2024 4:15 PM EST Signed Katie Cook PA-C [facility]02-[facility] Miscellaneous Notes* Telephone Encounter - Katie Cook PA-C - 08/18/2024 4:15 PM EST Signed Katie Cook PA-C * Telephone Encounter - Gia Clayton RN - 08/18/2024 4:02 PM EST Pt forgot to have [facility] refill Anastrozole yesterday at appt. [facility]: Pended for review and sign Gia Clayton RN documented in [facility]-2025 Telephone encounter Note * Telephone Encounter - Gia Clayton RN - 08/18/2024 4:02 PM EST Pt forgot to have [facility] refill Anastrozole yesterday at appt. [facility]: Pended for review and sign Gia Clayton RN [facility]02-16-2025 NoteHNO ID: [id number] Author: BRYANNA ADAN MD Service: ? Author Type: Physician Type: Progress Notes Filed: 08/17/2024 19:22 Note Text: PATIENT NAME: Jemima Bradford DATE: 08/17/2024 PRIMARY CARE PHYSICIAN: Jasmyne Casillas CNP ([facility]) OTHER PHYSICIANS: Dr. Keene, Dr. Ferrari ([facility] Card[facility], [place]), Dr. Pizarro, Dr. Arguelles, Dr. Shaniqua Ellsworth (Pulmonary, [place]), Dr. Mitzi Amaral, Dr. Tovar ([facility] orthopedic surgery) Portions of this encounter note have been copied from my note from 05/25/2024 and has been updated where appropriate, and reflect my current medical decision making from today. 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 INTERIM HISTORY: Since the patient's last visit here she underwent left knee replacement at [facility] per Dr. Tovar on 07/27/2024. She tolerated surgery well with no immediate complications. She has ongoing pain and swelling in the area, but symptoms not severe. Otherwise no significant medical changes. Chronic shortness of breath is unchanged. No new pulmonary symptoms. She has noticed no changes in her breasts. She remains on anastrozole and is tolerating it well. MEDICATIONS: oxyCODONE IR (ROXICODONE) 5 mg immediate release tablet TAKE ONE TABLET BY MOUTH EVERY 6 HOURS NEEDED FOR MORE SEVERE PAIN traMADol (ULTRAM) 50 mg tablet TAKE ONE TABLET BY MOUTH EVERY 6 HOURS NEEDED FOR MODERATE PAIN FOR 7 DAYS bumetanide (BUMEX) 1 mg tablet Take 1 mg by mouth two times a day. anastrozole (ARIMIDEX) 1 mg tablet Take 1 tablet by mouth once daily. montelukast (SINGULAIR) 10 mg tablet Take 10 mg by mouth once daily. metoprolol tartrate, short acting, (LOPRESSOR) 25 mg tablet Take 1/2 tablet by mouth twice daily. levothyroxine (SYNTHROID) 50 mcg tablet levothyroxine 50 mcg tablet TAKE 1 TABLET BY MOUTH DAILY FOR HYPOTHYROIDISM apixaban (ELIQUIS) 5 mg tab(s) Eliquis 5 mg tablet Take 1 tablet twice a day by oral route for 90 days. calcium carbonate (CALTRATE) 600 mg calcium (1,500 mg) tab 600 mg. melatonin 10 mg tab 10 mg. rosuvastatin (CRESTOR) 40 mg tablet Take 40 mg by mouth once daily. spironolactone (ALDACTONE) 25 mg tablet Take 25 mg by mouth once daily. esomeprazole (NEXIUM) 40 mg capsule Take 40 mg by mouth as directed. Twice per week nitroglycerin sublingual (NITROQUICK) 0.4 mg SL tablet Dissolve 1 tablet under the tongue every 5 minutes as needed. COQ10, UBIQUINOL, ORAL Take 1 tablet by mouth once daily. Chromium Picolinate 500 mcg cap Take 1 tablet by mouth once daily. MAGNESIUM ORAL Take 1 tablet by mouth once daily. 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 Aortic valve stenosis mild Arthritis Asthma controlled no inhalers Coronary artery disease Hypercholesteremia Hypertension Polymyalgia rheumatica (HCC) PAST SURGICAL HISTORY: PAST SURGICAL HISTORY Procedure Laterality Date APPENDECTOMY 07/01/1978 ARTHROSCOPY KNEE MEDIAL RELEASE 2002,2010 rt AND Lt knee ARTHRP KNE CONDYLEANDPLATU MEDIALANDLAT COMPARTMENTS Right 07/01/2013 right x2 BREAST LUMPECTOMY HX BUNIONECTOMY, LAPIDUS-TYPE 07/01/2010 rt toe CHOLECYSTECTOMY 07/01/2005 COLONOSCOPY AND POLYPECTOMY 2004, 2005, 2009 x 3 CYSTO LASER TX URETERAL CALC 07/01/2009 stent placement CYSTO W/RETROGRADE x 6 DANDC (INCOMPLETE AB), ANY TRIMESTER 07/01/1974 EXCISE EXCESS SKIN TISSUE,ABDOMEN 07/01/1994 Abdominalplasty KNEE SURGERY HX Left 07/27/2024 LITHOTRIPSY PROC UNILATERAL 07/01/1985 rt kidney PAST SURGICAL HISTORY OF 12/03/2019 CABG 1v, cryomaze and AVr REMV CATARACT EXTRACAP,INSERT LENS STENT PLACEMENT 07/01/2003 LAD TONSILLECTOMY HX as child REVIEW OF SYSTEMS: GENERAL: No weight loss, malaise or fevers. HEENT: Negative for frequent or significant headaches, No changes in hearing or vision, no nose bleeds or other nasal problems RESPIRATORY: Negative for cough, wheezing or shortness of breath. CARDIOVASCULAR: Negative for chest pain, leg swelling or palpitations. GI: Negative for abdominal discomfort, blood in stools or black stools or change in bowel habits : No history of dysuria, frequency or incontinence MUSCULOSKELETAL: Negative for: joint pain or swelling, back pain and muscle pain SKIN: Negative for lesions, rash, and itching. HEMATOLOGY/LYMPHOLOGY: Negative for prolonged bleeding, bruising easily or swollen nodes. NEURO: No history of headaches, syncope, paralysis, seizures or tremors PHYSICAL EXAM: Vitals: BP 130/76 Pulse 76 Temp 36.2 ?C (97.1 ?F) (Temporal) Resp 18 Wt 77.1 kg (170 lb) SpO2 100% BMI 28.29 kg/m? General appearance: well appearing, alert, in no acute dis (more content not included)...[facility]02-16-2025 History of Present illness Narrative* Bryanna Adan MD - 08/16/2024 5:54 PM EST PATIENT NAME: Jemima Bradford DATE: 08/17/2024 PRIMARY CARE PHYSICIAN: Jasmyne Casillas, CURTIS ([facility]) OTHER PHYSICIANS: Dr. Keene, Dr. Ferrari ([facility] Cardiology, [place]), Dr. Pizarro, Dr. Arguelles, Dr. Shaniqua Ellsworth (Pulmonary, [place]), Dr. Mitzi Amaral, Dr. Tovar ([facility] orthopedicsurgery) Portions of this encounter note have been copied from my note from 05/25/2024 and has been updated where appropriate, and reflect my current medical decision making from today. 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 INTERIM HISTORY: Since the patient's last visit here she underwent left knee replacement at [facility] per Dr. Tovar on 07/27/2024. She tolerated surgery well with no immediate complications. She has ongoing pain and swelling in the area, but symptoms not severe. Otherwise no significant medical changes. Chronic shortness of breath is unchanged. No new pulmonary symptoms. She has noticed no changes in her breasts. She remains on anastrozole and is tolerating it well. MEDICATIONS: oxyCODONE IR (ROXICODONE) 5 mg immediate release tablet TAKE ONE TABLET BY MOUTH EVERY 6 HOURS NEEDED FOR MORE SEVERE PAIN traMADol (ULTRAM) 50 mg tablet TAKE ONE TABLET BY MOUTH EVERY 6 HOURS NEEDED FOR MODERATE PAIN FOR 7 DAYS bumetanide (BUMEX) 1 mg tablet Take 1 mg by mouth two times a day. anastrozole (ARIMIDEX) 1 mg tablet Take 1 tablet by mouth once daily. montelukast (SINGULAIR) 10 mg tablet Take 10 mg by mouth once daily. metoprolol tartrate, short acting, (LOPRESSOR) 25 mg tablet Take 1/2 tablet by mouth twice daily. levothyroxine (SYNTHROID) 50 mcg tablet levothyroxine 50 mcg tablet TAKE 1 TABLET BY MOUTH DAILY FOR HYPOTHYROIDISM apixaban (ELIQUIS) 5 mg tab(s) Eliquis 5 mg tablet Take 1 tablet twice a day by oral route for 90 days. calcium carbonate (CALTRATE) 600 mg calcium (1,500 mg) tab 600 mg. melatonin 10 mg tab 10 mg. rosuvastatin (CRESTOR) 40 mg tablet Take 40 mg by mouth once daily. spironolactone (ALDACTONE) 25 mg tablet Take 25 mg by mouth once daily. esomeprazole (NEXIUM) 40 mg capsule Take 40 mg by mouth as directed. Twice per week nitroglycerin sublingual (NITROQUICK) 0.4 mg SL tablet Dissolve 1 tablet under the tongue every 5 minutes as needed. COQ10, UBIQUINOL, ORAL Take 1 tablet by mouth once daily. Chromium Picolinate 500 mcg cap Take 1 tablet by mouth once daily. MAGNESIUM ORAL Take 1 tablet by mouth once daily. 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 Aortic valve stenosis mild Arthritis Asthma controlled no inhalers Coronary artery disease Hypercholesteremia Hypertension Polymyalgia rheumatica (HCC) PAST SURGICAL HISTORY: PAST SURGICAL HISTORY Procedure Laterality Date APPENDECTOMY 07/01/1978 ARTHROSCOPY KNEE MEDIAL RELEASE 2002,2010 rt & Lt knee ARTHRP KNE CONDYLE&PLATU MEDIAL&LAT COMPARTMENTS Right 07/01/2013 right x2 BREAST LUMPECTOMY HX BUNIONECTOMY, LAPIDUS-TYPE 07/01/2010 rt toe CHOLECYSTECTOMY 07/01/2005 COLONOSCOPY & POLYPECTOMY 2004, 2005, 2009 x 3 CYSTO LASER TX URETERAL CALC 07/01/2009 stent placement CYSTO W/RETROGRADE x 6 D&C (INCOMPLETE AB), ANY TRIMESTER 07/01/1974 EXCISE EXCESS SKIN TISSUE,ABDOMEN 07/01/1994 Abdominalplasty KNEE SURGERY HX Left 07/27/2024 LITHOTRIPSY PROC UNILATERAL 07/01/1985 rt kidney PAST SURGICAL HISTORY OF 12/03/2019 CABG 1v, cryomaze and AVr REMV CATARACT EXTRACAP,INSERT LENS STENT PLACEMENT 07/01/2003 LAD TONSILLECTOMY HX as child REVIEW OF SYSTEMS: GENERAL: No weight loss, malaise or fevers. HEENT: Negative for frequent or significant headaches, No changes in hearing or vision, no nose bleeds or other nasal problems RESPIRATORY: Negative for cough, wheezing or shortness of breath. CARDIOVASCULAR: Negative for chest pain, leg swelling or palpitations. GI: Negative for abdominal discomfort, blood in stools or black stools or change in bowel habits : No history of dysuria, frequency or incontinence MUSCULOSKELETAL: Negative for: joint pain or swelling, back pain and muscle pain SKIN: Negative for lesions, rash, and itching. HEMATOLOGY/LYMPHOLOGY: Negative for prolonged bleeding, bruising easily or swollen nodes. NEURO: No history of headaches, syncope, paralysis, seizures or tremors PHYSICAL EXAM: Vitals: BP 130/76 Pulse 76 Temp 36.2 C (97.1 F) (Temporal) Resp 18 Wt 77.1 kg (170 lb) SpO2 100% BMI 28.29 kg/m General appearance: well appearing, alert, in no acute distress, well-hydrated, well nourished Skin: skin color, texture, turgor normal, no suspicious rashes or lesions Head: normal Eyes: Anicteric sclera. Pupils are equally round and reactive to light. Extraocular movements are intact. Ears: negative findings: external ears normal to inspection and palpation Oropharynx: negative Neck: Supple, no adenopathy; thyroid symmetric, normal size Lymph Nodes: No Submandibular, cervical, supraclavicular, axillary, or inguinal lymphadenopathy present Breast: Not examined today Back: no tenderness to palpation Lungs: clear to auscultation, no wheezing or rhonchi Heart: Negative. RRR without murmur, gallop, or rubs. No ectopy. Abdomen: Normal abdominal exam, Abdomen soft, non-tender. Bowel sounds normal. No masses, organomegaly Rectal: Not done Extremities: Extremities normal. No deformities, edema, or skin discoloration. Good capillary refill. Musculoskeletal: No joint swelling, deformity, or tenderness. Peripheral pulses: Normal PATHOLOGY: 06/13/2022 Left upper lobectomy and regional lymph node dissection A. Lymph node, level 9, excision: - Negative for tumor (0/1). B. Lymph node, 12 central, excision: - Negative for tumor (0/1). C. Lymph node, 11 anterior, excision: - Negative for tumor (0/1). D. Lymph node, 11 posterior, excision: - Negative for tumor (0/1). E. Lymph node, another 11 posterior, excision: - Negative for tumor (0/1). F. Lymph node, 10, excision: - Negative for tumor (0/1). G. Lymph node, 5, excision: - Negative for tumor (0/1). H. Lymph node, 7, excision: - Negative for tumor (0/1). I. Lung, left upper lobe, lingula-sparing left upper lobectomy: - Adenocarcinoma (2 cm), micropapillary predominant (70%), with additional papillary (20%), and acinar (10%) patterns (See synoptic template). - Seven hilar/peribronchial lymph nodes, negative for tumor (0/7). - Margins negative. ALK (D5F3) IMMUNOHISTOCHEMISTRY ASSAY Results: Positive Immunohistochemistry for PD-L1 expression Tumor Cells Positive: 70% ROS1 Rearrangement 0% RET Rearrangement 0% BRAF - No variant detected [Reference Sequence: ([id number])]. EGFR - No variant detected [Reference Sequence: ([id number])]. HER2 (ERBB2) - No variant detected [Reference Sequence: ([id number])]. KRAS - No variant detected [Reference Sequence: ([id number])]. MET - No variant detected [Reference Sequence: ([id number])]. 04/25/2022 CT directed biopsy left upper lung mass ([facility]) Adenocarcinoma consistent with lung primary 06/21/2020 Right breast lumpectomy ([facility]) Ductal carcinoma in situ, low nuclear grade, cribriform and solid types, 1.3 cm in greatest dimension. Posterior margin is within 1 mm from DCIS. ER 99%, HI 99% 06/06/2020 Left breast biopsy ([facility]) Columnar cell change/hyperplasia. Usual ductal hyperplasia. 05/25/2020 Right breast biopsy ([facility]) Ductal carcinoma in situ, nuclear grade 1. ER positive (99%, HI positive (99%) RADIOLOGY/OTHER STUDIES: 08/10/2024 CT chest IMPRESSION: 1. No interval change since 05/19/24. 2. Subcentimeter nodular opacities and groundglass opacities, stable. 2. Subcentimeter thoracic lymph nodes, stable. 05/19/2024 CT chest IMPRESSION: 1. Small left supraclavicular lymph nodes. Although subcentimeter in size, these are slightly increased in size when compared to 11/19/2023. The possibility of this representing metastatic adenopathy cannot be excluded given the change in size. Would advise further evaluation with either a PET/CT at this time or a short-term follow-up chest CT with contrast in 3 months. 2. Stable subcentimeter pulmonary nodules. 04/28/2024 Bilateral diagnostic mammogram ([facility]) Benign, no evidence of malignancy. Normal interval follow-up at 12 months. 11/19/2023 CT chest IMPRESSION: 1. Surgical changes compatible with left upper lobectomy with stable appearance when compared to the prior exam. No significant thoracic adenopathy. Stable subcentimeter solid nodule in groundglass nodule in the right upper lobe of the lungs. Would advise continued imaging surveillance. 06/04/2023 Bone density DEXA 1. Bone mineral density by WHO criteria: Osteoporosis. Fracture risk high. WHO 10-year fracture risk assessment described above. 2. When compared with the most recent study 05/31/2021, there has been a 7.3% increase in bone mineral density of the lumbar spine, and a 3.1% decrease in bone mineral density at the left hip. 05/21/2023 CT chest IMPRESSION: 1. Postoperative changes involving left hemithorax, stable in appearance from prior examination of 01/10/2023. 2. Subcentimeter right upper lobe nodules, unchanged. 3. No substantial intrathoracic adenopathy is appreciated. 3. Newly apparent subacute/healing fractures involving the right 5th through 7th ribs are appreciated. 04/30/2023 Bilateral diagnostic mammogram ([facility]) Benign, no evidence of malignancy. Normal interval follow-up at 12 months. 01/10/2023 CT chest IMPRESSION: 1. Postoperative changes involving left hemithorax, as above. Improving loculated left apical pleural effusion and adjacent left perihilar atelectasis, as above. Patchy left upper lung zone groundglass opacities are identified on today's examination. 2. Subcentimeter right upper lobe nodules, larger measuring 7 mm, stable. 3. No substantial intrathoracic adenopathy is appreciated. 07/12/2022 CT chest IMPRESSION: 1. Since 06/19/2022, removal of left anterior pleural catheter and left basilar chest tubes. Increase in size of anterior pleural effusion within the lobectomy cavity and left basilar small pleural effusion. Resolution of previously seen pneumothorax component. 2. Stable regions of atelectasis/scarring involving the left lung and anterior right middle lobe. No new airspace consolidation. 3. Unchanged indeterminate 0.7 cm right upper lobe pulmonary nodule. Continued attention on subsequent studies is suggested. 4. No progressive lymphadenopathy. 05/02/2022 Brain MRI ([facility]) Brain MRI within limits of normal. No signs of intracranial mass or abnormal enhancement. 04/11/2022 PET scan ([facility]) Nodular opacity in the left upper lobe demonstrates moderate uptake. No signs of distant metastases. 04/04/2022 High-resolution chest CT ([facility]) Previous linear scarlike opacity left upper lobe measuring 11 x 8 mm in December 2019 is now irregularly lobulated and measures 1.5 x 1.3 cm and is suspicious. PET scan or biopsy recommended. 06/08/2021 Diagnostic right mammogram and right breast ultrasound ([facility]) 2.2 cm complex fluid collection in the lumpectomy bed at the 5 o'clock position. Could be a postoperative seroma, old hematoma, or abscess. No finding to suggest malignancy in the right breast. 05/31/2021 Bone density DEXA ([facility]) Increasing osteopenia in the hips. Significant loss of bone in the lumbar spine, while remaining within normal limits LABORATORY DATA: Hemoglobin (g/dL) Date Value 08/17/2024 10.2 08/10/2021 11.5 Hematocrit (%) Date Value 08/17/2024 32.6 08/10/2021 35.0 WBC (k/uL) Date Value 08/17/2024 6.16 08/10/2021 5.13 Platelet Count (k/uL) Date Value 08/17/2024 256 08/10/2021 133 ASSESSMENT/PLAN: 1. 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 Status post lingular sparing left upper lobectomy and mediastinal lymph nodedissection 06/13/2022. Pathology revealed the primary tumor was 2 cm, 0 of 15 lymph nodes involved,margins negative. The primary tumor was positive for ALK mutation, plus elevated PD-L1 expression. Postop it was elected not to treat with adjuvant chemotherapy or adjuvant radiation therapy, and routine follow-up recommended. Since initial diagnosis and surgery the patient has had no documented recurrence. Restaging chest CT 05/19/2024 revealed small left supraclavicular lymph nodes. Although subcentimeter in size, these were slightly increased in size when compared to 11/19/2023. The possibility of this representing metastatic adenopathy cannot be excluded given the change in size. Repeat chest CT 03/2025 stable. Options for management discussed at length with the patient and her . At this time will continue close observation. Return in [address] chest, abdomen and pelvis (due to IV contrast allergy will do with oral contrast only). 2. 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 The patient presented with right breast pain and was found to have an abnormality in the retroareolar area of the right breast. A right breast breast biopsy obtained 05/25/2020 revealed a low-grade ER/HI positive DCIS. The patient also underwent a left breast biopsy on 06/06/2020 which was benign. Genetic testing revealed no evidence of deleterious mutations. 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 Adjuvant hormonal therapy with anastrozole started July 2020. The patient received adjuvant radiation therapy to the right breast 08/08/2020 through 08/19/2020 (3000 cGy in 5 fractions). At this time she has no evidence of disease. Plans are to continue anastrozole for 5 years total (July 2025). Next surveillance mammogram due March 2025. 3. Heart disease - ICD9: 429.9, ICD10: I51.9 History of coronary artery disease and aortic valve stenosis. Status post CABG, aortic valve replacement and cardiac ablation November 2019. History of paroxysmal atrial fibrillation - resolved after herinitial cardiac procedure in November 2019. Apparently the patient developed recurrent atrial fibrillation in August 2020 and underwent an additional ablation 01/04/2021. Currently on Eliquis and aspirin. Co ntinue management per PCP/cardiology. 4. 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 Currently on Eliquis and aspirin. Continue management per PCP/neurology. 5. PMR Diagnosed approximately 2018. Currently not on treatment. Continue management per rheumatology. 6. Age-related osteoporosis - ICD9: 733.01, ICD10: M81.0 The patient has a long history of osteopenia. Most recent bone density DEXA May 2023 revealed bone loss in the left hip consistent with osteoporosis. Reviewed the need for Calcium and Vitamin D supplements and weight bearing exercise as tolerated. The patient will discuss with her PCP options for additional therapy including antiresorptive agents. Bryanna Adan MD [facility] Telephone encounter Note * Telephone Encounter - Gia Clayton RN - 08/13/2024 10:39 AM EST VM left for pt with BRM message below. Encouraged to call with any questions, needs or concerns. Follow up appointment date and time provided. Gia Clayton RN [facility]02-13-2025 Miscellaneous Notes* Telephone Encounter - Gia Clayton RN - 08/13/2024 10:39 AM EST VM left for pt with BRM message below. Encouraged to call with any questions, needs or concerns. Follow up appointment date and time provided. Gia Clayton RN [facility] History of Present illness Narrative* Jennifer Anderson RT(R) - 08/10/2024 9:45 AM EST Radiology Service Progress Note PATIENT NAME: Jemima Bradford DATE OF SERVICE: August 10, 2024 TIME: 10:02 AM PATIENT IDENTITY VERIFICATION COMPLETED USING TWO (2) IDENTIFIERS: Name and Date of confirmedby patient verbally. FALL SCREENING: Has the patient had 2 falls in the last year or 1 fall with injury or currently using an Ambulatory Assistive Device (Walker, Cane, Wheelchair, Crutches, etc.)? No PATIENT GENDER DATA: Assigned female at . status: : No status:NO. PATIENT RELEVANT IMPLANT DATA REVIEWED: Not Applicable PATIENT PRESENTS WITH AN IMPLANTABLE OR ATTACHED PHYSICAL SCIENCES PROFESSOR: No RADIOLOGY DEPARTMENT: CT; Exam(s) Completed: Chest PERIPHERAL IV DATA: Not applicable SIGNED BY: JENNIE Rodriguez) August 10, 2024 10:02 AM documented in this encounterK[facility]-2025 NoteHNO ID: [id number] Author: JENNIFER ANDERSON RT(R) Service: ? Author Type: Technologist Type: Progress Notes Filed: 08/10/2024 10:02 Note Text: Radiology Service Progress Note PATIENT NAME: Jemima Bradford DATE OF SERVICE: August 10, 2024 TIME: 10:02 AM PATIENT IDENTITY VERIFICATION COMPLETED USING TWO (2) IDENTIFIERS: Name and Date of confirmed by patient verbally. FALL SCREENING: Has the patient had 2 falls in the last year or 1 fall with injury or currently using an Ambulatory Assistive Device (Walker, Cane, Wheelchair, Crutches, etc.)? No PATIENT GENDER DATA: Assigned female at . status: : No status: NO. PATIENT RELEVANT IMPLANT DATA REVIEWED: Not Applicable PATIENT PRESENTS WITH AN IMPLANTABLE OR ATTACHED PHYSICAL SCIENCES PROFESSOR: No RADIOLOGY DEPARTMENT: CT; Exam(s) Completed: Chest PERIPHERAL IV DATA: Not applicable SIGNED BY: JENNIE Rodriguez) August 10, 2024 10:02 [facility]02-01-2025 Progress note Author Alysia Patrick [facility] Note Date/Time August 01, 2024 1 1:27am [facility] [address] [place] [address] Physiatry(Rehab) Progress Note Signed Patient: Jemima Bradford MR#: [id number] : 1940 Acct:[id number] Age/Sex: 84 / F Adm Date: 5 Loc: Room: 1Y3513-8 Type: ADM IN Attending Dr: Tuan Farrell MD Copies to: ~ Date of Service: 07/31/2024 Subjective Subjective Narrative: Ms. Bradford is a 84 year old female with multiple complex medical comorbidities including CHF status post CABG, CKD, sleep apnea, hypertension, and history of right total knee arthroplasty status post revision presenting with functional decline after left total knee arthroplasty. 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 She has apprehension regarding her recovery as she says her right total knee was messed up her prior orthopedic surgeon at [facility] and required revision surgery at [facility]. We reviewed her labs and her medications. She has good understanding of her comorbidities. Interval history: Patient examined while resting in bed. She appears in no distress. Pain in theleft knee is adequately controlled on current regimen. She reports no muscle spasms. Operative leg does appear somewhat edematous, we will have nursing apply Eric wrap. She has no calf pain with this. Patient does admit to some shortness of breath which is chronic due to asthma and CHF, it is not any worse than usual. She maintains adequate SpO2 saturations on room air. Lung sounds are clear to auscultation bilaterally. She is doing fairly well functionally. Ambulatory 400 feet with a walker and SBA/CGA. Contact-guard assist/SBA with transfers. She wants to go home over the weekend, concerned about her demented who is usually under her supervision. Review of Systems Review of Systems All other systems reviewed & are negative unless noted below or in HPI Exam Physical Exam Vital Signs: Temp Pulse Resp BP Pulse Ox O2 Del Method 97.8 F 86 20 108/69 96 Room Air 07/31/24 06:06 07/31/24 08:26 07/31/24 08:26 07/31/24 08:26 07/31/24 08:26 07/31/24 08:26 Narrative: General: Awake, alert, oriented x3 HENT: Normal to inspection, normocephalic, atraumatic Eyes: PERRL, normal conjunctiva and sclera Neck: Normal ROM, normal visual inspection. Trachea midline. Cardio: Regular heart rate and rhythm. Heart murmur. Respiratory: Clear to auscultation bilaterally. Normal respiratory effort. No respiratory distress. GI: Abdomen soft, nontender, nondistended, active bowel sounds x4 quadrants Neuro: CN II-XII intact. Strength 5/5, equal bilaterally Extremities: Left lower extremity edema, pitting. No pain to palpation. No erythema. Psych: Mood and affect appropriate. Normal speech. Objective Labs 07/29/24 04:51 07/29/24 04:51 Medications and Allergies Allergies and Active Meds: Allergies Iodinated Contrast Media (Iodinated Contrast- Oral and IV Dye) Allergy (Severe, Verified 07/27/24 10:25) Anaphylaxis adhesive tape (Tape) Allergy (Unknown, Verified 07/16/24 10:01) Blister chlorpromazine (From Thorazine) Allergy (Unknown, Verified 07/16/24 10:01) Hives clarithromycin (From Biaxin) Allergy (Unknown, Verified 07/16/24 10:01) Unknown Reaction hylan G-F 20 (From Synvisc) Allergy (Unknown, Verified 07/16/24 10:01) Itching, swelling nickel Allergy (Unknown, Verified 07/16/24 10:01) Swelling nitrous oxide Allergy (Unknown, Verified 07/16/24 10:01) Vomiting simvus Allergy (Unknown, Uncoded 06/02/24 10:03) Unknown Reaction metal Allergy (Uncoded 06/02/24 10:03) Edema Active Medications Generic Name Dose Route Start Last Admin Trade Name Freq PRN Reason Stop Dose Admin Acetaminophen 1,000 mg 07/28/24 22:00 07/31/24 05:52 Acetaminophen 500 Mg Tablet PO 07/28/25 21:59 1,000 mg Q8H TIMOTEO Administration Al Hydrox/Mg Hydrox/Simethicone 30 ml 07/28/24 15:56 Mag Hydrox/Al Hydrox/Simeth 30 Ml Udc PO 07/28/25 15:55 Q4H PRN Indigestion Albuterol 1 puff 07/28/24 16:09 Albuterol Hfa 60 Puff/8 Gram Inhaler INHALATION 07/28/25 16:08 Q4H PRN Shortness Of Breath Or Wheezing Anastrozole 1 mg 07/30/24 22:00 07/31/24 00:02 Anastrozole 1 Mg Tablet PO 07/30/25 21:59 1 mg QHS TIMOTEO Administration Apixaban 5 mg 07/28/24 21:00 07/31/24 08:31 Apixaban 5 Mg Tablet PO 07/28/25 20:59 5 mg BID TIMOTEO Administration Ascorbic Acid 500 mg 07/29/24 09:00 07/31/24 08:31 Ascorbic Acid 500 Mg Tablet PO 07/29/25 08:59 500 mg DAILY TIMOTEO Administration Atorvastatin Calcium 80 mg 07/28/24 22:00 07/30/24 21:41 Atorvastatin 80 Mg Tablet PO 07/28/25 21:59 80 mg HS TIMOTEO Administration Bisacodyl 10 mg 07/28/24 15:56 Bisacodyl 10 Mg Supp.Rect HI 07/28/25 15:55 DAILY PRN Constipation Budesonide/Formoterol Fumarate 2 puff 07/28/24 21:00 07/31/24 06:28 Budesonide/Formoterol 160-4.5 Mcg 60 Puff/6 Gm Hfa.Aer.Ad INHALATION 07/28/25 20:59 2 puff BID TIMOTEO Administration Bumetanide 1 mg 07/29/24 09:00 07/31/24 08:31 Bumetanide 1 Mg Tablet PO 07/29/25 08:59 1 mg QAM TIMOTEO Administration Cefadroxil 500 mg 07/28/24 21:00 07/31/24 08:31 Cefadroxil 500 Mg Capsule PO 08/03/24 09:01 500 mg Q12H TIMOTEO Administration Docusate Sodium 100 mg 07/28/24 15:56 07/29/24 22:21 Docusate 100 Mg Capsule PO 07/28/25 15:55 100 mg BID PRN Administration Constipation Docusate Sodium 283 mg 07/28/24 15:56 Docusate Enema 283 Mg/5 Ml Enema HI 07/28/25 15:55 DAILY PRN Constipation Duloxetine HCl 30 mg 07/28/24 21:00 07/30/24 21:41 Duloxetine 30 Mg Capsule. PO 07/28/25 20:59 30 mg QPM TIMOTEO Administration Ferrous Sulfate 324 mg 07/29/24 09:00 07/31/24 08:31 Ferrous Sulfate 324 Mg Tablet. PO 07/29/25 08:59 324 mg DAILY TIMOTEO Administration Lactulose 30 gm 07/28/24 15:56 Lactulose 20 Gm/30 Ml Udc PO 07/28/25 15:55 DAILY PRN Constipation Levothyroxine Sodium 50 mcg 07/29/24 06:30 07/31/24 05:52 Levothyroxine 50 Mcg Tablet PO 07/29/25 06:29 50 mcg DAILY@0630 TIMOTEO Administration Linaclotide 72 mcg 07/29/24 23:00 07/30/24 21:41 Linaclotide 72 Mcg Capsule PO 07/29/25 22:59 72 mcg QPM TIMOTEO Administration Melatonin 5 mg 07/28/24 22:00 07/30/24 21:41 Melatonin 5 Mg Tablet PO 07/28/25 21:59 5 mg QHS TIMOTEO Administration Metoprolol Tartrate 12.5 mg 07/28/24 21:00 07/31/24 08:32 Metoprolol Tartrate 12.5 Mg Tablet PO 07/28/25 20:59 12.5 mg BID TIMOTEO Administration Montelukast Sodium 10 mg 07/29/24 09:00 07/31/24 08:32 Montelukast 10 Mg Tablet PO 07/29/25 08:59 10 mg QAM TIMOTEO Administration Nitroglycerin 0.4 mg 07/28/24 16:10 Nitroglycerin 0.4 Mg Tab.Subl SUBLINGUAL 07/28/25 16:09 Q5MIN.X3 PRN Pain Ondansetron HCl 4 mg 07/28/24 17:15 Ondansetron Odt 4 Mg Tab.Rapdis PO 07/28/25 17:14 Q8H PRN Nausea Oxycodone HCl 5 mg 07/28/24 16:10 07/31/24 08:31 Oxycodone Ir 5 Mg Tablet PO 5 mg Q4H PRN Administration Pain Pantoprazole Sodium 40 mg 07/29/24 06:30 07/31/24 05:52 Pantoprazole 40 Mg Tablet. PO 07/29/25 06:29 40 mg DAILY@0630 TIMOTEO Administration Polyethylene Glycol 17 gm 07/29/24 09:00 07/31/24 08:31 Polyethylene Glycol 3350 17 Gm Powd.Pack PO 07/29/25 08:59 17 gm DAILY TIMOTEO Administration Prednisone 10 mg 07/29/24 09:00 07/31/24 08:32 Prednisone 10 Mg Tablet PO 07/29/25 08:59 10 mg DAILY TIMOTEO Administration Sennosides 17.2 mg 07/29/24 12:00 07/29/24 22:21 Sennosides 8.6 Mg Tablet PO 07/29/25 11:59 17.2 mg DAILY@12 PRN Administration If no BM in 2 days Sodium Chloride 0 ml 07/28/24 15:56 Sodium Chloride 0.9 % 10 Ml Syringe IV-PUSH 07/28/25 15:55 PRN PRN Flush Spironolactone 25 mg 07/29/24 09:00 07/31/24 08:31 Spironolactone 25 Mg Tablet PO 07/29/25 08:59 25 mg DAILY TIMOTEO Administration Vitamin D 50 mcg 07/29/24 09:00 07/31/24 08:31 Cholecalciferol 25 Mcg (1,000 Units) Tablet PO 07/29/25 08:59 50 mcg DAILY TIMOTEO Administration Assessment/Plan Assessment/Plan (1) Status post total left knee replacement: Plan: PT to improve pt's strength, endurance, bed mobility, transfers (sit-stand), standing balance, gait quality on level surfaces and stairs, coordination and functional ADL skills. Will also work to improve pt's safety awareness during transfers and ambulation. OT for basic ADL re-training (bathing, dressing, toileting, continence, grooming, feeding, transferring), to increase activity tolerance and functional mobility and to evaluate for adaptive and assistive devices. Will work to improve pt's endurance and educate pt on fall prevention and energy conservationtechniques-pacing strategies and proper breathing techniques during functional tasks. Patient education Pressure ulcer prophylaxis; encourage mobilization, frequent postural changes, pressure-relief techniques DVT prophylaxis Encourage deep breathing exercise incentive spirometry. Monitor bladder. Toileting schedule. Continue current bladder management, with scans as needed and CIC if needed. Start bowel care program every day to obtain continence, prevent ileus. Maintain fall precautions Gait and balance retraining Provision of the necessary gait aids and functional adaptive equipment to enhance the patient's a functional adventist Encourage deep breathing exercises and incentive spirometry RD evaluation Ensure adequate nutrition and hydration Discharge planning. (2) Impaired mobility and activities of daily living: (3) Anemia: (4) Irritable bowel syndrome with constipation: (5) Osteoporosis without current pathological fracture: (6) Chronic pain: (7) CHF (congestive heart failure): (8) Sleep apnea: (9) History of revision of total replacement of right knee joint: (10) Hypertension: (11) Hypothyroidism: (12) CKD (chronic kidney disease): Plan Ms. Bradford is a 84 year old female with multiple complex medical comorbidities including CHF status post CABG, CKD, sleep apnea, hypertension, and history of right total knee arthroplasty status post revision presenting with functional decline after left total knee arthroplasty. -Eric wrap to the left lower extremity to help with swelling. Keep leg elevated when possible. -Continue current pain regimen. -Progressing towards functional baseline in therapy. Home on Saturday. Hospitalist to assist with management of comorbid medical conditions Pain control: Wean opioids. Bowel and bladder: Continent. Skin: Turn and position for offloading. Monitor op site. Sleep: Optimize sleep/wake cycle. DVT prophylaxis: Anticoagulated with Eliquis. Functional status: Impaired see PT/OT. Discharge planning: Home as early as weekend v. early next week-caregiver for with dementia. I spent 17 minutes for services, including [id number] encounter with the patient, discussion of the case, plan of care, and exam; and [id number] activities, such as reviewing pertinent environmental remediation consultant documentation, recent therapynotes, laboratory and radiology studies, and discussion of case with care team including physician, nursing, patient case coordinator, and therapists. More than 50 % of time was spent on patient/family counseling or coordination ofcare. <Statement entered by Herb Lara MD - 08/01/24 11:27> This documentation has been reviewed and approved. Documented By: Alysia Patrick APRN 07/31/24 1 402 Signed By: <Electronically signed by ALYSSA Patrick> 07/31/24 1407 <Electronically signed by Herb Lara MD> 08/01/24 [facility] Work Phone: 1(131) 790-968102-01-2025 Progress noteFIRELANDMartin Ville [id number] Physiatry(Rehab) Progress Note Signed Patient: Jemima Bradford MR#: [id number] : 1940 Acct:[id number] Age/Sex: 84 / F Adm Date: 5 Loc: 5T Room: [address] [place] [address] Type: ADM IN Attending Dr: Tuan Farrell MD Copies to: ~ Date of Service: 07/31/2024 Subjective Subjective Narrative: Ms. Bradford is a 84 year old female with multiple complex medical comorbidities including CHF status post CABG, CKD, sleep apnea, hypertension, and history of right total knee arthroplasty status post revision presenting with functional decline after left total knee arthroplasty. 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 She has apprehension regarding her recovery as she says her right total knee was messed up her prior orthopedic surgeon at [facility] and required revision surgery at [facility]. We reviewed her labs and her medications. She has good understanding of her comorbidities. Interval history: Patient examined while resting in bed. She appears in no distress. Pain in theleft knee is adequately controlled on current regimen. She reports no muscle spasms. Operative leg does appear somewhat edematous, we will have nursing apply Eric wrap. She has no calf pain with this. Patient does admit to some shortness of breath which is chronic due to asthma and CHF, it is not any worse than usual. She maintains adequate SpO2 saturations on room air. Lung sounds are clear to auscultation bilaterally. She is doing fairly well functionally. Ambulatory 400 feet with a walker and SBA/CGA. Contact-guardassist/SBA with transfers. She wants to go home over the weekend, concerned about her demented who is usually under her supervision. Review of Systems Review of Systems All other systems reviewed & are negative unless noted below or in HPI Exam Physical Exam Vital Signs: Temp Pulse Resp BP Pulse Ox O2 Del Method 97.8 F 86 20 108/69 96 Room Air 07/31/24 06:06 07/31/24 08:26 07/31/24 08:26 07/31/24 08:26 07/31/24 08:26 07/31/24 08:26 Narrative: General: Awake, alert, oriented x3 HENT: Normal to inspection, normocephalic, atraumatic Eyes: PERRL, normal conjunctiva and sclera Neck: Normal ROM, normal visual inspection. Trachea midline. Cardio: Regular heart rate and rhythm. Heart murmur. Respiratory: Clear to auscultation bilaterally. Normal respiratory effort. No respiratory distress. GI: Abdomen soft, nontender, nondistended, active bowel sounds x4 quadrants Neuro: CN II-XII intact. Strength 5/5, equal bilaterally Extremities: Left lower extremity edema, pitting. No pain to palpation. No erythema. Psych: Mood and affect appropriate. Normal speech. Objective Labs 07/29/24 04:51 07/29/24 04:51 Medications and Allergies Allergies and Active Meds: Allergies Iodinated Contrast Media (Iodinated Contrast- Oral and IV Dye) Allergy (Severe, Verified 07/27/24 10:25) Anaphylaxis adhesive tape (Tape) Allergy (Unknown, Verified 07/16/24 10:01) Blister chlorpromazine (From Thorazine) Allergy (Unknown, Verified 07/16/24 10:01) Hives clarithromycin (From Biaxin) Allergy (Unknown, Verified 07/16/24 10:01) Unknown Reaction hylan G-F 20 (From Synvisc) Allergy (Unknown, Verified 07/16/24 10:01) Itching, swelling nickel Allergy (Unknown, Verified 07/16/24 10:01) Swelling nitrous oxide Allergy (Unknown, Verified 07/16/24 10:01) Vomiting simvus Allergy (Unknown, Uncoded 06/02/24 10:03) Unknown Reaction metal Allergy (Uncoded 06/02/24 10:03) Edema Active Medications Generic Name Dose Route Start Last Admin Trade Name Freq PRN Reason Stop Dose Admin Acetaminophen 1,000 mg 07/28/24 22:00 07/31/24 05:52 Acetaminophen 500 Mg Tablet PO 07/28/25 21:59 1,000 mg Q8H TIMOTEO Administration Al Hydrox/Mg Hydrox/Simethicone 30 ml 07/28/24 15:56 Mag Hydrox/Al Hydrox/Simeth 30 Ml Udc PO 07/28/25 15:55 Q4H PRN Indigestion Albuterol 1 puff 07/28/24 16:09 Albuterol Hfa 60 Puff/8 Gram Inhaler INHALATION 07/28/25 16:08 Q4H PRN Shortness Of Breath Or Wheezing Anastrozole 1 mg 07/30/24 22:00 07/31/24 00:02 Anastrozole 1 Mg Tablet PO 07/30/25 21:59 1 mg QHS TIMOTEO Administration Apixaban 5 mg 07/28/24 21:00 07/31/24 08:31 Apixaban 5 Mg Tablet PO 07/28/25 20:59 5 mg BID TIMOTEO Administration Ascorbic Acid 500 mg 07/29/24 09:00 07/31/24 08:31 Ascorbic Acid 500 Mg Tablet PO 07/29/25 08:59 500 mg DAILY TIMOTEO Administration Atorvastatin Calcium 80 mg 07/28/24 22:00 07/30/24 21:41 Atorvastatin 80 Mg Tablet PO 07/28/25 21:59 80 mg HS TIMOTEO Administration Bisacodyl 10 mg 07/28/24 15:56 Bisacodyl 10 Mg Supp.Rect HI 07/28/25 15:55 DAILY PRN Constipation Budesonide/Formoterol Fumarate 2 puff 07/28/24 21:00 07/31/24 06:28 Budesonide/Formoterol 160-4.5 Mcg 60 Puff/6 Gm Hfa.Aer.Ad INHALATION 07/28/25 20:59 2 puff BID TIMOTEO Administration Bumetanide 1 mg 07/29/24 09:00 07/31/24 08:31 Bumetanide 1 Mg Tablet PO 07/29/25 08:59 1 mg QAM TIMOTEO Administration Cefadroxil 500 mg 07/28/24 21:00 07/31/24 08:31 Cefadroxil 500 Mg Capsule PO 08/03/24 09:01 500 mg Q12H TIMOTEO Administration Docusate Sodium 100 mg 07/28/24 15:56 07/29/24 22:21 Docusate 100 Mg Capsule PO 07/28/25 15:55 100 mg BID PRN Administration Constipation Docusate Sodium 283 mg 07/28/24 15:56 Docusate Enema 283 Mg/5 Ml Enema HI 07/28/25 15:55 DAILY PRN Constipation Duloxetine HCl 30 mg 07/28/24 21:00 07/30/24 21:41 Duloxetine 30 Mg Capsule.Dr PO 07/28/25 20:59 30 mg QPM TIMOTEO Administration Ferrous Sulfate 324 mg 07/29/24 09:00 07/31/24 08:31 Ferrous Sulfate 324 Mg Tablet. PO 07/29/25 08:59 324 mg DAILY TIMOTEO Administration Lactulose 30 gm 07/28/24 15:56 Lactulose 20 Gm/30 Ml Udc PO 07/28/25 15:55 DAILY PRN Constipation Levothyroxine Sodium 50 mcg 07/29/24 06:30 07/31/24 05:52 Levothyroxine 50 Mcg Tablet PO 07/29/25 06:29 50 mcg DAILY@0630 TIMOTEO Administration Linaclotide 72 mcg 07/29/24 23:00 07/30/24 21:41 Linaclotide 72 Mcg Capsule PO 07/29/25 22:59 72 mcg QPM TIMOTEO Administration Melatonin 5 mg 07/28/24 22:00 07/30/24 21:41 Melatonin 5 Mg Tablet PO 07/28/25 21:59 5 mg QHS TIMOTEO Administration Metoprolol Tartrate 12.5 mg 07/28/24 21:00 07/31/24 08:32 Metoprolol Tartrate 12.5 Mg Tablet PO 07/28/25 20:59 12.5 mg BID TIMOTEO Administration Montelukast Sodium 10 mg 07/29/24 09:00 07/31/24 08:32 Montelukast 10 Mg Tablet PO 07/29/25 08:59 10 mg QAM TIMOTEO Administration Nitroglycerin 0.4 mg 07/28/24 16:10 Nitroglycerin 0.4 Mg Tab.Subl SUBLINGUAL 07/28/25 16:09 Q5MIN.X3 PRN Pain Ondansetron HCl 4 mg 07/28/24 17:15 Ondansetron Odt 4 Mg Tab.Rapdis PO 07/28/25 17:14 Q8H PRN Nausea Oxycodone HCl 5 mg 07/28/24 16:10 07/31/24 08:31 Oxycodone Ir 5 Mg Tablet PO 5 mg Q4H PRN Administration Pain Pantoprazole Sodium 40 mg 07/29/24 06:30 07/31/24 05:52 Pantoprazole 40 Mg Tablet. PO 07/29/25 06:29 40 mg DAILY@0630 TIMOTEO Administration Polyethylene Glycol 17 gm 07/29/24 09:00 07/31/24 08:31 Polyethylene Glycol 3350 17 Gm Powd.Pack PO 07/29/25 08:59 17 gm DAILY TIMOTEO Administration Prednisone 10 mg 07/29/24 09:00 07/31/24 08:32 Prednisone 10 Mg Tablet PO 07/29/25 08:59 10 mg DAILY TIMOTEO Administration Sennosides 17.2 mg 07/29/24 12:00 07/29/24 22:21 Sennosides 8.6 Mg Tablet PO 07/29/25 11:59 17.2 mg DAILY@12 PRN Administration If no BM in 2 days Sodium Chloride 0 ml 07/28/24 15:56 Sodium Chloride 0.9 % 10 Ml Syringe IV-PUSH 07/28/25 15:55 PRN PRN Flush Spironolactone 25 mg 07/29/24 09:00 07/31/24 08:31 Spironolactone 25 Mg Tablet PO 07/29/25 08:59 25 mg DAILY TIMOTEO Administration Vitamin D 50 mcg 07/29/24 09:00 07/31/24 08:31 Cholecalciferol 25 Mcg (1,000 Units) Tablet PO 07/29/25 08:59 50 mcg DAILY TIMOTEO Administration Assessment/Plan Assessment/Plan (1) Status post total left knee replacement: Plan: PT to improve pt's strength, endurance, bed mobility, transfers (sit-stand), standing balance, gaitquality on level surfaces and stairs, coordination and functional ADL skills. Will also work to improve pt's safety awareness during transfers and ambulation. OT for basic ADL re-training (bathing, dressing, toileting, continence, grooming, feeding, transferring), to increase activity tolerance and functional mobility and to evaluate for adaptive and assistive devices. Will work to improve pt's endurance and educate pt on fall prevention and energy conser vationtechniques-pacing strategies and proper breathing techniques during functional tasks. Patient education Pressure ulcer prophylaxis; encourage mobilization, frequent postural changes, pressure-relief techniques DVT prophylaxis Encourage deep breathing exercise incentive spirometry. Monitor bladder. Toileting schedule. Continue current bladder management, with scans as needed and CIC if needed. Start bowel care program every day to obtain continence, prevent ileus. Maintain fall precautions Gait and balance retraining Provision of the necessary gait aids and functional adaptive equipment to enhance the patient's a functional adventist Encourage deep breathing exercises and incentive spirometry RD evaluation Ensure adequate nutrition and hydration Discharge planning. (2) Impaired mobility and activities of daily living: (3) Anemia: (4) Irritable bowel syndrome with constipation: (5) Osteoporosis without current pathological fracture: (6) Chronic pain: (7) CHF (congestive heart failure): (8) Sleep apnea: (9) History of revision of total replacement of right knee joint: (10) Hypertension: (11) Hypothyroidism: (12) CKD (chronic kidney disease): Plan Ms. Bradford is a 84 year old female with multiple complex medical comorbidities including CHF status post CABG, CKD, sleep apnea, hypertension, and history of right total knee arthroplasty status post revision presenting with functional decline after left total knee arthroplasty. -Eric wrap to the left lower extremity to help with swelling. Keep leg elevated when possible. -Continue current pain regimen. -Progressing towards functional baseline in therapy. Home on Saturday. Hospitalist to assist with management of comorbid medical conditions Pain control: Wean opioids. Bowel and bladder: Continent. Skin: Turn and position for offloading. Monitor op site. Sleep: Optimize sleep/wake cycle. DVT prophylaxis: Anticoagulated with Eliquis. Functional status: Impaired see PT/OT. Discharge planning: Home as early as weekend v. early next week-caregiver for with dementia. I spent 17 minutes for services, including [id number] encounter with the patient, discussion of the case, plan of care, and exam; and [id number] activities, such as reviewing pertinent environmental remediation consultant documentation, recent therapynotes, laboratory and radiology studies, and discussion of case with care team including physician, nursing, patient case coordinator, and therapists. More than 50 % of time was spent on patient/family counseling or coordination ofcare. This documentation has been reviewed and approved. Documented By: Alysia Patrick APRN 07/31/24 1 402 Signed By: 07/31/24 1407 08/01/24 1127 [facility]01-30-2025 Consult note Author Emily Lawrence [facility] Note Date/Time July 30, 2024 5 :35pm [facility] [address] [place] [address] Hospitalist Consult Note Signed Patient: Jemima Bradford MR#: [id number] : 1940 Acct:[id number] Age/Sex: 84 / F Adm Date: 5 Loc: Room: 2N8196-4 Type: ADM IN Attending Dr: Tuan Farrell MD Copies to: MD Emily Jiang APRN Rafik Massouh, MD Susan M Krebs, APRN, LAMBSKIN TRIMMER~ HPI DATE OF CONSULTATION: 07/29/24 REQUESTING PROVIDER: Tuan Farrell Consult Narrative Reason for Consult: Hypertension HPI: 84-year-old female past medical history significant for heart failure, CAD history CABG, CKD3, JENNIFER, hypertension, hypothyroid, lung cancer, breast cancer, polymyalgia rheumatica, history A-fib, IBS, asthma, history CVA. Patient initially presented to the hospital July 27 for elective left total knee arthroplasty. She had no reported postoperative complications. She was seen bytherapy services with recommendations for ongoing rehab, subsequently dischargedacute inpatient rehab unit July 28. Hospitalist team is now consulted for ongoing management of hypertension. Patient seen and examined. She endorses postoperative left knee pain is anticipated. Denies chest pain or palpitations. No cough, dyspnea, or pain with inspiration. No abdominal pain or indigestion, constipation or diarrhea, nausea or vomiting. No dysuria or retention. No headache or dizziness. No fevers or chills. Review of Systems Review of Systems All other systems reviewed & are negative unless noted below or in HPI [facility] Medical History History of ankle fracture left with repair, plates and screws Left knee pain Wears hearing aid in both ears Stress incontinence in female Gaviria esophagus Hypothyroidism Right hip pain Left knee pain Chronic pain Lung cancer Polymyalgia rheumatica Abnormal colonoscopy history of polyps Breast cancer right side History of cataract Kidney stones Stage 3 chronic kidney disease dx 2020 GERD (gastroesophageal reflux disease) CHF (congestive heart failure) since having the CABG History of atrial fibrillation Murmur Arthritis IBS (irritable bowel syndrome) Hiatal hernia Sleep apnea cpap History of revision of total replacement of right knee joint Trigger finger Asthma Hypertension CVA (cerebral vascular accident) Surgical History Status post total left knee replacement History of tubal ligation History of lumpectomy of right breast and radiation for breast cancer History of phacoemulsification of cataract of both eyes with intraocular lens implantation History of cardiac catheterization stents History of thoracotomy part of left lung removed History of cystoscopy H/O cardiac radiofrequency ablation 2020 Aortic valve replaced done at time of CABG Hx of CABG x 1 done 11/2019 History of total right knee replacement x 2 Problem List clean-up per request of Phys. EHR Cmte History of bunionectomy History of cholecystectomy History of arthroscopy of both knees H/O abdominoplasty History of carpal tunnel release of both wrists bilaterally Problem List clean-up per request of Phys. EHR Cmte H/O lithotripsy History of appendectomy History of tonsillectomy and adenoidectomy Family History Mother H/O endarterectomy H/O angioplasty Pancreatic cancer Pacemaker Diabetes Father H/O endarterectomy Hx of CABG Stroke Diabetes Heart disease Brother Bladder cancer Hx of CABG Sister Breast cancer Sister Breast cancer Brother Diabetes Legacy FamHx Relation: Brother(s) Exposure to Agent Irion Legacy FamHx Relation: Brother(s) Pacemaker Father No problems noted. Mother No problems noted. Sister No problems noted. Social History Smoking Status: Former smoker Tobacco Type: cigarettes Substance Use Type: None Social History Comments: several cysto's cardiac cath with stent multiple D&C's several colonoscopies wirh polypectomies another cardiac cath uses cpap cysto urethral laser with stone removal with stent Meds Medications and Allergies Allergies Iodinated Contrast Media (Iodinated Contrast- Oral and IV Dye) Allergy (Severe, Verified 07/27/24 10:25) Anaphylaxis adhesive tape (Tape) Allergy (Unknown, Verified 07/16/24 10:01) Blister chlorpromazine (From Thorazine) Allergy (Unknown, Verified 07/16/24 10:01) Hives clarithromycin (From Biaxin) Allergy (Unknown, Verified 07/16/24 10:01) Unknown Reaction hylan G-F 20 (From Synvisc) Allergy (Unknown, Verified 07/16/24 10:01) Itching, swelling nickel Allergy (Unknown, Verified 07/16/24 10:01) Swelling nitrous oxide Allergy (Unknown, Verified 07/16/24 10:01) Vomiting simvus Allergy (Unknown, Uncoded 06/02/24 10:03) Unknown Reaction metal Allergy (Uncoded 06/02/24 10:03) Edema Home Medications albuterol sulfate 90 mcg/actuation aerosol inhaler 1 puff inhalation Q4-6H PRN Shortness Of Breath Or Wheezing 02/06/18 [History Confirmed 07/28/24] chromium picolinate 1,000 mcg tablet 500 mcg PO DAILY blood sugar 02/06/18 [History Confirmed 07/16/24] melatonin 10 mg tablet 5 mg PO HS PRN Sleep 02/06/18 [History Confirmed 07/28/24] metoprolol tartrate 25 mg tablet 12.5 mg PO BID 02/06/18 [History Confirmed 07/28/24] nitroglycerin 0.4 mg sublingual tablet 0.4 mg sublingual Q5MIN PRN Pain 02/06/18[History Confirmed 07/28/24] rosuvastatin 40 mg tablet 40 mg PO HS 11/10/18 [History Confirmed 07/28/24] coenzyme Q10 100 mg capsule (Co Q-10) 100 mg PO QHS 06/13/20 [History Confirmed 07/28/24] spironolactone 25 mg tablet (Aldactone) 25 mg PO DAILY 06/13/20 [History Confirmed 07/28/24] anastrozole 1 mg tablet 1 mg PO DAILY 01/16/23 [History Confirmed 07/28/24] apixaban 5 mg tablet (Eliquis) 5 mg PO BID 01/16/23 [History Confirmed 07/28/24] calcium 600 mg (as carbonate)-vitamin D3 5 mcg (200 unit) capsule (Calcium 600 +D(3)) 1 cap PO DAILY 01/16/23 [History Confirmed 07/16/24] levothyroxine 50 mcg tablet 50 mcg PO QAM 01/16/23 [History Confirmed 07/28/24] linaclotide 290 mcg capsule (Linzess) 72 mcg PO DAILY.0730A 01/16/23 [History Confirmed 07/28/24] magnesium 250 mg tablet 600 mg PO DAILY 01/16/23 [History Confirmed 07/16/24] montelukast 10 mg tablet 10 mg PO QAM 01/16/23 [History Confirmed 07/28/24] bumetanide 1 mg PO QAM 09/04/23 [History Confirmed 07/28/24] Lactobacillus rhamnosus-Bifidobac. animalis 3 billion cell capsule (Weave) 1 cap PO DAILY 06/15/24 [History Confirmed 07/16/24] duloxetine 30 mg capsule,delayed release 30 mg PO QPM 07/13/24 [History Confirmed 07/28/24] esomeprazole magnesium 40 mg capsule,delayed release 40 mg PO QAM 07/13/24 [History Confirmed 07/28/24] fluticasone furoate 200 mcg-vilanterol 25 mcg/dose inhalation powder (Breo Ellipta) 1 inh inhalation QAM 07/13/24 [History Confirmed 07/28/24] inulin-sorbitol 2 gram chewable tablet (Fiber Supplement (inulin)) 5 tab PO DAILY 07/13/24 [History Confirmed 07/16/24] acetaminophen 500 mg tablet 1,000 mg (2 x 500 mg) PO Q8H 30 days #180 tabs 07/16/24 [Rx Confirmed 07/28/24] Rx Discharge Order Notice 1 ea miscellaneous ONCE ##0 07/30/24 [Rx] ascorbic acid (vitamin C) 500 mg tablet (Vitamin C) 500 mg PO daily 90 days #90 caps 07/30/24 [Rx] cholecalciferol (vitamin D3) 50 mcg (2,000 unit) capsule (Vitamin D3) 25 mcg (1/2 x 50 mcg (2,000 unit)) PO DAILY 90 days #45 caps 07/30/24 [Rx] ferrous sulfate 324 mg (65 mg iron) tablet,delayed release 324 mg PO DAILY 90 days #90 tabs 07/30/24 [Rx] oxycodone 5 mg tablet 5 mg PO Q6H PRN Pain 7 days #28 tabs 07/30/24 [Rx] polyethylene glycol 3350 17 gram/dose oral powder (Miralax) 17 g PO daily 30 days #1 ea 07/30/24 [Rx] sennosides 8.6 mg-docusate sodium 50 mg tablet (Senokot-S) 2 tab PO daily 30 days #60 tabs 07/30/24 [Rx] Active Medications: Active Medications Generic Name Dose Route Start Last Admin Trade Name Freq PRN Reason Stop Dose Admin Acetaminophen 1,000 mg 07/28/24 22:00 07/29/24 13:04 Acetaminophen 500 Mg Tablet PO 07/28/25 21:59 1,000 mg Q8H TIMOTEO Administration Al Hydrox/Mg Hydrox/Simethicone 30 ml 07/28/24 15:56 Mag Hydrox/Al Hydrox/Simeth 30 Ml Udc PO 07/28/25 15:55 Q4H PRN Indigestion Albuterol 1 puff 07/28/24 16:09 Albuterol Hfa 60 Puff/8 Gram Inhaler INHALATION 07/28/25 16:08 Q4H PRN Shortness Of Breath Or Wheezing Anastrozole 1 mg 07/30/24 22:00 Anastrozole 1 Mg Tablet PO 07/30/25 21:59 QHS TIMOTEO Apixaban 5 mg 07/28/24 21:00 07/29/24 08:38 Apixaban 5 Mg Tablet PO 07/28/25 20:59 5 mg BID TIMOTEO Administration Ascorbic Acid 500 mg 07/29/24 09:00 07/29/24 08:38 Ascorbic Acid 500 Mg Tablet PO 07/29/25 08:59 500 mg DAILY TIMOTEO Administration Atorvastatin Calcium 80 mg 07/28/24 22:00 07/28/24 22:03 Atorvastatin 80 Mg Tablet PO 07/28/25 21:59 Not Given HS TIMOTEO Bisacodyl 10 mg 07/28/24 15:56 Bisacodyl 10 Mg Supp.Rect HI 07/28/25 15:55 DAILY PRN Constipation Budesonide/Formoterol Fumarate 2 puff 07/28/24 21:00 07/29/24 05:53 Budesonide/Formoterol 160-4.5 Mcg 60 Puff/6 Gm Hfa.Aer.Ad INHALATION 07/28/25 20:59 2 puff BID TIMOTEO Administration Bumetanide 1 mg 07/29/24 09:00 07/29/24 09:37 Bumetanide 1 Mg Tablet PO 07/29/25 08:59 1 mg QAM TIMOTEO Administration Cefadroxil 500 mg 07/28/24 21:00 07/29/24 08:39 Cefadroxil 500 Mg Capsule PO 08/03/24 09:01 500 mg Q12H TIMOTEO Administration Docusate Sodium 100 mg 07/28/24 15:56 07/29/24 08:39 Docusate 100 Mg Capsule PO 07/28/25 15:55 100 mg BID PRN Administration Constipation Docusate Sodium 283 mg 07/28/24 15:56 Docusate Enema 283 Mg/5 Ml Enema HI 07/28/25 15:55 DAILY PRN Constipation Duloxetine HCl 30 mg 07/28/24 21:00 07/28/24 20:50 Duloxetine 30 Mg Capsule. PO 07/28/25 20:59 30 mg QPM TIMOTEO Administration Ferrous Sulfate 324 mg 07/29/24 09:00 07/29/24 08:39 Ferrous Sulfate 324 Mg Tablet. PO 07/29/25 08:59 324 mg DAILY TIMOTEO Administration Lactulose 30 gm 07/28/24 15:56 Lactulose 20 Gm/30 Ml Udc PO 07/28/25 15:55 DAILY PRN Constipation Levothyroxine Sodium 50 mcg 07/29/24 06:30 07/29/24 05:30 Levothyroxine 50 Mcg Tablet PO 07/29/25 06:29 Not Given DAILY@0630 TIMOTEO Linaclotide 72 mcg 07/29/24 07:30 07/29/24 06:56 Linaclotide 72 Mcg Capsule PO 07/29/25 07:29 Not Given DAILY.0730A [facility] Melatonin 5 mg 07/28/24 22:00 07/28/24 22:03 Melatonin 5 Mg Tablet PO 07/28/25 21:59 Not Given QHS TIMOTEO Metoprolol Tartrate 12.5 mg 07/28/24 21:00 07/29/24 08:39 Metoprolol Tartrate 12.5 Mg Tablet PO 07/28/25 20:59 12.5 mg BID TIMOTEO Administration Montelukast Sodium 10 mg 07/29/24 09:00 07/29/24 08:39 Montelukast 10 Mg Tablet PO 07/29/25 08:59 10 mg QAM TIMOTEO Administration Nitroglycerin 0.4 mg 07/28/24 16:10 Nitroglycerin 0.4 Mg Tab.Subl SUBLINGUAL 07/28/25 16:09 Q5MIN.X3 PRN Pain Ondansetron HCl 4 mg 07/28/24 17:15 Ondansetron Odt 4 Mg Tab.Rapdis PO 07/28/25 17:14 Q8H PRN Nausea Oxycodone HCl 5 mg 07/28/24 16:10 07/29/24 13:04 Oxycodone Ir 5 Mg Tablet PO 5 mg Q4H PRN Administration Pain Pantoprazole Sodium 40 mg 07/29/24 06:30 07/29/24 05:29 Pantoprazole 40 Mg Tablet. PO 07/29/25 06:29 40 mg DAILY@0630 TIMOTEO Administration Polyethylene Glycol 17 gm 07/29/24 09:00 07/29/24 08:40 Polyethylene Glycol 3350 17 Gm Powd.Pack PO 07/29/25 08:59 17 gm DAILY TIMOTEO Administration Prednisone 10 mg 07/29/24 09:00 07/29/24 08:39 Prednisone 10 Mg Tablet PO 07/29/25 08:59 10 mg DAILY TIMOTEO Administration Sennosides 17.2 mg 07/29/24 12:00 Sennosides 8.6 Mg Tablet PO 07/29/25 11:59 DAILY@12 PRN If no BM in 2 days Sodium Chloride 0 ml 07/28/24 15:56 Sodium Chloride 0.9 % 10 Ml Syringe IV-PUSH 07/28/25 15:55 PRN PRN Flush Spironolactone 25 mg 07/29/24 09:00 07/29/24 08:38 Spironolactone 25 Mg Tablet PO 07/29/25 08:59 25 mg DAILY TIMOTEO Administration Vitamin D 50 mcg 07/29/24 09:00 07/29/24 08:38 Cholecalciferol 25 Mcg (1,000 Units) Tablet PO 07/29/25 08:59 50 mcg DAILY TIMOTEO Administration Exam Physical Exam Vital Signs: Temp Pulse Resp BP Pulse Ox O2 Del Method 98.0 F 76 16 133/69 95 Room Air 07/29/24 14:01 07/29/24 14:01 07/29/24 14:01 07/29/24 14:01 07/29/24 14:01 07/29/24 14:01 Narrative: CONST- alert, in bed, frail elderly HEAD- normocephalic and atraumatic EENT- sclera nonicteric and conjunctiva nonerythemic, moist oral mucosa, pharynx not visualized NECK- supple, no cervical lymphadenopathy CARDIAC- RRR no abnormal heart tones PULM- diminished without wheeze or rhonchi, RA, no accessory muscle use or cough noted ABD- S/NT, NABS EXTREM-1+ edema BLE, calves nontender SKIN- W/D, good turgor, left knee VAC dressing MS- MAEx4 spontaneously with equal strength NEURO- A&Ox3, speech clear and tongue midline, equal facial symmetry PSYCH-mood and behavior appropriate Results - Hospitalist Consult Lab Results Labs: Laboratory Results - last 72 hr 07/29/24 04:51: Corrected WBC 7.5, Uncorrected WBC Count 7.5, RBC 3.43 L, Hgb 9.5 L, Hct 28.3 L, MCV 82.7, MCH 27.7, MCHC 33.5, RDW 18.1 H, Plt Count 149 L, MPV 8.3, Neut % (Auto) 62.5, Lymph % (Auto) 22.5, Dundy % (Auto) 13.0, Eos % (Auto) 1.4, Baso % (Auto) 0.6, Nucleat RBC Rel Count 0.1, Neut # (Auto) 4.7, Lymph # (Auto) 1.7, Dundy # (Auto) 1.0 H, Eos # (Auto) 0.1, Baso # (Auto) 0.0, PHA Creatinine Clear 37.33, Sodium 141, Potassium 3.8, Chloride 107, Carbon Dioxide 29.2, Anion Gap 8.6, BUN 26 H, Creatinine 1.22 H, Est GFR (CKD-EPI) 44.032, Glucose 111 H, Calcium 9.0, Total Bilirubin 0.7, AST 20, ALT 8, Alkaline Phosphatase 64, Total Protein 5.9 L, Albumin 3.6, Globulin 2.3, Albumin/Globulin Ratio 1.6, Prealbumin 18.3 Assessment & Plan Assessment/Plan (1) CHF (congestive heart failure): (2) Hypertension: (3) Sleep apnea: (4) Hypothyroidism: (5) Status post total left knee replacement: (6) GERD (gastroesophageal reflux disease): Plan s/p Left knee arthroplasty 07/27/24 postoperative anemia -further plan of care per PMR team for rehabilitative therapy, pain control & bowel regimen, DVT prophylaxis, surgical wound care -please defer postoperative questions/ concerns to ortho team, vitamin/ mineral therapy antibiotic steroid per ortho preference -preop hemoglobin 11.7 chronic conditions 1. Hx breast CA- anastrozole 2. Paroxysmal Afib on chronic anticoagulation- apixaban, metoprolol 3. HLD- atorvastatin 4. Asthma- Albuterol prn, Budesonide/ Formoterol, montelukast. Stable respiratory status 5. Heart failure unspecified, Hypertension- Bumetanide, Metoprolol, spironolactone. BP reviewed and controlled 6. Chronic pain- duloxetine 7. Hypothyroid- levothyroxine 8. IBS-C- Linaclotide 9. GERD- pantoprazole Thank you for consulting us to see this pt. I will be off service starting Saturday evening. Case will be handled by one of my partners if needed. Pt is fairly stable at this time. We will follow pt on an as needed basis. Please call or alert hospitalist if pt develops any signs or symptoms that may require medical evaluation and or intervention. Please arrange for pt after discharge follow up appts with PCP and other specialists. I may or may not have addressed all of patient symptoms, abnormal labs and imaging during this hospitalization. Please ask patient to ask PCP and out patient providers to obtain [facility] record entirely to follow up on illnesses, symptoms, abnormal findings that I have and have not addressed during this encounter and hospitalization in out patient setting. Documented By: Emily Lawrence APRN 07/02 03/25 1711 Signed By: <Electronically signed by ALYSSA Lawrence> 07/29/24 1741 <Electronically signed by Manny Dupree MD> 07/30/24 1735 [facility] Work Phone: 1(254) 674-886301-30-2025 [place] [address] Hospitalist Consult Note Signed Patient: Jemima Bradford MR#: [id number] : 1940 Acct:[id number] Age/Sex: 84 / F Adm Date: 5 Loc: Room: [address] [place] [address] Type: ADM IN Attending Dr: Tuan Farrell MD Copies to: MD Emily Jiang APRN Rafik Massouh, MD Susan M Krebs, APRN, LAMBSKIN TRIMMER~ HPI DATE OF CONSULTATION: 07/29/24 REQUESTING PROVIDER: Tuan Farrell Consult Narrative Reason for Consult: Hypertension HPI: 84-year-old female past medical history significant for heart failure, CAD history CABG, CKD3, JENNIFER,hypertension, hypothyroid, lung cancer, breast cancer, polymyalgia rheumatica, history A-fib, IBS, asthma, history CVA. Patient initially presented to the hospital July 27 for elective left total knee arthroplasty. She had no reported postoperative complications. She was seen bytherapy services with recommendations for ongoing rehab, subsequently dischargedacute inpatient rehab unit July 28. Hospitalist team is now consulted for ongoing management of hypertension. Patient seen and examined. She endorses postoperative left knee pain is anticipated. Denies chest pain or palpitations. No cough, dyspnea, or pain with inspiration. No abdominal pain or indigestion, constipation or diarrhea, nausea or vomiting. No dysuria or retention. No headache or dizziness. No fevers or chills. Review of Systems Review of Systems All other systems reviewed & are negative unless noted below or in HPI [facility] Medical History History of ankle fracture left with repair, plates and screws Left knee pain Wears hearing aid in both ears Stress incontinence in female Gaviria esophagus Hypothyroidism Right hip pain Left knee pain Chronic pain Lung cancer Polymyalgia rheumatica Abnormal colonoscopy history of polyps Breast cancer right side History of cataract Kidney stones Stage 3 chronic kidney disease dx 2019 GERD (gastroesophageal reflux disease) CHF (congestive heart failure) since having the CABG History of atrial fibrillation Murmur Arthritis IBS (irritable bowel syndrome) Hiatal hernia Sleep apnea cpap History of revision of total replacement of right knee joint Trigger finger Asthma Hypertension CVA (cerebral vascular accident) Surgical History Status post total left knee replacement History of tubal ligation History of lumpectomy of right breast and radiation for breast cancer History of phacoemulsification of cataract of both eyes with intraocular lens implantation History of cardiac catheterization stents History of thoracotomy part of left lung removed History of cystoscopy H/O cardiac radiofrequency ablation 2020 Aortic valve replaced done at time of CABG Hx of CABG x 1 done 11/2019 History of total right knee replacement x 2 Problem List clean-up per request of Phys. EHR Cmte History of bunionectomy History of cholecystectomy History of arthroscopy of both knees H/O abdominoplasty History of carpal tunnel release of both wrists bilaterally Problem List clean-up per request of Phys. EHR Cmte H/O lithotripsy History of appendectomy History of tonsillectomy and adenoidectomy Family History Mother H/O endarterectomy H/O angioplasty Pancreatic cancer Pacemaker Diabetes Father H/O endarterectomy Hx of CABG Stroke Diabetes Heart disease Brother Bladder cancer Hx of CABG Sister Breast cancer Sister Breast cancer Brother Diabetes Legacy FamHx Relation: Brother(s) Exposure to Agent Irion Legacy FamHx Relation: Brother(s) Pacemaker Father No problems noted. Mother No problems noted. Sister No problems noted. Social History Smoking Status: Former smoker Tobacco Type: cigarettes Substance Use Type: None Social History Comments: several cysto's cardiac cath with stent multiple D&C's several colonoscopies wirh polypectomies another cardiac cath uses cpap cysto urethral laser with stone removal with stent Meds Medications and Allergies Allergies Iodinated Contrast Media (Iodinated Contrast- Oral and IV Dye) Allergy (Severe, Verified 07/27/24 10:25) Anaphylaxis adhesive tape (Tape) Allergy (Unknown, Verified 07/16/24 10:01) Blister chlorpromazine (From Thorazine) Allergy (Unknown, Verified 07/16/24 10:01) Hives clarithromycin (From Biaxin) Allergy (Unknown, Verified 07/16/24 10:01) Unknown Reaction hylan G-F 20 (From Synvisc) Allergy (Unknown, Verified 07/16/24 10:01) Itching, swelling nickel Allergy (Unknown, Verified 07/16/24 10:01) Swelling nitrous oxide Allergy (Unknown, Verified 07/16/24 10:01) Vomiting simvus Allergy (Unknown, Uncoded 06/02/24 10:03) Unknown Reaction metal Allergy (Uncoded 06/02/24 10:03) Edema Home Medications albuterol sulfate 90 mcg/actuation aerosol inhaler 1 puff inhalation Q4-6H PRN Shortness Of Breath Or Wheezing 02/06/18 [History Confirmed 07/28/24] chromium picolinate 1,000 mcg tablet 500 mcg PO DAILY blood sugar 02/06/18 [History Confirmed 07/16/24] melatonin 10 mg tablet 5 mg PO HS PRN Sleep 02/06/18 [History Confirmed 07/28/24] metoprolol tartrate 25 mg tablet 12.5 mg PO BID 02/06/18 [History Confirmed 07/28/24] nitroglycerin 0.4 mg sublingual tablet 0.4 mg sublingual Q5MIN PRN Pain 02/06/18[History Confirmed 07/28/24] rosuvastatin 40 mg tablet 40 mg PO HS 11/10/18 [History Confirmed 07/28/24] coenzyme Q10 100 mg capsule (Co Q-10) 100 mg PO QHS 06/13/20 [History Confirmed 07/28/24] spironolactone 25 mg tablet (Aldactone) 25 mg PO DAILY 06/13/20 [History Confirmed 07/28/24] anastrozole 1 mg tablet 1 mg PO DAILY 01/16/23 [History Confirmed 07/28/24] apixaban 5 mg tablet (Eliquis) 5 mg PO BID 01/16/23 [History Confirmed 07/28/24] calcium 600 mg (as carbonate)-vitamin D3 5 mcg (200 unit) capsule (Calcium 600 +D(3)) 1 cap PO DAILY 01/16/23 [History Confirmed 07/16/24] levothyroxine 50 mcg tablet 50 mcg PO QAM 01/16/23 [History Confirmed 07/28/24] linaclotide 290 mcg capsule (Linzess) 72 mcg PO DAILY.0730A 01/16/23 [History Confirmed 07/28/24] magnesium 250 mg tablet 600 mg PO DAILY 01/16/23 [History Confirmed 07/16/24] montelukast 10 mg tablet 10 mg PO QAM 01/16/23 [History Confirmed 07/28/24] bumetanide 1 mg PO QAM 09/04/23 [History Confirmed 07/28/24] Lactobacillus rhamnosus-Bifidobac. animalis 3 billion cell capsule (Weave) 1 cap PO DAILY 06/15/24 [History Confirmed 07/16/24] duloxetine 30 mg capsule,delayed release 30 mg PO QPM 07/13/24 [History Confirmed 07/28/24] esomeprazole magnesium 40 mg capsule,delayed release 40 mg PO QAM 07/13/24 [History Confirmed 07/28/24] fluticasone furoate 200 mcg-vilanterol 25 mcg/dose inhalation powder (Breo Ellipta) 1 inh inhalation QAM 07/13/24 [History Confirmed 07/28/24] inulin-sorbitol 2 gram chewable tablet (Fiber Supplement (inulin)) 5 tab PO DAILY 07/13/24 [HistoryConfirmed 07/16/24] acetaminophen 500 mg tablet 1,000 mg (2 x 500 mg) PO Q8H 30 days #180 tabs 07/16/24 [Rx Confirmed 07/28/24] Rx Discharge Order Notice 1 ea miscellaneous ONCE ##0 07/30/24 [Rx] ascorbic acid (vitamin C) 500 mg tablet (Vitamin C) 500 mg PO daily 90 days #90 caps 07/30/24 [Rx] cholecalciferol (vitamin D3) 50 mcg (2,000 unit) capsule (Vitamin D3) 25 mcg (1/2 x 50 mcg (2,000 unit)) PO DAILY 90 days #45 caps 07/30/24 [Rx] ferrous sulfate 324 mg (65 mg iron) tablet,delayed release 324 mg PO DAILY 90 days #90 tabs 07/30/24 [Rx] oxycodone 5 mg tablet 5 mg PO Q6H PRN Pain 7 days #28 tabs 07/30/24 [Rx] polyethylene glycol 3350 17 gram/dose oral powder (Miralax) 17 g PO daily 30 days #1 ea 07/30/24 [Rx] sennosides 8.6 mg-docusate sodium 50 mg tablet (Senokot-S) 2 tab PO daily 30 days #60 tabs 07/30/24[Rx] Active Medications: Active Medications Generic Name Dose Route Start Last Admin Trade Name Freq PRN Reason Stop Dose Admin Acetaminophen 1,000 mg 07/28/24 22:00 07/29/24 13:04 Acetaminophen 500 Mg Tablet PO 07/28/25 21:59 1,000 mg Q8H TIMOTEO Administration Al Hydrox/Mg Hydrox/Simethicone 30 ml 07/28/24 15:56 Mag Hydrox/Al Hydrox/Simeth 30 Ml Udc PO 07/28/25 15:55 Q4H PRN Indigestion Albuterol 1 puff 07/28/24 16:09 Albuterol Hfa 60 Puff/8 Gram Inhaler INHALATION 07/28/25 16:08 Q4H PRN Shortness Of Breath Or Wheezing Anastrozole 1 mg 07/30/24 22:00 Anastrozole 1 Mg Tablet PO 07/30/25 21:59 QHS TIMOTEO Apixaban 5 mg 07/28/24 21:00 07/29/24 08:38 Apixaban 5 Mg Tablet PO 07/28/25 20:59 5 mg BID TIMOTEO Administration Ascorbic Acid 500 mg 07/29/24 09:00 07/29/24 08:38 Ascorbic Acid 500 Mg Tablet PO 07/29/25 08:59 500 mg DAILY TIMOTEO Administration Atorvastatin Calcium 80 mg 07/28/24 22:00 07/28/24 22:03 Atorvastatin 80 Mg Tablet PO 07/28/25 21:59 Not Given HS TIMOTEO Bisacodyl 10 mg 07/28/24 15:56 Bisacodyl 10 Mg Supp.Rect HI 07/28/25 15:55 DAILY PRN Constipation Budesonide/Formoterol Fumarate 2 puff 07/28/24 21:00 07/29/24 05:53 Budesonide/Formoterol 160-4.5 Mcg 60 Puff/6 Gm Hfa.Aer.Ad INHALATION 07/28/25 20:59 2 puff BID TIMOTEO Administration Bumetanide 1 mg 07/29/24 09:00 07/29/24 09:37 Bumetanide 1 Mg Tablet PO 07/29/25 08:59 1 mg QAM TIMOTEO Administration Cefadroxil 500 mg 07/28/24 21:00 07/29/24 08:39 Cefadroxil 500 Mg Capsule PO 08/03/24 09:01 500 mg Q12H TIMOTEO Administration Docusate Sodium 100 mg 07/28/24 15:56 07/29/24 08:39 Docusate 100 Mg Capsule PO 07/28/25 15:55 100 mg BID PRN Administration Constipation Docusate Sodium 283 mg 07/28/24 15:56 Docusate Enema 283 Mg/5 Ml Enema HI 07/28/25 15:55 DAILY PRN Constipation Duloxetine HCl 30 mg 07/28/24 21:00 07/28/24 20:50 Duloxetine 30 Mg Capsule. PO 07/28/25 20:59 30 mg QPM TIMOTEO Administration Ferrous Sulfate 324 mg 07/29/24 09:00 07/29/24 08:39 Ferrous Sulfate 324 Mg Tablet. PO 07/29/25 08:59 324 mg DAILY TIMOTEO Administration Lactulose 30 gm 07/28/24 15:56 Lactulose 20 Gm/30 Ml Udc PO 07/28/25 15:55 DAILY PRN Constipation Levothyroxine Sodium 50 mcg 07/29/24 06:30 07/29/24 05:30 Levothyroxine 50 Mcg Tablet PO 07/29/25 06:29 Not Given DAILY@0630 TIMOTEO Linaclotide 72 mcg 07/29/24 07:30 07/29/24 06:56 Linaclotide 72 Mcg Capsule PO 07/29/25 07:29 Not Given DAILY.0730A [facility] Melatonin 5 mg 07/28/24 22:00 07/28/24 22:03 Melatonin 5 Mg Tablet PO 07/28/25 21:59 Not Given QHS TIMOTEO Metoprolol Tartrate 12.5 mg 07/28/24 21:00 07/29/24 08:39 Metoprolol Tartrate 12.5 Mg Tablet PO 07/28/25 20:59 12.5 mg BID TIMOTEO Administration Montelukast Sodium 10 mg 07/29/24 09:00 07/29/24 08:39 Montelukast 10 Mg Tablet PO 07/29/25 08:59 10 mg QAM TIMOTEO Administration Nitroglycerin 0.4 mg 07/28/24 16:10 Nitroglycerin 0.4 Mg Tab.Subl SUBLINGUAL 07/28/25 16:09 Q5MIN.X3 PRN Pain Ondansetron HCl 4 mg 07/28/24 17:15 Ondansetron Odt 4 Mg Tab.Rapdis PO 07/28/25 17:14 Q8H PRN Nausea Oxycodone HCl 5 mg 07/28/24 16:10 07/29/24 13:04 Oxycodone Ir 5 Mg Tablet PO 5 mg Q4H PRN Administration Pain Pantoprazole Sodium 40 mg 07/29/24 06:30 07/29/24 05:29 Pantoprazole 40 Mg Tablet. PO 07/29/25 06:29 40 mg DAILY@0630 TIMOTEO Administration Polyethylene Glycol 17 gm 07/29/24 09:00 07/29/24 08:40 Polyethylene Glycol 3350 17 Gm Powd.Pack PO 07/29/25 08:59 17 gm DAILY TIMOTEO Administration Prednisone 10 mg 07/29/24 09:00 07/29/24 08:39 Prednisone 10 Mg Tablet PO 07/29/25 08:59 10 mg DAILY TIMOTEO Administration Sennosides 17.2 mg 07/29/24 12:00 Sennosides 8.6 Mg Tablet PO 07/29/25 11:59 DAILY@12 PRN If no BM in 2 days Sodium Chloride 0 ml 07/28/24 15:56 Sodium Chloride 0.9 % 10 Ml Syringe IV-PUSH 07/28/25 15:55 PRN PRN Flush Spironolactone 25 mg 07/29/24 09:00 07/29/24 08:38 Spironolactone 25 Mg Tablet PO 07/29/25 08:59 25 mg DAILY TIMOTEO Administration Vitamin D 50 mcg 07/29/24 09:00 07/29/24 08:38 Cholecalciferol 25 Mcg (1,000 Units) Tablet PO 07/29/25 08:59 50 mcg DAILY TIMOTEO Administration Exam Physical Exam Vital Signs: Temp Pulse Resp BP Pulse Ox O2 Del Method 98.0 F 76 16 133/69 95 Room Air 07/29/24 14:01 07/29/24 14:07/29/24 14:07/29/24 14:07/29/24 14:01 07/29/24 14:01 Narrative: CONST- alert, in bed, frail elderly HEAD- normocephalic and atraumatic EENT- sclera nonicteric and conjunctiva nonerythemic, moist oral mucosa, pharynx not visualized NECK- supple, no cervical lymphadenopathy CARDIAC- RRR no abnormal heart tones PULM- diminished without wheeze or rhonchi, RA, no accessory muscle use or cough noted ABD- S/NT, NABS EXTREM-1+ edema BLE, calves nontender SKIN- W/D, good turgor, left knee VAC dressing MS- MAEx4 spontaneously with equal strength NEURO- A&Ox3, speech clear and tongue midline, equal facial symmetry PSYCH-mood and behavior appropriate Results - Hospitalist Consult Lab Results Labs: Laboratory Results - last 72 hr 07/29/24 04:51: Corrected WBC 7.5, Uncorrected WBC Count 7.5, RBC 3.43 L, Hgb 9.5 L, Hct 28.3 L, MCV 82.7, MCH 27.7, MCHC 33.5, RDW 18.1 H, Plt Count 149 L, MPV 8.3, Neut % (Auto) 62.5, Lymph % (Auto) 22.5, Dundy % (Auto) 13.0, Eos % (Auto) 1.4, Baso % (Auto) 0.6, Nucleat RBC Rel Count 0.1, Neut # (Auto) 4.7, Lymph # (Auto) 1.7, Dundy # (Auto) 1.0 H, Eos # (Auto) 0.1, Baso # (Auto) 0.0, PHA Creatinine Clear 37.33, Sodium 141, Potassium 3.8, Chloride 107, Carbon Dioxide 29.2, Anion Gap 8.6, BUN 26H, Creatinine 1.22 H, Est GFR (CKD-EPI) 44.032, Glucose 111 H, Calcium 9.0, Total Bilirubin 0.7, AST 20, ALT 8, Alkaline Phosphatase 64, Total Protein 5.9 L, Albumin 3.6, Globulin 2.3, Albumin/Globuli n Ratio 1.6, Prealbumin 18.3 Assessment & Plan Assessment/Plan (1) CHF (congestive heart failure): (2) Hypertension: (3) Sleep apnea: (4) Hypothyroidism: (5) Status post total left knee replacement: (6) GERD (gastroesophageal reflux disease): Plan s/p Left knee arthroplasty 07/27/24 postoperative anemia -further plan of care per PMR team for rehabilitative therapy, pain control & bowel regimen, DVT prophylaxis, surgical wound care -please defer postoperative questions/ concerns to ortho team, vitamin/ mineral therapy antibiotic steroid per ortho preference -preop hemoglobin 11.7 chronic conditions 1. Hx breast CA- anastrozole 2. Paroxysmal Afib on chronic anticoagulation- apixaban, metoprolol 3. HLD- atorvastatin 4. Asthma- Albuterol prn, Budesonide/ Formoterol, montelukast. Stable respiratory status 5. Heart failure unspecified, Hypertension- Bumetanide, Metoprolol, spironolactone. BP reviewed andcontrolled 6. Chronic pain- duloxetine 7. Hypothyroid- levothyroxine 8. IBS-C- Linaclotide 9. GERD- pantoprazole Thank you for consulting us to see this pt. I will be off service starting Saturday evening. Case will be handled by one of my partners if needed. Pt is fairly stable at this time. We will follow pt on an as needed basis. Please call or alert hospitalist if pt develops any signs or symptoms that may require medical evaluation and or intervention. Please arrange for pt after discharge follow up appts with PCP and other specialists. I may or may not have addressed all of patient symptoms, abnormal labs and imaging during this hospitalization. Please ask patient to ask PCP and out patient providers to obtain [facility] record entirely to followup on illnesses, symptoms, abnormal findings that I have and have not addressed during this encounter and hospitalization in out patient setting. Documented By: Emily Lawrence, ALYSSA 07/02 03/25 1711 Signed By: 07/29/24 1741 07/30/24 1735 [facility]01-30-2025 Progress note Author Tuan Farrell [facility] Note Date/Time July 30, 2024 1 2:12pm [facility] [address] [place] [address] Physiatry(Rehab) Progress Note Signed Patient: Jemima Bradford MR#: [id number] : 1940 Acct:[id number] Age/Sex: 84 / F Adm Date: 5 Loc: Room: 4N1122-0 Type: ADM IN Attending Dr: Tuan Farrell MD Copies to: ~ Date of Service: 07/30/2024 Subjective Subjective Narrative: Ms. Bradford is a 84 year old female with multiple complex medical comorbidities including CHF status post CABG, CKD, sleep apnea, hypertension, and history of right total knee arthroplasty status post revision presenting with functional decline after left total knee arthroplasty. 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 She has apprehension regarding her recovery as she says her right total knee was messed up her prior orthopedic surgeon at [facility] and required revision surgery at [facility]. We reviewed her labs and her medications. She has good understanding of her comorbidities. Interval history: No acute events overnight. Yesterday ambulatory 30 feet with contact-guard assist. She has ice pack on her knee this morning. We discussed plan for weekend discharge as requested. She would still like to shoot for that althoughshe seems a little more hesitant that she would be ready today. Will need to follow-up tomorrow and Saturday. Review of Systems Review of Systems All other systems reviewed & are negative unless noted below or in HPI Exam Physical Exam Vital Signs: Temp Pulse Resp BP Pulse Ox O2 Del Method 98.3 F 85 18 119/72 96 Room Air 07/30/24 04:02 07/30/24 08:19 07/30/24 04:02 07/30/24 08:19 07/30/24 04:02 07/30/24 07:30 Narrative: Pleasant No acute distress Nonlabored breathing Abdomen soft Right knee range of motion limited to 80 degrees Left knee somewhat limited by pain 1+ lower extremity edema Objective Labs 07/29/24 04:51 07/29/24 04:51 Labs: Laboratory Results - last 24 hr 07/29/24 04:51 Prealbumin 18.3 Medications and Allergies Allergies and Active Meds: Allergies Iodinated Contrast Media (Iodinated Contrast- Oral and IV Dye) Allergy (Severe, Verified 07/27/24 10:25) Anaphylaxis adhesive tape (Tape) Allergy (Unknown, Verified 07/16/24 10:01) Blister chlorpromazine (From Thorazine) Allergy (Unknown, Verified 07/16/24 10:01) Hives clarithromycin (From Biaxin) Allergy (Unknown, Verified 07/16/24 10:01) Unknown Reaction hylan G-F 20 (From Synvisc) Allergy (Unknown, Verified 07/16/24 10:01) Itching, swelling nickel Allergy (Unknown, Verified 07/16/24 10:01) Swelling nitrous oxide Allergy (Unknown, Verified 07/16/24 10:01) Vomiting simvus Allergy (Unknown, Uncoded 06/02/24 10:03) Unknown Reaction metal Allergy (Uncoded 06/02/24 10:03) Edema Active Medications Generic Name Dose Route Start Last Admin Trade Name Freq PRN Reason Stop Dose Admin Acetaminophen 1,000 mg 07/28/24 22:00 07/30/24 04:04 Acetaminophen 500 Mg Tablet PO 07/28/25 21:59 1,000 mg Q8H TIMOTEO Administration Al Hydrox/Mg Hydrox/Simethicone 30 ml 07/28/24 15:56 Mag Hydrox/Al Hydrox/Simeth 30 Ml Udc PO 07/28/25 15:55 Q4H PRN Indigestion Albuterol 1 puff 07/28/24 16:09 Albuterol Hfa 60 Puff/8 Gram Inhaler INHALATION 07/28/25 16:08 Q4H PRN Shortness Of Breath Or Wheezing Anastrozole 1 mg 07/30/24 22:00 Anastrozole 1 Mg Tablet PO 07/30/25 21:59 QHS TIMOTEO Apixaban 5 mg 07/28/24 21:00 07/30/24 08:11 Apixaban 5 Mg Tablet PO 07/28/25 20:59 5 mg BID TIMOTEO Administration Ascorbic Acid 500 mg 07/29/24 09:00 07/30/24 08:11 Ascorbic Acid 500 Mg Tablet PO 07/29/25 08:59 500 mg DAILY TIMOTEO Administration Atorvastatin Calcium 80 mg 07/28/24 22:00 07/29/24 22:21 Atorvastatin 80 Mg Tablet PO 07/28/25 21:59 80 mg HS TIMOTEO Administration Bisacodyl 10 mg 07/28/24 15:56 Bisacodyl 10 Mg Supp.Rect HI 07/28/25 15:55 DAILY PRN Constipation Budesonide/Formoterol Fumarate 2 puff 07/28/24 21:00 07/30/24 06:54 Budesonide/Formoterol 160-4.5 Mcg 60 Puff/6 Gm Hfa.Aer.Ad INHALATION 07/28/25 20:59 2 puff BID TIMOTEO Administration Bumetanide 1 mg 07/29/24 09:00 07/30/24 08:11 Bumetanide 1 Mg Tablet PO 07/29/25 08:59 1 mg QAM TIMOTEO Administration Cefadroxil 500 mg 07/28/24 21:00 07/30/24 08:13 Cefadroxil 500 Mg Capsule PO 08/03/24 09:01 500 mg Q12H TIMOTEO Administration Docusate Sodium 100 mg 07/28/24 15:56 07/29/24 22:21 Docusate 100 Mg Capsule PO 07/28/25 15:55 100 mg BID PRN Administration Constipation Docusate Sodium 283 mg 07/28/24 15:56 Docusate Enema 283 Mg/5 Ml Enema HI 07/28/25 15:55 DAILY PRN Constipation Duloxetine HCl 30 mg 07/28/24 21:00 07/29/24 22:20 Duloxetine 30 Mg Capsule. PO 07/28/25 20:59 30 mg QPM TIMOTEO Administration Ferrous Sulfate 324 mg 07/29/24 09:00 07/30/24 08:11 Ferrous Sulfate 324 Mg Tablet. PO 07/29/25 08:59 324 mg DAILY TIMOTEO Administration Lactulose 30 gm 07/28/24 15:56 Lactulose 20 Gm/30 Ml Udc PO 07/28/25 15:55 DAILY PRN Constipation Levothyroxine Sodium 50 mcg 07/29/24 06:30 07/30/24 04:05 Levothyroxine 50 Mcg Tablet PO 07/29/25 06:29 50 mcg DAILY@0630 TIMOTEO Administration Linaclotide 72 mcg 07/29/24 23:00 07/29/24 22:28 Linaclotide 72 Mcg Capsule PO 07/29/25 22:59 72 mcg QPM TIMOTEO Administration Melatonin 5 mg 07/28/24 22:00 07/29/24 22:22 Melatonin 5 Mg Tablet PO 07/28/25 21:59 5 mg QHS TIMOTEO Administration Metoprolol Tartrate 12.5 mg 07/28/24 21:00 07/30/24 08:11 Metoprolol Tartrate 12.5 Mg Tablet PO 07/28/25 20:59 12.5 mg BID TIMOTEO Administration Montelukast Sodium 10 mg 07/29/24 09:00 07/30/24 08:11 Montelukast 10 Mg Tablet PO 07/29/25 08:59 10 mg QAM TIMOTEO Administration Nitroglycerin 0.4 mg 07/28/24 16:10 Nitroglycerin 0.4 Mg Tab.Subl SUBLINGUAL 07/28/25 16:09 Q5MIN.X3 PRN Pain Ondansetron HCl 4 mg 07/28/24 17:15 Ondansetron Odt 4 Mg Tab.Rapdis PO 07/28/25 17:14 Q8H PRN Nausea Oxycodone HCl 5 mg 07/28/24 16:10 07/30/24 08:58 Oxycodone Ir 5 Mg Tablet PO 5 mg Q4H PRN Administration Pain Pantoprazole Sodium 40 mg 07/29/24 06:30 07/30/24 04:04 Pantoprazole 40 Mg Tablet.Dr PO 07/29/25 06:29 40 mg DAILY@0630 TIMOTEO Administration Polyethylene Glycol 17 gm 07/29/24 09:00 07/30/24 08:12 Polyethylene Glycol 3350 17 Gm Powd.Pack PO 07/29/25 08:59 17 gm DAILY TIMOTEO Administration Prednisone 10 mg 07/29/24 09:00 07/30/24 08:11 Prednisone 10 Mg Tablet PO 07/29/25 08:59 10 mg DAILY TIMOTEO Administration Sennosides 17.2 mg 07/29/24 12:00 07/29/24 22:21 Sennosides 8.6 Mg Tablet PO 07/29/25 11:59 17.2 mg DAILY@12 PRN Administration If no BM in 2 days Sodium Chloride 0 ml 07/28/24 15:56 Sodium Chloride 0.9 % 10 Ml Syringe IV-PUSH 07/28/25 15:55 PRN PRN Flush Spironolactone 25 mg 07/29/24 09:00 07/30/24 08:11 Spironolactone 25 Mg Tablet PO 07/29/25 08:59 25 mg DAILY TIMOTEO Administration Vitamin D 50 mcg 07/29/24 09:00 07/30/24 08:11 Cholecalciferol 25 Mcg (1,000 Units) Tablet PO 07/29/25 08:59 50 mcg DAILY TIMOTEO Administration Assessment/Plan Assessment/Plan (1) Status post total left knee replacement: Plan: PT to improve pt's strength, endurance, bed mobility, transfers (sit-stand), standing balance, gait quality on level surfaces and stairs, coordination and functional ADL skills. Will also work to improve pt's safety awareness during transfers and ambulation. OT for basic ADL re-training (bathing, dressing, toileting, continence, grooming, feeding, transferring), to increase activity tolerance and functional mobility and to evaluate for adaptive and assistive devices. Will work to improve pt's endurance and educate pt on fall prevention and energy conservationtechniques-pacing strategies and proper breathing techniques during functional tasks. Patient education Pressure ulcer prophylaxis; encourage mobilization, frequent postural changes, pressure-relief techniques DVT prophylaxis Encourage deep breathing exercise incentive spirometry. Monitor bladder. Toileting schedule. Continue current bladder management, with scans as needed and CIC if needed. Start bowel care program every day to obtain continence, prevent ileus. Maintain fall precautions Gait and balance retraining Provision of the necessary gait aids and functional adaptive equipment to enhance the patient's a functional adventist Encourage deep breathing exercises and incentive spirometry RD evaluation Ensure adequate nutrition and hydration Discharge planning. (2) Impaired mobility and activities of daily living: (3) Anemia: (4) Irritable bowel syndrome with constipation: (5) Osteoporosis without current pathological fracture: (6) Chronic pain: (7) CHF (congestive heart failure): (8) Sleep apnea: (9) History of revision of total replacement of right knee joint: (10) Hypertension: (11) Hypothyroidism: (12) CKD (chronic kidney disease): Plan Ms. Bradford is a 84 year old female with multiple complex medical comorbidities including CHF status post CABG, CKD, sleep apnea, hypertension, and history of right total knee arthroplasty status post revision presenting with functional decline after left total knee arthroplasty. -Continue current plan of care. Therapy as ordered. Plan for discharge this weekend. Hospitalist to assist with management of comorbid medical conditions Pain control: Wean opioids. Bowel and bladder: Continent. Skin: Turn and position for offloading. Monitor op site. Sleep: Optimize sleep/wake cycle. DVT prophylaxis: Anticoagulated with Eliquis. Functional status: Impaired see PT/OT. Discharge planning: Home as early as weekend v. early next week-caregiver for with dementia. Patient was personally seen by me, Dr. Farrell, on the day of encounter, reviewed the history and the relevant portions of the chart, including current orders, allied health and environmental remediation consultant notes, labs/imaging and performed chua elements of exam and I formulated the plan of care and facilitated the medical decision making. I completed a substantive portion of this encounter, the medical decision makingportion of this note in its entirety, including Allied health note review, nursing note review, environmental remediation consultant note review, discussion with nursing and case management, and more than 50% of my time was spent on counseling and coordination of care, time spent 30 minutes Documented By: Tuan Farrell MD 07/30/24 1210 Signed By: <Electronically signed by Tuan Farrell MD> 07/30/24 1212 [facility] Work Phone: [phone]) 959-673801-30-2025 [place] [address] Physiatry(Rehab) Progress Note Signed Patient: Jemima Bradford MR#: [id number] : 1940 Acct:[id number] Age/Sex: 84 / F Adm Date: 5 Loc: Room: 7Z6268-2 Type: ADM IN Attending Dr: Tuan Farrell MD Copies to: ~ Date of Service: 07/30/2024 Subjective Subjective Narrative: Ms. Bradford is a 84 year old female with multiple complex medical comorbidities including CHF status post CABG, CKD, sleep apnea, hypertension, and history of right total knee arthroplasty status post revision presenting with functional decline after left total knee arthroplasty. 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 She has apprehension regarding her recovery as she says her right total knee was messed up her prior orthopedic surgeon at [facility] and required revision surgery at [facility]. We reviewed her labs and her medications. She has good understanding of her comorbidities. Interval history: No acute events overnight. Yesterday ambulatory 30 feet with contact-guard assist. She has ice packon her knee this morning. We discussed plan for weekend discharge as requested. She would still like to shoot for that althoughlucius seems a little more hesitant that she would be ready today. Will need to follow-up tomorrow and Saturday. Review of Systems Review of Systems All other systems reviewed & are negative unless noted below or in HPI Exam Physical Exam Vital Signs: Temp Pulse Resp BP Pulse Ox O2 Del Method 98.3 F 85 18 119/72 96 Room Air 07/30/24 04:02 07/30/24 08:19 07/30/24 04:02 07/30/24 08:19 07/30/24 04:02 07/30/24 07:30 Narrative: Pleasant No acute distress Nonlabored breathing Abdomen soft Right knee range of motion limited to 80 degrees Left knee somewhat limited by pain 1+ lower extremity edema Objective Labs 07/29/24 04:51 07/29/24 04:51 Labs: Laboratory Results - last 24 hr 07/29/24 04:51 Prealbumin 18.3 Medications and Allergies Allergies and Active Meds: Allergies Iodinated Contrast Media (Iodinated Contrast- Oral and IV Dye) Allergy (Severe, Verified 07/27/24 10:25) Anaphylaxis adhesive tape (Tape) Allergy (Unknown, Verified 07/16/24 10:01) Blister chlorpromazine (From Thorazine) Allergy (Unknown, Verified 07/16/24 10:01) Hives clarithromycin (From Biaxin) Allergy (Unknown, Verified 07/16/24 10:01) Unknown Reaction hylan G-F 20 (From Synvisc) Allergy (Unknown, Verified 07/16/24 10:01) Itching, swelling nickel Allergy (Unknown, Verified 07/16/24 10:01) Swelling nitrous oxide Allergy (Unknown, Verified 07/16/24 10:01) Vomiting simvus Allergy (Unknown, Uncoded 06/02/24 10:03) Unknown Reaction metal Allergy (Uncoded 06/02/24 10:03) Edema Active Medications Generic Name Dose Route Start Last Admin Trade Name Freq PRN Reason Stop Dose Admin Acetaminophen 1,000 mg 07/28/24 22:00 07/30/24 04:04 Acetaminophen 500 Mg Tablet PO 07/28/25 21:59 1,000 mg Q8H TIMOTEO Administration Al Hydrox/Mg Hydrox/Simethicone 30 ml 07/28/24 15:56 Mag Hydrox/Al Hydrox/Simeth 30 Ml Udc PO 07/28/25 15:55 Q4H PRN Indigestion Albuterol 1 puff 07/28/24 16:09 Albuterol Hfa 60 Puff/8 Gram Inhaler INHALATION 07/28/25 16:08 Q4H PRN Shortness Of Breath Or Wheezing Anastrozole 1 mg 07/30/24 22:00 Anastrozole 1 Mg Tablet PO 07/30/25 21:59 QHS TIMOTEO Apixaban 5 mg 07/28/24 21:00 07/30/24 08:11 Apixaban 5 Mg Tablet PO 07/28/25 20:59 5 mg BID TIMOTEO Administration Ascorbic Acid 500 mg 07/29/24 09:00 07/30/24 08:11 Ascorbic Acid 500 Mg Tablet PO 07/29/25 08:59 500 mg DAILY TIMOTEO Administration Atorvastatin Calcium 80 mg 07/28/24 22:00 07/29/24 22:21 Atorvastatin 80 Mg Tablet PO 07/28/25 21:59 80 mg HS TIMOTEO Administration Bisacodyl 10 mg 07/28/24 15:56 Bisacodyl 10 Mg Supp.Rect HI 07/28/25 15:55 DAILY PRN Constipation Budesonide/Formoterol Fumarate 2 puff 07/28/24 21:00 07/30/24 06:54 Budesonide/Formoterol 160-4.5 Mcg 60 Puff/6 Gm Hfa.Aer.Ad INHALATION 07/28/25 20:59 2 puff BID TIMOTEO Administration Bumetanide 1 mg 07/29/24 09:00 07/30/24 08:11 Bumetanide 1 Mg Tablet PO 07/29/25 08:59 1 mg QAM TIMOTEO Administration Cefadroxil 500 mg 07/28/24 21:00 07/30/24 08:13 Cefadroxil 500 Mg Capsule PO 08/03/24 09:01 500 mg Q12H TIMOTEO Administration Docusate Sodium 100 mg 07/28/24 15:56 07/29/24 22:21 Docusate 100 Mg Capsule PO 07/28/25 15:55 100 mg BID PRN Administration Constipation Docusate Sodium 283 mg 07/28/24 15:56 Docusate Enema 283 Mg/5 Ml Enema HI 07/28/25 15:55 DAILY PRN Constipation Duloxetine HCl 30 mg 07/28/24 21:00 07/29/24 22:20 Duloxetine 30 Mg Capsule. PO 07/28/25 20:59 30 mg QPM TIMOTEO Administration Ferrous Sulfate 324 mg 07/29/24 09:00 07/30/24 08:11 Ferrous Sulfate 324 Mg Tablet. PO 07/29/25 08:59 324 mg DAILY TIMOTEO Administration Lactulose 30 gm 07/28/24 15:56 Lactulose 20 Gm/30 Ml Udc PO 07/28/25 15:55 DAILY PRN Constipation Levothyroxine Sodium 50 mcg 07/29/24 06:30 07/30/24 04:05 Levothyroxine 50 Mcg Tablet PO 07/29/25 06:29 50 mcg DAILY@0630 TIMOTEO Administration Linaclotide 72 mcg 07/29/24 23:00 07/29/24 22:28 Linaclotide 72 Mcg Capsule PO 07/29/25 22:59 72 mcg QPM TIMOTEO Administration Melatonin 5 mg 07/28/24 22:00 07/29/24 22:22 Melatonin 5 Mg Tablet PO 07/28/25 21:59 5 mg QHS TIMOTEO Administration Metoprolol Tartrate 12.5 mg 07/28/24 21:00 07/30/24 08:11 Metoprolol Tartrate 12.5 Mg Tablet PO 07/28/25 20:59 12.5 mg BID TIMOTEO Administration Montelukast Sodium 10 mg 07/29/24 09:00 07/30/24 08:11 Montelukast 10 Mg Tablet PO 07/29/25 08:59 10 mg QAM TIMOTEO Administration Nitroglycerin 0.4 mg 07/28/24 16:10 Nitroglycerin 0.4 Mg Tab.Subl SUBLINGUAL 07/28/25 16:09 Q5MIN.X3 PRN Pain Ondansetron HCl 4 mg 07/28/24 17:15 Ondansetron Odt 4 Mg Tab.Rapdis PO 07/28/25 17:14 Q8H PRN Nausea Oxycodone HCl 5 mg 07/28/24 16:10 07/30/24 08:58 Oxycodone Ir 5 Mg Tablet PO 5 mg Q4H PRN Administration Pain Pantoprazole Sodium 40 mg 07/29/24 06:30 07/30/24 04:04 Pantoprazole 40 Mg Tablet. PO 07/29/25 06:29 40 mg DAILY@0630 TIMOTEO Administration Polyethylene Glycol 17 gm 07/29/24 09:00 07/30/24 08:12 Polyethylene Glycol 3350 17 Gm Powd.Pack PO 07/29/25 08:59 17 gm DAILY TIMOTEO Administration Prednisone 10 mg 07/29/24 09:00 07/30/24 08:11 Prednisone 10 Mg Tablet PO 07/29/25 08:59 10 mg DAILY TIMOTEO Administration Sennosides 17.2 mg 07/29/24 12:00 07/29/24 22:21 Sennosides 8.6 Mg Tablet PO 07/29/25 11:59 17.2 mg DAILY@12 PRN Administration If no BM in 2 days Sodium Chloride 0 ml 07/28/24 15:56 Sodium Chloride 0.9 % 10 Ml Syringe IV-PUSH 07/28/25 15:55 PRN PRN Flush Spironolactone 25 mg 07/29/24 09:00 07/30/24 08:11 Spironolactone 25 Mg Tablet PO 07/29/25 08:59 25 mg DAILY TIMOTEO Administration Vitamin D 50 mcg 07/29/24 09:00 07/30/24 08:11 Cholecalciferol 25 Mcg (1,000 Units) Tablet PO 07/29/25 08:59 50 mcg DAILY TIMOTEO Administration Assessment/Plan Assessment/Plan (1) Status post total left knee replacement: Plan: PT to improve pt's strength, endurance, bed mobility, transfers (sit-stand), standing balance, gaitquality on level surfaces and stairs, coordination and functional ADL skills. Will also work to improve pt's safety awareness during transfers and ambulation. OT for basic ADL re-training (bathing, dressing, toileting, continence, grooming, feeding, transferring), to increase activity tolerance and functional mobility and to evaluate for adaptive and assistive devices. Will work to improve pt's endurance and educate pt on fall prevention and energy conser vationtechniques-pacing strategies and proper breathing techniques during functional tasks. Patient education Pressure ulcer prophylaxis; encourage mobilization, frequent postural changes, pressure-relief techniques DVT prophylaxis Encourage deep breathing exercise incentive spirometry. Monitor bladder. Toileting schedule. Continue current bladder management, with scans as needed and CIC if needed. Start bowel care program every day to obtain continence, prevent ileus. Maintain fall precautions Gait and balance retraining Provision of the necessary gait aids and functional adaptive equipment to enhance the patient's a functional adventist Encourage deep breathing exercises and incentive spirometry RD evaluation Ensure adequate nutrition and hydration Discharge planning. (2) Impaired mobility and activities of daily living: (3) Anemia: (4) Irritable bowel syndrome with constipation: (5) Osteoporosis without current pathological fracture: (6) Chronic pain: (7) CHF (congestive heart failure): (8) Sleep apnea: (9) History of revision of total replacement of right knee joint: (10) Hypertension: (11) Hypothyroidism: (12) CKD (chronic kidney disease): Plan Ms. Bradford is a 84 year old female with multiple complex medical comorbidities including CHF status post CABG, CKD, sleep apnea, hypertension, and history of right total knee arthroplasty status post revision presenting with functional decline after left total knee arthroplasty. -Continue current plan of care. Therapy as ordered. Plan for discharge this weekend. Hospitalist to assist with management of comorbid medical conditions Pain control: Wean opioids. Bowel and bladder: Continent. Skin: Turn and position for offloading. Monitor op site. Sleep: Optimize sleep/wake cycle. DVT prophylaxis: Anticoagulated with Eliquis. Functional status: Impaired see PT/OT. Discharge planning: Home as early as weekend v. early next week-caregiver for with dementia. Patient was personally seen by me, Dr. Farrell, on the day of encounter, reviewed the history and therelevant portions of the chart, including current orders, allied health and environmental remediation consultant notes, labs/imaging and performed chua elements of exam and I formulated the plan of care and facilitated the medical decision making. I completed a substantive portion of this encounter, the medical decision makingportion of this note in its entirety, including Allied health note review, nursing note review, environmental remediation consultant note review,discussion with nursing and case management, and more than 50% of my time was spent on counseling and coordination of care, time spent 30 minutes Documented By: Tuan Farrell MD 07/30/24 1210 Signed By: 07/30/24 1212 [facility]01-29-2025 History and physical note Author Tuan Farrell [facility] Note Date/Time July 29, 2024 1 :22pm [facility] [address] [place] [address] Physiatry (Rehab) H&P Signed Patient: Jemima Bradford MR#: [id number] : 1940 Acct:[id number] Age/Sex: 84 / F Adm Date: 5 Loc: Room: [address] [place] [address] Type: ADM IN Attending Dr: Tuan Farrell MD Copies to: MD Jasmyne Jiang, SWING FRAME GRINDER OPERATOR, LAMBSKIN TRIMMER~ Date of Service: 07/29/2024 HPI The patient was seen and examined on: 07/29/24 Etiologic Diagnosis/Impairment Group: [id number] Chief complaint: weakness, functional decline History of Present Illness: Ms. Bradford is a 84 year old female with multiple complex medical comorbidities including CHF status post CABG, CKD, sleep apnea, hypertension, and history of right total knee arthroplasty status post revision presenting with functional decline after left total knee arthroplasty. Today she feels generally well. Her pain and weakness is limiting her progress in therapy. 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 She has apprehension regarding her recovery as she says her right total knee was messed up her prior orthopedic surgeon at [facility] and required revision surgery at [facility]. We reviewed her labs and her medications. She has good understanding of her comoribidities. [facility] Medical History History of ankle fracture left with repair, plates and screws Left knee pain Wears hearing aid in both ears Stress incontinence in female Gaviria esophagus Hypothyroidism Right hip pain Left knee pain Chronic pain Lung cancer Polymyalgia rheumatica Abnormal colonoscopy history of polyps Breast cancer right side History of cataract Kidney stones Stage 3 chronic kidney disease dx 2020 GERD (gastroesophageal reflux disease) CHF (congestive heart failure) since having the CABG History of atrial fibrillation Murmur Arthritis IBS (irritable bowel syndrome) Hiatal hernia Sleep apnea cpap History of revision of total replacement of right knee joint Trigger finger Asthma Hypertension CVA (cerebral vascular accident) Surgical History Status post total left knee replacement History of tubal ligation History of lumpectomy of right breast and radiation for breast cancer History of phacoemulsification of cataract of both eyes with intraocular lens implantation History of cardiac catheterization stents History of thoracotomy part of left lung removed History of cystoscopy H/O cardiac radiofrequency ablation 2020 Aortic valve replaced done at time of CABG Hx of CABG x 1 done 11/2019 History of total right knee replacement x 2 Problem List clean-up per request of Phys. EHR Cmte History of bunionectomy History of cholecystectomy History of arthroscopy of both knees H/O abdominoplasty History of carpal tunnel release of both wrists bilaterally Problem List clean-up per request of Phys. EHR Cmte H/O lithotripsy History of appendectomy History of tonsillectomy and adenoidectomy Family History Mother H/O endarterectomy H/O angioplasty Pancreatic cancer Pacemaker Diabetes Father H/O endarterectomy Hx of CABG Stroke Diabetes Heart disease Brother Bladder cancer Hx of CABG Sister Breast cancer Sister Breast cancer Brother Diabetes Legacy FamHx Relation: Brother(s) Exposure to Agent Irion Legacy FamHx Relation: Brother(s) Pacemaker Father No problems noted. Mother No problems noted. Sister No problems noted. Social History Smoking Status: Former smoker Tobacco Type: cigarettes Substance Use Type: None Social History Comments: several cysto's cardiac cath with stent multiple D&C's several colonoscopies wirh polypectomies another cardiac cath uses cpap cysto urethral laser with stone removal with stent Review of Systems Review of Systems All other systems reviewed & are negative unless noted below or in HPI Meds Medications and Allergies Allergies Iodinated Contrast Media (Iodinated Contrast- Oral and IV Dye) Allergy (Severe, Verified 07/27/24 10:25) Anaphylaxis adhesive tape (Tape) Allergy (Unknown, Verified 07/16/24 10:01) Blister chlorpromazine (From Thorazine) Allergy (Unknown, Verified 07/16/24 10:01) Hives clarithromycin (From Biaxin) Allergy (Unknown, Verified 07/16/24 10:01) Unknown Reaction hylan G-F 20 (From LaunchPoint) Allergy (Unknown, Verified 07/16/24 10:01) Itching, swelling nickel Allergy (Unknown, Verified 07/16/24 10:01) Swelling nitrous oxide Allergy (Unknown, Verified 07/16/24 10:01) Vomiting simvus Allergy (Unknown, Uncoded 06/02/24 10:03) Unknown Reaction metal Allergy (Uncoded 06/02/24 10:03) Edema Home and Active Meds: Home Medications albuterol sulfate 90 mcg/actuation aerosol inhaler 1 puff inhalation Q4-6H PRN Shortness Of Breath Or Wheezing 02/06/18 [History Confirmed 07/28/24] chromium picolinate 1,000 mcg tablet 500 mcg PO DAILY blood sugar 02/06/18 [History Confirmed 07/16/24] melatonin 10 mg tablet 5 mg PO HS PRN Sleep 02/06/18 [History Confirmed 07/28/24] metoprolol tartrate 25 mg tablet 12.5 mg PO BID 02/06/18 [History Confirmed 07/28/24] nitroglycerin 0.4 mg sublingual tablet 0.4 mg sublingual Q5MIN PRN Pain 02/06/18[History Confirmed 07/28/24] rosuvastatin 40 mg tablet 40 mg PO HS 11/10/18 [History Confirmed 07/28/24] coenzyme Q10 100 mg capsule (Co Q-10) 100 mg PO QHS 06/13/20 [History Confirmed 07/28/24] spironolactone 25 mg tablet (Aldactone) 25 mg PO DAILY 06/13/20 [History Confirmed 07/28/24] anastrozole 1 mg tablet 1 mg PO DAILY 01/16/23 [History Confirmed 07/28/24] apixaban 5 mg tablet (Eliquis) 5 mg PO BID 01/16/23 [History Confirmed 07/28/24] calcium 600 mg (as carbonate)-vitamin D3 5 mcg (200 unit) capsule (Calcium 600 +D(3)) 1 cap PO DAILY 01/16/23 [History Confirmed 07/16/24] levothyroxine 50 mcg tablet 50 mcg PO QAM 01/16/23 [History Confirmed 07/28/24] linaclotide 290 mcg capsule (Linzess) 72 mcg PO DAILY.0730A 01/16/23 [History Confirmed 07/28/24] magnesium 250 mg tablet 600 mg PO DAILY 01/16/23 [History Confirmed 07/16/24] montelukast 10 mg tablet 10 mg PO QAM 01/16/23 [History Confirmed 07/28/24] bumetanide 1 mg PO QAM 09/04/23 [History Confirmed 07/28/24] Lactobacillus rhamnosus-Bifidobac. animalis 3 billion cell capsule (Weave) 1 cap PO DAILY 06/15/24 [History Confirmed 07/16/24] ascorbic acid (vitamin C) 500 mg tablet (Vitamin C) 500 mg PO daily 30 days #30 caps 06/15/24 [Rx Confirmed 07/28/24] ferrous sulfate 325 mg (65 mg iron) tablet (Iron (ferrous sulfate)) 325 mg PO tid 30 days #90 caps 06/15/24 [Rx Confirmed 07/28/24] acetaminophen 650 mg tablet,extended release (8 Hour Pain Reliever) 1,300 mg PO Q12HR PRN fever or pain 07/13/24 [History Confirmed 07/16/24] cholecalciferol (vitamin D3) 50 mcg (2,000 unit) capsule (Vitamin D3) 25 mcg PO DAILY 07/13/24 [History Confirmed 07/28/24] duloxetine 30 mg capsule,delayed release 30 mg PO QPM 07/13/24 [History Confirmed 07/28/24] esomeprazole magnesium 40 mg capsule,delayed release 40 mg PO QAM 07/13/24 [History Confirmed 07/28/24] fluticasone furoate 200 mcg-vilanterol 25 mcg/dose inhalation powder (Breo Ellipta) 1 inh inhalation QAM 07/13/24 [History Confirmed 07/28/24] inulin-sorbitol 2 gram chewable tablet (Fiber Supplement (inulin)) 5 tab PO DAILY 07/13/24 [History Confirmed 07/16/24] acetaminophen 500 mg tablet 1,000 mg (2 x 500 mg) PO Q8H 30 days #180 tabs 07/16/24 [Rx Confirmed 07/28/24] cefadroxil 500 mg capsule 500 mg PO Q12H 7 days #14 tabs 07/16/24 [Rx Confirmed 07/28/24] ondansetron HCl 4 mg tablet 4 mg PO Q8H PRN Nausea #9 tabs 07/16/24 [Rx Confirmed 07/28/24] oxycodone 5 mg tablet 5 mg PO Q4H PRN Pain 7 days #42 tabs 07/16/24 [Rx Confirmed 07/28/24] polyethylene glycol 3350 17 gram/dose oral powder (Miralax) 17 g PO daily 7 days#7 packets 07/16/24 [Rx Confirmed 07/28/24] prednisone 10 mg tablet 10 mg PO daily 10 days #10 tabs 07/16/24 [Rx Confirmed 07/28/24] sennosides 8.6 mg-docusate sodium 50 mg tablet (Senokot-S) 2 tab PO daily 30 days #60 tabs 07/16/24 [Rx Confirmed 07/16/24] tramadol 50 mg tablet 50 mg PO q6h PRN Pain 7 days #28 tabs 07/16/24 [Rx Confirmed 07/16/24] Active Medications Acetaminophen (Acetaminophen 500 Mg Tablet) 1,000 mg PO Q8H [facility] Stop: 07/28/25 21:59 Last Admin: 07/29/24 13:04 Dose: 1,000 mg Al Hydrox/Mg Hydrox/Simethicone (Mag Hydrox/Al Hydrox/Simeth 30 Ml Udc) 30 ml PO Q4H PRN PRN Reason: Indigestion Stop: 07/28/25 15:55 Albuterol (Albuterol Hfa 60 Puff/8 Gram Inhaler) 1 puff INHALATION Q4H PRN PRN Reason: Shortness Of Breath Or Wheezing Stop: 07/28/25 16:08 Anastrozole (Anastrozole 1 Mg Tablet) 1 mg PO QHS [facility] Stop: 07/30/25 21:59 Apixaban (Apixaban 5 Mg Tablet) 5 mg PO BID [facility] Stop: 07/28/25 20:59 Last Admin: 07/29/24 08:38 Dose: 5 mg Ascorbic Acid (Ascorbic Acid 500 Mg Tablet) 500 mg PO DAILY [facility] Stop: 07/29/25 08:59 Last Admin: 07/29/24 08:38 Dose: 500 mg Atorvastatin Calcium (Atorvastatin 80 Mg Tablet) 80 mg PO HS [facility] Stop: 07/28/25 21:59 Last Admin: 07/28/24 22:03 Dose: Not Given Bisacodyl (Bisacodyl 10 Mg Supp.Rect) 10 mg HI DAILY PRN PRN Reason: Constipation Stop: 07/28/25 15:55 Budesonide/Formoterol Fumarate (Budesonide/Formoterol 160-4.5 Mcg 60 Puff/6 Gm Hfa.Aer.Ad) 2 puff INHALATION BID [facility]O Stop: 07/28/25 20:59 Last Admin: 07/29/24 05:53 Dose: 2 puff Bumetanide (Bumetanide 1 Mg Tablet) 1 mg PO QAM [facility]O Stop: 07/29/25 08:59 Last Admin: 07/29/24 09:37 Dose: 1 mg Cefadroxil (Cefadroxil 500 Mg Capsule) 500 mg PO Q12H [facility] Stop: 08/03/24 09:01 Last Admin: 07/29/24 08:39 Dose: 500 mg Docusate Sodium (Docusate 100 Mg Capsule) 100 mg PO BID PRN PRN Reason: Constipation Stop: 07/28/25 15:55 Last Admin: 07/29/24 08:39 Dose: 100 mg Docusate Sodium (Docusate Enema 283 Mg/5 Ml Enema) 283 mg HI DAILY PRN PRN Reason: Constipation Stop: 07/28/25 15:55 Duloxetine HCl (Duloxetine 30 Mg Capsule.Dr) 30 mg PO QPM [facility] Stop: 07/28/25 20:59 Last Admin: 07/28/24 20:50 Dose: 30 mg Ferrous Sulfate (Ferrous Sulfate 324 Mg Tablet.Dr) 324 mg PO DAILY [facility] Stop: 07/29/25 08:59 Last Admin: 07/29/24 08:39 Dose: 324 mg Lactulose (Lactulose 20 Gm/30 Ml Udc) 30 gm PO DAILY PRN PRN Reason: Constipation Stop: 07/28/25 15:55 Levothyroxine Sodium (Levothyroxine 50 Mcg Tablet) 50 mcg PO DAILY@0630 [facility] Stop: 07/29/25 06:29 Last Admin: 07/29/24 05:30 Dose: Not Given Linaclotide (Linaclotide 72 Mcg Capsule) 72 mcg PO DAILY.0730A [facility] Stop: 07/29/25 07:29 Last Admin: 07/29/24 06:56 Dose: Not Given Melatonin (Melatonin 5 Mg Tablet) 5 mg PO QHS [facility] Stop: 07/28/25 21:59 Last Admin: 07/28/24 22:03 Dose: Not Given Metoprolol Tartrate (Metoprolol Tartrate 12.5 Mg Tablet) 12.5 mg PO BID [facility] Stop: 07/28/25 20:59 Last Admin: 07/29/24 08:39 Dose: 12.5 mg Montelukast Sodium (Montelukast 10 Mg Tablet) 10 mg PO QAM [facility] Stop: 07/29/25 08:59 Last Admin: 07/29/24 08:39 Dose: 10 mg Nitroglycerin (Nitroglycerin 0.4 Mg Tab.Subl) 0.4 mg SUBLINGUAL Q5MIN.X3 PRN PRN Reason: Pain Stop: 07/28/25 16:09 Ondansetron HCl (Ondansetron Odt 4 Mg Tab.Rapdis) 4 mg PO Q8H PRN PRN Reason: Nausea Stop: 07/28/25 17:14 Oxycodone HCl (Oxycodone Ir 5 Mg Tablet) 5 mg PO Q4H PRN PRN Reason: Pain Last Admin: 07/29/24 13:04 Dose: 5 mg Pantoprazole Sodium (Pantoprazole 40 Mg Tablet.Dr) 40 mg PO DAILY@0630 [facility] Stop: 07/29/25 06:29 Last Admin: 07/29/24 05:29 Dose: 40 mg Polyethylene Glycol (Polyethylene Glycol 3350 17 Gm Powd.Pack) 17 gm PO DAILY [facility] Stop: 07/29/25 08:59 Last Admin: 07/29/24 08:40 Dose: 17 gm Prednisone (Prednisone 10 Mg Tablet) 10 mg PO DAILY [facility] Stop: 07/29/25 08:59 Last Admin: 07/29/24 08:39 Dose: 10 mg Sennosides (Sennosides 8.6 Mg Tablet) 17.2 mg PO DAILY@12 PRN PRN Reason: If no BM in 2 days Stop: 07/29/25 11:59 Sodium Chloride (Sodium Chloride 0.9 % 10 Ml Syringe) 0 ml IV-PUSH PRN PRN PRN Reason: Flush Stop: 07/28/25 15:55 Spironolactone (Spironolactone 25 Mg Tablet) 25 mg PO DAILY [facility] Stop: 07/29/25 08:59 Last Admin: 07/29/24 08:38 Dose: 25 mg Vitamin D (Cholecalciferol 25 Mcg (1,000 Units) Tablet) 50 mcg PO DAILY [facility] Stop: 07/29/25 08:59 Last Admin: 07/29/24 08:38 Dose: 50 mcg Exam Physical Exam Vital Signs: Temp Pulse Resp BP Pulse Ox O2 Del Method 98.6 F 73 16 128/71 97 Room Air 07/29/24 05:16 07/29/24 09:22 07/29/24 05:16 07/29/24 09:22 07/29/24 09:22 07/29/24 09:22 Narrative: Pleasant No acute distress Nonlabored breathing Abdomen soft Right knee range of motion limited to 80 degrees Left knee somewhat limited by pain 1+ lower extremity edema Results - Phys. Rehab Labs Labs: Laboratory Results - last 24 hr 07/29/24 04:51 Corrected WBC 7.5 Uncorrected WBC Count 7.5 RBC 3.43 L Hgb 9.5 L Hct 28.3 L MCV 82.7 MCH 27.7 MCHC 33.5 RDW 18.1 H Plt Count 149 L MPV 8.3 Neut % (Auto) 62.5 Lymph % (Auto) 22.5 Dundy % (Auto) 13.0 Eos % (Auto) 1.4 Baso % (Auto) 0.6 Nucleat RBC Rel Count 0.1 Neut # (Auto) 4.7 Lymph # (Auto) 1.7 Dundy # (Auto) 1.0 H Eos # (Auto) 0.1 Baso # (Auto) 0.0 PHA Creatinine Clear 37.33 Sodium 141 Potassium 3.8 Chloride 107 Carbon Dioxide 29.2 Anion Gap 8.6 BUN 26 H Creatinine 1.22 H Est GFR (CKD-EPI) 44.032 Glucose 111 H Calcium 9.0 Total Bilirubin 0.7 AST 20 ALT 8 Alkaline Phosphatase 64 Total Protein 5.9 L Albumin 3.6 Globulin 2.3 Albumin/Globulin Ratio 1.6 Prealbumin 18.3 Additional Results Results Comment: I reviewed clinical lab tests, radiology reports and obtained and summated medical records and have ordered follow up lab tests and imaging studies as needed for rehabilitation care. Individualized Plan of Care Individualized Plan of Care Plan of Care: Individualized Overall Plan of Care: Admit Date/Time: July 28, 2024 Expected LOS: 7 days Expected Discharge Destination: Home Rehabilitation [facility]: Primary Diagnosis: as above Patient?s/Family?s anticipated outcomes/personal goals: To have patient become more independent and to return home. Medical/ Functional Prognosis: Good Anticipated Functional Outcomes/Goals and Interventions: -Therapy Functional Outcome/Goal: Mobility/Locomotion: Patient likely to be independent with ambulation with assistive device. Anticipated interventions: Physician management, PT, OT, Dietitian, Rehab Nursing - Therapy Functional Outcome/Goal: Self Care: Patient likely to be functionally independent for activities of daily living using assistive / adaptive equipment as needed. Anticipated interventions: Physician management, PT, OT, Dietitian, Rehab Nursing - Therapy Functional Outcome/Goal: Bladder/Bowel Management: Patient likely to be independent with bladder care and independent with bowel care. Anticipated interventions: Physician management, PT, OT, Dietitian, Rehab Nursing -Therapy Functional Outcome/Goal: Communication/Cognition: Patient will be able to communicate fully and be safe cognitively. Anticipated interventions: Physician management, PT, OT, Dietitian, Rehab Nursing -Therapy Functional Outcome/Goal: Patient will be independent for bed mobility and transfers Anticipated interventions: Physician management, PT, OT, Dietitian, Rehab Nursing -Therapy Functional Outcome/Goal: Patient will improve endurance to be able to tolerate all daily self care activities and avocational activities. Anticipated interventions: Physician management, PT, OT, Nutrition, Rehab Nursing -Therapy Functional Outcome/Goal: Patient will understand and assimilate / integrate education regarding management of their medical conditions to maintainhealth and wellbeing. Anticipated interventions: Physician management, PT, OT, Dietitian, Rehab Nursing Required Therapy PT: 1.5 hour per day at least 5 days per week with additional therapy on as needed basis. Comments: PT to improve pt's strength, endurance, bed mobility, transfers (sit-stand), standing balance, gait quality on level surfaces and stairs, coordination and functional ADL skills. Will also work to improve pt's safety awareness during transfers and ambulation. OT: 1.5 hour per day at least 5 days per week with additional therapy on as needed basis. Comments: OT for basic ADL re-training (bathing, dressing, toileting, continence, grooming, feeding, transferring), to increase activity tolerance andfunctional mobility and to evaluate for adaptive and assistive devices. Will work to improve pt's endurance and educate pt on fall prevention and energy conservation techniques-pacing strategies and proper breathing techniques duringfunctional tasks. Other: Nutrition, Rehab nursing, Wound, P&O RATIONALE FOR IRF ADMISSION: Patient has both medical and functional complexities that require 24 hour daily monitoring and intervention from Validation Technician as well as other consulting physicians including internal medicine as well as 24 hour daily assembler mechanical ordnance nursing - for medical safe / optimal management. Patient requires interdisciplinary therapy team rehabilitation care including OT, PT, SW, Rehab Nursing, requires and can tolerate at least 3 hoursof daily OT and PT therapy at least 5 days weekly. The following medical conditions significantly impact the rehabilitation process and are being addressed daily and can not be managed at home or in a lesser intense medical setting: Refer to above problem oriented plan of care Assessment/Plan (1) Status post total left knee replacement: Plan: PT to improve pt's strength, endurance, bed mobility, transfers (sit-stand), standing balance, gait quality on level surfaces and stairs, coordination and functional ADL skills. Will also work to improve pt's safety awareness during transfers and ambulation. OT for basic ADL re-training (bathing, dressing, toileting, continence, grooming, feeding, transferring), to increase activity tolerance and functional mobility and to evaluate for adaptive and assistive devices. Will work to improve pt's endurance and educate pt on fall prevention and energy conservationtechniques-pacing strategies and proper breathing techniques during functional tasks. Patient education Pressure ulcer prophylaxis; encourage mobilization, frequent postural changes, pressure-relief techniques DVT prophylaxis Encourage deep breathing exercise incentive spirometry. Monitor bladder. Toileting schedule. Continue current bladder management, with scans as needed and CIC if needed. Start bowel care program every day to obtain continence, prevent ileus. Maintain fall precautions Gait and balance retraining Provision of the necessary gait aids and functional adaptive equipment to enhance the patient's a functional adventist Encourage deep breathing exercises and incentive spirometry RD evaluation Ensure adequate nutrition and hydration Discharge planning. (2) Impaired mobility and activities of daily living: (3) Anemia: (4) Irritable bowel syndrome with constipation: (5) Osteoporosis without current pathological fracture: (6) Chronic pain: (7) CHF (congestive heart failure): (8) Sleep apnea: (9) History of revision of total replacement of right knee joint: (10) Hypertension: (11) Hypothyroidism: (12) CKD (chronic kidney disease): Plan Ms. Bradford is a 84 year old female with multiple complex medical comorbidities including CHF status post CABG, CKD, sleep apnea, hypertension, and history of right total knee arthroplasty status post revision presenting with functional decline after left total knee arthroplasty. -Trend hemoglobin and renal function -Monitor daily weights ?Resume home medications, trend heart rate blood pressure, monitor for orthostasis -Therapy as ordered -Plan of care as below Hospitalist to assist with management of comorbid medical conditions Pain control: Wean opioids. Bowel and bladder: Continent. Skin: Turn and position for offloading. Monitor op site. Sleep: Optimize sleep/wake cycle. DVT prophylaxis: Anticoagulated with Eliquis. Functional status: Impaired see PT/OT. Discharge planning: Home as early as weekend v. early next week-caregiver for with dementia. I completed a substantive portion of this encounter, the medical decision makingportion of this note in its entirety, including Allied health note review, nursing note review, environmental remediation consultant note review, discussion with nursing and case management, and more than 50% of my time was spent on counseling and coordination of care, time spent 70 minutes Patient was personally seen by me, Dr. Farrell, on the day of encounter, within 24hours of rehab admission, reviewed the history and the relevant portions of the chart, including current orders, allied health and environmental remediation consultant notes, labs/imaging and performed chua elements of exam and I formulated the plan of care and facilitated the medical decision making. Documented By: Tuan Farrell MD 07/29/24 1311 Signed By: <Electronically signed by Tuan Farrell MD> 07/29/24 1322 [facility] Work Phone: [phone] [place] [address] Physiatry (Rehab) H&P Signed Patient: Jemima Bradford MR#: [id number] : 1940 Acct:[id number] Age/Sex: 84 / F Adm Date: 5 Loc: Room: 9Q8221-4 Type: ADM IN Attending Dr: Tuan Farrell MD Copies to: MD Jasmyne Jiang, SWING FRAME GRINDER OPERATOR, LAMBSKIN TRIMMER~ Date of Service: 07/29/2024 HPI The patient was seen and examined on: 07/29/24 Etiologic Diagnosis/Impairment Group: [id number] Chief complaint: weakness, functional decline History of Present Illness: Ms. Bradford is a 84 year old female with multiple complex medical comorbidities including CHF status post CABG, CKD, sleep apnea, hypertension, and history of right total knee arthroplasty status post revision presenting with functional decline after left total knee arthroplasty. Today she feels generally well. Her pain and weakness is limiting her progress in therapy. 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 She has apprehension regarding her recovery as she says her right total knee was messed up [facility] and required revision surgery at [facility]. We reviewed her labs and her medications. She has good understanding of her comoribidities. [facility] Medical History History of ankle fracture left with repair, plates and screws Left knee pain Wears hearing aid in both ears Stress incontinence in female Gaviria esophagus Hypothyroidism Right hip pain Left knee pain Chronic pain Lung cancer Polymyalgia rheumatica Abnormal colonoscopy history of polyps Breast cancer right side History of cataract Kidney stones Stage 3 chronic kidney disease dx 2019 GERD (gastroesophageal reflux disease) CHF (congestive heart failure) since having the CABG History of atrial fibrillation Murmur Arthritis IBS (irritable bowel syndrome) Hiatal hernia Sleep apnea cpap History of revision of total replacement of right knee joint Trigger finger Asthma Hypertension CVA (cerebral vascular accident) Surgical History Status post total left knee replacement History of tubal ligation History of lumpectomy of right breast and radiation for breast cancer History of phacoemulsification of cataract of both eyes with intraocular lens implantation History of cardiac catheterization stents History of thoracotomy part of left lung removed History of cystoscopy H/O cardiac radiofrequency ablation 2020 Aortic valve replaced done at time of CABG Hx of CABG x 1 done 11/2019 History of total right knee replacement x 2 Problem List clean-up per request of Phys. EHR Cmte History of bunionectomy History of cholecystectomy History of arthroscopy of both knees H/O abdominoplasty History of carpal tunnel release of both wrists bilaterally Problem List clean-up per request of Phys. EHR Cmte H/O lithotripsy History of appendectomy History of tonsillectomy and adenoidectomy Family History Mother H/O endarterectomy H/O angioplasty Pancreatic cancer Pacemaker Diabetes Father H/O endarterectomy Hx of CABG Stroke Diabetes Heart disease Brother Bladder cancer Hx of CABG Sister Breast cancer Sister Breast cancer Brother Diabetes Legacy FamHx Relation: Brother(s) Exposure to Agent Irion Legacy FamHx Relation: Brother(s) Pacemaker Father No problems noted. Mother No problems noted. Sister No problems noted. Social History Smoking Status: Former smoker Tobacco Type: cigarettes Substance Use Type: None Social History Comments: several cysto's cardiac cath with stent multiple D&C's several colonoscopies wirh polypectomies another cardiac cath uses cpap cysto urethral laser with stone removal with stent Review of Systems Review of Systems All other systems reviewed & are negative unless noted below or in HPI Meds Medications and Allergies Allergies Iodinated Contrast Media (Iodinated Contrast- Oral and IV Dye) Allergy (Severe, Verified 07/27/24 10:25) Anaphylaxis adhesive tape (Tape) Allergy (Unknown, Verified 07/16/24 10:01) Blister chlorpromazine (From Thorazine) Allergy (Unknown, Verified 07/16/24 10:01) Hives clarithromycin (From Biaxin) Allergy (Unknown, Verified 07/16/24 10:01) Unknown Reaction hylan G-F 20 (From Synvisc) Allergy (Unknown, Verified 07/16/24 10:01) Itching, swelling nickel Allergy (Unknown, Verified 07/16/24 10:01) Swelling nitrous oxide Allergy (Unknown, Verified 07/16/24 10:01) Vomiting simvus Allergy (Unknown, Uncoded 06/02/24 10:03) Unknown Reaction metal Allergy (Uncoded 06/02/24 10:03) Edema Home and Active Meds: Home Medications albuterol sulfate 90 mcg/actuation aerosol inhaler 1 puff inhalation Q4-6H PRN Shortness Of Breath Or Wheezing 02/06/18 [History Confirmed 07/28/24] chromium picolinate 1,000 mcg tablet 500 mcg PO DAILY blood sugar 02/06/18 [History Confirmed 07/16/24] melatonin 10 mg tablet 5 mg PO HS PRN Sleep 02/06/18 [History Confirmed 07/28/24] metoprolol tartrate 25 mg tablet 12.5 mg PO BID 02/06/18 [History Confirmed 07/28/24] nitroglycerin 0.4 mg sublingual tablet 0.4 mg sublingual Q5MIN PRN Pain 02/06/18[History Confirmed 07/28/24] rosuvastatin 40 mg tablet 40 mg PO HS 11/10/18 [History Confirmed 07/28/24] coenzyme Q10 100 mg capsule (Co Q-10) 100 mg PO QHS 06/13/20 [History Confirmed 07/28/24] spironolactone 25 mg tablet (Aldactone) 25 mg PO DAILY 06/13/20 [History Confirmed 07/28/24] anastrozole 1 mg tablet 1 mg PO DAILY 01/16/23 [History Confirmed 07/28/24] apixaban 5 mg tablet (Eliquis) 5 mg PO BID 01/16/23 [History Confirmed 07/28/24] calcium 600 mg (as carbonate)-vitamin D3 5 mcg (200 unit) capsule (Calcium 600 +D(3)) 1 cap PO DAILY 01/16/23 [History Confirmed 07/16/24] levothyroxine 50 mcg tablet 50 mcg PO QAM 01/16/23 [History Confirmed 07/28/24] linaclotide 290 mcg capsule (Linzess) 72 mcg PO DAILY.0730A 01/16/23 [History Confirmed 07/28/24] magnesium 250 mg tablet 600 mg PO DAILY 01/16/23 [History Confirmed 07/16/24] montelukast 10 mg tablet 10 mg PO QAM 01/16/23 [History Confirmed 07/28/24] bumetanide 1 mg PO QAM 09/04/23 [History Confirmed 07/28/24] Lactobacillus rhamnosus-Bifidobac. animalis 3 billion cell capsule (Weave) 1 cap PO DAILY 06/15/24 [History Confirmed 07/16/24] ascorbic acid (vitamin C) 500 mg tablet (Vitamin C) 500 mg PO daily 30 days #30 caps 06/15/24 [Rx Confirmed 07/28/24] ferrous sulfate 325 mg (65 mg iron) tablet (Iron (ferrous sulfate)) 325 mg PO tid 30 days #90 caps 06/15/24 [Rx Confirmed 07/28/24] acetaminophen 650 mg tablet,extended release (8 Hour Pain Reliever) 1,300 mg PO Q12HR PRN fever or pain 07/13/24 [History Confirmed 07/16/24] cholecalciferol (vitamin D3) 50 mcg (2,000 unit) capsule (Vitamin D3) 25 mcg PO DAILY 07/13/24 [History Confirmed 07/28/24] duloxetine 30 mg capsule,delayed release 30 mg PO QPM 07/13/24 [History Confirmed 07/28/24] esomeprazole magnesium 40 mg capsule,delayed release 40 mg PO QAM 07/13/24 [History Confirmed 07/28/24] fluticasone furoate 200 mcg-vilanterol 25 mcg/dose inhalation powder (Breo Ellipta) 1 inh inhalation QAM 07/13/24 [History Confirmed 07/28/24] inulin-sorbitol 2 gram chewable tablet (Fiber Supplement (inulin)) 5 tab PO DAILY 07/13/24 [HistoryConfirmed 07/16/24] acetaminophen 500 mg tablet 1,000 mg (2 x 500 mg) PO Q8H 30 days #180 tabs 07/16/24 [Rx Confirmed 07/28/24] cefadroxil 500 mg capsule 500 mg PO Q12H 7 days #14 tabs 07/16/24 [Rx Confirmed 07/28/24] ondansetron HCl 4 mg tablet 4 mg PO Q8H PRN Nausea #9 tabs 07/16/24 [Rx Confirmed 07/28/24] oxycodone 5 mg tablet 5 mg PO Q4H PRN Pain 7 days #42 tabs 07/16/24 [Rx Confirmed 07/28/24] polyethylene glycol 3350 17 gram/dose oral powder (Miralax) 17 g PO daily 7 days#7 packets 07/16/24[Rx Confirmed 07/28/24] prednisone 10 mg tablet 10 mg PO daily 10 days #10 tabs 07/16/24 [Rx Confirmed 07/28/24] sennosides 8.6 mg-docusate sodium 50 mg tablet (Senokot-S) 2 tab PO daily 30 days #60 tabs 07/16/24[Rx Confirmed 07/16/24] tramadol 50 mg tablet 50 mg PO q6h PRN Pain 7 days #28 tabs 07/16/24 [Rx Confirmed 07/16/24] Active Medications Acetaminophen (Acetaminophen 500 Mg Tablet) 1,000 mg PO Q8H [facility] Stop: 07/28/25 21:59 Last Admin: 07/29/24 13:04 Dose: 1,000 mg Al Hydrox/Mg Hydrox/Simethicone (Mag Hydrox/Al Hydrox/Simeth 30 Ml Udc) 30 ml PO Q4H PRN PRN Reason: Indigestion Stop: 07/28/25 15:55 Albuterol (Albuterol Hfa 60 Puff/8 Gram Inhaler) 1 puff INHALATION Q4H PRN PRN Reason: Shortness Of Breath Or Wheezing Stop: 07/28/25 16:08 Anastrozole (Anastrozole 1 Mg Tablet) 1 mg PO QHS [facility] Stop: 07/30/25 21:59 Apixaban (Apixaban 5 Mg Tablet) 5 mg PO BID [facility] Stop: 07/28/25 20:59 Last Admin: 07/29/24 08:38 Dose: 5 mg Ascorbic Acid (Ascorbic Acid 500 Mg Tablet) 500 mg PO DAILY [facility] Stop: 07/29/25 08:59 Last Admin: 07/29/24 08:38 Dose: 500 mg Atorvastatin Calcium (Atorvastatin 80 Mg Tablet) 80 mg PO HS [facility] Stop: 07/28/25 21:59 Last Admin: 07/28/24 22:03 Dose: Not Given Bisacodyl (Bisacodyl 10 Mg Supp.Rect) 10 mg HI DAILY PRN PRN Reason: Constipation Stop: 07/28/25 15:55 Budesonide/Formoterol Fumarate (Budesonide/Formoterol 160-4.5 Mcg 60 Puff/6 Gm Hfa.Aer.Ad) 2 puff INHALATION BID [facility] Stop: 07/28/25 20:59 Last Admin: 07/29/24 05:53 Dose: 2 puff Bumetanide (Bumetanide 1 Mg Tablet) 1 mg PO QAM [facility] Stop: 07/29/25 08:59 Last Admin: 07/29/24 09:37 Dose: 1 mg Cefadroxil (Cefadroxil 500 Mg Capsule) 500 mg PO Q12H [facility] Stop: 08/03/24 09:01 Last Admin: 07/29/24 08:39 Dose: 500 mg Docusate Sodium (Docusate 100 Mg Capsule) 100 mg PO BID PRN PRN Reason: Constipation Stop: 07/28/25 15:55 Last Admin: 07/29/24 08:39 Dose: 100 mg Docusate Sodium (Docusate Enema 283 Mg/5 Ml Enema) 283 mg HI DAILY PRN PRN Reason: Constipation Stop: 07/28/25 15:55 Duloxetine HCl (Duloxetine 30 Mg Capsule.Dr) 30 mg PO QPM [facility] Stop: 07/28/25 20:59 Last Admin: 07/28/24 20:50 Dose: 30 mg Ferrous Sulfate (Ferrous Sulfate 324 Mg Tablet.Dr) 324 mg PO DAILY [facility] Stop: 07/29/25 08:59 Last Admin: 07/29/24 08:39 Dose: 324 mg Lactulose (Lactulose 20 Gm/30 Ml Udc) 30 gm PO DAILY PRN PRN Reason: Constipation Stop: 07/28/25 15:55 Levothyroxine Sodium (Levothyroxine 50 Mcg Tablet) 50 mcg PO DAILY@0630 [facility] Stop: 07/29/25 06:29 Last Admin: 07/29/24 05:30 Dose: Not Given Linaclotide (Linaclotide 72 Mcg Capsule) 72 mcg PO DAILY.0730A [facility] Stop: 07/29/25 07:29 Last Admin: 07/29/24 06:56 Dose: Not Given Melatonin (Melatonin 5 Mg Tablet) 5 mg PO QHS [facility] Stop: 07/28/25 21:59 Last Admin: 07/28/24 22:03 Dose: Not Given Metoprolol Tartrate (Metoprolol Tartrate 12.5 Mg Tablet) 12.5 mg PO BID [facility] Stop: 07/28/25 20:59 Last Admin: 07/29/24 08:39 Dose: 12.5 mg Montelukast Sodium (Montelukast 10 Mg Tablet) 10 mg PO QAM [facility] Stop: 07/29/25 08:59 Last Admin: 07/29/24 08:39 Dose: 10 mg Nitroglycerin (Nitroglycerin 0.4 Mg Tab.Subl) 0.4 mg SUBLINGUAL Q5MIN.X3 PRN PRN Reason: Pain Stop: 07/28/25 16:09 Ondansetron HCl (Ondansetron Odt 4 Mg Tab.Rapdis) 4 mg PO Q8H PRN PRN Reason: Nausea Stop: 07/28/25 17:14 Oxycodone HCl (Oxycodone Ir 5 Mg Tablet) 5 mg PO Q4H PRN PRN Reason: Pain Last Admin: 07/29/24 13:04 Dose: 5 mg Pantoprazole Sodium (Pantoprazole 40 Mg Tablet.) 40 mg PO DAILY@0630 [facility] Stop: 07/29/25 06:29 Last Admin: 07/29/24 05:29 Dose: 40 mg Polyethylene Glycol (Polyethylene Glycol 3350 17 Gm Powd.Pack) 17 gm PO DAILY [facility] Stop: 07/29/25 08:59 Last Admin: 07/29/24 08:40 Dose: 17 gm Prednisone (Prednisone 10 Mg Tablet) 10 mg PO DAILY [facility] Stop: 07/29/25 08:59 Last Admin: 07/29/24 08:39 Dose: 10 mg Sennosides (Sennosides 8.6 Mg Tablet) 17.2 mg PO DAILY@12 PRN PRN Reason: If no BM in 2 days Stop: 07/29/25 11:59 Sodium Chloride (Sodium Chloride 0.9 % 10 Ml Syringe) 0 ml IV-PUSH PRN PRN PRN Reason: Flush Stop: 07/28/25 15:55 Spironolactone (Spironolactone 25 Mg Tablet) 25 mg PO DAILY [facility] Stop: 07/29/25 08:59 Last Admin: 07/29/24 08:38 Dose: 25 mg Vitamin D (Cholecalciferol 25 Mcg (1,000 Units) Tablet) 50 mcg PO DAILY [facility] Stop: 07/29/25 08:59 Last Admin: 07/29/24 08:38 Dose: 50 mcg Exam Physical Exam Vital Signs: Temp Pulse Resp BP Pulse Ox O2 Del Method 98.6 F 73 16 128/71 97 Room Air 07/29/24 05:16 07/29/24 09:22 07/29/24 05:16 07/29/24 09:22 07/29/24 09:22 07/29/24 09:22 Narrative: Pleasant No acute distress Nonlabored breathing Abdomen soft Right knee range of motion limited to 80 degrees Left knee somewhat limited by pain 1+ lower extremity edema Results - Phys. Rehab Labs Labs: Laboratory Results - last 24 hr 07/29/24 04:51 Corrected WBC 7.5 Uncorrected WBC Count 7.5 RBC 3.43 L Hgb 9.5 L Hct 28.3 L MCV 82.7 MCH 27.7 MCHC 33.5 RDW 18.1 H Plt Count 149 L MPV 8.3 Neut % (Auto) 62.5 Lymph % (Auto) 22.5 Dundy % (Auto) 13.0 Eos % (Auto) 1.4 Baso % (Auto) 0.6 Nucleat RBC Rel Count 0.1 Neut # (Auto) 4.7 Lymph # (Auto) 1.7 Dundy # (Auto) 1.0 H Eos # (Auto) 0.1 Baso # (Auto) 0.0 PHA Creatinine Clear 37.33 Sodium 141 Potassium 3.8 Chloride 107 Carbon Dioxide 29.2 Anion Gap 8.6 BUN 26 H Creatinine 1.22 H Est GFR (CKD-EPI) 44.032 Glucose 111 H Calcium 9.0 Total Bilirubin 0.7 AST 20 ALT 8 Alkaline Phosphatase 64 Total Protein 5.9 L Albumin 3.6 Globulin 2.3 Albumin/Globulin Ratio 1.6 Prealbumin 18.3 Additional Results Results Comment: I reviewed clinical lab tests, radiology reports and obtained and summated medical records and haveordered follow up lab tests and imaging studies as needed for rehabilitation care. Individualized Plan of Care Individualized Plan of Care Plan of Care: Individualized Overall Plan of Care: Admit Date/Time: July 28, 2024 Expected LOS: 7 days Expected Discharge Destination: Home Rehabilitation [facility]: Primary Diagnosis: as above Patient?s/Family?s anticipated outcomes/personal goals: To have patient become more independent and to return home. Medical/ Functional Prognosis: Good Anticipated Functional Outcomes/Goals and Interventions: -Therapy Functional Outcome/Goal: Mobility/Locomotion: Patient likely to be independent with ambulation with assistive device. Anticipated interventions: Physician management, PT, OT, Dietitian, Rehab Nursing - Therapy Functional Outcome/Goal: Self Care: Patient likely to be functionally independent for activities of daily living using assistive / adaptive equipment as needed. Anticipated interventions: Physician management, PT, OT, Dietitian, Rehab Nursing - Therapy Functional Outcome/Goal: Bladder/Bowel Management: Patient likely to be independent with bladder care and independent with bowel care. Anticipated interventions: Physician management, PT, OT, Dietitian, Rehab Nursing -Therapy Functional Outcome/Goal: Communication/Cognition: Patient will be able to communicate fully and be safe cognitively. Anticipated interventions: Physician management, PT, OT, Dietitian, Rehab Nursing -Therapy Functional Outcome/Goal: Patient will be independent for bed mobility and transfers Anticipated interventions: Physician management, PT, OT, Dietitian, Rehab Nursing -Therapy Functional Outcome/Goal: Patient will improve endurance to be able to tolerate all daily self care activities and avocational activities. Anticipated interventions: Physician management, PT, OT, Nutrition, Rehab Nursing -Therapy Functional Outcome/Goal: Patient will understand and assimilate / integrate education regarding management of their medical conditions to maintainhealth and wellbeing. Anticipated interventions: Physician management, PT, OT, Dietitian, Rehab Nursing Required Therapy PT: 1.5 hour per day at least 5 days per week with additional therapy on as needed basis. Comments: PT to improve pt's strength, endurance, bed mobility, transfers (sit- stand), standing balance, gait quality on level surfaces and stairs, coordination and functional ADL skills. Will also work to improve pt's safety awareness during transfers and ambulation. OT: 1.5 hour per day at least 5 days per week with additional therapy on as needed basis. Comments: OT for basic ADL re-training (bathing, dressing, toileting, continence, grooming, feeding, transferring), to increase activity tolerance andfunctional mobility and to evaluate for adaptive and assistive devices. Will work to improve pt's endurance and educate pt on fall prevention and energy conservation techniques-pacing strategies and proper breathing techniques duringfunctional tasks. Other: Nutrition, Rehab nursing, Wound, P&O RATIONALE FOR IRF ADMISSION: Patient has both medical and functional complexities that require 24 hour daily monitoring and intervention from Validation Technician as well as other consulting physicians including internal medicine as well as 24 hour daily assembler mechanical ordnance nursing - for medical safe / optimal manageme nt. Patient requires interdisciplinary therapy team rehabilitation care including OT, PT, SW, RehabNursing, requires and can tolerate at least 3 hoursof daily OT and PT therapy at least 5 days weekly. The following medical conditions significantly impact the rehabilitation process and are being addressed daily and can not be managed at home or in a lesser intense medical setting: Refer to above problem oriented plan of care Assessment/Plan (1) Status post total left knee replacement: Plan: PT to improve pt's strength, endurance, bed mobility, transfers (sit-stand), standing balance, gaitquality on level surfaces and stairs, coordination and functional ADL skills. Will also work to improve pt's safety awareness during transfers and ambulation. OT for basic ADL re-training (bathing, dressing, toileting, continence, grooming, feeding, transferring), to increase activity tolerance and functional mobility and to evaluate for adaptive and assistive devices. Will work to improve pt's endurance and educate pt on fall prevention and energy conser vationtechniques-pacing strategies and proper breathing techniques during functional tasks. Patient education Pressure ulcer prophylaxis; encourage mobilization, frequent postural changes, pressure-relief techniques DVT prophylaxis Encourage deep breathing exercise incentive spirometry. Monitor bladder. Toileting schedule. Continue current bladder management, with scans as needed and CIC if needed. Start bowel care program every day to obtain continence, prevent ileus. Maintain fall precautions Gait and balance retraining Provision of the necessary gait aids and functional adaptive equipment to enhance the patient's a functional adventist Encourage deep breathing exercises and incentive spirometry RD evaluation Ensure adequate nutrition and hydration Discharge planning. (2) Impaired mobility and activities of daily living: (3) Anemia: (4) Irritable bowel syndrome with constipation: (5) Osteoporosis without current pathological fracture: (6) Chronic pain: (7) CHF (congestive heart failure): (8) Sleep apnea: (9) History of revision of total replacement of right knee joint: (10) Hypertension: (11) Hypothyroidism: (12) CKD (chronic kidney disease): Plan Ms. Bradford is a 84 year old female with multiple complex medical comorbidities including CHF status post CABG, CKD, sleep apnea, hypertension, and history of right total knee arthroplasty status post revision presenting with functional decline after left total knee arthroplasty. -Trend hemoglobin and renal function -Monitor daily weights ?Resume home medications, trend heart rate blood pressure, monitor for orthostasis -Therapy as ordered -Plan of care as below Hospitalist to assist with management of comorbid medical conditions Pain control: Wean opioids. Bowel and bladder: Continent. Skin: Turn and position for offloading. Monitor op site. Sleep: Optimize sleep/wake cycle. DVT prophylaxis: Anticoagulated with Eliquis. Functional status: Impaired see PT/OT. Discharge planning: Home as early as weekend v. early next week-caregiver for with dementia. I completed a substantive portion of this encounter, the medical decision makingportion of this note in its entirety, including Allied health note review, nursing note review, environmental remediation consultant note review,discussion with nursing and case management, and more than 50% of my time was spent on counseling and coordination of care, time spent 70 minutes Patient was personally seen by me, Dr. Farrell, on the day of encounter, within 24hours of rehab admission, reviewed the history and the relevant portions of the chart, including current orders, alliedhealth and environmental remediation consultant notes, labs/imaging and performed chua elements of exam and I formulated the plan of care and facilitated the medical decision making. Documented By: Tuan Farrell MD 07/29/24 1311 Signed By: 07/29/24 1322 [facility]01-28-2025 Evaluation note* Diagnosis Onset Date Resolution Status Admit Date Anemia acute July 28, 2024 2:50pm GERD (gastroesophageal reflu x disease) acute July 28 2:50pm Impaired mobility and activities of daily living acute 2024 2:50pm Irritable bowel syndrome wit h constipation acute July 28 2:50pm Status post total left knee replacement acute July 28 2:50pm CHF (congestive heart failure) inact jacinto July 28, 2024 2:50pm Chronic pain inactive July 2:50pm CKD (chronic kidney disease) inactiv e July 28, 2024 2:50pm History of revision of total replacement of right knee joint inactive July 28 2:50pm Hypertension inactive July 2:50pm Hypothyroidism inactive July 282024 2:50pm Osteoporosis without current pathological fracture inactive July 282024 2:50pm Sleep apnea inactive July 28, 2024 2:50pm Aftercare following left kne e joint replacement surgery acute 2024 1:14pm Status post total left knee replacement acute August 19, 025 1:14pm Aftercare following left kne e joint replacement surgery acute 2024 10:36am Status post total left knee replacement acute August 26, 2 025 10:36am Anemia acute September 09 10:46am 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 10:46am GERD (gastroesophageal reflu x disease) acute September 09, 2024 10:46am Irritable bowel syndrome wit h constipation acute September 09, 2024 10:46am Aftercare following left kne e joint replacement surgery acute September 09, 2024 11:55am Status post total left knee replacement acute September 09, 2024 11:55am Aftercare following left kne e joint replacement surgery acute October 01, 2024 9:29am Status post total left knee replacement acute October 01, 2024 9:29am Aftercare following left kne e joint replacement surgery acute October 21, 2024 11:15am Status post total left knee replacement acute October 21, 2024 11:15am [facility] Work Phone: [phone]) 866-232801-28-2025 [place] [address] Physiatry (Rehab) Consult Note Signed Patient: Jemima Bradford MR#: [id number] : 1940 Acct:[id number] Age/Sex: 84 / F Adm Date: 5 Loc: 4N Room: 9R9788-9 Type: [facility] Attending Dr: Sridevi Tovar II, MD Copies to: MD Sridevi Shay MD Susan M Krebs, APRN, LAMBSKIN TRIMMER~ HPI Consult Date: 07/28/24 Requesting Physician: Sridevi Tovar II, MD Primary Care Provider: Jasmyne Casillas APRN, DRESSING ROOM ATTENDANT-C Consult Narrative HPI: Ms. Bradford is a 84 year old female with PMH hypertension, IBS, breast cancer as well as lung cancer status post resection who presented to the hospital for elective left TKA. She is doing well post op. No major concerns today. She lives with her spouse in a 1 story home with first floor set up. IND at baseline. She has worked with therapy. She reports that she tolerated but not at her functional baseline. Hopeful to go to inpatient rehab. Review of Systems Review of Systems All other systems reviewed & are negative unless noted below or in HPI [facility] Medical History History of ankle fracture left with repair, plates and screws Left knee pain Wears hearing aid in both ears Stress incontinence in female Gaviria esophagus Hypothyroidism Right hip pain Left knee pain Chronic pain Lung cancer Polymyalgia rheumatica Abnormal colonoscopy history of polyps Breast cancer right side History of cataract Kidney stones Stage 3 chronic kidney disease dx 2020 GERD (gastroesophageal reflux disease) CHF (congestive heart failure) since having the CABG History of atrial fibrillation Murmur Arthritis IBS (irritable bowel syndrome) Hiatal hernia Sleep apnea cpap History of revision of total replacement of right knee joint Trigger finger Asthma Hypertension CVA (cerebral vascular accident) Surgical History History of tubal ligation History of lumpectomy of right breast and radiation for breast cancer History of phacoemulsification of cataract of both eyes with intraocular lens implantation History of cardiac catheterization stents History of thoracotomy part of left lung removed History of cystoscopy H/O cardiac radiofrequency ablation 2020 Aortic valve replaced done at time of CABG Hx of CABG x 1 done 11/2019 History of total right knee replacement x 2 Problem List clean-up per request of Phys. EHR Cmte History of bunionectomy History of cholecystectomy History of arthroscopy of both knees H/O abdominoplasty History of carpal tunnel release of both wrists bilaterally Problem List clean-up per request of Phys. EHR Cmte H/O lithotripsy History of appendectomy History of tonsillectomy and adenoidectomy Family History Mother H/O endarterectomy H/O angioplasty Pancreatic cancer Pacemaker Diabetes Father H/O endarterectomy Hx of CABG Stroke Diabetes Heart disease Brother Bladder cancer Hx of CABG Sister Breast cancer Sister Breast cancer Brother Diabetes Legacy FamHx Relation: Brother(s) Exposure to Agent Irion Legacy FamHx Relation: Brother(s) Pacemaker Father No problems noted. Mother No problems noted. Sister No problems noted. Social History Smoking Status: Former smoker Tobacco Type: cigarettes Substance Use Type: None Social History Comments: several cysto's cardiac cath with stent multiple D&C's several colonoscopies wirh polypectomies another cardiac cath uses cpap cysto urethral laser with stone removal with stent Meds Medications and Allergies Allergies Iodinated Contrast Media (Iodinated Contrast- Oral and IV Dye) Allergy (Severe, Verified 07/27/24 10:25) Anaphylaxis adhesive tape (Tape) Allergy (Unknown, Verified 07/16/24 10:01) Blister chlorpromazine (From Thorazine) Allergy (Unknown, Verified 07/16/24 10:01) Hives clarithromycin (From Biaxin) Allergy (Unknown, Verified 07/16/24 10:01) Unknown Reaction hylan G-F 20 (From LaunchPoint) Allergy (Unknown, Verified 07/16/24 10:01) Itching, swelling nickel Allergy (Unknown, Verified 07/16/24 10:01) Swelling nitrous oxide Allergy (Unknown, Verified 07/16/24 10:01) Vomiting simvus Allergy (Unknown, Uncoded 06/02/24 10:03) Unknown Reaction metal Allergy (Uncoded 06/02/24 10:03) Edema Home Medications albuterol sulfate 90 mcg/actuation aerosol inhaler 1 puff inhalation Q4-6H PRN Shortness Of Breath Or Wheezing 02/06/18 [History Confirmed 07/16/24] chromium picolinate 1,000 mcg tablet 500 mcg PO DAILY blood sugar 02/06/18 [History Confirmed 07/16/24] melatonin 10 mg tablet 5 mg PO HS PRN Sleep 02/06/18 [History Confirmed 07/16/24] metoprolol tartrate 25 mg tablet 12.5 mg PO BID 02/06/18 [History Confirmed 07/27/24] nitroglycerin 0.4 mg sublingual tablet 0.4 mg sublingual Q5MIN PRN Pain 02/06/18[History Confirmed 07/16/24] rosuvastatin 40 mg tablet 40 mg PO HS 11/10/18 [History Confirmed 07/16/24] coenzyme Q10 100 mg capsule (Co Q-10) 100 mg PO QHS 06/13/20 [History Confirmed 07/16/24] spironolactone 25 mg tablet (Aldactone) 25 mg PO DAILY 06/13/20 [History Confirmed 07/16/24] anastrozole 1 mg tablet 1 mg PO DAILY 01/16/23 [History Confirmed 07/16/24] apixaban 5 mg tablet (Eliquis) 5 mg PO BID 01/16/23 [History Confirmed 07/27/24] calcium 600 mg (as carbonate)-vitamin D3 5 mcg (200 unit) capsule (Calcium 600 +D(3)) 1 cap PO DAILY 01/16/23 [History Confirmed 07/16/24] levothyroxine 50 mcg tablet 50 mcg PO QAM 01/16/23 [History Confirmed 07/27/24] linaclotide 290 mcg capsule (Linzess) 72 mcg PO DAILY.0730A 07/19/23 [History Confirmed 07/28/24] magnesium 250 mg tablet 600 mg PO DAILY 01/16/23 [History Confirmed 07/16/24] montelukast 10 mg tablet 10 mg PO QAM 01/16/23 [History Confirmed 07/27/24] bumetanide 1 mg PO QAM 09/04/23 [History Confirmed 07/16/24] Lactobacillus rhamnosus-Bifidobac. animalis 3 billion cell capsule (Weave) 1 cap PO DAILY 06/15/24 [History Confirmed 07/16/24] ascorbic acid (vitamin C) 500 mg tablet (Vitamin C) 500 mg PO daily 30 days #30 caps 06/15/24 [Rx Confirmed 07/16/24] ferrous sulfate 325 mg (65 mg iron) tablet (Iron (ferrous sulfate)) 325 mg PO tid 30 days #90 caps 06/15/24 [Rx Confirmed 07/16/24] acetaminophen 650 mg tablet,extended release (8 Hour Pain Reliever) 1,300 mg PO Q12HR PRN fever or pain 07/13/24 [History Confirmed 07/16/24] cholecalciferol (vitamin D3) 50 mcg (2,000 unit) capsule (Vitamin D3) 25 mcg PO DAILY 07/13/24 [History Confirmed 07/27/24] duloxetine 30 mg capsule,delayed release 30 mg PO QPM 07/13/24 [History Confirmed 07/16/24] esomeprazole magnesium 40 mg capsule,delayed release 40 mg PO QAM 07/13/24 [History Confirmed 07/27/24] fluticasone furoate 200 mcg-vilanterol 25 mcg/dose inhalation powder (Breo Ellipta) 1 inh inhalation QAM 07/13/24 [History Confirmed 07/16/24] inulin-sorbitol 2 gram chewable tablet (Fiber Supplement (inulin)) 5 tab PO DAILY 07/13/24 [HistoryConfirmed 07/16/24] acetaminophen 500 mg tablet 1,000 mg (2 x 500 mg) PO Q8H 30 days #180 tabs 07/16/24 [Rx Confirmed 07/16/24] cefadroxil 500 mg capsule 500 mg PO Q12H 7 days #14 tabs 07/16/24 [Rx Confirmed 07/16/24] ondansetron HCl 4 mg tablet 4 mg PO Q8H PRN Nausea #9 tabs 07/16/24 [Rx Confirmed 07/16/24] oxycodone 5 mg tablet 5 mg PO Q4H PRN Pain 7 days #42 tabs 07/16/24 [Rx Confirmed 07/16/24] polyethylene glycol 3350 17 gram/dose oral powder (Miralax) 17 g PO daily 7 days#7 packets 07/16/24[Rx Confirmed 07/16/24] prednisone 10 mg tablet 10 mg PO daily 10 days #10 tabs 07/16/24 [Rx Confirmed 07/16/24] sennosides 8.6 mg-docusate sodium 50 mg tablet (Senokot-S) 2 tab PO daily 30 days #60 tabs 07/16/24[Rx Confirmed 07/16/24] tramadol 50 mg tablet 50 mg PO q6h PRN Pain 7 days #28 tabs 07/16/24 [Rx Confirmed 07/16/24] Exam Physical Exam Vital Signs: Temp Pulse Resp BP Pulse Ox O2 Del Method O2 Flow Rate 98.8 F 69 16 131/71 96 Room Air 2 07/28/24 12:09 07/28/24 12:09 07/28/24 12:09 07/28/24 12:09 07/28/24 12:09 07/28/24 12:24 07/27/24 19:19 Narrative: Gen: Awake, oriented, cooperative. HEENT: Atraumatic, PERRL, EOMI Resp: No respiratory distress Cardio: Extremities well perfused MSK: Moves all extremities spontaneously Neuro: CN grossly intact Skin: No swelling, erythema, ecchymosis appreciated Psych: Mood and affect normal Results - Phys. Rehab Labs Labs: Laboratory Results - last 24 hr 07/28/24 05:25 Corrected WBC 7.7 Uncorrected WBC Count 7.7 RBC 3.29 L Hgb 9.4 L Hct 27.3 L MCV 83.0 MCH 28.4 MCHC 34.2 RDW 17.6 H Plt Count 156 MPV 7.9 Neut % (Auto) 74.2 Lymph % (Auto) 16.3 Dundy % (Auto) 9.3 Eos % (Auto) 0.0 Baso % (Auto) 0.2 Nucleat RBC Rel Count 0.0 Neut # (Auto) 5.7 Lymph # (Auto) 1.3 Dundy # (Auto) 0.7 Eos # (Auto) 0.0 Baso # (Auto) 0.0 PHA Creatinine Clear 32.71 Sodium 139 Potassium 3.9 Chloride 105 Carbon Dioxide 26.8 Anion Gap 11.1 BUN 26 H Creatinine 1.37 H Est GFR (CKD-EPI) 38.312 Glucose 122 H Calcium 8.9 Assessment/Plan (1) Primary osteoarthritis of left knee: (2) Left knee pain: (3) S/P total knee arthroplasty: (4) Anemia: (5) Impaired mobility and activities of daily living: Plan This is a 84-year-old female who presents with multifactorial functional declinein the setting of left TKA. She has continued impaired mobility and impaired independence with ADLs and IADLs requiringPT/OT 5-7 days/week 3 hours/day to maximize safety and independence with functional ability and self -care. Primary Rehabilitation Diagnosis: left TKA Patient is appropriate for acute inpatient rehab facility once medically stable per primary serviceand consultants. The patient has functional deficits requiring both active and ongoing therapeutic intervention of at least 2 disciplines of therapy, physical therapy/Occupational Therapy +/- speech t herapy. Patient has worked appropriately with multiple disciplines of therapy on acute care, and demonstrates ability to tolerate and participate and make reasonable gains with at least a 15 hour/week inpatient rehabilitation program. Due to medical complexity as noted, rehabilitation physician supervision is bothreasonable and necessary, including bram-zz-zamk visits at least 3 days/week with the need to treat, manage and modify course of treatment, including participating in at least once weekly interdisciplinary team conferences. The patient requires multidisciplinary rehabilitation treatment including rehabilitation physician at least 3 times per week, 24-hour rehabilitation nursing, physical occupational therapy, plus/minusspeech-language pathology, rehabilitation case management, nutrition services, plus minus rehabilitation psychology. This case cannot be best/most appropriately managed at a lower level of care. Estimated length of rehabilitation stay: 10 Days Prior Level of Function: IND Expected functional status at discharge from rehab: Self-care (ADLs) : Mod I Bed Mobility/Transfers: Mod I Ambulation: Mod I There is a reasonable plan in place for discharge to the community. Overall prognosis is fair to good to make functional gains that would make substantial difference in the eventual discharge setting. Patient was personally seen by me, Dr. Lara, on the day of encounter, reviewed the history and the relevant portions of the chart, including current orders, allied health and environmental remediation consultant notes, labs/imaging and performed chua elements of exam and I formulated the plan of care and facilitated the medical decision making. I completed a substantive portion of this encounter, the medical decision makingportion of this note in its entirety, including Allied health note review, nursing note review, environmental remediation consultant note review,discussion with nursing and case management, and more than 50% of my time was spent on counseling and coordination of care, time spent 60 minutes Documented By: Herb Lara MD [id number] Signed By: 07/28/24 1348 [facility]01-27-2025 Consult note Author Roland Berry [facility] Note Date/Time July 27, 2024 [facility] [address] [place] [address] Hospitalist Consult Note Signed Patient: Jemima Bradford MR#: [id number] : 1940 Acct:[id number] Age/Sex: 84 / F Adm Date: 5 Loc: Room: [address] [place] [address] Type: [facility] Attending Dr: Sridevi Tovar II, MD Copies to: DO Sridevi De Anda MD Susan M Krebs, SWING FRAME GRINDER OPERATOR, LAMBSKIN TRIMMER~ HPI DATE OF CONSULTATION: 07/27/24 REQUESTING PROVIDER: Sridevi Tovar II Consult Narrative Reason for Consult: hypertension HPI: Is an 84-year-old female being seen postoperatively on the MedSurg floor under consultation for evaluation of the patient's hypertension, IBS breast cancer as well as lung cancer status post resection. Earlier this morning the patient underwent left total knee arthroplasty and has been admitted to the MedSurg floor postoperatively where she has supplemental O2 requirement for some postoperative hypoxia as low as 91%. At the bedside during my encounter she has been titrated down to 2 L nasal cannula and is saturating well in the high 90s. She is in no respiratory distress. She is a bit fatigued appearing but is appropriately conversant. Shehas no complaints at this time. Family members at the bedside. Physical Examination: GENERAL APPEARANCE: Alert, up in bed AAOx3 CARDIAC: Normal S1 and S2. No S3, S4 or murmurs. LUNGS: Clear to auscultation anterolaterally ABDOMEN: Positive bowel sounds. Soft, nontender. No guarding or signs of an acute abdomen EXTREMITIES: No clubbing, cyanosis or edema NEUROLOGICAL: No focal deficits SKIN: Skin normal color, texture and turgor with no lesions or eruptions. PSYCHIATRIC: Appropriate mood and affect Assessment and plan: 1. Hypertension 2. Postoperative hypoxia 3. Coronary artery disease status post CABG 2019 with aortic valve replacement 4. GERD with Gaviria's esophagus, large hiatal hernia 5. Irritable bowel syndrome with constipation 6. Hypothyroidism 7. Atrial flutter status post ablation Patient is appropriately alert during my encounter this afternoon. She was briefly on a higher level 8 L of oxygen for some hypoxia postoperatively. I suspect this is residual anesthesia effect as now she is down to 2 L and appropriately alert. She has some mild grogginess and I suspect as anesthesia comes out of her system she will be able to be weaned off of any supplemental O2. She does have a complex cardiovascular and gastroenterological history withoutpatient notes reviewed. When her home medications are verified that will be resumed as previously prescribed. Presumably she has been off of anticoagulation taking chronically for these conditions and AC can likely be resumed when okay by orthopedic surgery. She has no signs of hemorrhage or acute pain presently. Will check a.m. labs. Will continue to follow along and add where medically appropriate. Review of Systems Review of Systems All other systems reviewed & are negative unless noted below or in HPI [facility] Medical History History of ankle fracture left with repair, plates and screws Left knee pain Wears hearing aid in both ears Stress incontinence in female Gaviria esophagus Hypothyroidism Right hip pain Left knee pain Chronic pain Lung cancer Polymyalgia rheumatica Abnormal colonoscopy history of polyps Breast cancer right side History of cataract Kidney stones Stage 3 chronic kidney disease dx 2020 GERD (gastroesophageal reflux disease) CHF (congestive heart failure) since having the CABG History of atrial fibrillation Murmur Arthritis IBS (irritable bowel syndrome) Hiatal hernia Sleep apnea cpap History of revision of total replacement of right knee joint Trigger finger Asthma Hypertension CVA (cerebral vascular accident) Surgical History History of tubal ligation History of lumpectomy of right breast and radiation for breast cancer History of phacoemulsification of cataract of both eyes with intraocular lens implantation History of cardiac catheterization stents History of thoracotomy part of left lung removed History of cystoscopy H/O cardiac radiofrequency ablation 2020 Aortic valve replaced done at time of CABG Hx of CABG x 1 done 11/2019 History of total right knee replacement x 2 Problem List clean-up per request of Phys. EHR Cmte History of bunionectomy History of cholecystectomy History of arthroscopy of both knees H/O abdominoplasty History of carpal tunnel release of both wrists bilaterally Problem List clean-up per request of Phys. EHR Cmte H/O lithotripsy History of appendectomy History of tonsillectomy and adenoidectomy Family History Mother H/O endarterectomy H/O angioplasty Pancreatic cancer Pacemaker Diabetes Father H/O endarterectomy Hx of CABG Stroke Diabetes Heart disease Brother Bladder cancer Hx of CABG Sister Breast cancer Sister Breast cancer Brother Diabetes Legacy FamHx Relation: Brother(s) Exposure to Agent Irion Legacy FamHx Relation: Brother(s) Pacemaker Father No problems noted. Mother No problems noted. Sister No problems noted. Social History Smoking Status: Former smoker Tobacco Type: cigarettes Substance Use Type: None Social History Comments: several cysto's cardiac cath with stent multiple D&C's several colonoscopies wirh polypectomies another cardiac cath uses cpap cysto urethral laser with stone removal with stent Meds Medications and Allergies Allergies Iodinated Contrast Media (Iodinated Contrast- Oral and IV Dye) Allergy (Severe, Verified 07/27/24 10:25) Anaphylaxis adhesive tape (Tape) Allergy (Unknown, Verified 07/16/24 10:01) Blister chlorpromazine (From Thorazine) Allergy (Unknown, Verified 07/16/24 10:01) Hives clarithromycin (From Biaxin) Allergy (Unknown, Verified 07/16/24 10:01) Unknown Reaction hylan G-F 20 (From Synvisc) Allergy (Unknown, Verified 07/16/24 10:01) Itching, swelling nickel Allergy (Unknown, Verified 07/16/24 10:01) Swelling nitrous oxide Allergy (Unknown, Verified 07/16/24 10:01) Vomiting simvus Allergy (Unknown, Uncoded 06/02/24 10:03) Unknown Reaction metal Allergy (Uncoded 06/02/24 10:03) Edema Home Medications albuterol sulfate 90 mcg/actuation aerosol inhaler 1 puff inhalation Q4-6H PRN Shortness Of Breath Or Wheezing 02/06/18 [History Confirmed 07/16/24] chromium picolinate 1,000 mcg tablet 500 mcg PO DAILY blood sugar 02/06/18 [History Confirmed 07/16/24] melatonin 10 mg tablet 5 mg PO HS PRN Sleep 02/06/18 [History Confirmed 07/16/24] metoprolol tartrate 25 mg tablet 12.5 mg PO BID 02/06/18 [History Confirmed 07/27/24] nitroglycerin 0.4 mg sublingual tablet 0.4 mg sublingual Q5MIN PRN Pain 02/06/18[History Confirmed 07/16/24] rosuvastatin 40 mg tablet 40 mg PO HS 11/10/18 [History Confirmed 07/16/24] coenzyme Q10 100 mg capsule (Co Q-10) 100 mg PO QHS 06/13/20 [History Confirmed 07/16/24] spironolactone 25 mg tablet (Aldactone) 25 mg PO DAILY 06/13/20 [History Confirmed 07/16/24] anastrozole 1 mg tablet 1 mg PO DAILY 01/16/23 [History Confirmed 07/16/24] apixaban 5 mg tablet (Eliquis) 5 mg PO BID 01/16/23 [History Confirmed 07/27/24] calcium 600 mg (as carbonate)-vitamin D3 5 mcg (200 unit) capsule (Calcium 600 +D(3)) 1 cap PO DAILY 01/16/23 [History Confirmed 07/16/24] levothyroxine 50 mcg tablet 50 mcg PO QAM 01/16/23 [History Confirmed 07/27/24] linaclotide 290 mcg capsule (Linzess) 174 mcg PO QPM PRN cramping 01/16/23 [History Confirmed 07/16/24] magnesium 250 mg tablet 600 mg PO DAILY 01/16/23 [History Confirmed 07/16/24] montelukast 10 mg tablet 10 mg PO QAM 01/16/23 [History Confirmed 07/27/24] bumetanide 1 mg PO QAM 09/04/23 [History Confirmed 07/16/24] Lactobacillus rhamnosus-Bifidobac. animalis 3 billion cell capsule (Weave) 1 cap PO DAILY 06/15/24 [History Confirmed 07/16/24] ascorbic acid (vitamin C) 500 mg tablet (Vitamin C) 500 mg PO daily 30 days #30 caps 06/15/24 [Rx Confirmed 07/16/24] ferrous sulfate 325 mg (65 mg iron) tablet (Iron (ferrous sulfate)) 325 mg PO tid 30 days #90 caps 06/15/24 [Rx Confirmed 07/16/24] acetaminophen 650 mg tablet,extended release (8 Hour Pain Reliever) 1,300 mg PO Q12HR PRN fever or pain 07/13/24 [History Confirmed 07/16/24] cholecalciferol (vitamin D3) 50 mcg (2,000 unit) capsule (Vitamin D3) 25 mcg PO DAILY 07/13/24 [History Confirmed 07/27/24] duloxetine 30 mg capsule,delayed release 30 mg PO QPM 07/13/24 [History Confirmed 07/16/24] esomeprazole magnesium 40 mg capsule,delayed release 40 mg PO QAM 07/13/24 [History Confirmed 07/27/24] fluticasone furoate 200 mcg-vilanterol 25 mcg/dose inhalation powder (Breo Ellipta) 1 inh inhalation QAM 07/13/24 [History Confirmed 07/16/24] inulin-sorbitol 2 gram chewable tablet (Fiber Supplement (inulin)) 5 tab PO DAILY 07/13/24 [History Confirmed 07/16/24] acetaminophen 500 mg tablet 1,000 mg (2 x 500 mg) PO Q8H 30 days #180 tabs 07/16/24 [Rx Confirmed 07/16/24] cefadroxil 500 mg capsule 500 mg PO Q12H 7 days #14 tabs 07/16/24 [Rx Confirmed 07/16/24] ondansetron HCl 4 mg tablet 4 mg PO Q8H PRN Nausea #9 tabs 07/16/24 [Rx Confirmed 07/16/24] oxycodone 5 mg tablet 5 mg PO Q4H PRN Pain 7 days #42 tabs 07/16/24 [Rx Confirmed 07/16/24] polyethylene glycol 3350 17 gram/dose oral powder (Miralax) 17 g PO daily 7 days#7 packets 07/16/24 [Rx Confirmed 07/16/24] prednisone 10 mg tablet 10 mg PO daily 10 days #10 tabs 07/16/24 [Rx Confirmed 07/16/24] sennosides 8.6 mg-docusate sodium 50 mg tablet (Senokot-S) 2 tab PO daily 30 days #60 tabs 07/16/24 [Rx Confirmed 07/16/24] tramadol 50 mg tablet 50 mg PO q6h PRN Pain 7 days #28 tabs 07/16/24 [Rx Confirmed 07/16/24] Active Medications: Active Medications Generic Name Dose Route Start Last Admin Trade Name Freq PRN Reason Stop Dose Admin Acetaminophen 1,000 mg 07/27/24 15:00 Acetaminophen 500 Mg Tablet PO 07/27/25 14:59 Q8H TIMOTEO Ascorbic Acid 500 mg 07/27/24 17:00 Ascorbic Acid 500 Mg Tablet PO 07/27/25 16:59 BID.WITH.MEALS TIMOTEO Cefadroxil 500 mg 07/27/24 23:00 Cefadroxil 500 Mg Capsule PO 08/03/24 09:01 BID TIMOTEO Cefazolin Sodium 2 gm 07/27/24 19:00 Cefazolin 2 Gm/11 Ml Syringe IV-PUSH 07/28/24 03:01 Q8H TIMOTEO Diphenhydramine HCl 25 mg 07/27/24 14:48 Diphenhydramine 25 Mg Capsule PO 07/27/25 14:47 Q6H PRN Itching Ferrous Sulfate 324 mg 07/27/24 17:00 Ferrous Sulfate 324 Mg Tablet.Dr PO 07/27/25 16:59 BID.WITH.MEALS TIMOTEO Hydromorphone HCl 0.5 mg 07/27/24 14:14 07/27/24 14:16 Hydromorphone 0.5 Mg/0.5 Ml Syringe IV-PUSH 07/27/24 17:14 0.5 mg Q5M PRN Administration Pain Lactated Ringer's 1,000 mls @ 20 mls/hr 07/27/24 10:08 07/27/24 13:56 Lactated Ringers IV 07/28/24 10:07 20 mls/hr .Q24H ONE Infusion Lactated Ringer's 1,000 mls @ 75 mls/hr 07/27/24 15:00 Lactated Ringers IV 07/27/25 14:59 .[id number] TIMOTEO Lidocaine HCl 0.1 ml 07/27/24 10:08 Lidocaine 1% 50 Ml Vial INTRADERMA PREOP PRN Venipuncture x 1 Dose Mineral Oil 1 each 07/30/24 14:48 Mineral Oil (Irion) 1 Each Enema HI ONCE PRN Constipation Morphine Sulfate 15 mg 07/27/24 14:48 Morphine Sulfate 12hr Er 15 Mg Tablet.Er PO Q12H PRN Pain Naloxone HCl 0.4 mg 07/27/24 14:48 Naloxone Hcl 0.4 Mg/Ml Vial IV-PUSH 07/27/25 14:47 Q2M PRN Opioid Reversal Ondansetron HCl 8 mg 07/27/24 14:48 Ondansetron Odt 4 Mg Tab.Rapdis PO 07/27/25 14:47 TID PRN Nausea Oxycodone HCl 5 mg 07/27/24 14:48 Oxycodone Ir 5 Mg Tablet PO Q4HR PRN Pain Scale 6 - 10 Polyethylene Glycol 17 gm 07/28/24 09:00 Polyethylene Glycol 3350 17 Gm Powd.Pack PO 08/04/24 08:59 DAILY TIMOTEO Prednisone 10 mg 07/28/24 09:00 Prednisone 10 Mg Tablet PO 08/26/24 09:01 DAILY TIMOTEO Prochlorperazine Maleate 10 mg 07/27/24 14:48 Prochlorperazine Maleate 5 Mg Tablet PO 07/27/25 14:47 Q6H PRN Nausea Senna/Docusate Sodium 2 tab 07/28/24 09:00 Sennosides/Docusate 8.6-50mg 1 Tab Tablet PO 08/27/24 08:59 DAILY TIMOTEO Sodium Chloride 0 ml 07/27/24 11:00 Sodium Chloride 0.9 % 10 Ml Syringe IV-PUSH 07/27/25 10:59 PRN PRN Flush Sodium Chloride 0 ml 07/27/24 10:08 Sodium Chloride 0.9 % 10 Ml Syringe IV-PUSH 07/27/25 10:07 PRN PRN Flush Sodium Chloride 0 ml 07/27/24 22:00 Sodium Chloride 0.9 % 10 Ml Syringe IV-PUSH 07/27/25 21:59 QSHIFT TIMOTEO Temazepam 7.5 mg 07/27/24 14:48 Temazepam 7.5 Mg Capsule PO 01/23/25 14:47 QHS PRN Insomnia Tramadol HCl 50 mg 07/27/24 14:48 Tramadol 50 Mg Tablet PO 01/23/25 14:47 Q6H PRN Pain Scale 1 - 5 Exam Physical Exam Vital Signs: Temp Pulse Resp BP Pulse Ox O2 Del Method O2 Flow Rate 98.0 F 72 14 151/71 H 98 Simple Mask 8 07/27/24 13:47 07/27/24 13:55 07/27/24 13:55 07/27/24 13:55 07/27/24 13:55 07/27/24 13:47 07/27/24 13:47 Assessment & Plan Assessment/Plan (1) Irritable bowel syndrome with constipation: Plan . Documented By: Roland Berry DO 07/27/24 15 21 Signed By: <Electronically signed by Roland Berry DO> 07/27/24 1632 [facility] Work Phone: 1([phone]) 273-432801-27-2025 [place] [address] Hospitalist Consult Note Signed Patient: Jemima Bradford MR#: [id number] : 1940 Acct:[id number] Age/Sex: 84 / F Adm Date: 5 Loc: Room: [address] [place] [address] Type: REG [facility] Attending Dr: Sridevi Tovar II, MD Copies to: DO Sridevi De Anda MD Susan M Krebs, SWING FRAME GRINDER OPERATOR, LAMBSKIN TRIMMER~ HPI DATE OF CONSULTATION: 07/27/24 REQUESTING PROVIDER: Sridevi Tovar II Consult Narrative Reason for Consult: hypertension HPI: Is an 84-year-old female being seen postoperatively on the MedSurg floor under consultation for evaluation of the patient's hypertension, IBS breast cancer as well as lung cancer status post resection. Earlier this morning the patient underwent left total knee arthroplasty and has been admitted to the MedSurg floor postoperatively where she has supplemental O2 requirement for some postoperative hypoxia as low as 91%. At the bedside during my encounter she has been titrated down to 2 L nasal cannula and is saturating well in the high 90s. She is in no respiratory distress. She is a bit fatigued appearing but is appropriately conversant. Shehas no complaints at this time. Family members at the bedside. Physical Examination: GENERAL APPEARANCE: Alert, up in bed AAOx3 CARDIAC: Normal S1 and S2. No S3, S4 or murmurs. LUNGS: Clear to auscultation anterolaterally ABDOMEN: Positive bowel sounds. Soft, nontender. No guarding or signs of an acute abdomen EXTREMITIES: No clubbing, cyanosis or edema NEUROLOGICAL: No focal deficits SKIN: Skin normal color, texture and turgor with no lesions or eruptions. PSYCHIATRIC: Appropriate mood and affect Assessment and plan: 1. Hypertension 2. Postoperative hypoxia 3. Coronary artery disease status post CABG 2019 with aortic valve replacement 4. GERD with Gaviria's esophagus, large hiatal hernia 5. Irritable bowel syndrome with constipation 6. Hypothyroidism 7. Atrial flutter status post ablation Patient is appropriately alert during my encounter this afternoon. She was briefly on a higher level 8 L of oxygen for some hypoxia postoperatively. I suspect this is residual anesthesia effect as now she is down to 2 L and appropriately alert. She has some mild grogginess and I suspect as anesthesia comes out of her system she will be able to be weaned off of any supplemental O2. She does have acomplex cardiovascular and gastroenterological history withoutpatient notes reviewed. When her homemedications are verified that will be resumed as previously prescribed. Presumably she has been offof anticoagulation taking chronically for these conditions and AC can likely be resumed when okay by orthopedic surgery. She has no signs of hemorrhage or acute pain presently. Will check a.m. labs. Will continue to follow along and add where medically appropriate. Review of Systems Review of Systems All other systems reviewed & are negative unless noted below or in HPI [facility] Medical History History of ankle fracture left with repair, plates and screws Left knee pain Wears hearing aid in both ears Stress incontinence in female Gaviria esophagus Hypothyroidism Right hip pain Left knee pain Chronic pain Lung cancer Polymyalgia rheumatica Abnormal colonoscopy history of polyps Breast cancer right side History of cataract Kidney stones Stage 3 chronic kidney disease dx 2020 GERD (gastroesophageal reflux disease) CHF (congestive heart failure) since having the CABG History of atrial fibrillation Murmur Arthritis IBS (irritable bowel syndrome) Hiatal hernia Sleep apnea cpap History of revision of total replacement of right knee joint Trigger finger Asthma Hypertension CVA (cerebral vascular accident) Surgical History History of tubal ligation History of lumpectomy of right breast and radiation for breast cancer History of phacoemulsification of cataract of both eyes with intraocular lens implantation History of cardiac catheterization stents History of thoracotomy part of left lung removed History of cystoscopy H/O cardiac radiofrequency ablation 2020 Aortic valve replaced done at time of CABG Hx of CABG x 1 done 11/2019 History of total right knee replacement x 2 Problem List clean-up per request of Phys. EHR Cmte History of bunionectomy History of cholecystectomy History of arthroscopy of both knees H/O abdominoplasty History of carpal tunnel release of both wrists bilaterally Problem List clean-up per request of Phys. EHR Cmte H/O lithotripsy History of appendectomy History of tonsillectomy and adenoidectomy Family History Mother H/O endarterectomy H/O angioplasty Pancreatic cancer Pacemaker Diabetes Father H/O endarterectomy Hx of CABG Stroke Diabetes Heart disease Brother Bladder cancer Hx of CABG Sister Breast cancer Sister Breast cancer Brother Diabetes Legacy FamHx Relation: Brother(s) Exposure to Agent Irion Legacy FamHx Relation: Brother(s) Pacemaker Father No problems noted. Mother No problems noted. Sister No problems noted. Social History Smoking Status: Former smoker Tobacco Type: cigarettes Substance Use Type: None Social History Comments: several cysto's cardiac cath with stent multiple D&C's several colonoscopies wirh polypectomies another cardiac cath uses cpap cysto urethral laser with stone removal with stent Meds Medications and Allergies Allergies Iodinated Contrast Media (Iodinated Contrast- Oral and IV Dye) Allergy (Severe, Verified 07/27/24 10:25) Anaphylaxis adhesive tape (Tape) Allergy (Unknown, Verified 07/16/24 10:01) Blister chlorpromazine (From Thorazine) Allergy (Unknown, Verified 07/16/24 10:01) Hives clarithromycin (From Biaxin) Allergy (Unknown, Verified 07/16/24 10:01) Unknown Reaction hylan G-F 20 (From Synvisc) Allergy (Unknown, Verified 07/16/24 10:01) Itching, swelling nickel Allergy (Unknown, Verified 07/16/24 10:01) Swelling nitrous oxide Allergy (Unknown, Verified 07/16/24 10:01) Vomiting simvus Allergy (Unknown, Uncoded 06/02/24 10:03) Unknown Reaction metal Allergy (Uncoded 06/02/24 10:03) Edema Home Medications albuterol sulfate 90 mcg/actuation aerosol inhaler 1 puff inhalation Q4-6H PRN Shortness Of Breath Or Wheezing 02/06/18 [History Confirmed 07/16/24] chromium picolinate 1,000 mcg tablet 500 mcg PO DAILY blood sugar 02/06/18 [History Confirmed 07/16/24] melatonin 10 mg tablet 5 mg PO HS PRN Sleep 02/06/18 [History Confirmed 07/16/24] metoprolol tartrate 25 mg tablet 12.5 mg PO BID 02/06/18 [History Confirmed 07/27/24] nitroglycerin 0.4 mg sublingual tablet 0.4 mg sublingual Q5MIN PRN Pain 02/06/18[History Confirmed 07/16/24] rosuvastatin 40 mg tablet 40 mg PO HS 11/10/18 [History Confirmed 07/16/24] coenzyme Q10 100 mg capsule (Co Q-10) 100 mg PO QHS 06/13/20 [History Confirmed 07/16/24] spironolactone 25 mg tablet (Aldactone) 25 mg PO DAILY 06/13/20 [History Confirmed 07/16/24] anastrozole 1 mg tablet 1 mg PO DAILY 01/16/23 [History Confirmed 07/16/24] apixaban 5 mg tablet (Eliquis) 5 mg PO BID 01/16/23 [History Confirmed 07/27/24] calcium 600 mg (as carbonate)-vitamin D3 5 mcg (200 unit) capsule (Calcium 600 +D(3)) 1 cap PO DAILY 01/16/23 [History Confirmed 07/16/24] levothyroxine 50 mcg tablet 50 mcg PO QAM 01/16/23 [History Confirmed 07/27/24] linaclotide 290 mcg capsule (Linzess) 174 mcg PO QPM PRN cramping 01/16/23 [History Confirmed 07/16/24] magnesium 250 mg tablet 600 mg PO DAILY 01/16/23 [History Confirmed 07/16/24] montelukast 10 mg tablet 10 mg PO QAM 01/16/23 [History Confirmed 07/27/24] bumetanide 1 mg PO QAM 09/04/23 [History Confirmed 07/16/24] Lactobacillus rhamnosus-Bifidobac. animalis 3 billion cell capsule (Weave) 1 cap PO DAILY 06/15/24 [History Confirmed 07/16/24] ascorbic acid (vitamin C) 500 mg tablet (Vitamin C) 500 mg PO daily 30 days #30 caps 06/15/24 [Rx Confirmed 07/16/24] ferrous sulfate 325 mg (65 mg iron) tablet (Iron (ferrous sulfate)) 325 mg PO tid 30 days #90 caps 06/15/24 [Rx Confirmed 07/16/24] acetaminophen 650 mg tablet,extended release (8 Hour Pain Reliever) 1,300 mg PO Q12HR PRN fever or pain 07/13/24 [History Confirmed 07/16/24] cholecalciferol (vitamin D3) 50 mcg (2,000 unit) capsule (Vitamin D3) 25 mcg PO DAILY 07/13/24 [History Confirmed 07/27/24] duloxetine 30 mg capsule,delayed release 30 mg PO QPM 07/13/24 [History Confirmed 07/16/24] esomeprazole magnesium 40 mg capsule,delayed release 40 mg PO QAM 07/13/24 [History Confirmed 07/27/24] fluticasone furoate 200 mcg-vilanterol 25 mcg/dose inhalation powder (Breo Ellipta) 1 inh inhalation QAM 07/13/24 [History Confirmed 07/16/24] inulin-sorbitol 2 gram chewable tablet (Fiber Supplement (inulin)) 5 tab PO DAILY 07/13/24 [HistoryConfirmed 07/16/24] acetaminophen 500 mg tablet 1,000 mg (2 x 500 mg) PO Q8H 30 days #180 tabs 07/16/24 [Rx Confirmed 07/16/24] cefadroxil 500 mg capsule 500 mg PO Q12H 7 days #14 tabs 07/16/24 [Rx Confirmed 07/16/24] ondansetron HCl 4 mg tablet 4 mg PO Q8H PRN Nausea #9 tabs 07/16/24 [Rx Confirmed 07/16/24] oxycodone 5 mg tablet 5 mg PO Q4H PRN Pain 7 days #42 tabs 07/16/24 [Rx Confirmed 07/16/24] polyethylene glycol 3350 17 gram/dose oral powder (Miralax) 17 g PO daily 7 days#7 packets 07/16/24[Rx Confirmed 07/16/24] prednisone 10 mg tablet 10 mg PO daily 10 days #10 tabs 07/16/24 [Rx Confirmed 07/16/24] sennosides 8.6 mg-docusate sodium 50 mg tablet (Senokot-S) 2 tab PO daily 30 days #60 tabs 07/16/24[Rx Confirmed 07/16/24] tramadol 50 mg tablet 50 mg PO q6h PRN Pain 7 days #28 tabs 07/16/24 [Rx Confirmed 07/16/24] Active Medications: Active Medications Generic Name Dose Route Start Last Admin Trade Name Freq PRN Reason Stop Dose Admin Acetaminophen 1,000 mg 07/27/24 15:00 Acetaminophen 500 Mg Tablet PO 07/27/25 14:59 Q8H TIMOTEO Ascorbic Acid 500 mg 07/27/24 17:00 Ascorbic Acid 500 Mg Tablet PO 07/27/25 16:59 BID.WITH.MEALS TIMOTEO Cefadroxil 500 mg 07/27/24 23:00 Cefadroxil 500 Mg Capsule PO 08/03/24 09:01 BID TIMOTEO Cefazolin Sodium 2 gm 07/27/24 19:00 Cefazolin 2 Gm/11 Ml Syringe IV-PUSH 07/28/24 03:01 Q8H TIMOTEO Diphenhydramine HCl 25 mg 07/27/24 14:48 Diphenhydramine 25 Mg Capsule PO 07/27/25 14:47 Q6H PRN Itching Ferrous Sulfate 324 mg 07/27/24 17:00 Ferrous Sulfate 324 Mg Tablet.Dr PO 07/27/25 16:59 BID.WITH.MEALS TIMOTEO Hydromorphone HCl 0.5 mg 07/27/24 14:14 07/27/24 14:16 Hydromorphone 0.5 Mg/0.5 Ml Syringe IV-PUSH 07/27/24 17:14 0.5 mg Q5M PRN Administration Pain Lactated Ringer's 1,000 mls @ 20 mls/hr 07/27/24 10:08 07/27/24 13:56 Lactated Ringers IV 07/28/24 10:07 20 mls/hr .Q24H ONE Infusion Lactated Ringer's 1,000 mls @ 75 mls/hr 07/27/24 15:00 Lactated Ringers IV 07/27/25 14:59 .[id number] TIMOTEO Lidocaine HCl 0.1 ml 07/27/24 10:08 Lidocaine 1% 50 Ml Vial INTRADERMA PREOP PRN Venipuncture x 1 Dose Mineral Oil 1 each 07/30/24 14:48 Mineral Oil (Irion) 1 Each Enema HI ONCE PRN Constipation Morphine Sulfate 15 mg 07/27/24 14:48 Morphine Sulfate 12hr Er 15 Mg Tablet.Er PO Q12H PRN Pain Naloxone HCl 0.4 mg 07/27/24 14:48 Naloxone Hcl 0.4 Mg/Ml Vial IV-PUSH 07/27/25 14:47 Q2M PRN Opioid Reversal Ondansetron HCl 8 mg 07/27/24 14:48 Ondansetron Odt 4 Mg Tab.Rapdis PO 07/27/25 14:47 TID PRN Nausea Oxycodone HCl 5 mg 07/27/24 14:48 Oxycodone Ir 5 Mg Tablet PO Q4HR PRN Pain Scale 6 - 10 Polyethylene Glycol 17 gm 07/28/24 09:00 Polyethylene Glycol 3350 17 Gm Powd.Pack PO 08/04/24 08:59 DAILY TIMOTEO Prednisone 10 mg 07/28/24 09:00 Prednisone 10 Mg Tablet PO 08/26/24 09:01 DAILY TIMOTEO Prochlorperazine Maleate 10 mg 07/27/24 14:48 Prochlorperazine Maleate 5 Mg Tablet PO 07/27/25 14:47 Q6H PRN Nausea Senna/Docusate Sodium 2 tab 07/28/24 09:00 Sennosides/Docusate 8.6-50mg 1 Tab Tablet PO 08/27/24 08:59 DAILY TIMOTEO Sodium Chloride 0 ml 07/27/24 11:00 Sodium Chloride 0.9 % 10 Ml Syringe IV-PUSH 07/27/25 10:59 PRN PRN Flush Sodium Chloride 0 ml 07/27/24 10:08 Sodium Chloride 0.9 % 10 Ml Syringe IV-PUSH 07/27/25 10:07 PRN PRN Flush Sodium Chloride 0 ml 07/27/24 22:00 Sodium Chloride 0.9 % 10 Ml Syringe IV-PUSH 07/27/25 21:59 QSHIFT TIMOTEO Temazepam 7.5 mg 07/27/24 14:48 Temazepam 7.5 Mg Capsule PO 01/23/25 14:47 QHS PRN Insomnia Tramadol HCl 50 mg 07/27/24 14:48 Tramadol 50 Mg Tablet PO 01/23/25 14:47 Q6H PRN Pain Scale 1 - 5 Exam Physical Exam Vital Signs: Temp Pulse Resp BP Pulse Ox O2 Del Method O2 Flow Rate 98.0 F 72 14 151/71 H 98 Simple Mask 8 07/27/24 13:47 07/27/24 13:55 07/27/24 13:55 07/27/24 13:55 07/27/24 13:55 07/27/24 13:47 07/27/24 13:47 Assessment & Plan Assessment/Plan (1) Irritable bowel syndrome with constipation: Plan . Documented By: Roland Berry DO 07/27/24 Signed By: 07/27/24 [facility]01-27-2025 Evaluation note* Diagnosis Onset Date Resolution Status Admit Date Anemia acute July 27, 2024 9:48am Impaired mobility and activities of daily living acute 2024 9:48am Irritable bowel syndrome wit h constipation acute July 27 9:48am Left knee pain acute July 272024 9:48am Primary osteoarthritis of le ft knee acute July 27 9:48am S/P total knee arthroplasty acute July 27, 2024 9:48am Status post total left knee replacement acute July 27 9:48am Anemia acute July 28, 2024 2:50pm GERD (gastroesophageal reflu x disease) acute July 28 2:50pm Impaired mobility and activities of daily living acute 2024 2:50pm Irritable bowel syndrome wit h constipation acute July 28 2:50pm Status post total left knee replacement acute July 28 2:50pm CHF (congestive heart failure) inact jacinto July 28, 2024 2:50pm Chronic pain inactive July 2:50pm CKD (chronic kidney disease) inactiv e July 28, 2024 2:50pm History of revision of total replacement of right knee joint inactive July 28 2:50pm Hypertension inactive July 2:50pm Hypothyroidism inactive July 282024 2:50pm Osteoporosis without current pathological fracture inactive July 282024 2:50pm Sleep apnea inactive July 28, 2024 2:50pm Aftercare following left kne e joint replacement surgery acute 2024 1:14pm Status post total left knee replacement acute August 19 1:14pm Aftercare following left kne e joint replacement surgery acute 2024 10:36am Status post total left knee replacement acute August 26 10:36am Anemia acute September 09 10:46am 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 10:46am GERD (gastroesophageal reflu x disease) acute September 09, 2024 10:46am Irritable bowel syndrome wit h constipation acute September 09, 2024 10:46am Aftercare following left kne e joint replacement surgery acute September 09, 2024 11:55am Status post total left knee replacement acute September 09, 2024 11:55am Aftercare following left kne e joint replacement surgery acute October 01, 2024 9:29am Status post total left knee replacement acute October 01, 2024 9:29am Aftercare following left kne e joint replacement surgery acute October 21, 2024 11:15am Status post total left knee replacement acute October 21, 2024 11:15am [facility] Work Phone: 1(967) 384-374301-16-2025 Evaluation note* Diagnosis Onset Date Resolution Status Admit Date Primary osteoarthritis of le ft knee acute July 16 9:37am Anemia acute July 27, 2024 9:48am Impaired mobility and activities of daily living acute 2024 9:48am Irritable bowel syndrome wit h constipation acute July 27 9:48am Left knee pain acute July 272024 9:48am Primary osteoarthritis of le ft knee acute July 27 9:48am S/P total knee arthroplasty acute July 27, 2024 9:48am Status post total left knee replacement acute July 27 9:48am Anemia acute July 28, 2024 2:50pm GERD (gastroesophageal reflu x disease) acute July 28 2:50pm Impaired mobility and activities of daily living acute 2024 2:50pm Irritable bowel syndrome wit h constipation acute July 28 2:50pm Status post total left knee replacement acute July 28 2:50pm CHF (congestive heart failure) inact jacinto July 28, 2024 2:50pm Chronic pain inactive July 2:50pm CKD (chronic kidney disease) inactiv e July 28, 2024 2:50pm History of revision of total replacement of right knee joint inactive July 28 2:50pm Hypertension inactive July 2:50pm Hypothyroidism inactive July 282024 2:50pm Osteoporosis without current pathological fracture inactive July 282024 2:50pm Sleep apnea inactive July 28, 2024 2:50pm Aftercare following left kne e joint replacement surgery acute 2024 1:14pm Status post total left knee replacement acute August 19, 1:14pm Aftercare following left kne e joint replacement surgery acute 2024 10:36am Status post total left knee replacement acute August 26, 025 10:36am Anemia acute September 09 10:46am 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 10:46am GERD (gastroesophageal reflu x disease) acute September 09, 2024 10:46am Irritable bowel syndrome wit h constipation acute September 09, 2024 10:46am Aftercare following left kne e joint replacement surgery acute September 09, 2024 11:55am Status post total left knee replacement acute September 09, 2024 11:55am [facility] Work Phone: 1(647) 116-755012-16-2024 Evaluation note* Diagnosis Onset Date Resolution Status Admit Date Anemia acute June 15, 2024 1:44pm GERD (gastroesophageal reflu x disease) acute June 15 024 1:44pm Irritable bowel syndrome wit h constipation acute June 15 024 1:44pm Primary osteoarthritis of le ft knee acute July 16 9:37am Anemia acute July 27, 2024 9:48am Impaired mobility and activities of daily living acute 2024 9:48am Irritable bowel syndrome wit h constipation acute July 27 9:48am Left knee pain acute July 272024 9:48am Primary osteoarthritis of le ft knee acute July 27 9:48am S/P total knee arthroplasty acute July 27, 2024 9:48am Status post total left knee replacement acute July 27 9:48am Anemia acute July 28, 2024 2:50pm GERD (gastroesophageal reflu x disease) acute July 28 2:50pm Impaired mobility and activities of daily living acute 2024 2:50pm Irritable bowel syndrome wit h constipation acute July 28 2:50pm Status post total left knee replacement acute July 28 2:50pm CHF (congestive heart failure) inact jacinto July 28, 2024 2:50pm Chronic pain inactive July 2:50pm CKD (chronic kidney disease) inactiv e July 28, 2024 2:50pm History of revision of total replacement of right knee joint inactive July 28 2:50pm Hypertension inactive July 2:50pm Hypothyroidism inactive July 282024 2:50pm Osteoporosis without current pathological fracture inactive July 282024 2:50pm Sleep apnea inactive July 28, 2024 2:50pm Aftercare following left kne e joint replacement surgery acute 2024 1:14pm Status post total left knee replacement acute August 19, 025 1:14pm Aftercare following left kne e joint replacement surgery acute 2024 10:36am Status post total left knee replacement acute August 26, 025 10:36am Anemia acute September 09 10:46am 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 10:46am GERD (gastroesophageal reflu x disease) acute September 09, 2024 10:46am Irritable bowel syndrome wit h constipation acute September 09, 2024 10:46am [facility] Work Phone: 1(873) 152-679512-16-2024 Evaluation note* Diagnosis Onset Date Resolution Status Admit Date Anemia acute June 15, 2024 1:44pm GERD (gastroesophageal reflu x disease) acute June 15, 2 024 1:44pm Irritable bowel syndrome wit h constipation acute June 15 024 1:44pm Primary osteoarthritis of le ft knee acute July 16 9:37am Anemia acute July 27, 2024 9:48am Impaired mobility and activities of daily living acute 2024 9:48am Irritable bowel syndrome wit h constipation acute July 27 9:48am Left knee pain acute July 272024 9:48am Primary osteoarthritis of le ft knee acute July 27 9:48am S/P total knee arthroplasty acute July 27, 2024 9:48am Status post total left knee replacement acute July 27 9:48am Anemia acute July 28, 2024 2:50pm GERD (gastroesophageal reflu x disease) acute July 28 2:50pm Impaired mobility and activities of daily living acute 2024 2:50pm Irritable bowel syndrome wit h constipation acute July 28 2:50pm Status post total left knee replacement acute July 28 2:50pm CHF (congestive heart failure) inact jacinto July 28, 2024 2:50pm Chronic pain inactive July 2:50pm CKD (chronic kidney disease) inactiv e July 28, 2024 2:50pm History of revision of total replacement of right knee joint inactive July 28 2:50pm Hypertension inactive July 2:50pm Hypothyroidism inactive July 282024 2:50pm Osteoporosis without current pathological fracture inactive July 282024 2:50pm Sleep apnea inactive July 28, 2024 2:50pm Aftercare following left kne e joint replacement surgery acute 2024 1:14pm Status post total left knee replacement acute August 19, 025 1:14pm Aftercare following left kne e joint replacement surgery acute 2024 10:36am Status post total left knee replacement acute August 26, 025 10:36am Anemia acute September 09 10:46am 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 10:46am GERD (gastroesophageal reflu x disease) acute September 09, 2024 10:46am Irritable bowel syndrome wit h constipation acute September 09, 2024 10:46am Aftercare following left kne e joint replacement surgery acute September 09, 2024 11:55am Status post total left knee replacement acute September 09, 2024 11:55am [facility] Work Phone: 1(795) 725-385012-09-2024 Telephone encounter Note* Telephone Encounter - Gia Clayton RN - 06/08/2024 11:26 AM EST Letter completed and faxed to number requested Gia Clayton RN [facility]12-09-2024 Miscellaneous Notes* Telephone Encounter - Gia Clayton RN - 06/08/2024 11:26 AM EST Letter completed and faxed to number requested Gia Clayton RN * Telephone Encounter - Gia Clayton RN - 06/08/2024 10:55 AM EST Christa Tovar) calling for medical clearance to schedule L total knee replacement. Please fax letter to [phone] 05/25/24 BRM office note: Since the patient's last visit here she has had she has had progressive left knee pain, and currently is contemplating knee replacement per Dr. Tovar at [facility]. She was cleared by cardiology. She isscheduled to see her high school tutor to obtain surgical clearance. BRM: please advise Gia Clayton RN [facility] Telephone encounter Note * Telephone Encounter - Gia Clayton RN - 06/08/2024 10:55 AM EST Christa Tovar) calling for medical clearance to schedule L total knee replacement. Please fax letter to [phone] 05/25/24 BRM office note: Since the patient's last visit here she has had she has had progressive left knee pain, and currently is contemplating knee replacement per Dr. Tovar at [facility]. She was cleared by cardiology. She isscheduled to see her high school tutor to obtain surgical clearance. BRM: please advise Gia Clayton, RN [facility]12-03-2024 Chief complaint+Reason for visit Narrative* Chief Complaint Admit Date 6 WEEKS AFTER T FELTER PROCEDURE Elly bach 2023 9:57am Z79.899 June 10, 2024 12:32pm follow up June 15, 2024 1:44pm D64.9 June 15, 2024 2:42pm Knee Pain July 13, 2024 1 0:56am M17.12 - Unilateral primary osteoarthrit is, left k July 16, 2024 7:34am H&P LTKA July 16, 2024 9 :37am pre op L TKA July 16, 2024 1 0:43am Prolonged July 17, 2024 7 :47am Knee Pain July 27, 2024 7 :29am Knee Pain July 27, 2024 9 :48am Knee Pain July 28, 2024 1 :11pm Left knee osteoarthritis s/p TKA July 28, 2024 2:50pm Left knee osteoarthritis s/p TKA July 29, 2024 1:11pm 2 WK POST OP LTKA August 19, 2024 1:14pm Reason for Visit Admit Date Primary osteoarthritis of right knee Dec emb2023 9:57am Anemia June 15, 2024 1:44pm GERD (gastroesophageal reflux disease) D ecember 2023 1:44pm Irritable bowel syndrome with constipati on June 15, 2024 1:44pm Primary osteoarthritis of left knee Raymond 2024 9:37am Impaired mobility and activities of nadiya y living July 27, 2024 9:48am Left knee pain July 27, 2024 9 :48am Primary osteoarthritis of left knee Raymond 2024 9:48am S/P total knee arthroplasty July 9:48am Status post total left knee replacement July 27, 2024 9:48am Anemia July 27, 2024 9 :48am Irritable bowel syndrome with constipati on July 27, 2024 9:48am Impaired mobility and activities of nadiya y living July 28, 2024 2:50pm Status post total left knee replacement July 28, 2024 2:50pm Anemia July 28, 2024 2 :50pm CHF (congestive heart failure) July 022024 2:50pm Chronic pain July 28, 2024 2 :50pm CKD (chronic kidney disease) July 2:50pm GERD (gastroesophageal reflux disease) J anuary 2024 2:50pm History of revision of total replacement of right knee joint July 28, 2024 2:50pm Hypertension July 28, 2024 2 :50pm Hypothyroidism July 28, 2024 2 :50pm Irritable bowel syndrome with constipati on July 28, 2024 2:50pm Osteoporosis without current pathologica l fracture July 28, 2024 2:50pm Sleep apnea July 28, 2024 2 :50pm Aftercare following left knee joint repl acement surgery August 19, 2024 1:14pm Status post total left knee replacement August 19, 2024 1:14pm [facility] Work Phone: 1([phone]) 874-889012-03-2024 Chief complaint+Reason for visit Narrative * Chief Complaint Admit Date 6 WEEKS AFTER T FELTER PROCEDURE Freddennis bach 2023 9:57am Z79.899 June 10, 2024 12:32pm follow up June 15, 2024 1:44pm D64.9 June 15, 2024 2:42pm Knee Pain July 13, 2024 1 0:56am M17.12 - Unilateral primary osteoarthrit is, left k July 16, 2024 7:34am H&P LTKA July 16, 2024 9 :37am pre op L TKA July 16, 2024 1 0:43am Prolonged July 17, 2024 7 :47am Knee Pain July 27, 2024 7 :29am Knee Pain July 27, 2024 9 :48am Knee Pain July 28, 2024 1 :11pm Left knee osteoarthritis s/p TKA July 28, 2024 2:50pm Left knee osteoarthritis s/p TKA July 29, 2024 1:11pm 2 WK POST OP LTKA August 19, 2024 1:14pm Reason for Visit Admit Date Primary osteoarthritis of right knee Dec emb2023 9:57am Anemia June 15, 2024 1:44pm GERD (gastroesophageal reflux disease) D ecember 2023 1:44pm Irritable bowel syndrome with constipati on June 15, 2024 1:44pm Primary osteoarthritis of left knee Raymond maciej 2024 9:37am Impaired mobility and activities of nadiya y living July 27, 2024 9:48am Left knee pain July 27, 2024 9 :48am Primary osteoarthritis of left knee Raymond maciej 2024 9:48am S/P total knee arthroplasty July 9:48am Status post total left knee replacement July 27, 2024 9:48am Anemia July 27, 2024 9 :48am Irritable bowel syndrome with constipati on July 27, 2024 9:48am Impaired mobility and activities of nadiya y living July 28, 2024 2:50pm Status post total left knee replacement July 28, 2024 2:50pm Anemia July 28, 2024 2 :50pm CHF (congestive heart failure) July 022024 2:50pm Chronic pain July 28, 2024 2 :50pm CKD (chronic kidney disease) July 2:50pm GERD (gastroesophageal reflux disease) J anuary 2024 2:50pm History of revision of total replacement of right knee joint July 28, 2024 2:50pm Hypertension July 28, 2024 2 :50pm Hypothyroidism July 28, 2024 2 :50pm Irritable bowel syndrome with constipati on July 28, 2024 2:50pm Osteoporosis without current pathologica l fracture July 28, 2024 2:50pm Sleep apnea July 28, 2024 2 :50pm Aftercare following left knee joint repl acement surgery August 19, 2024 1:14pm Status post total left knee replacement August 19, 2024 1:14pm Aftercare following left knee joint repl acement surgery August 26, 2024 10:36am Status post total left knee replacement August 26, 2024 10:36am [facility] Work Phone: [phone]) 892-349112-03-2024 Evaluation note* Diagnosis Onset Date Resolution Status Admit Date Primary osteoarthritis of right knee acute June 02 9:57am Anemia inactive June 15, 2024 1:44pm GERD (gastroesophageal reflu x disease) inactive June 15, 2 024 1:44pm Irritable bowel syndrome wit h constipation inactive June 15, 2 024 1:44pm Primary osteoarthritis of le ft knee acute July 16 9:37am Impaired mobility and activities of daily living acute 2024 9:48am Left knee pain acute July 272024 9:48am Primary osteoarthritis of le ft knee acute July 27 9:48am S/P total knee arthroplasty acute July 27, 2024 9:48am Status post total left knee replacement acute July 27 9:48am Anemia inactive July 27, 2024 9:48am Irritable bowel syndrome wit h constipation inactive July 27 9:48am Impaired mobility and activities of daily living acute 2024 2:50pm Status post total left knee replacement acute July 28 2:50pm Anemia inactive July 28, 2024 2:50pm CHF (congestive heart failure) inact jacinto July 28, 2024 2:50pm Chronic pain inactive July 2:50pm CKD (chronic kidney disease) inactiv e July 28, 2024 2:50pm GERD (gastroesophageal reflu x disease) inactive July 28 2:50pm History of revision of total replacement of right knee joint inactive July 28 2:50pm Hypertension inactive July 2:50pm Hypothyroidism inactive July 282024 2:50pm Irritable bowel syndrome wit h constipation inactive July 28 2:50pm Osteoporosis without current pathological fracture inactive July 282024 2:50pm Sleep apnea inactive July 28, 2024 2:50pm Aftercare following left kne e joint replacement surgery acute 2024 1:14pm Status post total left knee replacement acute August 19, 2 025 1:14pm [facility] Work Phone: [phone]) 466-401812-03-2024 Evaluation note* Diagnosis Onset Date Resolution Status Admit Date Primary osteoarthritis of right knee acute June 02 9:57am Anemia inactive June 15, 2024 1:44pm GERD (gastroesophageal reflu x disease) inactive June 15, 024 1:44pm Irritable bowel syndrome wit h constipation inactive June 15 024 1:44pm Primary osteoarthritis of le ft knee acute July 16 9:37am Impaired mobility and activities of daily living acute 2024 9:48am Left knee pain acute July 272024 9:48am Primary osteoarthritis of le ft knee acute July 27 9:48am S/P total knee arthroplasty acute July 27, 2024 9:48am Status post total left knee replacement acute July 27 9:48am Anemia inactive July 27, 2024 9:48am Irritable bowel syndrome wit h constipation inactive July 27 9:48am Impaired mobility and activities of daily living acute 2024 2:50pm Status post total left knee replacement acute July 28 2:50pm Anemia inactive July 28, 2024 2:50pm CHF (congestive heart failure) inact jacinto July 28, 2024 2:50pm Chronic pain inactive July 2:50pm CKD (chronic kidney disease) inactiv e July 28, 2024 2:50pm GERD (gastroesophageal reflu x disease) inactive July 28 2:50pm History of revision of total replacement of right knee joint inactive July 28 2:50pm Hypertension inactive July 2:50pm Hypothyroidism inactive July 282024 2:50pm Irritable bowel syndrome wit h constipation inactive July 28 2:50pm Osteoporosis without current pathological fracture inactive July 282024 2:50pm Sleep apnea inactive July 28, 2024 2:50pm Aftercare following left kne e joint replacement surgery acute 2024 1:14pm Status post total left knee replacement acute August 19 025 1:14pm Aftercare following left kne e joint replacement surgery acute 2024 10:36am Status post total left knee replacement acute August 26, 025 10:36am [facility] Work Phone: 1([phone]) 281-331411-24-2024 NoteHNO ID: [id number] Author: BRYANNA ADAN MD Service: ? Author Type: Physician Type: Progress Notes Filed: 05/26/2024 07:16 Note Text: PATIENT NAME: Jemima Bradford DATE: 05/25/2024 PRIMARY CARE PHYSICIAN: Jasmyne Casillas CNP ([facility]) OTHER PHYSICIANS: Dr. Keene, Dr. Ferrari ( [facility] Card[facility], [place]), Dr. Pizarro, Dr. Arguelles, Dr. Shaniqua Ellsworth (Pulmonary, [place]), Dr. Mitzi Amaral Portions of this encounter note have been copied from my note from 11/26/2023 and has been updated where appropriate, and reflect my current medical decision making from today. 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 INTERIM HISTORY: Since the patient's last visit here she has had she has had progressive left knee pain, and currently is contemplating knee replacement per Dr. Tovar at [facility]. She was cleared by cardiology. She is scheduled to see her high school tutor to obtain surgical clearance. Otherwise she has had no significant medical changes. Chronic shortness of breath is very minimal. No new pulmonary symptoms. No unusual pain. She has noticed no changes in her breasts. She remains on anastrozole and is tolerating it well. MEDICATIONS: bumetanide (BUMEX) 1 mg tablet Take 1 mg by mouth two times a day. anastrozole (ARIMIDEX) 1 mg tablet Take 1 tablet by mouth once daily. montelukast (SINGULAIR) 10 mg tablet Take 10 mg by mouth once daily. metoprolol tartrate, short acting, (LOPRESSOR) 25 mg tablet Take 1/2 tablet by mouth twice daily. levothyroxine (SYNTHROID) 50 mcg tablet levothyroxine 50 mcg tablet TAKE 1 TABLET BY MOUTH DAILY FOR HYPOTHYROIDISM apixaban (ELIQUIS) 5 mg tab(s) Eliquis 5 mg tablet Take 1 tablet twice a day by oral route for 90 days. calcium carbonate (CALTRATE) 600 mg calcium (1,500 mg) tab 600 mg. melatonin 10 mg tab 10 mg. rosuvastatin (CRESTOR) 40 mg tablet Take 40 mg by mouth once daily. spironolactone (ALDACTONE) 25 mg tablet Take 25 mg by mouth once daily. esomeprazole (NEXIUM) 40 mg capsule Take 40 mg by mouth as directed. Twice per week nitroglycerin sublingual (NITROQUICK) 0.4 mg SL tablet Dissolve 1 tablet under the tongue every 5 minutes as needed. COQ10, UBIQUINOL, ORAL Take 1 tablet by mouth once daily. Chromium Picolinate 500 mcg cap Take 1 tablet by mouth once daily. MAGNESIUM ORAL Take 1 tablet by mouth once daily. 600mg aspirin, enteric coated (ASPIRIN, ENTERIC COATED) 81 mg EC tablet Take 81 mg by mouth once daily. 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 Aortic valve stenosis mild Arthritis Asthma controlled no inhalers Coronary artery disease Hypercholesteremia Hypertension Polymyalgia rheumatica (HCC) PAST SURGICAL HISTORY: PAST SURGICAL HISTORY Procedure Laterality Date APPENDECTOMY 07/01/1978 ARTHROSCOPY KNEE MEDIAL RELEASE 2002,2010 rt AND Lt knee ARTHRP KNE CONDYLEANDPLATU MEDIALANDLAT COMPARTMENTS Right 07/01/2013 right x2 BREAST LUMPECTOMY HX BUNIONECTOMY, LAPIDUS-TYPE 07/01/2010 rt toe CHOLECYSTECTOMY 07/01/2005 COLONOSCOPY AND POLYPECTOMY 2004, 2005, 2009 x 3 CYSTO LASER TX URETERAL CALC 07/01/2009 stent placement CYSTO W/RETROGRADE x 6 DANDC (INCOMPLETE AB), ANY TRIMESTER 07/01/1974 EXCISE EXCESS SKIN TISSUE,ABDOMEN 07/01/1994 Abdominalplasty LITHOTRIPSY PROC UNILATERAL 07/01/1985 rt kidney PAST SURGICAL HISTORY OF 12/03/2019 CABG 1v, cryomaze and AVr REMV CATARACT EXTRACAP,INSERT LENS STENT PLACEMENT 07/01/2003 LAD TONSILLECTOMY HX as child REVIEW OF SYSTEMS: GENERAL: No weight loss, malaise or fevers. HEENT: Negative for frequent or significant headaches, No changes in hearing or vision, no nose bleeds or other nasal problems RESPIRATORY: Negative for cough, wheezing or shortness of breath. CARDIOVASCULAR: Negative for chest pain, leg swelling or palpitations. GI: Negative for abdominal discomfort, blood in stools or black stools or change in bowel habits : No history of dysuria, frequency or incontinence MUSCULOSKELETAL: Negative for: joint pain or swelling, back pain and muscle pain SKIN: Negative for lesions, rash, and itching. HEMATOLOGY/LYMPHOLOGY: Negative for prolonged bleeding, bruising easily or swollen nodes. NEURO: No history of headaches, syncope, paralysis, seizures or tremors PHYSICAL EXAM: Vitals: BP 126/77 Pulse 66 Temp 36.3 ?C (97.4 ?F) (Temporal) Resp 20 Wt 83.1 kg (183 lb 3.2 oz) SpO2 99% BMI 30.49 kg/m? General appearance: well appearing, alert, in no acute distress, well-hydrated, well nourished Skin: skin color, texture, turgor normal, no suspicious rashes or lesions Head: normal Eyes: Anicteric scle (more content not included)...[facility] 05-24-2024 History of Present illness Narrative* Bryanna Adan MD - 05/24/2024 6:18 PM EST PATIENT NAME: Jemima Bradford DATE: 05/25/2024 PRIMARY CARE PHYSICIAN: Jasmyne Casillas CNP ([facility]) OTHER PHYSICIANS: Dr. Keene, Dr. Ferrari ( [facility] Cardiology, [place]), Dr. Pizarro, Dr. Arguelles,Dr. Shaniqua Ellsworth (Pulmonary, [place]), Dr. Mitzi Amaral Portions of this encounter note have been copied from my note from 11/26/2023 and has been updated where appropriate, and reflect my current medical decision making from today. 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 INTERIM HISTORY: Since the patient's last visit here she has had she has had progressive left knee pain, and currently is contemplating knee replacement per Dr. Tovar at [facility]. She was cleared by cardiology. She is scheduled to see her high school tutor to obtain surgical clearance. Otherwise she has had no significant medical changes. Chronic shortness of breath is very minimal. No new pulmonary symptoms. No unusual pain. She has noticed no changes in her breasts. She remains on anastrozole and is tolerating it well. MEDICATIONS: bumetanide (BUMEX) 1 mg tablet Take 1 mg by mouth two times a day. anastrozole (ARIMIDEX) 1 mg tablet Take 1 tablet by mouth once daily. montelukast (SINGULAIR) 10 mg tablet Take 10 mg by mouth once daily. metoprolol tartrate, short acting, (LOPRESSOR) 25 mg tablet Take 1/2 tablet by mouth twice daily. levothyroxine (SYNTHROID) 50 mcg tablet levothyroxine 50 mcg tablet TAKE 1 TABLET BY MOUTH DAILY FOR HYPOTHYROIDISM apixaban (ELIQUIS) 5 mg tab(s) Eliquis 5 mg tablet Take 1 tablet twice a day by oral route for 90 days. calcium carbonate (CALTRATE) 600 mg calcium (1,500 mg) tab 600 mg. melatonin 10 mg tab 10 mg. rosuvastatin (CRESTOR) 40 mg tablet Take 40 mg by mouth once daily. spironolactone (ALDACTONE) 25 mg tablet Take 25 mg by mouth once daily. esomeprazole (NEXIUM) 40 mg capsule Take 40 mg by mouth as directed. Twice per week nitroglycerin sublingual (NITROQUICK) 0.4 mg SL tablet Dissolve 1 tablet under the tongue every 5 minutes as needed. COQ10, UBIQUINOL, ORAL Take 1 tablet by mouth once daily. Chromium Picolinate 500 mcg cap Take 1 tablet by mouth once daily. MAGNESIUM ORAL Take 1 tablet by mouth once daily. 600mg aspirin, enteric coated (ASPIRIN, ENTERIC COATED) 81 mg EC tablet Take 81 mg by mouth once daily. 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 Aortic valve stenosis mild Arthritis Asthma controlled no inhalers Coronary artery disease Hypercholesteremia Hypertension Polymyalgia rheumatica (HCC) PAST SURGICAL HISTORY: PAST SURGICAL HISTORY Procedure Laterality Date APPENDECTOMY 07/01/1978 ARTHROSCOPY KNEE MEDIAL RELEASE 2002,2010 rt & Lt knee ARTHRP KNE CONDYLE&PLATU MEDIAL&LAT COMPARTMENTS Right 07/01/2013 right x2 BREAST LUMPECTOMY HX BUNIONECTOMY, LAPIDUS-TYPE 07/01/2010 rt toe CHOLECYSTECTOMY 07/01/2005 COLONOSCOPY & POLYPECTOMY 2004, 2005, 2009 x 3 CYSTO LASER TX URETERAL CALC 07/01/2009 stent placement CYSTO W/RETROGRADE x 6 D&C (INCOMPLETE AB), ANY TRIMESTER 07/01/1974 EXCISE EXCESS SKIN TISSUE,ABDOMEN 07/01/1994 Abdominalplasty LITHOTRIPSY PROC UNILATERAL 07/01/1985 rt kidney PAST SURGICAL HISTORY OF 12/03/2019 CABG 1v, cryomaze and AVr REMV CATARACT EXTRACAP,INSERT LENS STENT PLACEMENT 07/01/2003 LAD TONSILLECTOMY HX as child REVIEW OF SYSTEMS: GENERAL: No weight loss, malaise or fevers. HEENT: Negative for frequent or significant headaches, No changes in hearing or vision, no nose bleeds or other nasal problems RESPIRATORY: Negative for cough, wheezing or shortness of breath. CARDIOVASCULAR: Negative for chest pain, leg swelling or palpitations. GI: Negative for abdominal discomfort, blood in stools or black stools or change in bowel habits : No history of dysuria, frequency or incontinence MUSCULOSKELETAL: Negative for: joint pain or swelling, back pain and muscle pain SKIN: Negative for lesions, rash, and itching. HEMATOLOGY/LYMPHOLOGY: Negative for prolonged bleeding, bruising easily or swollen nodes. NEURO: No history of headaches, syncope, paralysis, seizures or tremors PHYSICAL EXAM: Vitals: BP 126/77 Pulse 66 Temp 36.3 C (97.4 F) (Temporal) Resp 20 Wt 83.1 kg (183 lb 3.2 oz) SpO2 99% BMI 30.49 kg/m General appearance: well appearing, alert, in no acute distress, well-hydrated, well nourished Skin: skin color, texture, turgor normal, no suspicious rashes or lesions Head: normal Eyes: Anicteric sclera. Pupils are equally round and reactive to light. Extraocular movements are intact. Ears: negative findings: external ears normal to inspection and palpation Oropharynx: negative Neck: Supple, no adenopathy; thyroid symmetric, normal size Lymph Nodes: No Submandibular, cervical, supraclavicular, axillary, or inguinal lymphadenopathy present Breast: Not examined today Back: no tenderness to palpation Lungs: clear to auscultation, no wheezing or rhonchi Heart: Negative. RRR without murmur, gallop, or rubs. No ectopy. Abdomen: Normal abdominal exam, Abdomen soft, non-tender. Bowel sounds normal. No masses, organomegaly Rectal: Not done Extremities: Extremities normal. No deformities, edema, or skin discoloration. Good capillary refill. Musculoskeletal: No joint swelling, deformity, or tenderness. Peripheral pulses: Normal PATHOLOGY: 06/13/2022 Left upper lobectomy and regional lymph node dissection A. Lymph node, level 9, excision: - Negative for tumor (0/1). B. Lymph node, 12 central, excision: - Negative for tumor (0/1). C. Lymph node, 11 anterior, excision: - Negative for tumor (0/1). D. Lymph node, 11 posterior, excision: - Negative for tumor (0/1). E. Lymph node, another 11 posterior, excision: - Negative for tumor (0/1). F. Lymph node, 10, excision: - Negative for tumor (0/1). G. Lymph node, 5, excision: - Negative for tumor (0/1). H. Lymph node, 7, excision: - Negative for tumor (0/1). I. Lung, left upper lobe, lingula-sparing left upper lobectomy: - Adenocarcinoma (2 cm), micropapillary predominant (70%), with additional papillary (20%), and acinar (10%) patterns (See synoptic template). - Seven hilar/peribronchial lymph nodes, negative for tumor (0/7). - Margins negative. ALK (D5F3) IMMUNOHISTOCHEMISTRY ASSAY Results: Positive Immunohistochemistry for PD-L1 expression Tumor Cells Positive: 70% ROS1 Rearrangement 0% RET Rearrangement 0% BRAF - No variant detected [Reference Sequence: ([id number])]. EGFR - No variant detected [Reference Sequence: ([id number])]. HER2 (ERBB2) - No variant detected [Reference Sequence: ([id number])]. KRAS - No variant detected [Reference Sequence: ([id number])]. MET - No variant detected [Reference Sequence: ([id number])]. 04/25/2022 CT directed biopsy left upper lung mass ([facility]) Adenocarcinoma consistent with lung primary 06/21/2020 Right breast lumpectomy ([facility]) Ductal carcinoma in situ, low nuclear grade, cribriform and solid types, 1.3 cm in greatest dimension. Posterior margin is within 1 mm from DCIS. ER 99%, HI 99% 06/06/2020 Left breast biopsy ([facility]) Columnar cell change/hyperplasia. Usual ductal hyperplasia. 05/25/2020 Right breast biopsy ([facility]) Ductal carcinoma in situ, nuclear grade 1. ER positive (99%, HI positive (99%) RADIOLOGY/OTHER STUDIES: 05/19/2024 CT chest IMPRESSION: 1. Small left supraclavicular lymph nodes. Although subcentimeter in size, these are slightly increased in size when compared to 11/19/2023. The possibility of this representing metastatic adenopathy cannot be excluded given the change in size. Would advise further evaluation with either a PET/CT at this time or a short-term follow-up chest CT with contrast in 3 months. 2. Stable subcentimeter pulmonary nodules. 04/28/2024 Bilateral diagnostic mammogram ([facility]) Benign, no evidence of malignancy. Normal interval follow-up at 12 months. 11/19/2023 CT chest IMPRESSION: 1. Surgical changes compatible with left upper lobectomy with stable appearance when compared to the prior exam. No significant thoracic adenopathy. Stable subcentimeter solid nodule in groundglass nodule in the right upper lobe of the lungs. Would advise continued imaging surveillance. 06/04/2023 Bone density DEXA 1. Bone mineral density by WHO criteria: Osteoporosis. Fracture risk high. WHO 10-year fracture risk assessment described above. 2. When compared with the most recent study 05/31/2021, there has been a 7.3% increase in bone mineral density of the lumbar spine, and a 3.1% decrease in bone mineral density at the left hip. 05/21/2023 CT chest IMPRESSION: 1. Postoperative changes involving left hemithorax, stable in appearance from prior examination of 01/10/2023. 2. Subcentimeter right upper lobe nodules, unchanged. 3. No substantial intrathoracic adenopathy is appreciated. 3. Newly apparent subacute/healing fractures involving the right 5th through 7th ribs are appreciated. 04/30/2023 Bilateral diagnostic mammogram ([facility]) Benign, no evidence of malignancy. Normal interval follow-up at 12 months. 01/10/2023 CT chest IMPRESSION: 1. Postoperative changes involving left hemithorax, as above. Improving loculated left apical pleural effusion and adjacent left perihilar atelectasis, as above. Patchy left upper lung zone groundglass opacities are identified on today's examination. 2. Subcentimeter right upper lobe nodules, larger measuring 7 mm, stable. 3. No substantial intrathoracic adenopathy is appreciated. 07/12/2022 CT chest IMPRESSION: 1. Since 06/19/2022, removal of left anterior pleural catheter and left basilar chest tubes. Increase in size of anterior pleural effusion within the lobectomy cavity and left basilar small pleural effusion. Resolution of previously seen pneumothorax component. 2. Stable regions of atelectasis/scarring involving the left lung and anterior right middle lobe. No new airspace consolidation. 3. Unchanged indeterminate 0.7 cm right upper lobe pulmonary nodule. Continued attention on subsequent studies is suggested. 4. No progressive lymphadenopathy. 05/02/2022 Brain MRI ([facility]) Brain MRI within limits of normal. No signs of intracranial mass or abnormal enhancement. 04/11/2022 PET scan ([facility]) Nodular opacity in the left upper lobe demonstrates moderate uptake. No signs of distant metastases. 04/04/2022 High-resolution chest CT ([facility]) Previous linear scarlike opacity left upper lobe measuring 11 x 8 mm in December 2019 is now irregularly lobulated and measures 1.5 x 1.3 cm and is suspicious. PET scan or biopsy recommended. 06/08/2021 Diagnostic right mammogram and right breast ultrasound ([facility]) 2.2 cm complex fluid collection in the lumpectomy bed at the 5 o'clock position. Could be a postoperative seroma, old hematoma, or abscess. No finding to suggest malignancy in the right breast. 05/31/2021 Bone density DEXA ([facility]) Increasing osteopenia in the hips. Significant loss of bone in the lumbar spine, while remaining within normal limits LABORATORY DATA: Hemoglobin (g/dL) Date Value 11/26/2023 12.5 08/10/2021 11.5 Hematocrit (%) Date Value 11/26/2023 38.0 08/10/2021 35.0 WBC (k/uL) Date Value 11/26/2023 6.15 08/10/2021 5.13 Platelet Count (k/uL) Date Value 11/26/2023 150 08/10/2021 133 ASSESSMENT/PLAN: 1. 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 Status post lingular sparing left upper lobectomy and mediastinal lymph nodedissection 06/13/2022. Pathology revealed the primary tumor was 2 cm, 0 of 15 lymph nodes involved,margins negative. The primary tumor was positive for ALK mutation, plus elevated PD-L1 expression. Postop it was elected not to treat with adjuvant chemotherapy or adjuvant radiation therapy, and routine follow-up recommended. Since initial diagnosis and surgery the patient has had no documented recurrence. Most recent restaging chest CT 05/19/2024 revealed small left supraclavicular lymph nodes. Althoughsubcentimeter in size, these are slightly increased in size when compared to 11/19/2023. The possibility of this representing metastatic adenopathy cannot be excluded given the change in size. Options for further evaluation with a PET scan now or follow-up CT in 3 months was discussed, and the patient requested CT. Will therefore arrange for a repeat CT in 3 months, then return for follow-up. 2. 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 The patient presented with right breast pain and was found to have an abnormality in the retroareolar area of the right breast. A right breast breast biopsy obtained 05/25/2020 revealed a low-grade ER/HI positive DCIS. The patient also underwent a left breast biopsy on 06/06/2020 which was benign. Genetic testing revealed no evidence of deleterious mutations. 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 Adjuvant hormonal therapy with anastrozole started July 2020. The patient received adjuvant radiation therapy to the right breast 08/08/2020 through 08/19/2020 (3000 cGy in 5 fractions). At this time she has no evidence of disease. Plans are to continue anastrozole for 5 years total (July 2025). Next surveillance mammogram due March 2025. 3. Heart disease - ICD9: 429.9, ICD10: I51.9 History of coronary artery disease and aortic valve stenosis. Status post CABG, aortic valve replacement and cardiac ablation November 2019. History of paroxysmal atrial fibrillation - resolved after herinitial cardiac procedure in November 2019. Apparently the patient developed recurrent atrial fibrillation in August 2020 and underwent an additional ablation 01/04/2021. Currently on Eliquis and aspirin. Co ntinue management per PCP/cardiology. 4. 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 Currently on Eliquis and aspirin. Continue management per PCP/neurology. 5. PMR Diagnosed approximately 2018. Currently not on treatment. Continue management per rheumatology. 6. Age-related osteoporosis - ICD9: 733.01, ICD10: M81.0 The patient has a long history of osteopenia. Most recent bone density DEXA May 2023 revealed bone loss in the left hip consistent with osteoporosis. Reviewed the need for Calcium and Vitamin D supplements and weight bearing exercise as tolerated. The patient will discuss with her PCP options for additional therapy including antiresorptive agents. Bryanna Adan MD CC: Jasmyne Casillas CNP (PCP at [facility]), Dr. Shaniqua Ellsworth (Pulmonary, [place]), [facility] History of Present illness Narrative* Ana Bazzi, RT(R) - 05/19/2024 9:45 AM EST Radiology Service Progress Note PATIENT NAME: Jemima Bradford DATE OF SERVICE: May 19, 2024 TIME: 9:46 AM PATIENT IDENTITY VERIFICATION COMPLETED USING TWO (2) IDENTIFIERS: Name and Date of confirmedby patient verbally. FALL SCREENING: Has the patient had 2 falls in the last year or 1 fall with injury or currently using an Ambulatory Assistive Device (Walker, Cane, Wheelchair, Crutches, etc.)? No PATIENT GENDER DATA: Female. status: : No status: NO. PATIENT RELEVANT IMPLANT DATA REVIEWED: Not Applicable PATIENT PRESENTS WITH AN IMPLANTABLE OR ATTACHED PHYSICAL SCIENCES PROFESSOR: No RADIOLOGY DEPARTMENT: CT; Exam(s) Completed: Chest PERIPHERAL IV DATA: Not applicable SIGNED BY: RT Vito(Mikala) May 19, 2024 9:46 AM documented in this encounterK[facility]-2024 NoteHNO ID: [id number] Author: NAA BAZZI RT(R) Service: ? Author Type: Technologist Type: Progress Notes Filed: 05/19/2024 09:47 Note Text: Radiology Service Progress Note PATIENT NAME: Jemima Bradford DATE OF SERVICE: May 19, 2024 TIME: 9:46 AM PATIENT IDENTITY VERIFICATION COMPLETED USING TWO (2) IDENTIFIERS: Name and Date of confirmed by patient verbally. FALL SCREENING: Has the patient had 2 falls in the last year or 1 fall with injury or currently using an Ambulatory Assistive Device (Walker, Cane, Wheelchair, Crutches, etc.)? No PATIENT GENDER DATA: Female. status: : No status: NO. PATIENT RELEVANT IMPLANT DATA REVIEWED: Not Applicable PATIENT PRESENTS WITH AN IMPLANTABLE OR ATTACHED PHYSICAL SCIENCES PROFESSOR: No RADIOLOGY DEPARTMENT: CT; Exam(s) Completed: Chest PERIPHERAL IV DATA: Not applicable SIGNED BY: RT Vito(R) May 19, 2024 9:46 [facility]11-06-2024 Evaluation note* Diagnosis Onset Date Resolution Status Admit Date Chronic pain acute May 9:42am Left knee pain acute May 062023 9:42am Primary osteoarthritis of le ft knee acute May 06 9:42am Primary osteoarthritis of ri ght knee acute June 02 9:57am Anemia acute June 15, 2024 1:44pm GERD (gastroesophageal reflu x disease) acute June 15 2 024 1:44pm Irritable bowel syndrome wit h constipation acute June 15 024 1:44pm [facility] Work Phone: 1(247) 286-319211-06-2024 Evaluation note* Diagnosis Onset Date Resolution Status Admit Date Chronic pain acute May 9:42am Left knee pain acute May 062023 9:42am Primary osteoarthritis of le ft knee acute May 06 9:42am Primary osteoarthritis of ri ght knee acute June 02 9:57am Anemia acute June 15, 2024 1:44pm GERD (gastroesophageal reflu x disease) acute June 15, 1:44pm Irritable bowel syndrome wit h constipation acute June 15 1:44pm Primary osteoarthritis of le ft knee acute July 16 9:37am [facility] Work Phone: 1(628) 475-658611-06-2024 Evaluation note* Diagnosis Onset Date Resolution Status Admit Date Chronic pain acute May 9:42am Left knee pain acute May 062023 9:42am Primary osteoarthritis of le ft knee acute May 06 9:42am Primary osteoarthritis of ri ght knee acute June 02 9:57am Anemia acute June 15, 2024 1:44pm GERD (gastroesophageal reflu x disease) acute June 15 1:44pm Irritable bowel syndrome wit h constipation acute June 15 1:44pm Primary osteoarthritis of le ft knee acute July 16 9:37am Anemia acute July 27, 2024 9:48am Impaired mobility and activities of daily living acute 2024 9:48am Irritable bowel syndrome wit h constipation acute July 27 9:48am Left knee pain acute July 272024 9:48am Primary osteoarthritis of le ft knee acute July 27 9:48am S/P total knee arthroplasty acute July 27, 2024 9:48am [facility] Work Phone: 1(475) 350-959011-06-2024 Evaluation note* Diagnosis Onset Date Resolution Status Admit Date Chronic pain acute May 9:42am Left knee pain acute May 062023 9:42am Primary osteoarthritis of le ft knee acute May 06 9:42am Primary osteoarthritis of ri ght knee acute June 02 9:57am Anemia acute June 15, 2024 1:44pm GERD (gastroesophageal reflu x disease) acute June 15, 2 024 1:44pm Irritable bowel syndrome wit h constipation acute June 15, 2 024 1:44pm Primary osteoarthritis of le ft knee acute July 16 9:37am Anemia acute July 27, 2024 9:48am Impaired mobility and activities of daily living acute 2024 9:48am Irritable bowel syndrome wit h constipation acute July 27 9:48am Left knee pain acute July 272024 9:48am Primary osteoarthritis of le ft knee acute July 27 9:48am S/P total knee arthroplasty acute July 27, 2024 9:48am Status post total left knee replacement acute July 27 9:48am Anemia acute July 28, 2024 2:50pm CHF (congestive heart failure) acute July 28, 2024 2:50pm Chronic pain acute July 2:50pm CKD (chronic kidney disease) acute July 28, 2024 2:50pm GERD (gastroesophageal reflu x disease) acute July 28 2:50pm History of revision of total replacement of right knee joint acute July 28, 2024 2:50pm Hypertension acute July 2:50pm Hypothyroidism acute July 282024 2:50pm Impaired mobility and activities of daily living acute 2024 2:50pm Irritable bowel syndrome wit h constipation acute July 28 2:50pm Osteoporosis without current pathological fracture acute July 282024 2:50pm Sleep apnea acute July 28, 2024 2:50pm Status post total left knee replacement acute July 28 2:50pm [facility] Work Phone: 1(295) 789-217510-22-2024 [facility] NoteUT Electrophysiology Consult Note Reason for Consultation: AV repalcement+ MAZE, s/p Atypical LA flutter ablation 04/07/24 Pt is here for edema. Pt [...] aortic valve was seen with good flow. ECHO 10/15/23 Patient here for 6 mo follow up PAF, CAD, and hypertension. C/o SOB, LE edema, and weight gain. C/o wheezing. Denies chest pain and bleeding on Eliquis. she is on Bumex 1 mg which has been replaced for Lasix. she is also on Aldactone. She states that she is not being diuresing as well and her last creatinine was 1.34 that was done at [facility] on 09/18/2023 Which is an improvement from 1.4 that was done in May 2023. EKG 06/26/23 SR. 04/01/23 Patient for follow-up of her echocardiogram aortic valve replacement is well-seated with no concerns EF 55% shows mildly [...] ischemia. she is supposed to follow-up with [facility] for her oncology follow-up. he tells me [...] 10, 11 and 12; Cryoanalgesia procedure, interspaces 5 - 7 on 06/13/22 for a Left upper lobe adenocarcinoma at [facility] this was complicated by left apical hydropneumothorax [...] 94 to 97%. he was evaluated by high school tutor for the above and they had changed her medication from Accolate to Singulair for cost reasons. EKG 09/18/22 SR Prior HPI: Jemima Bradford is a 83 y.o. year old with past medical history of Aortic valve replacement with 23 mm Avalus pericardial valve, Breast CA s/p XRT, Coronary artery bypass grafting x1, MARCUS to LAD + Extended left atrial CryoMaze procedure and exclusion of left atrial appendage using 45 mm AtriClip device, Aortic root enlargement with pericardial patch using Nicks technique with h/o of atrial fibrillation/ flutter with RVR who underwent left atrial flutter ablation. She has been in SR since. She was recently Dx with lung CA and BX proven for adeno CA. She is being planned for lobectomy at [facility] EK05/15/22 SR 02/27/22 SR 08/11/21 SR 05/30/21 [...] 0.55 and no evidence of stenosis. Moderate TR seen 02/10/2020 reveals a normal EF of 60% Echocardiogram performed (more content not included)...[facility] History of Present illness Narrative* Kerry Black - 03/25/2024 8:15 PM EDT Patient arrived for baseline sleep testing on 03/25/24 @ 8:15 pm. Testing explained, all questions answered, pt voices understanding. [facility] History of Present illness Narrative* Bryanna Adan MD - 11/26/2023 10:15 AM EDT PATIENT NAME: Jemima Bradford DATE: 11/25/2022 PRIMARY CARE PHYSICIAN: Jasmyne Casillas CNP ([facility]) OTHER PHYSICIANS: Dr. Keene, Dr. Ferrari ( [facility] Cardiology, [place]), Dr. Pizarro, Dr. Arguelles,Dr. Shaniqua Ellsworth (Pulmonary, [place]), Dr. Mitzi Amaral Portions of this encounter note have been copied from my note from 05/28/2023 and has been updated where appropriate, and reflect my current medical decision making from today. CC: This is an 83 year old female with a history of DCIS and recently diagnosed lung cancer, seen for scheduled follow-up. INTERIM HISTORY: Since the patient's last visit here she has had no significant medical changes. Chronic shortness of breath is very minimal. No new pulmonary symptoms. No unusual pain. She has noticed no changes in her breasts. She remains on anastrozole and is tolerating it well. She remains on ASA and Eliquis for her previous CVA. She bruises quite easily. No other complaints today. MEDICATIONS: anastrozole (ARIMIDEX) 1 mg tablet Take 1 tablet by mouth once daily. montelukast (SINGULAIR) 10 mg tablet Take 10 mg by mouth once daily. gabapentin (NEURONTIN) 300 mg capsule Take 1 capsule by mouth daily at bedtime for 90 days. metoprolol tartrate, short acting, (LOPRESSOR) 25 mg tablet Take 1/2 tablet by mouth twice daily. amiodarone (PACERONE) 200 mg tablet Take 2 tablets by mouth twice daily for 5 days, THEN 1 tablet twice daily for 5 days, THEN 1 tablet once daily. (Patient not taking: Reported on 11/13/2022) levothyroxine (SYNTHROID) 50 mcg tablet levothyroxine 50 mcg tablet TAKE 1 TABLET BY MOUTH DAILY FOR HYPOTHYROIDISM apixaban (ELIQUIS) 5 mg tab(s) Eliquis 5 mg tablet Take 1 tablet twice a day by oral route for 90 days. calcium carbonate (CALTRATE) 600 mg calcium (1,500 mg) tab 600 mg. melatonin 10 mg tab 10 mg. aspirin, enteric coated (ASPIRIN, ENTERIC COATED) 81 mg EC tablet Take 81 mg by mouth once daily. rosuvastatin (CRESTOR) 40 mg tablet Take 40 mg by mouth once daily. furosemide (LASIX) 40 mg tablet Take 40 mg by mouth once daily. spironolactone (ALDACTONE) 25 mg tablet Take 25 mg by mouth once daily. esomeprazole (NEXIUM) 40 mg capsule Take 40 mg by mouth as directed. Twice per week nitroglycerin sublingual (NITROQUICK) 0.4 mg SL tablet Dissolve 1 tablet under the tongue every 5 minutes as needed. COQ10, UBIQUINOL, ORAL Take 1 tablet by mouth once daily. Chromium Picolinate 500 mcg cap Take 1 tablet by mouth once daily. MAGNESIUM ORAL Take 1 tablet by mouth once daily. 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 Aortic valve stenosis mild Arthritis Asthma controlled no inhalers Coronary artery disease Hypercholesteremia Hypertension Polymyalgia rheumatica (HCC) PAST SURGICAL HISTORY: PAST SURGICAL HISTORY Procedure Laterality Date APPENDECTOMY 07/01/1978 ARTHROSCOPY KNEE MEDIAL RELEASE 2002,2010 rt & Lt knee ARTHRP KNE CONDYLE&PLATU MEDIAL&LAT COMPARTMENTS Right 07/01/2013 right x2 BREAST LUMPECTOMY HX BUNIONECTOMY, LAPIDUS-TYPE 07/01/2010 rt toe CHOLECYSTECTOMY 07/01/2005 COLONOSCOPY & POLYPECTOMY 2004, 2005, 2009 x 3 CYSTO LASER TX URETERAL CALC 07/01/2009 stent placement CYSTO W/RETROGRADE x 6 D&C (INCOMPLETE AB), ANY TRIMESTER 07/01/1974 EXCISE EXCESS SKIN TISSUE,ABDOMEN 07/01/1994 Abdominalplasty LITHOTRIPSY PROC UNILATERAL 07/01/1985 rt kidney PAST SURGICAL HISTORY OF 12/03/2019 CABG 1v, cryomaze and AVr REMV CATARACT EXTRACAP,INSERT LENS STENT PLACEMENT 07/01/2003 LAD TONSILLECTOMY HX as child REVIEW OF SYSTEMS: GENERAL: No weight loss, malaise or fevers. HEENT: Negative for frequent or significant headaches, No changes in hearing or vision, no nose bleeds or other nasal problems RESPIRATORY: Negative for cough, wheezing or shortness of breath. CARDIOVASCULAR: Negative for chest pain, leg swelling or palpitations. GI: Negative for abdominal discomfort, blood in stools or black stools or change in bowel habits : No history of dysuria, frequency or incontinence MUSCULOSKELETAL: Negative for: joint pain or swelling, back pain and muscle pain SKIN: Negative for lesions, rash, and itching. HEMATOLOGY/LYMPHOLOGY: Negative for prolonged bleeding, bruising easily or swollen nodes. NEURO: No history of headaches, syncope, paralysis, seizures or tremors PHYSICAL EXAM: Vitals: BP 110/67 Pulse 69 Temp 36.2 C (97.2 F) (Temporal) Resp 18 Ht 165.1 cm (5' 5 ) SpO2 98% BMI 30.69 kg/m General appearance: well appearing, alert, in no acute distress, well-hydrated, well nourished Skin: skin color, texture, turgor normal, no suspicious rashes or lesions Head: normal Eyes: Anicteric sclera. Pupils are equally round and reactive to light. Extraocular movements are intact. Ears: negative findings: external ears normal to inspection and palpation Oropharynx: negative Neck: Supple, no adenopathy; thyroid symmetric, normal size Lymph Nodes: No Submandibular, cervical, supraclavicular, axillary, or inguinal lymphadenopathy present Breast: Not examined today Back: no tenderness to palpation Lungs: clear to auscultation, no wheezing or rhonchi Heart: Negative. RRR without murmur, gallop, or rubs. No ectopy. Abdomen: Normal abdominal exam, Abdomen soft, non-tender. Bowel sounds normal. No masses, organomegaly Rectal: Not done Extremities: Extremities normal. No deformities, edema, or skin discoloration. Good capillary refill. Musculoskeletal: No joint swelling, deformity, or tenderness. Peripheral pulses: Normal PATHOLOGY: 06/13/2022 Left upper lobectomy and regional lymph node dissection A. Lymph node, level 9, excision: - Negative for tumor (0/1). B. Lymph node, 12 central, excision: - Negative for tumor (0/1). C. Lymph node, 11 anterior, excision: - Negative for tumor (0/1). D. Lymph node, 11 posterior, excision: - Negative for tumor (0/1). E. Lymph node, another 11 posterior, excision: - Negative for tumor (0/1). F. Lymph node, 10, excision: - Negative for tumor (0/1). G. Lymph node, 5, excision: - Negative for tumor (0/1). H. Lymph node, 7, excision: - Negative for tumor (0/1). I. Lung, left upper lobe, lingula-sparing left upper lobectomy: - Adenocarcinoma (2 cm), micropapillary predominant (70%), with additional papillary (20%), and acinar (10%) patterns (See synoptic template). - Seven hilar/peribronchial lymph nodes, negative for tumor (0/7). - Margins negative. ALK (D5F3) IMMUNOHISTOCHEMISTRY ASSAY Results: Positive Immunohistochemistry for PD-L1 expression Tumor Cells Positive: 70% ROS1 Rearrangement 0% RET Rearrangement 0% BRAF - No variant detected [Reference Sequence: ([id number])]. EGFR - No variant detected [Reference Sequence: ([id number])]. HER2 (ERBB2) - No variant detected [Reference Sequence: ([id number])]. KRAS - No variant detected [Reference Sequence: ([id number])]. MET - No variant detected [Reference Sequence: ([id number])]. 04/25/2022 CT directed biopsy left upper lung mass ([facility]) Adenocarcinoma consistent with lung primary 06/21/2020 Right breast lumpectomy ([facility]) Ductal carcinoma in situ, low nuclear grade, cribriform and solid types, 1.3 cm in greatest dimension. Posterior margin is within 1 mm from DCIS. ER 99%, HI 99% 06/06/2020 Left breast biopsy ([facility]) Columnar cell change/hyperplasia. Usual ductal hyperplasia. 05/25/2020 Right breast biopsy ([facility]) Ductal carcinoma in situ, nuclear grade 1. ER positive (99%, HI positive (99%) RADIOLOGY/OTHER STUDIES: 11/19/2023 CT chest IMPRESSION: 1. Surgical changes compatible with left upper lobectomy with stable appearance when compared to the prior exam. No significant thoracic adenopathy. Stable subcentimeter solid nodule in groundglass nodule in the right upper lobe of the lungs. Would advise continued imaging surveillance. 06/04/2023 Bone density DEXA 1. Bone mineral density by WHO criteria: Osteoporosis. Fracture risk high. WHO 10-year fracture risk assessment described above. 2. When compared with the most recent study 05/31/2021, there has been a 7.3% increase in bone mineral density of the lumbar spine, and a 3.1% decrease in bone mineral density at the left hip. 05/21/2023 CT chest IMPRESSION: 1. Postoperative changes involving left hemithorax, stable in appearance from prior examination of 01/10/2023. 2. Subcentimeter right upper lobe nodules, unchanged. 3. No substantial intrathoracic adenopathy is appreciated. 3. Newly apparent subacute/healing fractures involving the right 5th through 7th ribs are appreciated. 04/30/2023 Bilateral diagnostic mammogram ([facility]) Benign, no evidence of malignancy. Normal interval follow-up at 12 months. 01/10/2023 CT chest IMPRESSION: 1. Postoperative changes involving left hemithorax, as above. Improving loculated left apical pleural effusion and adjacent left perihilar atelectasis, as above. Patchy left upper lung zone groundglass opacities are identified on today's examination. 2. Subcentimeter right upper lobe nodules, larger measuring 7 mm, stable. 3. No substantial intrathoracic adenopathy is appreciated. 07/12/2022 CT chest IMPRESSION: 1. Since 06/19/2022, removal of left anterior pleural catheter and left basilar chest tubes. Increase in size of anterior pleural effusion within the lobectomy cavity and left basilar small pleural effusion. Resolution of previously seen pneumothorax component. 2. Stable regions of atelectasis/scarring involving the left lung and anterior right middle lobe. No new airspace consolidation. 3. Unchanged indeterminate 0.7 cm right upper lobe pulmonary nodule. Continued attention on subsequent studies is suggested. 4. No progressive lymphadenopathy. 05/02/2022 Brain MRI ([facility]) Brain MRI within limits of normal. No signs of intracranial mass or abnormal enhancement. 04/11/2022 PET scan ([facility]) Nodular opacity in the left upper lobe demonstrates moderate uptake. No signs of distant metastases. 04/04/2022 High-resolution chest CT ([facility]) Previous linear scarlike opacity left upper lobe measuring 11 x 8 mm in December 2019 is now irregularly lobulated and measures 1.5 x 1.3 cm and is suspicious. PET scan or biopsy recommended. 06/08/2021 Diagnostic right mammogram and right breast ultrasound ([facility]) 2.2 cm complex fluid collection in the lumpectomy bed at the 5 o'clock position. Could be a postoperative seroma, old hematoma, or abscess. No finding to suggest malignancy in the right breast. 05/31/2021 Bone density DEXA ([facility]) Increasing osteopenia in the hips. Significant loss of bone in the lumbar spine, while remaining within normal limits LABORATORY DATA: Hemoglobin (g/dL) Date Value 11/26/2023 12.5 08/10/2021 11.5 Hematocrit (%) Date Value 11/26/2023 38.0 08/10/2021 35.0 WBC (k/uL) Date Value 11/26/2023 6.15 08/10/2021 5.13 Platelet Count (k/uL) Date Value 11/26/2023 150 08/10/2021 133 ASSESSMENT/PLAN: 1. 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 Status post lingular sparing left upper lobectomy and mediastinal lymph nodedissection 06/13/2022. Pathology revealed the primary tumor was 2 cm, 0 of 15 lymph nodes involved,margins negative. 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 Postop it was elected not to treat with adjuvant chemotherapy or radiation therapy, and routine follow-up recommended. Most recent chest CT 11/19/2023 stable. Currently the patient has no evidence of disease. At this time we will continue close observation. Repeat chest CT in 6 months, then return for follow-up. 2. 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 The patient presented with right breast pain and was found to have an abnormality in the retroareolar area of the right breast. A right breast breast biopsy obtained 05/25/2020 revealed a low-grade ER/HI positive DCIS. The patient also underwent a left breast biopsy on 06/06/2020 which was benign. Genetic testing revealed no evidence of deleterious mutations. 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 Adjuvant hormonal therapy with anastrozole started July 2020. The patient received adjuvant radiation therapy to the right breast 08/08/2020 through 08/19/2020 (3000 cGy in 5 fractions). At this time she has no evidence of disease. Plans are to continue anastrozole for 5 years total (July 2025). Next surveillance mammogram due March 2024. 3. Heart disease - ICD9: 429.9, ICD10: I51.9 History of coronary artery disease and aortic valve stenosis. Status post CABG, aortic valve replacement and cardiac ablation November 2019. History of paroxysmal atrial fibrillation - resolved after herinitial cardiac procedure in November 2019. Apparently the patient developed recurrent atrial fibrillation in August 2020 and underwent an additional ablation 01/04/2021. Currently on Eliquis and aspirin. Co ntinue management per PCP/cardiology. 4. 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 Currently on Eliquis and aspirin. Continue management per PCP/neurology. 5. PMR Diagnosed approximately 2019. Currently not on treatment. Continue management per rheumatology. 6. Age-related osteoporosis without current pathological fracture - ICD9: 733.01, ICD10: M81.0 The patient has a long history of osteopenia. Most recent bone density DEXA May 2023 revealed bone loss in the left hip consistent with osteoporosis. Reviewed the need for Calcium and Vitamin D supplements and weight bearing exercise as tolerated. The patient will discuss with her PCP options for additional therapy including antiresorptive agents. If it is elected to give parenteral medications (Prolia, Reclast) these can be arranged at our office if the patient cannot receive locally. Bryanna Adan MD CC: Jasmyne Casillas CNP ([facility]) documented [facility] this [facility] History of Present illness Narrative* Jennifer Anderson RT(R) - 11/19/2023 9:00 AM EDT Radiology Service Progress Note PATIENT NAME: Jemima Bradford DATE OF SERVICE: November 19, 2023 TIME: 9:43 AM PATIENT IDENTITY VERIFICATION COMPLETED USING TWO (2) IDENTIFIERS: Name and Date of confirmedby patient verbally. FALL SCREENING: Has the patient had 2 falls in the last year or 1 fall with injury or currently using an Ambulatory Assistive Device (Walker, Cane, Wheelchair, Crutches, etc.)? No PATIENT GENDER DATA: Female. status: : No status: NO. PATIENT RELEVANT IMPLANT DATA REVIEWED: Not Applicable PATIENT PRESENTS WITH AN IMPLANTABLE OR ATTACHED PHYSICAL SCIENCES PROFESSOR: No RADIOLOGY DEPARTMENT: CT; Exam(s) Completed: Chest PERIPHERAL IV DATA: Not applicable SIGNED BY: RT Michael(Mikala) November 19, 2023 9:43 AM documented in this encounterK[facility]02-15-2024 History of Present illness Narrative* Kosta Keene, - 08/15/2023 9:00 AM EST Images from the original note were not included. Jemima Bradford 1940 Jemima Bradford is a 83 y.o. female presents with chief complaint of 3rd poy Rt. lumpectomy (Mamm was done in March) HPI: HPI It is 3 POY from her Rt. Lumpectomy for DCIS. Her mamm's were done in March. She has no breast issues SUBJECTIVE: MEDICATIONS: ALLERGIES Current Outpatient Medications Medication Instructions albuterol HFA 90 mcg/act inhaler INHALE 2 PUFFS BY MOUTH 4 TIMES DAILY NEEDED FOR WHEEZING anastrozole (Arimidex) 1 MG chemo tablet 1 tablet, Oral, Daily aspirin 81 MG chewable tablet Chew 1 tablet every day by oral route. bumetanide (BUMEX) 1 mg, Oral, Every morning Calcium Carbonate-Vitamin D 600-5 MG-MCG tablet 1 tablet, Oral, Daily cholecalciferol (Vitamin D-3) 50 MCG (1999 UT) tablet Take 1.5 tablets every day by oral route. Chromium Picolinate 500 MCG capsule 1 tablet, Oral, Daily RT coenzyme Q-10 10 MG capsule Every 24 hours Eliquis 5 MG tablet 1 tablet, Oral, 2 times daily esomeprazole (NEXIUM) 20 mg, Oral, As needed furosemide (Lasix) 40 MG tablet 1 tablet, Oral, Daily gabapentin (Neurontin) 300 MG capsule TAKE 1 CAPSULE BY MOUTH ONCE DAILY AT BEDTIME FOR 90 DAYS levothyroxine (Synthroid, Levoxyl) 50 MCG tablet 1 tablet, Oral, Daily Linzess 290 MCG capsule TAKE 1 CAPSULE BY MOUTH ONCE DAILY AT LEAST 30 MINUTES BEFORE THE FIRST MEAL OF THE DAY ON AN EMPTY STOMACH magnesium oxide (Mag-Ox) 400 MG tablet 1 tablet, Oral, Daily Melatonin 10 MG capsule Take 1 capsule every day by oral route. metoprolol tartrate (Lopressor) 25 MG tablet 1 tablet, Oral, 2 times daily montelukast (SINGULAIR) 10 mg, Oral, Daily RT nitroglycerin (Nitrostat) 0.4 MG SL tablet DISSOLVE ONE TABLET UNDER THE TONGUE EVERY 5 MINUTES NEEDED FOR CHEST PAIN. DO NOT EXCEED A TOTAL OF 3 DOSES IN 15 MINUTES CALL 911. rosuvastatin (Crestor) 40 MG tablet 1 tablet, Oral, Daily spironolactone (Aldactone) 25 MG tablet 1 tablet, Oral, Daily Allergies Allergen Reactions Iodides Anaphylaxis and Shortness of breath Iodinated Contrast Media Shortness of breath Leucine Chlorproethazine Unknown Other Reaction(s): abdominal pain Clarithromycin Unknown Collagen Other Reaction(s): the Sinvist collagen in the knee Doxycycline Other Reaction(s): Unknown Hylan G-F 20 Unknown and Swelling Chlorpromazine Unknown and Rash Nickel Rash and Unknown Nitrous Oxide Unknown, Nausea And Vomiting and GI intolerance PAST MEDICAL HISTORY: SOCIAL HISTORY SURGICAL HISTORY: Past Medical History: Diagnosis Date Acute tonsillitis Adenocarcinoma (CMS/HCC) Ankle fracture Aortic stenosis Appendicitis Arthritis Asthma (CMS/HCC) Atrial fibrillation (CMS/HCC) Breast pain, right Bunion CAD (coronary artery disease) (CMS/HCC) Carpal tunnel syndrome Cataracts, bilateral Cerebrovascular accident (CMS/HCC) DCIS (ductal carcinoma in situ) of breast Right ER/HI+ Esophageal ulcer Family history of cancer H/O abdominoplasty Heart disease Hiatal hernia History of colonic polyps Hyperlipidemia (CMS/HCC) Hypertension (CMS/HCC) Migraines (CMS/HCC) Mitral valve prolapse Nephrolithiasis Sleep apnea Torn meniscus Social History Tobacco Use Smoking status: Former Types: Cigarettes Smokeless tobacco: Never Substance Use Topics Alcohol use: Never Drug use: Never Past Surgical History: Procedure Laterality Date BI US GUIDED BREAST LOCALIZATION AND BIOPSY LEFT Left 06/06/2020 BI US GUIDED BREAST LOCALIZATION AND BIOPSY LEFT NOM[facility] DATA LEGACY BREAST LUMPECTOMY Right 05/2020 BUNIONECTOMY CARDIAC CATHETERIZATION CARPAL TUNNEL RELEASE CATARACT EXTRACTION EXTRACAPSULAR W/ INTRAOCULAR LENS IMPLANTATION Bilateral 2011 CHOLECYSTECTOMY COLONOSCOPY W/ BIOPSIES AND POLYPECTOMY 2018 CORONARY ARTERY BYPASS GRAFT 2019 CT GUIDED ABSCESS FLUID COLLECTION DRAINAGE 06/19/2022 CT GUIDED ABSCESS FLUID COLLECTION DRAINAGE 06/19/2022 CYSTOSCOPY W/ LASER LITHOTRIPSY 1985 CYSTOSCOPY W/ RETROGRADES 2009 LUNG REMOVAL, PARTIAL TOTAL KNEE ARTHROPLASTY 2014 FAMILY HISTORY No family history on file. REVIEW OF SYMPTOMS: Review of Systems Constitutional: Negative for diaphoresis and unexpected weight change. HENT: Negative for hearing loss, tinnitus and voice change. Respiratory: Positive for shortness of breath. Cardiovascular: Negative for chest pain and palpitations. Musculoskeletal: Positive for arthralgias. Neurological: Negative for dizziness, seizures and headaches. All other systems reviewed and are negative. Hematological: Negative for adenopathy. Does not bruise/bleed easily. OBJECTIVE: Visit Vitals OB Status Postmenopausal Smoking Status Former Physical Exam Exam conducted with a pipeliner present. HENT: Head: Normocephalic. Cardiovascular: Rate and Rhythm: Normal rate and regular rhythm. Pulmonary: Effort: Pulmonary effort is normal. Breath sounds: Normal breath sounds. Chest: Comments: Bilateral subclavicular, infraclavicular and axillary lymph nodes were normal. Each breast was examined in the sitting and supine position. There was no evidence of abnormal masses, skin dimpling or nipple discharge in either breast. The right breast has the well healed surgical scar in the inframammary fold, in the medial corner of the incision at the 5:00 postion at the inframamary fold is a mobile 1 cm mass consistent with the area of the seroma. Abdominal: General: Abdomen is flat. Bowel sounds are normal. Palpations: Abdomen is soft. Skin: General: Skin is warm and dry. Neurological: Mental Status: She is alert. ASSESSMENT AND PLAN: Assessment/Plan Problem List Items Addressed This Visit Ductal carcinoma in situ (DCIS) of right breast - Primary documented in this encounterMer[facility] [id number] Evaluation note* Encounter Date Diagnosis Assessment Notes Treatment Notes Treatment Clinical Notes Aug, Primary osteoarthritis of left knee (ICD-10 - M17.12) Patient voices minimal complaints of pain at this time. She attributes this to a recent left genicular radiofrequency ablation. We will continue to monitor and proceed with repeat treatment to the area as needed. In the meantime, she was advised to apply Voltaren Gel to the area as needed. We will follow up in six months, sooner if needed. Anatomy discussed in detail with patient in regards to patients condition. Overall, patient believes their pain is reasonably well controlled and she is in agreement with our treatment plan. Aug, Left knee pain (ICD-10 - M25.562) Aug, Chronic pain (ICD-10 - G89.29) Patient has a history of right TKA, she notes occasional discomfort/instabili ty. She has been encouraged to follow up with orthopedics if this is of concern, we also briefly discussed the possibility of genicular nerve blocks/ablation for this knee should her pain become the primary concern. Aug, Other Above note writ ten by Antonio Gannon MA, Press Tool Maker. Edited and approved by Dr. Eugene Mims MD. [facility] Other 01-17-2024 Evaluation note* Encounter Date Diagnosis Assessment Notes Treatment Notes Treatment Clinical Notes Jul, Primary osteoarthritis of left knee (ICD-10 - M17.12) Patients primary complaint today is persistent, severe left knee pain. Recent imaging results show evidence of moderate degenerative changes, consistent with her symptoms. Surgical intervention has been discussed with the orthopedics however she would like to exhaust all conservative treatment prior to considering this. Based on recent positive results, as well as location of pain and exam findings, patient is a reasonable candidate for a left genicular radiofrequency ablations which we will proceed with. Risks and benefits of procedure explained to patient; patient verbalizes understanding. Jul, Left knee pain (ICD-10 - M25.562) Jul, Chronic pain (ICD-10 - G89.29) Jul, Other Above note writ ten by Chelle Oliveira RN, Press Tool Maker. Edited and approved by Dr. Eugene Mims MD. [facility] Other 01-11-2024 Evaluation note* Encounter Date Diagnosis Assessment Notes Treatment Notes Treatment Clinical Notes Jul, Primary osteoarthritis of left knee (ICD-10 - M17.12) Jul, Left knee pain (ICD-10 - M25.562) Jul, Osteoporosis (ICD-10 - M81.0) Jul, Other In regards to t he left knee osteoarthritis, she has responded well to the genicular nerve blocks. At this point I would recommend following up as scheduled with Dr. Mims and continuing working with him on future nerve blocks if necessary. In regards to the osteoporosis were going get her referred over to see Toshia our nurse practitioner to discuss any further treatment options. [facility] Other 12-20-2023 Evaluation note* Encounter Date Diagnosis Assessment Notes Treatment Notes Treatment Clinical Notes May, Primary osteoarthritis of left knee (ICD-10 - M17.12) Patients primary complaint today is persistent, severe left knee pain. Recent imaging results show evidence of moderate degenerative changes, consistent with her symptoms. Surgical intervention has been discussed with the orthopedics however she would like to exhaust all conservative treatment prior to considering this. Based on recent positive results, as well as location of pain and exam findings, patient is a reasonable candidate for a left genicular nerve block which we will proceed with. It was further explained should this provide significant short term relief we will proceed with a subsequent radiofrequency ablation. May, Left knee pain (ICD-10 - M25.562) May, Chronic pain (ICD-10 - G89.29) May, Other Above note writ ten by Antonio Gannon MA, Press Tool Maker. Edited and approved by Dr. Eugene Mims MD. [facility] Other 11-30-2023 Evaluation note* Encounter Date Diagnosis Assessment Notes Treatment Notes Treatment Clinical Notes May, Primary osteoarthritis of left knee (ICD-10 - M17.12) Patients primary complaint today is persistent, severe left knee pain. Recent imaging results show evidence of moderate degenerative changes, consistent with her symptoms. Surgical intervention has been discussed with the orthopedics however she would like to exhaust all conservative treatment prior to considering this. Based on location of pain and exam findings, patient is a reasonable candidate for a left genicular nerve block which we will proceed with. It was further explained should this provide significant short term relief we will proceed with a repeat block and subsequent radiofrequency ablation. May, Left knee pain (ICD-10 - M25.562) May, Chronic pain (ICD-10 - G89.29) May, Other Above note writ ten by Antonio Gannon MA, Press Tool Maker. Edited and approved by Dr. Eugene Mims MD. Medical decision making shows a new problem to me with further workup planned or suggested with the potential for extensive treatment options that were considered with the most applicable given this patient's situation as noted above. Treatment options considered include a combination of physical therapy approaches, pharmacologic management, and interventional procedures. Those most applicable to the patient were discussed at this time. Risk of complications and/or morbidity and mortality is high given that acute and chronic pain poses a threat to life and bodily function if undertreated, poorly treated or with failure to maintain adequate treatment and timely followup. Given the serious and fluctuating nature of pain with extensive consideration for whenever pain changes, there always remains the possibility of prolonged functional impairment requiring constant patient reassessment and high-level medical decision making. The amount and complexity of data reviewed is high given that patient labs, radiology reports, and other test were obtained, reviewed and summarized as applicable from the physician portal and/or outside medical records. Pertinent positive and negative findings were considered in medical decision-making. [facility] Other 11-21-2023 History of Present illness Narrative* Jennifer Anderson RT(R) - 05/21/2023 9:00 AM EST Radiology Service Progress Note PATIENT NAME: Jemima Bradford DATE OF SERVICE: May 21, 2023 TIME: 10:11 AM PATIENT IDENTITY VERIFICATION COMPLETED USING TWO (2) IDENTIFIERS: Name and Date of confirmedby patient verbally. FALL SCREENING: Has the patient had 2 falls in the last year or 1 fall with injury or currently using an Ambulatory Assistive Device (Walker, Cane, Wheelchair, Crutches, etc.)? No PATIENT GENDER DATA: Female. status: : No status: NO. PATIENT RELEVANT IMPLANT DATA REVIEWED: Not Applicable RADIOLOGY DEPARTMENT: CT; Exam(s) Completed: Chest PERIPHERAL IV DATA: Not applicable SIGNED BY: RT Michael(R) May 21, 2023 10:11 AM documented in this encounterK[facility]11-15-2023 Evaluation note* Encounter Date Diagnosis Assessment Notes Treatment Notes Treatment Clinical Notes May, Primary osteoarthritis of left knee (ICD-10 - M17.12) May, Other 1. We had a alvarado g discussion with the patient today concerning their left knee osteoarthritis. The radiographs do show osteoarthritis of the knee. At this time the patient would like to avoid surgical intervention. We did discuss the risk and benefits of surgical versus nonoperative management. The patient would like to proceed with nonoperative management. We discussed that our options include injections, physical therapy, and the consistent use of anti-inflammatories. All 3 of these options, including their risks and benefits, were discussed at length with the patient. 2. Tylenol: Discussed taking Tylenol (acetaminophen). Recommended adjusting their dosing to 1000mg by mouth up to 3 times a day. 3. NSAIDs: Recommended against any oral anti-inflammatories due to her Eliquis. Did recommend utilizing Voltaren gel 4-5 times a day. 4. Physical therapy: Discussed formal physical therapy and home regimen. Patient preferred to continue her home exercise regimen.. 5. Injections: Discussed injections as a treatment option. Patient recently had an injection that has not provided her relief. I would not recommend another steroid injection today. At this point time I recommended that we get her over to see Dr. Mims for consideration of a radiofrequency nerve ablation. 6. Follow up as needed or if she does not want proceed with radiofrequency nerve ablation she can come back and we can discuss moving forward possible surgery if she is medically optimized. [facility] Other 10-25-2023 Miscellaneous Notes* Telephone Encounter - Gia Clayton RN - 04/24/2023 9:36 AM EDT Angelika did not receive initial faxed order. Resent to fax provided. [phone] Gia Clayton RN documented in this encounterK[facility]10-12-2023 Evaluation note* Encounter Date Diagnosis Assessment Notes Treatment Notes Treatment Clinical Notes Mar, Primary osteoarthritis of left knee (ICD-10 - M17.12) Mar, Other 1. We had a alvarado g discussion with the patient today concerning their left knee osteoarthritis. The radiographs do show osteoarthritis of the knee. At this time the patient would like to avoid surgical intervention. We did discuss the risk and benefits of surgical versus nonoperative management. The patient would like to proceed with nonoperative management. We discussed that our options include injections, physical therapy, and the consistent use of anti-inflammatories. All 3 of these options, including their risks and benefits, were discussed at length with the patient. 2. Tylenol: Discussed taking Tylenol (acetaminophen). Recommended adjusting their dosing to 1000mg by mouth up to 3 times a day. 3. NSAIDs: Recommended continued Voltaren gel use 4. Physical therapy: Discussed formal physical therapy and home regimen. Patient preferred no PT at this time. 5. Injections: Discussed injections as a treatment option. After consent was obtained, the left knee was injected with 3cc Kenalog and 7cc bupivicaine using sterile technique. Patient tolerated the injection well. 6. Follow up 3 months [facility] Other 10-09-2023 Miscellaneous Notes* Telephone Encounter - Gia Clayton RN - 04/08/2023 1:28 PM EDT Orders faxed to number requested Gia Clayton RN * Telephone Encounter - Gia Clayton RN - 04/08/2023 11:35 AM EDT [facility] [place] requesting US orders of pt's breasts to go with her scheduled mammogram next week. BRM: Please review and sign pended orders, if agreeable. Gia Clayton RN documented in this encounterK[facility]10-04-2023 Procedure [facility]09-13-2023 Evaluation note* Encounter Date Diagnosis Assessment Notes Treatment Notes Treatment Clinical Notes Mar, Barretts esophagus (ICD-10 - K22.70) Repeat EGD in 03/2023Mar, Esophageal dysmotility (ICD-10 - K22.4) Mar, Large hiatal hernia (ICD-10 - K44.9) Mar, Gastric polyp (ICD-10 - K31.7) Mar, Esophagitis (ICD-10 - K20.90) Mar, GERD (gastroesophageal reflux disease) (ICD-10 - K21.9) [facility] Other 07-19-2023 Procedure [facility]07-18-2023 History of Present illness Narrative* Bryanna Adan MD - 01/15/2023 8:02 AM EDT PATIENT NAME: Jemima Bradford DATE: 01/15/2023 PRIMARY CARE PHYSICIAN: Jasmyne Casillas CNP ([facility]) OTHER PHYSICIANS: Dr. Keene, Dr. Ferrari ( [facility] Cardiology, [place]), Dr. Pizarro, Dr. Arguelles,Dr. Shaniqua Ellsworth (Pulmonary, [place]), Dr. Mitzi Amaral Portions of this encounter note have been copied from my note from 11/13/2022 and has been updated where appropriate, and reflect my current medical decision making from today. CC: This is an 82 year old female with a history of DCIS and recently diagnosed lung cancer, seen for scheduled follow-up. INTERIM HISTORY: Since the patient's last visit here she underwent a follow-up chest CT on 01/10/2023. Her scan revealed postop changes, otherwise stable. Clinically she has noticed increasing shortness of breath. She was recently seen by her high school tutor and prescribed inhalers. Apparently the patient also has noticed increasing dysphagia with occasional nausea and vomiting. She is scheduled to undergo an EGD (with dilatation) per Dr. Arora on 01/16/2023. She has had no other significant medical changes, and otherwise feels well. She remains on adjuvanthormonal therapy with Arimidex and is tolerating it well. MEDICATIONS: anastrozole (ARIMIDEX) 1 mg tablet Take 1 tablet by mouth once daily. montelukast (SINGULAIR) 10 mg tablet Take 10 mg by mouth once daily. gabapentin (NEURONTIN) 300 mg capsule Take 1 capsule by mouth daily at bedtime for 90 days. metoprolol tartrate, short acting, (LOPRESSOR) 25 mg tablet Take 1/2 tablet by mouth twice daily. amiodarone (PACERONE) 200 mg tablet Take 2 tablets by mouth twice daily for 5 days, THEN 1 tablet twice daily for 5 days, THEN 1 tablet once daily. (Patient not taking: Reported on 11/13/2022) levothyroxine (SYNTHROID) 50 mcg tablet levothyroxine 50 mcg tablet TAKE 1 TABLET BY MOUTH DAILY FOR HYPOTHYROIDISM apixaban (ELIQUIS) 5 mg tab(s) Eliquis 5 mg tablet Take 1 tablet twice a day by oral route for 90 days. calcium carbonate (CALTRATE) 600 mg calcium (1,500 mg) tab 600 mg. melatonin 10 mg tab 10 mg. aspirin, enteric coated (ASPIRIN, ENTERIC COATED) 81 mg EC tablet Take 81 mg by mouth once daily. rosuvastatin (CRESTOR) 40 mg tablet Take 40 mg by mouth once daily. furosemide (LASIX) 40 mg tablet Take 40 mg by mouth once daily. spironolactone (ALDACTONE) 25 mg tablet Take 25 mg by mouth once daily. esomeprazole (NEXIUM) 20 mg capsule Take 20 mg by mouth as directed. Twice per week (Patient not taking: Reported on 11/13/2022) nitroglycerin sublingual (NITROQUICK) 0.4 mg SL tablet Dissolve 1 tablet under the tongue every 5 minutes as needed. COQ10, UBIQUINOL, ORAL Take 1 tablet by mouth once daily. Chromium Picolinate 500 mcg cap Take 1 tablet by mouth once daily. MAGNESIUM ORAL Take 1 tablet by mouth once daily. 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 Aortic valve stenosis mild Arthritis Asthma controlled no inhalers Coronary artery disease Hypercholesteremia Hypertension Polymyalgia rheumatica (HCC) PAST SURGICAL HISTORY: PAST SURGICAL HISTORY Procedure Laterality Date APPENDECTOMY 07/01/1978 ARTHROSCOPY KNEE MEDIAL RELEASE 2002,2010 rt & Lt knee ARTHRP KNE CONDYLE&PLATU MEDIAL&LAT COMPARTMENTS Right 07/01/2013 right x2 BREAST LUMPECTOMY HX BUNIONECTOMY, LAPIDUS-TYPE 07/01/2010 rt toe CHOLECYSTECTOMY 07/01/2005 COLONOSCOPY & POLYPECTOMY 2004, 2005, 2009 x 3 CYSTO LASER TX URETERAL CALC 07/01/2009 stent placement CYSTO W/RETROGRADE x 6 D&C (INCOMPLETE AB), ANY TRIMESTER 07/01/1974 EXCISE EXCESS SKIN TISSUE,ABDOMEN 07/01/1994 Abdominalplasty LITHOTRIPSY PROC UNILATERAL 07/01/1985 rt kidney PAST SURGICAL HISTORY OF 12/03/2019 CABG 1v, cryomaze and AVr REMV CATARACT EXTRACAP,INSERT LENS STENT PLACEMENT 07/01/2003 LAD TONSILLECTOMY HX as child REVIEW OF SYSTEMS: GENERAL: No weight loss, malaise or fevers. HEENT: Negative for frequent or significant headaches, No changes in hearing or vision, no nose bleeds or other nasal problems RESPIRATORY: Negative for cough, wheezing or shortness of breath. CARDIOVASCULAR: Negative for chest pain, leg swelling or palpitations. GI: Negative for abdominal discomfort, blood in stools or black stools or change in bowel habits : No history of dysuria, frequency or incontinence MUSCULOSKELETAL: Negative for: joint pain or swelling, back pain and muscle pain SKIN: Negative for lesions, rash, and itching. HEMATOLOGY/LYMPHOLOGY: Negative for prolonged bleeding, bruising easily or swollen nodes. NEURO: No history of headaches, syncope, paralysis, seizures or tremors PHYSICAL EXAM: Vitals: BP 120/55 Pulse (!) 52 Temp 36.6 C (97.9 F) (Temporal) Resp 18 Ht 165.1 cm (5' 5 ) Wt 89.5 kg (197 lb 6.4 oz) SpO2 97% BMI 32.85 kg/m General appearance: well appearing, alert, in no acute distress, well-hydrated, well nourished Skin: skin color, texture, turgor normal, no suspicious rashes or lesions Head: normal Eyes: Anicteric sclera. Pupils are equally round and reactive to light. Extraocular movements are intact. Ears: negative findings: external ears normal to inspection and palpation Oropharynx: negative Neck: Supple, no adenopathy; thyroid symmetric, normal size Lymph Nodes: No Submandibular, cervical, supraclavicular, axillary, or inguinal lymphadenopathy present Breast: Not examined today Back: no tenderness to palpation Lungs: clear to auscultation, no wheezing or rhonchi Heart: Negative. RRR without murmur, gallop, or rubs. No ectopy. Abdomen: Normal abdominal exam, Abdomen soft, non-tender. Bowel sounds normal. No masses, organomegaly Rectal: Not done Extremities: Extremities normal. No deformities, edema, or skin discoloration. Good capillary refill. Musculoskeletal: No joint swelling, deformity, or tenderness. Peripheral pulses: Normal PATHOLOGY: 06/13/2022 Left upper lobectomy and regional lymph node dissection A. Lymph node, level 9, excision: - Negative for tumor (0/1). B. Lymph node, 12 central, excision: - Negative for tumor (0/1). C. Lymph node, 11 anterior, excision: - Negative for tumor (0/1). D. Lymph node, 11 posterior, excision: - Negative for tumor (0/1). E. Lymph node, another 11 posterior, excision: - Negative for tumor (0/1). F. Lymph node, 10, excision: - Negative for tumor (0/1). G. Lymph node, 5, excision: - Negative for tumor (0/1). H. Lymph node, 7, excision: - Negative for tumor (0/1). I. Lung, left upper lobe, lingula-sparing left upper lobectomy: - Adenocarcinoma (2 cm), micropapillary predominant (70%), with additional papillary (20%), and acinar (10%) patterns (See synoptic template). - Seven hilar/peribronchial lymph nodes, negative for tumor (0/7). - Margins negative. ALK (D5F3) IMMUNOHISTOCHEMISTRY ASSAY Results: Positive Immunohistochemistry for PD-L1 expression Tumor Cells Positive: 70% ROS1 Rearrangement 0% RET Rearrangement 0% BRAF - No variant detected [Reference Sequence: ([id number])]. EGFR - No variant detected [Reference Sequence: ([id number])]. HER2 (ERBB2) - No variant detected [Reference Sequence: (NM_[id number])]. KRAS - No variant detected [Reference Sequence: ([id number])]. MET - No variant detected [Reference Sequence: ([id number])]. 04/25/2022 CT directed biopsy left upper lung mass ([facility]) Adenocarcinoma consistent with lung primary 06/21/2020 Right breast lumpectomy ([facility]) Ductal carcinoma in situ, low nuclear grade, cribriform and solid types, 1.3 cm in greatest dimension. Posterior margin is within 1 mm from DCIS. ER 99%, HI 99% 06/06/2020 Left breast biopsy ([facility]) Columnar cell change/hyperplasia. Usual ductal hyperplasia. 05/25/2020 Right breast biopsy ([facility]) Ductal carcinoma in situ, nuclear grade 1. ER positive (99%, HI positive (99%) RADIOLOGY/OTHER STUDIES: 01/10/2023 CT chest IMPRESSION: 1. Postoperative changes involving left hemithorax, as above. Improving loculated left apical pleural effusion and adjacent left perihilar atelectasis, as above. Patchy left upper lung zone groundglass opacities are identified on today's examination. 2. Subcentimeter right upper lobe nodules, larger measuring 7 mm, stable. 3. No substantial intrathoracic adenopathy is appreciated. 07/12/2022 CT chest IMPRESSION: 1. Since 06/19/2022, removal of left anterior pleural catheter and left basilar chest tubes. Increase in size of anterior pleural effusion within the lobectomy cavity and left basilar small pleural effusion. Resolution of previously seen pneumothorax component. 2. Stable regions of atelectasis/scarring involving the left lung and anterior right middle lobe. No new airspace consolidation. 3. Unchanged indeterminate 0.7 cm right upper lobe pulmonary nodule. Continued attention on subsequent studies is suggested. 4. No progressive lymphadenopathy. 05/02/2022 Brain MRI ([facility]) Brain MRI within limits of normal. No signs of intracranial mass or abnormal enhancement. 04/11/2022 PET scan ([facility]) Nodular opacity in the left upper lobe demonstrates moderate uptake. No signs of distant metastases. 04/05/2022 Bilateral diagnostic mammogram/right breast ultrasound ([facility]) Benign, no evidence of malignancy. Normal interval follow-up at 12 months. 04/04/2022 High-resolution chest CT ([facility]) Previous linear scarlike opacity left upper lobe measuring 11 x 8 mm in December 2019 is now irregularly lobulated and measures 1.5 x 1.3 cm and is suspicious. PET scan or biopsy recommended. 06/08/2021 Diagnostic right mammogram and right breast ultrasound ([facility]) 2.2 cm complex fluid collection in the lumpectomy bed at the 5 o'clock position. Could be a postoperative seroma, old hematoma, or abscess. No finding to suggest malignancy in the right breast. 05/31/2021 Bone density DEXA ([facility]) Increasing osteopenia in the hips. Significant loss of bone in the lumbar spine, while remaining within normal limits 02/02/2021 Bilateral Screening Mammogram ([facility]) No evidence of malignancy. Routine follow-up in 1 year recommended. 05/02/2020 Bilateral mammogram ([facility]) Abnormality in the retroareolar area of the right breast 01/22/2020 CT chest without contrast ([facility]) Linear and spiculated soft tissue density left upper lobe of unknown etiology. LABORATORY DATA: Hemoglobin (g/dL) Date Value 01/10/2023 11.6 08/10/2021 11.5 Hematocrit (%) Date Value 01/10/2023 36.6 08/10/2021 35.0 WBC (k/uL) Date Value 01/10/2023 6.36 08/10/2021 5.13 Platelet Count (k/uL) Date Value 01/10/2023 156 08/10/2021 133 ASSESSMENT/PLAN: 1. 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 Status post lingular sparing left upper lobectomy and mediastinal lymph nodedissection 06/13/2022. Pathology revealed the primary tumor was 2 cm, 0 of 15 lymph nodes involved,margins negative. 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 Postop it was elected not to treat with adjuvant chemotherapy or radiation therapy. Currently the patient has no evidence of disease. Most recent chest CT 01/10/2023 stable. At this time we will continue close observation. Repeat chest CT in 4 months, then return for follow-up. I suspect her chronic shortness of breath is related to COPD. She will follow-up with her high school tutor for further management. 2. 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 The patient presented with right breast pain and was found to have an abnormality in the retroareolar area of the right breast. A right breast breast biopsy obtained 05/25/2020 revealed a low-grade ER/HI positive DCIS. The patient also underwent a left breast biopsy on 06/06/2020 which was benign. Genetic testing revealed no evidence of deleterious mutations. 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 Adjuvant hormonal therapy with anastrozole was started July 2020. The patient received adjuvant radiation therapyto the right breast 08/08/2020 through 08/19/2020 (3000 cGy in 5 fractions). At this time she has no ev idence of disease. Plans are to continue anastrozole for 5 years total (July 2025). We we will schedule her next surveillance mammogram for March 2023. 3. Heart disease - ICD9: 429.9, ICD10: I51.9 History of coronary artery disease and aortic valve stenosis. Status post CABG, aortic valve replacement and cardiac ablation November 2019. History of paroxysmal atrial fibrillation - resolved after herinitial cardiac procedure in November 2019. Apparently the patient developed recurrent atrial fibrillation in August 2020 and underwent an additional ablation 01/04/2021. Currently on Eliquis and aspirin. Co ntinue management per PCP/cardiology. 4. 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 Currently on Eliquis and aspirin. Continue management per PCP/neurology. 5. PMR Diagnosed approximately 2018. Currently not on treatment. Continue management per rheumatology. Bryanna Adan MD [facility] History of Present illness Narrative* Jennifer Anderson RT(R) - 01/10/2023 10:45 AM EDT Radiology Service Progress Note PATIENT NAME: Jemima Bradford DATE OF SERVICE: January 10, 2023 TIME: 10:55 AM PATIENT IDENTITY VERIFICATION COMPLETED USING TWO (2) IDENTIFIERS: Name and Date of confirmedby patient verbally. FALL SCREENING: Has the patient had 2 falls in the last year or 1 fall with injury or currently using an Ambulatory Assistive Device (Walker, Cane, Wheelchair, Crutches, etc.)? No PATIENT GENDER DATA: Female. status: : No status: NO. PATIENT RELEVANT IMPLANT DATA REVIEWED: Not Applicable RADIOLOGY DEPARTMENT: CT; Exam(s) Completed: Chest PERIPHERAL IV DATA: Not applicable SIGNED BY: RT Michael(R) January 10, 2023 10:55 AM documented in this encounterK[facility]23 Evaluation note* Encounter Date Diagnosis Assessment Notes Treatment Notes Treatment Clinical Notes Nov, Irritable bowel syndrome with constipation (ICD-10 - K58.1) Nov, Bloating (ICD-10 - R14.0) Nov, Dysphagia (ICD-10 - R13.10) Nov, Vomiting (ICD-10 - R11.10) [facility] Other 06-09-2023 Evaluation note* Encounter Date Diagnosis Assessment Notes Treatment Notes Treatment Clinical Notes Nov, Acute pain of left knee (ICD-10 - M25.562) Nov, Primary osteoarthritis of left knee (ICD-10 - M17.12) Nov, Other 1. We had a alvarado g discussion with the patient today concerning their left knee osteoarthritis. The radiographs do show osteoarthritis of the knee. At this time the patient would like to avoid surgical intervention. Given her history with her right knee she wants to avoid a left knee replacement surgery as long as possible and hopefully forever. 2. Tylenol: Discussed taking Tylenol (acetaminophen). Recommended adjusting their dosing to 1000mg by mouth up to 3 times a day. 3. NSAIDs: Recommended avoiding oral anti-inflammatories secondary to her Eliquis use. Did recommend using Voltaren gel which she has at home 4-5 times a day if it bothers her. 4. Physical therapy: Discussed formal physical therapy and home regimen. Patient preferred no PT at this time. 5. Injections: Discussed injections as a treatment option. Would recommend foregoing an injection since she has not tried Tylenol or topical anti-inflammatory 6. Follow up as needed [facility] Other 06-09-2023 NoteIMPRESSION: Progressive moderate degenerative changes.[facility] Other 04-18-2023 NoteCARDIAC STRESS TEST Requesting Physician: Sharla De Oliveira M.D. Procedure Date:10/16/2022 INDICATION: Evaluation is for shortness of breath. Patient is undergoing a Lexiscan stress test. At baseline, patient was noted to have sinus bradycardia at 49 beats per minute with blood pressure of 136/72 mm/Hg. There was no evidence of any conduction system disease at baseline. With infusion of Lexiscan, heart rate did achieve a maximum rate of 68 beats per minute, with a blood pressure that jo to 150/76 mm/Hg. With infusion, there was no evidence of arrhythmias or AV block noted. INTERPRETATIONS: EKG showed no evidence of ischemia. Radiology will interpret the nuclear part of this study.[facility] 10-01-2022 History of Present illness Narrative* Bryanna Adan MD - 10/01/2022 6:47 AM EDT PATIENT NAME: Jemima Bradford DATE: 10/01/2022 PRIMARY CARE PHYSICIAN: Jasmyne Casillas CNP ([facility]) OTHER PHYSICIANS: Dr. Keene, Dr. Ferrari ( [facility] Cardiology, [place]), Dr. Pizarro, Dr. Arguelles,Dr. Shaniqua Ellsworth (Pulmonary, [place]), Dr. Mitzi Amaral Portions of this encounter note have been copied from my note from 07/03/2022 and has been updated where appropriate, and reflect my current medical decision making from today. CC: This is an 82 year old female with recently diagnosed lung cancer, seen for scheduled follow-up. INTERIM HISTORY: Since the patient's last visit here she underwent a follow-up chest CT, which revealed postop findings but no evidence of disease. She continues to have intermittent shortness of breath and left chest wall pain, slowly improving. Other than the above she feels fairly well with no new complaints today. MEDICATIONS: gabapentin (NEURONTIN) 300 mg capsule Take 1 capsule by mouth three times daily for 60 days. metoprolol tartrate, short acting, (LOPRESSOR) 25 mg tablet Take 1/2 tablet by mouth twice daily. amiodarone (PACERONE) 200 mg tablet Take 2 tablets by mouth twice daily for 5 days, THEN 1 tablet twice daily for 5 days, THEN 1 tablet once daily. anastrozole (ARIMIDEX) 1 mg tablet Take 1 tablet by mouth once daily. levothyroxine (SYNTHROID) 50 mcg tablet levothyroxine 50 mcg tablet TAKE 1 TABLET BY MOUTH DAILY FOR HYPOTHYROIDISM apixaban (ELIQUIS) 5 mg tab(s) Eliquis 5 mg tablet Take 1 tablet twice a day by oral route for 90 days. calcium carbonate (CALTRATE) 600 mg calcium (1,500 mg) tab 600 mg. melatonin 10 mg tab 10 mg. aspirin, enteric coated (ASPIRIN, ENTERIC COATED) 81 mg EC tablet Take 81 mg by mouth once daily. rosuvastatin (CRESTOR) 40 mg tablet Take 40 mg by mouth once daily. furosemide (LASIX) 40 mg tablet Take 40 mg by mouth once daily. spironolactone (ALDACTONE) 25 mg tablet Take 25 mg by mouth once daily. esomeprazole (NEXIUM) 20 mg capsule Take 20 mg by mouth as directed. Twice per week (Patient not taking: Reported on 07/13/2022) nitroglycerin sublingual (NITROQUICK) 0.4 mg SL tablet Dissolve 1 tablet under the tongue every 5 minutes as needed. COQ10, UBIQUINOL, ORAL Take 1 tablet by mouth once daily. Chromium Picolinate 500 mcg cap Take 1 tablet by mouth once daily. MAGNESIUM ORAL Take 1 tablet by mouth once daily. 600mg ZAFIRLUKAST 20 mg tablet Take 20 mg by mouth once daily. 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 Aortic valve stenosis mild Arthritis Asthma controlled no inhalers Coronary artery disease Hypercholesteremia Hypertension Polymyalgia rheumatica (HCC) PAST SURGICAL HISTORY: PAST SURGICAL HISTORY Procedure Laterality Date APPENDECTOMY 07/01/1978 ARTHROSCOPY KNEE MEDIAL RELEASE 2002,2010 rt & Lt knee ARTHRP KNE CONDYLE&PLATU MEDIAL&LAT COMPARTMENTS Right 07/01/2013 right x2 BREAST LUMPECTOMY HX BUNIONECTOMY, LAPIDUS-TYPE 07/01/2010 rt toe CHOLECYSTECTOMY 07/01/2005 COLONOSCOPY & POLYPECTOMY 2004, 2005, 2009 x 3 CYSTO LASER TX URETERAL CALC 07/01/2009 stent placement CYSTO W/RETROGRADE x 6 D&C (INCOMPLETE AB), ANY TRIMESTER 07/01/1974 EXCISE EXCESS SKIN TISSUE,ABDOMEN 07/01/1994 Abdominalplasty LITHOTRIPSY PROC UNILATERAL 07/01/1985 rt kidney PAST SURGICAL HISTORY OF 12/03/2019 CABG 1v, cryomaze and AVr REMV CATARACT EXTRACAP,INSERT LENS STENT PLACEMENT 07/01/2003 LAD TONSILLECTOMY HX as child REVIEW OF SYSTEMS: GENERAL: No weight loss, malaise or fevers. HEENT: Negative for frequent or significant headaches, No changes in hearing or vision, no nose bleeds or other nasal problems RESPIRATORY: Negative for cough, wheezing or shortness of breath. CARDIOVASCULAR: Negative for chest pain, leg swelling or palpitations. GI: Negative for abdominal discomfort, blood in stools or black stools or change in bowel habits : No history of dysuria, frequency or incontinence MUSCULOSKELETAL: Negative for: joint pain or swelling, back pain and muscle pain SKIN: Negative for lesions, rash, and itching. HEMATOLOGY/LYMPHOLOGY: Negative for prolonged bleeding, bruising easily or swollen nodes. NEURO: No history of headaches, syncope, paralysis, seizures or tremors PHYSICAL EXAM: Vitals: BP 144/53 Pulse (!) 52 Temp 36.6 C (97.8 F) (Temporal) Resp 20 SpO2 99% General appearance: well appearing, alert, in no acute distress, well-hydrated, well nourished Skin: skin color, texture, turgor normal, no suspicious rashes or lesions Head: normal Eyes: Anicteric sclera. Pupils are equally round and reactive to light. Extraocular movements are intact. Ears: negative findings: external ears normal to inspection and palpation Oropharynx: negative Neck: Supple, no adenopathy; thyroid symmetric, normal size Lymph Nodes: No Submandibular, cervical, supraclavicular, axillary, or inguinal lymphadenopathy present Breast: Not examined today Back: no tenderness to palpation Lungs: clear to auscultation, no wheezing or rhonchi Heart: Negative. RRR without murmur, gallop, or rubs. No ectopy. Abdomen: Normal abdominal exam, Abdomen soft, non-tender. Bowel sounds normal. No masses, organomegaly Rectal: Not done Extremities: Extremities normal. No deformities, edema, or skin discoloration. Good capillary refill. Musculoskeletal: No joint swelling, deformity, or tenderness. Peripheral pulses: Normal PATHOLOGY: 06/13/2022 A. Lymph node, level 9, excision: - Negative for tumor (0/1). B. Lymph node, 12 central, excision: - Negative for tumor (0/1). C. Lymph node, 11 anterior, excision: - Negative for tumor (0/1). D. Lymph node, 11 posterior, excision: - Negative for tumor (0/1). E. Lymph node, another 11 posterior, excision: - Negative for tumor (0/1). F. Lymph node, 10, excision: - Negative for tumor (0/1). G. Lymph node, 5, excision: - Negative for tumor (0/1). H. Lymph node, 7, excision: - Negative for tumor (0/1). I. Lung, left upper lobe, lingula-sparing left upper lobectomy: - Adenocarcinoma (2 cm), micropapillary predominant (70%), with additional papillary (20%), and acinar (10%) patterns (See synoptic template). - Seven hilar/peribronchial lymph nodes, negative for tumor (0/7). - Margins negative. ALK (D5F3) IMMUNOHISTOCHEMISTRY ASSAY Results: Positive Immunohistochemistry for PD-L1 expression Tumor Cells Positive: 70% ROS1 Rearrangement 0% RET Rearrangement 0% BRAF - No variant detected [Reference Sequence: ([id number])]. EGFR - No variant detected [Reference Sequence: ([id number])]. HER2 (ERBB2) - No variant detected [Reference Sequence: ([id number])]. KRAS - No variant detected [Reference Sequence: ([id number])]. MET - No variant detected [Reference Sequence: ([id number])]. 04/25/2022 CT directed biopsy left upper lung mass ([facility]) Adenocarcinoma consistent with lung primary 06/21/2020 Right breast lumpectomy ([facility]) Ductal carcinoma in situ, low nuclear grade, cribriform and solid types, 1.3 cm in greatest dimension. Posterior margin is within 1 mm from DCIS. ER 99%, HI 99% 06/06/2020 Left breast biopsy ([facility]) Columnar cell change/hyperplasia. Usual ductal hyperplasia. 05/25/2020 Right breast biopsy ([facility]) Ductal carcinoma in situ, nuclear grade 1. ER positive (99%, HI positive (99%) RADIOLOGY/OTHER STUDIES: 07/12/2022 CT chest IMPRESSION: 1. Since 06/19/2022, removal of left anterior pleural catheter and left basilar chest tubes. Increase in size of anterior pleural effusion within the lobectomy cavity and left basilar small pleural effusion. Resolution of previously seen pneumothorax component. 2. Stable regions of atelectasis/scarring involving the left lung and anterior right middle lobe. No new airspace consolidation. 3. Unchanged indeterminate 0.7 cm right upper lobe pulmonary nodule. Continued attention on subsequent studies is suggested. 4. No progressive lymphadenopathy. 05/02/2022 Brain MRI ([facility]) Brain MRI within limits of normal. No signs of intracranial mass or abnormal enhancement. 04/11/2022 PET scan ([facility]) Nodular opacity in the left upper lobe demonstrates moderate uptake. No signs of distant metastases. 04/05/2022 Bilateral diagnostic mammogram/right breast ultrasound ([facility]) Benign, no evidence of malignancy. Normal interval follow-up at 12 months. 04/04/2022 High-resolution chest CT ([facility]) Previous linear scarlike opacity left upper lobe measuring 11 x 8 mm in December 2019 is now irregularly lobulated and measures 1.5 x 1.3 cm and is suspicious. PET scan or biopsy recommended. 06/08/2021 Diagnostic right mammogram and right breast ultrasound ([facility]) 2.2 cm complex fluid collection in the lumpectomy bed at the 5 o'clock position. Could be a postoperative seroma, old hematoma, or abscess. No finding to suggest malignancy in the right breast. 05/31/2021 Bone density DEXA ([facility]) Increasing osteopenia in the hips. Significant loss of bone in the lumbar spine, while remaining within normal limits 02/02/2021 Bilateral Screening Mammogram ([facility]) No evidence of malignancy. Routine follow-up in 1 year recommended. 05/02/2020 Bilateral mammogram ([facility]) Abnormality in the retroareolar area of the right breast 01/22/2020 CT chest without contrast ([facility]) Linear and spiculated soft tissue density left upper lobe of unknown etiology. LABORATORY DATA: Hemoglobin (g/dL) Date Value 10/01/2022 12.3 08/10/2021 11.5 Hematocrit (%) Date Value 10/01/2022 39.6 08/10/2021 35.0 WBC (k/uL) Date Value 10/01/2022 6.20 08/10/2021 5.13 Platelet Count (k/uL) Date Value 10/01/2022 155 08/10/2021 133 ASSESSMENT/PLAN: 1. 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 Status post lingular sparing left upper lobectomy and mediastinal lymph nodedissection 06/13/2022. Pathology revealed the primary tumor was 2 cm, 0 of 15 lymph nodes involved,margins negative. 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 Postop it was elected not to treat with adjuvant chemotherapy or radiation therapy. Currently the patient has no evidence of disease. She remains symptomatic with postop shortness of breath and chest wall pain. At this time we will continue close follow-up. I will see her back in 6 weeks with labs. Assuming she remains stable we will restage again at 6 months (December 2022). The patient is aware that if her disease relapses with systemic metastases treatment option includean ALK inhibitor +/- immunotherapy. 2. 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 The patient presented with right breast pain and was found to have an abnormality in the retroareolar area of the right breast. A right breast breast biopsy obtained 05/25/2020 revealed a low-grade ER/HI positive DCIS. The patient also underwent a left breast biopsy on 06/06/2020 which was benign. Genetic testing revealed no evidence of deleterious mutations. 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 Adjuvant hormonal therapy with anastrozole was started July 2020. The patient received adjuvant radiation therapyto the right breast 08/08/2020 through 08/19/2020 (3000 cGy in 5 fractions). At this time she has no ev idence of disease. Plans are to continue anastrozole for 5 years total (July 2025). She will undergo a surveillance mammogram yearly. 3. Heart disease - ICD9: 429.9, ICD10: I51.9 History of coronary artery disease and aortic valve stenosis. Status post CABG, aortic valve replacement and cardiac ablation November 2019. History of paroxysmal atrial fibrillation - resolved after herinitial cardiac procedure in November 2019. Apparently the patient developed recurrent atrial fibrillation in August 2020 and underwent an additional ablation 01/04/2021. Currently on Eliquis and aspirin. Co ntinue management per PCP/cardiology. 4. 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 Currently on Eliquis and aspirin. Continue management per PCP/neurology. 5. PMR Diagnosed approximately 2018, on steroids since. Currently prednisone 1 mg daily. Continue management per rheumatology. Bryanna Adan MD CC: Dr. Shaniqua Ellsworth (Pulmonary, [place]) [facility] Evaluation note* Encounter Date Diagnosis Assessment Notes Treatment Notes Treatment Clinical Notes Aug, Irritable bowel syndrome with constipation (ICD-10 - K58.1) Samples of Linzess 72 mcg given to patient Samples of IBGard given to patient Rto 3 months Aug, Bloating (ICD-10 - R14.0) [facility] SPINE Other 01-13-2023 History of Present illness Narrative* Kaity Amaral - 07/13/2022 12:08 PM EST Faxed referral [facility] for [facility] pulmonary rehabilitation. * Lior Whitfield PA-C - 07/13/2022 11:01 AM EST Images from the original note were not included. OUTPATIENT FOLLOW UP CARDIOTHORACIC SURGERY NAME: Jemima Bradford DATE OF VISIT: 07/13/22 HISTORY OF PRESENT ILLNESS: This is a 82 year old female who returns for routine follow up today. Please see previous notes for details. Briefly, she is status post left robotic-assisted anatomic lingular sparing upper lobectomy: S1, S2, S3; Mediastinal lymph node dissection, nodes: 5, 7, 9, 10, 11and 12; Cryoanalgesia procedure, interspaces 5 - 7 on 06/13/22 for a Left upper lobe adenocarcinoma. Final pathology demonstrated: FINAL DIAGNOSIS A. Lymph node, level 9, excision: - Negative for tumor (0/1). B. Lymph node, 12 central, excision: - Negative for tumor (0/1). C. Lymph node, 11 anterior, excision: - Negative for tumor (0/1). D. Lymph node, 11 posterior, excision: - Negative for tumor (0/1). E. Lymph node, another 11 posterior, excision: - Negative for tumor (0/1). F. Lymph node, 10, excision: - Negative for tumor (0/1). G. Lymph node, 5, excision: - Negative for tumor (0/1). H. Lymph node, 7, excision: - Negative for tumor (0/1). I. Lung, left upper lobe, lingula-sparing left upper lobectomy: - Adenocarcinoma (2 cm), micropapillary predominant (70%), with additional papillary (20%), and acinar (10%) patterns (See synoptic template). - Seven hilar/peribronchial lymph nodes, negative for tumor (0/7). - Margins negative. T1b N0 clinical stage IA2 Her hospital course was complicated by development of a left apical hydropneumothorax after operation. A small bore chest drain was placed by interventional radiology. The patient then developed a fluid collection in this space thought to represent clot/retained hemothorax. The patient also had atrial fibrillation requiring amiodarone. She was continued on Eliquis at the time of discharge. Today, she expressed concern over her continued dyspnea on exertion. This has not worsened since the time of discharge but also has not improved. She walks on her treadmill for exercise but is only able to sustain about 4 minutes before needing to rest. She has a pulse oximeter at home and reports her SpO2 is 94- 97%. She feels very fatigued and drowsy in general. She denies any other issues or problems since hospital discharge. Specifically, she denies any productive cough, chest pain, fevers, nausea, vomiting, wound erythema or wound drainage. She continues to have L flank pain which is controlled with intermittent oxycodone use. She continues to take gabapentin at 300mg PO BID. She is moving her bowels regularly. MEDICATIONS: As noted in electronic medical record. Current Outpatient Medications Medication Instructions amiodarone (PACERONE) 200 mg tablet Take 2 tablets by mouth twice daily for 5 days, THEN 1 tablet twice daily for 5 days, THEN 1 tablet once daily. anastrozole (ARIMIDEX) 1 mg, ORAL, DAILY apixaban (ELIQUIS) 5 mg tab(s) Eliquis 5 mg tablet Take 1 tablet twice a day by oral route for 90 days. aspirin, enteric coated (ASPIRIN, ENTERIC COATED) 81 mg, ORAL, DAILY calcium carbonate (CALTRATE) 600 mg Chromium Picolinate 500 mcg cap 1 tablet, DAILY COQ10, UBIQUINOL, ORAL 1 tablet, DAILY esomeprazole (NEXIUM) 20 mg, DIRECTED furosemide (LASIX) 40 mg, ORAL, DAILY gabapentin (NEURONTIN) 300 mg, ORAL, 3 TIMES DAILY levothyroxine (SYNTHROID) 50 mcg tablet levothyroxine 50 mcg tablet TAKE 1 TABLET BY MOUTH DAILY FOR HYPOTHYROIDISM MAGNESIUM ORAL 1 tablet, ORAL, DAILY, 600mg melatonin 10 mg metoprolol tartrate, short acting, (LOPRESSOR) 25 mg tablet Take 1/2 tablet by mouth twice daily. nitroglycerin sublingual (NITROQUICK) 0.4 mg, SUBLINGUAL, EVERY 5 MINUTES NEEDED rosuvastatin (CRESTOR) 40 mg, ORAL, DAILY spironolactone (ALDACTONE) 25 mg, ORAL, DAILY zafirlukast (ACCOLATE) 20 mg, ORAL, DAILY ALLERGIES: As noted in electronic medical record. 07/13/22 1051 BP: 131/56 Pulse: (!) 50 SpO2: 96% Weight: 78.9 kg (174 lb) Height: 165.1 cm (5' 5 ) PHYSICAL EXAMINATION: On exam, she is a well developed, well nourished, ambulatory female in no apparent distress. Vital signs are stable. she is breathing comfortably on room air with a saturation of 96% . Lung sounds are diminished at the left apex, CTA otherwise. Heart rate regular without apprec iable murmur, rub or gallop. She is bradycardic. Her left sided surgical incisions are healing well. Extremities are warm without peripheral edema. IMAGING: CT Chest 07/12/22 IMPRESSION: 1. Since 06/19/2022, removal of left anterior pleural catheter and left basilar chest tubes. Increase in size of anterior pleural effusion within the lobectomy cavity and left basilar small pleural effusion. Resolution of previously seen pneumothorax component. 2. Stable regions of atelectasis/scarring involving the left lung and anterior right middle lobe. No new airspace consolidation. 3. Unchanged indeterminate 0.7 cm right upper lobe pulmonary nodule. Continued attention on subsequent studies is suggested. 4. No progressive lymphadenopathy. IMPRESSION & PLAN: Ms Jemima Bradford is a 82 year old female status post left robotic-assisted anatomic lingular sparing upper lobectomy: S1, S2, S3; Mediastinal lymph node dissection, nodes: 5, 7, 9, 10, 11 and 12; Cryoanalgesia procedure, interspaces 5 - 7 on 06/13/22 for a clinical stage IA2 left upper lobe adenocarcinoma. Her chief complaint is ROGEL which should improve with adequate pulmonary rehabilitation which will be arranged for her. She likely has retained hemothorax at the left apex of her chest whichis unlikely amenable to adequate drainage from thoracentesis. -Follow up with Thoracic Surgery PRN -Continue follow up with local cash posting specialist. OK to d/c amiodarone upon completion of rx -Continue follow up with Bryanna Adan MD Oncology -Pulmonary rehabilitation at [facility] in [place]. Our office has reached out to arrange. -Titrate gabapentin to 300mg PO at bedtime for 4 days, then ok to discontinue if no increase in pain. Lior Whitfield PA-C Thoracic Surgery [id number] DATE: July 13, 2022 TIME: 12:40 PM documented [facility] History of Present illness Narrative* Jennifer Anderson, RT(R) - 07/12/2022 2:00 PM EST Radiology Service Progress Note PATIENT NAME: Jemima Bradford DATE OF SERVICE: July 12, 2022 TIME: 2:23 PM PATIENT IDENTITY VERIFICATION COMPLETED USING TWO (2) IDENTIFIERS: Name and Date of confirmedby patient verbally. FALL SCREENING: Has the patient had 2 falls in the last year or 1 fall with injury or currently using an Ambulatory Assistive Device (Walker, Cane, Wheelchair, Crutches, etc.)? No PATIENT GENDER DATA: Female. status: : No status: NO. PATIENT RELEVANT IMPLANT DATA REVIEWED: Not Applicable RADIOLOGY DEPARTMENT: CT; Exam(s) Completed: Chest PERIPHERAL IV DATA: Not applicable SIGNED BY: RT Michael(R) July 12, 2022 2:23 PM documented in this [facility] History of Present illness Narrative* Bryanna Adan MD - 07/03/2022 7:51 AM EST PATIENT NAME: Jemima Bradford DATE: 07/03/2022 PRIMARY CARE PHYSICIAN: Jasmyne Casillas CNP ([facility]) OTHER PHYSICIANS: Dr. Keene, Dr. Ferrari ( [facility] Cardiology, [place]), Dr. Pizarro, Dr. Arguelles,Dr. Shaniqua Ellsworth (Pulmonary, [place]), Dr. Mitzi Amaral Portions of this encounter note have been copied from my note from 05/10/2022 and has been updated where appropriate, and reflect my current medical decision making from today. CC: This is an 82 year old female with recently diagnosed lung cancer, seen for scheduled follow-up. INTERIM HISTORY: Since the patient's last visit here she underwent thoracic surgery per Dr. Amaral on 06/13/2022 with a lingular sparing left upper lobectomy and mediastinal lymph node dissection. Sheunderwent a complete resection, and pathology revealed stage I disease (tumor 2 cm, all lymph nodesnegative). The patient's post-operative course was significant for the development of a left apicalhydropneumothorax after operation. A small bore chest drain was placed by interventional radiology.The patient then developed a fluid collection in this space thought to represent clot/retained hemothorax. The patient also developed atrial fibrillation requiring medication to convert/control her rate. She was discharged on 06/24/2022. Since discharge she has had no significant medical changes. She still has discomfort in her left upper back, slowly improving. She has persistent dyspnea on exertion, slowly improving. No significantcough. No fevers or signs of infection. MEDICATIONS: gabapentin (NEURONTIN) 300 mg capsule Take 1 capsule by mouth three times daily for 60 days. metoprolol tartrate, short acting, (LOPRESSOR) 25 mg tablet Take 1/2 tablet by mouth twice daily. amiodarone (PACERONE) 200 mg tablet Take 2 tablets by mouth twice daily for 5 days, THEN 1 tablet twice daily for 5 days, THEN 1 tablet once daily. anastrozole (ARIMIDEX) 1 mg tablet Take 1 tablet by mouth once daily. levothyroxine (SYNTHROID) 50 mcg tablet levothyroxine 50 mcg tablet TAKE 1 TABLET BY MOUTH DAILY FOR HYPOTHYROIDISM apixaban (ELIQUIS) 5 mg tab(s) Eliquis 5 mg tablet Take 1 tablet twice a day by oral route for 90 days. calcium carbonate (CALTRATE) 600 mg calcium (1,500 mg) tab 600 mg. melatonin 10 mg tab 10 mg. aspirin, enteric coated (ASPIRIN, ENTERIC COATED) 81 mg EC tablet Take 81 mg by mouth once daily. rosuvastatin (CRESTOR) 40 mg tablet Take 40 mg by mouth once daily. furosemide (LASIX) 40 mg tablet Take 40 mg by mouth once daily. spironolactone (ALDACTONE) 25 mg tablet Take 25 mg by mouth once daily. esomeprazole (NEXIUM) 20 mg capsule Take 20 mg by mouth as directed. Twice per week nitroglycerin sublingual (NITROQUICK) 0.4 mg SL tablet Dissolve 1 tablet under the tongue every 5 minutes as needed. COQ10, UBIQUINOL, ORAL Take 1 tablet by mouth once daily. Chromium Picolinate 500 mcg cap Take 1 tablet by mouth once daily. MAGNESIUM ORAL Take 1 tablet by mouth once daily. 600mg ZAFIRLUKAST 20 mg tablet Take 20 mg by mouth once daily. 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 Aortic valve stenosis mild Arthritis Asthma controlled no inhalers Coronary artery disease Hypercholesteremia Hypertension Polymyalgia rheumatica (HCC) PAST SURGICAL HISTORY: PAST SURGICAL HISTORY Procedure Laterality Date APPENDECTOMY 07/01/1978 ARTHROSCOPY KNEE MEDIAL RELEASE 2002,2010 rt & Lt knee ARTHRP KNE CONDYLE&PLATU MEDIAL&LAT COMPARTMENTS Right 07/01/2013 right x2 BREAST LUMPECTOMY HX BUNIONECTOMY, LAPIDUS-TYPE 07/01/2010 rt toe CHOLECYSTECTOMY 07/01/2005 COLONOSCOPY & POLYPECTOMY 2004, 2005, 2009 x 3 CYSTO LASER TX URETERAL CALC 07/01/2009 stent placement CYSTO W/RETROGRADE x 6 D&C (INCOMPLETE AB), ANY TRIMESTER 07/01/1974 EXCISE EXCESS SKIN TISSUE,ABDOMEN 07/01/1994 Abdominalplasty LITHOTRIPSY PROC UNILATERAL 07/01/1985 rt kidney PAST SURGICAL HISTORY OF 12/03/2019 CABG 1v, cryomaze and AVr REMV CATARACT EXTRACAP,INSERT LENS STENT PLACEMENT 07/01/2003 LAD TONSILLECTOMY HX as child REVIEW OF SYSTEMS: GENERAL: No weight loss, malaise or fevers. HEENT: Negative for frequent or significant headaches, No changes in hearing or vision, no nose bleeds or other nasal problems RESPIRATORY: Negative for cough, wheezing or shortness of breath. CARDIOVASCULAR: Negative for chest pain, leg swelling or palpitations. GI: Negative for abdominal discomfort, blood in stools or black stools or change in bowel habits : No history of dysuria, frequency or incontinence MUSCULOSKELETAL: Negative for: joint pain or swelling, back pain and muscle pain SKIN: Negative for lesions, rash, and itching. HEMATOLOGY/LYMPHOLOGY: Negative for prolonged bleeding, bruising easily or swollen nodes. NEURO: No history of headaches, syncope, paralysis, seizures or tremors PHYSICAL EXAM: Vitals: BP (!) 113/44 Pulse (!) 55 Temp 36.5 C (97.7 F) (Temporal) Resp 16 Ht 162.6 cm (5' 4.02 ) Wt 79.2 kg (174 lb 9.6 oz) SpO2 97% BMI 29.96 kg/m General appearance: well appearing, alert, in no acute distress, well-hydrated, well nourished Skin: skin color, texture, turgor normal, no suspicious rashes or lesions Head: normal Eyes: Anicteric sclera. Pupils are equally round and reactive to light. Extraocular movements are intact. Ears: negative findings: external ears normal to inspection and palpation Oropharynx: negative Neck: Supple, no adenopathy; thyroid symmetric, normal size Lymph Nodes: No Submandibular, cervical, supraclavicular, axillary, or inguinal lymphadenopathy present Breast: Not examined today Back: no tenderness to palpation Lungs: clear to auscultation, no wheezing or rhonchi Heart: Negative. RRR without murmur, gallop, or rubs. No ectopy. Abdomen: Normal abdominal exam, Abdomen soft, non-tender. Bowel sounds normal. No masses, organomegaly Rectal: Not done Extremities: Extremities normal. No deformities, edema, or skin discoloration. Good capillary refill. Musculoskeletal: No joint swelling, deformity, or tenderness. Peripheral pulses: Normal PATHOLOGY: 06/13/2022 A. Lymph node, level 9, excision: - Negative for tumor (0/1). B. Lymph node, 12 central, excision: - Negative for tumor (0/1). C. Lymph node, 11 anterior, excision: - Negative for tumor (0/1). D. Lymph node, 11 posterior, excision: - Negative for tumor (0/1). E. Lymph node, another 11 posterior, excision: - Negative for tumor (0/1). F. Lymph node, 10, excision: - Negative for tumor (0/1). G. Lymph node, 5, excision: - Negative for tumor (0/1). H. Lymph node, 7, excision: - Negative for tumor (0/1). I. Lung, left upper lobe, lingula-sparing left upper lobectomy: - Adenocarcinoma (2 cm), micropapillary predominant (70%), with additional papillary (20%), and acinar (10%) patterns (See synoptic template). - Seven hilar/peribronchial lymph nodes, negative for tumor (0/7). - Margins negative. ALK (D5F3) IMMUNOHISTOCHEMISTRY ASSAY Results: Positive Immunohistochemistry for PD-L1 expression Tumor Cells Positive: 70% ROS1 Rearrangement 0% RET Rearrangement 0% BRAF - No variant detected [Reference Sequence: ([id number])]. EGFR - No variant detected [Reference Sequence: ([id number])]. HER2 (ERBB2) - No variant detected [Reference Sequence: ([id number])]. KRAS - No variant detected [Reference Sequence: ([id number])]. MET - No variant detected [Reference Sequence: ([id number])]. 04/25/2022 CT directed biopsy left upper lung mass ([facility]) Adenocarcinoma consistent with lung primary 06/21/2020 Right breast lumpectomy ([facility]) Ductal carcinoma in situ, low nuclear grade, cribriform and solid types, 1.3 cm in greatest dimension. Posterior margin is within 1 mm from DCIS. ER 99%, HI 99% 06/06/2020 Left breast biopsy ([facility]) Columnar cell change/hyperplasia. Usual ductal hyperplasia. 05/25/2020 Right breast biopsy ([facility]) Ductal carcinoma in situ, nuclear grade 1. ER positive (99%, HI positive (99%) RADIOLOGY/OTHER STUDIES: 05/02/2022 Brain MRI ([facility]) Brain MRI within limits of normal. No signs of intracranial mass or abnormal enhancement. 04/11/2022 PET scan ([facility]) Nodular opacity in the left upper lobe demonstrates moderate uptake. No signs of distant metastases. 04/05/2022 Bilateral diagnostic mammogram/right breast ultrasound ([facility]) Benign, no evidence of malignancy. Normal interval follow-up at 12 months. 04/04/2022 High-resolution chest CT ([facility]) Previous linear scarlike opacity left upper lobe measuring 11 x 8 mm in December 2019 is now irregularly lobulated and measures 1.5 x 1.3 cm and is suspicious. PET scan or biopsy recommended. 06/08/2021 Diagnostic right mammogram and right breast ultrasound ([facility]) 2.2 cm complex fluid collection in the lumpectomy bed at the 5 o'clock position. Could be a postoperative seroma, old hematoma, or abscess. No finding to suggest malignancy in the right breast. 05/31/2021 Bone density DEXA ([facility]) Increasing osteopenia in the hips. Significant loss of bone in the lumbar spine, while remaining within normal limits 02/02/2021 Bilateral Screening Mammogram ([facility]) No evidence of malignancy. Routine follow-up in 1 year recommended. 05/02/2020 Bilateral mammogram ([facility]) Abnormality in the retroareolar area of the right breast 01/22/2020 CT chest without contrast ([facility]) Linear and spiculated soft tissue density left upper lobe of unknown etiology. LABORATORY DATA: Hemoglobin (g/dL) Date Value 07/03/2022 9.6 08/10/2021 11.5 Hematocrit (%) Date Value 07/03/2022 31.2 08/10/2021 35.0 WBC (k/uL) Date Value 07/03/2022 7.22 08/10/2021 5.13 Platelet Count (k/uL) Date Value 07/03/2022 436 08/10/2021 133 ASSESSMENT/PLAN: 1. 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 Status post lingular sparing left upper lobectomy and mediastinal lymph nodedissection 06/13/2022. Pathology revealed the primary tumor was 2 cm, 0 of 15 lymph nodes involved,margins negative. 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 Currently the patient has postop pain and dyspnea on exertion with CT evidence of fluid collection/hematoma in the left upper thorax. Options for management were discussed. At this time there are no indications for adjuvant treatmentincluding chemotherapy, radiation therapy, or targeted treatments. Recommendations would be routinepostop follow-up to include examination and labs every [address] scans every 6 months the first year. For follow-up of her postop changes she is scheduled undergo a repeat chest CT later this month, she will then follow-up with thoracic surgery. I will see her back in 3 months for follow-up. The patient is aware that if her disease relapses with systemic metastases treatment option includean ALK inhibitor +/- immunotherapy. 2. 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 The patient presented with right breast pain and was found to have an abnormality in the retroareolar area of the right breast. A right breast breast biopsy obtained 05/25/2020 revealed a low-grade ER/HI positive DCIS. The patient also underwent a left breast biopsy on 06/06/2020 which was benign. Genetic testing revealed no evidence of deleterious mutations. 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 Adjuvant hormonal therapy with anastrozole was started July 2020. The patient received adjuvant radiation therapyto the right breast 08/08/2020 through 08/19/2020 (3000 cGy in 5 fractions). At this time she has no ev idence of disease. Plans are to continue anastrozole for 5 years total (July 2025). She will undergo a surveillance mammogram yearly. 3. Heart disease - ICD9: 429.9, ICD10: I51.9 History of coronary artery disease and aortic valve stenosis. Status post CABG, aortic valve replacement and cardiac ablation November 2019. History of paroxysmal atrial fibrillation - resolved after herinitial cardiac procedure in November 2019. Apparently the patient developed recurrent atrial fibrillation in August 2020 and underwent an additional ablation 01/04/2021. Currently on Eliquis and aspirin. Co ntinue management per PCP/cardiology. 4. 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 Currently on Eliquis and aspirin. Continue management per PCP/neurology. 5. PMR Diagnosed approximately 2018, on steroids since. Currently prednisone 1 mg daily. Continue management per rheumatology. Bryanna Adan MD CC: Dr. Shaniqua Ellsworth (Pulmonary, [place] [place]) [facility] Miscellaneous Notes* Telephone Encounter - Pratibha Sheppard - 06/26/2022 10:46 AM EST Called patient to confirm the CT appointment scheduled for 07/12. She asked when she will be able tostart using her CPAP machine again following her procedure. Please advise and I will call the patient. documented in [facility]-2022 NoteHNO ID: [id number] Author: Soledad Moss ([employer]) Service: Pharmacy Author Type: ? Type: Plan of Care Filed: 06/28/2022 12:27 PM Note Text: PHARMACY BEDSIDE DELIVERY SERVICE Patient Name: Jemima Bradford The marked outpatient medications were filled and delivered bedside. Medication List START taking these medications amiodarone 200 mg tabletX Commonly known as: PACERONE Take 2 tablets by mouth twice daily for 5 days, THEN 1 tablet twice daily for 5 days, THEN 1 tablet once daily. Start taking on: June 22, 2022 doxycycline hyclate 100 mg capsule Commonly known as: VIBRAMYCIN Take 1 capsule by mouth twice daily for 5 days. gabapentin 300 mg capsuleX Commonly known as: NEURONTIN Take 1 capsule by mouth three times daily for 60 days. oxyCODONE IR 5 mg immediate release tabletX Commonly known as: ROXICODONE Take 1 tablet by mouth every 6 hours as needed for pain for up to 7 days. CHANGE how you take these medications metoprolol tartrate (short acting) 25 mg tablet Commonly known as: LOPRESSOR Take 1/2 tablet by mouth twice daily. What changed: how much to take CONTINUE taking these medications anastrozole 1 mg tablet Commonly known as: ARIMIDEX Take 1 tablet by mouth once daily. apixaban 5 mg tab(s) Commonly known as: ELIQUIS aspirin, enteric coated 81 mg EC tablet Commonly known as: ASPIRIN, ENTERIC COATED calcium carbonate 600 mg calcium (1,500 mg) Tab Commonly known as: CALTRATE Chromium Picolinate 500 mcg Cap COQ10 (UBIQUINOL) ORAL esomeprazole 20 mg capsule Commonly known as: NexIUM furosemide 40 mg tablet Commonly known as: LASIX levothyroxine 50 mcg tablet Commonly known as: SYNTHROID MAGNESIUM ORAL melatonin 10 mg Tab nitroglycerin sublingual 0.4 mg SL tablet Commonly known as: NITROQUICK Dissolve 1 tablet under the tongue every 5 minutes as needed. rosuvastatin 40 mg tablet Commonly known as: CRESTOR spironolactone 25 mg tablet Commonly known as: ALDACTONE zafirlukast 20 mg tablet Commonly known as: ACCOLATE You might also be taking other medications not listed above. If you have questions about any of your other medications, talk to the person who prescribed them or your Primary Care Provider. Soledad Moss ([employer]) PAGER: [phone] June 22, 2022 6:11 [facility]12-24-2022 NoteHNO ID: [id number] Author: Louis العلي PA-C Service: Thoracic Surgery Author Type: Physician Semiconductor Processing Technician Type: Progress Notes Filed: 06/23/2022 11:26 AM Note Text: [facility] POST[facility] PROGRESS NOTE Day of Surgery:06/19/2022 S/P SURGERY: Left robotic-assisted pneumolysis. Left robotic-assisted anatomic lingular sparring upper lobectomy: S1, S2, S3. Mediastinal lymph node dissection, nodes: 5, 7, 9, 10, 11 and 12. Cryoanalgesia procedure, interspaces 5 - 7. (Total time 10 minutes) Left regional intercostal nerve block, interspaces 5 - 7. (Marcaine) Chest tube placement x 1 (#24-[facility] chest tube). INTERVAL EVENTS / PERTINENT ROS: POD#1 - PITO overnight. Patient on 2L NC. +flatus, -BM. -[address] output since OR. Will continue chest tube to suction. No air leak. Patient complaining of uncontrolled post op pain. Will consult pain management. POD#2 - Patient with urinary retention overnight. Straight cath with 900 cc removed. Patient has since urinated on own. CT output -280 cc serosang output. No air leak present. Pain better controlled since pain management. POD#3- Patient placed to water seal yesterday. Unfortunately, patient accumulated fluid in left chest. Patient continues NC. Denies flatus or BM. Patient receiving Milk of Mag. Patient placed back to suction this AM after discussion with Dr. Amaral. POD#4 - Patient continues chest tubes to suction. -310 cc sersang output in last 24 hours. Tolerating full diet. Ambulating with assistance and walker. Currently on RA sitting in chair. Discussed CXR POD#5 - CXR unchanged this AM from yesterday. Chest tube continues with ~240 cc serosang output. On RA. Ambulating well. POD#6 - Patient converted to atrial fibrillation last night for which she received metoprolol and amiodarone gtt with subsequent conversion - currently NSR. CT chest performed yesterday demonstrated moderate to large left-sided hydropneumothorax. Patient amenable to have pigtail placed by IR today to evacuate. She reports frequent coughing and left sided pain 5/10. Saturating 96% on RA. Chest tube with approx 200ml / 24h per chart - patient reports the output has been much higher. Atrium marked for reference tomorrow. Labs in progress. POD#7: NAEO AVSS L apical pigtail catheter placed yesterday, interval worsening of CXR this am concerning for mucous plugging. Pt is pulling 750cc on IS and endorses a cough. Breathing well on RA. +BM POD#8 NAEO AVSS AM CXR shows continued opacification of the left hemithorax concerning for mucous plugging vs HAP, although the latter seems less likely given stable WBC and pt without clinical symptoms. Oxycodone given 3 times yesterday but pt continues to endorse significant pain with coughing which is reducing her ability to clear secretions. Discussed optimizing pain regimen with pain management who will assess today. CT chest ordered. Pt is walking halls very well on RA. POD#9 - Patient ambulating on RA multiple times per day. CBC this AM showing drop on Hgb to 8.2 and hematocrit 25.7. Pain somewhat controlled. Just oxycodone this AM. 2V CXR marginally improved. POD#10 - Patient saturating 93% on RA. She reports 5-6 pain which radiates from area of anterior chest tube placement into her left breast. She reports she is not able to breathe deeply due to the pain. Hgb has improved to 8.6 today. Patient receiving iv lasix, BUN/Cr uptrending - lasix converted to PO formulation. UOP 1L / 24h. Patient cleared for discharge today, but her is not able to leave the home due to the inclement weather. Patient will discharge tomorrow AM. Rhythm: NSR Intake/Output Summary (Last 24 hours) at 06/23/2022 1115 Last data filed at 06/23/2022 0900 Gross per 24 hour Intake 556 ml Output 300 ml Net 256 ml TELE: most recent recordings reviewed CXR: most recent image reviewed, most recent report reviewed PHYSICAL EXAM: Vital Signs:BP 115/52 Pulse 65 Temp 36.9 ?C (98.4 ?F) (Oral) Resp 16 Wt 84.2 kg (185 lb 9.6 oz) SpO2 93% BMI 31.86 kg/m? Constitutional: Well developed and Well nourished HEENT: PERRLA and EOM's intact Resp: Decreased breath sounds Cardiovascular: Regular rate AND rhythm GI: Soft and Non-tender Integumentary: Warm and No rash on chest, arms or legs Musculoskeletal: No deformities, No joint deformities, and No kyphoscoliosis Neurological/Psychiatric: Oriented to time, place AND person and No gross focal neurologic deficits Additional systems reviewed: No additional systems reviewed Drains: None Incisions: Yes HISTORY, ASSESSMENT AND PLAN: Jemima Bradford is a 82 year old female s/p Left robotic-assisted pneumolysis; Left robotic-assisted anatomic lingular sparing upper lobectomy: S1, S2, S3; Mediastinal lymph node dissection, nodes: 5, 7, 9, 10, 11 and 12; Cryoanalgesia procedure, interspaces 5 - 7. (Total time 10 minutes); Left re (more content not included)...[facility] [id number] Note HNO ID: [id number] Author: Los Jacobs PA-C Service: Cardiac Surgery Author Type: Physician Semiconductor Processing Technician Type: Progress Notes Filed: 06/22/2022 10:09 AM Note Text: [facility] POST[facility] PROGRESS NOTE Day of Surgery:06/19/2022 S/P SURGERY: Left robotic-assisted pneumolysis. Left robotic-assisted anatomic lingular sparring upper lobectomy: S1, S2, S3. Mediastinal lymph node dissection, nodes: 5, 7, 9, 10, 11 and 12. Cryoanalgesia procedure, interspaces 5 - 7. (Total time 10 minutes) Left regional intercostal nerve block, interspaces 5 - 7. (Marcaine) Chest tube placement x 1 (#24-[facility] chest tube). INTERVAL EVENTS / PERTINENT ROS: POD#1 - PITO overnight. Patient on 2L NC. +flatus, -BM. -[address] output since OR. Will continue chest tube to suction. No air leak. Patient complaining of uncontrolled post op pain. Will consult pain management. POD#2 - Patient with urinary retention overnight. Straight cath with 900 cc removed. Patient has since urinated on own. CT output -280 cc serosang output. No air leak present. Pain better controlled since pain management. POD#3- Patient placed to water seal yesterday. Unfortunately, patient accumulated fluid in left chest. Patient continues NC. Denies flatus or BM. Patient receiving Milk of Mag. Patient placed back to suction this AM after discussion with Dr. Amaral. POD#4 - Patient continues chest tubes to suction. -310 cc sersang output in last 24 hours. Tolerating full diet. Ambulating with assistance and walker. Currently on RA sitting in chair. Discussed CXR POD#5 - CXR unchanged this AM from yesterday. Chest tube continues with ~240 cc serosang output. On RA. Ambulating well. POD#6 - Patient converted to atrial fibrillation last night for which she received metoprolol and amiodarone gtt with subsequent conversion - currently NSR. CT chest performed yesterday demonstrated moderate to large left-sided hydropneumothorax. Patient amenable to have pigtail placed by IR today to evacuate. She reports frequent coughing and left sided pain 5/10. Saturating 96% on RA. Chest tube with approx 200ml / 24h per chart - patient reports the output has been much higher. Atrium marked for reference tomorrow. Labs in progress. POD#7: NAEO AVSS L apical pigtail catheter placed yesterday, interval worsening of CXR this am concerning for mucous plugging. Pt is pulling 750cc on IS and endorses a cough. Breathing well on RA. +BM POD#8 NAEO AVSS AM CXR shows continued opacification of the left hemithorax concerning for mucous plugging vs HAP, although the latter seems less likely given stable WBC and pt without clinical symptoms. Oxycodone given 3 times yesterday but pt continues to endorse significant pain with coughing which is reducing her ability to clear secretions. Discussed optimizing pain regimen with pain management who will assess today. CT chest ordered. Pt is walking halls very well on RA. POD#9 - Patient ambulating on RA multiple times per day. CBC this AM showing drop on Hgb to 8.2 and hematocrit 25.7. Pain somewhat controlled. Just oxycodone this AM. 2V CXR marginally improved. Rhythm: NSR Intake/Output Summary (Last 24 hours) at 06/22/2022 1005 Last data filed at 06/22/2022 0041 Gross per 24 hour Intake 360 ml Output 1350 ml Net -990 ml TELE: most recent recordings reviewed CXR: most recent image reviewed PHYSICAL EXAM: Vital Signs:BP (!) 107/44 Pulse (!) 58 Temp 36.9 ?C (98.4 ?F) (Oral) Resp 16 Wt 84.2 kg (185 lb 9.6 oz) SpO2 95% BMI 31.86 kg/m? Constitutional: Well developed and Well nourished HEENT: PERRLA and EOM's intact Resp: Decreased breath sounds Cardiovascular: Regular rate AND rhythm GI: Soft and Non-tender Integumentary: Warm and No rash on chest, arms or legs Musculoskeletal: No deformities, No joint deformities, and No kyphoscoliosis Neurological/Psychiatric: Oriented to time, place AND person and No gross focal neurologic deficits Additional systems reviewed: No additional systems reviewed Drains: None Incisions: Yes HISTORY, ASSESSMENT AND PLAN: Jemima Bradford is a 82 year old female s/p Left robotic-assisted pneumolysis; Left robotic-assisted anatomic lingular sparing upper lobectomy: S1, S2, S3; Mediastinal lymph node dissection, nodes: 5, 7, 9, 10, 11 and 12; Cryoanalgesia procedure, interspaces 5 - 7. (Total time 10 minutes); Left regional intercostal nerve block, interspaces 5 - 7. (Marcaine); Chest tube placement x 1 (#24-[facility] chest tube) by Dr. Amaral on 06/13/2022 for a hypermetabolic left upper lobe nodule. Post operative course c/b apical hydroptx now s/p L pigtail catheter placement 06/19. -AVSS - Chest tubes removed PODd#8 -CT completed and reviewed with Dr. Amaral Paroxysmal A-fib x 1 -currently NSR -amio gtt -> PO dosing -optimize electrolytes: K>4, Mg>2 -will resume Eliquis at discharge Hyperlipidem (more content not included)...[facility] [id number] NoteHNO ID: [id number] Author: Lior Whitfield PA-C Service: Cardiac Surgery Author Type: Physician Semiconductor Processing Technician Type: Procedures Filed: 06/21/2022 3:07 PM Note Text: UNIVERSAL PROTOCOL / SAFETY CHECKLIST Procedure to be Performed: Chest Tube Removal Sign In: A Moment of CARE was completed. Personnel directly involved with the procedure wore the appropriate PPE (Personal Protective Equipment). Patient/Surrogate Stated/Verified: PATIENT VERIFIED: Patient name, Date of , Relevant allergies and The intended procedure Time Out Communication: Intended patient and procedure match the source documents. CT Removal x 2 - Air leak check via patient valsalva - Area surrounding chest tube sutures swabbed with betadine solution - Sutures affixing chest tubes to skin cut - Xeroform dressing placed over top of chest tubes in configuration to create seal - Chest tubes removed under forced valsalva - Pressure placed on dressing during and immediately after pull to ensure air seal - dressing applied - Well-tolerated, no complications - no post pull CXR required Sign Out: SIGN OUT: All instruments, equipment, possible retained foreign bodies accounted for. Lior Whitfield PA-C Thoracic Surgery [id number] DATE: June 21, 2022 TIME: [address] [place], [place] [address]12-22-2022 NoteHNO ID: [id number] Author: Lior Whitfield PA-C Service: Cardiac Surgery Author Type: Physician Semiconductor Processing Technician Type: Progress Notes Filed: 06/21/2022 11:06 AM Note Text: [facility] POST[facility] PROGRESS NOTE Day of Surgery:06/19/2022 S/P SURGERY: Left robotic-assisted pneumolysis. Left robotic-assisted anatomic lingular sparring upper lobectomy: S1, S2, S3. Mediastinal lymph node dissection, nodes: 5, 7, 9, 10, 11 and 12. Cryoanalgesia procedure, interspaces 5 - 7. (Total time 10 minutes) Left regional intercostal nerve block, interspaces 5 - 7. (Marcaine) Chest tube placement x 1 (#24-[facility] chest tube). INTERVAL EVENTS / PERTINENT ROS: POD#1 - PITO overnight. Patient on 2L NC. +flatus, -BM. -[address] output since OR. Will continue chest tube to suction. No air leak. Patient complaining of uncontrolled post op pain. Will consult pain management. POD#2 - Patient with urinary retention overnight. Straight cath with 900 cc removed. Patient has since urinated on own. CT output -280 cc serosang output. No air leak present. Pain better controlled since pain management. POD#3- Patient placed to water seal yesterday. Unfortunately, patient accumulated fluid in left chest. Patient continues NC. Denies flatus or BM. Patient receiving Milk of Mag. Patient placed back to suction this AM after discussion with Dr. Amaral. POD#4 - Patient continues chest tubes to suction. -310 cc sersang output in last 24 hours. Tolerating full diet. Ambulating with assistance and walker. Currently on RA sitting in chair. Discussed CXR POD#5 - CXR unchanged this AM from yesterday. Chest tube continues with ~240 cc serosang output. On RA. Ambulating well. POD#6 - Patient converted to atrial fibrillation last night for which she received metoprolol and amiodarone gtt with subsequent conversion - currently NSR. CT chest performed yesterday demonstrated moderate to large left-sided hydropneumothorax. Patient amenable to have pigtail placed by IR today to evacuate. She reports frequent coughing and left sided pain 5/10. Saturating 96% on RA. Chest tube with approx 200ml / 24h per chart - patient reports the output has been much higher. Atrium marked for reference tomorrow. Labs in progress. POD#7: NAEO AVSS L apical pigtail catheter placed yesterday, interval worsening of CXR this am concerning for mucous plugging. Pt is pulling 750cc on IS and endorses a cough. Breathing well on RA. +BM POD#8 NAEO AVSS AM CXR shows continued opacification of the left hemithorax concerning for mucous plugging vs HAP, although the latter seems less likely given stable WBC and pt without clinical symptoms. Oxycodone given 3 times yesterday but pt continues to endorse significant pain with coughing which is reducing her ability to clear secretions. Discussed optimizing pain regimen with pain management who will assess today. CT chest ordered. Pt is walking halls very well on RA. Rhythm: NSR Intake/Output Summary (Last 24 hours) at 06/21/2022 1100 Last data filed at 06/21/2022 1000 Gross per 24 hour Intake 620 ml Output 1653 ml Net -1033 ml TELE: most recent recordings reviewed CXR: most recent image reviewed PHYSICAL EXAM: Vital Signs:BP (!) 122/47 Pulse 85 Temp 36.9 ?C (98.4 ?F) (Oral) Resp 18 Wt 84.2 kg (185 lb 9.6 oz) SpO2 95% BMI 31.86 kg/m? Constitutional: Well developed, Well nourished , and No acute distress HEENT: EOM's intact Resp: Clear on R, diminished throughout on left Cardiovascular: Regular rate AND rhythm GI: Soft and Non-tender Integumentary: Warm and Dry Musculoskeletal: No deformities Neurological/Psychiatric: Oriented to time, place AND person Additional systems reviewed: No additional systems reviewed Drains: CTx2 Incisions: Yes HISTORY, ASSESSMENT AND PLAN: Jemima Bradford is a 82 year old female s/p Left robotic-assisted pneumolysis; Left robotic-assisted anatomic lingular sparing upper lobectomy: S1, S2, S3; Mediastinal lymph node dissection, nodes: 5, 7, 9, 10, 11 and 12; Cryoanalgesia procedure, interspaces 5 - 7. (Total time 10 minutes); Left regional intercostal nerve block, interspaces 5 - 7. (Marcaine); Chest tube placement x 1 (#24-[facility] chest tube) by Dr. Amaral on 06/13/2022 for a hypermetabolic left upper lobe nodule. Post operative course c/b apical hydroptx now s/p L pigtail catheter placement 06/19. -AVSS -continue CT and pigtail to -20 suction -CT chest ordered Paroxysmal A-fib x 1 -currently NSR -amio gtt -> PO dosing -optimize electrolytes: K>4, Mg>2 -will resume Eliquis once tubes are removed Hyperlipidemia -Crestor Post-operative Atelectasis -aggressive bronchopulmonary hygiene -continue duoneb with PEP therapy -incr IS use -OOB as tolerated Post-operative Pain -scheduled acetaminophen -lidocaine topical patch -oxycodone PRN -pain mgmt consult Volume Overload/CHF - (more content not included)...[facility] [id number] NoteHNO ID: [id number] Author: Lior Whitfield PA-C Service: Cardiac Surgery Author Type: Physician Semiconductor Processing Technician Type: Progress Notes Filed: 06/20/2022 12:07 PM Note Text: [facility] POST[facility] PROGRESS NOTE Day of Surgery:06/19/2022 S/P SURGERY: Left robotic-assisted pneumolysis. Left robotic-assisted anatomic lingular sparring upper lobectomy: S1, S2, S3. Mediastinal lymph node dissection, nodes: 5, 7, 9, 10, 11 and 12. Cryoanalgesia procedure, interspaces 5 - 7. (Total time 10 minutes) Left regional intercostal nerve block, interspaces 5 - 7. (Marcaine) Chest tube placement x 1 (#24-[facility] chest tube). INTERVAL EVENTS / PERTINENT ROS: POD#1 - PITO overnight. Patient on 2L NC. +flatus, -BM. -[address] output since OR. Will continue chest tube to suction. No air leak. Patient complaining of uncontrolled post op pain. Will consult pain management. POD#2 - Patient with urinary retention overnight. Straight cath with 900 cc removed. Patient has since urinated on own. CT output -280 cc serosang output. No air leak present. Pain better controlled since pain management. POD#3- Patient placed to water seal yesterday. Unfortunately, patient accumulated fluid in left chest. Patient continues NC. Denies flatus or BM. Patient receiving Milk of Mag. Patient placed back to suction this AM after discussion with Dr. Amaral. POD#4 - Patient continues chest tubes to suction. -310 cc sersang output in last 24 hours. Tolerating full diet. Ambulating with assistance and walker. Currently on RA sitting in chair. Discussed CXR POD#5 - CXR unchanged this AM from yesterday. Chest tube continues with ~240 cc serosang output. On RA. Ambulating well. POD#6 - Patient converted to atrial fibrillation last night for which she received metoprolol and amiodarone gtt with subsequent conversion - currently NSR. CT chest performed yesterday demonstrated moderate to large left-sided hydropneumothorax. Patient amenable to have pigtail placed by IR today to evacuate. She reports frequent coughing and left sided pain 5/10. Saturating 96% on RA. Chest tube with approx 200ml / 24h per chart - patient reports the output has been much higher. Atrium marked for reference tomorrow. Labs in progress. POD#7: NAEO AVSS L apical pigtail catheter placed yesterday, interval worsening of CXR this am concerning for mucous plugging. Pt is pulling 750cc on IS and endorses a cough. Breathing well on RA. +BM Rhythm: NSR Intake/Output Summary (Last 24 hours) at 06/20/2022 1149 Last data filed at 06/20/2022 1054 Gross per 24 hour Intake 329 ml Output 1420 ml Net -1091 ml TELE: most recent recordings reviewed CXR: most recent image reviewed PHYSICAL EXAM: Vital Signs:BP (!) 111/49 Pulse 79 Temp 36.7 ?C (98.1 ?F) (Oral) Resp 18 Wt 86.5 kg (190 lb 12.8 oz) SpO2 95% BMI 32.75 kg/m? Constitutional: Well developed, Well nourished , and No acute distress HEENT: EOM's intact Resp: Clear on R, diminished throughout on left Cardiovascular: Regular rate AND rhythm GI: Soft and Non-tender Integumentary: Warm and Dry Musculoskeletal: No deformities Neurological/Psychiatric: Oriented to time, place AND person Additional systems reviewed: No additional systems reviewed Drains: CTx2 Incisions: Yes HISTORY, ASSESSMENT AND PLAN: Jemima Bradford is a very pleasant 82-year old female who is a former 3.5+ pack year smoker. She has a history of DCIS breast cancer. She also has a long history of intermittent shortness of breath. Recently, she noticed increasing shortness of breath/dyspnea on exertion. On 04/04/2022 she had a chest x-ray and VQ scan which were not revealing. She had a CT chest on 04/04/22 that showed a scarlike opacity in the left upper lobe measuring 1.5 x 1.3 cm[address] Comparison with a CT chest in December 2019 revealed a scarlike lesion in the area measuring 1.1 x 0.8 cm. PET scan on 04/16/22 showed that the left upper lobe nodule was hypermetabolic, SUV 3.7. There was no other uptake appreciated. 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 MRI brain on 05/02/22 shows no evidence for metastatic disease. Patient underwent Left robotic-assisted pneumolysis; Left robotic-assisted anatomic lingular sparing upper lobectomy: S1, S2, S3; Mediastinal lymph node dissection, nodes: 5, 7, 9, 10, 11 and 12; Cryoanalgesia procedure, interspaces 5 - 7. (Total time 10 minutes); Left regional intercostal nerve block, interspaces 5 - 7. (Marcaine); Chest tube placement x 1 (#24-[facility] chest tube) by Dr. Amaral on 06/13/2022. Post operative course c/b apical hydroptx now s/p L pigtail catheter placement 06/19. -AVSS -continue CT to -20 suction Paroxysmal A-fib x 1 -currently NSR -amio gtt -> PO dosing -optimize electrolytes: K>4, Mg>2 -will resume Eliquis once tubes a (more content not included)...[facility] [id number] NoteHNO ID: [id number] Author: Louis العلي PA-C Service: Thoracic Surgery Author Type: Physician Semiconductor Processing Technician Type: Progress Notes Filed: 06/19/2022 12:35 PM Note Text: [facility] POST[facility] PROGRESS NOTE Day of Surgery:06/13/2022 S/P SURGERY: Left robotic-assisted pneumolysis. Left robotic-assisted anatomic lingular sparring upper lobectomy: S1, S2, S3. Mediastinal lymph node dissection, nodes: 5, 7, 9, 10, 11 and 12. Cryoanalgesia procedure, interspaces 5 - 7. (Total time 10 minutes) Left regional intercostal nerve block, interspaces 5 - 7. (Marcaine) Chest tube placement x 1 (#24-[facility] chest tube). INTERVAL EVENTS / PERTINENT ROS: POD#1 - PITO overnight. Patient on 2L NC. +flatus, -BM. -[address] output since OR. Will continue chest tube to suction. No air leak. Patient complaining of uncontrolled post op pain. Will consult pain management. POD#2 - Patient with urinary retention overnight. Straight cath with 900 cc removed. Patient has since urinated on own. CT output -280 cc serosang output. No air leak present. Pain better controlled since pain management. POD#3- Patient placed to water seal yesterday. Unfortunately, patient accumulated fluid in left chest. Patient continues NC. Denies flatus or BM. Patient receiving Milk of Mag. Patient placed back to suction this AM after discussion with Dr. Amaral. POD#4 - Patient continues chest tubes to suction. -310 cc sersang output in last 24 hours. Tolerating full diet. Ambulating with assistance and walker. Currently on RA sitting in chair. Discussed CXR POD#5 - CXR unchanged this AM from yesterday. Chest tube continues with ~240 cc serosang output. On RA. Ambulating well. POD#6 - Patient converted to atrial fibrillation last night for which she received metoprolol and amiodarone gtt with subsequent conversion - currently NSR. CT chest performed yesterday demonstrated moderate to large left-sided hydropneumothorax. Patient amenable to have pigtail placed by IR today to evacuate. She reports frequent coughing and left sided pain 5/10. Saturating 96% on RA. Chest tube with approx 200ml / 24h per chart - patient reports the output has been much higher. Atrium marked for reference tomorrow. Labs in progress. Rhythm: NSR Intake/Output Summary (Last 24 hours) at 06/19/2022 1142 Last data filed at 06/19/2022 1049 Gross per 24 hour Intake 805 ml Output 1645 ml Net -840 ml TELE: most recent recordings reviewed CXR: most recent image reviewed, most recent report reviewed PHYSICAL EXAM: Vital Signs:BP 114/51 Pulse 71 Temp 36.7 ?C (98.1 ?F) (Oral) Resp 18 Wt 86.5 kg (190 lb 12.8 oz) SpO2 96% BMI 32.75 kg/m? Constitutional: Well developed and Well nourished HEENT: PERRLA and EOM's intact Resp: Decreased breath sounds TIMUR, bibasilar crackles Cardiovascular: Regular rate AND rhythm GI: Soft and Non-tender, bs+ Integumentary: Warm and Dry Musculoskeletal: No deformities Neurological/Psychiatric: Oriented to time, place AND person Additional systems reviewed: No additional systems reviewed Drains: CT x 1 -left side, placed to -10 mmHg suction Incisions: Yes CT Chest w/o IV Contrast: IMPRESSION: 1. Moderate to large left-sided hydropneumothorax. 2. Anteriorly and inferiorly there is a slightly more hyperdense area. Unclear whether this reflects blood products versus collapsed lung. 3. Extensive postsurgical changes including pneumomediastinum and subcutaneous gas. 4. Patchy airspace disease in what appears to be the remnant of the lingula, likely postoperative. 5. 0.7 cm on left nodule in the right apex, nonspecific recommend attention on follow-up. 6. Nondisplaced fracture of the seventh rib on the left. Pathology: FINAL DIAGNOSIS A. Lymph node, level 9, excision: - Negative for tumor (0/1). B. Lymph node, 12 central, excision: - Negative for tumor (0/1). C. Lymph node, 11 anterior, excision: - Negative for tumor (0/1). D. Lymph node, 11 posterior, excision: - Negative for tumor (0/1). E. Lymph node, another 11 posterior, excision: - Negative for tumor (0/1). F. Lymph node, 10, excision: - Negative for tumor (0/1). G. Lymph node, 5, excision: - Negative for tumor (0/1). H. Lymph node, 7, excision: - Negative for tumor (0/1). I. Lung, left upper lobe, lingula-sparing left upper lobectomy: - Adenocarcinoma (2 cm), micropapillary predominant (70%), with additional papillary (20%), and acinar (10%) patterns (See synoptic template). - Seven hilar/peribronchial lymph nodes, negative for tumor (0/7). - Margins negative. HISTORY, ASSESSMENT AND PLAN: Jemima Bradford is a very pleasant 82-year old female who is a former 3.5+ pack year smoker. She has a history of DCIS breast cancer. She also has a long history of intermittent shortness of breath. Recently, she noticed increasing shortness of breath/dyspnea on exertion. On 04/04/2022 she had a ch (more content not included)...[facility] [id number] NoteHNO ID: [id number] Author: Los Jacobs PA-C Service: Cardiac Surgery Author Type: Physician Semiconductor Processing Technician Type: Progress Notes Filed: 06/18/2022 9:44 AM Note Text: [facility] PROGRESS NOTE Day of Surgery:06/13/2022 S/P SURGERY: Left robotic-assisted pneumolysis. Left robotic-assisted anatomic lingular sparring upper lobectomy: S1, S2, S3. Mediastinal lymph node dissection, nodes: 5, 7, 9, 10, 11 and 12. Cryoanalgesia procedure, interspaces 5 - 7. (Total time 10 minutes) Left regional intercostal nerve block, interspaces 5 - 7. (Marcaine) Chest tube placement x 1 (#24-[facility] chest tube). INTERVAL EVENTS / PERTINENT ROS: POD#1 - PITO overnight. Patient on 2L NC. +flatus, -BM. -[address] output since OR. Will continue chest tube to suction. No air leak. Patient complaining of uncontrolled post op pain. Will consult pain management. POD#2 - Patient with urinary retention overnight. Straight cath with 900 cc removed. Patient has since urinated on own. CT output -280 cc serosang output. No air leak present. Pain better controlled since pain management. POD#3- Patient placed to water seal yesterday. Unfortunately, patient accumulated fluid in left chest. Patient continues NC. Denies flatus or BM. Patient receiving Milk of Mag. Patient placed back to suction this AM after discussion with Dr. Amaral. POD#4 - Patient continues chest tubes to suction. -310 cc sersang output in last 24 hours. Tolerating full diet. Ambulating with assistance and walker. Currently on RA sitting in chair. Discussed CXR POD#5 - CXR unchanged this AM from yesterday. Chest tube continues with ~240 cc serosang output. On RA. Ambulating well. Tolerating solid food. +flatus, -BM. For CT chest today Rhythm: NSR Intake/Output Summary (Last 24 hours) at 06/18/2022 0942 Last data filed at 06/18/2022 0900 Gross per 24 hour Intake 500 ml Output 3020 ml Net -2520 ml TELE: most recent recordings reviewed CXR: most recent image reviewed, most recent report reviewed PHYSICAL EXAM: Vital Signs:BP 125/56 Pulse 79 Temp 36.7 ?C (98.1 ?F) (Oral) Resp 20 Wt 86.5 kg (190 lb 12.8 oz) SpO2 94% BMI 32.75 kg/m? Constitutional: Well developed and Well nourished HEENT: PERRLA and EOM's intact Resp: Decreased breath sounds and Crackles Cardiovascular: Regular rate AND rhythm GI: Soft and Non-tender Integumentary: Warm and No rash on chest, arms or legs Musculoskeletal: No deformities, No joint deformities, and No kyphoscoliosis Neurological/Psychiatric: Oriented to time, place AND person and No gross focal neurologic deficits Additional systems reviewed: No additional systems reviewed Drains: CT Incisions: Yes HISTORY, ASSESSMENT AND PLAN: Jemima Bradford is a very pleasant 82-year old female who is a former 3.5+ pack year smoker. She has a history of DCIS breast cancer. She also has a long history of intermittent shortness of breath. Recently, she noticed increasing shortness of breath/dyspnea on exertion. On 04/04/2022 she had a chest x-ray and VQ scan which were not revealing. She had a CT chest on 04/04/22 that showed a scarlike opacity in the left upper lobe measuring 1.5 x 1.3 cm. Comparison with a CT chest in December 2019 revealed a scarlike lesion in the area measuring 1.1 x 0.8 cm. PET scan on 04/16/22 showed that the left upper lobe nodule was hypermetabolic, SUV 3.7. There was no other uptake appreciated. 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 MRI brain on 05/02/22 shows no evidence for metastatic disease. Patient underwent Left robotic-assisted pneumolysis; Left robotic-assisted anatomic lingular sparring upper lobectomy: S1, S2, S3; Mediastinal lymph node dissection, nodes: 5, 7, 9, 10, 11 and 12; Cryoanalgesia procedure, interspaces 5 - 7. (Total time 10 minutes); Left regional intercostal nerve block, interspaces 5 - 7. (Marcaine); Chest tube placement x 1 (#24-[facility] chest tube) by Dr. Amaral on 06/13/2022 without complication - Chest tube to continue to suction. Appears pulmonary infiltrate, but no elevated WBC. Will order CT chest today. - PT/OT - IS - Ambulate TID - Prontonix for GI prophylaxis - BB for afib prophylaxis - Pain management consult for uncontrolled pain - Lovenox for DVT prophylaxis - Pathology pending Discussed with Dr. Amaral DAILY STEP DOWN CHECKLIST FOR CATHETER RELATED INFECTION PREVENTION CVC, PICC, Benny and/or Permacath present? No Does the patient have a urinary catheter beyond POD 2? No VTE Risk Assessment: High risk VTE Mechanical and/or Pharmacologic Prophylaxis: Lovenox Labs and medications reviewed in Epic SIGNATURE: Los Jacobs PA-C PATIENT NAME: Jemima Bradford DATE: June 18, 2022 TIME: 9:43 AM ETX#[id number] Cushing [id number] NoteHNO ID: [id number] Author: Los Jacobs PA-C Service: Cardiac Surgery Author Type: Physician Semiconductor Processing Technician Type: Progress Notes Filed: 06/17/2022 10:29 AM Note Text: [facility] PROGRESS NOTE Day of Surgery:06/13/2022 S/P SURGERY: Left robotic-assisted pneumolysis. Left robotic-assisted anatomic lingular sparring upper lobectomy: S1, S2, S3. Mediastinal lymph node dissection, nodes: 5, 7, 9, 10, 11 and 12. Cryoanalgesia procedure, interspaces 5 - 7. (Total time 10 minutes) Left regional intercostal nerve block, interspaces 5 - 7. (Marcaine) Chest tube placement x 1 (#24-[facility] chest tube). INTERVAL EVENTS / PERTINENT ROS: POD#1 - PITO overnight. Patient on 2L NC. +flatus, -BM. -[address] output since OR. Will continue chest tube to suction. No air leak. Patient complaining of uncontrolled post op pain. Will consult pain management. POD#2 - Patient with urinary retention overnight. Straight cath with 900 cc removed. Patient has since urinated on own. CT output -280 cc serosang output. No air leak present. Pain better controlled since pain management. POD#3- Patient placed to water seal yesterday. Unfortunately, patient accumulated fluid in left chest. Patient continues NC. Denies flatus or BM. Patient receiving Milk of Mag. Patient placed back to suction this AM after discussion with Dr. Amaral. POD#4 - Patient continues chest tubes to suction. -310 cc sersang output in last 24 hours. Tolerating full diet. Ambulating with assistance and walker. Currently on RA sitting in chair. Discussed CXR Rhythm: NSR Intake/Output Summary (Last 24 hours) at 06/17/2022 1027 Last data filed at 06/17/2022 0812 Gross per 24 hour Intake -- Output 590 ml Net -590 ml TELE: most recent recordings reviewed CXR: most recent image reviewed, most recent report reviewed PHYSICAL EXAM: Vital Signs:BP 120/51 Pulse 93 Temp 37.2 ?C (99 ?F) (Oral) Resp 18 SpO2 95% Constitutional: Well developed and Well nourished HEENT: PERRLA and EOM's intact Resp: Decreased breath sounds and Crackles Cardiovascular: Regular rate AND rhythm GI: Soft and Non-tender Integumentary: Warm and No rash on chest, arms or legs Musculoskeletal: No deformities, No joint deformities, and No kyphoscoliosis Neurological/Psychiatric: Oriented to time, place AND person and No gross focal neurologic deficits Additional systems reviewed: No additional systems reviewed Drains: CT Incisions: Yes HISTORY, ASSESSMENT AND PLAN: Jemima Bradford is a very pleasant 82-year old female who is a former 3.5+ pack year smoker. She has a history of DCIS breast cancer. She also has a long history of intermittent shortness of breath. Recently, she noticed increasing shortness of breath/dyspnea on exertion. On 04/04/2022 she had a chest x-ray and VQ scan which were not revealing. She had a CT chest on 04/04/22 that showed a scarlike opacity in the left upper lobe measuring 1.5 x 1.3 cm. Comparison with a CT chest in December 2019 revealed a scarlike lesion in the area measuring 1.1 x 0.8 cm. PET scan on 04/16/22 showed that the left upper lobe nodule was hypermetabolic, SUV 3.7. There was no other uptake appreciated. 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 MRI brain on 05/02/22 shows no evidence for metastatic disease. Patient underwent Left robotic-assisted pneumolysis; Left robotic-assisted anatomic lingular sparring upper lobectomy: S1, S2, S3; Mediastinal lymph node dissection, nodes: 5, 7, 9, 10, 11 and 12; Cryoanalgesia procedure, interspaces 5 - 7. (Total time 10 minutes); Left regional intercostal nerve block, interspaces 5 - 7. (Marcaine); Chest tube placement x 1 (#24-[facility] chest tube) by Dr. Amaral on 06/13/2022 without complication - Chest tube to continue to suction. Appears pulmonary infiltrate, but no elevated WBC. Will continue to monitor - PT/OT - IS - Ambulate TID - Prontonix for GI prophylaxis - BB for afib prophylaxis - Pain management consult for uncontrolled pain - Lovenox for DVT prophylaxis - Pathology pending Discussed with Dr. Amaral DAILY STEP DOWN CHECKLIST FOR CATHETER RELATED INFECTION PREVENTION CVC, PICC, Benny and/or Permacath present? No Does the patient have a urinary catheter beyond POD 2? No VTE Risk Assessment: High risk VTE Mechanical and/or Pharmacologic Prophylaxis: Lovenox Labs and medications reviewed in [facility] SIGNATURE: Los Jacobs PA-C PATIENT NAME: Jemima Bradford DATE: June 17, 2022 TIME: 10:29 AM ETX#[id number] Cushing [id number] NoteHNO ID: [id number] Author: Los Jacobs PA-C Service: Cardiac Surgery Author Type: Physician Semiconductor Processing Technician Type: Progress Notes Filed: 06/16/2022 9:15 AM Note Text: [facility] PROGRESS NOTE Day of Surgery:06/13/2022 S/P SURGERY: Left robotic-assisted pneumolysis. Left robotic-assisted anatomic lingular sparring upper lobectomy: S1, S2, S3. Mediastinal lymph node dissection, nodes: 5, 7, 9, 10, 11 and 12. Cryoanalgesia procedure, interspaces 5 - 7. (Total time 10 minutes) Left regional intercostal nerve block, interspaces 5 - 7. (Marcaine) Chest tube placement x 1 (#24-[facility] chest tube). INTERVAL EVENTS / PERTINENT ROS: POD#1 - PITO overnight. Patient on 2L NC. +flatus, -BM. -[address] output since OR. Will continue chest tube to suction. No air leak. Patient complaining of uncontrolled post op pain. Will consult pain management. POD#2 - Patient with urinary retention overnight. Straight cath with 900 cc removed. Patient has since urinated on own. CT output -280 cc serosang output. No air leak present. Pain better controlled since pain management. POD#3- Patient placed to water seal yesterday. Unfortunately, patient accumulated fluid in left chest. Patient continues NC. Denies flatus or BM. Patient receiving Milk of Mag. Patient placed back to suction this AM after discussion with Dr. Amaral. Rhythm: NSR Intake/Output Summary (Last 24 hours) at 06/16/2022 0911 Last data filed at 06/16/2022 0859 Gross per 24 hour Intake -- Output 1490 ml Net -1490 ml TELE: most recent recordings reviewed CXR: most recent image reviewed, most recent report reviewed PHYSICAL EXAM: Vital Signs:BP 120/52 Pulse 92 Temp 36.7 ?C (98.1 ?F) (Oral) Resp 15 SpO2 95% Constitutional: Well developed and Well nourished HEENT: PERRLA and EOM's intact Resp: Decreased breath sounds and Crackles Cardiovascular: Regular rate AND rhythm GI: Soft and Non-tender Integumentary: Warm and No rash on chest, arms or legs Musculoskeletal: No deformities, No joint deformities, and No kyphoscoliosis Neurological/Psychiatric: Oriented to time, place AND person and No gross focal neurologic deficits Additional systems reviewed: No additional systems reviewed Drains: CT Incisions: Yes HISTORY, ASSESSMENT AND PLAN: Jemima Bradford is a very pleasant 82-year old female who is a former 3.5+ pack year smoker. She has a history of DCIS breast cancer. She also has a long history of intermittent shortness of breath. Recently, she noticed increasing shortness of breath/dyspnea on exertion. On 04/04/2022 she had a chest x-ray and VQ scan which were not revealing. She had a CT chest on 04/04/22 that showed a scarlike opacity in the left upper lobe measuring 1.5 x 1.3 cm. Comparison with a CT chest in December 2019 revealed a scarlike lesion in the area measuring 1.1 x 0.8 cm. PET scan on 04/16/22 showed that the left upper lobe nodule was hypermetabolic, SUV 3.7. There was no other uptake appreciated. 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 MRI brain on 05/02/22 shows no evidence for metastatic disease. Patient underwent Left robotic-assisted pneumolysis; Left robotic-assisted anatomic lingular sparring upper lobectomy: S1, S2, S3; Mediastinal lymph node dissection, nodes: 5, 7, 9, 10, 11 and 12; Cryoanalgesia procedure, interspaces 5 - 7. (Total time 10 minutes); Left regional intercostal nerve block, interspaces 5 - 7. (Marcaine); Chest tube placement x 1 (#24-[facility] chest tube) by Dr. Amaral on 06/13/2022 without complication - Chest tube placed to suction this AM due to output - PT/OT - IS - Ambulate TID - Prontonix for GI prophylaxis - BB for afib prophylaxis - Pain management consult for uncontrolled pain - Lovenox for DVT prophylaxis - Pathology pending Discussed with Dr. Amaral DAILY STEP DOWN CHECKLIST FOR CATHETER RELATED INFECTION PREVENTION CVC, PICC, Benny and/or Permacath present? No Does the patient have a urinary catheter beyond POD 2? No VTE Risk Assessment: High risk VTE Mechanical and/or Pharmacologic Prophylaxis: Lovenox Labs and medications reviewed in Epic SIGNATURE: Los Jacobs PA-C PATIENT NAME: Jemima Bradford DATE: June 16, 2022 TIME: 9:58 AM ETX#[id number] Cushing [id number] NoteHNO ID: [id number] Author: Los Jacobs PA-C Service: Cardiac Surgery Author Type: Physician Semiconductor Processing Technician Type: Progress Notes Filed: 06/15/2022 9:58 AM Note Text: [facility] PROGRESS NOTE Day of Surgery:06/13/2022 S/P SURGERY: Left robotic-assisted pneumolysis. Left robotic-assisted anatomic lingular sparring upper lobectomy: S1, S2, S3. Mediastinal lymph node dissection, nodes: 5, 7, 9, 10, 11 and 12. Cryoanalgesia procedure, interspaces 5 - 7. (Total time 10 minutes) Left regional intercostal nerve block, interspaces 5 - 7. (Marcaine) Chest tube placement x 1 (#24-[facility] chest tube). INTERVAL EVENTS / PERTINENT ROS: POD#1 - PITO overnight. Patient on 2L NC. +flatus, -BM. -[address] output since OR. Will continue chest tube to suction. No air leak. Patient complaining of uncontrolled post op pain. Will consult pain management. POD#2 - Patient with urinary retention overnight. Straight cath with 900 cc removed. Patient has since urinated on own. CT output -280 cc serosang output. No air leak present. Pain better controlled since pain management. Rhythm: NSR Intake/Output Summary (Last 24 hours) at 06/15/2022 0955 Last data filed at 06/15/2022 0754 Gross per 24 hour Intake 100 ml Output 1650 ml Net -1550 ml TELE: most recent recordings reviewed CXR: most recent image reviewed, most recent report reviewed PHYSICAL EXAM: Vital Signs:BP 109/52 Pulse 77 Temp 36.8 ?C (98.2 ?F) (Oral) Resp 20 SpO2 94% Constitutional: Well developed and Well nourished HEENT: PERRLA and EOM's intact Resp: Decreased breath sounds and Crackles Cardiovascular: Regular rate AND rhythm GI: Soft and Non-tender Integumentary: Warm and No rash on chest, arms or legs Musculoskeletal: No deformities, No joint deformities, and No kyphoscoliosis Neurological/Psychiatric: Oriented to time, place AND person and No gross focal neurologic deficits Additional systems reviewed: No additional systems reviewed Drains: CT Incisions: Yes HISTORY, ASSESSMENT AND PLAN: Jemima Bradford is a very pleasant 82-year old female who is a former 3.5+ pack year smoker. She has a history of DCIS breast cancer. She also has a long history of intermittent shortness of breath. Recently, she noticed increasing shortness of breath/dyspnea on exertion. On 04/04/2022 she had a chest x-ray and VQ scan which were not revealing. She had a CT chest on 04/04/22 that showed a scarlike opacity in the left upper lobe measuring 1.5 x 1.3 cm. Comparison with a CT chest in December 2019 revealed a scarlike lesion in the area measuring 1.1 x 0.8 cm. PET scan on 04/16/22 showed that the left upper lobe nodule was hypermetabolic, SUV 3.7. There was no other uptake appreciated. 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 MRI brain on 05/02/22 shows no evidence for metastatic disease. Patient underwent Left robotic-assisted pneumolysis; Left robotic-assisted anatomic lingular sparring upper lobectomy: S1, S2, S3; Mediastinal lymph node dissection, nodes: 5, 7, 9, 10, 11 and 12; Cryoanalgesia procedure, interspaces 5 - 7. (Total time 10 minutes); Left regional intercostal nerve block, interspaces 5 - 7. (Marcaine); Chest tube placement x 1 (#24-[facility] chest tube) by Dr. Amaral on 06/13/2022 without complication - Chest tube placed to water seal. Continue due to elevated output - Tentatively plan to remove chest tube tomorrow followed by discharge. - PT/OT - IS - Ambulate TID - Prontonix for GI prophylaxis - BB for afib prophylaxis - Pain management consult for uncontrolled pain - Lovenox for DVT prophylaxis - Pathology pending Will discuss with Dr. Amaral DAILY STEP DOWN CHECKLIST FOR CATHETER RELATED INFECTION PREVENTION CVC, PICC, Benny and/or Permacath present? No Does the patient have a urinary catheter beyond POD 2? No VTE Risk Assessment: High risk VTE Mechanical and/or Pharmacologic Prophylaxis: Lovenox Labs and medications reviewed in [facility] SIGNATURE: Los Jacobs PA-C PATIENT NAME: Jemima Bradford DATE: June 15, 2022 TIME: 9:58 AM ETX#[id number] Cushing [id number] NoteHNO ID: [id number] Author: Los Jacobs PA-C Service: Cardiac Surgery Author Type: Physician Semiconductor Processing Technician Type: Progress Notes Filed: 06/14/2022 10:50 AM Note Text: [facility] POSTOP PROGRESS NOTE Day of Surgery:06/13/2022 S/P SURGERY: Left robotic-assisted pneumolysis. Left robotic-assisted anatomic lingular sparring upper lobectomy: S1, S2, S3. Mediastinal lymph node dissection, nodes: 5, 7, 9, 10, 11 and 12. Cryoanalgesia procedure, interspaces 5 - 7. (Total time 10 minutes) Left regional intercostal nerve block, interspaces 5 - 7. (Marcaine) Chest tube placement x 1 (#24-[facility] chest tube). INTERVAL EVENTS / PERTINENT ROS: POD#1 - PITO overnight. Patient on 2L NC. +flatus, -BM. -[address] output since OR. Will continue chest tube to suction. No air leak. Patient complaining of uncontrolled post op pain. Will consult pain management. Rhythm: NSR Intake/Output Summary (Last 24 hours) at 06/14/2022 1042 Last data filed at 06/14/2022 0908 Gross per 24 hour Intake 1200 ml Output 1500 ml Net -300 ml TELE: most recent recordings reviewed CXR: most recent image reviewed, most recent report reviewed PHYSICAL EXAM: Vital Signs:BP (!) 100/40 Pulse 61 Temp 37.3 ?C (99.1 ?F) (Oral) Resp 16 SpO2 94% Constitutional: Well developed and Well nourished HEENT: PERRLA and EOM's intact Resp: Decreased breath sounds and Crackles Cardiovascular: Regular rate AND rhythm GI: Soft and Non-tender Integumentary: Warm and No rash on chest, arms or legs Musculoskeletal: No deformities, No joint deformities, and No kyphoscoliosis Neurological/Psychiatric: Oriented to time, place AND person and No gross focal neurologic deficits Additional systems reviewed: No additional systems reviewed Drains: CT Incisions: Yes HISTORY, ASSESSMENT AND PLAN: Jemima Bradford is a very pleasant 82-year old female who is a former 3.5+ pack year smoker. She has a history of DCIS breast cancer. She also has a long history of intermittent shortness of breath. Recently, she noticed increasing shortness of breath/dyspnea on exertion. On 04/04/2022 she had a chest x-ray and VQ scan which were not revealing. She had a CT chest on 04/04/22 that showed a scarlike opacity in the left upper lobe measuring 1.5 x 1.3 cm. Comparison with a CT chest in December 2019 revealed a scarlike lesion in the area measuring 1.1 x 0.8 cm. PET scan on 04/16/22 showed that the left upper lobe nodule was hypermetabolic, SUV 3.7. There was no other uptake appreciated. 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 MRI brain on 05/02/22 shows no evidence for metastatic disease. Patient underwent Left robotic-assisted pneumolysis; Left robotic-assisted anatomic lingular sparring upper lobectomy: S1, S2, S3; Mediastinal lymph node dissection, nodes: 5, 7, 9, 10, 11 and 12; Cryoanalgesia procedure, interspaces 5 - 7. (Total time 10 minutes); Left regional intercostal nerve block, interspaces 5 - 7. (Marcaine); Chest tube placement x 1 (#24-[facility] chest tube) by Dr. Amaral on 06/13/2022 without complication - Continue chest tube to suction due to output. No air leak present - PT/OT - IS - Ambulate TID - Prontonix for GI prophylaxis - BB for afib prophylaxis - Pain management consult for uncontrolled pain - Lovenox for DVT prophylaxis - Pathology pending Discussed with Dr. Wudel DAILY STEP DOWN CHECKLIST FOR CATHETER RELATED INFECTION PREVENTION CVC, PICC, Benny and/or Permacath present? No Does the patient have a urinary catheter beyond POD 2? No VTE Risk Assessment: High risk VTE Mechanical and/or Pharmacologic Prophylaxis: Lovenox Labs and medications reviewed in [facility] SIGNATURE: [place] Jacobs PA-C PATIENT NAME: Jemima Bradford DATE: June 14, 2022 TIME: 10:42 AM ETX#[id number] Cushing [id number] History of Past illness Narrative* Problem Noted Date Resolved Date Mass of upper lobe of left lung 06/13/2022 06/22/2022 documented as of this encounter (statuses as of 06/24/2022) [facility]12-14-2022 History of Past illness Narrative* Problem Noted Date Resolved Date Mass of upper lobe of left lung 06/13/2022 06/22/2022 documented as of this encounter (statuses as of 07/05/2022) [facility]12-14-2022 History of Past illness Narrative* Problem Noted Date Resolved Date Mass of upper lobe of left lung 06/13/2022 06/22/2022 documented as of this encounter (statuses as of 07/09/2022) [facility]12-14-2022 History of Past illness Narrative* Problem Noted Date Resolved Date Mass of upper lobe of left lung 06/13/2022 06/22/2022 documented as of this encounter (statuses as of 07/13/2022) [facility]12-14-2022 History of Past illness Narrative* Problem Noted Date Resolved Date Mass of upper lobe of left lung 06/13/2022 06/22/2022 documented as of this encounter (statuses as of 10/03/2022) [address]14-2022 History of Past illness Narrative* Problem Noted Date Diagnosed Date Resolved Date Mass of upper lobe of left lung 06/13/2022 06/22/2022 documented as of this encounter (statuses as of 01/16/2023) [address]14-2022 History of Past illness Narrative* Problem Noted Date Diagnosed Date Resolved Date Mass of upper lobe of left lung 06/13/2022 06/22/2022 documented as of this encounter (statuses as of 04/09/2023) [address]14-2022 History of Past illness Narrative* Problem Noted Date Diagnosed Date Resolved Date Mass of upper lobe of left lung 06/13/2022 06/22/2022 documented as of this encounter (statuses as of 04/24/2023) [facility]12-14-2022 History of Past illness Narrative* Problem Noted Date Diagnosed Date Resolved Date Mass of upper lobe of left lung 06/13/2022 06/22/2022 documented as of this encounter (statuses as of 05/15/2023) [facility]12-14-2022 History of Past illness Narrative* Problem Noted Date Diagnosed Date Resolved Date Mass of upper lobe of left lung 06/13/2022 06/22/2022 documented as of this encounter (statuses as of 09/26/2023) [facility]12-14-2022 History of Past illness Narrative* Problem Noted Date Diagnosed Date Resolved Date Mass of upper lobe of left lung 06/13/2022 06/22/2022 documented as of this encounter (statuses as of 10/04/2023) [facility]12-14-2022 NoteHNO ID: [id number] Author: DEION Tom Service: ? Author Type: Screedman/Laborer Type: Anesthesia Procedure Notes Filed: 06/13/2022 9:14 AM Note Text: ANESTHESIOLOGY PROCEDURE NOTE A-Line General Information Procedure Start Time/Medication Administration: 06/13/2022 8:16 AM Patient location during procedure: OR Consent Obtained: Yes Indications: continuous blood pressure monitoring Staffing Anesthesiologist: Ra Starr DO CAA: DEION Tom Student: JOSE Pride Performed by: ARASELI student Preparation Sterility Preparation: sterile gloves, drapes, and procedure tray, surgical cap used, mask used, sterile drape used during line insertion, skin prep agent completely dried prior to procedure Site Prep: Chloraprep Procedure Details Catheter Type: arterial line Catheter Size: 20 G Catheter Length: 5.25 in Guidewire Used: Yes Guidewire Removed Intact: Yes Laterality: right Site: radial artery Ultrasound Guided: No Line Secured: tape and occlusive biodressing Events Events: patient tolerated procedure well with no complications SIGNATURE: DEION Tom PATIENT NAME: Jemima Bradford DATE: June 13, 2022 TIME: 9:12 AM CSN: [id number] NoteHNO ID: [id number] Author: DEION Tom Service: ? Author Type: Screedman/Laborer Type: Anesthesia Procedure Notes Filed: 06/13/2022 9:12 AM Note Text: ANESTHESIOLOGY PROCEDURE NOTE PIV General Information Procedure Start Time/Medication Administration: 06/13/2022 8:22 AM Patient Location: OR Staffing Anesthesiologist: Ra Starr DO CAA: DEION Tom Performed by: ARASELI Preparation Sterility Preparation: hand hygiene performed prior to procedure, surgical cap used, mask used, skin prep agent completely dried prior to procedure Site Prep: Chloraprep Procedure Details Indication: need for IV access Needle Size/Type: 18 gauge angiocath Orientation: Right Location: Forearm Imaging Guidance Used: No SIGNATURE: DEION Tom PATIENT NAME: Jemima Bradford DATE: June 13, 2022 TIME: 9:12 AM CSN: [id number] NoteHNO ID: [id number] Author: DEION Tom Service: ? Author Type: Screedman/Laborer Type: Anesthesia Procedure Notes Filed: 06/13/2022 9:04 AM Note Text: ANESTHESIOLOGY PROCEDURE NOTE Airway General Information Procedure Start Time/Medication Administration: 06/13/2022 8:08 AM Patient location during procedure: OR Staffing Anesthesiologist: DO ARASELI Arrington: DEION Tom Student: JOSE Pride Performed by: ARASELI student Indications and Patient Condition Indications for airway management: anesthesia and airway protection Preoxygenated: yes anesthesia circuit Patient position: sniffing Method: asleep Difficult Mask: No Final Airway Details Final airway type: endotracheal airway Final Endotracheal Airway: ETT - double lumen left Cuffed: yes Successful intubation technique: video laryngoscopy Devices used: intubating stylet and Phelps Endotracheal tube insertion site: oral Blade: Nathan Blade size: #3 ETT DL size (fr): 37 Measured from: lips Measurement (cm): 27 Placement verified by: bronchoscopy and capnometry Cormack-Lehane Classification: grade I - full view of glottis Number of attempts at approach: 1 Comments JACKIE placed with Phelps MAC 3 blade. JACKIE placement confirmed by ARASELI and Dr. Starr via FOB. Bronchial cuff inflated under FOB visualization. SIGNATURE: DEION Tom PATIENT NAME: Jemima Bradford DATE: June 13, 2022 TIME: 8:32 AM CSN: [id number] NoteHNO ID: [id number] Author: Darryn Bernal DO Service: Pain Management Author Type: Resident Type: Anesthesia Procedure Notes Filed: 06/13/2022 10:48 AM Note Text: Attestation signed by Derrick Bloom DO at 06/13/2022 12:15 PM Attending Note TEACHING PHYSICIAN NOTE OF PERSONAL INVOLVEMENT IN CARE: I have personally seen and examined the patient and performed the medical decision-making components. I have reviewed the resident's documentation and verified the findings in the note as written. Any additions or changes have been made by myself. Signature: Derrick Bloom DO Date: 06/13/2022 Time: 12:15 PM ANESTHESIOLOGY PROCEDURE NOTE Peripheral Nerve Block General Information Procedure Start Time/Medication Administration: 06/13/2022 7:24 AM Procedure End time: 06/13/2022 7:34 AM Patient location during procedure: pre-op Timeout Performed Pre-procedure: timeout performed Consent Obtained: Yes Patient identity confirmed: arm band Reason for block: post-op pain management/at surgeon's request Staffing Anesthesiologist: Derrick Bloom DO Resident: Darryn Bernal DO Performed by: resident and anesthesiologist Preparation Sterility Preparation: hand hygiene performed prior to procedure, sterile gloves, drapes, and procedure tray, surgical cap used, mask used, sterile drape used during line insertion, skin prep agent completely dried prior to procedure Sterility Technique Not Completely Performed Due to Extreme Emergency: No Site Prep: Chloraprep Procedure Details Patient Position: sitting Monitoring: Pulse OX, EKG and NIBP Block Type Trunk: paravertebral block Left Sensory Level: T5 and T7 Laterality: left Injection Technique: single-shot Ultrasound Guided: Yes Image in Chart: yes Local Infiltration: Yes Needle Needle Type: echogenic and stimulating Needle Gauge: 21 G Needle Length: 100 mm Needle Localization: ultrasound Assessment Injection assessment: negative aspiration, no paresthesia on injection, incremental injection and local visualized surrounding nerve on ultrasound Paresthesia: none Post-Procedure Neuro Exam Expected Regional Anesthesia: Yes Medications Administered Bupivacaine (PF) 0.25 % (2.5 mg/mL) injection (SENSORCAINE MPF), 20 mL bupivacaine liposome (PF) 1.3 % (13.3 mg/mL) injection (EXPAREL), 266 mg Comments Lung sliding present throughout pre and post block SIGNATURE: Darryn Bernal DO PATIENT NAME: Jemima Bradford DATE: June 13, 2022 TIME: 7:57 AM CSN: [id number] Miscellaneous Notes* Telephone Encounter - Deandra Melchor - 06/11/2022 2:59 PM ESTSummary: Research Outreach GUARDIAN IRB# [id number] IRB # [id number] Tight perioperative blood pressure management to reduce serious cardiovascular, renal,and cognitive complications: The GUARDIAN trial PI: Dileep Luna MD, ALF, FASA. Outcomes Research Department. Anesthesia [place]. [facility]. This is a research study note. Patient assessments recorded here should not guide either clinical care or clinical decision-making. I spoke with Jemima J Esteebrittany regarding eligibility for the Guardian study. The background, rationale, hypotheses, study related procedures, known risks, potential benefits, and alternatives to research participation were discussed at length per the study phone script. The patient will consider participating in the study and would like to read the study related materials to know more details about the study. I have confirmed that the e-mail address on file is the current one and is okay to receive study related materials there. We will send the informed consent today. Deandra Melchor Research Semiconductor Processing Technician Department of OUTCOMES RESEARCH Anesthesiology [place] documented in this encounterK[facility]22 Instructions* Patient Instructions* Mitzi Amaral MD - 06/04/2022 9:20 AM EST Operation scheduled on 06/13/22. documented in this encounterK[facility]12-[facility]-2022 Miscellaneous Notes* Telephone Encounter - Natasha Kyle RN - 06/04/2022 6:29 AM EST Closing encounter, see scanned documents. * Telephone Encounter - Natasha Kyle RN - 06/01/2022 9:42 AM EST PAT OV on 05/30/22, per PAT OVN : (Copied and pasted below): Letter faxed to both Dr Kendy Holley and Dr Sharla De Oliveira for cardiac optimization and pre op recommendations for Apixaban (Eliquis) and ASA. May 30, 2022 3:01 PM I have attempted to call the office of Dr Sharla De Oliveira. Left a VM for the [place], requesting a call back to check status of the letter. Direct number provided. I have contacted the office of Dr. Gambino. Name and of the pt verified.Office advised to re-fax letter to the [place] office at [phone]. Office advised last OV was on 05/15 at 3pm at the [place] office, and pt saw . Office staff also advised 05/18 ov was cancelled with - no records records recent visit. Letter faxed as advised. Natasha Kyle RN June 01, 2022 9:58 AM documented in this encounterK[facility]12-[facility]-2022 NoteHNO ID: [id number] Author: Manisha Benavides [employer] Service: Nuclear Medicine Author Type: Protection Agent Type: Progress Notes Filed: 06/01/2022 9:48 AM Note Text: RADIOLOGY SERVICE PROGRESS NOTE SERVICE DATE: 06/01/2022 SERVICE TIME: 9:47 AM PATIENT IDENTITY VERIFICATION COMPLETED USING TWO (2) STANDARD IDENTIFIERS: Name and Date of confirmed by patient verbally FALL SCREENING: Has the patient had 2 falls in the last year or 1 fall with injury or currently using an Ambulatory Assistive Device (Walker, Cane, Wheelchair, Crutches, etc.)? No PATIENT GENDER DATA: .female : No ALLERGIES: Reviewed and unchanged MEDICATIONS REVIEWED: Not applicable PATIENT RELEVANT IMPLANT DATA REVIEWED: Not Applicable CREATININE: Creatinine Date Value Ref Range Status 05/30/2022 1.25 (H) 0.58 - 0.96 mg/dL Final 08/10/2021 1.26 (H) 0.58 - 0.96 mg/dL Final 04/06/2021 1.41 (H) 0.58 - 0.96 mg/dL Final Estimated Glomerular Filtration Rate Date Value Ref Range Status 05/30/2022 43 (L) >=60 mL/min/1.73m? Final Comment: Estimated Glomerular Filtration Rate (eGFR) is calculated using the 2020 CKD-EPI creatinine equation. This equation utilizes serum creatinine, sex, and age as parameters. The creatinine assay has traceable calibration to isotope dilution-mass spectrometry. Refer to KDIGO guidelines for clinical interpretation. In patients with unstable renal function, e.g. those with acute kidney injury, the eGFR may not accurately reflect actual GFR. eGFR- Date Value Ref Range Status 08/10/2021 49 Final P.O.C.T. RESULTS: N/A June 01, [address] PERFORMED: No IV SITE: Ambulatory: A peripheral IV was started in the Right antecubital site with a Angio cath: 22 gauge. POST EXAM PIV STATUS: Discontinued PROCEDURE TYPE: NM INJECT: Lung Quant. 6.0 mCi Tc99m MAA. No other medications given.. ADMINISTRATION TIME: 9:43 PATIENT DISCHARGED TO: Ambulatory patient, left [place] department area. A Diagnostic radioactive procedure has taken place, with no further precautions necessary other than routine body substance precautions. More information regarding radiation safety can be found using this link: [email or web address] SIGNATURE: Manisha Benavides [employer] PATIENT NAME: Jemima Bradford DATE: June 01, 2022 TIME: 9:47 AM PAGER/CONTACT #:[facility] [id number] History of Present illness Narrative* Mitzi Amaral MD - 06/01/2022 11:30 AM EST REASON FOR EVALUATION: Follow up. Sign surgical consent. HPI: Jemima Bradford is a very pleasant 82-year old female who is a former 3.5+ pack year smoker. 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 She also has a long history of intermittent shortness of breath. Recently, she noticed increasing shortness of breath/dyspnea on exertion. On 04/04/2022 she had a chest x-ray and VQ scan which were not revealing. She had a CT chest on 04/04/22 that showed a scarlike opacity in the left upper lobe measuring 1.5 x 1.3 cm. Comparison with a CT chest in December 2019 revealed a scarlike lesion in the area measuring 1.1 x 0.8 cm. PET scan on 04/16/22 showed that the left upper lobe nodule was hypermetabolic, SUV 3.7. There was no other uptake appreciated. 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 MRI brain on 05/02/22 shows no evidence for metastatic disease. The patient was referred to me to discuss potential surgical resection of her newly diagnosed clinical stage I adenocarcinoma in her left upper lobe. The patient was agreeable to surgical resection. I recommended appropriate pre- operative testing and a follow up visit with me to discuss the test results, further discuss operation and sign consent forms for operation. Since last seen, the patient reports feeling well. She has no complaints today. ALLERGIES, MEDICATIONS, PAST MEDICAL HISTORY, PAST SURGICAL HISTORY, SOCIAL HISTORY, FAMILY HISTORYAND REVIEW OF SYSTEMS REVIEWED. THERE ARE NO CHANGES. REVIEW OF SYSTEMS: A 14-point review of systems was performed. All pertinent positives are listed in the HPI. All other systems reviewed are negative. PHYSICAL EXAM: Vitals reviewed. General: alert, oriented, no distress HEENT: PERRLA, EOMI, anicteric, oropharynx unremarkable. Neck: no adenopathy. Resp: clear to ausculation bilaterally. Chest: no deformity. Cardiac: regular rate and rhythm, no murmurs, gallops or rubs. Abdomen: soft, non-tender, non-distended, no mass, no organomegaly. Extremities: no edema, cyanosis Neurologic: grossly intact Skin: warm, dry, intact, no lesions DIAGNOSTICS: I have personally reviewed the patient's available diagnotic studies, including: CAROTID DUPLEX 06/01/22: IMPRESSION RIGHT SIDE Common carotid artery: Plaque visualized without evidence of hemodynamically significant stenosis. Internal carotid artery: 20-39% stenosis. Vertebral artery: Patent and antegrade flow noted. Innominate artery: Plaque visualized without evidence of hemodynamically significant stenosis. Subclavian artery: Plaque visualized without evidence of hemodynamically significant stenosis. LEFT SIDE Common carotid artery: Plaque visualized without evidence of hemodynamically significant stenosis. Internal carotid artery: 20-39% stenosis. Vertebral artery: Patent and antegrade flow noted. Subclavian artery: Patent. Technologist: Glenys Zhong RVT Ordering physician: Mitzi Amaral MD Interpreting physician: Triston Jules MD SPLIT LUNG 06/01/22: RESULT: There is heterogeneous tracer uptake throughout the lungs on perfusion scans. Quantitative values are as follows: Right upper lung mean: 34% Right lower lung mean: 23% Total pulmonary perfusion to the right lun%. Left upper lung mean: 23% Left lower lung mean: 16% Total pulmonary perfusion to the left lun%. PFT 05/30/22: PRE-BRONCH POST-BRONCH Pred LLN ULN Actual %Pred Actual %Chng SPIROMETRY FVC (L) 2.56 1.78 3.37 2.83 110 FEV1 (L) 1.94 1.35 2.50 1.90 98 FEV1/FVC 0.77 0.62 0.90 0.67 87 FEF25 (L/sec) 4.21 FEF50 (L/sec) 2.87 1.27 4.48 1.44 50 FEF75 (L/sec) 0.33 0.11 1.01 0.27 81 XWM94-70 (L/sec) 1.54 0.64 2.91 0.89 57 PEF L/s (L/sec) 4.76 3.02 6.50 5.91 124 FIVC (L) 2.74 FIF50 (L/sec) 3.62 PIF (L/sec) 3.85 Time (sec) 9.82 JOSY (L) 0.08 FET PEF (sec) 0.06 DIFFUSION DLCOunc (ml/min/mmHg) 19.48 13.31 25.65 14.54 74 DLunc/VA (ml/min/mmHg 4.09 2.77 5.41 3.32 81 VA (L) 5.14 4.04 6.24 4.38 85 BHT (sec) 11.00 IVC (L) 2.63 6-MINUTE WALK 05/30/22: RESPIRATORY THERAPY SIX MINUTE WALK TEST OXIMETRY REPORT Six Minute Walk Test for This Encounter Oxygen Device Liters FIO2 SpO2% HR Activity Feet Speed (MPH) Flag R/A 100 53 Resting R/A 99 64 Six Minute Walk 1170 2.2 R/A 100 58 Recovery 1 minute post R/A 100 60 Recovery 2 minute post R/A 99 58 Recovery 3 minute post General Information Height Weight Smoking Status Pulse Oximetry Site Oximeter Pre Blood Pressure Post Blood Pressure Total Time Spent (min) 163.8 cm (5' 4.49 ) 84.1 kg (185 lb 6.5 oz) Ex-smoker Forehead Masimo 108/58 119/56 30 _ Distance Walked (meters) Distance Walked (feet) Female Predicted Walk Distance (feet) Female Lower Limit of Normal (feet) Female % Predicted Total Duration Of The Stops (seconds) 356.62 1170 1154.53 698.53 101.3 -- _ Lowest SpO2 During 6 Minute Walk Pre-Boone Dyspnea Rating Pre-Boone Fatigue Rating Post Boone Dyspnea Rating Post Boone Fatigue Rating O2 Supply Carrier Walking Assistance/Device 98 % 1 0 2 0 -- None Six Minute Walk Trend (Previous Encounters) None IMPRESSIONS: Jemima Bradford is a very pleasant 82-year old female who is a former 3.5+ pack year smoker. She has a history of DCIS breast cancer. She also has a long history of intermittent shortness of breath. Recently, she noticed increasing shortness of breath/dyspnea on exertion. On 04/04/2022 she had a chestx-ray and VQ scan which were not revealing. She had a CT chest on 04/04/22 that showed a scarlike opacity in the left upper lobe measuring 1.5 x 1.3 cm. Comparison with a CT chest in December 2019 revealed a scarlike lesion in the area measuring 1.1 x 0.8 cm. PET scan on 04/16/22 showed that the left upper lobe nodule was hypermetabolic, SUV 3.7. There was no other uptake appreciated. 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 MRI brain on 05/02/22 shows no evidence for metastatic disease. The patient was referred to me to discuss potential surgical resection of her newly diagnosed clinical stage I adenocarcinoma in her left upper lobe. The patient was agreeable to surgical resection. I recommended appropriate pre- operative testing and a follow up visit with me to discuss the test results, further discuss operation and sign consent forms for operation. 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 I personally reviewed all available diagnostic studies and documentation. 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 I am recommending surgical resection. Specifically, I discussed left robotic-assisted anatomic left upper lobe segmental resection, possible anatomic left upper lobectomy, mediastinal lymph node dissection, cryoanalgesia procedure possible conversion to left thoracotomy and possible blood transfusion. I did discuss the risks, options, benefits and alternatives in detail with the patient. The patient understands the risks and complications and would like to undergo surgical resection. All of her questions were answered today. The patient signed consent forms for op eration. The patient's operation is scheduled on June 13, 2022. Once again, thank you for your kind referral of Jemima Bradford to me. If you have any questions or if I can be of help to you with any of your other patients, please do not hesitate to contact me. documented in this encounterK[facility]12-02-2022 History of Present illness Narrative* Manisha Benavides, Nuclear Tech - 06/01/2022 10:00 AM EST RADIOLOGY SERVICE PROGRESS NOTE SERVICE DATE: 06/01/2022 SERVICE TIME: 9:47 AM PATIENT IDENTITY VERIFICATION COMPLETED USING TWO (2) STANDARD IDENTIFIERS: Name and Date of confirmed by patient verbally FALL SCREENING: Has the patient had 2 falls in the last year or 1 fall with injury or currently using an Ambulatory Assistive Device (Walker, Cane, Wheelchair, Crutches, etc.)? No PATIENT GENDER DATA: .female : No ALLERGIES: Reviewed and unchanged MEDICATIONS REVIEWED: Not applicable PATIENT RELEVANT IMPLANT DATA REVIEWED: Not Applicable CREATININE: Creatinine Date Value Ref Range Status 05/30/2022 1.25 (H) 0.58 - 0.96 mg/dL Final 08/10/2021 1.26 (H) 0.58 - 0.96 mg/dL Final 04/06/2021 1.41 (H) 0.58 - 0.96 mg/dL Final Estimated Glomerular Filtration Rate Date Value Ref Range Status 05/30/2022 43 (L) >=60 mL/min/1.73m Final Comment: Estimated Glomerular Filtration Rate (eGFR) is calculated using the 2020 CKD-EPI creatinine equation. This equation utilizes serum creatinine, sex, and age as parameters. The creatinine assay has traceable calibration to isotope dilution- mass spectrometry. Refer to KDIGO guidelines for clinical interpretation. In patients with unstable renal function, e.g. those with acute kidney injury, the eGFRmay not accurately reflect actual GFR. eGFR- Date Value Ref Range Status 08/10/2021 49 Final P.O.C.T. RESULTS: N/A June 01, [address] PERFORMED: No IV SITE: Ambulatory: A peripheral IV was started in the Right antecubital site with a Angio cath: 22 gauge. POST EXAM PIV STATUS: Discontinued PROCEDURE TYPE: NM INJECT: Lung Quant. 6.0 mCi Tc99m MAA. No other medications given.. ADMINISTRATION TIME: 9:43 PATIENT DISCHARGED TO: Ambulatory patient, left NM department area. A Diagnostic radioactive procedure has taken place, with no further precautions necessary other than routine body substance precautions. More information regarding radiation safety can be found usingthis link: [email or web address] SIGNATURE: Mike Garcia [employer] PATIENT NAME: Jemima Bradford DATE: June 01, 2022 TIME: 9:47 AM PAGER/CONTACT #: documented in this encounterK[facility]11-30-2022 History of Present illness Narrative* DELFINO Arriola - 05/30/2022 4:04 PM EST PULM FUNCTION SMARTBLOCK: Provider: Mitzi Amaral MD Assisting Tech: DELFINO Arriola Spirometry: 1 DLCO: 1 6 MW: 1 documented in this encounterKet[facility]11-30-2022 History and physical note * Ambreen Still PA-C - 05/30/2022 2:20 PM EST Images from the original note were not included. HISTORY AND PHYSICAL EXAMINATION SERVICE DATE: 05/30/2022 SERVICE TIME: 1:42 PM PRIMARY CARE PHYSICIAN: Jasmyne Casillas NP, LAMBSKIN TRIMMER REASON FOR VISIT: Jemima Bradford is a 82 year old female who is scheduled for LEFT ROBOTIC ASSISTED UPPER LOBE SEGMENTECTOMY, POSSIBLE LEFT UPPER LOBECTOMY, MEDIASTINAL LYMPH NODE DISSECTION at the request of Dr. Amaral for consultation. My final recommendation will be communicated back to the requesting physician by way of shared medical record or letter. 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 Patient has lung CAwith c/o of SOB since 03/2022. Hx BrCA 05/2020 s/p lumpectomy, radiation and currently taking Anastrozole (Arimidex) . denies other CA. positive hx asthma, JENNIFER compliant with CPAP and former cig smoker quit 1970 with 35 pk/years. Recommended for above surgery. PAST MEDICAL HISTORY Diagnosis Date Aortic valve stenosis mild Arthritis Asthma controlled no inhalers Coronary artery disease Hypercholesteremia Hypertension Polymyalgia rheumatica (HCC) PAST SURGICAL HISTORY Procedure Laterality Date APPENDECTOMY 07/01/1978 ARTHROSCOPY KNEE MEDIAL RELEASE 2002,2010 rt & Lt knee ARTHRP KNE CONDYLE&PLATU MEDIAL&LAT COMPARTMENTS Right 07/01/2013 right x2 BREAST LUMPECTOMY HX BUNIONECTOMY, LAPIDUS-TYPE 07/01/2010 rt toe CHOLECYSTECTOMY 07/01/2005 COLONOSCOPY & POLYPECTOMY 2004, 2005, 2009 x 3 CYSTO LASER TX URETERAL CALC 07/01/2009 stent placement CYSTO W/RETROGRADE x 6 D&C (INCOMPLETE AB), ANY TRIMESTER 07/01/1974 EXCISE EXCESS SKIN TISSUE,ABDOMEN 07/01/1994 Abdominalplasty LITHOTRIPSY PROC UNILATERAL 07/01/1985 rt kidney PAST SURGICAL HISTORY OF 12/03/2019 CABG 1v, cryomaze and AVr REMV CATARACT EXTRACAP,INSERT LENS STENT PLACEMENT 07/01/2003 LAD TONSILLECTOMY HX as child FAMILY HISTORY Problem Relation Age of Onset Heart Mother age 89 Diabetes Mother Coronary Artery Disease Mother Pancreatic Cancer Mother Heart Father age 75 Diabetes Father Stroke Father Breast Cancer Sister Breast Cancer Sister Arthritis Brother Diabetes Brother Heart disease Brother other (Bladder cancer) Brother Pancreatic Cancer Maternal Aunt SOCIAL HISTORY: Social History Tobacco Use Smoking status: Former Packs/day: 0.50 Years: 7.00 Pack years: 3.50 Types: Cigarettes Start date: 06/16/1963 Quit date: 06/16/1971 Years since quittin.9 Passive exposure: Past Smokeless tobacco: Never Vaping Use Vaping Use: Never used Substance Use Topics Alcohol use: No Drug use: No MEDICATIONS: Prior to Admission medications as of 05/30/22 1349 Medication Sig Last Dose Taking anastrozole (ARIMIDEX) 1 mg tablet Take 1 tablet by mouth once daily. Taking Yes levothyroxine (SYNTHROID) 50 mcg tablet levothyroxine 50 mcg tablet TAKE 1 TABLET BY MOUTH DAILY FOR HYPOTHYROIDISM Taking Yes apixaban (ELIQUIS) 5 mg tab(s) Eliquis 5 mg tablet Take 1 tablet twice a day by oral route for 90 days. Taking Yes calcium carbonate (CALTRATE) 600 mg calcium (1,500 mg) tab 600 mg. Taking Yes melatonin 10 mg tab 10 mg. Taking Yes aspirin, enteric coated (ASPIRIN, ENTERIC COATED) 81 mg EC tablet Take 81 mg by mouth once daily. Taking Yes rosuvastatin (CRESTOR) 40 mg tablet Take 40 mg by mouth once daily. Taking Yes furosemide (LASIX) 40 mg tablet Take 40 mg by mouth once daily. Taking Yes spironolactone (ALDACTONE) 25 mg tablet Take 25 mg by mouth once daily. Taking Yes esomeprazole (NEXIUM) 20 mg capsule Take 20 mg by mouth as directed. Twice per week Taking Yes metoprolol tartrate, short acting, (LOPRESSOR) 25 mg tablet Take 1 tablet by mouth twice daily. Taking Yes nitroglycerin sublingual (NITROQUICK) 0.4 mg SL tablet Dissolve 1 tablet under the tongue every 5 minutes as needed. Taking Yes COQ10, UBIQUINOL, ORAL Take 1 tablet by mouth once daily. Taking Yes Chromium Picolinate 500 mcg cap Take 1 tablet by mouth once daily. Taking Yes MAGNESIUM ORAL Take 1 tablet by mouth once daily. 600mg Taking Yes ZAFIRLUKAST 20 mg tablet Take 20 mg by mouth once daily. Taking Yes No medication comments found. CURRENT ALLERGIES: ALLERGIES Allergen Reactions Biaxin [Clarithromy* Unknown Contrast Dye Shortness of Breath Nickel Unknown Nitrous Oxide Vomiting Synvisc [Hylan G-F * Swelling Thorazine [Chlorpro* Rash Covid Immunization Dates COVID-19 VACCINE (Series Information) Completed 04/19/2022 Imm Admin: COVID-19 booster vaccine, age 12+ yr, bivalent (MODERNA) 01/19/2022 Imm Admin: COVID-19 original vaccine, age 12+ yr, monovalent (28msec - JONES TOP) 03/28/2021 Imm Admin: COVID-19 original vaccine, age 12+ yr, monovalent (28msec - PURPLE TOP) 08/19/2020 Imm Admin: COVID-19 vaccine (UNSPECIFIED) 08/19/2020 Imm Admin: COVID-19 original vaccine, age 12+ yr, monovalent (28msec - PURPLE TOP) Only the first 5 history entries have been loaded, but more history exists. REVIEW OF SYSTEMS: positive findings are BOLD PAIN ASSESSMENT: General: No weight loss, malaise or fevers. Neuro: CVA 01/2016 no residual deficits. Negative for Seizures Parkinson's Disease Multiple Sclerosis Respiratory: See HPI Cardiovascular: CHF, CAD s/p CABG 1v with AVr, and Croymaze for Afib taking Apixaban (Eliquis) Followed by Dr De Oliveira, last OV 05/15/[address] Gambino Negative for Recent MO Negative for chest pain, orthopnea, PND, dizziness, lightheadedness or syncope. Negative for h/o DVT/PE. Negative for LE edema. GI: No history of GI symptoms or problems. No history of esophageal varices, recent ascites, or ETOH greater than 2 drinks per day. : CKD Negative for dysuria, frequency, incontinence, and hematuria Endocrine: Hypothyroidism. Negative for polyuria, polydipsia, heat or cold intolerance. Negative for goiter. Denies thyroid disease. Denies DM. Hematology: Chronic anti-coagulation / platelet meds (Apixaban (Eliquis) ) No history of bleeding disorders or clotting disorders. Oncology: See HPI Psych: No history of psychiatric symptoms or problems. Musculoskeletal: Joint pain Skin: Negative for lesions, rash and itching. Objective PHYSICAL EXAM: VITALS: BP 115/74 Pulse 55 Temp (Src) 98.8 (Temporal) Resp 18 Ht 5' 4 (1.63m) Wt 183 lb (83.0kg) SpO2 98% BMI 31.40 kg/(m^2). General: Alert and oriented, No acute distress Skin: Normal color, no rash, no lesions. HEENT: EOM, pupils equal, round and reactive. Cardiovascular: Normal S1 & S2, 2/6 blowing murmurs heard RUSB and LUSB. no rubs,or gallops. NoJVD. Pulse regular. Lungs: Normal breath sounds, no wheezes or crackles. Abdomen: Soft, non-tender, no rigidity. Extremities: No deformity, no edema or tenderness, no joint swelling or clubbing. Neurological: Normal cognition and motor skills. Pulses: Carotid and radial pulses normal +2. Diagnostic tests reviewed for today's visit: Lab Value Units Date High Low HB 12.7 g/dL 05/30/2022 15.5 11.5 HCT 39.4 % 05/30/2022 46.0 36.0 WBC 6.51 k/uL 05/30/2022 11.00 3.70 PLT 177 k/uL 05/30/2022 400 150 NA 142 mmol/L 05/30/2022 144 136 K 3.9 mmol/L 05/30/2022 5.1 3.7 GLUC 102 mg/dL 05/30/2022 99 74 BUN 21 mg/dL 05/30/2022 21 7 CREAT 1.25 mg/dL 05/30/2022 0.96 0.58 PTSEC 11.3 sec 05/30/2022 13.0 9.7 INR 1.1 no uni* 05/30/2022 1.3 0.9 APTT 25.6 sec 05/30/2022 32.4 23.0 ALT 14 U/L 05/30/2022 38 7 AST 26 U/L 05/30/2022 35 13 TBILI 0.6 mg/dL 05/30/2022 1.3 0.2 TSH No results within date range. Lab Value Units Date High Low HCGQT No results within date range. UHCG No results within date range. HCG, BODY* No results within date range. Lab Value Units Date High Low ABORHD No results within date range. ABSCREEN No results within date range. Hemoglobin A1C (%) Date Value 07/14/2015 5.9 Most recent EKG 05/15/2022 Most recent Echo 10/04/2021 (found in care everywhere) CONCLUSIONS Summary Left ventricle is normal in [...] Would repeat echo in 1 year. Signature Most recent CXR Most recent PFT's Most recent Carotid 06/01/2022 Assessment/Plan 1. Pre-op examination surgery scheduled for 06/13/2022 2. Cerebrovascular accident (CVA), unspecified mechanism (HCC) 01/2016 s/p angiogram and resection of clot no residual deficits 3. Former smoker quit smoking 1970 with 35 pk/years 4. JENNIFER (obstructive sleep apnea) compliant 5. Mild persistent asthma without complication chronic unchanged taking Zafirlukast 6. Chronic congestive heart failure, unspecified heart failure type (HCC) ECHO 09/2021 Global left ventricular systolic function is normal with an estimated ejection fraction of 50-55 % . denies leg swelling and can lay flat continue Furosemide, Spironolactone (Aldactone) 7. Atherosclerosis of elem coronary artery of elem heart without angina pectoris without MO, s/p PCI 2003 then CABG 1v during AVr 2019. taking ASA 8. Hypercholesteremia stable continue medications 9. Paroxysmal atrial fibrillation (HCC) s/p ablation. s/p Croyomaze during open heart AVr 2019 RRR today pulse 55 10. Hx of aortic valve repair 2020 ECHO 09/2021 Mild aortic stenosis with mean gradient of 14 mmHg 2 blowing systolic murmur heard RUSB and LUSB 11. Mitral valve problem ECHO 09/2021 Moderate to severe mitral regurgitation. 12. Chronic kidney disease, unspecified CKD stage BUN 20, creatine 1.12 and GFR 49 as of 03/2022 13. 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 currently taking Anastrozole (Arimidex) METS: Walk a block or two on level ground (2.75 METs) Patient denies any chest pain or undue shortness of breath with the above physical activity. ASA Class: 4 ANESTHESIA FINDINGS: Intubation History: No history of difficult intubation Significant Anesthesia Considerations: None - 20 years ago nitrous oxide caused nausea and vomiting. Airway Exam: General: Normal appearance Body mass index is 31.41 kg/m . Mallampati Score is CLASS II ULBT: Class I - Lower incisors can bite the upper lip above the renzo line Neck: Normal appearance and function, Distance from hyoid to mentum during neck extension is at least 3 finger breaths Mouth: Normal tongue size and Mouth opening greater than 2 finger breaths Dentition: Caps/crowns Airway History: No history of difficult intubation STOP BANG Score: JENNIFER uses CPAP/BiPAP PLAN This patient is optimally prepared for surgery pending PFTs - preliminary results in epic, CXR and US carotid - bothscheduled 06/[address] Kendy Holley and Dr Sharla De Oliveira for cardiac optimization and pre op recommendations for Apixaban (Eliquis) and ASA. May 30, 2022 3:01 PM CONSULTS: The following consults have been initiated at this time: Cardiology -optimization and pre op recommendations for Apixaban (Eliquis) and ASA The Following Tests/Procedures Have Been Initiated: Orders placed by surgeon - 04/15. I recommended to be completed today US carotid, CXR, PFT Orders placed today - Urine culture . I recommended to be completed today EKG completed 05/15/2022 Planned Anesthetic: General Instructions Given to Patient: Instructions located in the after visit summary. Patient given verbal and written preop instructions and voices comprehension and compliance. SIGNATURE: Ambreen Still PA-C PATIENT NAME: Jemima Bradford DATE: May 30, 2022 TIME: 1:42 PM documented in this encounterK[facility]11-29-2022 Instructions* Patient Instructions* Ambreen Still PA-C - 05/29/2022 9:16 AM EST PATIENT PREOPERATIVE INSTRUCTIONS No ref. provider found has scheduled you for your procedure at this surgery center: [facility]: [phone] --[id number] [id number]. Please check in on the1st floor at registration desk 6. - Your surgeon ordered lab work which should be completed today from 05/16 and US carotid scheduledfor 06/01 Arrival Time for Surgery: - The Surgery Center or hospital where you are having surgery will call the afternoon before surgery (or Saturday for Saturday surgery) with a scheduled arrival time. - If you have not heard by 4 pm, please contact the surgery center above. Please be aware that emergency situations arise, which may delay or change your surgical time. If this happens, we will notify you as soon as possible and regret any inconvenience. Please read below carefully for your personalized instructions. Dietary Restrictions: - No solid food after midnight. - You may have 12 ounces of clear liquids (water, clear juices such as apple juice or gatorade, carbonated beverages, clear tea, black coffee, jello) until 2 hours before scheduled arrival at facility. Medications: Unless instructed differently below, stay on all of your medications until your surgery. Approved medications to take the morning of surgery with a sip of water: Synthroid (Levothyroxine) Metoprolol (lopressor) Zafirlukast If you start any new medications after today's visit, please contact the surgeon's office. Blood Thinning Medications: - Stop Vitamin E, ALL multi-vitamins, herbals and dietary supplements 7 days before surgery. - You may take Tylenol (Acetaminophen) or any of your pain medications that do not contain aspirin or NSAIDS as needed. - Hold Eliquis 2 or 3 days prior to surgery Important Reminders: - If you use CPAP/BIPAP, bring the machine with you to the surgery center. - If you are prescribed inhalers for breathing, continue using them. - Candy, mints, and tobacco products are NOT permitted the morning of surgery. - Hearing aids, dentures and glasses may be worn the morning of surgery. - NO jewelry, body piercings, makeup, hairpins or contacts are to be worn the day of surgery. If you develop symptoms such as a fever, cold, or flu, or have other changes to your health within TWO DAYS of scheduled surgery or the morning of surgery, please contact the surgery center above. Personal Belongings: -Please have photo ID and insurance cards. -If you do not have a copy of advance directives on file with us, please bring a copy with you on the day of surgery. - Leave ALL valuables and money at home or with family members. If you already have an Advance Directive, please fax a copy to [phone] or email to for it to be added to your chart. If you do not have an Advance Directive, you can find the appropriate form and more information at [email or web address]. We recommend that youcomplete the Advance Directive form found on the website and bring it with you the day of your surgery. It can be witnessed and scanned into your chart that day. Ambreen Still PA-C documented in this encounterK[facility]11-23-2022 Miscellaneous Notes* Telephone Encounter - Lauren Velasco - 05/23/2022 4:28 PM EST Pt called and wanted her covid test moved to [facility] since it is closer for her. Sent order for pre-procedural covid test via fax 05/23/2022 (scanned in chart). Lauren Velasco documented in this encounterKettering [facility]11-23-2022 Miscellaneous Notes* Telephone Encounter - Pratibha Sheppard - 05/23/2022 3:11 PM EST Patient called stating that she wants to have her Covid test done at [place], they only to the self swab which has at least a 3 day turn around prior to the surgery. It was explained to the patient that we could not guarantee that the test would not be resulted by 06/13 if she has it done on 06/11as a self swab. She asked about having it done at [place] instead, she will get the information onhow to get this scheduled and call us back. Patient does not want to go to [place] for the Covid test prior to his procedure documented in this encounterKettering [facility]11-17-2022 Miscellaneous Notes* Telephone Encounter - Jennifer Welch RN - 05/17/2022 1:02 PM EST Pt notified and verbalizes understanding. Jennifer Welch RN * Telephone Encounter - Bryanna Adan MD - 05/17/2022 12:33 PM EST If she has not had a prior pneumonia vaccine Prevnar is reasonable. However, I typically recommend the patient discuss specifics with her high school tutor or PCP. Neil Weller * Telephone Encounter - Jennifer Welch RN - 05/17/2022 12:17 PM EST Do you recommend the pt get the new Prevnar vaccine? Jennifer Welch RN documented in this encounterKettering [facility]11-16-2022 NoteHNO ID: [id number] Author: Mitzi Amaral MD Service: ? Author Type: Physician Type: Progress Notes Filed: 05/16/2022 2:44 PM Note Text: REASON FOR EVALUATION: Clinical stage I adenocarcinoma in the left upper lobe. HPI: Jemima Bradford is a very pleasant 82-year old female who is a former 3.5+ pack year smoker. She has a history of DCIS breast cancer. She also has a long history of intermittent shortness of breath. Recently, she noticed increasing shortness of breath/dyspnea on exertion. On 04/04/2022 she had a chest x-ray and VQ scan which were not revealing. She had a CT chest on 04/04/22 that showed a scarlike opacity in the left upper lobe measuring 1.5 x 1.3 cm. Comparison with a CT chest in December 2019 revealed a scarlike lesion in the area measuring 1.1 x 0.8 cm. PET scan on 04/16/22 showed that the left upper lobe nodule was hypermetabolic, SUV 3.7. There was no other uptake appreciated. 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 MRI brain on 05/02/22 shows no evidence for metastatic disease. The patient has been referred to me today to discuss potential surgical resection of her newly diagnosed clinical stage I adenocarcinoma in her left upper lobe. Clinically the patient feels fairly well. Her main complaint is chronic shortness of breath or dyspnea exertion. Occasional dry cough, no hemoptysis. No unusual pain or weight loss. ALLERGIES: No known drug allergies MEDICATIONS: Current Outpatient Medications on File Prior to Visit Medication Sig hydrOXYchloroQUINE (PLAQUENIL) 200 mg tablet ALTERNATE BETWEEN 1 TABLET BY MOUTH TWICE DAILY AND 1 TABLET ONCE DAILY WITH FOOD. GET YEARLY EYE EXAM. (Patient not taking: No sig reported) cetirizine (ZYRTEC) 10 mg tablet Cetirizine (Zyrtec) 10 mg Tablet Active 10 MG PO Daily February 06, 2018 5:01pm (Patient not taking: Reported on 05/10/2022) anastrozole (ARIMIDEX) 1 mg tablet Take 1 tablet by mouth once daily. levothyroxine (SYNTHROID) 50 mcg tablet levothyroxine 50 mcg tablet TAKE 1 TABLET BY MOUTH DAILY FOR HYPOTHYROIDISM apixaban (ELIQUIS) 5 mg tab(s) Eliquis 5 mg tablet Take 1 tablet twice a day by oral route for 90 days. calcium carbonate (CALTRATE) 600 mg calcium (1,500 mg) tab 600 mg. melatonin 10 mg tab 10 mg. predniSONE (DELTASONE) 5 mg tablet Take 1 mg by mouth once daily. 1 every other day (Patient not taking: No sig reported) aspirin, enteric coated (ASPIRIN, ENTERIC COATED) 81 mg EC tablet Take 81 mg by mouth once daily. rosuvastatin (CRESTOR) 40 mg tablet Take 40 mg by mouth once daily. furosemide (LASIX) 40 mg tablet Take 40 mg by mouth once daily. spironolactone (ALDACTONE) 25 mg tablet Take 25 mg by mouth once daily. esomeprazole (NEXIUM) 20 mg capsule Take 20 mg by mouth as directed. Twice per week metoprolol tartrate, short acting, (LOPRESSOR) 25 mg tablet Take 1 tablet by mouth twice daily. nitroglycerin sublingual (NITROQUICK) 0.4 mg SL tablet Dissolve 1 tablet under the tongue every 5 minutes as needed. COQ10, UBIQUINOL, ORAL Take 1 tablet by mouth once daily. Chromium Picolinate 500 mcg cap Take 1 tablet by mouth once daily. MAGNESIUM ORAL Take 1 tablet by mouth once daily. 600mg ZAFIRLUKAST 20 mg tablet Take 20 mg by mouth once daily. sodium chloride 0.9 % nebulizer solution Use 3 mL via nebulizer as needed. albuterol 2.5 mg /3 mL (0.083 %) nebulizer solution Use 2.5 mg via nebulizer every 6 hours as needed. No current facility-administered medications on file prior to visit. PAST MEDICAL HISTORY: HISTORIES PAST MEDICAL HISTORY Diagnosis Date Aortic valve stenosis mild Arthritis Asthma controlled no inhalers Coronary artery disease Hypercholesteremia Hypertension Polymyalgia rheumatica (HCC) PAST SURGICAL HISTORY Procedure Laterality Date APPENDECTOMY 07/01/1978 ARTHROSCOPY KNEE MEDIAL RELEASE 2002,2010 rt AND Lt knee ARTHRP KNE CONDYLEANDPLATU MEDIALANDLAT COMPARTMENTS Right 07/01/2013 right x2 BREAST LUMPECTOMY HX BUNIONECTOMY, LAPIDUS-TYPE 07/01/2010 rt toe CHOLECYSTECTOMY 07/01/2005 COLONOSCOPY AND POLYPECTOMY 2004, 2005, 2009 x 3 CYSTO LASER TX URETERAL CALC 07/01/2009 stent placement CYSTO W/RETROGRADE x 6 DANDC (INCOMPLETE AB), ANY TRIMESTER 07/01/1974 EXCISE EXCESS SKIN TISSUE,ABDOMEN 07/01/1994 Abdominalplasty LITHOTRIPSY PROC UNILATERAL 07/01/1985 rt kidney REMV CATARACT EXTRACAP,INSERT LENS STENT PLACEMENT 07/01/2003 LAD TONSILLECTOMY HX as child Social History Tobacco Use Smoking status: Former Packs/day: 0.50 Years: 7.00 Pack years: 3.50 Types: Cigarettes Start date: 06/16/1963 Quit date: 06/16/1971 Years since quittin.9 Passive exposure: Past Smokeless tobacco: Never Vaping Use Vaping Use: Never used Substance Use Topics Alcohol use: No Drug use: No FAMILY HISTORY Problem Rela (more content not included)...[id number]ructions* Patient Instructions* Kaity Amaral - 05/16/2022 10:13 AM EST Our office will call you to schedule your: Carotid Duplex Pulmonary function testing 6 minute walk test Split lung function test COVD test Pre-anesthesia testing (PAT appointment) Operation We will obtain cardiac clearance from Dr. Gottlieb. documented [facility]22 History of Present illness Narrative* iMtzi Amaarl MD - 05/16/2022 10:00 AM EST Images from the original note were not included. REASON FOR EVALUATION: Clinical stage I adenocarcinoma in the left upper lobe. HPI: Jemima Bradford is a very pleasant 82-year old female who is a former 3.5+ pack year smoker. 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 She also has a long history of intermittent shortness of breath. Recently, she noticed increasing shortness of breath/dyspnea on exertion. On 04/04/2022 she had a chest x-ray and VQ scan which were not revealing. She had a CT chest on 04/04/22 that showed a scarlike opacity in the left upper lobe measuring 1.5 x 1.3 cm. Comparison with a CT chest in December 2019 revealed a scarlike lesion in the area measuring 1.1 x 0.8 cm. PET scan on 04/16/22 showed that the left upper lobe nodule was hypermetabolic, SUV 3.7. There was no other uptake appreciated. 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 MRI brain on 05/02/22 shows no evidence for metastatic disease.The patient has been referred to me today to discuss potential surgical resection of her newly diagnosed clinical stage I adenocarcinoma in her left upper lobe. Clinically the patient feels fairly well. Her main complaint is chronic shortness of breath or dyspnea exertion. Occasional dry cough, no hemoptysis. No unusual pain or weight loss. ALLERGIES: No known drug allergies MEDICATIONS: Current Outpatient Medications on File Prior to Visit Medication Sig hydrOXYchloroQUINE (PLAQUENIL) 200 mg tablet ALTERNATE BETWEEN 1 TABLET BY MOUTH TWICE DAILY AND 1 TABLET ONCE DAILY WITH FOOD. GET YEARLY EYE EXAM. (Patient not taking: No sig reported) cetirizine (ZYRTEC) 10 mg tablet Cetirizine (Zyrtec) 10 mg Tablet Active 10 MG PO Daily January 5:01pm (Patient not taking: Reported on 05/10/2022) anastrozole (ARIMIDEX) 1 mg tablet Take 1 tablet by mouth once daily. levothyroxine (SYNTHROID) 50 mcg tablet levothyroxine 50 mcg tablet TAKE 1 TABLET BY MOUTH DAILY FOR HYPOTHYROIDISM apixaban (ELIQUIS) 5 mg tab(s) Eliquis 5 mg tablet Take 1 tablet twice a day by oral route for 90 days. calcium carbonate (CALTRATE) 600 mg calcium (1,500 mg) tab 600 mg. melatonin 10 mg tab 10 mg. predniSONE (DELTASONE) 5 mg tablet Take 1 mg by mouth once daily. 1 every other day (Patient not taking: No sig reported) aspirin, enteric coated (ASPIRIN, ENTERIC COATED) 81 mg EC tablet Take 81 mg by mouth once daily. rosuvastatin (CRESTOR) 40 mg tablet Take 40 mg by mouth once daily. furosemide (LASIX) 40 mg tablet Take 40 mg by mouth once daily. spironolactone (ALDACTONE) 25 mg tablet Take 25 mg by mouth once daily. esomeprazole (NEXIUM) 20 mg capsule Take 20 mg by mouth as directed. Twice per week metoprolol tartrate, short acting, (LOPRESSOR) 25 mg tablet Take 1 tablet by mouth twice daily. nitroglycerin sublingual (NITROQUICK) 0.4 mg SL tablet Dissolve 1 tablet under the tongue every 5 minutes as needed. COQ10, UBIQUINOL, ORAL Take 1 tablet by mouth once daily. Chromium Picolinate 500 mcg cap Take 1 tablet by mouth once daily. MAGNESIUM ORAL Take 1 tablet by mouth once daily. 600mg ZAFIRLUKAST 20 mg tablet Take 20 mg by mouth once daily. sodium chloride 0.9 % nebulizer solution Use 3 mL via nebulizer as needed. albuterol 2.5 mg /3 mL (0.083 %) nebulizer solution Use 2.5 mg via nebulizer every 6 hours as needed. No current facility-administered medications on file prior to visit. PAST MEDICAL HISTORY: HISTORIES PAST MEDICAL HISTORY Diagnosis Date Aortic valve stenosis mild Arthritis Asthma controlled no inhalers Coronary artery disease Hypercholesteremia Hypertension Polymyalgia rheumatica (HCC) PAST SURGICAL HISTORY Procedure Laterality Date APPENDECTOMY 07/01/1978 ARTHROSCOPY KNEE MEDIAL RELEASE 2002,2010 rt & Lt knee ARTHRP KNE CONDYLE&PLATU MEDIAL&LAT COMPARTMENTS Right 07/01/2013 right x2 BREAST LUMPECTOMY HX BUNIONECTOMY, LAPIDUS-TYPE 07/01/2010 rt toe CHOLECYSTECTOMY 07/01/2005 COLONOSCOPY & POLYPECTOMY 2004, 2005, 2009 x 3 CYSTO LASER TX URETERAL CALC 07/01/2009 stent placement CYSTO W/RETROGRADE x 6 D&C (INCOMPLETE AB), ANY TRIMESTER 07/01/1974 EXCISE EXCESS SKIN TISSUE,ABDOMEN 07/01/1994 Abdominalplasty LITHOTRIPSY PROC UNILATERAL 07/01/1985 rt kidney REMV CATARACT EXTRACAP,INSERT LENS STENT PLACEMENT 07/01/2003 LAD TONSILLECTOMY HX as child Social History Tobacco Use Smoking status: Former Packs/day: 0.50 Years: 7.00 Pack years: 3.50 Types: Cigarettes Start date: 06/16/1963 Quit date: 06/16/1971 Years since quittin.9 Passive exposure: Past Smokeless tobacco: Never Vaping Use Vaping Use: Never used Substance Use Topics Alcohol use: No Drug use: No FAMILY HISTORY Problem Relation Age of Onset Heart Mother age 89 Diabetes Mother Coronary Artery Disease Mother Pancreatic Cancer Mother Heart Father age 75 Diabetes Father Stroke Father Breast Cancer Sister Breast Cancer Sister Arthritis Brother Diabetes Brother Heart disease Brother other (Bladder cancer) Brother Pancreatic Cancer Maternal Aunt REVIEW OF SYSTEMS: A 14-point review of systems was performed. All pertinent positives are listed in the HPI. All other systems reviewed are negative. EXAM: Physical Exam Vitals reviewed. Constitutional: General: He is not in acute distress. Appearance: Normal appearance. HENT: Head: Normocephalic and atraumatic. Nose: Nose normal. No congestion or rhinorrhea. Mouth/Throat: Mouth: Mucous membranes are moist. Pharynx: Oropharynx is clear. Eyes: General: No scleral icterus. Extraocular Movements: Extraocular movements intact. Conjunctiva/sclera: Conjunctivae normal. Pupils: Pupils are equal, round, and reactive to light. Neck: Vascular: No carotid bruit. Cardiovascular: Rate and Rhythm: Normal rate and regular rhythm. Pulses: Normal pulses. Heart sounds: Normal heart sounds. Pulmonary: Effort: Pulmonary effort is normal. No respiratory distress. Breath sounds: Normal breath sounds. No stridor. No wheezing, rhonchi or rales. Chest: Chest wall: normal. Abdominal: General: Abdomen is flat. Bowel sounds are normal. There is no distension. Palpations: Abdomen is soft. There is no mass. Tenderness: There is no abdominal tenderness. There is no right CVA tenderness, guarding or rebound. Hernia: No hernia is present. Musculoskeletal: General: No swelling, tenderness, deformity or signs of injury. Normal range of motion. Cervical back: Normal range of motion and neck supple. No rigidity or tenderness. Right lower leg: No edema. Left lower leg: No edema. Lymphadenopathy: Cervical: No cervical adenopathy. Skin: General: Skin is warm and dry. Coloration: Skin is not jaundiced or pale. Findings: No bruising, erythema, lesion or rash. Neurological: General: No focal deficit present. Mental Status: He is alert. Mental status is at baseline. Cranial Nerves: No cranial nerve deficit. Sensory: No sensory deficit. Motor: No weakness. Coordination: Coordination normal. Gait: Gait normal. Deep Tendon Reflexes: Reflexes normal. Psychiatric: Behavior: Behavior normal. Thought Content: Thought content normal. Judgment: Judgment normal. DIAGNOSTICS: I have personally reviewed the patient's available diagnotic studies, including: MRI BRAIN : LEFT UPPER LOBE LUNG BIOPSY 04/25/22: Diagnosis -- LEFT LUNG, UPPER LOBE, CT-GUIDED CORE NEEDLE BIOPSY: - INVASIVE ADENOCARCINOMA CONSISTENT WITH LUNG PRIMARY. CHEST XRAY 04/25/22: Status post left upper lobe biopsy with small surrounding parenchymal hematoma. No pneumothorax. PET 04/11/22: NM VQ SCAN 04/04/22: FINDINGS: There are no perfusion defects. There are no ventilation/perfusion mismatches. CHEST XRAY 04/04/22: Prior internal fixation sternum with left atrial appendage clip. CT CHEST 04/04/22: FINDINGS: PERTINENT POSITIVES: Previous linear scarlike opacity in the left upper lobe measuring 11 x 8 mm [id number] is now more irregularly lobulated and measures 1.5 x 1.3 cm and is suspicious. PERTINENT NEGATIVES: Prior pleural effusions have resolved. COINCIDENTAL FINDINGS: Postoperative changes right breast. Previous internal fixation sternum. Leftatrial appendage clip. Aortic valve prosthesis. Mild radiation change in the right upper lobe is new. Cholecystectomy. Small hiatal hernia. ROUTINE EXAMINATION: Degenerative changes in the spine. No adenopathy. 2D ECHO 10/04/21: FINDINGS Left atrium is severely dilated. Left ventricle is normal in size. Moderate to severe left ventricular hypertrophy. Global left ventricular systolic function is normal with an estimated ejection fraction of 50-55 % . Right atrium is moderately-severely dilated . Right Ventricle :Mildly dilated right ventricular cavity. Mitral Valve:Thickened mitral valve leaflets. Mitral annular calcification is seen. Moderate to severe mitral regurgitation. Aortic Valve: Aortic leaflet calcification with mild stenosis. Peak instantaneous gradient 24 mmHg and mean gradient 14 mmHg. Tricuspid Valve: Normal tricuspid valve leaflets. Moderate to severe tricuspid regurgitation. Estimated right ventricular systolic pressure is 45 mmHg. Pulmonic Valve: Technically difficult visualization of the pulmonic valve, no abnormality seen. Pericardial Effusion: No significant pericardial effusion is seen. Pleural Effusion: No pleural effusion seen. Miscellaneous: Normal aortic root dimension. ECHO 09/14/20: IMPRESSIONS: Jemima Bradford is a very pleasant 82-year old female who is a former 3.5+ pack year smoker. She has a history of DCIS breast cancer. She also has a long history of intermittent shortness of breath. Recently, she noticed increasing shortness of breath/dyspnea on exertion. On 04/04/2022 she had a chestx-ray and VQ scan which were not revealing. She had a CT chest on 04/04/22 that showed a scarlike opacity in the left upper lobe measuring 1.5 x 1.3 cm. Comparison with a CT chest in December 2019 revealed a scarlike lesion in the area measuring 1.1 x 0.8 cm. PET scan on 04/16/22 showed that the left upper lobe nodule was hypermetabolic, SUV 3.7. There was no other uptake appreciated. 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 MRI brain on 05/02/22 shows no evidence for metastatic disease. The patient has been referred to me today to discuss potential surgical resection of her newly diagnosedclinical stage I adenocarcinoma in her left upper lobe. Clinically the patient feels fairly well. Her main complaint is chronic shortness of breath or dyspnea exertion. Occasional dry cough, no hemoptysis. No unusual pain or weight loss. 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 I personally reviewed all available diagnostic studies and documentation. 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 I am recommending surgical resection. Specifically, I discussed left robotic-assisted anatomic left upper lobe segmental resection, possible anatomic left upper lobectomy, mediastinal lymph node dissection, cryoanalgesia procedure possible conversion to left thoracotomy and possible blood transfusion. I did discuss the risks, options, benefits and alternatives in detail with the patient. The patient understands the risks and complications and would like to undergo surgical resection. All of her questions were answered today. My office will schedule left robotic-assisted anatomic upper lobe segmental resection, possible anatomic left upper lobectomy, mediastinal lymph node dissection, cryoanalgesia procedure, possible conversion to left thoracotomy, possible blood transfusion. My office will also schedule her pre-operative testing, including: Bilateral carotid duplex exam, PFT, split lung function testing, six-minute walk test, clearance from cash posting specialist, COVID testing, PAC appointment. I will see the patient in follow up to discuss the test results, further discuss the operation and sign consent forms for operation. I will keep you apprised of Jemima Bradford ongoing evaluation and treatment plans. Once again, thank you for your kind referral of Jemima Bradford to me. If you have any questions or if I can be of help to you with any of your other patients, please do not hesitate to contact me. documented [facility] this [facility]22 Miscellaneous Notes* Telephone Encounter - Gia Clayton RN - 05/10/2022 3:[address] Amaral's office called and pt is scheduled 05/16. Gia Clayton RN * Telephone Encounter - Glenys Tomlinson - 05/10/2022 1:[address] Adan would like to refer pt to Dr. Amaral to evaluate for thoracic surgery. Can you please assist in scheduling a consult? Thank you! documented in this encounterK[facility]11-10-2022 History of Present illness Narrative* Bryanna Adan MD - 05/10/2022 8:03 AM EST PATIENT NAME: Jemima Bradford DATE: 05/10/2022 PRIMARY CARE PHYSICIAN: Jasmyne Casillas CNP ([facility]) OTHER PHYSICIANS: Dr. Keene, Dr. Ferrari ( [facility] Cardiology, [place]), Dr. Pizarro, Dr. Arguelles,Dr. Shaniqua Ellsworth (Pulmonary, [place]) Portions of this encounter note have been copied from my note from 04/12/2022 and has been updated where appropriate, and reflect my current medical decision making from today. CC: This is an 82 year old female with recently diagnosed lung cancer, seen for scheduled follow-up. INTERIM HISTORY: Since the patient's last visit here she underwent a CT directed biopsy of her leftlower lobe lung mass on 04/25/2022, and pathology revealed invasive adenocarcinoma consistent with lung primary. Her previous PET scan showed no evidence of systemic metastasis, and a staging brain MRI was negative. She was seen by her high school tutor (Dr. Shaniqua Ellsworth) and it was felt that her underlying lung function would tolerate surgery, and it was recommended she consider surgery as her primary treatment. On follow-up today she feels well with no new complaints. Mild chronic shortness of breath is unchanged. No new pulmonary symptoms. She has never had hemoptysis. She has a history of smoking, but quit 50 years ago. MEDICATIONS: hydrOXYchloroQUINE (PLAQUENIL) 200 mg tablet ALTERNATE BETWEEN 1 TABLET BY MOUTH TWICE DAILY AND 1 TABLET ONCE DAILY WITH FOOD. GET YEARLY EYE EXAM. (Patient not taking: No sig reported) cetirizine (ZYRTEC) 10 mg tablet Cetirizine (Zyrtec) 10 mg Tablet Active 10 MG PO Daily January 5:01pm anastrozole (ARIMIDEX) 1 mg tablet Take 1 tablet by mouth once daily. levothyroxine (SYNTHROID) 50 mcg tablet levothyroxine 50 mcg tablet TAKE 1 TABLET BY MOUTH DAILY FOR HYPOTHYROIDISM apixaban (ELIQUIS) 5 mg tab(s) Eliquis 5 mg tablet Take 1 tablet twice a day by oral route for 90 days. calcium carbonate (CALTRATE) 600 mg calcium (1,500 mg) tab 600 mg. melatonin 10 mg tab 10 mg. predniSONE (DELTASONE) 5 mg tablet Take 1 mg by mouth once daily. 1 every other day (Patient not taking: No sig reported) aspirin, enteric coated (ASPIRIN, ENTERIC COATED) 81 mg EC tablet Take 81 mg by mouth once daily. rosuvastatin (CRESTOR) 40 mg tablet Take 40 mg by mouth once daily. furosemide (LASIX) 40 mg tablet Take 40 mg by mouth once daily. spironolactone (ALDACTONE) 25 mg tablet Take 25 mg by mouth once daily. esomeprazole (NEXIUM) 20 mg capsule Take 20 mg by mouth as directed. Twice per week (Patient not taking: No sig reported) metoprolol tartrate, short acting, (LOPRESSOR) 25 mg tablet Take 1 tablet by mouth twice daily. nitroglycerin sublingual (NITROQUICK) 0.4 mg SL tablet Dissolve 1 tablet under the tongue every 5 minutes as needed. COQ10, UBIQUINOL, ORAL Take 1 tablet by mouth once daily. Chromium Picolinate 500 mcg cap Take 1 tablet by mouth once daily. MAGNESIUM ORAL Take 1 tablet by mouth once daily. 600mg ZAFIRLUKAST 20 mg tablet Take 20 mg by mouth once daily. sodium chloride 0.9 % nebulizer solution Use 3 mL via nebulizer as needed. albuterol 2.5 mg /3 mL (0.083 %) nebulizer solution Use 2.5 mg via nebulizer every 6 hours as needed. ALLERGIES: Biaxin [Clarithromycin], Contrast Dye, Nickel, Nitrous Oxide, Synvisc [Hylan G-F 20], and Thorazine[Chlorpromazine] PAST MEDICAL HISTORY: PAST MEDICAL HISTORY Diagnosis Date Aortic valve stenosis mild Arthritis Asthma controlled no inhalers Coronary artery disease Hypercholesteremia Hypertension Polymyalgia rheumatica (HCC) PAST SURGICAL HISTORY: PAST SURGICAL HISTORY Procedure Laterality Date APPENDECTOMY 07/01/1978 ARTHROSCOPY KNEE MEDIAL RELEASE 2002,2010 rt & Lt knee ARTHRP KNE CONDYLE&PLATU MEDIAL&LAT COMPARTMENTS Right 07/01/2013 right x2 BREAST LUMPECTOMY HX BUNIONECTOMY, LAPIDUS-TYPE 07/01/2010 rt toe CHOLECYSTECTOMY 07/01/2005 COLONOSCOPY & POLYPECTOMY 2004, 2005, 2009 x 3 CYSTO LASER TX URETERAL CALC 07/01/2009 stent placement CYSTO W/RETROGRADE x 6 D&C (INCOMPLETE AB), ANY TRIMESTER 07/01/1974 EXCISE EXCESS SKIN TISSUE,ABDOMEN 07/01/1994 Abdominalplasty LITHOTRIPSY PROC UNILATERAL 07/01/1985 rt kidney REMV CATARACT EXTRACAP,INSERT LENS STENT PLACEMENT 07/01/2003 LAD TONSILLECTOMY HX as child REVIEW OF SYSTEMS: GENERAL: No weight loss, malaise or fevers. HEENT: Negative for frequent or significant headaches, No changes in hearing or vision, no nose bleeds or other nasal problems RESPIRATORY: Negative for cough, wheezing or shortness of breath. CARDIOVASCULAR: Negative for chest pain, leg swelling or palpitations. GI: Negative for abdominal discomfort, blood in stools or black stools or change in bowel habits : No history of dysuria, frequency or incontinence MUSCULOSKELETAL: Negative for: joint pain or swelling, back pain and muscle pain SKIN: Negative for lesions, rash, and itching. HEMATOLOGY/LYMPHOLOGY: Negative for prolonged bleeding, bruising easily or swollen nodes. NEURO: No history of headaches, syncope, paralysis, seizures or tremors PHYSICAL EXAM: Vitals: BP 125/58 Pulse (!) 52 Temp 36.3 C (97.4 F) (Temporal) Resp 18 Ht 165.1 cm (5' 5 ) Wt 82 kg (180 lb 12.8 oz) SpO2 96% BMI 30.09 kg/m General appearance: well appearing, alert, in no acute distress, well-hydrated, well nourished Skin: skin color, texture, turgor normal, no suspicious rashes or lesions Head: normal Eyes: Anicteric sclera. Pupils are equally round and reactive to light. Extraocular movements are intact. Ears: negative findings: external ears normal to inspection and palpation Oropharynx: negative Neck: Supple, no adenopathy; thyroid symmetric, normal size Lymph Nodes: No Submandibular, cervical, supraclavicular, axillary, or inguinal lymphadenopathy present Breast: Not examined today Back: no tenderness to palpation Lungs: clear to auscultation, no wheezing or rhonchi Heart: Negative. RRR without murmur, gallop, or rubs. No ectopy. Abdomen: Normal abdominal exam, Abdomen soft, non-tender. Bowel sounds normal. No masses, organomegaly Rectal: Not done Extremities: Extremities normal. No deformities, edema, or skin discoloration. Good capillary refill. Musculoskeletal: No joint swelling, deformity, or tenderness. Peripheral pulses: Normal PATHOLOGY: 04/25/2022 CT directed biopsy left upper lung mass ([facility]) Adenocarcinoma consistent with lung primary 06/21/2020 Right breast lumpectomy ([facility]) Ductal carcinoma in situ, low nuclear grade, cribriform and solid types, 1.3 cm in greatest dimension. Posterior margin is within 1 mm from DCIS. ER 99%, HI 99% 06/06/2020 Left breast biopsy ([facility]) Columnar cell change/hyperplasia. Usual ductal hyperplasia. 05/25/2020 Right breast biopsy ([facility]) Ductal carcinoma in situ, nuclear grade 1. ER positive (99%, HI positive (99%) RADIOLOGY/OTHER STUDIES: 05/02/2022 Brain MRI ([facility]) Brain MRI within limits of normal. No signs of intracranial mass or abnormal enhancement. 04/11/2022 PET scan ([facility]) Nodular opacity in the left upper lobe demonstrates moderate uptake. No signs of distant metastases. 04/05/2022 Bilateral diagnostic mammogram/right breast ultrasound ([facility]) Benign, no evidence of malignancy. Normal interval follow-up at 12 months. 04/04/2022 High-resolution chest CT ([facility]) Previous linear scarlike opacity left upper lobe measuring 11 x 8 mm in December 2019 is now irregularly lobulated and measures 1.5 x 1.3 cm and is suspicious. PET scan or biopsy recommended. 06/08/2021 Diagnostic right mammogram and right breast ultrasound ([facility]) 2.2 cm complex fluid collection in the lumpectomy bed at the 5 o'clock position. Could be a postoperative seroma, old hematoma, or abscess. No finding to suggest malignancy in the right breast. 05/31/2021 Bone density DEXA ([facility]) Increasing osteopenia in the hips. Significant loss of bone in the lumbar spine, while remaining within normal limits 02/02/2021 Bilateral Screening Mammogram ([facility]) No evidence of malignancy. Routine follow-up in 1 year recommended. 05/02/2020 Bilateral mammogram ([facility]) Abnormality in the retroareolar area of the right breast 01/22/2020 CT chest without contrast ([facility]) Linear and spiculated soft tissue density left upper lobe of unknown etiology. ASSESSMENT/PLAN: 1. Malignant neoplasm of upper lobe of left lung (HCC) - ICD9: 162.3, ICD10: C34.12 High-resolution chest CT 04/04/2022 revealed a scarlike opacity in the left upper lobe measuring 1.5x 1.3 cm (prior chest CT December 2019 the lesion measured 1.1 x 0.8 cm). PET scan 04/11/2022 revealed uptake in the area consistent with malignancy, but no other abnormalities. CT directed biopsy 04/25/2022 revealed invasive adenocarcinoma consistent with lung primary. Further staging with a brain MRIwas negative. After diagnosis confirmed the patient was seen by her high school tutor (Dr. Shaniqua Ellsworth) and it was felt that her underlying lung function would tolerate surgery, and it was recommended she consider surgery as her primary treatment. At the patient's request we will refer to [facility] thoracic surgery to discuss options. If it is felt that she is not a candidate for surgery radiation therapy with SBRT would be a viable option. We will refer to [facility] thoracic surgery to be seen next week. I will schedule a temporary return visit here in 4 weeks to coordinate care. 2. 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 The patient presented with right breast pain and was found to have an abnormality in the retroareolar area of the right breast. A right breast breast biopsy obtained 05/25/2020 revealed a low-grade ER/HI positive DCIS. The patient also underwent a left breast biopsy on 06/06/2020 which was benign. Genetic testing revealed no evidence of deleterious mutations. 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 Adjuvant hormonal therapy with anastrozole was started July 2020. The patient received adjuvant radiation therapyto the right breast 08/08/2020 through 08/19/2020 (3000 cGy in 5 fractions). At this time she has no evidence of disease. Plans are to continue anastrozole for 5 years total (July 2025). She will undergo a surveillance mammogram yearly. 3. Heart disease - ICD9: 429.9, ICD10: I51.9 History of coronary artery disease and aortic valve stenosis. Status post CABG, aortic valve replacement and cardiac ablation November 2019. History of paroxysmal atrial fibrillation - resolved after herinitial cardiac procedure in November 2019. Apparently the patient developed recurrent atrial fibrillation in August 2020 and underwent an additional ablation 01/04/2021. Currently on Eliquis and aspirin. Co ntinue management per PCP/cardiology. 4. 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 Currently on Eliquis and aspirin. Continue management per PCP/neurology. 5. PMR Diagnosed approximately 2019, on steroids since. Currently prednisone 1 mg daily. Continue management per rheumatology. Bryanna Adan MD CC: Dr. Shaniqua Ellsworth (Pulmonary, [place]/[facility] [place]) documented in this encounterK[facility]-2022 Miscellaneous Notes* Telephone Encounter - Gia Clayton RN - 05/01/2022 4:01 PM EDT Scheduling called for MRI order. Faxed to number provided. Gia Clayton RN documented in this encounterKet[facility]11-01-2022 Miscellaneous Notes* Telephone Encounter - Cinthya Hernández Sec - 05/01/2022 10:57 AM EDT [facility]00[facility] for MRI called patient with date and time * Telephone Encounter - Jennifer Welch RN - 05/01/2022 10:37 AM EDT Clerical: Pt requests that this be scheduled at [facility] in [place]. Jennifer Welch RN * Telephone Encounter - Chelle Marin APRN.CNP - 05/01/2022 10:34 AM EDT Signed. Chelle Marin APRN.LAMBSKIN TRIMMER * Telephone Encounter - Jennifer Welch RN - 05/01/2022 9:38 AM EDT Pt notified and verbalizes understanding. SURESH/Chelle: MRI order pended. Jennifer Welch RN * Telephone Encounter - Bryanna Adan MD - 04/30/2022 4:48 PM EDT Please inform the patient that we typically complete staging with a brain MRI before final decisions concerning surgery or radiation are made. If in agreement please arrange for a brain MRI to be done before her return visit. Thanks, BRM * Telephone Encounter - Janneth Bhatti RN - 04/27/2022 9:07 AM EDT Call received form Dr. Ellsworth stating that Jemima's lung biopsy on 04/25/22 came back invasiveadenocarcinoma consistent with lung primary. He does believe she is a surgical candidate. He has a follow up with her on 05/07/22 and wanted to be in the loop. F/u with BRM is on 05/10/22. Janneth Lee RN documented in this encounterKettering [facility]10-27-2022 NotePROCEDURE: CT NEEDLE BIOPSY LUNG PERCUTANEOUS MODERATE CONSCIOUS SEDATION 04/25/2022 HISTORY: ORDERING SYSTEM PROVIDED HISTORY: Lung mass Left upper lobe nodule TECHNIQUE: Automated exposure control, iterative reconstruction, and/or weight based adjustment of the mA/kV was utilized to reduce the radiation dose to as low as reasonably achievable. CONTRAST: None SEDATION: 1.5 mg versed and 50 mcg fentanyl were titrated intravenously for moderate sedation monitored under my direction. Total intra service time of sedation was 45 minutes. The patient's vital signs were monitored throughout the procedure and recorded in the patient's medical record by the nurse. DESCRIPTION OF PROCEDURE: Informed consent was obtained after a detailed explanation of the procedure including risks, benefits, and alternatives. Lenox protocol was observed. While the patient was position supine, after localizing, marking and anesthetizing the skin overlying the left upper chest with 1% lidocaine, under fluoro-CT guidance, a 19 gauge guiding needle was advanced into the upper lobe nodule. CT images confirmed satisfactory needle tip position. A single 20 gauge sample was obtained and handed to the on-site pathologist. Unfortunately, subsequently, the patient had significant hemoptysis and the procedure was terminated. The 19 gauge needle was removed and the skin site was dressed appropriately. The patient tolerated the procedure well left the department stable condition. The pathologist deemed adequate tissue sampling with 1 single sample. FINDINGS: Postprocedural CT demonstrated non expanding mild parenchymal hematoma. No pneumothorax. IMPRESSION: Technically successful CT-guided core biopsy of the left upper lobe pulmonary nodule. Interpreted by: Adi John MD Signed by: Adi John MD 04/26/22 Final resultMerVal[facility]Care [facility]10-19-2022 Evaluation note* Encounter Date Diagnosis Assessment Notes Treatment Notes Treatment Clinical Notes Mar, Bilateral carpal tunnel syndrome (ICD-10 - G56.03) Mar, Cubital tunnel syndrome on right (ICD-10 - G56.21) Patient states she is doing okay at this time and will continue towel splinting as it has been helpful. Also states she has recently been diagnosed with lung cancer and is not aware [facility] Other 10-19-2022 Miscellaneous Notes* Telephone Encounter - Jennifer Welch RN - 04/18/2022 11:37 AM EDT FYI: Per Amee @ [facility], Dr Ellsworth ordered an IR biopsy just yesterday. Will arrange @ [facility] in [place]. Pt notified. Jennifer Welch RN * Telephone Encounter - Jennifer Welch RN - 04/18/2022 11:08 AM EDT Call placed to the pulmonary clinic for follow up. No answer. Message left requesting call back. Jennifer Welch RN * Telephone Encounter - Jennifer Welch RN - 04/16/2022 3:41 PM EDT Call received from Dimple @ Dr Ellsworth's office. Notes there is a message out to regarding PETresults and need for biopsy. Awaiting reply. States that they will contact our office w/ Dr's response when received. Jennifer Welch RN * Telephone Encounter - Jennifer Welch RN - 04/16/2022 2:26 PM EDT Pt's PET a nodular opacity in her TIMUR. Recommending biopsy. Dr Adan asks that we reach out to pt to see if her high school tutor will be making arrangements. Spoke w/ pt who notes that she is not due to her high school tutor, Dr Ellsworth, until 05/07/22. Call placed to Dr Ellsworth @ [facility] ([phone]) no answer. Message left requestingcall back. Jennifer Welch RN documented in this encounterKettering [facility]10-13-2022 Nurse Note* Arnaldo Aldrich MA - 04/12/2022 12:02 PM EDT Patient Identification confirmed: yes. Injection given and documented on AUG per provider order. Arnaldo Aldrich MA * Arnaldo Aldrich MA - 04/12/2022 10:40 AM EDT Patient had PET scan done 04/11/22 @ 7:30am, it is not read yet and Toshia Bal asked for images to be pushed over. Arnaldo Aldrich MA documented in this encounterKettering Health [facility]10-13-2022 History of Present illness Narrative* Bryanna Adan MD - 04/12/2022 7:15 AM EDT PATIENT NAME: Jemima Bradford DATE: 04/12/2022 PRIMARY CARE PHYSICIAN: Jasmyne Casillas CNP ([facility]) OTHER PHYSICIANS: Dr. Keene, Dr. Ferrari ( [facility], [place]), Dr. Pizarro, Dr. Arguelles,Dr. Shaniqua Ellsworth (Pulmonary, [place]/[facility]) Portions of this encounter note have been copied from my note from 08/10/2021 and has been updated where appropriate, and reflect my current medical decision making from today. CC: This is an 81 year old female with a history of DCIS seen for evaluation of a newly diagnosed lung abnormality. INTERIM HISTORY: The patient has a long history of intermittent shortness of breath, presumably from asthma. She sees a high school tutor at [facility] for management. Apparently she recently noticed increasing shortness of breath/dyspnea on exertion. On 04/04/2022 she underwent a chest x-ray and VQ scan which were negative, but chest CT revealed a scarlike opacity in the left upper lobe measuring 1.5 x 1.3 cm. The patient's most recent chest CT December 2019 revealed a scarlike lesion in the area measuring 1.1 x 0.8 cm. The patient underwent a PET scan at [facility] 04/11/2022, results currently pending. Clinically the patient feels fairly well. Her main complaint is chronic shortness of breath or dyspnea exertion. Occasional dry cough, no hemoptysis. No unusual pain or weight loss. She has a history of smoking, but quit 50 years ago. She currently is receiving treatment for asthma. MEDICATIONS: hydrOXYchloroQUINE (PLAQUENIL) 200 mg tablet ALTERNATE BETWEEN 1 TABLET BY MOUTH TWICE DAILY AND 1 TABLET ONCE DAILY WITH FOOD. GET YEARLY EYE EXAM. cetirizine (ZYRTEC) 10 mg tablet Cetirizine (Zyrtec) 10 mg Tablet Active 10 MG PO Daily January 5:01pm anastrozole (ARIMIDEX) 1 mg tablet Take 1 tablet by mouth once daily. levothyroxine (SYNTHROID) 50 mcg tablet levothyroxine 50 mcg tablet TAKE 1 TABLET BY MOUTH DAILY FOR HYPOTHYROIDISM apixaban (ELIQUIS) 5 mg tab(s) Eliquis 5 mg tablet Take 1 tablet twice a day by oral route for 90 days. calcium carbonate (CALTRATE) 600 mg calcium (1,500 mg) tab 600 mg. melatonin 10 mg tab 10 mg. predniSONE (DELTASONE) 5 mg tablet Take 1 mg by mouth once daily. 1 every other day aspirin, enteric coated (ASPIRIN, ENTERIC COATED) 81 mg EC tablet Take 81 mg by mouth once daily. rosuvastatin (CRESTOR) 40 mg tablet Take 40 mg by mouth once daily. furosemide (LASIX) 40 mg tablet Take 40 mg by mouth once daily. spironolactone (ALDACTONE) 25 mg tablet Take 25 mg by mouth once daily. esomeprazole (NEXIUM) 20 mg capsule Take 20 mg by mouth as directed. Twice per week metoprolol tartrate, short acting, (LOPRESSOR) 25 mg tablet Take 1 tablet by mouth twice daily. nitroglycerin sublingual (NITROQUICK) 0.4 mg SL tablet Dissolve 1 tablet under the tongue every 5 minutes as needed. COQ10, UBIQUINOL, ORAL Take 1 tablet by mouth once daily. Chromium Picolinate 500 mcg cap Take 1 tablet by mouth once daily. MAGNESIUM ORAL Take 1 tablet by mouth once daily. 600mg ZAFIRLUKAST 20 mg tablet Take 20 mg by mouth once daily. sodium chloride 0.9 % nebulizer solution Use 3 mL via nebulizer as needed. albuterol 2.5 mg /3 mL (0.083 %) nebulizer solution Use 2.5 mg via nebulizer every 6 hours as needed. ALLERGIES: Biaxin [Clarithromycin], Contrast Dye, Nickel, Nitrous Oxide, Synvisc [Hylan G-F 20], and Thorazine[Chlorpromazine] PAST MEDICAL HISTORY: PAST MEDICAL HISTORY Diagnosis Date Aortic valve stenosis mild Arthritis Asthma controlled no inhalers Coronary artery disease Hypercholesteremia Hypertension Polymyalgia rheumatica (HCC) PAST SURGICAL HISTORY: PAST SURGICAL HISTORY Procedure Laterality Date APPENDECTOMY 07/01/1978 ARTHROSCOPY KNEE MEDIAL RELEASE 2002,2010 rt & Lt knee ARTHRP KNE CONDYLE&PLATU MEDIAL&LAT COMPARTMENTS Right 07/01/2013 right x2 BREAST LUMPECTOMY HX BUNIONECTOMY, LAPIDUS-TYPE 07/01/2010 rt toe CHOLECYSTECTOMY 07/01/2005 COLONOSCOPY & POLYPECTOMY 2004, 2005, 2009 x 3 CYSTO LASER TX URETERAL CALC 07/01/2009 stent placement CYSTO W/RETROGRADE x 6 D&C (INCOMPLETE AB), ANY TRIMESTER 07/01/1974 EXCISE EXCESS SKIN TISSUE,ABDOMEN 07/01/1994 Abdominalplasty LITHOTRIPSY PROC UNILATERAL 07/01/1985 rt kidney REMV CATARACT EXTRACAP,INSERT LENS STENT PLACEMENT 07/01/2003 LAD TONSILLECTOMY HX as child REVIEW OF SYSTEMS: GENERAL: No weight loss, malaise or fevers. HEENT: Negative for frequent or significant headaches, No changes in hearing or vision, no nose bleeds or other nasal problems RESPIRATORY: Negative for cough, wheezing or shortness of breath. CARDIOVASCULAR: Negative for chest pain, leg swelling or palpitations. GI: Negative for abdominal discomfort, blood in stools or black stools or change in bowel habits : No history of dysuria, frequency or incontinence MUSCULOSKELETAL: Negative for: joint pain or swelling, back pain and muscle pain SKIN: Negative for lesions, rash, and itching. HEMATOLOGY/LYMPHOLOGY: Negative for prolonged bleeding, bruising easily or swollen nodes. NEURO: No history of headaches, syncope, paralysis, seizures or tremors PHYSICAL EXAM: Vitals: BP 130/63 Pulse (!) 57 Temp 36.6 C (97.8 F) (Temporal) Resp 16 Ht 165.1 cm (5' 5 ) Wt 82.3 kg (181 lb 6.4 oz) SpO2 98% BMI 30.19 kg/m General appearance: well appearing, alert, in no acute distress, well-hydrated, well nourished Skin: skin color, texture, turgor normal, no suspicious rashes or lesions Head: normal Eyes: Anicteric sclera. Pupils are equally round and reactive to light. Extraocular movements are intact. Ears: negative findings: external ears normal to inspection and palpation Oropharynx: negative Neck: Supple, no adenopathy; thyroid symmetric, normal size Lymph Nodes: No Submandibular, cervical, supraclavicular, axillary, or inguinal lymphadenopathy present Breast: Not examined today Back: no tenderness to palpation Lungs: clear to auscultation, no wheezing or rhonchi Heart: Negative. RRR without murmur, gallop, or rubs. No ectopy. Abdomen: Normal abdominal exam, Abdomen soft, non-tender. Bowel sounds normal. No masses, organomegaly Rectal: Not done Extremities: Extremities normal. No deformities, edema, or skin discoloration. Good capillary refill. Musculoskeletal: No joint swelling, deformity, or tenderness. Peripheral pulses: Normal PATHOLOGY: 06/21/2020 Right breast lumpectomy ([facility]) Ductal carcinoma in situ, low nuclear grade, cribriform and solid types, 1.3 cm in greatest dimension. Posterior margin is within 1 mm from DCIS. ER 99%, HI 99% 06/06/2020 Left breast biopsy ([facility]) Columnar cell change/hyperplasia. Usual ductal hyperplasia. 05/25/2020 Right breast biopsy ([facility]) Ductal carcinoma in situ, nuclear grade 1. ER positive (99%, HI positive (99%) RADIOLOGY/OTHER STUDIES: 04/05/2022 Bilateral diagnostic mammogram/right breast ultrasound ([facility]) Benign, no evidence of malignancy. Normal interval follow-up at 12 months. 04/04/2022 High-resolution chest CT ([place]) Previous linear scarlike opacity left upper lobe measuring 11 x 8 mm in December 2019 is now irregularly lobulated and measures 1.5 x 1.3 cm and is suspicious. PET scan or biopsy recommended. 06/08/2021 Diagnostic right mammogram and right breast ultrasound ([facility]) 2.2 cm complex fluid collection in the lumpectomy bed at the 5 o'clock position. Could be a postoperative seroma, old hematoma, or abscess. No finding to suggest malignancy in the right breast. 05/31/2021 Bone density DEXA ([facility]) Increasing osteopenia in the hips. Significant loss of bone in the lumbar spine, while remaining within normal limits 02/02/2021 Bilateral Screening Mammogram ([facility]) No evidence of malignancy. Routine follow-up in 1 year recommended. 05/02/2020 Bilateral mammogram ([facility]) Abnormality in the retroareolar area of the right breast 01/22/2020 CT chest without contrast ([facility]) Linear and spiculated soft tissue density left upper lobe of unknown etiology. ASSESSMENT/PLAN: 1. Mass of upper lobe of left lung - ICD9: 786.6, ICD10: R91.8 (primary diagnosis) High-resolution chest CT obtained 04/04/2022 revealed a scarlike opacity in the left upper lobe measuring 1.5 x 1.3 cm (prior chest CT December 2019 the lesion measured 1.1 x 0.8 cm). The patient underwent a PET scan on 04/11/2022 for further evaluation, current results pending. Assuming the PET scan indicates FDG uptake this lesion most likely represents primary lung cancer, and a biopsy would be recommended. We will defer to her high school tutor whether to proceed with a bronchoscopy or CT directed biopsy. If primary lung cancer is confirmed options for treatment would be surgical resection versus radiation therapy. Given her history of chronic lung disease and heart disease most likely radiation would be preferred. I will see the patient back in 4 weeks to coordinate care. 2. 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 The patient presented with right breast pain and was found to have an abnormality in the retroareolar area of the right breast. A right breast breast biopsy obtained 05/25/2020 revealed a low-grade ER/HI positive DCIS. The patient also underwent a left breast biopsy on 06/06/2020 which was benign. Genetic testing revealed no evidence of deleterious mutations. 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 Adjuvant hormonal therapy with anastrozole was started July 2020. The patient received adjuvant radiation therapyto the right breast 08/08/2020 through 08/19/2020 (3000 cGy in 5 fractions). At this time she has no evidence of disease. Plans are to continue anastrozole for 5 years total. She will undergo a surveillance mammogram yearly. 3. Heart disease - ICD9: 429.9, ICD10: I51.9 History of coronary artery disease and aortic valve stenosis. Status post CABG, aortic valve replacement and cardiac ablation November 2019. History of paroxysmal atrial fibrillation - resolved after herinitial cardiac procedure in November 2019. Apparently the patient developed recurrent atrial fibrillation in August 2020 and underwent ablation 01/04/2021. Currently on Eliquis and aspirin. Continue managem ent per PCP/cardiology. 4. 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 Currently on aspirin. Continue management per PCP/neurology. 5. PMR Diagnosed approximately 2018, on steroids since. Currently prednisone 1 mg daily. Continue management per rheumatology. Bryanna Adan MD CC: Dr. Shaniqua Ellsworth (Pulmonary, [place]) documented in this encounterK[facility]tering [facility]10-12-2022 Miscellaneous Notes* Telephone Encounter - Noemy Mendosa Pss - 04/11/2022 8:42 AM EDT Spoke with patient and rescheduled to 04/12/22. * Telephone Encounter - Manisha Lazaro - 04/10/2022 4:24 PM EDT Spoke to patient and scheduled her for BRM on 04/30/2022@3:15pm. Patient would like to see if we have a sooner appointment if possible. Manisha Lazaro * Telephone Encounter - Sri Geiger [facility] - 04/10/2022 3:31 PM EDT Reports scanned. Images requested. * Telephone Encounter - Cinthya Hernández Sec - 04/10/2022 2:54 PM EDT Called patient left message to call us back * Telephone Encounter - Gia Clayton RN - 04/10/2022 1:38 PM EDT Pt called to request an appt with BRM for a new cancer. She is having a PET tomorrow. I attemptedto call back for additional information and left a VM to call. I will forward more information whenshe returns the call so we can get her records. Blanca Geiger: looks like [facility] has documented scans/testing 03/2022 from [facility]. Pleaseobtain BRM: ROB and I will have PSS get her added to your schedule PSS: please call to have pt added to BRM schedule Gia Clayton RN documented in this encounterKettering Health [facility]10-06-2022 Evaluation note* Diagnosis Stage 3 chronic kidney disease, unspecified whether stage 3a or 3b CKD (HCC) [facility]: [phone] 509-266809-28-2022 Evaluation note* Encounter Date Diagnosis Assessment Notes Treatment Notes Treatment Clinical Notes Mar, Bloating (ICD-10 - R14.0) Mar, Gas (ICD-10 - R14.3) PT WAS GIVEN A COPY OF LOW FODMAP DIET CONTINUE [employer] START SIMETHICONE OTC/CHARCOAL TABS RTO 3 MONTHS Mar, Irritable bowel syndrome with constipation (ICD-10 - K58.1) [facility] Other 09-20-2022 Evaluation note* Encounter Date Diagnosis Assessment Notes Treatment Notes Treatment Clinical Notes Mar, Bilateral carpal tunnel syndrome (ICD-10 - G56.03) Mar, Cubital tunnel syndrome on right (ICD-10 - G56.21) This appears to be cubital Tunnel Syndrome. We discussed the cause of this condition and the treatment options. We discussed the use of night towl splinting and cortisone injection into the cubital tunnel can be helpful in relieving painful symptoms, and hand occupational therapy can help with symptoms. Patient declined injection today, states she would like to proceed with towl splinting [facility] Other 08-23-2022 Miscellaneous Notes* Telephone Encounter - Akin Chow - 02/20/2022 3:28 PM EDT Patient has been scheduled & notified. Akin Chow * Telephone Encounter - Emy Geiger RN - 02/20/2022 1:44 PM EDT Patient's mammogram order will need resigned due to last years expiring. She also called and spoke to med onc nurse stating that she had not heard anything about the appt or 'authorization.' SHARON- please sign new order. PSS- please call [place] to schedule for patient and then notify pt with time. She should not need any authorization as this is a routine yearly test she has due to her breast cancer history. Emy Geiger RN documented in this encounterKettering Health [facility]08-16-2022 Miscellaneous Notes* Telephone Encounter - Cinthya Hernández Sec - 02/13/2022 9:47 AM EDT [facility]. * Telephone Encounter - Chanel Eli LPN - 02/13/2022 9:45 AM EDT I notified Cinthya that the order from 02/21/21 [facility] diagnostic bilateral is the order for 2021. She will schedule Jemima accordingly. Chanel Eli LPN * Telephone Encounter - Cinthya Hernández Sec - 02/13/2022 9:32 AM EDT Hi, we will need an order for 2021 thanks! * Telephone Encounter - Akin Chow - 02/09/2022 9:55 AM EDT Patient is not currently scheduled for mammogram. She stated that sometimes it is ordered by Dr. Pizarro, and sometimes it is ordered by Dr. Keene. Currently, [facility] does not have orders from either physician. Akin Chow documented in this encounterKettering Health Hamilton08-11-2022 History of Present illness Narrative* Babatunde Pizarro MD - 02/08/2022 11:49 PM EDT Radiation Oncology - Follow Up Note PATIENT NAME: Jemima Bradford PATIENT Signed by: Babatunde Pizarro MD I spent a total of 20 minutes on the date of the service which included preparing to see the patient, [id number] patient care, and counseling and educating the patient/family/caregiver. This document has been created with the use of voice recognition technology. It may contain inaccuracies, misspellings, inaccurate syntax or inappropriate word context that are a result of the inadequacies/shortcomings of said technology/software. documented in this encounterKettering Health Hamilton06-29-2022 Evaluation note* Encounter Date Diagnosis Assessment Notes Treatment Notes Treatment Clinical Notes Nov, Gas pain (ICD-10 - R14.1) PATIENT IS ADVISED WE WILL START XIFAXAN 1 PO TID FOR 3 WEEKS. [facility] Other 04-13-2022 Hospital Discharge instructions Patient Education 10/11/2021 08:26:06 Kidney Stones, [id number] Kidney Stones Kidney stones are rock-like masses that form inside of the kidneys. Kidneys are organs that make pee (urine). A kidney stone may move into other parts of the urinary tract, including: The tubes that connect the kidneys to the bladder (ureters). The bladder. The tube that carries urine out of the body (urethra). Kidney stones can cause very bad pain and can block the flow of pee. The stone usually leaves your body (passes) through your pee. You may need to have a doctor take out the stone. What are the causes? Kidney stones may be caused by: A condition in which certain glands make too much parathyroid hormone (primary hyperparathyroidism). A buildup of a type of crystals in the bladder made of a chemical called uric acid. The body makes uric acid when you eat certain foods. Narrowing (stricture) of one or both of the ureters. A kidney blockage that you were born with. Past surgery on the kidney or the ureters, such as gastric bypass surgery. What increases the risk? You are more likely to develop this condition if: You have had a kidney stone in the past. You have a family history of kidney stones. You do not drink enough water. You eat a diet that is high in protein, salt (sodium), or sugar. You are overweight or very overweight (obese). What are the signs or symptoms? Symptoms of a kidney stone may include: Pain in the side of the belly, right below the ribs (flank pain). Pain usually spreads (radiates) to the groin. Needing to pee often or right away (urgently). Pain when going pee (urinating). Blood in your pee (hematuria). Feeling like you may vomit (nauseous). Vomiting. Fever and chills. How is this treated? Treatment depends on the size, location, and makeup of the kidney stones. The stones will often pass out of the body through peeing. You may need to: Drink more fluid to help pass the stone. In some cases, you may be given fluids through an IV tube put into one of your veins at the hospital. Take medicine for pain. Make changes in your diet to help keep kidney stones from coming back. Sometimes, medical procedures are needed to remove a kidney stone. This may involve: A procedure to break up kidney stones using a beam of light (laser) or shock waves. Surgery to remove the kidney stones. Follow these instructions at home: Medicines Take [id number]-[id number] and prescription medicines only as told by your doctor. Ask your doctor if the medicine prescribed to you requires you to avoid driving or using heavy machinery. Eating and drinking Drink enough fluid to keep your pee pale yellow. You may be told to drink at least 8 10 glasses of water each day. This will help you pass the stone. If told by your doctor, change your diet. This may include: ?Limiting how much salt you eat. ?Eating more fruits and vegetables. ?Limiting how much meat, poultry, fish, and eggs you eat. Follow instructions from your doctor about eating or drinking restrictions. General instructions Collect pee samples as told by your doctor. You may need to collect a pee sample: ?24 hours after a stone comes out. ?8 12 weeks after a stone comes out, and every 6 12 months after that. Strain your pee every time you pee (urinate), for as long as told. Use the strainer that your doctor recommends. Do not throw out the stone. Keep it so that it can be tested by your doctor. Keep all follow-up visits as told by your doctor. This is important. You may need follow-up tests. How is this prevented? To prevent another kidney stone: Drink enough fluid to keep your pee pale yellow. This is the best way to prevent kidney stones. Eat healthy foods. Avoid certain foods as told by your doctor. You may be told to eat less protein. Stay at a healthy weight. Where to find more information National Kidney Foundation (NKF): www.kidney.org [facility] (UCF): www.urologyhealth.org Contact a doctor if: You have pain that gets worse or does not get better with medicine. Get help right away if: You have a fever or chills. You get very bad pain. You get new pain in your belly (abdomen). You pass out (faint). You cannot pee. Summary Kidney stones are rock-like masses that form inside of the kidneys. Kidney stones can cause very bad pain and can block the flow of pee. The stones will often pass out of the body through peeing. Drink enough fluid to keep your pee pale yellow. This information is not intended to replace advice given to you by your health care provider. Make sure you discuss any questions you have with your health care provider. Document Released: 12/03/2008 Document Revised: 11/03/2019 Document Reviewed: 11/03/2019 [employer] Patient Education 2020 [employer]. 10/11/2021 08:26:04 Calorie Counting for Weight Loss Calorie Counting for Weight Loss Calories are units of energy. Your body needs a certain amount of calories from food to keep you going throughout the day. When you eat more calories than your body needs, your body stores the extra calories as fat. When you eat fewer calories than your body needs, your body hsieh fat to get the energy it needs. Calorie counting means keeping track of how many calories you eat and drink each day. Calorie counting can be helpful if you need to lose weight. If you make sure to eat fewer calories than your bodyneeds, you should lose weight. Ask your health care provider what a healthy weight is for you. For calorie counting to work, you will need to eat the right number of calories in a day in order to lose a healthy amount of weight per week. A dietitian can help you determine how many calories youneed in a day and will give you suggestions on how to reach your calorie goal. A healthy amount of weight to lose per week is usually 1 2 lb (0.5 0.9 kg). This usually means thatyour daily calorie intake should be reduced by 500 750 calories. Eating 1,200 1,500 calories per day can help most women lose weight. Eating 1,500 1,800 calories per day can help most men lose weight. What is my plan? My goal is to have calories per day. If I have this many calories per day, I should lose around pounds per week. What do I need to know about calorie counting? In order to meet your daily calorie goal, you will need to: Find out how many calories are in each food you would like to eat. Try to do this before you eat. Decide how much of the food you plan to eat. Write down what you ate and how many calories it had. Doing this is called keeping a food log. To successfully lose weight, it is important to balance calorie counting with a healthy lifestyle that includes regular activity. Aim for 150 minutes of moderate exercise (such as walking) or 75 minutes of vigorous exercise (such as running) each week. Where do I find calorie information? The number of calories in a food can be found on a Nutrition Facts label. If a food does not have aNutrition Facts label, try to look up the calories online or ask your dietitian for help. Remember that calories are listed per serving. If you choose to have more than one serving of a food, you will have to multiply the calories per serving by the amount of servings you plan to eat. Forexample, the label on a package of bread might say that a serving size is 1 slice and that there are 90 calories in a serving. If you eat 1 slice, you will have eaten 90 calories. If you eat 2 slices, you will have eaten 180 calories. How do I keep a food log? Immediately after each meal, record the following information in your food log: What you ate. Don't forget to include toppings, sauces, and other extras on the food. How much you ate. This can be measured in cups, ounces, or number of items. How many calories each food and drink had. The total number of calories in the meal. Keep your food log near you, such as in a small notebook in your pocket, or use a mobile marlys or website. Some programs will calculate calories for you and show you how many calories you have left forthe day to meet your goal. What are some calorie counting tips? Use your calories on foods and drinks that will fill you up and not leave you hungry: ?Some examples of foods that fill you up are nuts and nut butters, vegetables, lean proteins, and high-fiber foods like whole grains. High-fiber foods are foods with more than 5 g fiber per serving. ?Drinks such as sodas, specialty coffee drinks, alcohol, and juices have a lot of calories, yet do not fill you up. Eat nutritious foods and avoid empty calories. Empty calories are calories you get from foods or beverages that do not have many vitamins or protein, such as candy, sweets, and soda. It is better to have a nutritious high-calorie food (such as an avocado) than a food with few nutrients (such as a bag of chips). Know how many calories are in the foods you eat most often. This will help you calculate calorie counts faster. Pay attention to calories in drinks. Low-calorie drinks include water and unsweetened drinks. Pay attention to nutrition labels for low fat or fat free foods. These foods sometimes have thesame amount of calories or more calories than the full fat versions. They also often have added sugar, starch, or salt, to make up for flavor that was removed with the fat. Find a way of tracking calories that works for you. Get creative. Try different apps or programs ifwriting down calories does not work for you. What are some portion control tips? Know how many calories are in a serving. This will help you know how many servings of a certain food you can have. Use a measuring cup to measure serving sizes. You could also try weighing out portions on a kitchenscale. With time, you will be able to estimate serving sizes for some foods. Take some time to put servings of different foods on your favorite plates, bowls, and cups so you know what a serving looks like. Try not to eat straight from a bag or box. Doing this can lead to overeating. Put the amount you would like to eat in a cup or on a plate to make sure you are eating the right portion. Use smaller plates, glasses, and bowls to prevent overeating. Try not to multitask (for example, watch TV or use your computer) while eating. If it is time to eat, sit down at a table and enjoy your food. This will help you to know when you are full. It will also help you to be aware of what you are eating and how much you are eating. What are tips for following this plan? Reading food labels Check the calorie count compared to the serving size. The serving size may be smaller than what youare used to eating. Check the source of the calories. Make sure the food you are eating is high in vitamins and proteinand low in saturated and trans fats. Shopping Read nutrition labels while you shop. This will help you make healthy decisions before you decide to purchase your food. Make a grocery list and stick to it. Cooking Try to cook your favorite foods in a healthier way. For example, try baking instead of frying. Use low-fat dairy products. Meal planning Use more fruits and vegetables. Half of your plate should be fruits and vegetables. Include lean proteins like poultry and fish. How do I count calories when eating out? Ask for smaller portion sizes. Consider sharing an entree and sides instead of getting your own entree. If you get your own entree, eat only half. Ask for a box at the beginning of your meal and put the rest of your entree in it so you are not tempted to eat it. If calories are listed on the menu, choose the lower calorie options. Choose dishes that include vegetables, fruits, whole grains, low-fat dairy products, and lean protein. Choose items that are boiled, broiled, grilled, or steamed. Stay away from items that are buttered,battered, fried, or served with cream sauce. Items labeled crispy are usually fried, unless stated otherwise. Choose water, low-fat milk, unsweetened iced tea, or other drinks without added sugar. If you want an alcoholic beverage, choose a lower calorie option such as a glass of wine or light beer. Ask for dressings, sauces, and syrups on the side. These are usually high in calories, so you should limit the amount you eat. If you want a salad, choose a garden salad and ask for grilled meats. Avoid extra toppings like finch, cheese, or fried items. Ask for the dressing on the side, or ask for olive oil and vinegar or lemon to use as dressing. Estimate how many servings of a food you are given. For example, a serving of cooked rice is cup orabout the size of half a baseball. Knowing serving sizes will help you be aware of how much food you are eating at restaurants. The list below tells you how big or small some common portion sizes arebased on everyday objects: ?1 oz 4 stacked dice. ?3 oz 1 deck of cards. ?1 tsp 1 . ?1 Tbsp a ping-pong ball. ?2 Tbsp 1 ping-pong ball. ? cup baseball. ?1 cup 1 baseball. Summary Calorie counting means keeping track of how many calories you eat and drink each day. If you eat fewer calories than your body needs, you should lose weight. A healthy amount of weight to lose per week is usually 1 2 lb (0.5 0.9 kg). This usually means reducing your daily calorie intake by 500 750 calories. The number of calories in a food can be found on a Nutrition Facts label. If a food does not have aNutrition Facts label, try to look up the calories online or ask your dietitian for help. Use your calories on foods and drinks that will fill you up, and not on foods and drinks that will leave you hungry. Use smaller plates, glasses, and bowls to prevent overeating. This information is not intended to replace advice given to you by your health care provider. Make sure you discuss any questions you have with your health care provider. Document Released: 06/17/2006 Document Revised: 03/06/2019 Document Reviewed: 05/17/2017 [employer] Patient Education 2020 [employer] Follow Up Care 02/03/2021 14:48:06 With:GAMALIEL PAPPAS, Vahe Daniel, URL Address: When: only if needed [facility] 07-12-2021 NoteMR#: [id number] I [facility] Pt. Name: Jemima Bradford Admitted: 01/06/2021 Discharged: 01/09/2021 Date of : 1940 Physician: Jerald Watson MD DISCHARGE SUMMARY PRIMARY DIAGNOSES: 1. Acute diastolic heart failure with recent history of ablation, resolved, back to baseline. 2. Paroxysmal atrial fibrillation, status post ablation recently week ago. 3. Coronary artery disease, status post CABG. 4. Chronic kidney disease, stage 3, stable. 5. History of aortic stenosis, status post TAVR. CONSULTATION: Cardiology. HOSPITAL COURSE: As below. The patient is a 80-year-old female with past medical history of aforementioned above, who presented to the hospital complaining of shortness of breath. The patient recently had an atrial fibrillation with ablation procedure. The patient has been feeling excessively short of breath since the procedure and it got worse that she had to be admitted because of difficulty breathing. She presented to the hospital with worsening shortness of breath and exertional dyspnea. Her oxygen saturation at home dropped to 82%. She denies any chest pain, cough, fever, chills, nausea, vomiting, diarrhea. Denies any significant lower extremity swelling. In the ED, the patient was saturating 94% on room air, was admitted to the step-down unit. Cardiology Service was on board, was started on IV diuresis. Symptoms significantly improved and 2nd day of admission, the patient was off oxygen and was on room air saturating fine. Cardiology team recommend to switch Lasix 40 mg daily and follow up with the [facility] within 2 weeks. PHYSICAL EXAMINATION: VITAL SIGNS: At time of discharge, the patient vitals stable. GENERAL: The patient alert, oriented x4. No visible distress. HEAD AND NECK: Atraumatic, normocephalic. EYES: EOMI, PERRLA. CHEST: No sign of labored breathing. NEUROLOGY: Nonfocal. PSYCH: Mood stable. DISCHARGE MEDICATIONS: As per reconcile in the computer. DISCHARGE DISPOSITION: The patient is going home in stable condition. TOTAL TIME: 45 minutes evaluating the patient, reviewing chart, coordinating care with nursing staff. Electronically Signed by: Jerald Watson MD 01/16/2021 02:03 P Jerald Watson MD Date Dict: 01/09/2021/02:01 P/Jerald Watson MD Date Trans: 01/09/2021 03:55 P/werner [id number] [facility]02-01-2014 History general Narrative - Reported* Type Description Date Medical History colonoscopy 08/2013 Medical History afib Medical History asthma Medical History blood pressure Medical History led stent Medical History arthritis Medical History Constipation Medical History Internal hemorrhoids without men tion of complication Medical History Gastric polyps Medical History Reflux esophagitis Medical History STROKE Medical History right breast cancer Medical History stage 3 kidney disease Surgical History knee replacement Surgical History appendectomy Surgical History gallbladder Surgical History carpal tunnel bilateral Surgical History great toe right foot Surgical History abdominalplasty 1994 Surgical History T &A Surgical History re-due of right knee 07/27/15 Surgical History ORIF left ankle Surgical History open heart surgery 12/03/19 Hospitalization History see above [facility] Other 02-01-2014 History general Narrative - Reported* Type Description Date Medical History colonoscopy 08/2013 Medical History afib Medical History asthma Medical History blood pressure Medical History led stent Medical History arthritis Medical History Constipation Medical History Internal hemorrhoids without men tion of complication Medical History Gastric polyps Medical History Reflux esophagitis Medical History STROKE Medical History right breast cancer Medical History stage 3 kidney disease Medical History lung cancer - FAMILY NOT AWARE Surgical History knee replacement Surgical History appendectomy Surgical History gallbladder Surgical History carpal tunnel bilateral Surgical History great toe right foot Surgical History abdominalplasty 1994 Surgical History T &A Surgical History re-due of right knee 07/27/15 Surgical History ORIF left ankle Surgical History open heart surgery 12/03/19 Hospitalization History see above [facility] Other 02-01-2014 History general Narrative - Reported* Type Description Date Medical History colonoscopy 08/2013 Medical History afib Medical History asthma Medical History blood pressure Medical History led stent Medical History arthritis Medical History Constipation Medical History Internal hemorrhoids without men tion of complication Medical History Gastric polyps Medical History Reflux esophagitis Medical History STROKE Medical History right breast cancer Medical History stage 3 kidney disease Medical History lung cancer - FAMILY NOT AWARE Surgical History knee replacement Surgical History appendectomy Surgical History gallbladder Surgical History carpal tunnel bilateral Surgical History great toe right foot Surgical History abdominalplasty 1994 Surgical History T &A Surgical History re-due of right knee 07/27/15 Surgical History ORIF left ankle Surgical History open heart surgery 12/03/19 Surgical History cardiac ablation Hospitalization History see above [facility] Other 02-01-2014 History general Narrative - Reported* Type Description Date Medical History colonoscopy 08/2013 Medical History afib Medical History asthma Medical History blood pressure Medical History led stent Medical History arthritis Medical History Constipation Medical History Internal hemorrhoids without mention of complication Medical History Gastric polyps Medical History Reflux esophagitis Medical History STROKE Medical History right breast cancer Medical History stage 3 kidney disease Medical History lung cancer - FAMILY NOT AWARE Surgical History knee replacement Surgical History appendectomy Surgical History gallbladder Surgical History carpal tunnel bilateral Surgical History great toe right foot Surgical History abdominalplasty 1994 Surgical History T &A Surgical History re-due of right knee 07/27/15 Surgical History ORIF left ankle Surgical History open heart surgery 12/03/19 Surgical History cardiac ablation Surgical History lobectomy-partial (left) 2021 Hospitalization History see above [facility] Other Consult note Author Herb Lara [facility] Note Date/Time July 28, 2024 1 :48pm [facility] [address] [place] [address] Physiatry (Rehab) Consult Note Signed Patient: Jemima Bradford MR#: [id number] : 1940 Acct:[id number] Age/Sex: 84 / F Adm Date: 5 Loc: 4N Room: [address] [place] [address] Type: REG [facility] Attending Dr: Sridevi Tovar II, MD Copies to: MD Sridevi Shay MD Susan M Krebs, APRN, LAMBSKIN TRIMMER~ HPI Consult Date: 07/28/24 Requesting Physician: Sridevi Tovar II, MD Primary Care Provider: Jasmyne Casillas APRN, DRESSING ROOM ATTENDANT-C Consult Narrative HPI: Ms. Bradford is a 84 year old female with PMH hypertension, IBS, breast cancer as well as lung cancer status post resection who presented to the hospital for elective left TKA. She is doing well post op. No major concerns today. She lives with her spouse in a 1 story home with first floor set up. IND at baseline. She has worked with therapy. She reports that she tolerated but not at her functional baseline. Hopeful to go to inpatient rehab. Review of Systems Review of Systems All other systems reviewed & are negative unless noted below or in HPI [facility] Medical History History of ankle fracture left with repair, plates and screws Left knee pain Wears hearing aid in both ears Stress incontinence in female Gaviria esophagus Hypothyroidism Right hip pain Left knee pain Chronic pain Lung cancer Polymyalgia rheumatica Abnormal colonoscopy history of polyps Breast cancer right side History of cataract Kidney stones Stage 3 chronic kidney disease dx 2019 GERD (gastroesophageal reflux disease) CHF (congestive heart failure) since having the CABG History of atrial fibrillation Murmur Arthritis IBS (irritable bowel syndrome) Hiatal hernia Sleep apnea cpap History of revision of total replacement of right knee joint Trigger finger Asthma Hypertension CVA (cerebral vascular accident) Surgical History History of tubal ligation History of lumpectomy of right breast and radiation for breast cancer History of phacoemulsification of cataract of both eyes with intraocular lens implantation History of cardiac catheterization stents History of thoracotomy part of left lung removed History of cystoscopy H/O cardiac radiofrequency ablation 2020 Aortic valve replaced done at time of CABG Hx of CABG x 1 done 11/2019 History of total right knee replacement x 2 Problem List clean-up per request of Phys. EHR Cmte History of bunionectomy History of cholecystectomy History of arthroscopy of both knees H/O abdominoplasty History of carpal tunnel release of both wrists bilaterally Problem List clean-up per request of Phys. EHR Cmte H/O lithotripsy History of appendectomy History of tonsillectomy and adenoidectomy Family History Mother H/O endarterectomy H/O angioplasty Pancreatic cancer Pacemaker Diabetes Father H/O endarterectomy Hx of CABG Stroke Diabetes Heart disease Brother Bladder cancer Hx of CABG Sister Breast cancer Sister Breast cancer Brother Diabetes Legacy FamHx Relation: Brother(s) Exposure to Agent Irion Legacy FamHx Relation: Brother(s) Pacemaker Father No problems noted. Mother No problems noted. Sister No problems noted. Social History Smoking Status: Former smoker Tobacco Type: cigarettes Substance Use Type: None Social History Comments: several cysto's cardiac cath with stent multiple D&C's several colonoscopies wirh polypectomies another cardiac cath uses cpap cysto urethral laser with stone removal with stent Meds Medications and Allergies Allergies Iodinated Contrast Media (Iodinated Contrast- Oral and IV Dye) Allergy (Severe, Verified 07/27/24 10:25) Anaphylaxis adhesive tape (Tape) Allergy (Unknown, Verified 07/16/24 10:01) Blister chlorpromazine (From Thorazine) Allergy (Unknown, Verified 07/16/24 10:01) Hives clarithromycin (From Biaxin) Allergy (Unknown, Verified 07/16/24 10:01) Unknown Reaction hylan G-F 20 (From Synvisc) Allergy (Unknown, Verified 07/16/24 10:01) Itching, swelling nickel Allergy (Unknown, Verified 07/16/24 10:01) Swelling nitrous oxide Allergy (Unknown, Verified 07/16/24 10:01) Vomiting simvus Allergy (Unknown, Uncoded 06/02/24 10:03) Unknown Reaction metal Allergy (Uncoded 06/02/24 10:03) Edema Home Medications albuterol sulfate 90 mcg/actuation aerosol inhaler 1 puff inhalation Q4-6H PRN Shortness Of Breath Or Wheezing 02/06/18 [History Confirmed 07/16/24] chromium picolinate 1,000 mcg tablet 500 mcg PO DAILY blood sugar 02/06/18 [History Confirmed 07/16/24] melatonin 10 mg tablet 5 mg PO HS PRN Sleep 02/06/18 [History Confirmed 07/16/24] metoprolol tartrate 25 mg tablet 12.5 mg PO BID 02/06/18 [History Confirmed 07/27/24] nitroglycerin 0.4 mg sublingual tablet 0.4 mg sublingual Q5MIN PRN Pain 02/06/18[History Confirmed 07/16/24] rosuvastatin 40 mg tablet 40 mg PO HS 11/10/18 [History Confirmed 07/16/24] coenzyme Q10 100 mg capsule (Co Q-10) 100 mg PO QHS 06/13/20 [History Confirmed 07/16/24] spironolactone 25 mg tablet (Aldactone) 25 mg PO DAILY 06/13/20 [History Confirmed 07/16/24] anastrozole 1 mg tablet 1 mg PO DAILY 01/16/23 [History Confirmed 07/16/24] apixaban 5 mg tablet (Eliquis) 5 mg PO BID 01/16/23 [History Confirmed 07/27/24] calcium 600 mg (as carbonate)-vitamin D3 5 mcg (200 unit) capsule (Calcium 600 +D(3)) 1 cap PO DAILY 01/16/23 [History Confirmed 07/16/24] levothyroxine 50 mcg tablet 50 mcg PO QAM 01/16/23 [History Confirmed 07/27/24] linaclotide 290 mcg capsule (Linzess) 72 mcg PO DAILY.0730A 01/16/23 [History Confirmed 07/28/24] magnesium 250 mg tablet 600 mg PO DAILY 01/16/23 [History Confirmed 07/16/24] montelukast 10 mg tablet 10 mg PO QAM 01/16/23 [History Confirmed 07/27/24] bumetanide 1 mg PO QAM 09/04/23 [History Confirmed 07/16/24] Lactobacillus rhamnosus-Bifidobac. animalis 3 billion cell capsule (Weave) 1 cap PO DAILY 06/15/24 [History Confirmed 07/16/24] ascorbic acid (vitamin C) 500 mg tablet (Vitamin C) 500 mg PO daily 30 days #30 caps 06/15/24 [Rx Confirmed 07/16/24] ferrous sulfate 325 mg (65 mg iron) tablet (Iron (ferrous sulfate)) 325 mg PO tid 30 days #90 caps 06/15/24 [Rx Confirmed 07/16/24] acetaminophen 650 mg tablet,extended release (8 Hour Pain Reliever) 1,300 mg PO Q12HR PRN fever or pain 07/13/24 [History Confirmed 07/16/24] cholecalciferol (vitamin D3) 50 mcg (2,000 unit) capsule (Vitamin D3) 25 mcg PO DAILY 07/13/24 [History Confirmed 07/27/24] duloxetine 30 mg capsule,delayed release 30 mg PO QPM 07/13/24 [History Confirmed 07/16/24] esomeprazole magnesium 40 mg capsule,delayed release 40 mg PO QAM 07/13/24 [History Confirmed 07/27/24] fluticasone furoate 200 mcg-vilanterol 25 mcg/dose inhalation powder (Breo Ellipta) 1 inh inhalation QAM 07/13/24 [History Confirmed 07/16/24] inulin-sorbitol 2 gram chewable tablet (Fiber Supplement (inulin)) 5 tab PO DAILY 07/13/24 [History Confirmed 07/16/24] acetaminophen 500 mg tablet 1,000 mg (2 x 500 mg) PO Q8H 30 days #180 tabs 07/16/24 [Rx Confirmed 07/16/24] cefadroxil 500 mg capsule 500 mg PO Q12H 7 days #14 tabs 07/16/24 [Rx Confirmed 07/16/24] ondansetron HCl 4 mg tablet 4 mg PO Q8H PRN Nausea #9 tabs 07/16/24 [Rx Confirmed 07/16/24] oxycodone 5 mg tablet 5 mg PO Q4H PRN Pain 7 days #42 tabs 07/16/24 [Rx Confirmed 07/16/24] polyethylene glycol 3350 17 gram/dose oral powder (Miralax) 17 g PO daily 7 days#7 packets 07/16/24 [Rx Confirmed 07/16/24] prednisone 10 mg tablet 10 mg PO daily 10 days #10 tabs 07/16/24 [Rx Confirmed 07/16/24] sennosides 8.6 mg-docusate sodium 50 mg tablet (Senokot-S) 2 tab PO daily 30 days #60 tabs 07/16/24 [Rx Confirmed 07/16/24] tramadol 50 mg tablet 50 mg PO q6h PRN Pain 7 days #28 tabs 07/16/24 [Rx Confirmed 07/16/24] Exam Physical Exam Vital Signs: Temp Pulse Resp BP Pulse Ox O2 Del Method O2 Flow Rate 98.8 F 69 16 131/71 96 Room Air 2 07/28/24 12:09 07/28/24 12:09 07/28/24 12:09 07/28/24 12:09 07/28/24 12:09 07/28/24 12:24 07/27/24 19:19 Narrative: Gen: Awake, oriented, cooperative. HEENT: Atraumatic, PERRL, EOMI Resp: No respiratory distress Cardio: Extremities well perfused MSK: Moves all extremities spontaneously Neuro: CN grossly intact Skin: No swelling, erythema, ecchymosis appreciated Psych: Mood and affect normal Results - Phys. Rehab Labs Labs: Laboratory Results - last 24 hr 07/28/24 05:25 Corrected WBC 7.7 Uncorrected WBC Count 7.7 RBC 3.29 L Hgb 9.4 L Hct 27.3 L MCV 83.0 MCH 28.4 MCHC 34.2 RDW 17.6 H Plt Count 156 MPV 7.9 Neut % (Auto) 74.2 Lymph % (Auto) 16.3 Dundy % (Auto) 9.3 Eos % (Auto) 0.0 Baso % (Auto) 0.2 Nucleat RBC Rel Count 0.0 Neut # (Auto) 5.7 Lymph # (Auto) 1.3 Dundy # (Auto) 0.7 Eos # (Auto) 0.0 Baso # (Auto) 0.0 PHA Creatinine Clear 32.71 Sodium 139 Potassium 3.9 Chloride 105 Carbon Dioxide 26.8 Anion Gap 11.1 BUN 26 H Creatinine 1.37 H Est GFR (CKD-EPI) 38.312 Glucose 122 H Calcium 8.9 Assessment/Plan (1) Primary osteoarthritis of left knee: (2) Left knee pain: (3) S/P total knee arthroplasty: (4) Anemia: (5) Impaired mobility and activities of daily living: Plan This is a 84-year-old female who presents with multifactorial functional declinein the setting of left TKA. She has continued impaired mobility and impaired independence with ADLs and IADLs requiring PT/OT 5-7 days/week 3 hours/day to maximize safety and independence with functional ability and self-care. Primary Rehabilitation Diagnosis: left TKA Patient is appropriate for acute inpatient rehab facility once medically stable per primary service and consultants. The patient has functional deficits requiring both active and ongoing therapeutic intervention of at least 2 disciplines of therapy, physical therapy/Occupational Therapy +/- speech therapy. Patient has worked appropriately with multiple disciplines of therapy on acute care, and demonstrates ability to tolerate and participate and make reasonable gains with at least a 15 hour/week inpatient rehabilitation program. Due to medical complexity as noted, rehabilitation physician supervision is bothreasonable and necessary, including [id number] visits at least 3 days/week with the need to treat, manage and modify course of treatment, including participating in at least once weekly interdisciplinary team conferences. The patient requires multidisciplinary rehabilitation treatment including rehabilitation physician at least 3 times per week, 24-hour rehabilitation nursing, physical occupational therapy, plus/minus speech-language pathology, rehabilitation case management, nutrition services, plus minus rehabilitation psychology. This case cannot be best/most appropriately managed at a lower level of care. Estimated length of rehabilitation stay: 10 Days Prior Level of Function: IND Expected functional status at discharge from rehab: Self-care (ADLs) : Mod I Bed Mobility/Transfers: Mod I Ambulation: Mod I There is a reasonable plan in place for discharge to the community. Overall prognosis is fair to good to make functional gains that would make substantial difference in the eventual discharge setting. Patient was personally seen by me, Dr. Lara, on the day of encounter, reviewed the history and the relevant portions of the chart, including current orders, allied health and environmental remediation consultant notes, labs/imaging and performed chua elements of exam and I formulated the plan of care and facilitated the medical decision making. I completed a substantive portion of this encounter, the medical decision makingportion of this note in its entirety, including Allied health note review, nursing note review, environmental remediation consultant note review, discussion with nursing and case management, and more than 50% of my time was spent on counseling and coordination of care, time spent 60 minutes Documented By: Herb Lara MD [id number] Signed By: <Electronically signed by Herb Lara MD> 07/28/24 1348 [facility] Work Phone: Evaluation + Plan note No data available for this section [facility] Evaluation note* Diagnosis Chronic pain of left ankle Arthritis of left ankle Unspecified arthropathy, ankle and foot documented in this encounter [facility] Phone: evaluation note* Diagnosis Acquired hypothyroidism Unspecified hypothyroidism documented in this encounter [facility] Phone: evaluation note* Diagnosis Paroxysmal atrial fibrillation (HCC) Atrial fibrillation Encounter for monitoring diuretic therapy Encounter for therapeutic drug monitoring Chronic combined systolic and diastolic congestive heart failure (HCC) Chronic combined systolic and diastolic heart failure documented in this encounter [facility] Phone: evaluation note* Diagnosis Ductal carcinoma in situ of right breast Carcinoma in situ of breast documented in this encounter [facility] Phone: evaluation note* Diagnosis Paroxysmal atrial fibrillation (HCC) Atrial fibrillation Encounter for monitoring diuretic therapy Encounter for therapeutic drug monitoring documented in this encounter [facility] Phone: evaluation note* Diagnosis Acute pain of both shoulders Myalgia Mylagia and myositis, unspecified Acute pain of both hips Paroxysmal atrial fibrillation (HCC) Atrial fibrillation Coronary artery disease involving elem heart without angina pectoris, unspecified vessel or lesion type Mild persistent asthma, unspecified whether complicated Vitamin D deficiency Unspecified vitamin D deficiency documented in this encounter [facility] Phone: evaluation note* Diagnosis Other form of dyspnea documented in this encounter [facility] Phone: evaluation note* Diagnosis Kidney stones Calculus of kidney documented in this encounter [facility] Phone: evaluation noteNo [employer] Other Evaluation note* Diagnosis Stiffness of finger joint of right hand documented in this encounter [employer] Phone: evaluation note* Diagnosis Ductal carcinoma in situ (DCIS) of right breast- Primary [facility] [place] [facility]* Diagnosis Ductal carcinoma in situ (DCIS) of right breast- Primary [facility] [place] [facility]* Diagnosis Decreased diffusion capacity Other specified alveolar and parietoalveolar pneumonopathies documented in this encounter [employer] Phone: evaluation note* Diagnosis Lung nodule seen on imaging study documented in this encounter [employer] Phone: evaluation note* Diagnosis Decreased diffusion capacity Other specified alveolar and parietoalveolar pneumonopathies documented in this encounter [employer] Phone: evaluation note* Diagnosis Decreased diffusion capacity Other specified alveolar and parietoalveolar pneumonopathies documented in this encounter [employer] Phone: evaluation note* Diagnosis Intraductal carcinoma in situ of right breast Carcinoma in situ of breast documented in this encounter [employer] Phone: evaluation note* Diagnosis Mass of upper lobe of left lung- Primary Ductal carcinoma in situ (DCIS) of right breast Need for influenza vaccination Need for prophylactic vaccination and inoculation against influenza [facility] [place] [facility]* Diagnosis Lung nodule seen on imaging study documented in this encounter [employer] Phone: evaluation note* Diagnosis PMR (polymyalgia rheumatica) (HCC) Polymyalgia rheumatica Paroxysmal atrial fibrillation (HCC) Atrial fibrillation Secondary hyperparathyroidism (HCC) Secondary hyperparathyroidism (of renal origin) Acquired hypothyroidism Unspecified hypothyroidism Hypercholesterolemia Pure hypercholesterolemia documented in this encounter [employer] Phone: evaluation note* Diagnosis Malignant neoplasm of lung, unspecified laterality, unspecified part of lung (HCC)- [facility] Diagnosis Malignant neoplasm of upper lobe of left lung (HCC)- Primary [facility] [place] [facility]* Diagnosis Preoperative testing- Primary Preoperative examination, unspecified Bilateral carotid artery stenosis Occlusion and stenosis of carotid artery without mention of cerebral infarction Malignant neoplasm of upper lobe of left lung (HCC) Encounter for preoperative vascular examination Other specified pre-operative examination Shortness of breath Shortness of breath [facility] Diagnosis Preoperative testing Preoperative examination, unspecified Malignant neoplasm of upper lobe of left lung (HCC) [facility] Diagnosis Preoperative testing Preoperative examination, unspecified Malignant neoplasm of upper lobe of left lung (HCC) [facility] [place] [facility]* Diagnosis Pre-op examination- Primary Preoperative examination, unspecified Cerebrovascular accident (CVA), unspecified mechanism (HCC) Former smoker Personal history of tobacco use, presenting hazards to health JENNIFER (obstructive sleep apnea) Obstructive sleep apnea (adult) (pediatric) Mild persistent asthma without complication Unspecified asthma Chronic congestive heart failure, unspecified heart failure type (HCC) Atherosclerosis of elem coronary artery of elem heart without angina pectoris Hypercholesteremia Pure hypercholesterolemia Paroxysmal atrial fibrillation (HCC) Atrial fibrillation Hx of aortic valve repair Personal history of surgery to heart and great vessels, presenting hazards to health Mitral valve problem Other and unspecified mitral valve diseases Chronic kidney disease, unspecified CKD stage Ductal carcinoma in situ (DCIS) of right breast Malignant neoplasm of upper lobe of left lung (HCC) [facility] [place] [facility]* Diagnosis Preoperative testing Preoperative examination, unspecified Encounter for preoperative vascular examination Other specified pre-operative examination Malignant neoplasm of upper lobe of left lung (HCC) [facility] [place] [facility]* Diagnosis Bilateral carotid artery stenosis Occlusion and stenosis of carotid artery without mention of cerebral infarction Malignant neoplasm of upper lobe of left lung (HCC) documented [facility] this [facility] [place] [facility]* Diagnosis Malignant neoplasm of upper lobe of left lung (HCC)- Primary Malignant neoplasm of upper lobe of left lung (HCC) documented [facility] this [facility] [place] [facility]* Diagnosis Hospital discharge follow-up- Primary Other follow-up examination documented [facility] this [facility] [place] [facility]* Diagnosis Post-operative state- Primary Other postprocedural status [facility] [place] [facility]* Diagnosis Malignant neoplasm of upper lobe of left lung (HCC)- Primary [facility] [place] [facility]* Diagnosis Adenocarcinoma of left lung, stage 1 (HCC)- Primary documented [facility] this [facility] [place] [facility]* Diagnosis Exertional dyspnea Other dyspnea and respiratory abnormality documented in this encounter [facility] [employer] Work Phone: evaluation noteNo assessment information available [facility] Work Phone: Evaluation note* Diagnosis Malignant neoplasm of upper lobe of left lung (HCC)- Primary Chest wall pain following surgery Acute post-thoracotomy pain History of ductal carcinoma in situ (DCIS) of breast [facility] [place] [facility]* Diagnosis Malignant neoplasm of upper lobe of left lung (HCC)- Primary History of ductal carcinoma in situ (DCIS) of breast [facility] [place] [facility]* Diagnosis Malignant neoplasm of upper lobe of left lung (HCC)- Primary History of ductal carcinoma in situ (DCIS) of breast Malignant neoplasm of lung, unspecified laterality, unspecified part of lung (HCC) Ductal carcinoma in situ (DCIS) of right breast Abnormal mammogram Abnormal mammogram, unspecified [facility] Malignant neoplasm of upper lobe of left lung (HCC)- Primary [facility] [place] [facility]* Diagnosis Ductal carcinoma in situ (DCIS) of right breast- Primary [facility] [place] [facility]* Diagnosis Onset Date Resolution Status Primary osteoarthritis of left knee acute Chronic pain acute Left knee pain acute Primary osteoarthritis of left knee acute [facility] Work Phone: Evaluation note* Diagnosis Malignant neoplasm of upper lobe of left lung (HCC)- Primary Ductal carcinoma in situ (DCIS) of right breast Age-related osteoporosis without current pathological fracture Senile osteoporosis [facility] [place] [facility]* Diagnosis Onset Date Resolution Status Chronic pain acute Left knee pain acute Primary osteoarthritis of left knee acute Right hip pain acute [facility] Work Phone: Evaluation note* Diagnosis Onset Date Resolution Status Chronic pain acute Left knee pain acute Primary osteoarthritis of left knee acute Right hip pain acute Chronic pain acute Left knee pain acute Primary osteoarthritis of left knee acute [facility] Work Phone: Evaluation note* Diagnosis Onset Date Resolution Status Chronic pain acute Left knee pain acute Primary osteoarthritis of left knee acute Chronic pain acute Left knee pain acute Primary osteoarthritis of left knee acute [facility] Work Phone: evaluation note* Diagnosis Post-operative state Other postprocedural status [facility]* Diagnosis Onset Date Resolution Status Chronic pain acute Left knee pain acute Primary osteoarthritis of left knee acute Primary osteoarthritis of left knee acute [facility] Work Phone: Evaluation note* Diagnosis Ductal carcinoma in situ of right breast Carcinoma in situ of breast [facility] encounter [facility] [place] [facility]* Diagnosis Onset Date Resolution Status Chronic pain acute Left knee pain acute Primary osteoarthritis of left knee acute Primary osteoarthritis of left knee acute Chronic pain acute Left knee pain acute Primary osteoarthritis of left knee acute [facility] Work Phone: Evaluation note* Diagnosis Hypercholesterolemia Pure hypercholesterolemia Acquired hypothyroidism Unspecified hypothyroidism Paroxysmal atrial fibrillation (HCC) Atrial fibrillation PMR (polymyalgia rheumatica) (HCC) Polymyalgia rheumatica documented in this encounter [facility] note* Diagnosis Malignant neoplasm of upper lobe of left lung (HCC)- Primary Ductal carcinoma in situ (DCIS) of right breast documented [facility] this [facility] [place] [facility]* Diagnosis Obstructive sleep apnea syndrome Obstructive sleep apnea (adult) (pediatric) documented in this encounter [facility] note* Diagnosis Malignant neoplasm of upper lobe of left lung (HCC)- Primary Ductal carcinoma in situ (DCIS) of right breast Age-related osteoporosis without current pathological fracture Senile osteoporosis documented [facility] this [facility] [place] [facility]* Diagnosis Ductal carcinoma in situ (DCIS) of right breast- Primary [facility] [place] [facility]* Diagnosis Malignant neoplasm of upper lobe of left lung (HCC)- Primary Ductal carcinoma in situ (DCIS) of right breast Age-related osteoporosis without current pathological fracture Senile osteoporosis documented [facility] this [facility] [place] [facility]* Diagnosis Seborrheic keratosis- Primary Lentigines Angioma of skin Capillary angioma Nevus, non-neoplastic Seborrheic keratosis, inflamed documented in this encounter [facility] note* Diagnosis Normocytic anemia Anemia, unspecified Other iron deficiency anemia Stage 3 chronic kidney disease, unspecified whether stage 3a or 3b CKD (HCC) Controlled type 2 diabetes mellitus without complication, without long-term current use of insulin (HCC) documented in this encounter [facility] note* Diagnosis Malignant neoplasm of upper lobe of left lung (HCC)- Primary Dysuria Anemia, unspecified type Ductal carcinoma in situ (DCIS) of right breast documented [facility] this [facility] [place] [facility]* Diagnosis Anemia, unspecified type- Primary documented in this [facility] [place] [facility]* Diagnosis Iron deficiency anemia due to chronic blood loss- Primary Iron deficiency anemia secondary to blood loss (chronic) Anemia, unspecified type Chronic kidney disease, stage 1 Ductal carcinoma in situ (DCIS) of right breast Malignant neoplasm of upper lobe of left lung (HCC) documented [facility] this [facility] [place] [facility]* Diagnosis Iron deficiency anemia due to chronic blood loss- Primary Iron deficiency anemia secondary to blood loss (chronic) documented [facility] [place] [facility]* Diagnosis Iron deficiency anemia due to chronic blood loss- Primary Iron deficiency anemia secondary to blood loss (chronic) [facility] [place] [facility]* Diagnosis Iron deficiency anemia due to chronic blood loss- Primary Iron deficiency anemia secondary to blood loss (chronic) [facility]* Diagnosis Malignant neoplasm of unspecified part of unspecified bronchus or lung (HCC)- Primary [facility] [place] [facility]* Diagnosis Malignant neoplasm of unspecified part of unspecified bronchus or lung (HCC) [facility] [place] [facility]* Diagnosis Ductal carcinoma in situ (DCIS) of right breast- [facility] Diagnosis Iron deficiency anemia due to chronic blood loss- Primary Iron deficiency anemia secondary to blood loss (chronic) Malignant neoplasm of lung, unspecified laterality, unspecified part of lung (HCC) History of ductal carcinoma in situ (DCIS) of breast Infrarenal abdominal aortic aneurysm (AAA) without rupture Stage 3a chronic kidney disease (HCC) Ductal carcinoma in situ (DCIS) of right breast Flank pain Abdominal pain, unspecified site Malignant neoplasm of upper lobe of left lung (HCC) Abdominal aortic aneurysm (AAA) without rupture, unspecified part Iron deficiency anemia, unspecified iron deficiency anemia type 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 Long-term (current) use of anticoagulants Primary malignant neoplasm of left lung (HCC) Personal history of malignant neoplasm of lung Personal history of malignant neoplasm of bronchus and lung Personal history of malignant neoplasm of breast Malignant neoplasm of right breast in female, estrogen receptor positive, unspecified site of breast (HCC) [facility] [place] [facility]* Diagnosis Encounter for other preprocedural examination- Primary Infrarenal abdominal aortic aneurysm (AAA) without rupture Nonspecific abnormal results of kidney function study [facility] [place] [facility]* Diagnosis Penetrating atherosclerotic ulcer of aorta Atherosclerosis of aorta [facility] [place] [facility]* Diagnosis Left posterior capsular opacification- Primary Unspecified after-cataract Dry eyes Unspecified tear film insufficiency Blepharitis of upper and lower eyelids of both eyes, unspecified type Cyst of left lower eyelid Pain, [facility] Cyst of left lower eyelid- Primary Pain, eyelid Basal cell carcinoma (BCC) of left lower eyelid [facility] Additional Instructions DISCHARGE INSTRUCTIONS FOR ENDOSCOPY FOR SNYDER/EGD/ERCP/PEG: -Your throat may feel sore today from the scope that the doctor passed through your throat to visualize your stomach. Take a throat lozenge or suck on ice to ease the discomfort. -Do NOT smoke. -You may notice some streaks of blood in your sputum if the doctor has taken a biopsy. Notify the doctor if you cough up large amounts of blood. -Expect a gassy or full feeling after esophagoscopy. Report any persistent pain or vomiting. -Take it easy today. You need not stay in bed, but avoid strenuous activities such as jogging. FOR SEDATION FOR 24 HOURS: -NO driving -Do NOT operate machinery such as power tools, lawn mowers, snow blowers, sewing machines, etc. -Avoid alcoholic beverages and drugs for allergies, nerves, or sleep. -Do NOT stay alone. Do NOT leave your child unattended. -Do NOT make important personal or business decisions or sign any legal documents. -Eat solid foods and drink liquids in smaller amounts than usual until normal appetite returns. If you should experience an upset stomach, liquids high in sugar content (soda, Ivan-aid, non-acid juices) are recommended. -You can resume normal activities tomorrow. FOLLOW UP Please call the office and make a follow up appointment to see me in 6-8 weeks. Soft diet today. Resume normal diet tomorrow. -Notify the doctor if you have any problems. -Office number [phone] Work Phone: Hospital Discharge instructions Additional Instructions DISCHARGE INSTRUCTIONS FOR ENDOSCOPY FOR SNYDER/EGD/ERCP/PEG: -Your throat may feel sore today from the scope that the doctor passed through your throat to visualize your stomach. Take a throat lozenge or suck on ice to ease the discomfort. -Do NOT smoke. -You may notice some streaks of blood in your sputum if the doctor has taken a biopsy. Notify the doctor if you cough up large amounts of blood. -Expect a gassy or full feeling after esophagoscopy. Report any persistent pain or vomiting. -Take it easy today. You need not stay in bed, but avoid strenuous activities such as jogging. FOR SEDATION FOR 24 HOURS: -NO driving -Do NOT operate machinery such as power tools, lawn mowers, snow blowers, sewing machines, etc. -Avoid alcoholic beverages and drugs for allergies, nerves, or sleep. -Do NOT stay alone. Do NOT leave your child unattended. -Do NOT make important personal or business decisions or sign any legal documents. -Eat solid foods and drink liquids in smaller amounts than usual until normal appetite returns. If you should experience an upset stomach, liquids high in sugar content (soda, Ivan-aid, non-acid juices) are recommended. -You can resume normal activities tomorrow. FOLLOW UP Please call the office and make a follow up appointment to see me in 6-8 weeks. -Notify the doctor if you have any problems. -Office number [phone] Work Phone: [facility] for referral (narrative)* Diagnostic Procedure Only (Routine) - Pending Review Specialty Diagnoses / Procedures Referred By Frances hayes Referred To Contact BR IMAGING Diagnoses Ductal carcinoma in situ (DCIS) of right breast Procedures KAYLAH DIAGNOSTIC BILAT DIAGNOSTIC MAMMOGRAPHY COMPUTER-AIDED DETCJ BI Babatunde Pizarro MD [address] [place] [address] [place] [address] Br Imaging [address] [place] [address] Referral ID Status Reason Start Date Expiration Date Visits Requested Visits Authorized [id number] Pending Review Auto-Generat ed Referral 02/20/2022 03/22/2023 1 1 [facility] for referral (narrative)* Outpatient Procedure (Routine) - Pending Review Specialty Diagnoses / Procedures Referred By Frances Referred To Contact [facility] Diagnoses Preoperative testing Procedures SIX MINUTE WALK CARDIOPULMONARY [place] [address] [place] [address] [facility] [place] [address] [place] [address] Referral ID Status Reason Start Date Expiration Date Visits Requested Visits Authorized [id number] Pending Review Auto-Generat ed Referral 2 06/15/2023 1 1 * Diagnostic Procedure Only (Routine) - Pending Review Specialty Diagnoses / Procedures Referred By Contac t Referred To Contact MOLECULAR & FUNCTIONAL IMAGING Diagnoses Preoperative testing Encounter for preoperative vascular examination Procedures NM LUNG QUANT PERFUSION QUANT DIFFERENTIAL PULM PERFUSION W/[place] [address] [place] [address] Molecular & Functional Imaging [address] [id number] Referral ID Status Reason Start Date Expiration Date Visits Requested Visits Authorized [id number] Pending Review Auto-Generat ed Referral 2 06/15/2023 1 1 * Outpatient Procedure (Routine) - Pending Review Specialty Diagnoses / Procedures Referred By Contac t Referred To Contact [facility] Diagnoses Preoperative testing Procedures SPIROMETRY BASELINE ONLY SPMTRY W/VC EXPIRATORY RANJEET W/[place] [address] [address] [id number] Res[facility] [place] [address] [place] [address] [phone] Referral ID Status Reason Start Date Expiration Date Visits Requested Visits Authorized [id number] Pending Review Auto-Generat ed Referral 2 06/15/2023 1 1 * Outpatient Procedure (Routine) - Pending Review Specialty Diagnoses / Procedures [facility] Diagnoses Preoperative testing Procedures LUNG DIFFUSION CAPACITY (DLCO) [place] [address] [phone] [facility] [place] [address] [place] [address] Referral ID Status Reason Start Date Expiration Date Visits Requested Visits Authorized [id number] Pending Review Auto-Generat ed Referral 2 06/15/2023 1 1 * Outpatient Procedure (Routine) - Pending Review Specialty Diagnoses / Procedures Referred By Contac t Referred To Contact [facility] Diagnoses Bilateral carotid artery stenosis Procedures US CAROTID ARTERIES JOVANA VAS LAB DUPLEX SCAN EXTRACRANIAL [place] [address] [place] [address] [facility] Vascular [place] [address] [place] [address] Referral ID Status Reason Start Date Expiration Date Visits Requested Visits Authorized [id number] Pending Review Auto-Generat ed Referral 2 05/16/2023 1 1 * Outpatient Procedure (Routine) - Pending Review Specialty Diagnoses / Procedures Referred By Frances t Referred To Contact [facility] Diagnoses Preoperative testing Procedures ECG COMPLETE ECG ROUTINE ECG W/LEAST 12 LDS W/I&[place] [address] [place] [address] [id number] [place] [address] Referral ID Status Reason Start Date Expiration Date Visits Requested Visits Authorized [id number] Pending Review Auto-Generat ed Referral 2 05/16/2023 1 1 [facility] for referral (narrative)* Diagnostic Procedure Only (Routine) - Closed Specialty Diagnoses / Procedures Referred By Frances hayes Referred To Contact MOLECULAR & FUNCTIONAL IMAGING Diagnoses Preoperative testing Encounter for preoperative vascular examination Procedures NM LUNG QUANT PERFUSION QUANT DIFFERENTIAL PULM PERFUSION W/[place] [address] [place] [address] Molecular & Functional Imaging [address] [place] [address] Referral ID Status Reason Start Date Expiration Date V isits Requested Visits Authorized [id number] Closed Auto-Generate d Referral 05/16/2022 06/15/2023 1 1 [facility] for referral (narrative)* Outpatient Procedure (Routine) - Closed Specialty Diagnoses / Procedures [facility] Referred To Contact [facility] Diagnoses Bilateral carotid artery stenosis Procedures US CAROTID ARTERIES JOVANA VAS LAB DUPLEX SCAN EXTRACRANIAL ART [place] [address] [place] [address] Heart [facility] [place] [address] [place] [address] Referral ID Status Reason Start Date Expiration Date V isits Requested Visits Authorized [id number] Closed Auto-Generate d Referral 05/16/2022 05/16/2023 1 1 [facility] for referral (narrative)* Diagnostic Procedure Only (Routine) - Pending Review Specialty Diagnoses / Procedures Referred By Contac t Referred To Contact BR IMAGING Diagnoses Ductal carcinoma in situ (DCIS) of right breast Abnormal mammogram Procedures US BREAST LTD LEFT US BREAST UNI REAL TIME WITH IMAGE LIMITED Bryanna Adan MD [address] [place] [address] [place] [address] Br Imaging [address] [place] [phone] Referral ID Status Reason Start Date Expiration Date Visits Requested Visits Authorized [id number] Pending Review Auto-Generat ed Referral 04/08/2023 05/07/2024 1 1 * Diagnostic Procedure Only (Routine) - Pending Review Specialty Diagnoses / Procedures Referred By Contac t Referred To Contact BR IMAGING Diagnoses Ductal carcinoma in situ (DCIS) of right breast Abnormal mammogram Procedures US BREAST LTD RIGHT US BREAST UNI REAL TIME WITH IMAGE LIMITED Bryanna Adan MD [address] [place] [address] [place] [address] Br Imaging [address] [place] [phone] Referral ID Status Reason Start Date Expiration Date Visits Requested Visits Authorized [id number] Pending Review Auto-Generat ed Referral 04/08/2023 05/07/2024 1 1 [facility] for referral (narrative)No reason for referral information [facility] Work Phone: Reason for visit NarrativePATIENT HERE FOR SELF REFERRAL FOR COMPLAINTS OF GAS PAIN, PATIENT WAS LAST SEEN 2018.[facility] Other Reason for visit Narrative* Diagnostic Procedure Only (Routine) - Closed Specialty Diagnoses / Procedures Referred By Frances hayes Referred To Contact MOLECULAR & FUNCTIONAL IMAGING Diagnoses Preoperative testing Encounter for preoperative vascular examination Procedures NM LUNG QUANT PERFUSION QUANT DIFFERENTIAL PULM PERFUSION W/[place] [address] [place] [address] Molecular & Functional Imaging [address] [place] [address] Referral ID Status Reason Start Date Expiration Date V isits Requested Visits Authorized [id number] Closed Auto-Generate d Referral 05/16/2022 06/15/2023 1 1 [facility] for visit Narrative* Outpatient Procedure (Routine) - Closed Specialty Diagnoses / Procedures Referred By Frances hayes Referred To Contact [facility] Diagnoses Bilateral carotid artery stenosis Procedures US CAROTID ARTERIES JOVANA VAS LAB DUPLEX SCAN EXTRACRANIAL ART [place] [address] [place] [address] Heart [facility] [place] [address] [place] [address] Referral ID Status Reason Start Date Expiration Date V isits Requested Visits Authorized [id number] Closed Auto-Generate d Referral 05/16/2022 05/16/2023 1 1 [facility] for visit Narrative* [place] Prior Authorization (Routine) - Authorized Specialty Diagnoses / Procedures Referred By Frances hayes Referred To Contact Diagnoses Iron deficiency anemia due to chronic blood loss Procedures IRON SUCROSE INJECTION PER 1 MG Katie Cook PA-C [address] [place] [address] Phone: tel: fax: Hematology/Oncology [address] [place] [address] Phone: tel: fax: Referral ID Status Reason Start Date Expiration Date V isits Requested Visits Authorized [id number] Authorized 12/15/2024 06/30/2025 1 1 [facility] Reason for Referral Status Reason Specialty Diagnoses / Procedures Re ferred By Contact Referred To Contact Pending Review Radiology Diagnoses Encounter for imaging to assess osteoporosis Asymptomatic age-related postmenopausal state Procedures DEXA BONE DENSITY 2 SITES Jovan Miller MD [address] [place] [address] Status Reason Specialty Diagnoses / Procedures Referred By Contact Referred To Contact Pending Review Radiology Diagnoses Breast pain, right Procedures KAYLAH DIGITAL DIAGNOSTIC W OR WO CAD RIGHT Jovan Miller MD [address] [place] [address] Status Reason Specialty Diagnoses / Procedures Referred By Contact Referred To Contact Pending Review Radiology Diagnoses Breast pain, right Procedures US BREAST COMPLETE RIGHT Jovan Miller MD [facility] [place] [address] Status Reason Specialty Diagnoses / Procedures Referre d By Contact Referred To Contact Open Radiology Diagnoses Abnormal kidney function Procedures US RENAL COMPLETE Vahe Llanos MD [address] [place] [address] Status Reason Specialty Diagnoses / Procedures Referred By Contact Referred To Contact Pending Review Radiology Diagnoses Breast pain Procedures US BREAST COMPLETE RIGHT ItEvelina peaceic, DO [address] [id number] Status Reason Specialty Diagnoses / Procedures Referred By Contact Referred To Contact Authorized Radiology Diagnoses Breast pain Procedures KAYLAH CHRISSY DIGITAL DIAGNOSTIC UNILATERAL RIGHT ItzEvelina zacariasic, DO [address] [id number] Status Reason Specialty Diagnoses / Procedures Referred By Contact Referred To Contact Pending Review Radiology Diagnoses Enlarged lymph nodes Procedures US NON OB TRANSVAGINAL Jasmyne Casillas, SWING FRAME GRINDER OPERATOR [place] [address] Status Reason Specialty Diagnoses / Procedures Re ferred By Contact Referred To Contact Closed Radiology Diagnoses HX: breast cancer Pelvic lymphadenopathy Procedures US PELVIS COMPLETE Delta, Jasmyne M, SWING FRAME GRINDER OPERATOR - LAMBSKIN TRIMMER [address] [place] [address] [facility] [address] [place] [address] Status Reason Specialty Diagnoses / Procedures Referred By Contact Referred To Contact Pending Review Radiology Diagnoses Breast cancer screening by mammogram Procedures KAYLAH DIGITAL SCREEN W CAD BILATERAL KAYLAH DIGITAL SCREEN W OR WO CAD BILATERAL Jovan Miller MD [address] [place] [address] Specialty Diagnoses / Procedures Referred By Contac t Referred To Contact Cardiology Diagnoses Other form of dyspnea R06.09 (ICD-10-CM) - Other form of dyspnea Procedures ECHO Complete 2D W Doppler W Color HI ECHO HEART XTHORACIC,COMPLETE W DOPPLER [address]35 - HI ECHO HEART XTHORACIC,COMPLETE W DOPPLER Lauren Peña, SWING FRAME GRINDER OPERATOR - LAMBSKIN TRIMMER [address] [place] [address] Referral ID Status Reason Start Date Expiration Date Visits Re quested Visits Authorized [id number] Closed 09/27/2021 09/27/2022 1 1 Specialty Diagnoses / Procedures Referred By Contac t Referred To Contact Radiology Diagnoses Kidney stones N20.0 (ICD-10-CM) - Kidney stones Procedures US RENAL COMPLETE HI US,RETROPERIT,REAL TIME,COMPLETE [address] - HI US,RETROPERIT,REAL TIME,COMPLETE Vahe Llanos MD [address] [place] [address] Referral ID Status Reason Start Date Expiration Date Visits Re quested Visits Authorized [id number] Closed 09/13/2021 09/13/2022 1 1 Specialty Diagnoses / Procedures Referred By Contac t Referred To Contact Radiology Diagnoses Decreased diffusion capacity Procedures CT CHEST HIGH RESOLUTION Shaniqua Ellsworth MD [address] [facility] [address] [place] [address] Referral ID Status Reason Start Date Expiration Date Visits Re quested Visits Authorized [id number] Closed 03/24/2022 03/24/2023 1 1 Specialty Diagnoses / Procedures Referred By Contac t Referred To Contact Radiology Diagnoses Lung nodule seen on imaging study Procedures CT CHEST LOW DOSE (LDCT) Shaniqua Ellsworth MD [address] [address] Referral ID Status Reason Start Date Expiration Date Visits Re quested Visits Authorized [id number] Closed 03/19/2022 03/19/2023 1 1 Specialty Diagnoses / Procedures Referred By Contac t Referred To Contact Radiology Diagnoses Decreased diffusion capacity Procedures NM LUNG VENT/PERFUSION (VQ) Shaniqua Ellsworth MD [address] [address] Referral ID Status Reason Start Date Expiration Date Visits Re quested Visits Authorized [id number] Closed 03/19/2022 03/19/2023 1 1 Specialty Diagnoses / Procedures Referred By Contac t Referred To Contact Radiology Diagnoses Intraductal carcinoma in situ of right breast Procedures KAYLAH CHRISSY DIGITAL DIAGNOSTIC BILATERAL Babatunde Pizarro MD [address] [place] [address] Referral ID Status Reason Start Date Expiration Date Visits Re quested Visits Authorized [id number] Closed 02/20/2022 02/20/2023 1 1 Specialty Diagnoses / Procedures Referred By Contac t Referred To Contact Radiology Diagnoses Lung nodule seen on imaging study Procedures PET CT SKULL BASE TO MID THIGH Shaniqua Ellsworth MD [address] [address] Referral ID Status Reason Start Date Expiration Date Visits Re quested Visits Authorized [id number] Closed 04/04/2022 04/04/2023 1 1 Specialty Diagnoses / Procedures Referred By Contac t Referred To Contact MR IMAGING Diagnoses Malignant neoplasm of lung, unspecified laterality, unspecified part of lung (HCC) Procedures MRI BRAIN WO/W IVCON MRI BRAIN BRAIN STEM W/O W/CONTRAST MATERIAL Chelle Marin, SWING FRAME GRINDER OPERATOR.[facility] [address] [place] [address] Mr Imaging Referral ID Status Reason Start Date Expiration Date Visits Requested Visits Authorized [id number] Pending Review Auto-Generat ed Referral 05/01/2022 05/31/2023 1 1 Specialty Diagnoses / Procedures Referred By Contac t Referred To Contact Cardiothoracic Surgery Diagnoses Malignant neoplasm of upper lobe of left lung (HCC) Procedures CONSULT TO CARDIOTHORACIC SURGERY Bryanna Adan MD [address] [place] [address] [place] [address] Referral ID Status Reason Start Date Expiration Date Visits Requested Visits Authorized [id number] Ref Not Required PCP Requested Referral 2 05/10/2023 1 1 Specialty Diagnoses / Procedures Referred By Contac t Referred To Contact CT IMAGING Diagnoses Post-operative state Procedures CT CHEST WO IVCON DIAGNOSTIC COMPUTED TOMOGRAPHY THORAX W/O CNTRST [place] PA-C [address] [place] [address] [address] Referral ID Status Reason Start Date Expiration Date Visits Requested Visits Authorized [id number] Pending Review Auto-Generat ed Referral 07/22/2023 1 1 Specialty Diagnoses / Procedures Referred By Contac t Referred To Contact Diagnoses Exertional dyspnea Procedures 6 Minute Walk Test Gibson Singh, SWING FRAME GRINDER OPERATOR - LAMBSKIN TRIMMER [address] [address] Referral ID Status Reason Start Date Expiration Date Visits Re quested Visits Authorized [id number] Closed 07/23/2022 07/23/2023 1 1 Specialty Diagnoses / Procedures Referred By Contac t Referred To Contact CT IMAGING Diagnoses Malignant neoplasm of unspecified part of unspecified bronchus or lung (HCC) Procedures CT CHEST WO IVCON DIAGNOSTIC COMPUTED TOMOGRAPHY THORAX W/O CNTRST Bryanna Adan MD [address] [place] [address] Ct Imaging Referral ID Status Reason Start Date Expiration Date Visits Requested Visits Authorized [id number] Pending Review Auto-Generat ed Referral 01/15/2023 02/14/2024 1 1 Specialty Diagnoses / Procedures Referred By Contac t Referred To Contact BR IMAGING Diagnoses Ductal carcinoma in situ (DCIS) of right breast Procedures KAYLAH DIAGNOSTIC BILATERAL DIAGNOSTIC MAMMOGRAPHY COMPUTER-AIDED DETCJ BI Bryanna Adan MD [address] [place] [address] Br Imaging [facility] [place] [address] Referral ID Status Reason Start Date Expiration Date Visits Requested Visits Authorized [id number] Pending Review Auto-Generat ed Referral 01/15/2023 02/14/2024 1 1 Specialty Diagnoses / Procedures Referred By Contac t Referred To Contact CT IMAGING Diagnoses Malignant neoplasm of unspecified part of unspecified bronchus or lung (HCC) Procedures CT CHEST WO IVCON DIAGNOSTIC COMPUTED TOMOGRAPHY THORAX W/O CNTRST Bryanna Adan MD [address] [place] [address] [place] [address] Referral ID Status Reason Start Date Expiration Date Visits Requested Visits Authorized [id number] Authorized Auto-Generat ed Referral 11/26/2023 12/25/2024 1 1 Referral ID Status Reason Start Date Expiration Date Visits Requested Visits Authorized [id number] Pending Review Auto-Generat ed Referral 11/26/2023 12/25/2024 1 1 Referral ID Status Reason Start Date Expiration Date V isits Requested Visits Authorized [id number] Closed Auto-Generate d Referral 05/28/2023 06/26/2024 1 1 Referral ID Status Reason Start Date Expiration Date V isits Requested Visits Authorized [id number] Closed Auto-Generate d Referral 01/15/2023 02/14/2024 1 1 Referral ID Status Reason Start Date Expiration Date V isits Requested Visits Authorized [id number] Closed Auto-Generate d Referral 11/13/2022 12/13/2023 1 1 Specialty Diagnoses / Procedures Referred By Contac t Referred To Contact CT IMAGING Diagnoses Post-operative state Procedures CT CHEST WO IVCON DIAGNOSTIC COMPUTED TOMOGRAPHY THORAX [place] [address] [place] [address] [place] [address] Referral ID Status Reason Start Date Expiration Date V isits Requested Visits Authorized [id number] Closed Auto-Generate d Referral 06/22/2022 07/22/2023 1 1 Specialty Diagnoses / Procedures Referred By Contac t Referred To Contact Radiology Diagnoses Ductal carcinoma in situ of right breast Procedures KAYLAH CHRISSY DIGITAL DIAGNOSTIC BILATERAL KAYLAH DIGITAL DIAGNOSTIC W OR WO CAD BILATERAL Bryanna Adan MD [address] [place] [address] [place] [address] Referral ID Status Reason Start Date Expiration Date Visits Re quested Visits Authorized [id number] Closed 11/27/2023 11/26/2024 1 1 Referral ID Status Reason Start Date Expiration Date V isits Requested Visits Authorized [id number] Closed Auto-Generate d Referral 11/26/2023 12/25/2024 1 1 Referral ID Status Reason Start Date Expiration Date Visits Requested Visits Authorized [id number] Authorized Auto-Generat ed Referral 06/24/2025 1 1 Specialty Diagnoses / Procedures Referred By Contac t Referred To Contact Sleep Center Diagnoses Obstructive sleep apnea syndrome Procedures Baseline Diagnostic Sleep Study Shaniqua Ellsworth MD [address] [place] [address] [facility] [address] [place] [address] Referral ID Status Reason Start Date Expiration Date V isits Requested Visits Authorized [id number] Pending Review 02/27/2024 02/26/2025 1 1 Assessments Diagnosis Encounter for imaging to assess osteoporosis Osteoporosis, unspecified Asymptomatic age-related postmenopausal state Diagnosis PMR (polymyalgia rheumatica) ([facility]) Polymyalgia rheumatica Diagnosis Breast pain, right Mastodynia Diagnosis Abnormal kidney function Unspecified disorder of kidney and ureter Diagnosis Breast pain Mastodynia Diagnosis JIMMIE (acute kidney injury) ([facility]) Acute kidney failure, unspecified Diagnosis HX: breast cancer Personal history of malignant neoplasm of breast Pelvic lymphadenopathy Enlarged lymph nodes Enlargement of lymph nodes Diagnosis Breast cancer screening by mammogram Advance Directives No Advanced Directives Records FoundDocuments on File Type Date Recorded Patient Veterinary Anatomist Expl anation Advance Directive(s) 07/27/2015 6:39 AM Latest Code Status on File Code Status Date Activated Date Inactivated Comments Full Code 06/13/2022 5:25 PM Full Code Order Discussed With: Patient Documents on File Type Date Recorded Patient Veterinary Anatomist Expl anation Advance Directives and Livin g Will Advance Directives and Livin g Will 05/24/2014 5:29 PM Power of Bed Teacher Power of Bed Teacher 05/24/2014 5:29 PM Latest Code Status on File Code Status Date Activated Date Inactivated Comments Full Code 05/19/2014 3:15 PM 05/22/2014 6:14 PM Full Code 05/19/2014 8:24 AM 05/19/2014 3:07 PM Full Code 09/10/2012 1:53 PM 09/10/2012 5:09 PM Documents on File Type Date Recorded Patient Veterinary Anatomist Expl anation Advance Directives and Livin g Will Advance Directives and Livin g Will 05/24/2014 5:29 PM Power of Bed Teacher Power of Bed Teacher 05/24/2014 5:29 PM Latest Code Status on File Code Status Date Activated Date Inactivated Comments Full Code 05/19/2014 3:15 PM 05/22/2014 6:14 PM Full Code 05/19/2014 8:24 AM 05/19/2014 3:07 PM Full Code 09/10/2012 1:53 PM 09/10/2012 5:09 PM Documents on File Type Date Recorded Patient Veterinary Anatomist Expl anation ACP-Advance Directive ACP-Advance Directive 05/24/2014 5:29 PM ACP-Power of Bed Teacher ACP-Power of Bed Teacher 05/24/2014 5:29 PM Documents on File Type Date Recorded Patient Veterinary Anatomist Expl anation ACP-Advance Directive ACP-Advance Directive 05/24/2014 5:29 PM ACP-Power of Bed Teacher ACP-Power of Bed Teacher 05/24/2014 5:29 PM Advance Directive Response Recorded Date/ Time Advance Directives No February 06, 2 018 6:02pm Documents on File Type Date Recorded Patient Veterinary Anatomist Expl anation ACP-Advance Directive ACP-Power of Bed Teacher ACP-Advance Directive 05/24/2014 5:29 PM ACP-Power of Bed Teacher 05/24/2014 5:29 PM Documents on File Type Date Recorded Patient Veterinary Anatomist Expl anation ACP-Advance Directive ACP-Power of Bed Teacher ACP-Advance Directive 05/24/2014 5:29 PM ACP-Power of Bed Teacher 05/24/2014 5:29 PM Documents on File Type Date Recorded Patient Veterinary Anatomist Expl anation ACP-Advance Directive 05/24/2014 5:29 PM ACP-Power of Bed Teacher 05/24/2014 5:29 PM Documents on File Type Date Recorded Patient Veterinary Anatomist Expl anation Advance Directive(s) 07/27/2015 6:39 AM Documents on File Type Date Recorded Patient Veterinary Anatomist Expl anation ACP-Advance Directive 05/24/2014 5:29 PM ACP-Power of Bed Teacher 05/24/2014 5:29 PM Documents on File Type Date Recorded Patient Veterinary Anatomist Expl anation Advance Directive(s) 06/14/2022 2:09 PM Advance Directive(s) 07/27/2015 6:39 AM Documents on File Type Date Recorded Patient Veterinary Anatomist Expl anation Advance Directive(s) 06/14/2022 2:09 PM Advance Directive(s) 07/27/2015 6:39 AM Latest Code Status on File Code Status Date Activated Date Inactivated Comments Full Code 06/13/2022 5:25 PM Latest Code Status on File Code Status Date Activated Date Inactivated Comments Full Code 06/13/2022 5:25 PM 06/24/2022 4:08 PM Documents on File Type Date Recorded Patient Veterinary Anatomist Expl anation ACP-Do Not Resuscitate 05/14/2022 9:42 AM 05/14/22 DNR Comfort Care ACP-Advance Directive 05/24/2014 5:29 PM ACP-Power of Bed Teacher 05/24/2014 5:29 PM Latest Code Status on File Code Status Date Activated Date Inactivated Comments Full Code 06/13/2022 5:25 PM 06/24/2022 4:08 PM Question Answer Comments Full Code Order Discussed With: Patient Advance Directive Response Recorded Date/ Time Advance Directives No February 06, 2 018 7:02pm Latest Code Status on File Code Status Date Activated Date Inactivated Comments Full Code 06/13/2022 5:25 PM 06/24/2022 4:08 PM Question Answer Comments Full Code Order Discussed With: Patient Date Activated Date Inactivated Comments 06/13/2022 5:25 PM 06/24/2022 4:08 PM Question Answer Comments Full Code Order Discussed With: Patient Date Activated Date Inactivated Comments 06/13/2022 5:25 PM 06/24/2022 4:08 PM Question Answer Comments Full Code Order Discussed With: Patient Date Activated Date Inactivated Comments 05/19/2014 3:15 PM 05/22/2014 6:14 PM Date Activated Date Inactivated Comments 05/19/2014 8:24 AM 05/19/2014 3:07 PM Date Activated Date Inactivated Comments 09/10/2012 1:53 PM 09/10/2012 5:09 PM Documents on File Type Date Recorded Patient Veterinary Anatomist Expl anation ACP-Do Not Resuscitate 05/14/2022 9:42 AM 05/14/22 DNR Comfort Care ACP-Advance Directive 05/24/2014 5:29 PM ACP-Power of Bed Teacher 05/24/2014 5:29 PM Date Activated Date Inactivated Comments 05/19/2014 3:15 PM 05/22/2014 6:14 PM Date Activated Date Inactivated Comments 05/19/2014 8:24 AM 05/19/2014 3:07 PM Date Activated Date Inactivated Comments 09/10/2012 1:53 PM 09/10/2012 5:09 PM Summary Purpose Family History No Family History Records Found Relationship Condition Age at Onset Recorded Date/T cecilio Not Specified History of angioplasty Unknown Presence of cardiac pacemaker Unknown History of endarterectomy Unknown Malignant neoplasm of pancreas Unknown father Cerebrovascular accident (CVA) Unknown History of coronary artery bypass surgery Unknown brother Exposure to Agent Irion Unknown Malignant neoplasm of urinary bladder Unk nown sister Malignant neoplasm of breast Unknown Relationship Condition Age at Onset Recorded Date/T cecilio Not Specified History of angioplasty Unknown Presence of cardiac pacemaker Unknown History of endarterectomy Unknown Malignant neoplasm of pancreas Unknown father Cerebrovascular accident (CVA) Unknown History of coronary artery bypass surgery Unknown brother Exposure to Agent Irion Unknown Malignant neoplasm of urinary bladder Unk nown sister Malignant neoplasm of breast Unknown Diabetes mellitus Unknown father Heart disease Unknown Unknown Not Specified Malignant neoplasm Unknown sister Malignant neoplasm Unknown Relationship Condition Age at Onset Recorded Date/T cecilio mother History of angioplasty Unknown Presence of cardiac pacemaker Unknown History of endarterectomy Unknown Malignant neoplasm of pancreas Unknown father Cerebrovascular accident (CVA) Unknown History of coronary artery bypass surgery Unknown brother Exposure to Agent Irion Unknown Malignant neoplasm of urinary bladder Unk nown sister Malignant neoplasm of breast Unknown Diabetes mellitus Unknown father Heart disease Unknown Unknown mother Malignant neoplasm Unknown sister Malignant neoplasm Unknown Relationship Condition Age at Onset Recorded Date/T cecilio mother History of endarterectomy Unknown History of angioplasty Unknown Malignant neoplasm of pancreas Unknown Presence of cardiac pacemaker Unknown Unknown Diabetes mellitus Unknown father History of endarterectomy Unknown History of coronary artery bypass surgery Unknown Cerebrovascular accident (CVA) Unknown Heart disease Unknown brother Malignant neoplasm of urinary bladder Unk nown sister Malignant neoplasm of breast Unknown brother Diabetes mellitus Unknown Exposure to Agent Irion Unknown Relationship Condition Age at Onset Recorded Date/T cecilio mother History of endarterectomy Unknown History of angioplasty Unknown Malignant neoplasm of pancreas Unknown Diabetes mellitus Unknown Unknown Presence of cardiac pacemaker Unknown father History of endarterectomy Unknown Heart disease Unknown History of coronary artery bypass surgery Unknown Cerebrovascular accident (CVA) Unknown brother Malignant neoplasm of urinary bladder Unk nown sister Malignant neoplasm of breast Unknown brother Diabetes mellitus Unknown Exposure to Agent Irion Unknown Chief Complaint and Reason for Visit Chief Complaint abnormal kaylah Z12.31 abnormal kaylah Abnormal Mammogram M35.3 Right Breast Cancer Right Breast Cancer Chief Complaint M25.862 Dysphagia, Bloating, Vomiting Chief Complaint Dysphagia, Bloating, Vomiting Gaviria's Esophagus Chief Complaint 3 Month Follow Up OP SP INCREASED LT KNEE PAIN 3 month follow up left knee pain Reason for Visit Primary osteoarthrit is of left knee Chronic pain Left knee pain Primary osteoarthritis of left knee Chief Complaint 3 MONTHS M25.551 - Pain in right hip Reason for Visit Chronic pain Left knee pain Primary osteoarthritis of left knee Right hip pain Chief Complaint 3 MONTHS M25.551 - Pain in right hip 3-4 WEEKS M25.562 - Pain in left knee Reason for Visit Chronic pain Left knee pain Primary osteoarthritis of left knee Right hip pain Chronic pain Left knee pain Primary osteoarthritis of left knee Chief Complaint 3-4 WEEKS M25.562 - Pain in left knee RECHECK LEFT KNEE Reason for Visit Chronic pain Left knee pain Primary osteoarthritis of left knee Chronic pain Left knee pain Primary osteoarthritis of left knee Chief Complaint 3-4 WEEKS M25.562 - Pain in left knee RECHECK LEFT KNEE OP SP LT KNEE PAIN PT REQUESTING Reason for Visit Chronic pain Left knee pain Primary osteoarthritis of left knee Chronic pain Left knee pain Primary osteoarthritis of left knee Chief Complaint RECHECK LEFT KNEE OP SP LT KNEE PAIN PT REQUESTING Knee Pain Knee Pain Reason for Visit Chronic pain Left knee pain Primary osteoarthritis of left knee Primary osteoarthritis of left knee Chief Complaint RECHECK LEFT KNEE OP SP LT KNEE PAIN PT REQUESTING Knee Pain Knee Pain F/U AFTER LEFT GENICULAR RFA Reason for Visit Chronic pain Left knee pain Primary osteoarthritis of left knee Primary osteoarthritis of left knee Chronic pain Left knee pain Primary osteoarthritis of left knee Chief Complaint Admit Date Knee Pain April 21, 2024 7 :14am Knee Pain April 21, 2024 8 :12am F/U AFTER LEFT GENICULAR RFA May 9:42am 6 WEEKS AFTER T FELTER PROCEDURE Fredsantosh bach 2023 9:57am [id number] June 10, 2024 12:32pm follow up June 15, 2024 1:44pm D64.9 June 15, 2024 2:42pm Knee Pain July 13, 2024 1 0:56am Reason for Visit Admit Date Chronic pain May 06, 2024 9 :42am Left knee pain May 06, 2024 9 :42am Primary osteoarthritis of left knee 2023 9:42am Primary osteoarthritis of right knee May 9:57am Anemia June 15, 2024 1:44pm GERD (gastroesophageal reflux disease) D ec2023 1:44pm Irritable bowel syndrome with constipati on June 15, 2024 1:44pm Chief Complaint Admit Date Knee Pain April 21, 2024 7 :14am Knee Pain April 21, 2024 8 :12am F/U AFTER LEFT GENICULAR RFA May 9:42am 6 WEEKS AFTER T FELTER PROCEDURE [facility] 2023 9:57am [id number] June 10, 2024 12:32pm follow up June 15, 2024 1:44pm D64.9 June 15, 2024 2:42pm Knee Pain July 13, 2024 1 0:56am M17.12 - Unilateral primary osteoarthrit is, left k July 16, 2024 7:34am H&P LTKA July 16, 2024 9 :37am pre op L TKA July 16, 2024 1 0:43am Reason for Visit Admit Date Chronic pain May 06, 2024 9 :42am Left knee pain May 06, 2024 9 :42am Primary osteoarthritis of left knee 2023 9:42am Primary osteoarthritis of right knee May 9:57am Anemia June 15, 2024 1:44pm GERD (gastroesophageal reflux disease) D ec2023 1:44pm Irritable bowel syndrome with constipati on June 15, 2024 1:44pm Primary osteoarthritis of left knee Raymondamanda wing 2024 9:37am Chief Complaint Admit Date Knee Pain April 21, 2024 7 :14am Knee Pain April 21, 2024 8 :12am F/U AFTER LEFT GENICULAR RFA May 9:42am 6 WEEKS AFTER T FELTER PROCEDURE [facility] 2023 9:57am [id number] June 10, 2024 12:32pm follow up June 15, 2024 1:44pm D64.9 June 15, 2024 2:42pm Knee Pain July 13, 2024 1 0:56am M17.12 - Unilateral primary osteoarthrit is, left k July 16, 2024 7:34am H&P LTKA July 16, 2024 9 :37am pre op L TKA July 16, 2024 1 0:43am Prolonged July 17, 2024 7 :47am Chief Complaint Admit Date F/U AFTER LEFT GENICULAR RFA May 9:42am 6 WEEKS AFTER T FELTER PROCEDURE [facility] 2023 9:57am [id number] June 10, 2024 12:32pm follow up June 15, 2024 1:44pm D64.9 June 15, 2024 2:42pm Knee Pain July 13, 2024 1 0:56am M17.12 - Unilateral primary osteoarthrit is, left k July 16, 2024 7:34am H&P LTKA July 16, 2024 9 :37am pre op L TKA July 16, 2024 1 0:43am Prolonged July 17, 2024 7 :47am Knee Pain July 27, 2024 7 :29am Knee Pain July 27, 2024 9 :48am Knee Pain July 28, 2024 1 :11pm Reason for Visit Admit Date Chronic pain May 06, 2024 9 :42am Left knee pain May 06, 2024 9 :42am Primary osteoarthritis of left knee Nove [id number] 9:42am Primary osteoarthritis of right knee Dec emb2023 9:57am Anemia June 15, 2024 1:44pm GERD (gastroesophageal reflux disease) D ecember 2023 1:44pm Irritable bowel syndrome with constipati on June 15, 2024 1:44pm Primary osteoarthritis of left knee Raymond wing 2024 9:37am Anemia July 27, 2024 9 :48am Impaired mobility and activities of nadiya y living July 27, 2024 9:48am Irritable bowel syndrome with constipati on July 27, 2024 9:48am Left knee pain July 27, 2024 9 :48am Primary osteoarthritis of left knee Raymond maciej 2024 9:48am S/P total knee arthroplasty July 9:48am Chief Complaint Admit Date F/U AFTER LEFT GENICULAR RFA May 9:42am 6 WEEKS AFTER T FELTER PROCEDURE Elly r 2023 9:57am [id number] June 10, 2024 12:32pm follow up June 15, 2024 1:44pm D64.9 June 15, 2024 2:42pm Knee Pain July 13, 2024 1 0:56am M17.12 - Unilateral primary osteoarthrit is, left k July 16, 2024 7:34am H&P LTKA July 16, 2024 9 :37am pre op L TKA July 16, 2024 1 0:43am Prolonged July 17, 2024 7 :47am Knee Pain July 27, 2024 7 :29am Knee Pain July 27, 2024 9 :48am Knee Pain July 28, 2024 1 :11pm Left knee osteoarthritis s/p TKA July 28, 2024 2:50pm Left knee osteoarthritis s/p TKA July 29, 2024 1:11pm Reason for Visit Admit Date Chronic pain May 06, 2024 9 :42am Left knee pain May 06, 2024 9 :42am Primary osteoarthritis of left knee [facility] 9:[facility] Primary osteoarthritis of right knee [facility]20[facility] 9:57am Anemia June 15, 2024 1:44pm GERD (gastroesophageal reflux disease) D ecember 2023 1:44pm Irritable bowel syndrome with constipati on June 15, 2024 1:44pm Primary osteoarthritis of left knee Raymond wing 2024 9:37am Anemia July 27, 2024 9 :48am Impaired mobility and activities of nadiya y living July 27, 2024 9:48am Irritable bowel syndrome with constipati on July 27, 2024 9:48am Left knee pain July 27, 2024 9 :48am Primary osteoarthritis of left knee Raymond wing 2024 9:48am S/P total knee arthroplasty July 9:48am Status post total left knee replacement July 27, 2024 9:48am Anemia July 28, 2024 2 :50pm CHF (congestive heart failure) July 022024 2:50pm Chronic pain July 28, 2024 2 :50pm CKD (chronic kidney disease) July 2:50pm GERD (gastroesophageal reflux disease) J anuary 2024 2:50pm History of revision of total replacement of right knee joint July 28, 2024 2:50pm Hypertension July 28, 2024 2 :50pm Hypothyroidism July 28, 2024 2 :50pm Impaired mobility and activities of nadiya y living July 28, 2024 2:50pm Irritable bowel syndrome with constipati on July 28, 2024 2:50pm Osteoporosis without current pathologica l fracture July 28, 2024 2:50pm Sleep apnea July 28, 2024 2 :50pm Status post total left knee replacement July 28, 2024 2:50pm Chief Complaint Admit Date follow up June 15, 2024 1:44pm D64.9 June 15, 2024 2:42pm Knee Pain July 13, 2024 1 0:56am M17.12 - Unilateral primary osteoarthrit is, left k July 16, 2024 7:34am H&P LTKA July 16, 2024 9 :37am pre op L TKA July 16, 2024 1 0:43am Prolonged July 17, 2024 7 :47am Knee Pain July 27, 2024 7 :29am Knee Pain July 27, 2024 9 :48am Knee Pain July 28, 2024 1 :11pm Left knee osteoarthritis s/p TKA July 28, 2024 2:50pm Left knee osteoarthritis s/p TKA July 29, 2024 1:11pm 2 WK POST OP LTKA August 19, 2024 1:14pm 3 month follow up September 09, 2024 10: 46am Reason for Visit Admit Date Anemia June 15, 2024 1:44pm GERD (gastroesophageal reflux disease) D ecember 2023 1:44pm Irritable bowel syndrome with constipati on June 15, 2024 1:44pm Primary osteoarthritis of left knee Raymond maciej 2024 9:37am Anemia July 27, 2024 9 :48am Impaired mobility and activities of nadiya y living July 27, 2024 9:48am Irritable bowel syndrome with constipati on July 27, 2024 9:48am Left knee pain July 27, 2024 9 :48am Primary osteoarthritis of left knee Raymond wing 2024 9:48am S/P total knee arthroplasty July 9:48am Status post total left knee replacement July 27, 2024 9:48am Anemia July 28, 2024 2 :50pm GERD (gastroesophageal reflux disease) J anuary 2024 2:50pm Impaired mobility and activities of nadiya y living July 28, 2024 2:50pm Irritable bowel syndrome with constipati on July 28, 2024 2:50pm Status post total left knee replacement July 28, 2024 2:50pm CHF (congestive heart failure) July 022024 2:50pm Chronic pain July 28, 2024 2 :50pm CKD (chronic kidney disease) July 2:50pm History of revision of total replacement of right knee joint July 28, 2024 2:50pm Hypertension July 28, 2024 2 :50pm Hypothyroidism July 28, 2024 2 :50pm Osteoporosis without current pathologica l fracture July 28, 2024 2:50pm Sleep apnea July 28, 2024 2 :50pm Aftercare following left knee joint repl acement surgery August 19, 2024 1:14pm Status post total left knee replacement August 19, 2024 1:14pm Aftercare following left knee joint repl acement surgery August 26, 2024 10:36am Status post total left knee replacement August 26, 2024 10:36am Anemia September 09, 2024 10: 46am Gaviria esophagus September 09, 2024 10: 46am GERD (gastroesophageal reflux disease) M [facility] 2024 10:46am Irritable bowel syndrome with constipati on September 09, 2024 10:46am Chief Complaint Admit Date follow up June 15, 2024 1:44pm D64.9 June 15, 2024 2:42pm Knee Pain July 13, 2024 1 0:56am M17.12 - Unilateral primary osteoarthrit is, left k July 16, 2024 7:34am H&P LTKA July 16, 2024 9 :37am pre op L TKA July 16, 2024 1 0:43am Prolonged July 17, 2024 7 :47am Knee Pain July 27, 2024 7 :29am Knee Pain July 27, 2024 9 :48am Knee Pain July 28, 2024 1 :11pm Left knee osteoarthritis s/p TKA July 28, 2024 2:50pm Left knee osteoarthritis s/p TKA July 29, 2024 1:11pm 2 WK POST OP LTKA August 19, 2024 1:14pm 3 month follow up September 09, 2024 10: 46am 2 WEEKS September 09, 2024 11: 55am Z96.652 - Presence of left artificial kn ee joint September 09, 2024 12:05pm Reason for Visit Admit Date Anemia June 15, 2024 1:44pm GERD (gastroesophageal reflux disease) D ecember 2023 1:44pm Irritable bowel syndrome with constipati on June 15, 2024 1:44pm Primary osteoarthritis of left knee Raymond maciej2024 9:37am Anemia July 27, 2024 9 :48am Impaired mobility and activities of nadiya y living July 27, 2024 9:48am Irritable bowel syndrome with constipati on July 27, 2024 9:48am Left knee pain July 27, 2024 9 :48am Primary osteoarthritis of left knee Raymond 2024 9:48am S/P total knee arthroplasty July 9:48am Status post total left knee replacement July 27, 2024 9:48am Anemia July 28, 2024 2 :50pm GERD (gastroesophageal reflux disease) J anuary 2024 2:50pm Impaired mobility and activities of nadiya y living July 28, 2024 2:50pm Irritable bowel syndrome with constipati on July 28, 2024 2:50pm Status post total left knee replacement July 28, 2024 2:50pm CHF (congestive heart failure) July 022024 2:50pm Chronic pain July 28, 2024 2 :50pm CKD (chronic kidney disease) July 2:50pm History of revision of total replacement of right knee joint July 28, 2024 2:50pm Hypertension July 28, 2024 2 :50pm Hypothyroidism July 28, 2024 2 :50pm Osteoporosis without current pathologica l fracture July 28, 2024 2:50pm Sleep apnea July 28, 2024 2 :50pm Aftercare following left knee joint repl acement surgery August 19, 2024 1:14pm Status post total left knee replacement August 19, 2024 1:14pm Aftercare following left knee joint repl acement surgery August 26, 2024 10:36am Status post total left knee replacement August 26, 2024 10:36am Anemia September 09, 2024 10: 46am Gaviria esophagus September 09, 2024 10: 46am GERD (gastroesophageal reflux disease) M 2024 10:46am Irritable bowel syndrome with constipati on September 09, 2024 10:46am Aftercare following left knee joint repl acement surgery September 09, 2024 11:55am Status post total left knee replacement September 09, 2024 11:55am Chief Complaint Admit Date Knee Pain July 13, 2024 1 0:56am M17.12 - Unilateral primary osteoarthrit is, left k July 16, 2024 7:34am H&P LTKA July 16, 2024 9 :37am pre op L TKA July 16, 2024 1 0:43am Prolonged July 17, 2024 7 :47am Knee Pain July 27, 2024 7 :29am Knee Pain July 27, 2024 9 :48am Knee Pain July 28, 2024 1 :11pm Left knee osteoarthritis s/p TKA July 28, 2024 2:50pm Left knee osteoarthritis s/p TKA July 29, 2024 1:11pm 2 WK POST OP LTKA August 19, 2024 1:14pm 3 month follow up September 09, 2024 10: 46am 2 WEEKS September 09, 2024 11: 55am Z96.652 - Presence of left artificial kn ee joint September 09, 2024 12:05pm INCISION CHECK October 01, 2024 9:29 am Reason for Visit Admit Date Primary osteoarthritis of left knee Raymond wing 2024 9:37am Anemia July 27, 2024 9 :48am Impaired mobility and activities of nadiya y living July 27, 2024 9:48am Irritable bowel syndrome with constipati on July 27, 2024 9:48am Left knee pain July 27, 2024 9 :48am Primary osteoarthritis of left knee Raymond wing 2024 9:48am S/P total knee arthroplasty July 9:48am Status post total left knee replacement July 27, 2024 9:48am Anemia July 28, 2024 2 :50pm GERD (gastroesophageal reflux disease) J anuary 2024 2:50pm Impaired mobility and activities of nadiya y living July 28, 2024 2:50pm Irritable bowel syndrome with constipati on July 28, 2024 2:50pm Status post total left knee replacement July 28, 2024 2:50pm CHF (congestive heart failure) July 022024 2:50pm Chronic pain July 28, 2024 2 :50pm CKD (chronic kidney disease) July 2:50pm History of revision of total replacement of right knee joint July 28, 2024 2:50pm Hypertension July 28, 2024 2 :50pm Hypothyroidism July 28, 2024 2 :50pm Osteoporosis without current pathologica l fracture July 28, 2024 2:50pm Sleep apnea July 28, 2024 2 :50pm Aftercare following left knee joint repl acement surgery August 19, 2024 1:14pm Status post total left knee replacement August 19, 2024 1:14pm Aftercare following left knee joint repl acement surgery August 26, 2024 10:36am Status post total left knee replacement August 26, 2024 10:36am Anemia September 09, 2024 10: 46am Gaviria esophagus September 09, 2024 10: 46am GERD (gastroesophageal reflux disease) M arch 2024 10:46am Irritable bowel syndrome with constipati on September 09, 2024 10:46am Aftercare following left knee joint repl acement surgery September 09, 2024 11:55am Status post total left knee replacement September 09, 2024 11:55am Chief Complaint Admit Date Knee Pain July 27, 2024 7 :29am Knee Pain July 27, 2024 9 :48am Knee Pain July 28, 2024 1 :11pm Left knee osteoarthritis s/p TKA July 28, 2024 2:50pm Left knee osteoarthritis s/p TKA July 29, 2024 1:11pm 2 WK POST OP LTKA August 19, 2024 1:14pm 3 month follow up September 09, 2024 10: 46am 2 WEEKS September 09, 2024 11: 55am Z96.652 - Presence of left artificial kn ee joint September 09, 2024 12:05pm INCISION CHECK October 01, 2024 9:29 am Z47.1 - Aftercare following joint replac ement surg October 21, 2024 6:18am 6 WEEKS October 21, 2024 11: 15am Reason for Visit Admit Date Anemia July 27, 2024 9 :48am Impaired mobility and activities of nadiya y living July 27, 2024 9:48am Irritable bowel syndrome with constipati on July 27, 2024 9:48am Left knee pain July 27, 2024 9 :48am Primary osteoarthritis of left knee Raymond maciej 2024 9:48am S/P total knee arthroplasty July 9:48am Status post total left knee replacement July 27, 2024 9:48am Anemia July 28, 2024 2 :50pm GERD (gastroesophageal reflux disease) J anuary 2024 2:50pm Impaired mobility and activities of nadiya y living July 28, 2024 2:50pm Irritable bowel syndrome with constipati on July 28, 2024 2:50pm Status post total left knee replacement July 28, 2024 2:50pm CHF (congestive heart failure) July 022024 2:50pm Chronic pain July 28, 2024 2 :50pm CKD (chronic kidney disease) July 2:50pm History of revision of total replacement of right knee joint July 28, 2024 2:50pm Hypertension July 28, 2024 2 :50pm Hypothyroidism July 28, 2024 2 :50pm Osteoporosis without current pathologica l fracture July 28, 2024 2:50pm Sleep apnea July 28, 2024 2 :50pm Aftercare following left knee joint repl acement surgery August 19, 2024 1:14pm Status post total left knee replacement August 19, 2024 1:14pm Aftercare following left knee joint repl acement surgery August 26, 2024 10:36am Status post total left knee replacement August 26, 2024 10:36am Anemia September 09, 2024 10: 46am Gaviria esophagus September 09, 2024 10: 46am GERD (gastroesophageal reflux disease) M arch 2024 10:46am Irritable bowel syndrome with constipati on September 09, 2024 10:46am Aftercare following left knee joint repl acement surgery September 09, 2024 11:55am Status post total left knee replacement September 09, 2024 11:55am Aftercare following left knee joint repl acement surgery October 01, 2024 9:29am Status post total left knee replacement October 01, 2024 9:29am Aftercare following left knee joint repl acement surgery October 21, 2024 11:15am Status post total left knee replacement October 21, 2024 11:15am Chief Complaint Admit Date Knee Pain July 28, 2024 1 :11pm Left knee osteoarthritis s/p TKA July 28, 2024 2:50pm Left knee osteoarthritis s/p TKA July 29, 2024 1:11pm 2 WK POST OP LTKA August 19, 2024 1:14pm 3 month follow up September 09, 2024 10: 46am 2 WEEKS September 09, 2024 11: 55am Z96.652 - Presence of left artificial kn ee joint September 09, 2024 12:05pm INCISION CHECK October 01, 2024 9:29 am Z47.1 - Aftercare following joint replac ement surg October 21, 2024 6:18am 6 WEEKS October 21, 2024 11: 15am gaviria's/Dysphagia/DUONG October 26, 2024 9:29am gaviria's/Dysphagia/DUONG October 26, 2024 9:41am Reason for Visit Admit Date Anemia July 28, 2024 2 :50pm GERD (gastroesophageal reflux disease) J anuary 2024 2:50pm Impaired mobility and activities of nadiya y living July 28, 2024 2:50pm Irritable bowel syndrome with constipati on July 28, 2024 2:50pm Status post total left knee replacement July 28, 2024 2:50pm CHF (congestive heart failure) July 022024 2:50pm Chronic pain July 28, 2024 2 :50pm CKD (chronic kidney disease) July 2:50pm History of revision of total replacement of right knee joint July 28, 2024 2:50pm Hypertension July 28, 2024 2 :50pm Hypothyroidism July 28, 2024 2 :50pm Osteoporosis without current pathologica l fracture July 28, 2024 2:50pm Sleep apnea July 28, 2024 2 :50pm Aftercare following left knee joint repl acement surgery August 19, 2024 1:14pm Status post total left knee replacement August 19, 2024 1:14pm Aftercare following left knee joint repl acement surgery August 26, 2024 10:36am Status post total left knee replacement August 26, 2024 10:36am Anemia September 09, 2024 10: 46am Gaviria esophagus September 09, 2024 10: 46am GERD (gastroesophageal reflux disease) M 2024 10:46am Irritable bowel syndrome with constipati on September 09, 2024 10:46am Aftercare following left knee joint repl acement surgery September 09, 2024 11:55am Status post total left knee replacement September 09, 2024 11:55am Aftercare following left knee joint repl acement surgery October 01, 2024 9:29am Status post total left knee replacement October 01, 2024 9:29am Aftercare following left knee joint repl acement surgery October 21, 2024 11:15am Status post total left knee replacement October 21, 2024 11:15am Chief Complaint Admit Date [id number] February 24, 2025 7: 34am Additional Source Comments Reason for Visit (unrecogniz ed section and content) Reason Comments Radiology CT Specialty Diagnoses / Procedures Referred By Frances hayes Referred To Contact CT IMAGING Diagnoses Malignant neoplasm of unspecified part of unspecified bronchus or lung (HCC) Procedures CT CHEST WO IVCON DIAGNOSTIC COMPUTED TOMOGRAPHY THORAX W/O CNTRST Bryanna Adan MD [address] [place] [address] [place] [address] Phone: tel: fax: [place] [address] Referral ID Status Reason Start Date Expiration Date V isits Requested Visits Authorized [id number] Closed Auto-Generate d Referral 05/25/2024 06/24/2025 1 1 Reason Comments Radiology NM Specialty Diagnoses / Procedures Referred By Contac t Referred To Contact CT IMAGING Diagnoses Malignant neoplasm of unspecified part of unspecified bronchus or lung (HCC) Procedures CT CHEST WO IVCON DIAGNOSTIC COMPUTED TOMOGRAPHY THORAX W/O CNTRST Bryanna Adan MD [address] [place] [address] [place] [address] [facility] [place] [address] Referral ID Status Reason Start Date Expiration Date V isits Requested Visits Authorized [id number] Closed Auto-Generate d Referral 11/26/2023 12/25/2024 1 1 Status Reason Specialty Diagnoses / Procedures Re ferred By Contact Referred To Contact Pending Review Radiology Diagnoses Encounter for imaging to assess osteoporosis Asymptomatic age-related postmenopausal state Procedures DEXA BONE DENSITY 2 SITES Jovan Miller MD [address] [place] [address] Status Reason Specialty Diagnoses / Procedures Referred By Contact Referred To Contact Not Required - Recondo Radiology Diagnoses Breast pain, right Procedures HC MAMMO DGX UNILATERAL INCL CAD IF PERF Jovan Miller MD [address] [place] [address] [facility] [address] [place] [address] Status Reason Specialty Diagnoses / Procedures Referred By Contact Referred To Contact Not Required - Recondo Radiology Diagnoses Breast pain, right Procedures HC US BREAST COMP Jovan Miller MD [address] [place] [id number] [facility] [address] [place] [address] Status Reason Specialty Diagnoses / Procedures Re ferred By Contact Referred To Contact Closed Radiology Diagnoses Encounter for screening mammogram for malignant neoplasm of breast Procedures HC US RETROPERITONEAL LIMITED Vahe Llanos MD [address] [place] [address] [facility] [address] [place] [address] Status Reason Specialty Diagnoses / Procedures Referre d By Contact Referred To Contact Closed Radiology Diagnoses Mastodynia Procedures HC US BREAST COMP [facility] [address] [place] [address] [facility] [address] [place] [address] Status Reason Specialty Diagnoses / Procedures Referre d By Contact Referred To Contact Closed Radiology Diagnoses Mastodynia Procedures HC MAMMO DGX UNILATERAL INCL CAD IF PERF [facility] [address] [place] [address] [facility] [address] [place] [address] Status Reason Specialty Diagnoses / Procedures Re ferred By Contact Referred To Contact Closed Radiology Diagnoses HX: breast cancer Pelvic lymphadenopathy Procedures US PELVIS COMPLETE Jasmyne Casillas, SWING FRAME GRINDER OPERATOR - LAMBSKIN TRIMMER [address] [place] [address] [facility] [address] [place] [address] Status Reason Specialty Diagnoses / Procedures Referred By Contact Referred To Contact Pending Review Radiology Diagnoses Breast cancer screening by mammogram Procedures KAYLAH DIGITAL SCREEN W CAD BILATERAL KAYLAH DIGITAL SCREEN W OR WO CAD BILATERAL Jovan Miller MD [address] [place] [address] Status Reason Specialty Diagnoses / Procedures Referre d By Contact Referred To Contact Closed Radiology Diagnoses Ductal carcinoma in situ of right breast Procedures KAYLAH CHRISSY DIGITAL DIAGNOSTIC BILATERAL KAYLAH DIGITAL DIAGNOSTIC W OR WO CAD BILATERAL Babatunde Pizarro MD [address] [place] [address] Specialty Diagnoses / Procedures Referred By Contac t Referred To Contact Cardiology Diagnoses Other form of dyspnea R06.09 (ICD-10-CM) - Other form of dyspnea Procedures ECHO Complete 2D W Doppler W Color HI ECHO HEART XTHORACIC,COMPLETE W DOPPLER [id number] - HI ECHO HEART XTHORACIC,COMPLETE W DOPPLER Lauren Peña, SWING FRAME GRINDER OPERATOR - LAMBSKIN TRIMMER [address] [place] [address] Referral ID Status Reason Start Date Expiration Date Visits Re quested Visits Authorized [id number] Closed 09/27/2021 09/27/2022 1 1 Specialty Diagnoses / Procedures Referred By Contac t Referred To Contact Radiology Diagnoses Kidney stones N20.0 (ICD-10-CM) - Kidney stones Procedures US RENAL COMPLETE HI US,RETROPERIT,REAL TIME,COMPLETE 66038 - HI US,RETROPERIT,REAL TIME,COMPLETE Vahe Llanos MD [address] [place] [address] Referral ID Status Reason Start Date Expiration Date Visits Re quested Visits Authorized [id number] Closed 09/13/2021 09/13/2022 1 1 Reason Comments Patient Update Reason Comments Breast Cancer 1 year follow up Reason Comments Future Appointment Orders Specialty Diagnoses / Procedures Referred By Contac t Referred To Contact Radiology Diagnoses Decreased diffusion capacity Procedures CT CHEST HIGH RESOLUTION Shaniqua Ellsworth MD [address] [place] [phone] Referral ID Status Reason Start Date Expiration Date Visits Re quested Visits Authorized [id number] Closed 03/24/2022 03/24/2023 1 1 Specialty Diagnoses / Procedures Referred By Contac t Referred To Contact Radiology Diagnoses Lung nodule seen on imaging study Procedures CT CHEST LOW DOSE ([place]) [place] [address] [place] [id number] Referral ID Status Reason Start Date Expiration Date Visits Re quested Visits Authorized [id number] Closed 03/19/2022 03/19/2023 1 1 Specialty Diagnoses / Procedures Referred By Contac t Referred To Contact Radiology Diagnoses Decreased diffusion capacity Procedures NM LUNG VENT/PERFUSION ([place]Q) [place] [address] [place] [id number] Referral ID Status Reason Start Date Expiration Date Visits Re quested Visits Authorized [id number] Closed 03/19/2022 03/19/2023 1 1 Specialty Diagnoses / Procedures Referred By Contac t Referred To Contact Radiology Diagnoses Intraductal carcinoma in situ of right breast Procedures KAYLAH CHRISSY DIGITAL DIAGNOSTIC BILATERAL Babatunde Pizarro MD [address] [place] [address] Referral ID Status Reason Start Date Expiration Date Visits Re quested Visits Authorized [id number] Closed 02/20/2022 02/20/2023 1 1 Reason Onset Date Comments Appointment 04/10/2022 Reason Comments Lung Cancer Established patient new problem Breast Cancer Specialty Diagnoses / Procedures Referred By Contac t Referred To Contact Radiology Diagnoses Lung nodule seen on imaging study Procedures PET CT SKULL BASE TO MID THIGH Shaniqua Ellsworth MD [address] [facility] [address] [place] [address] Referral ID Status Reason Start Date Expiration Date Visits Re quested Visits Authorized [id number] Closed 04/04/2022 04/04/2023 1 1 Reason Comments Care Coordination Pulmonolgy Follow Up Reason Comments Patient Update Biopsy results Results Reason Comments Orders Reason Comments Appointment Reason Comments Breast Cancer Follow up Reason Comments New Patient Reason Comments Care Coordination Vaccine Question Reason Comments Spirometry Specialty Diagnoses / Procedures Referred By Contac t Referred To Contact [facility] Diagnoses Preoperative testing Procedures SIX MINUTE WALK CARDIOPULMONARY [place] [address] [place] [phone] Respiratory [place] [phone] Referral ID Status Reason Start Date Expiration Date V isits Requested Visits Authorized [id number] Closed Auto-Generate d Referral 05/16/2022 06/15/2023 1 1 Specialty Diagnoses / Procedures Referred By Contac t Referred To Contact [facility] Diagnoses Preoperative testing Procedures SPIROMETRY BASELINE ONLY SPMTRY W/VC EXPIRATORY RANJEET W/[place] [address] [place] [address] [address] Referral ID Status Reason Start Date Expiration Date V isits Requested Visits Authorized [id number] Closed Auto-Generate d Referral 05/16/2022 06/15/2023 1 1 Reason Comments Anesthesia Consult lung CA Reason Comments Appointment Confirmed appt with patient Reason Comments Follow Up Reason Comments Established Patient Per Dr. Amaral Follow up appointment discuss results sign consents Reason Onset Date Comments Research Outreach 06/11/2022 Reason Comments Lung Cancer Reason Comments Post Op 4 weeks CXR Prior / Surgery with Dr. Amaral 06/13/22S/p LEFT upper lobe trisegmentectomy Specialty Diagnoses / Procedures Referred By Contac t Referred To Contact Diagnoses Exertional dyspnea Procedures 6 Minute Walk Test Gibson Singh, SWING FRAME GRINDER OPERATOR - LAMBSKIN TRIMMER [address] [address] Referral ID Status Reason Start Date Expiration Date Visits Re quested Visits Authorized [id number] Closed 07/23/2022 07/23/2023 1 1 Reason Comments Lung Cancer Followup Reason Comments Orders Reason Comments 3rd poy Rt. lumpectomy Mamm was done in March Reason Comments Opened In Error Opened in error Reason Onset Date Comments Refill Request 10/04/2023 Reason Comments Lung Cancer Referral ID Status Reason Start Date Expiration Date V isits Requested Visits Authorized [id number] Closed Auto-Generate d Referral 05/28/2023 06/26/2024 1 1 Referral ID Status Reason Start Date Expiration Date V isits Requested Visits Authorized [id number] Closed Auto-Generate d Referral 01/15/2023 02/14/2024 1 1 Referral ID Status Reason Start Date Expiration Date V isits Requested Visits Authorized [id number] Closed Auto-Generate d Referral 11/13/2022 12/13/2023 1 1 Specialty Diagnoses / Procedures Referred By Contac t Referred To Contact CT IMAGING Diagnoses Post-operative state Procedures CT CHEST WO IVCON DIAGNOSTIC COMPUTED TOMOGRAPHY THORAX [place] [id number] [place] [address] [address] [place] [address] Referral ID Status Reason Start Date Expiration Date V isits Requested Visits Authorized [id number] Closed Auto-Generate d Referral 06/22/2022 07/22/2023 1 1 Specialty Diagnoses / Procedures Referred By Contac t Referred To Contact Radiology Diagnoses Ductal carcinoma in situ of right breast Procedures KAYLAH CHRISSY DIGITAL DIAGNOSTIC BILATERAL KAYLAH DIGITAL DIAGNOSTIC W OR WO CAD BILATERAL Bryanna Adan MD [address] [place] [address] [place] [address] Referral ID Status Reason Start Date Expiration Date Visits Re quested Visits Authorized [id number] Closed 11/27/2023 11/26/2024 1 1 Reason Comments Lung Cancer Reason Comments Medical clearance for L total knee repla cement Specialty Diagnoses / Procedures Referred By Contac t Referred To Contact Sleep Center Diagnoses Obstructive sleep apnea syndrome Procedures Baseline Diagnostic Sleep Study Shaniqua Ellsworth MD [address] [place] [address] [facility] [address] [place] [address] Referral ID Status Reason Start Date Expiration Date V isits Requested Visits Authorized [id number] Pending Review 02/27/2024 02/26/2025 1 1 Reason Onset Date Comments Results - Ct 08/13/2024 Reason Comments Lung Cancer Reason Onset Date Comments Refill Request 08/18/2024 Reason Comments 4yr. 2mos. Rt. lumpectomy Reason Comments Skin Check Reason Comments Hgb low Reason Comments Anemia Lung Cancer 6 week follow up Reason Comments Urgent visit Reason Onset Date Comments Results 01/27/2025 Reason Comments Orders Reason Comments Radiology CT Specialty Diagnoses / Procedures Referred By Contac t Referred To Contact [facility] Diagnoses Malignant neoplasm of unspecified part of unspecified bronchus or lung (HCC) Procedures NM PET/CT SKULL-THIGH SUBSEQUENT PET IMAGING CT ATTENUATION SKULL BASE MID-THIGH Kelsey Stuart, ALYSSA.LAMBSKIN TRIMMER [address] [place] [address] Phone: tel: fax: Molecular Imaging [address] [place] [address] Phone: tel: Referral ID Status Reason Start Date Expiration Date V isits Requested Visits Authorized [id number] Closed Auto-Generate d Referral 02/12/2025 03/14/2026 1 1 Reason Comments 4yr. 8mos. Rt. lumpectomy Reason Comments Anemia Chronic Kidney Disease MAGGIE Reason Comments New Patient Specialty Diagnoses / Procedures Referred By Contac t Referred To Contact Vascular Surgery Diagnoses Infrarenal abdominal aortic aneurysm (AAA) without rupture Procedures OFFICE/OUTPATIENT NEW HIGH MDM 60 MINUTES Katie Cook, HALI [address] [place] [address] Phone: tel: fax: Referral ID Status Reason Start Date Expiration Date V isits Requested Visits Authorized [id number] Closed PCP Requested Referral 02/16/2025 02/16/2026 1 1 Reason Comments Results Reason Comments Eye Exam Reason Comments Procedure INFORMATION SOURCE (unrecogn ized section and content) DATE CREATED AUTHOR 01/16/2020 [facility] DATE CREATED AUTHOR AUTHOR'S ORGANIZ ATION 04/19/2021 [facility] DATE CREATED AUTHOR AUTHOR'S ORGANIZ ATION 04/11/2022 [facility] DATE CREATED AUTHOR AUTHOR'S ORGANIZ ATION 06/03/2022 [facility] DATE CREATED AUTHOR AUTHOR'S ORGANIZ ATION 06/29/2022 [facility] DATE CREATED AUTHOR AUTHOR'S ORGANIZ ATION 10/23/2022 [facility] DATE CREATED AUTHOR AUTHOR'S ORGANIZ ATION 01/16/2023 [facility] DATE CREATED AUTHOR AUTHOR'S ORGANIZ ATION 01/17/2023 [facility] DATE CREATED AUTHOR AUTHOR'S ORGANIZ ATION 12/01/2024 [facility] DATE CREATED AUTHOR AUTHOR'S ORGANIZ ATION 12/24/2024 [facility] DATE CREATED AUTHOR AUTHOR'S ORGANIZ ATION 02/11/2025 [facility] DATE CREATED AUTHOR AUTHOR'S ORGANIZ ATION 02/25/2025 [facility] DATE CREATED AUTHOR AUTHOR'S ORGANIZ ATION 03/07/2025 [facility] DATE CREATED AUTHOR AUTHOR'S ORGANIZ ATION 04/02/2025 [facility] EP[facility] DATE CREATED AUTHOR AUTHOR'S ORGANIZ ATION 04/03/2025 [facility] DATE CREATED AUTHOR AUTHOR'S ORGANIZ ATION 04/05/2025 [facility] Care Teams (unrecognized sec tion and content) Team Status: Active Member Role Status Dates Jasmyne Casillas APRN DRESSING ROOM ATTENDANT-Carissa Primary Care Provider Active Team Status: Inactive Member Role Status Dates Jasmyne Casillas APRN DRESSING ROOM ATTENDANT-C Primary Care Provider Active Start: February 24, 2025 End: February 24, 2025 Katie Cook PA-C Attending Provider Active Start: February 24, 2025 End: February 24, 2025 Team Status: Active Member Role Status Dates Jasmyne Caslilas APRN DRESSING ROOM ATTENDANT-C Primary Care Provider Active Start: July 27, 2024 Sridevi Tovar II, MD Attending Pilar snow, Other Provider Active Start: July 27, 2024 Angelita Duncan , REBECCA Other Provider Active Star t: July 27, 2024 Carrie Rand , REBECCA Other Provider Active Start : July 27, 2024 Malissa Garcia , REBECCA Other Provider Active Star t: July 27, 2024 Asya Cui , REBECCA Other Provider Active Start: J anuary 2024 Ada Hsu RN Other Provider Active Start: Rommel valenzuelaary 2024 Manny Dupree MD Other Provider Active Start: July 27, 2024 Jean Paul Chong DO Other Provider Active Start : July 27, 2024 Samson Galdamez MD Other Provider Active Start : July 27, 2024 Zeus Gates DO Other Provider Active Start: July 27, 2024 Jason Villanueva MD Other Provider Active Start: July 27, 2024 Lilliam Stern MD Other Provider Active Start : July 27, 2024 Roland Matute DO Other Provider Active St art: July 27, 2024 Dominic Rainey MD Other Provider Active Start: J anuary 2024 Emily Lawrence APRN Other Provider Active Start: July 27, 2024 Agusto Avery MD Other Provider Active Start: July 27, 2024 Nick Hernández MD Other Provider Active Start: J anuary 2024 Jv Rankin MD Other Provider Active Start: July 27, 2024 Alma Delia Hazel MD Other Provider Active Start: July 27, 2024 Roland Berry DO Other Provider Active Start: July 27, 2024 Mercedes Palumbo MD Other Provider Active Start: Rommel nuary 2024 Fermin Paredes MD Other Provider Active Start: Adrian jose eduardo 2024 Manisha Lewis NP-C Other Provider Active St art: July 27, 2024 Ahmet Castillo APRN Other Provider Active Star t: July 27, 2024 Jose Thacker MD Other Provider Active Start: July 27, 2024 Beau Valentine MD Other Provider Active Start: Rommel albert 2024 Darnell Schofield MD Other Provider Active Start: Adrian whitt 2024 Mesha Asencio MD Other Provider Active Star t: July 27, 2024 Otoniel Benavides MD Other Provider Active Start: J anuary 2024 Marine Augilar DO Other Provider Active Start: Rommel albert 2024 Vasyl Lynn , Other Provider Active Start : July 27, 2024 Jacquie Aggarwal APRN Other Provider Active Start: July 27, 2024 Bib Lynne DO Other Provider Active Start: July 27, 2024 Emelia Deras MD Other Provider Active Sta rt: July 27, 2024 Chyna Gannon APRN Other Provider Active Start : July 27, 2024 Melisa Melissa APRN Other Provider Active St art: July 27, 2024 Brian Monge MD Other Provider Active Start: J anuary 2024 Jefry Oquendo MD Other Provider Active S tart: July 27, 2024 Louis Chapman , Other Provider Active Star t: July 27, 2024 Andreina Pineda DO Other Provider Active Start: July 27, 2024 Mitchell Schofield MD Other Provider Active Start: July 27, 2024 Dino Salamanca MD Other Provider Active Start: July 27, 2024 Emy Martin APRN Other Provider Active Star t: July 27, 2024 Bernadette Hernandez MD Other Provider Active Start: J anuary 2024 Dieter Fernandez MD Other Provider Active Start: Rommel albert 2024 Tuan Paulson MD Other Provider Active Start: July 27, 2024 Dominic Lipscomb MD Other Provider Active Start : July 27, 2024 Froylan Argueta MD Other Provider Active Start: J anuary 2024 Apple Benitez APRN Other Provider Active Sta rt: July 27, 2024 Mellissa Lewis APRN Other Provider Active Start: July 27, 2024 Chhaya Torres RN Other Provider Active Start: J anuary 2024 Tuan Farrell MD Other Provider Active Start: J anuary 2024 Team Status: Inactive Member Role Status Dates Jasmyne Casillas APRN DRESSING ROOM ATTENDANT-C Primary Care Provider Active Start: July 27, 2024 End: July 28, 2024 Sridevi Tovar II, MD Attending Provider Active Start: July 27, 2024 End: July 28, 2024 Angelita Duncan , REBECCA Other Provider Active Star t: July 27, 2024 End: July 28, 2024 Carrie Rand , REBECCA Other Provider Active Start : July 27, 2024 End: July 28, 2024 Malissa Garcia , REBECCA Other Provider Active Star t: July 27, 2024 End: July 28, 2024 Asya Cui RN Other Provider Active Start: J anuary 2024 End: July 28, 2024 Ada Hsu RN Other Provider Active Start: Rommel albert 2024 End: July 28, 2024 Jean Paul Chong DO Other Provider Active Start : July 27, 2024 End: July 28, 2024 Samson Galdamez MD Other Provider Active Start : July 27, 2024 End: July 28, 2024 Zeus Gates DO Other Provider Active Start: July 27, 2024 End: July 28, 2024 Jason Villanueva MD Other Provider Active Start: July 27, 2024 End: July 28, 2024 Lilliam Stern MD Other Provider Active Start : July 27, 2024 End: July 28, 2024 Roland Matute DO Other Provider Active St art: July 27, 2024 End: July 28, 2024 Dominic Rainey MD Other Provider Active Start: J anuary 2024 End: July 28, 2024 Emily Lawrence APRN Other Provider Active Start: July 27, 2024 End: July 28, 2024 Agusto Avery MD Other Provider Active Start: July 27, 2024 End: July 28, 2024 Nick Hernández MD Other Provider Active Start: J anuary 2024 End: July 28, 2024 Jv Rankin MD Other Provider Active Start: July 27, 2024 End: July 28, 2024 Alma Delia Hazel MD Other Provider Active Start: July 27, 2024 End: July 28, 2024 Roland Berry DO Other Provider Active Start: July 27, 2024 End: July 28, 2024 Mercedes Palumbo MD Other Provider Active Start: bety 2024 End: July 28, 2024 Fermin Paredes MD Other Provider Active Start: Jul End: July 28, 2024 Manisha Lewis NP-C Other Provider Active St art: July 27, 2024 End: July 28, 2024 Ahmet Castillo APRN Other Provider Active Star t: July 27, 2024 End: July 28, 2024 Jose Thacker MD Other Provider Active Start: July 27, 2024 End: July 28, 2024 Beau Valentine MD Other Provider Active Start: Rommel albert 2024 End: July 28, 2024 Darnell Schofield MD Other Provider Active Start: Jul End: July 28, 2024 Mesha Asencio MD Other Provider Active Star t: July 27, 2024 End: July 28, 2024 Otoniel Benavides MD Other Provider Active Start: Blanca josé 2024 End: July 28, 2024 Marnie Aguilar DO Other Provider Active Start: Rommel maciej 2024 End: July 28, 2024 Vasyl Lynn DO Other Provider Active Start : July 27, 2024 End: July 28, 2024 Jacquie Aggarwal APRN Other Provider Active Start: July 27, 2024 End: July 28, 2024 Bib Lynne DO Other Provider Active Start: July 27, 2024 End: July 28, 2024 Emleia Deras MD Other Provider Active Sta rt: July 27, 2024 End: July 28, 2024 Chyna Gannon APRN Other Provider Active Start : July 27, 2024 End: July 28, 2024 Melisa Melissa APRN Other Provider Active St art: July 27, 2024 End: July 28, 2024 Brian Monge MD Other Provider Active Start: J anuary 2024 End: July 28, 2024 Jefry Oquendo MD Other Provider Active S tart: July 27, 2024 End: July 28, 2024 Louis Chapman DO Other Provider Active Star t: July 27, 2024 End: July 28, 2024 Andreina Pineda DO Other Provider Active Start: July 27, 2024 End: July 28, 2024 Mitchell Schofield MD Other Provider Active Start: July 27, 2024 End: July 28, 2024 Dino Salamanca MD Other Provider Active Start: July 27, 2024 End: July 28, 2024 Emy Martin APRN Other Provider Active Star t: July 27, 2024 End: July 28, 2024 Bernadette Hernandez MD Other Provider Active Start: J anuary 2024 End: July 28, 2024 Dieter Fernandez MD Other Provider Active Start: Rommel albert 2024 End: July 28, 2024 Tuan Paulson MD Other Provider Active Start: July 27, 2024 End: July 28, 2024 Dominic Lipscomb MD Other Provider Active Start : July 27, 2024 End: July 28, 2024 Froylan Argueta MD Other Provider Active Start: Blanca anuary 2024 End: July 28, 2024 Apple Benitez APRN Other Provider Active Sta rt: July 27, 2024 End: July 28, 2024 Mellissa Lewis APRN Other Provider Active Start: July 27, 2024 End: July 28, 2024 Chhaya Torres RN Other Provider Active Start: Blanca anuary 2024 End: July 28, 2024 Tuan Farrell MD Other Provider Active Start: Blanca anuary 2024 End: July 28, 2024 Martha Haas MD Other Provider Active Start: Rommel albert 2024 End: July 28, 2024 Alysia Patrick APRN Other Provider Active St art: July 27, 2024 End: July 28, 2024 Zack Belcher Jr, DO Other Provider Active S tart: July 27, 2024 End: July 28, 2024 Herb Lara MD Other Provider Active Start: July 27, 2024 End: July 28, 2024 Team Status: Active Member Role Status Dates Jasmyne Casillas APRN DRESSING ROOM ATTENDANT-C Primary Care Provider Active Start: July 28, 2024 Sridevi Tovar II, MD Other Provider Active S tart: July 28, 2024 Angelita Duncan , REBECCA Other Provider Active Star t: July 28, 2024 Carrie Rand , REBECCA Other Provider Active Start : July 28, 2024 Malissa Garcia , REBECCA Other Provider Active Star t: July 28, 2024 Asya Cui RN Other Provider Active Start: J anuary 2024 Ada Hsu , REBECCA Other Provider Active Start: Rommel valenzuelaary 2024 Jean Paul Chong DO Other Provider Active Start : July 28, 2024 Samson Galdamez MD Other Provider Active Start : July 28, 2024 Zeus Gates DO Other Provider Active Start: July 28, 2024 Jason Villanueva MD Other Provider Active Start: July 28, 2024 Lilliam Stern MD Other Provider Active Start : July 28, 2024 Roland Matute DO Other Provider Active St art: July 28, 2024 Dominic Rainey MD Other Provider Active Start: J anuary 2024 Emily Lawrence APRN Other Provider Active Start: July 28, 2024 Agusto Avery MD Other Provider Active Start: July 28, 2024 Nick Hernández MD Other Provider Active Start: J anuary 2024 Jv Rankin MD Other Provider Active Start: July 28, 2024 Alma Delia Hazel MD Other Provider Active Start: July 28, 2024 Roland Berry DO Other Provider Active Start: July 28, 2024 Mercedes Palumbo MD Other Provider Active Start: Rommel nuary 2024 Fermin Paredes MD Other Provider Active Start: Adrian whitt 2024 Manisha Lewis NP-C Other Provider Active St art: July 28, 2024 Ahmet Castillo , ALYSSA Other Provider Active Star t: July 28, 2024 Jose Thacker MD Other Provider Active Start: July 28, 2024 Beau Valentine MD Other Provider Active Start: [place] 2024 Darnell Schofield MD Other Provider Active Start: Adrian allandarien 2024 Mesha Asencio MD Other Provider Active Star t: July 28, 2024 Otoniel Benavides MD Other Provider Active Start: J anuary 2024 Marnie Aguilar DO Other Provider Active Start: [place] 2024 Vasyl Lynn DO Other Provider Active Start : July 28, 2024 Jacquie Aggarwal APRN Other Provider Active Start: July 28, 2024 Bib Lynne DO Other Provider Active Start: July 28, 2024 Emelia Deras MD Other Provider Active Sta rt: July 28, 2024 Chyna Gannon APRN Other Provider Active Start : July 28, 2024 Melisa Melissa APRN Other Provider Active St art: July 28, 2024 Brian Monge MD Other Provider Active Start: J anuary 2024 Jefry Oquendo MD Other Provider Active S tart: July 28, 2024 Louis Chapman DO Other Provider Active Star t: July 28, 2024 Andreina Pineda DO Other Provider Active Start: July 28, 2024 Mitchell Schofield MD Other Provider Active Start: July 28, 2024 Dino Salamanca MD Other Provider Active Start: July 28, 2024 Emy Martin APRN Other Provider Active Star t: July 28, 2024 Bernadette Hernandez MD Other Provider Active Start: J anuary 2024 Dieter Fernandez MD Other Provider Active Start: biancaary 2024 Tuan Paulson MD Other Provider Active Start: July 28, 2024 Dominic Lipscomb MD Other Provider Active Start : July 28, 2024 Froylan Argueta MD Other Provider Active Start: J anuary 2024 Apple Benitez APRN Other Provider Active Sta rt: July 28, 2024 Mellissa Lewis APRN Other Provider Active Start: July 28, 2024 Chhaya Torres RN Other Provider Active Start: Blanca anuary 2024 Tuan Farrell MD Other Provider Active Start: Blanca anuary 2024 Martha Haas MD Other Provider Active Start: Rommel albert 2024 Alysia Patrick APRN Other Provider Active St art: July 28, 2024 Zack Belcher Jr, DO Other Provider Active S tart: July 28, 2024 Herb Lara MD Attending Pr bernie, Other Provider Active Start: July 28, 2024 Team Status: Inactive Member Role Status Dates Jasmyne Casillas APRN DRESSING ROOM ATTENDANT-C Primary Care Provider Active Start: July 28, 2024 End: August 02, 2024 Tuan Farrell MD Admit Provider, Atte nding Provider Active Start: July 28, 2024 End: August 02, 2024 Angelita Duncan RN Other Provider Active Star t: July 28, 2024 End: August 02, 2024 Carrie Rand , REBECCA Other Provider Active Start : July 28, 2024 End: August 02, 2024 Malissa Garcia RN Other Provider Active Star t: July 28, 2024 End: August 02, 2024 Asya Cui , REBECCA Other Provider Active Start: anuary 2024 End: August 02, 2024 Ada Hsu , REBECCA Other Provider Active Start: Rommel albert 2024 End: August 02, 2024 Manny Dupree MD Other Provider Active Start: July 28, 2024 End: August 02, 2024 Jean Paul Chong DO Other Provider Active Start : July 28, 2024 End: August 02, 2024 Samson Galdamez MD Other Provider Active Start : July 28, 2024 End: August 02, 2024 Zeus Gates DO Other Provider Active Start: July 28, 2024 End: August 02, 2024 Jason Villanueva MD Other Provider Active Start: July 28, 2024 End: August 02, 2024 Lilliam Stern MD Other Provider Active Start : July 28, 2024 End: August 02, 2024 Roland Matute DO Other Provider Active St art: July 28, 2024 End: August 02, 2024 Dominic Rainey MD Other Provider Active Start: anuary 2024 End: August 02, 2024 Emily Lawrence APRN Other Provider Active Start: July 28, 2024 End: August 02, 2024 Agusto Avery MD Other Provider Active Start: July 28, 2024 End: August 02, 2024 Nick Hernández MD Other Provider Active Start: anuary 2024 End: August 02, 2024 Jv Rankin MD Other Provider Active Start: July 28, 2024 End: August 02, 2024 Alma Delia Hazel MD Other Provider Active Start: July 28, 2024 End: August 02, 2024 Roland Berry DO Other Provider Active Start: July 28, 2024 End: August 02, 2024 Mercedes Palumbo MD Other Provider Active Start: Rommel albert 2024 End: August 02, 2024 Fermin Paredes MD Other Provider Active Start: Julry 2024 End: August 02, 2024 Manisha Lewis NP-Carissa Other Provider Active St art: July 28, 2024 End: August 02, 2024 Ahmet Castillo APRN Other Provider Active Star t: July 28, 2024 End: August 02, 2024 Jose Thacker MD Other Provider Active Start: July 28, 2024 End: August 02, 2024 Beau Valentine MD Other Provider Active Start: Rommel albert 2024 End: August 02, 2024 Darnell Schofield MD Other Provider Active Start: Julry 2024 End: August 02, 2024 Mesha Asencio MD Other Provider Active Star t: July 28, 2024 End: August 02, 2024 Otoniel Benavides MD Other Provider Active Start: anuary 2024 End: August 02, 2024 Marnie Aguilar DO Other Provider Active Start: Rommel albert 2024 End: August 02, 2024 Vasyl Lynn DO Other Provider Active Start : July 28, 2024 End: August 02, 2024 Jacquie Aggarwal APRN Other Provider Active Start: July 28, 2024 End: August 02, 2024 Bib Lynne DO Other Provider Active Start: July 28, 2024 End: August 02, 2024 Emelia Deras MD Other Provider Active Sta rt: July 28, 2024 End: August 02, 2024 Chyna Gannon APRN Other Provider Active Start : July 28, 2024 End: August 02, 2024 Melisa Melissa APRN Other Provider Active St art: July 28, 2024 End: August 02, 2024 Brian Monge MD Other Provider Active Start: J anuary 2024 End: August 02, 2024 Jefry Oquendo MD Other Provider Active S tart: July 28, 2024 End: August 02, 2024 Louis Chapman , Other Provider Active Star t: July 28, 2024 End: August 02, 2024 Andreina Pineda DO Other Provider Active Start: July 28, 2024 End: August 02, 2024 Mitchell Schofield MD Other Provider Active Start: July 28, 2024 End: August 02, 2024 Dino Salamanca MD Other Provider Active Start: July 28, 2024 End: August 02, 2024 Emy Martin APRN Other Provider Active Star t: July 28, 2024 End: August 02, 2024 Bernadette Hernandez MD Other Provider Active Start: J anuary 2024 End: August 02, 2024 Dieter Fernandez MD Other Provider Active Start: Rommel albert 2024 End: August 02, 2024 Tuan Paulson MD Other Provider Active Start: July 28, 2024 End: August 02, 2024 Dominic Lipscomb MD Other Provider Active Start : July 28, 2024 End: August 02, 2024 Froylan Argueta MD Other Provider Active Start: J anuary 2024 End: August 02, 2024 Apple Benitez APRN Other Provider Active Sta rt: July 28, 2024 End: August 02, 2024 Mellissa Lewis APRN Other Provider Active Start: July 28, 2024 End: August 02, 2024 Chhaya Torres , REBECCA Other Provider Active Start: J anuary 2024 End: August 02, 2024 Team Status: Active Member Role Status Dates Jasmyne Casillas APRN DRESSING ROOM ATTENDANT-C Primary Care Provider Active Start: July 29, 2024 Tuan Farrell MD Admit Provider, Atte nding Provider, Other Provider Active Start: July 29, 2024 Angelita Duncan , REBECCA Other Provider Active Star t: July 29, 2024 Carrie Rand , REBECCA Other Provider Active Start : July 29, 2024 Malissa Garcia , REBECCA Other Provider Active Star t: July 29, 2024 Asya Cui RN Other Provider Active Start: J anuary 2024 Ada Hsu RN Other Provider Active Start: Rommel nuary 2024 Manny Dupree MD Other Provider Active Start: July 29, 2024 Jean Paul Chong DO Other Provider Active Start : July 29, 2024 Samson Galdamez MD Other Provider Active Start : July 29, 2024 Zeus Gates DO Other Provider Active Start: July 29, 2024 Jason Villanueva MD Other Provider Active Start: July 29, 2024 Lilliam Stern MD Other Provider Active Start : July 29, 2024 Roland Matute DO Other Provider Active St art: July 29, 2024 Dominic Rainey MD Other Provider Active Start: J anuary 2024 Emily Lawrence APRN Other Provider Active Start: July 29, 2024 Agusto Avery MD Other Provider Active Start: July 29, 2024 Nick Hernández MD Other Provider Active Start: J anuary 2024 Jv Rankin MD Other Provider Active Start: July 29, 2024 Alma Delia Hazel MD Other Provider Active Start: July 29, 2024 Roland Berry DO Other Provider Active Start: July 29, 2024 Mercedes Palumbo MD Other Provider Active Start: Rommel albert 2024 Fermin Paredes MD Other Provider Active Start: Adrian ua2024 MARIETTA Parmar Other Provider Active St art: July 29, 2024 Ahmet Castillo APRN Other Provider Active Star t: July 29, 2024 Jose Thacker MD Other Provider Active Start: July 29, 2024 Beau Valentine MD Other Provider Active Start: Rommel albert 2024 Darnell Schofield MD Other Provider Active Start: Adrian whitt 2024 Mesha Asencio MD Other Provider Active Star t: July 29, 2024 Otoniel Benavides MD Other Provider Active Start: J anuary 2024 Marnie Aguilar DO Other Provider Active Start: bety 2024 Vasyl Lynn DO Other Provider Active Start : July 29, 2024 Jacquie Aggarwal APRN Other Provider Active Start: July 29, 2024 Bib Lynne DO Other Provider Active Start: July 29, 2024 Emelia Deras MD Other Provider Active Sta rt: July 29, 2024 Chyna Gannon APRN Other Provider Active Start : July 29, 2024 Melisa Melissa APRN Other Provider Active St art: July 29, 2024 Brian Monge MD Other Provider Active Start: J anuary 2024 Jefry Oquendo MD Other Provider Active S tart: July 29, 2024 Louis Chapman DO Other Provider Active Star t: July 29, 2024 Andreina Pineda DO Other Provider Active Start: July 29, 2024 Mitchell Schofield MD Other Provider Active Start: July 29, 2024 Dino Salamanca MD Other Provider Active Start: July 29, 2024 Emy Martin APRN Other Provider Active Star t: July 29, 2024 Bernadette Hernandez MD Other Provider Active Start: J anuary 2024 Dieter Fernandez MD Other Provider Active Start: Rommel ary 2024 Tuan Paulson MD Other Provider Active Start: July 29, 2024 Dominic Lipscomb MD Other Provider Active Start : July 29, 2024 Froylan Argueta MD Other Provider Active Start: J anuary 2024 Apple Benitez APRN Other Provider Active Sta rt: July 29, 2024 Mellissa Lewis APRN Other Provider Active Start: July 29, 2024 Chhaya Torres RN Other Provider Active Start: J anuary 2024 Team Status: Inactive Member Role Status Dates Jasmyne Casillas APRN DRESSING ROOM ATTENDANT-C Primary Care Provider Active Start: August 19, 2024 End: August 19, 2024 Sridevi Tovar II, MD Attending Provider Active Start: August 19, 2024 End: August 19, 2024 Team Status: Inactive Member Role Status Dates Jasmyne Casillas APRN DRESSING ROOM ATTENDANT-C Primary Care Provider Active Start: August 26, 2024 End: August 26, 2024 Sridevi Tovar II, MD Attending Provider Active Start: August 26, 2024 End: August 26, 2024 Team Status: Inactive Member Role Status Dates Jasmyne Casillas APRN DRESSING ROOM ATTENDANT-C Primary Care Provider Active Start: September 09, 2024 End: September 09, 2024 Domonique Taylor DO Attending Provider Active St art: September 09, 2024 End: September 09, 2024 Team Status: Inactive Member Role Status Dates Jasmyne Casillas APRN DRESSING ROOM ATTENDANT-C Primary Care Provider Active Start: September 09, 2024 End: September 09, 2024 Sridevi Tovar II, MD Attending Provider Active Start: September 09, 2024 End: September 09, 2024 Team Status: Inactive Member Role Status Dates Jasmyne Casillas APRN DRESSING ROOM ATTENDANT-C Primary Care Provider Active Start: October 01, 2024 End: October 01, 2024 Sridevi Tovar II, MD Attending Provider Active Start: October 01, 2024 End: October 01, 2024 Team Status: Active Member Role Status Dates Jasmyne Casillas APRN DRESSING ROOM ATTENDANT-C Primary Care Provider Active Start: October 21, 2024 Sridevi Tovar II, MD Attending Provider Active Start: October 21, 2024 Team Status: Inactive Member Role Status Dates Jasmyne Casillas APRN DRESSING ROOM ATTENDANT-C Primary Care Provider Active Start: October 21, 2024 End: October 21, 2024 Sridevi Tovar II, MD Attending Provider Active Start: October 21, 2024 End: October 21, 2024 Team Status: Inactive Member Role Status Dates Jasmyne Casillas , SWING FRAME GRINDER OPERATOR DRESSING ROOM ATTENDANT-C Primary Care Provider Active Sridevi Tovar II, MD Attending Provider Active Team Status: Inactive Member Role Status Dates Jasmyne Casillas APRN DRESSING ROOM ATTENDANT-C Primary Care Provider Active Taz Pierre MD Attending Provider Active Histology Technician Relationship Specialty Start Date End Date Jasmyne Casillas, SWING FRAME GRINDER OPERATOR - [place] [address] PCP - General 12/27/15 Histology Technician Relationship Specialty Start Date End Date SonjaJasmyne, SWING FRAME GRINDER OPERATOR [place] [address] PCP - General 12/27/15 Histology Technician Relationship Specialty Start Date End Date Sonja Jasmyne M, SWING FRAME GRINDER OPERATOR [place] [address] PCP - General 12/27/15 Histology Technician Relationship Specialty Start Date End Date Jasmyne Casillas, [facility] PCP - General Family Practice 04/06/21 [place] [address] Cardiology 10/14/13 Tuan Inman Jr., MD Orthopedics 07/19/15 Bryanna Adan MD [address] [place] [address] Physician Hematology/Oncology 07/06/20 Chelle Marin APRN.[employer] [address] [place] [place] [address] Nurse Practitioner Hematology/Oncology 07/06/20 Babatunde Pizarro MD [address] [place] [address] Radiation Oncology 07/07/20 Histology Technician Relationship Specialty Start Date End Date Sonja Jasmyne Ramy, [employer] PCP - General Family Practice 04/06/21 Vahe Gottlieb [address] [place] [address] Cardiology 10/14/13 Tuan Inman Jr., MD Orthopedics 07/19/15 Bryanna Adan MD [address] [facility] [place] [address] Physician Hematology/Oncology 07/06/20 Chelle Marin, SWING FRAME GRINDER OPERATOR.[employer] [address] [facility] [place] [address] Nurse Practitioner Hematology/Oncology 07/06/20 Babatunde Pizarro MD [address] [facility] [place] [address] Radiation Oncology 07/07/20 Histology Technician Relationship Specialty Start Date End Date Sonja Jasmyne Ramy, [employer] PCP - General Family Practice 04/06/21 Vahe Gottlieb [address] [place] [address] Cardiology 10/14/13 Tuan Inman Jr., MD Orthopedics 07/19/15 Bryanna Adan MD [address] [facility] [place] [address] Physician Hematology/Oncology 07/06/20 Chelle Marin, SWING FRAME GRINDER OPERATOR.[employer] [address] [facility] [place] [address] Nurse Practitioner Hematology/Oncology 07/06/20 Babatunde Pizarro MD [address] [place] [address] Radiation Oncology 07/07/20 Histology Technician Relationship Specialty Start Date End Date Jasmyne Casillas, SWING FRAME GRINDER OPERATOR - [employer] [address] [place] [address] PCP - General 12/27/15 Histology Technician Relationship Specialty Start Date End Date Jasmyne Casillas, SWING FRAME GRINDER OPERATOR - [employer] [address] [place] [address] PCP - General 12/27/15 Histology Technician Relationship Specialty Start Date End Date Jasmyne Casillas, SWING FRAME GRINDER OPERATOR - [employer] [address] [place] [address] PCP - General 12/27/15 Histology Technician Relationship Specialty Start Date End Date Jasmyne Casillas, SWING FRAME GRINDER OPERATOR - [employer] [address] [place] [address] PCP - General 12/27/15 Histology Technician Relationship Specialty Start Date End Date Jasmyne Casillas, SWING FRAME GRINDER OPERATOR - [employer] [address] [place] [address] PCP - General 12/27/15 Histology Technician Relationship Specialty Start Date End Date Jasmyne Casillas Ramy, [facility] PCP - General Family Medicine 04/06/21 [place] [address] Cardiology 10/14/13 Tuan Inman Jr., MD Orthopedics 07/19/15 Bryanna Adan MD [address] [place] [address] Physician Hematology/Oncology 07/06/20 Chelle Marin, SWING FRAME GRINDER OPERATOR.[employer] [address] [place] [address] Nurse Practitioner Hematology/Oncology 07/06/20 Babatunde Pizarro MD [address] [place] [address] Radiation Oncology 07/07/20 Histology Technician Relationship Specialty Start Date End Date Jasmyne Casillas CNP PCP - General Family Medicine 04/06/21 Vahe Gottlieb [address] [place] [address] Cardiology 10/14/13 Tuan Inman Jr., MD Orthopedics 07/19/15 Bryanna Adan MD [address] [place] [address] Physician Hematology/Oncology 07/06/20 Chelle Marin, SWING FRAME GRINDER OPERATOR.[facility] [address] [place] [address] Nurse Practitioner Hematology/Oncology 07/06/20 Babatunde Pizarro MD [address] [place] [address] Radiation Oncology 07/07/20 Histology Technician Relationship Specialty Start Date End Date Jasmyne Casillas CNP PCP - General Family Medicine 04/06/21 Vahe Gottlieb [address] [place] [address] Cardiology 10/14/13 Tuan Inman Jr., MD Orthopedics 07/19/15 Bryanna Adan MD [address] [place], [place] [id number] Physician Hematology/Oncology 07/06/20 Chelle Marin, SWING FRAME GRINDER OPERATOR.[facility] [address] [place] [address] Nurse Practitioner Hematology/Oncology 07/06/20 Babatunde Pizarro MD [address] [place] [address] [place], [place] [id number] Radiation Oncology 07/07/20 Histology Technician Relationship Specialty Start Date End Date Jasmyne Casillas, SWING FRAME GRINDER OPERATOR - LAMBSK[employer] TRIMMER [address] [place] [address] PCP - General 12/27/15 Histology Technician Relationship Specialty Start Date End Date Jasmyne Casillas CNP PCP - General Family Medicine 04/06/21 [place] [address] Cardiology 10/14/13 Tuan Inman Jr., MD Orthopedics 07/19/15 Bryanna Adan MD [address] [place] [address] Physician Hematology/Oncology 07/06/20 Chelle Marin, SWING FRAME GRINDER OPERATOR.[facility] [address] [place] [address] Nurse Practitioner Hematology/Oncology 07/06/20 Babatunde Pizarro MD [address] [place], [place] [id number] Radiation Oncology 07/07/20 Histology Technician Relationship Specialty Start Date End Date Jasmyne Casillas CNP PCP - General Family Medicine 04/06/21 Vahe Gottlieb [address] [place] [address] Cardiology 10/14/13 Tuan Inman Jr., MD Orthopedics 07/19/15 Bryanna Adan MD [address] [facility] [place] [address] Physician Hematology/Oncology 07/06/20 Chelle Marin, SWING FRAME GRINDER OPERATOR.[employer] [address] [facility] [place] [address] Nurse Practitioner Hematology/Oncology 07/06/20 Babatunde Pizarro MD [address] [facility] [place] [address] Radiation Oncology 07/07/20 Histology Technician Relationship Specialty Start Date End Date Jasmyne Casillas, [employer] PCP - General Family Medicine 04/06/21 Vahe Gottlieb [address] [place] [address] Cardiology 10/14/13 Tuan Inman Jr., MD Orthopedics 07/19/15 Bryanna Adan MD [address] [facility] [place] [address] Physician Hematology/Oncology 07/06/20 Chelle Marin, SWING FRAME GRINDER OPERATOR.[employer] [address] [facility] [place] [address] Nurse Practitioner Hematology/Oncology 07/06/20 Babatunde Pizarro MD [address] [facility] [place] [address] Radiation Oncology 07/07/20 Histology Technician Relationship Specialty Start Date End Date Sonja Jasmyne Mccann, [employer] TRIMMER PCP - General Family Medicine 04/06/21 Vahe Gottlieb [address] [place] [address] Cardiology 10/14/13 Tuan Inman Jr., MD Orthopedics 07/19/15 Bryanna Adan MD [address] [place] [address] Physician Hematology/Oncology 07/06/20 Chelle Marin, SWING FRAME GRINDER OPERATOR.[employer] [address] [facility] [place] [address] Nurse Practitioner Hematology/Oncology 07/06/20 Babatunde Pizarro MD [address] [place] [address] Radiation Oncology 07/07/20 Histology Technician Relationship Specialty Start Date End Date Jasmyne Casillas, [employer] TR[employer]MER PCP - General Family Medicine 04/06/21 Vahe Gottlieb [address] [place] [address] Cardiology 10/14/13 Tuan Inman Jr., MD Orthopedics 07/19/15 Bryanna Adan MD [address] [place] [address] Physician Hematology/Oncology 07/06/20 Chelle Marin, SWING FRAME GRINDER OPERATOR.[employer] [address] [place] [address] Nurse Practitioner Hematology/Oncology 07/06/20 Babatunde Pizarro MD [address] [facility] [place] [address] Radiation Oncology 07/07/20 Histology Technician Relationship Specialty Start Date End Date Jasmyne Casillas, LAMBSKIN TRIMMER PCP - General Family Medicine 04/06/21 Vahe Gottlieb [address] [place] [address] Cardiology 10/14/13 Tuan Inman Jr., MD Orthopedics 07/19/15 Bryanna Adan MD [address] [facility] [place] [address] Physician Hematology/Oncology 07/06/20 Chelle Marin, SWING FRAME GRINDER OPERATOR.[facility] [address] [facility] [place] [address] Nurse Practitioner Hematology/Oncology 07/06/20 Babatunde Pizarro MD [address] [facility] [place] [address] Radiation Oncology 07/07/20 Histology Technician Relationship Specialty Start Date End Date Jasmyne Casillas, [employer] TR[employer]MER PCP - General Family Medicine 04/06/21 Vahe Gottlieb [address] [place] [address] Cardiology 10/14/13 Tuan Inman Jr., MD Orthopedics 07/19/15 Bryanna Adan MD [address] [facility] [place] [address] Physician Hematology/Oncology 07/06/20 Chelle Marin, SWING FRAME GRINDER OPERATOR.[facility] [address] [place], [place] [id number] Nurse Practitioner Hematology/Oncology 07/06/20 Babatunde Pizarro MD [address] [place] [address] Radiation Oncology 07/07/20 Histology Technician Relationship Specialty Start Date End Date Jasmyne Casillas, [facility] [address] [place] [address] PCP - General Family Medicine 04/06/21 Vahe Gottlieb [address] [place] [address] Cardiology 10/14/13 Tuan Inman Jr., MD [address] [place] [address] Orthopedics 07/19/15 Bryanna Adan MD [address] [place], [place] [id number] Physician Hematology/Oncology 07/06/20 Chelle Marin, SWING FRAME GRINDER OPERATOR.[facility] [address] [place] [address] Nurse Practitioner Hematology/Oncology 07/06/20 Babatunde Pizarro MD [address] [place] [address] Radiation Oncology 07/07/20 Sharla De Oliveira MD [address] [place] [address] [place] [address] Cardiology 05/18/22 Histology Technician Relationship Specialty Start Date End Date Jasmyne Casillas, [facility] [address] [place] [address] PCP - General Family Medicine 04/06/21 Vahe Gottlieb [address] [place] [address] Cardiology 10/14/13 Tuan Inman Jr., MD [address] [place] [address] Orthopedics 07/19/15 Bryanna Adan MD [address] [facility] [address] [place], [place] [id number] Physician Hematology/Oncology 07/06/20 Chelle Marin APRN.[facility] [address] [place] [address] Nurse Practitioner Hematology/Oncology 07/06/20 Babatunde Pizarro MD [address] [facility] [place] [address] Radiation Oncology 07/07/20 Sharla De Oliveira MD [address] [place] [address] Cardiology 05/18/22 Histology Technician Relationship Specialty Start Date End Date Jasmyne Casillas, [facility] [address] [facility] [place] [address] PCP - General Family Medicine 04/06/21 Vahe Gottlieb [address] [place] [address] Cardiology 10/14/13 Tuan Inman Jr., MD [address] [facility] [place] [address] [phone] Orthopedics 07/19/15 Bryanna Adan MD [address] [facility] [place] [address] Physician Hematology/Oncology 07/06/20 Chelle Marin, SWING FRAME GRINDER OPERATOR.[facility] [address] [place] [address] Nurse Practitioner Hematology/Oncology 07/06/20 Babatunde Pizarro MD [address] [place] [address] Radiation Oncology 07/07/20 Sharla De Oliveira MD [address] [place] [address] Cardiology 05/18/22 Histology Technician Relationship Specialty Start Date End Date Jasmyne Casillas, [facility] [address] [place] [address] PCP - General Family Medicine 04/06/21 Vahe Gottlieb [address] [place] [address] Cardiology 10/14/13 Tuan Inman Jr., MD [address] [facility] [place] [address] Orthopedics 07/19/15 Bryanna Adan MD [address] [place] [address] Physician Hematology/Oncology 07/06/20 Chelle Marin, SWING FRAME GRINDER OPERATOR.[facility] [address] [place] [address] Nurse Practitioner Hematology/Oncology 07/06/20 Babatunde Pizarro MD [address] [place] [address] Radiation Oncology 07/07/20 Sharla De Oliveira MD [address] [place] [address] Cardiology 05/18/22 Histology Technician Relationship Specialty Start Date End Date Jasmyne Casillas, [employer] [address] [place] [address] PCP - General Family Medicine 04/06/21 Vahe Gottlieb [address] [facility] [place] [address] Cardiology 10/14/13 Tuan Inman Jr., MD [address] [facility] [place] [address] Orthopedics 07/19/15 Bryanna Adan MD [address] [place] [address] Physician Hematology/Oncology 07/06/20 Chelle Marin, ALYSSA.[facility] [address] [place] [address] Nurse Practitioner Hematology/Oncology 07/06/20 Babatunde Pizarro MD [address] [place] [address] Radiation Oncology 07/07/20 Sharla De Oliveira MD [address] [place] [address] Cardiology 05/18/22 Histology Technician Relationship Specialty Start Date End Date Jasmyne Casillas, [facility] [address] [place] [place] [address] PCP - General Family Medicine 04/06/21 Vahe Gottlieb [address] [facility] [place] [address] Cardiology 10/14/13 Tuan Inman Jr., MD [address] [facility] [place] [address] Orthopedics 07/19/15 Bryanna Adan MD [address] [place], [place] [address] Physician Hematology/Oncology 07/06/20 Chelle Marin, SWING FRAME GRINDER OPERATOR.[facility] [address] [place] [address] Nurse Practitioner Hematology/Oncology 07/06/20 Babatunde Pizarro MD [address] [place] [address] Radiation Oncology 07/07/20 Sharla De Oliveira MD [address] [place] [address] Cardiology 05/18/22 Histology Technician Relationship Specialty Start Date End Date Jasmyne Casillas, [facility] [address] [place] [place] [address] PCP - General Family Medicine 04/06/21 Vahe Gottlieb [address] [facility] [address] Cardiology 10/14/13 Tuan Inman Jr., MD [address] [place] [address] Orthopedics 07/19/15 Bryanna Adan MD [address] [place] [place] [address] Physician Hematology/Oncology 07/06/20 Chelle Marin, SWING FRAME GRINDER OPERATOR.[facility] [address] [place] [place] [address] Nurse Practitioner Hematology/Oncology 07/06/20 Babatunde Pizarro MD [address] [place] [address] Radiation Oncology 07/07/20 Sharla De Oliveira MD [address] [place] [address] Cardiology 05/18/22 Histology Technician Relationship Specialty Start Date End Date Jasmyne Casillas, [facility] TR[employer]MER [address] [facility] [place] [address] PCP - General Family Medicine 04/06/21 Vahe Gottlieb [address] [place] [address] Cardiology 10/14/13 Tuan Inman Jr., MD [address] [facility] [place] [address] Orthopedics 07/19/15 Bryanna Adan MD [address] [facility] [place] [address] Physician Hematology/Oncology 07/06/20 Chelle Marin APRN.[facility] [address] [place] [address] Nurse Practitioner Hematology/Oncology 07/06/20 Babatunde Pizarro MD [address] [facility] [place] [address] Radiation Oncology 07/07/20 Sharla De Oliveira MD [address] [place] [address] Cardiology 05/18/22 Histology Technician Relationship Specialty Start Date End Date Jasmyne Casillas, [employer] [address] [facility] [place] [address] PCP - General Family Medicine 04/06/21 Vahe Gottlieb [address] [place] [address] Cardiology 10/14/13 Tuan Inman Jr., MD [address] [place] [address] Orthopedics 07/19/15 Bryanna Adan MD [address] [place], [place] [address] Physician Hematology/Oncology 07/06/20 Chelle Marin, SWING FRAME GRINDER OPERATOR.[facility] [address] [place] [address] Nurse Practitioner Hematology/Oncology 07/06/20 Babatunde Pizarro MD [address] [place] [address] Radiation Oncology 07/07/20 Sharla De Oliveira MD [address] [place] [address] Cardiology 05/18/22 Histology Technician Relationship Specialty Start Date End Date Jasmyne Casillas, [employer] [address] [place] [address] PCP - General Family Medicine 04/06/21 Vahe Gottlieb [address] [facility] [place] [address] Cardiology 10/14/13 Tuan Inman Jr., MD [address] [facility] [place] [address] Orthopedics 07/19/15 Bryanna Adan MD [address] [address] Physician Hematology/Oncology 07/06/20 Chelle Marin, SWING FRAME GRINDER OPERATOR.[facility] [address] [place] [address] Nurse Practitioner Hematology/Oncology 07/06/20 Babatunde Pizarro MD [address] [place] [address] Radiation Oncology 07/07/20 Sharla De Oliveira MD [address] [place] [address] Cardiology 05/18/22 Histology Technician Relationship Specialty Start Date End Date Jasmyne Casillas, [employer] [address] [place] [address] PCP - General Family Medicine 04/06/21 Vahe Gottlieb [address] [place] [address] Cardiology 10/14/13 Tuan Inman Jr., MD [address] [place] [address] Orthopedics 07/19/15 Bryanna Adan MD [address] [place] [place] [address] Physician Hematology/Oncology 07/06/20 Chelle Marin APRN.[facility] [address] [place] [address] Nurse Practitioner Hematology/Oncology 07/06/20 Babatunde Pizarro MD [address] [place] [address] Radiation Oncology 07/07/20 Sharla De Oliveira MD [address] [place] [address] Cardiology 05/18/22 Histology Technician Relationship Specialty Start Date End Date Jasmyne Casillas, [facility] [employer] [address] [facility] [place] [address] PCP - General Family Medicine 04/06/21 Vahe Gottlieb [address] [place] [address] Cardiology 10/14/13 Tuan Inman Jr., MD [address] [place] [address] Orthopedics 07/19/15 Bryanna Adan MD [address] [place] [address] Physician Hematology/Oncology 07/06/20 Chelle Marin, ALYSSA.[facility] [address] [place] [address] Nurse Practitioner Hematology/Oncology 07/06/20 Babatunde Pizarro MD [address] [place] [address] Radiation Oncology 07/07/20 Sharla De Oliveira MD [address] [place] [address] Cardiology 05/18/22 Histology Technician Relationship Specialty Start Date End Date Jasmyne Casillas APRN - [employer] [address] [place] [address] PCP - General 12/27/15 Team Status: Inactive Member Role Status Dates Jasmyne Casillas APRN DRESSING ROOM ATTENDANT-C Primary Care Provider Active Sridevi Arguelles MD Attending Provider Active Histology Technician Relationship Specialty Start Date End Date Jasmyne Casillas CNP [address] [place] [address] PCP - General Family Medicine 04/06/21 Vahe Gottlieb [address] [place] [address] Cardiology 10/14/13 Tuan Inman Jr., MD [address] [place] [address] Orthopedics 07/19/15 Bryanna Adan MD [address] [place] [address] [place] [address] Physician Hematology/Oncology 07/06/20 Chelle Marin APRN.[facility] [address] [place] [address] [place] [address] Nurse Practitioner Hematology/Oncology 07/06/20 Babatunde Pizarro MD [address] [place] [address] [place] [address] Radiation Oncology 07/07/20 Sharla De Oliveira MD [address] [place] [phone] Cardiology 05/18/22 Histology Technician Relationship Specialty Start Date End Date Jasmyne Casillas L[employer]BSKIN TRIMMER [address] [place] [address] [place] [address] PCP - General Family Medicine 04/06/21 Vahe Gottlieb [address] [place] [address] Cardiology 10/14/13 Tuan Inman Jr., MD [address] [place] [address] Orthopedics 07/19/15 Bryanna Adan MD [address] [place] [address] [place], [place] [address] Physician Hematology/Oncology 07/06/20 Chelle Marin, SWING FRAME GRINDER OPERATOR.[facility] [address] [place] [address] Nurse Practitioner Hematology/Oncology 07/06/20 Babatunde Pizarro MD [address] [place] [place] [address] Radiation Oncology 07/07/20 Sharla De Oliveira MD [address] [place], [place] [address] [address] Cardiology 05/18/22 Histology Technician Relationship Specialty Start Date End Date Jasmyne Casillas, [employer] [address] [place], [place] [address] PCP - General Family Medicine 04/06/21 Vahe Gottlieb [address] [place] [address] Cardiology 10/14/13 Tuan Inman Jr., MD [address] [place] [address] Orthopedics 07/19/15 Bryanna Adan MD [address] [address] Physician Hematology/Oncology 07/06/20 Chelle Marin, SWING FRAME GRINDER OPERATOR.[facility] [address] [place] [place] [address] Nurse Practitioner Hematology/Oncology 07/06/20 Babatunde Pizarro MD [address] [place] [address] Radiation Oncology 07/07/20 Sharla De Oliveira MD [address] [facility] [place] [address] Cardiology 05/18/22 Histology Technician Relationship Specialty Start Date End Date Jasmyne Casillas LAMBSKIN TRIMMER [address] [place] [address] PCP - General Family Medicine 04/06/21 Vahe Gottlieb [address] [facility] [address] Cardiology 10/14/13 Tuan Inman Jr., MD [address] [place] [address] Orthopedics 07/19/15 Bryanna Adan MD [address] [place] [address] Physician Hematology/Oncology 07/06/20 Chelle Marin APRN.[facility] [employer] [address] [place] [address] Nurse Practitioner Hematology/Oncology 07/06/20 Babatunde Pizarro MD [address] [place] [address] Radiation Oncology 07/07/20 Sharla De Oliveira MD [address] [facility] [place] [address] Cardiology 05/18/22 Histology Technician Relationship Specialty Start Date End Date Soraida Sethi MD [address] [place] [address] PCP - General Family Medicine 01/15/23 Histology Technician Relationship Specialty Start Date End Date Soraida Sethi MD [address] [place] [address] PCP - General Family Medicine 01/15/23 Team Status: Inactive Member Role Status Dates Sridevi Tovar II, MD Attending Provider Active Start: July 11, 2023 End: July 11, 2023 Team Status: Inactive Member Role Status Dates Jasmyne Casillas APRN DRESSING ROOM ATTENDANT-C Primary Care Provider Active Start: September 03, 2023 End: September 03, 2023 Sridevi Tovar II, MD Attending Provider Active Start: September 03, 2023 End: September 03, 2023 Team Status: Inactive Member Role Status Dates Jasmyne Casillas APRN DRESSING ROOM ATTENDANT-C Primary Care Provider Active Start: September 04, 2023 End: September 04, 2023 Taz Pierre MD Attending Provider Active Start: September 04, 2023 End: September 04, 2023 Team Status: Inactive Member Role Status Dates Jasmyne Casillas APRN DRESSING ROOM ATTENDANT-C Primary Care Provider Active Start: September 12, 2023 End: September 12, 2023 Eugene Mims MD Attending Provider Active Sta rt: September 12, 2023 End: September 12, 2023 Histology Technician Relationship Specialty Start Date End Date Jasmyne Casillas CNP [address] [place] [address] [place] [address] PCP - General Family Medicine 04/06/21 Vahe Gottlieb [address] [place] [address] Cardiology 10/14/13 Tuan Inman Jr., MD [address] [place] [address] Orthopedics 07/19/15 Bryanna Adan MD [address] [place], [place] [address] Physician Hematology/Oncology 07/06/20 Chelle Marin, SWING FRAME GRINDER OPERATOR.[facility] [address] [place] [address] Nurse Practitioner Hematology/Oncology 07/06/20 Babatunde Pizarro MD [address] [place], [place] [address] Radiation Oncology 07/07/20 Sharla De Oliveira MD [address] [place], [place] [address] [address] Cardiology 05/18/22 Histology Technician Relationship Specialty Start Date End Date Jasmyne Casillas, [employer] TRIMMER [address] [place] [place] [address] PCP - General Family Medicine 04/06/21 Vahe Gottlieb [address] [place] [address] Cardiology 10/14/13 Tuan Inman Jr., MD [address] [place] [address] Orthopedics 07/19/15 Bryanna Adan MD [address] [place], [place] [address] Physician Hematology/Oncology 07/06/20 Chelle Marin, SWING FRAME GRINDER OPERATOR.[facility] [employer] [address] [place], [place] [address] Nurse Practitioner Hematology/Oncology 07/06/20 Babatunde Pizarro MD [address] [place] [address] Radiation Oncology 07/07/20 Sharla De Oliveira MD [address] [place] [address] Cardiology 05/18/22 Histology Technician Relationship Specialty Start Date End Date Jasmyne Casillas LAMBSKIN TRIMMER [address] [place] [address] PCP - General Family Medicine 04/06/21 Vahe Gottlieb [address] [place] [address] Cardiology 10/14/13 Tuan Inman Jr., MD [address] [place] [address] Orthopedics 07/19/15 Bryanna Adan MD [address] [place] [address] Physician Hematology/Oncology 07/06/20 Chelle Marin APRN.[facility] [address] [place] [place] [address] Nurse Practitioner Hematology/Oncology 07/06/20 Babatunde Pizarro MD [address] [place] [address] Radiation Oncology 07/07/20 Sharla De Oliveira MD [address] [place] [phone] Cardiology 05/18/22 Team Status: Inactive Member Role Status Dates Jasmyne Casillas APRN DRESSING ROOM ATTENDANT-C Primary Care Provider Active Start: December 12, 2023 End: December 12, 2023 Eugene Mims MD Attending Provider Active Sta rt: December 12, 2023 End: December 12, 2023 Team Status: Active Member Role Status Dates Jasmyne Casillas APRN DRESSING ROOM ATTENDANT-C Primary Care Provider Active Start: December 12, 2023 Eugene Mism MD Attending Provider Active Sta rt: December 12, 2023 Team Status: Inactive Member Role Status Dates Jasmyne Casillas APRN DRESSING ROOM ATTENDANT-C Primary Care Provider Active Start: January 08, 2024 End: January 08, 2024 Eugene Mims MD Attending Provider Active Sta rt: January 08, 2024 End: January 08, 2024 Team Status: Active Member Role Status Dates Jasmyne Casillas APRN DRESSING ROOM ATTENDANT-C Primary Care Provider Active Start: January 08, 2024 Eugene Mims MD Attending Provider Active Sta rt: January 08, 2024 Histology Technician Relationship Specialty Start Date End Date Jasmyne Casillas, [employer] [address] [place] [address] PCP - General Family Medicine 04/06/21 Vahe Gottlieb [address] [place] [address] Cardiology 10/14/13 Tuan Inman Jr., MD [address] [place] [address] Orthopedics 07/19/15 Bryanna Aadn MD [address] [facility] [place] [address] Physician Hematology/Oncology 07/06/20 Chelle Marin APRN.[facility] [employer] [address] [place] [address] Nurse Practitioner Hematology/Oncology 07/06/20 Babatunde Pizarro MD [address] [place] [address] [place] [address] Radiation Oncology 07/07/20 Sharla De Oliveira MD [address] [place], [place] [address] [phone] Cardiology 05/18/22 Histology Technician Relationship Specialty Start Date End Date Jasmyne Casillas LAMBSKIN TRIMMER [address] [place] [address] [place] [address] PCP - General Family Medicine 04/06/21 Vahe Gottlieb MD [address] [place] [address] Cardiology 10/14/13 Tuan Inman Jr., MD [address] [place] [address] Orthopedics 07/19/15 Bryanna Adna MD [address] [place] [address] [place] [address] Physician Hematology/Oncology 07/06/20 Chelle Marin, ALYSSA.[facility] [address] [place] [address] [place] [address] Nurse Practitioner Hematology/Oncology 07/06/20 Babatunde Pizarro MD [address] [place] [address] [place] [address] Radiation Oncology 07/07/20 Sharla De Oliveira MD [address] [place] [address] Cardiology 05/18/22 Team Status: Inactive Member Role Status Dates Jasmyne Casillas APRN DRESSING ROOM ATTENDANT-C Primary Care Provider Active Start: March 23, 2024 End: March 23, 2024 Eugene Mims MD Attending Provider Active Sta rt: March 23, 2024 End: March 23, 2024 Histology Technician Relationship Specialty Start Date End Date Jasmyne Casillas, [employer]AM[employer]KIN TRIMMER [address] [facility] [place] [address] PCP - General Family Medicine 04/06/21 Vahe Gottlieb MD [address] [place] [address] Cardiology 10/14/13 Tuan Inman Jr., MD [address] [place] [address] Orthopedics 07/19/15 Bryanna Adan MD [address] [place] [address] [place] [address] Physician Hematology/Oncology 07/06/20 Chelle Marin APRN.[employer] [address] [facility] [place] [address] Nurse Practitioner Hematology/Oncology 07/06/20 Babatunde Pizarro MD [address] [facility] [place] [address] Radiation Oncology 07/07/20 Sharla De Oliveira MD [address] [place] [address] Cardiology 05/18/22 Team Status: Inactive Member Role Status Dates Jasmyne Casillas APRN DRESSING ROOM ATTENDANT-C Primary Care Provider Active Start: April 01, 2024 End: April 01, 2024 Sridevi Tovar II, MD Attending Provider Active Start: April 01, 2024 End: April 01, 2024 Team Status: Inactive Member Role Status Dates Jasmyne Casillas APRN DRESSING ROOM ATTENDANT-C Primary Care Provider Active Start: April 21, 2024 End: April 21, 2024 Eugene Mims MD Attending Provider Active Sta rt: April 21, 2024 End: April 21, 2024 Team Status: Active Member Role Status Dates Jasmyne Casillas APRN DRESSING ROOM ATTENDANT-C Primary Care Provider Active Start: April 21, 2024 Eugene Mims MD Attending Provider, Other Provider Active Start: April 21, 2024 Histology Technician Relationship Specialty Start Date End Date Jasmyne Casillas APRN - LAMBSKIN TRIMMER [address] [place], [place] [id number] PCP - General 12/27/15 Team Status: Inactive Member Role Status Dates Jasmyne Casillas APRN DRESSING ROOM ATTENDANT-C Primary Care Provider Active Start: May 06, 2024 End: May 06, 2024 Eugene Mims MD Attending Provider Active Sta rt: May 06, 2024 End: May 06, 2024 Histology Technician Relationship Specialty Start Date End Date Jasmyne Casillas APRN - LAMBSKIN TRIMMER [address] [place] [id number] PCP - General 12/27/15 Histology Technician Relationship Specialty Start Date End Date Jasmyne Casillas LAMBSKIN TRIMMER [address] [place] [address] [place] [address] PCP - General Family Medicine 04/06/21 Vahe Gottlieb MD [address] [place] [phone] Cardiology 10/14/13 Tuan Inman Jr., MD [address] [place] [address] Orthopedics 07/19/15 Bryanna Adan MD [address] [place] [address] [place] [address] Physician Hematology/Oncology 07/06/20 Chelle Marin APRN.[employer] TRIMMER [address] [place] [address] [place] [address] Nurse Practitioner Hematology/Oncology 07/06/20 Babatunde Pizarro MD [address] [place] [address] [place] [address] Radiation Oncology 07/07/20 Sharla De Oliveira MD [address] [place] [phone] Cardiology 05/18/22 Histology Technician Relationship Specialty Start Date End Date Jasmyne Casillas LAMBSKIN TRIMMER [address] [place] [address] [place] [address] PCP - General Family Medicine 04/06/21 Vahe Gottlieb MD [address] [place] [address] Cardiology 10/14/13 Tuan Inman Jr., MD [address] [place] [address] Orthopedics 07/19/15 Bryanna Adan MD [address] [place] [address] [place] [address] Physician Hematology/Oncology 07/06/20 Chelle Marin, SWING FRAME GRINDER OPERATOR.[employer]KIN TRIMMER [address] [place] [address] Nurse Practitioner Hematology/Oncology 07/06/20 Babatunde Pizarro MD [address] [place] [address] Radiation Oncology 07/07/20 Sharla De Oliveira MD [address] [place] [address] [place] [phone] Cardiology 05/18/22 Histology Technician Relationship Specialty Start Date End Date Jasmyne Casillas, LAMBSKIN TRIMMER [address] [place] [address] PCP - General Family Medicine 04/06/21 Vahe Gottlieb MD [address] [place] [address] Cardiology 10/14/13 Tuan Inman Jr., MD [address] [place] [address] Orthopedics 07/19/15 Bryanna Adan MD [address] [place] [address] Physician Hematology/Oncology 07/06/20 Chelle Marin, SWING FRAME GRINDER OPERATOR.LAMBSKIN TRIMMER [address] [place] [address] Nurse Practitioner Hematology/Oncology 07/06/20 Babatunde Pizarro MD [address] [address] Radiation Oncology 07/07/20 Sharla De Oliveira MD [address] [facility] [place] [address] Cardiology 05/18/22 Histology Technician Relationship Specialty Start Date End Date Jasmyne Casillas CNP [address] [place] [address] PCP - General Family Medicine 04/06/21 Vahe Gottlieb MD [address] [facility] [place] [address] Cardiology 10/14/13 Tuan Inman Jr., MD [address] [place] [address] Orthopedics 07/19/15 Bryanna Adan MD [address] [place] [address] Physician Hematology/Oncology 07/06/20 Chelle Marin APRN.LAMBSKIN TRIMMER [address] [place] [address] Nurse Practitioner Hematology/Oncology 07/06/20 Babatunde Pizarro MD [address] [place] [address] Radiation Oncology 07/07/20 Sharla De Oliveira MD [address] [facility] [place] [phone] Cardiology 05/18/22 Team Status: Inactive Member Role Status Dates Jasmyne Casillas APRN DRESSING ROOM ATTENDANT-C Primary Care Provider Active Start: June 02, 2024 End: June 02, 2024 Sridevi Tovar II, MD Attending Provider Active Start: June 02, 2024 End: June 02, 2024 Team Status: Inactive Member Role Status Dates Jasmyne Casillas APRN DRESSING ROOM ATTENDANT-C Primary Care Provider Active Start: June 10, 2024 End: June 10, 2024 Sridevi Tovar II, MD Attending Provider Active Start: June 10, 2024 End: June 10, 2024 Team Status: Inactive Member Role Status Dates Jasmyne Casillas APRN DRESSING ROOM ATTENDANT-C Primary Care Provider Active Start: June 15, 2024 End: June 15, 2024 Domonique Taylor DO Attending Provider Active St art: June 15, 2024 End: June 15, 2024 Team Status: Inactive Member Role Status Dates Jasmyne Casillas APRN DRESSING ROOM ATTENDANT-C Primary Care Provider Active Start: July 13, 2024 End: July 13, 2024 Sridevi Tovar II, MD Attending Provider Active Start: July 13, 2024 End: July 13, 2024 Team Status: Active Member Role Status Dates Jasmyne Casillas APRN DRESSING ROOM ATTENDANT-C Primary Care Provider Active Start: July 16, 2024 Sridevi Tovar II, MD Attending Provider Active Start: July 16, 2024 Team Status: Inactive Member Role Status Dates Jasmyne Casillas APRN DRESSING ROOM ATTENDANT-C Primary Care Provider Active Start: July 16, 2024 End: July 16, 2024 Sridevi Tovar II, MD Attending Provider Active Start: July 16, 2024 End: July 16, 2024 Team Status: Inactive Member Role Status Dates Jasmyne Casillas APRN DRESSING ROOM ATTENDANT-C Primary Care Provider Active Start: July 17, 2024 End: July 17, 2024 Sridevi Tovar II, MD Attending Provider Active Start: July 17, 2024 End: July 17, 2024 Histology Technician Relationship Specialty Start Date End Date Jasmyne Casillas APRN - [place] [address] [place] [address] PCP - General 12/27/15 Histology Technician Relationship Specialty Start Date End Date Jasmyne Casillas CNP [address] [place] [address] [place] [address] PCP - General Family Medicine 04/06/21 Vahe Gottlieb MD [address] [place] [address] Cardiology 10/14/13 Tuan Inman Jr., MD [address] [place] [address] Orthopedics 07/19/15 Bryanna Adan MD [address] [place] [address] [place] [address] Physician Hematology/Oncology 07/06/20 Chelle Marin APRN.LAMBSKIN TRIMMER [address] [place] [address] [place] [address] Nurse Practitioner Hematology/Oncology 07/06/20 Babatunde Pizarro MD [address] [place] [address] Radiation Oncology 07/07/20 Sharla De Oliveira MD [address] [place] [phone] Cardiology 05/18/22 Histology Technician Relationship Specialty Start Date End Date Jasmyne Casillas LAMBSKIN TRIMMER [address] [place] [address] PCP - General Family Medicine 04/06/21 Vahe Gottlieb MD [address] [place] [address] Cardiology 10/14/13 Tuan Inman Jr., MD [address] [place] [address] Orthopedics 07/19/15 Bryanna Adan MD [address] [place] [address] [place] [address] Physician Hematology/Oncology 07/06/20 Chelle Marin APRN.LAMBSKIN TRIMMER [address] [place] [address] [place] [address] Nurse Practitioner Hematology/Oncology 07/06/20 Babatunde Pizarro MD [address] [place] [address] [place] [address] Radiation Oncology 07/07/20 Sharla De Oliveira MD [address] [place] [phone] Cardiology 05/18/22 Histology Technician Relationship Specialty Start Date End Date Jasmyne Casillas LAMBSKIN TRIMMER [address] [place] [address] [place] [address] PCP - General Family Medicine 04/06/21 Vahe Gottlieb MD [address] [place] [address] Cardiology 10/14/13 Tuan [place]man Jr., MD [address] [facility] [place] [address] Orthopedics 07/19/15 Bryanna Adan MD [address] [place] [address] [place] [address] Physician Hematology/Oncology 07/06/20 Chelle Marin APRN.LAMBSKIN TRIMMER [address] [place] [address] Nurse Practitioner Hematology/Oncology 07/06/20 Babatunde Pizarro MD [address] [place] [address] Radiation Oncology 07/07/20 Sharla De Oliveira MD [address] [place] [phone] Cardiology 05/18/22 Histology Technician Relationship Specialty Start Date End Date Soraida Sethi MD [address] [place] [address] PCP - General Family Medicine 01/15/23 Team Status: Active Member Role Status Dates Jasmyne Casillas APRN DRESSING ROOM ATTENDANT-C Primary Care Provider Active Start: September 09, 2024 Sridevi Tovar II, MD Attending Provider Active Start: September 09, 2024 Histology Technician Relationship Specialty Start Date End Date Jasmyne Casillas CNP [address] [place] [address] [place] [address] PCP - General Family Medicine 04/06/21 Vahe Gottlieb MD [address] [place] [address] Cardiology 10/14/13 Tuan [place] Jr., MD [address] [place] [address] Orthopedics 07/19/15 Bryanna Adan MD [address] [place] [address] [place] [address] Physician Hematology/Oncology 07/06/20 Chelle Marin APRN.LAMBSKIN TRIMMER [address] [place] [address] [place] [address] Nurse Practitioner Hematology/Oncology 07/06/20 Babatunde Pizarro MD [address] [place] [address] [place] [address] Radiation Oncology 07/07/20 Sharla De Oliveira MD [address] [place] [phone] Cardiology 05/18/22 Team Status: Inactive Member Role Status Dates Jasmyne Casillas APRN DRESSING ROOM ATTENDANT-C Primary Care Provider Active Start: October 26, 2024 End: October 26, 2024 Domonique Taylor DO Attending Provider Active St art: October 26, 2024 End: October 26, 2024 Team Status: Active Member Role Status Dates Jasmyne Casillas APRN DRESSING ROOM ATTENDANT-C Primary Care Provider Active Start: October 26, 2024 Domonique Taylor DO Attending Provider, Other Provider Active Start: October 26, 2024 Histology Technician Relationship Specialty Start Date End Date Soraida Sethi MD [address] [place] [address] PCP - General Family Medicine 01/15/23 Histology Technician Relationship Specialty Start Date End Date Soraida Sethi MD [address] [place], [place] [phone] PCP - General Family Medicine 01/15/23 Histology Technician Relationship Specialty Start Date End Date Jasmyne Casillas APRN - LAMBSKIN TRIMMER [address] [place] [address] PCP - General 12/27/15 Histology Technician Relationship Specialty Start Date End Date Jasmyne Casillas CNP [address] [facility] [address] PCP - General Family Medicine 04/06/21 Vahe Gottlieb MD [address] [place] [address] Cardiology 10/14/13 Tuan Inman Jr., MD [address] [place] [address] Orthopedics 07/19/15 Bryanna Adan MD [address] [place] [address] Physician Hematology/Oncology 07/06/20 Chelle Marin APRN.LAMBSKIN TRIMMER [address] [facility] [place] [address] Nurse Practitioner Hematology/Oncology 07/06/20 Babatunde Pizarro MD [address] [place] [place] [address] Radiation Oncology 07/07/20 Sharla De Oliveira MD [address] [place] [address] [place] [phone] Cardiology 05/18/22 Histology Technician Relationship Specialty Start Date End Date Jasmyne Casillas CNP [address] [place] [address] PCP - General Family Medicine 04/06/21 Vahe Gottlieb MD [address] [place] [address] Cardiology 10/14/13 Tuan Inman Jr., MD [address] [place] [address] Orthopedics 07/19/15 Bryanna Adan MD [address] [place], [place] [id number] Physician Hematology/Oncology 07/06/20 Chelle Marin APRN.LAMBSKIN TRIMMER [address] [place], [place] [phone] Nurse Practitioner Hematology/Oncology 07/06/20 Babatunde Pizarro MD [address] [place], [place] [phone] Radiation Oncology 07/07/20 Sharla De Oliveira MD [address] [place], [place] [address] [address] Cardiology 05/18/22 Histology Technician Relationship Specialty Start Date End Date Jasmyne Casillas LAMBSKIN TRIMMER [address] [place] [address] PCP - General Family Medicine 04/06/21 Vahe Gottlieb MD [address] [place] [address] Cardiology 10/14/13 Tuan Inman Jr., MD [address] [place] [address] Orthopedics 07/19/15 Bryanna Adan MD [address] [place] [address] Physician Hematology/Oncology 07/06/20 Chelle Marin, SWING FRAME GRINDER OPERATOR.LAMBSKIN TRIMMER [address] [place] [address] Nurse Practitioner Hematology/Oncology 07/06/20 Babatunde Pizarro MD [address] [place] [address] [place] [address] Radiation Oncology 07/07/20 Sharla De Oliveira MD [address] [place], [place] [address] [address] Cardiology 05/18/22 Histology Technician Relationship Specialty Start Date End Date Jasmyne Casillas LAMBSKIN TRIMMER [address] [place] [address] [place], [place] [id number] PCP - General Family Medicine 04/06/21 Vahe Gottlieb MD [address] [place] [address] Cardiology 10/14/13 Tuan Inman Jr., MD [address] [place] [address] Orthopedics 07/19/15 Bryanna Adan MD [address] [place] [address] [place] [address] Physician Hematology/Oncology 07/06/20 Chelle Marin, SWING FRAME GRINDER OPERATOR.LAMBSKIN TRIMMER [address] [place] [address] [place] [address] Nurse Practitioner Hematology/Oncology 07/06/20 Babatunde Pizarro MD [address] [facility] [address] Radiation Oncology 07/07/20 Sharla De Oliveira MD [address] [facility] [place] [phone] Cardiology 05/18/22 Histology Technician Relationship Specialty Start Date End Date Jasmyne Casillas LAMBSKIN TRIMMER [address] [place] [address] PCP - General Family Medicine 04/06/21 Vahe Gottlieb MD [address] [place] [address] Cardiology 10/14/13 Tuan Inman Jr., MD [address] [place] [address] Orthopedics 07/19/15 Bryanna Adan MD [address] [place] [address] Physician Hematology/Oncology 07/06/20 Chelle Marin APRN.LAMBSKIN TRIMMER [address] [place] [address] Nurse Practitioner Hematology/Oncology 07/06/20 Babatunde Pizarro MD [address] [place] [address] Radiation Oncology 07/07/20 Sharla De Oliveira MD [address] [facility] [place] [address] Cardiology 05/18/22 Histology Technician Relationship Specialty Start Date End Date Jasmyne Casillas, LAMBSKIN TRIMMER [address] [facility] [address] PCP - General Family Medicine 04/06/21 Vahe Gottlieb MD [address] [place] [address] Cardiology 10/14/13 Tuan Inman Jr., MD [address] [place] [address] Orthopedics 07/19/15 Bryanna Adan MD [address] [facility] [place] [address] Physician Hematology/Oncology 07/06/20 Chelle Marin APRN.LAMBSKIN TRIMMER [address] [facility] [place] [address] Nurse Practitioner Hematology/Oncology 07/06/20 Babatunde Pizarro MD [address] [facility] [place] [address] Radiation Oncology 07/07/20 Sharla De Oliveira MD [address] [place] [phone] Cardiology 05/18/22 Histology Technician Relationship Specialty Start Date End Date Jasmyne Casillas CNP [address] [facility] [place] [address] PCP - General Family Medicine 04/06/21 Vahe Gottlieb MD [address] [place] [address] Cardiology 10/14/13 Tuan Inman Jr., MD [address] [place] [address] Orthopedics 07/19/15 Chelle Marin, SWING FRAME GRINDER OPERATOR.LAMBSKIN TRIMMER [address] [place] [address] Nurse Practitioner Hematology/Oncology 07/06/20 Babatunde Pizarro MD [address] [place] [address] Radiation Oncology 07/07/20 Sharla De Oliveira MD [address] [place] [address] [place] [address] Cardiology 05/18/22 Histology Technician Relationship Specialty Start Date End Date Jasmyne Casillas LAMBSKIN TRIMMER [address] [place] [address] PCP - General Family Medicine 04/06/21 Vahe Gottlieb MD [address] [place] [address] Cardiology 10/14/13 Tuan Inman Jr., MD [address] [place] [phone] Orthopedics 07/19/15 Chelle Marin, SWING FRAME GRINDER OPERATOR.LAMBSKIN TRIMMER [address] [place] [address] Nurse Practitioner Hematology/Oncology 07/06/20 Babatunde Pizarro MD [address] [facility] [place] [address] Radiation Oncology 07/07/20 Sharla De Oliveira MD [address] [facility] [place] [address] Cardiology 05/18/22 Histology Technician Relationship Specialty Start Date End Date Jasmyne Casillas, LAMBSKIN TRIMMER [address] [facility] [place] [address] PCP - General Family Medicine 04/06/21 Vahe Gottlieb MD [address] [facility] [place] [address] Cardiology 10/14/13 Tuan Inman Jr., MD [address] [place] [address] Orthopedics 07/19/15 Chelle Marin APRN.LAMBSKIN TRIMMER [address] [place] [address] Nurse Practitioner Hematology/Oncology 07/06/20 Babatunde Pizarro MD [address] [place] [address] Radiation Oncology 07/07/20 Sharla De Oliveira MD [address] [facility] [place] [address] Cardiology 05/18/22 Histology Technician Relationship Specialty Start Date End Date Jasmyne Casillas, LAMBSKIN TRIMMER [address] [facility] [place] [address] PCP - General Family Medicine 04/06/21 Vahe Gottlieb MD [address] [place] [address] Cardiology 10/14/13 Tuan Inman Jr., MD [address] [place] [address] Orthopedics 07/19/15 Chelle Marin, SWING FRAME GRINDER OPERATOR.LAMBSKIN TRIMMER [address] [facility] [place] [address] Nurse Practitioner Hematology/Oncology 07/06/20 Babatunde Pizarro MD [address] [facility] [place] [address] Radiation Oncology 07/07/20 Sharla De Oliveira MD [address] [place] [phone] Cardiology 05/18/22 Histology Technician Relationship Specialty Start Date End Date Jasmyne Casillas LAMBSKIN TRIMMER [address] [facility] [place] [address] PCP - General Family Medicine 04/06/21 Vahe Gottlieb MD [address] [place] [address] Cardiology 10/14/13 Tuan Inman Jr., MD [address] [place] [address] Orthopedics 07/19/15 Chelle Marin, SWING FRAME GRINDER OPERATOR.LAMBSKIN TRIMMER [address] [facility] [place] [address] Nurse Practitioner Hematology/Oncology 07/06/20 Babatunde Pizarro MD [address] [facility] [place] [address] Radiation Oncology 07/07/20 Sharla De Oliveira MD [address] [place] [phone] Cardiology 05/18/22 Histology Technician Relationship Specialty Start Date End Date Soraida Sethi MD [address] [place] [address] PCP - General Family Medicine 01/15/23 Histology Technician Relationship Specialty Start Date End Date Jasmyne Casillas LAMBSKIN TRIMMER [address] [place] [id number] PCP - General Family Medicine 04/06/21 Vahe Gottlieb MD [address] [place] [address] Cardiology 10/14/13 Tuan Imnan Jr., MD [address] [place] [address] Orthopedics 07/19/15 Chelle Marin, ALYSSA.LAMBSKIN TRIMMER [address] [place] [address] Nurse Practitioner Hematology/Oncology 07/06/20 Babatunde Pizarro MD [address] [place] [address] Radiation Oncology 07/07/20 Sharla De Oliveira MD [address] [facility] [place] [address] Cardiology 05/18/22 Histology Technician Relationship Specialty Start Date End Date Jasmyne Casillas CNP [address] [facility] [place] [address] PCP - General Family Medicine 04/06/21 Vahe Gottlieb MD [address] [place] [address] Cardiology 10/14/13 Tuan Inman Jr., MD [address] [place] [address] Orthopedics 07/19/15 Chelle Marin APRN.LAMBSKIN TRIMMER [address] [place] [address] Nurse Practitioner Hematology/Oncology 07/06/20 Babatunde Pizarro MD [address] [place] [address] Radiation Oncology 07/07/20 Sharla De Oliveira MD [address] [facility] [place] [address] Cardiology 05/18/22 Histology Technician Relationship Specialty Start Date End Date Jasmyne Casillas CNP [address] [place] [address] PCP - General Family Medicine 04/06/21 Vahe Gottlieb MD [address] [place] [address] Cardiology 10/14/13 Tuan Inman Jr., MD [address] [place] [address] Orthopedics 07/19/15 Chelle Marin APRN.LAMBSKIN TRIMMER [address] [place] [address] Nurse Practitioner Hematology/Oncology 07/06/20 Babatunde Pizarro MD [address] [place] [address] Radiation Oncology 07/07/20 Sharla De Oliveira MD [address] [place] [address] Cardiology 05/18/22 Histology Technician Relationship Specialty Start Date End Date Soraida Sethi MD [address] [place] [address] PCP - General Family Medicine 01/15/23 Source Comments (unrecognize d section and content) In the event this informatio n is protected by the [facility] Confidentiality of Alcohol and Drug Abuse Patient Records regulations: The Federal rules restrict any use of the information to criminally investigate or prosecute any alcohol or drug abuse patient.[facility] HamiltonIn the event this information is protected by the Federal Confidentiality of Alcohol and Drug Abuse Patient Records regulations: The Federal rules restrict any use of the information to criminally investigate or prosecute any alcohol or drug abuse patient.[facility] HamiltonIn the event this information is protected by the Federal Confidentiality of Alcohol and Drug Abuse Patient Records regulations: The Federal rules restrict any use of the information to criminally investigate or prosecute any alcohol or drug abuse patient.[facility] HamiltonIn the event this information is protected by the Federal Confidentiality of Alcohol and Drug Abuse Patient Records regulations: The Federal rules restrict any use of the information to criminally investigate or prosecute any alcohol or drug abuse patient.[facility] HamiltonIn the event this information is protected by the Federal Confidentiality of Alcohol and Drug Abuse Patient Records regulations: The Federal rules restrict any use of the information to criminally investigate or prosecute any alcohol or drug abuse patient.[facility] HamiltonIn the event this information is protected by the Federal Confidentiality of Alcohol and Drug Abuse Patient Records regulations: The Federal rules restrict any use of the information to criminally investigate or prosecute any alcohol or drug abuse patient.[facility] HamiltonIn the event this information is protected by the Federal Confidentiality of Alcohol and Drug Abuse Patient Records regulations: The Federal rules restrict any use of the information to criminally investigate or prosecute any alcohol or drug abuse patient.[facility] HamiltonIn the event this information is protected by the Federal Confidentiality of Alcohol and Drug Abuse Patient Records regulations: The Federal rules restrict any use of the information to criminally investigate or prosecute any alcohol or drug abuse patient.[facility] HamiltonIn the event this information is protected by the Federal Confidentiality of Alcohol and Drug Abuse Patient Records regulations: The Federal rules restrict any use of the information to criminally investigate or prosecute any alcohol or drug abuse patient.[facility] HamiltonIn the event this information is protected by the Federal Confidentiality of Alcohol and Drug Abuse Patient Records regulations: The Federal rules restrict any use of the information to criminally investigate or prosecute any alcohol or drug abuse patient.[facility] HamiltonIn the event this information is protected by the Federal Confidentiality of Alcohol and Drug Abuse Patient Records regulations: The Federal rules restrict any use of the information to criminally investigate or prosecute any alcohol or drug abuse patient.[facility] HamiltonIn the event this information is protected by the Federal Confidentiality of Alcohol and Drug Abuse Patient Records regulations: The Federal rules restrict any use of the information to criminally investigate or prosecute any alcohol or drug abuse patient.[facility] HamiltonIn the event this information is protected by the Federal Confidentiality of Alcohol and Drug Abuse Patient Records regulations: The Federal rules restrict any use of the information to criminally investigate or prosecute any alcohol or drug abuse patient.[facility] HamiltonIn the event this information is protected by the Federal Confidentiality of Alcohol and Drug Abuse Patient Records regulations: The Federal rules restrict any use of the information to criminally investigate or prosecute any alcohol or drug abuse patient.[facility] HamiltonIn the event this information is protected by the Federal Confidentiality of Alcohol and Drug Abuse Patient Records regulations: The Federal rules restrict any use of the information to criminally investigate or prosecute any alcohol or drug abuse patient.[facility] HamiltonIn the event this information is protected by the Federal Confidentiality of Alcohol and Drug Abuse Patient Records regulations: The Federal rules restrict any use of the information to criminally investigate or prosecute any alcohol or drug abuse patient.[facility] HamiltonIn the event this information is protected by the Federal Confidentiality of Alcohol and Drug Abuse Patient Records regulations: The Federal rules restrict any use of the information to criminally investigate or prosecute any alcohol or drug abuse patient.[facility]In the event this information is protected by the Federal Confidentiality of Alcohol and Drug Abuse Patient Records regulations: The Federal rules restrict any use of the information to criminally investigate or prosecute any alcohol or drug abuse patient.[facility] HamiltonIn the event this information is protected by the Federal Confidentiality of Alcohol and Drug Abuse Patient Records regulations: The Federal rules restrict any use of the information to criminally investigate or prosecute any alcohol or drug abuse patient.[facility] HamiltonIn the event this information is protected by the Federal Confidentiality of Alcohol and Drug Abuse Patient Records regulations: The Federal rules restrict any use of the information to criminally investigate or prosecute any alcohol or drug abuse patient.[facility] HamiltonIn the event this information is protected by the Federal Confidentiality of Alcohol and Drug Abuse Patient Records regulations: The Federal rules restrict any use of the information to criminally investigate or prosecute any alcohol or drug abuse patient.[facility] HamiltonIn the event this information is protected by the Federal Confidentiality of Alcohol and Drug Abuse Patient Records regulations: The Federal rules restrict any use of the information to criminally investigate or prosecute any alcohol or drug abuse patient.[facility] HamiltonIn the event this information is protected by the Federal Confidentiality of Alcohol and Drug Abuse Patient Records regulations: The Federal rules restrict any use of the information to criminally investigate or prosecute any alcohol or drug abuse patient.[facility] HamiltonIn the event this information is protected by the Federal Confidentiality of Alcohol and Drug Abuse Patient Records regulations: The Federal rules restrict any use of the information to criminally investigate or prosecute any alcohol or drug abuse patient.[facility] HamiltonIn the event this information is protected by the Federal Confidentiality of Alcohol and Drug Abuse Patient Records regulations: The Federal rules restrict any use of the information to criminally investigate or prosecute any alcohol or drug abuse patient.[facility] HamiltonIn the event this information is protected by the Federal Confidentiality of Alcohol and Drug Abuse Patient Records regulations: The Federal rules restrict any use of the information to criminally investigate or prosecute any alcohol or drug abuse patient.[facility] HamiltonIn the event this information is protected by the Federal Confidentiality of Alcohol and Drug Abuse Patient Records regulations: The Federal rules restrict any use of the information to criminally investigate or prosecute any alcohol or drug abuse patient.[facility] HamiltonIn the event this information is protected by the Federal Confidentiality of Alcohol and Drug Abuse Patient Records regulations: The Federal rules restrict any use of the information to criminally investigate or prosecute any alcohol or drug abuse patient.[facility] HamiltonIn the event this information is protected by the Federal Confidentiality of Alcohol and Drug Abuse Patient Records regulations: The Federal rules restrict any use of the information to criminally investigate or prosecute any alcohol or drug abuse patient.[facility] HamiltonIn the event this information is protected by the Federal Confidentiality of Alcohol and Drug Abuse Patient Records regulations: The Federal rules restrict any use of the information to criminally investigate or prosecute any alcohol or drug abuse patient.[facility] HamiltonIn the event this information is protected by the Federal Confidentiality of Alcohol and Drug Abuse Patient Records regulations: The Federal rules restrict any use of the information to criminally investigate or prosecute any alcohol or drug abuse patient.[facility] HamiltonIn the event this information is protected by the Federal Confidentiality of Alcohol and Drug Abuse Patient Records regulations: The Federal rules restrict any use of the information to criminally investigate or prosecute any alcohol or drug abuse patient.[facility] HamiltonIn the event this information is protected by the Federal Confidentiality of Alcohol and Drug Abuse Patient Records regulations: The Federal rules restrict any use of the information to criminally investigate or prosecute any alcohol or drug abuse patient.[facility] HamiltonIn the event this information is protected by the Federal Confidentiality of Alcohol and Drug Abuse Patient Records regulations: The Federal rules restrict any use of the information to criminally investigate or prosecute any alcohol or drug abuse patient.[facility] HamiltonIn the event this information is protected by the Federal Confidentiality of Alcohol and Drug Abuse Patient Records regulations: The Federal rules restrict any use of the information to criminally investigate or prosecute any alcohol or drug abuse patient.[facility] HamiltonIn the event this information is protected by the Federal Confidentiality of Alcohol and Drug Abuse Patient Records regulations: The Federal rules restrict any use of the information to criminally investigate or prosecute any alcohol or drug abuse patient.[facility] HamiltonIn the event this information is protected by the Federal Confidentiality of Alcohol and Drug Abuse Patient Records regulations: The Federal rules restrict any use of the information to criminally investigate or prosecute any alcohol or drug abuse patient.[facility] HamiltonIn the event this information is protected by the Federal Confidentiality of Alcohol and Drug Abuse Patient Records regulations: The Federal rules restrict any use of the information to criminally investigate or prosecute any alcohol or drug abuse patient.[facility] HamiltonIn the event this information is protected by the Federal Confidentiality of Alcohol and Drug Abuse Patient Records regulations: The Federal rules restrict any use of the information to criminally investigate or prosecute any alcohol or drug abuse patient.[facility] HamiltonIn the event this information is protected by the Federal Confidentiality of Alcohol and Drug Abuse Patient Records regulations: The Federal rules restrict any use of the information to criminally investigate or prosecute any alcohol or drug abuse patient.[facility] HamiltonIn the event this information is protected by the Federal Confidentiality of Alcohol and Drug Abuse Patient Records regulations: The Federal rules restrict any use of the information to criminally investigate or prosecute any alcohol or drug abuse patient.[facility] HamiltonIn the event this information is protected by the Federal Confidentiality of Alcohol and Drug Abuse Patient Records regulations: The Federal rules restrict any use of the information to criminally investigate or prosecute any alcohol or drug abuse patient.[facility] HamiltonIn the event this information is protected by the Federal Confidentiality of Alcohol and Drug Abuse Patient Records regulations: The Federal rules restrict any use of the information to criminally investigate or prosecute any alcohol or drug abuse patient.[facility] HamiltonIn the event this information is protected by the Federal Confidentiality of Alcohol and Drug Abuse Patient Records regulations: The Federal rules restrict any use of the information to criminally investigate or prosecute any alcohol or drug abuse patient.[facility] HamiltonIn the event this information is protected by the Federal Confidentiality of Alcohol and Drug Abuse Patient Records regulations: The Federal rules restrict any use of the information to criminally investigate or prosecute any alcohol or drug abuse patient.[facility] HamiltonIn the event this information is protected by the Federal Confidentiality of Alcohol and Drug Abuse Patient Records regulations: The Federal rules restrict any use of the information to criminally investigate or prosecute any alcohol or drug abuse patient.[facility] HamiltonIn the event this information is protected by the Federal Confidentiality of Alcohol and Drug Abuse Patient Records regulations: The Federal rules restrict any use of the information to criminally investigate or prosecute any alcohol or drug abuse patient.[facility] HamiltonIn the event this information is protected by the Federal Confidentiality of Alcohol and Drug Abuse Patient Records regulations: The Federal rules restrict any use of the information to criminally investigate or prosecute any alcohol or drug abuse patient.[facility] HamiltonIn the event this information is protected by the Federal Confidentiality of Alcohol and Drug Abuse Patient Records regulations: The Federal rules restrict any use of the information to criminally investigate or prosecute any alcohol or drug abuse patient.[facility] HamiltonIn the event this information is protected by the Federal Confidentiality of Alcohol and Drug Abuse Patient Records regulations: The Federal rules restrict any use of the information to criminally investigate or prosecute any alcohol or drug abuse patient.[facility] HamiltonIn the event this information is protected by the Federal Confidentiality of Alcohol and Drug Abuse Patient Records regulations: The Federal rules restrict any use of the information to criminally investigate or prosecute any alcohol or drug abuse patient.[facility] HamiltonIn the event this information is protected by the Federal Confidentiality of Alcohol and Drug Abuse Patient Records regulations: The Federal rules restrict any use of the information to criminally investigate or prosecute any alcohol or drug abuse patient.[facility] HamiltonIn the event this information is protected by the Federal Confidentiality of Alcohol and Drug Abuse Patient Records regulations: The Federal rules restrict any use of the information to criminally investigate or prosecute any alcohol or drug abuse patient.[facility] HamiltonIn the event this information is protected by the Federal Confidentiality of Alcohol and Drug Abuse Patient Records regulations: The Federal rules restrict any use of the information to criminally investigate or prosecute any alcohol or drug abuse patient.[facility] HamiltonIn the event this information is protected by the Federal Confidentiality of Alcohol and Drug Abuse Patient Records regulations: The Federal rules restrict any use of the information to criminally investigate or prosecute any alcohol or drug abuse patient.[facility] HamiltonIn the event this information is protected by the Federal Confidentiality of Alcohol and Drug Abuse Patient Records regulations: The Federal rules restrict any use of the information to criminally investigate or prosecute any alcohol or drug abuse patient.[facility] HamiltonIn the event this information is protected by the Federal Confidentiality of Alcohol and Drug Abuse Patient Records regulations: The Federal rules restrict any use of the information to criminally investigate or prosecute any alcohol or drug abuse patient.[facility] HamiltonIn the event this information is protected by the Federal Confidentiality of Alcohol and Drug Abuse Patient Records regulations: The Federal rules restrict any use of the information to criminally investigate or prosecute any alcohol or drug abuse patient.[facility] HamiltonIn the event this information is protected by the Federal Confidentiality of Alcohol and Drug Abuse Patient Records regulations: The Federal rules restrict any use of the information to criminally investigate or prosecute any alcohol or drug abuse patient.[facility] HamiltonIn the event this information is protected by the Federal Confidentiality of Alcohol and Drug Abuse Patient Records regulations: The Federal rules restrict any use of the information to criminally investigate or prosecute any alcohol or drug abuse patient.[facility] HamiltonIn the event this information is protected by the Federal Confidentiality of Alcohol and Drug Abuse Patient Records regulations: The Federal rules restrict any use of the information to criminally investigate or prosecute any alcohol or drug abuse patient.[facility] HamiltonIn the event this information is protected by the Federal Confidentiality of Alcohol and Drug Abuse Patient Records regulations: The Federal rules restrict any use of the information to criminally investigate or prosecute any alcohol or drug abuse patient.[facility] HamiltonIn the event this information is protected by the Federal Confidentiality of Alcohol and Drug Abuse Patient Records regulations: The Federal rules restrict any use of the information to criminally investigate or prosecute any alcohol or drug abuse patient.[facility] HamiltonIn the event this information is protected by the Federal Confidentiality of Alcohol and Drug Abuse Patient Records regulations: The Federal rules restrict any use of the information to criminally investigate or prosecute any alcohol or drug abuse patient.[facility] HamiltonIn the event this information is protected by the Federal Confidentiality of Alcohol and Drug Abuse Patient Records regulations: The Federal rules restrict any use of the information to criminally investigate or prosecute any alcohol or drug abuse patient.[facility] HamiltonIn the event this information is protected by the Federal Confidentiality of Alcohol and Drug Abuse Patient Records regulations: The Federal rules restrict any use of the information to criminally investigate or prosecute any alcohol or drug abuse patient.[facility] HamiltonIn the event this information is protected by the Federal Confidentiality of Alcohol and Drug Abuse Patient Records regulations: The Federal rules restrict any use of the information to criminally investigate or prosecute any alcohol or drug abuse patient.[facility] Goals (unrecognized section and content) Goals may be documented in a n alternate section FOR RECORDS PERTAINING TO PATIENTS WHO ARE OR HAVE BEEN ENROLLED IN A CHEMICAL DEPENDENCY/SUBSTANCEABUSE PROGRAM, SOME INFORMATION MAY BE OMITTED. This clinical summary was aggregated from multiple sources. Caution should be exercised in using it in the provision of clinical care. This summary normalizes information from multiple sources, and as a consequence, information in this document may materially change the coding, format and clinical context of patient data. In addition, data may be omitted in some cases. CLINICAL DECISIONS SHOULD BE BASED ON THE PRIMARY CLINICAL RECORDS. [facility] [employer] [facility] provides no warranty or guarantee of the accuracy or completeness of information in this document.
[2025-04-07 11:10] LABS: Hematocrit 25.1 % (36.0-48.0); Hemoglobin 7.7 g/dL (12.0-16.0); Immature Granulocytes Abs Auto 0.01 10^3/uL (0.00-0.03); Immature Granulocytes Pct Auto 0.1 % (0.0-0.5); Lymphocytes Absolute Auto 1.8 10^3/uL (1.2-3.8); Mean Corpuscular HGB Conc 30.7 g/dL (29.9-35.2); Mean Corpuscular Hemoglobin 24.4 pg (26.7-34.0); Mean Corpuscular Volume 79.7 fL (81.0-99.0); Platelet Count 231 10^3/uL (150-450); Red Blood Count 3.15 10^6/uL (4.20-5.40); White Blood Count 6.8 10^3/uL (4.0-11.0)
[2025-04-07 11:15] LABS: Protein Creatinine Ratio Urine 0.21; Total Protein Urine Random 11.2 mg/dL (<=11.9)
[2025-04-07 11:17] LABS: Anion Gap 15.1; Blood Urea Nitrogen 32.0 mg/dL (7.0-18.0); Calcium 9.0 mg/dL (8.5-10.1); Carbon Dioxide 26.5 mmol/L (21.0-32.0); Chloride 106 mmol/L (98-107); Estimated GFR (African America 52 (>=60 mL/min/1.73m^2); Estimated GFR (Non-African Ame 43 (>=60 mL/min/1.73m^2); Glucose 104 mg/dL (74-106); Potassium 3.6 mmol/L (3.5-5.1); Sodium 144 mmol/L (136-145)
== END 2025-04-07 10:40 | disposition home or self-care (01) ==
LOC: LAB 10:42
PROVIDERS: PCP Nurse Practitioner Primary Care
DX: N18.30 Chronic kidney disease, stage 3 unspecified (principal)
CPT/HCPCS: 36415; 80048; 82306; 82570; 83970; 84100; 84156; 85025

== ENCOUNTER 2025-04-29 10:26 | Outpatient (RCR) | payer MEDICARE, OTHER, SELFPAY ==
[2025-04-27 12:02] LABS: Hematocrit 26.2 % (36.0-48.0); Hemoglobin 7.8 g/dL (12.0-16.0)
[2025-04-29] VITALS (8 sets, daily range): BP systolic 113–142; BP diastolic 51–78; PULSE 57–66; TEMP 36.3–36.5; O2SAT 95–99
[2025-04-29] MEDS: 0.9 % SODIUM CHLORIDE 250 ML 500 ML IV (10:47)
[2025-04-29] MEDS: DIPHENHYDRAMINE HCL 25 MG CAPSULE PO (10:48)
[2025-04-29] MEDS: ACETAMINOPHEN 325 MG TABLET 650 MG PO (10:48)
[2025-04-29] MEDS: BUMETANIDE 1 MG/4 ML VIAL 0.5 MG IVP (12:53)
== END 2025-04-29 23:59 | disposition home or self-care (01) ==
LOC: LAB 10:26
PROVIDERS: PCP Nurse Practitioner Primary Care; Visit Provider Internal Medicine Hematology & Oncology
DX: Z51.81 Encounter for therapeutic drug level monitoring (principal); D50.9 Iron deficiency anemia, unspecified
CPT/HCPCS: 36415; 36430; 85014; 85018; 86850; 86900; 86901; 86923; P9016